=== PATIENT | male | born 1970 | race Caucasian/White ===

== ENCOUNTER 2016-11-30 12:59 | Emergency (ER) | payer MEDICAID, OTHER ==
[~2016-11-30] VITALS: Ht 190.5 cm; Wt 106.6 kg
[2016-11-30] MEDS ORDERED: NS 1,000 ML IV ONE (15:00)
[2016-11-30] MEDS ORDERED: KETOROLAC 30 MG/ML VIAL (J1885) IV ONE (15:00)
[2016-11-30] MEDS ORDERED: ONDANSETRON 4MG/2ML VIAL (J2405) IV ONE (15:00)
[2016-11-30 15:10] LABS: BASO % 0.7 % (0.0-1.0); EOS # 0.2 K/mm3 (0.0-0.50); EOS % 2.1 % (0.0-3.0); LARGE UNSTAINED CELL # 0.1 K/mm3 (0.0-0.4); LARGE UNSTAINED CELL % 0.8 % (0.0-4.0); LYMPH # 2.1 K/mm3 (1.5-4.5); LYMPH % 25.6 % (24.0-44.0); MEAN CORPUSCULAR HGB CONC 35.7 g/dl (32.0-36.5); MEAN CORPUSCULAR VOLUME 92.4 fl (80.0-96.0); MONO # 0.5 K/mm3 (0.0-0.8); MONO % 5.9 % (0.0-5.0); NEUTROPHILS # 5.1 K/mm3 (1.8-7.7); NEUTROPHILS % 64.9 % (36.0-66.0); PLATELET COUNT, AUTOMATED 282 k/mm3 (150-450); RED CELL DISTRIBUTION WIDTH 12.6 % (11.5-14.5); WHITE BLOOD COUNT 7.8 K/mm3 (4.0-10.0)
[2016-11-30 15:58] LABS: ALBUMIN 3.6 GM/DL (3.2-5.2); ALBUMIN/GLOBULIN RATIO 0.78 (1.00-1.93); ALKALINE PHOSPHATASE 75 U/L (45-117); AMYLASE 30 U/L (25-115); ANION GAP 17 MEQ/L (8-16); AST/SGOT 66 U/L (15-37); BILIRUBIN,DIRECT < 0.1 MG/DL (0.0-0.2); BLOOD UREA NITROGEN 8 MG/DL (7-18); CALCIUM LEVEL 8.2 MG/DL (8.5-10.1); CARBON DIOXIDE LEVEL 20 MEQ/L (21-32); CHLORIDE LEVEL 97 MEQ/L (98-107); GLOMERULAR FILTRATION RATE > 60.0 (>60); GLUCOSE, FASTING 118 MG/DL (70-105); POTASSIUM SERUM 3.8 MEQ/L (3.5-5.1); SODIUM LEVEL 134 MEQ/L (136-145); TOTAL PROTEIN 8.2 GM/DL (6.4-8.2)
[2016-11-30 16:33] LABS: ALT/SGPT 102 U/L (12-78)
[2016-11-30] MEDS ORDERED: ZOFR4TAB3 PO (17:12)
[2016-11-30 17:27] VITALS: BP 162/88
--- NOTE | 2016-12-01 12:31 | ECGEPIP ---
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
== END 2016-11-30 17:41 | disposition home or self-care (01) ==
LOC: M ED 15:10
DX: R10.84 Generalized abdominal pain (principal); R11.2 Nausea with vomiting, unspecified; R19.7 Diarrhea, unspecified; F10.20 Alcohol dependence, uncomplicated; F17.210 Nicotine dependence, cigarettes, uncomplicated
CPT/HCPCS: 80048; 80076; 81001; 82150; 82550; 82553; 83690; 85025; 93005; 96374; 96375; 99283; J1885; J2405

== ENCOUNTER → 2018-06-27 | Outpatient (REF) | payer SELFPAY, MEDICAID ==
[2018-06-27 12:22] LABS: ANION GAP 9 MEQ/L (8-16); BLOOD UREA NITROGEN 10 MG/DL (7-18); CALCIUM LEVEL 8.7 MG/DL (8.5-10.1); CARBON DIOXIDE LEVEL 29 MEQ/L (21-32); CHLORIDE LEVEL 99 MEQ/L (98-107); CHOLESTEROL LEVEL 250 MG/DL (<200); CHOLESTEROL RISK RATIO 5.681 (<5); GLOMERULAR FILTRATION RATE > 60.0 (>60); GLUCOSE, FASTING 92 MG/DL (70-100); HDL CHOLESTEROL 44 MG/DL (>40); LDL CHOLESTEROL 153 MG/DL (<100); NON-HDL-C 206 MG/DL; POTASSIUM SERUM 3.9 MEQ/L (3.5-5.1); SODIUM LEVEL 137 MEQ/L (136-145); TRIGLYCERIDES LEVEL 264 MG/DL (<150)
[2018-06-27 12:31] LABS: TOTAL 25(OH) VITAMIN D 11.5 NG/ML (30.0-100.0)
[2018-06-27 12:38] LABS: MALB URINE SIEMENS 27.9 MG/L
[2018-06-27 12:41] LABS: MAU/CREAT RATIO 19.1 MCG/MG (0.0-30.0)
== END ==
LOC: M SFHCPLAZ 08:58
DX: E55.9 Vitamin D deficiency, unspecified (principal); Z13.220 Encounter for screening for lipoid disorders; I10 Essential (primary) hypertension
CPT/HCPCS: 82306

== ENCOUNTER 2018-07-27 11:55 | Emergency (ER) | payer MEDICAID, OTHER, SELFPAY ==
[~2018-07-27] VITALS: Ht 190.5 cm; Wt 101.6 kg
[~2018-07-27 11:55] MED LIST: ZOFR4TAB14 PO
[2018-07-27] MEDS ORDERED: CHLO125TA PO (12:09)
[2018-07-27] MEDS ORDERED: MORPHINE 10 MG/ML 1ML VIAL (J2270) IM ONE (12:15)
[2018-07-27] MEDS ORDERED: PERC5TAB12 PO (12:46)
[2018-07-27 12:55] VITALS: BP 147/97
--- NOTE | 2018-07-27 14:59 | REP ---
LEFT RIB SERIES: Five views of left ribs performed. There is a nondisplaced fracture of the lateral left 7th rib. No other fracture or bone lesion is seen. An accompanying view of the chest demonstrates mild discoid atelectasis in the lung bases without infiltrate, pneumothorax, or pleural effusion. Heart is not enlarged. IMPRESSION: Nondisplaced fracture anterolateral left 7th rib. Electronically Signed by Charles Max MD 07/27/2018 08:04 P
[2018-07-29] MEDS ORDERED: LISI-542 PO (20:58)
[2018-07-29] MEDS ORDERED: NAPR-50 PO (20:59)
== END 2018-07-27 12:58 | disposition home or self-care (01) ==
LOC: M ED 11:55
DX: S22.39XA Fracture of one rib, unspecified side, initial encounter for closed fracture (principal); W19.XXXA Unspecified fall, initial encounter; I10 Essential (primary) hypertension; F17.210 Nicotine dependence, cigarettes, uncomplicated
CPT/HCPCS: 71101; 94010; 96372; 99284; J2270

== ENCOUNTER 2018-07-29 15:36 | Emergency (ER) | payer SELFPAY, OTHER, MEDICAID ==
[2018-07-29] MEDS: MORPHINE 10 MG/ML 1ML VIAL (J2270) IM (16:41)
[2018-07-29 17:31] LABS: BASO # 0.1 10^3/uL (0.0-0.2); BASO % 0.5 % (0.0-1.0); EOS % 0.3 % (0.0-3.0); HEMOGLOBIN 17.3 g/dl (13.5-17.5); IMMATURE GRANULOCYTE % 0.4 % (0-3.0); LYMPH # 2.4 10^3/uL (1.5-4.5); MEAN CORPUSCULAR HEMOGLOBIN 32.5 pg (27.0-33.0); MEAN CORPUSCULAR VOLUME 90.1 fl (80.0-96.0); MONO # 0.9 10^3/uL (0.0-0.8); MONO % 9.1 % (0.0-5.0); NEUTROPHILS # 6.5 10^3/uL (1.8-7.7); NEUTROPHILS % 65.7 % (36.0-66.0); PLATELET COUNT, AUTOMATED 101 10^3/uL (150-450); RED BLOOD COUNT 5.33 10^6/uL (4.30-6.10); RED CELL DISTRIBUTION WIDTH 11.7 % (11.5-14.5); WHITE BLOOD COUNT 9.9 10^3/uL (4.0-10.0)
[2018-07-29 17:42] LABS: INR 1.13; PROTHROMBIN TIME 14.7 SECONDS (12.1-14.4)
[2018-07-29 17:43] LABS: PARTIAL THROMBOPLASTIN TIME 34.4 SECONDS (25.4-37.6)
[2018-07-29 17:45] LABS: D-DIMER QUANT 3156.83 ng/ml (<500)
[2018-07-29 18:04] LABS: ANION GAP 15 MEQ/L (8-16); BLOOD UREA NITROGEN 10 MG/DL (7-18); CALCIUM LEVEL 8.9 MG/DL (8.5-10.1); CARBON DIOXIDE LEVEL 29 MEQ/L (21-32); CHLORIDE LEVEL 84 MEQ/L (98-107); CPK CREATINE PHOSPHOKINASE 262 U/L (39-308); CREATININE FOR GFR 1.13 MG/DL (0.70-1.30); GLOMERULAR FILTRATION RATE > 60.0 (>60); GLUCOSE, FASTING 117 MG/DL (70-100); MB/CK RELATIVE INDEX 1.22 (< OR =4); POTASSIUM SERUM 2.5 MEQ/L (3.5-5.1); SODIUM LEVEL 128 MEQ/L (136-145); TROPONIN I < 0.02 NG/ML (< 0.10)
[2018-07-29] MEDS ORDERED: ISOVUE-370 76% 100ML VIAL (Q9967) As Ordered (18:28)
[2018-07-29] MEDS: NS 1,000 ML IV (18:32)
[2018-07-29] MEDS: KCL 10MEQ/100ML SWI (KRUN) 10 MEQ in APPROPRIATE DILUENT 1 EA IV (18:32)
[2018-07-29 18:51] LABS: ALBUMIN 3.7 GM/DL (3.2-5.2); ALBUMIN/GLOBULIN RATIO 0.74 (1.00-1.93); ALKALINE PHOSPHATASE 96 U/L (45-117); ALT/SGPT 66 U/L (12-78); AST/SGOT 96 U/L (7-37); BILIRUBIN,DIRECT 0.6 MG/DL (0.0-0.2); BILIRUBIN,TOTAL 1.6 MG/DL (0.2-1.0); MAGNESIUM LEVEL 1.5 MG/DL (1.8-2.4); TOTAL PROTEIN 8.7 GM/DL (6.4-8.2)
[2018-07-29] MEDS: POTASSIUM CHLORIDE 10 MEQ SR TABLET PO (19:28)
[2018-07-29 19:52] LABS: APPEARANCE, URINE CLEAR (CLEAR); BACTERIA, URINE AUTO NEGATIVE (NEGATIVE); BILIRUBIN, URINE AUTO NEGATIVE (NEGATIVE); BLOOD, URINE BLOOD NEGATIVE (NEGATIVE); COLOR, URINE YELLOW (YELLOW); GLUCOSE, URINE (UA) AUTO NEGATIVE (NEGATIVE); KETONE, URINE AUTO TRACE mg/dL (NEGATIVE); LEUKOCYTE ESTERASE, URINE AUTO NEGATIVE (NEGATIVE); NITRITE, URINE AUTO NEGATIVE (NEGATIVE); PROTEIN, URINE AUTO NEGATIVE (NEGATIVE); RBC, URINE AUTO 0 /HPF (0-3); SPECIFIC GRAVITY URINE AUTO 1.025 (1.002-1.035); SQUAMOUS EPITHELIAL CELL UR AU 0 /HPF (0-6); WBC, URINE AUTO 0 /HPF (0-3)
[2018-07-29] MEDS: MORPHINE 4 MG/ML 1ML VIAL/SYRINGE (J2270) IV (19:55)
== END 2018-07-29 21:39 | disposition home or self-care (01) ==
LOC: M ED 15:36
DX: R07.9 Chest pain, unspecified (principal); R91.1 Solitary pulmonary nodule; E87.1 Hypo-osmolality and hyponatremia; E87.6 Hypokalemia; S22.32XA Fracture of one rib, left side, initial encounter for closed fracture; W19.XXXA Unspecified fall, initial encounter; Y92.89 Other specified places as the place of occurrence of the external cause; F17.210 Nicotine dependence, cigarettes, uncomplicated
CPT/HCPCS: J2270

== ENCOUNTER 2018-08-02 16:28 | Emergency (ER) | payer SELFPAY ==
[~2018-08-02] VITALS: Ht 190.5 cm; Wt 100.0 kg
[~2018-08-02 16:28] MED LIST changes: +CHLO125TA PO; +LISI-542 PO; +NAPR-49 PO; +PERC5TAB12 PO
[2018-08-02 17:05] LABS: BASO # 0.1 10^3/uL (0.0-0.2); BASO % 0.9 % (0.0-1.0); EOS # 0.1 10^3/uL (0.0-0.50); EOS % 1.7 % (0.0-3.0); HEMATOCRIT 42.8 % (42.0-52.0); HEMOGLOBIN 15.5 g/dl (13.5-17.5); LYMPH # 3.1 10^3/uL (1.5-4.5); LYMPH % 46.3 % (24.0-44.0); MEAN CORPUSCULAR HEMOGLOBIN 33.1 pg (27.0-33.0); MEAN CORPUSCULAR HGB CONC 36.2 g/dl (32.0-36.5); MEAN CORPUSCULAR VOLUME 91.5 fl (80.0-96.0); MONO # 0.8 10^3/uL (0.0-0.8); MONO % 11.6 % (0.0-5.0); NEUTROPHILS # 2.6 10^3/uL (1.8-7.7); NEUTROPHILS % 39.2 % (36.0-66.0); PLATELET COUNT, AUTOMATED 116 10^3/uL (150-450); RED BLOOD COUNT 4.68 10^6/uL (4.30-6.10); WHITE BLOOD COUNT 6.7 10^3/uL (4.0-10.0)
[2018-08-02 17:31] LABS: BLOOD UREA NITROGEN 9 MG/DL (7-18); CALCIUM LEVEL 8.1 MG/DL (8.5-10.1); CARBON DIOXIDE LEVEL 27 MEQ/L (21-32); CHLORIDE LEVEL 92 MEQ/L (98-107); CREATININE FOR GFR 0.87 MG/DL (0.70-1.30); GLOMERULAR FILTRATION RATE > 60.0 (>60); GLUCOSE, FASTING 108 MG/DL (70-100); POTASSIUM SERUM 2.8 MEQ/L (3.5-5.1); SODIUM LEVEL 131 MEQ/L (136-145)
[2018-08-02] MEDS ORDERED: POTASSIUM CHLORIDE 10 MEQ SR TABLET PO ONE ×2 (17:45→21:45)
[2018-08-02 17:47] LABS: MAGNESIUM LEVEL 1.7 MG/DL (1.8-2.4)
[2018-08-02] MEDS ORDERED: MAGNESIUM OXIDE 400 MG TAB (MAG-OX) PO ONE ×2 (18:30→21:45)
[2018-08-02 21:28] LABS: BLOOD UREA NITROGEN 8 MG/DL (7-18); CALCIUM LEVEL 8.6 MG/DL (8.5-10.1); CARBON DIOXIDE LEVEL 33 MEQ/L (21-32); CHLORIDE LEVEL 95 MEQ/L (98-107); CREATININE FOR GFR 0.83 MG/DL (0.70-1.30); GLOMERULAR FILTRATION RATE > 60.0 (>60); GLUCOSE, FASTING 86 MG/DL (70-100); MAGNESIUM LEVEL 1.6 MG/DL (1.8-2.4); POTASSIUM SERUM 3.2 MEQ/L (3.5-5.1); SODIUM LEVEL 137 MEQ/L (136-145)
[2018-08-02 21:34] VITALS: BP 131/91
[2018-08-02] MEDS ORDERED: K-TA10TA PO (21:40)
[2018-08-02] MEDS ORDERED: MAGN400T5 PO (21:40)
--- NOTE | 2018-08-03 13:12 | ECGEPIP ---
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
== END 2018-08-02 21:55 | disposition home or self-care (01) ==
LOC: M ED 16:28
DX: E87.6 Hypokalemia (principal); E83.42 Hypomagnesemia

== ENCOUNTER → 2018-08-02 | Outpatient (CLI) | payer SELFPAY ==
[2018-08-02 14:29] LABS: ANION GAP 11 MEQ/L (8-16); BLOOD UREA NITROGEN 11 MG/DL (7-18); CALCIUM LEVEL 8.6 MG/DL (8.5-10.1); CARBON DIOXIDE LEVEL 31 MEQ/L (21-32); CHLORIDE LEVEL 93 MEQ/L (98-107); CREATININE FOR GFR 1.02 MG/DL (0.70-1.30); GLOMERULAR FILTRATION RATE > 60.0 (>60); GLUCOSE, FASTING 100 MG/DL (70-100); POTASSIUM SERUM 2.8 MEQ/L (3.5-5.1); SODIUM LEVEL 135 MEQ/L (136-145)
== END ==
LOC: M LAB 13:17
DX: E87.6 Hypokalemia (principal); E83.42 Hypomagnesemia
CPT/HCPCS: 80048

== ENCOUNTER → 2018-08-29 | Outpatient (CLI) | payer SELFPAY ==
[~2018-08-29] MED LIST changes: +K-TA10TA PO; +MAGN400T5 PO; -NAPR-49 PO; +NAPR-50 PO
--- NOTE | 2018-08-30 04:45 | REP ---
Clinical: Elevated liver function tests. Technique: Max scale ultrasound using curved array transducer. Findings: The liver is increased echogenicity with poor through transmission suggesting fatty infiltration. No focal hepatic lesion identified. Pancreas is incompletely evaluated due to interposed bowel gas and subcentimeter pancreatic head cyst is suspected. The gallbladder is normal without gallstones, wall thickening or pericholecystic fluid. No biliary ductal dilatation is appreciated, and the common bile duct measures 6.2 mm diameter. The right kidney is normal in reniform shape without hydronephrosis and measures 12.6 x 7.0 x 6.4 cm. No ascites. Visualized portions of the abdominal aorta normal. Impression: 1. Diffuse fatty infiltration to the liver without focal hepatic lesion identified. 2. Limited evaluation of the pancreas with suspected subcentimeter pancreatic head cyst which is confirmed and unchanged when compared to MRI dated 12/14/2015. Electronically Signed by Mukund Ba MD 08/30/2018 04:37 A
== END ==
LOC: M RAD 07:44
PROVIDERS: ATTEND Student in an Organized Health Care Education/Training Program
DX: R93.2 Abnormal findings on diagnostic imaging of liver and biliary tract (principal); K76.0 Fatty (change of) liver, not elsewhere classified; R94.5 Abnormal results of liver function studies

== ENCOUNTER → 2018-09-06 | Outpatient (CLI) | payer SELFPAY ==
[2018-09-06 15:02] LABS: ALBUMIN 3.5 GM/DL (3.2-5.2); ALT/SGPT 30 U/L (12-78); BILIRUBIN,TOTAL 0.6 MG/DL (0.2-1.0); BLOOD UREA NITROGEN 7 MG/DL (7-18); CALCIUM LEVEL 8.5 MG/DL (8.5-10.1); CARBON DIOXIDE LEVEL 26 MEQ/L (21-32); CHLORIDE LEVEL 98 MEQ/L (98-107); CREATININE FOR GFR 0.82 MG/DL (0.70-1.30); FERRITIN 329 NG/ML (26-388); GLOMERULAR FILTRATION RATE > 60.0 (>60); GLUCOSE, FASTING 118 MG/DL (70-100); IRON (FE) 88 UG/DL (65-175); MAGNESIUM LEVEL 1.9 MG/DL (1.8-2.4); PERCENT SATURATION 26.3 % (19.7-50.0); POTASSIUM SERUM 3.7 MEQ/L (3.5-5.1); SODIUM LEVEL 134 MEQ/L (136-145); TOTAL IRON BINDING CAPACITY 334 UG/DL (250-450); TOTAL PROTEIN 7.8 GM/DL (6.4-8.2)
[2018-09-06 15:11] LABS: TOTAL 25(OH) VITAMIN D 67.5 NG/ML (30.0-100.0)
[2018-09-07 10:22] LABS: HEPATITIS B SURFACE ANTIGEN NEGATIVE (NEGATIVE)
[2018-09-07 10:49] LABS: HEPATITIS B CORE ANTIBODY IGM NEGATIVE (NEGATIVE); HEPATITIS C VIRUS ABY INDEX 0.1 INDEX (<0.8)
[2018-09-07 11:50] LABS: HEPATITIS A ANTIBODY IGM NEGATIVE (NEGATIVE)
== END ==
LOC: M LAB 13:56
PROVIDERS: ATTEND Student in an Organized Health Care Education/Training Program
DX: R94.5 Abnormal results of liver function studies (principal)

== ENCOUNTER → 2019-01-23 | Outpatient (CLI) | payer OTHER, MEDICAID ==
[~2019-01-23] MED LIST changes: -NAPR-50 PO; +NAPR-837 PO
[2019-01-23 16:27] LABS: HEMOGLOBIN A1c 5.7 %
[2019-01-23 16:32] LABS: CHOLESTEROL RISK RATIO 6.555 (<5)
[2019-01-23 16:40] LABS: MALB URINE SIEMENS 28.9 MG/L; MAU/CREAT RATIO 24.7 MCG/MG (0.0-30.0)
== END ==
LOC: M LAB 14:57
PROVIDERS: ATTEND Student in an Organized Health Care Education/Training Program
DX: E78.2 Mixed hyperlipidemia (principal); I10 Essential (primary) hypertension; Z13.1 Encounter for screening for diabetes mellitus

== ENCOUNTER → 2019-10-14 | Outpatient (REF) | payer MEDICAID, OTHER | LOC: M SFHCPLAZ 15:29 | PROVIDERS: ATTEND Family Medicine | DX: R35.8 Other polyuria (principal); Z53.9 Procedure and treatment not carried out, unspecified reason ==

== ENCOUNTER → 2019-11-04 | Outpatient (CLI) | payer OTHER ==
[2019-11-04 16:21] LABS: CREATININE, URINE 74.6 MG/DL; MALB URINE SIEMENS 53.3 MG/L; MAU/CREAT RATIO 71.4 MCG/MG (0.0-30.0)
[2019-11-04 17:45] LABS: HEMOGLOBIN A1c 6.4 %
== END ==
LOC: M LAB 15:15
PROVIDERS: ATTEND Student in an Organized Health Care Education/Training Program
DX: R35.8 Other polyuria (principal)

== ENCOUNTER → 2019-12-30 | Outpatient (REF) | payer OTHER ==
[~2019-12-30] MED LIST changes: +ATIV2TAB PO; +ATOR1TAB21; +DOXY50CA; +METF500T13; +OXAZ10CA3 PO
[2019-12-30 15:22] LABS: BLOOD UREA NITROGEN 6 MG/DL (7-18); CALCIUM LEVEL 8.6 MG/DL (8.5-10.1); CARBON DIOXIDE LEVEL 27 MEQ/L (21-32); CHLORIDE LEVEL 101 MEQ/L (98-107); CREATININE FOR GFR 0.94 MG/DL (0.70-1.30); GLOMERULAR FILTRATION RATE > 60.0 (>56); GLUCOSE, FASTING 112 MG/DL (70-100); POTASSIUM SERUM 3.9 MEQ/L (3.5-5.1); SODIUM LEVEL 136 MEQ/L (136-145)
[2019-12-30 17:21] LABS: HEMATOCRIT 43.5 % (42.0-52.0); HEMOGLOBIN 15.1 g/dl (13.5-17.5); MEAN CORPUSCULAR HEMOGLOBIN 31.5 pg (27.0-33.0); MEAN CORPUSCULAR HGB CONC 34.7 g/dl (32.0-36.5); MEAN CORPUSCULAR VOLUME 90.6 fl (80.0-96.0); WHITE BLOOD COUNT 7.4 10^3/uL (4.0-10.0)
[2019-12-30 17:25] LABS: ALBUMIN 3.6 GM/DL (3.2-5.2); ALT/SGPT 51 U/L (12-78); BILIRUBIN,TOTAL 0.8 MG/DL (0.2-1.0); BLOOD UREA NITROGEN 5 MG/DL (7-18); CALCIUM LEVEL 8.1 MG/DL (8.5-10.1); CARBON DIOXIDE LEVEL 25 MEQ/L (21-32); CHLORIDE LEVEL 101 MEQ/L (98-107); CHOLESTEROL LEVEL 212 MG/DL (<200); CHOLESTEROL RISK RATIO 4.416 (<5); CREATININE FOR GFR 0.89 MG/DL (0.70-1.30); GLOMERULAR FILTRATION RATE > 60.0 (>56); GLUCOSE, FASTING 101 MG/DL (70-100); HDL CHOLESTEROL 48 MG/DL (>40); LDL CHOLESTEROL 146 MG/DL (<100); NON-HDL-C 164 MG/DL; SODIUM LEVEL 134 MEQ/L (136-145); TOTAL PROTEIN 9.2 GM/DL (6.4-8.2); TRIGLYCERIDES LEVEL 91 MG/DL (<150)
[2019-12-30 18:27] LABS: MALB URINE SIEMENS 40.5 MG/L; MAU/CREAT RATIO 32.4 MCG/MG (0.0-30.0)
[2019-12-31 15:11] LABS: HEMOGLOBIN A1c 6.4 %
== END ==
LOC: M SFHCPLAZ 12:45
PROVIDERS: ATTEND Family Medicine
DX: R73.03 Prediabetes (principal)

== ENCOUNTER 2020-01-10 13:20 | Emergency (ER) | payer OTHER ==
[~2020-01-10] VITALS: Ht 190.5 cm; Wt 103.6 kg
[~2020-01-10 13:20] MED LIST changes: -ATIV2TAB PO; -ATOR1TAB21; -DOXY50CA; -METF500T13; -OXAZ10CA3 PO
[2020-01-10] MEDS ORDERED: ATOR1TAB21 (13:42)
[2020-01-10] MEDS ORDERED: DOXY50CA (13:42)
[2020-01-10] MEDS ORDERED: METF500T13 (13:42)
[2020-01-10] MEDS ORDERED: LORazepam 2 MG/ML VIAL IV STA (13:50)
[2020-01-10] MEDS ORDERED: LORazepam 2 MG/ML VIAL As Ordered ONE (13:59)
[2020-01-10 14:20] LABS: BASO # 0.1 10^3/uL (0.0-0.2); BASO % 0.8 % (0.0-1.0); EOS % 0.5 % (0.0-3.0); HEMATOCRIT 44.1 % (42.0-52.0); LYMPH # 1.1 10^3/uL (1.5-5.0); MEAN CORPUSCULAR HEMOGLOBIN 30.7 pg (27.0-33.0); MEAN CORPUSCULAR VOLUME 90.2 fl (80.0-96.0); MONO # 0.4 10^3/uL (0.0-0.8); MONO % 6.7 % (0.0-5.0); NEUTROPHILS # 4.3 10^3/uL (1.5-8.5); NEUTROPHILS % 72.8 % (36.0-66.0); PLATELET COUNT, AUTOMATED 116 10^3/uL (150-450); RED BLOOD COUNT 4.89 10^6/uL (4.30-6.10); WHITE BLOOD COUNT 5.9 10^3/uL (4.0-10.0)
[2020-01-10] MEDS ORDERED: NS 1,000 ML IV ONE ×2 (14:30→16:15)
[2020-01-10 14:46] LABS: BLOOD UREA NITROGEN 12 MG/DL (7-18); CALCIUM LEVEL 9.2 MG/DL (8.5-10.1); CARBON DIOXIDE LEVEL 22 MEQ/L (21-32); CHLORIDE LEVEL 97 MEQ/L (98-107); CREATININE FOR GFR 1.13 MG/DL (0.70-1.30); ETHYL ALCOHOL (ETHANOL) < 0.003 % (0.000-0.010); GLOMERULAR FILTRATION RATE > 60.0 (>56); GLUCOSE, FASTING 110 MG/DL (70-100); POTASSIUM SERUM 4.2 MEQ/L (3.5-5.1); SODIUM LEVEL 130 MEQ/L (136-145)
[2020-01-10 14:47] LABS: ALT/SGPT 58 U/L (12-78); BILIRUBIN,DIRECT 1.3 MG/DL (0.0-0.2); BILIRUBIN,TOTAL 3.2 MG/DL (0.2-1.0); CK-MB VALUE MASS 1.5 NG/ML (<3.6); CPK CREATINE PHOSPHOKINASE 156 U/L (39-308); LIPASE 288 U/L (73-393); MAGNESIUM LEVEL 1.4 MG/DL (1.8-2.4); MB/CK RELATIVE INDEX 0.96 (< OR =4); TOTAL PROTEIN 10.2 GM/DL (6.4-8.2); TROPONIN I < 0.02 NG/ML (< 0.10)
--- NOTE | 2020-01-10 15:26 | REP ---
REASON: Trauma to the left side. COMPARISON: 07/27/2018 which showed a 7th rib fracture. The frontal view of the chest is unchanged from the prior exam showing no acute disease. The previously described 7th rib fracture has healed. There is no evidence of an acute fracture or destructive osseous lesion. Electronically Signed by Leonard Vizcaino DO 01/10/2020 03:48 P
--- NOTE | 2020-01-10 15:47 | ECGEPIP ---
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
[2020-01-10] MEDS ORDERED: OXAZEPAM 15 MG CAP PO ONE (16:15)
[2020-01-10 16:29] LABS: AMPHETAMINES LEVEL URINE NEGATIVE (NEGATIVE); BARBITURATES URINE NEGATIVE (NEGATIVE); BENZODIAZEPINES URINE NEGATIVE (NEGATIVE); CANNABINOIDS URINE NEGATIVE (NEGATIVE); COCAINE METABOLITE URINE NEGATIVE (NEGATIVE); METHADONE URINE NEGATIVE (NEGATIVE); OPIATES URINE NEGATIVE (NEGATIVE); PHENCYCLIDINE URINE NEGATIVE (NEGATIVE)
[2020-01-10] MEDS ORDERED: MULTIVITAMIN -ADULT INJECTION 10 ML, THIAMINE INJection 100 MG, FOLIC ACID 1 MG in NS 1... IV ONE (17:15)
[2020-01-10] MEDS ORDERED: OXAZ10CA3 PO (19:00)
[2020-01-10 19:08] VITALS: BP 140/100
[2020-01-10] MEDS ORDERED: ATIV2TAB PO (19:19)
== END 2020-01-10 19:24 | disposition home or self-care (01) ==
LOC: M ED 13:20
DX: F10.239 Alcohol dependence with withdrawal, unspecified (principal); I10 Essential (primary) hypertension; E78.5 Hyperlipidemia, unspecified; Z79.899 Other long term (current) drug therapy; F17.210 Nicotine dependence, cigarettes, uncomplicated
CPT/HCPCS: 36415; 71101; 80048; 80076; 80307; 82550; 82553; 83690; 83735; 85025; 93005; 93041; 96361; 96365; 96375; 99285; G0480; J2060; J3411

== ENCOUNTER → 2020-03-27 | Emergency (ER) | payer OTHER ==
[~2020-03-27] MED LIST changes: +ATIV2TAB PO; +ATOR1TAB21; +BACT800T5 PO; +DOXY50CA; +ISOVUE-370 76% 100ML VIAL ONE; +METF500T13; +OMEP40CA97 PO; +OXAZ10CA3 PO
[2020-05-10 15:35] LABS: BASO % 0.4 % (0.0-1.0); EOS % 0.7 % (0.0-3.0); HEMATOCRIT 32.6 % (42.0-52.0); HEMOGLOBIN 11.4 g/dl (13.5-17.5); LYMPH % 23.2 % (24.0-44.0); MEAN CORPUSCULAR HEMOGLOBIN 34.4 pg (27.0-33.0); MEAN CORPUSCULAR VOLUME 98.5 fl (80.0-96.0); MONO # 0.3 10^3/uL (0.0-0.8); MONO % 6.7 % (0.0-5.0); NEUTROPHILS # 3.1 10^3/uL (1.5-8.5); NEUTROPHILS % 68.6 % (36.0-66.0); PLATELET COUNT, AUTOMATED 96 10^3/uL (150-450); RED BLOOD COUNT 3.31 10^6/uL (4.30-6.10); WHITE BLOOD COUNT 4.5 10^3/uL (4.0-10.0)
[2020-06-15 12:14] LABS: ALBUMIN 2.3 GM/DL (3.2-5.2); ALT/SGPT 81 U/L (12-78); BILIRUBIN,TOTAL 6.6 MG/DL (0.2-1.0); BLOOD UREA NITROGEN 2 MG/DL (7-18); CALCIUM LEVEL 7.6 MG/DL (8.5-10.1); CARBON DIOXIDE LEVEL 26 MEQ/L (21-32); CHLORIDE LEVEL 102 MEQ/L (98-107); CREATININE FOR GFR 0.84 MG/DL (0.70-1.30); ETHYL ALCOHOL (ETHANOL) 0.259 % (0.000-0.010); GLOMERULAR FILTRATION RATE > 60.0 (>56); GLUCOSE, FASTING 100 MG/DL (70-100); LIPASE 301 U/L (73-393); POTASSIUM SERUM 3.4 MEQ/L (3.5-5.1); SODIUM LEVEL 137 MEQ/L (136-145); TOTAL PROTEIN 7.6 GM/DL (6.4-8.2)
== END | disposition home or self-care (01) ==
LOC: M ED 22:14
DX: K42.9 Umbilical hernia without obstruction or gangrene (principal); K70.10 Alcoholic hepatitis without ascites; R16.2 Hepatomegaly with splenomegaly, not elsewhere classified; K76.0 Fatty (change of) liver, not elsewhere classified; E11.9 Type 2 diabetes mellitus without complications; I10 Essential (primary) hypertension; K21.9 Gastro-esophageal reflux disease without esophagitis; F10.20 Alcohol dependence, uncomplicated
CPT/HCPCS: 74177; 80048; 80076; 83690; 85025; 85049; 85055; 99284; G0480; Q9967

== ENCOUNTER 2020-03-29 13:40 | Inpatient (IN) | payer OTHER ==
[~2020-03-29 13:40] MED LIST changes: -BACT800T5 PO; -ISOVUE-370 76% 100ML VIAL ONE; -OMEP40CA97 PO
[2020-03-29] MEDS ORDERED: MORPHINE 4 MG/ML 1ML VIAL/SYRINGE (J2270) ONE (14:20)
[2020-03-29] MEDS ORDERED: GASTROGRAFIN SOLUTION 30ML (Q9963) ONE (14:20)
[2020-03-29] MEDS ORDERED: MORPHINE 4 MG/ML 1ML VIAL/SYRINGE (J2270) As Ordered ONE (14:29)
[2020-03-29] MEDS ORDERED: GASTROGRAFIN SOLUTION 30ML (Q9963) As Ordered ONE (14:53)
[2020-03-29] MEDS ORDERED: ISOVUE-370 76% 100ML VIAL As Ordered ONE (16:07)
[2020-03-30] MEDS ORDERED: THIAMINE 100 MG TAB ONE ×3 (00:29→21:00)
[2020-03-30] MEDS ORDERED: LORazepam 2 MG TAB As Ordered ONE (00:29)
[2020-03-30] MEDS ORDERED: THIAMINE 100 MG TAB As Ordered ONE ×2 (00:29→09:22)
[2020-03-30] MEDS ORDERED: METOPROLOL TART 25 MG TABLET ONE ×3 (00:29→21:00)
[2020-03-30] MEDS ORDERED: LORazepam 2 MG TAB ONE (00:29)
[2020-03-30] MEDS ORDERED: METOPROLOL TART 25 MG TABLET As Ordered ONE ×2 (00:30→09:23)
[2020-03-30] MEDS ORDERED: FOLIC ACID 1 MG TAB ONE (09:22)
[2020-03-30] MEDS ORDERED: MULTIVITAMINS/MINERALS THERAP 1 TAB As Ordered ONE (09:22)
[2020-03-30] MEDS ORDERED: MULTIVITAMINS/MINERALS THERAP 1 TAB ONE (09:22)
[2020-03-30] MEDS ORDERED: PANTOPRAZOLE 40MG TAB (PROTONIX) As Ordered ONE (09:22)
[2020-03-30] MEDS ORDERED: lisinopriL 20 MG TAB ONE (09:22)
[2020-03-30] MEDS ORDERED: PANTOPRAZOLE 40MG TAB (PROTONIX) ONE (09:22)
[2020-03-30] MEDS ORDERED: lisinopriL 20 MG TAB As Ordered ONE (09:22)
[2020-03-30] MEDS ORDERED: FOLIC ACID 1 MG TAB As Ordered ONE (09:23)
[2020-03-30] MEDS ORDERED: prednisoLONE (PRELONE) 15MG/5ML SYRUP UDC ONE (13:00)
[2020-03-30] MEDS ORDERED: amLODIPine 5 MG TAB ONE (14:26)
[2020-03-30] MEDS ORDERED: MORPHINE 2 MG/ML 1ML VIAL (J2270) ONE (15:40)
[2020-05-14 08:56] LABS: INR 1.85; PARTIAL THROMBOPLASTIN TIME 55.8 SECONDS (24.2-38.5); PROTHROMBIN TIME 21.7 SECONDS (12.5-14.3)
[2020-05-14 10:02] LABS: APPEARANCE, URINE CLEAR (CLEAR); BACTERIA, URINE AUTO NEGATIVE (NEGATIVE); BILIRUBIN, URINE AUTO 2+ (NEGATIVE); BLOOD, URINE BLOOD 2+ (NEGATIVE); COLOR, URINE AMBER (YELLOW); GLUCOSE, URINE (UA) AUTO NEGATIVE (NEGATIVE); KETONE, URINE AUTO NEGATIVE (NEGATIVE); LEUKOCYTE ESTERASE, URINE AUTO NEGATIVE (NEGATIVE); MUCUS, URINE SMALL (NEGATIVE); NITRITE, URINE AUTO NEGATIVE (NEGATIVE); PROTEIN, URINE AUTO NEGATIVE (NEGATIVE); RBC, URINE AUTO 10 /HPF (0-3); SPECIFIC GRAVITY URINE AUTO 1.012 (1.002-1.035); SQUAMOUS EPITHELIAL CELL UR AU 0 /HPF (0-6); WBC, URINE AUTO 4 /HPF (0-3)
[2020-05-14 18:37] LABS: BASO % 0.2 % (0.0-1.0); EOS % 0.4 % (0.0-3.0); HEMATOCRIT 33.7 % (42.0-52.0); HEMOGLOBIN 11.9 g/dl (13.5-17.5); LYMPH # 0.5 10^3/uL (1.5-5.0); LYMPH % 11.6 % (24.0-44.0); MEAN CORPUSCULAR HEMOGLOBIN 34.4 pg (27.0-33.0); MEAN CORPUSCULAR HGB CONC 35.3 g/dl (32.0-36.5); MEAN CORPUSCULAR VOLUME 97.4 fl (80.0-96.0); MONO # 0.3 10^3/uL (0.0-0.8); MONO % 7.2 % (0.0-5.0); NEUTROPHILS # 3.7 10^3/uL (1.5-8.5); NEUTROPHILS % 80.4 % (36.0-66.0); RED BLOOD COUNT 3.46 10^6/uL (4.30-6.10); WHITE BLOOD COUNT 4.6 10^3/uL (4.0-10.0)
[2020-05-14 18:44] LABS: PLATELET COUNT, AUTOMATED 84 10^3/uL (150-450)
[2020-05-20 09:32] LABS: HEMOGLOBIN 11.5 g/dl (13.5-17.5); MEAN CORPUSCULAR HEMOGLOBIN 34.2 pg (27.0-33.0); MEAN CORPUSCULAR HGB CONC 34.8 g/dl (32.0-36.5); MEAN CORPUSCULAR VOLUME 98.2 fl (80.0-96.0); PLATELET COUNT, AUTOMATED 74 10^3/uL (150-450); RED BLOOD COUNT 3.36 10^6/uL (4.30-6.10); WHITE BLOOD COUNT 3.9 10^3/uL (4.0-10.0)
[2020-05-21 09:12] LABS: HEMATOCRIT 34.2 % (42.0-52.0); HEMOGLOBIN 12.1 g/dl (13.5-17.5); MEAN CORPUSCULAR HEMOGLOBIN 34.7 pg (27.0-33.0); MEAN CORPUSCULAR HGB CONC 35.4 g/dl (32.0-36.5); RED BLOOD COUNT 3.49 10^6/uL (4.30-6.10); WHITE BLOOD COUNT 7.2 10^3/uL (4.0-10.0)
[2020-05-21 09:13] LABS: PLATELET COUNT, AUTOMATED 86 10^3/uL (150-450)
[2020-06-14 03:10] LABS: ALBUMIN 2.6 GM/DL (3.2-5.2); ALT/SGPT 78 U/L (12-78); BILIRUBIN,TOTAL 9.6 MG/DL (0.2-1.0); BLOOD UREA NITROGEN 3 MG/DL (7-18); CARBON DIOXIDE LEVEL 25 MEQ/L (21-32); CHLORIDE LEVEL 99 MEQ/L (98-107); CREATININE FOR GFR 0.99 MG/DL (0.70-1.30); GLOMERULAR FILTRATION RATE > 60.0 (>56); GLUCOSE, FASTING 106 MG/DL (70-100); LIPASE 208 U/L (73-393); POTASSIUM SERUM 3.7 MEQ/L (3.5-5.1); SODIUM LEVEL 135 MEQ/L (136-145); TOTAL PROTEIN 8.2 GM/DL (6.4-8.2)
[2020-06-23 04:12] LABS: ALBUMIN 2.5 GM/DL (3.2-5.2); ALT/SGPT 70 U/L (12-78); BILIRUBIN,TOTAL 10.4 MG/DL (0.2-1.0); BLOOD UREA NITROGEN 4 MG/DL (7-18); CALCIUM LEVEL 7.6 MG/DL (8.5-10.1); CARBON DIOXIDE LEVEL 23 MEQ/L (21-32); CHLORIDE LEVEL 101 MEQ/L (98-107); CREATININE FOR GFR 0.92 MG/DL (0.70-1.30); GLOMERULAR FILTRATION RATE > 60.0 (>56); GLUCOSE, FASTING 113 MG/DL (70-100); HEPATITIS A ANTIBODY IGM NEGATIVE (NEGATIVE); HEPATITIS B CORE ANTIBODY IGM NEGATIVE (NEGATIVE); HEPATITIS B SURFACE ANTIGEN NEGATIVE (NEGATIVE); HEPATITIS C VIRUS ABY INDEX 0.4 INDEX (<0.8); POTASSIUM SERUM 3.9 MEQ/L (3.5-5.1); SODIUM LEVEL 134 MEQ/L (136-145); TOTAL PROTEIN 7.8 GM/DL (6.4-8.2)
[2020-06-24 03:39] LABS: ALBUMIN 2.4 GM/DL (3.2-5.2); ALT/SGPT 61 U/L (12-78); BILIRUBIN,TOTAL 9.5 MG/DL (0.2-1.0); BLOOD UREA NITROGEN 7 MG/DL (7-18); CALCIUM LEVEL 7.8 MG/DL (8.5-10.1); CARBON DIOXIDE LEVEL 25 MEQ/L (21-32); CHLORIDE LEVEL 99 MEQ/L (98-107); CREATININE FOR GFR 0.95 MG/DL (0.70-1.30); GLOMERULAR FILTRATION RATE > 60.0 (>56); GLUCOSE, FASTING 70 MG/DL (70-100); POTASSIUM SERUM 3.1 MEQ/L (3.5-5.1); SODIUM LEVEL 134 MEQ/L (136-145); TOTAL PROTEIN 7.7 GM/DL (6.4-8.2)
== END 2020-03-31 06:08 | disposition left against medical advice (07) | DRG 280 ==
LOC: M ED 13:40 → M MS5PR 20:10
PROVIDERS: ADMIT Internal Medicine; ATTEND Internal Medicine
DX: K70.30 Alcoholic cirrhosis of liver without ascites (principal); I10 Essential (primary) hypertension; E11.9 Type 2 diabetes mellitus without complications; E78.00 Pure hypercholesterolemia, unspecified; Z79.899 Other long term (current) drug therapy

== ENCOUNTER 2020-04-24 17:06 | Emergency (ER) | payer OTHER ==
[~2020-04-24] VITALS: Ht 190.5 cm; Wt 98.6 kg
[2020-04-24] MEDS ORDERED: OMEP40CA97 PO (17:27)
[2020-04-24 18:55] LABS: BASO % 0.2 % (0.0-1.0); EOS % 0.2 % (0.0-3.0); HEMATOCRIT 31.3 % (42.0-52.0); HEMOGLOBIN 11.4 g/dl (13.5-17.5); LYMPH # 0.9 10^3/uL (1.5-5.0); LYMPH % 19.7 % (24.0-44.0); MEAN CORPUSCULAR HEMOGLOBIN 34.7 pg (27.0-33.0); MEAN CORPUSCULAR HGB CONC 36.4 g/dl (32.0-36.5); MEAN CORPUSCULAR VOLUME 95.1 fl (80.0-96.0); MONO # 0.4 10^3/uL (0.0-0.8); NEUTROPHILS % 70.7 % (36.0-66.0); RED BLOOD COUNT 3.29 10^6/uL (4.30-6.10); WHITE BLOOD COUNT 4.3 10^3/uL (4.0-10.0)
[2020-04-24 19:07] LABS: INR 1.92; PROTHROMBIN TIME 22.4 SECONDS (11.8-14.0)
[2020-04-24 19:09] LABS: PARTIAL THROMBOPLASTIN TIME 64.8 SECONDS (25.0-38.4)
--- NOTE | 2020-04-24 19:11 | REPVR ---
PROCEDURE INFORMATION: Exam: CT Head Without Contrast Exam date and time: 04/24/2020 6:57 PM Age: 49 years old Clinical indication: Injury or trauma; Fall; Initial encounter; Blunt trauma (contusions or hematomas) TECHNIQUE: Imaging protocol: Computed tomography of the head without contrast. Radiation optimization: All CT scans at this facility use at least one of these dose optimization techniques: automated exposure control; mA and/or kV adjustment per patient size (includes targeted exams where dose is matched to clinical indication); or iterative reconstruction. COMPARISON: CT Head without contrast 06/12/2013 3:47 PM FINDINGS: Brain: Mild volume loss. No acute intracranial hemorrhage, midline shift or mass effect. Ventricles: No hydrocephalus. Bones/joints: Unremarkable. No acute fracture. Sinuses: Opacification of the visualized left maxillary sinus. Mastoid air cells: Visualized mastoid air cells are well aerated. Soft tissues: Unremarkable. IMPRESSION: No acute intracranial abnormality. Electronically signed by: Dean Bell On 04/24/2020 19:11:13 PM
--- NOTE | 2020-04-24 19:14 | REPVR ---
PROCEDURE INFORMATION: Exam: CT Cervical Spine Without Contrast Exam date and time: 04/24/2020 6:57 PM Age: 49 years old Clinical indication: Injury or trauma; Fall; Initial encounter; Blunt trauma TECHNIQUE: Imaging protocol: Computed tomography images of the cervical spine without contrast. Radiation optimization: All CT scans at this facility use at least one of these dose optimization techniques: automated exposure control; mA and/or kV adjustment per patient size (includes targeted exams where dose is matched to clinical indication); or iterative reconstruction. COMPARISON: CT Spine,cervical w/o contrast 06/12/2013 3:47 PM FINDINGS: Vertebrae: Nonspecific straightening. Vertebral body height and AP alignment is preserved. Mild degenerative change about the dens. Mild to moderate prevertebral osteophytosis. No acute cervical spine fracture. Discs/Spinal canal/Neural foramina: No definite significant central canal stenosis within limitations of technique. Soft tissues: Unremarkable. Lungs: Lung apices are normal. Pleural space: No visible pneumothorax. Vasculature: Vascular calcification. IMPRESSION: No acute cervical spine fracture. Electronically signed by: Dean Bell On 04/24/2020 19:14:10 PM
[2020-04-24] MEDS ORDERED: NS 1,000 ML IV ONE (19:30)
[2020-04-24 19:35] LABS: ALT/SGPT 89 U/L (12-78); AMYLASE 63 U/L (25-115); BILIRUBIN,DIRECT 9.4 MG/DL (0.0-0.2); BLOOD UREA NITROGEN 4 MG/DL (7-18); CALCIUM LEVEL 7.7 MG/DL (8.5-10.1); CARBON DIOXIDE LEVEL 27 MEQ/L (21-32); CHLORIDE LEVEL 95 MEQ/L (98-107); CK-MB VALUE MASS < 1.0 NG/ML (<3.6); CPK CREATINE PHOSPHOKINASE 105 U/L (39-308); CREATININE FOR GFR 0.86 MG/DL (0.70-1.30); ETHYL ALCOHOL (ETHANOL) 0.184 % (0.000-0.010); GLOMERULAR FILTRATION RATE > 60.0 (>56); GLUCOSE, FASTING 87 MG/DL (70-100); LIPASE 251 U/L (73-393); MB/CK RELATIVE INDEX 0.95 (< OR =4); POTASSIUM SERUM 2.9 MEQ/L (3.5-5.1); SODIUM LEVEL 132 MEQ/L (136-145); TOTAL PROTEIN 7.8 GM/DL (6.4-8.2); TROPONIN I < 0.02 NG/ML (< 0.10)
[2020-04-24] MEDS ORDERED: POTASSIUM CHLORIDE 10 MEQ SR TABLET PO ONE (19:45)
--- NOTE | 2020-04-24 20:44 | REPVR ---
PROCEDURE INFORMATION: Exam: US Abdomen, Limited; Right Upper Quadrant Exam date and time: 04/24/2020 8:21 PM Age: 49 years old Clinical indication: Abdominal pain; Epigastric; Additional info: Biliary obstruct. Eval. TECHNIQUE: Imaging protocol: US abdomen. Real time ultrasound with image documentation. Limited exam focused on the right upper quadrant. COMPARISON: LIVER US 08/29/2018 7:57 AM FINDINGS: Limitations: Significant limited examination with poor penetration. Liver: There is hepatic steatosis with poor through transmission. Liver is suboptimally evaluated. No gross hepatic mass is visualized. Gallbladder: Distended gallbladder with biliary sludge and small stones. Provided gallbladder wall measurement of 2.6 mm. Gallbladder wall towards the fundus does appear subjectively thickened and edematous. Common bile duct: Common bile duct is not discretely visualized. Pancreas: Obscured. Right kidney: Right kidney measures 11.9 cm and is without hydronephrosis. IMPRESSION: 1. Distended gallbladder with biliary sludge and small stones. Provided gallbladder wall measurement of 2.6 mm which is near upper limits of normal. Gallbladder wall towards the fundus does appear thickened and edematous. Findings are concerning for acute cholecystitis. 2. Hepatic steatosis with poor through transmission, liver is poorly evaluated. 3. Common bile duct is not visualized. Electronically signed by: Dean Bell On 04/24/2020 20:43:28 PM
[2020-04-25 00:28] VITALS: BP 151/96
== END 2020-04-25 00:31 | disposition short-term general hospital (02) ==
LOC: M ED 17:06
DX: K75.9 Inflammatory liver disease, unspecified (principal); K83.1 Obstruction of bile duct; E87.6 Hypokalemia; E11.9 Type 2 diabetes mellitus without complications; I10 Essential (primary) hypertension; E78.5 Hyperlipidemia, unspecified; K70.10 Alcoholic hepatitis without ascites; F10.21 Alcohol dependence, in remission; Z79.84 Long term (current) use of oral hypoglycemic drugs; Z79.899 Other long term (current) drug therapy; Z87.891 Personal history of nicotine dependence
CPT/HCPCS: 70450; 72125; 76705; 80048; 80076; 82140; 82150; 82550; 82553; 83690; 85025; 85610; 85730; 93041; 99285; G0480

== ENCOUNTER 2020-05-19 20:07 | Emergency (ER) | payer OTHER ==
[~2020-05-19] VITALS: Ht 190.5 cm; Wt 94.5 kg
[~2020-05-19 20:07] MED LIST changes: +OMEP40CA97 PO
[2020-05-19] MEDS ORDERED: MORPHINE 4 MG/ML 1ML VIAL/SYRINGE (J2270) IV ONE ×2 (20:45→21:45)
[2020-05-19 21:33] LABS: BASO % 0.2 % (0.0-1.0); EOS % 0.2 % (0.0-3.0); HEMATOCRIT 33.5 % (42.0-52.0); HEMOGLOBIN 10.9 g/dl (13.5-17.5); LYMPH # 0.8 10^3/uL (1.5-5.0); LYMPH % 17.2 % (24.0-44.0); MEAN CORPUSCULAR HEMOGLOBIN 34.1 pg (27.0-33.0); MEAN CORPUSCULAR HGB CONC 32.5 g/dl (32.0-36.5); MEAN CORPUSCULAR VOLUME 104.7 fl (80.0-96.0); MONO # 0.3 10^3/uL (0.0-0.8); MONO % 6.8 % (0.0-5.0); NEUTROPHILS # 3.4 10^3/uL (1.5-8.5); NEUTROPHILS % 75.4 % (36.0-66.0); PLATELET COUNT, AUTOMATED 195 10^3/uL (150-450); WHITE BLOOD COUNT 4.5 10^3/uL (4.0-10.0)
[2020-05-19 21:43] LABS: INR 1.71; PROTHROMBIN TIME 20.4 SECONDS (12.5-14.3)
[2020-05-19 21:44] LABS: PARTIAL THROMBOPLASTIN TIME 57.6 SECONDS (24.2-38.5)
[2020-05-19] MEDS ORDERED: BACT800T5 PO (21:47)
[2020-05-19 21:57] LABS: ALBUMIN 1.9 GM/DL (3.2-5.2); ALT/SGPT 47 U/L (12-78); BILIRUBIN,DIRECT 4.8 MG/DL (0.0-0.2); BILIRUBIN,TOTAL 5.5 MG/DL (0.2-1.0); CK-MB VALUE MASS < 1.0 NG/ML (<3.6); CPK CREATINE PHOSPHOKINASE 54 U/L (39-308); LIPASE 129 U/L (73-393); MB/CK RELATIVE INDEX 1.85 (< OR =4); TOTAL PROTEIN 7.1 GM/DL (6.4-8.2); TROPONIN I < 0.02 NG/ML (< 0.10)
[2020-05-19] MEDS ORDERED: ISOVUE-370 76% 100ML VIAL As Ordered ONE (22:41)
[2020-05-19 23:03] VITALS: BP 119/76
--- NOTE | 2020-05-19 23:52 | REPVR ---
PROCEDURE INFORMATION: Exam: CT Abdomen And Pelvis With Contrast Exam date and time: 05/19/2020 11:05 PM Age: 49 years old Clinical indication: Abdominal pain; Localized; Lower; Additional info: Lower abdominal pain TECHNIQUE: Imaging protocol: Computed tomography of the abdomen and pelvis with intravenous contrast. Radiation optimization: All CT scans at this facility use at least one of these dose optimization techniques: automated exposure control; mA and/or kV adjustment per patient size (includes targeted exams where dose is matched to clinical indication); or iterative reconstruction. Contrast material: ISOVUE 370; Contrast volume: 100 ml; Contrast route: INTRAVENOUS (IV); COMPARISON: CT ABD/PEL W/IV ORAL CONTRAS 03/29/2020 4:12 PM FINDINGS: Lungs: There are atelectatic changes at the right lung base. Liver: Hepatic steatosis. Hepatomegaly measures 21 cm. There are several calcified granulomas involving the liver. Gallbladder and bile ducts: Distended gallbladder. Cholelithiasis. Pancreas: Normal. No ductal dilation. Spleen: Calcified granulomas are present involving the spleen. Splenomegaly measures 17 cm. Adrenals: Normal. No mass. Kidneys and ureters: Normal. No hydronephrosis. Stomach and bowel: There is nonspecific colonic fluid. There is thickening involving the ascending colon which is under distended. Appendix: Normal appendix. Intraperitoneal space: Small to moderate volume of ascites. Vasculature: There are several pelvic phleboliths. Vascular calcification. Lymph nodes: Unremarkable. No enlarged lymph nodes. Urinary bladder: Unremarkable as visualized. Reproductive: Unremarkable as visualized. Bones/joints: There are chronic left-sided rib fractures. Soft tissues: Small to moderate umbilical hernia containing fat and ascites. IMPRESSION: 1. Thickening involving the ascending colon, likely at least in part secondary to under distention. Component of nonspecific colitis not excluded. 2. Small to moderate volume of ascites predominantly about the liver. 3. Hepatosplenomegaly. 4. Cholelithiasis. 5. Additional findings as above. Electronically signed by: Dean Bell On 05/19/2020 23:51:43 PM
--- NOTE | 2020-05-20 18:14 | ED PDOC ---
Post-Departure Follow-Up ct abd/p faxed to dr ordonez for fu Javid Carlos MD May 20, 2020 18:14
== END 2020-05-20 00:26 | disposition home or self-care (01) ==
LOC: M ED 20:07
DX: K42.9 Umbilical hernia without obstruction or gangrene (principal); R18.8 Other ascites; K80.20 Calculus of gallbladder without cholecystitis without obstruction; K70.30 Alcoholic cirrhosis of liver without ascites; E11.9 Type 2 diabetes mellitus without complications; I10 Essential (primary) hypertension; E78.5 Hyperlipidemia, unspecified; R16.2 Hepatomegaly with splenomegaly, not elsewhere classified; Z79.899 Other long term (current) drug therapy
CPT/HCPCS: 74177; 80047; 80076; 82550; 82553; 83605; 83690; 85025; 85610; 85730; 86850; 86900; 86901; 93041; 96374; 96376; 99285; J2270; Q9967

== ENCOUNTER → 2020-05-27 | Outpatient (CLI) | payer OTHER ==
[~2020-05-27] MED LIST changes: +BACT800T5 PO
[2020-05-27 13:55] LABS: BASO % 0.8 % (0.0-1.0); EOS # 0.1 10^3/uL (0.0-0.5); EOS % 1.3 % (0.0-3.0); HEMATOCRIT 35.7 % (42.0-52.0); HEMOGLOBIN 12.1 g/dl (13.5-17.5); LYMPH # 1.5 10^3/uL (1.5-5.0); LYMPH % 40.3 % (24.0-44.0); MEAN CORPUSCULAR HEMOGLOBIN 34.5 pg (27.0-33.0); MEAN CORPUSCULAR HGB CONC 33.9 g/dl (32.0-36.5); MEAN CORPUSCULAR VOLUME 101.7 fl (80.0-96.0); MONO # 0.5 10^3/uL (0.0-0.8); MONO % 11.8 % (0.0-5.0); NEUTROPHILS # 1.7 10^3/uL (1.5-8.5); NEUTROPHILS % 45.5 % (36.0-66.0); PLATELET COUNT, AUTOMATED 181 10^3/uL (150-450); RED BLOOD COUNT 3.51 10^6/uL (4.30-6.10); WHITE BLOOD COUNT 3.8 10^3/uL (4.0-10.0)
[2020-05-27 14:06] LABS: INR 1.65; PROTHROMBIN TIME 19.8 SECONDS (12.5-14.3)
[2020-05-27 14:07] LABS: PARTIAL THROMBOPLASTIN TIME 54.2 SECONDS (24.2-38.5)
[2020-05-27 14:34] LABS: ALBUMIN 2.1 GM/DL (3.2-5.2); ALT/SGPT 43 U/L (12-78); BILIRUBIN,TOTAL 3.9 MG/DL (0.2-1.0); BLOOD UREA NITROGEN 4 MG/DL (7-18); CALCIUM LEVEL 8.5 MG/DL (8.5-10.1); CARBON DIOXIDE LEVEL 25 MEQ/L (21-32); CHLORIDE LEVEL 108 MEQ/L (98-107); CREATININE FOR GFR 0.75 MG/DL (0.70-1.30); GLOMERULAR FILTRATION RATE > 60.0 (>56); GLUCOSE, FASTING 78 MG/DL (70-100); POTASSIUM SERUM 3.6 MEQ/L (3.5-5.1); SODIUM LEVEL 140 MEQ/L (136-145); TOTAL PROTEIN 7.1 GM/DL (6.4-8.2)
[2020-05-27 14:38] LABS: VITAMIN B12 LEVEL 1680 PG/ML (247-911)
== END ==
LOC: M LAB 12:55
PROVIDERS: ATTEND Internal Medicine
DX: G90.09 Other idiopathic peripheral autonomic neuropathy (principal); R17 Unspecified jaundice

== ENCOUNTER 2020-06-02 15:07 | Emergency (ER) | payer OTHER ==
[~2020-06-02] VITALS: Ht 190.5 cm; Wt 87.3 kg
[2020-06-02 17:13] LABS: BASO % 0.8 % (0.0-1.0); EOS # 0.1 10^3/uL (0.0-0.5); EOS % 1.1 % (0.0-3.0); HEMOGLOBIN 11.9 g/dl (13.5-17.5); LYMPH # 1.3 10^3/uL (1.5-5.0); LYMPH % 24.3 % (24.0-44.0); MEAN CORPUSCULAR HEMOGLOBIN 33.8 pg (27.0-33.0); MEAN CORPUSCULAR VOLUME 99.4 fl (80.0-96.0); MONO # 0.8 10^3/uL (0.0-0.8); MONO % 15.3 % (0.0-5.0); NEUTROPHILS # 3.1 10^3/uL (1.5-8.5); NEUTROPHILS % 58.3 % (36.0-66.0); PLATELET COUNT, AUTOMATED 123 10^3/uL (150-450); RED BLOOD COUNT 3.52 10^6/uL (4.30-6.10); WHITE BLOOD COUNT 5.3 10^3/uL (4.0-10.0)
[2020-06-02 17:26] LABS: ALBUMIN 2.2 GM/DL (3.2-5.2); ALT/SGPT 44 U/L (12-78); BILIRUBIN,DIRECT 2.9 MG/DL (0.0-0.2); BILIRUBIN,TOTAL 3.5 MG/DL (0.2-1.0); BLOOD UREA NITROGEN 3 MG/DL (7-18); CALCIUM LEVEL 8.8 MG/DL (8.5-10.1); CARBON DIOXIDE LEVEL 24 MEQ/L (21-32); CHLORIDE LEVEL 104 MEQ/L (98-107); CREATININE FOR GFR 0.91 MG/DL (0.70-1.30); GLOMERULAR FILTRATION RATE > 60.0 (>56); GLUCOSE, FASTING 94 MG/DL (70-100); LIPASE 120 U/L (73-393); POTASSIUM SERUM 3.7 MEQ/L (3.5-5.1); SODIUM LEVEL 137 MEQ/L (136-145); TOTAL PROTEIN 7.2 GM/DL (6.4-8.2)
[2020-06-02] MEDS ORDERED: ISOVUE-370 76% 100ML VIAL As Ordered ONE (19:57)
--- NOTE | 2020-06-02 20:52 | REPVR ---
PROCEDURE INFORMATION: Exam: CT Abdomen And Pelvis With Contrast Exam date and time: 06/02/2020 8:07 PM Age: 49 years old Clinical indication: Abdominal pain; Generalized; Additional info: Abd pain TECHNIQUE: Imaging protocol: Computed tomography of the abdomen and pelvis with intravenous contrast. Radiation optimization: All CT scans at this facility use at least one of these dose optimization techniques: automated exposure control; mA and/or kV adjustment per patient size (includes targeted exams where dose is matched to clinical indication); or iterative reconstruction. Contrast material: ISOVJE 370; Contrast volume: 100 ml; Contrast route: INTRAVENOUS (IV); COMPARISON: CT ABD/PEL W/IV CONTRAST ONLY 05/19/2020 10:47 PM FINDINGS: Lungs: Linear atelectasis is seen at the right lung base. Liver: Liver is enlarged and decreased in density suggesting hepatic steatosis. Gallbladder and bile ducts: Gallbladder is distended and contains stones. No wall thickening. Pancreas: Pancreas appears normal. No focal mass or peripancreatic inflammation. Spleen: Spleen is diffusely enlarged, without focal lesion. Adrenals: Adrenal glands are normal in appearance. Kidneys and ureters: Kidneys appear normal, with no stone, solid mass or hydronephrosis. Stomach and bowel: Multiple fluid-filled loops of nondilated bowel with enhancing mucosa are present. No evidence of small bowel obstruction. Diverticular changes are present within the colon without inflammation. Appendix: Normal caliber appendix is identified, with no adjacent inflammation. Intraperitoneal space: Small volume of perihepatic free fluid is present. No localized collection. No pneumoperitoneum. Vasculature: No aortic aneurysm. Main portal and splenic veins enhance normally. Lymph nodes: . No enlarged lymph nodes. Urinary bladder: Urinary bladder appears normal. Bones/joints: Bony structures show no acute fracture or destructive process. IMPRESSION: 1. Appearance of small bowel and colon suggests inflammatory or infectious enteritis without obstruction. 2. Cholelithiasis and gallbladder dilatation without obvious wall thickening. 3. Hepatosplenomegaly and hepatic steatosis with small volume of perihepatic ascites Electronically signed by: Arnie Newman On 06/02/2020 20:52:02 PM
[2020-06-02 22:37] VITALS: BP 111/69
== END 2020-06-02 22:38 | disposition home or self-care (01) ==
LOC: M ED 15:07
DX: K52.9 Noninfective gastroenteritis and colitis, unspecified (principal); I10 Essential (primary) hypertension; E78.5 Hyperlipidemia, unspecified; K70.30 Alcoholic cirrhosis of liver without ascites; Z79.899 Other long term (current) drug therapy
CPT/HCPCS: 74177; 80048; 80076; 81001; 83690; 85025; 99284; Q9967

== ENCOUNTER → 2020-06-02 | Outpatient (CLI) | payer OTHER ==
[2020-06-02 15:45] LABS: INR 1.63; PROTHROMBIN TIME 19.6 SECONDS (12.5-14.3)
== END ==
LOC: M LAB 14:43
PROVIDERS: ATTEND Family Medicine
DX: R97.1 Elevated cancer antigen 125 [CA 125] (principal)

== ENCOUNTER → 2020-06-16 | Outpatient (CLI) | payer OTHER ==
[2020-06-16 13:18] LABS: ALBUMIN 2.5 GM/DL (3.2-5.2); BILIRUBIN,DIRECT 2.1 MG/DL (0.0-0.2); BILIRUBIN,TOTAL 2.7 MG/DL (0.2-1.0); TOTAL PROTEIN 7.3 GM/DL (6.4-8.2)
== END ==
LOC: M LAB 11:50
PROVIDERS: ATTEND Surgery
DX: K70.30 Alcoholic cirrhosis of liver without ascites (principal); K70.10 Alcoholic hepatitis without ascites; K42.9 Umbilical hernia without obstruction or gangrene

== ENCOUNTER 2020-07-13 18:15 | Emergency (ER) | payer OTHER ==
[2020-07-13] MEDS ORDERED: MORPHINE 4 MG/ML 1ML VIAL/SYRINGE (J2270) IV ONE (19:00)
[2020-07-13] MEDS ORDERED: NS 1,000 ML IV ONE (19:00)
[2020-07-13] MEDS ORDERED: ONDANSETRON 4MG/2ML VIAL IV ONE (19:00)
[2020-07-13 19:37] LABS: BASO % 0.5 % (0.0-1.0); EOS # 0.1 10^3/uL (0.0-0.5); EOS % 2.2 % (0.0-3.0); HEMATOCRIT 36.3 % (42.0-52.0); HEMOGLOBIN 12.1 g/dl (13.5-17.5); LYMPH % 24.2 % (24.0-44.0); MEAN CORPUSCULAR HEMOGLOBIN 30.6 pg (27.0-33.0); MEAN CORPUSCULAR HGB CONC 33.3 g/dl (32.0-36.5); MEAN CORPUSCULAR VOLUME 91.9 fl (80.0-96.0); MONO # 0.5 10^3/uL (0.0-0.8); MONO % 12.5 % (0.0-5.0); NEUTROPHILS # 2.4 10^3/uL (1.5-8.5); NEUTROPHILS % 60.4 % (36.0-66.0); PLATELET COUNT, AUTOMATED 100 10^3/uL (150-450); RED BLOOD COUNT 3.95 10^6/uL (4.30-6.10)
[2020-07-13 19:56] LABS: ALBUMIN 2.7 GM/DL (3.2-5.2); BILIRUBIN,DIRECT 1.3 MG/DL (0.0-0.2); BILIRUBIN,TOTAL 2.1 MG/DL (0.2-1.0); TOTAL PROTEIN 6.8 GM/DL (6.4-8.2)
[2020-07-13] MEDS ORDERED: ISOVUE-370 76% 100ML VIAL As Ordered ONE (20:14)
--- NOTE | 2020-07-13 20:48 | REPVR ---
PROCEDURE INFORMATION: Exam: CT Abdomen And Pelvis With Contrast Exam date and time: 07/13/2020 8:19 PM Age: 49 years old Clinical indication: Abdominal pain; Additional info: Umbilical hernia pain/ ? strangulated TECHNIQUE: Imaging protocol: Computed tomography of the abdomen and pelvis with intravenous contrast. Axial, coronal and sagittal reformatted images were created and reviewed. Radiation optimization: All CT scans at this facility use at least one of these dose optimization techniques: automated exposure control; mA and/or kV adjustment per patient size (includes targeted exams where dose is matched to clinical indication); or iterative reconstruction. Contrast material: ISOVUE 370; Contrast volume: 100 ml; Contrast route: INTRAVENOUS (IV); COMPARISON: CT ABD/PEL W/IV CONTRAST ONLY 06/02/2020 8:04 PM FINDINGS: Lungs: Mild linear stranding and groundglass at the lung bases, likely due to atelectasis and/or scarring. Liver: Diffuse hepatic steatosis. Subtle nodularity of the hepatic contour, suggesting cirrhosis. Gallbladder and bile ducts: Cholelithiasis and mild gallbladder distention. Pancreas: Unremarkable. Spleen: Mild splenomegaly. Coarse calcified splenic granulomata. Adrenal glands: Normal. No mass. Kidneys and ureters: No mass. No radiodense calculi. No hydronephrosis. Stomach and bowel: Mild, diffuse small bowel wall thickening, possibly secondary to 3rd spacing or nonspecific enteritis. No obstruction. No pneumatosis. Appendix: Normal. Intraperitoneal space: Small ascites. No organized collection. No free air. Vasculature: Unremarkable. No aneurysm. Lymph nodes: No pathologically enlarged lymph nodes. Urinary bladder: Unremarkable as visualized. Reproductive: Unremarkable. Bones/joints: No acute osseous abnormality. Soft tissues: Small umbilical hernia containing a nonobstructed loop of small bowel. IMPRESSION: 1. Small umbilical hernia containing a nonobstructed loop of small bowel. Incarceration cannot be excluded. 2. Findings suggestive of cirrhosis with splenomegaly and small ascites. 3. Mild, diffuse small bowel wall thickening, possibly secondary to 3rd spacing or nonspecific enteritis. 4. Additional findings, as above. Electronically signed by: Andrew Bello On 07/13/2020 20:48:11 PM
[2020-07-13] MEDS ORDERED: fentaNYL 100 MCG/2 ML INJECTION (J3010) IV ONE (21:15)
[2020-07-13] MEDS ORDERED: NORCO 5/325MG TABLET (BULK FOR ED) PO ONE (22:00)
[2020-07-13 22:10] VITALS: BP 143/93
--- NOTE | 2020-07-15 10:23 | ED PDOC ---
Post-Departure Follow-Up dr ordonez faxed formal report of ct abd/p for fu Javid Carlos MD Jul 15, 2020 10:23
== END 2020-07-13 22:15 | disposition home or self-care (01) ==
LOC: M ED 18:15
DX: K42.9 Umbilical hernia without obstruction or gangrene (principal); E11.9 Type 2 diabetes mellitus without complications; I10 Essential (primary) hypertension; E78.5 Hyperlipidemia, unspecified; K21.9 Gastro-esophageal reflux disease without esophagitis
CPT/HCPCS: 74177; 80047; 80076; 83605; 83690; 85025; 96361; 96374; 96375; 99284; J2270; J2405; J3010; Q9967

== ENCOUNTER → 2020-07-13 | Outpatient (CLI) | payer OTHER ==
[~2020-07-13] MED LIST changes: -DOXY50CA; +DOXY50CA PO
[2020-07-13 15:47] LABS: INR 1.78; PROTHROMBIN TIME 21.1 SECONDS (12.5-14.3)
== END ==
LOC: M LAB 14:57
PROVIDERS: ATTEND Internal Medicine Gastroenterology
DX: K75.9 Inflammatory liver disease, unspecified (principal)

== ENCOUNTER 2020-07-14 16:14 | Emergency (ER) | payer OTHER ==
[~2020-07-14] VITALS: Ht 190.5 cm; Wt 89.6 kg
[2020-07-14] MEDS ORDERED: PERCOCET 5MG/325MG TAB PO ONE (17:15)
[2020-07-14 17:39] LABS: BASO % 0.5 % (0.0-1.0); EOS # 0.1 10^3/uL (0.0-0.5); EOS % 2.4 % (0.0-3.0); HEMATOCRIT 35.6 % (42.0-52.0); HEMOGLOBIN 11.8 g/dl (13.5-17.5); LYMPH % 24.7 % (24.0-44.0); MEAN CORPUSCULAR HEMOGLOBIN 30.7 pg (27.0-33.0); MEAN CORPUSCULAR HGB CONC 33.1 g/dl (32.0-36.5); MEAN CORPUSCULAR VOLUME 92.7 fl (80.0-96.0); MONO # 0.5 10^3/uL (0.0-0.8); NEUTROPHILS # 2.6 10^3/uL (1.5-8.5); NEUTROPHILS % 61.2 % (36.0-66.0); PLATELET COUNT, AUTOMATED 107 10^3/uL (150-450); RED BLOOD COUNT 3.84 10^6/uL (4.30-6.10); WHITE BLOOD COUNT 4.2 10^3/uL (4.0-10.0)
--- NOTE | 2020-07-14 17:40 | REPVR ---
PROCEDURE INFORMATION: Exam: CT Abdomen And Pelvis Without Contrast Exam date and time: 07/14/2020 5:17 PM Age: 49 years old Clinical indication: Condition or disease; Other: Hernia; Patient HX: Prior yesterday with contrast; Additional info: Umbilical hernia TECHNIQUE: Imaging protocol: Computed tomography of the abdomen and pelvis without contrast. Radiation optimization: All CT scans at this facility use at least one of these dose optimization techniques: automated exposure control; mA and/or kV adjustment per patient size (includes targeted exams where dose is matched to clinical indication); or iterative reconstruction. COMPARISON: CT ABD/PEL W/IV CONTRAST ONLY 07/13/2020 8:15 PM FINDINGS: Lungs: Bibasilar atelectasis. Heart: Small pericardial effusion. Liver: There is enlargement of the left and caudate lobes of the liver as well as a lobular surface contour of the liver. Findings consistent with cirrhosis in this patient, stable in comparison to the prior study. Multiple small calcified hepatic granulomata. No significant focal abnormality demonstrated. Gallbladder and bile ducts: Hydropic gallbladder with mild thickening of the gallbladder wall which may be related to the presence of ascites. Clinical correlation to exclude cholecystitis suggested. Pancreas: Normal. No ductal dilation. Spleen: There is moderate splenomegaly with a maximum span of 16.7 centimeters. No focal abnormalities demonstrated. The spleen demonstrates punctate calcifications, consistent with remote granulomatous organism exposure. Adrenal glands: Normal. No mass. Kidneys and ureters: Nonobstructive calculus right kidney. Stomach and bowel: Moderate sized umbilical hernia containing a dilated loop of small bowel with fluid surrounding the bowel suggesting incarceration. There is dilatation of the afferent loops coursing into the hernia consistent with small-bowel obstruction. Efferent loops are decompressed. Appendix: No evidence of appendicitis. Intraperitoneal space: There is a small amount of free intraperitoneal fluid present. Vasculature: The aortoiliac vessels demonstrate mild atherosclerotic calcification. Lymph nodes: Unremarkable. No enlarged lymph nodes. Urinary bladder: Unremarkable as visualized. Reproductive: Unremarkable as visualized. Bones/joints: Mild central spinal stenosis L4-L5. Posterior disc protrusion L5-S1. Soft tissues: Recanalized paraumbilical veins with perigastric and perisplenic portosystemic collaterals. Impression IMPRESSION: 1. There is enlargement of the left and caudate lobes of the liver as well as a lobular surface contour of the liver. Findings consistent with cirrhosis in this patient, stable in comparison to the prior study. Multiple small calcified hepatic granulomata. No significant focal abnormality demonstrated. 2. Hydropic gallbladder with mild thickening of the gallbladder wall which may be related to the presence of ascites. Clinical correlation to exclude cholecystitis suggested. 3. There is a small amount of free intraperitoneal fluid present. 4. There is moderate splenomegaly with a maximum span of 16.7 centimeters. No focal abnormalities demonstrated. The spleen demonstrates punctate calcifications, consistent with remote granulomatous organism exposure. 5. Moderate sized umbilical hernia containing a dilated loop of small bowel with fluid surrounding the bowel suggesting incarceration. There is dilatation of the afferent loops coursing into the hernia consistent with small-bowel obstruction. Efferent loops are decompressed. Electronically signed by: Manjinder Cabrera On 07/14/2020 17:40:24 PM
[2020-07-14 17:50] LABS: INR 1.73; PROTHROMBIN TIME 20.6 SECONDS (12.5-14.3)
[2020-07-14 17:58] LABS: ALBUMIN 2.5 GM/DL (3.2-5.2); ALT/SGPT 20 U/L (12-78); BILIRUBIN,TOTAL 1.8 MG/DL (0.2-1.0); BLOOD UREA NITROGEN 5 MG/DL (7-18); CALCIUM LEVEL 8.7 MG/DL (8.5-10.1); CARBON DIOXIDE LEVEL 22 MEQ/L (21-32); CHLORIDE LEVEL 111 MEQ/L (98-107); CREATININE FOR GFR 0.84 MG/DL (0.70-1.30); ETHYL ALCOHOL (ETHANOL) < 0.003 % (0.000-0.010); GLOMERULAR FILTRATION RATE > 60.0 (>56); GLUCOSE, FASTING 99 MG/DL (70-100); LIPASE 102 U/L (73-393); POTASSIUM SERUM 3.5 MEQ/L (3.5-5.1); SODIUM LEVEL 142 MEQ/L (136-145); TOTAL PROTEIN 6.6 GM/DL (6.4-8.2)
[2020-07-14 19:08] VITALS: BP 153/92
[2020-07-14] MEDS ORDERED: NORCO 5/325MG TABLET (BULK FOR ED) PO ONE (19:15)
--- NOTE | 2020-07-15 10:21 | ED PDOC ---
Post-Departure Follow-Up dr ordonez faxed formal report of ct abd/p for fu Javid Carlos MD Jul 15, 2020 10:20
== END 2020-07-14 19:35 | disposition home or self-care (01) ==
LOC: M ED 16:14
DX: K42.9 Umbilical hernia without obstruction or gangrene (principal); R93.2 Abnormal findings on diagnostic imaging of liver and biliary tract; E11.9 Type 2 diabetes mellitus without complications; I10 Essential (primary) hypertension; K21.9 Gastro-esophageal reflux disease without esophagitis; F17.200 Nicotine dependence, unspecified, uncomplicated; Z79.899 Other long term (current) drug therapy
CPT/HCPCS: 74176; 80048; 80076; 83690; 85025; 85610; 99283; G0480

== ENCOUNTER → 2020-07-20 | Outpatient (CLI) | payer OTHER ==
[2020-07-20 15:42] LABS: ALBUMIN 2.9 GM/DL (3.2-5.2); BILIRUBIN,DIRECT 1.7 MG/DL (0.0-0.2); BILIRUBIN,TOTAL 3.3 MG/DL (0.2-1.0); TOTAL PROTEIN 6.8 GM/DL (6.4-8.2)
== END ==
LOC: M LAB 14:22
PROVIDERS: ATTEND Surgery
DX: K70.30 Alcoholic cirrhosis of liver without ascites (principal); K70.10 Alcoholic hepatitis without ascites; K42.9 Umbilical hernia without obstruction or gangrene

== ENCOUNTER → 2020-08-10 | Outpatient (CLI) | payer OTHER ==
[2020-08-10 12:07] LABS: ALBUMIN 2.9 GM/DL (3.2-5.2); ALT/SGPT 20 U/L (12-78); BILIRUBIN,TOTAL 1.7 MG/DL (0.2-1.0); BLOOD UREA NITROGEN 5 MG/DL (7-18); CALCIUM LEVEL 9.1 MG/DL (8.5-10.1); CARBON DIOXIDE LEVEL 27 MEQ/L (21-32); CHLORIDE LEVEL 107 MEQ/L (98-107); CREATININE FOR GFR 0.77 MG/DL (0.70-1.30); GLOMERULAR FILTRATION RATE > 60.0 (>56); GLUCOSE, FASTING 90 MG/DL (70-100); POTASSIUM SERUM 3.7 MEQ/L (3.5-5.1); SODIUM LEVEL 140 MEQ/L (136-145); TOTAL PROTEIN 7.4 GM/DL (6.4-8.2)
== END ==
LOC: M LAB 10:47
PROVIDERS: ATTEND Family Medicine
DX: K70.31 Alcoholic cirrhosis of liver with ascites (principal)

== ENCOUNTER → 2020-08-10 | Outpatient (REF) | payer OTHER | LOC: M SFHCPLAZ 10:34 | PROVIDERS: ATTEND Family Medicine | DX: K70.31 Alcoholic cirrhosis of liver with ascites (principal) ==

== ENCOUNTER 2020-09-01 15:13 | Emergency (ER) | payer OTHER ==
[2020-09-01] MEDS ORDERED: FURO40TA2 (15:25)
[2020-09-01] MEDS ORDERED: AMIT25TA17 (15:25)
[2020-09-01] MEDS ORDERED: ONDA-83 (15:25)
[2020-09-01] MEDS ORDERED: SPIR100T3 (15:25)
[2020-09-01] MEDS: HYDROMORPHONE HCL 0.5 MG/ 0.5 ML SYRINGE (J1170 PER 1) IV PRN ×2 (15:44→15:46)
[2020-09-01] MEDS ORDERED: NS 500 ML IV ONE (15:45)
[2020-09-01 16:09] LABS: BASO % 0.9 % (0.0-1.0); EOS % 0.9 % (0.0-3.0); HEMATOCRIT 34.9 % (42.0-52.0); HEMOGLOBIN 11.7 g/dl (13.5-17.5); LYMPH # 0.7 10^3/uL (1.5-5.0); LYMPH % 19.4 % (24.0-44.0); MEAN CORPUSCULAR HEMOGLOBIN 31.3 pg (27.0-33.0); MEAN CORPUSCULAR HGB CONC 33.5 g/dl (32.0-36.5); MEAN CORPUSCULAR VOLUME 93.3 fl (80.0-96.0); MONO # 0.3 10^3/uL (0.0-0.8); MONO % 8.9 % (0.0-5.0); NEUTROPHILS # 2.4 10^3/uL (1.5-8.5); NEUTROPHILS % 69.6 % (36.0-66.0); PLATELET COUNT, AUTOMATED 113 10^3/uL (150-450); RED BLOOD COUNT 3.74 10^6/uL (4.30-6.10); WHITE BLOOD COUNT 3.5 10^3/uL (4.0-10.0)
--- OUTSIDE RECORDS SUMMARY | 2020-09-01 16:23 | CCD ---
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 Role Phone Taras Baker Unavailable PROBLEMS Type Condition ICD9-CM Code [id number] Code Onset Dates Condition S tatus SNOMED Code Notes Problem Headache in back of head R51 Active 709966 Problem Alcohol abuse F10.10 Active 17636797 Problem Seasonal allergic rhinitis due to other allergic trigger J30.89 Active 590286092 Problem Depression, unspecified depression type F32.9 Active 07607767 Problem Vitamin D deficiency E55.9 Active 76503611 Problem Mixed hyperlipidemia E78.2 Active 750375434 Problem Essential hypertension I10 Active 64493474 Problem Hyperbilirubinemia E80.6 Active 41714663 Problem Sinus congestion R09.81 Active 59103102 Problem Alcohol dependence with unspecified alcohol-induced disord er F10.29 Active 40474770 Problem Hypomagnesemia E83.42 Active 684092198 Problem Thrombocytopenia D69.6 Active 876121347 Problem Fatty liver K76.0 Active 981301421 ALLERGIES No Known Allergies ENCOUNTERS from 1970 to 2020-06-30 Encounter Location Date Provider Diagnosis [address] [address] Jun, Taras Baker Essential hypertension I10 IMMUNIZATIONS Vaccine Route Administration Date Status Influenza (6mo & up) Fluzone IM Intramuscular Jun 27, 2018 Ad ministered Hepatitis B Adult 1.0mL (Engerix-B) IM Intramuscular Jun 13 3 Administered SOCIAL HISTORY Tobacco Use: Social History Observation Description Date Details (start date - stop date) Former Smoker Sex Assigned At : Social History Observation Description Sex Assigned At Unknown Education: Question Answer Notes Level of Education: High School Audit Question Answer Notes Total Score: 1 Interpretation: Alcohol Education Jehovah'S Witness: Question Answer Notes Jehovah'S Witness 13 Nondenominational Sexual Hx: Question Answer Notes Had sex in the last 12 months (vaginal, oral, or anal)? No Have you ever had an STD? No Drug and Alcohol Question Answer Notes Total Score: 0 Interpretation: No problems reported BMI Care Goal Follow-Up Question Answer Notes Above Normal BMI Follow-Up Giving encouragement to exercise Tobacco Use: Question Answer Notes Are you a: former smoker How long has it been since you last smoked? 3-6 months REASON FOR REFERRAL No Information VITAL SIGNS No information MEDICATIONS Medication SIG (Take, Route, Frequency, Duration) Start Date En d Date Status Omeprazole 20 MG 1 tablet Orally Once a day Active Phytonadione 5 MG 1 tablet Orally Once a day starting on for 3 days May, Not-Taking Naltrexone HCl 50 MG 1 tablet Orally Once a day for 30 day(s) Active Amitriptyline HCl 10 MG 1 tablet at bedtime Orally Once a da y for 30 day(s) May, Active Lisinopril 20 MG 1 tablet Orally Once a day for 30 day(s) Jan, 019 Active Metformin HCl 500 MG 1 tablet with a meal Orally bid for 30 day(s) Not-Taking Atorvastatin Calcium 20 MG 1 tablet Orally Once a day for 30 day(s) Jan, Active Doxycycline Hyclate 50 MG 1 capsule Orally every 12 hrs for 30 Days December, Active Meclizine HCl 25 MG 1 tablet as needed Orally Once a day for 30 day (s) Active PROCEDURES No Information RESULTS No Results REASON FOR VISIT Lisinopril 20 MG Tablet MEDICAL (GENERAL) HISTORY Type Description Date Medical History Hypertension Medical History Anxiety Medical History Depression Medical History History of alcohol abuse Medical History Tobacco dependency Medical History Ance Surgical History Denies surgery Hospitalization History Rehab 12/2015 Goals Section No Information Health Concerns No Information MEDICAL EQUIPMENT No Information MENTAL STATUS No Information FUNCTIONAL STATUS No Information ASSESSMENTS Encounter Date Diagnosis Notes Jun, Essential hypertension (ICD-10 - I10) PLAN OF TREATMENT Medication Medication Name Sig Start Date Stop Date Lisinopril 20 MG 1 tablet Orally Once a day for 30 day(s) Jan Amitriptyline HCl 10 MG 1 tablet at bedtime Orally Once a da y for 30 day(s) May, Next Appt Details Provider Name:Taras Baker, 2020-07-20 10:00:00 AM, [address] [facility], [facility], [address], Insurance Providers Payer Name Payer Address Payer Phone Insured Name Patient Relati onship to Insured Coverage Start Date Coverage End Date [facility] CORPORATE CLAIMS DEPT [address] [facility] [phone] SUZANNE GONZÁLES self
--- OUTSIDE RECORDS SUMMARY | 2020-09-01 16:23 | CCD | Continuity of Care Document ---
Author Author CHRISTOPHER SMILEY, Calvin Henning Organization Unknown Address [address] [facility] [address] [facility] [address] [place] [address] Phone [phone] Care Team Providers Care Chemical Laboratory Scientist Name Role Phone Taras Bender D.O. Unavailable Problems Active Problems Provider Date Essential hypertension Oumar Rubio MD Onset: 020 Social History Type Date Description Comments Sex Unknown ETOH Use Has consumed alcohol in the past Recreational Drug Use Denies Drug Use Tobacco Use Start: Unknown End: Unknown Patient is a former smoker 07/2019 Allergies, Adverse Reactions, Alerts Description No Known Drug Allergies Medications Active Medications SIG Qnty Indications Ordering Provide r Date Lisinopril 20mg Tablets Take 1 Tablet By Mouth Every Day Unknown Omeprazole 20mg Capsules DR 1 by mouth twice a day Unknown Doxycycline Hyclate 100mg Capsules 1 by mouth qd Unknown Hydrocortisone 5mg Tablets Take 1 Tablet By Mouth Every Day Unknown Immunizations Description No Information Available Vital Signs Date Vital Result Comment 06/16/2020 10:55am BP Systolic 96 mmHg BP Diastolic 65 mmHg Heart Rate 98 /min Height 74 inches 6'2" Weight 198.12 lb BMI (Body Mass Index) 25.4 kg/m2 [place] Body Weight 190 lb Weight 89.870 kg 05/19/2020 1:50pm BP Systolic 100 mmHg BP Diastolic 68 mmHg Height 74 inches 6'2" Weight 208.00 lb BMI (Body Mass Index) 26.7 kg/m2 [place] Body Weight 190 lb Weight 94.349 kg Results Test Acquired Date Facility Test Result H/L Range Note CBC With Differential 05/27/2020 [facility] Main Lab [address] [place] [address] [phone] White Blood Count 3.8 10 Low 4.0-10.0 Red Blood Count 3.51 10 Low 4.30-6.10 Hemoglobin 12.1 g/dL Low 13.5-17.5 Hematocrit 35.7 % Low 42.0-52.0 Mean Corpuscular Volume 101.7 fl High 80.0-96.0 Mean Corpuscular Hemoglobin 34.5 pg High 27.0-33.0 Mean Corpuscular HGB Conc 33.9 g/dL Normal 32.0-36.5 Red Cell Distribution Width 13.2 % Normal 11.5-14.5 Platelet Count, Automated 181 10 Normal 150-450 Neutrophils % 45.5 % Normal 36.0-66.0 Lymph % 40.3 % Normal 24.0-44.0 [place] % 11.8 % High 0.0-5.0 Eos % 1.3 % Normal 0.0-3.0 Baso % 0.8 % Normal 0.0-1.0 Immature Granulocyte % 0.3 % Normal 0-3.0 Nucleated Red Blood Cell % 0.0 % Normal 0-0 Neutrophils # 1.7 10 Normal 1.5-8.5 Lymph # 1.5 10 Normal 1.5-5.0 [place] # 0.5 10 Normal 0.0-0.8 Eos # 0.1 10 Normal 0.0-0.5 Baso # 0.0 10 Normal 0.0-0.2 Prothrombin Time/Inr 05/27/2020 [facility] Main Lab [address] [place] [address] [phone] Prothrombin Time 19.8 seconds High 12.5-14.3 Inr 1.65 Normal 1 Laboratory test finding 05/27/2020 [facility] Main Lab [address] [place] [address] [phone] Partial Thromboplastin Time 54.2 seconds High 24 .2-38.5 Comprehensive Metabolic Profil 05/27/2020 [facility] Main Lab [address] [place] [address] [phone] Glucose, Fasting 78 mg/dL Normal 70-100 Blood Urea Nitrogen 4 mg/dL Low 7-18 Creatinine For GFR 0.75 mg/dL Normal 0.70-1.30 Glomerular Filtration Rate > 60.0 Normal >56 2 Sodium Level 140 mEq/L Normal 136-145 Potassium Serum 3.6 mEq/L Normal 3.5-5.1 Chloride Level 108 mEq/L High 98-107 Carbon Dioxide Level 25 mEq/L Normal 21-32 Anion Gap 7 mEq/L Low 8-16 Calcium Level 8.5 mg/dL Normal 8.5-10.1 Ast/Sgot 93 U/L High 7-37 Alt/SGPT 43 U/L Normal 12-78 Alkaline Phosphatase 131 U/L High 45-117 Bilirubin,Total 3.9 mg/dL High 0.2-1.0 Total Protein 7.1 GM/DL Normal 6.4-8.2 Albumin 2.1 GM/DL Low 3.2-5.2 Albumin/Globulin Ratio 0.4 Normal Laboratory test finding 05/27/2020 [facility] Main Lab [address] [place], [place] [id number] [phone] Vitamin B12 Level 1680 pg/mL High 247-911 3 1 THERAPUTIC HUMAN INR VALUES INDICATIONS NORMAL RANGES PROPHYLAXIS/TREATMENT OF: VENOUS THROMBOSIS 2.0-3.0 PULMONARY EMBOLISM 2.0-3.0 PREVENTION OF SYSTEMIC EMBOLISM FROM: TISSUE HEART VALVES 2.0-3.0 ACUTE MYOCARDIAL INFARCTION 2.0-3.0 VALVULAR HEART DISEASE 2.0-3.0 ATRIAL FIBRILLATION 2.0-3.0 MECHANICAL VALVES(HIGH RISK) 2.5-3.5 RECURRENT MYOCARDIAL INFARCTION 2.5-3.5 2 Units are mL/min/1.73 m2 Chronic Kidney Disease Staging per NKF: Stage I & II GFR >=60 Normal to Mildly Decreased Stage III GFR 30-59 Moderately Decreased Stage IV GFR 15-29 Severely Decreased Stage V GFR <15 Very Little GFR Left ESRD GFR <15 on CMM OPERATOR 3 VITAMIN B12 NORMAL RANGE NORMAL 247 - 911 PG/ML INDETERMINATE 211 - 246 PG/ML DEFICIENT LESS THAN 211 PG/ML Procedures Description No Information Available Medical Devices Description No Information Available Encounters Description No Information Available Assessments Date Code Description Provider 05/19/2020 K70.30 Alcoholic cirrhosis of liver wit hout ascites Oumar Rubio MD 05/19/2020 K70.10 Alcoholic hepatitis without asci laly Oumar Rubio MD 05/19/2020 K42.9 Umbilical hernia without obstruc tion or gangrene Oumar Rubio MD Plan of Treatment 05/19/2020 - Oumar Rubio MD* K70.30 Alcoholic cirrhosis of liver without ascites * K70.10 Alcoholic hepatitis without ascites* Comments:* Patient is recovering from recent active alcoholic hepatitis and still remains jaundiced. He was briefly admitted for supportive care at [facility]. He is in no condition to have his umbilical hernia repaired at this time. He will need to have his liver recover fully. He has stopped drinking alcohol according to him and this should certainly help. * K42.9 Umbilical hernia without obstruction or gangrene* Comments:* Though he is symptomatic from his umbilical hernia and seems to be partially inc arcerated or nonreducible. There is no signs of acute incarceration or inflammation at the area and thus, does not need urgent repair at this time. He will need to recover from this bout of acute alcoholic hepatitis before we can consider him for repair. I'll try to get some of the records from [facility] with regards to the studies and workup that has been done. I'll have him be seen a month from now for follow-up. I'll repeat his LFTs. Functional Status Description No Information Available Mental Status Description No Information Available Referrals Description No Information Available
--- OUTSIDE RECORDS SUMMARY | 2020-09-01 16:23 | CCD ---
Author Author [facility] Organization [facility] Address Unknown Phone Unavailable Care Team Providers Care Eye Specialist Name Role Phone Taras Baker Unavailable PROBLEMS Type Condition ICD9-CM Code [id number] Code Onset Dates Condition S tatus SNOMED Code Notes Problem Alcohol abuse F10.10 Active 26844453 Problem Headache in back of head R51 Active 270693 Problem Essential hypertension I10 Active 57701958 Problem Sinus congestion R09.81 Active 27516786 Problem Seasonal allergic rhinitis due to other allergic trigger J30.89 Active 729558471 Problem Thrombocytopenia D69.6 Active 600397930 Problem Alcohol dependence with unspecified alcohol-induced disord er F10.29 Active 61643683 Problem Ascites due to alcoholic cirrhosis K70.31 Activ e 9200098736720580 Problem Vitamin D deficiency E55.9 Active 34674377 Problem Peripheral polyneuropathy G62.9 Active 327255 00 Problem Depression, unspecified depression type F32.9 Active 47518872 Problem Hypomagnesemia E83.42 Active 124119757 Problem Mixed hyperlipidemia E78.2 Active 653826467 Problem Fatty liver K76.0 Active 615241263 Problem Hyperbilirubinemia E80.6 Active 70676209 ALLERGIES No Known Allergies ENCOUNTERS from 1970 to 2020-08-28 Encounter Location Date Provider Diagnosis [address] [address] Aug, Taras Baker Peripheral polyneuropathy G62.9 IMMUNIZATIONS Vaccine Route Administration Date Status Influenza [...] Notes Total Score: 1 Interpretation: Alcohol Education Roman Catholic: Question Answer Notes Roman Catholic 13 Roman Catholic Sexual Hx: Question Answer Notes Had sex in the last 12 months (vaginal, oral, or anal)? No Have you ever had an STD? No Drug and Alcohol Question Answer Notes Total Score: 0 Interpretation: No problems reported Alcohol Screening: Question Answer Notes Did you have a drink containing alcohol in the past year? Ye s Points 0 Interpretation Negative BMI Care Goal Follow-Up Question Answer Notes Above Normal BMI Follow-Up Giving encouragement to exercise Tobacco Use: Question Answer Notes Are you a: former smoker How long has it been since you last smoked? 3-6 months REASON FOR REFERRAL No Information VITAL SIGNS No information MEDICATIONS Medication SIG (Take, Route, Frequency, Duration) Notes Start Da te End Date Status Ondansetron HCl 4 MG 1 tablet Orally TIDPRN for 14 days Jul, Active Meclizine HCl 25 MG 1 tablet as needed Orally Once a day for 30 day(s ) Active Atorvastatin Calcium 20 MG 1 tablet Orally Once a day for 30 Active Spironolactone 100 MG 1 tablet Orally Once a day for 30 day(s) Jul, Active Omeprazole 20 MG 1 tablet Orally Once a day Active Phytonadione 5 MG 1 tablet Orally Once a day starting on 05/29/20 20 for 3 days May, Not-Taking Naltrexone HCl 50 MG 1 tablet Orally Once a day for 30 day(s) Active Doxycycline Hyclate 50 MG 1 capsule Orally Once a day 13 2019 Active Furosemide 40 MG 1 tablet Orally Once a day for 30 day(s) Jul, Active Amitriptyline HCl 25 MG 1 tablet at bedtime Orally Once a day fo r 30 day(s) Jul, Active Metformin HCl 500 MG 1 tablet with a meal Orally bid for 30 day(s) Not-Taking Abdominal Binder/Elastic Large - as directed for 999 days Aug, Active PROCEDURES No Information RESULTS No Results REASON FOR VISIT Amitriptyline 10MG MEDICAL (GENERAL) HISTORY Type Description Date Medical History Hypertension Medical History Anxiety Medical History Depression Medical History History of alcohol abuse Medical History Tobacco dependency Medical History Ance Medical History ascites Surgical History Denies surgery Hospitalization History Rehab 12/2015 [place] No Information Health Concerns No Information MEDICAL EQUIPMENT No Information MENTAL STATUS No Information FUNCTIONAL STATUS No Information ASSESSMENTS Encounter Date Diagnosis Assessment Notes Treatment Notes Treatm ent Clinical Notes Aug, Peripheral polyneuropathy (ICD-10 - G62.9) PLAN OF TREATMENT Medication Medication Name Sig Start Date Stop Date Abdominal Binder/Elastic Large - as directed for 999 days Aug Amitriptyline HCl 25 MG 1 tablet at bedtime Orally Once a da y for 30 day(s) Jul, Atorvastatin Calcium 20 MG 1 tablet Orally Once a day for 30 Next Appt Details Provider Name:Taras Baker, 2020-09-23 09:30:00 AM, [address] [place] [address], [place], [address], Provider Name:Taras Baker, 2020-09-25 11:00:00 AM, [address] [place] [address], [place], [address], Insurance Providers Payer Name Payer Address Payer Phone Insured Name Patient Relati onship to Insured Coverage Start Date Coverage End Date [facility] CLAIMS DEPT [address] [facility] [phone] SUZANNE GONZÁLES self
--- OUTSIDE RECORDS SUMMARY | 2020-09-01 16:23 | CCD ---
Author Author [facility] Organization [facility] Address Unknown Phone Unavailable Care Team Providers Care Assistant Credit Manager Name Role Phone Taras Baker Unavailable PROBLEMS Type Condition ICD9-CM Code [id number] Code Onset Dates Condition S tatus SNOMED Code Notes Problem Alcohol abuse F10.10 Active 86664799 Problem Headache in back of head R51 Active 242836 Problem Essential hypertension I10 Active 28178627 Problem Sinus congestion R09.81 Active 56464114 Problem Seasonal allergic rhinitis due to other allergic trigger J30.89 Active 269579819 Problem Thrombocytopenia D69.6 Active 648371045 Problem Alcohol dependence with unspecified alcohol-induced disord er F10.29 Active 86338262 Problem Ascites due to alcoholic cirrhosis K70.31 Activ e 4200121276415211 Problem Vitamin D deficiency E55.9 Active 26228123 Problem Peripheral polyneuropathy G62.9 Active 265563 00 Problem Depression, unspecified depression type F32.9 Active 84377972 Problem Hypomagnesemia E83.42 Active 252093954 Problem Mixed hyperlipidemia E78.2 Active 552158783 Problem Fatty liver K76.0 Active 024118419 Problem Hyperbilirubinemia E80.6 Active 57982100 ALLERGIES No Known Allergies ENCOUNTERS from 1968 to 2020-07-30 Encounter Location Date Provider Diagnosis [address] [address] Jul, Taras Baker IMMUNIZATIONS Vaccine Route Administration Date Status Influenza [...] Catholic: Question Answer Notes Roman Catholic 13 Yazidi Sexual Hx: Question Answer Notes Had sex [...] Notes Start Da te End Date Status Omeprazole 20 MG 1 tablet Orally Once a day Active Metformin HCl 500 MG 1 tablet with a meal Orally bid for 30 day(s) Not-Taking Naltrexone HCl 50 MG 1 tablet Orally Once a day for 30 day(s) Active Meclizine HCl 25 MG 1 tablet as needed Orally Once a day for 30 day(s ) Active Ondansetron HCl 4 MG 1 tablet Orally TIDPRN for 14 days Jul, Active Spironolactone 100 MG 1 tablet Orally Once a day for 30 day(s) Jul, Active Phytonadione 5 MG 1 tablet Orally Once a day starting on 05/29/20 20 for 3 days May, Not-Taking Amitriptyline HCl 10 MG 1 tablet at bedtime Orally Once a day fo r 30 day(s) May, Active Atorvastatin Calcium 20 MG 1 tablet Orally Once a day for 30 day (s) Jan, Active Furosemide 40 MG 1 tablet Orally Once a day for 30 day(s) Jul, Active Doxycycline Hyclate 50 MG 1 capsule Orally every 12 hrs for 30 D ays December, Active PROCEDURES No Information RESULTS No Results REASON FOR VISIT refill problem? MEDICAL (GENERAL) HISTORY Type Description Date Medical History Hypertension Medical History Anxiety Medical History Depression Medical History History of alcohol abuse Medical History Tobacco dependency Medical History Ance Medical History ascites Surgical History Denies surgery Hospitalization History Rehab 12/2015 Goals Section No Information Health Concerns No Information MEDICAL EQUIPMENT No Information MENTAL STATUS No Information FUNCTIONAL STATUS No Information ASSESSMENTS No Information PLAN OF TREATMENT Medication Medication Name Sig Start Date Stop Date Spironolactone 100 MG 1 tablet Orally Once a day for 30 day(s) 0 Jul, Furosemide 40 MG 1 tablet Orally Once a day for 30 day(s) Jul Doxycycline Hyclate 50 MG 1 capsule Orally every 12 hrs for 30 Days December, Ondansetron HCl 4 MG 1 tablet Orally TIDPRN for 14 days Jul, Next Appt Details Provider Name:Taras Baker, 2020-08-10 10:00:00 AM, [address] [facility], [place], [address], Insurance Providers Payer Name Payer Address Payer Phone Insured Name Patient Relati onship to Insured Coverage Start Date Coverage End Date [facility] CLAIMS DEPT [address] [facility] [phone] SUZANNE GONZÁLES self
--- OUTSIDE RECORDS SUMMARY | 2020-09-01 16:23 | CCD | Continuity of Care Document ---
Author Author Calvin RUBIO MD Organization Unknown Address [address] [facility] [address] [place] [address] Phone [phone] Care Team Providers Care Senior Ux Designer Name Role Phone Taras Bender D.O. Unavailable Geno Rivero D.O. Problems Active Problems Provider Date Essential hypertension [...] Available Vital Signs Date Vital Result Comment 07/23/2020 8:54am BP Systolic 102 mmHg BP Diastolic 69 mmHg Height 74 inches 6'2" Weight 195.38 lb BMI (Body Mass Index) 25.1 kg/m2 [place] Body Weight 190 lb Weight 88.622 kg BSA (Body Surface Area) 2.15 m2 06/16/2020 10:55am BP Systolic 96 mmHg BP Diastolic 65 mmHg Heart Rate 98 /min Height 74 inches 6'2" Weight 198.12 lb BMI (Body Mass Index) 25.4 kg/m2 [place] Body Weight 190 lb Weight 89.870 kg BSA (Body Surface Area) 2.16 m2 Results Test Acquired Date Facility Test Result H/L Range Note Liver Profile 07/20/2020 [facility] [place] [address] [phone] Ast/Sgot 29 U/L Normal 7-37 Alt/SGPT 13 U/L Normal 12-78 Alkaline Phosphatase 101 U/L Normal 45-117 Bilirubin,Total 3.3 mg/dL High 0.2-1.0 Bilirubin,Direct 1.7 mg/dL High 0.0-0.2 Total Protein 6.8 GM/DL Normal 6.4-8.2 Albumin 2.9 GM/DL Low 3.2-5.2 Albumin/Globulin Ratio 0.7 Normal Liver Profile 06/16/2020 [facility] [place] [address] [phone] Ast/Sgot 53 U/L High 7-37 Alt/SGPT 34 U/L Normal 12-78 Alkaline Phosphatase 103 U/L Normal 45-117 Bilirubin,Total 2.7 mg/dL High 0.2-1.0 Bilirubin,Direct 2.1 mg/dL High 0.0-0.2 Total Protein 7.3 GM/DL Normal 6.4-8.2 Albumin 2.5 GM/DL Low 3.2-5.2 Albumin/Globulin Ratio 0.5 Normal CBC With Differential 05/27/2020 [facility] Main Lab [address] [place] [address] [phone] White Blood Count 3.8 10 Low 4.0-10.0 [...] 36.0-66.0 Lymph % 40.3 % Normal 24.0-44.0 [place] % 11.8 % High 0.0-5.0 Eos % 1.3 % Normal 0.0-3.0 Baso % 0.8 % Normal 0.0-1.0 Immature Granulocyte % 0.3 % Normal 0-3.0 Nucleated Red Blood Cell % 0.0 % Normal 0-0 Neutrophils # 1.7 10 Normal 1.5-8.5 Lymph # 1.5 10 Normal 1.5-5.0 [place] # 0.5 10 Normal 0.0-0.8 Eos # 0.1 10 Normal 0.0-0.5 Baso # 0.0 10 Normal 0.0-0.2 Prothrombin Time/Inr 05/27/2020 [facility] enter Main Lab [address] [place] [address] [phone] Prothrombin Time 19.8 seconds High 12.5-14.3 Inr 1.65 Normal 1 Laboratory test finding 05/27/2020 [facility] Main Lab [address] [place], [place] [id number] [phone] Partial Thromboplastin Time 54.2 seconds High 24 .2-38.5 Comprehensive Metabolic Profil 05/27/2020 [facility] Main Lab [address] [place], [place] [id number] [phone] Glucose, Fasting 78 mg/dL Normal 70-100 Blood [...] Ratio 0.4 Normal Laboratory test finding 05/27/2020 [facility] Main Lab [address] [place] [address] [phone] Vitamin B12 Level 1680 pg/mL High 247-911 [...] Little GFR Left ESRD GFR <15 on [employer] 3 VITAMIN B12 NORMAL RANGE NORMAL 247 - 911 PG/ML INDETERMINATE 211 - 246 PG/ML DEFICIENT LESS THAN 211 PG/ML Procedures Description No Information Available Medical Devices Description No Information Available Encounters Type Date Location Provider Dx Diagnosis Office Visit 05/19/2020 1:30p [facility] Edu grayson Rubio MD K70.30 Alcoholic cirrhosis of liver without ascites K70.10 Alcoholic hepatitis without ascites K42.9 Umbilical hernia without obs truction or gangrene Assessments Date Code Description Provider 05/19/2020 K70.30 [...] was briefly admitted for supportive care at [facility]. He is in no condition to have [...] to get some of the records from [facility] with regards to the studies and workup that has been done. I'll have him be seen a month from now for follow-up. I'll repeat his LFTs. Functional Status Description No Information Available Mental Status Description No Information Available Referrals Description No Information Available
--- OUTSIDE RECORDS SUMMARY | 2020-09-01 16:23 | CCD | Summary of Care ---
Author Author [facility] Address Unknown Phone Unavailable Care Team Providers Care Saw Boss Name Role Phone Taras Baker DO PCP Reason for Visit * Reason Comments Follow-up Encounter Details Care Team Description Date Type Department Tera Fair MBBS [address] [id number] Hepatitis (Primary Dx); Acute alcoholic hepatitis 07/08/2020 [facility] [address] [id number] Allergies No Known Allergiesdocumented as of this encounter (statuses as of 07/08/2020) Medications End Date Status Medication Sig Dispensed Refills Start Date Active Lisinopril 5 MG Oral Take 5 mg by 0 Tablet (PRINIVIL,ZESTRIL) mouth daily Active Omeprazole 40 MG Oral Take 40 mg by 0 Capsule Delayed Release mouth daily (PRILOSEC) Active Alum & Mag Take 30 mLs 355 mL 0 Hydroxide-Simeth by mouth 0 200-200-20 MG/5ML Oral every 6 (six) Suspension (MAALOX PLUS) hours as needed (heartburn) 05/10/2021 Active Calcium Carbonate-Vitamin Take 1 tablet 30 tablet 11 D 500-200 MG-UNIT Oral by mouth 0 Tablet (OSCAL-500) daily 05/10/2021 Active Folic Acid 1 MG Oral Take 1 tablet 30 tablet 11 Tablet (FOLVITE) by mouth 0 daily 07/10/2020 Active Hydrocortisone 10 MG Oral Take 1 tablet 60 tablet 0 Tablet (CORTEF) by mouth 0 every morning 07/10/2020 Active Hydrocortisone 5 MG Oral Take 1 tablet 60 tablet 0 Tablet (CORTEF) by mouth 0 every evening 05/10/2021 Active Thiamine HCl 100 MG Oral Take 1 tablet 30 tablet 11 Tablet (B-1) by mouth 0 daily documented as of this encounter (statuses as of 07/08/2020) Active Problems Patient Care Coordination Note C D [facility] FROM [facility] ([phone] ext [phone]) Pt also connected with [facility] for Community Case Management in [facility]. Specific agency info pending. 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 documented as of this encounter Last Filed Vital Signs Not on filedocumented in this encounter Progress Notes * Tera Fair MBBS - 07/08/2020 1:30 PM EST ID: Calvin Cobb is a 49 y.o. male PCP: Taras Baker DO CC: Follow up visit for post hospital discharged Brief History/Interval History This is a 49 y.o. male patient on whom we were consulted for abnormal liver enzy mes acute alcoholic hepatitis with Maddrey's score for 55 while hospitalized at in 04/2020. Patient's abnormal liver enzymes were consistent with alcoholic hepatitis. He w as started steroids but Adriana score at day 7 (05/03/2020) was 0.86 indicating non- responsiveness to steroids hence stopped. Iron sat was high hence HFE was teste d and was negative . .For his chronic liver disease, the patient will need outpatient GI follow-up. Pt has stopped etos use since discharge. No drugs/smoking. Feeling great. Eating healthy and trying to lose wt. Denies any signs of liver decompensation. No RISSA, abd distension, gib, confusion. Past Medical & Surgical History He has a past medical history of Alcohol abuse, GERD (gastroesophageal reflux d isease), Hyperlipidemia, Hypertension, Peripheral neuropathy, and T2DM (type 2 d iabetes mellitus). He has no past surgical history on file. No Known Allergies Home Medications Medication Sig Alum & Mag Hydroxide-Simeth 200-200-20 MG/5ML Oral Suspension (MAALOX PLUS) Take 30 mLs by mouth every 6 (six) hours as needed (heartburn) Calcium Carbonate-Vitamin D 500-200 MG-UNIT Oral Tablet (OSCAL-500) Take 1 table t by mouth daily Folic Acid 1 MG Oral Tablet (FOLVITE) Take 1 tablet by mouth daily Hydrocortisone 10 MG Oral Tablet (CORTEF) Take 1 tablet by mouth every morning Hydrocortisone 5 MG Oral Tablet (CORTEF) Take 1 tablet by mouth every evening Lisinopril 5 MG Oral Tablet (PRINIVIL,ZESTRIL) Take 5 mg by mouth daily Omeprazole 40 MG Oral Capsule Delayed Release (PRILOSEC) Take 40 mg by mouth conrad ly Thiamine HCl 100 MG Oral Tablet (B-1) Take 1 tablet by mouth daily Social History, Family History: Social History Tobacco Use Smoking status: Light Tobacco Smoker Packs/day: 0.12 Years: 15.00 Pack years: 1.80 Types: Cigarettes Smokeless tobacco: Never Used Substance Use Topics Alcohol use: Yes Alcohol/week: 12.0 - 15.0 standard drinks Types: 12 - 15 Standard drinks or equivalent per week Comment: Drinks 12-15 drinks/day Drug use: Never He He reported the following about his mother: Adopted, patient does not know me dical history. He reported the following about his father: Adopted, patient does not know medical history. family history includes Alcohol abuse in his father and mother. Review of Systems Complete ROS performed and found to be negative except those mentioned in the HP I. Physical Exam: There were no vitals taken for this visit. Physical Exam Not done as telemed visit Data review: All laboratory data, outside records and imaging that were available were indepe ndently reviewed by me. Pertinent data is listed here. Lab 04/27/20 1747 04/28/20 0813 04/29/20 0620 05/06/20 1247 05/07/20 0424 05/08/20 1029 05/09/20 1417 HGB 10.9* 10.4* 10.1* 10.4* 10.1* 10.1* -- HCT 31.8* 30.1* 29.4* 30.3* 29.6* 29.4* -- MCV 105.0* 105.4* 105.1* 106.1* 106.8* 106.0* -- PLT 56* 67* 73* 87* 89* 98* -- WBC 3.1* 5.6 4.7 6.7 6.7 7.2 7.1 Lab 05/04/20 0614 05/05/20 0851 05/06/20 0442 05/07/20 0757 05/08/20 1029 NA 132* 129* 133* 132* 129* K 3.3* 3.0* 4.2 4.2 3.7 CL 99 95* 100 100 99 BICARBONATE 24 24 23 23 22 BUN 5* 7 7 6 6 CREATININE 0.36* 0.40* 0.34* 0.38* 0.44* Lab 05/06/20 0442 05/07/20 0424 05/08/20 0520 05/09/20 0433 05/10/20 0341 05/11/20 0426 PROT 6.9 6.4 6.6 6.5 6.5 7.3 ALBUMIN 2.6* 2.1* 2.2* 2.4* 2.3* 2.5* ALT 62* 57* 57* 55* 53* 59* AST 113* 109* 111* 111* 109* 113* ALKPHOS 127 118 115 117 109 120 TBILI 13.4* 12.0* 12.9* 11.7* 10.2* 9.5* BILIDIR 9.0* 8.3* 9.0* 8.4* 7.3* 6.3* Lab 04/25/20 0359 05/09/20 0433 05/10/20 0341 05/11/20 0426 LIPASE 83* -- -- -- -- INR 1.90 < > 1.74 1.82 1.71 < > = values in this interval not displayed. CT A/P: IMPRESSION: 1. Possible cholelithiasis. Mild diffuse gallbladder wall thickening may be secondary to ascites or congestive changes, although acute cholecystitis is difficult to entirely exclude. Correlation with LFTs and dedicated gallbladder ultrasound would be helpful. Ultimately, if still clinically indicated, follow-up with a HIDA scan may also be considered. 2. Hepatomegaly and hepatic steatosis. 3. Mild splenomegaly. 4. Small ascites. 5. Segmental colitis, likely infectious/inflammatory. Assessment and Plan: # CLD (hepatosplenomegaly) # S/p severe acute etoh hepatitis episode, Chronic alcohol use, quit etoh 0 # Fatty liver from alcohol use # BMI 27 # Umblical hernia, follows with surgery - we will repeat CMP, CBC, INR to follow interval resolution. - congratulated on stopping alcohol use - target wt lose 7-10% via hypocaloric diet and exercise - further need for f/u based on liver response - not immune to HAV/HBV. Alerting pcp to vaccinate. Orders Placed This Encounter CBC and differential Comprehensive Metabolic Panel Protime-INR Return visit, return visit tasks: 6 months This is a tele-medical visit. The patient was informed of the risks including se curity breach, technological failure, inability to perform a comprehensive physi eryn exam which could delay or prevent an accurate diagnosis, and potential compl ications from treatment decisions rendered over a telemedical platform. The susy ent understands and consented to the use of tele-health services. The service was provided by means of an audio/video telecommunication. Time spen t [address] Calvert who agrees with the plan. Tera Fair MBBS 07/08/2020 2:24 PM I personally saw and evaluated the patient with Dr. Fair and the above documen tation with my edits represents our in tandem history / review of testing / asse ssment and recommendations. In summary the patient is doing Ok and does need re peat CMP, CBC, INR to follow interval resolution. See full recommendations abov e. documented in this encounter Plan of Treatment Order Schedule Name Type Priority Associated Diag noses 1 Occurrences starting 07/08/2020 until 01/05/2021 CBC and differential Lab Routine Hepatitis 1 Occurrences starting 07/08/2020 until 01/05/2021 Comprehensive Metabolic Lab Routine Hepati tis Panel 1 Occurrences starting 07/08/2020 until 01/05/2021 Protime-INR Lab Routine Hepatitis Health Maintenance Due Date Last Done Comments Lipid Disorder Screening 1968 MMR Vaccines (1 of 1 - 1969 Standard series) Varicella Vaccines (1 of 1969 2 - 2-dose childhood series) Pneumococcal Vaccine: 1974 Pediatrics (0 to 5 Years) and At-Risk Patients (6 to 64 Years) (1 of 1 - PPSV23) DTaP,Tdap,and Td Vaccines 12/22/1975 (1 - Tdap) HIV Screening 1981 Diabetic Foot Exam 1986 Dilated Retinal Exam 1986 Urine Microalbumin 1986 Hepatitis B Vaccines (1 12/22/1987 of 3 - Risk 3-dose series) Colon Cancer Screening 10 2018 yrs Influenza Vaccine 05/21/2020 06/11/2019, 06/27/2018 Hemoglobin A1c 11/05/2020 05/08/2020 Pneumococcal Vaccine: 65+ 2033 Years (1 of 1 - PPSV23) HIB Vaccines Aged Out No longer eligible based on patient's age to complete this topic Hepatitis A Vaccines Aged Out No longer eligibl e based on patient's age to complete this topic IPV Vaccines Aged Out No longer eligible based on patient's age to complete this topic documented as of this encounter Results Not on filedocumented in this encounter Visit Diagnoses Diagnosis Hepatitis - Primary Hepatitis, unspecified Acute alcoholic hepatitis documented in this encounter
--- OUTSIDE RECORDS SUMMARY | 2020-09-01 16:23 | CCD | Continuity of Care Document ---
Author Author CHRISTOPHER SMILEY, Calvin Henning Organization Unknown Address [address] [place] [address] [address] [place] [address] Phone [phone] Care Team Providers Care Music Therapy Teacher Name Role Phone Taras Barahona D.O. Unavailable Geno Rivero D.O. Problems Active [...] SIG Qnty Indications Ordering Provide r Date Omeprazole 20mg Capsules DR 1 by mouth twice a day Unknown Doxycycline Hyclate 100mg Capsules 1 by mouth qd Unknown Hydrocortisone 5mg Tablets Take 1 Tablet By Mouth Every Day Unknown History Medications Ondansetron HCL 4mg Tablets one table every 6 hours as needed for nausea 20tabs Oumar Poe MD 07/23/2020 - 08/25/2020 Immunizations Description No Information Available Vital Signs Date Vital Result Comment 08/25/2020 10:16am BP Systolic 109 mmHg BP Diastolic 74 mmHg Height 74 inches 6'2" Weight 181.38 lb BMI (Body Mass Index) 23.3 kg/m2 [place] Body Weight 190 lb Weight 82.272 kg BSA (Body Surface Area) 2.09 m2 07/23/2020 8:54am BP Systolic 102 mmHg BP Diastolic 69 mmHg Height 74 inches 6'2" Weight 195.38 lb BMI (Body Mass Index) 25.1 kg/m2 [place] Body Weight 190 lb Weight 88.622 kg BSA (Body Surface Area) 2.15 m2 Results Test Acquired Date Facility Test Result H/L Range Note Liver Profile 07/20/2020 [facility] [place] [address] [phone] Ast/Sgot 29 U/L Normal 7-37 Alt/SGPT 13 U/L Normal 12-78 Alkaline Phosphatase 101 U/L Normal 45-117 Bilirubin,Total 3.3 mg/dL High 0.2-1.0 Bilirubin,Direct 1.7 mg/dL High 0.0-0.2 Total Protein 6.8 GM/DL Normal 6.4-8.2 Albumin 2.9 GM/DL Low 3.2-5.2 Albumin/Globulin Ratio 0.7 Normal Liver Profile 06/16/2020 [facility] [place] [address] [phone] Ast/Sgot 53 U/L High 7-37 Alt/SGPT 34 U/L Normal 12-78 Alkaline Phosphatase 103 U/L Normal 45-117 Bilirubin,Total 2.7 mg/dL High 0.2-1.0 Bilirubin,Direct 2.1 mg/dL High 0.0-0.2 Total Protein 7.3 GM/DL Normal 6.4-8.2 Albumin 2.5 GM/DL Low 3.2-5.2 Albumin/Globulin Ratio 0.5 Normal CBC With Differential 05/27/2020 [facility] Main Lab [address] [place] [address] [phone] White Blood Count 3.8 10 Low 4.0-10.0 [...] 36.0-66.0 Lymph % 40.3 % Normal 24.0-44.0 [place] % 11.8 % High 0.0-5.0 Eos % 1.3 % Normal 0.0-3.0 Baso % 0.8 % Normal 0.0-1.0 Immature Granulocyte % 0.3 % Normal 0-3.0 Nucleated Red Blood Cell % 0.0 % Normal 0-0 Neutrophils # 1.7 10 Normal 1.5-8.5 Lymph # 1.5 10 Normal 1.5-5.0 [place] # 0.5 10 Normal 0.0-0.8 Eos # 0.1 10 Normal 0.0-0.5 Baso # 0.0 10 Normal 0.0-0.2 Prothrombin Time/Inr 05/27/2020 [facility] Main Lab [address] [place] [address] [phone] Prothrombin Time 19.8 seconds High 12.5-14.3 Inr 1.65 Normal 1 Laboratory test finding 05/27/2020 [facility] Main Lab [address] [place] [address] [phone] Partial Thromboplastin Time 54.2 seconds High 24 .2-38.5 Comprehensive Metabolic Profil 05/27/2020 [facility] Main Lab [address] [place] [address] [phone] Glucose, Fasting 78 mg/dL Normal 70-100 Blood [...] Ratio 0.4 Normal Laboratory test finding 05/27/2020 [facility] Main Lab [address] [place] [id number] [phone] Vitamin B12 Level 1680 pg/mL High 247-911 [...] Little GFR Left ESRD GFR <15 on ACTIVITIES DIRECTOR 3 VITAMIN B12 NORMAL RANGE NORMAL 247 - 911 PG/ML INDETERMINATE 211 - 246 PG/ML DEFICIENT LESS THAN 211 PG/ML Procedures Description No Information Available Medical Devices Description No Information Available Encounters Type Date Location Provider Dx Diagnosis Office Visit 07/23/2020 9:00a [facility] Jamie Rubio MD K42.9 Umbilical hernia without obs truction or gangrene K70.31 Alcoholic cirrhosis of liver with ascites Office Visit 06/16/2020 10:50a [facility] Jamie Rubio MD K42.9 Umbilical hernia without obs truction or gangrene K70.10 Alcoholic hepatitis without ascites K70.30 Alcoholic cirrhosis of liver without ascites Office Visit 05/19/2020 1:30p [facility] Jamie Rubio MD K70.30 Alcoholic cirrhosis of liver without ascites K70.10 Alcoholic hepatitis without ascites K42.9 Umbilical hernia without obs truction or gangrene Assessments Date Code Description Provider 08/25/2020 K70.31 Alcoholic cirrhosis of liver wit h ascites Oumar Rubio MD 08/25/2020 K42.9 Umbilical hernia without obstruc tion or gangrene Oumar Rubio MD 07/23/2020 K42.9 Umbilical hernia without obstruc tion or gangrene Oumar Rubio MD 07/23/2020 K70.31 Alcoholic cirrhosis of liver wit h ascites Oumar Rubio MD 06/16/2020 K42.9 Umbilical hernia without obstruc tion or gangrene Oumar Rubio MD 06/16/2020 K70.10 Alcoholic hepatitis without asci laly uOmar Rubio MD 06/16/2020 K70.30 Alcoholic cirrhosis of liver wit hout ascites Oumar Rubio MD 05/19/2020 K70.30 Alcoholic cirrhosis of liver wit hout ascites Oumar Rubio MD 05/19/2020 K70.10 Alcoholic hepatitis without asci laly Oumar Rubio MD 05/19/2020 K42.9 Umbilical hernia without obstruc tion or gangrene Oumar Rubio MD Plan of Treatment No Information Available Functional Status Description No Information Available Mental Status Description No Information Available Referrals Description No Information Available
--- OUTSIDE RECORDS SUMMARY | 2020-09-01 16:23 | CCD ---
Author Author [facility] Organization [facility] Address Unknown Phone Unavailable Care Team Providers Care Employee Operations Examiner Name Role Phone Taras Baker Unavailable PROBLEMS Type Condition ICD9-CM Code [id number] Code Onset Dates Condition S tatus SNOMED Code Notes Problem Essential hypertension I10 Active 36112378 Problem Seasonal allergic rhinitis due to other allergic trigger J30.89 Active 216140634 Problem Depression, unspecified depression type F32.9 Active 38524339 Problem Alcohol abuse F10.10 Active 18618771 Problem Fatty liver K76.0 Active 503220308 Problem Sinus congestion R09.81 Active 13263533 Problem Mixed hyperlipidemia E78.2 Active 526360427 Problem Headache in back of head R51 Active 437990 Problem Vitamin D deficiency E55.9 Active 41566748 Problem Thrombocytopenia D69.6 Active 546718089 Problem Alcohol dependence with unspecified alcohol-induced disord er F10.29 Active 15185313 Problem Hypomagnesemia E83.42 Active 793310845 ALLERGIES No Known Allergies ENCOUNTERS from 1970 to 2020-06-04 Encounter Location Date Provider Diagnosis [address] [address] May, Taras Baker IMMUNIZATIONS Vaccine Route Administration Date [...] Notes Total Score: 1 Interpretation: Alcohol Education Faith: Question Answer Notes Faith 13 Judaism Sexual Hx: Question Answer Notes Had sex [...] Duration) Start Date En d Date Status Atorvastatin Calcium 20 MG 1 tablet Orally Once a day for 30 day(s) Jan, Active Doxycycline Hyclate 50 MG 1 capsule Orally every 12 hrs for 30 Days December, Active Metformin HCl 500 MG 1 tablet with a meal Orally bid for 30 day(s) Active Meclizine HCl 25 MG 1 tablet as needed Orally Once a day for 30 day (s) Active Omeprazole 20 MG 1 tablet Orally Once a day Active Lisinopril 20 MG 1 tablet Orally Once a day for 30 day(s) Jan, 019 Active Phytonadione 5 MG 1 tablet Orally Once a day starting on for 3 days May, Active Naltrexone HCl 50 MG 1 tablet Orally Once a day for 30 day(s) Active PROCEDURES No Information RESULTS No Results REASON FOR VISIT Phytonadione 5 MG Tablet MEDICAL (GENERAL) HISTORY Type Description [...] Medication Name Sig Start Date Stop Date Naltrexone HCl 50 MG 1 tablet Orally Once a day for 30 day(s) Phytonadione 5 MG 1 tablet Orally Once a day starting on for 3 days May, Meclizine HCl 25 MG 1 tablet as needed Orally Once a day for 30 day(s) Next Appt Details Provider Name:Taras Baker 2020-06-08 02:15:00 PM, [address] [place] [address], [id number], Provider Name:Taras Baker 2020-06-15 01:00:00 PM, [address] [facility], [place], [address], Insurance Providers Payer Name Payer Address Payer Phone Insured Name Patient Relati onship to Insured Coverage Start Date Coverage End Date [facility] [employer] [facility] [facility] [address] [facility] [phone] SUZANNE GONZÁLES self
--- OUTSIDE RECORDS SUMMARY | 2020-09-01 16:23 | CCD ---
Author Author [facility] Organization [facility] Address Unknown Phone Unavailable Care Team Providers Care Research Tech Name Role Phone Wong Ortiz Unavailable PROBLEMS Type Condition ICD9-CM Code [id number] Code Onset Dates Condition S tatus SNOMED Code Notes Problem Headache in back of head R51 Active 111884 Problem Alcohol abuse F10.10 Active 15589801 Problem Seasonal allergic rhinitis due to other allergic trigger J30.89 Active 698851129 Problem Depression, unspecified depression type F32.9 Active 69437961 Problem Vitamin D deficiency E55.9 Active 06694123 Problem Mixed hyperlipidemia E78.2 Active 147217744 Problem Essential hypertension I10 Active 64467374 Problem Hyperbilirubinemia E80.6 Active 51738346 Problem Sinus congestion R09.81 Active 04983169 Problem Alcohol dependence with unspecified alcohol-induced disord er F10.29 Active 20957672 Problem Hypomagnesemia E83.42 Active 932401209 Problem Thrombocytopenia D69.6 Active 272469041 Problem Fatty liver K76.0 Active 027064501 ALLERGIES No Known Allergies ENCOUNTERS from 1968 to 2020-06-18 Encounter Location Date Provider Diagnosis [facility] [address] [place] [address] Jan, Wong Ortiz Dizziness R42 ; Fatty liver K76.0 and Alcohol abuse F10.10 IMMUNIZATIONS Vaccine Route Administration Date Status Influenza [...] Notes Total Score: 1 Interpretation: Alcohol Education Yazdanism: Question Answer Notes Yazdanism 13 Pentecostal Sexual Hx: Question Answer Notes Had sex [...] REASON FOR REFERRAL No Information VITAL SIGNS Weight 231 lbs Jan, Height 75 in Jan, BMI 28.87 kg/m2 Jan, Heart Rate 80 /min Jan, Respiratory Rate 18 /min Jan, Temperature 97.8 degrees Fahrenheit Jan, Oximetry 95 Jan, Blood pressure systolic 124 mm Hg Jan, Blood pressure diastolic 70 mm Hg Jan, MEDICATIONS Medication SIG (Take, Route, Frequency, Duration) Start Date En d Date Status Atorvastatin Calcium 20 MG 1 tablet Orally Once a day for 30 day(s) Jan, Active Phytonadione 5 MG 1 tablet Orally Once a day starting on for 3 days May, Not-Taking Amitriptyline HCl 10 MG 1 tablet at bedtime Orally Once a da y for 30 day(s) May, Active Doxycycline Hyclate 50 MG 1 capsule [...] 30 day(s) Active PROCEDURES No Information RESULTS Component Value Reference Range LRY LIVER US Reviewed date:06/18/2020 10:15:08 Interpretation: Performing Lab:[facility], [place] [address] REASON FOR VISIT dizziness MEDICAL (GENERAL) HISTORY Type Description Date Medical History Hypertension Medical History Anxiety Medical History Depression Medical History History of alcohol abuse Medical History Tobacco dependency Medical History Ance Surgical History Denies surgery Hospitalization History Rehab 12/2015 Goals Section No Information Health Concerns No Information MEDICAL EQUIPMENT No Information MENTAL STATUS No Information FUNCTIONAL STATUS No Information ASSESSMENTS Encounter Date Diagnosis Notes Jan, Dizziness (ICD-10 - R42) Jan, Alcohol abuse (ICD-10 - F10.10) Jan, Fatty liver (ICD-10 - K76.0) PLAN OF TREATMENT Medication Medication Name Sig Start Date Stop Date Amitriptyline HCl 10 MG 1 tablet at bedtime Orally Once a da y for 30 day(s) May, Treatment Notes Assessment Notes Clinical Notes Dizziness Complained of dizzin ess. Patient had a positive orthostatic vital signs. Encourage patient to drink plenty of fluids, decrease alcohol intake as the can cause dehydration. Transition from sitting to standing slowly. He was advised to seek medical help should he develop vomiting, severe abdominal pain, loss of consciousness. Fatty liver . History of fatty l iver . Recommend alcohol use. Prior hepatitis screen for a and B was negative. Will repeat liver ultrasound also check patient's alpha-fetoprotein tumor marker as well as fiber sure. The Alcohol abuse Recommended outpatie nt rehabilitation. Patient stated that he would not like to do rehabilitation time. Recommended counseling with Mr. Calvin Jeffery. He was agreeable to the plan. We'll place him on Mr. Jeffery's schedule. Will also start patient on naltrexone to decrease alcohol cravings. Treatment Notes Test Name Order Date BARAHONA Fibrosure [id number] 2020-06-18 ALPHA FETOPROTEIN TUMOR QUANT 2020-06-18 Next Appt Details Please place on Calvin Jeffery schedule. 1 mo nth Reason: Provider Name:Taras Baker, 2020-07-20 10:00:00 AM, [address] [facility], [place], [address], Insurance Providers Payer Name Payer Address Payer Phone Insured Name Patient Relati onship to Insured Coverage Start Date Coverage End Date [employer] CLAIM[employer] DEPT [address] [place] [phone] CALVIN GONZÁLES self
--- OUTSIDE RECORDS SUMMARY | 2020-09-01 16:23 | CCD ---
Author Author [facility] Organization [facility] Address Unknown Phone Unavailable Care Team Providers Care Brickmason Name Role Phone Taras Baker Unavailable PROBLEMS Type Condition ICD9-CM Code [id number] Code Onset Dates Condition S tatus SNOMED Code Notes Problem Headache in back of head R51 Active 910340 Problem Alcohol abuse F10.10 Active 11153536 Problem Seasonal allergic rhinitis due to other allergic trigger J30.89 Active 730313463 Problem Depression, unspecified depression type F32.9 Active 59714351 Problem Vitamin D deficiency E55.9 Active 60089177 Problem Mixed hyperlipidemia E78.2 Active 641374905 Problem Essential hypertension I10 Active 53395047 Problem Hyperbilirubinemia E80.6 Active 55037512 Problem Sinus congestion R09.81 Active 40375232 Problem Alcohol dependence with unspecified alcohol-induced disord er F10.29 Active 15174060 Problem Hypomagnesemia E83.42 Active 672172686 Problem Thrombocytopenia D69.6 Active 701135483 Problem Fatty liver K76.0 Active 048130407 ALLERGIES No Known Allergies ENCOUNTERS from 1970 to 2020-07-04 Encounter Location Date Provider Diagnosis [address] [address] Jun, Taras Baker IMMUNIZATIONS Vaccine Route Administration Date [...] Notes Total Score: 1 Interpretation: Alcohol Education Amish: Question Answer Notes Amish 13 Yarsanism Sexual Hx: Question Answer Notes Had sex [...] a day for 30 day(s) Jan, Active Metformin HCl 500 MG 1 tablet [...] Information RESULTS No Results REASON FOR VISIT Pain from hernia MEDICAL (GENERAL) HISTORY Type Description Date Medical [...] day(s) May, Next Appt Details Provider Name:Taras Baker 2020-07-20 10:00:00 AM, [address] [place], [address], Insurance Providers Payer Name Payer Address Payer Phone Insured Name Patient Relati onship to Insured Coverage Start Date Coverage End Date [facility] [employer]POR[facility] CLAIMS DEPT [address] [facility] [phone] SUZANNE GONZÁLES self
--- OUTSIDE RECORDS SUMMARY | 2020-09-01 16:23 | CCD ---
Author Author [facility] Organization [facility] Address Unknown Phone Unavailable Care Team Providers Care Composite Technician Name Role Phone Taras Baker Unavailable PROBLEMS Type Condition ICD9-CM Code RSK07-RP Code Onset Dates Condition S tatus SNOMED Code Notes Problem Alcohol abuse F10.10 Active 13333434 Problem Headache in back of head R51 Active 920577 Problem Essential hypertension I10 Active 09002096 Problem Sinus congestion R09.81 Active 57387304 Problem Seasonal allergic rhinitis due to other allergic trigger J30.89 Active 237943670 Problem Thrombocytopenia D69.6 Active 214590379 Problem Alcohol dependence with unspecified alcohol-induced disord er F10.29 Active 63045669 Problem Ascites due to alcoholic cirrhosis K70.31 Activ e 9711761293308790 Problem Vitamin D deficiency E55.9 Active 50487149 Problem Peripheral polyneuropathy G62.9 Active 067619 00 Problem Depression, unspecified depression type F32.9 Active 97903101 Problem Hypomagnesemia E83.42 Active 237703736 Problem Mixed hyperlipidemia E78.2 Active 502120128 Problem Fatty liver K76.0 Active 042341475 Problem Hyperbilirubinemia E80.6 Active 19723690 ALLERGIES No Known Allergies ENCOUNTERS from 1970 to 2020-08-28 Encounter Location Date Provider Diagnosis [address] [address] Aug, Taras Baker IMMUNIZATIONS Vaccine Route Administration Date [...] Notes Total Score: 1 Interpretation: Alcohol Education Congregational: Question Answer Notes Congregational 13 Tenriism Sexual Hx: Question Answer Notes Had sex [...] Information RESULTS No Results REASON FOR VISIT umbilical hernia MEDICAL (GENERAL) HISTORY Type Description Date [...] Details Provider Name:Taras Baker, 2020-09-23 09:30:00 AM, [address] [place] [address], [place], [address], Provider Name:Taras Baker, 2020-09-25 11:00:00 AM, [address] [place] [address], [address], Insurance Providers Payer Name Payer Address Payer Phone Insured Name Patient Relati onship to Insured Coverage Start Date Coverage End Date [facility] [employer]POR[facility] CLAIMS DEPT [address] [facility] [phone] SUZANNE GONZÁLES self
--- OUTSIDE RECORDS SUMMARY | 2020-09-01 16:25 | CCD ---
Author Author [facility] Organization [facility] Address Unknown Phone Unavailable Care Team Providers Care Aquatic Habitat Biologist Name Role Phone Stefania WHITE MD Unavailable Unavailable Stefania WHITE MD Unavailable Unavailable Stefania WHITE MD Unavailable Unavailable Stefania WHITE MD Unavailable Unavailable Stefania WHITE MD Unavailable Unavailable Stefania WHITE MD Unavailable Unavailable Stefania WHITE MD Unavailable Unavailable Stefania WHITE MD Unavailable Unavailable BARJIHANUGAStefania MD Unavailable Unavailable Stefania WHITE MD Unavailable Unavailable Stefania WHITE MD Unavailable Unavailable Stefania WHITE MD Unavailable Unavailable Stefania WHITE MD Unavailable Unavailable Stefania WHITE MD Unavailable Unavailable Stefania WHITE MD Unavailable Unavailable Stefania WHITE MD Unavailable Unavailable Stefania WHITE MD Unavailable Unavailable Stefania WHITE MD Unavailable Unavailable Stefania WHITE MD Unavailable Unavailable Stefania WHITE MD Unavailable Unavailable Stefania WHITE MD Unavailable Unavailable Stefania WHITE MD Unavailable Unavailable Stefania WHITE MD Unavailable Unavailable Stefania WHITE MD Unavailable Unavailable Stefania WHITE MD Unavailable Unavailable Stefania WHITE MD Unavailable Unavailable Stefania WHITE MD Unavailable Unavailable Stefania WHITE MD Unavailable Unavailable Stefania WHITE MD Unavailable Unavailable Stefania WHITE MD Unavailable Unavailable Stefania WHITE MD Unavailable Unavailable Stefania WHITE MD Unavailable Unavailable SURENDRAUGAStefania MD Unavailable Unavailable Slaughter, Onel Unavailable Unavailable Slaughter, Onel Unavailable Unavailable Slaughter, Onel Unavailable Unavailable Slaughter, Onel Unavailable Unavailable Slaughter, Onel Unavailable Unavailable BHUTTA, KATHY Unavailable Unavailable GAYAM, SINDHURI RESIDENT Unavailable Unavailable GAYAM, SINDHURI RESIDENT Unavailable Unavailable GAYAM, SINDHURI RESIDENT Unavailable Unavailable GAYAM, SINDHURI RESIDENT Unavailable Unavailable YAHIR VILLAR MD Unavailable YAHIR VILLAR MD Unavailable YAHIR VILLAR MD Unavailable YAHIR VILLAR MD Unavailable YAHIR VILLAR MD Unavailable YAHIR VILLAR MD Unavailable YAHIR VILLAR MD Unavailable LUDIN THORPE MD Unavailable Unavailable THORPE, LUDIN MD Unavailable Unavailable THORPE, LUDIN MD Unavailable Unavailable THORPE, LUDIN MD Unavailable Unavailable THORPE, LUDIN MD Unavailable Unavailable THORPE, LUDIN MD Unavailable Unavailable THORPE, LUDIN MD Unavailable Unavailable THORPE, LUDIN MD Unavailable Unavailable THORPE, LUDIN MD Unavailable Unavailable HADZIPASIC, REGINA MD Unavailable Unavailable Hemant, Gerard Unavailable Unavailable Hemant, Gerard Unavailable Unavailable Hemant, Gerard Unavailable Unavailable Hemant, Gerard Unavailable Unavailable Hemant, Gerard Unavailable Unavailable Hemant, Gerard Unavailable Unavailable Hemant, Gerard Unavailable Unavailable Hemant, Gerard Unavailable Unavailable Hemant, Gerard Unavailable Unavailable Hemant, Gerard Unavailable Unavailable Hemant, Gerard Unavailable Unavailable Hemant, Gerard Unavailable Unavailable Hemant, Gerard Unavailable Unavailable Hemant, Gerard Unavailable Unavailable Hemant, Gerard Unavailable Unavailable Hemant, Gerard Unavailable Unavailable Hemant, Gerard Unavailable Unavailable Hemant, Gerard Unavailable Unavailable Hemant, Gerard Unavailable Unavailable Hemant, Gerard Unavailable Unavailable Re-disclosure Warning The records that you are about to access may contain information from federally-assisted alcohol or drug abuse programs. If such information is present, then the following federally mandated warning applies: This information has been disclosed to you from records protected by federal confidentiality rules (42 CFR part 2). The federal rules prohibit you from making any further disclosure of this information unless further disclosure is expressly permitted by the written consent of the person to whom it pertains or as otherwise permitted by 42 CFR part 2. A general authorization for the release of medical or other information is NOT sufficient for this purpose. The Federal rules restrict any use of the information to criminally investigate or prosecute any alcohol or drug abuse patient.The records that you are about to access may contain highly sensitive health information, the redisclosure of which is protected by Article 27-F of the [facility] Public Health law. If you continue you may have access to information: Regarding HIV / AIDS; Provided by facilities licensed or operated by the [facility] Office of Mental Health; or Provided by the [facility] Office for People With Developmental Disabilities. If such information is present, then the following [facility] mandated warning applies: This information has been disclosed to you from confidential records which are protected by state law. State law prohibits you from making any further disclosure of this information without the specific written consent of the person to whom it pertains, or as otherwise permitted by law. Any unauthorized further disclosure in violation of state law may result in a fine or long-term sentence or both. A general authorization for the release of medical or other information is NOT sufficient authorization for further disc losure. Allergies and Adverse Reactions Type Description Substance Reaction Status Data Source(s ) Drug Class NO KNOWN ALLERGIES NO KNOWN ALLERGIES [facility] Encounters Encounter Providers Location Date Indications Data Source(s ) [place] [address] [facility] [address] 08/27/2020 12:00:00 AM EST eCW1 ([facility]) Unknown [address] [facility] [place] [address] 08/26/2020 12:00:00 AM EST eCW1 ([facility]) Unknown [address] [facility] [place] [address] 07/29/2020 12:00:00 AM EST eCW1 ([facility]) Outpatient Attender: LIN Gottlieb/Kajal/Ilir/ Reinliborio 07/23/2020 08:00:00 AM EST [facility] ([facility]) Outpatient Attender: KATHY ALFORD 07/15/2020 12:00:00 AM E [facility] Outpatient Attender: KATHY ALFORD [id number] 12:00:00 AM EST - 07/08/2020 02:35:16 PM [facility] Unknown [address] [facility] [place] [address] 07/02/2020 12:00:00 AM EST eCW1 ([facility]) Outpatient Attender: Gerard Marcos 07/01/2020 12:00:00 AM E [facility] Unknown [address] [facility] [place] [address] 06/29/2020 12:00:00 AM EST eCW1 ([facility]) Outpatient Attender: LIN Gottlieb/Kajal/Ilir/ Reindl 06/16/2020 10:50:00 AM EDT [facility] ([facility]) [place] [address] [facility] [address] 05/29/2020 12:00:00 AM EDT eCW1 ([facility]) Unknown [address] [facility] [address] 05/28/2020 12:00:00 AM EDT eCW1 ([facility]) Outpatient Attender: LIN Gottlieb/Kajal/Ilir/ Reinliborio 05/19/2020 01:30:00 PM EDT [facility] ([facility]) Outpatient Attender: YAHIR VILLAR MDReferrer: YAHIR VILLAR MD 05/07/2020 12:00:00 AM [facility] Outpatient Attender: YAHIR VILLAR MDReferrer: YAHIR VILLAR MD 05/07/2020 12:00:00 AM [facility] Outpatient Attender: LUDIN THORPE MD [id number] 05/04/2020 10:28:14 A M [facility] Unlisted evaluation and management service 04/21 06:10:00 PM EDT NETSMART ([facility]) Inpatient Attender: Onel Adam santiago: YAHIR VILLAR MDAttender: CHIQUI PADRON RESIDENTAttender: REGINA MONTANEZ MDAdmitter: REGINA MONTANEZ MDReferrer: REGINA MONTANEZ MD [id number] 04/25/2020 12:00:00 AM EDT - 05/11/2020 02:37:00 PM EDT Alcoholic hepatitis without ascites [facility] Alcoholic hepatitis without ascites Patient discharged. Unknown [address] [facility] [address] 03/10/2020 12:00:00 AM EDT eCW1 ([facility]) Outpatient [address] [facility] [address] 02/07/2020 12:00:00 AM EDT eCW1 ([facility]) Unknown [address] [facility] [address] 02/04/2020 12:00:00 AM EDT eCW1 ([facility]) Outpatient 01/23/2020 04:24:00 AM EDT [facility] Resident [address] [place] [address] 01/21/2020 12:00:00 AM EDT eCW1 ([facility]) [facility] [place] [address] [facility] [place] [address] 01/14/2020 12:00:00 AM EDT eCW1 ([facility]) [facility] [place] [address] [facility] Y [address] 01/09/2020 12:00:00 AM EDT eCW1 ([facility]) [facility] Resident [address] [place] [phone] 01/06/2020 12:00:00 AM EDT eCW1 ([facility]) [facility] Resident [address] [place] [phone] 12/31/2019 12:00:00 AM EDT eCW1 ([facility]) [facility] [place] [address] [place] [address] [place] [address] 12/31/2019 12:00:00 AM EDT eCW1 ([facility]) [facility] Resident [address] [place] [phone] 12/30/2019 12:00:00 AM EDT eCW1 ([facility]) [facility] [place] [address] [facility] [place] [address] 12/23/2019 12:00:00 AM EDT eCW1 ([facility]) [facility] Resident [address] [place] [phone] 12/23/2019 12:00:00 AM EDT eCW1 ([facility]) [facility] Resident [address] [place] [phone] 11/11/2019 12:00:00 AM EDT eCW1 ([facility]) [facility] Resident [address] [place] [phone] 11/08/2019 12:00:00 AM EDT eCW1 ([facility]) [facility] Resident [address] [place] [address] 11/08/2019 12:00:00 AM EDT eCW1 ([facility]) [facility] Resident [address] [place] [phone] 11/05/2019 12:00:00 AM EDT eCW1 ([facility]) [facility] Resident [address] [place] [address] 10/14/2019 12:00:00 AM EST eCW1 ([facility]) [facility] [place] [address] [facility] [address] 09/23/2019 12:00:00 AM EST eCW1 ([facility]) Outpatient 09/21/2019 09:01:00 AM EST [facility] [place] [address] [facility] [address] 09/12/2019 12:00:00 AM EST eCW1 ([facility]) Medications Medication Brand Name Start Date Product Form Dose Route Admi nistrative Instructions Pharmacy Instructions Status Indications Reaction Description Data Source(s) Abdominal Binder/Elastic Large - Abdominal Binder/Elastic [facility] - 08/27/2020 12:00:00 AM EST active Abdomina l Binder/Elastic Large - [facility] Abdominal Binder/Elastic Large - Abdominal Binder/Elastic [facility] - 08/27/2020 12:00:00 AM EST active Abdomina l Binder/Elastic Large - [facility]) Amitriptyline Hydrochloride 25 MG Oral Tablet Amitript yline HCl 25 MG Amitriptyline HCl 25 MG 08/10/2020 12:00:00 AM EST 1.0 {tablet_at_b edtime} active Amitriptyline HCl 25 MG e CW[facility]) Amitriptyline Hydrochloride 25 MG Oral Tablet Amitript yline HCl 25 MG Amitriptyline HCl 25 MG 08/10/2020 12:00:00 AM EST 1.0 {tablet_at_b edtime} active Amitriptyline HCl 25 MG e CW1 [facility]) Ondansetron 4 MG Oral Tablet Ondansetron HCl 4 MG Ondansetro n HCl 4 MG 07/27/2020 12:00:00 AM EST 1.0 {tablet} active Ondansetron HCl 4 MG [facility]CW1 [facility]) Ondansetron 4 MG Oral Tablet Ondansetron HCl 4 MG Ondansetro n HCl 4 MG 07/27/2020 12:00:00 AM EST 1.0 {tablet} active Ondansetron HCl 4 MG eCW1 [facility]) Spironolactone 100 MG Oral Tablet Spironolactone 100 MG 02/2020 12:00:00 AM EST 1.0 {tablet} active Spironolact one 100 MG eCW1 [facility]) Spironolactone 100 MG Oral Tablet Spironolactone 100 MG 02/2020 12:00:00 AM EST 1.0 {tablet} active Spironolact one 100 MG eCW1 [facility]) Ondansetron 4 MG Oral Tablet Ondansetron HCl 4 MG Ondansetro n HCl 4 MG 07/27/2020 12:00:00 AM EST 1.0 {tablet} active Ondansetron HCl 4 MG eCW1 [facility]) Furosemide 40 MG Oral Tablet Furosemide 40 MG 07/27/2020 12:00:00 A M EST 1.0 {tablet} active Furosemide 40 MG [facility]CW[facility] Furosemide 40 MG Oral Tablet Furosemide 40 MG 07/27/2020 12:00:00 A M EST 1.0 {tablet} active Furosemide 40 MG [facility]CW1 ( [facility]) Furosemide 40 MG Oral Tablet Furosemide 40 MG 07/27/2020 12:00:00 A M EST 1.0 {tablet} active Furosemide 40 MG eCW1 ( [facility]) Spironolactone 100 MG Oral Tablet Spironolactone 100 MG 02/2020 12:00:00 AM EST 1.0 {tablet} active Spironolact one 100 MG eCW1 [facility]) Ondansetron 4 MG Oral Tablet Ondansetron HCL 07/23/2020 12:00:00 AM EST completed MEDENT ([facility] ) Amitriptyline Hydrochloride 10 MG Oral Tablet Amitript yline HCl 10 MG Amitriptyline HCl 10 MG 06/08/2020 12:00:00 AM EDT 1.0 {tablet_at_b edtime} active Amitriptyline HCl 10 MG e CW1 [facility]) Amitriptyline Hydrochloride 10 MG Oral Tablet Amitript yline HCl 10 MG Amitriptyline HCl 10 MG 06/08/2020 12:00:00 AM EDT 1.0 {tablet_at_b edtime} active Amitriptyline HCl 10 MG e CW1 [facility]) Amitriptyline Hydrochloride 10 MG Oral Tablet Amitript yline HCl 10 MG Amitriptyline HCl 10 MG 06/08/2020 12:00:00 AM EDT 1.0 {tablet_at_b edtime} active Amitriptyline HCl 10 MG e CW1 [facility]) Amitriptyline Hydrochloride 10 MG Oral Tablet Amitript yline HCl 10 MG Amitriptyline HCl 10 MG 06/08/2020 12:00:00 AM EDT 1.0 {tablet_at_b edtime} active Amitriptyline HCl 10 MG e CW1 [facility]) Vitamin K 1 5 MG Oral Tablet Phytonadione 5 MG Phytonadione 5 MG 05/28/2020 12:00:00 AM EDT 1.0 {tablet} suspended Phytonadione 5 MG eCW1 [facility]) Vitamin K 1 5 MG Oral Tablet Phytonadione 5 MG Phytonadione 5 MG 05/28/2020 12:00:00 AM EDT 1.0 {tablet} suspended Phytonadione 5 MG eCW1 [facility]) Vitamin K 1 5 MG Oral Tablet Phytonadione 5 MG Phytonadione 5 MG 05/28/2020 12:00:00 AM EDT 1.0 {tablet} suspended Phytonadione 5 MG eCW1 [facility]) Vitamin K 1 5 MG Oral Tablet Phytonadione 5 MG Phytonadione 5 MG 05/28/2020 12:00:00 AM EDT 1.0 {tablet} suspended Phytonadione 5 MG eCW1 [facility]) Vitamin K 1 5 MG Oral Tablet Phytonadione 5 MG Phytonadione 5 MG 05/28/2020 12:00:00 AM EDT 1.0 {tablet} suspended Phytonadione 5 MG eCW1 [facility]) Vitamin K 1 5 MG Oral Tablet Phytonadione 5 MG Phytonadione 5 MG 05/28/2020 12:00:00 AM EDT 1.0 {tablet} active Ph ytonadione 5 MG eCW1 ([facility]) Vitamin K 1 5 MG Oral Tablet Phytonadione 5 MG Phytonadione 5 MG 05/28/2020 12:00:00 AM EDT 1.0 {tablet} suspended Phytonadione 5 MG eCW1 ([facility]) Vitamin K 1 5 MG Oral Tablet Phytonadione 5 MG Phytonadione 5 MG 05/28/2020 12:00:00 AM EDT 1.0 {tablet} active Ph ytonadione 5 MG eCW1 ([facility]) Hydrocortisone 10 MG Oral Tablet Hydrocortisone 10 MG Oral Tablet (CORTEF) Hydrocortisone 10 MG Oral Tablet (CORTEF) 05/12/2020 12:00:00 AM EDT 10 mg Oral aborted Take 1 tablet by [facility] Hydrocortisone 10 MG Oral Tablet Hydrocortisone 10 MG Oral Tablet (CORTEF) Hydrocortisone 10 MG Oral Tablet (CORTEF) 05/12/2020 12:00:00 AM EDT 10 mg Oral aborted Take 1 tablet by [facility] Melatonin 3 MG Oral Tablet melatonin tablet 3 mg melatonin t ablet 3 mg 05/11/2020 10:00:00 PM EDT 3 mg Oral active 3 mg, Oral, Nightly, First dose on Mon05/11/20 at 2200, For 30 days [facility] Medication administered onsite Promethazine Hydrochloride 25 MG/ML Inje ctable Solution promethazine (PHENERGAN) injection 25 mg promethazine (PHENERGAN) injection 25 mg 05/11/2020 12 :10:26 PM EDT 25 mg Intravenous active 25 m g, Intravenous, Every 6 hours PRN, Nausea, Vomiting, Starting Mon05/11/20 at 1210, For 3 days
If ordered intravenous then must be diluted in 50 mL of sodium chloride 0.9 % and administered over 15 minutes. Do NOT give IV push.
[facility] Medication administered onsite Meclizine Hydrochloride 12.5 MG Oral Tablet meclizine (ANTIVERT) tablet 12.5 mg meclizine (ANTIVERT) tablet 12.5 mg 05/11/2020 12:10:20 PM EDT 12.5 m g Oral active 12.5 mg, Oral, T hree Times Daily-PRN, Dizziness, Starting Mon05/11/20 at 1210, For 72 hours [facility] Medication administered onsite potassium & sodium phosphates (PHOS-NAK) 280-160-250 MG 2 pa cket [id number] 05/11/2020 09:30:00 AM EDT 2 {packet} Oral active 2 packet, Oral, Four Times Daily-With Meals & Nightly, First dose on Mon05/11/20 at 0930, For 1 day
Dissolve in 75mls of water or juice.
Each 250 mg packet contains: 250 mg (8 mmol) elemental phosphorous, 164 mg (7.1 mEq) sodium, 278 mg (7.1 mEq) potassium.
[facility] Medication administered onsite Hydrocortisone 10 MG Oral Tablet Hydrocortisone 10 MG Oral Tablet (CORTEF) Hydrocortisone 10 MG Oral Tablet (CORTEF) 05/11/2020 12:00:00 AM EDT 10 mg Oral active Take 1 tablet by lisa th every morning [facility] Folic Acid 1 MG Oral Tablet Folic Acid 1 MG Oral Table t (FOLVITE) Folic Acid 1 MG Oral Tablet (FOLVITE) 05/11/2020 12:00:00 AM EDT 1 mg Oral active Take 1 tablet by mouth daily [facility] Calcium Carbonate 1250 MG / Cholecalcife rol 200 UNT Oral Tablet Calcium Carbonate-Vitamin D 500-200 MG-UNIT Oral Tablet (OSCAL-500) Calcium Carbonate- Vitamin D 500-200 MG-UNIT Oral Tablet (OSCAL-500) 05/11/2020 12:00:00 AM EDT 1 {tbl} Oral active Take 1 tablet by mouth d [facility] Thiamine 100 MG Oral Tablet Thiamine HCl 100 MG Oral T ablet (B-1) Thiamine HCl 100 MG Oral Tablet (B-1) 05/11/2020 12:00:00 AM EDT 100 mg Oral active Take [facility] On[facility] 4 MG Oral Tablet Ondansetron HCl 4 MG Oral Tablet (ZOFRAN) Ondansetron HCl 4 MG Oral Tablet (ZOFRAN) 05/11/2020 12:00:00 AM EDT 4 mg Oral active Take 1 tablet by mouth every 8 (eight) hours as needed for up to 7 days [facility] Meclizine Hydrochloride 12.5 MG Oral Tab let Meclizine HCl 12.5 MG Oral Tablet (ANTIVERT) Meclizine HCl 12.5 MG Oral Tablet (ANTIVERT) 0 12:00:00 AM EDT 12.5 mg Oral active Take 1 t ablet by mouth Three times daily as needed for Dizziness for up to 10 days [facility] Hydrocortisone 5 MG Oral Tablet Hydrocortisone 5 MG Or al Tablet (CORTEF) Hydrocortisone 5 MG Oral Tablet (CORTEF) 05/11/2020 12:00:00 AM EDT 5 mg Oral active Take 1 tablet by mouth ev rayshawn evening [facility] Hydrocortisone 10 MG Oral Tablet Hydrocortisone 10 MG Oral Tablet (CORTEF) Hydrocortisone 10 MG Oral Tablet (CORTEF) 05/11/2020 12:00:00 AM EDT 10 mg Oral aborted Take 1 tablet by lisa th every morning [facility] Aluminum Hydroxide 40 MG/ML / Magnesium Hydroxide 40 MG/ML / Simethicone 4 MG/ML Oral Suspension Alum & Mag Hydroxide-Simeth 200-200-20 MG/5ML Oral Suspension (MAALOX PLUS) Alum & Mag Hydroxide-Simeth 200-200-20 M G/5ML Oral Suspension (MAALOX PLUS) 05/11/2020 12:00:00 AM EDT 30 mL Oral abor rosa Take 30 mLs by mouth every 6 (six) hours as needed (heartburn) [facility] Aluminum Hydroxide 40 MG/ML / Magnesium Hydroxide 40 MG/ML / Simethicone 4 MG/ML Oral Suspension Alum & Mag Hydroxide-Simeth 200-200-20 MG/5ML Oral Suspension (MAALOX PLUS) Alum & Mag Hydroxide-Simeth 200-200-20 M G/5ML Oral Suspension (MAALOX PLUS) 05/11/2020 12:00:00 AM EDT 30 mL Oral acti ve Take 30 mLs by mouth every 6 (six) hours as needed (heartburn) [facility] Meclizine Hydrochloride 12.5 MG Oral Tab let Meclizine HCl 12.5 MG Oral Tablet (ANTIVERT) Meclizine HCl 12.5 MG Oral Tablet (ANTIVERT) 0 12:00:00 AM EDT 12.5 mg Oral aborted Take 1 t ablet by mouth Three times daily as needed for Dizziness for up to 10 days [facility] Hydrocortisone 5 MG Oral Tablet Hydrocortisone 5 MG Or al Tablet (CORTEF) Hydrocortisone 5 MG Oral Tablet (CORTEF) 05/11/2020 12:00:00 AM EDT 5 mg Oral aborted Take 1 tablet by mouth ev rayshawn evening [facility] Hydrocortisone 5 MG Oral Tablet Hydrocortisone 5 MG Or al Tablet (CORTEF) Hydrocortisone 5 MG Oral Tablet (CORTEF) 05/11/2020 12:00:00 AM EDT 5 mg Oral aborted Take 1 tablet by mouth da [facility] Hydrocortisone 5 MG Oral Tablet Hydrocortisone 5 MG Or al Tablet (CORTEF) Hydrocortisone 5 MG Oral Tablet (CORTEF) 05/11/2020 12:00:00 AM EDT 5 mg Oral aborted Take 1 tablet by mouth da [facility] Hydrocortisone 10 MG Oral Tablet hydrocortisone (EDA F) tablet 10 mg hydrocortisone (CORTEF) tablet 10 mg 05/10/2020 09:00:00 AM EDT 10 mg Oral active 10 mg, Oral, Preeti ly Standard, First dose on 05/10/20 at 0900, For 30 days [facility] Medication administered onsite Hydrocortisone 5 MG Oral Tablet hydrocortisone (CORTEF ) tablet 5 mg hydrocortisone (CORTEF) tablet 5 mg 05/09/2020 05:00:00 PM EDT 5 mg Oral active 5 mg, Oral, Daily S tandard, First dose on 05/09/20 at 1700, For 30 days
Take with food.
[facility] Medication administered onsite Oxycodone Hydrochloride 5 MG Oral Tablet oxyCODONE (ROXICODONE) immediate release tablet 2.5 mg oxyCODONE (ROXICODONE) immediate release tablet 2.5 mg 05/09/2020 01:13:10 PM EDT 2.5 mg Oral active 2.5 mg, Oral, Every 4 hours PRN, Moderate Pain (Pain Scale Score 4-6), Starting 05/09/20 at 1313, For 3 days
Oxycodone immediate release is limited to 10 mg per dose. Higher doses ( only) require Pain Service consultation and approval.
[facility] Medication administered onsite Acetaminophen 325 MG Oral Tablet acetaminophen (TYLENO L) tablet 650 mg acetaminophen (TYLENOL) tablet 650 mg 05/09/2020 01:12:58 PM EDT 65 0 mg Oral active 650 mg, Oral, E very 6 hours PRN, Mild Pain (Pain Scale Score 1- 3), Fever, Starting 05/09/20 at 1312, For 30 days
Maximum daily dose of acetaminophen is 3,000 mg from all sources in 24 hours.
[facility] Medication administered onsite ondansetron (ZOFRAN) injection 4 mg 05/09/2020 12:23:17 PM EDT 4 mg Intravenous active [Order 1 Star t] Name: ondansetron (ZOFRAN) injection 4 mg Signed Summary: 4 mg, Intravenous, Every 8 hours PRN, Nausea, Vomiting, Starting 05/09/20 at 1223, For 7 days [Order 1 End] [Order 2 Start] Name: ondansetron (ZOFRAN) tablet 4 mg Signed Summary: 4 mg, Oral, Every 8 hours PRN, Nausea, Vomiting, Starting 05/09/20 at 1223, For 7 days [Order 2 End] [facility] Medication administered onsite iohexol (OMNIPAQUE) 300 MG/ML contrast injection 100 mL [id number] 05/07/2020 09:00:00 PM EDT 100 mL Given by IV completed 100 mL, Given by IV, 1 TIME IMAGING, [facility] 05/07/20 at 2100, For 1 dose [facility] Medication administered onsite iohexol (OMNIPAQUE) 240 MG/ML contrast 20 mL [id number] 06:34:42 PM EDT 20 mL Oral completed 20 mL, Oral, O nce PRN, Contrast, Per Protocol, Starting [facility] 05/07/20 at 1834, For [address] Scanner prior. call center associate to CT.Dilute in 500 mL liquid x1 information services consultant to CT scan - per protocol. Use "Contrast dose chart" link for dosing guidelines.
[facility] Medication administered onsite iohexol (OMNIPAQUE) 240 MG/ML contrast 20 mL [id number] 06:34:42 PM EDT 20 mL Oral completed 20 mL, Oral, O nce PRN, Contrast, Per Protocol, Starting Melissa 05/07/20 at 1834, For [address] to tell RN administration time of first dose. Dilute in 500 mL liquid x1 Now per protocol. Use "Contrast dose chart" link for dosing guidelines.
[facility] Medication administered onsite Magnesium Oxide 400 MG Oral Tablet Magnesium Oxide (MA G-OX) tablet 400 mg Magnesium Oxide (MAG-OX) tablet 400 mg 05/07/2020 02:30:00 PM EDT 4 00 mg Oral completed 400 mg, Oral, D aily Standard, First dose on Melissa 05/07/20 at 1430, For 5 doses [facility] Medication administered onsite TC-99M mebrofenin (CHOLETEC) [address]-1 05/07/2020 12:30:00 PM EDT Intravenous completed Intravenous, Once, [facility] 05/07/20 at 1230, For 1 dose, Imaging Protocol [facility] Medication administered onsite Glucose 50 MG/ML / Potassium Chloride 0. 02 MEQ/ML / Sodium Chloride 0.154 MEQ/ML Injectable Solution dextrose 5 % and 0.9 % NaCl with KCl 20 mEq infusion dextrose 5 % and 0.9 % NaCl with KCl 20 mEq infusion 05/07/2020 09:00:00 AM EDT Intravenous aborted at 75 mL/hr, Intravenous, Continuous, Starting [facility] 05/07/20 at 0900, For 2 days [facility] Medication administered onsite Potassium Chloride 0.02 MEQ/ML / Sodium Chloride 0.154 MEQ/ML Injectable Solution 0.9 % NaCl with KCl 20 mEq infusion 0.9 % NaCl with KCl 20 mEq infusion 05/07/2020 08:00:00 AM EDT Intravenous aborte d at 75 mL/hr, Intravenous, Continuous, Starting [facility] 05/07/20 at 0800, For 24 hours [facility] Medication administered onsite Lactulose 83.3 MG/ML Oral Solution lactulose (CEPHULAC ) packet 10 g lactulose (CEPHULAC) packet 10 g 05/06/2020 09:30:00 AM EDT 10 g Oral active 10 g, Oral, 2 Times Daily, First dose (after last reorder) on Mon05/06/20 at 0930, For 58 doses
Dissolve in 4 oz water. Can hold if pt has 2 bowel movements in a day.
[facility] Medication administered onsite Promethazine Hydrochloride 25 MG/ML Inje ctable Solution promethazine (PHENERGAN) injection 25 mg promethazine (PHENERGAN) injection 25 mg 05/06/2020 08 :59:44 AM EDT 25 mg Intravenous completed 25 mg, Intravenous, Every 6 hours PRN, Nausea, Vomiting, Starting Mon05/06/20 at 0859, For 5 days 1 hour
If ordered intravenous then must be diluted in 50 mL of sodium chloride 0.9 % and administered over 15 minutes. Do NOT give IV push.
[facility] Medication administered onsite Calcium Carbonate 1250 MG / Cholecalcife rol 200 UNT Oral Tablet Calcium Carbonate-Vitamin D 500-200 MG-UNIT Oral Tablet (OSCAL-500) Calcium Carbonate- Vitamin D 500-200 MG-UNIT Oral Tablet (OSCAL-500) 05/06/2020 12:00:00 AM EDT 1 {tbl} Oral aborted Take 1 tablet by [facility] Acetaminophen 325 MG / Hydrocodone George trate 5 MG Oral Tablet HYDROcodone- Acetaminophen 5-325 MG Oral Tablet (LORTAB) HYDROcodone-Acetaminophen 5-325 MG Oral Tablet (LORTAB) 05/06/2020 12:00:00 AM EDT 1 {tbl} Oral aborted Take 1 tablet by mouth every 6 (six) hours as needed for up to 3 days, Max Daily Dose: 4 tablets [facility] Meclizine Hydrochloride 12.5 MG Oral Tab let Meclizine HCl 12.5 MG Oral Tablet (ANTIVERT) Meclizine HCl 12.5 MG Oral Tablet (ANTIVERT) 0 12:00:00 AM EDT 12.5 mg Oral aborted Take 1 t ablet by mouth Three times daily as needed for Dizziness for up to 10 days [facility] Folic Acid 1 MG Oral Tablet Folic Acid 1 MG Oral Table t (FOLVITE) Folic Acid 1 MG Oral Tablet (FOLVITE) 05/06/2020 12:00:00 AM EDT 1 mg Oral aborted Take 1 tablet by mouth daily [facility] Ondansetron 4 MG Oral Tablet Ondansetron HCl 4 MG Oral Tablet (ZOFRAN) Ondansetron HCl 4 MG Oral Tablet (ZOFRAN) 05/06/2020 12:00:00 AM EDT 4 mg Oral aborted Take 1 tablet by mouth every 8 (eight) hours as needed for up to 7 days [facility] Tab-A-Franki/Beta Carotene Oral Tablet [id number] 05/06/2020 12:00: 00 AM EDT 1 {tbl} Oral aborted Take 1 tablet by mouth d [facility] Thiamine 100 MG Oral Tablet Thiamine HCl 100 MG Oral T ablet (B-1) Thiamine HCl 100 MG Oral Tablet (B-1) 05/06/2020 12:00:00 AM EDT 100 mg Oral aborted Take 1 tablet by mouth daily [facility] magnesium sulfate in dextrose 5 % infusion (premix) 1 g 0409 -[id number] 05/05/2020 07:00:00 PM EDT 1 g Intravenous completed 1 g, Intravenous, Administer over 60 Minutes, Once, Mon05/05/20 at 1900, For 1 dose [facility] Medication administered onsite potassium chloride (KLOR-CON) packet 40 mEq [id number] 05/05/2020 07:00:00 PM EDT 40 meq Oral completed 40 mEq , Oral, 2 Times Daily, First dose on Mon05/05/20 at 1900, For 2 doses
Mix in 4 ounces of water or juice
[facility] Medication administered onsite magnesium sulfate in dextrose 5 % infusion (premix) 8 mEq 2705/05/2020 11:30:00 AM EDT 8 meq Intravenous completed 8 mEq, Intravenous, Administer over 60 Minutes, Once, Mon05/05/20 at 1130, For 1 dose
each 8 mEq equivalent to 1 gm
[facility] Medication administered onsite Acetaminophen 325 MG / Hydrocodone George trate 5 MG Oral Tablet HYDROcodone- acetaminophen (LORTAB) 5-325 MG per tablet 1 tablet HYDROcodone-acetaminophen (LORTAB) 5-325 MG per tablet 1 tablet 05/05/2020 11:26:29 AM EDT 1 {tbl} Oral aborted 1 tablet, Oral, Every 6 hours PRN, Moderate Pain (Pain Scale Score 4-6), Severe Pain (Pain Scale Score 7-10), Starting Mon05/05/20 at 1126, For 4 days 2 hours
Maximum daily dose of acetaminophen is 3,000 mg from all sources in 24 hours.
[facility] Medication administered onsite Potassium Chloride 0.02 MEQ/ML / Sodium Chloride 0.154 MEQ/ML Injectable Solution 0.9 % NaCl with KCl 20 mEq infusion 0.9 % NaCl with KCl 20 mEq infusion 05/05/2020 10:00:00 AM EDT Intravenous aborte d at 75 mL/hr, Intravenous, Continuous, Starting Mon05/05/20 at 1000, For 30 days [facility] Medication administered onsite multivitamin tablet 1 tablet [id number] 05/05/2020 09:00:00 AM EDT 1 {tbl} Oral active 1 tablet, Oral , Daily Standard, First dose on Mon05/05/20 at 0900, For 30 days [facility] Medication administered onsite Meclizine Hydrochloride 12.5 MG Oral Tablet meclizine (ANTIVERT) tablet 12.5 mg meclizine (ANTIVERT) tablet 12.5 mg 05/04/2020 07:03:43 PM EDT 12.5 m g Oral completed 12.5 mg, Oral, T hree Times Daily-PRN, Dizziness, Starting Mon05/04/20 at 1903, For 6 days 15 hours [facility] Medication administered onsite Meclizine Hydrochloride 12.5 MG Oral Tablet meclizine (ANTIVERT) tablet 12.5 mg meclizine (ANTIVERT) tablet 12.5 mg 05/04/2020 01:45:00 AM EDT 12.5 m g Oral completed 12.5 mg, Oral, Once, 04/21 at 0145, For 1 dose [facility] Medication administered onsite Oxazepam 10 MG Oral Capsule oxazepam (SERAX) capsule 1 0 mg oxazepam (SERAX) capsule 10 mg 05/03/2020 02:00:00 PM EDT 10 mg Oral comp leted 10 mg, Oral, Three Times Daily Standard, First dose (after last modification) on Mon05/03/20 at 1400, For 1 dose [facility] Medication administered onsite potassium chloride (KLOR-CON) packet 40 mEq [id number] 05/02/2020 08:00:00 AM EDT 40 meq Oral completed 40 mEq , Oral, Once, 05/02/20 at 0800, For 1 dose
Mix in 4 ounces of water or juice
[facility] Medication administered onsite Hydroxyzine Pamoate 25 MG Oral Capsule hydrOXYzine ( STARIL) capsule 25 mg hydrOXYzine (VISTARIL) capsule 25 mg 05/01/2020 09:00:00 PM EDT 25 mg Oral completed 25 mg, Oral, Once, Mon at 2100, For 1 dose [facility] Medication administered onsite gabapentin 100 MG Oral Capsule gabapentin (NEURONTIN) capsule 100 mg gabapentin (NEURONTIN) capsule 100 mg 05/01/2020 05:00:00 PM EDT 100 mg Oral aborted 100 mg, Oral, Three Times D aily Standard, First dose on Mon05/01/20 at 1700, For 30 days [facility] Medication administered onsite Potassium Chloride 0.1 MEQ/ML Injectable Solution potassium chloride 10 mEq in 100 mL IVPB (premix) potassium chloride 10 mEq in 100 mL IVPB (premix) 05/01/2020 04:00:00 PM EDT 10 meq Intravenous completed 10 mEq, Intravenous, Every 1 hour, First dose (after last modification) on Mon05/01/20 at 1600, For 2 doses [facility] Medication administered onsite Potassium Chloride 0.1 MEQ/ML Injectable Solution potassium chloride 10 mEq in 100 mL IVPB (premix) potassium chloride 10 mEq in 100 mL IVPB (premix) 05/01/2020 12:00:00 PM EDT 10 meq Intravenous aborted 10 mEq, Intravenous, Every 1 hour, First dose on Mon05/01/20 at 1200, For 4 doses [facility] Medication administered onsite Magnesium Oxide 400 MG Oral Tablet Magnesium Oxide (MA G-OX) tablet 400 mg Magnesium Oxide (MAG-OX) tablet 400 mg 05/01/2020 09:00:00 AM EDT 4 00 mg Oral completed 400 mg, Oral, 2 Times Daily, First dose on Mon05/01/20 at 0900, For 1 dose [facility] Medication administered onsite potassium & sodium phosphates (PHOS-NAK) 280-160-250 MG 1 pa cket [id number] 04/30/2020 05:30:00 PM EDT 1 {packet} Oral completed 1 packet, Oral, Before Meals & Nightly - Four Times Daily, First dose on Mon04/30/20 at 1730, For 1 dose
Dissolve in 75mls of water or juice.
Each 250 mg packet contains: 250 mg (8 mmol) elemental phosphorous, 164 mg (7.1 mEq) sodium, 278 mg (7.1 mEq) potassium.
[facility] Medication administered onsite Calcium Carbonate 1250 MG / Cholecalcife rol 200 UNT Oral Tablet calcium-vitamin D (OSCAL-500) 500-200 MG-UNIT per tablet 1 tablet calcium-vitamin D (OSCAL-500) 500-200 MG-UNIT per tablet 1 tablet 04/30/2020 09:00:00 AM EDT 1 {tbl } Oral active 1 tablet, Oral, Daily Standard, First dose on Mon04/30/20 at 0900, For 30 days [facility] Medication administered onsite magnesium sulfate in dextrose 5 % infusion (premix) 8 mEq 04 [id number] 04/29/2020 02:00:00 PM EDT 8 meq Intravenous completed 8 mEq, Intravenous, Administer over 60 Minutes, Once, Mon04/29/20 at 1400, For 1 dose
each 8 mEq equivalent to 1 gm
[facility] Medication administered onsite sodium chloride (preservative free) 0.9 % flush 10 mL 04/29/2020 09:00:00 AM EDT 10 mL Intravenous active [Ord er 1 Start] Name: Midline Catheter Insertion Signed Summary: Routine, ONCE, Mon04/28/20 at 2354, For 1 occurrence
Reason for MIDLINE insertion: Access [Order 1 End] [Order 2 Start] Name: sodium chloride (preservative free) 0.9 % flush 10 mL Signed Summary: 10 mL, Intravenous, Every 12 hours Standard, First dose (after last modification) on Mon04/29/20 at 0900, For 29 days
When catheter is not in use flush with 10mL Sodium Chloride. Every 12h. Reference CM P-05 Extended Dwell/Midline Peripheral Catheter.
[Order 2 End] [Order 3 Start] Name: sodium chloride (preservative free) 0.9 % flush 10 mL Signed Summary: 10 mL, Intravenous, PRN, Line Care, Starting Mon04/28/20 at 2353, For 683 hours
Flush with 10 mL Sodium Chloride before and after infusions or blood sampling. Reference CM-05 Extended Dwell/Midline Peripheral Catheter.
[Order 3 End] [facility] Medication administered onsite Hydroxyzine Hydrochloride 10 MG Oral Tablet hydrOXYzin e (ATARAX) tablet 10 mg hydrOXYzine (ATARAX) tablet 10 mg 04/29/2020 12:30:00 AM EDT 10 mg Oral completed 10 mg, Oral, Once, Mon04/29/20 at 0030, For 1 dose [facility] Medication administered onsite Dextromethorphan Hydrobromide 2 MG/ML / Guaifenesin 20 MG/ML Oral Suspension guaifenesin-dextromethorphan (ROBITUSSIN DM) 100-10 MG/5ML syrup 5 mL guaifenesin-dextromethorphan (ROBITUSSIN DM) 100-10 MG/5ML syrup 5 mL 04/28/2020 07:00:00 PM EDT 5 mL Oral active 5 mL, Oral, Every 4 hours PRN, Cough, Starting Mon04/28/20 at 1900, For 30 days [facility] Medication administered onsite Potassium Chloride 0.1 MEQ/ML Injectable Solution potassium chloride 10 mEq in 100 mL IVPB (premix) potassium chloride 10 mEq in 100 mL IVPB (premix) 04/28/2020 04:00:00 PM EDT 10 meq Intravenous completed 10 mEq, Intravenous, Every 1 hour, First dose (after last reorder) on Mon04/28/20 at 1600, For 4 doses [facility] Medication administered onsite phytonadione (VITAMIN K1) 10 mg in dextrose 5 % 50 mL IVPB 04/28/2020 02:30:00 PM EDT 10 mg Intravenous completed 10 mg, Intravenous, Administer over 15 Minutes, Once, Mon04/28/20 at 1430, For 1 dose [facility] Medication administered onsite Oxycodone Hydrochloride 5 MG Oral Tablet oxyCODONE (ROXICODONE) immediate release tablet 5 mg oxyCODONE (ROXICODONE) immediate release tablet 5 mg 04/28/2020 01:21:31 PM EDT 5 mg Oral aborted 5 mg, Oral, Every 4 hours PRN, Severe Pain (Pain Scale Score 7-10), Starting Mon04/28/20 at 1321, For 2 days 17 hours
Oxycodone immediate release is limited to 10 mg per dose. Higher doses ( only) require Pain Service consultation and approval.
[facility] Medication administered onsite Oxazepam 10 MG Oral Capsule oxazepam (SERAX) capsule 1 0 mg oxazepam (SERAX) capsule 10 mg 04/27/2020 09:00:00 PM EDT 10 mg Oral abor rosa 10 mg, Oral, Three Times Daily Standard, First dose (after last modification) on Mon04/27/20 at 2100, For 24 doses [facility] Medication administered onsite Lactulose 83.3 MG/ML Oral Solution lactulose (CEPHULAC ) packet 10 g lactulose (CEPHULAC) packet 10 g 04/27/2020 09:00:00 PM EDT 10 g Oral aborted 10 g, Oral, 2 Times Daily, First dose (after last modification) on Mon04/27/20 at 2100, For 58 doses
Dissolve in 4 oz water
[facility] Medication administered onsite sodium chloride (preservative free) 0.9 % flush 10 mL 04/27/2020 02:17:31 PM EDT 10 mL Intravenous active [Ord er 1 Start] Name: sodium chloride (preservative free) 0.9 % flush 10 mL Signed Summary: 10 mL, Intravenous, PRN, Line Care, Starting Mon04/27/20 at 1417, For 30 days
Verify blood return before use. Flush with 10 mL of Sodium Chloride 0.9 % before and after infusions or blood sampling followed-by 2 mL Heparin 10 units/mL to lock. Reference Policy C-34 Central Line Policy.
[Order 1 End] [Order 2 Start] Name: heparin lock flush 10 UNIT/ML injection 20 Units Signed Summary: 20 Units, Intravenous, PRN, Line Care, Starting Mon04/27/20 at 1417, For 30 days
Verify blood return before use. Flush with 10 mL of Sodium Chloride 0.9 % before and after infusions or blood sampling followed-by 2 mL Heparin 10 units/mL to lock.Reference Policy C-34H Central Line Policy.
[Order 2 End] [Order 3 Start] Name: sodium chloride (preservative free) 0.9 % flush 10 mL Signed Summary: 10 mL, Intravenous, Every 12 hours, First dose on Mon04/27/20 at 1430, For 30 days
WHEN NOT IN USE - Verify blood return before use. Flush with 10 mL of Sodium Chloride 0.9 % and 2 mL Heparin 10 units/mL.Reference Policy C-34 Central Line Policy.
[Order 3 End] [Order 4 Start] Name: heparin lock flush 10 UNIT/ML injection 20 Units Signed Summary: 20 Units, Intravenous, Every 12 hours, First dose on Mon04/27/20 at 1430, For 30 days
WHEN NOT IN USE - Verify blood return before use. Flush with 10 mL of Sodium Chloride 0.9 % and 2 mL Heparin 10 units/mL.Reference Policy C-34 Central Line Policy.
[Order 4 End] [facility] Medication administered onsite Potassium Chloride 0.1 MEQ/ML Injectable Solution potassium chloride 10 mEq in 100 mL IVPB (premix) potassium chloride 10 mEq in 100 mL IVPB (premix) 04/27/2020 12:00:00 PM EDT 10 meq Intravenous completed 10 mEq, Intravenous, Administer over 60 Minutes, Every 1 hour, First dose on Mon04/27/20 at 1200, For 4 doses [facility] Medication administered onsite magnesium sulfate in dextrose 5 % infusion (premix) 8 mEq 04 09-6727-23 04/27/2020 12:00:00 PM EDT 8 meq Intravenous completed 8 mEq, Intravenous, Administer over 60 Minutes, Every 1 hour, First dose on Mon04/27/20 at 1200, For 2 doses
each 8 mEq equivalent to 1 gm
[facility] Medication administered onsite Vitamin K 1 5 MG Oral Tablet phytonadione (MEPHYTON) t ablet 10 mg phytonadione (MEPHYTON) tablet 10 mg 04/27/2020 11:45:00 AM EDT 10 mg Oral completed 10 mg, Oral, Once, Mon04/27/20 at 1145, For 1 dose [facility] Medication administered onsite prednisolone 3 MG/ML Oral Solution predn isoLONE (ORAPRED) 15 MG/5ML solution 40 mg prednisoLONE (ORAPRED) 15 MG/5ML solution 40 mg 04/27/2020 11:45 :00 AM EDT 40 mg Oral aborted 40 mg, Ora l, Daily Standard, First dose on 04/27/20 at 1145, For 10 doses [facility] Medication administered onsite Prednisone 20 MG Oral Tablet predniSONE (DELTASONE) ta blet 40 mg predniSONE (DELTASONE) tablet 40 mg 04/27/2020 09:00:00 AM EDT 40 mg Oral aborted 40 mg, Oral, Daily Standard, First dose on 04/27/20 at 0900, For 30 days
Take with food.
[facility] Medication administered onsite Lactulose 83.3 MG/ML Oral Solution lactulose (CEPHULAC ) packet 20 g lactulose (CEPHULAC) packet 20 g 04/26/2020 09:00:00 PM EDT 20 g Oral aborted 20 g, Oral, 2 Times Daily, First dose on 04/26/20 at 2100, For 30 days
Dissolve in 4 oz water
[facility] Medication administered onsite Potassium Chloride 0.1 MEQ/ML Injectable Solution potassium chloride 10 mEq in 100 mL IVPB (premix) potassium chloride 10 mEq in 100 mL IVPB (premix) 04/26/2020 09:00:00 PM EDT 10 meq Intravenous completed 10 mEq, Intravenous, Every 1 hour, First dose on 04/26/20 at 2100, For 4 doses [facility] Medication administered onsite Oxazepam 10 MG Oral Capsule oxazepam (SERAX) capsule 2 0 mg oxazepam (SERAX) capsule 20 mg 04/26/2020 04:00:00 PM EDT 20 mg Oral abor rosa 20 mg, Oral, Three Times Daily Standard, First dose (after last modification) on 04/26/20 at 1600, For 18 doses [facility] Medication administered onsite dextrose 5 %-0.9 % sodium chloride infusion [id number] 04/26/2020 02:45:00 PM EDT Intravenous completed at 100 mL/hr, Intravenous, Continuous, Starting 04/26/20 at 1445, For 2 days [facility] Medication administered onsite Vitamin K 1 5 MG Oral Tablet phytonadione (MEPHYTON) t ablet 10 mg phytonadione (MEPHYTON) tablet 10 mg 04/26/2020 01:30:00 PM EDT 10 mg Oral completed 10 mg, Oral, Once, [place] 04/26/20 at 1330, For 1 dose [facility] Medication administered onsite Oxazepam 10 MG Oral Capsule oxazepam (SERAX) capsule 1 0 mg oxazepam (SERAX) capsule 10 mg 04/26/2020 11:30:00 AM EDT 10 mg Oral comp leted 10 mg, Oral, Once, [place] 04/26/20 at 1130, For 1 dose [facility] Medication administered onsite sodium chloride 0.9 % bolus 1,000 mL [id number] 04/26/2020 10:00: 00 AM EDT 1000 mL Intravenous completed 1,000 mL , Intravenous, Once, [place] 04/26/20 at 1000, For 1 dose [facility] Medication administered onsite magnesium sulfate in dextrose 5 % infusion (premix) 8 mEq 04 -6727-23 04/26/2020 09:00:00 AM EDT 8 meq Intravenous completed 8 mEq, Intravenous, Administer over 60 Minutes, Every 1 hour, First dose on [place] 04/26/20 at 0900, For 3 doses
each 8 mEq equivalent to 1 gm
[facility] Medication administered onsite Pentoxifylline 400 MG Extended Release O ral Tablet pentoxifylline (TRENTAL) CR tablet 400 mg pentoxifylline (TRENTAL) CR tablet 400 mg 04/25/2020 0 6:00:00 PM EDT 400 mg Oral aborted 400 mg, Oral, Three Times Daily-With Meals, First dose on [facility] 04/25/20 at 1800, For 30 days
Take with food.
[facility] Medication administered onsite Oxazepam 10 MG Oral Capsule oxazepam (SERAX) capsule 1 0 mg oxazepam (SERAX) capsule 10 mg 04/25/2020 04:00:00 PM EDT 10 mg Oral abor rosa 10 mg, Oral, Three Times Daily Standard, First dose on [facility] 04/25/20 at 1600, For 7 days [facility] Medication administered onsite Potassium Chloride 0.1 MEQ/ML Injectable Solution potassium chloride 10 mEq in 100 mL IVPB (premix) potassium chloride 10 mEq in 100 mL IVPB (premix) 04/25/2020 02:00:00 PM EDT 10 meq Intravenous completed 10 mEq, Intravenous, Every 1 hour, First dose (after last reorder) on 04/25/20 at 1400, For 4 doses [facility] Medication administered onsite sodium chloride 0.9 % 1,000 mL with MVI adult 10 mL, folic acid 1 mg, magnesium sulfate 16 mEq, thiamine (B-1) 100 mg infusion 04/25/2020 09:00:00 AM EDT Intravenous aborted Intravenous, Continuous, Starting 04/25/20 at 0900, For 3 days [facility] Medication administered onsite pantoprazole 4 MG/ML Injectable Solution pantoprazole (PROTONIX) injection 40 mg pantoprazole (PROTONIX) injection 40 mg 04/25/2020 09:00:00 AM EDT 40 mg Intravenous active 40 mg, Intrav enous, Daily Standard, First dose on 04/25/20 at 0900, For 30 days
Dilute with 10 mL of 0.9% NaCl.Give IVP over 2 minutes. Flush before and after.
[facility] Medication administered onsite 0.4 ML Enoxaparin sodium 100 MG/ML Prefi lled Syringe enoxaparin sodium (LOVENOX) injection 40 mg enoxaparin sodium (LOVENOX) injection 40 mg 04/25/2020 09:00:00 AM EDT 40 mg Subcutaneous aborted 40 mg, Subcutaneous, Daily Standard, First dose on 04/25/20 at 0900, For 30 days
Non Patients: body weight < 150 kg, CrCl > 30 mL/min. Guidelines for Lovenox:MUST wait 24 hours before starting Enoxaparin if patient has epidural catheter.D/C Enoxaparin 10-12 hours prior to removing epidural catheter.May restart Enoxaparin 24 hours after epidural catheter has been removed.
[facility] Medication administered onsite Thiamine 100 MG Oral Tablet thiamine (B-1) tablet 100 mg thiamine (B-1) tablet 100 mg 04/25/2020 09:00:00 AM EDT 100 mg Oral active 100 mg, Oral, Daily Standard, First dose on 04/25/20 at 0900, For 30 days [facility] Medication administered onsite Folic Acid 1 MG Oral Tablet folic acid (FOLVITE) table t 1 mg folic acid (FOLVITE) tablet 1 mg 04/25/2020 09:00:00 AM EDT 1 mg Oral active 1 mg, Oral, Daily Standard, First dose on 04/25/20 at 0900, For 30 days [facility] Medication administered onsite Potassium Chloride 0.1 MEQ/ML Injectable Solution potassium chloride 10 mEq in 100 mL IVPB (premix) potassium chloride 10 mEq in 100 mL IVPB (premix) 04/25/2020 08:00:00 AM EDT 10 meq Intravenous completed 10 mEq, Intravenous, Every 1 hour, First dose on 04/25/20 at 0800, For 4 doses [facility] Medication administered onsite potassium chloride (K-DUR) dissolvable tablet 40 mEq [id number] 04/25/2020 08:00:00 AM EDT 40 meq Oral completed 40 mEq, Oral, Once, 04/25/20 at 0800, For 1 dose
Do not crush or chew
[facility] Medication administered onsite 50 ML Magnesium Sulfate 40 MG/ML Injecti on magnesium sulfate infusion 2 g/50 mL (premix) magnesium sulfate infusion 2 g/50 mL (premix) 04/25/20 08:00:00 AM EDT 16 meq Intravenous completed 16 mEq, Intravenous, Administer over 60 Minutes, Once, 04/25/20 at 0800, For 1 dose
each 8 mEq equivalent to 1 gm
[facility] Medication administered onsite insulin lispro (HumaLOG) injection LOW DOSE EATING INS ULIN patients 1-8 Units [id number] 04/25/2020 08:00:00 AM EDT U Subcutaneous aborted 1-8 Units, Subcutaneous, Three Times Daily-With Meals, First dose on 04/25/20 at 0800, For 30 days
Nursing MUST open the 'SQ Insulin Dosing Charts' Sidebar Report, or, the Patient Summary or Summary Report within the ED.
[facility] Medication administered onsite iohexol (OMNIPAQUE) 300 MG/ML contrast injection 100 mL 1776 02 04/25/2020 05:45:00 AM EDT 100 mL Given by IV completed 100 mL, Given by IV, 1 TIME IMAGING, 04/25/20 at 0545, For 1 dose [facility] Medication administered onsite lactated ringers bolus 2,000 mL [id number] 04/25/2020 05:00:00 AM EDT 2000 mL Intravenous completed 2,000 mL , Intravenous, Once, 04/25/20 at 0500, For 1 dose [facility] Medication administered onsite diazePAM (VALIUM) injection 10 mg [id number] 04/25/2020 04:00:00 AM EDT 10 mg Intravenous aborted 10 mg, I ntravenous, Every 1 hour, First dose on 04/25/20 at 0400, For 4 doses
Maximum of 40 mg in 4 hour period. If patient is sleeping, do not wake them to administer Diazepam or to assess the CIWA score. Assess once patient awakens.
[facility] Medication administered onsite morphine sulfate (PF) injection 4 mg [id number] 04/25/2020 03:28: 20 AM EDT 4 mg Intravenous aborted 4 mg, In travenous, Every 4 hours PRN, Moderate Pain (Pain Scale Score 4-6), Severe Pain (Pain Scale Score 7-10), Starting 04/25/20 at 0328, For 3 days [facility] Medication administered onsite Calcium Chloride 0.0014 MEQ/ML / Potassi um Chloride 0.004 MEQ/ML / Sodium Chloride 0.103 MEQ/ML / Sodium Lactate 0.028 MEQ/ML Injectable Solution lactated ringers infusion lactated ringers infusion 04/25/2020 03:15:00 AM EDT 100 mL/h Intravenous aborted at 100 m L/hr, Intravenous, Continuous, Starting 04/25/20 at 0315, For 30 days [facility] Medication administered onsite dextrose 50 % IV solution 25 mL [id number] 04/25/2020 03:04:32 AM E DT 25 mL Intravenous active 25 mL, Intrav enous, PRN, Other, blood glucose <55, Starting 04/25/20 at 0304, For 30 days
Not for midline administration.
[facility] Medication administered onsite Glucagon 1 MG Injection glucagon (human recombinant) ( GLUCAGEN) injection 1 mg glucagon (human recombinant) (GLUCAGEN) injection 1 mg 04/25/2020 03:04:32 AM EDT 1 mg Intramuscular active 1 mg, Intramuscular, PRN, for glucose <55 without IV access, Starting 04/25/20 at 0304, For 30 days [facility] Medication administered onsite Glucose 0.417 MG/MG Oral Gel glucose (GLUTOSE) 40 % or al gel 15 g glucose (GLUTOSE) 40 % oral gel 15 g 04/25/2020 03:04:32 AM EDT 15 g Oral active 15 g, Oral, PRN, Low blood s ugar, for gluose 55-69 mg/dl and able to take PO, Starting 04/25/20 at 0304, For 30 days [facility] Medication administered onsite Meclizine Hydrochloride 25 MG Chewable Tablet Meclizin e HCl 25 MG Meclizine HCl 25 MG 02/07/2020 12:00:00 AM EDT 1.0 {tablet_as_needed} active Meclizine HCl 25 MG [facility]CW[facility] Naltrexone hydrochloride 50 MG Oral Tablet Naltrexone HCl 50 MG Naltrexone HCl 50 MG 02/07/2020 12:00:00 AM EDT 1.0 {tablet} activ e Naltrexone HCl 50 MG eCW1 ([facility]) doxycycline hyclate 50 MG Oral Capsule Doxycycline Hyc late 50 MG Doxycycline Hyclate 50 MG 01/01/2020 12:00:00 AM EDT 1.0 {capsule} active Doxycycline Hyclate 50 MG eCW1 ([facility]) doxycycline hyclate 50 MG Oral Capsule Doxycycline Hyc late 50 MG Doxycycline Hyclate 50 MG 01/01/2020 12:00:00 AM EDT 1.0 {capsule} active Doxycycline Hyclate 50 MG eCW1 ([facility]) doxycycline hyclate 50 MG Oral Capsule Doxycycline Hyc late 50 MG Doxycycline Hyclate 50 MG 01/01/2020 12:00:00 AM EDT 1.0 {capsule} active Doxycycline Hyclate 50 MG eCW1 ([facility]) doxycycline hyclate 50 MG Oral Capsule Doxycycline Hyc late 50 MG Doxycycline Hyclate 50 MG 01/01/2020 12:00:00 AM EDT 1.0 {capsule} active Doxycycline Hyclate 50 MG eCW1 ([facility]) doxycycline hyclate 50 MG Oral Capsule Doxycycline Hyc late 50 MG Doxycycline Hyclate 50 MG 01/01/2020 12:00:00 AM EDT 1.0 {capsule} active Doxycycline Hyclate 50 MG eCW1 ([facility]) doxycycline hyclate 50 MG Oral Capsule Doxycycline Hyc late 50 MG Doxycycline Hyclate 50 MG 01/01/2020 12:00:00 AM EDT 1.0 {capsule} active Doxycycline Hyclate 50 MG eCW1 ([facility]) doxycycline hyclate 50 MG Oral Capsule Doxycycline Hyc late 50 MG Doxycycline Hyclate 50 MG 01/01/2020 12:00:00 AM EDT 1.0 {capsule} active Doxycycline Hyclate 50 MG eCW1 ([facility]) doxycycline hyclate 50 MG Oral Capsule Doxycycline Hyc late 50 MG Doxycycline Hyclate 50 MG 01/01/2020 12:00:00 AM EDT 1.0 {capsule} active Doxycycline Hyclate 50 MG eCW1 ([facility]) doxycycline hyclate 50 MG Oral Capsule Doxycycline Hyc late 50 MG Doxycycline Hyclate 50 MG 01/01/2020 12:00:00 AM EDT 1.0 {capsule} active Doxycycline Hyclate 50 MG eCW1 ([facility]) doxycycline hyclate 50 MG Oral Capsule Doxycycline Hyc late 50 MG Doxycycline Hyclate 50 MG 01/01/2020 12:00:00 AM EDT active 1 capsule eCW1 ([facility]) doxycycline hyclate 50 MG Oral Capsule Doxycycline Hyc late 50 MG Doxycycline Hyclate 50 MG 01/01/2020 12:00:00 AM EDT 1.0 {capsule} active Doxycycline Hyclate 50 MG eCW1 ([facility]) Metformin hydrochloride 500 MG Oral Tablet Metformin H Cl 500 MG Metformin HCl 500 MG 11/11/2019 12:00:00 AM EDT active 1 tablet with a meal eCW1 ([facility]) adapalene 1 MG/ML Topical Lotion [Differin] Differin 0.1 % D ifferin 0.1 % 10/14/2019 12:00:00 AM EST active 1 application in the evening eCW1 ([facility]) Clindamycin 10 MG/ML Topical Lotion [Cleocin-T] Cleocin-T 1 % Cleocin-T 1 % 10/14/2019 12:00:00 AM EST active 1 application eCW1 ([facility]) Clindamycin 10 MG/ML Topical Lotion [Cleocin-T] Cleocin-T 1 % Cleocin-T 1 % 10/14/2019 12:00:00 AM EST active 1 application eCW1 ([facility]) adapalene 1 MG/ML Topical Lotion [Differin] Differin 0.1 % D ifferin 0.1 % 10/14/2019 12:00:00 AM EST active 1 application in the evening eCW1 ([facility]) Metformin hydrochloride 500 MG Oral Tabl et metFORMIN HCl 500 MG Oral Tablet (GLUCOPHAGE) metFORMIN HCl 500 MG Oral Tablet (GLUCOPHAGE) 500 m g Oral aborted Take 500 mg by mouth Two times d aily with meals [facility] atorvastatin 20 MG Oral Tablet Atorvastatin Calcium 20 MG Oral Tablet (LIPITOR) Atorvastatin Calcium 20 MG Oral Tablet (LIPITOR) 20 mg Oral aborted Take 20 mg by mouth daily [facility] doxycycline hyclate 100 MG Oral Capsule Doxycycline Hyclate 100 MG Oral Capsule (VIBRAMYCIN) Doxycycline Hyclate 100 MG Oral Capsule (VIBRAMYCIN) 100 mg Oral aborted Take 100 mg by mouth daily For acne [facility] Insurance Providers Payer name Policy type / Coverage type Policy ID Covered green party ID Covered green party's relationship to awan Policy Awan Plan Information RAYMOND [id number] SP [id number] [facility] [id number] S [id number] RAYMOND I [id number] Self [id number] MEDICAID [id number] SP [id number] MEDICAID M [id number] S [id number] ANSI-Not a Secondary Insurance [id number] ANSI-Commercial [id number] ANSI-Medicaid [id number] ANSI-Medicaid [id number] ANSI-Not a Secondary Insurance [id number] ANSI-Commercial [id number] ANSI-Commercial [id number] ANSI-Not a Secondary Insurance [id number] ANSI-Medicaid [id number] ANSI-Commercial [id number] ANSI-Not a Secondary Insurance [id number] ANSI-Medicaid [id number] ANSI-Medicaid [id number] ANSI-Commercial [id number] ANSI-Not a Secondary Insurance [id number] ANSI-Not a Secondary Insurance [id number] ANSI-Medicaid [id number] ANSI-Commercial [id number] SELF PAY ONLY [id number] SP [id number] ANSI-Not a Secondary Insurance [id number] ANSI-Medicaid [id number] ANSI-Commercial [id number] ANSI-Not a Secondary Insurance [id number] ANSI-Medicaid [id number] ANSI-Commercial [id number] ANSI-Medicaid [id number] ANSI-Not a Secondary Insurance [id number] ANSI-Commercial [id number] RAYMOND [id number] SP [id number] ANSI-Medicaid [id number] ANSI-Commercial [id number] ANSI-Medicaid [id number] ANSI-Commercial [id number] ANSI-Commercial [id number] RAYMOND [id number] SP [id number] SELF PAY UNAVAILABLE SP UNAVAILA BLE Problems, Conditions, and Diagnoses Code Display Name Description Problem Type Effective Dates Data Source(s) G62.9 [id number] Peripheral polyneuropathy Problem 07/27/2020 12:00:00 AM EST [facility]) K70.31 [id number] Ascites due to alcoholic cirrhosis Pr oblem 07/27/2020 12:00:00 AM EST eCW1 ([facility]) E80.6 [id number] Hyperbilirubinemia Problem 06/09/2020 12:00: 00 AM EDT eCW1 ([facility]) 31178194 Essential hypertension Essential hypertension Problem 05/19/2020 12:00:00 AM EDT [facility]WAINE ([facility], ) F10.230 Alcohol dependence with withdrawal, unco mplicated Alcohol dependence with withdrawal, uncomplicated Diagnosis 04/25/2020 03:14:56 AM EDT [facility] K70.10 Alcoholic hepatitis without ascites Alcoholic he patitis without ascites Diagnosis 04/25[facility]2020 [facility] 04/25/2020 02:36:00 AM ED [facility] obstructive liver obstructive liver Diagnosis 04/25/2020 02:36:00 AM [facility] Surgeries/Procedures Procedure Description Date Indications Data Source(s) POCT GLUCOSE, DOCKED POCT GLUCOSE, DOCKED Routine 05/11/2020 12:32 PM EDT 05/11/2020 12:32:00 PM [facility] POCT GLUCOSE, DOCKED POCT GLUCOSE, DOCKED Routine 05/11/2020 8:31 AM EDT 05/11/2020 08:31:00 AM [facility] PROTHROMBIN TIME PROTIME INR Routine 05/11/2020 4:26 AM EDT 05/11/2020 04:26:00 AM [facility] PHOSPHORUS INORGANIC PHOSPHORUS LEVEL Routine 05/11/2020 4:26 AM E DT 05/11/2020 04:26:00 AM [facility] MAGNESIUM MAGNESIUM LEVEL Routine 05/11/2020 4:26 AM EDT 05/11/2020 04:26:00 AM [facility] HEPATIC FUNCTION PANEL HEPATIC FUNCTION PANEL A Routine 05/11/2020 4:26 AM EDT 05/11/2020 04:26:00 AM EDT [facility] COVID-19 PCR COVID-19 PCR Routine 05/10/2020 10:03 PM EDT 05/10/2020 10:03:00 PM [facility] GLUCOSE QUANTITATIVE BLOOD XCPT REAGENT STRIP POCT GLUCOSE, DOC KED Routine 05/10/2020 9:46 PM EDT 05/10/2020 09:46:00 PM [facility] GLUCOSE QUANTITATIVE BLOOD XCPT REAGENT STRIP POCT GLUCOSEIVANA Routine 05/10/2020 4:53 PM EDT 05/10/2020 04:53:00 PM [facility] GLUCOSE QUANTITATIVE BLOOD XCPT REAGENT STRIP POCT GLUCOSEIVANA Routine 05/10/2020 12:15 PM EDT 05/10/2020 12:15:00 PM [facility] GLUCOSE QUANTITATIVE BLOOD XCPT REAGENT STRIP POCT GLUCOSE, IVANA TRIMBLE Routine 05/10/2020 8:17 AM EDT 05/10/2020 08:17:00 AM [facility] PROTHROMBIN TIME PROTIME INR Routine 05/10/2020 3:41 AM EDT 05/10/2020 03:41:00 AM [facility] PHOSPHORUS INORGANIC PHOSPHORUS LEVEL Routine 05/10/2020 3:41 AM E DT 05/10/2020 03:41:00 AM [facility] MAGNESIUM MAGNESIUM LEVEL Routine 05/10/2020 3:41 AM EDT 05/10/2020 03:41:00 AM [facility] HEPATIC FUNCTION PANEL HEPATIC FUNCTION PANEL A Routine 05/10/2020 3:41 AM EDT 05/10/2020 03:41:00 AM EDT [facility] GLUCOSE QUANTITATIVE BLOOD XCPT REAGENT STRIP POCT GLUCOSEIVANA Routine 05/09/2020 9:17 PM EDT 05/09/2020 09:17:00 PM [facility] GLUCOSE QUANTITATIVE BLOOD XCPT REAGENT STRIP POCT GLUCOSEIVANA Routine 05/09/2020 5:14 PM EDT 05/09/2020 05:14:00 PM [facility] BLOOD COUNT LEUKOCYTE WBC AUTOMATED WBC Routine 05/09/2020 2 :17 PM EDT 05/09/2020 02:17:00 PM [facility] XR CHEST FRONTAL ONLY [id number] XR CHEST FRONTAL ONLY [id number] Urgent 05/09/2020 2:05 PM EDT 05/09/2020 02:05:46 PM EDT [facility] URNLS DIP STICK/TABLET REAGENT AUTO MICROSCOPY URINAL YSIS WITH REFLEX URINE CULTURE Routine 05/09/2020 1:48 PM EDT 05/09/2020 01:48 :00 PM [facility] CULTURE BACTERIAL BLOOD AEROBIC W/ID ISOLATES BLOOD CULTURE R outine 05/09/2020 1:48 PM EDT 05/09/2020 01:48:00 PM EDT [facility] CULTURE BACTERIAL BLOOD AEROBIC W/ID ISOLATES BLOOD CULTURE R outine 05/09/2020 1:48 PM EDT 05/09/2020 01:48:00 PM EDT [facility] GLUCOSE QUANTITATIVE BLOOD XCPT REAGENT STRIP POCT GLUCOSE, DOC KED Routine 05/09/2020 12:22 PM EDT 05/09/2020 12:22:00 PM [facility] CORTISOL TOTAL CORTISOL Routine 05/09/2020 9:49 AM EDT 05/09/2020 09:49:00 AM [facility] GLUCOSE QUANTITATIVE BLOOD XCPT REAGENT STRIP POCT GLUCOSE, IVANA TRIMBLE Routine 05/09/2020 8:18 AM EDT 05/09/2020 08:18:00 AM [facility] PROTHROMBIN TIME PROTIME INR Routine 05/09/2020 4:33 AM EDT 05/09/2020 04:33:00 AM [facility] PHOSPHORUS INORGANIC PHOSPHORUS LEVEL Routine 05/09/2020 4:33 AM E DT 05/09/2020 04:33:00 AM [facility] MAGNESIUM MAGNESIUM LEVEL Routine 05/09/2020 4:33 AM EDT 05/09/2020 04:33:00 AM [facility] CORTISOL TOTAL CORTISOL Routine 05/09/2020 4:33 AM EDT 05/09/2020 04:33:00 AM [facility] HEPATIC FUNCTION PANEL HEPATIC FUNCTION PANEL A Routine 05/09/2020 4:33 AM EDT 05/09/2020 04:33:00 AM EDT [facility] GLUCOSE QUANTITATIVE BLOOD XCPT REAGENT STRIP POCT GLUCOSE, IVANA TRIMBLE Routine 05/08/2020 10:08 PM EDT 05/08/2020 10:08:00 PM [facility] GLUCOSE QUANTITATIVE BLOOD XCPT REAGENT STRIP POCT GLUCOSE, DOC KEEdmundo Routine 05/08/2020 4:56 PM EDT 05/08/2020 04:56:00 PM [facility] GLUCOSE QUANTITATIVE BLOOD XCPT REAGENT STRIP POCT GLUCOSE, DOC KED Routine 05/08/2020 12:39 PM EDT 05/08/2020 12:39:00 PM [facility] ACETONE/OTHER KETONE BODIES SERUM QUANTITATIVE BETAHYDROXYBUTYR ATE Routine 05/08/2020 10:29 AM EDT 05/08/2020 10:29:00 AM [facility] BLOOD COUNT COMPLETE AUTOMATED CBC Routine 05/08/2020 10:29 A M EDT 05/08/2020 10:29:00 AM [facility] BASIC METABOLIC PANEL CALCIUM TOTAL BASIC METABOLIC PANEL Routi ne 05/08/2020 10:29 AM EDT 05/08/2020 10:29:00 AM EDT [facility] GLUCOSE QUANTITATIVE BLOOD XCPT REAGENT STRIP POCT GLUCOSE, DOC KED Routine 05/08/2020 8:37 AM EDT 05/08/2020 08:37:00 AM [facility] PROTHROMBIN TIME PROTIME INR Routine 05/08/2020 5:20 AM EDT 05/08/2020 05:20:00 AM [facility] PHOSPHORUS INORGANIC PHOSPHORUS LEVEL Routine 05/08/2020 5:20 AM E DT 05/08/2020 05:20:00 AM [facility] MAGNESIUM MAGNESIUM LEVEL Routine 05/08/2020 5:20 AM EDT 05/08/2020 05:20:00 AM [facility] HEMOGLOBIN GLYCOSYLATED A1C HEMOGLOBIN A1C Routine 05/08/2020 5:20 AM EDT 05/08/2020 05:20:00 AM [facility] HEPATIC FUNCTION PANEL HEPATIC FUNCTION PANEL A Routine 05/08/2020 5:20 AM EDT 05/08/2020 05:20:00 AM EDT [facility] COVID-19 PCR COVID-19 PCR Routine 05/07/2020 10:39 PM EDT 05/07/2020 10:39:00 PM [facility] GLUCOSE QUANTITATIVE BLOOD XCPT REAGENT STRIP POCT GLUCOSE, DOC KED Routine 05/07/2020 9:23 PM EDT 05/07/2020 09:23:00 PM [facility] CT ABDOEN & PELVIS W/CONTRAST MATERIAL CT ABDOMEN PELVIS WI TH CONTRAST [id number] Urgent 05/07/2020 9:11 PM EDT 05/07/2020 09:11:44 PM [facility] GLUCOSE QUANTITATIVE BLOOD XCPT REAGENT STRIP POCT GLUCOSE, DOC KED Routine 05/07/2020 5:04 PM EDT 05/07/2020 05:04:00 PM [facility] HEPATOBILIARY SYST IMAGING INCLUDING GALLBLADDER NM H EPATOBILIARY IMAGING HIDA [id number] Routine 05/07/2020 12:39 PM EDT 05/07/2020 12:39 :40 PM [facility] GLUCOSE QUANTITATIVE BLOOD XCPT REAGENT STRIP POCT GLUCOSE, IVANA TRIMBLE Routine 05/07/2020 12:08 PM EDT 05/07/2020 12:08:00 PM [facility] GLUCOSE QUANTITATIVE BLOOD XCPT REAGENT STRIP POCT GLUCOSE, IVANA TRIMBLE Routine 05/07/2020 8:17 AM EDT 05/07/2020 08:17:00 AM [facility] GLUCOSE QUANTITATIVE BLOOD XCPT REAGENT STRIP POCT GLUCOSE, IVANA TRIMBLE Routine 05/07/2020 8:16 AM EDT 05/07/2020 08:16:00 AM [facility] BASIC METABOLIC PANEL CALCIUM TOTAL BASIC METABOLIC PANEL Routi ne 05/07/2020 7:57 AM EDT 05/07/2020 07:57:00 AM EDT [facility] PROTHROMBIN TIME PROTIME INR Routine 05/07/2020 4:24 AM EDT 05/07/2020 04:24:00 AM [facility] BLOOD COUNT COMPLETE AUTOMATED CBC Routine 05/07/2020 4:24 A M EDT 05/07/2020 04:24:00 AM [facility] PHOSPHORUS INORGANIC PHOSPHORUS LEVEL Routine 05/07/2020 4:24 AM E DT 05/07/2020 04:24:00 AM [facility] MAGNESIUM MAGNESIUM LEVEL Routine 05/07/2020 4:24 AM EDT 05/07/2020 04:24:00 AM [facility] HEPATIC FUNCTION PANEL HEPATIC FUNCTION PANEL A Routine 05/07/2020 4:24 AM EDT 05/07/2020 04:24:00 AM EDT [facility] GLUCOSE QUANTITATIVE BLOOD XCPT REAGENT STRIP POCT GLUCOSEIVANA Routine 05/06/2020 9:30 PM EDT 05/06/2020 09:30:00 PM [facility] GLUCOSE QUANTITATIVE BLOOD XCPT REAGENT STRIP POCT GLUCOSEIVANA Routine 05/06/2020 5:09 PM EDT 05/06/2020 05:09:00 PM [facility] CT HEAD/BRAIN W/O CONTRAST MATERIAL CT HEAD WITHOUT CONTRAST 70 450 Routine 05/06/2020 4:52 PM EDT 05/06/2020 04:52:18 PM [facility] GLUCOSE QUANTITATIVE BLOOD XCPT REAGENT STRIP POCT GLUCOSEIVANA Routine 05/06/2020 3:50 PM EDT 05/06/2020 03:50:00 PM [facility] ULTRASOUND ABDOMINAL REAL TIME W/IMAGE LIMITED US ABDOMEN L IMITED [id number] Routine 05/06/2020 3:19 PM EDT 05/06/2020 03:19:05 PM [facility] BLOOD COUNT COMPLETE AUTOMATED CBC Routine 05/06/2020 12:47 P M EDT 05/06/2020 12:47:00 PM [facility] GLUCOSE QUANTITATIVE BLOOD XCPT REAGENT STRIP POCT GLUCOSE, IVANA TRIMBLE Routine 05/06/2020 12:29 PM EDT 05/06/2020 12:29:00 PM [facility] GLUCOSE QUANTITATIVE BLOOD XCPT REAGENT STRIP POCT GLUCOSE, IVANA TRIMBLE Routine 05/06/2020 8:29 AM EDT 05/06/2020 08:29:00 AM [facility] PROTHROMBIN TIME PROTIME INR Routine 05/06/2020 4:42 AM EDT 05/06/2020 04:42:00 AM [facility] PHOSPHORUS INORGANIC PHOSPHORUS LEVEL Routine 05/06/2020 4:42 AM E DT 05/06/2020 04:42:00 AM [facility] MAGNESIUM MAGNESIUM LEVEL Routine 05/06/2020 4:42 AM EDT 05/06/2020 04:42:00 AM [facility] HEPATIC FUNCTION PANEL HEPATIC FUNCTION PANEL A Routine 05/06/2020 4:42 AM EDT [facility]06[facility] CALCIUM TOTAL BASIC METABOLIC PANEL Routi ne 05/06/2020 4:42 AM EDT 05/06/2020 04:42:00 AM EDT [facility] GLUCOSE QUANTITATIVE BLOOD XCPT REAGENT STRIP POCT GLUCOSE, IVANA TRIMBLE Routine 05/06/2020 4:32 AM EDT 05/06/2020 04:32:00 AM [facility] GLUCOSE QUANTITATIVE BLOOD XCPT REAGENT STRIP POCT GLUCOSE, IVANA TRIMBLE Routine 05/05/2020 9:00 PM EDT 05/05/2020 09:00:00 PM [facility] GLUCOSE QUANTITATIVE BLOOD XCPT REAGENT STRIP POCT GLUCOSE, IVANA TRIMBLE Routine 05/05/2020 8:10 PM EDT 05/05/2020 08:10:00 PM [facility] GLUCOSE QUANTITATIVE BLOOD XCPT REAGENT STRIP POCT GLUCOSE, IVANA TRIMBLE Routine 05/05/2020 6:40 PM EDT 05/05/2020 06:40:00 PM [facility] COVID-19 PCR [facility] COVID-19 PCR STAT 05/05/2020 6:19 PM EDT 05/05/2020 06:19:00 PM [facility] GLUCOSE QUANTITATIVE BLOOD XCPT REAGENT STRIP POCT GLUCOSE, IVANA TRIMBLE Routine 05/05/2020 5:30 PM EDT 05/05/2020 05:30:00 PM [facility] GLUCOSE QUANTITATIVE BLOOD XCPT REAGENT STRIP POCT GLUCOSE, IVANA TRIMBLE Routine 05/05/2020 5:03 PM EDT 05/05/2020 05:03:00 PM [facility] GLUCOSE QUANTITATIVE BLOOD XCPT REAGENT STRIP POCT GLUCOSE, IVANA TRIMBLE Routine 05/05/2020 5:01 PM EDT 05/05/2020 05:01:00 PM [facility] GLUCOSE QUANTITATIVE BLOOD XCPT REAGENT STRIP POCT GLUCOSE, IVANA TRIMBLE Routine 05/05/2020 12:15 PM EDT 05/05/2020 12:15:00 PM [facility] PHOSPHORUS INORGANIC PHOSPHORUS LEVEL Routine 05/05/2020 8:51 AM E DT 05/05/2020 08:51:00 AM [facility] MAGNESIUM MAGNESIUM LEVEL Routine 05/05/2020 8:51 AM EDT 05/05/2020 08:51:00 AM [facility] COMPREHENSIVE METABOLIC PANEL COMPREHENSIVE METABOLIC PANEL Rou rodney 05/05/2020 8:51 AM EDT 05/05/2020 08:51:00 AM [facility] GLUCOSE QUANTITATIVE BLOOD XCPT REAGENT STRIP POCT GLUCOSE, IVANA TRIMBLE Routine 05/05/2020 8:35 AM EDT 05/05/2020 08:35:00 AM [facility] GLUCOSE QUANTITATIVE BLOOD XCPT REAGENT STRIP POCT GLUCOSE, IVANA TRIMBLE Routine 05/05/2020 6:16 AM EDT 05/05/2020 06:16:00 AM [facility] PROTHROMBIN TIME PROTIME INR Routine 05/05/2020 4:52 AM EDT 05/05/2020 04:52:00 AM [facility] GLUCOSE QUANTITATIVE BLOOD XCPT REAGENT STRIP POCT GLUCOSE, IVANA TRIMBLE Routine 05/04/2020 11:28 PM EDT 05/04/2020 11:28:00 PM [facility] GLUCOSE QUANTITATIVE BLOOD XCPT REAGENT STRIP POCT GLUCOSE, IVANA TRIMBLE Routine 05/04/2020 10:00 PM EDT 05/04/2020 10:00:00 PM [facility] GLUCOSE QUANTITATIVE BLOOD XCPT REAGENT STRIP POCT GLUCOSE, IVANA TRIMBLE Routine 05/04/2020 9:23 PM EDT 05/04/2020 09:23:00 PM [facility] GLUCOSE QUANTITATIVE BLOOD XCPT REAGENT STRIP POCT GLUCOSE, IVANA TRIMBLE Routine 05/04/2020 9:09 PM EDT 05/04/2020 09:09:00 PM [facility] GLUCOSE QUANTITATIVE BLOOD XCPT REAGENT STRIP POCT GLUCOSE, IVANA TRIMBLE Routine 05/04/2020 8:59 PM EDT 05/04/2020 08:59:00 PM [facility] GLUCOSE QUANTITATIVE BLOOD XCPT REAGENT STRIP POCT GLUCOSE, IVANA TRIMBLE Routine 05/04/2020 4:49 PM EDT 05/04/2020 04:49:00 PM [facility] GLUCOSE QUANTITATIVE BLOOD XCPT REAGENT STRIP POCT GLUCOSE, IVANA TRIMBLE Routine 05/04/2020 12:27 PM EDT 05/04/2020 12:27:00 PM [facility] GLUCOSE QUANTITATIVE BLOOD XCPT REAGENT STRIP POCT GLUCOSE, IVANA TRIMBLE Routine 05/04/2020 8:01 AM EDT 05/04/2020 08:01:00 AM [facility] GLUCOSE QUANTITATIVE BLOOD XCPT REAGENT STRIP POCT GLUCOSE, IVANA TRIMBLE Routine 05/04/2020 7:59 AM EDT 05/04/2020 07:59:00 AM [facility] PROTHROMBIN TIME PROTIME INR Routine 05/04/2020 6:14 AM EDT 05/04/2020 06:14:00 AM [facility] BILIRUBIN DIRECT BILIRUBIN, DIRECT Routine 05/04/2020 6:14 AM EDT 05/04/2020 06:14:00 AM [facility] COMPREHENSIVE METABOLIC PANEL COMPREHENSIVE METABOLIC PANEL Rou rodney 05/04/2020 6:14 AM EDT 05/04/2020 06:14:00 AM EDT [facility] GLUCOSE QUANTITATIVE BLOOD XCPT REAGENT STRIP POCT GLUCOSE, IVANA TRIMBLE Routine 05/03/2020 9:01 PM EDT 05/03/2020 09:01:00 PM [facility] GLUCOSE QUANTITATIVE BLOOD XCPT REAGENT STRIP POCT GLUCOSE, IVANA TRIMBLE Routine 05/03/2020 4:53 PM EDT 05/03/2020 04:53:00 PM [facility] US RETROPERITONEAL REAL TIME W/IMAGE COMPLETE US RENAL OR A JOSI COMPLETE [id number] Routine 05/03/2020 2:24 PM EDT 05/03/2020 02:24:32 PM [facility] GLUCOSE QUANTITATIVE BLOOD XCPT REAGENT STRIP POCT GLUCOSE, DOC NAI Routine 05/03/2020 12:22 PM EDT 05/03/2020 12:22:00 PM [facility] GLUCOSE QUANTITATIVE BLOOD XCPT REAGENT STRIP POCT GLUCOSE, DOC NAI Routine 05/03/2020 10:20 AM EDT 05/03/2020 10:20:00 AM [facility] GLUCOSE QUANTITATIVE BLOOD XCPT REAGENT STRIP POCT GLUCOSE, DOC NIA Routine 05/03/2020 8:51 AM EDT 05/03/2020 08:51:00 AM [facility] GLUCOSE QUANTITATIVE BLOOD XCPT REAGENT STRIP POCT GLUCOSE, DOC NAI Routine 05/03/2020 8:22 AM EDT 05/03/2020 08:22:00 AM [facility] PROTHROMBIN TIME PROTIME INR Routine 05/03/2020 3:53 AM EDT 05/03/2020 03:53:00 AM [facility] PHOSPHORUS INORGANIC PHOSPHORUS LEVEL Routine 05/03/2020 3:53 AM E DT 05/03/2020 03:53:00 AM [facility] BILIRUBIN DIRECT BILIRUBIN, DIRECT Routine 05/03/2020 3:53 AM EDT 05/03/2020 03:53:00 AM [facility] COMPREHENSIVE METABOLIC PANEL COMPREHENSIVE METABOLIC PANEL Rou rodney 05/03/2020 3:53 AM EDT 05/03/2020 03:53:00 AM EDT [facility] GLUCOSE QUANTITATIVE BLOOD XCPT REAGENT STRIP POCT GLUCOSE, DOC NAI Routine 05/02/2020 4:59 PM EDT 05/02/2020 04:59:00 PM [facility] URNLS DIP STICK/TABLET REAGENT AUTO MICROSCOPY URINAL YSIS WITH REFLEX URINE CULTURE Routine 05/02/2020 2:30 PM EDT 05/02/2020 02:30 :00 PM [facility] GLUCOSE QUANTITATIVE BLOOD XCPT REAGENT STRIP POCT GLUCOSE, DOC NAI Routine 05/02/2020 12:28 PM EDT 05/02/2020 12:28:00 PM [facility] GLUCOSE QUANTITATIVE BLOOD XCPT REAGENT STRIP POCT GLUCOSE, DOC KED Routine 05/02/2020 8:23 AM EDT 05/02/2020 08:23:00 AM [facility] PROTHROMBIN TIME PROTIME INR Routine 05/02/2020 3:30 AM EDT 05/02/2020 03:30:00 AM [facility] PHOSPHORUS INORGANIC PHOSPHORUS LEVEL Routine 05/02/2020 3:30 AM E DT 05/02/2020 03:30:00 AM [facility] MAGNESIUM MAGNESIUM LEVEL Routine 05/02/2020 3:30 AM EDT 05/02/2020 03:30:00 AM [facility] BILIRUBIN DIRECT BILIRUBIN, DIRECT Routine 05/02/2020 3:30 AM EDT 05/02/2020 03:30:00 AM [facility] COMPREHENSIVE METABOLIC PANEL COMPREHENSIVE METABOLIC PANEL Rou rodney 05/02/2020 3:30 AM EDT 05/02/2020 03:30:00 AM EDT [facility] GLUCOSE QUANTITATIVE BLOOD XCPT REAGENT STRIP POCT GLUCOSE, IVANA TRIMBLE Routine 05/01/2020 9:15 PM EDT 05/01/2020 09:15:00 PM [facility] GLUCOSE QUANTITATIVE BLOOD XCPT REAGENT STRIP POCT GLUCOSE, DOC KED Routine 05/01/2020 5:18 PM EDT 05/01/2020 05:18:00 PM [facility] GLUCOSE QUANTITATIVE BLOOD XCPT REAGENT STRIP POCT GLUCOSE, DOC KED Routine 05/01/2020 12:16 PM EDT 05/01/2020 12:16:00 PM [facility] COMPREHENSIVE METABOLIC PANEL COMPREHENSIVE METABOLIC PANEL Rou rodney 05/01/2020 9:54 AM EDT 05/01/2020 09:54:00 AM EDT [facility] GLUCOSE QUANTITATIVE BLOOD XCPT REAGENT STRIP POCT GLUCOSE, DOC KED Routine 05/01/2020 8:20 AM EDT 05/01/2020 08:20:00 AM [facility] PROTHROMBIN TIME PROTIME INR Routine 05/01/2020 5:09 AM EDT 05/01/2020 05:09:00 AM [facility] PHOSPHORUS INORGANIC PHOSPHORUS LEVEL Routine 05/01/2020 5:09 AM E DT 05/01/2020 05:09:00 AM [facility] MAGNESIUM MAGNESIUM LEVEL Routine 05/01/2020 5:09 AM EDT 05/01/2020 05:09:00 AM [facility] GLUCOSE QUANTITATIVE BLOOD XCPT REAGENT STRIP POCT GLUCOSE, DOC TOD Routine 04/30/2020 9:03 PM EDT 04/30/2020 09:03:00 PM [facility] GLUCOSE QUANTITATIVE BLOOD XCPT REAGENT STRIP POCT GLUCOSE, IVANA ARIZAD Routine 04/30/2020 4:58 PM EDT 04/30/2020 04:58:00 PM [facility] MAGNESIUM MAGNESIUM LEVEL Routine 04/30/2020 3:45 PM EDT 04/30/2020 03:45:00 PM [facility] CALCIUM IONIZED CALCIUM, IONIZED Routine 04/30/2020 3:45 PM EDT 04/30/2020 03:45:00 PM [facility] GLUCOSE QUANTITATIVE BLOOD XCPT REAGENT STRIP POCT GLUCOSE, DOC TOD Routine 04/30/2020 12:25 PM EDT 04/30/2020 12:25:00 PM [facility] GLUCOSE QUANTITATIVE BLOOD XCPT REAGENT STRIP POCT GLUCOSE, IVANA ARIZAD Routine 04/30/2020 12:14 PM EDT 04/30/2020 12:14:00 PM [facility] GLUCOSE QUANTITATIVE BLOOD XCPT REAGENT STRIP POCT GLUCOSE, IVANA TRIMBLE Routine 04/30/2020 8:24 AM EDT 04/30/2020 08:24:00 AM [facility] PROTHROMBIN TIME PROTIME INR Routine 04/30/2020 5:59 AM EDT 04/30/2020 05:59:00 AM [facility] PHOSPHORUS INORGANIC PHOSPHORUS LEVEL Routine 04/30/2020 5:59 AM E DT 04/30/2020 05:59:00 AM [facility] MAGNESIUM MAGNESIUM LEVEL Timed 04/30/2020 5:59 AM EDT 04/30/2020 05:59:00 AM [facility] HEPATIC FUNCTION PANEL HEPATIC FUNCTION PANEL A Routine 04/30/2020 5:59 AM EDT 04/30/2020 05:59:00 AM EDT [facility] BASIC METABOLIC PANEL CALCIUM TOTAL BASIC METABOLIC PANEL Timed 04/30/2020 5:59 AM EDT 04/30/2020 05:59:00 AM EDT [facility] MAGNESIUM MAGNESIUM LEVEL Timed 04/29/2020 5:46 PM EDT 04/29/2020 05:46:00 PM [facility] BASIC METABOLIC PANEL CALCIUM TOTAL BASIC METABOLIC PANEL Timed 04/29/2020 5:46 PM EDT 04/29/2020 05:46:00 PM EDT [facility] GLUCOSE QUANTITATIVE BLOOD XCPT REAGENT STRIP POCT GLUCOSE, IVANA TRIMBLE Routine 04/29/2020 4:53 PM EDT 04/29/2020 04:53:00 PM [facility] GLUCOSE QUANTITATIVE BLOOD XCPT REAGENT STRIP POCT GLUCOSE, IVANA TRIMBLE Routine 04/29/2020 12:09 PM EDT 04/29/2020 12:09:00 PM [facility] GLUCOSE QUANTITATIVE BLOOD XCPT REAGENT STRIP POCT GLUCOSE, IVANA TRIMBLE Routine 04/29/2020 8:22 AM EDT 04/29/2020 08:22:00 AM [facility] BLOOD COUNT COMPLETE AUTOMATED CBC AND DIFFERENTIAL Routine 04/29/2020 6:20 AM EDT 04/29[facility]2020 [facility] COMPREHENSIVE METABOLIC PANEL Rou rodney 04/29/2020 6:20 AM EDT 04/29/2020 06:20:00 AM [facility] PROTHROMBIN TIME PROTIME INR Routine 04/29/2020 4:27 AM EDT 04/29/2020 04:27:00 AM [facility] MAGNESIUM MAGNESIUM LEVEL Timed 04/28/2020 10:33 PM EDT 04/28/2020 10:33:00 PM [facility] BASIC METABOLIC PANEL CALCIUM TOTAL BASIC METABOLIC PANEL Timed 04/28/2020 10:33 PM EDT 04/28/2020 10:33:00 PM EDT [facility] GLUCOSE QUANTITATIVE BLOOD XCPT REAGENT STRIP POCT GLUCOSE, IVANA TRIMBLE Routine 04/28/2020 8:52 PM EDT 04/28/2020 08:52:00 PM [facility] GLUCOSE QUANTITATIVE BLOOD XCPT REAGENT STRIP POCT GLUCOSE, IVANA TRIMBLE Routine 04/28/2020 5:16 PM EDT 04/28/2020 05:16:00 PM [facility] ULTRASOUND ABDOMINAL REAL TIME W/IMAGE LIMITED US ABDOMEN LIMIT ED [id number] Urgent 04/28/2020 1:19 PM EDT 04/28/2020 01:19:02 PM [facility] GLUCOSE QUANTITATIVE BLOOD XCPT REAGENT STRIP POCT GLUCOSE, IVANA TRIMBLE Routine 04/28/2020 12:35 PM EDT 04/28/2020 12:35:00 PM [facility] GLUCOSE QUANTITATIVE BLOOD XCPT REAGENT STRIP POCT GLUCOSE, IVANA TRIMBLE Routine 04/28/2020 8:30 AM EDT 04/28/2020 08:30:00 AM [facility] BLOOD COUNT COMPLETE AUTOMATED CBC AND DIFFERENTIAL Timed 04/28/2020 8:13 AM EDT 04/28/2020 08:13:00 AM EDT [facility] MAGNESIUM MAGNESIUM LEVEL Timed 04/28/2020 8:13 AM EDT 04/28/2020 08:13:00 AM [facility] HEPATIC FUNCTION PANEL HEPATIC FUNCTION PANEL A Timed 04/28 8:13 AM EDT 04/28/2020 08:13:00 AM EDT [facility] BASIC METABOLIC PANEL CALCIUM TOTAL BASIC METABOLIC PANEL Timed 04/28/2020 8:13 AM EDT 04/28/2020 08:13:00 AM EDT [facility] GLUCOSE QUANTITATIVE BLOOD XCPT REAGENT STRIP POCT GLUCOSE, IVANA TRIMBLE Routine 04/28/2020 7:41 AM EDT 04/28/2020 07:41:00 AM [facility] PROTHROMBIN TIME PROTIME INR Routine 04/28/2020 5:07 AM EDT 04/28/2020 05:07:00 AM [facility] GLUCOSE QUANTITATIVE BLOOD XCPT REAGENT STRIP POCT GLUCOSE, DOC KED Routine 04/27/2020 9:09 PM EDT 04/27/2020 09:09:00 PM [facility] BLOOD COUNT COMPLETE AUTOMATED CBC AND DIFFERENTIAL Timed 04/27/2020 5:47 PM EDT 04/27/2020 05:47:00 PM EDT [facility] THYROID STIMULATING HORMONE TSH TSH Routine 04/27/2020 5:47 PM EDT 04/27/2020 05:47:00 PM [facility] MAGNESIUM MAGNESIUM LEVEL Timed 04/27/2020 5:47 PM EDT 04/27/2020 05:47:00 PM [facility] AMMONIA AMMONIA LEVEL Routine 04/27/2020 5:47 PM EDT 04/27/2020 05:47:00 PM [facility] HEPATIC FUNCTION PANEL HEPATIC FUNCTION PANEL A Timed 04/27 5:47 PM EDT 04/27/2020 05:47:00 PM EDT [facility] BASIC METABOLIC PANEL CALCIUM TOTAL BASIC METABOLIC PANEL Timed 04/27/2020 5:47 PM EDT 04/27/2020 05:47:00 PM EDT [facility] GLUCOSE QUANTITATIVE BLOOD XCPT REAGENT STRIP POCT GLUCOSE, IVANA TRIMBLE Routine 04/27/2020 4:51 PM EDT 04/27/2020 04:51:00 PM [facility] PICC ULTRASOUND - BEDSIDE PROCEDURE PICC ULTRASOUND - BEDSI DE PROCEDURE Routine 04/27/2020 2:07 PM EDT 04/27/2020 02:07:00 PM [facility] GLUCOSE QUANTITATIVE BLOOD XCPT REAGENT STRIP POCT GLUCOSEIVANA Routine 04/27/2020 12:14 PM EDT 04/27/2020 12:14:00 PM [facility] BLOOD COUNT COMPLETE AUTO&AUTO DIFRNTL WBC COUNT CBC AND DIFFER ENTIAL Timed 04/27/2020 8:26 AM EDT 04/27/2020 08:26:00 AM [facility] MAGNESIUM MAGNESIUM LEVEL Timed 04/27/2020 8:26 AM EDT 04/27/2020 08:26:00 AM [facility] HEPATIC FUNCTION PANEL HEPATIC FUNCTION PANEL A Timed 04/27 8:26 AM EDT 04/27/2020 [facility] CALCIUM TOTAL BASIC METABOLIC PANEL Timed 04/27/2020 8:26 AM EDT 04/27/2020 08:26:00 AM EDT [facility] GLUCOSE QUANTITATIVE BLOOD XCPT REAGENT STRIP POCT GLUCOSEIVANA Routine 04/27/2020 8:15 AM EDT 04/27/2020 08:15:00 AM [facility] PROTHROMBIN TIME PROTIME INR Routine 04/27/2020 3:46 AM EDT 04/27/2020 03:46:00 AM [facility] GLUCOSE QUANTITATIVE BLOOD XCPT REAGENT STRIP POCT GLUCOSEIVANA Routine 04/26/2020 9:49 PM EDT 04/26/2020 09:49:00 PM [facility] LACTATE LACTIC ACID LEVEL, PLASMA Routine 04/26/2020 8:18 PM EDT 04/26/2020 08:18:00 PM [facility] GLUCOSE QUANTITATIVE BLOOD XCPT REAGENT STRIP POCT GLUCOSEIVANA Routine 04/26/2020 4:54 PM EDT 04/26/2020 04:54:00 PM [facility] BLOOD COUNT COMPLETE AUTOMATED CBC AND DIFFERENTIAL Timed 04/26/2020 3:52 PM EDT 04/26/2020 03:52:00 PM EDT [facility] MAGNESIUM MAGNESIUM LEVEL Timed 04/26/2020 3:52 PM EDT 04/26/2020 03:52:00 PM [facility] LACTATE LACTIC ACID LEVEL, PLASMA Routine 04/26/2020 3:52 PM EDT 04/26/2020 03:52:00 PM [facility] HEPATIC FUNCTION PANEL HEPATIC FUNCTION PANEL A Timed 04/26 3:52 PM EDT 04/26/2020 03:52:00 PM EDT [facility] BASIC METABOLIC PANEL CALCIUM TOTAL BASIC METABOLIC PANEL Timed 04/26/2020 3:52 PM EDT 04/26/2020 03:52:00 PM EDT [facility] GLUCOSE QUANTITATIVE BLOOD XCPT REAGENT STRIP POCT GLUCOSE, DOC KED Routine 04/26/2020 12:24 PM EDT 04/26/2020 12:24:00 PM [facility] PROTHROMBIN TIME PROTIME INR Routine 04/26/2020 10:45 AM EDT 04/26/2020 10:45:00 AM [facility] LACTATE LACTIC ACID LEVEL, PLASMA Routine 04/26/2020 10:45 AM EDT 04/26/2020 10:45:00 AM [facility] AMMONIA AMMONIA LEVEL Routine 04/26/2020 10:45 AM EDT 04/26/2020 10:45:00 AM [facility] URNLS DIP STICK/TABLET REAGENT AUTO MICROSCOPY URINALYSIS W ITH MICROSCOPIC Routine 04/26/2020 9:16 AM EDT 04/26/2020 09:16:00 AM [facility] SODIUM URINE SODIUM, URINE, RANDOM Routine 04/26/2020 9:12 AM EDT 04/26/2020 09:12:00 AM [facility] POTASSIUM URINE POTASSIUM, URINE, RANDOM Routine 04/26/2020 9:12 A M EDT 04/26/2020 09:12:00 AM [facility] OSMOLALITY URINE OSMOLALITY, URINE Routine 04/26/2020 9:12 AM EDT 04/26/2020 09:12:00 AM [facility] GLUCOSE QUANTITATIVE BLOOD XCPT REAGENT STRIP POCT GLUCOSE, DOC KED Routine 04/26/2020 8:34 AM EDT 04/26/2020 08:34:00 AM [facility] BASIC METABOLIC PANEL CALCIUM TOTAL BASIC METABOLIC PANEL Timed 04/26/2020 7:46 AM EDT 04/26/2020 07:46:00 AM EDT [facility] BLOOD COUNT COMPLETE AUTO&AUTO DIFRNTL WBC COUNT CBC AND DIFFER ENTIAL Timed 04/26/2020 7:46 AM EDT 04/26/2020 07:46:00 AM [facility] MAGNESIUM MAGNESIUM LEVEL Timed 04/26/2020 7:46 AM EDT 04/26/2020 07:46:00 AM [facility] HEPATIC FUNCTION PANEL HEPATIC FUNCTION PANEL A Timed 04/26 7:46 AM EDT 04/26/2020 07:46:00 AM EDT [facility] GLUCOSE QUANTITATIVE BLOOD XCPT REAGENT STRIP POCT GLUCOSE, DOC KED Routine 04/25/2020 8:47 PM EDT 04/25/2020 08:47:00 PM [facility] BLOOD COUNT COMPLETE AUTO&AUTO DIFRNTL WBC COUNT CBC AND DIFFER ENTIAL Timed 04/25/2020 5:43 PM EDT 04/25/2020 05:43:00 PM [facility] MAGNESIUM MAGNESIUM LEVEL Timed 04/25/2020 5:29 PM EDT 04/25/2020 05:29:00 PM [facility] LACTATE LACTIC ACID LEVEL, PLASMA Routine 04/25/2020 5:29 PM EDT 04/25/2020 05:29:00 PM [facility] HEPATIC FUNCTION PANEL HEPATIC FUNCTION PANEL A Timed 04/25 5:29 PM EDT 04/25/2020 05:29:00 PM EDT [facility] BASIC METABOLIC PANEL CALCIUM TOTAL BASIC METABOLIC PANEL Timed 04/25/2020 5:29 PM EDT 04/25/2020 05:29:00 PM EDT [facility] GLUCOSE QUANTITATIVE BLOOD XCPT REAGENT STRIP POCT GLUCOSE, DOC KED Routine 04/25/2020 5:08 PM EDT 04/25/2020 05:08:00 PM [facility] GLUCOSE QUANTITATIVE BLOOD XCPT REAGENT STRIP POCT GLUCOSE, DOC KED Routine 04/25/2020 12:05 PM EDT 04/25/2020 12:05:00 PM [facility] EKG 12-LEAD - CMAXX REPORT EKG 12-LEAD - CMAXX REPORT 04/25/2020 10:33 AM EDT 04/25/2020 10:33:52 AM EDT [facility] EKG 12-LEAD - CMAXX REPORT EKG 12-LEAD - CMAXX REPORT 04/25/2020 10:33 AM EDT 04/25/2020 10:33:52 AM EDT [facility] EKG 12-LEAD - CMAXX REPORT EKG 12-LEAD - CMAXX REPORT 04/25/2020 10:30 AM EDT 04/25/2020 10:30:40 AM EDT [facility] EKG 12-LEAD EKG 12-LEAD STAT 04/25/2020 10:30 AM EDT [facility]/25[facility]2020 [facility]OD AEROBIC W/ID ISOLATES BLOOD CULTURE S TAT 04/25/2020 9:59 AM EDT 04/25/2020 09:59:00 AM EDT [facility] GLUTAMYLTRASE GAMMA GAMMA GT Routine 04/25/2020 9:59 AM EDT 04/25/2020 09:59:00 AM [facility] GLUCOSE QUANTITATIVE BLOOD XCPT REAGENT STRIP POCT GLUCOSE, DOC KED Routine 04/25/2020 8:11 AM EDT 04/25/2020 08:11:00 AM [facility] THROMBOPLASTIN TIME PARTIAL PLASMA/WHOLE BLOOD PARTIA L THROMBOPLASTIN TIME (PTT) Routine 04/25/2020 6:06 AM EDT 04/25/2020 06:06 :00 AM [facility] ACUTE HEPATITIS PANEL HEPATITIS PANEL, ACUTE Routine 04/25/2020 6:06 AM EDT 04/25/2020 06:06:00 AM [facility] FIBRINOGEN ACTIVITY FIBRINOGEN LEVEL Routine 04/25/2020 6:06 AM ED T 04/25/2020 06:06:00 AM [facility] FIBRIN DGRADJ PRODUCTS D-DIMER QUAL/SEMIQUAN D-DIMER, QUANTITAT LESLIE Routine 04/25/2020 6:06 AM EDT 04/25/2020 06:06:00 AM [facility] CT ABDOEN & PELVIS W/CONTRAST MATERIAL CT ABDOMEN PELVIS WI TH CONTRAST [id number] STAT 04/25/2020 5:54 AM EDT 04/25/2020 05:54:51 AM [facility] XR CHEST FRONTAL ONLY [id number] XR CHEST FRONTAL ONLY [id number] Routine 04/25/2020 5:48 AM EDT 04/25/2020 05:48:59 AM EDT [facility] COVID-19 PCR COVID-19 PCR Routine 04/25/2020 3:59 AM EDT 04/25/2020 03:59:00 AM [facility] URNLS DIP STICK/TABLET REAGENT AUTO MICROSCOPY URINAL YSIS WITH REFLEX URINE CULTURE Routine 04/25/2020 3:59 AM EDT 04/25/2020 03:59 :00 AM [facility] IRON TOTAL FE BINDING CAPACITY Routine 04/25/2020 3:59 AM EDT 04/25/2020 03:59:00 AM [facility] CULTURE BACTERIAL BLOOD AEROBIC W/ID ISOLATES BLOOD CULTURE S TAT 04/25/2020 3:59 AM EDT 04/25/2020 03:59:00 AM EDT [facility] CULTURE BACTERIAL BLOOD AEROBIC W/ID ISOLATES BLOOD CULTURE S TAT 04/25/2020 3:59 AM EDT 04/25/2020 03:59:00 AM EDT [facility] PROTHROMBIN TIME PROTIME INR Routine 04/25/2020 3:59 AM EDT 04/25/2020 03:59:00 AM [facility] BLOOD COUNT COMPLETE AUTOMATED CBC AND DIFFERENTIAL Routine 04/25/2020 3:59 AM EDT 04/25/2020 03:59:00 AM EDT [facility] TROPONIN QUANTITATIVE TROPONIN T Routine 04/25/2020 3:59 AM EDT 04/25/2020 03:59:00 AM [facility] PHOSPHORUS INORGANIC PHOSPHORUS LEVEL Routine 04/25/2020 3:59 AM E DT 04/25/2020 03:59:00 AM [facility] MAGNESIUM MAGNESIUM LEVEL Routine 04/25/2020 3:59 AM EDT 04/25/2020 03:59:00 AM [facility] LIPASE LIPASE LEVEL Routine 04/25/2020 3:59 AM EDT 04/25/2020 03:59:00 AM [facility] LACTATE LACTIC ACID LEVEL, PLASMA Routine 04/25/2020 3:59 AM EDT 04/25/2020 03:59:00 AM [facility] FOLIC ACID SERUM FOLATE Routine 04/25/2020 3:59 AM EDT 04/25/2020 03:59:00 AM [facility] FERRITIN FERRITIN LEVEL Routine 04/25/2020 3:59 AM EDT 04/25/2020 03:59:00 AM [facility] CYANOCOBALAMIN VITAMIN B-12 VITAMIN B12 Routine 04/25/2020 3:59 AM EDT 04/25/2020 03:59:00 AM EDT [facility] COMPREHENSIVE METABOLIC PANEL COMPREHENSIVE METABOLIC PANEL Rou rodney 04/25/2020 3:59 AM EDT 04/25/2020 03:59:00 AM EDT [facility] Virtual Brief Check In by an MD/QHP 11/11/2019 12:00:0 0 AM EDT [email or web address] URINE-NO MICRO 10/14/2019 12:00:00 AM EST [facility] Results ID Date Data Source [id number] 07/20/2020 02:30:00 PM EST [facility] ([facility], ) Name Value Range Interpretation Code Description Data Beronica rce(s) Supporting Document(s) Alt/SGPT 13 U/L 12-78 Normal (applies to non-numeric resul ts) [facility] ([facility], ) Ast/Sgot 29 U/L 7-37 Normal (applies to non-numeric resul ts) [facility] ([facility], ) Bilirubin,Direct 1.7 mg/dL 0.0-0.2 Above high normal M EDENT ([facility]) Bilirubin,Total 3.3 mg/dL 0.2-1.0 Above high normal [facility] ([facility]) Alkaline Phosphatase 101 U/L 45-117 Normal (applies to non-num lev results) [facility] Total Protein 6.8 GM/DL 6.4-8.2 Normal (applies to non-numeric re sults) [facility] Albumin/Globulin Ratio 0.7 Normal (applies to non-n umeric results) [facility] ([facility]) Albumin 2.9 GM/DL 3.2-5.2 Below low normal [facility] ID Date Data Source [id number] 07/08/2020 03:02:09 PM EST [facility] Name Value Range Interpretation Code Description Data Beronica rce(s) Supporting Document(s) Progress Note [facility] OQNKJf7xLtXWHiOc12/CKJnlKSCxv4JyPYklZXb7NCqtPXIgX4AvONU5cF2aCMW2HAaCDrGbXpNwLXG8 lbm [file] mB2XIaTq1bELHUfa3esf25lUAdhFQDDGlHqUlDz9yMQGQCxDtcaENy1Ecb0mzl9FnTp8/Juan Miguel/crBS6kp [file] 5qH42T6qJarYeGLM0E57EelkoX17Q4Dz14Aaj7rlPTND5wTqK/evp sales/6az04/f82y4FpwIm0MlcQjrjrYr HHBQrWFASzi0c5tPRfB304izR2Y1pt4wsRdFGgh8l2s2SwvpYAitK6AZD0c/XvgeZKkSGAsT7ceGyrzX bHsZlpsq7PXG+4TaWbEhIbrADcq22I6g+V+ZACJ5lv YrA7y1fwtwzm/314dP/i0XJc8jNCD2TF+CZquM/BFQTVTqBflLaLD6cHxncCIOiGezkg35c6S723RuzF msZY+vomJ7aB/NOVorRXG8xZAwV9XKtGjC6e4iw4rGk9iJO3iWw7rVyVyPTZ+tCbSWuW6LhCZU2l2iIc oNZ1tO4F1f8Y7MyijfsDYVG845bUByhicGh3oZNZgc efezWH0IeRRCUoDEnHP2HNhuBm1rFkcKrn1veBBhE34AtrTwm2GogN4MtDx695v3K+oZ1248zWlbZ3rJ +4sSLna9CZeLS9GspwGqJoXDhJwwjjVeKozNb+ltoIwg59tCGSdoEKCE9EJGXQvgzIIlBnMKV3tV32Co bZQ/s6yoH8sCDz4MyRU775xQD4Q+vv9y7Ehgep/2xe hq6TCb7U5vozpZIniteCxEzyx+hkq57EjA1L7tmzJisskAtletER7K4d8G0D6IP3n/Ray/udz9zIhdiu [facility]+lR3v+K6A3GmDig/vAFbDdPJYMMb7ZERMKiK4vy1Ir6/G9o3tnnTrqnLMXK5VGtgiRMGcvqTO [file] C/w4Hu1EYC/ZwoPK6CxSkdTnshct5Ez9+Luis Miguel/Nei3 [file] [id number]= ID Date Data Source [facility] 06/18/2020 11:15:08 AM EDT eCW1 ([facility]) Name Value Range Interpretation Code Description Data Beronica rce(s) Supporting Document(s) [facility] LIVER US eCW1 ([facility]) ID Date Data Source [id number] 06/16/2020 12:04:00 PM EDT MEDENT ([facility]) Name Value Range Interpretation Code Description Data Beronica rce(s) Supporting Document(s) Ast/Sgot 53 U/L 7-37 Above high normal [facility] ([facility]) Bilirubin,Total 2.7 mg/dL 0.2-1.0 Above high normal ME DENT ([facility]) Alkaline Phosphatase 103 U/L 45-117 Normal (applies to non-num lev results) [facility] ([facility]) Alt/SGPT 34 U/L 12-78 Normal (applies to non-numeric resul ts) [facility] Total Protein 7.3 GM/DL 6.4-8.2 Normal (applies to non-numeric re sults) [facility] Albumin 2.5 GM/DL 3.2-5.2 Below low normal [facility] ( [facility]) Bilirubin,Direct 2.1 mg/dL 0.0-0.2 Above high normal M EDENT ([facility]) Albumin/Globulin Ratio 0.5 Normal (applies to non-n umeric results) [facility] ([facility]) ID Date Data Source [id number] 05/27/2020 01:05:00 PM EDT [facility] ([facility]) Name Value Range Interpretation Code Description Data Beronica rce(s) Supporting Document(s) Cobalamin (Vitamin B12) [Mass/volume] in Serum or Plasma 1680 pg /mL 247-911 Above high normal [facility] ([facility], ) VITAMIN B12 NORMAL RANGE NORMAL 247 - 911 PG/ML INDETERMINATE 211 - 246 PG/ML DEFICIENT LESS THAN 211 PG/ML ID Date Data Source [id number] 05/27/2020 01:05:00 PM EDT [facility] ([facility]) Name Value Range Interpretation Code Description Data Beronica rce(s) Supporting Document(s) Blood Urea Nitrogen 4 mg/dL 7-18 Below low normal [facility] ([facility]) Creatinine For GFR 0.75 mg/dL 0.70-1.30 Normal (applies to non -numeric results) [facility] ([facility]) Glucose, Fasting 78 mg/dL 70-100 Normal (applies to non-numeric results) [facility] ([facility]) Glomerular Filtration Rate Laboratory test result Normal (applies to non- numeric results) [facility] ([facility]) <content>Units are mL/min/1.73 m2</content>
<content></content>
<content>Chronic Kidney Disease Staging per NKF:</content>
<content></content>
<content>Stage I & II GFR >=60 Normal to Mildly Decreased</content>
<content>Stage III GFR 30- 59 Moderately Decreased</content>
<content>Stage IV GFR 15-29 Severely Decreased</content>
<content>Stage V GFR <15 Very Little GFR Left</content>
<content>ESRD GFR <15 on [employer]</content>
<content></content> Sodium Level 140 meq/L 136-145 Normal (applies to non-numeric res ults) [facility] Potassium Serum 3.6 meq/L 3.5-5.1 Normal (applies to non-numeric results) [facility] ([facility]) Carbon Dioxide Level 25 meq/L 21-32 Normal (applies to non-num lev results) [facility] ([facility]) Anion Gap 7 meq/L 8-16 Below low normal [facility] ( [facility]) Chloride Level 108 meq/L 98-107 Above high normal [facility] ([facility]) Ast/Sgot 93 U/L 7-37 Above high normal [facility] Calcium Level 8.5 mg/dL 8.5-10.1 Normal (applies to non-numeric re sults) [facility] ([facility]) Alt/SGPT 43 U/L 12-78 Normal (applies to non-numeric resul ts) [facility] ([facility]) Bilirubin,Total 3.9 mg/dL 0.2-1.0 Above high normal [facility] ([facility]) Alkaline Phosphatase 131 U/L 45-117 Above high normal [facility]) Total Protein 7.1 GM/DL 6.4-8.2 Normal (applies to non-numeric re sults) [facility] Albumin/Globulin Ratio 0.4 Normal (applies to non-n umeric results) [facility] Albumin 2.1 GM/DL 3.2-5.2 Below low normal [facility] ( [facility]) ID Date Data Source [id number] 05/27/2020 01:05:00 PM EDT [facility] ([facility]) Name Value Range Interpretation Code Description Data Beronica rce(s) Supporting Document(s) aPTT in Platelet poor plasma by Coagulation assay 54.2 s 24.2-38.5 Above high normal [facility] ([facility]) ID Date Data Source [id number] 05/27/2020 01:05:00 PM EDT [facility] Name Value Range Interpretation Code Description Data Beronica rce(s) Supporting Document(s) Prothrombin Time 19.8 s 12.5-14.3 Above high normal [facility] Inr 1.65 Normal (applies to non-numeric resul ts) [facility] ([facility]) THERAPUTIC HUMAN INR VALUES INDICATIONS NORMAL RANGES PROPHYLAXIS/TREATMENT OF: VENOUS THROMBOSIS 2.0-3.0 PULMONARY EMBOLISM 2.0-3.0 PREVENTION OF SYSTEMIC EMBOLISM FROM: TISSUE HEART VALVES 2.0-3.0 ACUTE MYOCARDIAL INFARCTION 2.0-3.0 VALVULAR HEART DISEASE 2.0-3.0 ATRIAL FIBRILLATION 2.0-3.0 MECHANICAL VALVES(HIGH RISK) 2.5-3.5 RECURRENT MYOCARDIAL INFARCTION 2.5-3.5 ID Date Data Source [id number] 05/27/2020 01:05:00 PM EDT [facility] ([facility]) Name Value Range Interpretation Code Description Data Beronica rce(s) Supporting Document(s) White Blood Count 3.8 10 4.0-10.0 Below low normal [facility] ([facility], ) Red Blood Count 3.51 10 4.30-6.10 Below low normal [facility] ([facility]) Hemoglobin 12.1 g/dL 13.5-17.5 Below low normal [facility] ( [facility]) Hematocrit 35.7 % 42.0-52.0 Below low normal [facility] ( [facility]) Mean Corpuscular Volume 101.7 fl 80.0-96.0 Above high normal [facility] ([facility]) Mean Corpuscular Hemoglobin 34.5 pg 27.0-33.0 Above high normal [facility] ([facility]) Red Cell Distribution Width 13.2 % 11.5-14.5 Norm al (applies to non-numeric results) [facility] ([facility]) Platelet Count, Automated 181 10 150-450 Normal (applies to non-numeric results) [facility] ([facility]) Mean Corpuscular HGB Conc 33.9 g/dL 32.0-36.5 Normal (applies to non-numeric results) [facility]) Lymph % 40.3 % 24.0-44.0 Normal (applies to non-numeric resul ts) [facility] Neutrophils % 45.5 % 36.0-66.0 Normal (applies to non-numeric re sults) [facility]) Eos % 1.3 % 0.0-3.0 Normal (applies to non-numeric resul ts) [facility] Kern % 11.8 % 0.0-5.0 Above high normal [facility] ([facility], ) Nucleated Red Blood Cell % 0.0 % 0-0 Normal (applies to n on-numeric results) [facility] ([facility], ) Baso % 0.8 % 0.0-1.0 Normal (applies to non-numeric resul ts) [facility] ([facility]) Immature Granulocyte % 0.3 % 0-3.0 Normal (applies to non-n umeric results) [facility] ([facility]) Neutrophils # 1.7 10 1.5-8.5 Normal (applies to non-numeric re sults) [facility] ([facility]) Kern # 0.5 10 0.0-0.8 Normal (applies to non-numeric resul ts) [facility] ([facility]) Lymph # 1.5 10 1.5-5.0 Normal (applies to non-numeric resul ts) [facility] ([facility], ) Baso # 0.0 10 0.0-0.2 Normal (applies to non-numeric resul ts) [facility] ([facility]) Eos # 0.1 10 0.0-0.5 Normal (applies to non-numeric resul ts) [facility] ([facility]) ID Date Data Source [id number] 05/12/2020 03:46:39 PM EDT [facility] Name Value Range Interpretation Code Description Data Beronica e(s) Supporting Document(s) Consultation [facility] CQCGJw7vAqUGSyAu92/WEHbmFDFbn8EhBKwqHSy7AOtgWROeQ6TfBCI4hS9iYXJ2WKqPRvTpWdUdPXGc lbm [file] AgICAgICAgICAgICAgICAgICAgICAgICAgICAgICAg ANGuRQIuSVAnQYEpCOJlFS1MJSFsBCIcPQVdIUGoAICiXXOlVMQiEIIvGUOsCTDhFQNaPEUtJXIpVUFm IZUnXAVtSBRgADOoYWBiVOEgEKGjYAXiZOKsKJWgDQRbKIFqNQFcMHRxNUDhZJZvAHXgQJNgYJHxIP2N ICAgICAgICAgICAgICAgICAgICAgICAgICAgICAgIC AgICAgICAgICAgICAgICAgICAgICAgICAgICAgICAgICAgICAgICAgICAgICAgICAgICAgICAgICAgIC KvKDVsGPExFL1OKOBqCCIyCOLgHTZkMEEnXQPxCPJoVBAiRBAoRGAmFTXcOKPgTXUrDZMuXXVtDKEfNW AgICAgICAgICAgICAgICAgICAgICAgICAgICAgICAg CLQmGPUnBDYmBSWhEPPzCFIhQM9PSXQqEMIaJCBgKIRcJQZcGUOgIDOhLNLcHBEpTPUcGBJrTXIuZVEy ICAgICAgICAgICAgICAgICAgICAgICAgICAgICAgICAgICAgICAgICAgICAgICAgICAgICAgICAgICAg DJ8QZXJxRKCmSVUpIRCwVLYxBVUjIYRtSLDyAGZtJD AgICAgICAgICAgICAgICAgICAgICAgICAgICAgICAgICAgICAgICAgICAgICAgICAgICAgICAgICAgIC NiEXEmETUgGKByQD8IOLGfSIWlSUZhKUOuGBZzPENfGTIrLZKlQDKwKFAhMOBlOJThJWLvBIZtMQJrUR AgICAgICAgICAgICAgICAgICAgICAgICAgICAgICAg WSQjEAExXZUaDMBiMEGuFSBeFLDjEC7ERAJeQCJkDHDaIPNjWOMvJUGiIIUjWWAwMMEuBSMyIULoQGHn ICAgICAgICAgICAgICAgICAgICAgICAgICAgICAgICAgICAgICAgICAgICAgICAgICAgICAgICAgICAg WLVqZO3EWMEtTULkKIHvJWOwWELaFTPyNBXoWVUnJV AgICAgICAgICAgICAgICAgICAgICAgICAgICAgICAgICAgICAgICAgICAgICAgICAgICAgICAgICAgIC KqEODpZHIuSZRzKUMcRV7OCSZjJMTwQKQzMBWyQDViSVNaCDMhCMAhEKPgVTRyNIKlAGUeCHZbUNVnMT AgICAgICAgICAgICAgICAgICAgICAgICAgICAgICAg HMMmOHDfEUWdBRZuGUYqYXKaDTTxXOPzXJ1UIO72rGQwk9I4HHSvGS6wued/In9SXSgvuxVrsRFrMA6A JrMmJQ1jdq3SGuKjXV9cuz8JSGyQQrNsJ8O6jQXeDBYqHPYKGhUyH11uTTntDx81EGjmHXZbYpBdRBq5 Ut3WZsOgW0jgXJPpCmG8OYQaTrG7GUQqIkE7WOYtJc JyXOAxKTXiRJSuEHPMKES6HMXzFpTpYpBuEDWkILjjDVROXQ4PZyCbA1NjmA39AQnUBw4+DQplbmRvYm zKEoN1GLHuy3RfMOw0RR4JDPLyGwfiu0XzUORjRHOMKTsfGZ0MVPR8YVSoQLQfYz1RTLZyU383hmJeVS 3HZu6FPuNxBO1xsr2JQTNdMIVwLtqBZeu4ULvnQH6J nVBrYMqMb35ewIv3fnPxhXIPZKyiyFBIwY6cAXfiKDZlMNNxMZ6xHW8cWUDjWKMrOsH5TGUMAM5RLPLs UKFlvEKyMTFrIZTVMU5KDSbmAYX1GUSxuvMeqZPrEXkcPB1RLRPixoEbXpsfADTJHOh+Gt7SVK8kf0Uq PFf2NFObAI1wzh2QJLtVUuDaI1U9hFBaP5M2ERojYd 8HANNaEYOxAutlOZNVIYknRK3HBZ8hxhC7QG4JsBOhZCWyTSBbaZGsQCa9Y88phRZjJJatHM1FDAX+Pi A+Bk4SOQHqKSBpBNOnKoPtZHCNSwOwW1GyT0RBp6MqJ1FaHY98yYiyzgVwFCmkBE9SER9lESQaVTBFKF 1UmZInhO0lmjUrBUKeCKKSXtIaB87zvLCdZMQbQJZ5 MZFnAh3LRPCkN5WqwqFmePzirkOhJSJgJFVROI8IGAsinpNrtKJclJosKS76tJloDN6XNl4FQvLhUQ9a xg9XrYNzMp4NXTL7Sm9SPTRpUFLcVSNuYDN4BEHkLlUuOJehEPOfSRTlQXL3AQLkPQGbVH1PQoCtMBGn NRq4SytmYMQoAUXspl3POHKwTUI5OFP9VRNtJIBaSA PwIYlzZBPbCCChPGA6LTAmISYyXJ6PWgDoVTJyEYR1JDNbNUGsZIJlew1VEDMkYMLvAvk3GVVqKFCcLA CqTKnpJLTbKDY1YwX4EPDnWAUfZM0TTrXnBAVgTHU0VeTjUOQwICNcfn2ZQGGiTDLgMJl1VIAgCNHiUV AkUPsrWQDtCQEgFuNkSTMrQIBaNV2OLbGdTMRrBQAs ZyJoMPIbWTJesc7EBHAlWUUmMmFxKKHvDDZoNQHwVWyrKSRuFXS5VWOmPWBuDFMjIB2ZLrEfOJJfRHso RaUqKBHiSPKzzh5OGICvXDEfMcOtAOEdVBMtDWUbLPgwZASkVCIkAJA1IWQtUYQqPJ8RMwIqJNMiJbT5 VIrmUPEdNNYazr2FNWXfVIRfJer1EjOmGEWiPGTaSO liFCEnKBSkVUK8RIWqCYHfYY3NPtJuFCTmNpYeQiHdTPMmAYOktx7GAJAlGHHvFxZgEMLfYJKjREIzBN umQUKuCKRcWjE0ZWHcCYHuQH8CJzLmZEOePoM3STDfRBEoPNXyep5RYAVnINMjAII0OCUmVDOqZPQmRX obMNXvDVE9WzpnEUNjCTMrHW3PTlXvCLEdRvD4PDnk OKTkKUAmsw1FHBXdGMNqLMbbSRTmHMLqVUOfLJabUCYnGXI5SPL4QVVmTBCsSG5NXoEmRBEcJbBxIRtw EZKrULVthn8YBQAfEDB1AyM2UNWzNSYkDOCvZKdtNODwGFH6YMAbLKSvTSOcBK8YEhVbEWCdGGxqTVEh VFJsAVIfux4IOMMmFAF3EDH0KHZzCJCtXUTzUWquOV FhROL3SJk6LWMrKUKdZU9RCsGlDZPzILd0HFZdRDTtQHEnhf2RMKRaVCH3XRZiVZFhNKRtVOGtWQbnED FuXKY9QAB2UDMxUIDyLF5ZAvLnOTTuPCIiUynaUJZyQAVsux4GNBVpOOO2FBhkTZXaESYcCQRvHDpeSG SmYABuUxz2LOQkRVFiLW8QZpLmRGCaMTE2RgIjVHCv AXJzjp0SsHEmqYqjqu0ROMyYJr1ZwRuaNUUwJYtnNp8diZO3FGCdBMLTBz7OijHiVMTwWVNESLaoBXMo XAR2UOOsANwbFyFfXEG9NLH4GDTePgFqL4NzUgO6N7Q8ElR2CJKbUFWjI2PvUSOzGTXdYZT1VXA1PKSv CAWuOfR0Voa+XY3lTPi+Kd9Uf7TgonX2cfZyVYz4CgJ7AI3OBOAUD0KVYn== ID Date Data Source [id number] 05/12/2020 02:35:05 PM EDT [facility] Name Value Range Interpretation Code Description Data Beronica rce(s) Supporting Document(s) Discharge Summary [facility] IUTMLs7bUlOHFfMp49/THEysTIWgl0PeYXrxNNu7QChkTMVnO6WqXRL9hR7xPIQ3NHtELcMgZmOeMZXs lbm MeJrmNZnGfZLQuLwnWZdZwOPanOqpokWPuHG0ViZZ8COOrD20wVLLxAMMiD6HhCOO9NGC+Dz7HUFOgcO ZmNT6FEyhT9F3tq5u0Tn9+pC5V9f9cKxJaCraV/ryZconU6ii6d9rI+kZzext36m38kqkllw/+JFFaaS cxx1Tc6KXDKfWLaVxkjF+VWBkU154/sS4xym0r3r+7 s2ZmmssO+ZjcZU2RH6ng7W/ENSMV7bYuDl4l//Wzmp87vlz1u/VNuq7eYuaPDcQMAyMEs0M2nO660Tol +R3mWt4mEd9xbLXCWm5ZkYvIBkO6fg9womwaar30ZVXZbUFIvV9VUj5ePgtcMOza5S7H+5bioQ9/eUGm m1DLDqI9GLbMRhjNEju0xqeKFpvZACtiJLWFMfJQdw d40JT24XrQxGqBfuwNL3FQLdtnloOnr7dwR8Cuwr2HaZ4lNtgH79tMDLGtsU1YIsycUFde7zYSCmtTp4 oce4Ve8MA/nbmKNEHmmqZAbJMTzuwrPS227M2jtviGpq6055R5VHygPkZvQ+5c9xffc2eROg4bTc3Iii cLLmR/jJHjsRAduWCaQQAYH6fXdigJUVM/Z4i/g2nK RbIp4FX5aj6jYvAn9hUXH3MgF0x/nLMtItRevqX496ftsEOoqrUu+/dDZ40CY9IZJf2djlYZY250mghj qpaPxxWEO1xWJjkB2ySi7qY43ajhsFVl/R7yzkKjWBu8d8I/ES2s8gQnW/aDiMWJGManlAsy6yJcjXsF x9S3Xabh1LKQNjcY/JGpdXPHu7Mfl1doIVWDUgxtGY gZIKrcqBAEUpyoCEcW4s1KuIEeeBZuLEyoUP+bmAzmOciVykU2jQe3KRB8U1S49NAxGhLXlgAaVC/Michelle CC3Ne+EZdz9/wX54GJyE9M62JdUKNCFZhzn87CSFB8/wF5yFb2xFiW87elPj3Wi+/OL4/FydHh/sXP52 /M02eiORspd8Zjw72FzORdHyAY5qUcTXq2Mud7hJAw aCJKW0V+x59OQrKzoJX1V5L0tXxd+1GPihJKzdKfQZoxWH30Ca2+vTDdwZIiEygRM9bGMeD5NM4FwAzL fgMMAXbeujeuPqjgTset0KAIk+6Thwou++SJz0N1bWV0A2PDuSiKCzG7L9NtAAGDizymPi+JUNWaYn5D Reer++3Wzz6jxo2BYIYFd1mPtQeON3Lt+fI9KIh6XC eWH+rSTaJYBkU8MPTQdV6hMiNawQjxm315jLJyfjUOY15IlOQaN3gOComCkLWAeQXoubRB5Hc5E8jCuQ KgYQN5DF3N3eh0758gUcdjY08dx5BD0Br31afl6lOyxlafRcCaHaA06vmpxnoTDYDFVLoy/Marichuy/TadOA1 [file] qMUl3eZ9wVINkAQuOJ8HqbbUlULlMKToEMTXcglounExTmsfa/title i director+eN6ocmp2p9DeVLoCxIlVYH6feRT [file] eQOlDr8CFkYtFDDOQrDwLJ7ZIJf= ID Date Data Source [id number] 05/11/2020 12:35:16 PM [facility] Value Range Interpretation Code Description Data Beronica rce(s) Supporting Document(s) Glucose [Mass/volume] in Capillary blood by Glucometer 89 mg/dL 70- 140 [facility] ID Date Data Source [id number] 05/11/2020 08:33:06 AM [facility] Value Range Interpretation Code Description Data Beronica rce(s) Supporting Document(s) Glucose [Mass/volume] in Capillary blood by Glucometer 75 mg/dL 70- 140 [facility] ID Date Data Source [id number] 05/11/2020 04:48:45 AM [facility] Value Range Interpretation Code Description Data Beronica rce(s) Supporting Document(s) Prothrombin time (PT) 20.4 s 12.5-14.9 H [facility] INR in Platelet poor plasma by Coagulation assay 1.71 [facility] Routine intensity oral anticoagulation I NR is typically 2.0-3.0. Target INR must be clinically individualized. ID Date Data Source [id number] 05/11/2020 05:00:59 AM [facility] Value Range Interpretation Code Description Data Beronica rce(s) Supporting Document(s) Albumin [Mass/volume] in Serum or Plasma by Bromocresol green (BCG) dye binding method 2.5 g/dL 3.5-5.2 [facility] Bilirubin.total [Mass/volume] in Serum or Plasma 9.5 mg/dL <1.2 H [facility] Bilirubin.direct [Mass/volume] in Serum or Plasma 6.3 mg/dL <0.3 H [facility] Alkaline phosphatase [Enzymatic activity/volume] in Serum or Plasma 120 U/L 40-129 [facility] Aspartate aminotransferase [Enzymatic activity/volume] in Serum or Plasma 113 U/L <40 [facility] Alanine aminotransferase [Enzymatic activity/volume] in Seru m or Plasma 59 U/L <41 [facility] Protein [Mass/volume] in Serum or Plasma 7.3 g/dL 6.4-8.3 [facility] ID Date Data Source [id number] 05/11/2020 05:00:59 AM [facility] Name Value Range Interpretation Code Description Data Beronica rce(s) Supporting Document(s) Phosphate [Mass/volume] in Serum or Plasma 2.0 mg/dL 2.5-4.5 L [facility] ID Date Data Source [id number] 05/11/2020 05:00:59 AM [facility] Name Value Range Interpretation Code Description Data Beronica rce(s) Supporting Document(s) Magnesium [Mass/volume] in Serum or Plasma 1.9 mg/dL 1.6-2.6 [facility] ID Date Data Source [id number] 05/10/2020 11[facility]05[facility] NoneMicroorganism XXX Cult : 2019 nCoV Real-Time RT-PCR: NOT DETECTEDTest performed using [employer] Respiratory Panel. This test is only for use under Food and Drug Administration's Emergency Use Authorization.Additional information is available on the following FDA websites for health care providers and patients. https://www.fda.gov/media/903526/download , https://www.fda.gov/me tin/705626/downloadPolymerase chain reaction is NEGATIVE for Influenza A H1, H3 and 2009 H1 viruses, Influenza B virus, Respiratory syncytial virus, Human metapneumovirus, Parainfluenza virus 1,2,3 and 4, Adenovirus, Rhinovirus/ Enterovirus, Coronavirus HKU1, NL63, OC43 and 229E, Bordetella pertussis, B. parapertussis, Mycoplasma pneumoniae and Chlamydia pneumoniae. Name Value Range Interpretation Code Description Data Beronica rce(s) Supporting Document(s) ID Date Data Source [id number] 05/10/2020 10:03:00 PM [facility] C[facility]nt XXX-Imp : NoneMicroorganism XXX Cult : 2019 nCoV Real-Time RT-PCR: NOT DETECTEDTest performed using [employer] Respiratory Panel. This test is only for use under Food and Drug Administration's Emergency Use Authorization.Additional information is available on the following FDA websites for health care providers and patients. https://www.fda.gov/media/377814/download , https://www.fda.gov/me tin/456384/downloadPolymerase chain reaction is NEGATIVE for Influenza A H1, H3 and 2009 H1 viruses, Influenza B virus, Respiratory syncytial virus, Human metapneumovirus, Parainfluenza virus 1,2,3 and 4, Adenovirus, Rhinovirus/ Enterovirus, Coronavirus HKU1, NL63, OC43 and 229E, Bordetella pertussis, B. parapertussis, Mycoplasma pneumoniae and Chlamydia pneumoniae. Name Value Range Interpretation Code Description Data Beronica rce(s) Supporting Document(s) Microorganism identified in Unspecified specimen by [facility] This lab was ordered by [facility] and reported by [facility]. ID Date Data Source [id number] 05/10/2020 10:11:33 PM [facility] Value Range Interpretation Code Description Data Beronica rce(s) Supporting Document(s) Glucose [Mass/volume] in Capillary blood by Glucometer 138 mg/dL 70- 140 [facility] ID Date Data Source [id number] 05/10/2020 04:59:54 PM [facility] Value Range Interpretation Code Description Data Beronica rce(s) Supporting Document(s) Glucose [Mass/volume] in Capillary blood by Glucometer 150 mg/dL 70- 140 H [facility] ID Date Data Source [id number] 05/10/2020 12:19:55 PM [facility] Value Range Interpretation Code Description Data Beronica rce(s) Supporting Document(s) Glucose [Mass/volume] in Capillary blood by Glucometer 103 mg/dL 70- 140 [facility] ID Date Data Source [id number] 05/10/2020 08:24:00 AM [facility] Value Range Interpretation Code Description Data Beronica rce(s) Supporting Document(s) Glucose [Mass/volume] in Capillary blood by Glucometer 79 mg/dL 70- 140 [facility] ID Date Data Source [id number] 05/10/2020 04:28:28 AM [facility] Value Range Interpretation Code Description Data Beronica rce(s) Supporting Document(s) Prothrombin time (PT) 21.4 s 12.5-14.9 H [facility] INR in Platelet poor plasma by Coagulation assay 1.82 [facility] Routine intensity oral anticoagulation I NR is typically 2.0-3.0. Target INR must be clinically individualized. ID Date Data Source [id number] 05/10/2020 04:39:11 AM [facility] Value Range Interpretation Code Description Data Beronica rce(s) Supporting Document(s) Albumin [Mass/volume] in Serum or Plasma by Bromocresol green (BCG) dye binding method 2.3 g/dL 3.5-5.2 [facility] Bilirubin.total [Mass/volume] in Serum or Plasma 10.2 mg/dL <1.2 H [facility] Bilirubin.direct [Mass/volume] in Serum or Plasma 7.3 mg/dL <0.3 H [facility] Alkaline phosphatase [Enzymatic activity/volume] in Serum or Plasma 109 U/L 40-129 [facility] Aspartate aminotransferase [Enzymatic activity/volume] in Serum or Plasma 109 U/L <40 [facility] Alanine aminotransferase [Enzymatic activity/volume] in Seru m or Plasma 53 U/L <41 [facility] Protein [Mass/volume] in Serum or Plasma 6.5 g/dL 6.4-8.3 [facility] ID Date Data Source [id number] 05/10/2020 04:39:11 AM [facility] Value Range Interpretation Code Description Data Beronica rce(s) Supporting Document(s) Magnesium [Mass/volume] in Serum or Plasma 1.8 mg/dL 1.6-2.6 [facility] ID Date Data Source [id number] 05/10/2020 04:39:11 AM [facility] Value Range Interpretation Code Description Data Beronica rce(s) Supporting Document(s) Phosphate [Mass/volume] in Serum or Plasma 2.7 mg/dL 2.5-4.5 [facility] ID Date Data Source [id number] 05/09/2020 09:39:53 PM [facility] Value Range Interpretation Code Description Data Beronica rce(s) Supporting Document(s) Glucose [Mass/volume] in Capillary blood by Glucometer 89 mg/dL 70- 140 [facility] ID Date Data Source [id number] 05/12/2020 07:06:04 PM EDT [facility] Name Value Range Interpretation Code Description Data Beronica rce(s) Supporting Document(s) Corticotropin [Mass/volume] in Plasma 13.7 pg/mL 7.2-63.3 [facility] (NOTE)ACTH reference interval for sample s collected between 7 and 10 AM.Performed At: RN [facility] [address] [id number] Aguiar MD Ph:[id number] ID Date Data Source [id number] 05/09/2020 05:17:06 PM EDT [facility] Name Value Range Interpretation Code Description Data Beronica rce(s) Supporting Document(s) Glucose [Mass/volume] in Capillary blood by Glucometer 101 mg/dL 70- 140 [facility] ID Date Data Source [id number] [facility] [id number] RESULTI nterpreted by:Rick Langley [facility] IN[facility]: Exam: XR Chest, 1 View Exam date and time: 05/09/2020 1:44 PM Age: 49 years old Clinical indication: Alcohol dependence with withdrawal, uncomplicated; Alcoholic hepatitis without ascites; Chest pain; Type not specified; Additional info: Evaluation for fever TECHNIQUE: Imaging protocol: XR of the chest Views: 1 view. COMPARISON: CR XR CHEST FRONTAL ONLY [id number] PORTABLE 04/25/2020 5:22 AM FINDINGS: Tubes, catheters and devices: A PICC line is present on the right side extending into the SVC Lungs: Linear parenc hymal densities seen in the right lower lobe consistent with atelectasis. These findings were present on prior examination. Pleural space: Unremarkable. No pleural effusion. No pneumothorax. Heart/Mediastinum: Unremarkable. No cardiomegaly. Bones/joints: Unremarkable. IMPRESSION: 1. Right lower lobe parenchymal density possible atelectasis 2. Otherwise No acute findings. 3. A right PICC line is present extending to the SVC THIS DOCUMENT HAS BEEN ELECTRONICALLY SIGNED BY RICK LANGLEY MDThis document has been electronically signed by Rick Langley MD on 05/09/2020 2:41 PM Name Value Range Interpretation Code Description Data Beronica rce(s) Supporting Document(s) ID Date Data Source [id number] 05/09/2020 02:53:34 PM EDT [facility] Name Value Range Interpretation Code Description Data Beronica rce(s) Supporting Document(s) Leukocytes [#/volume] in Blood by Automated count 7.1 10*3/uL 4-10 [facility] ID Date Data Source [id number] 05/14/2020 11:01:00 AM EDT [facility] Service Cmnt XXX-Imp : LEFT HANDMicroorg anism XXX Cult : No growth 5 days Name Value Range Interpretation Code Description Data Beronica rce(s) Supporting Document(s) ID Date Data Source [id number] 05/14/2020 11:01:00 AM EDT [facility] Service Cmnt XXX-Imp : RT HANDMicroorga nism XXX Cult : No growth 5 days Name Value Range Interpretation Code Description Data Beronica rce(s) Supporting Document(s) ID Date Data Source [id number] [facility] Value Range Interpretation Code Description Data Beronica rce(s) Supporting Document(s) Color of Urine [facility] Clarity of Urine [facility] Specific gravity of Urine by Refractometry automated 1.008 1.003 -1.030 [facility] pH of Urine by Automated test strip 6.0 5.0-8.0 [facility] Protein [Mass/volume] in Urine by Automated test strip Neg [facility] Glucose [Mass/volume] in Urine by Automated test strip Neg [facility] Ketones [Mass/volume] in Urine by Automated test strip Neg [facility] Bilirubin.total [Presence] in Urine by Automated test strip Negative [facility] False-positive results may occur with ce rtain food additives or medications. Hemoglobin [Presence] in Urine by Automated test strip Neg ative [facility] Leukocyte esterase [Presence] in Urine by Automated test strip Negative [facility] Nitrite [Presence] in Urine by Automated test strip Negati [facility] Leukocytes [#/area] in Urine sediment by Automated count 1 /HPF 0 -5 [facility] Erythrocytes [#/area] in Urine sediment by Automated count 1 /HPF 0-3 [facility] Service comment [facility] Bacteria [#/area] in Urine sediment by Automated count Non e [facility] Mucus [#/area] in Urine sediment by Microscopy low power field None [facility] ID Date Data Source [id number] 05/09/2020 12:29:24 PM [facility] Value Range Interpretation Code Description Data Beronica rce(s) Supporting Document(s) Glucose [Mass/volume] in Capillary blood by Glucometer 76 mg/dL 70- 140 [facility] ID Date Data Source [id number] 05/09/2020 10:33:47 AM [facility] Value Range Interpretation Code Description Data Beronica rce(s) Supporting Document(s) Cortisol [Mass/volume] in Serum or Plasma 5.8 ug/dL [facility] Ref range for 6-10 am samples: 6.0-18.4 ug/dLRef range for 4-8 pm samples: 2.7- 10.5 ug/dLRef range not established for other times. ID Date Data Source [id number] 05/09/2020 08:35:41 AM [facility] Value Range Interpretation Code Description Data Beronica rce(s) Supporting Document(s) Glucose [Mass/volume] in Capillary blood by Glucometer 73 mg/dL 70- 140 [facility] ID Date Data Source [id number] 05/09/2020 05:00:14 AM [facility] Value Range Interpretation Code Description Data Beronica rce(s) Supporting Document(s) Prothrombin time (PT) 20.6 s 12.5-14.9 H [facility] INR in Platelet poor plasma by Coagulation assay 1.74 [facility] Routine intensity oral anticoagulation I NR is typically 2.0-3.0. Target INR must be clinically individualized. ID Date Data Source [id number] 05/09/2020 05:22:16 AM [facility] Value Range Interpretation Code Description Data Beronica rce(s) Supporting Document(s) Phosphate [Mass/volume] in Serum or Plasma 3.2 mg/dL 2.5-4.5 [facility] ID Date Data Source [id number] 05/09/2020 05:22:16 AM [facility] Value Range Interpretation Code Description Data Beronica rce(s) Supporting Document(s) Cortisol [Mass/volume] in Serum or Plasma 2.9 ug/dL [facility] Ref range for 6-10 am samples: 6.0-18.4 ug/dLRef range for 4-8 pm samples: 2.7- 10.5 ug/dLRef range not established for other times. ID Date Data Source [id number] 05/09/2020 05:22:16 AM [facility] Value Range Interpretation Code Description Data Beronica rce(s) Supporting Document(s) Albumin [Mass/volume] in Serum or Plasma by Bromocresol green (BCG) dye binding method 2.4 g/dL 3.5-5.2 [facility] Bilirubin.total [Mass/volume] in Serum or Plasma 11.7 mg/dL <1.2 H [facility] Bilirubin.direct [Mass/volume] in Serum or Plasma 8.4 mg/dL <0.3 H [facility] Alkaline phosphatase [Enzymatic activity/volume] in Serum or Plasma 117 U/L 40-129 [facility] Aspartate aminotransferase [Enzymatic activity/volume] in Serum or Plasma 111 U/L <40 H [facility] Alanine aminotransferase [Enzymatic activity/volume] in Seru m or Plasma 55 U/L <41 H [facility] Protein [Mass/volume] in Serum or Plasma 6.5 g/dL 6.4-8.3 [facility] ID Date Data Source [id number] 05/09/2020 05:22:16 AM [facility] Value Range Interpretation Code Description Data Beronica rce(s) Supporting Document(s) Magnesium [Mass/volume] in Serum or Plasma 1.6 mg/dL 1.6-2.6 [facility] ID Date Data Source [id number] 05/08/2020 10:13:14 PM [facility] Value Range Interpretation Code Description Data Beronica rce(s) Supporting Document(s) Glucose [Mass/volume] in Capillary blood by Glucometer 101 mg/dL 70- 140 [facility] ID Date Data Source [id number] 05/08/2020 05:11:07 PM [facility] Value Range Interpretation Code Description Data Beronica rce(s) Supporting Document(s) Glucose [Mass/volume] in Capillary blood by Glucometer 90 mg/dL 70- 140 [facility] ID Date Data Source [id number] 05/08/2020 12:44:26 PM [facility] Value Range Interpretation Code Description Data Beronica rce(s) Supporting Document(s) Glucose [Mass/volume] in Capillary blood by Glucometer 104 mg/dL 70- 140 [facility] ID Date Data Source [id number] 05/14/2020 05:06:17 PM [facility] Value Range Interpretation Code Description Data Beronica rce(s) Supporting Document(s) Glucagon [Mass/volume] in Serum or Plasma 125 pg/mL 50-150 [facility] (NOTE)Results of this test are labeled f or research purposes only by theassay's structural designer. The performance characteristics of this assayhave not been established by the structural designer. The result shouldnot be used for treatment or for diagnostic purposes withoutconfirmation of the diagnosis by another medically establisheddiagnostic product or procedure. The performance characteristics weredetermined by [employer].Performed At: [facility] [id number] Sanjai MD Ph:[phone] ID Date Data Source [id number] 05/12/2020 09:10:10 AM [facility] Value Range Interpretation Code Description Data Beronica rce(s) Supporting Document(s) C peptide [Mass/volume] in Serum or Plasma 4.7 ng/mL 0.8-5.2 [facility] ID Date Data Source [id number] 05/16/2020 01:06:15 PM [facility] Value Range Interpretation Code Description Data Beronica rce(s) Supporting Document(s) Insulin Ab [Units/volume] in Serum 13 uU/mL [facility] (NOTE)This test is also known as insulin autoantibody or IAA.This test was developed and its performance characteristicsdetermined by [employer]. It has not been cleared or approvedby the Food and Drug Administration.Reference Range:<5.0 Negative> or = 5.0 PositivePerformed At: [facility] [id number], [place] [id number] Samuel H MD Ph:[phone] ID Date Data Source [id number] 05/08/2020 10:59:11 AM [facility] Name Value Range Interpretation Code Description Data Beronica rce(s) Supporting Document(s) Leukocytes [#/volume] in Blood by Automated count 7.2 10*3/uL 4-10 [facility] Erythrocytes [#/volume] in Blood by Automated count 2.77 10*6/uL 4.6- 6.1 L [facility] Hemoglobin [Mass/volume] in Blood 10.1 g/dL 13.5-18 L [facility] Hematocrit [Volume Fraction] of Blood by Automated count 29.4 % 4 1-53 L [facility] Erythrocyte mean corpuscular volume [Entitic volume] b y Automated count 106.0 fL 80-96 H [facility] Erythrocyte mean corpuscular hemoglobin [Entitic mass] by Automated count 36.4 pg 27-33 H [facility] Erythrocyte mean corpuscular hemoglobin concentration [Mass/volume] by Automated count 34.3 g/dL 32.0-36.0 [facility] Erythrocyte distribution width [Ratio] by Automated count 15.5 % 11.5-14.5 H [facility] Platelets [#/volume] in Blood by Automated count 98 10*3/uL 150-400 L [facility] ID Date Data Source [id number] 05/08/2020 11:19:32 AM [facility] Name Value Range Interpretation Code Description Data Beronica rce(s) Supporting Document(s) Beta hydroxybutyrate [Moles/volume] in Serum or Plasma 0.09 mmol/L <0 .60 [facility] (NOTE) <0.60 Normal 0.60-1.50 May indicate the development of a problem >1.50 At risk for DKA ID Date Data Source [id number] 05/08/2020 11:19:32 AM [facility] Value Range Interpretation Code Description Data Beronica rce(s) Supporting Document(s) Bicarbonate [Moles/volume] in Serum 22 mmol/L 22-29 [facility] Chloride [Moles/volume] in Serum or Plasma 99 mmol/L 98-107 [facility] Creatinine [Mass/volume] in Serum or Plasma 0.44 mg/dL 0.70-1.20 [facility] Glucose [Mass/volume] in Serum or Plasma 105 mg/dL 70-140 [facility] Potassium [Moles/volume] in Serum or Plasma 3.7 mmol/L 3.4-5.1 [facility] Sodium [Moles/volume] in Serum or Plasma 129 mmol/L 136-145 L [facility] Urea nitrogen [Mass/volume] in Serum or Plasma 6 mg/dL 6-20 [facility] Anion gap 3 in Serum or Plasma 9 mmol/L 8-15 [facility] Osmolality of Serum or Plasma by calculation 266 mosm/kg 275-300 L [facility] Creatinine/Urea nitrogen [Mass Ratio] in Serum or Plasma 14 [facility] Calcium [Mass/volume] in Serum or Plasma 7.9 mg/dL 8.6-10.0 L [facility] Glomerular filtration rate/1.73 sq M pre dicted among non-blacks [Volume Rate/Area] in Serum or Plasma by Creatinine-based formula (MDRD) >6 0 [facility] Glomerular filtration rate/1.73 sq M pre dicted among blacks [Volume Rate/Area] in Serum or Plasma by Creatinine-based formula (MDRD) >60 [facility] ID Date Data Source [id number] 05/08/2020 08:49:11 AM [facility] Value Range Interpretation Code Description Data Beronica rce(s) Supporting Document(s) Glucose [Mass/volume] in Capillary blood by Glucometer 70 mg/dL 70- 140 [facility] ID Date Data Source [id number] 05/08/2020 05:57:47 AM [facility] Value Range Interpretation Code Description Data Beronica rce(s) Supporting Document(s) Prothrombin time (PT) 21.5 s 12.5-14.9 H [facility] INR in Platelet poor plasma by Coagulation assay 1.83 [facility] Routine intensity oral anticoagulation I NR is typically 2.0-3.0. Target INR must be clinically individualized. ID Date Data Source [id number] 05/08/2020 05:59:51 AM [facility] Value Range Interpretation Code Description Data Beronica rce(s) Supporting Document(s) Albumin [Mass/volume] in Serum or Plasma by Bromocresol green (BCG) dye binding method 2.2 g/dL 3.5-5.2 [facility] Bilirubin.total [Mass/volume] in Serum or Plasma 12.9 mg/dL <1.2 H [facility] Bilirubin.direct [Mass/volume] in Serum or Plasma 9.0 mg/dL <0.3 H [facility] Alkaline phosphatase [Enzymatic activity/volume] in Serum or Plasma 115 U/L 40-129 [facility] Aspartate aminotransferase [Enzymatic activity/volume] in Serum or Plasma 111 U/L <40 H [facility] Alanine aminotransferase [Enzymatic activity/volume] in Seru m or Plasma 57 U/L <41 H [facility] Protein [Mass/volume] in Serum or Plasma 6.6 g/dL 6.4-8.3 [facility] ID Date Data Source [id number] 05/08/2020 05:59:51 AM [facility] Name Value Range Interpretation Code Description Data Beronica rce(s) Supporting Document(s) Magnesium [Mass/volume] in Serum or Plasma 1.6 mg/dL 1.6-2.6 [facility] ID Date Data Source [id number] 05/08/2020 05:59:51 AM [facility] Name Value Range Interpretation Code Description Data Beronica rce(s) Supporting Document(s) Phosphate [Mass/volume] in Serum or Plasma 2.9 mg/dL 2.5-4.5 [facility] ID Date Data Source [id number] 05/08/2020 05:59:21 AM [facility] Name Value Range Interpretation Code Description Data Beronica rce(s) Supporting Document(s) Hemoglobin A1c/Hemoglobin.total in Blood by HPLC 4.2 % 4.0-6.0 [facility] Glucose mean value [Mass/volume] in Blood Estimated fr glycated hemoglobin 74 mg/dL <126 [facility] ID Date Data Source [id number] 05/07/2020 10:43:[address] [facility] CT ABDOMEN PELVIS WITH CONTRAST [id number] RESULTInterpreted by:DANDRE MerinoROCEDURE INFORMATION: Exam: CT Abdomen And Pelvis With Contrast Exam date and time: 05/07/2020 9:03 PM Age: 49 years old Clinical indication: Alcohol dependence with withdrawal, uncomplicated; Alcoholic hepatitis without ascites; Abdominal pain; Generalized; Additional info: Evaluation for abdominal pain, nausea and vomiting TECHNIQUE: Imaging protocol: Computed tomography of the abdomen and pelvis with intravenous contrast. Radiation optimization: All CT scans at this facility use at least one of these dose optimization techniques: automated exposure control; mA and/or kV adjustment per patient size (includes targeted exams where dose is matched to clinical indication); or iterative reconstruction. Contrast material: OMNI 300; Contrast volume: 100 ml; Contrast route: INTRAVENOUS (IV); COMPARISON: CT Private^ABDOMEN ROUTINE (Adult) 04/25/2020 5:47 AM FINDINGS: Lungs: Subsegmental atelectasis and/or scarring at the right lung base. Liver: Hepatic steatosis. Hepatomegaly with the liver measuring 24 cm in vertical axis. Gallbladder and bile ducts: Minimal gallbladder wall thickening is probably secondary to the ascites, congestive changes, or another less likely process such as hypoalbuminemia, hepatitis, HIV, possibly even chronic cholecystitis. Acute cholecystitis could also possibly be considered in the appropriate clinical setting. A tiny gallstone at the gallbladder fundus is questioned. Pancreas: Normal. No ductal dilation. Spleen: Mild splenomegaly with the spleen measuring approximately 16 cm in long axis. A drenals: Normal. No mass. Kidneys and ureters: Normal. No hydronephrosis. Stomach and bowel: Colonic wall thickening primarily involving the proximal to mid colon, in keeping with segmental colitis. No small bowel obstruction. Appendix: Normal appendix. Intraperitoneal space: Small ascites. Vasculature: Unremarkable. No abdominal aortic aneurysm. Lymph nodes: Unremarkable. No enlarged lymph nodes. Bladder: Unremarkable as visualized. Reproductive: Unremarkable as visualized. Bones/joints: Unremarkable. No acute fracture. Soft tissues: Unremarkable. IMPRESSION: 1. Possible cholelithiasis. Mild diffuse gallbladder [...] Small ascites. 5. Segmental colitis, likely infectious/inflammatory. THIS DOCUMENT HAS BEEN ELECTRONICALLY SIGNED BY ROMEO SALAS MDThis document has been electronically signed by Romeo Salas MD on 05/07/2020 10:43 PM Name Value Range Interpretation Code Description Data Beronica rce(s) Supporting Document(s) ID Date Data Source [id number] 05/08/2020 12:02:31 AM [facility] Service Cmnt XXX-Imp : NoneMicroorganism XXX Cult : 2019 nCoV Real-Time RT-PCR: NOT DETECTEDTest performed using [employer] Respiratory Panel. This test is only for use under Food and Drug Administration's Emergency Use Authorization.Additional information is available on the following FDA websites for health care providers and patients. https://www.fda.gov/media/370367/download , https://www.fda.gov/nh tin/586119/downloadPolymerase chain reaction is NEGATIVE for Influenza A H1, H3 and 2009 H1 viruses, Influenza B virus, Respiratory syncytial virus, Human metapneumovirus, Parainfluenza virus 1,2,3 and 4, Adenovirus, Rhinovirus/ Enterovirus, Coronavirus HKU1, NL63, OC43 and 229E, Bordetella pertussis, B. parapertussis, Mycoplasma pneumoniae and Chlamydia pneumoniae. Name Value Range Interpretation Code Description Data Beronica rce(s) Supporting Document(s) ID Date Data Source [id number] 05/07/2020 10:39:00 PM [facility] Service Cmnt XXX-Imp : NoneMicroorganism XXX Cult : 2019 nCoV Real-Time RT-PCR: NOT DETECTEDTest performed using [employer] Respiratory Panel. This test is only for use under Food and Drug Administration's Emergency Use Authorization.Additional information is available on the following FDA websites for health care providers and patients. https://www.fda.gov/media/219378/download , https://www.[facility].gov/nh tin/225803/downloadPolymerase chain reaction is NEGATIVE for Influenza A H1, H3 and 2009 H1 viruses, Influenza B virus, Respiratory syncytial virus, Human metapneumovirus, Parainfluenza virus 1,2,3 and 4, Adenovirus, Rhinovirus/ Enterovirus, Coronavirus HKU1, NL63, OC43 and 229E, Bordetella pertussis, B. parapertussis, Mycoplasma pneumoniae and Chlamydia pneumoniae. Name Value Range Interpretation Code Description Data Beronica rce(s) Supporting Document(s) Microorganism identified in Unspecified specimen by [facility] This lab was ordered by [facility] and reported by [facility]. ID Date Data Source [id number] 05/07/2020 09:34:33 PM [facility] Name Value Range Interpretation Code Description Data Beronica rce(s) Supporting Document(s) Glucose [Mass/volume] in Capillary blood by Glucometer 89 mg/dL 70- 140 [facility] ID Date Data Source [id number] 05/07/2020 05:08:17 PM [facility] Value Range Interpretation Code Description Data Beronica rce(s) Supporting Document(s) Glucose [Mass/volume] in Capillary blood by Glucometer 103 mg/dL 70- 140 [facility] ID Date Data Source [id number] 05/07/2020 04:21:43 PM [facility] HEPATOBILIARY IMAGING HIDA [id number] RESULTInterpreted by:Radu Castaneda, Christine Ignacio MDINDICATION: Evaluate for biliary abnormality. Suspected alcoholic hepatitis.COMPARISON: Abdominal ultrasound 05/06/2020.TECHNIQUE: -Scan region: Abdomen.-Pre-treatment: None.-Injected dose: 6.97 mCi of Tc-99m labeled Mebrofenin.-Initial dynamic images: 60 minutes.FINDINGS: There is persistent blood pool activity with delayed hepatic clearance which may represent a component of hepatocellular dysfunction. The gallbladder and small bowel are visualized. No defects of uptake are seen within the liver. IMPRESSION:1. No evidence of cystic or common bile duct obstruction.2. Slow hepatic radiotracer clearance which is consistent with known hepatocellular dysfunction.This document has been electronically signed by Radu Castaneda MD on 05/07/2020 4:19 PM Name Value Range Interpretation Code Description Data Beronica rce(s) Supporting Document(s) ID Date Data Source [id number] 05/07/2020 12:22:34 PM [facility] Value Range Interpretation Code Description Data Beronica rce(s) Supporting Document(s) Glucose [Mass/volume] in Capillary blood by Glucometer 79 mg/dL 70- 140 [facility] ID Date Data Source [id number] 05/07/2020 08:19:42 AM [facility] Value Range Interpretation Code Description Data Beronica rce(s) Supporting Document(s) Glucose [Mass/volume] in Capillary blood by Glucometer 74 mg/dL 70- 140 [facility] ID Date Data Source [id number] 05/07/2020 08:19:37 AM [facility] Value Range Interpretation Code Description Data Beronica rce(s) Supporting Document(s) Glucose [Mass/volume] in Capillary blood by Glucometer 35 mg/dL 70- 140 [facility] ID Date Data Source [id number] 05/07/2020 08:34:45 AM EDT [facility] Name Value Range Interpretation Code Description Data Beronica rce(s) Supporting Document(s) Bicarbonate [Moles/volume] in Serum 23 mmol/L 22-29 [facility] Chloride [Moles/volume] in Serum or Plasma 100 mmol/L 98-107 [facility] Creatinine [Mass/volume] in Serum or Plasma 0.38 mg/dL 0.70-1.20 L [facility] [employer] Glucose [Mass/volume] in Serum or Plasma 89 mg/dL 70-140 [facility] Potassium [Moles/volume] in Serum or Plasma 4.2 mmol/L 3.4-5.1 [facility] Sodium [Moles/volume] in Serum or Plasma 132 mmol/L 136-145 L [facility] Urea nitrogen [Mass/volume] in Serum or Plasma 6 mg/dL 6-20 [facility] Anion gap 3 in Serum or Plasma 9 mmol/L 8-15 [facility] Osmolality of Serum or Plasma by calculation 271 mosm/kg 275-300 L [facility] Creatinine/Urea nitrogen [Mass Ratio] in Serum or Plasma 16 [facility] Calcium [Mass/volume] in Serum or Plasma 8.0 mg/dL 8.6-10.0 L [facility] Glomerular filtration rate/1.73 sq M pre dicted among non-blacks [Volume Rate/Area] in Serum or Plasma by Creatinine-based formula (MDRD) >6 0 [facility] Glomerular filtration rate/1.73 sq M pre dicted among blacks [Volume Rate/Area] in Serum or Plasma by Creatinine-based formula (MDRD) >60 [facility] ID Date Data Source [id number] 05/07/2020 04:56:00 AM [facility] Value Range Interpretation Code Description Data Beronica rce(s) Supporting Document(s) Leukocytes [#/volume] in Blood by Automated count 6.7 10*3/uL 4-10 [facility] Erythrocytes [#/volume] in Blood by Automated count 2.77 10*6/uL 4.6- 6.1 L [facility] Hemoglobin [Mass/volume] in Blood 10.1 g/dL 13.5-18 L [facility] Hematocrit [Volume Fraction] of Blood by Automated count 29.6 % 4 1-53 L [facility] Erythrocyte mean corpuscular volume [Entitic volume] b y Automated count 106.8 fL 80-96 H [facility] Erythrocyte mean corpuscular hemoglobin [Entitic mass] by Automated count 36.5 pg 27-33 H [facility] Erythrocyte mean corpuscular hemoglobin concentration [Mass/volume] by Automated count 34.2 g/dL 32.0-36.0 [facility] Erythrocyte distribution width [Ratio] by Automated count 15.8 % 11.5-14.5 H [facility] Platelets [#/volume] in Blood by Automated count 89 10*3/uL 150-400 L [facility] ID Date Data Source [id number] 05/07/2020 05:08:11 AM [facility] Value Range Interpretation Code Description Data Beronica rce(s) Supporting Document(s) Prothrombin time (PT) 23.2 s 12.5-14.9 H [facility] INR in Platelet poor plasma by Coagulation assay 2.02 [facility] Routine intensity oral anticoagulation I NR is typically 2.0-3.0. Target INR must be clinically individualized. ID Date Data Source [id number] 05/07/2020 05:23:08 AM [facility] Value Range Interpretation Code Description Data Beronica rce(s) Supporting Document(s) Albumin [Mass/volume] in Serum or Plasma by Bromocresol green (BCG) dye binding method 2.1 g/dL 3.5-5.[address] [facility] Bilirubin.total [Mass/volume] in Serum or Plasma 12.0 mg/dL <1.2 H [facility] Bilirubin.direct [Mass/volume] in Serum or Plasma 8.3 mg/dL <0.3 H [facility] Alkaline phosphatase [Enzymatic activity/volume] in Serum or Plasma 118 U/L 40-129 [facility] Aspartate aminotransferase [Enzymatic activity/volume] in Serum or Plasma 109 U/L <40 H [facility] Alanine aminotransferase [Enzymatic activity/volume] in Seru m or Plasma 57 U/L <41 H [facility] Protein [Mass/volume] in Serum or Plasma 6.4 g/dL 6.4-8.3 [facility] ID Date Data Source [id number] 05/07/2020 05:23:08 AM [facility] Value Range Interpretation Code Description Data Beronica rce(s) Supporting Document(s) Magnesium [Mass/volume] in Serum or Plasma 1.5 mg/dL 1.6-2.6 L [facility] ID Date Data Source [id number] 05/07/2020 05:23:08 AM [facility] Name Value Range Interpretation Code Description Data Beronica rce(s) Supporting Document(s) Phosphate [Mass/volume] in Serum or Plasma 2.6 mg/dL 2.5-4.5 [facility] ID Date Data Source [id number] 05/06/2020 09:32:24 PM [facility] Name Value Range Interpretation Code Description Data Beronica rce(s) Supporting Document(s) Glucose [Mass/volume] in Capillary blood by Glucometer 94 mg/dL 70- 140 [facility] ID Date Data Source [id number] 05/06/2020 05:49:45 PM [facility] CT HEAD WITHOUT CONTRAST [id number] RESU LTInterpreted by:DANDRE MckeonROCEDURE INFORMATION: Exam: CT Head Without Contrast Exam date and time: 05/06/2020 4:52 PM Age: 49 years old Clinical indication: Alcohol dependence with withdrawal, uncomplicated; Alcoholic hepatitis without ascites; Dizziness TECHNIQUE: Imaging protocol: Computed tomography of the head without contrast. Radiation optimization: All CT scans at this facility use at least one of these dose optimization techniques: automated exposure control; mA and/or kV adjustment per patient size (includes targeted exams where dose is matched to clinical indication); or iterative reconstruction. COMPARISON: No relevant prior studies available. FINDINGS: Brain: No mass or hemorrhage. Ventricles: No ventriculomegaly. Bones/joints: Calvarium intact. Paranasal sinuses: Complete opacification of the visualized left maxillary sinus, peripheral bony thickening consistent with chronic sinusitis. Mastoid air cells: No mastoid effusion. Soft tissues: No significant soft tissue abnormality. IMPRESSION: No acute intracranial abnormality. THIS DOCUMENT HAS BEEN ELECTRONICALLY SIGNED BY LUCIAN MANDUJANO MDThis document has been electronically signed by Lucian Mandujano MD on 05/06/2020 5:49 PM Name Value Range Interpretation Code Description Data Beronica rce(s) Supporting Document(s) ID Date Data Source [id number] 05/06/2020 05:14:03 PM [facility] Name Value Range Interpretation Code Description Data Beronica rce(s) Supporting Document(s) Glucose [Mass/volume] in Capillary blood by Glucometer 98 mg/dL 70- 140 [facility] ID Date Data Source [id number] 05/06/2020 03:53:52 PM EDT [facility] Name Value Range Interpretation Code Description Data Beronica rce(s) Supporting Document(s) Glucose [Mass/volume] in Capillary blood by Glucometer 83 mg/dL 70- 140 [facility] ID Date Data Source [id number] 05/06/2020 03:42:36 PM [facility] US ABDOMEN LIMITED [id number] RESULTInte rpreted by:JAYSON ThorpeLINICAL HISTORY:49-year-old male with hyperbilirubinemia and transaminitis, who presents for sonographic follow-up.TECHNIQUE:Multiple real-time sonographic images of the right upper quadrant were obtained.COMPARISON:Compared to the prior right upper quadrant sonogram dated 05/10/2020. FINDINGS:Imaging is limited due to the patient's body habitus and bowel gas.LIVER: The liver measures 228 mm in the longitudinal dimension along the midclavicular line.The liver is moderately increased in echogenicity with decreased through-transmission. There are no focal lesions or intrahepatic ductal dilatation. GALLBLADDER: The gallbladder is distended, measuring 129 x 44 mm and the gallbladder wall is at the upper limits of normal measuring 2.6 mm. There is [id number] gallbladder sludge and mobile gallstones layering dependently within the gallbladder neck.There is a trace amount of pericholecystic fluid. There is no sonographic Pacheco sign. COMMON DUCT: The common duct is normal in caliber, measuring 4 mm at the level of the hepatic artery. PANCREAS: The visualized portions of the pancreatic head and body are normal in echogenicity. The distal body and tail are obscured by bowel gas.RIGHT KIDNEY: The right kidney measures 116 x 70 x 54 mm and the cortex measures 20 mm in thickness. The kidney is normal in echogenicity and there is no evidence of hydronephrosis, renal stones or solid mass. ADDITIONAL FINDINGS: There is a mild amount of free fluid in the perihepatic region. IMPRESSION:1. There is moderate hepatomegaly and moderate fatty change of the liver with no evidence of biliary obstruction.2. The gallbladder is distended and there is no gallbladder sludge and gallstones layering dependently with trace amount of pericholecystic fluid. However, there is no evidence of a sonographic Pacheco sign.3. The remaining visualized structures are normal.This document has been electronically signed by Kevin Walker MD on 05/06/2020 3:40 PM Name Value Range Interpretation Code Description Data Beronica rce(s) Supporting Document(s) ID Date Data Source [id number] 05/06/2020 01:42:46 PM [facility] Value Range Interpretation Code Description Data Beronica rce(s) Supporting Document(s) Leukocytes [#/volume] in Blood by Automated count 6.7 10*3/uL 4-10 [facility] Erythrocytes [#/volume] in Blood by Automated count 2.85 10*6/uL 4.6- 6.1 L [facility] Hemoglobin [Mass/volume] in Blood 10.4 g/dL 13.5-18 L [facility] Hematocrit [Volume Fraction] of Blood by Automated count 30.3 % 4 1-53 [facility] Erythrocyte mean corpuscular volume [Entitic volume] b y Automated count 106.1 fL 80-96 [facility] Erythrocyte mean corpuscular hemoglobin [Entitic mass] by Automated count 36.4 pg 27-33 [facility] Erythrocyte mean corpuscular hemoglobin concentration [Mass/volume] by Automated count 34.3 g/dL 32.0-36.0 [facility] Erythrocyte distribution width [Ratio] by Automated count 15.7 % 11.5-14.5 [facility] Platelets [#/volume] in Blood by Automated count 87 10*3/uL 150-400 [facility] ID Date Data Source [id number] 05/06/2020 12:33:22 PM [facility] Name Value Range Interpretation Code Description Data Beronica rce(s) Supporting Document(s) Glucose [Mass/volume] in Capillary blood by Glucometer 96 mg/dL 70- 140 [facility] ID Date Data Source [id number] 05/06/2020 08:34:21 AM [facility] Value Range Interpretation Code Description Data Beronica rce(s) Supporting Document(s) Glucose [Mass/volume] in Capillary blood by Glucometer 90 mg/dL 70- 140 [facility] ID Date Data Source [id number] 05/06/2020 05:30:17 AM [facility] Name Value Range Interpretation Code Description Data Beronica rce(s) Supporting Document(s) Bicarbonate [Moles/volume] in Serum 23 mmol/L 22-29 [facility] Chloride [Moles/volume] in Serum or Plasma 100 mmol/L 98-107 [facility] Creatinine [Mass/volume] in Serum or Plasma 0.34 mg/dL 0.70-1.20 L [facility] Icteric Glucose [Mass/volume] in Serum or Plasma 115 mg/dL 70-140 [facility] Potassium [Moles/volume] in Serum or Plasma 4.2 mmol/L 3.4-5.1 [facility] Sodium [Moles/volume] in Serum or Plasma 133 mmol/L 136-145 L [facility] Urea nitrogen [Mass/volume] in Serum or Plasma 7 mg/dL 6-20 [facility] Anion gap 3 in Serum or Plasma 9 mmol/L 8-15 [facility] Osmolality of Serum or Plasma by calculation 275 mosm/kg 275-300 [facility] Creatinine/Urea nitrogen [Mass Ratio] in Serum or Plasma 21 [facility] Calcium [Mass/volume] in Serum or Plasma 8.3 mg/dL 8.6-10.0 L [facility] Glomerular filtration rate/1.73 sq M pre dicted among non-blacks [Volume Rate/Area] in Serum or Plasma by Creatinine-based formula (MDRD) >6 0 [facility] Glomerular filtration rate/1.73 sq M pre dicted among blacks [Volume Rate/Area] in Serum or Plasma by Creatinine-based formula (MDRD) >60 [facility] ID Date Data Source [id number] 05/06/2020 05:30:17 AM [facility] Value Range Interpretation Code Description Data Breonica rce(s) Supporting Document(s) Magnesium [Mass/volume] in Serum or Plasma 1.6 mg/dL 1.6-2.6 [facility] ID Date Data Source [id number] 05/06/2020 05:30:17 AM [facility] Value Range Interpretation Code Description Data Beronica rce(s) Supporting Document(s) Phosphate [Mass/volume] in Serum or Plasma 3.0 mg/dL 2.5-4.5 [facility] ID Date Data Source [id number] 05/06/2020 05:46:24 AM [facility] Value Range Interpretation Code Description Data Beronica rce(s) Supporting Document(s) Prothrombin time (PT) 21.9 s 12.5-14.9 H [facility] INR in Platelet poor plasma by Coagulation assay 1.87 [facility] Routine intensity oral anticoagulation I NR is typically 2.0-3.0. Target INR must be clinically individualized. ID Date Data Source [id number] 05/06/2020 08:58:07 AM [facility] Value Range Interpretation Code Description Data Beronica rce(s) Supporting Document(s) Albumin [Mass/volume] in Serum or Plasma by Bromocresol green (BCG) dye binding method 2.6 g/dL 3.5-5.2 L [facility] Bilirubin.total [Mass/volume] in Serum or Plasma 13.4 mg/dL <1.2 H [facility] Bilirubin.direct [Mass/volume] in Serum or Plasma 9.0 mg/dL <0.3 H [facility] Alkaline phosphatase [Enzymatic activity/volume] in Serum or Plasma 127 U/L 40-129 [facility] Aspartate aminotransferase [Enzymatic activity/volume] in Serum or Plasma 113 U/L <40 [facility] Alanine aminotransferase [Enzymatic activity/volume] in Seru m or Plasma 62 U/L <41 [facility] Protein [Mass/volume] in Serum or Plasma 6.9 g/dL 6.4-8.3 [facility] ID Date Data Source [id number] 05/06/2020 04:35:51 AM [facility] Value Range Interpretation Code Description Data Beronica rce(s) Supporting Document(s) Glucose [Mass/volume] in Capillary blood by Glucometer 77 mg/dL 70- 140 [facility] ID Date Data Source [id number] 05/05/2020 09:08:04 PM [facility] Value Range Interpretation Code Description Data Beronica rce(s) Supporting Document(s) Glucose [Mass/volume] in Capillary blood by Glucometer 140 mg/dL 70- 140 [facility] ID Date Data Source [id number] 05/05/2020 08:14:52 PM [facility] Value Range Interpretation Code Description Data Beronica rce(s) Supporting Document(s) Glucose [Mass/volume] in Capillary blood by Glucometer 103 mg/dL 70- 140 [facility] ID Date Data Source [id number] 05/05/2020 06:49:59 PM [facility] Name Value Range Interpretation Code Description Data Beronica rce(s) Supporting Document(s) Glucose [Mass/volume] in Capillary blood by Glucometer 108 mg/dL 70- 140 [facility] ID Date Data Source [id number] 05/05/2020 08:10:19 PM [facility] Cmnt XXX-Imp : NoneMicroorganism XXX Cult : 2019 nCoV Real-Time RT-PCR: NOT DETECTEDTest performed using [employer] Respiratory Panel. This test is only for use under Food and Drug Administration's Emergency Use Authorization.Additional information is available on the following FDA websites for health care providers and patients. https://www.fda.gov/media/762996/download , https://www.fda.gov/me tin/020235/downloadPolymerase chain reaction is NEGATIVE for Influenza A H1, H3 and 2009 H1 viruses, Influenza B virus, Respiratory syncytial virus, Human metapneumovirus, Parainfluenza virus 1,2,3 and 4, Adenovirus, Rhinovirus/ Enterovirus, Coronavirus HKU1, NL63, OC43 and 229E, Bordetella pertussis, B. parapertussis, Mycoplasma pneumoniae and Chlamydia pneumoniae. Name Value Range Interpretation Code Description Data Beronica rce(s) Supporting Document(s) ID Date Data Source [id number] 05/05/2020 06:19:00 PM [facility] Cmnt XXX-Imp : NoneMicroorganism XXX Cult : 2019 nCoV Real-Time RT-PCR: NOT DETECTEDTest performed using [employer] Respiratory Panel. This test is only for use under Food and Drug Administration's Emergency Use Authorization.Additional information is available on the following FDA websites for health care providers and patients. https://www.fda.gov/media/155271/download , https://www.fda.gov/me tin/784734/downloadPolymerase chain reaction is NEGATIVE for Influenza A H1, H3 and 2009 H1 viruses, Influenza B virus, Respiratory syncytial virus, Human metapneumovirus, Parainfluenza virus 1,2,3 and 4, Adenovirus, Rhinovirus/ Enterovirus, Coronavirus HKU1, NL63, OC43 and 229E, Bordetella pertussis, B. parapertussis, Mycoplasma pneumoniae and Chlamydia pneumoniae. Name Value Range Interpretation Code Description Data Beronica rce(s) Supporting Document(s) Microorganism identified in Unspecified specimen by [facility] This lab was ordered by [facility] and reported by [facility]. ID Date Data Source [id number] 05/05/2020 05:34:13 PM [facility] Value Range Interpretation Code Description Data Beronica rce(s) Supporting Document(s) Glucose [Mass/volume] in Capillary blood by Glucometer 85 mg/dL 70- 140 [facility] ID Date Data Source [id number] 05/05/2020 05:06:49 PM [facility] Value Range Interpretation Code Description Data Beronica rce(s) Supporting Document(s) Glucose [Mass/volume] in Capillary blood by Glucometer 69 mg/dL 70- 140 [facility] ID Date Data Source [id number] 05/05/2020 05:06:49 PM [facility] Value Range Interpretation Code Description Data Beronica rce(s) Supporting Document(s) Glucose [Mass/volume] in Capillary blood by Glucometer 61 mg/dL 70- 140 [facility] ID Date Data Source [id number] 05/05/2020 12:19:26 PM [facility] Value Range Interpretation Code Description Data Beronica rce(s) Supporting Document(s) Glucose [Mass/volume] in Capillary blood by Glucometer 72 mg/dL 70- 140 [facility] ID Date Data Source [id number] 05/05/2020 09:42:42 AM [facility] Value Range Interpretation Code Description Data Beronica rce(s) Supporting Document(s) Albumin [Mass/volume] in Serum or Plasma by Bromocresol green (BCG) dye binding method 2.6 g/dL 3.5-5.2 L [facility] Bilirubin.total [Mass/volume] in Serum or Plasma 13.2 mg/dL <1.2 H [facility] Calcium [Mass/volume] in Serum or Plasma 8.3 mg/dL 8.6-10.0 L [facility] Chloride [Moles/volume] in Serum or Plasma 95 mmol/L 98-107 L [facility] Creatinine [Mass/volume] in Serum or Plasma 0.40 mg/dL 0.70-1.20 [facility] Glucose [Mass/volume] in Serum or Plasma 125 mg/dL 70-140 [facility] Alkaline phosphatase [Enzymatic activity/volume] in Serum or Plasma 134 U/L 40-129 [facility] Potassium [Moles/volume] in Serum or Plasma 3.0 mmol/L 3.4-5.1 L [facility] Protein [Mass/volume] in Serum or Plasma 7.0 g/dL 6.4-8.3 [facility] Sodium [Moles/volume] in Serum or Plasma 129 mmol/L 136-145 [facility] Aspartate aminotransferase [Enzymatic activity/volume] in Serum or Plasma 108 U/L <40 H [facility] Urea nitrogen [Mass/volume] in Serum or Plasma 7 mg/dL 6-20 [facility] Osmolality of Serum or Plasma by calculation 268 mosm/kg 275-300 [facility] Creatinine/Urea nitrogen [Mass Ratio] in Serum or Plasma 18 [facility] Bicarbonate [Moles/volume] in Serum 24 mmol/L 22-29 [facility] Alanine aminotransferase [Enzymatic activity/volume] in Seru m or Plasma 59 U/L <41 [facility] Anion gap 3 in Serum or Plasma 10 mmol/L 8-15 [facility] Glomerular filtration rate/1.73 sq M pre dicted among non-blacks [Volume Rate/Area] in Serum or Plasma by Creatinine-based formula (MDRD) >6 0 [facility] Glomerular filtration rate/1.73 sq M pre dicted among blacks [Volume Rate/Area] in Serum or Plasma by Creatinine-based formula (MDRD) >60 [facility] ID Date Data Source [id number] 05/05/2020 09:42:42 AM [facility] Value Range Interpretation Code Description Data Beronica rce(s) Supporting Document(s) Magnesium [Mass/volume] in Serum or Plasma 1.5 mg/dL 1.6-2.6 [facility] ID Date Data Source [id number] 05/05/2020 09:42:42 AM [facility] Value Range Interpretation Code Description Data Beronica rce(s) Supporting Document(s) Phosphate [Mass/volume] in Serum or Plasma 3.0 mg/dL 2.5-4.5 [facility] ID Date Data Source [id number] 05/05/2020 08:38:21 AM [facility] Value Range Interpretation Code Description Data Beronica rce(s) Supporting Document(s) Glucose [Mass/volume] in Capillary blood by Glucometer 113 mg/dL 70- 140 [facility] ID Date Data Source [id number] 05/05/2020 06:22:21 AM [facility] Value Range Interpretation Code Description Data Beronica rce(s) Supporting Document(s) Glucose [Mass/volume] in Capillary blood by Glucometer 83 mg/dL [address] [place] [address] ID Date Data Source [id number] 05/05/2020 05:30:59 AM [facility] Value Range Interpretation Code Description Data Beronica rce(s) Supporting Document(s) Prothrombin time (PT) 22.8 s 12.5-14.9 H [facility] INR in Platelet poor plasma by Coagulation assay 1.97 [facility] Routine intensity oral anticoagulation I NR is typically 2.0-3.0. Target INR must be clinically individualized. ID Date Data Source [id number] 05/04/2020 11:32:14 PM [facility] Value Range Interpretation Code Description Data Beronica rce(s) Supporting Document(s) Glucose [Mass/volume] in Capillary blood by Glucometer 124 mg/dL - 140 [facility] ID Date Data Source [id number] 05/04/2020 10:09:05 PM [facility] Value Range Interpretation Code Description Data Beronica rce(s) Supporting Document(s) Glucose [Mass/volume] in Capillary blood by Glucometer 111 mg/dL [address] [place] [address] ID Date Data Source [id number] 05/04/2020 09:28:13 PM [facility] Value Range Interpretation Code Description Data Beronica rce(s) Supporting Document(s) Glucose [Mass/volume] in Capillary blood by Glucometer 103 mg/dL [address] [place] [address] ID Date Data Source [id number] 05/04/2020 09:12:18 PM [facility] Value Range Interpretation Code Description Data Beronica rce(s) Supporting Document(s) Glucose [Mass/volume] in Capillary blood by Glucometer 66 mg/dL 70- 140 [facility] ID Date Data Source [id number] 05/04/2020 09:12:13 PM [facility] Name Value Range Interpretation Code Description Data Beronica rce(s) Supporting Document(s) Glucose [Mass/volume] in Capillary blood by Glucometer 64 mg/dL 70- 140 L [facility] ID Date Data Source [id number] 05/04/2020 04:55:44 PM [facility] Value Range Interpretation Code Description Data Beronica rce(s) Supporting Document(s) Glucose [Mass/volume] in Capillary blood by Glucometer 95 mg/dL 70- 140 [facility] ID Date Data Source [id number] 05/04/2020 12:29:03 PM [facility] Value Range Interpretation Code Description Data Beronica rce(s) Supporting Document(s) Glucose [Mass/volume] in Capillary blood by Glucometer 95 mg/dL 70- 140 [facility] ID Date Data Source [id number] 05/04/2020 10:28:14 AM [facility] Value Range Interpretation Code Description Data Beronica rce(s) Supporting Document(s) Progress Note [facility] [id number]/GUSwmRILbc6BdDBrhTVc6JCppFGDxH9GmHVY9eU9gFCD7VVyAFaPoMkOrEIT7 lbm [file] AgICAgICAgICAgICAgICAgICAgICAgICAgICAgICAgICAgICAgICAgICAgICAgICAgICAgICAgICAgIC AgICAgICAgICAgICAgICAgICAgICAgDQogICAgICAgICAgICAgICAgICAgICAgICAgICAgICAgICAgIC AgICAgICAgICAgICAgICAgICAgICAgICAgICAgICAg ICAgICAgICAgICAgICAgICAgICAgICAgICAgICAgICAgDQogICAgICAgICAgICAgICAgICAgICAgICAg ICAgICAgICAgICAgICAgICAgICAgICAgICAgICAgICAgICAgICAgICAgICAgICAgICAgICAgICAgICAg ICAgICAgICAgICAgICAgDQogICAgICAgICAgICAgIC AgICAgICAgICAgICAgICAgICAgICAgICAgICAgICAgICAgICAgICAgICAgICAgICAgICAgICAgICAgIC AgICAgICAgICAgICAgICAgICAgICAgICAgDQogICAgICAgICAgICAgICAgICAgICAgICAgICAgICAgIC AgICAgICAgICAgICAgICAgICAgICAgICAgICAgICAg ICAgICAgICAgICAgICAgICAgICAgICAgICAgICAgICAgICAgDQogICAgICAgICAgICAgICAgICAgICAg ICAgICAgICAgICAgICAgICAgICAgICAgICAgICAgICAgICAgICAgICAgICAgICAgICAgICAgICAgICAg ICAgICAgICAgICAgICAgICAgDQogICAgICAgICAgIC AgICAgICAgICAgICAgICAgICAgICAgICAgICAgICAgICAgICAgICAgICAgICAgICAgICAgICAgICAgIC AgICAgICAgICAgICAgICAgICAgICAgICAgICAgDQogICAgICAgICAgICAgICAgICAgICAgICAgICAgIC AgICAgICAgICAgICAgICAgICAgICAgICAgICAgICAg ICAgICAgICAgICAgICAgICAgICAgICAgICAgICAgICAgICAgICAgDQogICAgICAgICAgICAgICAgICAg ICAgICAgICAgICAgICAgICAgICAgICAgICAgICAgICAgICAgICAgICAgICAgICAgICAgICAgICAgICAg ICAgICAgICAgICAgICAgICAgICAgDQogICAgICAgIC AgICAgICAgICAgICAgICAgICAgICAgICAgICAgICAgICAgICAgICAgICAgICAgICAgICAgICAgICAgIC GfKPHvMTThKSWmDDVxLDBuYFYpYWUyJSWuHSPaXVPgLFk6N8pxBYTrHFVpNI5zXNv4Cr1+DQoNCmVuZH A6kbGcsN8CDI9oe6EeNHezMNDvv5FwWTc4SD7RMPPw EYhpSE6DBZpcdv1TRGDnOHJhqTHCc7klIbRwOJK3YWLyAzayMO1COEMkQ1eewcIbNRHhPHGBHZ8TRxLu U5TupY46TTEDQt3+TMbdlpWmGqoRGmS8RFPtx0UxRNr0LB4KGICnNezqq9LbCxMiAXVAWDpiMW9QOUF1 OMVpSYVbUa5JZHZoL514xwVpHZ0RXb4WZkMyUI7yel 8HBpGhPPUyLdsRInf1RDewVI5ReZSkXTiAsg6zodEowjDUw3UjtlRtkKPAkpUbRSOrWSTqECtqMVXtBN ZbKC6pCX9fVYPtZYBySfT3JCXVPL4OMMTgHKSmrBGlXDNvCDIRPS6XHJohOSU4LCSryaIqaJBiEGwaSG 9QYXJlbnQgMTkgMCBSDQo+Bz1SMB6yg3NjVZwuBGSr HX2nfl3EOXdGHbFuY1G3lKHaG8B1URkeYz3YDLMtQVKqHIpzGXCTQKedRK4IDB4acaZ8JL7EdYVmVGIg OOWbcWOyXQu0P47xxBLzJVkiPA7YSCD+Caludia+Yi0CNKRvCDFeOCHpOgZrXLRFZqVtH9TdY4SNa4BuE2Hv KD53qSejigCjFNegIU4OLM0dTBFbAPOKOE0TdVUouV 0gieKlRWOgEGAUTwKtC11djFDfTHRhTKK2LVNfDp4NJCUdN5PrcsKcyHwuvqHqKMDiBNKFVV4UDLlphd TouJEjzAtuCZ14bEvyCD7EGd3MGdJaJL3xzw6KaIWxLi3VQJEsHt7XXAVqTKVqJRXiNFQ4LXPwRqWnBK ddUDSaRFMfGBT6BZUpCOBtXZ6VVbQfUMFmVWC3GJnt KVChPOGvqf1THSPkLXEtXDN4CsMcOJNhCZWhWQmaZRZbEVNlAZE5PBPjINSyKJ6AVyGeDOGxMTK4KlJh IKKxZHSwov2SFXIzHUSeERy0IUQgZDIoRPBvGXsdTLBcXUWmItC5CCYmRZJzIA2PLrHtAQZwAFL3CcOr VOJxNAMgts3XAHFuVKDrQnPlMHHuJKDpCAGuJDlmAO ByAHE7UMrxQPAdYRZoHF9QXkShQZUhXUYqKdLeAVXfUMBkng3QVQKbSMVtJJX3WQXzAXFqYHFcZPecXF VlMMV8TUO9WPHlPMUdIL8NJxVxWLGeAHPpWnZtBJPeMMNowm0LEUAqQMTzHiH4AGRvCUHcWBUeBRfiRI LnEFF5UIccHKZuAXWfPQ4ELpJeOLJrTJO8ZieyLNKd TPEesh3GGUTtOPDfRzIfIkJdBOSgTCHqTQybORBpTWQ0SCM6MWPqEJSsON5BRkNpLEOaNVx5XwYlPXBd MFTyzw5TMKNzJTGsHIn5UsYbADZnIOWtRCx0vtHdkZFyGKw2HP2TM0AsgiGkEsCREz3Zn207URKrQWIv Pa0ZW9lvKe0jIWYwTISLHw2UIUp7Q9K9HDObYIM4XF byUObxLWDwXUNuJLTkMpX7ORsyWGB+EUd9XmqtHCRaUdIuJtQcJIMdFXQaFgCkUEAcVFS4D2PxIf3eFP ANCj4+AJvktBDsdXhbAUPIZcH9LGZ9YOomTWUVKg9U ID Date Data Source [id number] 05/04/2020 08:02:58 AM [facility] Value Range Interpretation Code Description Data Beronica rce(s) Supporting Document(s) Glucose [Mass/volume] in Capillary blood by Glucometer 71 mg/dL 70- 140 [facility] ID Date Data Source [id number] 05/04/2020 08:02:58 AM [facility] Value Range Interpretation Code Description Data Beronica rce(s) Supporting Document(s) Glucose [Mass/volume] in Capillary blood by Glucometer 66 mg/dL 70- 140 L [facility] ID Date Data Source [id number] 05/04/2020 06:31:11 AM [facility] Value Range Interpretation Code Description Data Beronica rce(s) Supporting Document(s) Prothrombin time (PT) 23.3 s 12.5-14.9 H [facility] INR in Platelet poor plasma by Coagulation assay 2.03 [facility] Routine intensity oral anticoagulation I NR is typically 2.0-3.0. Target INR must be clinically individualized. ID Date Data Source [id number] 05/04/2020 06:46:06 AM [facility] Value Range Interpretation Code Description Data Beronica rce(s) Supporting Document(s) Bilirubin.direct [Mass/volume] in Serum or Plasma 9.0 mg/dL <0.3 H [facility] ID Date Data Source [id number] 05/04/2020 06:46:06 AM [facility] Value Range Interpretation Code Description Data Beronica rce(s) Supporting Document(s) Albumin [Mass/volume] in Serum or Plasma by Bromocresol green (BCG) dye binding method 2.3 g/dL 3.5-5.2 [facility] Bilirubin.total [Mass/volume] in Serum or Plasma 13.1 mg/dL <1.2 H [facility] Calcium [Mass/volume] in Serum or Plasma 8.3 mg/dL 8.6-10.0 L [facility] Chloride [Moles/volume] in Serum or Plasma 99 mmol/L 98-107 [facility] Creatinine [Mass/volume] in Serum or Plasma 0.36 mg/dL 0.70-1.20 L [facility] Glucose [Mass/volume] in Serum or Plasma 78 mg/dL 70-140 [facility] Alkaline phosphatase [Enzymatic activity/volume] in Serum or Plasma 132 U/L 40-129 [facility] Potassium [Moles/volume] in Serum or Plasma 3.3 mmol/L 3.4-5.1 L [facility] Protein [Mass/volume] in Serum or Plasma 6.6 g/dL 6.4-8.3 [facility] Sodium [Moles/volume] in Serum or Plasma 132 mmol/L 136-145 L [facility] Aspartate aminotransferase [Enzymatic activity/volume] in Serum or Plasma 106 U/L <40 H [facility] Urea nitrogen [Mass/volume] in Serum or Plasma 5 mg/dL 6-20 L [facility] Osmolality of Serum or Plasma by calculation 270 mosm/kg 275-300 L [facility] Creatinine/Urea nitrogen [Mass Ratio] in Serum or Plasma 14 [facility] Bicarbonate [Moles/volume] in Serum 24 mmol/L 22-29 [facility] Alanine aminotransferase [Enzymatic activity/volume] in Seru m or Plasma 52 U/L <41 H [facility] Anion gap 3 in Serum or Plasma 9 mmol/L 8-15 [facility] Glomerular filtration rate/1.73 sq M pre dicted among non-blacks [Volume Rate/Area] in Serum or Plasma by Creatinine-based formula (MDRD) >6 0 [facility] Glomerular filtration rate/1.73 sq M pre dicted among blacks [Volume Rate/Area] in Serum or Plasma by Creatinine-based formula (MDRD) >60 [facility] ID Date Data Source [id number] 05/03/2020 09:09:56 PM [facility] Value Range Interpretation Code Description Data Beronica rce(s) Supporting Document(s) Glucose [Mass/volume] in Capillary blood by Glucometer 138 mg/dL 70- 140 [facility] ID Date Data Source [id number] 05/03/2020 05:02:09 PM [facility] Name Value Range Interpretation Code Description Data Beronica rce(s) Supporting Document(s) Glucose [Mass/volume] in Capillary blood by Glucometer 121 mg/dL 70- 140 [facility] ID Date Data Source [id number] 05/03/2020 02:35:41 PM [facility] RENAL OR AORTA COMPLETE [id number] RE SULTInterpreted by:Peter B Zelinka, MDPROCEDURE INFORMATION: Exam: US Retroperitoneal; Complete; Kidneys and Bladder Exam date and time: 05/03/2020 12:57 PM Age: 49 years old Clinical indication: Alcohol dependence with withdrawal, uncomplicated; Alcoholic hepatitis without ascites; Screening exam; Other: Dysuria; Additional info: Dysuria , please evaluate for any bladder or renal pathology TECHNIQUE: Imaging protocol: Real- time ultrasound of the retroperitoneum with image documentation. Complete exam focused on the kidneys and bladder. COMPARISON: US ABDOMEN LIMITED [id number] PORTABLE 04/28/2020 12:59 PM FINDINGS: Liver: There is a diffuse increase in hepatic parenchymal density, consistent with fatty infiltration. Right kidney: Normal. No stones. No hydronephrosis. Left kidney: Normal. No stones. No hydronephrosis. Bladder: The bladder is normal. Bladder volume is 410 mL. Prostate: Prostate volume is 19.5 mL, normal. IMPRESSION: 1. There is no evidence of hydronephrosis. 2. Moderately distended bladder. 3. Fatty liver or nonspecific hepatocellular disease. THIS DOCUMENT HAS BEEN ELECTRONICALLY SIGNED BY DUDLEY PASTRANA MDThis document has been electronically signed by Dudley Pastrana MD on 05/03/2020 2:35 PM Name Value Range Interpretation Code Description Data Beronica rce(s) Supporting Document(s) ID Date Data Source [id number] 05/03/2020 12:25:08 PM [facility] Value Range Interpretation Code Description Data Beronica rce(s) Supporting Document(s) Glucose [Mass/volume] in Capillary blood by Glucometer 89 mg/dL 70- 140 [facility] ID Date Data Source [id number] 05/03/2020 10:26:00 AM [facility] Value Range Interpretation Code Description Data Beronica rce(s) Supporting Document(s) Glucose [Mass/volume] in Capillary blood by Glucometer 119 mg/dL 70- 140 [facility] ID Date Data Source [id number] 05/03/2020 08:57:45 AM [facility] Value Range Interpretation Code Description Data Beronica rce(s) Supporting Document(s) Glucose [Mass/volume] in Capillary blood by Glucometer 88 mg/dL 70- 140 [facility] ID Date Data Source [id number] 05/03/2020 08:23:52 AM [facility] Value Range Interpretation Code Description Data Beronica rce(s) Supporting Document(s) Glucose [Mass/volume] in Capillary blood by Glucometer 65 mg/dL 70- 140 [facility] ID Date Data Source [id number] 05/03/2020 04:40:11 AM [facility] Value Range Interpretation Code Description Data Beronica rce(s) Supporting Document(s) Prothrombin time (PT) 22.1 s 12.5-14.9 H [facility] INR in Platelet poor plasma by Coagulation assay 1.90 [facility] Routine intensity oral anticoagulation I NR is typically 2.0-3.0. Target INR must be clinically individualized. ID Date Data Source [id number] 05/03/2020 05:45:43 AM [facility] Value Range Interpretation Code Description Data Beronica rce(s) Supporting Document(s) Bilirubin.direct [Mass/volume] in Serum or Plasma 9.0 mg/dL <0.3 H [facility] ID Date Data Source [id number] 05/03/2020 05:45:43 AM [facility] Value Range Interpretation Code Description Data Beronica rce(s) Supporting Document(s) Albumin [Mass/volume] in Serum or Plasma by Bromocresol green (BCG) dye binding method 2.4 g/dL 3.5-5.2 [facility] Bilirubin.total [Mass/volume] in Serum or Plasma 14.3 mg/dL <1.2 H [facility] Calcium [Mass/volume] in Serum or Plasma 8.2 mg/dL 8.6-10.0 L [facility] Chloride [Moles/volume] in Serum or Plasma 98 mmol/L 98-107 [facility] Creatinine [Mass/volume] in Serum or Plasma 0.21 mg/dL 0.70-1.20 L [facility] Glucose [Mass/volume] in Serum or Plasma 79 mg/dL 70-140 [facility] Alkaline phosphatase [Enzymatic activity/volume] in Serum or Plasma 135 U/L 40-129 [facility] Potassium [Moles/volume] in Serum or Plasma 3.5 mmol/L 3.4-5.1 [facility] Protein [Mass/volume] in Serum or Plasma 7.5 g/dL 6.4-8.3 [facility] Sodium [Moles/volume] in Serum or Plasma 130 mmol/L 136-145 L [facility] Aspartate aminotransferase [Enzymatic activity/volume] in Serum or Plasma 113 U/L <40 [facility] Urea nitrogen [Mass/volume] in Serum or Plasma 5 mg/dL 6-20 L [facility] Osmolality of Serum or Plasma by calculation 266 mosm/kg 275-300 L [facility] Creatinine/Urea nitrogen [Mass Ratio] in Serum or Plasma 22 [facility] Bicarbonate [Moles/volume] in Serum 23 mmol/L 22-29 [facility] Alanine aminotransferase [Enzymatic activity/volume] in Seru m or Plasma 53 U/L <41 [facility] Anion gap 3 in Serum or Plasma 9 mmol/L 8-15 [facility] Glomerular filtration rate/1.73 sq M pre dicted among non-blacks [Volume Rate/Area] in Serum or Plasma by Creatinine-based formula (MDRD) >6 0 [facility] Glomerular filtration rate/1.73 sq M pre dicted among blacks [Volume Rate/Area] in Serum or Plasma by Creatinine-based formula (MDRD) >60 [facility] ID Date Data Source [id number] 05/03/2020 05:45:43 AM [facility] Name Value Range Interpretation Code Description Data Beronica rce(s) Supporting Document(s) Phosphate [Mass/volume] in Serum or Plasma 3.1 mg/dL 2.5-4.5 [facility] ID Date Data Source [id number] 05/02/2020 05:04:51 PM [facility] Name Value Range Interpretation Code Description Data Beronica rce(s) Supporting Document(s) Glucose [Mass/volume] in Capillary blood by Glucometer 133 mg/dL 70- 140 [facility] ID Date Data Source [id number] 05/02/2020 03:22:46 PM [facility] Name Value Range Interpretation Code Description Data Beronica rce(s) Supporting Document(s) Color of Urine [facility] Clarity of Urine [facility] Specific gravity of Urine by Refractometry automated 1.003 1.003 -1.030 [facility] pH of Urine by Automated test strip 7.0 5.0-8.0 [facility] Protein [Mass/volume] in Urine by Automated test strip Neg [facility] Glucose [Mass/volume] in Urine by Automated test strip Neg [facility] Ketones [Mass/volume] in Urine by Automated test strip Neg [facility] Bilirubin.total [Presence] in Urine by Automated test strip Negative [facility] False-positive results may occur with ce rtain food additives or medications. Hemoglobin [Presence] in Urine by Automated test strip Neg ative [facility] Leukocyte esterase [Presence] in Urine by Automated test strip Negative [facility] Nitrite [Presence] in Urine by Automated test strip Negati [facility] Leukocytes [#/area] in Urine sediment by Automated count 0 -5 [facility] Erythrocytes [#/area] in Urine sediment by Automated count 7 /HPF 0-3 H [facility] Service comment [facility] ID Date Data Source [id number] 05/02/2020 12:32:18 PM [facility] Value Range Interpretation Code Description Data Beronica rce(s) Supporting Document(s) Glucose [Mass/volume] in Capillary blood by Glucometer 116 mg/dL 70- 140 [facility] ID Date Data Source [id number] 05/02/2020 08:28:17 AM [facility] Value Range Interpretation Code Description Data Beronica rce(s) Supporting Document(s) Glucose [Mass/volume] in Capillary blood by Glucometer 77 mg/dL 70- 140 [facility] ID Date Data Source [id number] 05/02/2020 04:09:22 AM [facility] Value Range Interpretation Code Description Data Beronica rce(s) Supporting Document(s) Prothrombin time (PT) 24.2 s 12.5-14.9 H [facility] INR in Platelet poor plasma by Coagulation assay 2.13 [facility] Routine intensity oral anticoagulation I NR is typically 2.0-3.0. Target INR must be clinically individualized. ID Date Data Source [id number] 05/02/2020 04:18:36 AM [facility] Value Range Interpretation Code Description Data Beronica rce(s) Supporting Document(s) Bilirubin.direct [Mass/volume] in Serum or Plasma 8.3 mg/dL <0.3 H [facility] ID Date Data Source [id number] 05/02/2020 04:18:36 AM [facility] Value Range Interpretation Code Description Data Beronica rce(s) Supporting Document(s) Albumin [Mass/volume] in Serum or Plasma by Bromocresol green (BCG) dye binding method 2.2 g/dL 3.5-5.2 [facility] Bilirubin.total [Mass/volume] in Serum or Plasma 12.3 mg/dL <1.2 H [facility] Calcium [Mass/volume] in Serum or Plasma 6.2 mg/dL 8.6-10.0 L [facility] Chloride [Moles/volume] in Serum or Plasma 102 mmol/L 98-107 [facility] Creatinine [Mass/volume] in Serum or Plasma 0.44 mg/dL 0.70-1.20 [facility] Glucose [Mass/volume] in Serum or Plasma 83 mg/dL 70-140 [facility] Alkaline phosphatase [Enzymatic activity/volume] in Serum or Plasma 126 U/L 40-129 [facility] Potassium [Moles/volume] in Serum or Plasma 3.3 mmol/L 3.4-5.1 L [facility] Protein [Mass/volume] in Serum or Plasma 6.5 g/dL 6.4-8.3 [facility] Sodium [Moles/volume] in Serum or Plasma 135 mmol/L 136-145 L [facility] Aspartate aminotransferase [Enzymatic activity/volume] in Serum or Plasma 93 U/L <40 [facility] Urea nitrogen [Mass/volume] in Serum or Plasma 4 mg/dL 6-20 L [facility] Osmolality of Serum or Plasma by calculation 276 mosm/kg 275-300 [facility] Creatinine/Urea nitrogen [Mass Ratio] in Serum or Plasma 10 [facility] Bicarbonate [Moles/volume] in Serum 25 mmol/L 22-29 [facility] Alanine aminotransferase [Enzymatic activity/volume] in Seru m or Plasma 42 U/L <41 [facility] Anion gap 3 in Serum or Plasma 8 mmol/L 8-15 [facility] Glomerular filtration rate/1.73 sq M pre dicted among non-blacks [Volume Rate/Area] in Serum or Plasma by Creatinine-based formula (MDRD) >6 0 [facility] Glomerular filtration rate/1.73 sq M pre dicted among blacks [Volume Rate/Area] in Serum or Plasma by Creatinine-based formula (MDRD) >60 [facility] ID Date Data Source [id number] 05/02/2020 04:18:36 AM [facility] Value Range Interpretation Code Description Data Beronica rce(s) Supporting Document(s) Magnesium [Mass/volume] in Serum or Plasma 1.6 mg/dL 1.6-2.6 [facility] ID Date Data Source [id number] 05/02/2020 04:18:36 AM [facility] Value Range Interpretation Code Description Data Beronica rce(s) Supporting Document(s) Phosphate [Mass/volume] in Serum or Plasma 2.8 mg/dL 2.5-4.5 [facility] ID Date Data Source [id number] 05/01/2020 09:29:52 PM [facility] Value Range Interpretation Code Description Data Beronica rce(s) Supporting Document(s) Glucose [Mass/volume] in Capillary blood by Glucometer 151 mg/dL 70- 140 [facility] ID Date Data Source [id number] 05/01/2020 05:38:50 PM [facility] Value Range Interpretation Code Description Data Beronica rce(s) Supporting Document(s) Glucose [Mass/volume] in Capillary blood by Glucometer 112 mg/dL 70- 140 [facility] ID Date Data Source [id number] 05/01/2020 12:22:05 PM [facility] Value Range Interpretation Code Description Data Beronica rce(s) Supporting Document(s) Glucose [Mass/volume] in Capillary blood by Glucometer 96 mg/dL 70- 140 [facility] ID Date Data Source [id number] 05/01/2020 10:25:19 AM [facility] Value Range Interpretation Code Description Data Beronica rce(s) Supporting Document(s) Albumin [Mass/volume] in Serum or Plasma by Bromocresol green (BCG) dye binding method 2.5 g/dL 3.5-5.2 [facility] Bilirubin.total [Mass/volume] in Serum or Plasma 14.5 mg/dL <1.2 H [facility] Calcium [Mass/volume] in Serum or Plasma 8.4 mg/dL 8.6-10.0 L [facility] Chloride [Moles/volume] in Serum or Plasma 97 mmol/L 98-107 L [facility] Creatinine [Mass/volume] in Serum or Plasma 0.36 mg/dL 0.70-1.20 L [facility] Glucose [Mass/volume] in Serum or Plasma 105 mg/dL 70-140 [facility] Alkaline phosphatase [Enzymatic activity/volume] in Serum or Plasma 155 U/L 40-129 [facility] Potassium [Moles/volume] in Serum or Plasma 3.2 mmol/L 3.4-5.1 L [facility] Protein [Mass/volume] in Serum or Plasma 7.3 g/dL 6.4-8.3 [facility] Sodium [Moles/volume] in Serum or Plasma 130 mmol/L 136-145 L [facility] Aspartate aminotransferase [Enzymatic activity/volume] in Serum or Plasma 106 U/L <40 [facility] Urea nitrogen [Mass/volume] in Serum or Plasma 4 mg/dL 6-20 L [facility] Osmolality of Serum or Plasma by calculation 267 mosm/kg 275-300 L [facility] Creatinine/Urea nitrogen [Mass Ratio] in Serum or Plasma 12 [facility] Bicarbonate [Moles/volume] in Serum 24 mmol/L 22-29 [facility] Alanine aminotransferase [Enzymatic activity/volume] in Seru m or Plasma 46 U/L <41 [facility] Anion gap 3 in Serum or Plasma 9 mmol/L 8-15 [facility] Glomerular filtration rate/1.73 sq M pre dicted among non-blacks [Volume Rate/Area] in Serum or Plasma by Creatinine-based formula (MDRD) >6 0 [facility] Glomerular filtration rate/1.73 sq M pre dicted among blacks [Volume Rate/Area] in Serum or Plasma by Creatinine-based formula (MDRD) >60 [facility] ID Date Data Source [id number] 05/01/2020 08:22:07 AM [facility] Name Value Range Interpretation Code Description Data Beronica rce(s) Supporting Document(s) Glucose [Mass/volume] in Capillary blood by Glucometer 71 mg/dL 70- 140 [facility] ID Date Data Source [id number] 05/01/2020 05:33:32 AM [facility] Name Value Range Interpretation Code Description Data Beronica rce(s) Supporting Document(s) Prothrombin time (PT) 21.4 s 12.5-14.9 H [facility] INR in Platelet poor plasma by Coagulation assay 1.82 [facility] Routine intensity oral anticoagulation I NR is typically 2.0-3.0. Target INR must be clinically individualized. ID Date Data Source [id number] 05/01/2020 05:37:58 AM [facility] Value Range Interpretation Code Description Data Beronica rce(s) Supporting Document(s) Magnesium [Mass/volume] in Serum or Plasma 1.5 mg/dL 1.6-2.6 L [facility] ID Date Data Source [id number] 05/01/2020 05:37:58 AM [facility] Value Range Interpretation Code Description Data Beronica rce(s) Supporting Document(s) Phosphate [Mass/volume] in Serum or Plasma 2.6 mg/dL 2.5-4.5 [facility] ID Date Data Source [id number] 04/30/2020 09:11:55 PM [facility] Value Range Interpretation Code Description Data Beronica rce(s) Supporting Document(s) Glucose [Mass/volume] in Capillary blood by Glucometer 87 mg/dL 70- 140 [facility] ID Date Data Source [id number] 04/30/2020 05:04:15 PM [facility] Value Range Interpretation Code Description Data Beronica rce(s) Supporting Document(s) Glucose [Mass/volume] in Capillary blood by Glucometer 98 mg/dL 70- 140 [facility] ID Date Data Source [id number] 04/30/2020 04:20:06 PM [facility] Value Range Interpretation Code Description Data Beronica rce(s) Supporting Document(s) Magnesium [Mass/volume] in Serum or Plasma 1.6 mg/dL 1.6-2.6 [facility] ID Date Data Source [id number] 04/30/2020 04:08:24 PM [facility] Value Range Interpretation Code Description Data Beronica rce(s) Supporting Document(s) Calcium.ionized [Moles/volume] in Arterial blood 1.10 mmol/L 1.13-1.3 2 L [facility] ID Date Data Source [id number] 04/30/2020 12:28:31 PM [facility] Value Range Interpretation Code Description Data Beronica rce(s) Supporting Document(s) Glucose [Mass/volume] in Capillary blood by Glucometer 96 mg/dL 70- 140 [facility] ID Date Data Source [id number] 04/30/2020 12:31:36 PM EDT [facility] Name Value Range Interpretation Code Description Data Beronica rce(s) Supporting Document(s) Glucose [Mass/volume] in Capillary blood by Glucometer 88 mg/dL 70- 140 [facility] ID Date Data Source [id number] 04/30/2020 08:28:33 AM [facility] Name Value Range Interpretation Code Description Data Beronica rce(s) Supporting Document(s) Glucose [Mass/volume] in Capillary blood by Glucometer 90 mg/dL 70- 140 [facility] ID Date Data Source [id number] 04/30/2020 06:44:33 AM [facility] Name Value Range Interpretation Code Description Data Beronica rce(s) Supporting Document(s) Bicarbonate [Moles/volume] in Serum 24 mmol/L 22-29 [facility] Chloride [Moles/volume] in Serum or Plasma 101 mmol/L 98-107 [facility] Creatinine [Mass/volume] in Serum or Plasma 0.27 mg/dL 0.70-1.20 [facility] Glucose [Mass/volume] in Serum or Plasma 79 mg/dL 70-140 [facility] Potassium [Moles/volume] in Serum or Plasma 3.6 mmol/L 3.4-5.1 [facility] Sodium [Moles/volume] in Serum or Plasma 133 mmol/L 136-145 [facility] Urea nitrogen [Mass/volume] in Serum or Plasma 4 mg/dL 6-20 [facility] Anion gap 3 in Serum or Plasma 9 mmol/L 8-15 [facility] Osmolality of Serum or Plasma by calculation 272 mosm/kg 275-300 L [facility] Creatinine/Urea nitrogen [Mass Ratio] in Serum or Plasma 13 [facility] Calcium [Mass/volume] in Serum or Plasma 7.7 mg/dL 8.6-10.0 [facility] Glomerular filtration rate/1.73 sq M pre dicted among non-blacks [Volume Rate/Area] in Serum or Plasma by Creatinine-based formula (MDRD) >6 0 [facility] Glomerular filtration rate/1.73 sq M pre dicted among blacks [Volume Rate/Area] in Serum or Plasma by Creatinine-based formula (MDRD) >60 [facility] ID Date Data Source [id number] 04/30/2020 06:44:33 AM [facility] Value Range Interpretation Code Description Data Beronica rce(s) Supporting Document(s) Magnesium [Mass/volume] in Serum or Plasma 1.7 mg/dL 1.6-2.6 [facility] ID Date Data Source [id number] 04/30/2020 06:57:05 AM [facility] Value Range Interpretation Code Description Data Beronica rce(s) Supporting Document(s) Prothrombin time (PT) 23.2 s 12.5-14.9 H [facility] INR in Platelet poor plasma by Coagulation assay 2.02 [facility] Routine intensity oral anticoagulation I NR is typically 2.0-3.0. Target INR must be clinically individualized. ID Date Data Source [id number] 04/30/2020 07:24:53 AM [facility] Value Range Interpretation Code Description Data Beronica rce(s) Supporting Document(s) Albumin [Mass/volume] in Serum or Plasma by Bromocresol green (BCG) dye binding method 2.2 g/dL 3.5-5.2 [facility] Bilirubin.total [Mass/volume] in Serum or Plasma 13.0 mg/dL <1.2 H [facility] Bilirubin.direct [Mass/volume] in Serum or Plasma 8.6 mg/dL <0.3 [facility] Alkaline phosphatase [Enzymatic activity/volume] in Serum or Plasma 143 U/L 40-129 [facility] Aspartate aminotransferase [Enzymatic activity/volume] in Serum or Plasma 108 U/L <40 [facility] Alanine aminotransferase [Enzymatic activity/volume] in Seru m or Plasma 39 U/L <41 [facility] Protein [Mass/volume] in Serum or Plasma 6.5 g/dL 6.4-8.3 [facility] ID Date Data Source [id number] 04/30/2020 07:24:53 AM [facility] Value Range Interpretation Code Description Data Beronica rce(s) Supporting Document(s) Phosphate [Mass/volume] in Serum or Plasma 2.4 mg/dL 2.5-4.5 L [facility] ID Date Data Source [id number] 04/29/2020 06:20:20 PM [facility] Value Range Interpretation Code Description Data Beronica rce(s) Supporting Document(s) Bicarbonate [Moles/volume] in Serum 22 mmol/L 22-29 [facility] Chloride [Moles/volume] in Serum or Plasma 100 mmol/L 98-107 [facility] Creatinine [Mass/volume] in Serum or Plasma 0.31 mg/dL 0.70-1.20 L [facility] Glucose [Mass/volume] in Serum or Plasma 175 mg/dL 70-140 [facility] Potassium [Moles/volume] in Serum or Plasma 3.9 mmol/L 3.4-5.1 [facility] Sodium [Moles/volume] in Serum or Plasma 130 mmol/L 136-145 L [facility] Urea nitrogen [Mass/volume] in Serum or Plasma 3 mg/dL 6-20 L [facility] Anion gap 3 in Serum or Plasma 9 mmol/L 8-15 [facility] Osmolality of Serum or Plasma by calculation 271 mosm/kg 275-300 [facility] Creatinine/Urea nitrogen [Mass Ratio] in Serum or Plasma 10 [facility] Calcium [Mass/volume] in Serum or Plasma 7.9 mg/dL 8.6-10.0 L [facility] Glomerular filtration rate/1.73 sq M pre dicted among non-blacks [Volume Rate/Area] in Serum or Plasma by Creatinine-based formula (MDRD) >6 0 [facility] Glomerular filtration rate/1.73 sq M pre dicted among blacks [Volume Rate/Area] in Serum or Plasma by Creatinine-based formula (MDRD) >60 [facility] ID Date Data Source [id number] 04/29/2020 06:20:[address] [facility] Value Range Interpretation Code Description Data Beronica rce(s) Supporting Document(s) Magnesium [Mass/volume] in Serum or Plasma 1.8 mg/dL 1.6-2.6 [facility] ID Date Data Source [id number] 04/29/2020 05:02:[address] [facility] Value Range Interpretation Code Description Data Beronica rce(s) Supporting Document(s) Glucose [Mass/volume] in Capillary blood by Glucometer 128 mg/dL 70- 140 [facility] ID Date Data Source [id number] 04/29/2020 04:25:[address] 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 [file] [id number] ID Date Data Source [id number] [facility] Interpretation Code Description Data Beronica rce(s) Supporting Document(s) Glucose [Mass/volume] in Capillary blood by Glucometer 85 mg/dL 70- 140 [facility] ID Date Data Source [id number] 04/29/2020 08:28:10 AM [facility] Name Value Range Interpretation Code Description Data Beronica rce(s) Supporting Document(s) Glucose [Mass/volume] in Capillary blood by Glucometer 71 mg/dL 70- 140 [facility] ID Date Data Source [id number] 04/29/2020 06:52:27 AM [facility] Value Range Interpretation Code Description Data Beronica rce(s) Supporting Document(s) Albumin [Mass/volume] in Serum or Plasma by Bromocresol green (BCG) dye binding method 2.1 g/dL 3.5-5.2 [facility] Bilirubin.total [Mass/volume] in Serum or Plasma 12.9 mg/dL <1.2 H [facility] Calcium [Mass/volume] in Serum or Plasma 7.6 mg/dL 8.6-10.0 L [facility] Chloride [Moles/volume] in Serum or Plasma 105 mmol/L 98-107 [facility] Creatinine [Mass/volume] in Serum or Plasma 0.34 mg/dL 0.70-1.20 L [facility] Glucose [Mass/volume] in Serum or Plasma 77 mg/dL 70-140 [facility] Alkaline phosphatase [Enzymatic activity/volume] in Serum or Plasma 147 U/L 40-129 [facility] Potassium [Moles/volume] in Serum or Plasma 3.4 mmol/L 3.4-5.1 [facility] Protein [Mass/volume] in Serum or Plasma 6.4 g/dL 6.4-8.3 [facility] Sodium [Moles/volume] in Serum or Plasma 135 mmol/L 136-145 L [facility] Aspartate aminotransferase [Enzymatic activity/volume] in Serum or Plasma 122 U/L <40 H [facility] Urea nitrogen [Mass/volume] in Serum or Plasma 3 mg/dL 6-20 L [facility] Osmolality of Serum or Plasma by calculation 275 mosm/kg 275-300 [facility] Creatinine/Urea nitrogen [Mass Ratio] in Serum or Plasma 8 [facility] Bicarbonate [Moles/volume] in Serum 23 mmol/L 22-29 [facility] Alanine aminotransferase [Enzymatic activity/volume] in Seru m or Plasma 42 U/L <41 [facility] Anion gap 3 in Serum or Plasma 7 mmol/L 8-15 L [facility] Glomerular filtration rate/1.73 sq M pre dicted among non-blacks [Volume Rate/Area] in Serum or Plasma by Creatinine-based formula (MDRD) >6 0 [facility] Glomerular filtration rate/1.73 sq M pre dicted among blacks [Volume Rate/Area] in Serum or Plasma by Creatinine-based formula (MDRD) >60 [facility] ID Date Data Source [id number] 04/29/2020 07:23:40 AM EDT [facility] Name Value Range Interpretation Code Description Data Beroncia rce(s) Supporting Document(s) Leukocytes [#/volume] in Blood by Automated count 4.7 10*3/uL 4-10 [facility] Erythrocytes [#/volume] in Blood by Automated count 2.79 10*6/uL 4.6- 6.1 [facility] Hemoglobin [Mass/volume] in Blood 10.1 g/dL 13.5-18 L [facility] Hematocrit [Volume Fraction] of Blood by Automated count 29.4 % 4 1-53 L [facility] Erythrocyte mean corpuscular volume [Entitic volume] b y Automated count 105.1 fL 80-96 H [facility] Erythrocyte mean corpuscular hemoglobin [Entitic mass] by Automated count 36.2 pg 27-33 H [facility] Erythrocyte mean corpuscular hemoglobin concentration [Mass/volume] by Automated count 34.5 g/dL 32.0-36.0 [facility] Erythrocyte distribution width [Ratio] by Automated count 16.0 % 11.5-14.5 H [facility] Platelets [#/volume] in Blood by Automated count 73 10*3/uL 150-400 [facility] Differential cell count method - Blood [facility] Neutrophils/100 leukocytes in Blood by Automated count 71 % [facility] Lymphocytes/100 leukocytes in Blood by Automated count 21 % [facility] Monocytes/100 leukocytes in Blood by Automated count 5 % [facility] Eosinophils/100 leukocytes in Blood by Automated count 1 % [facility] Neutrophils [#/volume] in Blood by Automated count 3.55 10*3/uL 1.8-7 .0 [facility] Lymphocytes [#/volume] in Blood by Automated count 1.05 10*3/uL 1.2-4 .0 L [facility] Monocytes [#/volume] in Blood by Automated count 0.25 10*3/uL 0-0.8 [facility] Eosinophils [#/volume] in Blood by Automated count 0.05 10*3/uL 0-0.5 [facility] Nucleated erythrocytes/100 leukocytes [Ratio] in Blood by Automated count 1 /100{WBCs} 0-0 H [facility] Variant lymphocytes/100 leukocytes in Blood by Manual count 1 % [facility] Myelocytes/100 leukocytes in Blood by Manual count 1 % [facility] Lymphocytes [#/volume] in Blood 0.05 10*3/uL 0 H [facility] Myelocytes [#/volume] in Blood by Manual count 0.05 10*3/uL 0-0 H [facility] Macrocytes [Presence] in Blood by Light microscopy [facility] Anisocytosis [Presence] in Blood by Light microscopy [facility] Target cells [Presence] in Blood by Light microscopy [facility] ID Date Data Source [id number] 04/29/2020 04:49:39 AM [facility] Value Range Interpretation Code Description Data Beronica rce(s) Supporting Document(s) Prothrombin time (PT) 23.1 s 12.5-14.9 H [facility] INR in Platelet poor plasma by Coagulation assay 2.00 [facility] Routine intensity oral anticoagulation I NR is typically 2.0-3.0. Target INR must be clinically individualized. ID Date Data Source [id number] 04/28/2020 11:00:55 PM [facility] Value Range Interpretation Code Description Data Beronica rce(s) Supporting Document(s) Bicarbonate [Moles/volume] in Serum 21 mmol/L 22-29 L [facility] Chloride [Moles/volume] in Serum or Plasma 106 mmol/L 98-107 [facility] Creatinine [Mass/volume] in Serum or Plasma 0.31 mg/dL 0.70-1.20 L [facility] Icteric Glucose [Mass/volume] in Serum or Plasma 102 mg/dL 70-140 [facility] Potassium [Moles/volume] in Serum or Plasma 3.9 mmol/L 3.4-5.1 [facility] Sodium [Moles/volume] in Serum or Plasma 136 mmol/L 136-145 [facility] Urea nitrogen [Mass/volume] in Serum or Plasma 2 mg/dL 6-20 [facility] Anion gap 3 in Serum or Plasma 9 mmol/L 8-15 [facility] Osmolality of Serum or Plasma by calculation 279 mosm/kg 275-300 [facility] Creatinine/Urea nitrogen [Mass Ratio] in Serum or Plasma 8 [facility] Calcium [Mass/volume] in Serum or Plasma 7.3 mg/dL 8.6-10.0 [facility] Glomerular filtration rate/1.73 sq M pre dicted among non-blacks [Volume Rate/Area] in Serum or Plasma by Creatinine-based formula (MDRD) >6 0 [facility] Glomerular filtration rate/1.73 sq M pre dicted among blacks [Volume Rate/Area] in Serum or Plasma by Creatinine-based formula (MDRD) >60 [facility] ID Date Data Source [id number] 04/28/2020 11:00:55 PM [facility] Value Range Interpretation Code Description Data Beronica rce(s) Supporting Document(s) Magnesium [Mass/volume] in Serum or Plasma 1.7 mg/dL 1.6-2.6 [facility] ID Date Data Source [id number] 04/28/2020 08:58:54 PM [facility] Value Range Interpretation Code Description Data Beronica rce(s) Supporting Document(s) Glucose [Mass/volume] in Capillary blood by Glucometer 123 mg/dL 70- 140 [facility] ID Date Data Source [id number] 04/28/2020 05:22:49 PM [facility] Value Range Interpretation Code Description Data Beronica rce(s) Supporting Document(s) Glucose [Mass/volume] in Capillary blood by Glucometer 135 mg/dL 70- 140 [facility] ID Date Data Source [id number] 04/28/2020 01:56:51 PM [facility] US ABDOMEN LIMITED [id number] RESULTInte rpreted by:JAYSON ThorpeLINICAL HISTORY:49-year-old male with jaundice, abdominal distention and possible ascites, who presents for initial sonographic evaluation.TECHNIQUE:Multiple real-time sonographic images of all 4 quadrants of the abdomen were obtained.COMPARISON:There are no prior studies available for comparison. FINDINGS:There is a trace amount of ascites within the right upper quadrant and the right lower quadrant.There is no evidence of free fluid within the remaining imaged aspects of the abdomen. IMPRESSION:There is a trace amount of ascites within the upper and lower aspects of the right abdomen. This document has been electronically signed by Kevin Walker MD on 04/28/2020 1:54 PM Name Value Range Interpretation Code Description Data Beronica rce(s) Supporting Document(s) ID Date Data Source [id number] 04/28/2020 12:39:33 PM [facility] Value Range Interpretation Code Description Data Beronica rce(s) Supporting Document(s) Glucose [Mass/volume] in Capillary blood by Glucometer 113 mg/dL 70- 140 [facility] ID Date Data Source [id number] 04/28/2020 08:37:14 AM [facility] Value Range Interpretation Code Description Data Beronica rce(s) Supporting Document(s) Glucose [Mass/volume] in Capillary blood by Glucometer 95 mg/dL 70- 140 [facility] ID Date Data Source [id number] 04/28/2020 08:59:42 AM [facility] Value Range Interpretation Code Description Data Beronica rce(s) Supporting Document(s) Albumin [Mass/volume] in Serum or Plasma by Bromocresol green (BCG) dye binding method 2.3 g/dL 3.5-5.2 L [facility] Bilirubin.total [Mass/volume] in Serum or Plasma 14.5 mg/dL <1.2 H [facility] Bilirubin.direct [Mass/volume] in Serum or Plasma 10.0 mg/dL <0.3 H [facility] Alkaline phosphatase [Enzymatic activity/volume] in Serum or Plasma 155 U/L 40-129 H [facility] Aspartate aminotransferase [Enzymatic activity/volume] in Serum or Plasma 177 U/L <40 H [facility] Alanine aminotransferase [Enzymatic activity/volume] in Seru m or Plasma 49 U/L <41 H [facility] Protein [Mass/volume] in Serum or Plasma 6.6 g/dL 6.4-8.3 [facility] ID Date Data Source [id number] 04/28/2020 08:59:43 AM [facility] Name Value Range Interpretation Code Description Data Beronica rce(s) Supporting Document(s) Magnesium [Mass/volume] in Serum or Plasma 1.8 mg/dL 1.6-2.6 [facility] ID Date Data Source [id number] 04/28/2020 08:59:43 AM [facility] Name Value Range Interpretation Code Description Data Beronica rce(s) Supporting Document(s) Bicarbonate [Moles/volume] in Serum 23 mmol/L 22-29 [facility] Chloride [Moles/volume] in Serum or Plasma 101 mmol/L 98-107 [facility] Creatinine [Mass/volume] in Serum or Plasma 0.24 mg/dL 0.70-1.20 L [facility] Icteric Glucose [Mass/volume] in Serum or Plasma 105 mg/dL 70-140 [facility] Potassium [Moles/volume] in Serum or Plasma 3.3 mmol/L 3.4-5.1 L [facility] Sodium [Moles/volume] in Serum or Plasma 134 mmol/L 136-145 L [facility] Urea nitrogen [Mass/volume] in Serum or Plasma 2 mg/dL 6-20 L [facility] Anion gap 3 in Serum or Plasma 9 mmol/L 8-15 [facility] Osmolality of Serum or Plasma by calculation 275 mosm/kg 275-300 [facility] Creatinine/Urea nitrogen [Mass Ratio] in Serum or Plasma 8 [facility] Calcium [Mass/volume] in Serum or Plasma 7.5 mg/dL 8.6-10.0 L [facility] Glomerular filtration rate/1.73 sq M pre dicted among non-blacks [Volume Rate/Area] in Serum or Plasma by Creatinine-based formula (MDRD) >6 0 [facility] Glomerular filtration rate/1.73 sq M pre dicted among blacks [Volume Rate/Area] in Serum or Plasma by Creatinine-based formula (MDRD) >60 [facility] ID Date Data Source [id number] 04/28/2020 09:29:46 AM EDT [facility] Name Value Range Interpretation Code Description Data Beronica rce(s) Supporting Document(s) Leukocytes [#/volume] in Blood by Automated count 5.6 10*3/uL 4-10 [facility] Erythrocytes [#/volume] in Blood by Automated count 2.85 10*6/uL 4.6- 6.1 L [facility] Hemoglobin [Mass/volume] in Blood 10.4 g/dL 13.5-18 L [facility] Hematocrit [Volume Fraction] of Blood by Automated count 30.1 % 4 1-53 L [facility] Erythrocyte mean corpuscular volume [Entitic volume] b y Automated count 105.4 fL 80-96 H [facility] Erythrocyte mean corpuscular hemoglobin [Entitic mass] by Automated count 36.4 pg 27-33 H [facility] Erythrocyte mean corpuscular hemoglobin concentration [Mass/volume] by Automated count 34.5 g/dL 32.0-36.0 [facility] Erythrocyte distribution width [Ratio] by Automated count 16.4 % 11.5-14.5 H [facility] Platelets [#/volume] in Blood by Automated count 67 10*3/uL 150-400 L [facility] Differential cell count method - Blood [facility] Neutrophils/100 leukocytes in Blood by Automated count 79 % [facility] Lymphocytes/100 leukocytes in Blood by Automated count 12 % [facility] Monocytes/100 leukocytes in Blood by Automated count 6 % [facility] Basophils/100 leukocytes in Blood by Automated count 1 % [facility] Neutrophils [#/volume] in Blood by Automated count 4.50 10*3/uL 1.8-7 .0 [facility] Lymphocytes [#/volume] in Blood by Automated count 0.68 10*3/uL 1.2-4 .0 L [facility] Monocytes [#/volume] in Blood by Automated count 0.34 10*3/uL 0-0.8 [facility] Basophils [#/volume] in Blood by Automated count 0.06 10*3/uL 0-0.2 [facility] Variant lymphocytes/100 leukocytes in Blood by Manual count 2 % [facility] Lymphocytes [#/volume] in Blood 0.11 10*3/uL 0 H [facility] Macrocytes [Presence] in Blood by Light microscopy [facility] Anisocytosis [Presence] in Blood by Light microscopy [facility] Polychromasia [Presence] in Blood by Light microscopy [facility] Rouleaux [Presence] in Blood by Light [facility] Target cells [Presence] in Blood by [facility] ID Date Data Source [id number] 04/28/2020 07:49:33 AM [facility] Name Value Range Interpretation Code Description Data Beronica rce(s) Supporting Document(s) Glucose [Mass/volume] in Capillary blood by Glucometer 121 mg/dL 70- 140 [facility] ID Date Data Source [id number] 04/28/2020 05:53:37 AM [facility] Value Range Interpretation Code Description Data Beronica rce(s) Supporting Document(s) Prothrombin time (PT) 26.9 s 12.5-14.9 H [facility] INR in Platelet poor plasma by Coagulation assay 2.43 [facility] Routine intensity oral anticoagulation I NR is typically 2.0-3.0. Target INR must be clinically individualized. ID Date Data Source [id number] 04/27/2020 09:17:05 PM [facility] Value Range Interpretation Code Description Data Beronica rce(s) Supporting Document(s) Glucose [Mass/volume] in Capillary blood by Glucometer 170 mg/dL 70- 140 H [facility] ID Date Data Source [id number] 04/27/2020 07:01:20 PM [facility] Value Range Interpretation Code Description Data Beronica rce(s) Supporting Document(s) Albumin [Mass/volume] in Serum or Plasma by Bromocresol green (BCG) dye binding method 2.4 g/dL 3.5-5.2 L [facility] Bilirubin.total [Mass/volume] in Serum or Plasma 15.8 mg/dL <1.2 H [facility] Bilirubin.direct [Mass/volume] in Serum or Plasma 11.8 mg/dL <0.3 H [facility] Confirmed Alkaline phosphatase [Enzymatic activity/volume] in Serum or Plasma 170 U/L 40-129 H [facility] Aspartate aminotransferase [Enzymatic activity/volume] in Serum or Plasma 231 U/L <40 H [facility] Alanine aminotransferase [Enzymatic activity/volume] in Seru m or Plasma 57 U/L <41 H [facility] Protein [Mass/volume] in Serum or Plasma 7.1 g/dL 6.4-8.3 [facility] ID Date Data Source [id number] 04/27/2020 07:01:20 PM [facility] Name Value Range Interpretation Code Description Data Beronica rce(s) Supporting Document(s) Bicarbonate [Moles/volume] in Serum 20 mmol/L 22-29 L [facility] Chloride [Moles/volume] in Serum or Plasma 95 mmol/L 98-107 L [facility] Creatinine [Mass/volume] in Serum or Plasma 0.70-1.20 L [facility] IctericConfirmed Glucose [Mass/volume] in Serum or Plasma 271 mg/dL 70-140 H [facility] Potassium [Moles/volume] in Serum or Plasma 3.8 mmol/L 3.4-5.1 [facility] Sodium [Moles/volume] in Serum or Plasma 126 mmol/L 136-145 L [facility] Urea nitrogen [Mass/volume] in Serum or Plasma 6-20 L [facility] Confirmed Anion gap 3 in Serum or Plasma 11 mmol/L 8-15 [facility] Osmolality of Serum or Plasma by calculation 275-300 [facility] Creatinine/Urea nitrogen [Mass Ratio] in Serum or Plasma [facility] Calcium [Mass/volume] in Serum or Plasma 7.6 mg/dL 8.6-10.0 L [facility] Glomerular filtration rate/1.73 sq M pre dicted among non-blacks [Volume Rate/Area] in Serum or Plasma by Creatinine-based formula (MDRD) >6 0 [facility] Glomerular filtration rate/1.73 sq M pre dicted among blacks [Volume Rate/Area] in Serum or Plasma by Creatinine-based formula (MDRD) >60 [facility] ID Date Data Source [id number] 04/27/2020 07:01:20 PM [facility] Name Value Range Interpretation Code Description Data Beronica rce(s) Supporting Document(s) Thyrotropin [Units/volume] in Serum or Plasma 1.840 u[IU]/mL 0.270-4. 200 [facility] ID Date Data Source [id number] 04/27/2020 07:01:20 PM [facility] Name Value Range Interpretation Code Description Data Beronica rce(s) Supporting Document(s) Magnesium [Mass/volume] in Serum or Plasma 2.1 mg/dL 1.6-2.6 [facility] ID Date Data Source [id number] 04/27/2020 07:27:14 PM EDT [facility] Name Value Range Interpretation Code Description Data Beronica rce(s) Supporting Document(s) Leukocytes [#/volume] in Blood by Automated count 3.1 10*3/uL 4-10 L [facility] Erythrocytes [#/volume] in Blood by Automated count 3.03 10*6/uL 4.6- 6.1 L [facility] Hemoglobin [Mass/volume] in Blood 10.9 g/dL 13.5-18 L [facility] Hematocrit [Volume Fraction] of Blood by Automated count 31.8 % 4 1-53 L [facility] Erythrocyte mean corpuscular volume [Entitic volume] b y Automated count 105.0 fL 80-96 H [facility] Erythrocyte mean corpuscular hemoglobin [Entitic mass] by Automated count 36.0 pg 27-33 H [facility] Erythrocyte mean corpuscular hemoglobin concentration [Mass/volume] by Automated count 34.3 g/dL 32.0-36.0 [facility] Erythrocyte distribution width [Ratio] by Automated count 16.2 % 11.5-14.5 H [facility] Platelets [#/volume] in Blood by Automated count 56 10*3/uL 150-400 L [facility] Differential cell count method - Blood [facility] Neutrophils/100 leukocytes in Blood by Automated count 90 % [facility] Lymphocytes/100 leukocytes in Blood by Automated count 8 % [facility] Monocytes/100 leukocytes in Blood by Automated count 1 % [facility] Neutrophils [#/volume] in Blood by Automated count 2.79 10*3/uL 1.8-7 .0 [facility] Lymphocytes [#/volume] in Blood by Automated count 0.25 10*3/uL 1.2-4 .0 L [facility] Monocytes [#/volume] in Blood by Automated count 0.03 10*3/uL 0-0.8 [facility] Band form neutrophils/100 leukocytes in Blood by Manual count 1 % [facility] Band form neutrophils [#/volume] in Blood by Manual count 0.03 10*3 /uL 0-0.6 [facility] Macrocytes [Presence] in Blood by Light microscopy [facility] Anisocytosis [Presence] in Blood by Light microscopy [facility] Target cells [Presence] in Blood by Light microscopy [facility] ID Date Data Source [id number] 04/27/2020 06:28:[address] [facility] Value Range Interpretation Code Description Data Beronica rce(s) Supporting Document(s) Ammonia [Moles/volume] in Plasma 16-60 L [facility] ID Date Data Source [id number] 04/27/2020 04:55:[address] [facility] Value Range Interpretation Code Description Data Beronica rce(s) Supporting Document(s) Glucose [Mass/volume] in Capillary blood by Glucometer 140 mg/dL 70- 140 [facility] ID Date Data Source [id number] [facility] Code Description Data Beronica rce(s) Supporting Document(s) Glucose [Mass/volume] in Capillary blood by Glucometer 110 mg/dL 70- 140 [facility] ID Date Data Source [id number] 04/27/2020 10:07:[address] 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/JR8ohHbfoSY0BY9jw9rCjrwZ3RNRUwJf25noP2XYMuLhgmWCEh4IvH9LHpPAYHHI3TdoUTcibagFL [file] ICAgICAgICAgICAgICAgICAgICAgICAgICAgICAgIC AgICAgICAgICAgICAgICAgICAgICANCiAgICAgICAgICAgICAgICAgICAgICAgICAgICAgICAgICAgIC AgICAgICAgICAgICAgICAgICAgICAgICAgICAgICAgICAgICAgICAgICAgICAgICAgICAgICAgICAgIC AgICANCiAgICAgICAgICAgICAgICAgICAgICAgICAg ICAgICAgICAgICAgICAgICAgICAgICAgICAgICAgICAgICAgICAgICAgICAgICAgICAgICAgICAgICAg ICAgICAgICAgICAgICANCiAgICAgICAgICAgICAgICAgICAgICAgICAgICAgICAgICAgICAgICAgICAg ICAgICAgICAgICAgICAgICAgICAgICAgICAgICAgIC AgICAgICAgICAgICAgICAgICAgICAgICANCiAgICAgICAgICAgICAgICAgICAgICAgICAgICAgICAgIC AgICAgICAgICAgICAgICAgICAgICAgICAgICAgICAgICAgICAgICAgICAgICAgICAgICAgICAgICAgIC AgICAgICANCiAgICAgICAgICAgICAgICAgICAgICAg ICAgICAgICAgICAgICAgICAgICAgICAgICAgICAgICAgICAgICAgICAgICAgICAgICAgICAgICAgICAg ICAgICAgICAgICAgICAgICANCiAgICAgICAgICAgICAgICAgICAgICAgICAgICAgICAgICAgICAgICAg ICAgICAgICAgICAgICAgICAgICAgICAgICAgICAgIC AgICAgICAgICAgICAgICAgICAgICAgICAgICANCiAgICAgICAgICAgICAgICAgICAgICAgICAgICAgIC AgICAgICAgICAgICAgICAgICAgICAgICAgICAgICAgICAgICAgICAgICAgICAgICAgICAgICAgICAgIC AgICAgICAgICANCiAgICAgICAgICAgICAgICAgICAg ICAgICAgICAgICAgICAgICAgICAgICAgICAgICAgICAgICAgICAgICAgICAgICAgICAgICAgICAgICAg ICAgICAgICAgICAgICAgICAgICANCiAgICAgICAgICAgICAgICAgICAgICAgICAgICAgICAgICAgICAg ICAgICAgICAgICAgICAgICAgICAgICAgICAgICAgIC AgICAgICAgICAgICAgICAgICAgICAgICAgICAgICANCjw/mCLtV1ravVGqjkC3Y5sqWw5WHr7OTP6ih4 RcIFUnCWtifiKgAuoKFiMtHCUbCejGLte9UZuhVQ9NnYHjJ8MgN2EhWVquTV6QMTYyPOEmlXSuJCGfTC OuEgO3MNRgCTadRX1WlPAdRNcgKUNnMBApEbNlTDIm VGNwMZSoYGNjATQBFWYoTAYmYzJeCNieWD3Bo3YxvTJ7NLh+Pd8IWU4co5AtXDdyGzLqFU5rpg0MLNyG ViIoW5FeakX4IIQ1XIFkDs9GQLXlRCLesLMxJDOxYCBSNeZhX3QehV39ELCVUz9+DQplbmRvYmoNCjI4 PJChs6VxTAr1LR9KURHbNOu7wTWjK25io1AxmSCaYs wuWEb0FAqqMMIej6DnMIwbWGCbXUXyUM99WwOgNfYaWPI3BrTuPK6bJQmqNK6VFSV7MLdaNHDfUMGpU2 hTXiFjDLHfNkHdqQulFJ1VQmWqZ2NadrHubQUnEvTlJXQTMe1+BXqjjfSuSxzWSyT6WVMug6LdQBu2IR 6CKMEwWTwoTY2AXDIjhU0cDXufVX4RQwBtMSMjCMZF WjBjB96eeGQqRVc1J7NdLyKhOJKpActaVZRnQSosUqQbDPPvExDoQUyaKH8+ID4+GCdbVF0EWJunslUd XKBdNx5SMJTsZPPjVJ2mKHXbDJGoG4A2nYsdHEPVTpOqZ1cynhfhMT9vNITgA156qQjqfnVaHSN6IMHz Bs5GVELqXWW9OVPotIFiAzWzPBDOSWinRK5GcKDaEB U9qJ2xHYqjZQWfYSCnV7hCAwTjnTbsSW50mNartuEvsMTsISc+Tx2AEW8sn5QjFBz8biSrVRzxKVLwJQ cpNLWnOBQtODNzZWU2AKR6CXAMFkKiMDPkIBUmCBuaUBTtCROvzb0NGHNxXMMdIjT0ZSJdSWOgNUVbAZ drBWDgNPEiBIF8UUMfRHKjLW7JKvKdMGPvCEQkDPzu CBBuTOPheq9TGGPvUKYnPBE8EMFqSTBzWPFpNPwwKNUeLAI8Nbv8OZYzIIReDA6KUzCjNWTdQAd6MsRl IRCrCSWumm3JYODmIUKnKgotWjGwUJXpYARmYQjhPDUpYBFqHpA1NWJsKWBdGA4IVzYrTEZtDYN5NaNh BEDoIQSmba3ETBXoUMDcAJP4FZSaZMCjDWXqQInvQA LcTYP7SyO9TFJcDYJsVC0QUyYiGXLlGLZ0HlJlENRmPBGivz6LGPIvLVLwOdLsDvYyKQPcVVGnYHjrRX QuRQG6AVjcXRDxRDJwLQ3OFoPtVEUxWWklFYngFBYuKYAbqa4LFTWeKIUvEKT8QcLgCPTsIUJwBXrjFI NxCRG5HHSvWLGwYSEjPF5GAcMkXUPwNPn6EgWjXAFj OKTjpj8LGKCvXVGoDZamHJXnKXMdYZScTRjrAEOgGAKiPdP4GPZgGCEnIQ4YNgMgAHNgMcK8KgMwMUFt LFVuma8FPWJtDUZiXSwsAtNtGBMfFSWfCKzdIMQhXCXcEEmuKFLcPYLfAN8YFvDnZTKzTbGjZKztGEDm LBCfvo8BGLMuLAUcMbJuADLbEBFuHVGoPJbyPTXgSX HqDWfvFEVyBKRdHP7YAdYjYBCdQiCbMAZvTAWmTRFzif6GGVVpORAqDMR6OEHmQHGtTHYuETf1vgAeaX EwRFs7JX7OC4OmswGwWwJAFo4Kp101CDX4UDJkCb6BO3nyJx1iURNtMIVXEq0YKEo6K8S0NPYjUOP7YW HiRXJpVXnaGvjdIKKvWAy9ZoSkGVJ+FQdeJBx7XwS9 EOl7XWN5JmU1PEGmU4EvUYJbSCJ6MSMoRQ6kANMDOp2+XQzgnLExxYkvGUCQGoP1GLO3MPnhQKADAd3U ID Date Data Source [id number] 04/27/2020 08:36:55 AM EDT [facility] Name Value Range Interpretation Code Description Data Beornica rce(s) Supporting Document(s) Leukocytes [#/volume] in Blood by Automated count 4.2 10*3/uL 4-10 [facility] Erythrocytes [#/volume] in Blood by Automated count 3.10 10*6/uL 4.6- 6.1 L [facility] Hemoglobin [Mass/volume] in Blood 11.1 g/dL 13.5-18 L [facility] Hematocrit [Volume Fraction] of Blood by Automated count 32.3 % 4 1-53 L [facility] Erythrocyte mean corpuscular volume [Entitic volume] b y Automated count 104.3 fL 80-96 H [facility] Erythrocyte mean corpuscular hemoglobin [Entitic mass] by Automated count 35.8 pg 27-33 H [facility] Erythrocyte mean corpuscular hemoglobin concentration [Mass/volume] by Automated count 34.4 g/dL 32.0-36.0 [facility] Erythrocyte distribution width [Ratio] by Automated count 16.3 % 11.5-14.5 H [facility] Platelets [#/volume] in Blood by Automated count 51 10*3/uL 150-400 L [facility] Differential cell count method - Blood [facility] Neutrophils/100 leukocytes in Blood by Automated count 61 % [facility] Lymphocytes/100 leukocytes in Blood by Automated count 28 % [facility] Monocytes/100 leukocytes in Blood by Automated count 9 % [facility] Eosinophils/100 leukocytes in Blood by Automated count 1 % [facility] Basophils/100 leukocytes in Blood by Automated count 1 % [facility] Neutrophils [#/volume] in Blood by Automated count 2.60 10*3/uL 1.8-7 .0 [facility] Lymphocytes [#/volume] in Blood by Automated count 1.16 10*3/uL 1.2-4 .0 L [facility] Monocytes [#/volume] in Blood by Automated count 0.36 10*3/uL 0-0.8 [facility] Eosinophils [#/volume] in Blood by Automated count 0.04 10*3/uL 0-0.5 [facility] Basophils [#/volume] in Blood by Automated count 0.03 10*3/uL 0-0.2 [facility] Nucleated erythrocytes/100 leukocytes [Ratio] in Blood by Automated count 0 /100{WBCs} 0-0 [facility] ID Date Data Source [id number] 04/27/2020 09:22:07 AM EDT [facility] Name Value Range Interpretation Code Description Data Beronica rce(s) Supporting Document(s) Bicarbonate [Moles/volume] in Serum 25 mmol/L 22-29 [facility] Chloride [Moles/volume] in Serum or Plasma 96 mmol/L 98-107 L [facility] Creatinine [Mass/volume] in Serum or Plasma 0.38 mg/dL 0.70-1.20 L [facility] Icteric Glucose [Mass/volume] in Serum or Plasma 80 mg/dL 70-140 [facility] Potassium [Moles/volume] in Serum or Plasma 3.3 mmol/L 3.4-5.1 L [facility] Sodium [Moles/volume] in Serum or Plasma 131 mmol/L 136-145 L [facility] Urea nitrogen [Mass/volume] in Serum or Plasma 2 mg/dL 6-20 L [facility] Anion gap 3 in Serum or Plasma 10 mmol/L 8-15 [facility] Osmolality of Serum or Plasma by calculation 267 mosm/kg 275-300 [facility] Creatinine/Urea nitrogen [Mass Ratio] in Serum or Plasma 4 [facility] Calcium [Mass/volume] in Serum or Plasma 7.6 mg/dL 8.6-10.0 L [facility] Glomerular filtration rate/1.73 sq M pre dicted among non-blacks [Volume Rate/Area] in Serum or Plasma by Creatinine-based formula (MDRD) >6 0 [facility] Glomerular filtration rate/1.73 sq M pre dicted among blacks [Volume Rate/Area] in Serum or Plasma by Creatinine-based formula (MDRD) >60 [facility] ID Date Data Source [id number] 04/27/2020 09:22:07 AM [facility] Name Value Range Interpretation Code Description Data Beronica rce(s) Supporting Document(s) Magnesium [Mass/volume] in Serum or Plasma 1.7 mg/dL 1.6-2.6 [facility] ID Date Data Source [id number] 04/27/2020 09:51:11 AM [facility] Name Value Range Interpretation Code Description Data Beronica rce(s) Supporting Document(s) Albumin [Mass/volume] in Serum or Plasma by Bromocresol green (BCG) dye binding method 2.3 g/dL 3.5-5.2 [facility] Bilirubin.total [Mass/volume] in Serum or Plasma 15.1 mg/dL <1.2 H [facility] Bilirubin.direct [Mass/volume] in Serum or Plasma 11.1 mg/dL <0.3 H [facility] Confirmed Alkaline phosphatase [Enzymatic activity/volume] in Serum or Plasma 170 U/L 40-129 H [facility] Aspartate aminotransferase [Enzymatic activity/volume] in Serum or Plasma 261 U/L <40 H [facility] Alanine aminotransferase [Enzymatic activity/volume] in Seru m or Plasma 58 U/L <41 H [facility] Protein [Mass/volume] in Serum or Plasma 6.9 g/dL 6.4-8.3 [facility] ID Date Data Source [id number] 04/27/2020 08:19:05 AM [facility] Value Range Interpretation Code Description Data Beronica rce(s) Supporting Document(s) Glucose [Mass/volume] in Capillary blood by Glucometer 72 mg/dL 70- 140 [facility] ID Date Data Source [id number] 04/27/2020 04:14:02 AM [facility] Value Range Interpretation Code Description Data Beronica rce(s) Supporting Document(s) Prothrombin time (PT) 26.1 s 12.5-14.9 H [facility] INR in Platelet poor plasma by Coagulation assay 2.34 [facility] Routine intensity oral anticoagulation I NR is typically 2.0-3.0. Target INR must be clinically individualized. ID Date Data Source [id number] 04/26/2020 09:54:49 PM [facility] Value Range Interpretation Code Description Data Beronica rce(s) Supporting Document(s) Glucose [Mass/volume] in Capillary blood by Glucometer 75 mg/dL 70- 140 [facility] ID Date Data Source [id number] 04/26/2020 08:48:12 PM [facility] Value Range Interpretation Code Description Data Beronica rce(s) Supporting Document(s) Lactate [Moles/volume] in Serum or Plasma 2.2 mmol/l 0.5-2.2 [facility] ID Date Data Source [id number] 04/26/2020 04:58:16 PM [facility] Value Range Interpretation Code Description Data Beronica rce(s) Supporting Document(s) Glucose [Mass/volume] in Capillary blood by Glucometer 77 mg/dL 70- 140 [facility] ID Date Data Source [id number] 04/26/2020 04:48:01 PM [facility] Name Value Range Interpretation Code Description Data Beronica rce(s) Supporting Document(s) Albumin [Mass/volume] in Serum or Plasma by Bromocresol green (BCG) dye binding method 2.6 g/dL 3.5-5.2 L [facility] Bilirubin.total [Mass/volume] in Serum or Plasma 14.8 mg/dL <1.2 H [facility] Bilirubin.direct [Mass/volume] in Serum or Plasma 9.8 mg/dL <0.3 H [facility] Alkaline phosphatase [Enzymatic activity/volume] in Serum or Plasma 180 U/L 40-129 H [facility] Aspartate aminotransferase [Enzymatic activity/volume] in Serum or Plasma 321 U/L <40 H [facility] Alanine aminotransferase [Enzymatic activity/volume] in Seru m or Plasma 63 U/L <41 H [facility] Protein [Mass/volume] in Serum or Plasma 7.2 g/dL 6.4-8.3 [facility] ID Date Data Source [id number] 04/26/2020 04:48:01 PM [facility] Value Range Interpretation Code Description Data Beronica rce(s) Supporting Document(s) Magnesium [Mass/volume] in Serum or Plasma 2.0 mg/dL 1.6-2.6 [facility] ID Date Data Source [id number] 04/26/2020 04:48:01 PM [facility] Value Range Interpretation Code Description Data Beronica rce(s) Supporting Document(s) Bicarbonate [Moles/volume] in Serum 27 mmol/L 22-29 [facility] Chloride [Moles/volume] in Serum or Plasma 96 mmol/L 98-107 L [facility] Creatinine [Mass/volume] in Serum or Plasma 0.58 mg/dL 0.70-1.20 L [facility] Glucose [Mass/volume] in Serum or Plasma 80 mg/dL 70-140 [facility] Potassium [Moles/volume] in Serum or Plasma 3.4 mmol/L 3.4-5.1 [facility] Sodium [Moles/volume] in Serum or Plasma 133 mmol/L 136-145 L [facility] Urea nitrogen [Mass/volume] in Serum or Plasma 2 mg/dL 6-20 L [facility] Anion gap 3 in Serum or Plasma 11 mmol/L 8-15 [facility] Osmolality of Serum or Plasma by calculation 271 mosm/kg 275-300 L [facility] Creatinine/Urea nitrogen [Mass Ratio] in Serum or Plasma 4 [facility] Calcium [Mass/volume] in Serum or Plasma 7.5 mg/dL 8.6-10.0 L [facility] Glomerular filtration rate/1.73 sq M pre dicted among non-blacks [Volume Rate/Area] in Serum or Plasma by Creatinine-based formula (MDRD) >6 0 [facility] Glomerular filtration rate/1.73 sq M pre dicted among blacks [Volume Rate/Area] in Serum or Plasma by Creatinine-based formula (MDRD) >60 [facility] ID Date Data Source [id number] 04/26/2020 05:40:59 PM EDT [facility] Name Value Range Interpretation Code Description Data Beronica rce(s) Supporting Document(s) Leukocytes [#/volume] in Blood by Automated count 4.7 10*3/uL 4-10 [facility] Erythrocytes [#/volume] in Blood by Automated count 3.03 10*6/uL 4.6- 6.1 L [facility] Hemoglobin [Mass/volume] in Blood 10.9 g/dL 13.5-18 L [facility] Hematocrit [Volume Fraction] of Blood by Automated count 31.4 % 4 1-53 L [facility] Erythrocyte mean corpuscular volume [Entitic volume] b y Automated count 103.4 fL 80-96 H [facility] Erythrocyte mean corpuscular hemoglobin [Entitic mass] by Automated count 36.0 pg 27-33 H [facility] Erythrocyte mean corpuscular hemoglobin concentration [Mass/volume] by Automated count 34.8 g/dL 32.0-36.0 [facility] Erythrocyte distribution width [Ratio] by Automated count 16.1 % 11.5-14.5 H [facility] Platelets [#/volume] in Blood by Automated count 43 10*3/uL 150-400 L [facility] ConfirmedGIANT PLATELETS PRESENT Differential cell count method - Blood [facility] Neutrophils/100 leukocytes in Blood by Automated count 70 % [facility] Lymphocytes/100 leukocytes in Blood by Automated count 19 % [facility] Monocytes/100 leukocytes in Blood by Automated count 8 % [facility] Neutrophils [#/volume] in Blood by Automated count 3.29 10*3/uL 1.8-7 .0 [facility] Lymphocytes [#/volume] in Blood by Automated count 0.89 10*3/uL 1.2-4 .0 L [facility] Monocytes [#/volume] in Blood by Automated count 0.38 10*3/uL 0-0.8 [facility] Band form neutrophils/100 leukocytes in Blood by Manual count 3 % [facility] Band form neutrophils [#/volume] in Blood by Manual count 0.14 10*3 /uL 0-0.6 [facility] Macrocytes [Presence] in Blood by Light microscopy [facility] Anisocytosis [Presence] in Blood by Light microscopy [facility] Target cells [Presence] in Blood by Light [facility] ID Date Data Source [id number] 04/26/2020 04:35:01 PM [facility] Value Range Interpretation Code Description Data Beronica rce(s) Supporting Document(s) Lactate [Moles/volume] in Serum or Plasma 2.7 mmol/l 0.5-2.2 H [facility] ID Date Data Source [id number] 04/26/2020 12:29:13 PM [facility] Value Range Interpretation Code Description Data Beronica rce(s) Supporting Document(s) Glucose [Mass/volume] in Capillary blood by Glucometer 104 mg/dL 70- 140 [facility] ID Date Data Source [id number] 04/26/2020 12:03:10 PM [facility] Value Range Interpretation Code Description Data Beronica rce(s) Supporting Document(s) Prothrombin time (PT) 25.9 s 12.5-14.9 H [facility] INR in Platelet poor plasma by Coagulation assay 2.32 [facility] Routine intensity oral anticoagulation I NR is typically 2.0-3.0. Target INR must be clinically individualized. ID Date Data Source [id number] 04/26/2020 11:33:51 AM [facility] Value Range Interpretation Code Description Data Beronica rce(s) Supporting Document(s) Ammonia [Moles/volume] in Plasma 15 umol/L 16-60 L [facility] ID Date Data Source [id number] 04/26/2020 11:30:31 AM [facility] Value Range Interpretation Code Description Data Beronica rce(s) Supporting Document(s) Lactate [Moles/volume] in Serum or Plasma 3.6 mmol/l 0.5-2.2 H [facility] ID Date Data Source [id number] 04/26/2020 11:26:50 AM [facility] Value Range Interpretation Code Description Data Beronica rce(s) Supporting Document(s) Color of Urine [facility] Clarity of Urine [facility] Specific gravity of Urine by Refractometry automated 1.012 1.003 -1.030 [facility] pH of Urine by Automated test strip 6.0 5.0-8.0 [facility] Protein [Mass/volume] in Urine by Automated test strip Neg [facility] Glucose [Mass/volume] in Urine by Automated test strip Neg [facility] Ketones [Mass/volume] in Urine by Automated test strip Neg [facility] Bilirubin.total [Presence] in Urine by Automated test strip Negative [facility] False-positive results may occur with ce rtain food additives or medications. Hemoglobin [Presence] in Urine by Automated test strip Neg ative A [facility] Leukocyte esterase [Presence] in Urine by Automated test strip Negative [facility] Nitrite [Presence] in Urine by Automated test strip Negati ve [facility] Leukocytes [#/area] in Urine sediment by Automated count 5 /HPF 0 -5 [facility] Erythrocytes [#/area] in Urine sediment by Automated count 0-3 [facility] Bacteria [#/area] in Urine sediment by Automated count Non e A [facility] ID Date Data Source [id number] 04/26/2020 09:46:[address] [facility] Value Range Interpretation Code Description Data Beronica rce(s) Supporting Document(s) Potassium [Moles/volume] in Urine 27.7 mmol/L [facility] ID Date Data Source [id number] 04/26/2020 09:46:29 AM [facility] Value Range Interpretation Code Description Data Beronica rce(s) Supporting Document(s) Sodium [Moles/volume] in Urine 30 mmol/L [facility] ID Date Data Source [id number] 04/26/2020 11:53:12 AM [facility] Value Range Interpretation Code Description Data Beronica rce(s) Supporting Document(s) Osmolality of Urine 227 mosm/kg 300-1000 L [facility] ID Date Data Source [id number] 04/26/2020 08:38:10 AM [facility] Name Value Range Interpretation Code Description Data Beronica rce(s) Supporting Document(s) Glucose [Mass/volume] in Capillary blood by Glucometer 90 mg/dL 70- 140 [facility] ID Date Data Source [id number] 04/26/2020 08:10:25 AM [facility] Name Value Range Interpretation Code Description Data Beroinca rce(s) Supporting Document(s) Leukocytes [#/volume] in Blood by Automated count 4.7 10*3/uL 4-10 [facility] Erythrocytes [#/volume] in Blood by Automated count 3.10 10*6/uL 4.6- 6.1 L [facility] Hemoglobin [Mass/volume] in Blood 11.3 g/dL 13.5-18 L [facility] Hematocrit [Volume Fraction] of Blood by Automated count 32.0 % 4 1-53 L [facility] Erythrocyte mean corpuscular volume [Entitic volume] b y Automated count 103.2 fL 80-96 H [facility] Erythrocyte mean corpuscular hemoglobin [Entitic mass] by Automated count 36.4 pg 27-33 H [facility] Erythrocyte mean corpuscular hemoglobin concentration [Mass/volume] by Automated count 35.2 g/dL 32.0-36.0 [facility] Erythrocyte distribution width [Ratio] by Automated count 16.0 % 11.5-14.5 H [facility] Platelets [#/volume] in Blood by Automated count 45 10*3/uL 150-400 L [facility] Differential cell count method - Blood [facility] Neutrophils/100 leukocytes in Blood by Automated count 63 % [facility] Lymphocytes/100 leukocytes in Blood by Automated count 26 % [facility] Monocytes/100 leukocytes in Blood by Automated count 9 % [facility] Eosinophils/100 leukocytes in Blood by Automated count 1 % [facility] Basophils/100 leukocytes in Blood by Automated count 1 % [facility] Neutrophils [#/volume] in Blood by Automated count 2.97 10*3/uL 1.8-7 .0 [facility] Lymphocytes [#/volume] in Blood by Automated count 1.23 10*3/uL 1.2-4 .0 [facility] Monocytes [#/volume] in Blood by Automated count 0.44 10*3/uL 0-0.8 [facility] Eosinophils [#/volume] in Blood by Automated count 0.02 10*3/uL 0-0.5 [facility] Basophils [#/volume] in Blood by Automated count 0.03 10*3/uL 0-0.2 [facility] Nucleated erythrocytes/100 leukocytes [Ratio] in Blood by Automated count 0 /100{WBCs} 0-0 [facility] ID Date Data Source [id number] 04/26/2020 08:38:01 AM [facility] Name Value Range Interpretation Code Description Data Beronica rce(s) Supporting Document(s) Albumin [Mass/volume] in Serum or Plasma by Bromocresol green (BCG) dye binding method 2.6 g/dL 3.5-5.2 L [facility] Bilirubin.total [Mass/volume] in Serum or Plasma 14.1 mg/dL <1.2 H [facility] Bilirubin.direct [Mass/volume] in Serum or Plasma 9.8 mg/dL <0.3 H [facility] Alkaline phosphatase [Enzymatic activity/volume] in Serum or Plasma 193 U/L 40-129 H [facility] Aspartate aminotransferase [Enzymatic activity/volume] in Serum or Plasma 349 U/L <40 H [facility] Alanine aminotransferase [Enzymatic activity/volume] in Seru m or Plasma 72 U/L <41 H [facility] Protein [Mass/volume] in Serum or Plasma 7.3 g/dL 6.4-8.3 [facility] ID Date Data Source [id number] 04/26/2020 08:38:01 AM [facility] Name Value Range Interpretation Code Description Data Beronica rce(s) Supporting Document(s) Bicarbonate [Moles/volume] in Serum 26 mmol/L 22-29 [facility] Chloride [Moles/volume] in Serum or Plasma 92 mmol/L 98-107 L [facility] Creatinine [Mass/volume] in Serum or Plasma 0.55 mg/dL 0.70-1.20 L [facility] Glucose [Mass/volume] in Serum or Plasma 88 mg/dL 70-140 [facility] Potassium [Moles/volume] in Serum or Plasma 4.2 mmol/L 3.4-5.1 [facility] Sodium [Moles/volume] in Serum or Plasma 129 mmol/L 136-145 L [facility] Urea nitrogen [Mass/volume] in Serum or Plasma 2 mg/dL 6-20 L [facility] Anion gap 3 in Serum or Plasma 11 mmol/L 8-15 [facility] Osmolality of Serum or Plasma by calculation 264 mosm/kg 275-300 L [facility] Creatinine/Urea nitrogen [Mass Ratio] in Serum or Plasma 4 [facility] Calcium [Mass/volume] in Serum or Plasma 7.9 mg/dL 8.6-10.0 L [facility] Glomerular filtration rate/1.73 sq M pre dicted among non-blacks [Volume Rate/Area] in Serum or Plasma by Creatinine-based formula (MDRD) >6 0 [facility] Glomerular filtration rate/1.73 sq M pre dicted among blacks [Volume Rate/Area] in Serum or Plasma by Creatinine-based formula (MDRD) >60 [facility] ID Date Data Source [id number] 04/26/2020 08:38:01 AM [facility] Name Value Range Interpretation Code Description Data Beronica rce(s) Supporting Document(s) Magnesium [Mass/volume] in Serum or Plasma 1.5 mg/dL 1.6-2.6 [facility] ID Date Data Source [id number] 04/26/2020 07:25:58 AM [facility] Name Value Range Interpretation Code Description Data Beronica rce(s) Supporting Document(s) [facility] BJQFLi0vVgLAQsFxu5HlAgJkWNXsMK6iqse7X5K9yYUiP9TbmXBqa1byX0GtY0UwIZGjJLMQMZ3PdKUq jb2 [file] FasQor/flask handler/flask handler/enDhscruP3VwqWuFj4RUn/QPSbJB7QVc7ZOkoUte8Od8RAuGIp+6muscP12/S5mH4 xyl6CBW83k/xpjOzPi7djEciWHR6ZNWxN+KCHh8pot 9C+birth attendant+0Rir5ePAqnvd9HrbvLmD+sdsIK66tk0McCZGjEllsDshfsRY6IuFF9HxelgsjR1NGd6BEz58+ [file] fawpbjjC8J8uchw3ukf8vms8HsafxXsxVpvbl3Y4+b tb2h3GWHlIQN+ihGSSIy9ymh4KWmKxtPesaccgl+ZDrl+iaEObn1YeIctIAe8jl9i3M991tPe3mGZg1s Wb4BwNpCDQANxtdm9FNaGwN1lwCLIomAGbtpSR2Y/4gS1uYauZGyMA70JVvxEwZn7Xfq/iZT8v+83C2O /6wq72e4TQUfg5zcv7z740Q0oS76WntPEhKJocdiPZ CaCyIAfVp7wPEbkaEX4hpLY82dgmK3RVWt+5q4Tkzpmb4glvGwFeJ6ZbeJhfFjncwChvfsMgD2aBPqia mMgjPyxE2qF7CkH8jTI37s4CehefZZtuxwyuv8qcSEzypDKgUP8Hcwp1nWtqQUyvwrVFZyS0uwD08qp9 6N3eeR+9huk4KW11xffxcmd7YmXK99VaVncrxQ/bi9 7tV+3cohPuXOfulhXX9VIk4EV6OD8wtwu+Fa7FumT4yGEcWB1H+od5IZitntQ/26/hcSxRyco1JiQC2L p3zOrGoXGc+9844fPyhv/tf/2w82havh8yty2zkJ/D/NTLM+y3YnYBBp+j02uDK01yJ0E+SuX+TfZTKe fphn/kouvnmJxTdcbi00+/caN1m4x+xx+hi3GPSf2w qQ2f5Tut0kfl24bS6q+dAvIj1ysO3ge9uIsJGaPg0Kiu57e6mdVExZNa4SjsadMkSFJWapk8R9K/Igcj audMH5cwiFaKWXHrO5qeBdMZLzi/9ArbH5r/2kDXMdCTNrBUvk5n4Xn80t+ELECTRONIC GLUER+VnR7PZdWB1tSOHunmh [file] Nf62FQz73ySVM2iwv3GT90E/+1s3W1/dv+k41d/AG45o48q539sh4cox3C54l4525/8xtDE49Pmyjvbk DzqedDzpeNHxovtuuu9+j59sA9/xmPxY5XHQEz4raE yM2BQZL/38yod8hcbplkoozRmzgKPyrTFSw6qCjun+1d+JTtM9a04PFy1o+HBea24vVf2jJI3znZxe2T 6D3nfQ+c4989TrX+e5D39txRqs1G5wy78f2P4cDm4vxl/w91d/d+aw0FIrwalQE/31sfZYrdttMmhok9 c4Shg6gberAnqzcZknzfNmYALCR6zH5GkqaWJzy4/K tIm35Amp3765ckUVADnboSVTBHhheFx1hyR619e8Wi24Ri548P7avQwekZdIiOn3XB79/sULu/XV6uPl 39+bju/fTMHE5X+/67S+un/T8fndt/UV/l50/Zztl9tZ+7a+al/Ekmq1jJlzP0WwqTIxFNvIA44IFko1 qo/vh/7+yoN//dFufYW/Ec7aaKhS7IuDNl9fjJcjiL Fxp+DBb4RDJl9WZl8ffsMD/TqCaquS61k5sc9E+gp/f/KXrz9nXZk+r5+Pvrp/r++7xPq+Cls27zs4Re eyce491/jqY+ur+jh6dqr8EcziC85PS/49O/og3Vt53j270Mn1bq6AkV721hA4j6vxlZ7CGIK51h/93c fP+930p8jb//r5KK66EvE34oupw6el7xCH6nl8B7r+ BlXzhk84WgfbGj8/pb1443tu96yYi44u8842dgq1e+dbXzn+/voLGr/jMQ22CG1Pj37+p6g/KuqPivqj dc74b27TdIv6Hr660zwld/ej47SFCha+2VqNsmWlWjzgvif8H/W/pK/7BahAekiVAgnHd8x/gzM34ZNj Kbn0U09KLtzXsr8WP5sz/gh5uF7ii8/Nuñez/PxQXtzPn [file] Edgardo+4OeJ4Jtvf2lEO0iq++8M5sz5WecXE5TH209wTG/3fsSi+m5P+6X/kNX51h3VkX0v1giSp7ylibL9 ydgy5vsza23rIOyvEQZqfn72N592iD2X+2XADs1Ulj1g9uYyq+Y15plzRMzSyp236Z3/k0aymqzkL/7K 7SF0K0Uzqee0j7VOAZ0DXojnrZe3q711kun40F1quE F2gqXum8/78qDZag999/jlwbOcXDp/ZyUdCz8SqYdCT+w289X1oNJcbT1oeIHxtRH1vqzvwz79NWt6Jg mDElpsc4z+EH5oQsKSmC6+SmNOC0tGvN2IuuwzRtbtH6MK1b1PVpwj5tbQIyxwbD4o92yjPlpPkFFx3X hqiHGVRLUMRWyCJBTQiVveoOSN5gpBMF3AbaNGLoxj kB2I4h6BiLiqlorR1VfP4ijaPDcNp2VPpLAs3+gLW2dIa8OiTAaTEyM+xFrntDNIgtSs7CavhcPAwOWx [employer]+yJz7I/AsoQUlnd1Va9vkpyZdc2yMKhsTT0LKoeUg077JvC8pJ3v6+1mk+LkqD13kbVMn86y02e+t [file] +S6wH4279JkrF3/27WCUZ1614bsmvIYpbZ6e+KN3e7 HksIjtjeZr77/19j6Af34//beVB4x03Muz/oakB0Au22bqspgbr0++/rhecaK1X59+/larsen/k/n6A159+O KO79k7jXoz5h/2xf17ocvkC3d/9fbF53//T480sjDbM/w5w2pfN89htg+/eX/T919+9/bhdx++/OrDL7 /64q/276h2nn0K47/+4V/++Marichuy/ff/Pb//t/7x9/q9/ +OG//9sf/ewl1b29qf/+4Ye33//d2z/+zYvV9x//4j5AA6snV7uwgT1Rn1a/8eZ21In/qD2TywXFikZ/ 9Kdf/Qynp5i4BPz4/KffAR+vVYMHt+vX/xfgcXgecP/u2BeT7IIi8O11p7/QGJqCxbmqfaz7ouGv9Gg5 /t5Q3/Xd1HU2r97/+Pj9v3z/l7+u3rxs0y3p00t6+P brD7/6r19+++G7L3/0rU+Gnv6/fqHxxf2ztj77kizt78t9N24irjtaTrljTkWt3y2LbyMnbn/Df/zd21 /+8B/f/+c292XnU8uOta7eS//+53iklWK09e6o9AtYx6/84T++/8v/+sO//XNb8kO201w/zJ3G4q+8+4 97t7gh1s33b83/+x///MNPb3/arB1i7emKG/uHT7/4 h0//xG+9LwU+mH9FfbLOjg4ZE3zOs5uk/aPar3jdxP2SY2/qxr79+uizr3m8u//+/t//u888uph7lg4h D7//+SvJzHv/c3n7P3/5x7/9ya/v7/CbP/hq2q2Bdrh3L/6az6PsUv4++c9/+mf05LqGZ+53/erP//SZ bNjciiCXTB62e+//6V9/+OM/fpweq27niwU6/uS3h3 Ejf/vv//ZeDV68k25/+fe/sjp71zo//NQzl5++7h8saaKY08+++4zzyWuO+v//1JHN7MhQfOhwK/7792 /y9ud/jspGxMJjjJd4g1649y7mFmJm7wr/+vTZ2/Oi5L6s5aQRKs6/8lHL56C4GvKrC8Vt1yBeq7/57d gxb547WA55oUv0li2R1yFWNetwljPcvQTlOQ9KCL0j r5EdEgZ6IDKzz4ZhMUykNHd4aAXfZWwitiVcg4PzqcixB2Yqm5JrYrEjTPXxYsShSku8PIRoSyI8bTRg QdWfXSDrI4GbZBIyKsG5KvLfHYIJIA7ERDKsjpJyAcWfAPI+WjKwUX2mofpaZBVtq7JaEZfqMHdePRAr N8Q0yGvnEFOdM3MwbA22ZHKyJ8IoqhZ0VRE9JAYwCv AvTGFzdCAxOSAwIFI+NsLeVN6krwimKGTda9XeJKdoHWY1hN8bSEtIIVHPFSpAZSctGiX7u98noiAEZA UwEKPgYC5NynBgmMvwbwDicTIjVIL2ZzNmBMK0HVItLbW7XHVETIPrQJWaUVZtOXKjT0LqaEquIEtDGK PDMUkVBJarElOai9D7EYFpgzFMENKQGQiXQEHWD47I MSBtAIg7LFXwQFNyF5OghgAqfAZbIWXEDPodYfbmTQKnhE4tvQsmU8DwMPQ8h9NxYP1OO4LzGEBvBWZI MML1m8TqWGFnqfdpjunxExFuMNOxYCFaLQKiNZ0Hzs2wfZHcoiKzQGRJLGjeSkgjON1ybLqrbdrvX4Tw aWVzKSA+PzJaHT8wry2+KeIrYFNyLzr5PFOmQLurUH VeSDPcTKXqI1diHHGiKwVjLEUmLfIsXT3Ii0ArvVHeRy5dzmReEjkQrHOtBtdkLILgLUJjANWxPuPEIH DgJCLxKSOuPNZ9DZAlGWTkTLbqUQUtGVR3ZlmtKEIlBWCkNL6xWfXoLGWlEkXgEgklTMMhRXNurlRHCL RaELA5UNYbMmDdLVHyLOWuGGklLCAdFTKxPBYqMVV9 OET1AEMtZtHnZJOyAJTaKZMrMLRuSJGhrsNZLTGfTSFsBNI2DHUwGDUgXDQjJEpoVUYqHZAeGNgnCRRp ONEhVS6oRhOxBNJiYDBiYCxbPEIySOAllgQYSBDmOHOoNIJpODLfOVMdEGWhXAfpKMMuTUUzDHDiZZGl WQDmOP3mEhAbTQGhDXJ9CIEsMXHvQJSscaBRWOGpLV SwSIv1NBDtBZHaYMGcILlkZKKiKITnGQM4PEIiHVQbVH5oJuEvXDRlDLP1KbWfXLGeKLEuqiGKAIVxZI XiCWP1KiJjEUDrSDRfRRvrRYXnKLThJGdhGWKtNSUfWU3jPaOqPJWsZINpJJhfFCJwJFHkvwDHXGRlJQ UbKZYbWwJgUWUdGFEeGSpmHEGvRSDqNUC7BEJhPLCe HF1hRnKnAEAaMIL2DFaaHTFnGIAixsRBSSBmZYVuXHgvSJIyNNDpPMSdGTksRVZyDTQkNAP2PQBbNQOt ET5sZbJcHDNrVTFlUNPuBsU0TaGyXbSUvESqaEfulgr3LBirF6p8NGVnMJnfYG7mbxZaLVZpMdtcFu8h qID9IKWbEdeQAk5Rt1BoyuG6hmXgJvD3AHD7XyJgDA8J ID Date Data Source [id number] 04/25/2020 08:50:41 PM EDT [facility] Name Value Range Interpretation Code Description Data Beronica rce(s) Supporting Document(s) Glucose [Mass/volume] in Capillary blood by Glucometer 131 mg/dL 70- 140 [facility] ID Date Data Source [id number] 04/25/2020 05:56:41 PM EDT [facility] Name Value Range Interpretation Code Description Data Beronica rce(s) Supporting Document(s) Leukocytes [#/volume] in Blood by Automated count 3.9 10*3/uL 4-10 L [facility] Erythrocytes [#/volume] in Blood by Automated count 3.16 10*6/uL 4.6- 6.1 L [facility] Hemoglobin [Mass/volume] in Blood 11.3 g/dL 13.5-18 L [facility] Hematocrit [Volume Fraction] of Blood by Automated count 32.4 % 4 1-53 [facility] Erythrocyte mean corpuscular volume [Entitic volume] b y Automated count 102.7 fL 80-96 [facility] Erythrocyte mean corpuscular hemoglobin [Entitic mass] by Automated count 35.9 pg 27-33 [facility] Erythrocyte mean corpuscular hemoglobin concentration [Mass/volume] by Automated count 34.9 g/dL 32.0-36.0 [facility] Erythrocyte distribution width [Ratio] by Automated count 16.1 % 11.5-14.5 [facility] Platelets [#/volume] in Blood by Automated count 52 10*3/uL 150-400 [facility] [facility] Differential cell count method - Blood [facility] Neutrophils/100 leukocytes in Blood by Automated count 71 % [facility] Lymphocytes/100 leukocytes in Blood by Automated count 22 % [facility] Monocytes/100 leukocytes in Blood by Automated count 7 % [facility] Eosinophils/100 leukocytes in Blood by Automated count 0 % [facility] Basophils/100 leukocytes in Blood by Automated count 0 % [facility] Neutrophils [#/volume] in Blood by Automated count 2.72 10*3/uL 1.8-7 .0 [facility] Lymphocytes [#/volume] in Blood by Automated count 0.86 10*3/uL 1.2-4 .0 [facility] Monocytes [#/volume] in Blood by Automated count 0.28 10*3/uL 0-0.8 [facility] Eosinophils [#/volume] in Blood by Automated count 0.01 10*3/uL 0-0.5 [facility] Basophils [#/volume] in Blood by Automated count 0.02 10*3/uL 0-0.2 [facility] Nucleated erythrocytes/100 leukocytes [Ratio] in Blood by Automated count 0 /100{WBCs} 0-0 [facility] ID Date Data Source [id number] 04/25/2020 06:07:27 PM EDT [facility] Name Value Range Interpretation Code Description Data Beronica rce(s) Supporting Document(s) Albumin [Mass/volume] in Serum or Plasma by Bromocresol green (BCG) dye binding method 2.6 g/dL 3.5-5.2 [facility] Bilirubin.total [Mass/volume] in Serum or Plasma 13.5 mg/dL <1.2 [facility] Bilirubin.direct [Mass/volume] in Serum or Plasma 9.4 mg/dL <0.3 [facility] Alkaline phosphatase [Enzymatic activity/volume] in Serum or Plasma 200 U/L 40-129 [facility] Aspartate aminotransferase [Enzymatic activity/volume] in Serum or Plasma 375 U/L <40 [facility] Alanine aminotransferase [Enzymatic activity/volume] in Seru m or Plasma 76 U/L <41 [facility] Protein [Mass/volume] in Serum or Plasma 7.5 g/dL 6.4-8.3 [facility] ID Date Data Source [id number] 04/25/2020 06:07:27 PM [facility] Value Range Interpretation Code Description Data Beronica rce(s) Supporting Document(s) Bicarbonate [Moles/volume] in Serum 23 mmol/L 22-29 [facility] Chloride [Moles/volume] in Serum or Plasma 89 mmol/L 98-107 [facility] Creatinine [Mass/volume] in Serum or Plasma 0.41 mg/dL 0.70-1.20 [facility] Icteric Glucose [Mass/volume] in Serum or Plasma 112 mg/dL 70-140 [facility] Potassium [Moles/volume] in Serum or Plasma 4.0 mmol/L 3.4-5.1 [facility] Sodium [Moles/volume] in Serum or Plasma 126 mmol/L 136-145 [facility] Urea nitrogen [Mass/volume] in Serum or Plasma 2 mg/dL 6-20 [facility] Anion gap 3 in Serum or Plasma 14 mmol/L 8-15 [facility] Osmolality of Serum or Plasma by calculation 259 mosm/kg 275-300 [facility] Creatinine/Urea nitrogen [Mass Ratio] in Serum or Plasma 5 [facility] Calcium [Mass/volume] in Serum or Plasma 7.7 mg/dL 8.6-10.0 [facility] Glomerular filtration rate/1.73 sq M pre dicted among non-blacks [Volume Rate/Area] in Serum or Plasma by Creatinine-based formula (MDRD) >6 0 [facility] Glomerular filtration rate/1.73 sq M pre dicted among blacks [Volume Rate/Area] in Serum or Plasma by Creatinine-based formula (MDRD) >60 [facility] ID Date Data Source [id number] 04/25/2020 06:07:27 PM [facility] Name Value Range Interpretation Code Description Data Beronica rce(s) Supporting Document(s) Magnesium [Mass/volume] in Serum or Plasma 1.5 mg/dL 1.6-2.6 [facility] ID Date Data Source [id number] 04/25/2020 06:00:25 PM [facility] Value Range Interpretation Code Description Data Beronica rce(s) Supporting Document(s) Lactate [Moles/volume] in Serum or Plasma 2.4 mmol/l 0.5-2.2 [facility] ID Date Data Source [id number] 04/25/2020 05:17:39 PM [facility] Value Range Interpretation Code Description Data Beronica rce(s) Supporting Document(s) Glucose [Mass/volume] in Capillary blood by Glucometer 92 mg/dL 70- 140 [facility] ID Date Data Source [id number] 04/25/2020 12:14:37 PM [facility] Value Range Interpretation Code Description Data Beronica rce(s) Supporting Document(s) Glucose [Mass/volume] in Capillary blood by Glucometer 89 mg/dL 70- 140 [facility] ID Date Data Source [id number] 04/30/2020 12:14:10 PM [facility] Service Cmnt XXX-Imp : Specimen source n ot given.Microorganism XXX Cult : No growth 5 days Name Value Range Interpretation Code Description Data Beronica rce(s) Supporting Document(s) ID Date Data Source [id number] 04/25/2020 10:49:36 AM [facility] Value Range Interpretation Code Description Data Beronica rce(s) Supporting Document(s) Gamma glutamyl transferase [Enzymatic activity/volume] in Serum or Plasma 457 U/L 8-61 [facility] ID Date Data Source [id number] 04/25/2020 08:24:33 AM EDT [facility] Name Value Range Interpretation Code Description Data Beronica rce(s) Supporting Document(s) Glucose [Mass/volume] in Capillary blood by Glucometer 76 mg/dL 70- 140 [facility] ID Date Data Source [id number] 04/25/2020 07:25:00 AM EDT [facility] CT ABDOMEN PELVIS WITH CONTRAST [id number] AL RESULTInterpreted by:DANDRE RadfordROCEDURE INFORMATION: Exam: CT Abdomen And Pelvis With Contrast Exam date and time: 04/25/2020 5:54 AM Age: 49 years old Clinical indication: Other: Hepatitis, pancreatitis TECHNIQUE: Imaging protocol: Computed tomography of the abdomen and pelvis with intravenous contrast. Radiation optimization: All CT scans at this facility use at least one of these dose optimization techniques: automated exposure control; mA and/or kV adjustment per patient size (includes targeted exams where dose is matched to clinical indication); or iterative reconstruction. Contrast material: [id number]; Contrast volume: 100 ml; Contrast route: INTRAVENOUS (IV); COMPARISON: No relevant prior studies available. FINDINGS: There appears to be diffuse mural thickening at the junction of the 2nd and 3rd portions of the duodenum with a prominent adjacent fat stranding. There is a very small amount of peritoneal fluid. There is a moderate umbilical hernia containing a short segment of small bowel and surrounded by fluid. There is no evidence for obstruction. There is hepatomegaly. There is severe fatty infiltration of the liver. There are splenic granulomas. The liver, spleen, pancreas, adrenals and kidneys otherwise appear unremarkable. There are no abdominal or pelvic masses. There is no free air identified. There appears to be a punctate calcification in in the wall of the gallbladder. No definite calculus is seen. The appendix is identified and appears unremarkable. The bowel gas pattern is normal. There is incidental fat in the wall of the right colon. The abdominal aorta is normal in caliber. There is right basilar atelectasis. IMPRESSION: 1. Findings are compatible with duodenitis. 2. Small umbilical hernia containing a short segment of small bowel without evidence for obstruction. THIS DOCUMENT HAS BEEN ELECTRONICALLY SIGNED BY TAHMINA GIRARD MDThis document has been electronically signed by Tahmina Girard MD on 04/25/2020 7:24 AM Name Value Range Interpretation Code Description Data Beronica rce(s) Supporting Document(s) ID Date Data Source [id number] 04/25/2020 07:22:27 AM EDT [facility] Name Value Range Interpretation Code Description Data Beronica rce(s) Supporting Document(s) History and Physical [facility] CVYLIe8qQsRFOzNl88/BHSllCPOnz5BcBQrxLPu6YLxfDXIgM0LyROY0wN4gPIT4KJqRDvHwUvVaBOG1 lbm DvOowEIiZwCVDkHgzWTwAhLQlrZowakWHvCJ6RyBR7OOMnS62hYXQcOVJtQ4UoQXO1DTu+Fc3DSZDuuY VmRO9TMmfO2P6Ja4tUGQ3AOl8YVIBmxosjPVP60GZQgelPXXxUCGq9WnnVnCFXboiKF//6gAAhqFvwZz SoaUeN7Zw0I7M1y4eb0Nydgt/vT7UV+o7jqOV/t/8M G2MQAidzl9Ngs104tt21B0gKmGDkoIwqI8E/uvr+B89OVO+Dz2VR8Qv3+gSRGAIxguNVsV4Ft603Ort/ OX6SS8Wjv5JyMVhCoHTSMhr6ms3ZibCoWeEzMs6YFN/HIYTg98aB544GBhLC1oWGXXh7/SNCwX4+TgEe 6ZOB0JOR6IqxNPXuQUjMj6F+BQMKagq+f5zBz0/Uu9 LgzC5B16tsiDp/BBAXijXV3YeXlh0PAVrApmypElSa96yzb1IIw9OhdKt6R2ruHcyhiM5RnT5T3D4s1j zu+WoKlbKdMphKepx5pmCPkgpXbpU+3VITISUIg2eSzHarSriYDjr972zl3ucwqdv44JhydnN1m6y3o/ 4CGoRaTLXYRETmw8xEj5UXXWPRe8D/BROz2Jt4VBGB [file] ICAgICAgICAgICAgICAgICAgICAgICAgICAgICAgIC AgICAgICAgICAgICAgICAgICAgICAgICAgICAgICAgICAgICAgICAgICAgICANCiAgICAgICAgICAgIC AgICAgICAgICAgICAgICAgICAgICAgICAgICAgICAgICAgICAgICAgICAgICAgICAgICAgICAgICAgIC AgICAgICAgICAgICAgICAgICAgICAgICAgICANCiAg ICAgICAgICAgICAgICAgICAgICAgICAgICAgICAgICAgICAgICAgICAgICAgICAgICAgICAgICAgICAg ICAgICAgICAgICAgICAgICAgICAgICAgICAgICAgICAgICAgICANCiAgICAgICAgICAgICAgICAgICAg ICAgICAgICAgICAgICAgICAgICAgICAgICAgICAgIC AgICAgICAgICAgICAgICAgICAgICAgICAgICAgICAgICAgICAgICAgICAgICAgICANCiAgICAgICAgIC AgICAgICAgICAgICAgICAgICAgICAgICAgICAgICAgICAgICAgICAgICAgICAgICAgICAgICAgICAgIC AgICAgICAgICAgICAgICAgICAgICAgICAgICAgICAN CiAgICAgICAgICAgICAgICAgICAgICAgICAgICAgICAgICAgICAgICAgICAgICAgICAgICAgICAgICAg ICAgICAgICAgICAgICAgICAgICAgICAgICAgICAgICAgICAgICAgICANCiAgICAgICAgICAgICAgICAg ICAgICAgICAgICAgICAgICAgICAgICAgICAgICAgIC AgICAgICAgICAgICAgICAgICAgICAgICAgICAgICAgICAgICAgICAgICAgICAgICAgICANCiAgICAgIC AgICAgICAgICAgICAgICAgICAgICAgICAgICAgICAgICAgICAgICAgICAgICAgICAgICAgICAgICAgIC AgICAgICAgICAgICAgICAgICAgICAgICAgICAgICAg ICANCiAgICAgICAgICAgICAgICAgICAgICAgICAgICAgICAgICAgICAgICAgICAgICAgICAgICAgICAg ICAgICAgICAgICAgICAgICAgICAgICAgICAgICAgICAgICAgICAgICAgICANCiAgICAgICAgICAgICAg ICAgICAgICAgICAgICAgICAgICAgICAgICAgICAgIC AgICAgICAgICAgICAgICAgICAgICAgICAgICAgICAgICAgICAgICAgICAgICAgICAgICAgICANCjw/eH KiA5zfgVMjcaN1I4njZe7KFv9TSH8cz9KyNLZyWGyciwNaLlzIKiAeIKRhNnhLQcj6OMqvPT1GsQTtA6 SuY6IqRFlzUT8KGOUlUZVhuVUhYXHzRDBzUeL6PWLo CTqkXE8VwMTtFBycMAAoOBIuNoEcNBFaFNUrHICcCYCzCLSCXSEoBWGqYuDxWAPmDUTzQY7JXIRuN452 ltRxMf3PFb2HVqShQW6cpv4USnLiGWFeZmqOEsl9LAxaEJ5ErTPzyEHfFsLwQXUUBvRdA0qvj6SaSsFk KVPYXYfuAM3Be7NcbUDaWWt+Sl1LBJ8wf5HlHTxtKy YlFJ1pxq7BSLuDKjTkG6TovTpkGPsbWBPaoLQNhKKyYMtjLBplhKAwqQXoQN8OLXZ1MLsaAE4hXBIoOG BaSqJ3DNKKOM8CSSZmAKAxgRKiEHQgTYKYRR5LYBmxFFO8MHRoskFnhHZtTHsoMW0VXLHybkSzHsZvFZ BSDQo+Cz9FQV0mg2MmUWtkRFAjNY9bov3UQNfPKeGw P6O3bVKoI4Z2JUptQd9YTXPgWRXnUkAwQNMHDWauNV6LCL8grfW8CO2IzTOuGQBhRDNvuQHnMOx0Z62p yPCdPZdfXJ8WWMZ+Claudia+Ok8QWCPtQLQoPFGnXqElAFGJVqFsQ4BtN5OWq0BeC8FdJM46aUmfrjCpZMha BM3KHS2qNPAhXUSYXF4LeXXthV4uciZvNaZsFFWCVt FdO65fiLMcZRLaVLJiTIZeRn6KJJLxI5OpesCfwJtvpqCtSIFsZRTVEA9PJTuqymNoqEMfhFvzRA65bG dkUO7HHg6HFdAcQB5lbf0KsPYxDi0UUPMzTW3HLDJkEDUvDJOdFWN5VINrYpUxMEnvNRXjZIDrVPQ0XM QcFWUpLA6FAhEbAPQrObM5MHReXHUrWZKqkc7HSMBi JFJeRqIpKeDlPQEwFQLePEflMFTkRAUuKLB1MLMwHBGiWX1WFkKfAXMmXOJhGbccCWDdCUKzkh0MONPe GACdQVRkXJQwWBZyEIAdXKryNLIxQYJ5Tul6CGFdPLYqFG2DYnYpKATtBCh1LFRzKSHeLCPctl9EDFVt MDAxMDYxNyAwMDAwMCBuDQowMDAwMDEwODIxIDAwMD VdUV2CHbTqEMHjMHOgIIgtOAZdHEIdyl6DCRCdJMNrWAB9INIqNIRsMFWvFVxuSZXeGXQ3DHTsYOPqFS RtCO9ONnSePGAeVFfpQiiiSPHoPIDrri9DUBAhLAAcXLf1CfWcUASpWWEhXIteLELfSNQ7RBBjWNEmCK BrNL6ZTvLtAGGeQaAsPhGwWLYlBCKueg8SSPKgOIVx LIMgTTMjXOSsBOJyCFkcMFHeICKqAVKnINDeBXMpWA3VPtRmEKAwTtP8JxKvVZRfBPMqcq4XUDCaTTRt BEQ1HSIwBHNhLUXzZIerUQIeMORfYTNvOXRxJFBmFA5UHxHfXPFuLfTxPivjMNCoNIEsqi3YBWKpDFWl BiE6BRPbMBYmYUSpRVfoSFIrAVHeXgF3ZWIbZHJqER 4WCmAfGKMcUcWhSVYoHRVqRCQnwq4WPHNfTHQmMFT1YLNiDLIwHDMpPDnlFETvMSR5QBnqCLPvMEKiQX 4EEzNlRPJfDkSdTRUqUUBdMUEtps1NPTMgAWYiBJE0CTCkHJJkOIDmNKqjODUiNQU5XVi4VBUnDFMoKJ 2HEjVfSDRzFwqeHWscTIUhTSHwnp7HOXOiZLKiGxUb YYBkJUEbJEStVMdqSRLdDAR5QSN8ODObQQSzUC7MUhEbNYlqELJNWjp4GVucK5u2SFZdUR9EH6Qde7Hh EzDoUWNPXVdrFY1emtYoYONoUx4OH4kBNowfHIMpEnsvPxuxX0W9LbVkHGDoTwJ1YdV4MsLiOAvhXy4v SUHcIDDmUYWbEJQ3LfanYXN1TFEeYskgPWpzIVHmSa RdXgUlBF5WEo5RBvT4OCB6nVUvUn1YFgy5GAKLXdJlWK6BDWu= ID Date Data Source [id number] 04/25/2020 06:39:34 AM EDT [facility] XR CHEST FRONTAL ONLY [id number] RESULTI nterpreted by:Tahmina Girard [facility]: Exam: XR Chest, 1 View Exam date and time: 04/25/2020 5:02 AM Age: 49 years old Clinical indication: Shortness of breath; Additional info: SOB TECHNIQUE: Imaging protocol: XR of the chest Views: 1 view. COMPARISON: No relevant prior studies available. FINDINGS: The lungs are clear except for right basilar discoid atelectasis or scarring. There is associated elevation of the right hemidiaphragm. The bones, soft tissues and mediastinum otherwise appear unremarkable.There is no pneumothorax. IMPRESSION: Negative chest x-ray except for discoid atelectasis or scarring at the right base. THIS DOCUMENT HAS BEEN ELECTRONICALLY SIGNED BY TAHMINA GIRARD MDThis document has been electronically signed by Tahmina Girard MD on 04/25/2020 6:39 AM Name Value Range Interpretation Code Description Data Beronica rce(s) Supporting Document(s) ID Date Data Source [id number] 04/25/2020 09:32:15 AM EDT [facility] Name Value Range Interpretation Code Description Data Beronica rce(s) Supporting Document(s) Hepatitis A virus IgM Ab [Presence] in Serum or Plasma by Im munoassay Non Reactive [facility] No acute infection, susceptible to infec tion. Hepatitis B virus core IgM Ab [Presence] in Serum or Plasma by Immunoassay Non Reactive [facility] IgM antibodies to HBc were not detected, does not exclude the possibility of exposure to HBV. Hepatitis C virus Ab [Presence] in Serum or Plasma by Immuno assay [facility] Reactive [facility] No serological evidence of active infect ion. If recent exposure is suspected, test for HCV RNA. Hepatitis B virus surface Ag [Presence] in Serum or Plasma b y Immunoassay Non Reactive [facility] No active or previous infection. Suscept ible to infection. ID Date Data Source [id number] 04/25/2020 07:04:32 AM [facility] Value Range Interpretation Code Description Data Beronica rce(s) Supporting Document(s) Fibrin D-dimer FEU [Mass/volume] in Platelet poor plas ma by Immunoassay 12.78 ug/mL{FEU} <0.50 [facility] Confirmed ID Date Data Source [id number] 04/25/2020 07:04:32 AM [facility] Value Range Interpretation Code Description Data Beronica rce(s) Supporting Document(s) Fibrinogen [Mass/volume] in Platelet poor plasma by Coagulat ion assay 245 mg/dl 190-450 [facility] ID Date Data Source [id number] 04/25/2020 07:04:32 AM [facility] Value Range Interpretation Code Description Data Beronica rce(s) Supporting Document(s) aPTT in Platelet poor plasma by Coagulation assay 62.5 s 24.0-33. 0 [facility] ID Date Data Source [id number] 04/30/2020 12:14:10 PM [facility] Cmnt XXX-Imp : RT ACMicroorganis m XXX Cult : No growth 5 days Name Value Range Interpretation Code Description Data Beronica rce(s) Supporting Document(s) ID Date Data Source [id number] 04/30/2020 12:14:10 PM [facility] Cmnt XXX-Imp : LT HANDMicroorgan ism XXX Cult : No growth 5 days Name Value Range Interpretation Code Description Data Beronica rce(s) Supporting Document(s) ID Date Data Source [id number] 04/25/2020 04:45:07 AM [facility] Value Range Interpretation Code Description Data Beronica rce(s) Supporting Document(s) Prothrombin time (PT) 22.1 s 12.5-14.9 [facility] INR in Platelet poor plasma by Coagulation assay 1.90 [facility] Routine intensity oral anticoagulation I NR is typically 2.0-3.0. Target INR must be clinically individualized. ID Date Data Source [id number] 04/25/2020 04:52:33 AM [facility] Value Range Interpretation Code Description Data Beronica rce(s) Supporting Document(s) Lipase [Enzymatic activity/volume] in Serum or Plasma 83 U/L 13-6 0 [facility] ID Date Data Source [id number] 04/25/2020 04:52:33 AM EDT [facility] Name Value Range Interpretation Code Description Data Beronica rce(s) Supporting Document(s) Albumin [Mass/volume] in Serum or Plasma by Bromocresol green (BCG) dye binding method 2.9 g/dL 3.5-5.2 [facility] Bilirubin.total [Mass/volume] in Serum or Plasma 13.5 mg/dL <1.2 [facility] Calcium [Mass/volume] in Serum or Plasma 7.9 mg/dL 8.6-10.0 [facility] Chloride [Moles/volume] in Serum or Plasma 93 mmol/L 98-107 [facility] Creatinine [Mass/volume] in Serum or Plasma 0.34 mg/dL 0.70-1.20 [facility] Icteric Glucose [Mass/volume] in Serum or Plasma 85 mg/dL 70-140 [facility] Alkaline phosphatase [Enzymatic activity/volume] in Serum or Plasma 215 U/L 40-129 [facility] Potassium [Moles/volume] in Serum or Plasma 3.3 mmol/L 3.4-5.1 [facility] Hemolyzed Protein [Mass/volume] in Serum or Plasma 8.2 g/dL 6.4-8.3 [facility] Sodium [Moles/volume] in Serum or Plasma 133 mmol/L 136-145 [facility] Aspartate aminotransferase [Enzymatic activity/volume] in Serum or Plasma 436 U/L <40 [facility] Hemolyzed Urea nitrogen [Mass/volume] in Serum or Plasma 2 mg/dL 6-20 [facility] Osmolality of Serum or Plasma by calculation 272 mosm/kg 275-300 [facility] Creatinine/Urea nitrogen [Mass Ratio] in Serum or Plasma 7 [facility] Bicarbonate [Moles/volume] in Serum 26 mmol/L 22-29 [facility] Alanine aminotransferase [Enzymatic activity/volume] in Seru m or Plasma 85 U/L <41 [facility] Anion gap 3 in Serum or Plasma 14 mmol/L 8-15 [facility] Glomerular filtration rate/1.73 sq M pre dicted among non-blacks [Volume Rate/Area] in Serum or Plasma by Creatinine-based formula (MDRD) >6 0 [facility] Glomerular filtration rate/1.73 sq M pre dicted among blacks [Volume Rate/Area] in Serum or Plasma by Creatinine-based formula (MDRD) >60 [facility] ID Date Data Source [id number] 04/25/2020 04:52:33 AM [facility] Name Value Range Interpretation Code Description Data Beronica rce(s) Supporting Document(s) Phosphate [Mass/volume] in Serum or Plasma 2.6 mg/dL 2.5-4.5 [facility] ID Date Data Source [id number] 04/25/2020 04:52:33 AM [facility] Name Value Range Interpretation Code Description Data Beronica rce(s) Supporting Document(s) Troponin T.cardiac [Mass/volume] in Serum or Plasma <0.01 [facility] ID Date Data Source [id number] 04/25/2020 06:28:05 AM [facility] Value Range Interpretation Code Description Data Beronica rce(s) Supporting Document(s) Leukocytes [#/volume] in Blood by Automated count 3.9 10*3/uL 4-10 [facility] Erythrocytes [#/volume] in Blood by Automated count 3.21 10*6/uL 4.6- 6.1 L [facility] Hemoglobin [Mass/volume] in Blood 11.9 g/dL 13.5-18 L [facility] Hematocrit [Volume Fraction] of Blood by Automated count 32.8 % 4 1-53 [facility] Erythrocyte mean corpuscular volume [Entitic volume] b y Automated count 102.1 fL 80-96 [facility] Erythrocyte mean corpuscular hemoglobin [Entitic mass] by Automated count 37.0 pg 27-33 [facility] Erythrocyte mean corpuscular hemoglobin concentration [Mass/volume] by Automated count 36.2 g/dL 32.0-36.0 [facility] Erythrocyte distribution width [Ratio] by Automated count 16.0 % 11.5-14.5 [facility] Platelets [#/volume] in Blood by Automated count 63 10*3/uL 150-400 [facility] Differential cell count method - Blood [facility] Neutrophils/100 leukocytes in Blood by Automated count 66 % [facility] Lymphocytes/100 leukocytes in Blood by Automated count 23 % [facility] Monocytes/100 leukocytes in Blood by Automated count 5 % [facility] Eosinophils/100 leukocytes in Blood by Automated count 1 % [facility] Basophils/100 leukocytes in Blood by Automated count 2 % [facility] Neutrophils [#/volume] in Blood by Automated count 2.57 10*3/uL 1.8-7 .0 [facility] Lymphocytes [#/volume] in Blood by Automated count 0.90 10*3/uL 1.2-4 .0 L [facility] Monocytes [#/volume] in Blood by Automated count 0.20 10*3/uL 0-0.8 [facility] Eosinophils [#/volume] in Blood by Automated count 0.04 10*3/uL 0-0.5 [facility] Basophils [#/volume] in Blood by Automated count 0.08 10*3/uL 0-0.2 [facility] Band form neutrophils/100 leukocytes in Blood by Manual count 3 % [facility] Band form neutrophils [#/volume] in Blood by Manual count 0.12 10*3 /uL 0-0.6 [facility] Macrocytes [Presence] in Blood by Light microscopy [facility] Target cells [Presence] in Blood by Light microscopy [facility] ID Date Data Source [id number] 04/25/2020 06:37:45 AM [facility] Value Range Interpretation Code Description Data Beronica rce(s) Supporting Document(s) Ferritin [Mass/volume] in Serum or Plasma 2328 ng/ml 30-400 H [facility] Confirmed ID Date Data Source [id number] 04/25/2020 06:37:45 AM [facility] Value Range Interpretation Code Description Data Beronica rce(s) Supporting Document(s) Magnesium [Mass/volume] in Serum or Plasma 1.1 mg/dL 1.6-2.6 L [facility] ID Date Data Source [id number] 04/25/2020 09:32:25 AM [facility] Value Range Interpretation Code Description Data Beronica rce(s) Supporting Document(s) Cobalamin (Vitamin B12) [Mass/volume] in Serum or Plasma 2 11-946 H [facility] ID Date Data Source [id number] 04/25/2020 09:32:25 AM [facility] Value Range Interpretation Code Description Data Beronica rce(s) Supporting Document(s) Iron [Mass/volume] in Serum or Plasma 114 ug/dl 59-158 [facility] Transferrin [Mass/volume] in Serum or Plasma 89 mg/dL 200-360 [facility] Iron binding capacity [Mass/volume] in Serum or Plasma 124 ug/dl 228 -428 [facility] Iron saturation [Mass Fraction] in Serum or Plasma 96.0 % 20-55 [facility] ID Date Data Source [id number] 04/25/2020 09:12:34 AM EDT [facility] Name Value Range Interpretation Code Description Data Beronica rce(s) Supporting Document(s) Folate [Mass/volume] in Serum or Plasma 5.94 ng/mL >4.77 [facility] ID Date Data Source [id number] 04/25/2020 05:43:02 AM EDT [facility] Name Value Range Interpretation Code Description Data Beronica rce(s) Supporting Document(s) Color of Urine [facility] Clarity of Urine [facility] Specific gravity of Urine by Refractometry automated 1.010 1.003 -1.030 [facility] pH of Urine by Automated test strip 6.0 5.0-8.0 [facility] Protein [Mass/volume] in Urine by Automated test strip Neg [facility] Glucose [Mass/volume] in Urine by Automated test strip Neg [facility] Ketones [Mass/volume] in Urine by Automated test strip 5 mg/dL Neg [facility] Bilirubin.total [Presence] in Urine by Automated test strip Negative [facility] False-positive results may occur with ce rtain food additives or medications. Hemoglobin [Presence] in Urine by Automated test strip Neg ative [facility] Leukocyte esterase [Presence] in Urine by Automated test strip Negative [facility] Nitrite [Presence] in Urine by Automated test strip Negati [facility] Leukocytes [#/area] in Urine sediment by Automated count 0 -5 [facility] Erythrocytes [#/area] in Urine sediment by Automated count 1 /HPF 0-3 [facility] Service comment [facility] Hyaline casts [#/area] in Urine sediment by Microscopy low p ower field 1 /LPF None [facility] ID Date Data Source [id number] 04/25/2020 04:45:32 AM [facility] Name Value Range Interpretation Code Description Data Beronica rce(s) Supporting Document(s) Lactate [Moles/volume] in Serum or Plasma 4.2 mmol/l 0.5-2.2 [facility] Results called to and read back by jewell cole [id number] RN @ 0444 9.5.20 [id number] ID Date Data Source [id number] 04/25/2020 05:50:35 AM [facility] Cmnt XXX-Imp : NoneMicroorganism XXX Cult : 2019 nCoV Real-Time RT-PCR: NOT DETECTEDTest performed using [employer] Respiratory Panel. This test is only for use under Food and Drug Administration's Emergency Use Authorization.Additional information is available on the following FDA websites for health care providers and patients. https://www.fda.gov/media/348952/download , https://www.fda.gov/[facility] tin/490222/downloadPolymerase chain reaction is NEGATIVE for Influenza A H1, H3 and 2009 H1 viruses, Influenza B virus, Respiratory syncytial virus, Human metapneumovirus, Parainfluenza virus 1,2,3 and 4, Adenovirus, Rhinovirus/ Enterovirus, Coronavirus HKU1, NL63, OC43 and 229E, Bordetella pertussis, B. parapertussis, Mycoplasma pneumoniae and Chlamydia pneumoniae. Name Value Range Interpretation Code Description Data Beronica rce(s) Supporting Document(s) ID Date Data Source [id number] 04/25/2020 03:59:00 AM [facility] Cmnt XXX-Imp : NoneMicroorganism XXX Cult : 2018 nCoV Real-Time RT-PCR: NOT DETECTEDTest performed using [employer] Respiratory Panel. This test is only for use under Food and Drug Administration's Emergency Use Authorization.Additional information is available on the following FDA websites for health care providers and patients. https://www.fda.gov/media/123349/download , https://www.fda.gov/[facility] tin/453053/downloadPolymerase chain reaction is NEGATIVE for Influenza A H1, H3 and 2009 H1 viruses, Influenza B virus, Respiratory syncytial virus, Human metapneumovirus, Parainfluenza virus 1,2,3 and 4, Adenovirus, Rhinovirus/ Enterovirus, Coronavirus HKU1, NL63, OC43 and 229E, Bordetella pertussis, B. parapertussis, Mycoplasma pneumoniae and Chlamydia pneumoniae. Name Value Range Interpretation Code Description Data Beronica rce(s) Supporting Document(s) Microorganism identified in Unspecified specimen by [facility] This lab was ordered by [facility] and reported by [facility]. ID Date Data Source [id number] 11/04/2019 12:00:00 AM EDT eCW1 ([facility]) Name Value Range Interpretation Code Description Data Beronica rce(s) Supporting Document(s) Microalbumin/Creatinine [Mass Ratio] in Urine 74.6 CREATININE, URINE [facility] Albumin/Creatinine [Mass Ratio] in Urine 53.3 MALB URINE SIEMENS eCW1 ([facility]) Microalbumin/Creatinine [Ratio] in Urine 71.4 0.0-30.0 MEJIA/CREAT RATIO eCW1 ([facility]) ID Date Data Source [id number] 11/04/2019 12:00:00 AM EDT eCW1 ([facility]) Name Value Range Interpretation Code Description Data Beronica rce(s) Supporting Document(s) Hemoglobin A1c/Hemoglobin.total in Blood 6.4 HEMOGLOBIN A1c eCW1 ([facility]) Procedure Social History Code Duration Value Status Description Data Source(s ) Smoking 08/10/2020 12:00:00 AM EST Former Smoker completed Former Smoker eCW1 [facility]) Smoking 08/10/2020 12:00:00 AM EST Former Smoker completed Former Smoker eCW1 [facility]) Smoking 07/27/2020 12:00:00 AM EST Former Smoker completed Former Smoker eCW1 ([facility]) Alcohol intake 07/08/2020 12:00:00 AM EST Current drinker of al cohol (finding) completed Current drinker of alcohol (finding) [facility] Tobacco use and exposure 07/08/2020 12:00:00 AM EST Never used co mpleted Never used [facility] Cigarette pack-years 07/08/2020 12:00:00 AM EST UNK completed [facility] Cigarettes smoked current (pack per day) - Reported 07/08/20 12:00:00 AM EST UNK completed [facility] Smoking 07/08/2020 12:00:00 AM EST Light tobacco smoker comple rosa Light tobacco smoker [facility] Smoking 06/08/2020 12:00:00 AM EDT Former Smoker completed Former Smoker eCW1 [facility]) Smoking 06/08/2020 12:00:00 AM EDT Former Smoker completed Former Smoker eCW1 ([facility]) Smoking 06/08/2020 12:00:00 AM EDT Former Smoker completed Former Smoker eCW1 ([facility]) Smoking 04/30/2020 12:00:00 PM EDT Ex-smoker (finding) completed Former Smoker [facility] ([facility]) Alcohol intake 04/26/2020 12:00:00 AM EDT Current drinker of al cohol (finding) completed Current drinker of alcohol (finding) [facility] Smoking 02/07/2020 12:00:00 AM EDT Former Smoker completed Former Smoker eCW1 [facility] Smoking 02/07/2020 12:00:00 AM EDT Former Smoker completed Former Smoker eCW1 ([facility]) Smoking 02/07/2020 12:00:00 AM EDT Former Smoker completed Former Smoker eCW1 ([facility]) Smoking 02/07/2020 12:00:00 AM EDT Former Smoker completed Former Smoker eCW1 ([facility]) Vital Signs ID Date Data Source UNK Name Value Range Interpretation Code Description Data Source(s) Body surface area Derived from formula 2.09 m2 2.09 m2 [facility] ([facility], ) Body weight 82.272 kg 82.272 kg [facility] ([facility]) [place] body weight 190 [lb_av] 190 [lb_av] MEDEN T ([facility]) Body mass index (BMI) [Ratio] 23.3 kg/m2 23.3 k g/m2 [facility] ([facility]) Body weight 181.38 [lb_av] 181.38 [lb_av] [facility] T ([facility], ) Body height 74 [in_i] 74 [in_i] [facility] ([facility]) 6'2" Diastolic blood pressure 74 mm[Hg] 74 mm[Hg] [facility] ([facility]) Systolic blood pressure 109 mm[Hg] 109 mm[Hg] M [facility] ([facility]) Body surface area Derived from formula 2.15 m2 2.15 m2 [facility] ([facility]) Body weight 88.622 kg 88.622 kg [facility] ([facility]) [place] body weight 190 [lb_av] 190 [lb_av] [facility] T ([facility]) Body mass index (BMI) [Ratio] 25.1 kg/m2 25.1 k g/m2 [facility] ([facility]) Body weight 195.38 [lb_av] 195.38 [lb_av] [facility] ([facility]) Body height 74 [in_i] 74 [in_i] [facility] ([facility]) 6'2" Diastolic blood pressure 69 mm[Hg] 69 mm[Hg] [facility] ([facility]) Systolic blood pressure 102 mm[Hg] 102 mm[Hg] [facility] ([facility]) Body surface area Derived from formula 2.16 m2 2.16 m2 [facility] ([facility]) Body weight 89.870 kg 89.870 kg [facility] ([facility]) [place] body weight 190 [lb_av] 190 [lb_av] [facility] T ([facility]) Body mass index (BMI) [Ratio] 25.4 kg/m2 25.4 k g/m2 [facility] ([facility]) Body weight 198.12 [lb_av] 198.12 [lb_av] [facility] ([facility]) Body height 74 [in_i] 74 [in_i] [facility] ([facility]) 6'2" Heart rate 98 /min 98 /min [facility] ([facility]) Diastolic blood pressure 65 mm[Hg] 65 mm[Hg] [facility] ([facility]) Systolic blood pressure 96 mm[Hg] 96 mm[Hg] M [facility] ([facility], ) [place] body weight 190 [lb_av] 190 [lb_av] [facility] Body mass index (BMI) [Ratio] 26.7 kg/m2 26.7 k g/m2 [facility] ([facility]) Body weight 208.00 [lb_av] 208.00 [lb_av] [facility] Body height 74 [in_i] 74 [in_i] [facility] ([facility]) 6'2" Diastolic blood pressure 68 mm[Hg] 68 mm[Hg] [facility] ([facility]) Systolic blood pressure 100 mm[Hg] 100 mm[Hg] [facility] ([facility]) Body weight 94.349 kg 94.349 kg [facility] ([facility]) Diastolic blood pressure 70 mm[Hg] 70 mm[Hg] eCW1 [facility] Systolic blood pressure 124 mm[Hg] 124 mm[Hg] e CW1 ([facility]) Body temperature 97.8 [degF] 97.8 [degF] eCW1 ( [facility]) Respiratory rate 18 /min 18 /min eCW1 ([facility]) Heart rate 80 /min 80 /min eCW1 ([facility]) Body mass index (BMI) [Ratio] 28.87 kg/m2 28.87 kg/m2 W1 ([facility]) Body height 75 [in_i] 75 [in_i] eCW1 ([facility]) Body weight 231 [lb_av] 231 [lb_av] eCW1 ([facility]) Diastolic blood pressure 86 mm[Hg] 86 mm[Hg] eCW1 ([facility]) Systolic blood pressure 122 mm[Hg] 122 mm[Hg] e CW1 ([facility]) Body temperature 99.0 [degF] 99.0 [degF] eCW1 ( [facility]) Respiratory rate 18 /min 18 /min eCW1 ([facility]) Heart rate 95 /min 95 /min eCW1 ([facility]) Body mass index (BMI) [Ratio] 29.00 kg/m2 29.00 kg/m2 eCW1 ([facility]) Body height 75 [in_us] 75 [in_us] eCW1 ([facility]) Body weight Measured 232.06 [lb_av] 232.06 [lb_ av] eCW1 ([facility]) Body mass index (BMI) [Ratio] 30.49 kg/m2 30.49 kg/m2 eCW1 ([facility]) Body height 75 [in_us] 75 [in_us] eCW1 ([facility]) Body weight Measured 244 [lb_av] 244 [lb_av] eC W1 ([facility]) Diastolic blood pressure 90 mm[Hg] 90 mm[Hg] eCW1 ([facility]) Systolic blood pressure 124 mm[Hg] 124 mm[Hg] e CW1 ([facility]) Body temperature 97.8 [degF] 97.8 [degF] eCW1 ( [facility]) Respiratory rate 20 /min 20 /min eCW1 ([facility]) Heart rate 96 /min 96 /min eCW1 ([facility]) Body mass index (BMI) [Ratio] 30.49 kg/m2 30.49 kg/m2 eCW1 ([facility]) Body height 75 [in_us] 75 [in_us] eCW1 ([facility]) Body weight Measured 244 [lb_av] 244 [lb_av] eC W1 ([facility]) ID Date Data Source [id number] 05/19/2020 09:54:53 AM EDT [facility] Name Value Range Interpretation Code Description Data Source(s) WEIGHT RECORDED 218 lb 218 lb [facility] WEIGHT RECORDED 177.6 lb 177.6 lb [facility] WEIGHT RECORDED 212.8 lb 212.8 lb [facility] Body height Measured 75 in 75 in [facility] TRANSFER FROM [facility] Patient Treatment Plan of Care Planned Activity Planned Date Details Description Data Source (s) Abdominal Binder/Elastic Large - 08/27/2020 12:00:00 AM EST eCW1 ([facility]) Abdominal Binder/Elastic Large - 08/27/2020 12:00:00 AM EST eCW1 ([facility]) Amitriptyline Hydrochloride 25 MG Oral Tablet 08/10/2020 12:00:00 A M EST eCW1 ([facility]) Amitriptyline Hydrochloride 25 MG Oral Tablet 08/10/2020 12:00:00 A M EST eCW1 ([facility]) Furosemide 40 MG Oral Tablet 07/27/2020 12:00:00 AM EST eCW1 ([facility]) Spironolactone 100 MG Oral Tablet 07/27/2020 12:00:00 AM EST eCW1 ([facility]) Ondansetron 4 MG Oral Tablet 07/27/2020 12:00:00 AM EST eCW1 ([facility]) Amitriptyline Hydrochloride 10 MG Oral Tablet 06/08/2020 12:00:00 A M EDT eCW1 ([facility]) Amitriptyline Hydrochloride 10 MG Oral Tablet 06/08/2020 12:00:00 A M EDT eCW1 ([facility]) Amitriptyline Hydrochloride 10 MG Oral Tablet 06/08/2020 12:00:00 A M EDT eCW1 ([facility]) Vitamin K 1 5 MG Oral Tablet 05/28/2020 12:00:00 AM EDT eCW1 ([facility]) Vitamin K 1 5 MG Oral Tablet 05/28/2020 12:00:00 AM EDT eCW1 ([facility]) Hydrocortisone 10 MG Oral Tablet 05/12/2020 12:00:00 AM [facility] Hydrocortisone 10 MG Oral Tablet 05/12/2020 12:00:00 AM [facility] Melatonin 3 MG Oral Tablet 05/11/2020 10:00:00 PM [facility] Promethazine Hydrochloride 25 MG/ML Injectable Solutio n 05/11/2020 12:10:26 PM [facility] Meclizine Hydrochloride 12.5 MG Oral Tablet 05/11/2020 12:10:20 PM [facility] Thiamine 100 MG Oral Tablet 05/11/2020 12:00:00 AM [facility] Hydrocortisone 5 MG Oral Tablet 05/11/2020 12:00:00 AM [facility] Hydrocortisone 10 MG Oral Tablet 05/11/2020 12:00:00 AM [facility] Folic Acid 1 MG Oral Tablet 05/11/2020 12:00:00 AM [facility] Calcium Carbonate 1250 MG / Cholecalciferol 200 UNT Or al Tablet 05/11/2020 12:00:00 AM [facility] Aluminum Hydroxide 40 MG/ML / Magnesium Hydroxide 40 MG/ML / Simethicone 4 MG/ML Oral Suspension 05/11/2020 12:00:00 AM [facility] Ondansetron 4 MG Oral Tablet 05/11/2020 12:00:00 AM [facility] Meclizine Hydrochloride 12.5 MG Oral Tablet 05/11/2020 12:00:00 AM [facility] Meclizine Hydrochloride 12.5 MG Oral Tablet 05/11/2020 12:00:00 AM [facility] Hydrocortisone 5 MG Oral Tablet 05/11/2020 12:00:00 AM [facility] Hydrocortisone 10 MG Oral Tablet 05/11/2020 12:00:00 AM [facility] Aluminum Hydroxide 40 MG/ML / Magnesium Hydroxide 40 MG/ML / Simethicone 4 MG/ML Oral Suspension 05/11/2020 12:00:00 AM [facility] Hydrocortisone 5 MG Oral Tablet 05/11/2020 12:00:00 AM [facility] Hydrocortisone 5 MG Oral Tablet 05/11/2020 12:00:00 AM [facility] Oxycodone Hydrochloride 5 MG Oral Tablet 05/09/2020 01:13:10 PM [facility] Acetaminophen 325 MG / Hydrocodone Bitartrate 5 MG Ora l Tablet 05/06/2020 12:00:00 AM [facility] Thiamine 100 MG Oral Tablet 05/06/2020 12:00:00 AM [facility] Ondansetron 4 MG Oral Tablet 05/06/2020 12:00:00 AM [facility] Tab-A-Franki/Beta Carotene Oral Tablet 05/06/2020 12:00:00 AM [facility] Meclizine Hydrochloride 12.5 MG Oral Tablet 05/06/2020 12:00:00 AM [facility] Folic Acid 1 MG Oral Tablet 05/06/2020 12:00:00 AM [facility] Calcium Carbonate 1250 MG / Cholecalciferol 200 UNT Or al Tablet 05/06/2020 12:00:00 AM [facility] Dextromethorphan Hydrobromide 2 MG/ML / Guaifenesin 20 MG/ML Oral Suspension 04/28/2020 07:00:00 PM [facility] sodium chloride (preservative free) 0.9 % flush 10 mL 04/27/2020 02:17:31 PM [facility] dextrose 50 % IV solution 25 mL 04/25/2020 03:04:32 AM [facility] Glucagon 1 MG Injection 04/25/2020 03:04:32 AM [facility] Glucose 0.417 MG/MG Oral Gel 04/25/2020 03:04:32 AM [facility] Meclizine Hydrochloride 25 MG Chewable Tablet 02/07/2020 12:00:00 A M EDT eCW[facility] Naltrexone hydrochloride 50 MG Oral Tablet 02/07/2020 12:00:00 AM E DT eCW1 ([facility]) doxycycline hyclate 50 MG Oral Capsule 01/01/2020 12:00:00 AM EDT eCW1 ([facility]) doxycycline hyclate 50 MG Oral Capsule 01/01/2020 12:00:00 AM EDT eCW1 ([facility]) Metformin hydrochloride 500 MG Oral Tablet 11/11/2019 12:00:00 AM E DT eCW1 ([facility]) Clindamycin 10 MG/ML Topical Lotion [Cleocin-T] 10/14/2019 12:00:00 AM EST eCW1 ([facility]) adapalene 1 MG/ML Topical Lotion [Differin] 10/14/2019 12:00:00 AM EST eCW1 ([facility]) doxycycline hyclate 100 MG Oral Capsule [facility] atorvastatin 20 MG Oral Tablet [facility] Metformin hydrochloride 500 MG Oral Tablet [facility]
[2020-09-01 16:40] LABS: ALBUMIN 3.1 GM/DL (3.2-5.2); ALT/SGPT 22 U/L (12-78); BILIRUBIN,DIRECT 0.7 MG/DL (0.0-0.2); BILIRUBIN,TOTAL 1.7 MG/DL (0.2-1.0); BLOOD UREA NITROGEN 6 MG/DL (7-18); CALCIUM LEVEL 8.9 MG/DL (8.5-10.1); CARBON DIOXIDE LEVEL 23 MEQ/L (21-32); CHLORIDE LEVEL 105 MEQ/L (98-107); CREATININE FOR GFR 0.85 MG/DL (0.70-1.30); GLOMERULAR FILTRATION RATE > 60.0 (>56); GLUCOSE, FASTING 97 MG/DL (70-100); LIPASE 129 U/L (73-393); POTASSIUM SERUM 3.4 MEQ/L (3.5-5.1); SODIUM LEVEL 137 MEQ/L (136-145); TOTAL PROTEIN 6.9 GM/DL (6.4-8.2)
[2020-09-01 18:15] VITALS: BP 122/74
== END 2020-09-01 18:55 | disposition home or self-care (01) ==
LOC: EDBD 15:13 → M ED 15:13
DX: K42.9 Umbilical hernia without obstruction or gangrene (principal); I10 Essential (primary) hypertension
CPT/HCPCS: 80048; 80076; 83605; 83690; 85025; 86850; 86900; 86901; 93041; 96361; 96374; 99285; J1170

== ENCOUNTER 2020-09-10 23:58 | Day surgery (SDC) | payer OTHER ==
[~2020-09-10] VITALS: Ht 190.5 cm; Wt 82.3 kg
[~2020-09-10 23:58] MED LIST changes: +AMIT25TA17 PO; +FURO40TA2 PO; -LISI-542 PO; +LISI-898 PO; +ONDA-83 PO; +SPIR100T3 PO
--- OUTSIDE RECORDS SUMMARY | 2020-09-11 00:06 | CCD ---
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 Name Role Phone Taras Baker Unavailable PROBLEMS Type Condition ICD9-CM Code [id number] Code Onset Dates Condition S tatus SNOMED Code Notes Problem Alcohol abuse F10.10 Active 39807417 Problem Headache in back of head R51 Active 744955 Problem Essential hypertension I10 Active 64425913 Problem Sinus congestion R09.81 Active 56030417 Problem Seasonal allergic rhinitis due to other allergic trigger J30.89 Active 935440603 Problem Thrombocytopenia D69.6 Active 291692032 Problem Alcohol dependence with unspecified alcohol-induced disord er F10.29 Active 05510347 Problem Ascites due to alcoholic cirrhosis K70.31 Activ e [id number] Problem Vitamin D deficiency E55.9 Active 80177573 Problem Peripheral polyneuropathy G62.9 Active 153669 00 Problem Depression, unspecified depression type F32.9 Active 19193143 Problem Hypomagnesemia E83.42 Active 739210725 Problem Mixed hyperlipidemia E78.2 Active 857241577 Problem Fatty liver K76.0 Active 631119674 Problem Hyperbilirubinemia E80.6 Active 39210731 ALLERGIES No Known Allergies ENCOUNTERS from 1970 to 2020-09-07 Encounter Location Date Provider Diagnosis [facility] Resident [address] [place] [address] May, Taras Baker Hyperbilirubinemia E80.6 ; A lcohol abuse F10.10 ; Fatty liver K76.0 ; Neuropathic pain M79.2 ; History of prediabetes Z87.898 and Mixed hyperlipidemia E78.2 IMMUNIZATIONS Vaccine Route Administration Date Status Influenza [...] Catholic: Question Answer Notes Roman Catholic 13 Restorationism Sexual Hx: Question Answer Notes Had sex [...] FOR REFERRAL No Information VITAL SIGNS Weight 204 lbs May, Height 75 in May, BMI 25.50 kg/m2 May, Heart Rate 101 /min May, Respiratory Rate 19 /min May, Temperature 97.7 degrees Fahrenheit May, Oximetry 97 May, Blood pressure systolic 118 mm Hg May, Blood pressure diastolic 84 mm Hg May, MEDICATIONS Medication SIG (Take, Route, Frequency, Duration) [...] Information RESULTS No Results REASON FOR VISIT ER F/U [facility] MEDICAL (GENERAL) HISTORY Type Description Date Medical [...] Notes Treatment Notes Treatm ent Clinical Notes May, Hyperbilirubinemia (ICD-10 - E80.6) Patient's hyperbilirubinemia has continued to improve however, patient has not been seen by pigment grinder. I will place an urgent referral for the patient to be seen. I did give the patient a few days of vitamin K and recheck his INR which did not change. Current INR is 1.64. Patient does not appear to have any signs of ascites at this time. May, Alcohol abuse (ICD-10 - F10.10) Patient has been sober from alcohol for greater than 1 month. I commended the patient on this. Patient will continue to abstain from alcohol as he says he feels great. May, Fatty liver (ICD-10 - K76.0) Patient had elevated transaminases which will also continue to improve. Patient had a CT scan performed in the emergency department which showed an enlarged liver with fatty infiltrate. May, Neuropathic pain (ICD-10 - M79.2) Patient's neuropathy is most like secondary to alcohol as the patient does not have a history of diabetes and patient's vitamin B12 is elevated above the normal range which is mostly secondary to his liver disease. I started the patient on amitriptyline 10 mg taken at night. May, History of prediabetes (ICD-10 - Z87.898) Patient was started on metformin for prediabetes in the past. Patient was told and Aung stopped taking that medication which she has not been taking. May, Mixed hyperlipidemia (ICD-10 - E78.2) Due to the patient's active liver disease, I have advised the patient to stop taking atorvastatin. PLAN OF TREATMENT Medication Medication Name Sig Start Date Stop Date Abdominal Binder/Elastic Large - as directed for 999 days Aug Amitriptyline HCl 25 MG 1 tablet at bedtime Orally Once a da y for 30 day(s) Jul, Atorvastatin Calcium 20 MG 1 tablet Orally Once a day for 30 Treatment Notes Assessment Notes Clinical Notes Hyperbilirubinemia Patient's hyperbilirubinemia has continued to improve however, patient has not been seen by pigment grinder. I will place an urgent referral for the patient to be seen. I did give the patient a few days of vitamin K and recheck his INR which did not change. Current INR is 1.64. Patient does not appear to have any signs of ascites at this time. Alcohol abuse Patient has been sober from alcohol for greater than 1 month. I commended the patient on this. Patient will continue to abstain from alcohol as he says he feels great. Fatty liver Patient had elevated transam inases which will also continue to improve. Patient had a CT scan performed in the emergency department which showed an enlarged liver with fatty infiltrate. Neuropathic pain Patient's neuropathy is most like secondary to alcohol as the patient does not have a history of diabetes and patient's vitamin B12 is elevated above the normal range which is mostly secondary to his liver disease. I started the patient on amitriptyline 10 mg taken at night. History of prediabetes Patient was started on metfo rmin for prediabetes in the past. Patient was told and Aung stopped taking that medication which she has not been taking. Mixed hyperlipidemia Due to the patient's active liver disease, I have advised the patient to stop taking atorvastatin. Next Appt Details 6 Weeks Reason:follow up neuropathic jhonny n, hyperbilirubinemia Provider Name:Taras Baker, 2020-09-23 09:30:00 AM, [address] [place] [address], [id number], Provider Name:Taras Baker, 2020-09-25 11:00:00 AM, [address] [place] [address], [id number], Follow Up:6 Weeksfollow up neuropathic pain, hyperbilirubinemia Insurance Providers Payer Name Payer Address Payer Phone Insured Name Patient Relati onship to Insured Coverage Start Date Coverage End Date [facility] CORPORATE CLAIMS DEPT [address] [facility] [phone] SUZANNE GONZÁLES self
--- OUTSIDE RECORDS SUMMARY | 2020-09-11 00:09 | CCD ---
Author Author [facility] Organization [facility] Address Unknown Phone Unavailable Care Team Providers Care Knife Grinder Name Role Phone Stefania WHITE MD Unavailable [...] is protected by Article 27-F of the [facility] Public Health law. If you continue you may have access to information: Regarding HIV / AIDS; Provided by facilities licensed or operated by the [facility] Office of Mental Health; or Provided by the [facility] Office for People With Developmental Disabilities. If such information is present, then the following [facility] mandated warning applies: This information has [...] law may result in a fine or penitentiary sentence or both. A general authorization for the release of medical or other information is NOT sufficient authorization for further disc losure. Allergies and Adverse Reactions Type Description Substance Reaction Status Data Source(s ) Drug Class NO KNOWN ALLERGIES NO KNOWN ALLERGIES [facility] Encounters Encounter Providers Location Date Indications Data Source(s ) Unknown [address] [facility] [place] [address] 08/27/2020 12:00:00 AM EST eCW1 (Critical access hospital) Unknown [address] [facility] [place] [address] 08/26/2020 12:00:00 AM EST eCW1 (Critical access hospital) Unknown [address] [facility] [place] [address] 07/29/2020 12:00:00 AM EST eCW1 (Critical access hospital) Outpatient Attender: LIN Gottlieb/Kajal/Ilir/ Reinliborio 07/23/2020 08:00:00 AM EST [facility] ([facility]) Outpatient Attender: KATHY ALFORD 07/15/2020 12:00:00 AM E [facility] Outpatient Attender: KATHY ALFORD [id number] 12:00:00 AM EST - 07/08/2020 02:35:16 PM [facility] Unknown [address] [facility] [place] [address] 07/02/2020 12:00:00 AM EST eCW1 (Critical access hospital) Outpatient Attender: Gerard Marcos 07/01/2020 12:00:00 AM E [facility] Unknown [address] [facility] [place] [address] 06/29/2020 12:00:00 AM EST eCW1 (Critical access hospital) Outpatient Attender: LIN Gottlieb/Kajal/Ilir/ Reindl 06/16/2020 10:50:00 AM EDT [facility] ([facility]) [place]patient [address] [facility] [address] 06/08/2020 12:00:00 AM EDT eCW1 (Critical access hospital) [place] [address] [facility] [address] 05/29/2020 12:00:00 AM EDT eCW1 (Critical access hospital) [place] [address] [facility] [address] 05/28/2020 12:00:00 AM EDT eCW1 (Critical access hospital) Outpatient Attender: LIN Gottlieb/Kajal/Ilir/ Reindl 05/19/2020 01:30:00 PM EDT MED[facility]ILIO ([facility] Outpatient Attender: YAHIR VILLAR MDReferrer: YAHIR VILLAR MD 05/07/2020 12:00:00 AM [facility] Outpatient Attender: YAHIR VILLAR MDReferrer: YAHIR VILLAR MD 05/07/2020 12:00:00 AM [facility] Outpatient Attender: LUDIN THORPE MD [id number] 05/04/2020 10:28:14 A M [facility] Unlisted evaluation and management service 04/21 06:10:00 PM EDT [facility]SMART ([facility]) Inpatient Attender: Onel Adam santiago: YAHIR VILLAR MDAttender: CHIQUI PADRON RESIDENTAttender: REGINA MONTANEZ MDAdmitter: REGINA MONTANEZ MDReferrer: REGINA MONTANEZ MD [id number] 04/25/2020 12:00:00 AM EDT - 05/11/2020 02:37:00 PM EDT Alcoholic hepatitis without ascites [facility] Alcoholic hepatitis without ascites Patient discharged. Unknown [address] [facility] [address] 03/10/2020 12:00:00 AM EDT eCW1 (Critical access hospital) [place]patient [address] [facility] [address] 02/07/2020 12:00:00 AM EDT eCW1 (Critical access hospital) [place] [address] [facility] [address] 02/04/2020 12:00:00 AM EDT eCW1 ([facility]) Outpatient 01/23/2020 04:24:00 AM EDT [facility] Resident [address] [place] [phone] 01/21/2020 12:00:00 AM EDT eCW1 ([facility]) [facility] [place] [address] [facility] [address] 01/14/2020 12:00:00 AM EDT eCW1 ([facility]) [facility] [place] [address] [facility] [place] [address] 01/09/2020 12:00:00 AM EDT eCW1 ([facility]) [facility] Resident [address] [place] [phone] 01/06/2020 12:00:00 AM EDT eCW1 ([facility]) [facility] Resident [address] [place] [phone] 12/31/2019 12:00:00 AM EDT eCW1 ([facility]) [facility] [place] [address] [facility] [place] [address] 12/31/2019 12:00:00 AM EDT eCW1 ([facility]) [facility] Resident [address] [place] [phone] 12/30/2019 12:00:00 AM EDT eCW1 ([facility]) [facility] [place] [address] [place] [address] [place] [address] 12/23/2019 12:00:00 AM EDT eCW1 ([facility]) [facility] Resident [address] [place] [phone] 12/23/2019 12:00:00 AM EDT eCW1 ([facility]) [facility] Resident [address] [place] [phone] 11/11/2019 12:00:00 AM EDT eCW1 (Critical access hospital) [facility] Resident [address] [place] [address] 11/08/2019 12:00:00 AM EDT eCW1 (Critical access hospital) [facility] Resident [address] [place] [phone] 11/08/2019 12:00:00 AM EDT eCW1 (Critical access hospital) [facility] Resident [address] [place] [phone] 11/05/2019 12:00:00 AM EDT eCW1 (Critical access hospital) [facility] Resident [address] [place] [phone] 10/14/2019 12:00:00 AM EST eCW1 (Critical access hospital) [facility] [address] [facility] [place] [address] 09/23/2019 12:00:00 AM EST eCW1 (Critical access hospital) Outpatient 09/21/2019 09:01:00 AM EST [facility] [address] [facility] [place] [address] 09/12/2019 12:00:00 AM EST eCW1 (Critical access hospital) Medications Medication Brand Name Start Date Product Form Dose Route Admi nistrative Instructions Pharmacy Instructions Status Indications Reaction Description Data Source(s) Abdominal Binder/Elastic Large - Abdominal Binder/Elastic [place] - 08/27/2020 12:00:00 AM EST active Abdomina l Binder/Elastic Large - eCW1 ([facility]) Abdominal Binder/Elastic Large - Abdominal Binder/Elastic La r[place] - 08/27/2020 12:00:00 AM EST active Abdomina l Binder/Elastic Large - eCW1 ([facility]) Abdominal Binder/Elastic Large - Abdominal Binder/Elastic [place] r[place] - 08/27/2020 12:00:00 AM EST active Abdomina l Binder/Elastic Large - eCW1 ([facility]) Amitriptyline Hydrochloride 25 MG Oral Tablet Amitript yline HCl 25 MG Amitriptyline HCl 25 MG 08/10/2020 12:00:00 AM EST 1.0 {tablet_at_b edtime} active Amitriptyline HCl 25 MG e CW1 ([facility]) Amitriptyline Hydrochloride 25 MG Oral Tablet Amitript yline HCl 25 MG Amitriptyline HCl 25 MG 08/10/2020 12:00:00 AM EST 1.0 {tablet_at_b edtime} active Amitriptyline HCl 25 MG e CW1 ([facility]) Amitriptyline Hydrochloride 25 MG Oral Tablet Amitript yline HCl 25 MG Amitriptyline HCl 25 MG 08/10/2020 12:00:00 AM EST 1.0 {tablet_at_b edtime} active Amitriptyline HCl 25 MG e CW1 ([facility]) Ondansetron 4 MG Oral Tablet Ondansetron HCl 4 MG Ondansetro n HCl 4 MG 07/27/2020 12:00:00 AM EST 1.0 {tablet} active Ondansetron HCl 4 MG eCW1 ([facility]) Ondansetron 4 MG Oral Tablet Ondansetron HCl 4 MG Ondansetro n HCl 4 MG 07/27/2020 12:00:00 AM EST 1.0 {tablet} active Ondansetron HCl 4 MG eCW1 ([facility]) Spironolactone 100 MG Oral Tablet Spironolactone 100 MG 02/2020 12:00:00 AM EST 1.0 {tablet} active Spironolact one 100 MG eCW1 ([facility]) Spironolactone 100 MG Oral Tablet Spironolactone 100 MG 02/2020 12:00:00 AM EST 1.0 {tablet} active Spironolact one 100 MG eCW1 ([facility]) Furosemide 40 MG Oral Tablet Furosemide 40 MG 07/27/2020 12:00:00 A M EST 1.0 {tablet} active Furosemide 40 MG eCW1 ( [facility]) Ondansetron 4 MG Oral Tablet Ondansetron HCl 4 MG Ondansetro n HCl 4 MG 07/27/2020 12:00:00 AM EST 1.0 {tablet} active Ondansetron HCl 4 MG eCW1 ([facility]) Spironolactone 100 MG Oral Tablet Spironolactone 100 MG 02/2020 12:00:00 AM EST 1.0 {tablet} active Spironolact one 100 MG eCW1 ([facility]) Ondansetron 4 MG Oral Tablet Ondansetron HCl 4 MG Ondansetro n HCl 4 MG 07/27/2020 12:00:00 AM EST 1.0 {tablet} active Ondansetron HCl 4 MG eCW1 ([facility]) Furosemide 40 MG Oral Tablet Furosemide 40 MG 07/27/2020 12:00:00 A M EST 1.0 {tablet} active Furosemide 40 MG eCW1 ( [facility]) Furosemide 40 MG Oral Tablet Furosemide 40 MG 07/27/2020 12:00:00 A M EST 1.0 {tablet} active Furosemide 40 MG eCW1 ( [facility]) Furosemide 40 MG Oral Tablet Furosemide 40 MG 07/27/2020 12:00:00 A M EST 1.0 {tablet} active Furosemide 40 MG eCW1 ( [facility]) Spironolactone 100 MG Oral Tablet Spironolactone 100 MG 02/2020 12:00:00 AM EST 1.0 {tablet} active Spironolact one 100 MG eCW1 ([facility]) Ondansetron 4 MG Oral Tablet Ondansetron HCL 07/23/2020 12:00:00 AM EST completed [facility] ([facility] ) Amitriptyline Hydrochloride 10 MG Oral Tablet Amitript yline HCl 10 MG Amitriptyline HCl 10 MG 06/08/2020 12:00:00 AM EDT 1.0 {tablet_at_b edtime} active Amitriptyline HCl 10 MG e CW1 ([facility]) Amitriptyline Hydrochloride 10 MG Oral Tablet Amitript yline HCl 10 MG Amitriptyline HCl 10 MG 06/08/2020 12:00:00 AM EDT 1.0 {tablet_at_b edtime} active Amitriptyline HCl 10 MG e CW1 ([facility]) Amitriptyline Hydrochloride 10 MG Oral Tablet Amitript yline HCl 10 MG Amitriptyline HCl 10 MG 06/08/2020 12:00:00 AM EDT 1.0 {tablet_at_b edtime} active Amitriptyline HCl 10 MG e CW1 ([facility]) Amitriptyline Hydrochloride 10 MG Oral Tablet Amitript yline HCl 10 MG Amitriptyline HCl 10 MG 06/08/2020 12:00:00 AM EDT 1.0 {tablet_at_b edtime} active Amitriptyline HCl 10 MG e CW1 ([facility]) Vitamin K 1 5 MG Oral Tablet Phytonadione 5 MG Phytonadione 5 MG 05/28/2020 12:00:00 AM EDT 1.0 {tablet} suspended Phytonadione 5 MG eCW1 ([facility]) Vitamin K 1 5 MG Oral Tablet Phytonadione 5 MG Phytonadione 5 MG 05/28/2020 12:00:00 AM EDT 1.0 {tablet} suspended Phytonadione 5 MG eCW1 ([facility]) Vitamin K 1 5 MG Oral Tablet Phytonadione 5 MG Phytonadione 5 MG 05/28/2020 12:00:00 AM EDT 1.0 {tablet} suspended Phytonadione 5 MG eCW1 ([facility]) Vitamin K 1 5 MG Oral Tablet Phytonadione 5 MG Phytonadione 5 MG 05/28/2020 12:00:00 AM EDT 1.0 {tablet} suspended Phytonadione 5 MG eCW1 ([facility]) Vitamin K 1 5 MG Oral Tablet Phytonadione 5 MG Phytonadione 5 MG 05/28/2020 12:00:00 AM EDT 1.0 {tablet} suspended Phytonadione 5 MG eCW1 ([facility]) Vitamin K 1 5 MG Oral Tablet Phytonadione 5 MG Phytonadione 5 MG 05/28/2020 12:00:00 AM EDT 1.0 {tablet} suspended Phytonadione 5 MG eCW1 ([facility]) Vitamin K 1 5 MG Oral Tablet Phytonadione 5 MG Phytonadione 5 MG 05/28/2020 12:00:00 AM EDT 1.0 {tablet} active Ph ytonadione 5 MG eCW1 ([facility]) Vitamin K 1 5 MG Oral Tablet Phytonadione 5 MG Phytonadione 5 MG 05/28/2020 12:00:00 AM EDT 1.0 {tablet} suspended Phytonadione 5 MG eCW1 ([facility]) Vitamin K 1 5 MG Oral Tablet Phytonadione 5 MG Phytonadione 5 MG 05/28/2020 12:00:00 AM EDT 1.0 {tablet} active Ph ytonadione 5 MG eCW1 ([facility]) Hydrocortisone 10 MG Oral Tablet Hydrocortisone 10 MG Oral Tablet (CORTEF) Hydrocortisone 10 MG Oral Tablet (CORTEF) 05/12/2020 12:00:00 AM EDT 10 mg Oral aborted Take 1 tablet by [facility] Hydrocortisone 10 MG Oral Tablet Hydrocortisone 10 MG Oral Tablet (CORTEF) Hydrocortisone 10 MG Oral Tablet (CORTEF) 05/12/2020 12:00:00 AM EDT 10 mg Oral aborted Take 1 tablet by [facility] Melatonin 3 MG Oral Tablet melatonin tablet 3 mg melatonin t ablet 3 mg 05/11/2020 10:00:00 PM EDT 3 mg Oral active 3 mg, Oral, Nightly, First dose on Mon05/11/20 at 2200, For 30 days [facility] Medication administered onsite Promethazine Hydrochloride 25 [...] 15 minutes. Do NOT give IV push.
[facility] Medication administered onsite Meclizine Hydrochloride 12.5 MG Oral Tablet meclizine (ANTIVERT) tablet 12.5 mg meclizine (ANTIVERT) tablet 12.5 mg 05/11/2020 12:10:20 PM EDT 12.5 m g Oral active 12.5 mg, Oral, T hree Times Daily-PRN, Dizziness, Starting Mon05/11/20 at 1210, For 72 hours [facility] Medication administered onsite potassium & sodium phosphates (PHOS-NAK) 280-160-250 MG 2 pa cket [id number] 05/11/2020 09:30:00 AM EDT 2 {packet} Oral active 2 packet, Oral, Four Times Daily-With Meals & Nightly, First dose on Mon05/11/20 at 0930, For 1 day
Dissolve in 75mls of water or juice.
Each 250 mg packet contains: 250 mg (8 mmol) elemental phosphorous, 164 mg (7.1 mEq) sodium, 278 mg (7.1 mEq) potassium.
[facility] Medication administered onsite Hydrocortisone 10 MG Oral Tablet Hydrocortisone 10 MG Oral Tablet (CORTEF) Hydrocortisone 10 MG Oral Tablet (CORTEF) 05/11/2020 12:00:00 AM EDT 10 mg Oral active Take 1 tablet by lisa th every morning [facility] Folic Acid 1 MG Oral Tablet Folic Acid 1 MG Oral Table t (FOLVITE) Folic Acid 1 MG Oral Tablet (FOLVITE) 05/11/2020 12:00:00 AM EDT 1 mg Oral active Take 1 tablet by mouth daily [facility] Calcium Carbonate 1250 MG / Cholecalcife rol 200 UNT Oral Tablet Calcium Carbonate-Vitamin D 500-200 MG-UNIT Oral Tablet (OSCAL-500) Calcium Carbonate- Vitamin D 500-200 MG-UNIT Oral Tablet (OSCAL-500) 05/11/2020 12:00:00 AM EDT 1 {tbl} Oral active Take 1 tablet by mouth d [facility] Thiamine 100 MG Oral Tablet Thiamine HCl 100 MG Oral T ablet (B-1) Thiamine HCl 100 MG Oral Tablet (B-1) 05/11/2020 12:00:00 AM EDT 100 mg Oral active [facility] MG Oral Tablet Ondansetron HCl 4 MG Oral Tablet (ZOFRAN) Ondansetron HCl 4 MG Oral Tablet (ZOFRAN) 05/11/2020 12:00:00 AM EDT 4 mg Oral active Take 1 tablet by mouth every 8 (eight) hours as needed for up to 7 days [facility] Meclizine Hydrochloride 12.5 MG Oral Tab let Meclizine HCl 12.5 MG Oral Tablet (ANTIVERT) Meclizine HCl 12.5 MG Oral Tablet (ANTIVERT) 0 12:00:00 AM EDT 12.5 mg Oral active Take 1 t ablet by mouth Three times daily as needed for Dizziness for up to 10 days [facility] Hydrocortisone 5 MG Oral Tablet Hydrocortisone 5 MG Or al Tablet (CORTEF) Hydrocortisone 5 MG Oral Tablet (CORTEF) 05/11/2020 12:00:00 AM EDT 5 mg Oral active Take 1 tablet by mouth ev rayshawn evening [facility] Hydrocortisone 10 MG Oral Tablet Hydrocortisone 10 MG Oral Tablet (CORTEF) Hydrocortisone 10 MG Oral Tablet (CORTEF) 05/11/2020 12:00:00 AM EDT 10 mg Oral aborted Take 1 tablet by lisa th every morning [facility] Aluminum Hydroxide 40 MG/ML / Magnesium Hydroxide 40 MG/ML / Simethicone 4 MG/ML Oral Suspension Alum & Mag Hydroxide-Simeth 200-200-20 MG/5ML Oral Suspension (MAALOX PLUS) Alum & Mag Hydroxide-Simeth 200-200-20 M G/5ML Oral Suspension (MAALOX PLUS) 05/11/2020 12:00:00 AM EDT 30 mL Oral abor rosa Take 30 mLs by mouth every 6 (six) hours as needed (heartburn) [facility] Aluminum Hydroxide 40 MG/ML / Magnesium Hydroxide 40 MG/ML / Simethicone 4 MG/ML Oral Suspension Alum & Mag Hydroxide-Simeth 200-200-20 MG/5ML Oral Suspension (MAALOX PLUS) Alum & Mag Hydroxide-Simeth 200-200-20 M G/5ML Oral Suspension (MAALOX PLUS) 05/11/2020 12:00:00 AM EDT 30 mL Oral acti ve Take 30 mLs by mouth every 6 (six) hours as needed (heartburn) [facility] Meclizine Hydrochloride 12.5 MG Oral Tab let Meclizine HCl 12.5 MG Oral Tablet (ANTIVERT) Meclizine HCl 12.5 MG Oral Tablet (ANTIVERT) 0 12:00:00 AM EDT 12.5 mg Oral aborted Take 1 t ablet by mouth Three times daily as needed for Dizziness for up to 10 days [facility] Hydrocortisone 5 MG Oral Tablet Hydrocortisone 5 MG Or al Tablet (CORTEF) Hydrocortisone 5 MG Oral Tablet (CORTEF) 05/11/2020 12:00:00 AM EDT 5 mg Oral aborted Take 1 tablet by mouth antwan rayshawn evening [facility] Hydrocortisone 5 MG Oral Tablet Hydrocortisone 5 MG Or al Tablet (CORTEF) Hydrocortisone 5 MG Oral Tablet (CORTEF) 05/11/2020 12:00:00 AM EDT 5 mg Oral aborted Take 1 tablet by mouth [facility] Hydrocortisone 5 MG Oral Tablet Hydrocortisone 5 MG Or al Tablet (CORTEF) Hydrocortisone 5 MG Oral Tablet (CORTEF) 05/11/2020 12:00:00 AM EDT 5 mg Oral aborted Take 1 tablet by mouth [facility] Hydrocortisone 10 MG Oral Tablet hydrocortisone (EDA F) tablet 10 mg hydrocortisone (CORTEF) tablet 10 mg 05/10/2020 09:00:00 AM EDT 10 mg Oral active 10 mg, Oral, Preeti ly Standard, First dose on 05/10/20 at 0900, For 30 days [facility] Medication administered onsite Hydrocortisone 5 MG Oral Tablet hydrocortisone (CORTEF ) tablet 5 mg hydrocortisone (CORTEF) tablet 5 mg 05/09/2020 05:00:00 PM EDT 5 mg Oral active 5 mg, Oral, Daily S tandard, First dose on 05/09/20 at 1700, For 30 days
Take with food.
[facility] Medication administered onsite Oxycodone Hydrochloride 5 [...] only) require Pain Service consultation and approval.
[facility] Medication administered onsite Acetaminophen 325 MG [...] mg from all sources in 24 hours.
[facility] Medication administered onsite ondansetron (ZOFRAN) injection [...] 1223, For 7 days [Order 2 End] [facility] Medication administered onsite iohexol (OMNIPAQUE) 300 MG/ML contrast injection 100 mL 1775 0905/07/2020 09:00:00 PM EDT 100 mL Given by IV completed 100 mL, Given by IV, 1 TIME IMAGING, [facility] 05/07/20 at 2100, For 1 dose [facility] Medication administered onsite iohexol (OMNIPAQUE) 240 MG/ML contrast 20 mL [id number] 06:34:42 PM EDT 20 mL Oral completed 20 mL, Oral, O nce PRN, Contrast, Per Protocol, Starting [facility] 05/07/20 at 1834, For [address] Scanner prior. on call pharmacy technician to CT.Dilute in 500 mL liquid x1 electronics teacher to CT scan - per protocol. Use "Contrast dose chart" link for dosing guidelines.
[facility] Medication administered onsite iohexol (OMNIPAQUE) 240 MG/ML contrast 20 mL [id number] 06:34:42 PM EDT 20 mL Oral completed 20 mL, Oral, O nce PRN, Contrast, Per Protocol, Starting [facility] 05/07/20 at 1834, For [address] to tell RN administration time of first dose. Dilute in 500 mL liquid x1 Now per protocol. Use "Contrast dose chart" link for dosing guidelines.
[facility] Medication administered onsite Magnesium Oxide 400 MG Oral Tablet Magnesium Oxide (MA G-OX) tablet 400 mg Magnesium Oxide (MAG-OX) tablet 400 mg 05/07/2020 02:30:00 PM EDT 4 00 mg Oral completed 400 mg, Oral, D maiday Standard, First dose on Melissa 05/07/20 at 1430, For 5 doses [facility] Medication administered onsite TC-99M mebrofenin (CHOLETEC) [address]-5 05/07/2020 12:30:00 PM EDT Intravenous completed Intravenous, Once, Melissa 05/07/20 at 1230, For 1 dose, Imaging Protocol [facility] Medication administered onsite Glucose 50 MG/ML / Potassium Chloride 0. 02 MEQ/ML / Sodium Chloride 0.154 MEQ/ML Injectable Solution dextrose 5 % and 0.9 % NaCl with KCl 20 mEq infusion dextrose 5 % and 0.9 % NaCl with KCl 20 mEq infusion 05/07/2020 09:00:00 AM EDT Intravenous aborted at 75 mL/hr, Intravenous, Continuous, Starting Melissa 05/07/20 at 0900, For 2 days [facility] Medication administered onsite Potassium Chloride 0.02 MEQ/ML / Sodium Chloride 0.154 MEQ/ML Injectable Solution 0.9 % NaCl with KCl 20 mEq infusion 0.9 % NaCl with KCl 20 mEq infusion 05/07/2020 08:00:00 AM EDT Intravenous aborte d at 75 mL/hr, Intravenous, Continuous, Starting [facility] 05/07/20 at 0800, For 24 hours [facility] Medication administered onsite Lactulose 83.3 MG/ML Oral Solution lactulose (CEPHULAC ) packet 10 g lactulose (CEPHULAC) packet 10 g 05/06/2020 09:30:00 AM EDT 10 g Oral active 10 g, Oral, 2 Times Daily, First dose (after last reorder) on Mon05/06/20 at 0930, For 58 doses
Dissolve in 4 oz water. Can hold if pt has 2 bowel movements in a day.
[facility] Medication administered onsite Promethazine Hydrochloride 25 [...] 15 minutes. Do NOT give IV push.
[facility] Medication administered onsite Calcium Carbonate 1250 MG / Cholecalcife rol 200 UNT Oral Tablet Calcium Carbonate-Vitamin D 500-200 MG-UNIT Oral Tablet (OSCAL-500) Calcium Carbonate- Vitamin D 500-200 MG-UNIT Oral Tablet (OSCAL-500) 05/06/2020 12:00:00 AM EDT 1 {tbl} Oral aborted Take 1 tablet by mouth d [facility] Acetaminophen 325 MG / Hydrocodone George trate 5 MG Oral Tablet HYDROcodone- Acetaminophen 5-325 MG Oral Tablet (LORTAB) HYDROcodone-Acetaminophen 5-325 MG Oral Tablet (LORTAB) 05/06/2020 12:00:00 AM EDT 1 {tbl} Oral aborted Take 1 tablet by mouth every 6 (six) hours as needed for up to 3 days, Max Daily Dose: 4 tablets [facility] Meclizine Hydrochloride 12.5 MG Oral Tab let Meclizine HCl 12.5 MG Oral Tablet (ANTIVERT) Meclizine HCl 12.5 MG Oral Tablet (ANTIVERT) 0 12:00:00 AM EDT 12.5 mg Oral aborted Take 1 t ablet by mouth Three times daily as needed for Dizziness for up to 10 days [facility] Folic Acid 1 MG Oral Tablet Folic Acid 1 MG Oral Table t (FOLVITE) Folic Acid 1 MG Oral Tablet (FOLVITE) 05/06/2020 12:00:00 AM EDT 1 mg Oral aborted Take 1 tablet by mouth daily [facility] Ondansetron 4 MG Oral Tablet Ondansetron HCl 4 MG Oral Tablet (ZOFRAN) Ondansetron HCl 4 MG Oral Tablet (ZOFRAN) 05/06/2020 12:00:00 AM EDT 4 mg Oral aborted Take 1 tablet by mouth every 8 (eight) hours as needed for up to 7 days [facility] Tab-A-Franki/Beta Carotene Oral Tablet 9179-5236-22 05/06/2020 12:00: 00 AM EDT 1 {tbl} Oral aborted Take 1 tablet by mouth d [facility] Thiamine 100 MG Oral Tablet Thiamine HCl 100 MG Oral T ablet (B-1) Thiamine HCl 100 MG Oral Tablet (B-1) 05/06/2020 12:00:00 AM EDT 100 mg Oral aborted Take 1 tablet by mouth daily [facility] magnesium sulfate in dextrose 5 % infusion (premix) 1 g 0409 -6727-05/05/2020 07:00:00 PM EDT 1 g Intravenous completed 1 g, Intravenous, Administer over 60 Minutes, Once, Mon05/05/20 at 1900, For 1 dose [facility] Medication administered onsite potassium chloride (KLOR-CON) packet 40 mEq 6981-4322-33 05/05/2020 07:00:00 PM EDT 40 meq Oral completed 40 mEq , Oral, 2 Times Daily, First dose on Mon05/05/20 at 1900, For 2 doses
Mix in 4 ounces of water or juice
[facility] Medication administered onsite magnesium sulfate in dextrose 5 % infusion (premix) 8 mEq 04 05/05/2020 11:30:00 AM EDT 8 meq Intravenous completed 8 mEq, Intravenous, Administer over 60 Minutes, Once, Mon05/05/20 at 1130, For 1 dose
each 8 mEq equivalent to 1 gm
[facility] Medication administered onsite Acetaminophen 325 MG [...] mg from all sources in 24 hours.
[facility] Medication administered onsite Potassium Chloride 0.02 MEQ/ML / Sodium Chloride 0.154 MEQ/ML Injectable Solution 0.9 % NaCl with KCl 20 mEq infusion 0.9 % NaCl with KCl 20 mEq infusion 05/05/2020 10:00:00 AM EDT Intravenous aborte d at 75 mL/hr, Intravenous, Continuous, Starting Mon05/05/20 at 1000, For 30 days [facility] Medication administered onsite multivitamin tablet 1 tablet [id number] 05/05/2020 09:00:00 AM EDT 1 {tbl} Oral active 1 tablet, Oral , Daily Standard, First dose on Mon05/05/20 at 0900, For 30 days [facility] Medication administered onsite Meclizine Hydrochloride 12.5 MG Oral Tablet meclizine (ANTIVERT) tablet 12.5 mg meclizine (ANTIVERT) tablet 12.5 mg 05/04/2020 07:03:43 PM EDT 12.5 m g Oral completed 12.5 mg, Oral, T hree Times Daily-PRN, Dizziness, Starting 05/04/20 at 1903, For 6 days 15 hours [facility] Medication administered onsite Meclizine Hydrochloride 12.5 MG Oral Tablet meclizine (ANTIVERT) tablet 12.5 mg meclizine (ANTIVERT) tablet 12.5 mg 05/04/2020 01:45:00 AM EDT 12.5 m g Oral completed 12.5 mg, Oral, Once, 04/21 at 0145, For 1 dose [facility] Medication administered onsite Oxazepam 10 MG Oral Capsule oxazepam (SERAX) capsule 1 0 mg oxazepam (SERAX) capsule 10 mg 05/03/2020 02:00:00 PM EDT 10 mg Oral comp leted 10 mg, Oral, Three Times Daily Standard, First dose (after last modification) on 05/03/20 at 1400, For 1 dose [facility] Medication administered onsite potassium chloride (KLOR-CON) packet 40 mEq [id number] 05/02/2020 08:00:00 AM EDT 40 meq Oral completed 40 mEq , Oral, Once, 05/02/20 at 0800, For 1 dose
Mix in 4 ounces of water or juice
[facility] Medication administered onsite Hydroxyzine Pamoate 25 MG Oral Capsule hydrOXYzine ( STARIL) capsule 25 mg hydrOXYzine (VISTARIL) capsule 25 mg 05/01/2020 09:00:00 PM EDT 25 mg Oral completed 25 mg, Oral, Once, Fri at 2100, For 1 dose [facility] Medication administered onsite gabapentin 100 MG Oral Capsule gabapentin (NEURONTIN) capsule 100 mg gabapentin (NEURONTIN) capsule 100 mg 05/01/2020 05:00:00 PM EDT 100 mg Oral aborted 100 mg, Oral, Three Times D aily Standard, First dose on Mon05/01/20 at 1700, For 30 days [facility] Medication administered onsite Potassium Chloride 0.1 MEQ/ML Injectable Solution potassium chloride 10 mEq in 100 mL IVPB (premix) potassium chloride 10 mEq in 100 mL IVPB (premix) 05/01/2020 04:00:00 PM EDT 10 meq Intravenous completed 10 mEq, Intravenous, Every 1 hour, First dose (after last modification) on Mon05/01/20 at 1600, For 2 doses [facility] Medication administered onsite Potassium Chloride 0.1 MEQ/ML Injectable Solution potassium chloride 10 mEq in 100 mL IVPB (premix) potassium chloride 10 mEq in 100 mL IVPB (premix) 05/01/2020 12:00:00 PM EDT 10 meq Intravenous aborted 10 mEq, Intravenous, Every 1 hour, First dose on Mon05/01/20 at 1200, For 4 doses [facility] Medication administered onsite Magnesium Oxide 400 MG Oral Tablet Magnesium Oxide (MA G-OX) tablet 400 mg Magnesium Oxide (MAG-OX) tablet 400 mg 05/01/2020 09:00:00 AM EDT 4 00 mg Oral completed 400 mg, Oral, 2 Times Daily, First dose on Mon05/01/20 at 0900, For 1 dose [facility] Medication administered onsite potassium & sodium phosphates (PHOS-NAK) 280-160-250 MG 1 pa cket [id number] 04/30/2020 05:30:00 PM EDT 1 {packet} Oral completed 1 packet, Oral, Before Meals & Nightly - Four Times Daily, First dose on Mon04/30/20 at 1730, For 1 dose
Dissolve in 75mls of water or juice.
Each 250 mg packet contains: 250 mg (8 mmol) elemental phosphorous, 164 mg (7.1 mEq) sodium, 278 mg (7.1 mEq) potassium.
[facility] Medication administered onsite Calcium Carbonate 1250 MG / Cholecalcife rol 200 UNT Oral Tablet calcium-vitamin D (OSCAL-500) 500-200 MG-UNIT per tablet 1 tablet calcium-vitamin D (OSCAL-500) 500-200 MG-UNIT per tablet 1 tablet 04/30/2020 09:00:00 AM EDT 1 {tbl } Oral active 1 tablet, Oral, Daily Standard, First dose on Melissa 04/30/20 at 0900, For 30 days [facility] Medication administered onsite magnesium sulfate in dextrose 5 % infusion (premix) 8 mEq [id number] 04/29/2020 02:00:00 PM EDT 8 meq Intravenous completed 8 mEq, Intravenous, Administer over 60 Minutes, Once, Mon04/29/20 at 1400, For 1 dose
each 8 mEq equivalent to 1 gm
[facility] Medication administered onsite sodium chloride (preservative free) 0.9 % flush 10 mL 04/29/2020 09:00:00 AM EDT 10 mL Intravenous active [Ord er 1 Start] Name: Midline Catheter Insertion Signed Summary: Routine, ONCE, 04/28/20 at 2354, For 1 occurrence
Reason for [...] Extended Dwell/Midline Peripheral Catheter.
[Order 3 End] [facility] Medication administered onsite Hydroxyzine Hydrochloride 10 MG Oral Tablet hydrOXYzin e (ATARAX) tablet 10 mg hydrOXYzine (ATARAX) tablet 10 mg 04/29/2020 12:30:00 AM EDT 10 mg Oral completed 10 mg, Oral, Once, Mon04/29/20 at 0030, For 1 dose [facility] Medication administered onsite Dextromethorphan Hydrobromide 2 MG/ML / Guaifenesin 20 MG/ML Oral Suspension guaifenesin-dextromethorphan (ROBITUSSIN DM) 100-10 MG/5ML syrup 5 mL guaifenesin-dextromethorphan (ROBITUSSIN DM) 100-10 MG/5ML syrup 5 mL 04/28/2020 07:00:00 PM EDT 5 mL Oral active 5 mL, Oral, Every 4 hours PRN, Cough, Starting Mon04/28/20 at 1900, For 30 days [facility] Medication administered onsite Potassium Chloride 0.1 MEQ/ML Injectable Solution potassium chloride 10 mEq in 100 mL IVPB (premix) potassium chloride 10 mEq in 100 mL IVPB (premix) 04/28/2020 04:00:00 PM EDT 10 meq Intravenous completed 10 mEq, Intravenous, Every 1 hour, First dose (after last reorder) on Mon04/28/20 at 1600, For 4 doses [facility] Medication administered onsite phytonadione (VITAMIN K1) 10 mg in dextrose 5 % 50 mL IVPB 04/28/2020 02:30:00 PM EDT 10 mg Intravenous completed 10 mg, Intravenous, Administer over 15 Minutes, Once, Mon04/28/20 at 1430, For 1 dose [facility] Medication administered onsite Oxycodone Hydrochloride 5 [...] only) require Pain Service consultation and approval.
[facility] Medication administered onsite Oxazepam 10 MG Oral Capsule oxazepam (SERAX) capsule 1 0 mg oxazepam (SERAX) capsule 10 mg 04/27/2020 09:00:00 PM EDT 10 mg Oral abor rosa 10 mg, Oral, Three Times Daily Standard, First dose (after last modification) on Mon04/27/20 at 2100, For 24 doses [facility] Medication administered onsite Lactulose 83.3 MG/ML Oral Solution lactulose (CEPHULAC ) packet 10 g lactulose (CEPHULAC) packet 10 g 04/27/2020 09:00:00 PM EDT 10 g Oral aborted 10 g, Oral, 2 Times Daily, First dose (after last modification) on Mon04/27/20 at 2100, For 58 doses
Dissolve in 4 oz water
[facility] Medication administered onsite sodium chloride (preservative [...] Heparin 10 units/mL to lock. Reference Policy [facility]-34 Central Line Policy.
[Order 1 End] [Order 2 Start] Name: heparin lock flush 10 UNIT/ML injection 20 Units Signed Summary: 20 Units, Intravenous, PRN, Line Care, Starting Mon04/27/20 at 1417, For 30 days
Verify blood return before use. Flush with 10 mL of Sodium Chloride 0.9 % before and after infusions or blood sampling followed-by 2 mL Heparin 10 units/mL to lock.Reference Policy [facility]-34 Central Line Policy.
[Order 2 End] [Order 3 Start] Name: sodium chloride (preservative free) 0.9 % flush 10 mL Signed Summary: 10 mL, Intravenous, Every 12 hours, First dose on Mon04/27/20 at 1430, For 30 days
WHEN NOT IN USE - Verify blood return before use. Flush with 10 mL of Sodium Chloride 0.9 % and 2 mL Heparin 10 units/mL.Reference Policy [facility]-34 Central Line Policy.
[Order 3 End] [Order 4 Start] Name: heparin lock flush 10 UNIT/ML injection 20 Units Signed Summary: 20 Units, Intravenous, Every 12 hours, First dose on Mon04/27/20 at 1430, For 30 days
WHEN NOT IN USE - Verify blood return before use. Flush with 10 mL of Sodium Chloride 0.9 % and 2 mL Heparin 10 units/mL.Reference Policy [id number] Central Line Policy.
[Order 4 End] [facility] Medication administered onsite Potassium Chloride 0.1 MEQ/ML Injectable Solution potassium chloride 10 mEq in 100 mL IVPB (premix) potassium chloride 10 mEq in 100 mL IVPB (premix) 04/27/2020 12:00:00 PM EDT 10 meq Intravenous completed 10 mEq, Intravenous, Administer over 60 Minutes, Every 1 hour, First dose on Mon04/27/20 at 1200, For 4 doses [facility] Medication administered onsite magnesium sulfate in dextrose 5 % infusion (premix) 8 mEq 672704/27/2020 12:00:00 PM EDT 8 meq Intravenous completed 8 mEq, Intravenous, Administer over 60 Minutes, Every 1 hour, First dose on Mon04/27/20 at 1200, For 2 doses
each 8 mEq equivalent to 1 gm
[facility] Medication administered onsite Vitamin K 1 5 MG Oral Tablet phytonadione (MEPHYTON) t ablet 10 mg phytonadione (MEPHYTON) tablet 10 mg 04/27/2020 11:45:00 AM EDT 10 mg Oral completed 10 mg, Oral, Once, Mon04/27/20 at 1145, For 1 dose [facility] Medication administered onsite prednisolone 3 MG/ML Oral Solution predn isoLONE (ORAPRED) 15 MG/5ML solution 40 mg prednisoLONE (ORAPRED) 15 MG/5ML solution 40 mg 04/27/2020 11:45 :00 AM EDT 40 mg Oral aborted 40 mg, Ora l, Daily Standard, First dose on Mon04/27/20 at 1145, For 10 doses [facility] Medication administered onsite Prednisone 20 MG Oral Tablet predniSONE (DELTASONE) ta blet 40 mg predniSONE (DELTASONE) tablet 40 mg 04/27/2020 09:00:00 AM EDT 40 mg Oral aborted 40 mg, Oral, Daily Standard, First dose on Mon04/27/20 at 0900, For 30 days
Take with food.
[facility] Medication administered onsite Lactulose 83.3 MG/ML Oral Solution lactulose (CEPHULAC ) packet 20 g lactulose (CEPHULAC) packet 20 g 04/26/2020 09:00:00 PM EDT 20 g Oral aborted 20 g, Oral, 2 Times Daily, First dose on 04/26/20 at 2100, For 30 days
Dissolve in 4 oz water
[facility] Medication administered onsite Potassium Chloride 0.1 MEQ/ML Injectable Solution potassium chloride 10 mEq in 100 mL IVPB (premix) potassium chloride 10 mEq in 100 mL IVPB (premix) 04/26/2020 09:00:00 PM EDT 10 meq Intravenous completed 10 mEq, Intravenous, Every 1 hour, First dose on 04/26/20 at 2100, For 4 doses [facility] Medication administered onsite Oxazepam 10 MG Oral Capsule oxazepam (SERAX) capsule 2 0 mg oxazepam (SERAX) capsule 20 mg 04/26/2020 04:00:00 PM EDT 20 mg Oral abor rosa 20 mg, Oral, Three Times Daily Standard, First dose (after last modification) on 04/26/20 at 1600, For 18 doses [facility] Medication administered onsite dextrose 5 %-0.9 % sodium chloride infusion [id number] 04/26/2020 02:45:00 PM EDT Intravenous completed at 100 mL/hr, Intravenous, Continuous, Starting 04/26/20 at 1445, For 2 days [facility] Medication administered onsite Vitamin K 1 5 MG Oral Tablet phytonadione (MEPHYTON) t ablet 10 mg phytonadione (MEPHYTON) tablet 10 mg 04/26/2020 01:30:00 PM EDT 10 mg Oral completed 10 mg, Oral, Once, 04/26/20 at 1330, For 1 dose [facility] Medication administered onsite Oxazepam 10 MG Oral Capsule oxazepam (SERAX) capsule 1 0 mg oxazepam (SERAX) capsule 10 mg 04/26/2020 11:30:00 AM EDT 10 mg Oral comp leted 10 mg, Oral, Once, 04/26/20 at 1130, For 1 dose [facility] Medication administered onsite sodium chloride 0.9 % bolus 1,000 mL [id number] 04/26/2020 10:00: 00 AM EDT 1000 mL Intravenous completed 1,000 mL , Intravenous, Once, 04/26/20 at 1000, For 1 dose [facility] Medication administered onsite magnesium sulfate in dextrose 5 % infusion (premix) 8 mEq 04 [id number] 04/26/2020 09:00:00 AM EDT 8 meq Intravenous completed 8 mEq, Intravenous, Administer over 60 Minutes, Every 1 hour, First dose on 04/26/20 at 0900, For 3 doses
each 8 mEq equivalent to 1 gm
[facility] Medication administered onsite Pentoxifylline 400 MG Extended Release O ral Tablet pentoxifylline (TRENTAL) CR tablet 400 mg pentoxifylline (TRENTAL) CR tablet 400 mg 04/25/2020 0 6:00:00 PM EDT 400 mg Oral aborted 400 mg, Oral, Three Times Daily-With Meals, First dose on 04/25/20 at 1800, For 30 days
Take with food.
[facility] Medication administered onsite Oxazepam 10 MG Oral Capsule oxazepam (SERAX) capsule 1 0 mg oxazepam (SERAX) capsule 10 mg 04/25/2020 04:00:00 PM EDT 10 mg Oral abor rosa 10 mg, Oral, Three Times Daily Standard, First dose on 04/25/20 at 1600, For 7 days [facility] Medication administered onsite Potassium Chloride 0.1 MEQ/ML Injectable Solution potassium chloride 10 mEq in 100 mL IVPB (premix) potassium chloride 10 mEq in 100 mL IVPB (premix) 04/25/2020 02:00:00 PM EDT 10 meq Intravenous completed 10 mEq, Intravenous, Every 1 hour, First dose (after last reorder) on 04/25/20 at 1400, For 4 doses [facility] Medication administered onsite sodium chloride 0.9 % 1,000 mL with MVI adult 10 mL, folic acid 1 mg, magnesium sulfate 16 mEq, thiamine (B-1) 100 mg infusion 04/25/2020 09:00:00 AM EDT Intravenous aborted Intravenous, Continuous, Starting 04/25/20 at 0900, For 3 days [facility] Medication administered onsite pantoprazole 4 MG/ML Injectable Solution pantoprazole (PROTONIX) injection 40 mg pantoprazole (PROTONIX) injection 40 mg 04/25/2020 09:00:00 AM EDT 40 mg Intravenous active 40 mg, Intrav enous, Daily Standard, First dose on 04/25/20 at 0900, For 30 days
Dilute with 10 mL of 0.9% NaCl.Give IVP over 2 minutes. Flush before and after.
[facility] Medication administered onsite 0.4 ML Enoxaparin [...] hours after epidural catheter has been removed.
[facility] Medication administered onsite Thiamine 100 MG Oral Tablet thiamine (B-1) tablet 100 mg thiamine (B-1) tablet 100 mg 04/25/2020 09:00:00 AM EDT 100 mg Oral active 100 mg, Oral, Daily Standard, First dose on 04/25/20 at 0900, For 30 days [facility] Medication administered onsite Folic Acid 1 MG Oral Tablet folic acid (FOLVITE) table t 1 mg folic acid (FOLVITE) tablet 1 mg 04/25/2020 09:00:00 AM EDT 1 mg Oral active 1 mg, Oral, Daily Standard, First dose on 04/25/20 at 0900, For 30 days [facility] Medication administered onsite Potassium Chloride 0.1 MEQ/ML Injectable Solution potassium chloride 10 mEq in 100 mL IVPB (premix) potassium chloride 10 mEq in 100 mL IVPB (premix) 04/25/2020 08:00:00 AM EDT 10 meq Intravenous completed 10 mEq, Intravenous, Every 1 hour, First dose on 04/25/20 at 0800, For 4 doses [facility] Medication administered onsite potassium chloride (K-DUR) dissolvable tablet 40 mEq [id number] 04/25/2020 08:00:00 AM EDT 40 meq Oral completed 40 mEq, Oral, Once, 04/25/20 at 0800, For 1 dose
Do not crush or chew
[facility] Medication administered onsite 50 ML Magnesium Sulfate 40 MG/ML Injecti on magnesium sulfate infusion 2 g/50 mL (premix) magnesium sulfate infusion 2 g/50 mL (premix) 04/25/20 08:00:00 AM EDT 16 meq Intravenous completed 16 mEq, Intravenous, Administer over 60 Minutes, Once, 04/25/20 at 0800, For 1 dose
each 8 mEq equivalent to 1 gm
[facility] Medication administered onsite insulin lispro (HumaLOG) injection LOW DOSE EATING INS ULIN patients 1-8 Units [id number] 04/25/2020 08:00:00 AM EDT U Subcutaneous aborted 1-8 Units, Subcutaneous, Three Times Daily-With Meals, First dose on 04/25/20 at 0800, For 30 days
Nursing MUST open the 'SQ Insulin Dosing Charts' Sidebar Report, or, the Patient Summary or Summary Report within the ED.
[facility] Medication administered onsite iohexol (OMNIPAQUE) 300 MG/ML contrast injection 100 mL [id number] 02 04/25/2020 05:45:00 AM EDT 100 mL Given by IV completed 100 mL, Given by IV, 1 TIME IMAGING, 04/25/20 at 0545, For 1 dose [facility] Medication administered onsite lactated ringers bolus 2,000 mL [id number] 04/25/2020 05:00:00 AM EDT 2000 mL Intravenous completed 2,000 mL , Intravenous, Once, 04/25/20 at 0500, For 1 dose [facility] Medication administered onsite diazePAM (VALIUM) injection 10 mg [id number] 04/25/2020 04:00:00 AM EDT 10 mg Intravenous aborted 10 mg, I ntravenous, Every 1 hour, First dose on 04/25/20 at 0400, For 4 doses
Maximum of 40 mg in 4 hour period. If patient is sleeping, do not wake them to administer Diazepam or to assess the CIWA score. Assess once patient awakens.
[facility] Medication administered onsite morphine sulfate (PF) injection 4 mg [id number] 04/25/2020 03:28: 20 AM EDT 4 mg Intravenous aborted 4 mg, In travenous, Every 4 hours PRN, Moderate Pain (Pain Scale Score 4-6), Severe Pain (Pain Scale Score 7-10), Starting 04/25/20 at 0328, For 3 days [facility] Medication administered onsite Calcium Chloride 0.0014 MEQ/ML / Potassi um Chloride 0.004 MEQ/ML / Sodium Chloride 0.103 MEQ/ML / Sodium Lactate 0.028 MEQ/ML Injectable Solution lactated ringers infusion lactated ringers infusion 04/25/2020 03:15:00 AM EDT 100 mL/h Intravenous aborted at 100 m L/hr, Intravenous, Continuous, Starting 04/25/20 at 0315, For 30 days [facility] Medication administered onsite dextrose 50 % IV solution 25 mL [id number] 04/25/2020 03:04:32 AM E DT 25 mL Intravenous active 25 mL, Intrav enous, PRN, Other, blood glucose <55, Starting 04/25/20 at 0304, For 30 days
Not for midline administration.
[facility] Medication administered onsite Glucagon 1 MG Injection glucagon (human recombinant) ( GLUCAGEN) injection 1 mg glucagon (human recombinant) (GLUCAGEN) injection 1 mg 04/25/2020 03:04:32 AM EDT 1 mg Intramuscular active 1 mg, Intramuscular, PRN, for glucose <55 without IV access, Starting 04/25/20 at 0304, For 30 days [facility] Medication administered onsite Glucose 0.417 MG/MG Oral Gel glucose (GLUTOSE) 40 % or al gel 15 g glucose (GLUTOSE) 40 % oral gel 15 g 04/25/2020 03:04:32 AM EDT 15 g Oral active 15 g, Oral, PRN, Low blood s ugar, for gluose 55-69 mg/dl and able to take PO, Starting 04/25/20 at 0304, For 30 days [facility] Medication administered onsite Meclizine Hydrochloride 25 MG Chewable Tablet Meclizin e HCl 25 MG Meclizine HCl 25 MG 02/07/2020 12:00:00 AM EDT 1.0 {tablet_as_needed} active Meclizine HCl 25 MG eCW1 ([facility]) Naltrexone hydrochloride 50 MG Oral Tablet Naltrexone HCl 50 MG Naltrexone HCl 50 MG 02/07/2020 12:00:00 AM EDT 1.0 {tablet} activ e Naltrexone HCl 50 MG eCW1 ([facility]) doxycycline hyclate 50 MG Oral Capsule Doxycycline Hyc late 50 MG Doxycycline Hyclate 50 MG 01/01/2020 12:00:00 AM EDT 1.0 {capsule} active Doxycycline Hyclate 50 MG eCW1 ([facility]) doxycycline hyclate 50 MG Oral Capsule Doxycycline Hyc late 50 MG Doxycycline Hyclate 50 MG 01/01/2020 12:00:00 AM EDT 1.0 {capsule} active Doxycycline Hyclate 50 MG eCW1 ([facility]) doxycycline hyclate 50 MG Oral Capsule Doxycycline Hyc late 50 MG Doxycycline Hyclate 50 MG 01/01/2020 12:00:00 AM EDT 1.0 {capsule} active Doxycycline Hyclate 50 MG eCW1 ([facility]) doxycycline hyclate 50 MG Oral Capsule Doxycycline Hyc late 50 MG Doxycycline Hyclate 50 MG 01/01/2020 12:00:00 AM EDT 1.0 {capsule} active Doxycycline Hyclate 50 MG eCW1 ([facility]) doxycycline hyclate 50 MG Oral Capsule Doxycycline Hyc late 50 MG Doxycycline Hyclate 50 MG 01/01/2020 12:00:00 AM EDT 1.0 {capsule} active Doxycycline Hyclate 50 MG eCW1 ([facility]) doxycycline hyclate 50 MG Oral Capsule Doxycycline Hyc late 50 MG Doxycycline Hyclate 50 MG 01/01/2020 12:00:00 AM EDT 1.0 {capsule} active Doxycycline Hyclate 50 MG eCW1 ([facility]) doxycycline hyclate 50 MG Oral Capsule Doxycycline Hyc late 50 MG Doxycycline Hyclate 50 MG 01/01/2020 12:00:00 AM EDT 1.0 {capsule} active Doxycycline Hyclate 50 MG eCW1 ([facility]) doxycycline hyclate 50 MG Oral Capsule Doxycycline Hyc late 50 MG Doxycycline Hyclate 50 MG 01/01/2020 12:00:00 AM EDT 1.0 {capsule} active Doxycycline Hyclate 50 MG eCW1 ([facility]) doxycycline hyclate 50 MG Oral Capsule Doxycycline Hyc late 50 MG Doxycycline Hyclate 50 MG 01/01/2020 12:00:00 AM EDT 1.0 {capsule} active Doxycycline Hyclate 50 MG eCW1 ([facility]) doxycycline hyclate 50 MG Oral Capsule Doxycycline Hyc late 50 MG Doxycycline Hyclate 50 MG 01/01/2020 12:00:00 AM EDT 1.0 {capsule} active Doxycycline Hyclate 50 MG eCW1 ([facility]) doxycycline hyclate 50 MG Oral Capsule Doxycycline Hyc late 50 MG Doxycycline Hyclate 50 MG 01/01/2020 12:00:00 AM EDT active 1 capsule eCW1 ([facility]) doxycycline hyclate 50 MG Oral Capsule Doxycycline Hyc late 50 MG Doxycycline Hyclate 50 MG 01/01/2020 12:00:00 AM EDT 1.0 {capsule} active Doxycycline Hyclate 50 MG eCW1 ([facility]) Metformin hydrochloride 500 MG Oral Tablet Metformin H Cl 500 MG Metformin HCl 500 MG 11/11/2019 12:00:00 AM EDT active 1 tablet with a meal eCW1 ([facility]) adapalene 1 MG/ML Topical Lotion [Differin] Differin 0.1 % D ifferin 0.1 % 10/14/2019 12:00:00 AM EST active 1 application in the evening eCW1 ([facility]) Clindamycin 10 MG/ML Topical Lotion [Cleocin-T] Cleocin-T 1 % Cleocin-T 1 % 10/14/2019 12:00:00 AM EST active 1 application eCW1 ([facility]) Clindamycin 10 MG/ML Topical Lotion [Cleocin-T] Cleocin-T 1 % Cleocin-T 1 % 10/14/2019 12:00:00 AM EST active 1 application eCW1 ([facility]) adapalene 1 MG/ML Topical Lotion [Differin] Differin 0.1 % D ifferin 0.1 % 10/14/2019 12:00:00 AM EST active 1 application in the evening eCW1 ([facility]) Metformin hydrochloride 500 MG Oral Tabl et metFORMIN HCl 500 MG Oral Tablet (GLUCOPHAGE) metFORMIN HCl 500 MG Oral Tablet (GLUCOPHAGE) 500 m g Oral aborted Take 500 mg by mouth Two times d aily with meals [facility] atorvastatin 20 MG Oral Tablet Atorvastatin Calcium 20 MG Oral Tablet (LIPITOR) Atorvastatin Calcium 20 MG Oral Tablet (LIPITOR) 20 mg Oral aborted Take 20 mg by mouth daily [facility] doxycycline hyclate 100 MG Oral Capsule Doxycycline Hyclate 100 MG Oral Capsule (VIBRAMYCIN) Doxycycline Hyclate 100 MG Oral Capsule (VIBRAMYCIN) 100 mg Oral aborted Take 100 mg by mouth daily For acne [facility] Insurance Providers Payer name Policy type / Coverage type Policy ID Covered republican ID Covered republican's relationship to awan Policy Awan Plan Information [facility] [id number] SP [id number] [address] [facility] O [id number] S [id number] [facility] I [id number] Self [id number] MEDICAID [id number] SP [id number] MEDICAID [id number] ANSI-Not a Secondary Insurance [id number] ANSI-Commercial [id number] ANSI-Medicaid [id number] ANSI-Medicaid [id number] ANSI-Not a Secondary Insurance [id number] ANSI-Commercial [id number] ANSI-Commercial [id number] ANSI-Not a Secondary Insurance [id number] ANSI-Medicaid [id number] ANSI-Commercial [id number] ANSI-Not a Secondary Insurance [id number] ANSI-Medicaid [id number] ANSI-Medicaid [id number] ANSI-Commercial [id number] ANSI-Not a Secondary Insurance [id number] ANSI-Not a Secondary Insurance [id number] ANSI-Medicaid [id number] ANSI-Commercial [id number] SELF PAY ONLY [id number] SP [id number] ANSI-Not a Secondary Insurance [id number] ANSI-Medicaid [id number] ANSI-Commercial [id number] ANSI-Not a Secondary Insurance [id number] ANSI-Medicaid [id number] ANSI-Commercial [id number] ANSI-Medicaid [id number] ANSI-Not a Secondary Insurance [id number] ANSI-Commercial [id number] RAYMOND [id number] SP [id number] ANSI-Medicaid [id number] ANSI-Commercial [id number] ANSI-Medicaid [id number] ANSI-Commercial [id number] ANSI-Commercial [id number] RAYMOND [id number] SP [id number] SELF PAY UNAVAILABLE SP UNAVAILA BLE Problems, Conditions, and Diagnoses Code Display Name Description Problem Type Effective Dates Data Source(s) G62.9 [id number] Peripheral polyneuropathy Problem 07/27/2020 12:00:00 AM EST eCW1 ([facility]) K70.31 [id number] Ascites due to alcoholic cirrhosis Pr oblem 07/27/2020 12:00:00 AM EST eCW1 ([facility]) E80.6 [id number] Hyperbilirubinemia Problem 06/09/2020 12:00: 00 AM EDT eCW1 ([facility]) [id number] Essential hypertension Essential hypertension Problem 05/19/2020 12:00:00 AM EDT DWAINE ([facility]) F10.230 Alcohol dependence with withdrawal, unco mplicated Alcohol dependence with withdrawal, uncomplicated Diagnosis 04/25/2020 03:14:56 AM EDT [facility] K70.10 Alcoholic hepatitis without ascites Alcoholic he patitis without ascites Diagnosis [facility] 04/25/2020 02:36:00 AM ED [facility] obstructive liver obstructive liver Diagnosis 04/25/2020 02:36:00 AM [facility] Surgeries/Procedures Procedure Description Date Indications Data Source(s) POCT GLUCOSE, DOCKED POCT GLUCOSE, DOCKED Routine 05/11/2020 12:32 PM EDT 05/11/2020 12:32:00 PM [facility] POCT GLUCOSE, DOCKED POCT GLUCOSE, DOCKED Routine 05/11/2020 8:31 AM EDT 05/11/2020 08:31:00 AM [facility] PROTHROMBIN TIME PROTIME INR Routine 05/11/2020 4:26 AM EDT 05/11/2020 04:26:00 AM [facility] PHOSPHORUS INORGANIC PHOSPHORUS LEVEL Routine 05/11/2020 4:26 AM E DT 05/11/2020 04:26:00 AM [facility] MAGNESIUM MAGNESIUM LEVEL Routine 05/11/2020 4:26 AM EDT 05/11/2020 04:26:00 AM [facility] HEPATIC FUNCTION PANEL HEPATIC FUNCTION PANEL A Routine 05/11/2020 4:26 AM EDT 05/11/2020 04:26:00 AM EDT [facility] COVID-19 PCR COVID-19 PCR Routine 05/10/2020 10:03 PM EDT 05/10/2020 10:03:00 PM [facility] GLUCOSE QUANTITATIVE BLOOD XCPT REAGENT STRIP POCT GLUCOSE, DOC KED Routine 05/10/2020 9:46 PM EDT 05/10/2020 09:46:00 PM [facility] GLUCOSE QUANTITATIVE BLOOD XCPT REAGENT STRIP POCT GLUCOSE, DOC KED Routine 05/10/2020 4:53 PM EDT 05/10/2020 04:53:00 PM [facility] GLUCOSE QUANTITATIVE BLOOD XCPT REAGENT STRIP POCT GLUCOSE, DOC KED Routine 05/10/2020 12:15 PM EDT 05/10/2020 12:15:00 PM [facility] GLUCOSE QUANTITATIVE BLOOD XCPT REAGENT STRIP POCT GLUCOSE, IVANA TRIMBLE Routine 05/10/2020 8:17 AM EDT 05/10/2020 08:17:00 AM [facility] PROTHROMBIN TIME PROTIME INR Routine 05/10/2020 3:41 AM EDT 05/10/2020 03:41:00 AM [facility] PHOSPHORUS INORGANIC PHOSPHORUS LEVEL Routine 05/10/2020 3:41 AM E DT 05/10/2020 03:41:00 AM [facility] MAGNESIUM MAGNESIUM LEVEL Routine 05/10/2020 3:41 AM EDT 05/10/2020 03:41:00 AM [facility] HEPATIC FUNCTION PANEL HEPATIC FUNCTION PANEL A Routine 05/10/2020 3:41 AM EDT 05/10/2020 03:41:00 AM EDT [facility] GLUCOSE QUANTITATIVE BLOOD XCPT REAGENT STRIP POCT GLUCOSEIVANA Routine 05/09/2020 9:17 PM EDT 05/09/2020 09:17:00 PM [facility] GLUCOSE QUANTITATIVE BLOOD XCPT REAGENT STRIP POCT GLUCOSE, IVANA TRIMBLE Routine 05/09/2020 5:14 PM EDT 05/09/2020 05:14:00 PM [facility] BLOOD COUNT LEUKOCYTE WBC AUTOMATED WBC Routine 05/09/2020 2 :17 PM EDT 05/09/2020 02:17:00 PM [facility] XR CHEST FRONTAL ONLY [id number] XR CHEST FRONTAL ONLY [id number] Urgent 05/09/2020 2:05 PM EDT 05/09/2020 02:05:46 PM EDT [facility] URNLS DIP STICK/TABLET REAGENT AUTO MICROSCOPY URINAL YSIS WITH REFLEX URINE CULTURE Routine 05/09/2020 1:48 PM EDT 05/09/2020 01:48 :00 PM [facility] CULTURE BACTERIAL BLOOD AEROBIC W/ID ISOLATES BLOOD CULTURE R outine 05/09/2020 1:48 PM EDT 05/09/2020 01:48:00 PM EDT [facility] CULTURE BACTERIAL BLOOD AEROBIC W/ID ISOLATES BLOOD CULTURE R outine 05/09/2020 1:48 PM EDT 05/09/2020 01:48:00 PM EDT [facility] GLUCOSE QUANTITATIVE BLOOD XCPT REAGENT STRIP POCT GLUCOSE, DOC KED Routine 05/09/2020 12:22 PM EDT 05/09/2020 12:22:00 PM [facility] CORTISOL TOTAL CORTISOL Routine 05/09/2020 9:49 AM EDT 05/09/2020 09:49:00 AM [facility] GLUCOSE QUANTITATIVE BLOOD XCPT REAGENT STRIP POCT GLUCOSE, DOC KED Routine 05/09/2020 8:18 AM EDT 05/09/2020 08:18:00 AM [facility] PROTHROMBIN TIME PROTIME INR Routine 05/09/2020 4:33 AM EDT 05/09/2020 04:33:00 AM [facility] PHOSPHORUS INORGANIC PHOSPHORUS LEVEL Routine 05/09/2020 4:33 AM E DT 05/09/2020 04:33:00 AM [facility] MAGNESIUM MAGNESIUM LEVEL Routine 05/09/2020 4:33 AM EDT 05/09/2020 04:33:00 AM [facility] CORTISOL TOTAL CORTISOL Routine 05/09/2020 4:33 AM EDT 05/09/2020 04:33:00 AM [facility] HEPATIC FUNCTION PANEL HEPATIC FUNCTION PANEL A Routine 05/09/2020 4:33 AM EDT 05/09/2020 04:33:00 AM EDT [facility] GLUCOSE QUANTITATIVE BLOOD XCPT REAGENT STRIP POCT GLUCOSE, IVANA TRIMBLE Routine 05/08/2020 10:08 PM EDT 05/08/2020 10:08:00 PM [facility] GLUCOSE QUANTITATIVE BLOOD XCPT REAGENT STRIP POCT GLUCOSE, IVANA KED Routine 05/08/2020 4:56 PM EDT 05/08/2020 04:56:00 PM [facility] GLUCOSE QUANTITATIVE BLOOD XCPT REAGENT STRIP POCT GLUCOSE, DOC KED Routine 05/08/2020 12:39 PM EDT 05/08/2020 12:39:00 PM [facility] ACETONE/OTHER KETONE BODIES SERUM QUANTITATIVE BETAHYDROXYBUTYR ATE Routine 05/08/2020 10:29 AM EDT 05/08/2020 10:29:00 AM [facility] BLOOD COUNT COMPLETE AUTOMATED CBC Routine 05/08/2020 10:29 A M EDT 05/08/2020 10:29:00 AM [facility] BASIC METABOLIC PANEL CALCIUM TOTAL BASIC METABOLIC PANEL Routi ne 05/08/2020 10:29 AM EDT 05/08/2020 10:29:00 AM EDT [facility] GLUCOSE QUANTITATIVE BLOOD XCPT REAGENT STRIP POCT GLUCOSE, DOC NAI Routine 05/08/2020 8:37 AM EDT 05/08/2020 08:37:00 AM [facility] PROTHROMBIN TIME PROTIME INR Routine 05/08/2020 5:20 AM EDT 05/08/2020 05:20:00 AM [facility] PHOSPHORUS INORGANIC PHOSPHORUS LEVEL Routine 05/08/2020 5:20 AM E DT 05/08/2020 05:20:00 AM [facility] MAGNESIUM MAGNESIUM LEVEL Routine 05/08/2020 5:20 AM EDT 05/08/2020 05:20:00 AM [facility] HEMOGLOBIN GLYCOSYLATED A1C HEMOGLOBIN A1C Routine 05/08/2020 5:20 AM EDT 05/08/2020 05:20:00 AM [facility] HEPATIC FUNCTION PANEL HEPATIC FUNCTION PANEL A Routine 05/08/2020 5:20 AM EDT 05/08/2020 05:20:00 AM EDT [facility] COVID-19 PCR COVID-19 PCR Routine 05/07/2020 10:39 PM EDT 05/07/2020 10:39:00 PM [facility] GLUCOSE QUANTITATIVE BLOOD XCPT REAGENT STRIP POCT GLUCOSE, DOC NAI Routine 05/07/2020 9:23 PM EDT 05/07/2020 09:23:[address] [facility] [address] ABDOEN & PELVIS W/CONTRAST MATERIAL CT ABDOMEN PELVIS WI TH CONTRAST [id number] Urgent 05/07/2020 9:11 PM EDT 05/07/2020 09:11:44 PM [facility] GLUCOSE QUANTITATIVE BLOOD XCPT REAGENT STRIP POCT GLUCOSE, DOC KEEdmundo Routine 05/07/2020 5:04 PM EDT 05/07/2020 05:04:00 PM [facility] HEPATOBILIARY SYST IMAGING INCLUDING GALLBLADDER NM H EPATOBILIARY IMAGING HIDA [id number] Routine 05/07/2020 12:39 PM EDT 05/07/2020 12:39 :40 PM [facility] GLUCOSE QUANTITATIVE BLOOD XCPT REAGENT STRIP POCT GLUCOSE, DOC NAI Routine 05/07/2020 12:08 PM EDT 05/07/2020 12:08:00 PM [facility] GLUCOSE QUANTITATIVE BLOOD XCPT REAGENT STRIP POCT GLUCOSE, DOC KEEdmundo Routine 05/07/2020 8:17 AM EDT 05/07/2020 08:17:00 AM [facility] GLUCOSE QUANTITATIVE BLOOD XCPT REAGENT STRIP POCT GLUCOSE, IVANA TRIMBLE Routine 05/07/2020 8:16 AM EDT 05/07/2020 08:16:00 AM [facility] BASIC METABOLIC PANEL CALCIUM TOTAL BASIC METABOLIC PANEL Routi ne 05/07/2020 7:57 AM EDT 05/07/2020 07:57:00 AM EDT [facility] PROTHROMBIN TIME PROTIME INR Routine 05/07/2020 4:24 AM EDT 05/07/2020 04:24:00 AM [facility] BLOOD COUNT COMPLETE AUTOMATED CBC Routine 05/07/2020 4:24 A M EDT 05/07/2020 04:24:00 AM [facility] PHOSPHORUS INORGANIC PHOSPHORUS LEVEL Routine 05/07/2020 4:24 AM E DT 05/07/2020 04:24:00 AM [facility] MAGNESIUM MAGNESIUM LEVEL Routine 05/07/2020 4:24 AM EDT 05/07/2020 04:24:00 AM [facility] HEPATIC FUNCTION PANEL HEPATIC FUNCTION PANEL A Routine 05/07/2020 4:24 AM EDT 05/07/2020 04:24:00 AM EDT [facility] GLUCOSE QUANTITATIVE BLOOD XCPT REAGENT STRIP POCT GLUCOSEIVANA Routine 05/06/2020 9:30 PM EDT 05/06/2020 09:30:00 PM [facility] GLUCOSE QUANTITATIVE BLOOD XCPT REAGENT STRIP POCT GLUCOSEIVANA Routine 05/06/2020 5:09 PM EDT 05/06/2020 05:09:[address] [facility] [address] HEAD/BRAIN W/O CONTRAST MATERIAL CT HEAD WITHOUT CONTRAST 70 450 Routine 05/06/2020 4:52 PM EDT 05/06/2020 04:52:18 PM [facility] GLUCOSE QUANTITATIVE BLOOD XCPT REAGENT STRIP POCT GLUCOSEIVANA Routine 05/06/2020 3:50 PM EDT 05/06/2020 03:50:00 PM [facility] ULTRASOUND ABDOMINAL REAL TIME W/IMAGE LIMITED US ABDOMEN L IMITED [id number] Routine 05/06/2020 3:19 PM EDT 05/06/2020 03:19:05 PM [facility] BLOOD COUNT COMPLETE AUTOMATED CBC Routine 05/06/2020 12:47 P M EDT 05/06/2020 12:47:00 PM [facility] GLUCOSE QUANTITATIVE BLOOD XCPT REAGENT STRIP POCT GLUCOSE, IVANA TRIMBLE Routine 05/06/2020 12:29 PM EDT 05/06/2020 12:29:00 PM [facility] GLUCOSE QUANTITATIVE BLOOD XCPT REAGENT STRIP POCT GLUCOSE, IVANA TRIMBLE Routine 05/06/2020 8:29 AM EDT 05/06/2020 08:29:00 AM [facility] PROTHROMBIN TIME PROTIME INR Routine 05/06/2020 4:42 AM EDT 05/06/2020 04:42:00 AM [facility] PHOSPHORUS INORGANIC PHOSPHORUS LEVEL Routine 05/06/2020 4:42 AM E DT 05/06/2020 04:42:00 AM [facility] MAGNESIUM MAGNESIUM LEVEL Routine 05/06/2020 4:42 AM EDT 05/06/2020 04:42:00 AM [facility] HEPATIC FUNCTION PANEL HEPATIC FUNCTION PANEL A Routine 05/06/2020 4:42 AM EDT 05/06/2020 04:42:00 AM EDT [facility] BASIC METABOLIC PANEL CALCIUM TOTAL BASIC METABOLIC PANEL Routi ne 05/06/2020 4:42 AM EDT 05/06/2020 04:42:00 AM EDT [facility] GLUCOSE QUANTITATIVE BLOOD XCPT REAGENT STRIP POCT GLUCOSE, IVANA TRIMBLE Routine 05/06/2020 4:32 AM EDT 05/06/2020 04:32:00 AM [facility] GLUCOSE QUANTITATIVE BLOOD XCPT REAGENT STRIP POCT GLUCOSE, IVANA TRIMBLE Routine 05/05/2020 9:00 PM EDT 05/05/2020 09:00:00 PM [facility] GLUCOSE QUANTITATIVE BLOOD XCPT REAGENT STRIP POCT GLUCOSE, IVANA TRIMBLE Routine 05/05/2020 8:10 PM EDT 05/05/2020 08:10:00 PM [facility] GLUCOSE QUANTITATIVE BLOOD XCPT REAGENT STRIP POCT GLUCOSE, IVANA TRIMBLE Routine 05/05/2020 6:40 PM EDT 05/05/2020 06:40:00 PM [facility] U[facility] COVID-19 PCR [facility] COVID-19 PCR STAT 05/05/2020 6:19 PM EDT 05/05/2020 06:19:00 PM [facility] GLUCOSE QUANTITATIVE BLOOD XCPT REAGENT STRIP POCT GLUCOSE, IVANA TRIMBLE Routine 05/05/2020 5:30 PM EDT 05/05/2020 05:30:00 PM [facility] GLUCOSE QUANTITATIVE BLOOD XCPT REAGENT STRIP POCT GLUCOSE, IVANA TRIMBLE Routine 05/05/2020 5:03 PM EDT 05/05/2020 05:03:00 PM [facility] GLUCOSE QUANTITATIVE BLOOD XCPT REAGENT STRIP POCT GLUCOSE, IVANA TRIMBLE Routine 05/05/2020 5:01 PM EDT 05/05/2020 05:01:00 PM [facility] GLUCOSE QUANTITATIVE BLOOD XCPT REAGENT STRIP POCT GLUCOSE, IVANA TRIMBLE Routine 05/05/2020 12:15 PM EDT 05/05/2020 12:15:00 PM [facility] PHOSPHORUS INORGANIC PHOSPHORUS LEVEL Routine 05/05/2020 8:51 AM E DT 05/05/2020 08:51:00 AM [facility] MAGNESIUM MAGNESIUM LEVEL Routine 05/05/2020 8:51 AM EDT 05/05/2020 08:51:00 AM [facility] COMPREHENSIVE METABOLIC PANEL COMPREHENSIVE METABOLIC PANEL Rou rodney 05/05/2020 8:51 AM EDT 05/05/2020 [facility] XCPT REAGENT STRIP POCT GLUCOSE, IVANA TRIMBLE Routine 05/05/2020 8:35 AM EDT 05/05/2020 08:35:00 AM [facility] GLUCOSE QUANTITATIVE BLOOD XCPT REAGENT STRIP POCT GLUCOSE, IVANA TRIMBLE Routine 05/05/2020 6:16 AM EDT 05/05/2020 06:16:00 AM [facility] PROTHROMBIN TIME PROTIME INR Routine 05/05/2020 4:52 AM EDT 05/05/2020 04:52:00 AM [facility] GLUCOSE QUANTITATIVE BLOOD XCPT REAGENT STRIP POCT GLUCOSE, IVANA TRIMBLE Routine 05/04/2020 11:28 PM EDT 05/04/2020 11:28:00 PM [facility] GLUCOSE QUANTITATIVE BLOOD XCPT REAGENT STRIP POCT GLUCOSE, IVANA TRIMBLE Routine 05/04/2020 10:00 PM EDT 05/04/2020 10:00:00 PM [facility] GLUCOSE QUANTITATIVE BLOOD XCPT REAGENT STRIP POCT GLUCOSE, IVANA TRIMBLE Routine 05/04/2020 9:23 PM EDT 05/04/2020 09:23:00 PM [facility] GLUCOSE QUANTITATIVE BLOOD XCPT REAGENT STRIP POCT GLUCOSE, DOC KED Routine 05/04/2020 9:09 PM EDT 05/04/2020 09:09:00 PM [facility] GLUCOSE QUANTITATIVE BLOOD XCPT REAGENT STRIP POCT GLUCOSE, DOC KED Routine 05/04/2020 8:59 PM EDT 05/04/2020 08:59:00 PM [facility] GLUCOSE QUANTITATIVE BLOOD XCPT REAGENT STRIP POCT GLUCOSE, DOC KED Routine 05/04/2020 4:49 PM EDT 05/04/2020 04:49:00 PM [facility] GLUCOSE QUANTITATIVE BLOOD XCPT REAGENT STRIP POCT GLUCOSE, DOC KED Routine 05/04/2020 12:27 PM EDT 05/04/2020 12:27:00 PM [facility] GLUCOSE QUANTITATIVE BLOOD XCPT REAGENT STRIP POCT GLUCOSE, DOC KED Routine 05/04/2020 8:01 AM EDT 05/04/2020 08:01:00 AM [facility] GLUCOSE QUANTITATIVE BLOOD XCPT REAGENT STRIP POCT GLUCOSE, DOC TOD Routine 05/04/2020 7:59 AM EDT 05/04/2020 07:59:00 AM [facility] PROTHROMBIN TIME PROTIME INR Routine 05/04/2020 6:14 AM EDT 05/04/2020 06:14:00 AM [facility] BILIRUBIN DIRECT BILIRUBIN, DIRECT Routine 05/04/2020 6:14 AM EDT 05/04/2020 06:14:00 AM [facility] COMPREHENSIVE METABOLIC PANEL COMPREHENSIVE METABOLIC PANEL Rou rodney 05/04/2020 6:14 AM EDT 05/04/2020 06:14:00 AM EDT [facility] GLUCOSE QUANTITATIVE BLOOD XCPT REAGENT STRIP POCT GLUCOSE, DOC KED Routine 05/03/2020 9:01 PM EDT 05/03/2020 09:01:00 PM [facility] GLUCOSE QUANTITATIVE BLOOD XCPT REAGENT STRIP POCT GLUCOSE, DOC KED Routine 05/03/2020 4:53 PM EDT 05/03/2020 04:53:00 PM [facility] US RETROPERITONEAL REAL TIME W/IMAGE COMPLETE US RENAL OR A JOSI COMPLETE [id number] Routine 05/03/2020 2:24 PM EDT 05/03/2020 02:24:32 PM [facility] GLUCOSE QUANTITATIVE BLOOD XCPT REAGENT STRIP POCT GLUCOSE, DOC KED Routine 05/03/2020 12:22 PM EDT 05/03/2020 12:22:00 PM [facility] GLUCOSE QUANTITATIVE BLOOD XCPT REAGENT STRIP POCT GLUCOSE, DOC KEEdmundo Routine 05/03/2020 10:20 AM EDT 05/03/2020 10:20:00 AM [facility] GLUCOSE QUANTITATIVE BLOOD XCPT REAGENT STRIP POCT GLUCOSE, IVANA KEEdmundo Routine 05/03/2020 8:51 AM EDT 05/03/2020 08:51:00 AM [facility] GLUCOSE QUANTITATIVE BLOOD XCPT REAGENT STRIP POCT GLUCOSE, IVANA KED Routine 05/03/2020 8:22 AM EDT 05/03/2020 08:22:00 AM [facility] PROTHROMBIN TIME PROTIME INR Routine 05/03/2020 3:53 AM EDT 05/03/2020 03:53:00 AM [facility] PHOSPHORUS INORGANIC PHOSPHORUS LEVEL Routine 05/03/2020 3:53 AM E DT 05/03/2020 03:53:00 AM [facility] BILIRUBIN DIRECT BILIRUBIN, DIRECT Routine 05/03/2020 3:53 AM EDT 05/03/2020 03:53:00 AM [facility] COMPREHENSIVE METABOLIC PANEL COMPREHENSIVE METABOLIC PANEL Rou rodney 05/03/2020 3:53 AM EDT 05/03/2020 03:53:00 AM [facility] GLUCOSE QUANTITATIVE BLOOD XCPT REAGENT STRIP POCT GLUCOSE, IVANA TRIMBLE Routine 05/02/2020 4:59 PM EDT 05/02/2020 04:59:00 PM [facility] URNLS DIP STICK/TABLET REAGENT AUTO MICROSCOPY URINAL YSIS WITH REFLEX URINE CULTURE Routine 05/02/2020 2:30 PM EDT 05/02/2020 02:30 :00 PM [facility] GLUCOSE QUANTITATIVE BLOOD XCPT REAGENT STRIP POCT GLUCOSE, DOC KED Routine 05/02/2020 12:28 PM EDT 05/02/2020 12:28:00 PM [facility] GLUCOSE QUANTITATIVE BLOOD XCPT REAGENT STRIP POCT GLUCOSE, IVANA TRIMBLE Routine 05/02/2020 8:23 AM EDT 05/02/2020 08:23:00 AM [facility] PROTHROMBIN TIME PROTIME INR Routine 05/02/2020 3:30 AM EDT 05/02/2020 03:30:00 AM [facility] PHOSPHORUS INORGANIC PHOSPHORUS LEVEL Routine 05/02/2020 3:30 AM E DT 05/02/2020 03:30:00 AM [facility] MAGNESIUM MAGNESIUM LEVEL Routine 05/02/2020 3:30 AM EDT 05/02/2020 03:30:00 AM [facility] BILIRUBIN DIRECT BILIRUBIN, DIRECT Routine 05/02/2020 3:30 AM EDT 05/02/2020 03:30:00 AM [facility] COMPREHENSIVE METABOLIC PANEL COMPREHENSIVE METABOLIC PANEL Rou rodney 05/02/2020 3:30 AM EDT 05/02/2020 03:30:00 AM EDT [facility] GLUCOSE QUANTITATIVE BLOOD XCPT REAGENT STRIP POCT GLUCOSE, IVANA TRIMBLE Routine 05/01/2020 9:15 PM EDT 05/01/2020 09:15:00 PM [facility] GLUCOSE QUANTITATIVE BLOOD XCPT REAGENT STRIP POCT GLUCOSE, IVANA TRIMBLE Routine 05/01/2020 5:18 PM EDT 05/01/2020 05:18:00 PM [facility] GLUCOSE QUANTITATIVE BLOOD XCPT REAGENT STRIP POCT GLUCOSE, IVANA TRIMBLE Routine 05/01/2020 12:16 PM EDT 05/01/2020 12:16:00 PM [facility] COMPREHENSIVE METABOLIC PANEL COMPREHENSIVE METABOLIC PANEL Rou rodney 05/01/2020 9:54 AM EDT 05/01/2020 [facility] XCPT REAGENT STRIP POCT GLUCOSE, IVANA TRIMBLE Routine 05/01/2020 8:20 AM EDT 05/01/2020 08:20:00 AM [facility] PROTHROMBIN TIME PROTIME INR Routine 05/01/2020 5:09 AM EDT 05/01/2020 05:09:00 AM [facility] PHOSPHORUS INORGANIC PHOSPHORUS LEVEL Routine 05/01/2020 5:09 AM E DT 05/01/2020 05:09:00 AM [facility] MAGNESIUM MAGNESIUM LEVEL Routine 05/01/2020 5:09 AM EDT 05/01/2020 05:09:00 AM [facility] GLUCOSE QUANTITATIVE BLOOD XCPT REAGENT STRIP POCT GLUCOSE, IVANA TRIMBLE Routine 04/30/2020 9:03 PM EDT 04/30/2020 09:03:00 PM [facility] GLUCOSE QUANTITATIVE BLOOD XCPT REAGENT STRIP POCT GLUCOSE, IVANA TRIMBLE Routine 04/30/2020 4:58 PM EDT 04/30/2020 04:58:00 PM [facility] MAGNESIUM MAGNESIUM LEVEL Routine 04/30/2020 3:45 PM EDT 04/30/2020 03:45:00 PM [facility] CALCIUM IONIZED CALCIUM, IONIZED Routine 04/30/2020 3:45 PM EDT 04/30/2020 03:45:00 PM [facility] GLUCOSE QUANTITATIVE BLOOD XCPT REAGENT STRIP POCT GLUCOSE, IVANA TRIMBLE Routine 04/30/2020 12:25 PM EDT 04/30/2020 12:25:00 PM [facility] GLUCOSE QUANTITATIVE BLOOD XCPT REAGENT STRIP POCT GLUCOSE, IVANA TRIMBLE Routine 04/30/2020 12:14 PM EDT 04/30/2020 12:14:00 PM [facility] GLUCOSE QUANTITATIVE BLOOD XCPT REAGENT STRIP POCT GLUCOSE, IVANA TRIMBLE Routine 04/30/2020 8:24 AM EDT 04/30/2020 08:24:00 AM [facility] PROTHROMBIN TIME PROTIME INR Routine 04/30/2020 5:59 AM EDT 04/30/2020 05:59:00 AM [facility] PHOSPHORUS INORGANIC PHOSPHORUS LEVEL Routine 04/30/2020 5:59 AM E DT 04/30/2020 05:59:00 AM [facility] MAGNESIUM MAGNESIUM LEVEL Timed 04/30/2020 5:59 AM EDT 04/30/2020 05:59:00 AM [facility] HEPATIC FUNCTION PANEL HEPATIC FUNCTION PANEL A Routine 04/30/2020 5:59 AM EDT 04/30/2020 05:59:00 AM EDT [facility] BASIC METABOLIC PANEL CALCIUM TOTAL BASIC METABOLIC PANEL Timed 04/30/2020 5:59 AM EDT 04/30/2020 05:59:00 AM EDT [facility] MAGNESIUM MAGNESIUM LEVEL Timed 04/29/2020 5:46 PM EDT 04/29/2020 05:46:00 PM [facility] BASIC METABOLIC PANEL CALCIUM TOTAL BASIC METABOLIC PANEL Timed 04/29/2020 5:46 PM EDT 04/29/2020 05:46:00 PM EDT [facility] GLUCOSE QUANTITATIVE BLOOD XCPT REAGENT STRIP POCT GLUCOSEIVANA Routine 04/29/2020 4:53 PM EDT 04/29/2020 04:53:00 PM [facility] GLUCOSE QUANTITATIVE BLOOD XCPT REAGENT STRIP POCT GLUCOSE, IVANA TRIMBLE Routine 04/29/2020 12:09 PM EDT 04/29/2020 12:09:00 PM [facility] GLUCOSE QUANTITATIVE BLOOD XCPT REAGENT STRIP POCT GLUCOSE, IVANA TRIMBLE Routine 04/29/2020 8:22 AM EDT 04/29/2020 08:22:00 AM [facility] BLOOD COUNT COMPLETE AUTOMATED CBC AND DIFFERENTIAL Routine 04/29/2020 6:20 AM EDT 04/29/2020 06:20:00 AM EDT [facility] COMPREHENSIVE METABOLIC PANEL COMPREHENSIVE METABOLIC PANEL Rou rodney 04/29/2020 6:20 AM EDT 04/29/2020 06:20:00 AM EDT [facility] PROTHROMBIN TIME PROTIME INR Routine 04/29/2020 4:27 AM EDT 04/29/2020 04:27:00 AM [facility] MAGNESIUM MAGNESIUM LEVEL Timed 04/28/2020 10:33 PM EDT 04/28/2020 10:33:00 PM [facility] BASIC METABOLIC PANEL CALCIUM TOTAL BASIC METABOLIC PANEL Timed 04/28/2020 10:33 PM EDT 04/28/2020 10:33:00 PM EDT [facility] GLUCOSE QUANTITATIVE BLOOD XCPT REAGENT STRIP POCT GLUCOSE, IVANA TRIMBLE Routine 04/28/2020 8:52 PM EDT 04/28/2020 08:52:00 PM [facility] GLUCOSE QUANTITATIVE BLOOD XCPT REAGENT STRIP POCT GLUCOSE, IVANA TRIMBLE Routine 04/28/2020 5:16 PM EDT 04/28/2020 05:16:00 PM [facility] ULTRASOUND ABDOMINAL REAL TIME W/IMAGE LIMITED US ABDOMEN LIMIT ED [id number] Urgent 04/28/2020 1:19 PM EDT 04/28/2020 01:19:02 PM [facility] GLUCOSE QUANTITATIVE BLOOD XCPT REAGENT STRIP POCT GLUCOSE, IVANA TRIMBLE Routine 04/28/2020 12:35 PM EDT 04/28/2020 12:35:00 PM [facility] GLUCOSE QUANTITATIVE BLOOD XCPT REAGENT STRIP POCT GLUCOSE, IVANA ARIZAD Routine 04/28/2020 8:30 AM EDT 04/28/2020 08:30:00 AM [facility] BLOOD COUNT COMPLETE AUTOMATED CBC AND DIFFERENTIAL Timed 04/28/2020 8:13 AM EDT 04/28/2020 08:13:00 AM EDT [facility] MAGNESIUM MAGNESIUM LEVEL Timed 04/28/2020 8:13 AM EDT 04/28/2020 08:13:00 AM [facility] HEPATIC FUNCTION PANEL HEPATIC FUNCTION PANEL A Timed 04/28 8:13 AM EDT 04/28/2020 08:13:00 AM EDT [facility] BASIC METABOLIC PANEL CALCIUM TOTAL BASIC METABOLIC PANEL Timed 04/28/2020 8:13 AM EDT 04/28/2020 08:13:00 AM EDT [facility] GLUCOSE QUANTITATIVE BLOOD XCPT REAGENT STRIP POCT GLUCOSE, DOC KED Routine 04/28/2020 7:41 AM EDT 04/28/2020 07:41:00 AM [facility] PROTHROMBIN TIME PROTIME INR Routine 04/28/2020 5:07 AM EDT 04/28/2020 05:07:00 AM [facility] GLUCOSE QUANTITATIVE BLOOD XCPT REAGENT STRIP POCT GLUCOSE, DOC KED Routine 04/27/2020 9:09 PM EDT 04/27/2020 09:09:00 PM [facility] BLOOD COUNT COMPLETE AUTOMATED CBC AND DIFFERENTIAL Timed 04/27/2020 5:47 PM EDT 04/27/2020 05:47:00 PM EDT [facility] THYROID STIMULATING HORMONE TSH TSH Routine 04/27/2020 5:47 PM EDT 04/27/2020 05:47:00 PM [facility] MAGNESIUM MAGNESIUM LEVEL Timed 04/27/2020 5:47 PM EDT 04/27/2020 05:47:00 PM [facility] AMMONIA AMMONIA LEVEL Routine 04/27/2020 5:47 PM EDT 04/27/2020 05:47:00 PM [facility] HEPATIC FUNCTION PANEL HEPATIC FUNCTION PANEL A Timed 04/27 5:47 PM EDT 04/27/2020 05:47:00 PM EDT [facility] [facility] BASIC METABOLIC PANEL CALCIUM TOTAL BASIC METABOLIC PANEL Timed 04/27/2020 5:47 PM EDT 04/27/2020 05:47:00 PM EDT [facility] GLUCOSE QUANTITATIVE BLOOD XCPT REAGENT STRIP POCT GLUCOSE, DOC KED Routine 04/27/2020 4:51 PM EDT 04/27/2020 04:51:00 PM [facility] PICC ULTRASOUND - BEDSIDE PROCEDURE PICC ULTRASOUND - BEDSI DE PROCEDURE Routine 04/27/2020 2:07 PM EDT 04/27/2020 02:07:00 PM [facility] GLUCOSE QUANTITATIVE BLOOD XCPT REAGENT STRIP POCT GLUCOSE, DOC KED Routine 04/27/2020 12:14 PM EDT 04/27/2020 12:14:00 PM [facility] BLOOD COUNT COMPLETE AUTO&AUTO DIFRNTL WBC COUNT CBC AND DIFFER ENTIAL Timed 04/27/2020 8:26 AM EDT 04/27/2020 08:26:00 AM [facility] MAGNESIUM MAGNESIUM LEVEL Timed 04/27/2020 8:26 AM EDT 04/27/2020 08:26:00 AM [facility] HEPATIC FUNCTION PANEL HEPATIC FUNCTION PANEL A Timed 04/27 8:26 AM EDT 04/27/2020 08:26:00 AM [facility] BASIC METABOLIC PANEL CALCIUM TOTAL BASIC METABOLIC PANEL Timed 04/27/2020 8:26 AM EDT 04/27[facility]2020 [facility]LO[facility] XCPT REAGENT STRIP POCT GLUCOSE, IVANA TRIMBLE Routine 04/27/2020 8:15 AM EDT 04/27/2020 08:15:00 AM [facility] PROTHROMBIN TIME PROTIME INR Routine 04/27/2020 3:46 AM EDT 04/27/2020 03:46:00 AM [facility] GLUCOSE QUANTITATIVE BLOOD XCPT REAGENT STRIP POCT GLUCOSE, IVANA TRIMBLE Routine 04/26/2020 9:49 PM EDT 04/26/2020 09:49:00 PM [facility] LACTATE LACTIC ACID LEVEL, PLASMA Routine 04/26/2020 8:18 PM EDT 04/26/2020 08:18:00 PM [facility] GLUCOSE QUANTITATIVE BLOOD XCPT REAGENT STRIP POCT GLUCOSE, DOC NAI Routine 04/26/2020 4:54 PM EDT 04/26/2020 04:54:00 PM [facility] BLOOD COUNT COMPLETE AUTOMATED CBC AND DIFFERENTIAL Timed 04/26/2020 3:52 PM EDT 04/26/2020 [facility]:52[facility] MAGNESIUM LEVEL Timed 04/26/2020 3:52 PM EDT 04/26/2020 03:52:00 PM [facility] LACTATE LACTIC ACID LEVEL, PLASMA Routine 04/26/2020 3:52 PM EDT 04/26/2020 03:52:00 PM [facility] HEPATIC FUNCTION PANEL HEPATIC FUNCTION PANEL A Timed 04/26 3:52 PM EDT 04/26/2020 03:52:00 PM EDT [facility] BASIC METABOLIC PANEL CALCIUM TOTAL BASIC METABOLIC PANEL Timed 04/26/2020 3:52 PM EDT 04/26/2020 03:52:00 PM EDT [facility] GLUCOSE QUANTITATIVE BLOOD XCPT REAGENT STRIP POCT GLUCOSE, DOC KED Routine 04/26/2020 12:24 PM EDT 04/26/2020 12:24:00 PM [facility] PROTHROMBIN TIME PROTIME INR Routine 04/26/2020 10:45 AM EDT 04/26/2020 10:45:00 AM [facility] LACTATE LACTIC ACID LEVEL, PLASMA Routine 04/26/2020 10:45 AM EDT 04/26/2020 10:45:00 AM [facility] AMMONIA AMMONIA LEVEL Routine 04/26/2020 10:45 AM EDT 04/26/2020 10:45:00 AM [facility] URNLS DIP STICK/TABLET REAGENT AUTO MICROSCOPY URINALYSIS W ITH MICROSCOPIC Routine 04/26/2020 9:16 AM EDT 04/26/2020 09:16:00 AM [facility] SODIUM URINE SODIUM, URINE, RANDOM Routine 04/26/2020 9:12 AM EDT 04/26/2020 09:12:00 AM [facility] POTASSIUM URINE POTASSIUM, URINE, RANDOM Routine 04/26/2020 9:12 A M EDT 04/26/2020 09:12:00 AM [facility] OSMOLALITY URINE OSMOLALITY, URINE Routine 04/26/2020 9:12 AM EDT 04/26/2020 09:12:00 AM [facility] GLUCOSE QUANTITATIVE BLOOD XCPT REAGENT STRIP POCT GLUCOSE, DOC KED Routine 04/26/2020 8:34 AM EDT 04/26/2020 08:34:00 AM [facility] BASIC METABOLIC PANEL CALCIUM TOTAL BASIC METABOLIC PANEL Timed 04/26/2020 7:46 AM EDT 04/26/2020 07:46:00 AM EDT [facility] BLOOD COUNT COMPLETE AUTO&AUTO DIFRNTL WBC COUNT CBC AND DIFFER ENTIAL Timed 04/26/2020 7:46 AM EDT 04/26/2020 07:46:00 AM [facility] MAGNESIUM MAGNESIUM LEVEL Timed 04/26/2020 7:46 AM EDT 04/26/2020 07:46:00 AM [facility] HEPATIC FUNCTION PANEL HEPATIC FUNCTION PANEL A Timed 04/26 7:46 AM EDT [facility] XCPT REAGENT STRIP POCT GLUCOSE, DOC TOD Routine 04/25/2020 8:47 PM EDT 04/25/2020 08:47:00 PM [facility] BLOOD COUNT COMPLETE AUTO&AUTO DIFRNTL WBC COUNT CBC AND DIFFER ENTIAL Timed 04/25/2020 5:43 PM EDT 04/25/2020 05:43:00 PM [facility] MAGNESIUM MAGNESIUM LEVEL Timed 04/25/2020 5:29 PM EDT 04/25/2020 05:29:00 PM [facility] LACTATE LACTIC ACID LEVEL, PLASMA Routine 04/25/2020 5:29 PM EDT 04/25/2020 05:29:00 PM [facility] HEPATIC FUNCTION PANEL HEPATIC FUNCTION PANEL A Timed 04/25 5:29 PM EDT 04/25[facility]2020 [facility] CALCIUM TOTAL BASIC METABOLIC PANEL Timed 04/25/2020 5:29 PM EDT 04/25/2020 05:29:00 PM EDT [facility] GLUCOSE QUANTITATIVE BLOOD XCPT REAGENT STRIP POCT GLUCOSE, DOC NAI Routine 04/25/2020 5:08 PM EDT 04/25/2020 05:08:00 PM [facility] GLUCOSE QUANTITATIVE BLOOD XCPT REAGENT STRIP POCT GLUCOSE, DOC KED Routine 04/25/2020 12:05 PM EDT 04/25/2020 12:05:00 PM [facility] EKG 12-LEAD - CMAXX REPORT EKG 12-LEAD - CMAXX REPORT 04/25/2020 10:33 AM EDT 04/25/2020 10:33:52 AM EDT [facility] EKG 12-LEAD - CMAXX REPORT EKG 12-LEAD - CMAXX REPORT 04/25/2020 10:33 AM EDT 04/25/2020 10:33:52 AM EDT [facility] EKG 12-LEAD - CMAXX REPORT EKG 12-LEAD - CMAXX REPORT 04/25/2020 10:30 AM EDT 04/25/2020 10:30:40 AM EDT [facility] EKG 12-LEAD EKG 12-LEAD STAT 04/25/2020 10:30 AM EDT 04/25/2020 10:30:40 AM [facility] CULTURE BACTERIAL BLOOD AEROBIC W/ID ISOLATES BLOOD CULTURE S TAT 04/25/2020 9:59 AM EDT 04/25/2020 09:59:00 AM EDT [facility] GLUTAMYLTRASE GAMMA GAMMA GT Routine 04/25/2020 9:59 AM EDT 04/25/2020 09:59:00 AM [facility] GLUCOSE QUANTITATIVE BLOOD XCPT REAGENT STRIP POCT GLUCOSE, DOC KED Routine 04/25/2020 8:11 AM EDT 04/25/2020 08:11:00 AM [facility] THROMBOPLASTIN TIME PARTIAL PLASMA/WHOLE BLOOD PARTIA L THROMBOPLASTIN TIME (PTT) Routine 04/25/2020 6:06 AM EDT 04/25/2020 06:06 :00 AM [facility] ACUTE HEPATITIS PANEL HEPATITIS PANEL, ACUTE Routine 04/25/2020 6:06 AM EDT 04/25/2020 06:06:[address] [facility] FIBRINOGEN ACTIVITY FIBRINOGEN LEVEL Routine 04/25/2020 6:06 AM ED T 04/25/2020 06:06:00 AM [facility] FIBRIN DGRADJ PRODUCTS D-DIMER QUAL/SEMIQUAN D-DIMER, QUANTITAT LESLIE Routine 04/25/2020 6:06 AM EDT 04/25/2020 06:06:[address] [facility] [address] ABDOEN & PELVIS W/CONTRAST MATERIAL CT ABDOMEN PELVIS WI TH CONTRAST [id number] STAT 04/25/2020 5:54 AM EDT 04/25/2020 05:54:51 AM [facility] XR CHEST FRONTAL ONLY [id number] XR CHEST FRONTAL ONLY [id number] Routine 04/25/2020 5:48 AM EDT 04/25/2020 05:48:59 AM EDT [facility] COVID-19 PCR COVID-19 PCR Routine 04/25/2020 3:59 AM EDT 04/25/2020 03:59:00 AM [facility] URNLS DIP STICK/TABLET REAGENT AUTO MICROSCOPY URINAL YSIS WITH REFLEX URINE CULTURE Routine 04/25/2020 3:59 AM EDT 04/25/2020 03:59 :00 AM [facility] IRON TOTAL FE BINDING CAPACITY Routine 04/25/2020 3:59 AM EDT 04/25/2020 03:59:00 AM [facility] CULTURE BACTERIAL BLOOD AEROBIC W/ID ISOLATES BLOOD CULTURE S TAT 04/25/2020 3:59 AM EDT 04/25/2020 03:59:00 AM EDT [facility] CULTURE BACTERIAL BLOOD AEROBIC W/ID ISOLATES BLOOD CULTURE S TAT 04/25/2020 3:59 AM EDT 04/25/2020 03:59:00 AM EDT [facility] PROTHROMBIN TIME PROTIME INR Routine 04/25/2020 3:59 AM EDT 04/25/2020 03:59:00 AM [facility] BLOOD COUNT COMPLETE AUTOMATED CBC AND DIFFERENTIAL Routine 04/25/2020 3:59 AM EDT 04/25/2020 03:59:00 AM EDT [facility] TROPONIN QUANTITATIVE TROPONIN T Routine 04/25/2020 3:59 AM EDT 04/25/2020 03:59:00 AM [facility] PHOSPHORUS INORGANIC PHOSPHORUS LEVEL Routine 04/25/2020 3:59 AM E DT 04/25/2020 03:59:00 AM [facility] MAGNESIUM MAGNESIUM LEVEL Routine 04/25/2020 3:59 AM EDT 04/25/2020 03:59:00 AM [facility] LIPASE LIPASE LEVEL Routine 04/25/2020 3:59 AM EDT 04/25/2020 03:59:00 AM [facility] LACTATE LACTIC ACID LEVEL, PLASMA Routine 04/25/2020 3:59 AM EDT 04/25/2020 03:59:00 AM [facility] FOLIC ACID SERUM FOLATE Routine 04/25/2020 3:59 AM EDT 04/25/2020 03:59:00 AM [facility] FERRITIN FERRITIN LEVEL Routine 04/25/2020 3:59 AM EDT 04/25/2020 03:59:00 AM [facility] CYANOCOBALAMIN VITAMIN B-12 VITAMIN B12 Routine 04/25/2020 3:59 AM EDT 04/25/2020 03:59:00 AM [facility] COMPREHENSIVE METABOLIC PANEL COMPREHENSIVE METABOLIC PANEL Rou rodney 04/25/2020 3:59 AM EDT 04/25/2020 03:59:00 AM EDT [facility] Virtual Brief Check In by an MD/QHP 11/11/2019 12:00:0 0 AM EDT eCW1 ([facility]) URINE-NO MICRO 10/14/2019 12:00:00 AM EST eCW1 ([facility]) Results ID Date Data Source [id number] 09/08/2020 12:00:00 AM EST [facility] Name Value Range Interpretation Code Description Data Beronica rce(s) Supporting Document(s) SARS-CoV2 Rapid Antigen Negative [facility] This lab was ordered by [facility] and reported by [facility]. ID Date Data Source [id number] 07/20/2020 02:30:00 PM EST [facility] ([facility], ) Name Value Range Interpretation Code Description Data Beronica rce(s) Supporting Document(s) Alt/SGPT 13 U/L 12-78 Normal (applies to non-numeric resul ts) [facility] ([facility], ) Ast/Sgot 29 U/L 7-37 Normal (applies to non-numeric resul ts) [facility] Bilirubin,Direct 1.7 mg/dL 0.0-0.2 Above high normal M [facility] ([facility], ) Bilirubin,Total 3.3 mg/dL 0.2-1.0 Above high normal [facility] ([facility]) Alkaline Phosphatase 101 U/L 45-117 Normal (applies to non-num lev results) [facility] ([facility], ) Total Protein 6.8 GM/DL 6.4-8.2 Normal (applies to non-numeric re sults) [facility] ([facility], ) Albumin/Globulin Ratio 0.7 Normal (applies to non-n umeric results) [facility] ([facility]) Albumin 2.9 GM/DL 3.2-5.2 Below low normal [facility] ( [facility]) ID Date Data Source [id number] 07/08/2020 03:02:09 PM EST [facility] Name Value Range Interpretation Code Description Data Beronica rce(s) Supporting Document(s) Progress Note [facility] UXWAOd7aVvGPHfYh71/DBPmmPREpr3WaUPyfVRu3WOcyYPBwK2DmQND4wD8jHEA0NGvPSeAnKuPrXJX9 lbm [file] fX3YMlGq2nYSSEtm2kvp25rEBzaIYMINaNwGkJd7iFUMPZkJoypFQd2Fav4pdc5NrQp4/Juan Miguel/nhRJ8pf [file] 4uP93Y6kNrqJpTOP5O25CieszW55C7Iq32Vgt9yvWKEG7sYzJ/vp medical/6az04/w04i3GuzFw5EseHgkerKc ZFNWeBYTQpc8g4hPFyB191emT5F1ds8rySyZXxg4r4q7BsyaSSntZ8OBJ7m/IupwZOnTFDxD2scJwgiK lUtDpmfd3RSN+1EcFvXaSuoEAih26C2c+V+QVOA1vh CeH8y5oztmvq/314dP/m9LAy7uDZU1DJ+CZquM/AWROETtUetGiOW1kXgloNNJrWnyai92j6Y055JyjT msZY+otxN7cJ/LPGndYUU9jPReX2PKdUaU4e2ic0qEf9pGR8wWz0sQbKsPNL+sUlMCvP1YsEQG3j2wPz vSA5eK6G2l0L2UqxeuiTQHS948wPFskkgXy7uLIKkk uvsfFI9CqGBVWeVLzPZ1CGlpAo8vXecDku9wsCPgR54SemMlg6AcwH2SqLm053w3Z+oS9853eKcaB1sT +8aPTmg6OFpHM7KwrhDgLpKEfNffuaHtBvrEo+twyNoi07dHECisTBPW7JNCHWhxhWDnMbRQK3kR04Fk bZQ/v0ijD6oBIy4IpGE223bBK2L+to9e1Uontu/2xe zy4IVo5V6calbDEepriSqEorz+ili44VkS3B8sbeGbeaeZjzpeXK0U8u8I4A3TT9h/Ray/ned4gLvffo sHIrGr[facility]+lR3v+W0J6CgBon/kJPeRjNOZAYx3FMGARmP4qx1Wu8/W5n9uqeNxboMGVD9FQiocCBEkhuMW [file] C/z4Wd7HNJ/FerOK0MiTfdHwdfau4Br4+Luis Miguel/Nei3 [file] YkUoVSYLXtXbES8NMXb= ID Date Data Source [facility] 06/18/2020 11:15:08 AM EDT eCW1 ([facility]) Name Value Range Interpretation Code Description Data Beronica rce(s) Supporting Document(s) LRY LIVER US eCW1 ([facility]) ID Date Data Source [id number] 06/16/2020 12:04:00 PM EDT [facility] ([facility]) Name Value Range Interpretation Code Description Data Beronica rce(s) Supporting Document(s) Ast/Sgot 53 U/L 7-37 Above high normal [facility] ([facility]) Bilirubin,Total 2.7 mg/dL 0.2-1.0 Above high normal [facility] ([facility]) Alkaline Phosphatase 103 U/L 45-117 Normal (applies to non-num lev results) [facility] ([facility]) Alt/SGPT 34 U/L 12-78 Normal (applies to non-numeric resul ts) [facility] ([facility]) Total Protein 7.3 GM/DL 6.4-8.2 Normal (applies to non-numeric re sults) [facility] Albumin 2.5 GM/DL 3.2-5.2 Below low normal [facility] ( [facility]) Bilirubin,Direct 2.1 mg/dL 0.0-0.2 Above high normal M [facility] ([facility]) Albumin/Globulin Ratio 0.5 Normal (applies to non-n umeric results) [facility] ([facility]) ID Date Data Source [id number] 05/27/2020 01:05:00 PM EDT [facility] ([facility]) Name Value Range Interpretation Code Description Data Beronica rce(s) Supporting Document(s) Cobalamin (Vitamin B12) [Mass/volume] in Serum or Plasma 1680 pg /mL 247-911 Above high normal [facility] ([facility]) VITAMIN B12 NORMAL RANGE NORMAL 247 - 911 PG/ML INDETERMINATE 211 - 246 PG/ML DEFICIENT LESS THAN 211 PG/ML ID Date Data Source [id number] 05/27/2020 01:05:00 PM EDT [facility] ([facility]) Name Value Range Interpretation Code Description Data Beronica rce(s) Supporting Document(s) Blood Urea Nitrogen 4 mg/dL 7-18 Below low normal [facility] ([facility]) Creatinine For GFR 0.75 mg/dL 0.70-1.30 Normal (applies to non -numeric results) [facility] ([facility]) Glucose, Fasting 78 mg/dL 70-100 Normal (applies to non-numeric results) [facility] ([facility]) Glomerular Filtration Rate Laboratory test result Normal (applies to non- numeric results) [facility] ([facility]) <content>Units are mL/min/1.73 m2</content>
<content></content>
<content>Chronic Kidney Disease Staging per NKF:</content>
<content></content>
<content>Stage I & II GFR >=60 Normal to Mildly Decreased</content>
<content>Stage III GFR 30- 59 Moderately Decreased</content>
<content>Stage IV GFR 15-29 Severely Decreased</content>
<content>Stage V GFR <15 Very Little GFR Left</content>
<content>ESRD GFR <15 on STRUCTURAL [employer] FITTER</content>
<content></content> Sodium Level 140 meq/L 136-145 Normal (applies to non-numeric res ults) [facility]) Potassium Serum 3.6 meq/L 3.5-5.1 Normal (applies to non-numeric results) [facility] ([facility]) Carbon Dioxide Level 25 meq/L 21-32 Normal (applies to non-num lev results) [facility] ([facility]) Anion Gap 7 meq/L 8-16 Below low normal [facility] ( [facility]) Chloride Level 108 meq/L 98-107 Above high normal [facility] ([facility]) Ast/Sgot 93 U/L 7-37 Above high normal [facility] Calcium Level 8.5 mg/dL 8.5-10.1 Normal (applies to non-numeric re sults) [facility] ([facility]) Alt/SGPT 43 U/L 12-78 Normal (applies to non-numeric resul ts) [facility] ([facility]) Bilirubin,Total 3.9 mg/dL 0.2-1.0 Above high normal [facility] ([facility]) Alkaline Phosphatase 131 U/L 45-117 Above high normal [facility] Total Protein 7.1 GM/DL 6.4-8.2 Normal (applies to non-numeric re sults) [facility] ([facility]) Albumin/Globulin Ratio 0.4 Normal (applies to non-n umeric results) [facility] Albumin 2.1 GM/DL 3.2-5.2 Below low normal [facility] ID Date Data Source [id number] 05/27/2020 01:05:[address] [facility] Name Value Range Interpretation Code Description Data Beronica rce(s) Supporting Document(s) aPTT in Platelet poor plasma by Coagulation assay 54.2 s 24.2-38.5 Above high normal [facility] ([facility]) ID Date Data Source [id number] 05/27/2020 01:05:[address] [facility]) Name Value Range Interpretation Code Description Data Beronica rce(s) Supporting Document(s) Prothrombin Time 19.8 s 12.5-14.3 Above high normal [facility] Inr 1.65 Normal (applies to non-numeric resul ts) [facility] ([facility]) THERAPUTIC HUMAN INR VALUES INDICATIONS NORMAL RANGES PROPHYLAXIS/TREATMENT OF: VENOUS THROMBOSIS 2.0-3.0 PULMONARY EMBOLISM 2.0-3.0 PREVENTION OF SYSTEMIC EMBOLISM FROM: TISSUE HEART VALVES 2.0-3.0 ACUTE MYOCARDIAL INFARCTION 2.0-3.0 VALVULAR HEART DISEASE 2.0-3.0 ATRIAL FIBRILLATION 2.0-3.0 MECHANICAL VALVES(HIGH RISK) 2.5-3.5 RECURRENT MYOCARDIAL INFARCTION 2.5-3.5 ID Date Data Source [id number] 05/27/2020 01:05:00 PM EDT [facility] ([facility]) Name Value Range Interpretation Code Description Data Beronica rce(s) Supporting Document(s) White Blood Count 3.8 10 4.0-10.0 Below low normal [facility] ([facility], ) Red Blood Count 3.51 10 4.30-6.10 Below low normal [facility] ([facility]) Hemoglobin 12.1 g/dL 13.5-17.5 Below low normal [facility] ( [facility]) Hematocrit 35.7 % 42.0-52.0 Below low normal [facility] ( [facility]) Mean Corpuscular Volume 101.7 fl 80.0-96.0 Above high normal [facility] ([facility]) Mean Corpuscular Hemoglobin 34.5 pg 27.0-33.0 Above high normal [facility] ([facility]) Red Cell Distribution Width 13.2 % 11.5-14.5 Norm al (applies to non-numeric results) [facility] ([facility]) Platelet Count, Automated 181 10 150-450 Normal (applies to non-numeric results) [facility] ([facility]) Mean Corpuscular HGB Conc 33.9 g/dL 32.0-36.5 Normal (applies to non-numeric results) [facility]) Lymph % 40.3 % 24.0-44.0 Normal (applies to non-numeric resul ts) [facility]) Neutrophils % 45.5 % 36.0-66.0 Normal (applies to non-numeric re sults) [facility]) Eos % 1.3 % 0.0-3.0 Normal (applies to non-numeric resul ts) [facility]) [place] % 11.8 % 0.0-5.0 Above high normal [facility] ([facility], ) Nucleated Red Blood Cell % 0.0 % 0-0 Normal (applies to n on-numeric results) [facility] ([facility], ) Baso % 0.8 % 0.0-1.0 Normal (applies to non-numeric resul ts) [facility] ([facility]) Immature Granulocyte % 0.3 % 0-3.0 Normal (applies to non-n umeric results) [facility] ([facility]) Neutrophils # 1.7 10 1.5-8.5 Normal (applies to non-numeric re sults) [facility] ([facility]) [place] # 0.5 10 0.0-0.8 Normal (applies to non-numeric resul ts) [facility] ([facility]) Lymph # 1.5 10 1.5-5.0 Normal (applies to non-numeric resul ts) [facility] ([facility]) Baso # 0.0 10 0.0-0.2 Normal (applies to non-numeric resul ts) [facility] ([facility]) Eos # 0.1 10 0.0-0.5 Normal (applies to non-numeric resul ts) [facility] ([facility]) ID Date Data Source [id number] 05/12/2020 03:46:39 PM EDT [facility] Name Value Range Interpretation Code Description Data Beronica rce(s) Supporting Document(s) Consultation [facility] TRWVRg1cWdYAMsEo29/ZEAdyCZLle5MeGFygVQu0QBtdPCGbW0SkIHQ4xV8hUNI0FZjDElMmSrRfVHGy lbm [file] AgICAgICAgICAgICAgICAgICAgICAgICAgICAgICAg EAQlEPEeOVPbFRZuAOClBQ0QWATwCQRhOEQyZUWpPCFqIJMeJLBzBETzRMReMCJrBSRnDWKcVYNmEDQp EJJpRWCsPLLiBSHxSRPmGKBlOZKrLYWuUTYpKVFmNVKdVUZsLAHkXYPlBTIvZBEqSOJwDTLiXAVvSH1J ICAgICAgICAgICAgICAgICAgICAgICAgICAgICAgIC AgICAgICAgICAgICAgICAgICAgICAgICAgICAgICAgICAgICAgICAgICAgICAgICAgICAgICAgICAgIC FnZWIwBINsNB4KTYUpPTCvHWFbSQViGQIoFITeDBWgKYPdJBOxAGDeJXHqPMEwSRAoXZDuVZLfBQKwOS AgICAgICAgICAgICAgICAgICAgICAgICAgICAgICAg VYXoKWBtGTHpSFLyZPRkALRoCN4NXTEbOUSyAMYgXFChTKGlXQNzENLlCQVuDNJbMVGnCTDnXPOtVAHo ICAgICAgICAgICAgICAgICAgICAgICAgICAgICAgICAgICAgICAgICAgICAgICAgICAgICAgICAgICAg GG7UBSHeIGZlIGMuYKJzTGVgYWVoEJAtIIByKRZoLR AgICAgICAgICAgICAgICAgICAgICAgICAgICAgICAgICAgICAgICAgICAgICAgICAgICAgICAgICAgIC IoAAObKTKtHMRhRE0GTMCoRPPoYRHgQRJyNHQiFVZqBLQxTVKgIJVrTLAvTTRxFSIxMYItZDAdRMWoYB AgICAgICAgICAgICAgICAgICAgICAgICAgICAgICAg TJOqZKHeIWHfMPOuRCBoAUIuWYCqYA3LVMJiBWQqEERfTNVyPGXvFUCgSUVoUYYyMWWhAJHtEAHwFCMv ICAgICAgICAgICAgICAgICAgICAgICAgICAgICAgICAgICAgICAgICAgICAgICAgICAgICAgICAgICAg TWQpGT3YSSDfTMPmCVVcHFZnQUYoVJKqSRQiJZLtXM AgICAgICAgICAgICAgICAgICAgICAgICAgICAgICAgICAgICAgICAgICAgICAgICAgICAgICAgICAgIC GcATEtEPBkZIPlTWXvPK7WHTQuCQLfHKFtDGHaIJOzKJTeQQWcHBKvLYMqXPYnBOOtOJRmMJBqQPExSX AgICAgICAgICAgICAgICAgICAgICAgICAgICAgICAg WREyQYZzHLVvVYZvSZRxTYKyHLGsTDYfXK2OBM93oVJgf0W2RKAvAZ2cmib/Ba6NXDqmjxOdxXZyQR8M YiPjZC6yij0PBjGvTH1dil3PFGtGSiAkC9Z7dICjTVVkPQATAhXtL38fPOcmHf33CRjwIUXuMdJsJSm8 Ez8MVmLtH7cwRFCwMnY9MNZsTkT8ULDzFdK7ABHrDh OrETNqOVSqPQEwYHBREEK8XNMnXtQqTbBtMCBvBIycPHJGGH0FWwUnI2LnxI59WNiXTj4+DQplbmRvYm oYHjE0QQCji0YdKEm0SB1PFUUwNioln4CiYRCxFLHAPFdxJY3SWDN8CWQtYSXfSp9PHRCaS464dtDeSJ 5OGi0XAqPeMT2otr1FFIUrNHGyBtwMQmo4AMzvGV2T eBMuXZmCv55frRb5btSojBJKYVmfuPWKvU4xPQgiEZTiSUIfMM6yUR0qMUDxWNXyFiJ7XPENJA4GTMYf GZNgrXZoJXXqQXSNKB5DCOjtGHT5YUHbcmDpaOKbKKzzHF7PQWAhhxEzHvnrIOPNJQt+Gb9SSH7zr1Cd KLj6FIBcVH2zcf2PVLuSOcFnH0F8mFQtG5T0OEzeQn 0CFCOzUEGbDavqJBVYMFgoBG6NDO7apqP6IF9OrVTlIYWsZUPvrMGyHPs5C80quNBuHNvtJP1XEXJ+Pi A+Lq3QFLWnWCOoEONfFfGvFJFSQgErG3DpM3TPo4CuX0PdMT24oKutnuQfPWusIU4OSA8sUCHhBNKGAM 9RwVDypF1afcMrYEVrAGGYXhRkS19mhYRmZBOdAGF2 BGBvMz9YRGVuN0ZifpAowDrjvaAmKWOoUHZYXK4ARNhjabUmyKGsqQukYW68gKfbKR2ZPq0YQpSaTP4i eq7RzPOlYt6JIXS2Ur8SARXuLYNpVNQiFZI3WHSlKlOxTEgzXAHqBAVqNRD2PRAoYIEhFO6SZrNuCHHh TUp0WepoOXReFBTerv0JTBTgMLB9BIF1TDQeCNMfIL UgKRfoWEUqXJWjWIF7PZExNGRyRV2PNdGqREYiPZU1CUEsSWXwBBYhww9HJYPaLLLkUbb9POVpURFwOU GlOScqODQkOUV1DmZ1VJMwIKIrPO1VUkQuEIXdUTC2ZiCiWESgODVgyo2EHEEcQMZoVNe0DGKgNUHvSO LhVCutJMTsTUDqTaIiGGJhWRZcJT5MRsAaCOCpJZYk ItXzQFMiWGNdgr6HENOqLCXaWwOlTPCkPUSeXCAxYFbxKIBwQKP9LWPkSHYjYADtCP5NCcCaQULzCVkl HiHkFYAeHXJnva3ZWCSzASMtZpKfITHzFEVnJZTgGYacUOLkUKUoJYW1NQSkKIPqQM8RLpIvFXKhPsH4 EKlvNKJjFVLlfo4FGPMdFOTmWaq9HqNpIKLiWMOzYM ksUNKnIAZtDZY2UBBjEFHvJY9DJmPyZVGhJlLeBaYoTIHsKJMlfs8MMYDvADSwHfXuWHQzPWEqFXPvIW ylGDSeNYSrPoK7NBJdVWIkLZ5FDoZpXOGeCoP9ZRYyNQTrLOHxke1FTMTlPHVqJCW3BEFdCSWdAJGySH rjWBDwCNB8YncnMQDlDLAhUZ2AUiWuAWVhRdI2NJlr TQSiPCNmeu9JJAFaVQTrQRocWAHzLNPkOEEoGVfvIIFkQLO8EOU9YZEjAGRjKI3VXyAnREWpIxViJApl XREsFKRizh7UICJdPYY9SgX5TPRrLAObHUEmUEsqXEOxMCW8WUNjXUNtITYgXP6WAeAcLQXbXPjtMTZs JCFtKCRbre8DFISdIPL8XJW8LCLoOWFsBCKlCAscXX SmRNH8ABd4DVEgFMZnTI9VOuCtTFIxCOt8SESmZSXnSPHtbe2CKYZlWKG0CQAySQRxBXHvZOZhLZyhQE EtYIW3USX5QDFaXHIkAE1KXkMiILVvIARkEyifKJQcYHEbow3BVEWxWOF2RJdcDKWbTPUjBFJiBAnyEJ PbIDJoDuj7HDArEWNnLI2TZrUrQWFgVNJ6GwLxJNTm QPHoxv1XgOXcnEkjro4LTRxUBu6JyAdrQMEoQTxaOw9inGE2CWSaBLXKMg8BczAeSQSxUGEAZMzaEJFu VAN1QWIqMJesTbHmWUT8OUS3CWYpHoZlQ1VlGzN3Q9N8EnO4SQJoDDEsG3NbOSNxULIrUYY0WQX1FOYi GTIdKgL0Hyx+SZ4uAIy+Im1Ak5ErfwM8rtHhHCg0FsV7KJ2MIHONA1GTOa== ID Date Data Source [id number] 05/12/2020 02:35:05 PM EDT [facility] Name Value Range Interpretation Code Description Data Beronica rce(s) Supporting Document(s) Discharge Summary [facility] FBRVPn5mKgWABrZa89/HIFjiDCTxy1ReEAivPKu0MAruQQNcE3TpPZQ6qL9qVAB6HKmDYrXdBzZhYAOx lbm IpSczYQlUkCFYoNasITnZoRVxnQdcjaZMuRJ2YpJA2IXEuL89rMYDqGPTfN2YrYOQ7FVR+Hi1CXSXukR WdWV2ATamM1H4cy1x4Ac1+sY1F5o3uYeWvFvoC/zyRntqR4wt8d2uE+lKapyo38e81inphoi/+JFFaaS neq7Wh0AWJYlUHpDoraG+TTKcU284/gZ5teg1k7l+7 z7XqnwpI+SuySC6CH4oo1P/TXRNB8yKhQp3h//Cfxb20bjk4k/EXcg3tTzqKCqKQQmPGk5Y7vM631Ohf +F0qFc8mRx6etJWDKc9ZuLbUOnV6en9hrbsdxi94DSPCdCMMgJ0AOm1xVnrqPSma0T2J+5bioQ9/eUGm f4MCYpV4IBjHQemZMdq9eytNVapJICliLXUQBpRHlr k33OI90FxMmAvFnhhLO4QIGjldsxNrt1noS9Zsoo3PcM3yRfqC06tYZOFafY7BXvruKEhf1gZWGxqNf8 ret0Fg9WJ/tstFGWTlhoYHuZEGzpzoLC169H6yvqhEgm7818L3XVhtSdXhS+0q4phtv7mKZg3hWy0Ako cLLmR/vZDqjRDkzHXrMKEZQ3wFgvnPINJ/Z4i/g2nK IqMo5RA2cv9qGgBg9hYSW4RnI0c/rVRaReNaazK946lbkCEejiVj+/nRD62JL7PQFa7vxyQIV477lzcp lkuNhiOCD5jOTcuB2cXr8dB72vxkhTEq/I6yykUhGIu3j0A/IC0m6sPzX/hOjCRBVXpbkWnu1hNwiCdA i9A1Dfnd2WVHQknS/SSxwTZRy7Auo1uyXRBOWtwcIQ dHMTwsfCMBMuibDIuI8m8GhUXkzVTqJMyyLQ+jySjnSxvFlvZ7eQw1PIA1K1L66UTaLuYVzbXxWK/Michelle CC3Ne+EZdz9/lD25ODvY2D03QhQAGKRFpaj19RVYV7/eI9cNv4wRoV44zzMi8We+/OL4/FydHh/sXP52 /B79ssRFdhw3Dhz00BuINkJnJY4uBwDCn8Bty2dRJh cJCQD5Q+l75NKaYuyUH6V9Y0rUxs+6CNspMRduLaTKdhKF20Sh3+vIMsqYKtEtjZS4yYXoX0FA5NcBfM xgCNNOkyxzedHiljCfwq1LDOy+6Thwou++XDk4B1sXN1C3WVyHvJWdU9W3MxPBIFcbzzHz+TZGYfXj4H Reer++6Mod1rjf3ZKBSBj9rYmHlQF8Vo+hI1QAe5ZX eWH+hNRwGUGkV0IAIPiM1dJkJhtCmkh322aOCblhZAH81EhEApN3hSRcsRaULShHDlasHN7By2D3aGqN FpZSZ7AW9M3og3963wOpnfS46ml2UX2Pl68byi4kYqrqewStDbLxA71xrmwraEIKGFTYan/Marichuy/TadOA1 [file] dAVa0bK3ePSIcTNzSU3OcjpBdSYoBCMcRVDKgmlwzrQqJxrwn/business unit leader+iN0llms5t0XfOSwTxKkMTE5piYV [file] oBKrQq0VRdEwKEKYNeCiOJ3CIAj= ID Date Data Source [id number] 05/11/2020 12:35:16 PM [facility] Value Range Interpretation Code Description Data Beronica rce(s) Supporting Document(s) Glucose [Mass/volume] in Capillary blood by Glucometer 89 mg/dL 70- 140 [facility] ID Date Data Source [id number] 05/11/2020 08:33:06 AM [facility] Value Range Interpretation Code Description Data Beronica rce(s) Supporting Document(s) Glucose [Mass/volume] in Capillary blood by Glucometer 75 mg/dL 70- 140 [facility] ID Date Data Source [id number] 05/11/2020 04:48:45 AM [facility] Value Range Interpretation Code Description Data Beronica rce(s) Supporting Document(s) Prothrombin time (PT) 20.4 s 12.5-14.9 H [facility] INR in Platelet poor plasma by Coagulation assay 1.71 [facility] Routine intensity oral anticoagulation I NR is typically 2.0-3.0. Target INR must be clinically individualized. ID Date Data Source [id number] 05/11/2020 05:00:59 AM [facility] Value Range Interpretation Code Description Data Beronica rce(s) Supporting Document(s) Albumin [Mass/volume] in Serum or Plasma by Bromocresol green (BCG) dye binding method 2.5 g/dL 3.5-5.2 [facility] Bil[facility].total [Mass/volume] in Serum or Plasma 9.5 mg/dL <1.2 H [facility] Bilirubin.direct [Mass/volume] in Serum or Plasma 6.3 mg/dL <0.3 H [facility] Alkaline phosphatase [Enzymatic activity/volume] in Serum or Plasma 120 U/L 40-129 [facility] Aspartate aminotransferase [Enzymatic activity/volume] in Serum or Plasma 113 U/L <40 H [facility] Alanine aminotransferase [Enzymatic activity/volume] in Seru m or Plasma 59 U/L <41 H [facility] Protein [Mass/volume] in Serum or Plasma 7.3 g/dL 6.4-8.3 [facility] ID Date Data Source [id number] 05/11/2020 05:00:[address] [facility] Name Value Range Interpretation Code Description Data Beronica rce(s) Supporting Document(s) Phosphate [Mass/volume] in Serum or Plasma 2.0 mg/dL 2.5-4.5 L [facility] ID Date Data Source [id number] 05/11/2020 05:00:[address] [facility] Name Value Range Interpretation Code Description Data Beronica rce(s) Supporting Document(s) Magnesium [Mass/volume] in Serum or Plasma 1.9 mg/dL 1.6-2.6 [facility] ID Date Data Source [id number] 05/10/2020 11:05:42 PM [facility] Cmnt XXX-Imp : NoneMicroorganism XXX Cult : 2019 nCoV Real-Time RT-PCR: NOT DETECTEDTest performed using [employer] Respiratory Panel. This test is only for use under Food and Drug Administration's Emergency Use Authorization.Additional information is available on the following FDA websites for health care providers and patients. https://www.fda.gov/media/475071/download , https://www.fda.gov/me tin/181791/downloadPolymerase chain reaction is NEGATIVE for Influenza A H1, H3 and 2009 H1 viruses, Influenza B virus, Respiratory syncytial virus, Human metapneumovirus, Parainfluenza virus 1,2,3 and 4, Adenovirus, Rhinovirus/ Enterovirus, Coronavirus HKU1, NL63, OC43 and 229E, Bordetella pertussis, B. parapertussis, Mycoplasma pneumoniae and Chlamydia pneumoniae. Name Value Range Interpretation Code Description Data Beronica rce(s) Supporting Document(s) ID Date Data Source [id number] 05/10/2020 10:03:00 PM [facility] Cmnt XXX-Imp : NoneMicroorganism XXX Cult : 2019 nCoV Real-Time RT-PCR: NOT DETECTEDTest performed using [employer] Respiratory Panel. This test is only for use under Food and Drug Administration's Emergency Use Authorization.Additional information is available on the following FDA websites for health care providers and patients. https://www.fda.gov/media/294942/download , https://www.fda.gov/nd tin/322145/downloadPolymerase chain reaction is NEGATIVE for Influenza A H1, H3 and 2009 H1 viruses, Influenza B virus, Respiratory syncytial virus, Human metapneumovirus, Parainfluenza virus 1,2,3 and 4, Adenovirus, Rhinovirus/ Enterovirus, Coronavirus HKU1, NL63, OC43 and 229E, Bordetella pertussis, B. parapertussis, Mycoplasma pneumoniae and Chlamydia pneumoniae. Name Value Range Interpretation Code Description Data Beronica rce(s) Supporting Document(s) Microorganism identified in Unspecified specimen by [facility] This lab was ordered by [facility] and reported by [facility]. ID Date Data Source [id number] 05/10/2020 10:11:33 PM [facility] Value Range Interpretation Code Description Data Beronica rce(s) Supporting Document(s) Glucose [Mass/volume] in Capillary blood by Glucometer 138 mg/dL 70- 140 [facility] ID Date Data Source [id number] 05/10/2020 04:59:54 PM [facility] Value Range Interpretation Code Description Data Beronica rce(s) Supporting Document(s) Glucose [Mass/volume] in Capillary blood by Glucometer 150 mg/dL 70- 140 H [facility] ID Date Data Source [id number] 05/10/2020 12:19:55 PM [facility] Value Range Interpretation Code Description Data Beronica rce(s) Supporting Document(s) Glucose [Mass/volume] in Capillary blood by Glucometer 103 mg/dL 70- 140 [facility] ID Date Data Source [id number] 05/10/2020 08:24:00 AM [facility] Value Range Interpretation Code Description Data Beronica rce(s) Supporting Document(s) Glucose [Mass/volume] in Capillary blood by Glucometer 79 mg/dL - 140 [facility] ID Date Data Source [id number] 05/10/2020 04:28:28 AM [facility] Value Range Interpretation Code Description Data Beronica rce(s) Supporting Document(s) Prothrombin time (PT) 21.4 s 12.5-14.9 H [facility] INR in Platelet poor plasma by Coagulation assay 1.82 [facility] Routine intensity oral anticoagulation I NR is typically 2.0-3.0. Target INR must be clinically individualized. ID Date Data Source [id number] 05/10/2020 04:39:11 AM [facility] Value Range Interpretation Code Description Data Beronica rce(s) Supporting Document(s) Albumin [Mass/volume] in Serum or Plasma by Bromocresol green (BCG) dye binding method 2.3 g/dL 3.5-5.2 [facility] Bil[facility].total [Mass/volume] in Serum or Plasma 10.2 mg/dL <1.2 H [facility] Bilirubin.direct [Mass/volume] in Serum or Plasma 7.3 mg/dL <0.3 H [facility] Alkaline phosphatase [Enzymatic activity/volume] in Serum or Plasma 109 U/L 40-129 [facility] Aspartate aminotransferase [Enzymatic activity/volume] in Serum or Plasma 109 U/L <40 H [facility] Alanine aminotransferase [Enzymatic activity/volume] in Seru m or Plasma 53 U/L <41 H [facility] Protein [Mass/volume] in Serum or Plasma 6.5 g/dL 6.4-8.3 [facility] ID Date Data Source [id number] 05/10/2020 04:39:11 AM [facility] Value Range Interpretation Code Description Data Beronica rce(s) Supporting Document(s) Magnesium [Mass/volume] in Serum or Plasma 1.8 mg/dL 1.6-2.6 [facility] ID Date Data Source [id number] 05/10/2020 04:39:11 AM [facility] Value Range Interpretation Code Description Data Beronica rce(s) Supporting Document(s) Phosphate [Mass/volume] in Serum or Plasma 2.7 mg/dL 2.5-4.5 [facility] ID Date Data Source [id number] 05/09/2020 09:39:53 PM [facility] Value Range Interpretation Code Description Data Beronica rce(s) Supporting Document(s) Glucose [Mass/volume] in Capillary blood by Glucometer 89 mg/dL 70- 140 [facility] ID Date Data Source [id number] 05/12/2020 07:06:04 PM EDT [facility] Name Value Range Interpretation Code Description Data Beronica rce(s) Supporting Document(s) Corticotropin [Mass/volume] in Plasma 13.7 pg/mL 7.2-63.3 [facility] (NOTE)ACTH reference interval for sample s collected between 7 and 10 AM.Performed At: RN [facility] [id number] [place], [place] [id number] Aguiar MD Ph:[phone] ID Date Data Source [id number] 05/09/2020 05:17:06 PM EDT [facility] Name Value Range Interpretation Code Description Data Beronica rce(s) Supporting Document(s) Glucose [Mass/volume] in Capillary blood by Glucometer 101 mg/dL 70- 140 [facility] ID Date Data Source [id number] 05/09/2020 02:41:59 PM EDT [facility] XR CHEST FRONTAL ONLY [id number] RESULTI nterpreted by:Rick Langley [facility]: Exam: XR Chest, 1 View Exam date and time: 05/09/2020 1:44 PM Age: 49 years old Clinical indication: Alcohol dependence with withdrawal, uncomplicated; Alcoholic hepatitis without ascites; Chest pain; Type not specified; Additional info: Evaluation for fever TECHNIQUE: Imaging protocol: XR of the chest Views: 1 view. COMPARISON: CR XR CHEST FRONTAL ONLY [id number] PORTABLE 04/25/2020 5:22 AM FINDINGS: Tubes, catheters [...] rce(s) Supporting Document(s) ID Date Data Source [id number] 05/09/2020 02:53:34 PM EDT [facility] Name Value Range Interpretation Code Description Data Beronica rce(s) Supporting Document(s) Leukocytes [#/volume] in Blood by Automated count 7.1 10*3/uL 4-10 [facility] ID Date Data Source [id number] 05/14/2020 11:01:00 AM EDT [facility] Service Cmnt XXX-Imp : LEFT HANDMicroorg anism XXX Cult : No growth 5 days Name Value Range Interpretation Code Description Data Beronica rce(s) Supporting Document(s) ID Date Data Source [id number] 05/14/2020 11:01:00 AM EDT [facility] Service Cmnt XXX-Imp : RT HANDMicroorga nism XXX Cult : No growth 5 days Name Value Range Interpretation Code Description Data Beronica rce(s) Supporting Document(s) ID Date Data Source [id number] 05/09/2020 03:30:35 PM EDT [facility] Name Value Range Interpretation Code Description Data Beronica rce(s) Supporting Document(s) Color of Urine [facility] Clarity of Urine [facility] Specific gravity of Urine by Refractometry automated 1.008 1.003 -1.030 [facility] pH of Urine by Automated test strip 6.0 5.0-8.0 [facility] Protein [Mass/volume] in Urine by Automated test strip Neg [facility] Glucose [Mass/volume] in Urine by Automated test strip Neg [facility] Ketones [Mass/volume] in Urine by Automated test strip Neg [facility] Bilirubin.total [Presence] in Urine by Automated test strip Negative [facility] False-positive results may occur with ce rtain food additives or medications. Hemoglobin [Presence] in Urine by Automated test strip Neg ative A [facility] Leukocyte esterase [Presence] in Urine by Automated test strip Negative [facility] Nitrite [Presence] in Urine by Automated test strip Negati [facility] Leukocytes [#/area] in Urine sediment by Automated count 1 /HPF 0 -5 [facility] Erythrocytes [#/area] in Urine sediment by Automated count 1 /HPF 0-3 [facility] Service comment [facility] Bacteria [#/area] in Urine sediment by Automated count Non e [facility] Mucus [#/area] in Urine sediment by Microscopy low power field None [facility] ID Date Data Source [id number] 05/09/2020 12:29:24 PM [facility] Value Range Interpretation Code Description Data Beronica rce(s) Supporting Document(s) Glucose [Mass/volume] in Capillary blood by Glucometer 76 mg/dL 70- 140 [facility] ID Date Data Source [id number] 05/09/2020 10:33:47 AM [facility] Value Range Interpretation Code Description Data Beronica rce(s) Supporting Document(s) Cortisol [Mass/volume] in Serum or Plasma 5.8 ug/dL [facility] Ref range for 6-10 am samples: 6.0-18.4 ug/dLRef range for 4-8 pm samples: 2.7- 10.5 ug/dLRef range not established for other times. ID Date Data Source [id number] 05/09/2020 08:35:41 AM [facility] Value Range Interpretation Code Description Data Beronica rce(s) Supporting Document(s) Glucose [Mass/volume] in Capillary blood by Glucometer 73 mg/dL 70- 140 [facility] ID Date Data Source [id number] 05/09/2020 05:00:14 AM [facility] Value Range Interpretation Code Description Data Beronica rce(s) Supporting Document(s) Prothrombin time (PT) 20.6 s 12.5-14.9 H [facility] INR in Platelet poor plasma by Coagulation assay 1.74 [facility] Routine intensity oral anticoagulation I NR is typically 2.0-3.0. Target INR must be clinically individualized. ID Date Data Source [id number] 05/09/2020 05:22:16 AM [facility] Value Range Interpretation Code Description Data Beronica rce(s) Supporting Document(s) Phosphate [Mass/volume] in Serum or Plasma 3.2 mg/dL 2.5-4.5 [facility] ID Date Data Source [id number] 05/09/2020 05:22:16 AM [facility] Value Range Interpretation Code Description Data Beronica rce(s) Supporting Document(s) Cortisol [Mass/volume] in Serum or Plasma 2.9 ug/dL [facility] Ref range for 6-10 am samples: 6.0-18.4 ug/dLRef range for 4-8 pm samples: 2.7- 10.5 ug/dLRef range not established for other times. ID Date Data Source [id number] 05/09/2020 05:22:16 AM [facility] Value Range Interpretation Code Description Data Beronica rce(s) Supporting Document(s) Albumin [Mass/volume] in Serum or Plasma by Bromocresol green (BCG) dye binding method 2.4 g/dL 3.5-5.2 [facility] Bilirubin.total [Mass/volume] in Serum or Plasma 11.7 mg/dL <1.2 H [facility] Bilirubin.direct [Mass/volume] in Serum or Plasma 8.4 mg/dL <0.3 H [facility] Alkaline phosphatase [Enzymatic activity/volume] in Serum or Plasma 117 U/L 40-129 [facility] Aspartate aminotransferase [Enzymatic activity/volume] in Serum or Plasma 111 U/L <40 H [facility] Alanine aminotransferase [Enzymatic activity/volume] in Seru m or Plasma 55 U/L <41 H [facility] Protein [Mass/volume] in Serum or Plasma 6.5 g/dL 6.4-8.3 [facility] ID Date Data Source [id number] 05/09/2020 05:22:16 AM [facility] Value Range Interpretation Code Description Data Beronica rce(s) Supporting Document(s) Magnesium [Mass/volume] in Serum or Plasma 1.6 mg/dL 1.6-2.6 [facility] ID Date Data Source [id number] 05/08/2020 10:13:14 PM [facility] Value Range Interpretation Code Description Data Beronica rce(s) Supporting Document(s) Glucose [Mass/volume] in Capillary blood by Glucometer 101 mg/dL 70- 140 [facility] ID Date Data Source [id number] 05/08/2020 05:11:07 PM [facility] Value Range Interpretation Code Description Data Beronica rce(s) Supporting Document(s) Glucose [Mass/volume] in Capillary blood by Glucometer 90 mg/dL 70- 140 [facility] ID Date Data Source [id number] 05/08/2020 12:44:26 PM [facility] Value Range Interpretation Code Description Data Beronica rce(s) Supporting Document(s) Glucose [Mass/volume] in Capillary blood by Glucometer 104 mg/dL 70- 140 [facility] ID Date Data Source [id number] 05/14/2020 05:06:17 PM [facility] Value Range Interpretation Code Description Data Beronica rce(s) Supporting Document(s) Glucagon [Mass/volume] in Serum or Plasma 125 pg/mL 50-150 [facility] (NOTE)Results of this test are labeled f or research purposes only by theassay's charge coordinator. The performance characteristics of this assayhave not been established by the charge coordinator. The result shouldnot be used for treatment or for diagnostic purposes withoutconfirmation of the diagnosis by another medically establisheddiagnostic product or procedure. The performance characteristics weredetermined by [facility].Performed At: [address] [id number] Brown MD Ph:[phone] ID Date Data Source [id number] 05/12/2020 09:10:10 AM [facility] Value Range Interpretation Code Description Data Beronica rce(s) Supporting Document(s) C peptide [Mass/volume] in Serum or Plasma 4.7 ng/mL 0.8-5.2 [facility] ID Date Data Source [id number] 05/16/2020 01:06:15 PM [facility] Value Range Interpretation Code Description Data Beronica rce(s) Supporting Document(s) Insulin Ab [Units/volume] in Serum 13 uU/mL [facility] (NOTE)This test is also known as insulin autoantibody or IAA.This test was developed and its performance characteristicsdetermined by [facility]. It has not been cleared or approvedby the Food and Drug Administration.Reference Range:<5.0 Negative> or = 5.0 PositivePerformed At: [facility] [id number] [place], [place] [id number] Dang MD Ph:[phone] ID Date Data Source [id number] 05/08/2020 10:59:11 AM [facility] Value Range Interpretation Code Description Data Beronica rce(s) Supporting Document(s) Leukocytes [#/volume] in Blood by Automated count 7.2 10*3/uL 4-10 [facility] Erythrocytes [#/volume] in Blood by Automated count 2.77 10*6/uL 4.6- 6.1 L [facility] Hemoglobin [Mass/volume] in Blood 10.1 g/dL 13.5-18 L [facility] Hematocrit [Volume Fraction] of Blood by Automated count 29.4 % 4 1-53 L [facility] Erythrocyte mean corpuscular volume [Entitic volume] b y Automated count 106.0 fL 80-96 H [facility] Erythrocyte mean corpuscular hemoglobin [Entitic mass] by Automated count 36.4 pg 27-33 H [facility] Erythrocyte mean corpuscular hemoglobin concentration [Mass/volume] by Automated count 34.3 g/dL 32.0-36.0 [facility] distribution width [Ratio] by Automated count 15.5 % 11.5-14.5 H [facility] Platelets [#/volume] in Blood by Automated count 98 10*3/uL 150-400 L [facility] ID Date Data Source [id number] 05/08/2020 11:19:[address] [facility] Name Value Range Interpretation Code Description Data Beronica rce(s) Supporting Document(s) Beta hydroxybutyrate [Moles/volume] in Serum or Plasma 0.09 mmol/L <0 .60 [facility] (NOTE) <0.60 Normal 0.60-1.50 May indicate the development of a problem >1.50 At risk for DKA ID Date Data Source [id number] 05/08/2020 11:19:32 AM [facility] Value Range Interpretation Code Description Data Beronica rce(s) Supporting Document(s) Bicarbonate [Moles/volume] in Serum 22 mmol/L 22-29 [facility] Chloride [Moles/volume] in Serum or Plasma 99 mmol/L 98-107 [facility] Creatinine [Mass/volume] in Serum or Plasma 0.44 mg/dL 0.70-1.20 [facility] IctericConfirmed Glucose [Mass/volume] in Serum or Plasma 105 mg/dL 70-140 [facility] Potassium [Moles/volume] in Serum or Plasma 3.7 mmol/L 3.4-5.1 [facility] Sodium [Moles/volume] in Serum or Plasma 129 mmol/L 136-145 [facility] Urea nitrogen [Mass/volume] in Serum or Plasma 6 mg/dL 6-20 [facility] Anion gap 3 in Serum or Plasma 9 mmol/L 8-15 [facility] Osmolality of Serum or Plasma by calculation 266 mosm/kg 275-300 L [facility] Creatinine/Urea nitrogen [Mass Ratio] in Serum or Plasma 14 [facility] Calcium [Mass/volume] in Serum or Plasma 7.9 mg/dL 8.6-10.0 L [facility] Glomerular filtration rate/1.73 sq M pre dicted among non-blacks [Volume Rate/Area] in Serum or Plasma by Creatinine-based formula (MDRD) >6 0 [facility] Glomerular filtration rate/1.73 sq M pre dicted among blacks [Volume Rate/Area] in Serum or Plasma by Creatinine-based formula (MDRD) >60 [facility] ID Date Data Source [id number] 05/08/2020 08:49:[address] [facility] Name Value Range Interpretation Code Description Data Beronica rce(s) Supporting Document(s) Glucose [Mass/volume] in Capillary blood by Glucometer 70 mg/dL 70- 140 [facility] ID Date Data Source [id number] 05/08/2020 05:57:47 AM [facility] Value Range Interpretation Code Description Data Beronica rce(s) Supporting Document(s) Prothrombin time (PT) 21.5 s 12.5-14.9 H [facility] INR in Platelet poor plasma by Coagulation assay 1.83 [facility] Routine intensity oral anticoagulation I NR is typically 2.0-3.0. Target INR must be clinically individualized. ID Date Data Source [id number] 05/08/2020 05:59:51 AM [facility] Value Range Interpretation Code Description Data Beronica rce(s) Supporting Document(s) Albumin [Mass/volume] in Serum or Plasma by Bromocresol green (BCG) dye binding method 2.2 g/dL 3.5-5.2 [facility] Bilirubin.total [Mass/volume] in Serum or Plasma 12.9 mg/dL <1.2 H [facility] Bilirubin.direct [Mass/volume] in Serum or Plasma 9.0 mg/dL <0.3 H [facility] Alkaline phosphatase [Enzymatic activity/volume] in Serum or Plasma 115 U/L 40-129 [facility] Aspartate aminotransferase [Enzymatic activity/volume] in Serum or Plasma 111 U/L <40 H [facility] Alanine aminotransferase [Enzymatic activity/volume] in Seru m or Plasma 57 U/L <41 H [facility] Protein [Mass/volume] in Serum or Plasma 6.6 g/dL 6.4-8.3 [facility] ID Date Data Source [id number] 05/08/2020 05:59:[address] [facility] Name Value Range Interpretation Code Description Data Beronica rce(s) Supporting Document(s) Magnesium [Mass/volume] in Serum or Plasma 1.6 mg/dL 1.6-2.6 [facility] ID Date Data Source [id number] 05/08/2020 05:59:[address] [facility] Name Value Range Interpretation Code Description Data Beronica rce(s) Supporting Document(s) Phosphate [Mass/volume] in Serum or Plasma 2.9 mg/dL 2.5-4.5 [facility] ID Date Data Source [id number] 05/08/2020 05:59:[address] [facility] Name Value Range Interpretation Code Description Data Beronica rce(s) Supporting Document(s) Hemoglobin A1c/Hemoglobin.total in Blood by HPLC 4.2 % 4.0-6.0 [facility] Glucose mean value [Mass/volume] in Blood Estimated fr glycated hemoglobin 74 mg/dL <126 [facility] ID Date Data Source [id number] 05/07/2020 10:43:[address] [facility] CT ABDOMEN PELVIS WITH CONTRAST [id number] AL RESULTInterpreted by:DANDRE MerinoROCEDURE INFORMATION: Exam: CT [...] rce(s) Supporting Document(s) ID Date Data Source [id number] 05/08/2020 12:02:31 AM [facility] Cmnt XXX-Imp : NoneMicroorganism XXX Cult : 2019 nCoV Real-Time RT-PCR: NOT DETECTEDTest performed using [employer] Respiratory Panel. This test is only for use under Food and Drug Administration's Emergency Use Authorization.Additional information is available on the following FDA websites for health care providers and patients. https://www.fda.gov/media/535933/download , https://www.fda.gov/nd tin/664510/downloadPolymerase chain reaction is NEGATIVE for Influenza A H1, H3 and 2009 H1 viruses, Influenza B virus, Respiratory syncytial virus, Human metapneumovirus, Parainfluenza virus 1,2,3 and 4, Adenovirus, Rhinovirus/ Enterovirus, Coronavirus HKU1, NL63, OC43 and 229E, Bordetella pertussis, B. parapertussis, Mycoplasma pneumoniae and Chlamydia pneumoniae. Name Value Range Interpretation Code Description Data Beronica rce(s) Supporting Document(s) ID Date Data Source [id number] 05/07/2020 10:39:[address] [facility] Service Cmnt XXX-Imp : NoneMicroorganism XXX Cult : 2019 nCoV Real-Time RT-PCR: NOT DETECTEDTest performed using [employer] Respiratory Panel. This test is only for use under Food and Drug Administration's Emergency Use Authorization.Additional information is available on the following FDA websites for health care providers and patients. https://www.fda.gov/media/173674/download , https://www.fda.gov/nd tin/110373/downloadPolymerase chain reaction is NEGATIVE for Influenza A H1, H3 and 2009 H1 viruses, Influenza B virus, Respiratory syncytial virus, Human metapneumovirus, Parainfluenza virus 1,2,3 and 4, Adenovirus, Rhinovirus/ Enterovirus, Coronavirus HKU1, NL63, OC43 and 229E, Bordetella pertussis, B. parapertussis, Mycoplasma pneumoniae and Chlamydia pneumoniae. Name Value Range Interpretation Code Description Data Beronica rce(s) Supporting Document(s) Microorganism identified in Unspecified specimen by [facility] This lab was ordered by [facility] and reported by [facility]. ID Date Data Source [id number] 05/07/2020 09:34:[address] [facility] Name Value Range Interpretation Code Description Data Beronica rce(s) Supporting Document(s) Glucose [Mass/volume] in Capillary blood by Glucometer 89 mg/dL 70- 140 [facility] ID Date Data Source [id number] 05/07/2020 05:08:17 PM [facility] Value Range Interpretation Code Description Data Beronica rce(s) Supporting Document(s) Glucose [Mass/volume] in Capillary blood by Glucometer 103 mg/dL 70- 140 [facility] ID Date Data Source [id number] 05/07/2020 04:21:43 PM [facility] HEPATOBILIARY IMAGING HIDA [id number] RESULTInterpreted by:Radu Castaneda, Christine Ignacio MDINDICATION: Evaluate [...] rce(s) Supporting Document(s) ID Date Data Source [id number] 05/07/2020 12:22:34 PM [facility] Value Range Interpretation Code Description Data Beronica rce(s) Supporting Document(s) Glucose [Mass/volume] in Capillary blood by Glucometer 79 mg/dL 70- 140 [facility] ID Date Data Source [id number] 05/07/2020 08:19:42 AM [facility] Value Range Interpretation Code Description Data Beronica rce(s) Supporting Document(s) Glucose [Mass/volume] in Capillary blood by Glucometer 74 mg/dL 70- 140 [facility] ID Date Data Source [id number] 05/07/2020 08:19:37 AM [facility] Value Range Interpretation Code Description Data Beronica rce(s) Supporting Document(s) Glucose [Mass/volume] in Capillary blood by Glucometer 35 mg/dL 70- 140 [facility] ID Date Data Source [id number] 05/07/2020 08:34:45 AM EDT [facility] Name Value Range Interpretation Code Description Data Beronica rce(s) Supporting Document(s) Bicarbonate [Moles/volume] in Serum 23 mmol/L 22-29 [facility] Chloride [Moles/volume] in Serum or Plasma 100 mmol/L 98-107 [facility] Creatinine [Mass/volume] in Serum or Plasma 0.38 mg/dL 0.70-1.20 L [facility] Icteric Glucose [Mass/volume] in Serum or Plasma 89 mg/dL 70-140 [facility] Potassium [Moles/volume] in Serum or Plasma 4.2 mmol/L 3.4-5.1 [facility] Sodium [Moles/volume] in Serum or Plasma 132 mmol/L 136-145 L [facility] Urea nitrogen [Mass/volume] in Serum or Plasma 6 mg/dL 6-20 [facility] Anion gap 3 in Serum or Plasma 9 mmol/L 8-15 [facility] Osmolality of Serum or Plasma by calculation 271 mosm/kg 275-300 L [facility] Creatinine/Urea nitrogen [Mass Ratio] in Serum or Plasma 16 [facility] Calcium [Mass/volume] in Serum or Plasma 8.0 mg/dL 8.6-10.0 [facility] Glomerular filtration rate/1.73 sq M pre dicted among non-blacks [Volume Rate/Area] in Serum or Plasma by Creatinine-based formula (MDRD) >6 0 [facility] Glomerular filtration rate/1.73 sq M pre dicted among blacks [Volume Rate/Area] in Serum or Plasma by Creatinine-based formula (MDRD) >60 [facility] ID Date Data Source [id number] 05/07/2020 04:56:00 AM [facility] Value Range Interpretation Code Description Data Beronica rce(s) Supporting Document(s) Leukocytes [#/volume] in Blood by Automated count 6.7 10*3/uL 4-10 [facility] Erythrocytes [#/volume] in Blood by Automated count 2.77 10*6/uL 4.6- 6.1 [facility] Hemoglobin [Mass/volume] in Blood 10.1 g/dL 13.5-18 L [facility] Hematocrit [Volume Fraction] of Blood by Automated count 29.6 % 4 1-53 L [facility] Erythrocyte mean corpuscular volume [Entitic volume] b y Automated count 106.8 fL 80-96 H [facility] Erythrocyte mean corpuscular hemoglobin [Entitic mass] by Automated count 36.5 pg 27-33 H [facility] Erythrocyte mean corpuscular hemoglobin concentration [Mass/volume] by Automated count 34.2 g/dL 32.0-36.0 [facility] Erythrocyte distribution width [Ratio] by Automated count 15.8 % 11.5-14.5 H [facility] Platelets [#/volume] in Blood by Automated count 89 10*3/uL 150-400 L [facility] ID Date Data Source [id number] 05/07/2020 05:08:11 AM [facility] Value Range Interpretation Code Description Data Beronica rce(s) Supporting Document(s) Prothrombin time (PT) 23.2 s 12.5-14.9 H [facility] INR in Platelet poor plasma by Coagulation assay 2.02 [facility] Routine intensity oral anticoagulation I NR is typically 2.0-3.0. Target INR must be clinically individualized. ID Date Data Source [id number] 05/07/2020 05:23:08 AM [facility] Value Range Interpretation Code Description Data Beronica rce(s) Supporting Document(s) Albumin [Mass/volume] in Serum or Plasma by Bromocresol green (BCG) dye binding method 2.1 g/dL 3.5-5.2 L [facility] Bilirubin.total [Mass/volume] in Serum or Plasma 12.0 mg/dL <1.2 H [facility] Bilirubin.direct [Mass/volume] in Serum or Plasma 8.3 mg/dL <0.3 H [facility] Alkaline phosphatase [Enzymatic activity/volume] in Serum or Plasma 118 U/L 40-129 [facility] Aspartate aminotransferase [Enzymatic activity/volume] in Serum or Plasma 109 U/L <40 H [facility] Alanine aminotransferase [Enzymatic activity/volume] in Seru m or Plasma 57 U/L <41 H [facility] Protein [Mass/volume] in Serum or Plasma 6.4 g/dL 6.4-8.3 [facility] ID Date Data Source [id number] 05/07/2020 05:23:08 AM [facility] Value Range Interpretation Code Description Data Beronica rce(s) Supporting Document(s) Magnesium [Mass/volume] in Serum or Plasma 1.5 mg/dL 1.6-2.6 L [facility] ID Date Data Source [id number] [facility]/07[facility]:23[facility] Name Value Range Interpretation Code Description Data Beronica rce(s) Supporting Document(s) Phosphate [Mass/volume] in Serum or Plasma 2.6 mg/dL 2.5-4.5 [facility] ID Date Data Source [id number] 05/06/2020 09:32:[address] [facility] Name Value Range Interpretation Code Description Data Beronica rce(s) Supporting Document(s) Glucose [Mass/volume] in Capillary blood by Glucometer 94 mg/dL 70- 140 [facility] ID Date Data Source [id number] 05/06/2020 05:49:[address] [facility] CT HEAD WITHOUT CONTRAST [id number] RESU LTInterpreted by:DANDRE MckeonROCEDURE INFORMATION: Exam: CT [...] rce(s) Supporting Document(s) ID Date Data Source [id number] 05/06/2020 05:14:[address] [facility] Name Value Range Interpretation Code Description Data Beronica rce(s) Supporting Document(s) Glucose [Mass/volume] in Capillary blood by Glucometer 98 mg/dL 70- 140 [facility] ID Date Data Source [id number] 05/06/2020 03:53:52 PM EDT [facility] Name Value Range Interpretation Code Description Data Beronica rce(s) Supporting Document(s) Glucose [Mass/volume] in Capillary blood by Glucometer 83 mg/dL 70- 140 [facility] ID Date Data Source [id number] 05/06/2020 03:42:36 PM EDT [facility] US ABDOMEN LIMITED [id number] RESULTInte rpreted by:Kevin Walker [facility]:49-year-old male with hyperbilirubinemia and transaminitis, who [...] of normal measuring 2.6 mm. There is [id number] gallbladder sludge and mobile gallstones layering dependently [...] rce(s) Supporting Document(s) ID Date Data Source [id number] 05/06/2020 01:42:46 PM [facility] Value Range Interpretation Code Description Data Beronica rce(s) Supporting Document(s) Leukocytes [#/volume] in Blood by Automated count 6.7 10*3/uL 4-10 [facility] Erythrocytes [#/volume] in Blood by Automated count 2.85 10*6/uL 4.6- 6.1 L [facility] Hemoglobin [Mass/volume] in Blood 10.4 g/dL 13.5-18 L [facility] Hematocrit [Volume Fraction] of Blood by Automated count 30.3 % 4 1-53 [facility] Erythrocyte mean corpuscular volume [Entitic volume] b y Automated count 106.1 fL 80-96 [facility] Erythrocyte mean corpuscular hemoglobin [Entitic mass] by Automated count 36.4 pg 27-33 [facility] Erythrocyte mean corpuscular hemoglobin concentration [Mass/volume] by Automated count 34.3 g/dL 32.0-36.0 [facility] width [Ratio] by Automated count 15.7 % 11.5-14.5 [facility] Platelets [#/volume] in Blood by Automated count 87 10*3/uL 150-400 [facility] ID Date Data Source [id number] 05/06/2020 12:33:22 PM [facility] Value Range Interpretation Code Description Data Beronica rce(s) Supporting Document(s) Glucose [Mass/volume] in Capillary blood by Glucometer 96 mg/dL 70- 140 [facility] ID Date Data Source [id number] 05/06/2020 08:34:21 AM [facility] Value Range Interpretation Code Description Data Beronica rce(s) Supporting Document(s) Glucose [Mass/volume] in Capillary blood by Glucometer 90 mg/dL 70- 140 [facility] ID Date Data Source [id number] 05/06/2020 05:30:[address] [facility] Name Value Range Interpretation Code Description Data Beronica rce(s) Supporting Document(s) Bicarbonate [Moles/volume] in Serum 23 mmol/L 22-29 [facility] Chloride [Moles/volume] in Serum or Plasma 100 mmol/L 98-107 [facility] Creatinine [Mass/volume] in Serum or Plasma 0.34 mg/dL 0.70-1.20 L [facility] Icteric Glucose [Mass/volume] in Serum or Plasma 115 mg/dL 70-140 [facility] Potassium [Moles/volume] in Serum or Plasma 4.2 mmol/L 3.4-5.1 [facility] Sodium [Moles/volume] in Serum or Plasma 133 mmol/L 136-145 L [facility] Urea nitrogen [Mass/volume] in Serum or Plasma 7 mg/dL 6-20 [facility] Anion gap 3 in Serum or Plasma 9 mmol/L 8-15 [facility] Osmolality of Serum or Plasma by calculation 275 mosm/kg 275-300 [facility] Creatinine/Urea nitrogen [Mass Ratio] in Serum or Plasma 21 [facility] Calcium [Mass/volume] in Serum or Plasma 8.3 mg/dL 8.6-10.0 L [facility] Glomerular filtration rate/1.73 sq M pre dicted among non-blacks [Volume Rate/Area] in Serum or Plasma by Creatinine-based formula (MDRD) >6 0 [facility] Glomerular filtration rate/1.73 sq M pre dicted among blacks [Volume Rate/Area] in Serum or Plasma by Creatinine-based formula (MDRD) >60 [facility] ID Date Data Source [id number] 05/06/2020 05:30:17 AM [facility] Value Range Interpretation Code Description Data Beronica rce(s) Supporting Document(s) Magnesium [Mass/volume] in Serum or Plasma 1.6 mg/dL 1.6-2.6 [facility] ID Date Data Source [id number] 05/06/2020 05:30:17 AM [facility] Value Range Interpretation Code Description Data Beronica rce(s) Supporting Document(s) Phosphate [Mass/volume] in Serum or Plasma 3.0 mg/dL 2.5-4.5 [facility] ID Date Data Source [id number] 05/06/2020 05:46:24 AM [facility] Value Range Interpretation Code Description Data Beronica rce(s) Supporting Document(s) Prothrombin time (PT) 21.9 s 12.5-14.9 H [facility] INR in Platelet poor plasma by Coagulation assay 1.87 [facility] Routine intensity oral anticoagulation I NR is typically 2.0-3.0. Target INR must be clinically individualized. ID Date Data Source [id number] 05/06/2020 08:58:07 AM [facility] Value Range Interpretation Code Description Data Beronica rce(s) Supporting Document(s) Albumin [Mass/volume] in Serum or Plasma by Bromocresol green (BCG) dye binding method 2.6 g/dL 3.5-5.2 L [facility] Bilirubin.total [Mass/volume] in Serum or Plasma 13.4 mg/dL <1.2 H [facility] Bilirubin.direct [Mass/volume] in Serum or Plasma 9.0 mg/dL <0.3 H [facility] Alkaline phosphatase [Enzymatic activity/volume] in Serum or Plasma 127 U/L 40-129 [facility] Aspartate aminotransferase [Enzymatic activity/volume] in Serum or Plasma 113 U/L <40 H [facility] Alanine aminotransferase [Enzymatic activity/volume] in Seru m or Plasma 62 U/L <41 H [facility] Protein [Mass/volume] in Serum or Plasma 6.9 g/dL 6.4-8.3 [facility] ID Date Data Source [id number] 05/06/2020 04:35:51 AM [facility] Value Range Interpretation Code Description Data Beronica rce(s) Supporting Document(s) Glucose [Mass/volume] in Capillary blood by Glucometer 77 mg/dL 70- 140 [facility] ID Date Data Source [id number] 05/05/2020 09:08:04 PM [facility] Value Range Interpretation Code Description Data Beronica rce(s) Supporting Document(s) Glucose [Mass/volume] in Capillary blood by Glucometer 140 mg/dL 70- 140 [facility] ID Date Data Source [id number] 05/05/2020 08:14:52 PM [facility] Value Range Interpretation Code Description Data Beronica rce(s) Supporting Document(s) Glucose [Mass/volume] in Capillary blood by Glucometer 103 mg/dL 70- 140 [facility] ID Date Data Source [id number] 05/05/2020 06:49:[address] [facility] Name Value Range Interpretation Code Description Data Beronica rce(s) Supporting Document(s) Glucose [Mass/volume] in Capillary blood by Glucometer 108 mg/dL 70- 140 [facility] ID Date Data Source [id number] 05/05/2020 08:10:19 PM [facility] Cmnt XXX-Imp : NoneMicroorganism XXX Cult : 2019 nCoV Real-Time RT-PCR: NOT DETECTEDTest performed using [employer] Respiratory Panel. This test is only for use under Food and Drug Administration's Emergency Use Authorization.Additional information is available on the following FDA websites for health care providers and patients. https://www.fda.gov/media/125381/download , https://www.[employer].gov/nd tin/956758/downloadPolymerase chain reaction is NEGATIVE for Influenza A H1, H3 and 2009 H1 viruses, Influenza B virus, Respiratory syncytial virus, Human metapneumovirus, Parainfluenza virus 1,2,3 and 4, Adenovirus, Rhinovirus/ Enterovirus, Coronavirus HKU1, NL63, OC43 and 229E, Bordetella pertussis, B. parapertussis, Mycoplasma pneumoniae and Chlamydia pneumoniae. Name Value Range Interpretation Code Description Data Beronica rce(s) Supporting Document(s) ID Date Data Source [id number] 05/05/2020 06:19:00 PM [facility] Cmnt XXX-Imp : NoneMicroorganism XXX Cult : 2019 nCoV Real-Time RT-PCR: NOT DETECTEDTest performed using [employer] Respiratory Panel. This test is only for use under Food and Drug Administration's Emergency Use Authorization.Additional information is available on the following FDA websites for health care providers and patients. https://www.fda.gov/media/921293/download , https://www.fda.gov/me tin/156197/downloadPolymerase chain reaction is NEGATIVE for Influenza A H1, H3 and 2009 H1 viruses, Influenza B virus, Respiratory syncytial virus, Human metapneumovirus, Parainfluenza virus 1,2,3 and 4, Adenovirus, Rhinovirus/ Enterovirus, Coronavirus HKU1, NL63, OC43 and 229E, Bordetella pertussis, B. parapertussis, Mycoplasma pneumoniae and Chlamydia pneumoniae. Name Value Range Interpretation Code Description Data Beronica rce(s) Supporting Document(s) Microorganism identified in Unspecified specimen by [facility] This lab was ordered by [facility] and reported by [facility]. ID Date Data Source [id number] 05/05/2020 05:34:13 PM [facility] Value Range Interpretation Code Description Data Beronica rce(s) Supporting Document(s) Glucose [Mass/volume] in Capillary blood by Glucometer 85 mg/dL 70- 140 [facility] ID Date Data Source [id number] 05/05/2020 05:06:49 PM [facility] Value Range Interpretation Code Description Data Beronica rce(s) Supporting Document(s) Glucose [Mass/volume] in Capillary blood by Glucometer 69 mg/dL 70- 140 [facility] ID Date Data Source [id number] 05/05/2020 05:06:49 PM [facility] Value Range Interpretation Code Description Data Beronica rce(s) Supporting Document(s) Glucose [Mass/volume] in Capillary blood by Glucometer 61 mg/dL 70- 140 [facility] ID Date Data Source [id number] 05/05/2020 12:19:26 PM [facility] Value Range Interpretation Code Description Data Beronica rce(s) Supporting Document(s) Glucose [Mass/volume] in Capillary blood by Glucometer 72 mg/dL 70- 140 [facility] ID Date Data Source [id number] 05/05/2020 09:42:42 AM [facility] Value Range Interpretation Code Description Data Bero[employer] rce(s) Supporting Document(s) Albumin [Mass/volume] in Serum or Plasma by Bromocresol green (BCG) dye binding method 2.6 g/dL 3.5-5.2 [facility] Bil[facility].total [Mass/volume] in Serum or Plasma 13.2 mg/dL <1.2 H [facility] Calcium [Mass/volume] in Serum or Plasma 8.3 mg/dL 8.6-10.0 L [facility] Chloride [Moles/volume] in Serum or Plasma 95 mmol/L 98-107 L [facility] Creatinine [Mass/volume] in Serum or Plasma 0.40 mg/dL 0.70-1.20 L [facility] Icteric Glucose [Mass/volume] in Serum or Plasma 125 mg/dL 70-140 [facility] Alkaline phosphatase [Enzymatic activity/volume] in Serum or Plasma 134 U/L 40-129 H [facility] Potassium [Moles/volume] in Serum or Plasma 3.0 mmol/L 3.4-5.1 L [facility] Protein [Mass/volume] in Serum or Plasma 7.0 g/dL 6.4-8.3 [facility] Sodium [Moles/volume] in Serum or Plasma 129 mmol/L 136-145 L [facility] Aspartate aminotransferase [Enzymatic activity/volume] in Serum or Plasma 108 U/L <40 H [facility] Urea nitrogen [Mass/volume] in Serum or Plasma 7 mg/dL 6-20 [facility] Osmolality of Serum or Plasma by calculation 268 mosm/kg 275-300 L [facility] Creatinine/Urea nitrogen [Mass Ratio] in Serum or Plasma 18 [facility] Bicarbonate [Moles/volume] in Serum 24 mmol/L 22-29 [facility] Alanine aminotransferase [Enzymatic activity/volume] in Seru m or Plasma 59 U/L <41 H [facility] Anion gap 3 in Serum or Plasma 10 mmol/L 8-15 [facility] Glomerular filtration rate/1.73 sq M pre dicted among non-blacks [Volume Rate/Area] in Serum or Plasma by Creatinine-based formula (MDRD) >6 0 [facility] Glomerular filtration rate/1.73 sq M pre dicted among blacks [Volume Rate/Area] in Serum or Plasma by Creatinine-based formula (MDRD) >60 [facility] ID Date Data Source [id number] 05/05/2020 09:42:[address] [facility] Name Value Range Interpretation Code Description Data Beronica rce(s) Supporting Document(s) Magnesium [Mass/volume] in Serum or Plasma 1.5 mg/dL 1.6-2.6 [facility] ID Date Data Source [id number] 05/05/2020 09:42:42 AM [facility] Value Range Interpretation Code Description Data Beronica rce(s) Supporting Document(s) Phosphate [Mass/volume] in Serum or Plasma 3.0 mg/dL 2.5-4.5 [facility] ID Date Data Source [id number] 05/05/2020 08:38:21 AM [facility] Value Range Interpretation Code Description Data Beronica rce(s) Supporting Document(s) Glucose [Mass/volume] in Capillary blood by Glucometer 113 mg/dL 70- 140 [facility] ID Date Data Source [id number] 05/05/2020 06:22:21 AM [facility] Value Range Interpretation Code Description Data Beronica rce(s) Supporting Document(s) Glucose [Mass/volume] in Capillary blood by Glucometer 83 mg/dL 70- 140 [facility] ID Date Data Source [id number] 05/05/2020 05:30:59 AM [facility] Value Range Interpretation Code Description Data Beronica rce(s) Supporting Document(s) Prothrombin time (PT) 22.8 s 12.5-14.9 H [facility] INR in Platelet poor plasma by Coagulation assay 1.97 [facility] Routine intensity oral anticoagulation I NR is typically 2.0-3.0. Target INR must be clinically individualized. ID Date Data Source [id number] 05/04/2020 11:32:14 PM [facility] Value Range Interpretation Code Description Data Beronica rce(s) Supporting Document(s) Glucose [Mass/volume] in Capillary blood by Glucometer 124 mg/dL - 140 [facility] ID Date Data Source [id number] 05/04/2020 10:09:05 PM [facility] Value Range Interpretation Code Description Data Beronica rce(s) Supporting Document(s) Glucose [Mass/volume] in Capillary blood by Glucometer 111 mg/dL 70- 140 [facility] ID Date Data Source [id number] 05/04/2020 09:28:13 PM [facility] Value Range Interpretation Code Description Data Beronica rce(s) Supporting Document(s) Glucose [Mass/volume] in Capillary blood by Glucometer 103 mg/dL - 140 [facility] ID Date Data Source [id number] 05/04/2020 09:12:18 PM [facility] Value Range Interpretation Code Description Data Beronica rce(s) Supporting Document(s) Glucose [Mass/volume] in Capillary blood by Glucometer 66 mg/dL 70- 140 [facility] ID Date Data Source [id number] 05/04/2020 09:12:[address] [facility] Name Value Range Interpretation Code Description Data Beronica rce(s) Supporting Document(s) Glucose [Mass/volume] in Capillary blood by Glucometer 64 mg/dL 70- 140 L [facility] ID Date Data Source [id number] 05/04/2020 04:55:44 PM [facility] Value Range Interpretation Code Description Data Beronica rce(s) Supporting Document(s) Glucose [Mass/volume] in Capillary blood by Glucometer 95 mg/dL 70- 140 [facility] ID Date Data Source [id number] 05/04/2020 12:29:03 PM [facility] Value Range Interpretation Code Description Data Beronica rce(s) Supporting Document(s) Glucose [Mass/volume] in Capillary blood by Glucometer 95 mg/dL 70- 140 [facility] ID Date Data Source [id number] 05/04/2020 10:28:14 AM [facility] Value Range Interpretation Code Description Data Beronica rce(s) Supporting Document(s) Progress Note [facility] [id number] lbm [file] AgICAgICAgICAgICAgICAgICAgICAgICAgICAgICAgICAgICAgICAgICAgICAgICAgICAgICAgICAgIC AgICAgICAgICAgICAgICAgICAgICAgDQogICAgICAgICAgICAgICAgICAgICAgICAgICAgICAgICAgIC AgICAgICAgICAgICAgICAgICAgICAgICAgICAgICAg ICAgICAgICAgICAgICAgICAgICAgICAgICAgICAgICAgDQogICAgICAgICAgICAgICAgICAgICAgICAg ICAgICAgICAgICAgICAgICAgICAgICAgICAgICAgICAgICAgICAgICAgICAgICAgICAgICAgICAgICAg ICAgICAgICAgICAgICAgDQogICAgICAgICAgICAgIC AgICAgICAgICAgICAgICAgICAgICAgICAgICAgICAgICAgICAgICAgICAgICAgICAgICAgICAgICAgIC AgICAgICAgICAgICAgICAgICAgICAgICAgDQogICAgICAgICAgICAgICAgICAgICAgICAgICAgICAgIC AgICAgICAgICAgICAgICAgICAgICAgICAgICAgICAg ICAgICAgICAgICAgICAgICAgICAgICAgICAgICAgICAgICAgDQogICAgICAgICAgICAgICAgICAgICAg ICAgICAgICAgICAgICAgICAgICAgICAgICAgICAgICAgICAgICAgICAgICAgICAgICAgICAgICAgICAg ICAgICAgICAgICAgICAgICAgDQogICAgICAgICAgIC AgICAgICAgICAgICAgICAgICAgICAgICAgICAgICAgICAgICAgICAgICAgICAgICAgICAgICAgICAgIC AgICAgICAgICAgICAgICAgICAgICAgICAgICAgDQogICAgICAgICAgICAgICAgICAgICAgICAgICAgIC AgICAgICAgICAgICAgICAgICAgICAgICAgICAgICAg ICAgICAgICAgICAgICAgICAgICAgICAgICAgICAgICAgICAgICAgDQogICAgICAgICAgICAgICAgICAg ICAgICAgICAgICAgICAgICAgICAgICAgICAgICAgICAgICAgICAgICAgICAgICAgICAgICAgICAgICAg ICAgICAgICAgICAgICAgICAgICAgDQogICAgICAgIC AgICAgICAgICAgICAgICAgICAgICAgICAgICAgICAgICAgICAgICAgICAgICAgICAgICAgICAgICAgIC IiHQRsXZBiUBTbLUJpUVYtKJIeTVRbJDNsZHBzXJRtQIr0Y2snOYInVTVoUV3gLNo8Yo9+DQoNCmVuZH A4daHkeI2JSE5vw9KcNCbeHZJwt8UuXWh6GB6INGCl WManAR3XNXdiff4BIPNqFOWcpPOVg5mmBnIoIAC4HAAuQqtnUT9ZDEVwQ6hojkCiLHCdMGAASV9FJwFb P7GxnY69JKXHVm5+KXjjqpZuNyyBGqJ9VYSrn4NgLHp6EH9OTWTnAjvhk3DeCfSkDVSGTMlmWV9GULK8 PDMoWGYvZf3CLWJsY375fwRaHG8GPx8XDkHhVP3fbx 3PYnPkQPQoItlXWip2RGpvMV0LsEQmKRpKga6inqHestGKx6MpaxOyjYBLhiApYCUdNUJmQVlaYNRvNT EhKM4vYK3pYKWeGUSuIaS4SXUQIT5GLJFjORRiaFDkEZDmZYXUGA1LHRscNPD1ERNvvwGdsNQdGWjzHU 9QYXJlbnQgMTkgMCBSDQo+Ms9JCW6py0KsEEzhRUUe BB2lrb5XOIdPMwVnD7I2gMPgV4O5LCvpWn5TKEOrVMQzFDrwJIDFFTzoUT5SXZ0akcQ2KF2PgTRtTWQa BAUxsKEjGNv7R70gvOHoOQotEB9NGXG+Claudia+Aw6EYMBmJFMfNYEuSfQeXJLBDoSrH0ClH4AUb2AoP6Vy CP08wNysqfNpBSczQF0SUL9gDDWnIXJAEL8FqDMvvZ 3rmkQvHCJwOEXNBgDnN26myCOmMOSuJQZ9FJXxPy7DFLRyQ3NdvsOkdHpabhOfTPHlDJSAQH9JDKwfnx OgvJBztXzxQM01tKvfTG1GQt2VHiLlFQ3ryd8OlWKhLr9CLORdLo2UVLMzSVWgRCHqYGO4DAKhXvWoXJ nsSEOiDUGlQFQ2TCUvWJKyXW0DLwCcLDOiNSQ4VZnj RRKdMBVwhp0EWWNcBUNuMTV2MgYhGPDjHEInWYyePAIxBDEdYDH9KVReXJVjOK9OWhCgSVTpHHE1NqSp DEBrEWNfzv2EADKqDPVrYGf6UIBuYHIbDWHqVWhfOHKcUYUjOaF5OOUbAIMxTJ7DTtObXJHsYVY2GeFc HSXnUNYdzk1RFLIsJJYrRtUjGJUwRJSaPHIpRBotKS UxHWU9KHaoHYDkQYZgDS1PZtUuLAUsTHQoBsLyWBBqNLRkgm1VAPFbCKPhLMR1SISxQMQbHEPsNNmbOR SiJNF5SXH6TKWhQOMgCS9ADaUbBILlBCRuWaGuCFVvUANoaw9VNIUpWGOfEvT3XOMdARVpAABpFHqdNC KkOSS8BDwzUXBqUMEzTR5EXhTnQWSmWJM8UbvwBRPp VIJmgy7BWUJdCDNlGvKtRrIvACNnKIOeJCbsKIBdCHY8DDN2YAIgKWOtGZ6XAdAdFQNcUWf0UsTpRMKa EXKnxn4ZQXGkVGSvOHk0KhLlONGcIDWtJYt7fiYojOPoECd2WT4QC0FldgVnSxQQCh4Dw677XBCkXWBj Db4UT9zfCm1mWPMfHWXSFc7BWGw9Q4G5AESpZKQ7OK hsOUxfJVXpNQAcVJEqBiY0TPpmBVN+RGd7PbwcNUErAbGnKyLtBCBjAQQqSbOpICDaMYK4D6BiNx9yEO ANCj4+FTbxrPIjjCuvMQGSGzD8PIA2DLrxMDNRNq1Q ID Date Data Source [id number] 05/04/2020 08:02:58 AM [facility] Value Range Interpretation Code Description Data Beronica rce(s) Supporting Document(s) Glucose [Mass/volume] in Capillary blood by Glucometer 71 mg/dL 70- 140 [facility] ID Date Data Source [id number] 05/04/2020 08:02:58 AM [facility] Value Range Interpretation Code Description Data Beronica rce(s) Supporting Document(s) Glucose [Mass/volume] in Capillary blood by Glucometer 66 mg/dL 70- 140 L [facility] ID Date Data Source [id number] 05/04/2020 06:31:11 AM [facility] Value Range Interpretation Code Description Data Beronica rce(s) Supporting Document(s) Prothrombin time (PT) 23.3 s 12.5-14.9 H [facility] INR in Platelet poor plasma by Coagulation assay 2.03 [facility] Routine intensity oral anticoagulation I NR is typically 2.0-3.0. Target INR must be clinically individualized. ID Date Data Source [id number] 05/04/2020 06:46:06 AM [facility] Value Range Interpretation Code Description Data Beronica rce(s) Supporting Document(s) Bilirubin.direct [Mass/volume] in Serum or Plasma 9.0 mg/dL <0.3 H [facility] ID Date Data Source [id number] 05/04/2020 06:46:06 AM [facility] Value Range Interpretation Code Description Data Beronica rce(s) Supporting Document(s) Albumin [Mass/volume] in Serum or Plasma by Bromocresol green (BCG) dye binding method 2.3 g/dL 3.5[facility] Bil[facility] [Mass/volume] in Serum or Plasma 13.1 mg/dL <1.2 H [facility] Calcium [Mass/volume] in Serum or Plasma 8.3 mg/dL 8.6-10.0 L [facility] Chloride [Moles/volume] in Serum or Plasma 99 mmol/L 98-107 [facility] Creatinine [Mass/volume] in Serum or Plasma 0.36 mg/dL 0.70-1.20 L [facility] Icteric Glucose [Mass/volume] in Serum or Plasma 78 mg/dL 70-140 [facility] Alkaline phosphatase [Enzymatic activity/volume] in Serum or Plasma 132 U/L 40-129 H [facility] Potassium [Moles/volume] in Serum or Plasma 3.3 mmol/L 3.4-5.1 L [facility] Protein [Mass/volume] in Serum or Plasma 6.6 g/dL 6.4-8.3 [facility] Sodium [Moles/volume] in Serum or Plasma 132 mmol/L 136-145 L [facility] Aspartate aminotransferase [Enzymatic activity/volume] in Serum or Plasma 106 U/L <40 H [facility] Urea nitrogen [Mass/volume] in Serum or Plasma 5 mg/dL 6-20 L [facility] Osmolality of Serum or Plasma by calculation 270 mosm/kg 275-300 L [facility] Creatinine/Urea nitrogen [Mass Ratio] in Serum or Plasma 14 [facility] Bicarbonate [Moles/volume] in Serum 24 mmol/L 22-29 [facility] Alanine aminotransferase [Enzymatic activity/volume] in Seru m or Plasma 52 U/L <41 H [facility] Anion gap 3 in Serum or Plasma 9 mmol/L 8-15 [facility] Glomerular filtration rate/1.73 sq M pre dicted among non-blacks [Volume Rate/Area] in Serum or Plasma by Creatinine-based formula (MDRD) >6 0 [facility] Glomerular filtration rate/1.73 sq M pre dicted among blacks [Volume Rate/Area] in Serum or Plasma by Creatinine-based formula (MDRD) >60 [facility] ID Date Data Source [id number] 05/03/2020 09:09:[address] [facility] Name Value Range Interpretation Code Description Data Beronica rce(s) Supporting Document(s) Glucose [Mass/volume] in Capillary blood by Glucometer 138 mg/dL 70- 140 [facility] ID Date Data Source [id number] 05/03/2020 05:02:[address] [facility] Name Value Range Interpretation Code Description Data Beronica rce(s) Supporting Document(s) Glucose [Mass/volume] in Capillary blood by Glucometer 121 mg/dL 70- 140 [facility] ID Date Data Source [id number] 05/03/2020 02:35:[address] [facility] US RENAL OR AORTA COMPLETE [id number] RE SULTInterpreted by:Dudley Pastrana, MDPROCEDURE INFORMATION: Exam: US Retroperitoneal; Complete; Kidneys [...] kidneys and bladder. COMPARISON: US ABDOMEN LIMITED [id number] PORTABLE 04/28/2020 12:59 PM FINDINGS: Liver: There [...] rce(s) Supporting Document(s) ID Date Data Source [id number] 05/03/2020 12:25:08 PM [facility] Value Range Interpretation Code Description Data Beronica rce(s) Supporting Document(s) Glucose [Mass/volume] in Capillary blood by Glucometer 89 mg/dL 70- 140 [facility] ID Date Data Source [id number] 05/03/2020 10:26:00 AM [facility] Value Range Interpretation Code Description Data Beronica rce(s) Supporting Document(s) Glucose [Mass/volume] in Capillary blood by Glucometer 119 mg/dL 70- 140 [facility] ID Date Data Source [id number] 05/03/2020 08:57:45 AM [facility] Value Range Interpretation Code Description Data Beronica rce(s) Supporting Document(s) Glucose [Mass/volume] in Capillary blood by Glucometer 88 mg/dL 70- 140 [facility] ID Date Data Source [id number] 05/03/2020 08:23:52 AM [facility] Value Range Interpretation Code Description Data Beronica rce(s) Supporting Document(s) Glucose [Mass/volume] in Capillary blood by Glucometer 65 mg/dL 70- 140 L [facility] ID Date Data Source [id number] 05/03/2020 04:40:[address] [facility] Name Value Range Interpretation Code Description Data Beronica rce(s) Supporting Document(s) Prothrombin time (PT) 22.1 s 12.5-14.9 H [facility] INR in Platelet poor plasma by Coagulation assay 1.90 [facility] Routine intensity oral anticoagulation I NR is typically 2.0-3.0. Target INR must be clinically individualized. ID Date Data Source [id number] 05/03/2020 05:45:43 AM [facility] Value Range Interpretation Code Description Data Beronica rce(s) Supporting Document(s) Bilirubin.direct [Mass/volume] in Serum or Plasma 9.0 mg/dL <0.3 H [facility] ID Date Data Source [id number] 05/03/2020 05:45:43 AM [facility] Value Range Interpretation Code Description Data Beronica rce(s) Supporting Document(s) Albumin [Mass/volume] in Serum or Plasma by Bromocresol green (BCG) dye binding method 2.4 g/dL 3.5-5.2 [facility] Bil[facility].total [Mass/volume] in Serum or Plasma 14.3 mg/dL <1.2 H [facility] Calcium [Mass/volume] in Serum or Plasma 8.2 mg/dL 8.6-10.0 L [facility] Chloride [Moles/volume] in Serum or Plasma 98 mmol/L 98-107 [facility] Creatinine [Mass/volume] in Serum or Plasma 0.21 mg/dL 0.70-1.20 L [facility] Icteric Glucose [Mass/volume] in Serum or Plasma 79 mg/dL 70-140 [facility] Alkaline phosphatase [Enzymatic activity/volume] in Serum or Plasma 135 U/L 40-129 H [facility] Potassium [Moles/volume] in Serum or Plasma 3.5 mmol/L 3.4-5.1 [facility] Protein [Mass/volume] in Serum or Plasma 7.5 g/dL 6.4-8.3 [facility] Sodium [Moles/volume] in Serum or Plasma 130 mmol/L 136-145 L [facility] Aspartate aminotransferase [Enzymatic activity/volume] in Serum or Plasma 113 U/L <40 H [facility] Urea nitrogen [Mass/volume] in Serum or Plasma 5 mg/dL 6-20 L [facility] Osmolality of Serum or Plasma by calculation 266 mosm/kg 275-300 L [facility] Creatinine/Urea nitrogen [Mass Ratio] in Serum or Plasma 22 [facility] Bicarbonate [Moles/volume] in Serum 23 mmol/L 22-29 [facility] Alanine aminotransferase [Enzymatic activity/volume] in Seru m or Plasma 53 U/L <41 H [facility] Anion gap 3 in Serum or Plasma 9 mmol/L 8-15 [facility] Glomerular filtration rate/1.73 sq M pre dicted among non-blacks [Volume Rate/Area] in Serum or Plasma by Creatinine-based formula (MDRD) >6 0 [facility] Glomerular filtration rate/1.73 sq M pre dicted among blacks [Volume Rate/Area] in Serum or Plasma by Creatinine-based formula (MDRD) >60 [facility] ID Date Data Source [id number] 05/03/2020 05:45:[address] [facility] Name Value Range Interpretation Code Description Data Beronica rce(s) Supporting Document(s) Phosphate [Mass/volume] in Serum or Plasma 3.1 mg/dL 2.5-4.5 [facility] ID Date Data Source [id number] 05/02/2020 05:04:51 PM [facility] Value Range Interpretation Code Description Data Beronica rce(s) Supporting Document(s) Glucose [Mass/volume] in Capillary blood by Glucometer 133 mg/dL 70- 140 [facility] ID Date Data Source [id number] 05/02/2020 03:22:46 PM [facility] Value Range Interpretation Code Description Data Beronica rce(s) Supporting Document(s) Color of Urine [facility] Clarity of Urine [facility] Specific gravity of Urine by Refractometry automated 1.003 1.003 -1.030 [facility] pH of Urine by Automated test strip 7.0 5.0-8.0 [facility] Protein [Mass/volume] in Urine by Automated test strip Neg [facility] Glucose [Mass/volume] in Urine by Automated test strip Neg [facility] Ketones [Mass/volume] in Urine by Automated test strip Neg [facility] Bilirubin.total [Presence] in Urine by Automated test strip Negative [facility] False-positive results may occur with ce rtain food additives or medications. Hemoglobin [Presence] in Urine by Automated test strip Neg ative A [facility] Leukocyte esterase [Presence] in Urine by Automated test strip Negative [facility] Nitrite [Presence] in Urine by Automated test strip Negati ve [facility] Leukocytes [#/area] in Urine sediment by Automated count 0 -5 [facility] Erythrocytes [#/area] in Urine sediment by Automated count 7 /HPF 0-3 H [facility] Service comment [facility] ID Date Data Source [id number] 05/02/2020 12:32:18 PM [facility] Value Range Interpretation Code Description Data Beronica rce(s) Supporting Document(s) Glucose [Mass/volume] in Capillary blood by Glucometer 116 mg/dL 70- 140 [facility] ID Date Data Source [id number] 05/02/2020 08:28:17 AM [facility] Value Range Interpretation Code Description Data Beronica rce(s) Supporting Document(s) Glucose [Mass/volume] in Capillary blood by Glucometer 77 mg/dL 70- 140 [facility] ID Date Data Source [id number] 05/02/2020 04:09:22 AM [facility] Value Range Interpretation Code Description Data Beronica rce(s) Supporting Document(s) Prothrombin time (PT) 24.2 s 12.5-14.9 H [facility] INR in Platelet poor plasma by Coagulation assay 2.13 [facility] Routine intensity oral anticoagulation I NR is typically 2.0-3.0. Target INR must be clinically individualized. ID Date Data Source [id number] 05/02/2020 04:18:36 AM [facility] Value Range Interpretation Code Description Data Beronica rce(s) Supporting Document(s) Bilirubin.direct [Mass/volume] in Serum or Plasma 8.3 mg/dL <0.3 H [facility] ID Date Data Source [id number] 05/02/2020 04:18:36 AM [facility] Value Range Interpretation Code Description Data Beronica rce(s) Supporting Document(s) Albumin [Mass/volume] in Serum or Plasma by Bromocresol green (BCG) dye binding method 2.2 g/dL 3.5-5.2 [facility] Bilirubin.total [Mass/volume] in Serum or Plasma 12.3 mg/dL <1.2 H [facility] Calcium [Mass/volume] in Serum or Plasma 6.2 mg/dL 8.6-10.0 L [facility] Chloride [Moles/volume] in Serum or Plasma 102 mmol/L 98-107 [facility] Creatinine [Mass/volume] in Serum or Plasma 0.44 mg/dL 0.70-1.20 [facility] I[facility]eric Glucose [Mass/volume] in Serum or Plasma 83 mg/dL 70-140 [facility] Alkaline phosphatase [Enzymatic activity/volume] in Serum or Plasma 126 U/L 40-129 [facility] Potassium [Moles/volume] in Serum or Plasma 3.3 mmol/L 3.4-5.1 L [facility] Protein [Mass/volume] in Serum or Plasma 6.5 g/dL 6.4-8.3 [facility] Sodium [Moles/volume] in Serum or Plasma 135 mmol/L 136-145 L [facility] Aspartate aminotransferase [Enzymatic activity/volume] in Serum or Plasma 93 U/L <40 H [facility] Urea nitrogen [Mass/volume] in Serum or Plasma 4 mg/dL 6-20 [facility] Osmolality of Serum or Plasma by calculation 276 mosm/kg 275-300 [facility] Creatinine/Urea nitrogen [Mass Ratio] in Serum or Plasma 10 [facility] Bicarbonate [Moles/volume] in Serum 25 mmol/L 22-29 [facility] Alanine aminotransferase [Enzymatic activity/volume] in Seru m or Plasma 42 U/L <41 H [facility] Anion gap 3 in Serum or Plasma 8 mmol/L 8-15 [facility] Glomerular filtration rate/1.73 sq M pre dicted among non-blacks [Volume Rate/Area] in Serum or Plasma by Creatinine-based formula (MDRD) >6 0 [facility] Glomerular filtration rate/1.73 sq M pre dicted among blacks [Volume Rate/Area] in Serum or Plasma by Creatinine-based formula (MDRD) >60 [facility] ID Date Data Source [id number] 05/02/2020 04:18:36 AM EDT [facility] Name Value Range Interpretation Code Description Data Beronica rce(s) Supporting Document(s) Magnesium [Mass/volume] in Serum or Plasma 1.6 mg/dL 1.6-2.6 [facility] ID Date Data Source [id number] 05/02/2020 04:18:36 AM [facility] Value Range Interpretation Code Description Data Beronica rce(s) Supporting Document(s) Phosphate [Mass/volume] in Serum or Plasma 2.8 mg/dL 2.5-4.5 [facility] ID Date Data Source [id number] 05/01/2020 09:29:52 PM [facility] Value Range Interpretation Code Description Data Beronica rce(s) Supporting Document(s) Glucose [Mass/volume] in Capillary blood by Glucometer 151 mg/dL 70- 140 H [facility] ID Date Data Source [id number] 05/01/2020 05:38:50 PM [facility] Value Range Interpretation Code Description Data Beronica rce(s) Supporting Document(s) Glucose [Mass/volume] in Capillary blood by Glucometer 112 mg/dL 70- 140 [facility] ID Date Data Source [id number] 05/01/2020 12:22:05 PM [facility] Value Range Interpretation Code Description Data Beronica rce(s) Supporting Document(s) Glucose [Mass/volume] in Capillary blood by Glucometer 96 mg/dL 70- 140 [facility] ID Date Data Source [id number] 05/01/2020 10:25:19 AM [facility] Value Range Interpretation Code Description Data Beronica rce(s) Supporting Document(s) Albumin [Mass/volume] in Serum or Plasma by Bromocresol green (BCG) dye binding method 2.5 g/dL 3.5-5.2 [facility] Bilirubin.total [Mass/volume] in Serum or Plasma 14.5 mg/dL <1.2 H [facility] Calcium [Mass/volume] in Serum or Plasma 8.4 mg/dL 8.6-10.0 L [facility] Chloride [Moles/volume] in Serum or Plasma 97 mmol/L 98-107 L [facility] Creatinine [Mass/volume] in Serum or Plasma 0.36 mg/dL 0.70-1.20 L [facility] Icteric Glucose [Mass/volume] in Serum or Plasma 105 mg/dL 70-140 [facility] Alkaline phosphatase [Enzymatic activity/volume] in Serum or Plasma 155 U/L 40-129 H [facility] Potassium [Moles/volume] in Serum or Plasma 3.2 mmol/L 3.4-5.1 L [facility] Protein [Mass/volume] in Serum or Plasma 7.3 g/dL 6.4-8.3 [facility] Sodium [Moles/volume] in Serum or Plasma 130 mmol/L 136-145 L [facility] Aspartate aminotransferase [Enzymatic activity/volume] in Serum or Plasma 106 U/L <40 H [facility] Urea nitrogen [Mass/volume] in Serum or Plasma 4 mg/dL 6-20 [facility] Osmolality of Serum or Plasma by calculation 267 mosm/kg 275-300 [facility] Creatinine/Urea nitrogen [Mass Ratio] in Serum or Plasma 12 [facility] Bicarbonate [Moles/volume] in Serum 24 mmol/L 22-29 [facility] Alanine aminotransferase [Enzymatic activity/volume] in Seru m or Plasma 46 U/L <41 H [facility] Anion gap 3 in Serum or Plasma 9 mmol/L 8-15 [facility] Glomerular filtration rate/1.73 sq M pre dicted among non-blacks [Volume Rate/Area] in Serum or Plasma by Creatinine-based formula (MDRD) >6 0 [facility] Glomerular filtration rate/1.73 sq M pre dicted among blacks [Volume Rate/Area] in Serum or Plasma by Creatinine-based formula (MDRD) >60 [facility] ID Date Data Source [id number] 05/01/2020 08:22:[address] [facility] Name Value Range Interpretation Code Description Data Beronica rce(s) Supporting Document(s) Glucose [Mass/volume] in Capillary blood by Glucometer 71 mg/dL 70- 140 [facility] ID Date Data Source [id number] 05/01/2020 05:33:32 AM [facility] Value Range Interpretation Code Description Data Beronica rce(s) Supporting Document(s) Prothrombin time (PT) 21.4 s 12.5-14.9 H [facility] INR in Platelet poor plasma by Coagulation assay 1.82 [facility] Routine intensity oral anticoagulation I NR is typically 2.0-3.0. Target INR must be clinically individualized. ID Date Data Source [id number] 05/01/2020 05:37:58 AM [facility] Value Range Interpretation Code Description Data Beronica rce(s) Supporting Document(s) Magnesium [Mass/volume] in Serum or Plasma 1.5 mg/dL 1.6-2.6 L [facility] ID Date Data Source [id number] 05/01/2020 05:37:58 AM [facility] Value Range Interpretation Code Description Data Beronica rce(s) Supporting Document(s) Phosphate [Mass/volume] in Serum or Plasma 2.6 mg/dL 2.5-4.5 [facility] ID Date Data Source [id number] 04/30/2020 09:11:55 PM [facility] Value Range Interpretation Code Description Data Beronica rce(s) Supporting Document(s) Glucose [Mass/volume] in Capillary blood by Glucometer 87 mg/dL 70- 140 [facility] ID Date Data Source [id number] 04/30/2020 05:04:15 PM [facility] Value Range Interpretation Code Description Data Beronica rce(s) Supporting Document(s) Glucose [Mass/volume] in Capillary blood by Glucometer 98 mg/dL 70- 140 [facility] ID Date Data Source [id number] 04/30/2020 04:20:06 PM [facility] Value Range Interpretation Code Description Data Beronica rce(s) Supporting Document(s) Magnesium [Mass/volume] in Serum or Plasma 1.6 mg/dL 1.6-2.6 [facility] ID Date Data Source [id number] 04/30/2020 04:08:24 PM [facility] Value Range Interpretation Code Description Data Beronica rce(s) Supporting Document(s) Calcium.ionized [Moles/volume] in Arterial blood 1.10 mmol/L 1.13-1.3 2 [facility] ID Date Data Source [id number] 04/30/2020 12:28:31 PM [facility] Value Range Interpretation Code Description Data Beronica rce(s) Supporting Document(s) Glucose [Mass/volume] in Capillary blood by Glucometer 96 mg/dL 70- 140 [facility] ID Date Data Source [id number] 04/30/2020 12:31:[facility] Value Range Interpretation Code Description Data Beronica rce(s) Supporting Document(s) Glucose [Mass/volume] in Capillary blood by Glucometer 88 mg/dL 70- 140 [facility] ID Date Data Source [id number] 04/30/2020 08:28:[address] [facility] Name Value Range Interpretation Code Description Data Beronica rce(s) Supporting Document(s) Glucose [Mass/volume] in Capillary blood by Glucometer 90 mg/dL 70- 140 [facility] ID Date Data Source [id number] 04/30/2020 06:44:[address] [facility] Name Value Range Interpretation Code Description Data Beronica rce(s) Supporting Document(s) Bicarbonate [Moles/volume] in Serum 24 mmol/L 22-29 [facility] Chloride [Moles/volume] in Serum or Plasma 101 mmol/L 98-107 [facility] Creatinine [Mass/volume] in Serum or Plasma 0.27 mg/dL 0.70-1.20 L [facility] Icteric Glucose [Mass/volume] in Serum or Plasma 79 mg/dL 70-140 [facility] Potassium [Moles/volume] in Serum or Plasma 3.6 mmol/L 3.4-5.1 [facility] Sodium [Moles/volume] in Serum or Plasma 133 mmol/L 136-145 L [facility] Urea nitrogen [Mass/volume] in Serum or Plasma 4 mg/dL 6-20 L [facility] Anion gap 3 in Serum or Plasma 9 mmol/L 8-15 [facility] Osmolality of Serum or Plasma by calculation 272 mosm/kg 275-300 L [facility] Creatinine/Urea nitrogen [Mass Ratio] in Serum or Plasma 13 [facility] Calcium [Mass/volume] in Serum or Plasma 7.7 mg/dL 8.6-10.0 L [facility] Glomerular filtration rate/1.73 sq M pre dicted among non-blacks [Volume Rate/Area] in Serum or Plasma by Creatinine-based formula (MDRD) >6 0 [facility] Glomerular filtration rate/1.73 sq M pre dicted among blacks [Volume Rate/Area] in Serum or Plasma by Creatinine-based formula (MDRD) >60 [facility] ID Date Data Source [id number] 04/30/2020 06:44:33 AM [facility] Value Range Interpretation Code Description Data Beronica rce(s) Supporting Document(s) Magnesium [Mass/volume] in Serum or Plasma 1.7 mg/dL 1.6-2.6 [facility] ID Date Data Source [id number] 04/30/2020 06:57:05 AM [facility] Value Range Interpretation Code Description Data Beronica rce(s) Supporting Document(s) Prothrombin time (PT) 23.2 s 12.5-14.9 H [facility] INR in Platelet poor plasma by Coagulation assay 2.02 [facility] Routine intensity oral anticoagulation I NR is typically 2.0-3.0. Target INR must be clinically individualized. ID Date Data Source [id number] 04/30/2020 07:24:53 AM [facility] Value Range Interpretation Code Description Data Beronica rce(s) Supporting Document(s) Albumin [Mass/volume] in Serum or Plasma by Bromocresol green (BCG) dye binding method 2.2 g/dL 3.5-5.2 [facility] Bil[facility].total [Mass/volume] in Serum or Plasma 13.0 mg/dL <1.2 [facility] Bilirubin.direct [Mass/volume] in Serum or Plasma 8.6 mg/dL <0.3 [facility] Alkaline phosphatase [Enzymatic activity/volume] in Serum or Plasma 143 U/L 40-129 [facility] Aspartate aminotransferase [Enzymatic activity/volume] in Serum or Plasma 108 U/L <40 [facility] Alanine aminotransferase [Enzymatic activity/volume] in Seru m or Plasma 39 U/L <41 [facility] Protein [Mass/volume] in Serum or Plasma 6.5 g/dL 6.4-8.3 [facility] ID Date Data Source [id number] 04/30/2020 07:24:53 AM [facility] Value Range Interpretation Code Description Data Beronica rce(s) Supporting Document(s) Phosphate [Mass/volume] in Serum or Plasma 2.4 mg/dL 2.5-4.5 [facility] ID Date Data Source [id number] 04/29/2020 06:20:20 PM [facility] Value Range Interpretation Code Description Data Beronica rce(s) Supporting Document(s) Bicarbonate [Moles/volume] in Serum 22 mmol/L 22-29 [facility] Chloride [Moles/volume] in Serum or Plasma 100 mmol/L 98-107 [facility] Creatinine [Mass/volume] in Serum or Plasma 0.31 mg/dL 0.70-1.20 [facility] Icteric Glucose [Mass/volume] in Serum or Plasma 175 mg/dL 70-140 [facility] Potassium [Moles/volume] in Serum or Plasma 3.9 mmol/L 3.4-5.1 [facility] Sodium [Moles/volume] in Serum or Plasma 130 mmol/L 136-145 [facility] Urea nitrogen [Mass/volume] in Serum or Plasma 3 mg/dL 6-20 [facility] Anion gap 3 in Serum or Plasma 9 mmol/L 8-15 [facility] Osmolality of Serum or Plasma by calculation 271 mosm/kg 275-300 [facility] Creatinine/Urea nitrogen [Mass Ratio] in Serum or Plasma 10 [facility] Calcium [Mass/volume] in Serum or Plasma 7.9 mg/dL 8.6-10.0 L [facility] Glomerular filtration rate/1.73 sq M pre dicted among non-blacks [Volume Rate/Area] in Serum or Plasma by Creatinine-based formula (MDRD) >6 0 [facility] Glomerular filtration rate/1.73 sq M pre dicted among blacks [Volume Rate/Area] in Serum or Plasma by Creatinine-based formula (MDRD) >60 [facility] ID Date Data Source [id number] 04/29/2020 06:20:20 PM EDT [facility] Value Range Interpretation Code Description Data Beronica rce(s) Supporting Document(s) Magnesium [Mass/volume] in Serum or Plasma 1.8 mg/dL 1.6-2.6 [facility] ID Date Data Source [id number] 04/29/2020 05:02:58 PM EDT [facility] Value Range Interpretation Code Description Data Beronica rce(s) Supporting Document(s) Glucose [Mass/volume] in Capillary blood by Glucometer 128 mg/dL 70- 140 [facility] ID Date Data Source [id number] 04/29/2020 04:25:37 PM EDT [facility] Value Range Interpretation Code Description Data Beronica rce(s) Supporting Document(s) [facility] [id number] lbm [file] mail [id number] [file] [id number] ID Date Data Source [id number] [facility]2020 [facility]15[facility] Value Range Interpretation Code Description Data Beronica rce(s) Supporting Document(s) Glucose [Mass/volume] in Capillary blood by Glucometer 85 mg/dL 70- 140 [facility] ID Date Data Source [id number] 04/29/2020 08:28:[address] [facility] Name Value Range Interpretation Code Description Data Beronica rce(s) Supporting Document(s) Glucose [Mass/volume] in Capillary blood by Glucometer 71 mg/dL 70- 140 [facility] ID Date Data Source [id number] 04/29/2020 06:52:27 AM [facility] Value Range Interpretation Code Description Data Beronica rce(s) Supporting Document(s) Albumin [Mass/volume] in Serum or Plasma by Bromocresol green (BCG) dye binding method 2.1 g/dL 3.5-[facility].2 [facility] [Mass/volume] in Serum or Plasma 12.9 mg/dL <1.2 [facility] Calcium [Mass/volume] in Serum or Plasma 7.6 mg/dL 8.6-10.0 [facility] Chloride [Moles/volume] in Serum or Plasma 105 mmol/L 98-107 [facility] Creatinine [Mass/volume] in Serum or Plasma 0.34 mg/dL 0.70-1.20 [facility] Icteric Glucose [Mass/volume] in Serum or Plasma 77 mg/dL 70-140 [facility] Alkaline phosphatase [Enzymatic activity/volume] in Serum or Plasma 147 U/L 40-129 [facility] Potassium [Moles/volume] in Serum or Plasma 3.4 mmol/L 3.4-5.1 [facility] Protein [Mass/volume] in Serum or Plasma 6.4 g/dL 6.4-8.3 [facility] Sodium [Moles/volume] in Serum or Plasma 135 mmol/L 136-145 [facility] Aspartate aminotransferase [Enzymatic activity/volume] in Serum or Plasma 122 U/L <40 [facility] Urea nitrogen [Mass/volume] in Serum or Plasma 3 mg/dL 6-20 [facility] Osmolality of Serum or Plasma by calculation 275 mosm/kg 275-300 [facility] Creatinine/Urea nitrogen [Mass Ratio] in Serum or Plasma 8 [facility] Bicarbonate [Moles/volume] in Serum 23 mmol/L 22-29 [facility] Alanine aminotransferase [Enzymatic activity/volume] in Seru m or Plasma 42 U/L <41 [facility] Anion gap 3 in Serum or Plasma 7 mmol/L 8-15 L [facility] Glomerular filtration rate/1.73 sq M pre dicted among non-blacks [Volume Rate/Area] in Serum or Plasma by Creatinine-based formula (MDRD) >6 0 [facility] Glomerular filtration rate/1.73 sq M pre dicted among blacks [Volume Rate/Area] in Serum or Plasma by Creatinine-based formula (MDRD) >60 [facility] ID Date Data Source [id number] 04/29/2020 07:23:40 AM EDT [facility] Name Value Range Interpretation Code Description Data Beronica rce(s) Supporting Document(s) Leukocytes [#/volume] in Blood by Automated count 4.7 10*3/uL 4-10 [facility] Erythrocytes [#/volume] in Blood by Automated count 2.79 10*6/uL 4.6- 6.1 [facility] Hemoglobin [Mass/volume] in Blood 10.1 g/dL 13.5-18 [facility] Hematocrit [Volume Fraction] of Blood by Automated count 29.4 % 4 1-53 [facility] Erythrocyte mean corpuscular volume [Entitic volume] b y Automated count 105.1 fL 80-96 [facility] Erythrocyte mean corpuscular hemoglobin [Entitic mass] by Automated count 36.2 pg 27-33 [facility] Erythrocyte mean corpuscular hemoglobin concentration [Mass/volume] by Automated count 34.5 g/dL 32.0-36.0 [facility] Erythrocyte distribution width [Ratio] by Automated count 16.0 % 11.5-14.5 [facility] Platelets [#/volume] in Blood by Automated count 73 10*3/uL 150-400 [facility] Differential cell count method - Blood [facility] Neutrophils/100 leukocytes in Blood by Automated count 71 % [facility] Lymphocytes/100 leukocytes in Blood by Automated count 21 % [facility] Monocytes/100 leukocytes in Blood by Automated count 5 % [facility] Eosinophils/100 leukocytes in Blood by Automated count 1 % [facility] Neutrophils [#/volume] in Blood by Automated count 3.55 10*3/uL 1.8-7 .0 [facility] Lymphocytes [#/volume] in Blood by Automated count 1.05 10*3/uL 1.2-4 .0 L [facility] Monocytes [#/volume] in Blood by Automated count 0.25 10*3/uL 0-0.8 [facility] Eosinophils [#/volume] in Blood by Automated count 0.05 10*3/uL 0-0.5 [facility] Nucleated erythrocytes/100 leukocytes [Ratio] in Blood by Automated count 1 /100{WBCs} 0-0 [facility] Variant lymphocytes/100 leukocytes in Blood by Manual count 1 % [facility] Myelocytes/100 leukocytes in Blood by Manual count 1 % [facility] Lymphocytes [#/volume] in Blood 0.05 10*3/uL 0 [facility] Myelocytes [#/volume] in Blood by Manual count 0.05 10*3/uL 0-0 [facility] Macrocytes [Presence] in Blood by Light microscopy [facility] Anisocytosis [Presence] in Blood by Light microscopy [facility] Target cells [Presence] in Blood by Light microscopy [facility] ID Date Data Source [id number] 04/29/2020 04:49:39 AM [facility] Value Range Interpretation Code Description Data Beronica rce(s) Supporting Document(s) Prothrombin time (PT) 23.1 s 12.5-14.9 [facility] INR in Platelet poor plasma by Coagulation assay 2.00 [facility] Routine intensity oral anticoagulation I NR is typically 2.0-3.0. Target INR must be clinically individualized. ID Date Data Source [id number] 04/28/2020 11:00:55 PM [facility] Value Range Interpretation Code Description Data Beronica rce(s) Supporting Document(s) Bicarbonate [Moles/volume] in Serum 21 mmol/L 22-29 [facility] Chloride [Moles/volume] in Serum or Plasma 106 mmol/L 98-107 [facility] Creatinine [Mass/volume] in Serum or Plasma 0.31 mg/dL 0.70-1.20 L [facility] Icteric Glucose [Mass/volume] in Serum or Plasma 102 mg/dL 70-140 [facility] Potassium [Moles/volume] in Serum or Plasma 3.9 mmol/L 3.4-5.1 [facility] Sodium [Moles/volume] in Serum or Plasma 136 mmol/L 136-145 [facility] Urea nitrogen [Mass/volume] in Serum or Plasma 2 mg/dL 6-20 [facility] Anion gap 3 in Serum or Plasma 9 mmol/L 8-15 [facility] Osmolality of Serum or Plasma by calculation 279 mosm/kg 275-300 [facility] Creatinine/Urea nitrogen [Mass Ratio] in Serum or Plasma 8 [facility] Calcium [Mass/volume] in Serum or Plasma 7.3 mg/dL 8.6-10.0 L [facility] Glomerular filtration rate/1.73 sq M pre dicted among non-blacks [Volume Rate/Area] in Serum or Plasma by Creatinine-based formula (MDRD) >6 0 [facility] Glomerular filtration rate/1.73 sq M pre dicted among blacks [Volume Rate/Area] in Serum or Plasma by Creatinine-based formula (MDRD) >60 [facility] ID Date Data Source [id number] 04/28/2020 11:00:[address] [facility] Name Value Range Interpretation Code Description Data Beronica rce(s) Supporting Document(s) Magnesium [Mass/volume] in Serum or Plasma 1.7 mg/dL 1.6-2.6 [facility] ID Date Data Source [id number] 04/28/2020 08:58:54 PM EDT [facility] Name Value Range Interpretation Code Description Data Beronica rce(s) Supporting Document(s) Glucose [Mass/volume] in Capillary blood by Glucometer 123 mg/dL 70- 140 [facility] ID Date Data Source [id number] 04/28/2020 05:22:49 PM [facility] Value Range Interpretation Code Description Data Beronica rce(s) Supporting Document(s) Glucose [Mass/volume] in Capillary blood by Glucometer 135 mg/dL 70- 140 [facility] ID Date Data Source [id number] 04/28/2020 01:56:[address] [facility] US ABDOMEN LIMITED [id number] RESULTInte rpreted by:JAYSON ThorpeLINICAL HISTORY:49-year-old male with [...] rce(s) Supporting Document(s) ID Date Data Source [id number] 04/28/2020 12:39:[address] [facility] Name Value Range Interpretation Code Description Data Beronica rce(s) Supporting Document(s) Glucose [Mass/volume] in Capillary blood by Glucometer 113 mg/dL 70- 140 [facility] ID Date Data Source [id number] 04/28/2020 08:37:14 AM [facility] Value Range Interpretation Code Description Data Beronica rce(s) Supporting Document(s) Glucose [Mass/volume] in Capillary blood by Glucometer 95 mg/dL 70- 140 [facility] ID Date Data Source [id number] 04/28/2020 08:59:42 AM [facility] Value Range Interpretation Code Description Data Beronica rce(s) Supporting Document(s) Albumin [Mass/volume] in Serum or Plasma by Bromocresol green (BCG) dye binding method 2.3 g/dL 3.5-5.2 [facility] Bil[facility] [Mass/volume] in Serum or Plasma 14.5 mg/dL <1.2 [facility] Bilirubin.direct [Mass/volume] in Serum or Plasma 10.0 mg/dL <0.3 [facility] Alkaline phosphatase [Enzymatic activity/volume] in Serum or Plasma 155 U/L 40-129 [facility] Aspartate aminotransferase [Enzymatic activity/volume] in Serum or Plasma 177 U/L <40 [facility] Alanine aminotransferase [Enzymatic activity/volume] in Seru m or Plasma 49 U/L <41 [facility] Protein [Mass/volume] in Serum or Plasma 6.6 g/dL 6.4-8.3 [facility] ID Date Data Source [id number] 04/28/2020 08:59:[address] [facility] Name Value Range Interpretation Code Description Data Beronica rce(s) Supporting Document(s) Magnesium [Mass/volume] in Serum or Plasma 1.8 mg/dL 1.6-2.6 [facility] ID Date Data Source [id number] 04/28/2020 08:59:[address] [facility] Name Value Range Interpretation Code Description Data Beronica rce(s) Supporting Document(s) Bicarbonate [Moles/volume] in Serum 23 mmol/L 22-29 [facility] Chloride [Moles/volume] in Serum or Plasma 101 mmol/L 98-107 [facility] Creatinine [Mass/volume] in Serum or Plasma 0.24 mg/dL 0.70-1.20 [facility] Icteric Glucose [Mass/volume] in Serum or Plasma 105 mg/dL 70-140 [facility] Potassium [Moles/volume] in Serum or Plasma 3.3 mmol/L 3.4-5.1 L [facility] Sodium [Moles/volume] in Serum or Plasma 134 mmol/L 136-145 [facility] Urea nitrogen [Mass/volume] in Serum or Plasma 2 mg/dL 6-20 L [facility] Anion gap 3 in Serum or Plasma 9 mmol/L 8-15 [facility] Osmolality of Serum or Plasma by calculation 275 mosm/kg 275-300 [facility] Creatinine/Urea nitrogen [Mass Ratio] in Serum or Plasma 8 [facility] Calcium [Mass/volume] in Serum or Plasma 7.5 mg/dL 8.6-10.0 L [facility] Glomerular filtration rate/1.73 sq M pre dicted among non-blacks [Volume Rate/Area] in Serum or Plasma by Creatinine-based formula (MDRD) >6 0 [facility] Glomerular filtration rate/1.73 sq M pre dicted among blacks [Volume Rate/Area] in Serum or Plasma by Creatinine-based formula (MDRD) >60 [facility] ID Date Data Source [id number] 04/28/2020 09:29:46 AM EDT [facility] Name Value Range Interpretation Code Description Data Beronica rce(s) Supporting Document(s) Leukocytes [#/volume] in Blood by Automated count 5.6 10*3/uL 4-10 [facility] Erythrocytes [#/volume] in Blood by Automated count 2.85 10*6/uL 4.6- 6.1 L [facility] Hemoglobin [Mass/volume] in Blood 10.4 g/dL 13.5-18 L [facility] Hematocrit [Volume Fraction] of Blood by Automated count 30.1 % 4 1-53 L [facility] Erythrocyte mean corpuscular volume [Entitic volume] b y Automated count 105.4 fL 80-96 [facility] Erythrocyte mean corpuscular hemoglobin [Entitic mass] by Automated count 36.4 pg 27-33 [facility] Erythrocyte mean corpuscular hemoglobin concentration [Mass/volume] by Automated count 34.5 g/dL 32.0-36.0 [facility] width [Ratio] by Automated count 16.4 % 11.5-14.5 [facility] Platelets [#/volume] in Blood by Automated count 67 10*3/uL 150-400 L [facility] Differential cell count method - Blood [facility] Neutrophils/100 leukocytes in Blood by Automated count 79 % [facility] Lymphocytes/100 leukocytes in Blood by Automated count 12 % [facility] Monocytes/100 leukocytes in Blood by Automated count 6 % [facility] Basophils/100 leukocytes in Blood by Automated count 1 % [facility] Neutrophils [#/volume] in Blood by Automated count 4.50 10*3/uL 1.8-7 .0 [facility] Lymphocytes [#/volume] in Blood by Automated count 0.68 10*3/uL 1.2-4 .0 L [facility] Monocytes [#/volume] in Blood by Automated count 0.34 10*3/uL 0-0.8 [facility] Basophils [#/volume] in Blood by Automated count 0.06 10*3/uL 0-0.2 [facility] Variant lymphocytes/100 leukocytes in Blood by Manual count 2 % [facility] Lymphocytes [#/volume] in Blood 0.11 10*3/uL 0 H [facility] Macrocytes [Presence] in Blood by Light microscopy [facility] Anisocytosis [Presence] in Blood by Light microscopy [facility] Polychromasia [Presence] in Blood by Light microscopy [facility] Rouleaux [Presence] in Blood by Light [facility] Target cells [Presence] in Blood by [facility] ID Date Data Source [id number] 04/28/2020 07:49:33 AM [facility] Value Range Interpretation Code Description Data Beronica rce(s) Supporting Document(s) Glucose [Mass/volume] in Capillary blood by Glucometer 121 mg/dL 70- 140 [facility] ID Date Data Source [id number] 04/28/2020 05:53:37 AM [facility] Value Range Interpretation Code Description Data Beronica rce(s) Supporting Document(s) Prothrombin time (PT) 26.9 s 12.5-14.9 H [facility] INR in Platelet poor plasma by Coagulation assay 2.43 [facility] Routine intensity oral anticoagulation I NR is typically 2.0-3.0. Target INR must be clinically individualized. ID Date Data Source [id number] 04/27/2020 09:17:05 PM [facility] Value Range Interpretation Code Description Data Beronica rce(s) Supporting Document(s) Glucose [Mass/volume] in Capillary blood by Glucometer 170 mg/dL 70- 140 [facility] ID Date Data Source [id number] 04/27/2020 07:01:20 PM [facility] Value Range Interpretation Code Description Data Beronica rce(s) Supporting Document(s) Albumin [Mass/volume] in Serum or Plasma by Bromocresol green (BCG) dye binding method 2.4 g/dL 3.5-5.2 [facility] Bil[facility].total [Mass/volume] in Serum or Plasma 15.8 mg/dL <1.2 [facility] Bilirubin.direct [Mass/volume] in Serum or Plasma 11.8 mg/dL <0.3 H [facility] Confirmed Alkaline phosphatase [Enzymatic activity/volume] in Serum or Plasma 170 U/L 40-129 [facility] Aspartate aminotransferase [Enzymatic activity/volume] in Serum or Plasma 231 U/L <40 [facility] Alanine aminotransferase [Enzymatic activity/volume] in Seru m or Plasma 57 U/L <41 [facility] Protein [Mass/volume] in Serum or Plasma 7.1 g/dL 6.4-8.3 [facility] ID Date Data Source [id number] 04/27/2020 07:01:[address] [facility] Name Value Range Interpretation Code Description Data Beronica rce(s) Supporting Document(s) Bicarbonate [Moles/volume] in Serum 20 mmol/L 22-29 L [facility] Chloride [Moles/volume] in Serum or Plasma 95 mmol/L 98-107 L [facility] Creatinine [Mass/volume] in Serum or Plasma 0.70-1.20 L [facility] IctericConfirmed Glucose [Mass/volume] in Serum or Plasma 271 mg/dL 70-140 [facility] Potassium [Moles/volume] in Serum or Plasma 3.8 mmol/L 3.4-5.1 [facility] Sodium [Moles/volume] in Serum or Plasma 126 mmol/L 136-145 L [facility] Urea nitrogen [Mass/volume] in Serum or Plasma 6-20 L [facility] Confirmed Anion gap 3 in Serum or Plasma 11 mmol/L 8-15 [facility] Osmolality of Serum or Plasma by calculation 275-300 [facility] Creatinine/Urea nitrogen [Mass Ratio] in Serum or Plasma [facility] Calcium [Mass/volume] in Serum or Plasma 7.6 mg/dL 8.6-10.0 L [facility] Glomerular filtration rate/1.73 sq M pre dicted among non-blacks [Volume Rate/Area] in Serum or Plasma by Creatinine-based formula (MDRD) >6 0 [facility] Glomerular filtration rate/1.73 sq M pre dicted among blacks [Volume Rate/Area] in Serum or Plasma by Creatinine-based formula (MDRD) >60 [facility] ID Date Data Source [id number] 04/27/2020 07:01:[address] [facility] Name Value Range Interpretation Code Description Data Beronica rce(s) Supporting Document(s) Thyrotropin [Units/volume] in Serum or Plasma 1.840 u[IU]/mL 0.270-4. 200 [facility] ID Date Data Source [id number] 04/27/2020 07:01:[address] [facility] Name Value Range Interpretation Code Description Data Beronica rce(s) Supporting Document(s) Magnesium [Mass/volume] in Serum or Plasma 2.1 mg/dL 1.6-2.6 [facility] ID Date Data Source [id number] 04/27/2020 07:27:14 PM EDT [facility] Name Value Range Interpretation Code Description Data Beronica rce(s) Supporting Document(s) Leukocytes [#/volume] in Blood by Automated count 3.1 10*3/uL 4-10 L [facility] Erythrocytes [#/volume] in Blood by Automated count 3.03 10*6/uL 4.6- 6.1 L [facility] Hemoglobin [Mass/volume] in Blood 10.9 g/dL 13.5-18 L [facility] Hematocrit [Volume Fraction] of Blood by Automated count 31.8 % 4 1-53 L [facility] Erythrocyte mean corpuscular volume [Entitic volume] b y Automated count 105.0 fL 80-96 H [facility] Erythrocyte mean corpuscular hemoglobin [Entitic mass] by Automated count 36.0 pg 27-33 H [facility] Erythrocyte mean corpuscular hemoglobin concentration [Mass/volume] by Automated count 34.3 g/dL 32.0-36.0 [facility] width [Ratio] by Automated count 16.2 % 11.5-14.5 [facility] Platelets [#/volume] in Blood by Automated count 56 10*3/uL 150-400 L [facility] Differential cell count method - Blood [facility] Neutrophils/100 leukocytes in Blood by Automated count 90 % [facility] Lymphocytes/100 leukocytes in Blood by Automated count 8 % [facility] Monocytes/100 leukocytes in Blood by Automated count 1 % [facility] Neutrophils [#/volume] in Blood by Automated count 2.79 10*3/uL 1.8-7 .0 [facility] Lymphocytes [#/volume] in Blood by Automated count 0.25 10*3/uL 1.2-4 .0 L [facility] Monocytes [#/volume] in Blood by Automated count 0.03 10*3/uL 0-0.8 [facility] Band form neutrophils/100 leukocytes in Blood by Manual count 1 % [facility] Band form neutrophils [#/volume] in Blood by Manual count 0.03 10*3 /uL 0-0.6 [facility] Macrocytes [Presence] in Blood by Light microscopy [facility] Anisocytosis [Presence] in Blood by Light microscopy [facility] Target cells [Presence] in Blood by Light microscopy [facility] ID Date Data Source [id number] 04/27/2020 06:28:09 PM EDT [facility] Value Range Interpretation Code Description Data Beronica rce(s) Supporting Document(s) Ammonia [Moles/volume] in Plasma 16-60 L [facility] ID Date Data Source [id number] 04/27/2020 04:55:19 PM EDT [facility] Name Value Range Interpretation Code Description Data Beronica rce(s) Supporting Document(s) Glucose [Mass/volume] in Capillary blood by Glucometer 140 mg/dL 70- 140 [facility] ID Date Data Source [id number] 04/27/2020 12:15:41 PM EDT [facility] Value Range Interpretation Code Description Data Beronica rce(s) Supporting Document(s) Glucose [Mass/volume] in Capillary blood by Glucometer 110 mg/dL 70- 140 [facility] ID Date Data Source [id number] 04/27/2020 10:07:03 AM EDT [facility] Value Range Interpretation Code Description Data Beronica rce(s) Supporting Document(s) Consultation [facility] [id number] lbm [file] [employer]/[id number] [file] ID Date Data Source [id number] 04/27/2020 08:36:55 AM EDT [facility] Name Value Range Interpretation Code Description Data Beronica rce(s) Supporting Document(s) Leukocytes [#/volume] in Blood by Automated count 4.2 10*3/uL 4-10 [facility] Erythrocytes [#/volume] in Blood by Automated count 3.10 10*6/uL 4.6- 6.1 L [facility] Hemoglobin [Mass/volume] in Blood 11.1 g/dL 13.5-18 L [facility] Hematocrit [Volume Fraction] of Blood by Automated count 32.3 % 4 1-53 L [facility] Erythrocyte mean corpuscular volume [Entitic volume] b y Automated count 104.3 fL 80-96 H [facility] Erythrocyte mean corpuscular hemoglobin [Entitic mass] by Automated count 35.8 pg 27-33 H [facility] Erythrocyte mean corpuscular hemoglobin concentration [Mass/volume] by Automated count 34.4 g/dL 32.0-36.[facility] width [Ratio] by Automated count 16.3 % 11.5-14.5 H [facility] Platelets [#/volume] in Blood by Automated count 51 10*3/uL 150-400 L [facility] Differential cell count method - Blood [facility] Neutrophils/100 leukocytes in Blood by Automated count 61 % [facility] Lymphocytes/100 leukocytes in Blood by Automated count 28 % [facility] Monocytes/100 leukocytes in Blood by Automated count 9 % [facility] Eosinophils/100 leukocytes in Blood by Automated count 1 % [facility] Basophils/100 leukocytes in Blood by Automated count 1 % [facility] Neutrophils [#/volume] in Blood by Automated count 2.60 10*3/uL 1.8-7 .0 [facility] Lymphocytes [#/volume] in Blood by Automated count 1.16 10*3/uL 1.2-4 .0 L [facility] Monocytes [#/volume] in Blood by Automated count 0.36 10*3/uL 0-0.8 [facility] Eosinophils [#/volume] in Blood by Automated count 0.04 10*3/uL 0-0.5 [facility] Basophils [#/volume] in Blood by Automated count 0.03 10*3/uL 0-0.2 [facility] Nucleated erythrocytes/100 leukocytes [Ratio] in Blood by Automated count 0 /100{WBCs} 0-0 [facility] ID Date Data Source [id number] 04/27/2020 09:22:07 AM EDT [facility] Name Value Range Interpretation Code Description Data Beronica rce(s) Supporting Document(s) Bicarbonate [Moles/volume] in Serum 25 mmol/L 22-29 [facility] Chloride [Moles/volume] in Serum or Plasma 96 mmol/L 98-107 L [facility] Creatinine [Mass/volume] in Serum or Plasma 0.38 mg/dL 0.70-1.20 [facility] Glucose [Mass/volume] in Serum or Plasma 80 mg/dL 70-140 [facility] Potassium [Moles/volume] in Serum or Plasma 3.3 mmol/L 3.4-5.1 L [facility] Sodium [Moles/volume] in Serum or Plasma 131 mmol/L 136-145 L [facility] Urea nitrogen [Mass/volume] in Serum or Plasma 2 mg/dL 6-20 [facility] Anion gap 3 in Serum or Plasma 10 mmol/L 8-15 [facility] Osmolality of Serum or Plasma by calculation 267 mosm/kg 275-300 L [facility] Creatinine/Urea nitrogen [Mass Ratio] in Serum or Plasma 4 [facility] Calcium [Mass/volume] in Serum or Plasma 7.6 mg/dL 8.6-10.0 [facility] Glomerular filtration rate/1.73 sq M pre dicted among non-blacks [Volume Rate/Area] in Serum or Plasma by Creatinine-based formula (MDRD) >6 0 [facility] Glomerular filtration rate/1.73 sq M pre dicted among blacks [Volume Rate/Area] in Serum or Plasma by Creatinine-based formula (MDRD) >60 [facility] ID Date Data Source [id number] 04/27/2020 09:22:[address] [facility] Name Value Range Interpretation Code Description Data Beronica rce(s) Supporting Document(s) Magnesium [Mass/volume] in Serum or Plasma 1.7 mg/dL 1.6-2.6 [facility] ID Date Data Source [id number] 04/27/2020 09:51:[address] [facility] Name Value Range Interpretation Code Description Data Beronica rce(s) Supporting Document(s) Albumin [Mass/volume] in Serum or Plasma by Bromocresol green (BCG) dye binding method 2.3 g/dL 3.5-5.2 [facility] Bilirubin.total [Mass/volume] in Serum or Plasma 15.1 mg/dL <1.2 H [facility] Bilirubin.direct [Mass/volume] in Serum or Plasma 11.1 mg/dL <0.3 H [facility] Confirmed Alkaline phosphatase [Enzymatic activity/volume] in Serum or Plasma 170 U/L 40-129 H [facility] Aspartate aminotransferase [Enzymatic activity/volume] in Serum or Plasma 261 U/L <40 H [facility] Alanine aminotransferase [Enzymatic activity/volume] in Seru m or Plasma 58 U/L <41 H [facility] Protein [Mass/volume] in Serum or Plasma 6.9 g/dL 6.4-8.3 [facility] ID Date Data Source [id number] 04/27/2020 08:19:05 AM [facility] Value Range Interpretation Code Description Data Beronica rce(s) Supporting Document(s) Glucose [Mass/volume] in Capillary blood by Glucometer 72 mg/dL 70- 140 [facility] ID Date Data Source [id number] 04/27/2020 04:14:02 AM [facility] Value Range Interpretation Code Description Data Beronica rce(s) Supporting Document(s) Prothrombin time (PT) 26.1 s 12.5-14.9 H [facility] INR in Platelet poor plasma by Coagulation assay 2.34 [facility] Routine intensity oral anticoagulation I NR is typically 2.0-3.0. Target INR must be clinically individualized. ID Date Data Source [id number] 04/26/2020 09:54:49 PM [facility] Value Range Interpretation Code Description Data Beronica rce(s) Supporting Document(s) Glucose [Mass/volume] in Capillary blood by Glucometer 75 mg/dL 70- 140 [facility] ID Date Data Source [id number] 04/26/2020 08:48:12 PM [facility] Value Range Interpretation Code Description Data Beronica rce(s) Supporting Document(s) Lactate [Moles/volume] in Serum or Plasma 2.2 mmol/l 0.5-2.2 [facility] ID Date Data Source [id number] 04/26/2020 04:58:16 PM [facility] Value Range Interpretation Code Description Data Beronica rce(s) Supporting Document(s) Glucose [Mass/volume] in Capillary blood by Glucometer 77 mg/dL 70- 140 [facility] ID Date Data Source [id number] 04/26/2020 04:48:[address] [facility] Name Value Range Interpretation Code Description Data Beronica rce(s) Supporting Document(s) Albumin [Mass/volume] in Serum or Plasma by Bromocresol green (BCG) dye binding method 2.6 g/dL 3.5-5.2 [facility] Bilirubin.total [Mass/volume] in Serum or Plasma 14.8 mg/dL <1.2 H [facility] Bilirubin.direct [Mass/volume] in Serum or Plasma 9.8 mg/dL <0.3 H [facility] Alkaline phosphatase [Enzymatic activity/volume] in Serum or Plasma 180 U/L 40-129 H [facility] Aspartate aminotransferase [Enzymatic activity/volume] in Serum or Plasma 321 U/L <40 H [facility] Alanine aminotransferase [Enzymatic activity/volume] in Seru m or Plasma 63 U/L <41 H [facility] Protein [Mass/volume] in Serum or Plasma 7.2 g/dL 6.4-8.3 [facility] ID Date Data Source [id number] 04/26/2020 04:48:01 PM [facility] Value Range Interpretation Code Description Data Beronica rce(s) Supporting Document(s) Magnesium [Mass/volume] in Serum or Plasma 2.0 mg/dL 1.6-2.6 [facility] ID Date Data Source [id number] 04/26/2020 04:48:01 PM [facility] Value Range Interpretation Code Description Data Beronica rce(s) Supporting Document(s) Bicarbonate [Moles/volume] in Serum 27 mmol/L 22-29 [facility] Chloride [Moles/volume] in Serum or Plasma 96 mmol/L 98-107 L [facility] Creatinine [Mass/volume] in Serum or Plasma 0.58 mg/dL 0.70-1.20 L [facility] Icteric Glucose [Mass/volume] in Serum or Plasma 80 mg/dL 70-140 [facility] Potassium [Moles/volume] in Serum or Plasma 3.4 mmol/L 3.4-5.1 [facility] Sodium [Moles/volume] in Serum or Plasma 133 mmol/L 136-145 L [facility] Urea nitrogen [Mass/volume] in Serum or Plasma 2 mg/dL 6-20 L [facility] Anion gap 3 in Serum or Plasma 11 mmol/L 8-15 [facility] Osmolality of Serum or Plasma by calculation 271 mosm/kg 275-300 L [facility] Creatinine/Urea nitrogen [Mass Ratio] in Serum or Plasma 4 [facility] Calcium [Mass/volume] in Serum or Plasma 7.5 mg/dL 8.6-10.0 L [facility] Glomerular filtration rate/1.73 sq M pre dicted among non-blacks [Volume Rate/Area] in Serum or Plasma by Creatinine-based formula (MDRD) >6 0 [facility] Glomerular filtration rate/1.73 sq M pre dicted among blacks [Volume Rate/Area] in Serum or Plasma by Creatinine-based formula (MDRD) >60 [facility] ID Date Data Source [id number] 04/26/2020 05:40:59 PM EDT [facility] Name Value Range Interpretation Code Description Data Beronica rce(s) Supporting Document(s) Leukocytes [#/volume] in Blood by Automated count 4.7 10*3/uL 4-10 [facility] Erythrocytes [#/volume] in Blood by Automated count 3.03 10*6/uL 4.6- 6.1 L [facility] Hemoglobin [Mass/volume] in Blood 10.9 g/dL 13.5-18 L [facility] Hematocrit [Volume Fraction] of Blood by Automated count 31.4 % 4 1-53 L [facility] Erythrocyte mean corpuscular volume [Entitic volume] b y Automated count 103.4 fL 80-96 H [facility] Erythrocyte mean corpuscular hemoglobin [Entitic mass] by Automated count 36.0 pg 27-33 H [facility] Erythrocyte mean corpuscular hemoglobin concentration [Mass/volume] by Automated count 34.8 g/dL 32.0-36.0 [facility] width [Ratio] by Automated count 16.1 % 11.5-14.5 H [facility] Platelets [#/volume] in Blood by Automated count 43 10*3/uL 150-400 L [facility] ConfirmedGIANT PLATELETS PRESENT Differential cell count method - Blood [facility] Neutrophils/100 leukocytes in Blood by Automated count 70 % [facility] Lymphocytes/100 leukocytes in Blood by Automated count 19 % [facility] Monocytes/100 leukocytes in Blood by Automated count 8 % [facility] Neutrophils [#/volume] in Blood by Automated count 3.29 10*3/uL 1.8-7 .0 [facility] Lymphocytes [#/volume] in Blood by Automated count 0.89 10*3/uL 1.2-4 .0 L [facility] Monocytes [#/volume] in Blood by Automated count 0.38 10*3/uL 0-0.8 [facility] Band form neutrophils/100 leukocytes in Blood by Manual count 3 % [facility] Band form neutrophils [#/volume] in Blood by Manual count 0.14 10*3 /uL 0-0.6 [facility] Macrocytes [Presence] in Blood by Light microscopy [facility] Anisocytosis [Presence] in Blood by Light microscopy [facility] Target cells [Presence] in Blood by Light microscopy [facility] ID Date Data Source [id number] 04/26/2020 04:35:01 PM [facility] Value Range Interpretation Code Description Data Beronica rce(s) Supporting Document(s) Lactate [Moles/volume] in Serum or Plasma 2.7 mmol/l 0.5-2.2 H [facility] ID Date Data Source [id number] 04/26/2020 12:29:13 PM [facility] Value Range Interpretation Code Description Data Beronica rce(s) Supporting Document(s) Glucose [Mass/volume] in Capillary blood by Glucometer 104 mg/dL 70- 140 [facility] ID Date Data Source [id number] 04/26/2020 12:03:10 PM [facility] Value Range Interpretation Code Description Data Beronica rce(s) Supporting Document(s) Prothrombin time (PT) 25.9 s 12.5-14.9 H [facility] INR in Platelet poor plasma by Coagulation assay 2.32 [facility] Routine intensity oral anticoagulation I NR is typically 2.0-3.0. Target INR must be clinically individualized. ID Date Data Source [id number] 04/26/2020 11:33:51 AM [facility] Value Range Interpretation Code Description Data Beronica rce(s) Supporting Document(s) Ammonia [Moles/volume] in Plasma 15 umol/L 16-60 L [facility] I[facility]eric ID Date Data Source [id number] 04/26/2020 11:30:31 AM [facility] Value Range Interpretation Code Description Data Beronica rce(s) Supporting Document(s) Lactate [Moles/volume] in Serum or Plasma 3.6 mmol/l 0.5-2.2 H [facility] ID Date Data Source [id number] 04/26/2020 11:26:50 AM [facility] Value Range Interpretation Code Description Data Beronica rce(s) Supporting Document(s) Color of Urine [facility] Clarity of Urine [facility] Specific gravity of Urine by Refractometry automated 1.012 1.003 -1.030 [facility] pH of Urine by Automated test strip 6.0 5.0-8.0 [facility] Protein [Mass/volume] in Urine by Automated test strip Neg [facility] Glucose [Mass/volume] in Urine by Automated test strip Neg [facility] Ketones [Mass/volume] in Urine by Automated test strip Neg [facility] Bilirubin.total [Presence] in Urine by Automated test strip Negative [facility] False-positive results may occur with ce rtain food additives or medications. Hemoglobin [Presence] in Urine by Automated test strip Neg ative [facility] Leukocyte esterase [Presence] in Urine by Automated test strip Negative [facility] Nitrite [Presence] in Urine by Automated test strip Negati ve [facility] Leukocytes [#/area] in Urine sediment by Automated count 5 /HPF 0 -5 [facility] Erythrocytes [#/area] in Urine sediment by Automated count 0-3 [facility] Bacteria [#/area] in Urine sediment by Automated count Non e A [facility] ID Date Data Source [id number] 04/26/2020 09:46:29 AM T [facility] Value Range Interpretation Code Description Data Beronica rce(s) Supporting Document(s) Potassium [Moles/volume] in Urine 27.7 mmol/L [facility] ID Date Data Source [id number] 04/26/2020 09:46:29 AM [facility] Value Range Interpretation Code Description Data Beronica rce(s) Supporting Document(s) Sodium [Moles/volume] in Urine 30 mmol/L [facility] ID Date Data Source [id number] 04/26/2020 11:53:12 AM [facility] Value Range Interpretation Code Description Data Beronica rce(s) Supporting Document(s) Osmolality of Urine 227 mosm/kg 300-1000 L [facility] ID Date Data Source [id number] 04/26/2020 08:38:[address] [facility] Name Value Range Interpretation Code Description Data Beronica rce(s) Supporting Document(s) Glucose [Mass/volume] in Capillary blood by Glucometer 90 mg/dL 70- 140 [facility] ID Date Data Source [id number] 04/26/2020 08:10:[address] [facility] Name Value Range Interpretation Code Description Data Beronica rce(s) Supporting Document(s) Leukocytes [#/volume] in Blood by Automated count 4.7 10*3/uL 4-10 [facility] Erythrocytes [#/volume] in Blood by Automated count 3.10 10*6/uL 4.6- 6.1 L [facility] Hemoglobin [Mass/volume] in Blood 11.3 g/dL 13.5-18 L [facility] Hematocrit [Volume Fraction] of Blood by Automated count 32.0 % 4 1-53 L [facility] Erythrocyte mean corpuscular volume [Entitic volume] b y Automated count 103.2 fL 80-96 H [facility] Erythrocyte mean corpuscular hemoglobin [Entitic mass] by Automated count 36.4 pg 27-33 H [facility] Erythrocyte mean corpuscular hemoglobin concentration [Mass/volume] by Automated count 35.2 g/dL 32.0-36.0 [facility] width [Ratio] by Automated count 16.0 % 11.5-14.5 H [facility] Platelets [#/volume] in Blood by Automated count 45 10*3/uL 150-400 L [facility] Differential cell count method - Blood [facility] Neutrophils/100 leukocytes in Blood by Automated count 63 % [facility] Lymphocytes/100 leukocytes in Blood by Automated count 26 % [facility] Monocytes/100 leukocytes in Blood by Automated count 9 % [facility] Eosinophils/100 leukocytes in Blood by Automated count 1 % [facility] Basophils/100 leukocytes in Blood by Automated count 1 % [facility] Neutrophils [#/volume] in Blood by Automated count 2.97 10*3/uL 1.8-7 .0 [facility] Lymphocytes [#/volume] in Blood by Automated count 1.23 10*3/uL 1.2-4 .0 [facility] Monocytes [#/volume] in Blood by Automated count 0.44 10*3/uL 0-0.8 [facility] Eosinophils [#/volume] in Blood by Automated count 0.02 10*3/uL 0-0.5 [facility] Basophils [#/volume] in Blood by Automated count 0.03 10*3/uL 0-0.2 [facility] Nucleated erythrocytes/100 leukocytes [Ratio] in Blood by Automated count 0 /100{WBCs} 0-0 [facility] ID Date Data Source [id number] 04/26/2020 08:38:[address] [facility] Name Value Range Interpretation Code Description Data Beronica rce(s) Supporting Document(s) Albumin [Mass/volume] in Serum or Plasma by Bromocresol green (BCG) dye binding method 2.6 g/dL 3.5-5.2 [facility] Bilirubin.total [Mass/volume] in Serum or Plasma 14.1 mg/dL <1.2 H [facility] Bilirubin.direct [Mass/volume] in Serum or Plasma 9.8 mg/dL <0.3 H [facility] Alkaline phosphatase [Enzymatic activity/volume] in Serum or Plasma 193 U/L 40-129 H [facility] Aspartate aminotransferase [Enzymatic activity/volume] in Serum or Plasma 349 U/L <40 H [facility] Alanine aminotransferase [Enzymatic activity/volume] in Seru m or Plasma 72 U/L <41 H [facility] Protein [Mass/volume] in Serum or Plasma 7.3 g/dL 6.4-8.3 [facility] ID Date Data Source [id number] 04/26/2020 08:38:[address] [facility] Name Value Range Interpretation Code Description Data Beronica rce(s) Supporting Document(s) Bicarbonate [Moles/volume] in Serum 26 mmol/L 22-29 [facility] Chloride [Moles/volume] in Serum or Plasma 92 mmol/L 98-107 L [facility] Creatinine [Mass/volume] in Serum or Plasma 0.55 mg/dL 0.70-1.20 L [facility] Icteric Glucose [Mass/volume] in Serum or Plasma 88 mg/dL 70-140 [facility] Potassium [Moles/volume] in Serum or Plasma 4.2 mmol/L 3.4-5.1 [facility] Sodium [Moles/volume] in Serum or Plasma 129 mmol/L 136-145 L [facility] Urea nitrogen [Mass/volume] in Serum or Plasma 2 mg/dL 6-20 L [facility] Anion gap 3 in Serum or Plasma 11 mmol/L 8-15 [facility] Osmolality of Serum or Plasma by calculation 264 mosm/kg 275-300 L [facility] Creatinine/Urea nitrogen [Mass Ratio] in Serum or Plasma 4 [facility] Calcium [Mass/volume] in Serum or Plasma 7.9 mg/dL 8.6-10.0 L [facility] Glomerular filtration rate/1.73 sq M pre dicted among non-blacks [Volume Rate/Area] in Serum or Plasma by Creatinine-based formula (MDRD) >6 0 [facility] Glomerular filtration rate/1.73 sq M pre dicted among blacks [Volume Rate/Area] in Serum or Plasma by Creatinine-based formula (MDRD) >60 [facility] ID Date Data Source [id number] 04/26/2020 08:38:[address] [facility] Name Value Range Interpretation Code Description Data Beronica rce(s) Supporting Document(s) Magnesium [Mass/volume] in Serum or Plasma 1.5 mg/dL 1.6-2.6 [facility] ID Date Data Source [id number] 04/26/2020 07:25:[address] [facility] Name Value Range Interpretation Code Description Data Beronica rce(s) Supporting Document(s) [facility] OKGTYt7eYbELLzByk2FvHwDvMRSnOE5rftw3J5M0iXCrF4LagCWgt8ihM5AeW8BzEJPpWWPUHO5CqEFz jb2 [file] FasQor/hematology technologist/hematology technologist/wpXswyayQ5XcrBoHo9UXf/HJVvEB4CZx2KXarFqo0Wj4IKvNFv+7rtmyC29/S5mH4 wtk3KVJ54o/iajLqJy4vvYocTIR7KHUfU+SBZc1nuj 9C+singe [file] abcmhntB1E3kyoo5vxh3nrw6GhpvoBgdMxpbg3B8+b hj4w2CJTgHSR+ptSUCBk0rue5BNtWndGmmacyft+ZDrl+cqCEqn6EsBciVOa9dk9u5I622eIk3oRAs2m Az6PzSvANWOZefkz6KBgXlG5djCNFqxEUldwVH6U/0cR7sQtmDVsIT82KHkkZhUs0Oqg/iZT8v+83C2O /0vl32u7CYStc4mec8d250M0vL66WpjHXuLCxeftNO YuGwYNrFa4eBAaxuPW5niUF76xdhE3PXZe+8j2Gstitn2bbfUeBeI3HdnJtmKzuspQmjucIvY0eUFsfh xWtuOxnY6oC6VuC1kPT61c8PgdtaBCeutcial3awALmenGAuQG8Tosr3xMhsFAwjozNJOvU8iwL18xl7 6N3eeR+6ndx2FQ43vilhpgz7YyKV79NmMkfvfU/bi9 7tV+1hvaCaNNopkkSP2APv3SC6IF7dsjz+Pb9AvfX1mVQkOJ3D+et2SSgjiwC/26/itHcYzch0ZuVN1D q7lNiMbWIs+9844fPyhv/tf/6w59xikr2sqd9ruL/D/NTLM+u4HbLTRr+m53zQW91yF8K+SuX+TfZTKe fphn/zfikerRjSbqjb88+/urR7m2k+xx+wd7PPUw6q oS8l4Byy5ghj70mC3d+yEeGf9gpT9ey3oMwPQeRn7Qpt38z3wfWHpOUy2CnpggQdZPCIewp1I7Q/Igcj jslJV2wjgYlTBZQlV1leBsTRJnb/5EtkU2a/0zGWMaUGGuXSsj5y0Qj21r+POLICE [employer] OFFICER+ZgA8LMxYX4eXGAmadb [file] Bz21YVg99tGMX1ffi5GB00D/+1s3W1/dv+k41d/FG55r27b950bo0kfo9G63q5984/8qgIA74Rnylait DzqedDzpeNHxovtuuu9+j59sA9/adIhX1BLWZa7hfE qF6ZCKM/82eir6ytdgnhmzpGrpaXNkaYJXn9dTflw+1d+CBqF4e74SOx9k+YBrk41rYp9sDC4hzVtw4W 6D3nfQ+w2806OoI+p0N34zfWie0D6ok71e9I5dVl4woo/w91d/d+vk1JIcubkJV/77itPSuvyhLtehe4 f0Ald1xilxEaxneEigkmNjRNVPH2nD1YgbtYFch6/K lCo25Rra1279ucJPKFlmbXZWQGwlvAc8dwO611e9Ba62Hw494F1lpSzhuQvSxGg3FW01/sULu/XV6uPl 39+bju/xHDEX0O+/67S+un/T8fndt/UV/l50/Rozw8aR+7a+al/Snxf2iWijQ4GroCHdKTcZE28BMar2 qo/vh/7+yoN//dFufYW/Vn3wbHqD1EfEKj7vmTpauR Fxp+UFr3XPZx5HWq8yvdAG/QkDahnF85v8nh4I+gp/f/XQvy1rCSy+r5+Pvrp/r++7xPq+Bng25le5Ob qeua678/jqY+ur+tx8gdz4UwagR14OG/49O/su0Af38p931Rf6ma3EhM865tF1e4lxrC2NTRG60c/93c fP+193o4zg//n7QR61SyN90bvks2vu8dYJ6wk7N1i+ FmHaru37CqwhWe1/px5141cv04gTq43b0178vfv4e+dbXzn+/voLGr/pEF92OF4Fl22+p6g/KuqPivqj au66w97JvJx9Rl447ynrn/am44YFEix+0XcLusPwHsohtvq6G/W/pK/6XlkLdxiSMpiRn3w/tlQ35TIz Lvd8H06MTwcUmo4YF9pb/sc6sF0ap6/Nuñez/PxQXtzPn [file] Edgardo+0PpY5Qors5mRS5tj++1O9do5AjkVD3UO183nDG/3fsSi+m5P+6X/eME64a5MrU6f9pfXw4scjoB7 rkad8azpq90fDTnfEMIttc81S199fO5O+8ZGTz7Qnd6c6lLlw+Y00tecWYvNzr694A7/c1qxirofJ/7K 8PI7J4Svsrq3v3EYKS5MTgqueRq7f763jgr68U2zgE F7jbNkq5/66sOSly450/jlwbOcXDp/NgNnXh7GmKvUB+i884S6fGVdzP5eqQMmzND8uofwxu49RZd1Bk fKFaamt3i+GV2uVwBEeL8+HxURK5wPxG0XncyoDhpnT3ZM1b5LDbvp9ffTOrvreX0p38uzFopIoMNx2U fqvCVYJFGNPVoIXPUTbQqlkWYA5cqMDS7GjaUZFxhb uP2S0p0WrCoekkjW3ScQ0biyVQdXv7DIwWSi2+bWH4nIx6YuVGoTOuK+jRuspYSBfsAo3WwnfpYCyPDi SECRETARIAL TEACHER+yJz7I/QrrRGrjn7Nl9tydhRnd8vIXywDI2FTxeOm118FmL3xK0b9+1mk+BseB21zpCWf98r54f+t [file] +S0aG3198FhwE6/35HRQY3342cmhgSRpoH7u+KN3e7 MwnBksrhPd98/14f4Pz35//myMQ3u29Fxh/lzpU1An22pzcomlf6++/oueaxC9N48+/larsen/k/e1Y182+O VF43b5nMqv9m/4zt87wdmdM7s/9fbF53//G345rbQhQ/b7c5skE61ztp+/eX/T919+9/bhdx++/OrDL7 /64q/610j0qy2S31/+4V/++Marichuy/ff/Pb//t/7x9/q9/ +OG//9sf/cvf2r44po/+4Ye33//d2z/+zYvV9x//5a9ML7wkC5nxgE0Ed4f/4eW44Le/tG5CepSIumQ/ 9Kdf/Nieb3v7VAz5/KffAR+vVYMHt+vX/xfgcXgecP/a7XnI4ATz0Z99q8/IOVcQltlwrme6qbAv8Nt1 /t5Q3/Sl8AY0d33/+Pj9v3z/l7+i1kst9q9n47d3+P brD7/6r19+++G7L3/0rU+Gnv6/bnAdiw9nbp01hzce32v1P68wqxcxKednOnQw8s0XbbOdka/Df/zd21 /+8B/f/+h308VnI4kGyj1vX//+87xkpHJ01r6c3RmQx7/84T++/8v/+sO//JVm5gH232u/zJ3G4q+8+4 85n8yb9n80s22/+x///MNPb3/jxT7t5nkLK/uHT7/4 h0//xG+9LwU+qX1HvdJMan3NJ6hNu5vf/pWpx4tbdU5YI9/qxr79+pfib9l3a//+/t//t981abr9hx5i D7//+SvJzHv/c3n7P3/5x7/9ya/v7/CbP/rx2b0Lult6J/3sj8WxYo9++c9/+xy99QdMA+53/erP//SZ nIluggIRWY75i+//6V9/+OM/cflfz84glcX3/uS3h3 Ejf/vv//TfHO92r72/+fe/bjr37ie//NQzl5++6o5wmiZM66+++4zzyWuO+v//7ILP0KnBxFkqH/7792 /y9ud/vyiHiWPmuVq6g2457m4qExNc1np/+vTZ2/Wb4X2b7fPTDm8/0iAR82D7MjEsO9Vq2nEdl1/57d kfb399YU81uEf2ip4D5xEZChjdmjDorPAsEM7XLG8b f3AsDaA9TTItr4XgNDjjIYm7wCHfYMcsezJky0NfboodT3Xrm0OjSkTaLYLaOvPuYdj1ZZYdPrX1oDHl FfBbQLAqG5AsBJXmEsP6WvQsWZSPMT2EVAQarwTyIfVvZRE+EsDuWN5geiltCGSnp2WnBThgIOdiQICu C1H4iBbeABBaR1TnwQ40JBJiM1XtzxN4VBP6DTVeQa AvTGFzdCAxOSAwIFI+UwAlIB0srisfMZCbk2UmXPwaQPH3gE2xCOmKZSWYDNtVZBaiLaX1g80baiKAGM JeLXVuNT4OtpGxgCseieHpfKSeCUL9EcOuQSD1NQCaLaE1MIZIWNCbEPWySKFkYNAxQ9YusOyxMQpRFV IZUSoWUXovFwPge3A6HEPtfsPJUMXWHAfKXCKZP94D LCMzQEq6ZKDiBCStQ5WaqvVmfWWcSAMCMWuaNyfyNWZliX8jcEvxG9EhXHS3d0EcJQ8IF3RbBPOlQJHD JCK3x9TbWFOwxgfypdnkHdRwMUGwKSQlQEOjJS9Xqw5lzJLrxfKuGROZZBztGhytRK0zjTuhtygpW1Be aWVzKSA+UmDgQQ6gfm4+YzGnKEZyAjf2PSYhKQkhWP RaCTRcKVSpW6alEPPtTkGfKZOpUtMpDQ2Ex7XrdGTdVg2djnHpBcvWhYIqLpkzIMPmNVYtNOKgXqXYAM DvSHKxKJVhCET6FDIeWKTdAVgsDBNxTOF3XsqeIXXwQMLpDE3lBhYpHRFvLxYmIcomFEYeJSYrcwHYKC UxLIM5UNOmGlDgCGEeHFGoNQztWDUwGIBsCJLuCXT9 RIX2WXWmIpTrWMLtRQKaUMFeRCCcUDUrntIIRKEhGODtXKO5FLLpFUFnXYRfIRejZHMrRGPpFIjiFOBk AYZaYQ1vZwTpMRMzIDYcQIroDGChODJpasIFUKWdIKGoUWFzRJHlNWHqDBDdBTznQJRjFYNtTUXrNRFa DKSsAO8uIyFzDIKrGDJ0YTQjCPNrVPQjofMPAPTtVM FnAFm3PGJcOSSuAANmKQwrGXDlRVDiWBC0EMOlEPTdEB4yBjCqHMEyIHT1AuQhDHHiRJQwesZEOHDsGW MaWVQ4FqScTJPkJXPzKFpbMEWqUEOmEGqcRPZbVKYbTI2uFgZrJTQqXBZeRVwbBQCdGOVxclHMTZMoFH ClDLQtBpGfVPScOFPxTAkpBMEtPENkBUE5ZEAvDZMs PX1nMeTcGGIwYQE9QZheZSMxMBWwktHUECGdKFKdEKxdIAZlMGTnLYOnLQfkBEIfKJAoFEH4LILgJBKj EL8bWwItYDZzIVVsUBOyXtN3PiNnZyVCqQLhvXwdodv3URdpO7e0MSEbTDbpBK0yyzNlKXPvKswnWg2p vVE8TWEgFfzTHy4Am8LqbjP2owJvPmX7YLW8JqUbWP7N ID Date Data Source [id number] 04/25/2020 08:50:41 PM EDT [facility] Name Value Range Interpretation Code Description Data Beronica rce(s) Supporting Document(s) Glucose [Mass/volume] in Capillary blood by Glucometer 131 mg/dL 70- 140 [facility] ID Date Data Source [id number] 04/25/2020 05:56:41 PM EDT [facility] Name Value Range Interpretation Code Description Data Beronica rce(s) Supporting Document(s) Leukocytes [#/volume] in Blood by Automated count 3.9 10*3/uL 4-10 L [facility] Erythrocytes [#/volume] in Blood by Automated count 3.16 10*6/uL 4.6- 6.1 L [facility] Hemoglobin [Mass/volume] in Blood 11.3 g/dL 13.5-18 L [facility] Hematocrit [Volume Fraction] of Blood by Automated count 32.4 % 4 1-53 L [facility] Erythrocyte mean corpuscular volume [Entitic volume] b y Automated count 102.7 fL 80-96 H [facility] Erythrocyte mean corpuscular hemoglobin [Entitic mass] by Automated count 35.9 pg 27-33 H [facility] Erythrocyte mean corpuscular hemoglobin concentration [Mass/volume] by Automated count 34.9 g/dL 32.0-36.0 [facility] width [Ratio] by Automated count 16.1 % 11.5-14.5 H [facility] Platelets [#/volume] in Blood by Automated count 52 10*3/uL 150-400 L [facility] Differential cell count method - Blood [facility] Neutrophils/100 leukocytes in Blood by Automated count 71 % [facility] Lymphocytes/100 leukocytes in Blood by Automated count 22 % [facility] Monocytes/100 leukocytes in Blood by Automated count 7 % [facility] Eosinophils/100 leukocytes in Blood by Automated count 0 % [facility] Basophils/100 leukocytes in Blood by Automated count 0 % [facility] Neutrophils [#/volume] in Blood by Automated count 2.72 10*3/uL 1.8-7 .0 [facility] Lymphocytes [#/volume] in Blood by Automated count 0.86 10*3/uL 1.2-4 .0 L [facility] Monocytes [#/volume] in Blood by Automated count 0.28 10*3/uL 0-0.8 [facility] Eosinophils [#/volume] in Blood by Automated count 0.01 10*3/uL 0-0.5 [facility] Basophils [#/volume] in Blood by Automated count 0.02 10*3/uL 0-0.2 [facility] Nucleated erythrocytes/100 leukocytes [Ratio] in Blood by Automated count 0 /100{WBCs} 0-0 [facility] ID Date Data Source [id number] 04/25/2020 06:07:27 PM EDT [facility] Name Value Range Interpretation Code Description Data Beronica rce(s) Supporting Document(s) Albumin [Mass/volume] in Serum or Plasma by Bromocresol green (BCG) dye binding method 2.6 g/dL 3.5-5.2 [facility] Bilirubin.total [Mass/volume] in Serum or Plasma 13.5 mg/dL <1.2 H [facility] Bilirubin.direct [Mass/volume] in Serum or Plasma 9.4 mg/dL <0.3 H [facility] Alkaline phosphatase [Enzymatic activity/volume] in Serum or Plasma 200 U/L 40-129 H [facility] Aspartate aminotransferase [Enzymatic activity/volume] in Serum or Plasma 375 U/L <40 H [facility] Alanine aminotransferase [Enzymatic activity/volume] in Seru m or Plasma 76 U/L <41 H [facility] Protein [Mass/volume] in Serum or Plasma 7.5 g/dL 6.4-8.3 [facility] ID Date Data Source [id number] 04/25/2020 06:07:27 PM T [facility] Name Value Range Interpretation Code Description Data Beronica rce(s) Supporting Document(s) Bicarbonate [Moles/volume] in Serum 23 mmol/L 22-29 [facility] Chloride [Moles/volume] in Serum or Plasma 89 mmol/L 98-107 L [facility] Creatinine [Mass/volume] in Serum or Plasma 0.41 mg/dL 0.70-1.20 L [facility] Icteric Glucose [Mass/volume] in Serum or Plasma 112 mg/dL 70-140 [facility] Potassium [Moles/volume] in Serum or Plasma 4.0 mmol/L 3.4-5.1 [facility] Sodium [Moles/volume] in Serum or Plasma 126 mmol/L 136-145 L [facility] Urea nitrogen [Mass/volume] in Serum or Plasma 2 mg/dL 6-20 L [facility] Anion gap 3 in Serum or Plasma 14 mmol/L 8-15 [facility] Osmolality of Serum or Plasma by calculation 259 mosm/kg 275-300 L [facility] Creatinine/Urea nitrogen [Mass Ratio] in Serum or Plasma 5 [facility] Calcium [Mass/volume] in Serum or Plasma 7.7 mg/dL 8.6-10.0 L [facility] Glomerular filtration rate/1.73 sq M pre dicted among non-blacks [Volume Rate/Area] in Serum or Plasma by Creatinine-based formula (MDRD) >6 0 [facility] Glomerular filtration rate/1.73 sq M pre dicted among blacks [Volume Rate/Area] in Serum or Plasma by Creatinine-based formula (MDRD) >60 [facility] ID Date Data Source [id number] 04/25/2020 06:07:[address] [facility] Name Value Range Interpretation Code Description Data Beronica rce(s) Supporting Document(s) Magnesium [Mass/volume] in Serum or Plasma 1.5 mg/dL 1.6-2.6 L [facility] ID Date Data Source [id number] 04/25/2020 06:00:25 PM [facility] Value Range Interpretation Code Description Data Beronica rce(s) Supporting Document(s) Lactate [Moles/volume] in Serum or Plasma 2.4 mmol/l 0.5-2.2 H [facility] ID Date Data Source [id number] 04/25/2020 05:17:39 PM [facility] Value Range Interpretation Code Description Data Beronica rce(s) Supporting Document(s) Glucose [Mass/volume] in Capillary blood by Glucometer 92 mg/dL 70- 140 [facility] ID Date Data Source [id number] 04/25/2020 12:14:37 PM [facility] Value Range Interpretation Code Description Data Beronica rce(s) Supporting Document(s) Glucose [Mass/volume] in Capillary blood by Glucometer 89 mg/dL 70- 140 [facility] ID Date Data Source [id number] 04/30/2020 12:14:[address] [facility] Service Cmnt XXX-Imp : Specimen source n ot given.Microorganism XXX Cult : No growth 5 days Name Value Range Interpretation Code Description Data Beronica rce(s) Supporting Document(s) ID Date Data Source [id number] 04/25/2020 10:49:36 AM [facility] Value Range Interpretation Code Description Data Beronica rce(s) Supporting Document(s) Gamma glutamyl transferase [Enzymatic activity/volume] in Serum or Plasma 457 U/L 8-61 H [facility] ID Date Data Source [id number] 04/25/2020 08:24:33 AM EDT [facility] Name Value Range Interpretation Code Description Data [facility](s) Supporting Document(s) Glucose [Mass/volume] in Capillary blood by Glucometer 76 mg/dL 70- 140 [facility] ID Date Data Source [id number] 04/25/2020 07:25:[address] [facility] CT ABDOMEN PELVIS WITH CONTRAST [id number] AL RESULTInterpreted by:DANDRE RadfordROCEDURE INFORMATION: Exam: CT [...] clinical indication); or iterative reconstruction. Contrast material: [id number]; Contrast volume: 100 ml; Contrast route: INTRAVENOUS [...] Name Value Range Interpretation Code Description Data [facility] rce(s) Supporting Document(s) ID Date Data Source [id number] 04/25/2020 07:22:27 AM EDT [facility] Name Value Range Interpretation Code Description Data Beronica rce(s) Supporting Document(s) History and Physical [facility] ABKAXa7zVlPNTqNs54/UBCwuQRPck1UnDGqoXBk8YXvhIGOmH0CyTDW0hC9mGUT2AXrSGnCwWmNbKKN4 lbm MyClnFRfYzSFGqWehKTzViSAiiYcsmnPMrOK0EgLB9YHQyA85vXLKaKYZhR8JbHXM7ZTg+Fz7QXNFknE NlJQ9FBwsO7S5Vr1kQOZ1ZYj4HDCMsosuaTEH22RNIyyeJAIfAABm9NrwRsROPeenWK//6gAAhqFvwZz GiiHaI5Vv2U9B4m0bp4Qduos/vT7UV+o7jqOV/t/8M C3HBEmuta2Awg792bd37O0tRsPRrvBbqC5T/uvr+B89OVO+Dh7OP4Jm4+qQMZZHgrvSCdL8Zy348Lew/ IV1QA0Eef8PaMGpYtPHKApt5wi7YxwThKfLaEl3ESL/SHFWn99lW756ZYsQG7qORZXi4/SNCwX4+TgEe 9JMY1FFL0NvrBTVwEElSx8E+BQMKagq+f5zBz0/Uu9 JzbS1F42zedGj/XSWVxeTW4XcNoz2CBPzLbrqwEbHt15wik9CZq5PypAr3T2xeNyhcfR2BoP4P4H0z2x zu+PlYjyZzZopMsox9jkHEmqqIjbP+1ZZSPWJQl6jOnIhiPefCRdf640fs2sqdvbf70LnzqfM2j6p3d/ 8OZgBxUMENKJUzi1uDd7WIUVUDy2J/RCIb5Uh8JMGN [file] ICAgICAgICAgICAgICAgICAgICAgICAgICAgICAgIC AgICAgICAgICAgICAgICAgICAgICAgICAgICAgICAgICAgICAgICAgICAgICANCiAgICAgICAgICAgIC AgICAgICAgICAgICAgICAgICAgICAgICAgICAgICAgICAgICAgICAgICAgICAgICAgICAgICAgICAgIC AgICAgICAgICAgICAgICAgICAgICAgICAgICANCiAg ICAgICAgICAgICAgICAgICAgICAgICAgICAgICAgICAgICAgICAgICAgICAgICAgICAgICAgICAgICAg ICAgICAgICAgICAgICAgICAgICAgICAgICAgICAgICAgICAgICANCiAgICAgICAgICAgICAgICAgICAg ICAgICAgICAgICAgICAgICAgICAgICAgICAgICAgIC AgICAgICAgICAgICAgICAgICAgICAgICAgICAgICAgICAgICAgICAgICAgICAgICANCiAgICAgICAgIC AgICAgICAgICAgICAgICAgICAgICAgICAgICAgICAgICAgICAgICAgICAgICAgICAgICAgICAgICAgIC AgICAgICAgICAgICAgICAgICAgICAgICAgICAgICAN CiAgICAgICAgICAgICAgICAgICAgICAgICAgICAgICAgICAgICAgICAgICAgICAgICAgICAgICAgICAg ICAgICAgICAgICAgICAgICAgICAgICAgICAgICAgICAgICAgICAgICANCiAgICAgICAgICAgICAgICAg ICAgICAgICAgICAgICAgICAgICAgICAgICAgICAgIC AgICAgICAgICAgICAgICAgICAgICAgICAgICAgICAgICAgICAgICAgICAgICAgICAgICANCiAgICAgIC AgICAgICAgICAgICAgICAgICAgICAgICAgICAgICAgICAgICAgICAgICAgICAgICAgICAgICAgICAgIC AgICAgICAgICAgICAgICAgICAgICAgICAgICAgICAg ICANCiAgICAgICAgICAgICAgICAgICAgICAgICAgICAgICAgICAgICAgICAgICAgICAgICAgICAgICAg ICAgICAgICAgICAgICAgICAgICAgICAgICAgICAgICAgICAgICAgICAgICANCiAgICAgICAgICAgICAg ICAgICAgICAgICAgICAgICAgICAgICAgICAgICAgIC AgICAgICAgICAgICAgICAgICAgICAgICAgICAgICAgICAgICAgICAgICAgICAgICAgICAgICANCjw/eH FbG7inmIVhxsI7L3mbPh5PFc9RDF8ao9CkVNEhUDpojfEeLqiUHrDlOUKwTanUCku7SCzaTL5DkAIgN6 FkH4QsNPstLE0HBTTlQRJtdWGuHIEmOFCsExR5XJWi TWamZG4LpZZkPZdcXNNxPAVwLyOrPKMoNIKbCCUmVTMjTDZMUWSzNKXzQqXcDOUwXGPmUA4ZLRViZ204 kmTfLy5FOr5RYyZwPN9yvc4OCpMcVGDfLvoYJwb6AJnfLH1RiCTesLHfVsZaFEBCHsVuN3mry5MfUqDs ARKTUSfbYF9Lr0NdtHWlLEt+Dw2GUT4wp7CcREsmEr UbQY2nad2RIImQHrUqA0WrfYpdFKeyCOAueGVKdOJkPNotWAvbvTCknDCdVT2AQTU2AJwoND1rTTHqMY MwMsC1VMUSDK2AFDLzPHSikGNjVBSfEWWLSE9TEEnyVPF6NONzvjHubWQmVEexNL0GLONhjxDaSbWbWG BSDQo+Sy5QHS9mk4FyJOlnXGHkYJ2hpi8GCQoMHoEw I9N7bVDkV5J5OVgdIq2FIANbXPKfKwLjYIERDPtjAQ1YXO7bqpU2YM8EyIBtXPKvAIQfiMQySSy6G70z dCErFFfcKG6PUIQ+Claudia+Cd6XOPZqLQWzRNTjDeRbKXXVMbYjA7UhY0JHa6QjV3XaRM83wHhzbfFkCKud RE0CSG5sITCeURDHAY8NiKKlvM2tchBqYuSsUNTEGa XxZ28ldXLdQPNuYSIxXDGxKk9RRHYmH0ViruTyrLzmmvMpJFEvSLEHDV2HUFmxrzLczUNouFcvLV60cV qcEQ3GLp8CDhOvST5nfk6SmBUnAv5MZRWyNV1USNTaGIEfLTMpDVG0DRQmZfHdTTcfDGHaPHFrRDO5YC UkYWCtJO3QZdBvGMCiBkV1LOYjHSIcDEPgdh2KKQMo CLSpKrHoYoKsPPZnZGHlGZpwRMRcMWMeZII1QEZnQXRkYH8WNzSdURYqNJQwWugvENKfHKBmin7DOZEz TXFfYJXwZZPbUYBxIMUdTHqfJPRsOTU8Cxv6XVStDKDfKR5NCzHcQEIwACu3LMIsUUWbWXYciw5CBJLs MDAxMDYxNyAwMDAwMCBuDQowMDAwMDEwODIxIDAwMD AfOA9CExVhCNQfTFCwLDqfOVOaNGDlij4GGCWiGEWhQIK7FSFeTHDiMQIxQPzmZCAkBNP7RRBhEYLlQP MoEC5ZBaAxJUTrPOviFiyjZCWzLZLyie2ZLNKvUGSwCKq6GiQcXJWyBHNnBKxdBBItSYM5JKJuYQUzDZ SuLC4TEtCfLWStGcNsKuGeBRJuJPGpyp7ZZTJpMZGg HDNuNNMrOLReSSPqYAyoATYpSPEfQIGyEGNwITMrFC5FMcKkRDPiNqP1JuVxVGUmNKWnxi8TJCHfAFOs IDR9OFApMXNoVFLdRNakTMAqMDDnMQTqPWTmABIzWN4KSwWfEXYdNvDvGhaoAQGjVYIhoq1HWVOvNYZl HuU5VWQgDLXqRRHeTNcqYLAiYHFlQrI0VYKxHVVvPM 7PRaXxVODwXgEjTQAvJMRrYNNyve1MKFQdSDEzYOL2ZHIkSMTmHTPcMAttDCSaLII3STxpEGDvRJBdYZ 1XMiXrFNEzGeOcEEXwABBuIKZczd5LOTRmPLCzMOY7PQOcLCRiSAIvODpxVUBpZDU6NNx1OQAuGKNwSD 1VBzRjUYWxQkovBJakPUUhGRJexb1ZPOLdYVWuEhVs LUKmLFPdXMLzPEnlVNBmLMS3YEO0QFOnVMRoLH8RSrQnMAtfWQCGXlz5OUjxY3c8ADMkUH3IQ7Tat7Oo FiEoVOFCPQruSP4skzDyLLFhYf5HZ8iTRqdtBMZuFudmJqgtS8E9YyPqYHKzLmX9EdU0LgJpNQgtKc1k MMHgGIJeATXxKCU0UqfnZPM3WJWxNdzxIJwqEZWmZg ZzPbRuZD5QWv5AJpZ5XJD2eAQpNc6NJrv8BIAVRiYaRV4EGBd= ID Date Data Source [id number] 04/25/2020 06:39:34 AM EDT [facility] XR CHEST FRONTAL ONLY [id number] RESULTI nterpreted by:Tahmina Girard [facility]: Exam: XR Chest, 1 View Exam [...] rce(s) Supporting Document(s) ID Date Data Source [id number] 04/25/2020 09:32:15 AM EDT [facility] Name Value Range Interpretation Code Description Data Beronica rce(s) Supporting Document(s) Hepatitis A virus IgM Ab [Presence] in Serum or Plasma by Im munoassay Non Reactive [facility] No acute infection, susceptible to infec tion. Hepatitis B virus core IgM Ab [Presence] in Serum or Plasma by Immunoassay Non Reactive [facility] IgM antibodies to HBc were not detected, does not exclude the possibility of exposure to HBV. Hepatitis C virus Ab [Presence] in Serum or Plasma by Immuno assay Non Reactive [facility] No serological evidence of active infect ion. If recent exposure is suspected, test for HCV RNA. Hepatitis B virus surface Ag [Presence] in Serum or Plasma b y Immunoassay Non Reactive [facility] No active or previous infection. Suscept ible to infection. ID Date Data Source [id number] 04/25/2020 07:04:[address] [facility] Name Value Range Interpretation Code Description Data Beronica rce(s) Supporting Document(s) Fibrin D-dimer FEU [Mass/volume] in Platelet poor plas ma by Immunoassay 12.78 ug/mL{FEU} <0.50 H [facility] Confirmed ID Date Data Source [id number] 04/25/2020 07:04:32 AM [facility] Value Range Interpretation Code Description Data Beronica rce(s) Supporting Document(s) Fibrinogen [Mass/volume] in Platelet poor plasma by Coagulat ion assay 245 mg/dl 190-450 [facility] ID Date Data Source [id number] 04/25/2020 07:04:32 AM [facility] Value Range Interpretation Code Description Data Beronica rce(s) Supporting Document(s) aPTT in Platelet poor plasma by Coagulation assay 62.5 s 24.0-33. 0 H [facility] ID Date Data Source [id number] 04/30/2020 12:14:[address] [facility] Service Cmnt XXX-Imp : RT ACMicroorganis m XXX Cult : No growth 5 days Name Value Range Interpretation Code Description Data Beronica rce(s) Supporting Document(s) ID Date Data Source [id number] 04/30/2020 12:14:10 PM [facility] Cmnt XXX-Imp : LT HANDMicroorgan ism XXX Cult : No growth 5 days Name Value Range Interpretation Code Description Data Beronica rce(s) Supporting Document(s) ID Date Data Source [id number] 04/25/2020 04:45:07 AM [facility] Value Range Interpretation Code Description Data Beronica rce(s) Supporting Document(s) Prothrombin time (PT) 22.1 s 12.5-14.9 H [facility] INR in Platelet poor plasma by Coagulation assay 1.90 [facility] Routine intensity oral anticoagulation I NR is typically 2.0-3.0. Target INR must be clinically individualized. ID Date Data Source [id number] 04/25/2020 04:52:33 AM [facility] Value Range Interpretation Code Description Data Beronica rce(s) Supporting Document(s) Lipase [Enzymatic activity/volume] in Serum or Plasma 83 U/L 13-6 0 H [facility] ID Date Data Source [id number] 04/25/2020 04:52:33 AM EDT [facility] Name Value Range Interpretation Code Description Data Beronica rce(s) Supporting Document(s) Albumin [Mass/volume] in Serum or Plasma by Bromocresol green (BCG) dye binding method 2.9 g/dL 3.5-5.2 [facility] Bilirubin.total [Mass/volume] in Serum or Plasma 13.5 mg/dL <1.2 H [facility] Calcium [Mass/volume] in Serum or Plasma 7.9 mg/dL 8.6-10.0 L [facility] Chloride [Moles/volume] in Serum or Plasma 93 mmol/L 98-107 L [facility] Creatinine [Mass/volume] in Serum or Plasma 0.34 mg/dL 0.70-1.20 L [facility] Icteric Glucose [Mass/volume] in Serum or Plasma 85 mg/dL 70-140 [facility] Alkaline phosphatase [Enzymatic activity/volume] in Serum or Plasma 215 U/L 40-129 H [facility] Potassium [Moles/volume] in Serum or Plasma 3.3 mmol/L 3.4-5.1 L [facility] Hemolyzed Protein [Mass/volume] in Serum or Plasma 8.2 g/dL 6.4-8.3 [facility] Sodium [Moles/volume] in Serum or Plasma 133 mmol/L 136-145 L [facility] Aspartate aminotransferase [Enzymatic activity/volume] in Serum or Plasma 436 U/L <40 H [facility] Hemolyzed Urea nitrogen [Mass/volume] in Serum or Plasma 2 mg/dL 6-20 L [facility] Osmolality of Serum or Plasma by calculation 272 mosm/kg 275-300 L [facility] Creatinine/Urea nitrogen [Mass Ratio] in Serum or Plasma 7 [facility] Bicarbonate [Moles/volume] in Serum 26 mmol/L 22-29 [facility] Alanine aminotransferase [Enzymatic activity/volume] in Seru m or Plasma 85 U/L <41 H [facility] Anion gap 3 in Serum or Plasma 14 mmol/L 8-15 [facility] Glomerular filtration rate/1.73 sq M pre dicted among non-blacks [Volume Rate/Area] in Serum or Plasma by Creatinine-based formula (MDRD) >6 0 [facility] Glomerular filtration rate/1.73 sq M pre dicted among blacks [Volume Rate/Area] in Serum or Plasma by Creatinine-based formula (MDRD) >60 [facility] ID Date Data Source [id number] 04/25/2020 04:52:[address] [facility] Name Value Range Interpretation Code Description Data Beronica rce(s) Supporting Document(s) Phosphate [Mass/volume] in Serum or Plasma 2.6 mg/dL 2.5-4.5 [facility] ID Date Data Source [id number] 04/25/2020 04:52:[address] [facility] Name Value Range Interpretation Code Description Data Beronica rce(s) Supporting Document(s) Troponin T.cardiac [Mass/volume] in Serum or Plasma <0.01 [facility] ID Date Data Source [id number] 04/25/2020 06:28:05 AM [facility] Value Range Interpretation Code Description Data Beronica rce(s) Supporting Document(s) Leukocytes [#/volume] in Blood by Automated count 3.9 10*3/uL 4-10 L [facility] Erythrocytes [#/volume] in Blood by Automated count 3.21 10*6/uL 4.6- 6.1 L [facility] Hemoglobin [Mass/volume] in Blood 11.9 g/dL 13.5-18 L [facility] Hematocrit [Volume Fraction] of Blood by Automated count 32.8 % 4 1-53 L [facility] Erythrocyte mean corpuscular volume [Entitic volume] b y Automated count 102.1 fL 80-96 H [facility] Erythrocyte mean corpuscular hemoglobin [Entitic mass] by Automated count 37.0 pg 27-33 H [facility] Erythrocyte mean corpuscular hemoglobin concentration [Mass/volume] by Automated count 36.2 g/dL 32.0-36.0 [facility] E[facility]th[facility] distribution width [Ratio] by Automated count 16.0 % 11.5-14.5 H [facility] Platelets [#/volume] in Blood by Automated count 63 10*3/uL 150-400 L [facility] Differential cell count method - Blood [facility] Neutrophils/100 leukocytes in Blood by Automated count 66 % [facility] Lymphocytes/100 leukocytes in Blood by Automated count 23 % [facility] Monocytes/100 leukocytes in Blood by Automated count 5 % [facility] Eosinophils/100 leukocytes in Blood by Automated count 1 % [facility] Basophils/100 leukocytes in Blood by Automated count 2 % [facility] Neutrophils [#/volume] in Blood by Automated count 2.57 10*3/uL 1.8-7 .0 [facility] Lymphocytes [#/volume] in Blood by Automated count 0.90 10*3/uL 1.2-4 .0 L [facility] Monocytes [#/volume] in Blood by Automated count 0.20 10*3/uL 0-0.8 [facility] Eosinophils [#/volume] in Blood by Automated count 0.04 10*3/uL 0-0.5 [facility] Basophils [#/volume] in Blood by Automated count 0.08 10*3/uL 0-0.2 [facility] Band form neutrophils/100 leukocytes in Blood by Manual count 3 % [facility] Band form neutrophils [#/volume] in Blood by Manual count 0.12 10*3 /uL 0-0.6 [facility] Macrocytes [Presence] in Blood by Light microscopy [facility] Target cells [Presence] in Blood by Light microscopy [facility] ID Date Data Source [id number] 04/25/2020 06:37:45 AM [facility] Value Range Interpretation Code Description Data Beronica rce(s) Supporting Document(s) Ferritin [Mass/volume] in Serum or Plasma 2328 ng/ml 30-400 H [facility] Confirmed ID Date Data Source [id number] 04/25/2020 06:37:45 AM [facility] Value Range Interpretation Code Description Data Beronica rce(s) Supporting Document(s) Magnesium [Mass/volume] in Serum or Plasma 1.1 mg/dL 1.6-2.6 L [facility] ID Date Data Source [id number] 04/25/2020 09:32:25 AM [facility] Value Range Interpretation Code Description Data Beronica rce(s) Supporting Document(s) Cobalamin (Vitamin B12) [Mass/volume] in Serum or Plasma 2 11-946 H [facility] ID Date Data Source [id number] [facility] Description Data Beronica rce(s) Supporting Document(s) Iron [Mass/volume] in Serum or Plasma 114 ug/dl 59-158 [facility] Transferrin [Mass/volume] in Serum or Plasma 89 mg/dL 200-360 L [facility] Iron binding capacity [Mass/volume] in Serum or Plasma 124 ug/dl 228 -428 L [facility] Iron saturation [Mass Fraction] in Serum or Plasma 96.0 % 20-55 H [facility] ID Date Data Source [id number] 04/25/2020 09:12:34 AM EDT [facility] Name Value Range Interpretation Code Description Data Beronica rce(s) Supporting Document(s) Folate [Mass/volume] in Serum or Plasma 5.94 ng/mL >4.77 [facility] ID Date Data Source [id number] 04/25/2020 05:43:02 AM [facility] Value Range Interpretation Code Description Data Beronica rce(s) Supporting Document(s) Color of Urine [facility] Clarity of Urine [facility] Specific gravity of Urine by Refractometry automated 1.010 1.003 -1.030 [facility] pH of Urine by Automated test strip 6.0 5.0-8.0 [facility] Protein [Mass/volume] in Urine by Automated test strip Neg [facility] Glucose [Mass/volume] in Urine by Automated test strip Neg [facility] Ketones [Mass/volume] in Urine by Automated test strip 5 mg/dL Neg [facility] Bilirubin.total [Presence] in Urine by Automated test strip Negative [facility] False-positive results may occur with ce rtain food additives or medications. Hemoglobin [Presence] in Urine by Automated test strip Neg ative [facility] Leukocyte esterase [Presence] in Urine by Automated test strip Negative [facility] Nitrite [Presence] in Urine by Automated test strip Negati [facility] Leukocytes [#/area] in Urine sediment by Automated count 0 -5 [facility] Erythrocytes [#/area] in Urine sediment by Automated count 1 /HPF 0-3 [facility] Service comment [facility] Hyaline casts [#/area] in Urine sediment by Microscopy low p ower field 1 /LPF None [facility] ID Date Data Source [id number] 04/25/2020 04:45:32 AM EDT [facility] Name Value Range Interpretation Code Description Data Beronica rce(s) Supporting Document(s) Lactate [Moles/volume] in Serum or Plasma 4.2 mmol/l 0.5-2.2 [facility] Results called to and read back by jewell cole [id number] RN @ [id number] 04.25.20 [id number] ID Date Data Source [id number] 04/25/2020 05:50:35 AM [facility] Cmnt XXX-Imp : NoneMicroorganism XXX Cult : 2019 nCoV Real-Time RT-PCR: NOT DETECTEDTest performed using [employer] Respiratory Panel. This test is only for use under Food and Drug Administration's Emergency Use Authorization.Additional information is available on the following FDA websites for health care providers and patients. https://www.fda.gov/media/777206/download , https://www.fda.gov/me tin/011225/downloadPolymerase chain reaction is NEGATIVE for Influenza A H1, H3 and 2009 H1 viruses, Influenza B virus, Respiratory syncytial virus, Human metapneumovirus, Parainfluenza virus 1,2,3 and 4, Adenovirus, Rhinovirus/ Enterovirus, Coronavirus HKU1, NL63, OC43 and 229E, Bordetella pertussis, B. parapertussis, Mycoplasma pneumoniae and Chlamydia pneumoniae. Name Value Range Interpretation Code Description Data Beronica rce(s) Supporting Document(s) ID Date Data Source [id number] 04/25/2020 03:59:00 AM [facility] XXX-Imp : NoneMicroorganism XXX Cult : 2019 nCoV Real-Time RT-PCR: NOT DETECTEDTest performed using [employer] Respiratory Panel. This test is only for use under Food and Drug Administration's Emergency Use Authorization.Additional information is available on the following FDA websites for health care providers and patients. https://www.fda.gov/media/089681/download , https://www.fda.gov/me tin/784760/downloadPolymerase chain reaction is NEGATIVE for Influenza A H1, H3 and 2009 H1 viruses, Influenza B virus, Respiratory syncytial virus, Human metapneumovirus, Parainfluenza virus 1,2,3 and 4, Adenovirus, Rhinovirus/ Enterovirus, Coronavirus HKU1, NL63, OC43 and 229E, Bordetella pertussis, B. parapertussis, Mycoplasma pneumoniae and Chlamydia pneumoniae. Name Value Range Interpretation Code Description Data Beronica rce(s) Supporting Document(s) Microorganism identified in Unspecified specimen by [facility] This lab was ordered by [facility] and reported by [facility]. ID Date Data Source [id number] 11/04/2019 12:00:00 AM EDT eCW1 ([facility]) Name Value Range Interpretation Code Description Data Beronica rce(s) Supporting Document(s) Microalbumin/Creatinine [Mass Ratio] in Urine 74.6 CREATININE, URINE eCW1 ([facility]) Albumin/Creatinine [Mass Ratio] in Urine 53.3 MALB URINE SIEMENS eCW1 ([facility]) Microalbumin/Creatinine [Ratio] in Urine 71.4 0.0-30.0 MEJIA/CREAT RATIO eCW1 ([facility]) ID Date Data Source [id number] 11/04/2019 12:00:00 AM EDT eCW1 ([facility]) Name Value Range Interpretation Code Description Data Beronica rce(s) Supporting Document(s) Hemoglobin A1c/Hemoglobin.total in Blood 6.4 HEMOGLOBIN A1c eCW1 ([facility]) Procedure Social History Code Duration Value Status Description Data Source(s ) Smoking 08/10/2020 12:00:00 AM EST Former Smoker completed Former Smoker eCW1 ([facility]) Smoking 08/10/2020 12:00:00 AM EST Former Smoker completed Former Smoker eCW1 ([facility]) Smoking 08/10/2020 12:00:00 AM EST Former Smoker completed Former Smoker eCW1 ([facility]) Smoking 07/27/2020 12:00:00 AM EST Former Smoker completed Former Smoker eCW1 ([facility]) Alcohol intake 07/08/2020 12:00:00 AM EST Current drinker of al cohol (finding) completed Current drinker of alcohol (finding) [facility] Tobacco use and exposure 07/08/2020 12:00:00 AM EST Never used co mpleted Never used [facility] Cigarette pack-years 07/08/2020 12:00:00 AM EST UNK completed [facility] Cigarettes smoked current (pack per day) - Reported 07/08/20 12:00:00 AM EST UNK completed [facility] Smoking 07/08/2020 12:00:00 AM EST Light tobacco smoker comple rosa Light tobacco smoker [facility] Smoking 06/08/2020 12:00:00 AM EDT Former Smoker completed Former Smoker eCW1 ([facility]) Smoking 06/08/2020 12:00:00 AM EDT Former Smoker completed Former Smoker eCW1 ([facility]) Smoking 06/08/2020 12:00:00 AM EDT Former Smoker completed Former Smoker eCW1 ([facility]) Smoking 04/30/2020 12:00:00 PM EDT Ex-smoker (finding) completed Former Smoker NETSMART ([facility]) Alcohol intake 04/26/2020 12:00:00 AM EDT Current drinker of al cohol (finding) completed Current drinker of alcohol (finding) [facility] Smoking 02/07/2020 12:00:00 AM EDT Former Smoker completed Former Smoker eCW1 ([facility]) Smoking 02/07/2020 12:00:00 AM EDT Former Smoker completed Former Smoker eCW1 ([facility]) Smoking 02/07/2020 12:00:00 AM EDT Former Smoker completed Former Smoker eCW1 ([facility]) Smoking 02/07/2020 12:00:00 AM EDT Former Smoker completed Former Smoker eCW1 ([facility]) Vital Signs ID Date Data Source UNK Name Value Range Interpretation Code Description Data Source(s) Body surface area Derived from formula 2.09 m2 2.09 m2 [facility] ([facility], ) Body weight 82.272 kg 82.272 kg [facility] ([facility], ) [place] body weight 190 [lb_av] 190 [lb_av] [facility] Body mass index (BMI) [Ratio] 23.3 kg/m2 23.3 k g/m2 [facility] ([facility], ) Body weight 181.38 [lb_av] 181.38 [lb_av] MEDEN T ([facility]) Body height 74 [in_i] 74 [in_i] MEDENT ([facility]) 6'2" Diastolic blood pressure 74 mm[Hg] 74 mm[Hg] [facility] ([facility]) Systolic blood pressure 109 mm[Hg] 109 mm[Hg] M [facility] ([facility]) Body surface area Derived from formula 2.15 m2 2.15 m2 [facility] ([facility]) Body weight 88.622 kg 88.622 kg [facility] ([facility]) [place] body weight 190 [lb_av] 190 [lb_av] MEDEN T ([facility]) Body mass index (BMI) [Ratio] 25.1 kg/m2 25.1 k g/m2 [facility] ([facility]) Body weight 195.38 [lb_av] 195.38 [lb_av] MED[facility] T ([facility]) Body height 74 [in_i] 74 [in_i] [facility] ([facility]) 6'2" Diastolic blood pressure 69 mm[Hg] 69 mm[Hg] [facility] ([facility]) Systolic blood pressure 102 mm[Hg] 102 mm[Hg] [facility] ([facility]) Body surface area Derived from formula 2.16 m2 2.16 m2 [facility] ([facility]) Body weight 89.870 kg 89.870 kg [facility] ([facility]) [place] body weight 190 [lb_av] 190 [lb_av] MED[facility] T ([facility]) Body mass index (BMI) [Ratio] 25.4 kg/m2 25.4 k g/m2 [facility] ([facility]) Body weight 198.12 [lb_av] 198.12 [lb_av] MEDEN T ([facility]) Body height 74 [in_i] 74 [in_i] [facility] 6'2" Heart rate 98 /min 98 /min [facility] ([facility]) Diastolic blood pressure 65 mm[Hg] 65 mm[Hg] [facility] Systolic blood pressure 96 mm[Hg] 96 mm[Hg] [facility] Diastolic blood pressure 84 mm[Hg] 84 mm[Hg] eCW1 ([facility]) Systolic blood pressure 118 mm[Hg] 118 mm[Hg] e CW1 ([facility]) Body temperature 97.7 [degF] 97.7 [degF] eCW1 ( [facility]) Respiratory rate 19 /min 19 /min eCW1 ([facility]) Heart rate 101 /min 101 /min eCW1 ([facility]) Body mass index (BMI) [Ratio] 25.50 kg/m2 25.50 kg/m2 [facility] ([facility]) Body height 75 [in_i] 75 [in_i] eCW1 ([facility]) Body weight 204 [lb_av] 204 [lb_av] eCW1 ([facility]) [place] body weight 190 [lb_av] 190 [lb_av] MEDEN T ([facility], ) Body mass index (BMI) [Ratio] 26.7 kg/m2 26.7 k g/m2 [facility] ([facility], ) Body weight 208.00 [lb_av] 208.00 [lb_av] MEDEN T ([facility], ) Body height 74 [in_i] 74 [in_i] [facility] ([facility], ) 6'2" Diastolic blood pressure 68 mm[Hg] 68 mm[Hg] [facility] ([facility]) Systolic blood pressure 100 mm[Hg] 100 mm[Hg] [facility] Body weight 94.349 kg 94.349 kg [facility] ([facility]) Diastolic blood pressure 70 mm[Hg] 70 mm[Hg] eCW1 ([facility]) Systolic blood pressure 124 mm[Hg] 124 mm[Hg] e CW1 ([facility]) Body temperature 97.8 [degF] 97.8 [degF] eCW1 ( [facility]) Respiratory rate 18 /min 18 /min eCW1 ([facility]) Heart rate 80 /min 80 /min eCW1 ([facility]) Body mass index (BMI) [Ratio] 28.87 kg/m2 28.87 kg/m2 eCW1 ([facility]) Body height 75 [in_i] 75 [in_i] eCW1 ([facility]) Body weight 231 [lb_av] 231 [lb_av] eCW1 ([facility]) Diastolic blood pressure 86 mm[Hg] 86 mm[Hg] eCW1 ([facility]) Systolic blood pressure 122 mm[Hg] 122 mm[Hg] e CW1 ([facility]) Body temperature 99.0 [degF] 99.0 [degF] eCW1 ( [facility]) Respiratory rate 18 /min 18 /min eCW1 ([facility]) Heart rate 95 /min 95 /min eCW1 ([facility]) Body mass index (BMI) [Ratio] 29.00 kg/m2 29.00 kg/m2 W1 ([facility]) Body height 75 [in_us] 75 [in_us] eCW1 ([facility]) Body weight Measured 232.06 [lb_av] 232.06 [lb_ av] eCW1 ([facility]) Body mass index (BMI) [Ratio] 30.49 kg/m2 30.49 kg/m2 eCW1 ([facility]) Body height 75 [in_us] 75 [in_us] eCW1 ([facility]) Body weight Measured 244 [lb_av] 244 [lb_av] eC W1 ([facility]) Diastolic blood pressure 90 mm[Hg] 90 mm[Hg] eCW1 ([facility]) Systolic blood pressure 124 mm[Hg] 124 mm[Hg] e CW1 ([facility]) Body temperature 97.8 [degF] 97.8 [degF] eCW1 ( [facility]) Respiratory rate 20 /min 20 /min eCW1 ([facility]) Heart rate 96 /min 96 /min eCW1 ([facility]) Body mass index (BMI) [Ratio] 30.49 kg/m2 30.49 kg/m2 eCW1 ([facility]) Body height 75 [in_us] 75 [in_us] eCW1 ([facility]) Body weight Measured 244 [lb_av] 244 [lb_av] eC W1 ([facility]) ID Date Data Source [id number] 05/19/2020 09:54:53 AM EDT [facility] Name Value Range Interpretation Code Description Data Source(s) WEIGHT RECORDED 218 lb 218 lb [facility] WEIGHT RECORDED 177.6 lb 177.6 lb [facility] WEIGHT RECORDED 212.8 lb 212.8 lb [facility] Body height Measured [address] [facility] TRANSFER FROM [facility] Patient Treatment Plan of Care Planned Activity Planned Date Details Description Data Source (s) Abdominal Binder/Elastic Large - 08/27/2020 12:00:00 AM EST eCW1 ([facility]) Abdominal Binder/Elastic Large - 08/27/2020 12:00:00 AM EST eCW1 ([facility]) Abdominal Binder/Elastic Large - 08/27/2020 12:00:00 AM EST eCW1 ([facility]) Amitriptyline Hydrochloride 25 MG Oral Tablet 08/10/2020 12:00:00 A M EST eCW1 ([facility]) Amitriptyline Hydrochloride 25 MG Oral Tablet 08/10/2020 12:00:00 A M EST eCW1 ([facility]) Amitriptyline Hydrochloride 25 MG Oral Tablet 08/10/2020 12:00:00 A M EST eCW1 ([facility]) Furosemide 40 MG Oral Tablet 07/27/2020 12:00:00 AM EST eCW1 ([facility]) Spironolactone 100 MG Oral Tablet 07/27/2020 12:00:00 AM EST eCW1 ([facility]) Ondansetron 4 MG Oral Tablet 07/27/2020 12:00:00 AM EST eCW1 ([facility]) Amitriptyline Hydrochloride 10 MG Oral Tablet 06/08/2020 12:00:00 A M EDT eCW1 ([facility]) Amitriptyline Hydrochloride 10 MG Oral Tablet 06/08/2020 12:00:00 A M EDT eCW1 ([facility]) Amitriptyline Hydrochloride 10 MG Oral Tablet 06/08/2020 12:00:00 A M EDT eCW1 ([facility]) Vitamin K 1 5 MG Oral Tablet 05/28/2020 12:00:00 AM EDT eCW1 ([facility]) Vitamin K 1 5 MG Oral Tablet 05/28/2020 12:00:00 AM EDT eCW1 ([facility]) Hydrocortisone 10 MG Oral Tablet 05/12/2020 12:00:00 AM [facility] Hydrocortisone 10 MG Oral Tablet 05/12/2020 12:00:00 AM [facility] Melatonin 3 MG Oral Tablet 05/11/2020 10:00:00 PM [facility] Promethazine Hydrochloride 25 MG/ML Injectable Solutio n 05/11/2020 12:10:26 PM [facility] Meclizine Hydrochloride 12.5 MG Oral Tablet 05/11/2020 12:10:20 PM [facility] Thiamine 100 MG Oral Tablet 05/11/2020 12:00:00 AM [facility] Hydrocortisone 5 MG Oral Tablet 05/11/2020 12:00:00 AM [facility] Hydrocortisone 10 MG Oral Tablet 05/11/2020 12:00:00 AM [facility] Folic Acid 1 MG Oral Tablet 05/11/2020 12:00:00 AM [facility] Calcium Carbonate 1250 MG / Cholecalciferol 200 UNT Or al Tablet 05/11/2020 12:00:00 AM [facility] Aluminum Hydroxide 40 MG/ML / Magnesium Hydroxide 40 MG/ML / Simethicone 4 MG/ML Oral Suspension 05/11/2020 12:00:00 AM [facility] Ondansetron 4 MG Oral Tablet 05/11/2020 12:00:00 AM [facility] Meclizine Hydrochloride 12.5 MG Oral Tablet 05/11/2020 12:00:00 AM [facility] Meclizine Hydrochloride 12.5 MG Oral Tablet 05/11/2020 12:00:00 AM [facility] Hydrocortisone 5 MG Oral Tablet 05/11/2020 12:00:00 AM [facility] Hydrocortisone 10 MG Oral Tablet 05/11/2020 12:00:00 AM [facility] Aluminum Hydroxide 40 MG/ML / Magnesium Hydroxide 40 MG/ML / Simethicone 4 MG/ML Oral Suspension 05/11/2020 12:00:00 AM [facility] Hydrocortisone 5 MG Oral Tablet 05/11/2020 12:00:00 AM [facility] Hydrocortisone 5 MG Oral Tablet 05/11/2020 12:00:00 AM [facility] Oxycodone Hydrochloride 5 MG Oral Tablet 05/09/2020 01:13:10 PM [facility] Acetaminophen 325 MG / Hydrocodone Bitartrate 5 MG Ora l Tablet 05/06/2020 12:00:00 AM [facility] Thiamine 100 MG Oral Tablet 05/06/2020 12:00:00 AM [facility] Ondansetron 4 MG Oral Tablet 05/06/2020 12:00:00 AM [facility] Tab-A-Franki/Beta Carotene Oral Tablet 05/06/2020 12:00:00 AM [facility] Meclizine Hydrochloride 12.5 MG Oral Tablet 05/06/2020 12:00:00 AM [facility] Folic Acid 1 MG Oral Tablet 05/06/2020 12:00:00 AM [facility] Calcium Carbonate 1250 MG / Cholecalciferol 200 UNT Or al Tablet 05/06/2020 12:00:00 AM [facility] Dextromethorphan Hydrobromide 2 MG/ML / Guaifenesin 20 MG/ML Oral Suspension 04/28/2020 07:00:[address] [facility] sodium chloride (preservative free) 0.9 % flush 10 mL 04/27/2020 02:17:31 PM [facility] dextrose 50 % IV solution 25 mL 04/25/2020 03:04:32 AM [facility] Glucagon 1 MG Injection 04/25/2020 03:04:32 AM [facility] Glucose 0.417 MG/MG Oral Gel 04/25/2020 03:04:32 AM EDT [facility] Meclizine Hydrochloride 25 MG Chewable Tablet 02/07/2020 12:00:00 A M EDT eCW1 ([facility]) Naltrexone hydrochloride 50 MG Oral Tablet 02/07/2020 12:00:00 AM E DT eCW1 ([facility]) doxycycline hyclate 50 MG Oral Capsule 01/01/2020 12:00:00 AM EDT eCW1 ([facility]) doxycycline hyclate 50 MG Oral Capsule 01/01/2020 12:00:00 AM EDT eCW1 ([facility]) Metformin hydrochloride 500 MG Oral Tablet 11/11/2019 12:00:00 AM E DT eCW1 ([facility]) Clindamycin 10 MG/ML Topical Lotion [Cleocin-T] 10/14/2019 12:00:00 AM EST eCW1 ([facility]) adapalene 1 MG/ML Topical Lotion [Differin] 10/14/2019 12:00:00 AM EST eCW1 ([facility]) doxycycline hyclate 100 MG Oral Capsule [facility] atorvastatin 20 MG Oral Tablet [facility] Metformin hydrochloride 500 MG Oral Tablet [facility]
[2020-09-11] MEDS ORDERED: LORazepam 2 MG/ML VIAL IV STA (00:54)
[2020-09-11] MEDS ORDERED: NS 1,000 ML IV ONE (01:00)
[2020-09-11] MEDS ORDERED: ONDANSETRON 4MG/2ML VIAL IV ONE (01:00)
[2020-09-11 01:33] LABS: BASO % 0.5 % (0.0-1.0); EOS # 0.1 10^3/uL (0.0-0.5); EOS % 2.2 % (0.0-3.0); HEMATOCRIT 33.5 % (42.0-52.0); HEMOGLOBIN 11.3 g/dl (13.5-17.5); LYMPH % 25.7 % (24.0-44.0); MEAN CORPUSCULAR HEMOGLOBIN 30.6 pg (27.0-33.0); MEAN CORPUSCULAR HGB CONC 33.7 g/dl (32.0-36.5); MEAN CORPUSCULAR VOLUME 90.8 fl (80.0-96.0); MONO # 0.4 10^3/uL (0.0-0.8); MONO % 9.4 % (0.0-5.0); NEUTROPHILS # 2.5 10^3/uL (1.5-8.5); NEUTROPHILS % 62.2 % (36.0-66.0); PLATELET COUNT, AUTOMATED 107 10^3/uL (150-450); RED BLOOD COUNT 3.69 10^6/uL (4.30-6.10); WHITE BLOOD COUNT 4.1 10^3/uL (4.0-10.0)
[2020-09-11 01:59] LABS: ALBUMIN 2.8 GM/DL (3.2-5.2); BILIRUBIN,DIRECT 0.7 MG/DL (0.0-0.2); BILIRUBIN,TOTAL 1.5 MG/DL (0.2-1.0); TOTAL PROTEIN 6.7 GM/DL (6.4-8.2)
[2020-09-11] MEDS: MORPHINE 4 MG/ML 1ML VIAL/SYRINGE (J2270) IV PRN ×2 (02:20→05:23)
[2020-09-11] MEDS ORDERED: ISOVUE-370 76% 100ML VIAL As Ordered ONE (03:12)
--- OUTSIDE RECORDS SUMMARY | 2020-09-11 03:51 | CCD ---
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 If you continue you may have access to information: Regarding HIV / AIDS; Provided by facilities licensed or operated by the [facility] Office of Mental Health; or Provided by the [facility] Office for People With Developmental Disabilities. If such information is present, then the following [facility] mandated warning applies: This information has [...] law may result in a fine or snf sentence or both. A general authorization for the release of medical or other information is NOT sufficient authorization for further disc losure. Allergies and Adverse Reactions Type Description Substance Reaction Status Data Source(s ) Drug Class NO KNOWN ALLERGIES NO KNOWN ALLERGIES [facility] Encounters Encounter Providers Location Date Indications Data Source(s ) Unknown [address] [facility] [address] 08/27/2020 12:00:00 AM EST eCW1 ([facility]) Unknown [address] [facility] [place] [address] 08/26/2020 12:00:00 AM EST eCW1 ([facility]) Unknown [address] [facility] [place] [address] 07/29/2020 12:00:00 AM EST eCW1 ([facility]) Outpatient Attender: LIN Gottlieb/Kajal/Ilir/ Reinliborio 07/23/2020 08:00:00 AM EST MEDENT ([facility]) Outpatient Attender: KATHY ALFORD 07/15/2020 12:00:00 AM E [facility] Outpatient Attender: KATHY ALFORD [id number] 12:00:00 AM EST - 07/08/2020 02:35:16 PM [facility] Unknown [address] [facility] [place] [address] 07/02/2020 12:00:00 AM EST eCW1 ([facility]) Outpatient Attender: Gerard Marcos 07/01/2020 12:00:00 AM E [facility] Unknown [address] [facility] [place] [address] 06/29/2020 12:00:00 AM EST eCW1 ([facility]) Outpatient Attender: LIN Gottlieb/Kajal/Ilir/ Reindl 06/16/2020 10:50:00 AM EDT MEDENT ([facility]) [place] [address] [facility] [address] 06/08/2020 12:00:00 AM EDT eCW1 ([facility]) [place] [address] [facility] [address] 05/29/2020 12:00:00 AM EDT eCW1 ([facility]) Unknown [address] [facility] [address] 05/28/2020 12:00:00 AM EDT eCW1 ([facility]) Outpatient Attender: LIN Gottlieb/Kajal/Ilir/ Reindl 05/19/2020 01:30:00 PM EDT MEDMAURILIO ([facility] Outpatient Attender: YAHIR VILLAR MDReferrer: YAHIR VILLAR MD 05/07/2020 12:00:00 AM [facility] Outpatient Attender: YAHIR VILLAR MDReferrer: YAHIR VILLAR MD 05/07/2020 12:00:00 AM [facility] Outpatient Attender: LUDIN THORPE MD [id number] 05/04/2020 10:28:14 A M [facility] Unlisted evaluation and management service 04/21 06:10:00 PM EDT NETSMART ([facility]) Inpatient Attender: Onel Adam santiago: YAHIR VILLAR MDAttender: CHIQUI PADRON RESIDENTAttender: REGINA MONTANEZ MDAdmitter: REGINA MONTANEZ MDReferrer: REGINA MONTANEZ MD [id number] 04/25/2020 12:00:00 AM EDT - 05/11/2020 02:37:00 PM EDT Alcoholic hepatitis without ascites [facility] Alcoholic hepatitis without ascites Patient discharged. Unknown [address] [facility] [address] 03/10/2020 12:00:00 AM EDT eCW1 ([facility]) Outpatient [address] [facility] [address] 02/07/2020 12:00:00 AM EDT eCW1 ([facility]) [place] [address] [facility] [address] 02/04/2020 12:00:00 AM EDT eCW1 ([facility]) Outpatient 01/23/2020 04:24:00 AM EDT [facility] Resident [address] [place] [phone] 01/21/2020 12:00:00 AM EDT eCW1 ([facility]) [facility] [place] [address] [facility] [address] 01/14/2020 12:00:00 AM EDT eCW1 ([facility]) [facility] [place] [address] [facility] [place] [address] 01/09/2020 12:00:00 AM EDT eCW1 ([facility]) [facility] Resident [address] [place] [phone] 01/06/2020 12:00:00 AM EDT eCW1 ([facility]) [facility] Resident [address] [place] [phone] 12/31/2019 12:00:00 AM EDT eCW1 ([facility]) [facility] [place] [address] [facility] [place] [address] 12/31/2019 12:00:00 AM EDT eCW1 ([facility]) [facility] Resident [address] [place] [phone] 12/30/2019 12:00:00 AM EDT eCW1 ([facility]) [facility] [place] [address] [place] [address] [place] [address] 12/23/2019 12:00:00 AM EDT eCW1 ([facility]) [facility] Resident [address] [place] [phone] 12/23/2019 12:00:00 AM EDT eCW1 ([facility]) [facility] Resident [address] [place] [phone] 11/11/2019 12:00:00 AM EDT eCW1 ([facility]) [facility] Resident [address] [place] [address] 11/08/2019 12:00:00 AM EDT eCW1 ([facility]) [facility] Resident [address] [place] [phone] 11/08/2019 12:00:00 AM EDT eCW1 ([facility]) [facility] Resident [address] [place] [phone] 11/05/2019 12:00:00 AM EDT eCW1 ([facility]) [facility] Resident [address] [place] [phone] 10/14/2019 12:00:00 AM EST eCW1 ([facility]) [facility] [address] [facility] [address] 09/23/2019 12:00:00 AM EST eCW1 ([facility]) Outpatient 09/21/2019 09:01:00 AM EST [facility] [address] [facility] [place] [address] 09/12/2019 12:00:00 AM EST eCW1 ([facility]) Medications Medication Brand Name Start Date Product Form Dose Route Admi nistrative Instructions Pharmacy Instructions Status Indications Reaction Description Data Source(s) Abdominal Binder/Elastic Large - Abdominal Binder/Elastic La rge - 08/27/2020 12:00:00 AM EST active Abdomina l Binder/Elastic Large - eCW1 ([facility]) Abdominal Binder/Elastic Large - Abdominal Binder/Elastic La rge - 08/27/2020 12:00:00 AM EST active Abdomina l Binder/Elastic Large - eCW1 ([facility]) Abdominal Binder/Elastic Large - Abdominal Binder/Elastic La rge - 08/27/2020 12:00:00 AM EST active Abdomina l Binder/Elastic Large - eCW1 ([facility]) Amitriptyline Hydrochloride 25 MG Oral Tablet Amitript yline HCl 25 MG Amitriptyline HCl 25 MG 08/10/2020 12:00:00 AM EST 1.0 {tablet_at_b edtime} active Amitriptyline HCl 25 MG e CW1 ([facility]) Amitriptyline Hydrochloride 25 MG Oral Tablet Amitript yline HCl 25 MG Amitriptyline HCl 25 MG 08/10/2020 12:00:00 AM EST 1.0 {tablet_at_b edtime} active Amitriptyline HCl 25 MG e CW1 ([facility]) Amitriptyline Hydrochloride 25 MG Oral Tablet Amitript yline HCl 25 MG Amitriptyline HCl 25 MG 08/10/2020 12:00:00 AM EST 1.0 {tablet_at_b edtime} active Amitriptyline HCl 25 MG e CW1 ([facility]) Ondansetron 4 MG Oral Tablet Ondansetron HCl 4 MG Ondansetro n HCl 4 MG 07/27/2020 12:00:00 AM EST 1.0 {tablet} active Ondansetron HCl 4 MG eCW1 ([facility]) Ondansetron 4 MG Oral Tablet Ondansetron HCl 4 MG Ondansetro n HCl 4 MG 07/27/2020 12:00:00 AM EST 1.0 {tablet} active Ondansetron HCl 4 MG eCW1 ([facility]) Spironolactone 100 MG Oral Tablet Spironolactone 100 MG 02/2020 12:00:00 AM EST 1.0 {tablet} active Spironolact one 100 MG eCW1 ([facility]) Spironolactone 100 MG Oral Tablet Spironolactone 100 MG 02/2020 12:00:00 AM EST 1.0 {tablet} active Spironolact one 100 MG eCW1 ([facility]) Furosemide 40 MG Oral Tablet Furosemide 40 MG 07/27/2020 12:00:00 A M EST 1.0 {tablet} active Furosemide 40 MG eCW1 ( [facility]) Ondansetron 4 MG Oral Tablet Ondansetron HCl 4 MG Ondansetro n HCl 4 MG 07/27/2020 12:00:00 AM EST 1.0 {tablet} active Ondansetron HCl 4 MG eCW1 ([facility]) Spironolactone 100 MG Oral Tablet Spironolactone 100 MG 02/2020 12:00:00 AM EST 1.0 {tablet} active Spironolact one 100 MG eCW1 ([facility]) Ondansetron 4 MG Oral Tablet Ondansetron HCl 4 MG Ondansetro n HCl 4 MG 07/27/2020 12:00:00 AM EST 1.0 {tablet} active Ondansetron HCl 4 MG eCW1 ([facility]) Furosemide 40 MG Oral Tablet Furosemide 40 MG 07/27/2020 12:00:00 A M EST 1.0 {tablet} active Furosemide 40 MG eCW1 ( [facility]) Furosemide 40 MG Oral Tablet Furosemide 40 MG 07/27/2020 12:00:00 A M EST 1.0 {tablet} active Furosemide 40 MG eCW1 ( [facility]) Furosemide 40 MG Oral Tablet Furosemide 40 MG 07/27/2020 12:00:00 A M EST 1.0 {tablet} active Furosemide 40 MG eCW1 ( [facility]) Spironolactone 100 MG Oral Tablet Spironolactone 100 MG 02/2020 12:00:00 AM EST 1.0 {tablet} active Spironolact one 100 MG eCW1 ([facility]) Ondansetron 4 MG Oral Tablet Ondansetron HCL 07/23/2020 12:00:00 AM EST completed MEDENT ([facility] ) Amitriptyline Hydrochloride 10 MG Oral Tablet Amitript yline HCl 10 MG Amitriptyline HCl 10 MG 06/08/2020 12:00:00 AM EDT 1.0 {tablet_at_b edtime} active Amitriptyline HCl 10 MG e CW1 ([facility]) Amitriptyline Hydrochloride 10 MG Oral Tablet Amitript yline HCl 10 MG Amitriptyline HCl 10 MG 06/08/2020 12:00:00 AM EDT 1.0 {tablet_at_b edtime} active Amitriptyline HCl 10 MG e CW1 ([facility]) Amitriptyline Hydrochloride 10 MG Oral Tablet Amitript yline HCl 10 MG Amitriptyline HCl 10 MG 06/08/2020 12:00:00 AM EDT 1.0 {tablet_at_b edtime} active Amitriptyline HCl 10 MG e CW1 ([facility]) Amitriptyline Hydrochloride 10 MG Oral Tablet Amitript yline HCl 10 MG Amitriptyline HCl 10 MG 06/08/2020 12:00:00 AM EDT 1.0 {tablet_at_b edtime} active Amitriptyline HCl 10 MG e CW1 ([facility]) Vitamin K 1 5 MG Oral Tablet Phytonadione 5 MG Phytonadione 5 MG 05/28/2020 12:00:00 AM EDT 1.0 {tablet} suspended Phytonadione 5 MG eCW1 ([facility]) Vitamin K 1 5 MG Oral Tablet Phytonadione 5 MG Phytonadione 5 MG 05/28/2020 12:00:00 AM EDT 1.0 {tablet} suspended Phytonadione 5 MG eCW1 ([facility]) Vitamin K 1 5 MG Oral Tablet Phytonadione 5 MG Phytonadione 5 MG 05/28/2020 12:00:00 AM EDT 1.0 {tablet} suspended Phytonadione 5 MG eCW1 ([facility]) Vitamin K 1 5 MG Oral Tablet Phytonadione 5 MG Phytonadione 5 MG 05/28/2020 12:00:00 AM EDT 1.0 {tablet} suspended Phytonadione 5 MG eCW1 ([facility]) Vitamin K 1 5 MG Oral Tablet Phytonadione 5 MG Phytonadione 5 MG 05/28/2020 12:00:00 AM EDT 1.0 {tablet} suspended Phytonadione 5 MG eCW1 ([facility]) Vitamin K 1 5 MG Oral Tablet Phytonadione 5 MG Phytonadione 5 MG 05/28/2020 12:00:00 AM EDT 1.0 {tablet} suspended Phytonadione 5 MG eCW1 ([facility]) Vitamin K 1 5 MG Oral Tablet Phytonadione 5 MG Phytonadione 5 MG 05/28/2020 12:00:00 AM EDT 1.0 {tablet} active Ph ytonadione 5 MG eCW1 ([facility]) Vitamin K 1 5 MG Oral Tablet Phytonadione 5 MG Phytonadione 5 MG 05/28/2020 12:00:00 AM EDT 1.0 {tablet} suspended Phytonadione 5 MG eCW1 ([facility]) Vitamin K 1 5 MG Oral Tablet Phytonadione 5 MG Phytonadione 5 MG 05/28/2020 12:00:00 AM EDT 1.0 {tablet} active Ph ytonadione 5 MG eCW1 ([facility]) Hydrocortisone 10 MG Oral Tablet Hydrocortisone 10 MG Oral Tablet (CORTEF) Hydrocortisone 10 MG Oral Tablet (CORTEF) 05/12/2020 12:00:00 AM EDT 10 mg Oral aborted Take 1 tablet by [facility] Hydrocortisone 10 MG Oral Tablet Hydrocortisone 10 MG Oral Tablet (CORTEF) Hydrocortisone 10 MG Oral Tablet (CORTEF) 05/12/2020 12:00:00 AM EDT 10 mg Oral aborted Take 1 tablet by [facility] Melatonin 3 MG Oral Tablet melatonin tablet 3 mg melatonin t ablet 3 mg 05/11/2020 10:00:00 PM EDT 3 mg Oral active 3 mg, Oral, Nightly, First dose on Mon05/11/20 at 2200, For 30 days [facility] Medication administered onsite Promethazine Hydrochloride 25 [...] 15 minutes. Do NOT give IV push.
[facility] Medication administered onsite Meclizine Hydrochloride 12.5 MG Oral Tablet meclizine (ANTIVERT) tablet 12.5 mg meclizine (ANTIVERT) tablet 12.5 mg 05/11/2020 12:10:20 PM EDT 12.5 m g Oral active 12.5 mg, Oral, T hree Times Daily-PRN, Dizziness, Starting Mon05/11/20 at 1210, For 72 hours [facility] Medication administered onsite potassium & sodium phosphates (PHOS-NAK) 280-160-250 MG 2 pa cket [id number] 05/11/2020 09:30:00 AM EDT 2 {packet} Oral active 2 packet, Oral, Four Times Daily-With Meals & Nightly, First dose on Mon05/11/20 at 0930, For 1 day
Dissolve in 75mls of water or juice.
Each 250 mg packet contains: 250 mg (8 mmol) elemental phosphorous, 164 mg (7.1 mEq) sodium, 278 mg (7.1 mEq) potassium.
[facility] Medication administered onsite Hydrocortisone 10 MG Oral Tablet Hydrocortisone 10 MG Oral Tablet (CORTEF) Hydrocortisone 10 MG Oral Tablet (CORTEF) 05/11/2020 12:00:00 AM EDT 10 mg Oral active Take 1 tablet by lisa th every morning [facility] Folic Acid 1 MG Oral Tablet Folic Acid 1 MG Oral Table t (FOLVITE) Folic Acid 1 MG Oral Tablet (FOLVITE) 05/11/2020 12:00:00 AM EDT 1 mg Oral active Take 1 tablet by mouth daily [facility] Calcium Carbonate 1250 MG / Cholecalcife rol 200 UNT Oral Tablet Calcium Carbonate-Vitamin D 500-200 MG-UNIT Oral Tablet (OSCAL-500) Calcium Carbonate- Vitamin D 500-200 MG-UNIT Oral Tablet (OSCAL-500) 05/11/2020 12:00:00 AM EDT 1 {tbl} Oral active Take 1 tablet by mouth d [facility] Thiamine 100 MG Oral Tablet Thiamine HCl 100 MG Oral T ablet (B-1) Thiamine HCl 100 MG Oral Tablet (B-1) 05/11/2020 12:00:00 AM EDT 100 mg Oral active Take [facility] On[facility] 4 MG Oral Tablet Ondansetron HCl 4 MG Oral Tablet (ZOFRAN) Ondansetron HCl 4 MG Oral Tablet (ZOFRAN) 05/11/2020 12:00:00 AM EDT 4 mg Oral active Take 1 tablet by mouth every 8 (eight) hours as needed for up to 7 days [facility] Meclizine Hydrochloride 12.5 MG Oral Tab let Meclizine HCl 12.5 MG Oral Tablet (ANTIVERT) Meclizine HCl 12.5 MG Oral Tablet (ANTIVERT) 0 12:00:00 AM EDT 12.5 mg Oral active Take 1 t ablet by mouth Three times daily as needed for Dizziness for up to 10 days [facility] Hydrocortisone 5 MG Oral Tablet Hydrocortisone 5 MG Or al Tablet (CORTEF) Hydrocortisone 5 MG Oral Tablet (CORTEF) 05/11/2020 12:00:00 AM EDT 5 mg Oral active Take 1 tablet by mouth ev rayshawn evening [facility] Hydrocortisone 10 MG Oral Tablet Hydrocortisone 10 MG Oral Tablet (CORTEF) Hydrocortisone 10 MG Oral Tablet (CORTEF) 05/11/2020 12:00:00 AM EDT 10 mg Oral aborted Take 1 tablet by lisa th every morning [facility] Aluminum Hydroxide 40 MG/ML / Magnesium Hydroxide 40 MG/ML / Simethicone 4 MG/ML Oral Suspension Alum & Mag Hydroxide-Simeth 200-200-20 MG/5ML Oral Suspension (MAALOX PLUS) Alum & Mag Hydroxide-Simeth 200-200-20 M G/5ML Oral Suspension (MAALOX PLUS) 05/11/2020 12:00:00 AM EDT 30 mL Oral abor rosa Take 30 mLs by mouth every 6 (six) hours as needed (heartburn) [facility] Aluminum Hydroxide 40 MG/ML / Magnesium Hydroxide 40 MG/ML / Simethicone 4 MG/ML Oral Suspension Alum & Mag Hydroxide-Simeth 200-200-20 MG/5ML Oral Suspension (MAALOX PLUS) Alum & Mag Hydroxide-Simeth 200-200-20 M G/5ML Oral Suspension (MAALOX PLUS) 05/11/2020 12:00:00 AM EDT 30 mL Oral acti ve Take 30 mLs by mouth every 6 (six) hours as needed (heartburn) [facility] Meclizine Hydrochloride 12.5 MG Oral Tab let Meclizine HCl 12.5 MG Oral Tablet (ANTIVERT) Meclizine HCl 12.5 MG Oral Tablet (ANTIVERT) 0 12:00:00 AM EDT 12.5 mg Oral aborted Take 1 t ablet by mouth Three times daily as needed for Dizziness for up to 10 days [facility] Hydrocortisone 5 MG Oral Tablet Hydrocortisone 5 MG Or al Tablet (CORTEF) Hydrocortisone 5 MG Oral Tablet (CORTEF) 05/11/2020 12:00:00 AM EDT 5 mg Oral aborted Take 1 tablet by mouth antwan rayshawn evening [facility] Hydrocortisone 5 MG Oral Tablet Hydrocortisone 5 MG Or al Tablet (CORTEF) Hydrocortisone 5 MG Oral Tablet (CORTEF) 05/11/2020 12:00:00 AM EDT 5 mg Oral aborted Take 1 tablet by mouth [facility] Hydrocortisone 5 MG Oral Tablet Hydrocortisone 5 MG Or al Tablet (CORTEF) Hydrocortisone 5 MG Oral Tablet (CORTEF) 05/11/2020 12:00:00 AM EDT 5 mg Oral aborted Take 1 tablet by mouth [facility] Hydrocortisone 10 MG Oral Tablet hydrocortisone (EDA F) tablet 10 mg hydrocortisone (CORTEF) tablet 10 mg 05/10/2020 09:00:00 AM EDT 10 mg Oral active 10 mg, Oral, Preeti ly Standard, First dose on 05/10/20 at 0900, For 30 days [facility] Medication administered onsite Hydrocortisone 5 MG Oral Tablet hydrocortisone (CORTEF ) tablet 5 mg hydrocortisone (CORTEF) tablet 5 mg 05/09/2020 05:00:00 PM EDT 5 mg Oral active 5 mg, Oral, Daily S tandard, First dose on 05/09/20 at 1700, For 30 days
Take with food.
[facility] Medication administered onsite Oxycodone Hydrochloride 5 [...] only) require Pain Service consultation and approval.
[facility] Medication administered onsite Acetaminophen 325 MG [...] mg from all sources in 24 hours.
[facility] Medication administered onsite ondansetron (ZOFRAN) injection [...] 1223, For 7 days [Order 2 End] [facility] Medication administered onsite iohexol (OMNIPAQUE) 300 MG/ML contrast injection 100 mL 1775 0905/07/2020 09:00:00 PM EDT 100 mL Given by IV completed 100 mL, Given by IV, 1 TIME IMAGING, [facility] 05/07/20 at 2100, For 1 dose [facility] Medication administered onsite iohexol (OMNIPAQUE) 240 MG/ML contrast 20 mL [id number] 06:34:42 PM EDT 20 mL Oral completed 20 mL, Oral, O nce PRN, Contrast, Per Protocol, Starting [facility] 05/07/20 at 1834, For [address] Scanner prior. call center manager to CT.Dilute in 500 mL liquid x1 transverse abdominal muscle surgeon to CT scan - per protocol. Use "Contrast dose chart" link for dosing guidelines.
[facility] Medication administered onsite iohexol (OMNIPAQUE) 240 MG/ML contrast 20 mL [id number] 06:34:42 PM EDT 20 mL Oral completed 20 mL, Oral, O nce PRN, Contrast, Per Protocol, Starting [facility] 05/07/20 at 1834, For [address] to tell RN administration time of first dose. Dilute in 500 mL liquid x1 Now per protocol. Use "Contrast dose chart" link for dosing guidelines.
[facility] Medication administered onsite Magnesium Oxide 400 MG Oral Tablet Magnesium Oxide (MA G-OX) tablet 400 mg Magnesium Oxide (MAG-OX) tablet 400 mg 05/07/2020 02:30:00 PM EDT 4 00 mg Oral completed 400 mg, Oral, D maiday Standard, First dose on Melissa 05/07/20 at 1430, For 5 doses [facility] Medication administered onsite TC-99M mebrofenin (CHOLETEC) [address]-6 05/07/2020 12:30:00 PM EDT Intravenous completed Intravenous, Once, Melissa 05/07/20 at 1230, For 1 dose, Imaging Protocol [facility] Medication administered onsite Glucose 50 MG/ML / Potassium Chloride 0. 02 MEQ/ML / Sodium Chloride 0.154 MEQ/ML Injectable Solution dextrose 5 % and 0.9 % NaCl with KCl 20 mEq infusion dextrose 5 % and 0.9 % NaCl with KCl 20 mEq infusion 05/07/2020 09:00:00 AM EDT Intravenous aborted at 75 mL/hr, Intravenous, Continuous, Starting Melissa 05/07/20 at 0900, For 2 days [facility] Medication administered onsite Potassium Chloride 0.02 MEQ/ML / Sodium Chloride 0.154 MEQ/ML Injectable Solution 0.9 % NaCl with KCl 20 mEq infusion 0.9 % NaCl with KCl 20 mEq infusion 05/07/2020 08:00:00 AM EDT Intravenous aborte d at 75 mL/hr, Intravenous, Continuous, Starting [facility] 05/07/20 at 0800, For 24 hours [facility] Medication administered onsite Lactulose 83.3 MG/ML Oral Solution lactulose (CEPHULAC ) packet 10 g lactulose (CEPHULAC) packet 10 g 05/06/2020 09:30:00 AM EDT 10 g Oral active 10 g, Oral, 2 Times Daily, First dose (after last reorder) on Mon05/06/20 at 0930, For 58 doses
Dissolve in 4 oz water. Can hold if pt has 2 bowel movements in a day.
[facility] Medication administered onsite Promethazine Hydrochloride 25 [...] 15 minutes. Do NOT give IV push.
[facility] Medication administered onsite Calcium Carbonate 1250 MG / Cholecalcife rol 200 UNT Oral Tablet Calcium Carbonate-Vitamin D 500-200 MG-UNIT Oral Tablet (OSCAL-500) Calcium Carbonate- Vitamin D 500-200 MG-UNIT Oral Tablet (OSCAL-500) 05/06/2020 12:00:00 AM EDT 1 {tbl} Oral aborted Take 1 tablet by mouth d [facility] Acetaminophen 325 MG / Hydrocodone George trate 5 MG Oral Tablet HYDROcodone- Acetaminophen 5-325 MG Oral Tablet (LORTAB) HYDROcodone-Acetaminophen 5-325 MG Oral Tablet (LORTAB) 05/06/2020 12:00:00 AM EDT 1 {tbl} Oral aborted Take 1 tablet by mouth every 6 (six) hours as needed for up to 3 days, Max Daily Dose: 4 tablets [facility] Meclizine Hydrochloride 12.5 MG Oral Tab let Meclizine HCl 12.5 MG Oral Tablet (ANTIVERT) Meclizine HCl 12.5 MG Oral Tablet (ANTIVERT) 0 12:00:00 AM EDT 12.5 mg Oral aborted Take 1 t ablet by mouth Three times daily as needed for Dizziness for up to 10 days [facility] Folic Acid 1 MG Oral Tablet Folic Acid 1 MG Oral Table t (FOLVITE) Folic Acid 1 MG Oral Tablet (FOLVITE) 05/06/2020 12:00:00 AM EDT 1 mg Oral aborted Take 1 tablet by mouth daily [facility] Ondansetron 4 MG Oral Tablet Ondansetron HCl 4 MG Oral Tablet (ZOFRAN) Ondansetron HCl 4 MG Oral Tablet (ZOFRAN) 05/06/2020 12:00:00 AM EDT 4 mg Oral aborted Take 1 tablet by mouth every 8 (eight) hours as needed for up to 7 days [facility] Tab-A-Franki/Beta Carotene Oral Tablet [id number] 05/06/2020 12:00: 00 AM EDT 1 {tbl} Oral aborted Take 1 tablet by mouth d [facility] Thiamine 100 MG Oral Tablet Thiamine HCl 100 MG Oral T ablet (B-1) Thiamine HCl 100 MG Oral Tablet (B-1) 05/06/2020 12:00:00 AM EDT 100 mg Oral aborted Take 1 tablet by mouth daily [facility] magnesium sulfate in dextrose 5 % infusion (premix) 1 g 0409 -6727-05/05/2020 07:00:00 PM EDT 1 g Intravenous completed 1 g, Intravenous, Administer over 60 Minutes, Once, Mon05/05/20 at 1900, For 1 dose [facility] Medication administered onsite potassium chloride (KLOR-CON) packet 40 mEq [id number] 05/05/2020 07:00:00 PM EDT 40 meq Oral completed 40 mEq , Oral, 2 Times Daily, First dose on Mon05/05/20 at 1900, For 2 doses
Mix in 4 ounces of water or juice
[facility] Medication administered onsite magnesium sulfate in dextrose 5 % infusion (premix) 8 mEq 04 05/05/2020 11:30:00 AM EDT 8 meq Intravenous completed 8 mEq, Intravenous, Administer over 60 Minutes, Once, Mon05/05/20 at 1130, For 1 dose
each 8 mEq equivalent to 1 gm
[facility] Medication administered onsite Acetaminophen 325 MG [...] mg from all sources in 24 hours.
[facility] Medication administered onsite Potassium Chloride 0.02 MEQ/ML / Sodium Chloride 0.154 MEQ/ML Injectable Solution 0.9 % NaCl with KCl 20 mEq infusion 0.9 % NaCl with KCl 20 mEq infusion 05/05/2020 10:00:00 AM EDT Intravenous aborte d at 75 mL/hr, Intravenous, Continuous, Starting Mon05/05/20 at 1000, For 30 days [facility] Medication administered onsite multivitamin tablet 1 tablet [id number] 05/05/2020 09:00:00 AM EDT 1 {tbl} Oral active 1 tablet, Oral , Daily Standard, First dose on Mon05/05/20 at 0900, For 30 days [facility] Medication administered onsite Meclizine Hydrochloride 12.5 MG Oral Tablet meclizine (ANTIVERT) tablet 12.5 mg meclizine (ANTIVERT) tablet 12.5 mg 05/04/2020 07:03:43 PM EDT 12.5 m g Oral completed 12.5 mg, Oral, T hree Times Daily-PRN, Dizziness, Starting 05/04/20 at 1903, For 6 days 15 hours [facility] Medication administered onsite Meclizine Hydrochloride 12.5 MG Oral Tablet meclizine (ANTIVERT) tablet 12.5 mg meclizine (ANTIVERT) tablet 12.5 mg 05/04/2020 01:45:00 AM EDT 12.5 m g Oral completed 12.5 mg, Oral, Once, 04/21 at 0145, For 1 dose [facility] Medication administered onsite Oxazepam 10 MG Oral Capsule oxazepam (SERAX) capsule 1 0 mg oxazepam (SERAX) capsule 10 mg 05/03/2020 02:00:00 PM EDT 10 mg Oral comp leted 10 mg, Oral, Three Times Daily Standard, First dose (after last modification) on 05/03/20 at 1400, For 1 dose [facility] Medication administered onsite potassium chloride (KLOR-CON) packet 40 mEq [id number] 05/02/2020 08:00:00 AM EDT 40 meq Oral completed 40 mEq , Oral, Once, 05/02/20 at 0800, For 1 dose
Mix in 4 ounces of water or juice
[facility] Medication administered onsite Hydroxyzine Pamoate 25 MG Oral Capsule hydrOXYzine ( STARIL) capsule 25 mg hydrOXYzine (VISTARIL) capsule 25 mg 05/01/2020 09:00:00 PM EDT 25 mg Oral completed 25 mg, Oral, Once, Fri at 2100, For 1 dose [facility] Medication administered onsite gabapentin 100 MG Oral Capsule gabapentin (NEURONTIN) capsule 100 mg gabapentin (NEURONTIN) capsule 100 mg 05/01/2020 05:00:00 PM EDT 100 mg Oral aborted 100 mg, Oral, Three Times D aily Standard, First dose on Mon05/01/20 at 1700, For 30 days [facility] Medication administered onsite Potassium Chloride 0.1 MEQ/ML Injectable Solution potassium chloride 10 mEq in 100 mL IVPB (premix) potassium chloride 10 mEq in 100 mL IVPB (premix) 05/01/2020 04:00:00 PM EDT 10 meq Intravenous completed 10 mEq, Intravenous, Every 1 hour, First dose (after last modification) on Mon05/01/20 at 1600, For 2 doses [facility] Medication administered onsite Potassium Chloride 0.1 MEQ/ML Injectable Solution potassium chloride 10 mEq in 100 mL IVPB (premix) potassium chloride 10 mEq in 100 mL IVPB (premix) 05/01/2020 12:00:00 PM EDT 10 meq Intravenous aborted 10 mEq, Intravenous, Every 1 hour, First dose on Mon05/01/20 at 1200, For 4 doses [facility] Medication administered onsite Magnesium Oxide 400 MG Oral Tablet Magnesium Oxide (MA G-OX) tablet 400 mg Magnesium Oxide (MAG-OX) tablet 400 mg 05/01/2020 09:00:00 AM EDT 4 00 mg Oral completed 400 mg, Oral, 2 Times Daily, First dose on Mon05/01/20 at 0900, For 1 dose [facility] Medication administered onsite potassium & sodium phosphates (PHOS-NAK) 280-160-250 MG 1 pa cket [id number] 04/30/2020 05:30:00 PM EDT 1 {packet} Oral completed 1 packet, Oral, Before Meals & Nightly - Four Times Daily, First dose on Mon04/30/20 at 1730, For 1 dose
Dissolve in 75mls of water or juice.
Each 250 mg packet contains: 250 mg (8 mmol) elemental phosphorous, 164 mg (7.1 mEq) sodium, 278 mg (7.1 mEq) potassium.
[facility] Medication administered onsite Calcium Carbonate 1250 MG / Cholecalcife rol 200 UNT Oral Tablet calcium-vitamin D (OSCAL-500) 500-200 MG-UNIT per tablet 1 tablet calcium-vitamin D (OSCAL-500) 500-200 MG-UNIT per tablet 1 tablet 04/30/2020 09:00:00 AM EDT 1 {tbl } Oral active 1 tablet, Oral, Daily Standard, First dose on Melissa 04/30/20 at 0900, For 30 days [facility] Medication administered onsite magnesium sulfate in dextrose 5 % infusion (premix) 8 mEq 04 [id number] 04/29/2020 02:00:00 PM EDT 8 meq Intravenous completed 8 mEq, Intravenous, Administer over 60 Minutes, Once, Mon04/29/20 at 1400, For 1 dose
each 8 mEq equivalent to 1 gm
[facility] Medication administered onsite sodium chloride (preservative [...] Extended Dwell/Midline Peripheral Catheter.
[Order 3 End] [facility] Medication administered onsite Hydroxyzine Hydrochloride 10 MG Oral Tablet hydrOXYzin e (ATARAX) tablet 10 mg hydrOXYzine (ATARAX) tablet 10 mg 04/29/2020 12:30:00 AM EDT 10 mg Oral completed 10 mg, Oral, Once, Mon04/29/20 at 0030, For 1 dose [facility] Medication administered onsite Dextromethorphan Hydrobromide 2 MG/ML / Guaifenesin 20 MG/ML Oral Suspension guaifenesin-dextromethorphan (ROBITUSSIN DM) 100-10 MG/5ML syrup 5 mL guaifenesin-dextromethorphan (ROBITUSSIN DM) 100-10 MG/5ML syrup 5 mL 04/28/2020 07:00:00 PM EDT 5 mL Oral active 5 mL, Oral, Every 4 hours PRN, Cough, Starting Mon04/28/20 at 1900, For 30 days [facility] Medication administered onsite Potassium Chloride 0.1 MEQ/ML Injectable Solution potassium chloride 10 mEq in 100 mL IVPB (premix) potassium chloride 10 mEq in 100 mL IVPB (premix) 04/28/2020 04:00:00 PM EDT 10 meq Intravenous completed 10 mEq, Intravenous, Every 1 hour, First dose (after last reorder) on Mon04/28/20 at 1600, For 4 doses [facility] Medication administered onsite phytonadione (VITAMIN K1) 10 mg in dextrose 5 % 50 mL IVPB 04/28/2020 02:30:00 PM EDT 10 mg Intravenous completed 10 mg, Intravenous, Administer over 15 Minutes, Once, Mon04/28/20 at 1430, For 1 dose [facility] Medication administered onsite Oxycodone Hydrochloride 5 [...] only) require Pain Service consultation and approval.
[facility] Medication administered onsite Oxazepam 10 MG Oral Capsule oxazepam (SERAX) capsule 1 0 mg oxazepam (SERAX) capsule 10 mg 04/27/2020 09:00:00 PM EDT 10 mg Oral abor rosa 10 mg, Oral, Three Times Daily Standard, First dose (after last modification) on Mon04/27/20 at 2100, For 24 doses [facility] Medication administered onsite Lactulose 83.3 MG/ML Oral Solution lactulose (CEPHULAC ) packet 10 g lactulose (CEPHULAC) packet 10 g 04/27/2020 09:00:00 PM EDT 10 g Oral aborted 10 g, Oral, 2 Times Daily, First dose (after last modification) on Mon04/27/20 at 2100, For 58 doses
Dissolve in 4 oz water
[facility] Medication administered onsite sodium chloride (preservative [...] Heparin 10 units/mL to lock. Reference Policy [facility]-34 Central Line Policy.
[Order 1 End] [...] mL Heparin 10 units/mL to lock.Reference Policy [facility]-34 Central Line Policy.
[Order 2 End] [Order 3 Start] Name: sodium chloride (preservative free) 0.9 % flush 10 mL Signed Summary: 10 mL, Intravenous, Every 12 hours, First dose on Mon04/27/20 at 1430, For 30 days
WHEN NOT IN USE - Verify blood return before use. Flush with 10 mL of Sodium Chloride 0.9 % and 2 mL Heparin 10 units/mL.Reference Policy [facility]-34 Central Line Policy.
[Order 3 End] [...] C-34H Central Line Policy.
[Order 4 End] [facility] Medication administered onsite Potassium Chloride 0.1 MEQ/ML Injectable Solution potassium chloride 10 mEq in 100 mL IVPB (premix) potassium chloride 10 mEq in 100 mL IVPB (premix) 04/27/2020 12:00:00 PM EDT 10 meq Intravenous completed 10 mEq, Intravenous, Administer over 60 Minutes, Every 1 hour, First dose on Mon04/27/20 at 1200, For 4 doses [facility] Medication administered onsite magnesium sulfate in dextrose 5 % infusion (premix) 8 mEq 672704/27/2020 12:00:00 PM EDT 8 meq Intravenous completed 8 mEq, Intravenous, Administer over 60 Minutes, Every 1 hour, First dose on Mon04/27/20 at 1200, For 2 doses
each 8 mEq equivalent to 1 gm
[facility] Medication administered onsite Vitamin K 1 5 MG Oral Tablet phytonadione (MEPHYTON) t ablet 10 mg phytonadione (MEPHYTON) tablet 10 mg 04/27/2020 11:45:00 AM EDT 10 mg Oral completed 10 mg, Oral, Once, Mon04/27/20 at 1145, For 1 dose [facility] Medication administered onsite prednisolone 3 MG/ML Oral Solution predn isoLONE (ORAPRED) 15 MG/5ML solution 40 mg prednisoLONE (ORAPRED) 15 MG/5ML solution 40 mg 04/27/2020 11:45 :00 AM EDT 40 mg Oral aborted 40 mg, Ora l, Daily Standard, First dose on Mon04/27/20 at 1145, For 10 doses [facility] Medication administered onsite Prednisone 20 MG Oral Tablet predniSONE (DELTASONE) ta blet 40 mg predniSONE (DELTASONE) tablet 40 mg 04/27/2020 09:00:00 AM EDT 40 mg Oral aborted 40 mg, Oral, Daily Standard, First dose on Mon04/27/20 at 0900, For 30 days
Take with food.
[facility] Medication administered onsite Lactulose 83.3 MG/ML Oral Solution lactulose (CEPHULAC ) packet 20 g lactulose (CEPHULAC) packet 20 g 04/26/2020 09:00:00 PM EDT 20 g Oral aborted 20 g, Oral, 2 Times Daily, First dose on 04/26/20 at 2100, For 30 days
Dissolve in 4 oz water
[facility] Medication administered onsite Potassium Chloride 0.1 MEQ/ML Injectable Solution potassium chloride 10 mEq in 100 mL IVPB (premix) potassium chloride 10 mEq in 100 mL IVPB (premix) 04/26/2020 09:00:00 PM EDT 10 meq Intravenous completed 10 mEq, Intravenous, Every 1 hour, First dose on 04/26/20 at 2100, For 4 doses [facility] Medication administered onsite Oxazepam 10 MG Oral Capsule oxazepam (SERAX) capsule 2 0 mg oxazepam (SERAX) capsule 20 mg 04/26/2020 04:00:00 PM EDT 20 mg Oral abor rosa 20 mg, Oral, Three Times Daily Standard, First dose (after last modification) on 04/26/20 at 1600, For 18 doses [facility] Medication administered onsite dextrose 5 %-0.9 % sodium chloride infusion [id number] 04/26/2020 02:45:00 PM EDT Intravenous completed at 100 mL/hr, Intravenous, Continuous, Starting 04/26/20 at 1445, For 2 days [facility] Medication administered onsite Vitamin K 1 5 MG Oral Tablet phytonadione (MEPHYTON) t ablet 10 mg phytonadione (MEPHYTON) tablet 10 mg 04/26/2020 01:30:00 PM EDT 10 mg Oral completed 10 mg, Oral, Once, 04/26/20 at 1330, For 1 dose [facility] Medication administered onsite Oxazepam 10 MG Oral Capsule oxazepam (SERAX) capsule 1 0 mg oxazepam (SERAX) capsule 10 mg 04/26/2020 11:30:00 AM EDT 10 mg Oral comp leted 10 mg, Oral, Once, 04/26/20 at 1130, For 1 dose [facility] Medication administered onsite sodium chloride 0.9 % bolus 1,000 mL [id number] 04/26/2020 10:00: 00 AM EDT 1000 mL Intravenous completed 1,000 mL , Intravenous, Once, 04/26/20 at 1000, For 1 dose [facility] Medication administered onsite magnesium sulfate in dextrose 5 % infusion (premix) 8 mEq 04 [id number] 04/26/2020 09:00:00 AM EDT 8 meq Intravenous completed 8 mEq, Intravenous, Administer over 60 Minutes, Every 1 hour, First dose on 04/26/20 at 0900, For 3 doses
each 8 mEq equivalent to 1 gm
[facility] Medication administered onsite Pentoxifylline 400 MG Extended Release O ral Tablet pentoxifylline (TRENTAL) CR tablet 400 mg pentoxifylline (TRENTAL) CR tablet 400 mg 04/25/2020 0 6:00:00 PM EDT 400 mg Oral aborted 400 mg, Oral, Three Times Daily-With Meals, First dose on 04/25/20 at 1800, For 30 days
Take with food.
[facility] Medication administered onsite Oxazepam 10 MG Oral Capsule oxazepam (SERAX) capsule 1 0 mg oxazepam (SERAX) capsule 10 mg 04/25/2020 04:00:00 PM EDT 10 mg Oral abor rosa 10 mg, Oral, Three Times Daily Standard, First dose on 04/25/20 at 1600, For 7 days [facility] Medication administered onsite Potassium Chloride 0.1 MEQ/ML Injectable Solution potassium chloride 10 mEq in 100 mL IVPB (premix) potassium chloride 10 mEq in 100 mL IVPB (premix) 04/25/2020 02:00:00 PM EDT 10 meq Intravenous completed 10 mEq, Intravenous, Every 1 hour, First dose (after last reorder) on 04/25/20 at 1400, For 4 doses [facility] Medication administered onsite sodium chloride 0.9 % 1,000 mL with MVI adult 10 mL, folic acid 1 mg, magnesium sulfate 16 mEq, thiamine (B-1) 100 mg infusion 04/25/2020 09:00:00 AM EDT Intravenous aborted Intravenous, Continuous, Starting 04/25/20 at 0900, For 3 days [facility] Medication administered onsite pantoprazole 4 MG/ML Injectable Solution pantoprazole (PROTONIX) injection 40 mg pantoprazole (PROTONIX) injection 40 mg 04/25/2020 09:00:00 AM EDT 40 mg Intravenous active 40 mg, Intrav enous, Daily Standard, First dose on 04/25/20 at 0900, For 30 days
Dilute with 10 mL of 0.9% NaCl.Give IVP over 2 minutes. Flush before and after.
[facility] Medication administered onsite 0.4 ML Enoxaparin [...] hours after epidural catheter has been removed.
[facility] Medication administered onsite Thiamine 100 MG Oral Tablet thiamine (B-1) tablet 100 mg thiamine (B-1) tablet 100 mg 04/25/2020 09:00:00 AM EDT 100 mg Oral active 100 mg, Oral, Daily Standard, First dose on 04/25/20 at 0900, For 30 days [facility] Medication administered onsite Folic Acid 1 MG Oral Tablet folic acid (FOLVITE) table t 1 mg folic acid (FOLVITE) tablet 1 mg 04/25/2020 09:00:00 AM EDT 1 mg Oral active 1 mg, Oral, Daily Standard, First dose on 04/25/20 at 0900, For 30 days [facility] Medication administered onsite Potassium Chloride 0.1 MEQ/ML Injectable Solution potassium chloride 10 mEq in 100 mL IVPB (premix) potassium chloride 10 mEq in 100 mL IVPB (premix) 04/25/2020 08:00:00 AM EDT 10 meq Intravenous completed 10 mEq, Intravenous, Every 1 hour, First dose on 04/25/20 at 0800, For 4 doses [facility] Medication administered onsite potassium chloride (K-DUR) dissolvable tablet 40 mEq [id number] 04/25/2020 08:00:00 AM EDT 40 meq Oral completed 40 mEq, Oral, Once, 04/25/20 at 0800, For 1 dose
Do not crush or chew
[facility] Medication administered onsite 50 ML Magnesium Sulfate 40 MG/ML Injecti on magnesium sulfate infusion 2 g/50 mL (premix) magnesium sulfate infusion 2 g/50 mL (premix) 04/25/20 08:00:00 AM EDT 16 meq Intravenous completed 16 mEq, Intravenous, Administer over 60 Minutes, Once, 04/25/20 at 0800, For 1 dose
each 8 mEq equivalent to 1 gm
[facility] Medication administered onsite insulin lispro (HumaLOG) injection LOW DOSE EATING INS ULIN patients 1-8 Units [id number] 04/25/2020 08:00:00 AM EDT U Subcutaneous aborted 1-8 Units, Subcutaneous, Three Times Daily-With Meals, First dose on 04/25/20 at 0800, For 30 days
Nursing MUST open the 'SQ Insulin Dosing Charts' Sidebar Report, or, the Patient Summary or Summary Report within the ED.
[facility] Medication administered onsite iohexol (OMNIPAQUE) 300 MG/ML contrast injection 100 mL 1776 02 04/25/2020 05:45:00 AM EDT 100 mL Given by IV completed 100 mL, Given by IV, 1 TIME IMAGING, 04/25/20 at 0545, For 1 dose [facility] Medication administered onsite lactated ringers bolus 2,000 mL [id number] 04/25/2020 05:00:00 AM EDT 2000 mL Intravenous completed 2,000 mL , Intravenous, Once, 04/25/20 at 0500, For 1 dose [facility] Medication administered onsite diazePAM (VALIUM) injection 10 mg [id number] 04/25/2020 04:00:00 AM EDT 10 mg Intravenous aborted 10 mg, I ntravenous, Every 1 hour, First dose on 04/25/20 at 0400, For 4 doses
Maximum of 40 mg in 4 hour period. If patient is sleeping, do not wake them to administer Diazepam or to assess the CIWA score. Assess once patient awakens.
[facility] Medication administered onsite morphine sulfate (PF) injection 4 mg [id number] 04/25/2020 03:28: 20 AM EDT 4 mg Intravenous aborted 4 mg, In travenous, Every 4 hours PRN, Moderate Pain (Pain Scale Score 4-6), Severe Pain (Pain Scale Score 7-10), Starting 04/25/20 at 0328, For 3 days [facility] Medication administered onsite Calcium Chloride 0.0014 MEQ/ML / Potassi um Chloride 0.004 MEQ/ML / Sodium Chloride 0.103 MEQ/ML / Sodium Lactate 0.028 MEQ/ML Injectable Solution lactated ringers infusion lactated ringers infusion 04/25/2020 03:15:00 AM EDT 100 mL/h Intravenous aborted at 100 m L/hr, Intravenous, Continuous, Starting 04/25/20 at 0315, For 30 days [facility] Medication administered onsite dextrose 50 % IV solution 25 mL [id number] 04/25/2020 03:04:32 AM E DT 25 mL Intravenous active 25 mL, Intrav enous, PRN, Other, blood glucose <55, Starting 04/25/20 at 0304, For 30 days
Not for midline administration.
[facility] Medication administered onsite Glucagon 1 MG Injection glucagon (human recombinant) ( GLUCAGEN) injection 1 mg glucagon (human recombinant) (GLUCAGEN) injection 1 mg 04/25/2020 03:04:32 AM EDT 1 mg Intramuscular active 1 mg, Intramuscular, PRN, for glucose <55 without IV access, Starting 04/25/20 at 0304, For 30 days [facility] Medication administered onsite Glucose 0.417 MG/MG Oral Gel glucose (GLUTOSE) 40 % or al gel 15 g glucose (GLUTOSE) 40 % oral gel 15 g 04/25/2020 03:04:32 AM EDT 15 g Oral active 15 g, Oral, PRN, Low blood s ugar, for gluose 55-69 mg/dl and able to take PO, Starting 04/25/20 at 0304, For 30 days [facility] Medication administered onsite Meclizine Hydrochloride 25 MG Chewable Tablet Meclizin e HCl 25 MG Meclizine HCl 25 MG 02/07/2020 12:00:00 AM EDT 1.0 {tablet_as_needed} active Meclizine HCl 25 MG eCW1 ([facility]) Naltrexone hydrochloride 50 MG Oral Tablet Naltrexone HCl 50 MG Naltrexone HCl 50 MG 02/07/2020 12:00:00 AM EDT 1.0 {tablet} activ e Naltrexone HCl 50 MG eCW1 ([facility]) doxycycline hyclate 50 MG Oral Capsule Doxycycline Hyc late 50 MG Doxycycline Hyclate 50 MG 01/01/2020 12:00:00 AM EDT 1.0 {capsule} active Doxycycline Hyclate 50 MG eCW1 ([facility]) doxycycline hyclate 50 MG Oral Capsule Doxycycline Hyc late 50 MG Doxycycline Hyclate 50 MG 01/01/2020 12:00:00 AM EDT 1.0 {capsule} active Doxycycline Hyclate 50 MG eCW1 ([facility]) doxycycline hyclate 50 MG Oral Capsule Doxycycline Hyc late 50 MG Doxycycline Hyclate 50 MG 01/01/2020 12:00:00 AM EDT 1.0 {capsule} active Doxycycline Hyclate 50 MG eCW1 ([facility]) doxycycline hyclate 50 MG Oral Capsule Doxycycline Hyc late 50 MG Doxycycline Hyclate 50 MG 01/01/2020 12:00:00 AM EDT 1.0 {capsule} active Doxycycline Hyclate 50 MG eCW1 ([facility]) doxycycline hyclate 50 MG Oral Capsule Doxycycline Hyc late 50 MG Doxycycline Hyclate 50 MG 01/01/2020 12:00:00 AM EDT 1.0 {capsule} active Doxycycline Hyclate 50 MG eCW1 ([facility]) doxycycline hyclate 50 MG Oral Capsule Doxycycline Hyc late 50 MG Doxycycline Hyclate 50 MG 01/01/2020 12:00:00 AM EDT 1.0 {capsule} active Doxycycline Hyclate 50 MG eCW1 ([facility]) doxycycline hyclate 50 MG Oral Capsule Doxycycline Hyc late 50 MG Doxycycline Hyclate 50 MG 01/01/2020 12:00:00 AM EDT 1.0 {capsule} active Doxycycline Hyclate 50 MG eCW1 ([facility]) doxycycline hyclate 50 MG Oral Capsule Doxycycline Hyc late 50 MG Doxycycline Hyclate 50 MG 01/01/2020 12:00:00 AM EDT 1.0 {capsule} active Doxycycline Hyclate 50 MG eCW1 ([facility]) doxycycline hyclate 50 MG Oral Capsule Doxycycline Hyc late 50 MG Doxycycline Hyclate 50 MG 01/01/2020 12:00:00 AM EDT 1.0 {capsule} active Doxycycline Hyclate 50 MG eCW1 ([facility]) doxycycline hyclate 50 MG Oral Capsule Doxycycline Hyc late 50 MG Doxycycline Hyclate 50 MG 01/01/2020 12:00:00 AM EDT 1.0 {capsule} active Doxycycline Hyclate 50 MG eCW1 ([facility]) doxycycline hyclate 50 MG Oral Capsule Doxycycline Hyc late 50 MG Doxycycline Hyclate 50 MG 01/01/2020 12:00:00 AM EDT active 1 capsule eCW1 ([facility]) doxycycline hyclate 50 MG Oral Capsule Doxycycline Hyc late 50 MG Doxycycline Hyclate 50 MG 01/01/2020 12:00:00 AM EDT 1.0 {capsule} active Doxycycline Hyclate 50 MG eCW1 ([facility]) Metformin hydrochloride 500 MG Oral Tablet Metformin H Cl 500 MG Metformin HCl 500 MG 11/11/2019 12:00:00 AM EDT active 1 tablet with a meal eCW1 ([facility]) adapalene 1 MG/ML Topical Lotion [Differin] Differin 0.1 % D ifferin 0.1 % 10/14/2019 12:00:00 AM EST active 1 application in the evening eCW1 ([facility]) Clindamycin 10 MG/ML Topical Lotion [Cleocin-T] Cleocin-T 1 % Cleocin-T 1 % 10/14/2019 12:00:00 AM EST active 1 application eCW1 ([facility]) Clindamycin 10 MG/ML Topical Lotion [Cleocin-T] Cleocin-T 1 % Cleocin-T 1 % 10/14/2019 12:00:00 AM EST active 1 application eCW1 ([facility]) adapalene 1 MG/ML Topical Lotion [Differin] Differin 0.1 % D ifferin 0.1 % 10/14/2019 12:00:00 AM EST active 1 application in the evening eCW1 ([facility]) Metformin hydrochloride 500 MG Oral Tabl et metFORMIN HCl 500 MG Oral Tablet (GLUCOPHAGE) metFORMIN HCl 500 MG Oral Tablet (GLUCOPHAGE) 500 m g Oral aborted Take 500 mg by mouth Two times d aily with meals [facility] atorvastatin 20 MG Oral Tablet Atorvastatin Calcium 20 MG Oral Tablet (LIPITOR) Atorvastatin Calcium 20 MG Oral Tablet (LIPITOR) 20 mg Oral aborted Take 20 mg by mouth daily [facility] doxycycline hyclate 100 MG Oral Capsule Doxycycline Hyclate 100 MG Oral Capsule (VIBRAMYCIN) Doxycycline Hyclate 100 MG Oral Capsule (VIBRAMYCIN) 100 mg Oral aborted Take 100 mg by mouth daily For acne [facility] Insurance Providers Payer name Policy type / Coverage type Policy ID Covered green party ID Covered green party's relationship to awan Policy Awan Plan Information [facility] [id number] SP [id number] [facility] O [id number] S [id number] [facility] I [id number] Self [id number] MEDICAID [id number] MEDICAID [id number] S [id number] ANSI-Not a Secondary Insurance [id number] ANSI-Commercial [id number] ANSI-Medicaid [id number] ANSI-Medicaid [id number] ANSI-Not a Secondary Insurance [id number] ANSI-Commercial [id number] ANSI-Commercial [id number] ANSI-Not a Secondary Insurance [id number] ANSI-Medicaid [id number] ANSI-Commercial [id number] ANSI-Not a Secondary Insurance [id number] ANSI-Medicaid [id number] ANSI-Medicaid [id number] ANSI-Commercial [id number] ANSI-Not a Secondary Insurance [id number] ANSI-Not a Secondary Insurance [id number] ANSI-Medicaid [id number] ANSI-Commercial [id number] SELF PAY ONLY [id number] SP [id number] ANSI-Not a Secondary Insurance [id number] ANSI-Medicaid [id number] ANSI-Commercial [id number] ANSI-Not a Secondary Insurance [id number] ANSI-Medicaid [id number] ANSI-Commercial [id number] ANSI-Medicaid [id number] ANSI-Not a Secondary Insurance [id number] ANSI-Commercial [id number] RAYMOND [id number] SP [id number] ANSI-Medicaid [id number] ANSI-Commercial [id number] ANSI-Medicaid [id number] ANSI-Commercial [id number] ANSI-Commercial [id number] RAYMOND [id number] SP [id number] SELF PAY UNAVAILABLE SP UNAVAILA BLE Problems, Conditions, and Diagnoses Code Display Name Description Problem Type Effective Dates Data Source(s) G62.9 [id number] Peripheral polyneuropathy Problem 07/27/2020 12:00:00 AM EST eCW1 ([facility]) K70.31 [id number] Ascites due to alcoholic cirrhosis Pr oblem 07/27/2020 12:00:00 AM EST eCW1 ([facility]) E80.6 [id number] Hyperbilirubinemia Problem 06/09/2020 12:00: 00 AM EDT eCW1 ([facility]) [id number] Essential hypertension Essential hypertension Problem 05/19/2020 12:00:00 AM EDT DWAINE ([facility]) F10.230 Alcohol dependence with withdrawal, unco mplicated Alcohol dependence with withdrawal, uncomplicated Diagnosis 04/25/2020 03:14:56 AM EDT [facility] K70.10 Alcoholic hepatitis without ascites Alcoholic he patitis without ascites Diagnosis 04/25[facility]2020 [facility]' Diagnosis 04/25/2020 02:36:[address] [facility] obstructive liver obstructive liver Diagnosis 04/25/2020 02:36:00 AM [facility] Surgeries/Procedures Procedure Description Date Indications Data Source(s) POCT GLUCOSE, DOCKED POCT GLUCOSE, DOCKED Routine 05/11/2020 12:32 PM EDT 05/11/2020 12:32:00 PM [facility] POCT GLUCOSE, DOCKED POCT GLUCOSE, DOCKED Routine 05/11/2020 8:31 AM EDT 05/11/2020 08:31:00 AM [facility] PROTHROMBIN TIME PROTIME INR Routine 05/11/2020 4:26 AM EDT 05/11/2020 04:26:00 AM [facility] PHOSPHORUS INORGANIC PHOSPHORUS LEVEL Routine 05/11/2020 4:26 AM E DT 05/11/2020 04:26:00 AM [facility] MAGNESIUM MAGNESIUM LEVEL Routine 05/11/2020 4:26 AM EDT 05/11/2020 04:26:00 AM [facility] HEPATIC FUNCTION PANEL HEPATIC FUNCTION PANEL A Routine 05/11/2020 4:26 AM EDT 05/11/2020 04:26:00 AM EDT [facility] COVID-19 PCR COVID-19 PCR Routine 05/10/2020 10:03 PM EDT 05/10/2020 10:03:00 PM [facility] GLUCOSE QUANTITATIVE BLOOD XCPT REAGENT STRIP POCT GLUCOSE, DOC KED Routine 05/10/2020 9:46 PM EDT 05/10/2020 09:46:00 PM [facility] GLUCOSE QUANTITATIVE BLOOD XCPT REAGENT STRIP POCT GLUCOSE, DOC KED Routine 05/10/2020 4:53 PM EDT 05/10/2020 04:53:00 PM [facility] GLUCOSE QUANTITATIVE BLOOD XCPT REAGENT STRIP POCT GLUCOSE, DOC KED Routine 05/10/2020 12:15 PM EDT 05/10/2020 12:15:00 PM [facility] GLUCOSE QUANTITATIVE BLOOD XCPT REAGENT STRIP POCT GLUCOSE, IVANA TRIMBLE Routine 05/10/2020 8:17 AM EDT 05/10/2020 08:17:00 AM [facility] PROTHROMBIN TIME PROTIME INR Routine 05/10/2020 3:41 AM EDT 05/10/2020 03:41:00 AM [facility] PHOSPHORUS INORGANIC PHOSPHORUS LEVEL Routine 05/10/2020 3:41 AM E DT 05/10/2020 03:41:00 AM [facility] MAGNESIUM MAGNESIUM LEVEL Routine 05/10/2020 3:41 AM EDT 05/10/2020 03:41:00 AM [facility] HEPATIC FUNCTION PANEL HEPATIC FUNCTION PANEL A Routine 05/10/2020 3:41 AM EDT 05/10/2020 03:41:00 AM EDT [facility] GLUCOSE QUANTITATIVE BLOOD XCPT REAGENT STRIP POCT GLUCOSEIVANA Routine 05/09/2020 9:17 PM EDT 05/09/2020 09:17:00 PM [facility] GLUCOSE QUANTITATIVE BLOOD XCPT REAGENT STRIP POCT GLUCOSE, IVANA TRIMBLE Routine 05/09/2020 5:14 PM EDT 05/09/2020 05:14:00 PM [facility] BLOOD COUNT LEUKOCYTE WBC AUTOMATED WBC Routine 05/09/2020 2 :17 PM EDT 05/09/2020 02:17:00 PM [facility] XR CHEST FRONTAL ONLY [id number] XR CHEST FRONTAL ONLY [id number] Urgent 05/09/2020 2:05 PM EDT 05/09/2020 02:05:46 PM EDT [facility] URNLS DIP STICK/TABLET REAGENT AUTO MICROSCOPY URINAL YSIS WITH REFLEX URINE CULTURE Routine 05/09/2020 1:48 PM EDT 05/09/2020 01:48 :00 PM [facility] CULTURE BACTERIAL BLOOD AEROBIC W/ID ISOLATES BLOOD CULTURE R outine 05/09/2020 1:48 PM EDT 05/09/2020 01:48:00 PM EDT [facility] CULTURE BACTERIAL BLOOD AEROBIC W/ID ISOLATES BLOOD CULTURE R outine 05/09/2020 1:48 PM EDT 05/09/2020 01:48:00 PM EDT [facility] GLUCOSE QUANTITATIVE BLOOD XCPT REAGENT STRIP POCT GLUCOSE, DOC KED Routine 05/09/2020 12:22 PM EDT 05/09/2020 12:22:00 PM [facility] CORTISOL TOTAL CORTISOL Routine 05/09/2020 9:49 AM EDT 05/09/2020 09:49:00 AM [facility] GLUCOSE QUANTITATIVE BLOOD XCPT REAGENT STRIP POCT GLUCOSE, DOC KED Routine 05/09/2020 8:18 AM EDT 05/09/2020 08:18:00 AM [facility] PROTHROMBIN TIME PROTIME INR Routine 05/09/2020 4:33 AM EDT 05/09/2020 04:33:00 AM [facility] PHOSPHORUS INORGANIC PHOSPHORUS LEVEL Routine 05/09/2020 4:33 AM E DT 05/09/2020 04:33:00 AM [facility] MAGNESIUM MAGNESIUM LEVEL Routine 05/09/2020 4:33 AM EDT 05/09/2020 04:33:00 AM [facility] CORTISOL TOTAL CORTISOL Routine 05/09/2020 4:33 AM EDT 05/09/2020 04:33:00 AM [facility] HEPATIC FUNCTION PANEL HEPATIC FUNCTION PANEL A Routine 05/09/2020 4:33 AM EDT 05/09/2020 04:33:00 AM EDT [facility] GLUCOSE QUANTITATIVE BLOOD XCPT REAGENT STRIP POCT GLUCOSE, IVANA TRIMBLE Routine 05/08/2020 10:08 PM EDT 05/08/2020 10:08:00 PM [facility] GLUCOSE QUANTITATIVE BLOOD XCPT REAGENT STRIP POCT GLUCOSE, IVANA KED Routine 05/08/2020 4:56 PM EDT 05/08/2020 04:56:00 PM [facility] GLUCOSE QUANTITATIVE BLOOD XCPT REAGENT STRIP POCT GLUCOSE, DOC KED Routine 05/08/2020 12:39 PM EDT 05/08/2020 12:39:00 PM [facility] ACETONE/OTHER KETONE BODIES SERUM QUANTITATIVE BETAHYDROXYBUTYR ATE Routine 05/08/2020 10:29 AM EDT 05/08/2020 10:29:00 AM [facility] BLOOD COUNT COMPLETE AUTOMATED CBC Routine 05/08/2020 10:29 A M EDT 05/08/2020 10:29:00 AM [facility] BASIC METABOLIC PANEL CALCIUM TOTAL BASIC METABOLIC PANEL Routi ne 05/08/2020 10:29 AM EDT 05/08/2020 10:29:00 AM EDT U [facility] GLUCOSE QUANTITATIVE BLOOD XCPT REAGENT STRIP POCT GLUCOSE, DOC NAI Routine 05/08/2020 8:37 AM EDT 05/08/2020 08:37:00 AM [facility] PROTHROMBIN TIME PROTIME INR Routine 05/08/2020 5:20 AM EDT 05/08/2020 05:20:00 AM [facility] PHOSPHORUS INORGANIC PHOSPHORUS LEVEL Routine 05/08/2020 5:20 AM E DT 05/08/2020 05:20:00 AM [facility] MAGNESIUM MAGNESIUM LEVEL Routine 05/08/2020 5:20 AM EDT 05/08/2020 05:20:00 AM [facility] HEMOGLOBIN GLYCOSYLATED A1C HEMOGLOBIN A1C Routine 05/08/2020 5:20 AM EDT 05/08/2020 05:20:00 AM [facility] HEPATIC FUNCTION PANEL HEPATIC FUNCTION PANEL A Routine 05/08/2020 5:20 AM EDT 05/08/2020 05:20:00 AM EDT [facility] COVID-19 PCR COVID-19 PCR Routine 05/07/2020 10:39 PM EDT 05/07/2020 10:39:00 PM [facility] GLUCOSE QUANTITATIVE BLOOD XCPT REAGENT STRIP POCT GLUCOSE, DOC NAI Routine 05/07/2020 9:23 PM EDT 05/07/2020 09:23:[address] [facility] [address] ABDOEN & PELVIS W/CONTRAST MATERIAL CT ABDOMEN PELVIS WI TH CONTRAST [id number] Urgent 05/07/2020 9:11 PM EDT 05/07/2020 09:11:44 PM [facility] GLUCOSE QUANTITATIVE BLOOD XCPT REAGENT STRIP POCT GLUCOSE, DOC KEEdmundo Routine 05/07/2020 5:04 PM EDT 05/07/2020 05:04:00 PM [facility] HEPATOBILIARY SYST IMAGING INCLUDING GALLBLADDER NM H EPATOBILIARY IMAGING HIDA [id number] Routine 05/07/2020 12:39 PM EDT 05/07/2020 12:39 :40 PM [facility] GLUCOSE QUANTITATIVE BLOOD XCPT REAGENT STRIP POCT GLUCOSE, DOC NAI Routine 05/07/2020 12:08 PM EDT 05/07/2020 12:08:00 PM [facility] GLUCOSE QUANTITATIVE BLOOD XCPT REAGENT STRIP POCT GLUCOSE, DOC KEEdmundo Routine 05/07/2020 8:17 AM EDT 05/07/2020 08:17:00 AM [facility] GLUCOSE QUANTITATIVE BLOOD XCPT REAGENT STRIP POCT GLUCOSE, IVANA TRIMBLE Routine 05/07/2020 8:16 AM EDT 05/07/2020 08:16:00 AM [facility] BASIC METABOLIC PANEL CALCIUM TOTAL BASIC METABOLIC PANEL Routi ne 05/07/2020 7:57 AM EDT 05/07/2020 07:57:00 AM EDT [facility] PROTHROMBIN TIME PROTIME INR Routine 05/07/2020 4:24 AM EDT 05/07/2020 04:24:00 AM [facility] BLOOD COUNT COMPLETE AUTOMATED CBC Routine 05/07/2020 4:24 A M EDT 05/07/2020 04:24:00 AM [facility] PHOSPHORUS INORGANIC PHOSPHORUS LEVEL Routine 05/07/2020 4:24 AM E DT 05/07/2020 04:24:00 AM [facility] MAGNESIUM MAGNESIUM LEVEL Routine 05/07/2020 4:24 AM EDT 05/07/2020 04:24:00 AM [facility] HEPATIC FUNCTION PANEL HEPATIC FUNCTION PANEL A Routine 05/07/2020 4:24 AM EDT 05/07/2020 04:24:00 AM EDT [facility] GLUCOSE QUANTITATIVE BLOOD XCPT REAGENT STRIP POCT GLUCOSEIVANA Routine 05/06/2020 9:30 PM EDT 05/06/2020 09:30:00 PM [facility] GLUCOSE QUANTITATIVE BLOOD XCPT REAGENT STRIP POCT GLUCOSEIVANA Routine 05/06/2020 5:09 PM EDT 05/06/2020 05:09:[address] [facility] [address] HEAD/BRAIN W/O CONTRAST MATERIAL CT HEAD WITHOUT CONTRAST 70 450 Routine 05/06/2020 4:52 PM EDT 05/06/2020 04:52:18 PM [facility] GLUCOSE QUANTITATIVE BLOOD XCPT REAGENT STRIP POCT GLUCOSEIVANA Routine 05/06/2020 3:50 PM EDT 05/06/2020 03:50:00 PM [facility] ULTRASOUND ABDOMINAL REAL TIME W/IMAGE LIMITED US ABDOMEN L IMITED [id number] Routine 05/06/2020 3:19 PM EDT 05/06/2020 03:19:05 PM [facility] BLOOD COUNT COMPLETE AUTOMATED CBC Routine 05/06/2020 12:47 P M EDT 05/06/2020 12:47:00 PM [facility] GLUCOSE QUANTITATIVE BLOOD XCPT REAGENT STRIP POCT GLUCOSE, IVANA TRIMBLE Routine 05/06/2020 12:29 PM EDT 05/06/2020 12:29:00 PM [facility] GLUCOSE QUANTITATIVE BLOOD XCPT REAGENT STRIP POCT GLUCOSE, IVANA TRIMBLE Routine 05/06/2020 8:29 AM EDT 05/06/2020 08:29:00 AM [facility] PROTHROMBIN TIME PROTIME INR Routine 05/06/2020 4:42 AM EDT 05/06/2020 04:42:00 AM [facility] PHOSPHORUS INORGANIC PHOSPHORUS LEVEL Routine 05/06/2020 4:42 AM E DT 05/06/2020 04:42:00 AM [facility] MAGNESIUM MAGNESIUM LEVEL Routine 05/06/2020 4:42 AM EDT 05/06/2020 04:42:00 AM [facility] HEPATIC FUNCTION PANEL HEPATIC FUNCTION PANEL A Routine 05/06/2020 4:42 AM EDT 05/06/2020 04:42:00 AM EDT [facility] BASIC METABOLIC PANEL CALCIUM TOTAL BASIC METABOLIC PANEL Routi ne 05/06/2020 4:42 AM EDT 05/06/2020 04:42:00 AM EDT [facility] GLUCOSE QUANTITATIVE BLOOD XCPT REAGENT STRIP POCT GLUCOSE, IVANA TRIMBLE Routine 05/06/2020 4:32 AM EDT 05/06/2020 04:32:00 AM [facility] GLUCOSE QUANTITATIVE BLOOD XCPT REAGENT STRIP POCT GLUCOSE, IVANA TRIMBLE Routine 05/05/2020 9:00 PM EDT 05/05/2020 09:00:00 PM [facility] GLUCOSE QUANTITATIVE BLOOD XCPT REAGENT STRIP POCT GLUCOSE, IVANA TRIMBLE Routine 05/05/2020 8:10 PM EDT 05/05/2020 08:10:00 PM [facility] GLUCOSE QUANTITATIVE BLOOD XCPT REAGENT STRIP POCT GLUCOSE, IVANA TRIMBLE Routine 05/05/2020 6:40 PM EDT 05/05/2020 06:40:00 PM [facility] COVID-19 PCR [facility] COVID-19 PCR STAT 05/05/2020 6:19 PM EDT 05/05/2020 06:19:00 PM [facility] GLUCOSE QUANTITATIVE BLOOD XCPT REAGENT STRIP POCT GLUCOSE, IVANA TRIMBLE Routine 05/05/2020 5:30 PM EDT 05/05/2020 05:30:00 PM [facility] GLUCOSE QUANTITATIVE BLOOD XCPT REAGENT STRIP POCT GLUCOSE, IVANA TRIMBLE Routine 05/05/2020 5:03 PM EDT 05/05/2020 05:03:00 PM [facility] GLUCOSE QUANTITATIVE BLOOD XCPT REAGENT STRIP POCT GLUCOSE, IVANA TRIMBLE Routine 05/05/2020 5:01 PM EDT 05/05/2020 05:01:00 PM [facility] GLUCOSE QUANTITATIVE BLOOD XCPT REAGENT STRIP POCT GLUCOSE, IVAAN TRIMBLE Routine 05/05/2020 12:15 PM EDT 05/05/2020 12:15:00 PM [facility] PHOSPHORUS INORGANIC PHOSPHORUS LEVEL Routine 05/05/2020 8:51 AM E DT 05/05/2020 08:51:00 AM [facility] MAGNESIUM MAGNESIUM LEVEL Routine 05/05/2020 8:51 AM EDT 05/05/2020 08:51:00 AM [facility] COMPREHENSIVE METABOLIC PANEL COMPREHENSIVE METABOLIC PANEL Rou rodney 05/05/2020 8:51 AM EDT 05/05/2020 [facility] XCPT REAGENT STRIP POCT GLUCOSE, IVANA TRIMBLE Routine 05/05/2020 8:35 AM EDT 05/05/2020 08:35:00 AM [facility] GLUCOSE QUANTITATIVE BLOOD XCPT REAGENT STRIP POCT GLUCOSE, IVANA TRIMBLE Routine 05/05/2020 6:16 AM EDT 05/05/2020 06:16:00 AM [facility] PROTHROMBIN TIME PROTIME INR Routine 05/05/2020 4:52 AM EDT 05/05/2020 04:52:00 AM [facility] GLUCOSE QUANTITATIVE BLOOD XCPT REAGENT STRIP POCT GLUCOSE, IVANA TRIMBLE Routine 05/04/2020 11:28 PM EDT 05/04/2020 11:28:00 PM [facility] GLUCOSE QUANTITATIVE BLOOD XCPT REAGENT STRIP POCT GLUCOSE, IVANA TRIMBLE Routine 05/04/2020 10:00 PM EDT 05/04/2020 10:00:00 PM [facility] GLUCOSE QUANTITATIVE BLOOD XCPT REAGENT STRIP POCT GLUCOSE, IVANA TRIMBLE Routine 05/04/2020 9:23 PM EDT 05/04/2020 09:23:00 PM [facility] GLUCOSE QUANTITATIVE BLOOD XCPT REAGENT STRIP POCT GLUCOSE, DOC KED Routine 05/04/2020 9:09 PM EDT 05/04/2020 09:09:00 PM [facility] GLUCOSE QUANTITATIVE BLOOD XCPT REAGENT STRIP POCT GLUCOSE, DOC KED Routine 05/04/2020 8:59 PM EDT 05/04/2020 08:59:00 PM [facility] GLUCOSE QUANTITATIVE BLOOD XCPT REAGENT STRIP POCT GLUCOSE, DOC KED Routine 05/04/2020 4:49 PM EDT 05/04/2020 04:49:00 PM [facility] GLUCOSE QUANTITATIVE BLOOD XCPT REAGENT STRIP POCT GLUCOSE, DOC KED Routine 05/04/2020 12:27 PM EDT 05/04/2020 12:27:00 PM [facility] GLUCOSE QUANTITATIVE BLOOD XCPT REAGENT STRIP POCT GLUCOSE, DOC KED Routine 05/04/2020 8:01 AM EDT 05/04/2020 08:01:00 AM [facility] GLUCOSE QUANTITATIVE BLOOD XCPT REAGENT STRIP POCT GLUCOSE, DOC TOD Routine 05/04/2020 7:59 AM EDT 05/04/2020 07:59:00 AM [facility] PROTHROMBIN TIME PROTIME INR Routine 05/04/2020 6:14 AM EDT 05/04/2020 06:14:00 AM [facility] BILIRUBIN DIRECT BILIRUBIN, DIRECT Routine 05/04/2020 6:14 AM EDT 05/04/2020 06:14:00 AM [facility] COMPREHENSIVE METABOLIC PANEL COMPREHENSIVE METABOLIC PANEL Rou rodney 05/04/2020 6:14 AM EDT 05/04/2020 06:14:00 AM EDT [facility] GLUCOSE QUANTITATIVE BLOOD XCPT REAGENT STRIP POCT GLUCOSE, DOC KED Routine 05/03/2020 9:01 PM EDT 05/03/2020 09:01:00 PM [facility] GLUCOSE QUANTITATIVE BLOOD XCPT REAGENT STRIP POCT GLUCOSE, DOC KED Routine 05/03/2020 4:53 PM EDT 05/03/2020 04:53:00 PM [facility] US RETROPERITONEAL REAL TIME W/IMAGE COMPLETE US RENAL OR A JOSI COMPLETE [id number] Routine 05/03/2020 2:24 PM EDT 05/03/2020 02:24:32 PM [facility] GLUCOSE QUANTITATIVE BLOOD XCPT REAGENT STRIP POCT GLUCOSE, DOC KED Routine 05/03/2020 12:22 PM EDT 05/03/2020 12:22:00 PM [facility] GLUCOSE QUANTITATIVE BLOOD XCPT REAGENT STRIP POCT GLUCOSE, DOC KEEdmundo Routine 05/03/2020 10:20 AM EDT 05/03/2020 10:20:00 AM [facility] GLUCOSE QUANTITATIVE BLOOD XCPT REAGENT STRIP POCT GLUCOSE, IVANA KEEdmundo Routine 05/03/2020 8:51 AM EDT 05/03/2020 08:51:00 AM [facility] GLUCOSE QUANTITATIVE BLOOD XCPT REAGENT STRIP POCT GLUCOSE, IVANA KED Routine 05/03/2020 8:22 AM EDT 05/03/2020 08:22:00 AM [facility] PROTHROMBIN TIME PROTIME INR Routine 05/03/2020 3:53 AM EDT 05/03/2020 03:53:00 AM [facility] PHOSPHORUS INORGANIC PHOSPHORUS LEVEL Routine 05/03/2020 3:53 AM E DT 05/03/2020 03:53:00 AM [facility] BILIRUBIN DIRECT BILIRUBIN, DIRECT Routine 05/03/2020 3:53 AM EDT 05/03/2020 03:53:00 AM [facility] COMPREHENSIVE METABOLIC PANEL COMPREHENSIVE METABOLIC PANEL Rou rodney 05/03/2020 3:53 AM EDT 05/03/2020 03:53:00 AM [facility] GLUCOSE QUANTITATIVE BLOOD XCPT REAGENT STRIP POCT GLUCOSE, IVANA TRIMBLE Routine 05/02/2020 4:59 PM EDT 05/02/2020 04:59:00 PM [facility] URNLS DIP STICK/TABLET REAGENT AUTO MICROSCOPY URINAL YSIS WITH REFLEX URINE CULTURE Routine 05/02/2020 2:30 PM EDT 05/02/2020 02:30 :00 PM [facility] GLUCOSE QUANTITATIVE BLOOD XCPT REAGENT STRIP POCT GLUCOSE, DOC KED Routine 05/02/2020 12:28 PM EDT 05/02/2020 12:28:00 PM [facility] GLUCOSE QUANTITATIVE BLOOD XCPT REAGENT STRIP POCT GLUCOSE, IVANA TRIMBLE Routine 05/02/2020 8:23 AM EDT 05/02/2020 08:23:00 AM [facility] PROTHROMBIN TIME PROTIME INR Routine 05/02/2020 3:30 AM EDT 05/02/2020 03:30:00 AM [facility] PHOSPHORUS INORGANIC PHOSPHORUS LEVEL Routine 05/02/2020 3:30 AM E DT 05/02/2020 03:30:00 AM [facility] MAGNESIUM MAGNESIUM LEVEL Routine 05/02/2020 3:30 AM EDT 05/02/2020 03:30:00 AM [facility] BILIRUBIN DIRECT BILIRUBIN, DIRECT Routine 05/02/2020 3:30 AM EDT 05/02/2020 03:30:00 AM [facility] COMPREHENSIVE METABOLIC PANEL COMPREHENSIVE METABOLIC PANEL Rou rodney 05/02/2020 3:30 AM EDT 05/02/2020 03:30:00 AM EDT [facility] GLUCOSE QUANTITATIVE BLOOD XCPT REAGENT STRIP POCT GLUCOSE, IVANA TRIMBLE Routine 05/01/2020 9:15 PM EDT 05/01/2020 09:15:00 PM [facility] GLUCOSE QUANTITATIVE BLOOD XCPT REAGENT STRIP POCT GLUCOSE, IVANA TRIMBLE Routine 05/01/2020 5:18 PM EDT 05/01/2020 05:18:00 PM [facility] GLUCOSE QUANTITATIVE BLOOD XCPT REAGENT STRIP POCT GLUCOSE, IVANA TRIMBLE Routine 05/01/2020 12:16 PM EDT 05/01/2020 12:16:00 PM [facility] COMPREHENSIVE METABOLIC PANEL COMPREHENSIVE METABOLIC PANEL Rou rodney 05/01/2020 9:54 AM EDT 05/01/2020 [facility] XCPT REAGENT STRIP POCT GLUCOSE, IVANA TRIMBLE Routine 05/01/2020 8:20 AM EDT 05/01/2020 08:20:00 AM [facility] PROTHROMBIN TIME PROTIME INR Routine 05/01/2020 5:09 AM EDT 05/01/2020 05:09:00 AM [facility] PHOSPHORUS INORGANIC PHOSPHORUS LEVEL Routine 05/01/2020 5:09 AM E DT 05/01/2020 05:09:00 AM [facility] MAGNESIUM MAGNESIUM LEVEL Routine 05/01/2020 5:09 AM EDT 05/01/2020 05:09:00 AM [facility] GLUCOSE QUANTITATIVE BLOOD XCPT REAGENT STRIP POCT GLUCOSE, IVANA TRIMBLE Routine 04/30/2020 9:03 PM EDT 04/30/2020 09:03:00 PM [facility] GLUCOSE QUANTITATIVE BLOOD XCPT REAGENT STRIP POCT GLUCOSE, IVANA TRIMBLE Routine 04/30/2020 4:58 PM EDT 04/30/2020 04:58:00 PM [facility] MAGNESIUM MAGNESIUM LEVEL Routine 04/30/2020 3:45 PM EDT 04/30/2020 03:45:00 PM [facility] CALCIUM IONIZED CALCIUM, IONIZED Routine 04/30/2020 3:45 PM EDT 04/30/2020 03:45:00 PM [facility] GLUCOSE QUANTITATIVE BLOOD XCPT REAGENT STRIP POCT GLUCOSE, IVANA TRIMBLE Routine 04/30/2020 12:25 PM EDT 04/30/2020 12:25:00 PM [facility] GLUCOSE QUANTITATIVE BLOOD XCPT REAGENT STRIP POCT GLUCOSE, IVANA TRIMBLE Routine 04/30/2020 12:14 PM EDT 04/30/2020 12:14:00 PM [facility] GLUCOSE QUANTITATIVE BLOOD XCPT REAGENT STRIP POCT GLUCOSE, IVANA TRIMBLE Routine 04/30/2020 8:24 AM EDT 04/30/2020 08:24:00 AM [facility] PROTHROMBIN TIME PROTIME INR Routine 04/30/2020 5:59 AM EDT 04/30/2020 05:59:00 AM [facility] PHOSPHORUS INORGANIC PHOSPHORUS LEVEL Routine 04/30/2020 5:59 AM E DT 04/30/2020 05:59:00 AM [facility] MAGNESIUM MAGNESIUM LEVEL Timed 04/30/2020 5:59 AM EDT 04/30/2020 05:59:00 AM [facility] HEPATIC FUNCTION PANEL HEPATIC FUNCTION PANEL A Routine 04/30/2020 5:59 AM EDT 04/30/2020 05:59:00 AM [facility] BASIC METABOLIC PANEL CALCIUM TOTAL BASIC METABOLIC PANEL Timed 04/30/2020 5:59 AM EDT 04/30/2020 05:59:00 AM EDT [facility] MAGNESIUM MAGNESIUM LEVEL Timed 04/29/2020 5:46 PM EDT 04/29/2020 05:46:00 PM [facility] BASIC METABOLIC PANEL CALCIUM TOTAL BASIC METABOLIC PANEL Timed 04/29/2020 5:46 PM EDT 04/29/2020 05:46:00 PM [facility]T [facility] GLUCOSE QUANTITATIVE BLOOD XCPT REAGENT STRIP POCT GLUCOSEIVANA Routine 04/29/2020 4:53 PM EDT 04/29/2020 04:53:00 PM [facility] GLUCOSE QUANTITATIVE BLOOD XCPT REAGENT STRIP POCT GLUCOSE, IVANA TRIMBLE Routine 04/29/2020 12:09 PM EDT 04/29/2020 12:09:00 PM [facility] GLUCOSE QUANTITATIVE BLOOD XCPT REAGENT STRIP POCT GLUCOSE, IVANA TRIMBLE Routine 04/29/2020 8:22 AM EDT 04/29/2020 08:22:00 AM [facility] BLOOD COUNT COMPLETE AUTOMATED CBC AND DIFFERENTIAL Routine 04/29/2020 6:20 AM EDT 04/29/2020 06:20:00 AM EDT [facility] COMPREHENSIVE METABOLIC PANEL COMPREHENSIVE METABOLIC PANEL Rou rodney 04/29/2020 6:20 AM EDT 04/29/2020 06:20:00 AM [facility]T [facility] PROTHROMBIN TIME PROTIME INR Routine 04/29/2020 4:27 AM EDT 04/29/2020 04:27:00 AM [facility] MAGNESIUM MAGNESIUM LEVEL Timed 04/28/2020 10:33 PM EDT 04/28/2020 10:33:00 PM [facility] BASIC METABOLIC PANEL CALCIUM TOTAL BASIC METABOLIC PANEL Timed 04/28/2020 10:33 PM EDT 04/28/2020 10:33:00 PM [facility]T [facility] GLUCOSE QUANTITATIVE BLOOD XCPT REAGENT STRIP POCT GLUCOSE, IVANA TRIMBLE Routine 04/28/2020 8:52 PM EDT 04/28/2020 08:52:00 PM [facility] GLUCOSE QUANTITATIVE BLOOD XCPT REAGENT STRIP POCT GLUCOSE, IVANA TRIMBLE Routine 04/28/2020 5:16 PM EDT 04/28/2020 05:16:00 PM [facility] ULTRASOUND ABDOMINAL REAL TIME W/IMAGE LIMITED US ABDOMEN LIMIT ED [id number] Urgent 04/28/2020 1:19 PM EDT 04/28/2020 01:19:02 PM [facility] GLUCOSE QUANTITATIVE BLOOD XCPT REAGENT STRIP POCT GLUCOSE, IVANA TRIMBLE Routine 04/28/2020 12:35 PM EDT 04/28/2020 12:35:00 PM [facility] GLUCOSE QUANTITATIVE BLOOD XCPT REAGENT STRIP POCT GLUCOSE, IVANA ARIZAD Routine 04/28/2020 8:30 AM EDT 04/28/2020 08:30:00 AM [facility] BLOOD COUNT COMPLETE AUTOMATED CBC AND DIFFERENTIAL Timed 04/28/2020 8:13 AM EDT 04/28/2020 08:13:00 AM EDT [facility] MAGNESIUM MAGNESIUM LEVEL Timed 04/28/2020 8:13 AM EDT 04/28/2020 08:13:00 AM [facility] HEPATIC FUNCTION PANEL HEPATIC FUNCTION PANEL A Timed 04/28 8:13 AM EDT 04/28/2020 08:13:[address] [facility] BASIC METABOLIC PANEL CALCIUM TOTAL BASIC METABOLIC PANEL Timed 04/28/2020 8:13 AM EDT 04/28/2020 08:13:00 AM EDT [facility] GLUCOSE QUANTITATIVE BLOOD XCPT REAGENT STRIP POCT GLUCOSE, DOC KED Routine 04/28/2020 7:41 AM EDT 04/28/2020 07:41:00 AM [facility] PROTHROMBIN TIME PROTIME INR Routine 04/28/2020 5:07 AM EDT 04/28/2020 05:07:00 AM [facility] GLUCOSE QUANTITATIVE BLOOD XCPT REAGENT STRIP POCT GLUCOSE, DOC KED Routine 04/27/2020 9:09 PM EDT 04/27/2020 09:09:00 PM [facility] BLOOD COUNT COMPLETE AUTOMATED CBC AND DIFFERENTIAL Timed 04/27/2020 5:47 PM EDT 04/27/2020 05:47:00 PM EDT [facility] THYROID STIMULATING HORMONE TSH TSH Routine 04/27/2020 5:47 PM EDT 04/27/2020 05:47:00 PM [facility] MAGNESIUM MAGNESIUM LEVEL Timed 04/27/2020 5:47 PM EDT 04/27/2020 05:47:00 PM [facility] AMMONIA AMMONIA LEVEL Routine 04/27/2020 5:47 PM EDT 04/27/2020 05:47:00 PM [facility] HEPATIC FUNCTION PANEL HEPATIC FUNCTION PANEL A Timed 04/27 5:47 PM EDT 04/27/2020 05:47:[address] [facility] BASIC METABOLIC PANEL CALCIUM TOTAL BASIC METABOLIC PANEL Timed 04/27/2020 5:47 PM EDT 04/27/2020 05:47:00 PM EDT [facility] GLUCOSE QUANTITATIVE BLOOD XCPT REAGENT STRIP POCT GLUCOSE, DOC KED Routine 04/27/2020 4:51 PM EDT 04/27/2020 04:51:00 PM [facility] PICC ULTRASOUND - BEDSIDE PROCEDURE PICC ULTRASOUND - BEDSI DE PROCEDURE Routine 04/27/2020 2:07 PM EDT 04/27/2020 02:07:00 PM [facility] GLUCOSE QUANTITATIVE BLOOD XCPT REAGENT STRIP POCT GLUCOSE, DOC KED Routine 04/27/2020 12:14 PM EDT 04/27/2020 12:14:00 PM [facility] BLOOD COUNT COMPLETE AUTO&AUTO DIFRNTL WBC COUNT CBC AND DIFFER ENTIAL Timed 04/27/2020 8:26 AM EDT 04/27/2020 08:26:00 AM [facility] MAGNESIUM MAGNESIUM LEVEL Timed 04/27/2020 8:26 AM EDT 04/27/2020 08:26:00 AM [facility] HEPATIC FUNCTION PANEL HEPATIC FUNCTION PANEL A Timed 04/27 8:26 AM EDT 04/27/2020 08:26:00 AM [facility] BASIC METABOLIC PANEL CALCIUM TOTAL BASIC METABOLIC PANEL Timed 04/27/2020 8:26 AM EDT 04/27[facility]2020 [facility] XCPT REAGENT STRIP POCT GLUCOSE, IVANA TRIMBLE Routine 04/27/2020 8:15 AM EDT 04/27/2020 08:15:00 AM [facility] PROTHROMBIN TIME PROTIME INR Routine 04/27/2020 3:46 AM EDT 04/27/2020 03:46:00 AM [facility] GLUCOSE QUANTITATIVE BLOOD XCPT REAGENT STRIP POCT GLUCOSE, IVNAA TRIMBLE Routine 04/26/2020 9:49 PM EDT 04/26/2020 09:49:00 PM [facility] LACTATE LACTIC ACID LEVEL, PLASMA Routine 04/26/2020 8:18 PM EDT 04/26/2020 08:18:00 PM [facility] GLUCOSE QUANTITATIVE BLOOD XCPT REAGENT STRIP POCT GLUCOSE, DOC NAI Routine 04/26/2020 4:54 PM EDT 04/26/2020 04:54:00 PM [facility] BLOOD COUNT COMPLETE AUTOMATED CBC AND DIFFERENTIAL Timed 04/26/2020 3:52 PM EDT 04/26[facility]2020 [facility] MAGNESIUM LEVEL Timed 04/26/2020 3:52 PM EDT 04/26/2020 03:52:00 PM [facility] LACTATE LACTIC ACID LEVEL, PLASMA Routine 04/26/2020 3:52 PM EDT 04/26/2020 03:52:00 PM [facility] HEPATIC FUNCTION PANEL HEPATIC FUNCTION PANEL A Timed 04/26 3:52 PM EDT 04/26/2020 03:52:[address] [facility] BASIC METABOLIC PANEL CALCIUM TOTAL BASIC METABOLIC PANEL Timed 04/26/2020 3:52 PM EDT 04/26/2020 03:52:00 PM EDT [facility] GLUCOSE QUANTITATIVE BLOOD XCPT REAGENT STRIP POCT GLUCOSE, DOC KED Routine 04/26/2020 12:24 PM EDT 04/26/2020 12:24:00 PM [facility] PROTHROMBIN TIME PROTIME INR Routine 04/26/2020 10:45 AM EDT 04/26/2020 10:45:00 AM [facility] LACTATE LACTIC ACID LEVEL, PLASMA Routine 04/26/2020 10:45 AM EDT 04/26/2020 10:45:00 AM [facility] AMMONIA AMMONIA LEVEL Routine 04/26/2020 10:45 AM EDT 04/26/2020 10:45:00 AM [facility] URNLS DIP STICK/TABLET REAGENT AUTO MICROSCOPY URINALYSIS W ITH MICROSCOPIC Routine 04/26/2020 9:16 AM EDT 04/26/2020 09:16:00 AM [facility] SODIUM URINE SODIUM, URINE, RANDOM Routine 04/26/2020 9:12 AM EDT 04/26/2020 09:12:00 AM [facility] POTASSIUM URINE POTASSIUM, URINE, RANDOM Routine 04/26/2020 9:12 A M EDT 04/26/2020 09:12:00 AM [facility] OSMOLALITY URINE OSMOLALITY, URINE Routine 04/26/2020 9:12 AM EDT 04/26/2020 09:12:00 AM [facility] GLUCOSE QUANTITATIVE BLOOD XCPT REAGENT STRIP POCT GLUCOSE, DOC KED Routine 04/26/2020 8:34 AM EDT 04/26/2020 08:34:00 AM [facility] BASIC METABOLIC PANEL CALCIUM TOTAL BASIC METABOLIC PANEL Timed 04/26/2020 7:46 AM EDT 04/26/2020 07:46:00 AM EDT [facility] BLOOD COUNT COMPLETE AUTO&AUTO DIFRNTL WBC COUNT CBC AND DIFFER ENTIAL Timed 04/26/2020 7:46 AM EDT 04/26/2020 07:46:00 AM [facility] MAGNESIUM MAGNESIUM LEVEL Timed 04/26/2020 7:46 AM EDT 04/26/2020 07:46:00 AM [facility] HEPATIC FUNCTION PANEL HEPATIC FUNCTION PANEL A Timed 04/26 7:46 AM EDT [facility]/26[facility]2020 [facility]LO[facility] XCPT REAGENT STRIP POCT GLUCOSE, DOC TOD Routine 04/25/2020 8:47 PM EDT 04/25/2020 08:47:00 PM [facility] BLOOD COUNT COMPLETE AUTO&AUTO DIFRNTL WBC COUNT CBC AND DIFFER ENTIAL Timed 04/25/2020 5:43 PM EDT 04/25/2020 05:43:00 PM [facility] MAGNESIUM MAGNESIUM LEVEL Timed 04/25/2020 5:29 PM EDT 04/25/2020 05:29:00 PM [facility] LACTATE LACTIC ACID LEVEL, PLASMA Routine 04/25/2020 5:29 PM EDT 04/25/2020 05:29:00 PM [facility] HEPATIC FUNCTION PANEL HEPATIC FUNCTION PANEL A Timed 04/25 5:29 PM EDT 04/25/2020 [facility]IC METABOLIC PANEL CALCIUM TOTAL BASIC METABOLIC PANEL Timed 04/25/2020 5:29 PM EDT 04/25/2020 05:29:00 PM EDT [facility] GLUCOSE QUANTITATIVE BLOOD XCPT REAGENT STRIP POCT GLUCOSE, DOC NAI Routine 04/25/2020 5:08 PM EDT 04/25/2020 05:08:00 PM [facility] GLUCOSE QUANTITATIVE BLOOD XCPT REAGENT STRIP POCT GLUCOSE, DOC KED Routine 04/25/2020 12:05 PM EDT 04/25/2020 12:05:00 PM [facility] EKG 12-LEAD - CMAXX REPORT EKG 12-LEAD - CMAXX REPORT 04/25/2020 10:33 AM EDT 04/25/2020 10:33:52 AM EDT [facility] EKG 12-LEAD - CMAXX REPORT EKG 12-LEAD - CMAXX REPORT 04/25/2020 10:33 AM EDT 04/25/2020 10:33:52 AM EDT [facility] EKG 12-LEAD - CMAXX REPORT EKG 12-LEAD - CMAXX REPORT 04/25/2020 10:30 AM EDT 04/25/2020 10:30:40 AM EDT [facility] EKG 12-LEAD EKG 12-LEAD STAT 04/25/2020 10:30 AM EDT 04/25/2020 10:30:40 AM [facility] CULTURE BACTERIAL BLOOD AEROBIC W/ID ISOLATES BLOOD CULTURE S TAT 04/25/2020 9:59 AM EDT 04/25/2020 09:59:00 AM EDT [facility] GLUTAMYLTRASE GAMMA GAMMA GT Routine 04/25/2020 9:59 AM EDT 04/25/2020 09:59:00 AM [facility] GLUCOSE QUANTITATIVE BLOOD XCPT REAGENT STRIP POCT GLUCOSE, DOC KED Routine 04/25/2020 8:11 AM EDT 04/25/2020 08:11:00 AM [facility] THROMBOPLASTIN TIME PARTIAL PLASMA/WHOLE BLOOD PARTIA L THROMBOPLASTIN TIME (PTT) Routine 04/25/2020 6:06 AM EDT 04/25/2020 06:06 :00 AM [facility] ACUTE HEPATITIS PANEL HEPATITIS PANEL, ACUTE Routine 04/25/2020 6:06 AM EDT 04/25/2020 06:06:00 AM [facility] FIBRINOGEN ACTIVITY FIBRINOGEN LEVEL Routine 04/25/2020 6:06 AM ED T 04/25/2020 06:06:00 AM [facility] FIBRIN DGRADJ PRODUCTS D-DIMER QUAL/SEMIQUAN D-DIMER, QUANTITAT LESLIE Routine 04/25/2020 6:06 AM EDT 04/25/2020 06:06:[address] [facility] [address] ABDOEN & PELVIS W/CONTRAST MATERIAL CT ABDOMEN PELVIS WI TH CONTRAST [id number] STAT 04/25/2020 5:54 AM EDT 04/25/2020 05:54:51 AM [facility] XR CHEST FRONTAL ONLY [id number] XR CHEST FRONTAL ONLY [id number] Routine 04/25/2020 5:48 AM EDT 04/25/2020 05:48:59 AM EDT [facility] COVID-19 PCR COVID-19 PCR Routine 04/25/2020 3:59 AM EDT 04/25/2020 03:59:00 AM [facility] URNLS DIP STICK/TABLET REAGENT AUTO MICROSCOPY URINAL YSIS WITH REFLEX URINE CULTURE Routine 04/25/2020 3:59 AM EDT 04/25/2020 03:59 :00 AM [facility] IRON TOTAL FE BINDING CAPACITY Routine 04/25/2020 3:59 AM EDT 04/25/2020 03:59:00 AM [facility] CULTURE BACTERIAL BLOOD AEROBIC W/ID ISOLATES BLOOD CULTURE S TAT 04/25/2020 3:59 AM EDT 04/25/2020 03:59:00 AM EDT [facility] CULTURE BACTERIAL BLOOD AEROBIC W/ID ISOLATES BLOOD CULTURE S TAT 04/25/2020 3:59 AM EDT 04/25/2020 03:59:00 AM EDT [facility] PROTHROMBIN TIME PROTIME INR Routine 04/25/2020 3:59 AM EDT 04/25/2020 03:59:00 AM [facility] BLOOD COUNT COMPLETE AUTOMATED CBC AND DIFFERENTIAL Routine 04/25/2020 3:59 AM EDT 04/25/2020 03:59:00 AM EDT [facility] TROPONIN QUANTITATIVE TROPONIN T Routine 04/25/2020 3:59 AM EDT 04/25/2020 03:59:00 AM [facility] PHOSPHORUS INORGANIC PHOSPHORUS LEVEL Routine 04/25/2020 3:59 AM E DT 04/25/2020 03:59:00 AM [facility] MAGNESIUM MAGNESIUM LEVEL Routine 04/25/2020 3:59 AM EDT 04/25/2020 03:59:00 AM [facility] LIPASE LIPASE LEVEL Routine 04/25/2020 3:59 AM EDT 04/25/2020 03:59:00 AM [facility] LACTATE LACTIC ACID LEVEL, PLASMA Routine 04/25/2020 3:59 AM EDT 04/25/2020 03:59:00 AM [facility] FOLIC ACID SERUM FOLATE Routine 04/25/2020 3:59 AM EDT 04/25/2020 03:59:00 AM [facility] FERRITIN FERRITIN LEVEL Routine 04/25/2020 3:59 AM EDT 04/25/2020 03:59:00 AM [facility] CYANOCOBALAMIN VITAMIN B-12 VITAMIN B12 Routine 04/25/2020 3:59 AM EDT 04/25/2020 03:59:00 AM [facility] COMPREHENSIVE METABOLIC PANEL COMPREHENSIVE METABOLIC PANEL Rou rodney 04/25/2020 3:59 AM EDT 04/25/2020 03:59:00 AM EDT [facility] Virtual Brief Check In by an MD/QHP 11/11/2019 12:00:0 0 AM EDT [email or web address] ([facility]) URINE-NO MICRO 10/14/2019 12:00:00 AM EST eCW1 ([facility]) Results ID Date Data Source [id number] 09/08/2020 12:00:00 AM EST [facility] Name Value Range Interpretation Code Description Data Beronica rce(s) Supporting Document(s) SARS-CoV2 Rapid Antigen [facility] This lab was ordered by [facility] and reported by [facility]. ID Date Data Source [id number] 07/20/2020 02:30:00 PM EST [facility] ([facility], ) Name Value Range Interpretation Code Description Data Beronica rce(s) Supporting Document(s) Alt/SGPT 13 U/L 12-78 Normal (applies to non-numeric resul ts) [facility] ([facility], ) Ast/Sgot 29 U/L 7-37 Normal (applies to non-numeric resul ts) [facility], ) Bilirubin,Direct 1.7 mg/dL 0.0-0.2 Above high normal M [facility] ([facility], ) Bilirubin,Total 3.3 mg/dL 0.2-1.0 Above high normal [facility] ([facility]) Alkaline Phosphatase 101 U/L 45-117 Normal (applies to non-num lev results) [facility] ([facility], ) Total Protein 6.8 GM/DL 6.4-8.2 Normal (applies to non-numeric re sults) [facility] ([facility], ) Albumin/Globulin Ratio 0.7 Normal (applies to non-n umeric results) [facility] ([facility]) Albumin 2.9 GM/DL 3.2-5.2 Below low normal [facility] ( [facility]) ID Date Data Source [id number] 07/08/2020 03:02:09 PM EST [facility] Name Value Range Interpretation Code Description Data Beronica rce(s) Supporting Document(s) Progress Note [facility] DMYIKl9qSpDOZvXo02/QPZuuPJWxi4LeTCzbITm6VAlxVFSeZ1ImTHX4fI6kHXS5FOgYRvMsZyZbZMA0 lbm [file] bX8BXbAd9tFPSMab5vfj80yYKlhBUJSCsSbNfEv9iHVFYBiKgsmTAj6Bqm5khb1TsHh4/Juan Miguel/hpAZ6bq [file] 0lT60E2iZetBmOKU3O30KsgmrK86N7Sf48Lgh5sxGCSO5zNrP/vp clinical research/6az04/s84k5KpjVk3LzhAjwufSv ZOMUoKVHQkf5g9iRGoP172fxG4J5cq2quInZKen4z5j2LpoiHDevU3TBG5p/NohlGMnIWNtK4chNmgfU iBpOxcaj9YJT+9VcYnTiJjdJIrf53W0n+V+ZLGN9ry AtQ2f7iiidqh/314dP/m0QEx1mAZA5YI+CZquM/LJVLXShYnjZnEK7mIvjdEKRcHmeon38q3U703LeeO msZY+qhlT9pR/UKDryOBE3aNYeB8YVfGoR6w4nh9wNe9iRN2rKz7aCxDtMWR+dXbCIuE8NjJMC8o5qYf zUA5vP3O4a5X5KndemkXMZI077hGZrhfcHe2bGUOjg adbwGZ7AnLCRAoYYsVL6GXfmVe8dOwcLip0nqVGkU09CfaXrj3NgbV1JjOj691w1A+oL9512zFhyU3eQ +1mDGnl3UQxUT6JzdeNcQeRPrZxcmoScXhhFh+osmXxk32zBQBfwRZDK5EOVHNdvcFRdFtEIM0qD44Bm bZQ/p2eeH4lBXx7LaRW389qAI1A+rp8l0Xymfm/2xe ps6QEg0S2tgfdWKgqhhVjOdtk+erc11GcH3A4fgwXrnpyPqaciWF4F4e7N8M8SP3w/Ray/kpb9vFlisy s[facility]+lR3v+I8X2PhFiv/lWNnSrDRLXAg2GZFNIqX9ng4Jq4/L9f5zwzEkuzJXCK0EFkhvBNIcysCF [file] C/r0Si8JAS/UdhUN9JeUgmOmasyy2Km3+Luis Miguel/Nei3 [file] DgAaGVHAYoEtHB1FYGt= ID Date Data Source [facility] L[facility] US 06/18/2020 11:15:08 AM EDT eCW1 ([facility]) Name Value Range Interpretation Code Description Data Beronica rce(s) Supporting Document(s) LRY LIVER US eCW1 (Count includes the [facility]) ID Date Data Source [id number] 06/16/2020 12:04:00 PM EDT [facility] ([facility]) Name Value Range Interpretation Code Description Data Beronica rce(s) Supporting Document(s) Ast/Sgot 53 U/L 7-37 Above high normal [facility] ([facility]) Bilirubin,Total 2.7 mg/dL 0.2-1.0 Above high normal [facility] ([facility]) Alkaline Phosphatase 103 U/L 45-117 Normal (applies to non-num lev results) [facility] ([facility]) Alt/SGPT 34 U/L 12-78 Normal (applies to non-numeric resul ts) [facility] ([facility]) Total Protein 7.3 GM/DL 6.4-8.2 Normal (applies to non-numeric re sults) [facility] ([facility]) Albumin 2.5 GM/DL 3.2-5.2 Below low normal [facility] ( [facility]) Bilirubin,Direct 2.1 mg/dL 0.0-0.2 Above high normal M [facility] ([facility]) Albumin/Globulin Ratio 0.5 Normal (applies to non-n umeric results) [facility] ([facility]) ID Date Data Source [id number] 05/27/2020 01:05:00 PM EDT [facility] ([facility]) Name Value Range Interpretation Code Description Data Beronica rce(s) Supporting Document(s) Cobalamin (Vitamin B12) [Mass/volume] in Serum or Plasma 1680 pg /mL 247-911 Above high normal [facility] ([facility]) VITAMIN B12 NORMAL RANGE NORMAL 247 - 911 PG/ML INDETERMINATE 211 - 246 PG/ML DEFICIENT LESS THAN 211 PG/ML ID Date Data Source [id number] 05/27/2020 01:05:00 PM EDT [facility] ([facility]) Name Value Range Interpretation Code Description Data Beronica rce(s) Supporting Document(s) Blood Urea Nitrogen 4 mg/dL 7-18 Below low normal [facility] ([facility]) Creatinine For GFR 0.75 mg/dL 0.70-1.30 Normal (applies to non -numeric results) [facility] ([facility]) Glucose, Fasting 78 mg/dL 70-100 Normal (applies to non-numeric results) [facility] ([facility]) Glomerular Filtration Rate Laboratory test result Normal (applies to non- numeric results) [facility] ([facility]) <content>Units are mL/min/1.73 m2</content>
<content></content>
<content>Chronic Kidney Disease Staging per NKF:</content>
<content></content>
<content>Stage I & II GFR >=60 Normal to Mildly Decreased</content>
<content>Stage III GFR 30- 59 Moderately Decreased</content>
<content>Stage IV GFR 15-29 Severely Decreased</content>
<content>Stage V GFR <15 Very Little GFR Left</content>
<content>ESRD GFR <15 on INSTRUCTIONAL TECHNOLOGIST</content>
<content></content> Sodium Level 140 meq/L 136-145 Normal (applies to non-numeric res ults) [facility] ([facility]) Potassium Serum 3.6 meq/L 3.5-5.1 Normal (applies to non-numeric results) [facility] ([facility]) Carbon Dioxide Level 25 meq/L 21-32 Normal (applies to non-num lev results) [facility] ([facility]) Anion Gap 7 meq/L 8-16 Below low normal [facility] ( [facility]) Chloride Level 108 meq/L 98-107 Above high normal [facility] ([facility]) Ast/Sgot 93 U/L 7-37 Above high [facility] Calcium Level 8.5 mg/dL 8.5-10.1 Normal (applies to non-numeric re sults) [facility] ([facility]) Alt/SGPT 43 U/L 12-78 Normal (applies to non-numeric resul ts) [facility] ([facility]) Bilirubin,Total 3.9 mg/dL 0.2-1.0 Above high normal [facility] ([facility]) Alkaline Phosphatase 131 U/L 45-117 Above high normal [facility] Total Protein 7.1 GM/DL 6.4-8.2 Normal (applies to non-numeric re sults) [facility] ([facility]) Albumin/Globulin Ratio 0.4 Normal (applies to non-n umeric results) [facility] ([facility]) Albumin 2.1 GM/DL 3.2-5.2 Below low normal [facility] ID Date Data Source [id number] 05/27/2020 01:05:00 PM EDT [facility] ([facility]) Name Value Range Interpretation Code Description Data Beronica rce(s) Supporting Document(s) aPTT in Platelet poor plasma by Coagulation assay 54.2 s 24.2-38.5 Above high normal [facility] ([facility]) ID Date Data Source [id number] 05/27/2020 01:05:00 PM EDT [facility] ([facility]) Name Value Range Interpretation Code Description Data Beronica rce(s) Supporting Document(s) Prothrombin Time 19.8 s 12.5-14.3 Above high normal [facility] Inr 1.65 Normal (applies to non-numeric resul ts) [facility] ([facility]) THERAPUTIC HUMAN INR VALUES INDICATIONS NORMAL RANGES PROPHYLAXIS/TREATMENT OF: VENOUS THROMBOSIS 2.0-3.0 PULMONARY EMBOLISM 2.0-3.0 PREVENTION OF SYSTEMIC EMBOLISM FROM: TISSUE HEART VALVES 2.0-3.0 ACUTE MYOCARDIAL INFARCTION 2.0-3.0 VALVULAR HEART DISEASE 2.0-3.0 ATRIAL FIBRILLATION 2.0-3.0 MECHANICAL VALVES(HIGH RISK) 2.5-3.5 RECURRENT MYOCARDIAL INFARCTION 2.5-3.5 ID Date Data Source [id number] 05/27/2020 01:05:00 PM EDT [facility] ([facility]) Name Value Range Interpretation Code Description Data Beronica rce(s) Supporting Document(s) White Blood Count 3.8 10 4.0-10.0 Below low normal [facility] ([facility], ) Red Blood Count 3.51 10 4.30-6.10 Below low normal [facility] ([facility]) Hemoglobin 12.1 g/dL 13.5-17.5 Below low normal [facility] ( [facility]) Hematocrit 35.7 % 42.0-52.0 Below low normal [facility] ( [facility]) Mean Corpuscular Volume 101.7 fl 80.0-96.0 Above high normal [facility] ([facility]) Mean Corpuscular Hemoglobin 34.5 pg 27.0-33.0 Above high normal [facility] ([facility]) Red Cell Distribution Width 13.2 % 11.5-14.5 Norm al (applies to non-numeric results) [facility] ([facility]) Platelet Count, Automated 181 10 150-450 Normal (applies to non-numeric results) [facility] ([facility]) Mean Corpuscular HGB Conc 33.9 g/dL 32.0-36.5 Normal (applies to non-numeric results) [facility]) Lymph % 40.3 % 24.0-44.0 Normal (applies to non-numeric resul ts) [facility]) Neutrophils % 45.5 % 36.0-66.0 Normal (applies to non-numeric re sults) [facility]) Eos % 1.3 % 0.0-3.0 Normal (applies to non-numeric resul ts) [facility]) [place] % 11.8 % 0.0-5.0 Above high normal [facility] ([facility], ) Nucleated Red Blood Cell % 0.0 % 0-0 Normal (applies to n on-numeric results) [facility] ([facility], ) Baso % 0.8 % 0.0-1.0 Normal (applies to non-numeric resul ts) [facility] ([facility]) Immature Granulocyte % 0.3 % 0-3.0 Normal (applies to non-n umeric results) [facility] ([facility]) Neutrophils # 1.7 10 1.5-8.5 Normal (applies to non-numeric re sults) [facility] ([facility]) [place] # 0.5 10 0.0-0.8 Normal (applies to non-numeric resul ts) [facility] ([facility]) Lymph # 1.5 10 1.5-5.0 Normal (applies to non-numeric resul ts) [facility] ([facility]) Baso # 0.0 10 0.0-0.2 Normal (applies to non-numeric resul ts) [facility] ([facility]) Eos # 0.1 10 0.0-0.5 Normal (applies to non-numeric resul ts) [facility] ([facility]) ID Date Data Source [id number] 05/12/2020 03:46:39 PM EDT [facility] Name Value Range Interpretation Code Description Data Beronica rce(s) Supporting Document(s) Consultation [facility] ESFRPu2qSxWVKjUo09/SQXnhFOKqp6NiVTwsYCi7YBviRCXdG1OsWMK5lS3lBXZ7UBgCOwKiQqCgACUs lbm [file] AgICAgICAgICAgICAgICAgICAgICAgICAgICAgICAg UGUuRYCoDNXpBZMkHOKeCK7HLXOyQFUjPMHhYSVuDHSyWVQfVJNyXEQgBZGuTSJuIZEnZPKeCTJyYSGj FPMzEQZyYJKzGHGwCXElGURoPCHaPIPsUIEqCSPsYUFxNIWmVKXvNMArKSOxBWVfUANiYZYxIYRlJU5H ICAgICAgICAgICAgICAgICAgICAgICAgICAgICAgIC AgICAgICAgICAgICAgICAgICAgICAgICAgICAgICAgICAgICAgICAgICAgICAgICAgICAgICAgICAgIC JbXHVwXWLnXR0PATWoPZLoAGYfFAFgKCLqSILvQNJzEIMpLMLxIUOyNCQvZLRtFZVqYYKzLHXcQXFcZV AgICAgICAgICAgICAgICAgICAgICAgICAgICAgICAg PUTrFSPrAFSnBFWtHLAtWEIeCU8DEFCfPGZtETMmESDzJRWyYCAtGNUiQWScUWHeEZQuYWGvEBDjQUMb ICAgICAgICAgICAgICAgICAgICAgICAgICAgICAgICAgICAgICAgICAgICAgICAgICAgICAgICAgICAg RD5DLILpLSHkWZBcHNJnBUOzUJLySXLiJNTzGODgRZ AgICAgICAgICAgICAgICAgICAgICAgICAgICAgICAgICAgICAgICAgICAgICAgICAgICAgICAgICAgIC MeAIFwQMZsXUVrUY9LTKQpJPOlAZAzFXXlEVZkISRxFMPpNRTsOHOjKBUyRFPlRGKtKYOuALBkUWWnZK AgICAgICAgICAgICAgICAgICAgICAgICAgICAgICAg ILZzLVTxDGYpXRDxUKWkHFJaMXWfTE3ACPErHHPhMNVoQBJnKKRnYJRqZJRwXSLdKZDpINQyVEXcAYRl ICAgICAgICAgICAgICAgICAgICAgICAgICAgICAgICAgICAgICAgICAgICAgICAgICAgICAgICAgICAg NRVtRB4ZBZOaWLSqPCZyXSJxZKUhMNKuEKEeGMNfWN AgICAgICAgICAgICAgICAgICAgICAgICAgICAgICAgICAgICAgICAgICAgICAgICAgICAgICAgICAgIC MzMUHgYAGiVSFoAZYkRR9EAVXpBBWaEXZaEKJyRFYkMMLaYEApLVKtMOJoTVMqYVNcIEZrLZFoJGMdCT AgICAgICAgICAgICAgICAgICAgICAgICAgICAgICAg EVQcOAAcYXIbENKwGIBfBAKgRTZtADSsGV5JAM72eBIgd0T8HRQpXX9zcnj/Jq7UUAigkaEzrARgNU0V EgPdWI4buf1EBmJnWG6ifm1IKAbYVnWxH4O8qDHmVJPvFLBAOcIpY17rINftNd49WTctDHOcHvXdSRy7 Rf4GVkLbG6aoVXUxMlQ5FOZaWqN5WSJnEoU6HMIbLo DxSPRhKWDvMPQhPIBIPUD1FPQmZsOaHgAkRKPhHJkpCZWWYP6ERtVxR3RlnD08EMlNBz2+DQplbmRvYm hPYfB4BHQel2ZyENy6KY7QXZKpTpkrt9OeYLUkMIAYKFzlTM6YXVS1AWUeTGYfYy2LFSVsL579wmMgTY 2INn3XYbIfWE3xda0LFGVfBMDvAuaVKhy4KLxpMZ2R nBZsYYhXz21odAd5jcIbzJKHHXfjoIGYaJ8bKSgqDBEdJMUtGN4nBS3nKSFzFTIlFiN6ZMBRYG2RVJNf OUMzyXFvELKgXLULFS3USLjnFYV0KNXrmkEqtUEmFWewHS5BPEIgzpUoKgxkURLBKEt+Ci2BKQ3ye9Uu RVs0OPUuUI1tog6WUSgUWsOrL7B0rYBiZ4K5JVusYp 2WZNHbDKKhNzmvOBAHWScsIR8ARR6qekQ5OQ7KmOBwEPHiQAEobDUzSEi7L32zvWYuLIilCL7JCYM+Pi A+Yt7KGOCnECPhWGNvDqCrVKRIObBrH6NhL0IQk5PqS3CzNK86uFjciiSxJYdrTA4AGL7aOYLfHRNDGE 9CmMAnbO4ctiIqOGEyDMDFKxKoE83cuFIzHJLeEMI6 UZUiFm6FZKLfG4KogoLbaPmnbhPhJKIeWHXVBM3JTYyjrfMvcFBevPheFW21wDgoGV3TLd0DFxYvSH3v ul0LtOGaJc6XMLS8Qu1ZWRVyAWYbOMCcQPO5FHYvTcBsFVjpFCUpIAFtEUW9KDTnLTTuJP9KRhWvFTZc GNk8LioqGOLtOWYjbl2UPTEoCID7STD0VMYsZSIyCP KpPVnfIUVrJBClKOY6UXHiLWPfUK0WEaEhYDIjBXY8PRBrTOGvJKLtmb4LHREmFAIbVlz6FWIzZWPkOE BwNPmzXLSzBKD8DyS7IBTwCDNeBG2ZVuIyWWPaIVE7MmWyOVViURRxnn9ALGVqOFLjWXz4NZUzAKIgIU PqQWbjLPCgCURnAnIlFJUvZZRxSD3QXjYeWGBwBRKg TbGsFVMtVATzxq3YTXQsKFRdYoEpFYMaTZBaTISpFUhkQENpECV4AXDiIUKeLPItZH4FPjGbMDOnFMzi FzEaSTMuVJVhkq3VOLSfXNRyLpDuNDKuYDEtRHLeYWvnDUYxCFHoUAN9OFRsGSQoKL0PDcDjPRHyMxM6 HVgkXMWfDZBofr3WFUPmPEDjJhu1IrIvCWEeWBByJD syFSGbDNNzRJW1JVBaQSXtDY7LXlAoUGRdLzXzRaOlNFWbHWLccs0HVFZfNOAoNpQdIWPoXJVxYESsZA iiYCYbVLYoRfA0PVDkICNoSP4CDrDjZATdQdO3IQAiALCmCWQpei5LXRDeHLLoGDL4OQWbQUTfSGQbGQ ssRIAqMVY1ZyqtJDCkEEWmXZ8NRhAlYRRoBfD2DIhw BQOwRVThnr8XPELrLZHbNDlyVVXfLYTsENAqLCznMVQpHXV8KGE1RRTtDVPyKK1LWfCeGZIqZfQcUJry OMZjCRKbyr3ZRJUnZBE2FtF1XWEjAPYbIFYlHYdfSTClEYE7WRYkSZOyZQIsNJ7SRtZmBMGtFHmpUIKt PURsEWMgfy0MDDJpAAO9DCO4FYIhFNEnAWDzJRmvVL PoKWN2ZNr9VMReJRAhGM3OGzJiYBRbPMc0OGHdUAPgIIZbnl4RXUJlTLR4FVSrCKAoANQrOPRtMAejAE AmFQB1BIB9KUArYRNlKB8SRbIcWPYmSCTlPvljXVMfTWFrkd6WCBBcPUQ7LAvtEXBwMTKkWUWiHKeqEI JqCKLwNen1AOMwTCUwMZ9HWwVdIZIsUYZ1LlLyDTZl FOBxwl1AdZOhuGyhkc2RITiATh8CdIqcDZRcSBvhBn3hoNU6UVBcOULBJa8TyaXsDNUjCKIMXYesPIMy PQJ5EFZmCYlnZuCiGOV6ATH4DPSlHbKlY3OnStT2X6Z3IrY1YDBqZMAkV4ExBPFnFXQiPYC8MSI3RAOf YLVhQdB9Rhf+VW1nTMx+Yy9Zn7DaifN6xrBiCLp6EvZ4VY0ZDJNUX2MXNj== ID Date Data Source [id number] 05/12/2020 02:35:05 PM EDT [facility] Name Value Range Interpretation Code Description Data Beronica rce(s) Supporting Document(s) Discharge Summary [facility] NYILPi0pHrABPcDv92/QOAnzHHAms0BkVPqaFFh2PGpmOJSzA7YdILF5zA1cQKL3BItORrVcAoNkHBWe lbm ZqIvxJVgAjYOShFebQIrUnXCmxBixalHJiLX3HiDS3AXHuO46nFQPvTKXcT2ZcUWW0NMM+Kd0ROXDxqX PkGU2BIveD4L2uq3v9Ij9+gW6Z4i5bSiGfHnnM/wrXenoP1tp9k7cO+zEglgc74k86soitnj/+JFFaaS gns1Hn4LMOZcAAuOepzY+BRMtT308/uX1val6w0h+7 o6FklkcF+PpkHY6KF2wx7A/LEQKV3wRqXv9h//Skvc00omf6v/BOwn6oWqyVSuEOTmYKl7L8yP128Rct +J7vMy7cXf3pbBKBTo7GmBzKWvY7rn6dticvop93JZBHhQIPaM7OVh9pEopmBJyq0Y8Y+5bioQ9/eUGm e2UPEvF0GPrUOtyHNko9hqlFJxlOISahHTXBIhKVds k09IN69NdKtYzMyidAD0SYIirqndNvr6mvQ5Isev8QzW2gGfcK06mHOUTphM9SGiipXRwe7zSLMhdTf9 syg8Gi2MW/tecCMCJhxoHIlCAGvajeSR514J1ucjkXpi8247A4QLsaHwCmG+5x1izvb3yPBj4uEa2Qrh cLLmR/hDKayJRsuNLhPLHUP5kChyyNKZW/Z4i/g2nK GjUy2GJ4ky3rIaAu2xDLY6ReS8e/iKByDqCzdoF359zdhUPgopMh+/aMI79DT9TVIk8ciaXXL434gfux kkmAbeOQJ0qAQhlO4jQb0lY67yglwPGr/R4mjnXgYLb9j3C/LB3s2wCfM/rRcMWHVOoyqQcd7gOlwUuG d2O3Wvjl3OWTOcsA/UPwtJLCj2Zjb8epUJMHHsklUU zXWNvldQHTHvufTEoY3z4OyDCatIUdTBdcTX+vkBxrTfcWvcH6hGh1XMH5O7O59XKaAwQNyaCmIJ/Michelle CC3Ne+EZdz9/xY53JIhH0P52ImKRXAZJoqh05CIGE8/vR4mWv1uNsF60zrNh4Ij+/OL4/FydHh/sXP52 /A18oqYCath1Hmy28CiVRdPlTN9qLrRXg2Pvx7bXNe dHNMK5U+i88ZXbTqlWP6D6A6iRhj+6TQiuIXqnHxWLhjWX82Pk0+mREgmJZaQxuOS5xOOaM7FP1SbUvK vrNDVGnmfbeoOveyBaan4RKPn+6Thwou++JJt3C6fVC1G7WBoNtMNvW4G8RhCMOBzuwqEr+LWAOpBf7C Reer++3Tsp0pau5WVOPTf4yRbOnDX6Tt+oQ7YCf9FP eWH+cJTwEKTaV1LDLWgQ9pIiCpfPren350nARygyJQK89ZxXFyX5iHJfuGlYEGiSZoeoCH2Bo3C3xZtD JeSGM8RS9I5ue5802gOvrkB45bi6MH1Ud22nye3oBrivxmCmHyCtG69ruvfruIDPDRZDma/Marichuy/TadOA1 [file] qEGc8kU9mTVIoSFeHK6OacrYoIQsATErFEUUjhytioWuNpekn/mash filter cloth changer+qN3tbjr3a9FrHFoBeStZFL2nlJM [file] nEBdHi3TJzXmROPQZwNoCW2SSDc= ID Date Data Source [id number] 05/11/2020 12:35:16 PM [facility] Value Range Interpretation Code Description Data Beronica rce(s) Supporting Document(s) Glucose [Mass/volume] in Capillary blood by Glucometer 89 mg/dL 70- 140 [facility] ID Date Data Source [id number] 05/11/2020 08:33:06 AM [facility] Value Range Interpretation Code Description Data Beronica rce(s) Supporting Document(s) Glucose [Mass/volume] in Capillary blood by Glucometer 75 mg/dL 70- 140 [facility] ID Date Data Source [id number] 05/11/2020 04:48:45 AM [facility] Value Range Interpretation Code Description Data Beronica rce(s) Supporting Document(s) Prothrombin time (PT) 20.4 s 12.5-14.9 H [facility] INR in Platelet poor plasma by Coagulation assay 1.71 [facility] Routine intensity oral anticoagulation I NR is typically 2.0-3.0. Target INR must be clinically individualized. ID Date Data Source [id number] 05/11/2020 05:00:59 AM [facility] Value Range Interpretation Code Description Data Beronica rce(s) Supporting Document(s) Albumin [Mass/volume] in Serum or Plasma by Bromocresol green (BCG) dye binding method 2.5 g/dL 3.5-5.2 [facility] Bilirubin.total [Mass/volume] in Serum or Plasma 9.5 mg/dL <1.2 [facility] Bilirubin.direct [Mass/volume] in Serum or Plasma 6.3 mg/dL <0.3 [facility] Alkaline phosphatase [Enzymatic activity/volume] in Serum or Plasma 120 U/L 40-129 [facility] Aspartate aminotransferase [Enzymatic activity/volume] in Serum or Plasma 113 U/L <40 [facility] Alanine aminotransferase [Enzymatic activity/volume] in Seru m or Plasma 59 U/L <41 [facility] Protein [Mass/volume] in Serum or Plasma 7.3 g/dL 6.4-8.3 [facility] ID Date Data Source [id number] 05/11/2020 05:00:59 AM [facility] Name Value Range Interpretation Code Description Data Beronica rce(s) Supporting Document(s) Phosphate [Mass/volume] in Serum or Plasma 2.0 mg/dL 2.5-4.5 L [facility] ID Date Data Source [id number] 05/11/2020 05:00:59 AM [facility] Name Value Range Interpretation Code Description Data Beronica rce(s) Supporting Document(s) Magnesium [Mass/volume] in Serum or Plasma 1.9 mg/dL 1.6-2.6 [facility] ID Date Data Source [id number] 05/10/2020 11:05:42 PM [facility] Cmnt XXX-Imp : NoneMicroorganism XXX Cult : 2019 nCoV Real-Time RT-PCR: NOT DETECTEDTest performed using [employer] Respiratory Panel. This test is only for use under Food and Drug Administration's Emergency Use Authorization.Additional information is available on the following FDA websites for health care providers and patients. https://www.fda.gov/media/033720/download , https://www.fda.gov/me tin/067051/downloadPolymerase chain reaction is NEGATIVE for Influenza A H1, H3 and 2009 H1 viruses, Influenza B virus, Respiratory syncytial virus, Human metapneumovirus, Parainfluenza virus 1,2,3 and 4, Adenovirus, Rhinovirus/ Enterovirus, Coronavirus HKU1, NL63, OC43 and 229E, Bordetella pertussis, B. parapertussis, Mycoplasma pneumoniae and Chlamydia pneumoniae. Name Value Range Interpretation Code Description Data Beronica rce(s) Supporting Document(s) ID Date Data Source [id number] 05/10/2020 10:03:00 PM [facility] Cmnt XXX-Imp : NoneMicroorganism XXX Cult : 2019 nCoV Real-Time RT-PCR: NOT DETECTEDTest performed using [employer] Respiratory Panel. This test is only for use under Food and Drug Administration's Emergency Use Authorization.Additional information is available on the following FDA websites for health care providers and patients. https://www.fda.gov/media/835993/download , https://www.fda.gov/ga tin/391558/downloadPolymerase chain reaction is NEGATIVE for Influenza A H1, H3 and 2009 H1 viruses, Influenza B virus, Respiratory syncytial virus, Human metapneumovirus, Parainfluenza virus 1,2,3 and 4, Adenovirus, Rhinovirus/ Enterovirus, Coronavirus HKU1, NL63, OC43 and 229E, Bordetella pertussis, B. parapertussis, Mycoplasma pneumoniae and Chlamydia pneumoniae. Name Value Range Interpretation Code Description Data Beronica rce(s) Supporting Document(s) Microorganism identified in Unspecified specimen by [facility] This lab was ordered by [facility] and reported by [facility]. ID Date Data Source [id number] 05/10/2020 10:11:33 PM [facility] Value Range Interpretation Code Description Data Beronica rce(s) Supporting Document(s) Glucose [Mass/volume] in Capillary blood by Glucometer 138 mg/dL 70- 140 [facility] ID Date Data Source [id number] 05/10/2020 04:59:54 PM [facility] Value Range Interpretation Code Description Data Beronica rce(s) Supporting Document(s) Glucose [Mass/volume] in Capillary blood by Glucometer 150 mg/dL 70- 140 [facility] ID Date Data Source [id number] 05/10/2020 12:19:55 PM [facility] Value Range Interpretation Code Description Data Beronica rce(s) Supporting Document(s) Glucose [Mass/volume] in Capillary blood by Glucometer 103 mg/dL 70- 140 [facility] ID Date Data Source [id number] 05/10/2020 08:24:00 AM [facility] Value Range Interpretation Code Description Data Beronica rce(s) Supporting Document(s) Glucose [Mass/volume] in Capillary blood by Glucometer 79 mg/dL - 140 [facility] ID Date Data Source [id number] 05/10/2020 04:28:28 AM [facility] Value Range Interpretation Code Description Data Beronica rce(s) Supporting Document(s) Prothrombin time (PT) 21.4 s 12.5-14.9 H [facility] INR in Platelet poor plasma by Coagulation assay 1.82 [facility] Routine intensity oral anticoagulation I NR is typically 2.0-3.0. Target INR must be clinically individualized. ID Date Data Source [id number] 05/10/2020 04:39:11 AM [facility] Value Range Interpretation Code Description Data Beronica rce(s) Supporting Document(s) Albumin [Mass/volume] in Serum or Plasma by Bromocresol green (BCG) dye binding method 2.3 g/dL 3.5-5.2 [facility] Bilirubin.total [Mass/volume] in Serum or Plasma 10.2 mg/dL <1.2 [facility] Bilirubin.direct [Mass/volume] in Serum or Plasma 7.3 mg/dL <0.3 [facility] Alkaline phosphatase [Enzymatic activity/volume] in Serum or Plasma 109 U/L 40-129 [facility] Aspartate aminotransferase [Enzymatic activity/volume] in Serum or Plasma 109 U/L <40 [facility] Alanine aminotransferase [Enzymatic activity/volume] in Seru m or Plasma 53 U/L <41 [facility] Protein [Mass/volume] in Serum or Plasma 6.5 g/dL 6.4-8.3 [facility] ID Date Data Source [id number] 05/10/2020 04:39:11 AM [facility] Value Range Interpretation Code Description Data Beronica rce(s) Supporting Document(s) Magnesium [Mass/volume] in Serum or Plasma 1.8 mg/dL 1.6-2.6 [facility] ID Date Data Source [id number] 05/10/2020 04:39:11 AM [facility] Value Range Interpretation Code Description Data Beronica rce(s) Supporting Document(s) Phosphate [Mass/volume] in Serum or Plasma 2.7 mg/dL 2.5-4.5 [facility] ID Date Data Source [id number] 05/09/2020 09:39:53 PM [facility] Value Range Interpretation Code Description Data Beronica rce(s) Supporting Document(s) Glucose [Mass/volume] in Capillary blood by Glucometer 89 mg/dL 70- 140 [facility] ID Date Data Source [id number] 05/12/2020 07:06:04 PM EDT [facility] Name Value Range Interpretation Code Description Data Beronica rce(s) Supporting Document(s) Corticotropin [Mass/volume] in Plasma 13.7 pg/mL 7.2-63.3 [facility] (NOTE)ACTH reference interval for sample s collected between 7 and 10 AM.Performed At: RN [facility] [address] [place], [place] [id number] Aguiar MD Ph:[id number] ID Date Data Source [id number] 05/09/2020 05:17:06 PM EDT [facility] Name Value Range Interpretation Code Description Data Beronica rce(s) Supporting Document(s) Glucose [Mass/volume] in Capillary blood by Glucometer 101 mg/dL 70- 140 [facility] ID Date Data Source [id number] 05/09/2020 02:41:59 PM EDT [facility] XR CHEST FRONTAL ONLY [id number] RESULTI nterpreted by:Rick Langley [facility] IN[facility]: Exam: XR Chest, 1 View Exam date and time: 05/09/2020 1:44 PM Age: 49 years old Clinical indication: Alcohol dependence with withdrawal, uncomplicated; Alcoholic hepatitis without ascites; Chest pain; Type not specified; Additional info: Evaluation for fever TECHNIQUE: Imaging protocol: XR of the chest Views: 1 view. COMPARISON: CR XR CHEST FRONTAL ONLY [id number] PORTABLE 04/25/2020 5:22 AM FINDINGS: Tubes, catheters [...] rce(s) Supporting Document(s) ID Date Data Source [id number] 05/09/2020 02:53:34 PM EDT [facility] Name Value Range Interpretation Code Description Data Beronica rce(s) Supporting Document(s) Leukocytes [#/volume] in Blood by Automated count 7.1 10*3/uL 4-10 [facility] ID Date Data Source [id number] 05/14/2020 11:01:00 AM EDT [facility] Service Cmnt XXX-Imp : LEFT HANDMicroorg anism XXX Cult : No growth 5 days Name Value Range Interpretation Code Description Data Beronica rce(s) Supporting Document(s) ID Date Data Source [id number] 05/14/2020 11:01:00 AM EDT [facility] Cmnt XXX-Imp : RT HANDMicroorga nism XXX Cult : No growth 5 days Name Value Range Interpretation Code Description Data Beronica rce(s) Supporting Document(s) ID Date Data Source [id number] 05/09/2020 03:30:35 PM EDT [facility] Name Value Range Interpretation Code Description Data Beronica rce(s) Supporting Document(s) Color of Urine [facility] Clarity of Urine [facility] Specific gravity of Urine by Refractometry automated 1.008 1.003 -1.030 [facility] pH of Urine by Automated test strip 6.0 5.0-8.0 [facility] Protein [Mass/volume] in Urine by Automated test strip Neg [facility] Glucose [Mass/volume] in Urine by Automated test strip Neg [facility] Ketones [Mass/volume] in Urine by Automated test strip Neg [facility] Bilirubin.total [Presence] in Urine by Automated test strip Negative [facility] False-positive results may occur with ce rtain food additives or medications. Hemoglobin [Presence] in Urine by Automated test strip Neg ative A [facility] Leukocyte esterase [Presence] in Urine by Automated test strip Negative [facility] Nitrite [Presence] in Urine by Automated test strip Negati [facility] Leukocytes [#/area] in Urine sediment by Automated count 1 /HPF 0 -5 [facility] Erythrocytes [#/area] in Urine sediment by Automated count 1 /HPF 0-3 [facility] Service comment [facility] Bacteria [#/area] in Urine sediment by Automated count Non e [facility] Mucus [#/area] in Urine sediment by Microscopy low power field None [facility] ID Date Data Source [id number] 05/09/2020 12:29:24 PM [facility] Value Range Interpretation Code Description Data Beronica rce(s) Supporting Document(s) Glucose [Mass/volume] in Capillary blood by Glucometer 76 mg/dL 70- 140 [facility] ID Date Data Source [id number] 05/09/2020 10:33:47 AM [facility] Value Range Interpretation Code Description Data Beronica rce(s) Supporting Document(s) Cortisol [Mass/volume] in Serum or Plasma 5.8 ug/dL [facility] Ref range for 6-10 am samples: 6.0-18.4 ug/dLRef range for 4-8 pm samples: 2.7- 10.5 ug/dLRef range not established for other times. ID Date Data Source [id number] 05/09/2020 08:35:41 AM [facility] Value Range Interpretation Code Description Data Beronica rce(s) Supporting Document(s) Glucose [Mass/volume] in Capillary blood by Glucometer 73 mg/dL 70- 140 [facility] ID Date Data Source [id number] 05/09/2020 05:00:14 AM [facility] Value Range Interpretation Code Description Data Beronica rce(s) Supporting Document(s) Prothrombin time (PT) 20.6 s 12.5-14.9 H [facility] INR in Platelet poor plasma by Coagulation assay 1.74 [facility] Routine intensity oral anticoagulation I NR is typically 2.0-3.0. Target INR must be clinically individualized. ID Date Data Source [id number] 05/09/2020 05:22:16 AM [facility] Value Range Interpretation Code Description Data Beronica rce(s) Supporting Document(s) Phosphate [Mass/volume] in Serum or Plasma 3.2 mg/dL 2.5-4.5 [facility] ID Date Data Source [id number] 05/09/2020 05:22:16 AM [facility] Value Range Interpretation Code Description Data Beronica rce(s) Supporting Document(s) Cortisol [Mass/volume] in Serum or Plasma 2.9 ug/dL [facility] Ref range for 6-10 am samples: 6.0-18.4 ug/dLRef range for 4-8 pm samples: 2.7- 10.5 ug/dLRef range not established for other times. ID Date Data Source [id number] 05/09/2020 05:22:16 AM [facility] Value Range Interpretation Code Description Data Beronica rce(s) Supporting Document(s) Albumin [Mass/volume] in Serum or Plasma by Bromocresol green (BCG) dye binding method 2.4 g/dL 3.5-5.2 [facility] Bilirubin.total [Mass/volume] in Serum or Plasma 11.7 mg/dL <1.2 H [facility] Bilirubin.direct [Mass/volume] in Serum or Plasma 8.4 mg/dL <0.3 H [facility] Alkaline phosphatase [Enzymatic activity/volume] in Serum or Plasma 117 U/L 40-129 [facility] Aspartate aminotransferase [Enzymatic activity/volume] in Serum or Plasma 111 U/L <40 [facility] Alanine aminotransferase [Enzymatic activity/volume] in Seru m or Plasma 55 U/L <41 H [facility] Protein [Mass/volume] in Serum or Plasma 6.5 g/dL 6.4-8.3 [facility] ID Date Data Source [id number] 05/09/2020 05:22:16 AM [facility] Value Range Interpretation Code Description Data Beronica rce(s) Supporting Document(s) Magnesium [Mass/volume] in Serum or Plasma 1.6 mg/dL 1.6-2.6 [facility] ID Date Data Source [id number] 05/08/2020 10:13:14 PM [facility] Value Range Interpretation Code Description Data Beronica rce(s) Supporting Document(s) Glucose [Mass/volume] in Capillary blood by Glucometer 101 mg/dL 70- 140 [facility] ID Date Data Source [id number] 05/08/2020 05:11:07 PM [facility] Value Range Interpretation Code Description Data Beronica rce(s) Supporting Document(s) Glucose [Mass/volume] in Capillary blood by Glucometer 90 mg/dL 70- 140 [facility] ID Date Data Source [id number] 05/08/2020 12:44:26 PM [facility] Value Range Interpretation Code Description Data Beronica rce(s) Supporting Document(s) Glucose [Mass/volume] in Capillary blood by Glucometer 104 mg/dL 70- 140 [facility] ID Date Data Source [id number] 05/14/2020 05:06:17 PM [facility] Value Range Interpretation Code Description Data Beronica rce(s) Supporting Document(s) Glucagon [Mass/volume] in Serum or Plasma 125 pg/mL 50-150 [facility] (NOTE)Results of this test are labeled f or research purposes only by theassay's raw stock machine loader. The performance characteristics of this assayhave not been established by the raw stock machine loader. The result shouldnot be used for treatment or for diagnostic purposes withoutconfirmation of the diagnosis by another medically establisheddiagnostic product or procedure. The performance characteristics weredetermined by [employer].Performed At: [address] [id number] Brown MD Ph:[id number] ID Date Data Source [id number] 05/12/2020 09:10:10 AM [facility] Value Range Interpretation Code Description Data Beronica rce(s) Supporting Document(s) C peptide [Mass/volume] in Serum or Plasma 4.7 ng/mL 0.8-5.2 [facility] ID Date Data Source [id number] 05/16/2020 01:06:15 PM [facility] Value Range Interpretation Code Description Data Beronica rce(s) Supporting Document(s) Insulin Ab [Units/volume] in Serum 13 uU/mL [facility] (NOTE)This test is also known as insulin autoantibody or IAA.This test was developed and its performance characteristicsdetermined by [employer]. It has not been cleared or approvedby the Food and Drug Administration.Reference Range:<5.0 Negative> or = 5.0 PositivePerformed At: [facility] [id number] [place], [place] [id number] Dang MD Ph:[phone] ID Date Data Source [id number] 05/08/2020 10:59:11 AM [facility] Value Range Interpretation Code Description Data Beronica rce(s) Supporting Document(s) Leukocytes [#/volume] in Blood by Automated count 7.2 10*3/uL 4-10 [facility] Erythrocytes [#/volume] in Blood by Automated count 2.77 10*6/uL 4.6- 6.1 L [facility] Hemoglobin [Mass/volume] in Blood 10.1 g/dL 13.5-18 L [facility] Hematocrit [Volume Fraction] of Blood by Automated count 29.4 % 4 1-53 L [facility] Erythrocyte mean corpuscular volume [Entitic volume] b y Automated count 106.0 fL 80-96 H [facility] Erythrocyte mean corpuscular hemoglobin [Entitic mass] by Automated count 36.4 pg 27-33 H [facility] Erythrocyte mean corpuscular hemoglobin concentration [Mass/volume] by Automated count 34.3 g/dL 32.0-36.0 [facility] distribution width [Ratio] by Automated count 15.5 % 11.5-14.5 H [facility] Platelets [#/volume] in Blood by Automated count 98 10*3/uL 150-400 L [facility] ID Date Data Source [id number] 05/08/2020 11:19:32 AM [facility] Name Value Range Interpretation Code Description Data Beronica rce(s) Supporting Document(s) Beta hydroxybutyrate [Moles/volume] in Serum or Plasma 0.09 mmol/L <0 .60 [facility] (NOTE) <0.60 Normal 0.60-1.50 May indicate the development of a problem >1.50 At risk for DKA ID Date Data Source [id number] 05/08/2020 11:19:32 AM [facility] Value Range Interpretation Code Description Data Beronica rce(s) Supporting Document(s) Bicarbonate [Moles/volume] in Serum 22 mmol/L 22-29 [facility] Chloride [Moles/volume] in Serum or Plasma 99 mmol/L 98-107 [facility] Creatinine [Mass/volume] in Serum or Plasma 0.44 mg/dL 0.70-1.20 [facility] IctericConfirmed Glucose [Mass/volume] in Serum or Plasma 105 mg/dL 70-140 [facility] Potassium [Moles/volume] in Serum or Plasma 3.7 mmol/L 3.4-5.1 [facility] Sodium [Moles/volume] in Serum or Plasma 129 mmol/L 136-145 [facility] Urea nitrogen [Mass/volume] in Serum or Plasma 6 mg/dL 6-20 [facility] Anion gap 3 in Serum or Plasma 9 mmol/L 8-15 [facility] Osmolality of Serum or Plasma by calculation 266 mosm/kg 275-300 [facility] Creatinine/Urea nitrogen [Mass Ratio] in Serum or Plasma 14 [facility] Calcium [Mass/volume] in Serum or Plasma 7.9 mg/dL 8.6-10.0 L [facility] Glomerular filtration rate/1.73 sq M pre dicted among non-blacks [Volume Rate/Area] in Serum or Plasma by Creatinine-based formula (MDRD) >6 0 [facility] Glomerular filtration rate/1.73 sq M pre dicted among blacks [Volume Rate/Area] in Serum or Plasma by Creatinine-based formula (MDRD) >60 [facility] ID Date Data Source [id number] 05/08/2020 08:49:11 AM [facility] Name Value Range Interpretation Code Description Data Beronica rce(s) Supporting Document(s) Glucose [Mass/volume] in Capillary blood by Glucometer 70 mg/dL 70- 140 [facility] ID Date Data Source [id number] 05/08/2020 05:57:47 AM [facility] Value Range Interpretation Code Description Data Beronica rce(s) Supporting Document(s) Prothrombin time (PT) 21.5 s 12.5-14.9 H [facility] INR in Platelet poor plasma by Coagulation assay 1.83 [facility] Routine intensity oral anticoagulation I NR is typically 2.0-3.0. Target INR must be clinically individualized. ID Date Data Source [id number] 05/08/2020 05:59:51 AM [facility] Value Range Interpretation Code Description Data Beronica rce(s) Supporting Document(s) Albumin [Mass/volume] in Serum or Plasma by Bromocresol green (BCG) dye binding method 2.2 g/dL 3.5-5.2 [facility] Bilirubin.total [Mass/volume] in Serum or Plasma 12.9 mg/dL <1.2 H [facility] Bilirubin.direct [Mass/volume] in Serum or Plasma 9.0 mg/dL <0.3 H [facility] Alkaline phosphatase [Enzymatic activity/volume] in Serum or Plasma 115 U/L 40-129 [facility] Aspartate aminotransferase [Enzymatic activity/volume] in Serum or Plasma 111 U/L <40 [facility] Alanine aminotransferase [Enzymatic activity/volume] in Seru m or Plasma 57 U/L <41 [facility] Protein [Mass/volume] in Serum or Plasma 6.6 g/dL 6.4-8.3 [facility] ID Date Data Source [id number] 05/08/2020 05:59:51 AM [facility] Name Value Range Interpretation Code Description Data Beronica rce(s) Supporting Document(s) Magnesium [Mass/volume] in Serum or Plasma 1.6 mg/dL 1.6-2.6 [facility] ID Date Data Source [id number] 05/08/2020 05:59:51 AM [facility] Name Value Range Interpretation Code Description Data Beronica rce(s) Supporting Document(s) Phosphate [Mass/volume] in Serum or Plasma 2.9 mg/dL 2.5-4.5 [facility] ID Date Data Source [id number] 05/08/2020 05:59:21 AM [facility] Name Value Range Interpretation Code Description Data Beronica rce(s) Supporting Document(s) Hemoglobin A1c/Hemoglobin.total in Blood by HPLC 4.2 % 4.0-6.0 [facility] Glucose mean value [Mass/volume] in Blood Estimated fr glycated hemoglobin 74 mg/dL <126 [facility] ID Date Data Source [id number] 05/07/2020 10:43:[address] [facility] [address] ABDOMEN PELVIS WITH CONTRAST [id number] AL RESULTInterpreted by:DANDRE MerinoROCEDURE INFORMATION: Exam: CT [...] rce(s) Supporting Document(s) ID Date Data Source [id number] 05/08/2020 12:02:31 AM [facility] Cmnt XXX-Imp : NoneMicroorganism XXX Cult : 2019 nCoV Real-Time RT-PCR: NOT DETECTEDTest performed using [employer] Respiratory Panel. This test is only for use under Food and Drug Administration's Emergency Use Authorization.Additional information is available on the following FDA websites for health care providers and patients. https://www.fda.gov/media/645474/download , https://www.fda.gov/ga tin/452843/downloadPolymerase chain reaction is NEGATIVE for Influenza A H1, H3 and 2009 H1 viruses, Influenza B virus, Respiratory syncytial virus, Human metapneumovirus, Parainfluenza virus 1,2,3 and 4, Adenovirus, Rhinovirus/ Enterovirus, Coronavirus HKU1, NL63, OC43 and 229E, Bordetella pertussis, B. parapertussis, Mycoplasma pneumoniae and Chlamydia pneumoniae. Name Value Range Interpretation Code Description Data Beronica rce(s) Supporting Document(s) ID Date Data Source [id number] 05/07/2020 10:39:00 PM [facility] Service Cmnt XXX-Imp : NoneMicroorganism XXX Cult : 2019 nCoV Real-Time RT-PCR: NOT DETECTEDTest performed using [employer] Respiratory Panel. This test is only for use under Food and Drug Administration's Emergency Use Authorization.Additional information is available on the following FDA websites for health care providers and patients. https://www.fda.gov/media/948380/download , https://www.fda.gov/ga tin/626726/downloadPolymerase chain reaction is NEGATIVE for Influenza A H1, H3 and 2009 H1 viruses, Influenza B virus, Respiratory syncytial virus, Human metapneumovirus, Parainfluenza virus 1,2,3 and 4, Adenovirus, Rhinovirus/ Enterovirus, Coronavirus HKU1, NL63, OC43 and 229E, Bordetella pertussis, B. parapertussis, Mycoplasma pneumoniae and Chlamydia pneumoniae. Name Value Range Interpretation Code Description Data Beronica rce(s) Supporting Document(s) Microorganism identified in Unspecified specimen by [facility] This lab was ordered by [facility] and reported by [facility]. ID Date Data Source [id number] 05/07/2020 09:34:33 PM [facility] Name Value Range Interpretation Code Description Data Beronica rce(s) Supporting Document(s) Glucose [Mass/volume] in Capillary blood by Glucometer 89 mg/dL 70- 140 [facility] ID Date Data Source [id number] 05/07/2020 05:08:17 PM [facility] Value Range Interpretation Code Description Data Beronica rce(s) Supporting Document(s) Glucose [Mass/volume] in Capillary blood by Glucometer 103 mg/dL 70- 140 [facility] ID Date Data Source [id number] 05/07/2020 04:21:43 PM [facility] HEPATOBILIARY IMAGING HIDA [id number] RESULTInterpreted by:Radu Castaneda, Christine Ignacio MDINDICATION: Evaluate [...] rce(s) Supporting Document(s) ID Date Data Source [id number] 05/07/2020 12:22:34 PM [facility] Value Range Interpretation Code Description Data Beronica rce(s) Supporting Document(s) Glucose [Mass/volume] in Capillary blood by Glucometer 79 mg/dL 70- 140 [facility] ID Date Data Source [id number] 05/07/2020 08:19:42 AM [facility] Value Range Interpretation Code Description Data Beronica rce(s) Supporting Document(s) Glucose [Mass/volume] in Capillary blood by Glucometer 74 mg/dL 70- 140 [facility] ID Date Data Source [id number] 05/07/2020 08:19:37 AM [facility] Value Range Interpretation Code Description Data Beronica rce(s) Supporting Document(s) Glucose [Mass/volume] in Capillary blood by Glucometer 35 mg/dL 70- 140 [facility] ID Date Data Source [id number] 05/07/2020 08:34:45 AM EDT [facility] Name Value Range Interpretation Code Description Data Beronica rce(s) Supporting Document(s) Bicarbonate [Moles/volume] in Serum 23 mmol/L 22-29 [facility] Chloride [Moles/volume] in Serum or Plasma 100 mmol/L 98-107 [facility] Creatinine [Mass/volume] in Serum or Plasma 0.38 mg/dL 0.70-1.20 L [facility] [employer] Glucose [Mass/volume] in Serum or Plasma 89 mg/dL 70-140 [facility] Potassium [Moles/volume] in Serum or Plasma 4.2 mmol/L 3.4-5.1 [facility] Sodium [Moles/volume] in Serum or Plasma 132 mmol/L 136-145 L [facility] Urea nitrogen [Mass/volume] in Serum or Plasma 6 mg/dL 6-20 [facility] Anion gap 3 in Serum or Plasma 9 mmol/L 8-15 [facility] Osmolality of Serum or Plasma by calculation 271 mosm/kg 275-300 L [facility] Creatinine/Urea nitrogen [Mass Ratio] in Serum or Plasma 16 [facility] Calcium [Mass/volume] in Serum or Plasma 8.0 mg/dL 8.6-10.0 [facility] Glomerular filtration rate/1.73 sq M pre dicted among non-blacks [Volume Rate/Area] in Serum or Plasma by Creatinine-based formula (MDRD) >6 0 [facility] Glomerular filtration rate/1.73 sq M pre dicted among blacks [Volume Rate/Area] in Serum or Plasma by Creatinine-based formula (MDRD) >60 [facility] ID Date Data Source [id number] 05/07/2020 04:56:00 AM [facility] Value Range Interpretation Code Description Data Beronica rce(s) Supporting Document(s) Leukocytes [#/volume] in Blood by Automated count 6.7 10*3/uL 4-10 [facility] Erythrocytes [#/volume] in Blood by Automated count 2.77 10*6/uL 4.6- 6.1 [facility] Hemoglobin [Mass/volume] in Blood 10.1 g/dL 13.5-18 L [facility] Hematocrit [Volume Fraction] of Blood by Automated count 29.6 % 4 1-53 L [facility] Erythrocyte mean corpuscular volume [Entitic volume] b y Automated count 106.8 fL 80-96 H [facility] Erythrocyte mean corpuscular hemoglobin [Entitic mass] by Automated count 36.5 pg 27-33 H [facility] Erythrocyte mean corpuscular hemoglobin concentration [Mass/volume] by Automated count 34.2 g/dL 32.0-36.0 [facility] Erythrocyte distribution width [Ratio] by Automated count 15.8 % 11.5-14.5 H [facility] Platelets [#/volume] in Blood by Automated count 89 10*3/uL 150-400 L [facility] ID Date Data Source [id number] 05/07/2020 05:08:11 AM [facility] Value Range Interpretation Code Description Data Beronica rce(s) Supporting Document(s) Prothrombin time (PT) 23.2 s 12.5-14.9 H [facility] INR in Platelet poor plasma by Coagulation assay 2.02 [facility] Routine intensity oral anticoagulation I NR is typically 2.0-3.0. Target INR must be clinically individualized. ID Date Data Source [id number] 05/07/2020 05:23:08 AM [facility] Value Range Interpretation Code Description Data Beronica rce(s) Supporting Document(s) Albumin [Mass/volume] in Serum or Plasma by Bromocresol green (BCG) dye binding method 2.1 g/dL 3.5-5.2 L [facility] Bilirubin.total [Mass/volume] in Serum or Plasma 12.0 mg/dL <1.2 H [facility] Bilirubin.direct [Mass/volume] in Serum or Plasma 8.3 mg/dL <0.3 H [facility] Alkaline phosphatase [Enzymatic activity/volume] in Serum or Plasma 118 U/L 40-129 [facility] Aspartate aminotransferase [Enzymatic activity/volume] in Serum or Plasma 109 U/L <40 [facility] Alanine aminotransferase [Enzymatic activity/volume] in Seru m or Plasma 57 U/L <41 H [facility] Protein [Mass/volume] in Serum or Plasma 6.4 g/dL 6.4-8.3 [facility] ID Date Data Source [id number] 05/07/2020 05:23:08 AM [facility] Value Range Interpretation Code Description Data Beronica rce(s) Supporting Document(s) Magnesium [Mass/volume] in Serum or Plasma 1.5 mg/dL 1.6-2.6 L [facility] ID Date Data Source [id number] 05/07[facility] Interpretation Code Description Data Beronica rce(s) Supporting Document(s) Phosphate [Mass/volume] in Serum or Plasma 2.6 mg/dL 2.5-4.5 [facility] ID Date Data Source [id number] 05/06/2020 09:32:24 PM [facility] Name Value Range Interpretation Code Description Data Beronica rce(s) Supporting Document(s) Glucose [Mass/volume] in Capillary blood by Glucometer 94 mg/dL 70- 140 [facility] ID Date Data Source [id number] 05/06/2020 05:49:[address] [facility] [address] HEAD WITHOUT CONTRAST [id number] RESU LTInterpreted by:DANDRE MckeonROCEDURE INFORMATION: Exam: CT [...] rce(s) Supporting Document(s) ID Date Data Source [id number] 05/06/2020 05:14:03 PM [facility] Name Value Range Interpretation Code Description Data Beronica rce(s) Supporting Document(s) Glucose [Mass/volume] in Capillary blood by Glucometer 98 mg/dL 70- 140 [facility] ID Date Data Source [id number] 05/06/2020 03:53:52 PM EDT [facility] Name Value Range Interpretation Code Description Data Beronica rce(s) Supporting Document(s) Glucose [Mass/volume] in Capillary blood by Glucometer 83 mg/dL 70- 140 [facility] ID Date Data Source [id number] 05/06/2020 03:42:36 PM EDT [facility] US ABDOMEN LIMITED [id number] RESULTInte rpreted by:Kevin Walker [facility]:49-year-old male with hyperbilirubinemia and transaminitis, who [...] of normal measuring 2.6 mm. There is vmhi-iw-rumtyheg gallbladder sludge and mobile gallstones layering dependently [...] rce(s) Supporting Document(s) ID Date Data Source [id number] 05/06/2020 01:42:46 PM [facility] Value Range Interpretation Code Description Data Beronica rce(s) Supporting Document(s) Leukocytes [#/volume] in Blood by Automated count 6.7 10*3/uL 4-10 [facility] Erythrocytes [#/volume] in Blood by Automated count 2.85 10*6/uL 4.6- 6.1 L [facility] Hemoglobin [Mass/volume] in Blood 10.4 g/dL 13.5-18 L [facility] Hematocrit [Volume Fraction] of Blood by Automated count 30.3 % 4 1-53 [facility] Erythrocyte mean corpuscular volume [Entitic volume] b y Automated count 106.1 fL 80-96 [facility] Erythrocyte mean corpuscular hemoglobin [Entitic mass] by Automated count 36.4 pg 27-33 [facility] Erythrocyte mean corpuscular hemoglobin concentration [Mass/volume] by Automated count 34.3 g/dL 32.0-36.0 [facility] width [Ratio] by Automated count 15.7 % 11.5-14.5 [facility] Platelets [#/volume] in Blood by Automated count 87 10*3/uL 150-400 [facility] ID Date Data Source [id number] 05/06/2020 12:33:22 PM [facility] Value Range Interpretation Code Description Data Beronica rce(s) Supporting Document(s) Glucose [Mass/volume] in Capillary blood by Glucometer 96 mg/dL 70- 140 [facility] ID Date Data Source [id number] 05/06/2020 08:34:21 AM [facility] Value Range Interpretation Code Description Data Beronica rce(s) Supporting Document(s) Glucose [Mass/volume] in Capillary blood by Glucometer 90 mg/dL 70- 140 [facility] ID Date Data Source [id number] 05/06/2020 05:30:17 AM [facility] Name Value Range Interpretation Code Description Data Beronica rce(s) Supporting Document(s) Bicarbonate [Moles/volume] in Serum 23 mmol/L 22-29 [facility] Chloride [Moles/volume] in Serum or Plasma 100 mmol/L 98-107 [facility] Creatinine [Mass/volume] in Serum or Plasma 0.34 mg/dL 0.70-1.20 L [facility] Icteric Glucose [Mass/volume] in Serum or Plasma 115 mg/dL 70-140 [facility] Potassium [Moles/volume] in Serum or Plasma 4.2 mmol/L 3.4-5.1 [facility] Sodium [Moles/volume] in Serum or Plasma 133 mmol/L 136-145 L [facility] Urea nitrogen [Mass/volume] in Serum or Plasma 7 mg/dL 6-20 [facility] Anion gap 3 in Serum or Plasma 9 mmol/L 8-15 [facility] Osmolality of Serum or Plasma by calculation 275 mosm/kg 275-300 [facility] Creatinine/Urea nitrogen [Mass Ratio] in Serum or Plasma 21 [facility] Calcium [Mass/volume] in Serum or Plasma 8.3 mg/dL 8.6-10.0 L [facility] Glomerular filtration rate/1.73 sq M pre dicted among non-blacks [Volume Rate/Area] in Serum or Plasma by Creatinine-based formula (MDRD) >6 0 [facility] Glomerular filtration rate/1.73 sq M pre dicted among blacks [Volume Rate/Area] in Serum or Plasma by Creatinine-based formula (MDRD) >60 [facility] ID Date Data Source [id number] 05/06/2020 05:30:17 AM [facility] Value Range Interpretation Code Description Data Beronica rce(s) Supporting Document(s) Magnesium [Mass/volume] in Serum or Plasma 1.6 mg/dL 1.6-2.6 [facility] ID Date Data Source [id number] 05/06/2020 05:30:17 AM [facility] Value Range Interpretation Code Description Data Beronica rce(s) Supporting Document(s) Phosphate [Mass/volume] in Serum or Plasma 3.0 mg/dL 2.5-4.5 [facility] ID Date Data Source [id number] 05/06/2020 05:46:24 AM [facility] Value Range Interpretation Code Description Data Beronica rce(s) Supporting Document(s) Prothrombin time (PT) 21.9 s 12.5-14.9 H [facility] INR in Platelet poor plasma by Coagulation assay 1.87 [facility] Routine intensity oral anticoagulation I NR is typically 2.0-3.0. Target INR must be clinically individualized. ID Date Data Source [id number] 05/06/2020 08:58:07 AM [facility] Value Range Interpretation Code Description Data Beronica rce(s) Supporting Document(s) Albumin [Mass/volume] in Serum or Plasma by Bromocresol green (BCG) dye binding method 2.6 g/dL 3.5-5.2 L [facility] Bilirubin.total [Mass/volume] in Serum or Plasma 13.4 mg/dL <1.2 H [facility] Bilirubin.direct [Mass/volume] in Serum or Plasma 9.0 mg/dL <0.3 H [facility] Alkaline phosphatase [Enzymatic activity/volume] in Serum or Plasma 127 U/L 40-129 [facility] Aspartate aminotransferase [Enzymatic activity/volume] in Serum or Plasma 113 U/L <40 H [facility] Alanine aminotransferase [Enzymatic activity/volume] in Seru m or Plasma 62 U/L <41 H [facility] Protein [Mass/volume] in Serum or Plasma 6.9 g/dL 6.4-8.3 [facility] ID Date Data Source [id number] 05/06/2020 04:35:51 AM [facility] Value Range Interpretation Code Description Data Beronica rce(s) Supporting Document(s) Glucose [Mass/volume] in Capillary blood by Glucometer 77 mg/dL 70- 140 [facility] ID Date Data Source [id number] 05/05/2020 09:08:04 PM [facility] Value Range Interpretation Code Description Data Beronica rce(s) Supporting Document(s) Glucose [Mass/volume] in Capillary blood by Glucometer 140 mg/dL 70- 140 [facility] ID Date Data Source [id number] 05/05/2020 08:14:52 PM [facility] Value Range Interpretation Code Description Data Beronica rce(s) Supporting Document(s) Glucose [Mass/volume] in Capillary blood by Glucometer 103 mg/dL 70- 140 [facility] ID Date Data Source [id number] 05/05/2020 06:49:59 PM [facility] Name Value Range Interpretation Code Description Data Beronica rce(s) Supporting Document(s) Glucose [Mass/volume] in Capillary blood by Glucometer 108 mg/dL 70- 140 [facility] ID Date Data Source [id number] 05/05/2020 08:10:19 PM [facility] Cmnt XXX-Imp : NoneMicroorganism XXX Cult : 2019 nCoV Real-Time RT-PCR: NOT DETECTEDTest performed using [employer] Respiratory Panel. This test is only for use under Food and Drug Administration's Emergency Use Authorization.Additional information is available on the following FDA websites for health care providers and patients. https://www.fda.gov/media/403909/download , https://www.[employer].gov/ga tin/085766/downloadPolymerase chain reaction is NEGATIVE for Influenza A H1, H3 and 2009 H1 viruses, Influenza B virus, Respiratory syncytial virus, Human metapneumovirus, Parainfluenza virus 1,2,3 and 4, Adenovirus, Rhinovirus/ Enterovirus, Coronavirus HKU1, NL63, OC43 and 229E, Bordetella pertussis, B. parapertussis, Mycoplasma pneumoniae and Chlamydia pneumoniae. Name Value Range Interpretation Code Description Data Beronica rce(s) Supporting Document(s) ID Date Data Source [id number] 05/05/2020 06:19:00 PM [facility] Cmnt XXX-Imp : NoneMicroorganism XXX Cult : 2019 nCoV Real-Time RT-PCR: NOT DETECTEDTest performed using [employer] Respiratory Panel. This test is only for use under Food and Drug Administration's Emergency Use Authorization.Additional information is available on the following FDA websites for health care providers and patients. https://www.fda.gov/media/221240/download , https://www.fda.gov/me tin/582342/downloadPolymerase chain reaction is NEGATIVE for Influenza A H1, H3 and 2009 H1 viruses, Influenza B virus, Respiratory syncytial virus, Human metapneumovirus, Parainfluenza virus 1,2,3 and 4, Adenovirus, Rhinovirus/ Enterovirus, Coronavirus HKU1, NL63, OC43 and 229E, Bordetella pertussis, B. parapertussis, Mycoplasma pneumoniae and Chlamydia pneumoniae. Name Value Range Interpretation Code Description Data Beronica rce(s) Supporting Document(s) Microorganism identified in Unspecified specimen by [facility] This lab was ordered by [facility] and reported by [facility]. ID Date Data Source [id number] 05/05/2020 05:34:13 PM [facility] Value Range Interpretation Code Description Data Beronica rce(s) Supporting Document(s) Glucose [Mass/volume] in Capillary blood by Glucometer 85 mg/dL 70- 140 [facility] ID Date Data Source [id number] 05/05/2020 05:06:49 PM [facility] Value Range Interpretation Code Description Data Beronica rce(s) Supporting Document(s) Glucose [Mass/volume] in Capillary blood by Glucometer 69 mg/dL 70- 140 [facility] ID Date Data Source [id number] 05/05/2020 05:06:49 PM [facility] Value Range Interpretation Code Description Data Beronica rce(s) Supporting Document(s) Glucose [Mass/volume] in Capillary blood by Glucometer 61 mg/dL 70- 140 [facility] ID Date Data Source [id number] 05/05/2020 12:19:26 PM [facility] Value Range Interpretation Code Description Data Beronica rce(s) Supporting Document(s) Glucose [Mass/volume] in Capillary blood by Glucometer 72 mg/dL 70- 140 [facility] ID Date Data Source [id number] 05/05/2020 09:42:42 AM [facility] Value Range Interpretation Code Description Data Beronica rce(s) Supporting Document(s) Albumin [Mass/volume] in Serum or Plasma by Bromocresol green (BCG) dye binding method 2.6 g/dL 3.5-5.2 [facility] Bilirubin.total [Mass/volume] in Serum or Plasma 13.2 mg/dL <1.2 H [facility] Calcium [Mass/volume] in Serum or Plasma 8.3 mg/dL 8.6-10.0 L [facility] Chloride [Moles/volume] in Serum or Plasma 95 mmol/L 98-107 L [facility] Creatinine [Mass/volume] in Serum or Plasma 0.40 mg/dL 0.70-1.20 L [facility] [employer] Glucose [Mass/volume] in Serum or Plasma 125 mg/dL 70-140 [facility] Alkaline phosphatase [Enzymatic activity/volume] in Serum or Plasma 134 U/L 40-129 H [facility] Potassium [Moles/volume] in Serum or Plasma 3.0 mmol/L 3.4-5.1 L [facility] Protein [Mass/volume] in Serum or Plasma 7.0 g/dL 6.4-8.3 [facility] Sodium [Moles/volume] in Serum or Plasma 129 mmol/L 136-145 L [facility] Aspartate aminotransferase [Enzymatic activity/volume] in Serum or Plasma 108 U/L <40 H [facility] Urea nitrogen [Mass/volume] in Serum or Plasma 7 mg/dL 6-20 [facility] Osmolality of Serum or Plasma by calculation 268 mosm/kg 275-300 L [facility] Creatinine/Urea nitrogen [Mass Ratio] in Serum or Plasma 18 [facility] Bicarbonate [Moles/volume] in Serum 24 mmol/L 22-29 [facility] Alanine aminotransferase [Enzymatic activity/volume] in Seru m or Plasma 59 U/L <41 H [facility] Anion gap 3 in Serum or Plasma 10 mmol/L 8-15 [facility] Glomerular filtration rate/1.73 sq M pre dicted among non-blacks [Volume Rate/Area] in Serum or Plasma by Creatinine-based formula (MDRD) >6 0 [facility] Glomerular filtration rate/1.73 sq M pre dicted among blacks [Volume Rate/Area] in Serum or Plasma by Creatinine-based formula (MDRD) >60 [facility] ID Date Data Source [id number] 05/05/2020 09:42:42 AM [facility] Name Value Range Interpretation Code Description Data Beronica rce(s) Supporting Document(s) Magnesium [Mass/volume] in Serum or Plasma 1.5 mg/dL 1.6-2.6 [facility] ID Date Data Source [id number] 05/05/2020 09:42:42 AM [facility] Value Range Interpretation Code Description Data Beronica rce(s) Supporting Document(s) Phosphate [Mass/volume] in Serum or Plasma 3.0 mg/dL 2.5-4.5 [facility] ID Date Data Source [id number] 05/05/2020 08:38:21 AM [facility] Value Range Interpretation Code Description Data Beronica rce(s) Supporting Document(s) Glucose [Mass/volume] in Capillary blood by Glucometer 113 mg/dL 70- 140 [facility] ID Date Data Source [id number] 05/05/2020 06:22:21 AM [facility] Value Range Interpretation Code Description Data Beronica rce(s) Supporting Document(s) Glucose [Mass/volume] in Capillary blood by Glucometer 83 mg/dL 70- 140 [facility] ID Date Data Source [id number] 05/05/2020 05:30:59 AM [facility] Value Range Interpretation Code Description Data Beronica rce(s) Supporting Document(s) Prothrombin time (PT) 22.8 s 12.5-14.9 H [facility] INR in Platelet poor plasma by Coagulation assay 1.97 [facility] Routine intensity oral anticoagulation I NR is typically 2.0-3.0. Target INR must be clinically individualized. ID Date Data Source [id number] 05/04/2020 11:32:14 PM [facility] Value Range Interpretation Code Description Data Beronica rce(s) Supporting Document(s) Glucose [Mass/volume] in Capillary blood by Glucometer 124 mg/dL - 140 [facility] ID Date Data Source [id number] 05/04/2020 10:09:05 PM [facility] Value Range Interpretation Code Description Data Beronica rce(s) Supporting Document(s) Glucose [Mass/volume] in Capillary blood by Glucometer 111 mg/dL 70- 140 [facility] ID Date Data Source [id number] 05/04/2020 09:28:13 PM [facility] Value Range Interpretation Code Description Data Beronica rce(s) Supporting Document(s) Glucose [Mass/volume] in Capillary blood by Glucometer 103 mg/dL - 140 [facility] ID Date Data Source [id number] 05/04/2020 09:12:18 PM [facility] Value Range Interpretation Code Description Data Beronica rce(s) Supporting Document(s) Glucose [Mass/volume] in Capillary blood by Glucometer 66 mg/dL 70- 140 [facility] ID Date Data Source [id number] 05/04/2020 09:12:13 PM [facility] Name Value Range Interpretation Code Description Data Beronica rce(s) Supporting Document(s) Glucose [Mass/volume] in Capillary blood by Glucometer 64 mg/dL 70- 140 [facility] ID Date Data Source [id number] 05/04/2020 04:55:44 PM [facility] Value Range Interpretation Code Description Data Beronica rce(s) Supporting Document(s) Glucose [Mass/volume] in Capillary blood by Glucometer 95 mg/dL 70- 140 [facility] ID Date Data Source [id number] 05/04/2020 12:29:03 PM [facility] Value Range Interpretation Code Description Data Beronica rce(s) Supporting Document(s) Glucose [Mass/volume] in Capillary blood by Glucometer 95 mg/dL 70- 140 [facility] ID Date Data Source [id number] 05/04/2020 10:28:14 AM [facility] Value Range Interpretation Code Description Data Beronica rce(s) Supporting Document(s) Progress Note [facility] GQOSSn5wUmZMUgTp11/DQGbrSPUcu7VvZZfnKAy8NNflIEFxH8QbALH4jX5yWRN3IHiRRoMqWfHwTQY9 lbm [file] AgICAgICAgICAgICAgICAgICAgICAgICAgICAgICAgICAgICAgICAgICAgICAgICAgICAgICAgICAgIC AgICAgICAgICAgICAgICAgICAgICAgDQogICAgICAgICAgICAgICAgICAgICAgICAgICAgICAgICAgIC AgICAgICAgICAgICAgICAgICAgICAgICAgICAgICAg ICAgICAgICAgICAgICAgICAgICAgICAgICAgICAgICAgDQogICAgICAgICAgICAgICAgICAgICAgICAg ICAgICAgICAgICAgICAgICAgICAgICAgICAgICAgICAgICAgICAgICAgICAgICAgICAgICAgICAgICAg ICAgICAgICAgICAgICAgDQogICAgICAgICAgICAgIC AgICAgICAgICAgICAgICAgICAgICAgICAgICAgICAgICAgICAgICAgICAgICAgICAgICAgICAgICAgIC AgICAgICAgICAgICAgICAgICAgICAgICAgDQogICAgICAgICAgICAgICAgICAgICAgICAgICAgICAgIC AgICAgICAgICAgICAgICAgICAgICAgICAgICAgICAg ICAgICAgICAgICAgICAgICAgICAgICAgICAgICAgICAgICAgDQogICAgICAgICAgICAgICAgICAgICAg ICAgICAgICAgICAgICAgICAgICAgICAgICAgICAgICAgICAgICAgICAgICAgICAgICAgICAgICAgICAg ICAgICAgICAgICAgICAgICAgDQogICAgICAgICAgIC AgICAgICAgICAgICAgICAgICAgICAgICAgICAgICAgICAgICAgICAgICAgICAgICAgICAgICAgICAgIC AgICAgICAgICAgICAgICAgICAgICAgICAgICAgDQogICAgICAgICAgICAgICAgICAgICAgICAgICAgIC AgICAgICAgICAgICAgICAgICAgICAgICAgICAgICAg ICAgICAgICAgICAgICAgICAgICAgICAgICAgICAgICAgICAgICAgDQogICAgICAgICAgICAgICAgICAg ICAgICAgICAgICAgICAgICAgICAgICAgICAgICAgICAgICAgICAgICAgICAgICAgICAgICAgICAgICAg ICAgICAgICAgICAgICAgICAgICAgDQogICAgICAgIC AgICAgICAgICAgICAgICAgICAgICAgICAgICAgICAgICAgICAgICAgICAgICAgICAgICAgICAgICAgIC ZrTDDvBWYhQNRuJZCpODWpXEJqUVYdYTDzPOVgFVVgUHb4D0sjZJAvIWDvAW9wWEj2Rd1+DQoNCmVuZH Z0gtUsrL4WQM6fa6FcMLawHCOig8YkFWw2ID9YHCGv NVvpDB0UDFmexr1IFASzCWWzmYDFx5smAoAtEHO9KORlAndiTC4VNMVdL8fpuvFyEDScQGTWMM8CRgKj Z5UnsB10QEPAEp5+QQehsdGbLoaHQsJ0ZWKvb8LhXGi8ME0HSTFuMiqly5VeSeXpCELUVEmxBF5YJGT8 SRUuKBTnGu9OMPIhL420xsUdGD2MAx3BMrTfEM0gkh 2UTkZwHBGoDaaXBbn9QUexQS4ZcCRhLOjUtz3gikPrbsUPk5KohmMrdDFYoxXiYPQtLNAvUKsxIDExJW GaVX1pAG1vZPGsZQPgPhG0GWXRQJ9XSYGmIBEbrQUqKSPpFZQHIE5UEGrbKRW6GVFpmsTjnGIgVRdlWG 9QYXJlbnQgMTkgMCBSDQo+Ob3AVF4ul4FnIKslXNNb SW2gaq9EJUsZRyPhF1B4kRWuK2E0LWxpMd7TYXFwUQNfGFjrTIRNLLzzGW4ZBC3higW7FZ5VfSQfPBQp MUOpbAApFQd2S74oiORvCQdsIM5UILK+Claudia+Qm2EWVEyFDOsVNTrZiLaUVMZArGoD6IfA4CYz9JgF0Vs UZ42pWxaohBmNTujKE8LHP3dNTAjDRZTWO5TiVIlcR 0rnwPkGZNbFKHUVkJbQ46sxOFqAEAbVGK0YWHcWw9PZEQeQ1LdbgMkgTlfqmCzZGTnXRSUZG8UPTzhtq RqhZDcdSbgLA18bVmuVS8UXr7EYwJcJS6xiz1YvIKiWd7VUKFiRv6ODYOtZTIyIGWgDSE8GKTdRpMvLS qoNUXkZZLlLYZ9BBJdAHNeST8JIlWlERLjRJA5XOic DQBiUNEcej2FRPAbFAWeVIS4JnLhBKVpXYBoLYesQCFlNCCaXWQ0KTFzFXDgGR2FZqHuIVYfTGN0AbPy GYOgSPLndc3QKQSfQDUjTCt2SQDaFYThRTIrEMaoNEWsLKHoNqX9YBQxSCSkYN5RPlArWWBaPGW6FkLt CWSeYBSuma6ZGCWzLQWiYcScJFLuJSMqBQTgMSumPI WtUCG2JXguYZTzHISfVU3XKoGmSULbHPAyCoHuFRZaWIHybl0DQAMuGLThJNP8KVKqHPElLHYqCDgpEG FwSSN2VEK4JTSrHERnGC6MUrRqOSBwMNMjJbCbPZYyEHFreo7AVWHlWVQzClW7ECLfLZReQPQiELzeVY GpMLR0QWpyPUJcTJHcSU6TSuMfOKTbDIN4SngmIRXj XHOunx6YGXAuSDMoInTqXxPtXZShAHIzHIboTSOhDQQ4FVE3VWQpPZRpFB6QEkSoJLOgXSl9RdBiRWVa GOPcfl2UOKAgHMJmEXt4UvHbURPoKZKrGBe0fxVdnHNqONw7VS9WZ9HiyuXrImDFGe2Ec398CQAwXKYd Rd5QL8xqUz7xPATiDICFZz0OZOh1N6X3POBnQJX3SP xtLJuyGERiBOLrPDKgJdQ7YCmrAYZ+BQo1MtgaKPWeVgQyJiQvNNYhBMObKrWkCAUlYXC6R8ZyVr3yHP ANCj4+FAhqhMSomJcgPGJREoJ6XZM8TJuvSTCESn5W ID Date Data Source [id number] 05/04/2020 08:02:58 AM [facility] Value Range Interpretation Code Description Data Beronica rce(s) Supporting Document(s) Glucose [Mass/volume] in Capillary blood by Glucometer 71 mg/dL 70- 140 [facility] ID Date Data Source [id number] 05/04/2020 08:02:58 AM [facility] Value Range Interpretation Code Description Data Beronica rce(s) Supporting Document(s) Glucose [Mass/volume] in Capillary blood by Glucometer 66 mg/dL 70- 140 [facility] ID Date Data Source [id number] 05/04/2020 06:31:11 AM [facility] Value Range Interpretation Code Description Data Beronica rce(s) Supporting Document(s) Prothrombin time (PT) 23.3 s 12.5-14.9 [facility] INR in Platelet poor plasma by Coagulation assay 2.03 [facility] Routine intensity oral anticoagulation I NR is typically 2.0-3.0. Target INR must be clinically individualized. ID Date Data Source [id number] 05/04/2020 06:46:06 AM [facility] Value Range Interpretation Code Description Data Beronica rce(s) Supporting Document(s) Bilirubin.direct [Mass/volume] in Serum or Plasma 9.0 mg/dL <0.3 [facility] ID Date Data Source [id number] 05/04/2020 06:46:06 AM [facility] Value Range Interpretation Code Description Data Beronica rce(s) Supporting Document(s) Albumin [Mass/volume] in Serum or Plasma by Bromocresol green (BCG) dye binding method 2.3 g/dL 3.5-[facility].2 [facility] Bil[facility].total [Mass/volume] in Serum or Plasma 13.1 mg/dL <1.2 [facility] Calcium [Mass/volume] in Serum or Plasma 8.3 mg/dL 8.6-10.0 [facility] Chloride [Moles/volume] in Serum or Plasma 99 mmol/L 98-107 [facility] Creatinine [Mass/volume] in Serum or Plasma 0.36 mg/dL 0.70-1.20 L [facility] Icteric Glucose [Mass/volume] in Serum or Plasma 78 mg/dL 70-140 [facility] Alkaline phosphatase [Enzymatic activity/volume] in Serum or Plasma 132 U/L 40-129 [facility] Potassium [Moles/volume] in Serum or Plasma 3.3 mmol/L 3.4-5.1 [facility] Protein [Mass/volume] in Serum or Plasma 6.6 g/dL 6.4-8.3 [facility] Sodium [Moles/volume] in Serum or Plasma 132 mmol/L 136-145 [facility] Aspartate aminotransferase [Enzymatic activity/volume] in Serum or Plasma 106 U/L <40 [facility] Urea nitrogen [Mass/volume] in Serum or Plasma 5 mg/dL 6-20 [facility] Osmolality of Serum or Plasma by calculation 270 mosm/kg 275-300 [facility] Creatinine/Urea nitrogen [Mass Ratio] in Serum or Plasma 14 [facility] Bicarbonate [Moles/volume] in Serum 24 mmol/L 22-29 [facility] Alanine aminotransferase [Enzymatic activity/volume] in Seru m or Plasma 52 U/L <41 [facility] Anion gap 3 in Serum or Plasma 9 mmol/L 8-15 [facility] Glomerular filtration rate/1.73 sq M pre dicted among non-blacks [Volume Rate/Area] in Serum or Plasma by Creatinine-based formula (MDRD) >6 0 [facility] Glomerular filtration rate/1.73 sq M pre dicted among blacks [Volume Rate/Area] in Serum or Plasma by Creatinine-based formula (MDRD) >60 [facility] ID Date Data Source [id number] 05/03/2020 09:09:56 PM [facility] Name Value Range Interpretation Code Description Data Beronica rce(s) Supporting Document(s) Glucose [Mass/volume] in Capillary blood by Glucometer 138 mg/dL 70- 140 [facility] ID Date Data Source [id number] 05/03/2020 05:02:09 PM [facility] Name Value Range Interpretation Code Description Data Beronica rce(s) Supporting Document(s) Glucose [Mass/volume] in Capillary blood by Glucometer 121 mg/dL 70- 140 [facility] ID Date Data Source [id number] 05/03/2020 02:35:41 PM [facility] US RENAL OR AORTA COMPLETE [id number] RE SULTInterpreted by:Dudley Pastrana, MDPROCEDURE INFORMATION: Exam: [...] kidneys and bladder. COMPARISON: US ABDOMEN LIMITED [id number] PORTABLE 04/28/2020 12:59 PM FINDINGS: Liver: There [...] rce(s) Supporting Document(s) ID Date Data Source [id number] 05/03/2020 12:25:08 PM [facility] Value Range Interpretation Code Description Data Beronica rce(s) Supporting Document(s) Glucose [Mass/volume] in Capillary blood by Glucometer 89 mg/dL 70- 140 [facility] ID Date Data Source [id number] 05/03/2020 10:26:00 AM [facility] Value Range Interpretation Code Description Data Beronica rce(s) Supporting Document(s) Glucose [Mass/volume] in Capillary blood by Glucometer 119 mg/dL 70- 140 [facility] ID Date Data Source [id number] 05/03/2020 08:57:45 AM [facility] Value Range Interpretation Code Description Data Beronica rce(s) Supporting Document(s) Glucose [Mass/volume] in Capillary blood by Glucometer 88 mg/dL 70- 140 [facility] ID Date Data Source [id number] 05/03/2020 08:23:52 AM [facility] Value Range Interpretation Code Description Data Beronica rce(s) Supporting Document(s) Glucose [Mass/volume] in Capillary blood by Glucometer 65 mg/dL 70- 140 [facility] ID Date Data Source [id number] 05/03/2020 04:40:11 AM [facility] Name Value Range Interpretation Code Description Data Beronica rce(s) Supporting Document(s) Prothrombin time (PT) 22.1 s 12.5-14.9 H [facility] INR in Platelet poor plasma by Coagulation assay 1.90 [facility] Routine intensity oral anticoagulation I NR is typically 2.0-3.0. Target INR must be clinically individualized. ID Date Data Source [id number] 05/03/2020 05:45:43 AM [facility] Value Range Interpretation Code Description Data Beronica rce(s) Supporting Document(s) Bilirubin.direct [Mass/volume] in Serum or Plasma 9.0 mg/dL <0.3 [facility] ID Date Data Source [id number] 05/03/2020 05:45:43 AM [facility] Value Range Interpretation Code Description Data Beronica rce(s) Supporting Document(s) Albumin [Mass/volume] in Serum or Plasma by Bromocresol green (BCG) dye binding method 2.4 g/dL 3.5-5.2 [facility] Bilirubin.total [Mass/volume] in Serum or Plasma 14.3 mg/dL <1.2 [facility] Calcium [Mass/volume] in Serum or Plasma 8.2 mg/dL 8.6-10.0 [facility] Chloride [Moles/volume] in Serum or Plasma 98 mmol/L 98-107 [facility] Creatinine [Mass/volume] in Serum or Plasma 0.21 mg/dL 0.70-1.20 L [facility] Icteric Glucose [Mass/volume] in Serum or Plasma 79 mg/dL 70-140 [facility] Alkaline phosphatase [Enzymatic activity/volume] in Serum or Plasma 135 U/L 40-129 [facility] Potassium [Moles/volume] in Serum or Plasma 3.5 mmol/L 3.4-5.1 [facility] Protein [Mass/volume] in Serum or Plasma 7.5 g/dL 6.4-8.3 [facility] Sodium [Moles/volume] in Serum or Plasma 130 mmol/L 136-145 [facility] Aspartate aminotransferase [Enzymatic activity/volume] in Serum or Plasma 113 U/L <40 [facility] Urea nitrogen [Mass/volume] in Serum or Plasma 5 mg/dL 6-20 [facility] Osmolality of Serum or Plasma by calculation 266 mosm/kg 275-300 [facility] Creatinine/Urea nitrogen [Mass Ratio] in Serum or Plasma 22 [facility] Bicarbonate [Moles/volume] in Serum 23 mmol/L 22-29 [facility] Alanine aminotransferase [Enzymatic activity/volume] in Seru m or Plasma 53 U/L <41 [facility] Anion gap 3 in Serum or Plasma 9 mmol/L 8-15 [facility] Glomerular filtration rate/1.73 sq M pre dicted among non-blacks [Volume Rate/Area] in Serum or Plasma by Creatinine-based formula (MDRD) >6 0 [facility] Glomerular filtration rate/1.73 sq M pre dicted among blacks [Volume Rate/Area] in Serum or Plasma by Creatinine-based formula (MDRD) >60 [facility] ID Date Data Source [id number] 05/03/2020 05:45:43 AM [facility] Name Value Range Interpretation Code Description Data Beronica rce(s) Supporting Document(s) Phosphate [Mass/volume] in Serum or Plasma 3.1 mg/dL 2.5-4.5 [facility] ID Date Data Source [id number] 05/02/2020 05:04:51 PM [facility] Value Range Interpretation Code Description Data Beronica rce(s) Supporting Document(s) Glucose [Mass/volume] in Capillary blood by Glucometer 133 mg/dL 70- 140 [facility] ID Date Data Source [id number] 05/02/2020 03:22:46 PM [facility] Value Range Interpretation Code Description Data Beronica rce(s) Supporting Document(s) Color of Urine [facility] Clarity of Urine [facility] Specific gravity of Urine by Refractometry automated 1.003 1.003 -1.030 [facility] pH of Urine by Automated test strip 7.0 5.0-8.0 [facility] Protein [Mass/volume] in Urine by Automated test strip Neg [facility] Glucose [Mass/volume] in Urine by Automated test strip Neg [facility] Ketones [Mass/volume] in Urine by Automated test strip Neg [facility] Bilirubin.total [Presence] in Urine by Automated test strip Negative [facility] False-positive results may occur with ce rtain food additives or medications. Hemoglobin [Presence] in Urine by Automated test strip Neg ative A [facility] Leukocyte esterase [Presence] in Urine by Automated test strip Negative [facility] Nitrite [Presence] in Urine by Automated test strip Negati ve [facility] Leukocytes [#/area] in Urine sediment by Automated count 0 -5 [facility] Erythrocytes [#/area] in Urine sediment by Automated count 7 /HPF 0-3 H [facility] Service comment [facility] ID Date Data Source [id number] 05/02/2020 12:32:18 PM [facility] Value Range Interpretation Code Description Data Beronica rce(s) Supporting Document(s) Glucose [Mass/volume] in Capillary blood by Glucometer 116 mg/dL 70- 140 [facility] ID Date Data Source [id number] 05/02/2020 08:28:17 AM [facility] Value Range Interpretation Code Description Data Beronica rce(s) Supporting Document(s) Glucose [Mass/volume] in Capillary blood by Glucometer 77 mg/dL 70- 140 [facility] ID Date Data Source [id number] 05/02/2020 04:09:22 AM [facility] Value Range Interpretation Code Description Data Beronica rce(s) Supporting Document(s) Prothrombin time (PT) 24.2 s 12.5-14.9 H [facility] INR in Platelet poor plasma by Coagulation assay 2.13 [facility] Routine intensity oral anticoagulation I NR is typically 2.0-3.0. Target INR must be clinically individualized. ID Date Data Source [id number] 05/02/2020 04:18:36 AM [facility] Value Range Interpretation Code Description Data Beronica rce(s) Supporting Document(s) Bilirubin.direct [Mass/volume] in Serum or Plasma 8.3 mg/dL <0.3 [facility] ID Date Data Source [id number] 05/02/2020 04:18:36 AM [facility] Value Range Interpretation Code Description Data Beronica rce(s) Supporting Document(s) Albumin [Mass/volume] in Serum or Plasma by Bromocresol green (BCG) dye binding method 2.2 g/dL 3.5-5.2 [facility] Bilirubin.total [Mass/volume] in Serum or Plasma 12.3 mg/dL <1.2 [facility] Calcium [Mass/volume] in Serum or Plasma 6.2 mg/dL 8.6-10.0 L [facility] Chloride [Moles/volume] in Serum or Plasma 102 mmol/L 98-107 [facility] Creatinine [Mass/volume] in Serum or Plasma 0.44 mg/dL 0.70-1.20 [facility] Icteric Glucose [Mass/volume] in Serum or Plasma 83 mg/dL 70-140 [facility] Alkaline phosphatase [Enzymatic activity/volume] in Serum or Plasma 126 U/L 40-129 [facility] Potassium [Moles/volume] in Serum or Plasma 3.3 mmol/L 3.4-5.1 L [facility] Protein [Mass/volume] in Serum or Plasma 6.5 g/dL 6.4-8.3 [facility] Sodium [Moles/volume] in Serum or Plasma 135 mmol/L 136-145 [facility] Aspartate aminotransferase [Enzymatic activity/volume] in Serum or Plasma 93 U/L <40 [facility] Urea nitrogen [Mass/volume] in Serum or Plasma 4 mg/dL 6-20 [facility] Osmolality of Serum or Plasma by calculation 276 mosm/kg 275-300 [facility] Creatinine/Urea nitrogen [Mass Ratio] in Serum or Plasma 10 [facility] Bicarbonate [Moles/volume] in Serum 25 mmol/L 22-29 [facility] Alanine aminotransferase [Enzymatic activity/volume] in Seru m or Plasma 42 U/L <41 [facility] Anion gap 3 in Serum or Plasma 8 mmol/L 8-15 [facility] Glomerular filtration rate/1.73 sq M pre dicted among non-blacks [Volume Rate/Area] in Serum or Plasma by Creatinine-based formula (MDRD) >6 0 [facility] Glomerular filtration rate/1.73 sq M pre dicted among blacks [Volume Rate/Area] in Serum or Plasma by Creatinine-based formula (MDRD) >60 [facility] ID Date Data Source [id number] 05/02/2020 04:18:36 AM EDT [facility] Name Value Range Interpretation Code Description Data Beronica rce(s) Supporting Document(s) Magnesium [Mass/volume] in Serum or Plasma 1.6 mg/dL 1.6-2.6 [facility] ID Date Data Source [id number] 05/02/2020 04:18:36 AM [facility] Value Range Interpretation Code Description Data Beronica rce(s) Supporting Document(s) Phosphate [Mass/volume] in Serum or Plasma 2.8 mg/dL 2.5-4.5 [facility] ID Date Data Source [id number] 05/01/2020 09:29:52 PM [facility] Value Range Interpretation Code Description Data Beronica rce(s) Supporting Document(s) Glucose [Mass/volume] in Capillary blood by Glucometer 151 mg/dL 70- 140 [facility] ID Date Data Source [id number] 05/01/2020 05:38:50 PM [facility] Value Range Interpretation Code Description Data Beronica rce(s) Supporting Document(s) Glucose [Mass/volume] in Capillary blood by Glucometer 112 mg/dL 70- 140 [facility] ID Date Data Source [id number] 05/01/2020 12:22:05 PM [facility] Value Range Interpretation Code Description Data Beronica rce(s) Supporting Document(s) Glucose [Mass/volume] in Capillary blood by Glucometer 96 mg/dL 70- 140 [facility] ID Date Data Source [id number] 05/01/2020 10:25:19 AM [facility] Value Range Interpretation Code Description Data Beronica rce(s) Supporting Document(s) Albumin [Mass/volume] in Serum or Plasma by Bromocresol green (BCG) dye binding method 2.5 g/dL 3.5-5.2 [facility] Bilirubin.total [Mass/volume] in Serum or Plasma 14.5 mg/dL <1.2 [facility] Calcium [Mass/volume] in Serum or Plasma 8.4 mg/dL 8.6-10.0 L [facility] Chloride [Moles/volume] in Serum or Plasma 97 mmol/L 98-107 [facility] Creatinine [Mass/volume] in Serum or Plasma 0.36 mg/dL 0.70-1.20 L [facility] Icteric Glucose [Mass/volume] in Serum or Plasma 105 mg/dL 70-140 [facility] Alkaline phosphatase [Enzymatic activity/volume] in Serum or Plasma 155 U/L 40-129 [facility] Potassium [Moles/volume] in Serum or Plasma 3.2 mmol/L 3.4-5.1 L [facility] Protein [Mass/volume] in Serum or Plasma 7.3 g/dL 6.4-8.3 [facility] Sodium [Moles/volume] in Serum or Plasma 130 mmol/L 136-145 [facility] Aspartate aminotransferase [Enzymatic activity/volume] in Serum or Plasma 106 U/L <40 H [facility] Urea nitrogen [Mass/volume] in Serum or Plasma 4 mg/dL 6-20 [facility] Osmolality of Serum or Plasma by calculation 267 mosm/kg 275-300 [facility] Creatinine/Urea nitrogen [Mass Ratio] in Serum or Plasma 12 [facility] Bicarbonate [Moles/volume] in Serum 24 mmol/L 22-29 [facility] Alanine aminotransferase [Enzymatic activity/volume] in Seru m or Plasma 46 U/L <41 [facility] Anion gap 3 in Serum or Plasma 9 mmol/L 8-15 [facility] Glomerular filtration rate/1.73 sq M pre dicted among non-blacks [Volume Rate/Area] in Serum or Plasma by Creatinine-based formula (MDRD) >6 0 [facility] Glomerular filtration rate/1.73 sq M pre dicted among blacks [Volume Rate/Area] in Serum or Plasma by Creatinine-based formula (MDRD) >60 [facility] ID Date Data Source [id number] 05/01/2020 08:22:07 AM [facility] Name Value Range Interpretation Code Description Data Beronica rce(s) Supporting Document(s) Glucose [Mass/volume] in Capillary blood by Glucometer 71 mg/dL 70- 140 [facility] ID Date Data Source [id number] 05/01/2020 05:33:32 AM [facility] Value Range Interpretation Code Description Data Beronica rce(s) Supporting Document(s) Prothrombin time (PT) 21.4 s 12.5-14.9 H [facility] INR in Platelet poor plasma by Coagulation assay 1.82 [facility] Routine intensity oral anticoagulation I NR is typically 2.0-3.0. Target INR must be clinically individualized. ID Date Data Source [id number] 05/01/2020 05:37:58 AM [facility] Value Range Interpretation Code Description Data Beronica rce(s) Supporting Document(s) Magnesium [Mass/volume] in Serum or Plasma 1.5 mg/dL 1.6-2.6 L [facility] ID Date Data Source [id number] 05/01/2020 05:37:58 AM [facility] Value Range Interpretation Code Description Data Beronica rce(s) Supporting Document(s) Phosphate [Mass/volume] in Serum or Plasma 2.6 mg/dL 2.5-4.5 [facility] ID Date Data Source [id number] 04/30/2020 09:11:55 PM [facility] Value Range Interpretation Code Description Data Beronica rce(s) Supporting Document(s) Glucose [Mass/volume] in Capillary blood by Glucometer 87 mg/dL 70- 140 [facility] ID Date Data Source [id number] 04/30/2020 05:04:15 PM [facility] Value Range Interpretation Code Description Data Beronica rce(s) Supporting Document(s) Glucose [Mass/volume] in Capillary blood by Glucometer 98 mg/dL 70- 140 [facility] ID Date Data Source [id number] 04/30/2020 04:20:06 PM [facility] Value Range Interpretation Code Description Data Beronica rce(s) Supporting Document(s) Magnesium [Mass/volume] in Serum or Plasma 1.6 mg/dL 1.6-2.6 [facility] ID Date Data Source [id number] 04/30/2020 04:08:24 PM [facility] Value Range Interpretation Code Description Data Beronica rce(s) Supporting Document(s) Calcium.ionized [Moles/volume] in Arterial blood 1.10 mmol/L 1.13-1.3 2 [facility] ID Date Data Source [id number] 04/30/2020 12:28:31 PM [facility] Value Range Interpretation Code Description Data Beronica rce(s) Supporting Document(s) Glucose [Mass/volume] in Capillary blood by Glucometer 96 mg/dL 70- 140 [facility] ID Date Data Source [id number] 04/[facility] Code Description Data Beronica rce(s) Supporting Document(s) Glucose [Mass/volume] in Capillary blood by Glucometer 88 mg/dL 70- 140 [facility] ID Date Data Source [id number] 04/30/2020 08:28:33 AM [facility] Name Value Range Interpretation Code Description Data Beronica rce(s) Supporting Document(s) Glucose [Mass/volume] in Capillary blood by Glucometer 90 mg/dL 70- 140 [facility] ID Date Data Source [id number] 04/30/2020 06:44:33 AM [facility] Name Value Range Interpretation Code Description Data Beronica rce(s) Supporting Document(s) Bicarbonate [Moles/volume] in Serum 24 mmol/L 22-29 [facility] Chloride [Moles/volume] in Serum or Plasma 101 mmol/L 98-107 [facility] Creatinine [Mass/volume] in Serum or Plasma 0.27 mg/dL 0.70-1.20 L [facility] Icteric Glucose [Mass/volume] in Serum or Plasma 79 mg/dL 70-140 [facility] Potassium [Moles/volume] in Serum or Plasma 3.6 mmol/L 3.4-5.1 [facility] Sodium [Moles/volume] in Serum or Plasma 133 mmol/L 136-145 L [facility] Urea nitrogen [Mass/volume] in Serum or Plasma 4 mg/dL 6-20 L [facility] Anion gap 3 in Serum or Plasma 9 mmol/L 8-15 [facility] Osmolality of Serum or Plasma by calculation 272 mosm/kg 275-300 L [facility] Creatinine/Urea nitrogen [Mass Ratio] in Serum or Plasma 13 [facility] Calcium [Mass/volume] in Serum or Plasma 7.7 mg/dL 8.6-10.0 L [facility] Glomerular filtration rate/1.73 sq M pre dicted among non-blacks [Volume Rate/Area] in Serum or Plasma by Creatinine-based formula (MDRD) >6 0 [facility] Glomerular filtration rate/1.73 sq M pre dicted among blacks [Volume Rate/Area] in Serum or Plasma by Creatinine-based formula (MDRD) >60 [facility] ID Date Data Source [id number] 04/30/2020 06:44:33 AM [facility] Value Range Interpretation Code Description Data Beronica rce(s) Supporting Document(s) Magnesium [Mass/volume] in Serum or Plasma 1.7 mg/dL 1.6-2.6 [facility] ID Date Data Source [id number] 04/30/2020 06:57:05 AM [facility] Value Range Interpretation Code Description Data Beronica rce(s) Supporting Document(s) Prothrombin time (PT) 23.2 s 12.5-14.9 H [facility] INR in Platelet poor plasma by Coagulation assay 2.02 [facility] Routine intensity oral anticoagulation I NR is typically 2.0-3.0. Target INR must be clinically individualized. ID Date Data Source [id number] 04/30/2020 07:24:53 AM [facility] Value Range Interpretation Code Description Data Beronica rce(s) Supporting Document(s) Albumin [Mass/volume] in Serum or Plasma by Bromocresol green (BCG) dye binding method 2.2 g/dL 3.5-5.2 [facility] Bilirubin.total [Mass/volume] in Serum or Plasma 13.0 mg/dL <1.2 H [facility] Bilirubin.direct [Mass/volume] in Serum or Plasma 8.6 mg/dL <0.3 H [facility] Alkaline phosphatase [Enzymatic activity/volume] in Serum or Plasma 143 U/L 40-129 [facility] Aspartate aminotransferase [Enzymatic activity/volume] in Serum or Plasma 108 U/L <40 H [facility] Alanine aminotransferase [Enzymatic activity/volume] in Seru m or Plasma 39 U/L <41 [facility] Protein [Mass/volume] in Serum or Plasma 6.5 g/dL 6.4-8.3 [facility] ID Date Data Source [id number] 04/30/2020 07:24:53 AM [facility] Value Range Interpretation Code Description Data Beronica rce(s) Supporting Document(s) Phosphate [Mass/volume] in Serum or Plasma 2.4 mg/dL 2.5-4.5 L [facility] ID Date Data Source [id number] 04/29/2020 06:20:20 PM [facility] Value Range Interpretation Code Description Data Beronica rce(s) Supporting Document(s) Bicarbonate [Moles/volume] in Serum 22 mmol/L 22-29 [facility] Chloride [Moles/volume] in Serum or Plasma 100 mmol/L 98-107 [facility] Creatinine [Mass/volume] in Serum or Plasma 0.31 mg/dL 0.70-1.20 L [facility] Icteric Glucose [Mass/volume] in Serum or Plasma 175 mg/dL 70-140 H [facility] Potassium [Moles/volume] in Serum or Plasma 3.9 mmol/L 3.4-5.1 [facility] Sodium [Moles/volume] in Serum or Plasma 130 mmol/L 136-145 L [facility] Urea nitrogen [Mass/volume] in Serum or Plasma 3 mg/dL 6-20 L [facility] Anion gap 3 in Serum or Plasma 9 mmol/L 8-15 [facility] Osmolality of Serum or Plasma by calculation 271 mosm/kg 275-300 L [facility] Creatinine/Urea nitrogen [Mass Ratio] in Serum or Plasma 10 [facility] Calcium [Mass/volume] in Serum or Plasma 7.9 mg/dL 8.6-10.0 L [facility] Glomerular filtration rate/1.73 sq M pre dicted among non-blacks [Volume Rate/Area] in Serum or Plasma by Creatinine-based formula (MDRD) >6 0 [facility] Glomerular filtration rate/1.73 sq M pre dicted among blacks [Volume Rate/Area] in Serum or Plasma by Creatinine-based formula (MDRD) >60 [facility] ID Date Data Source [id number] 04/29/2020 06:20:20 PM EDT [facility] Value Range Interpretation Code Description Data Beronica rce(s) Supporting Document(s) Magnesium [Mass/volume] in Serum or Plasma 1.8 mg/dL 1.6-2.6 [facility] ID Date Data Source [id number] 04/29/2020 05:02:58 PM EDT [facility] Value Range Interpretation Code Description Data Beronica rce(s) Supporting Document(s) Glucose [Mass/volume] in Capillary blood by Glucometer 128 mg/dL 70- 140 [facility] ID Date Data Source [id number] 04/29/2020 04:25:37 PM EDT [facility] Value Range Interpretation Code Description Data Beronica rce(s) Supporting Document(s) [facility] [id number] [file] supervisor [id number] [file] [id number] ID Date Data Source [id number] [facility] Interpretation Code Description Data Beronica rce(s) Supporting Document(s) Glucose [Mass/volume] in Capillary blood by Glucometer 85 mg/dL 70- 140 [facility] ID Date Data Source [id number] 04/29/2020 08:28:10 AM [facility] Name Value Range Interpretation Code Description Data Beronica rce(s) Supporting Document(s) Glucose [Mass/volume] in Capillary blood by Glucometer 71 mg/dL 70- 140 [facility] ID Date Data Source [id number] 04/29/2020 06:52:27 AM [facility] Value Range Interpretation Code Description Data Beronica rce(s) Supporting Document(s) Albumin [Mass/volume] in Serum or Plasma by Bromocresol green (BCG) dye binding method 2.1 g/dL 3.5-5.2 [facility] Bilirubin.total [Mass/volume] in Serum or Plasma 12.9 mg/dL <1.2 H [facility] Calcium [Mass/volume] in Serum or Plasma 7.6 mg/dL 8.6-10.0 L [facility] Chloride [Moles/volume] in Serum or Plasma 105 mmol/L 98-107 [facility] Creatinine [Mass/volume] in Serum or Plasma 0.34 mg/dL 0.70-1.20 L [facility] Icteric Glucose [Mass/volume] in Serum or Plasma 77 mg/dL 70-140 [facility] Alkaline phosphatase [Enzymatic activity/volume] in Serum or Plasma 147 U/L 40-129 H [facility] Potassium [Moles/volume] in Serum or Plasma 3.4 mmol/L 3.4-5.1 [facility] Protein [Mass/volume] in Serum or Plasma 6.4 g/dL 6.4-8.3 [facility] Sodium [Moles/volume] in Serum or Plasma 135 mmol/L 136-145 L [facility] Aspartate aminotransferase [Enzymatic activity/volume] in Serum or Plasma 122 U/L <40 H [facility] Urea nitrogen [Mass/volume] in Serum or Plasma 3 mg/dL 6-20 L [facility] Osmolality of Serum or Plasma by calculation 275 mosm/kg 275-300 [facility] Creatinine/Urea nitrogen [Mass Ratio] in Serum or Plasma 8 [facility] Bicarbonate [Moles/volume] in Serum 23 mmol/L 22-29 [facility] Alanine aminotransferase [Enzymatic activity/volume] in Seru m or Plasma 42 U/L <41 H [facility] Anion gap 3 in Serum or Plasma 7 mmol/L 8-15 L [facility] Glomerular filtration rate/1.73 sq M pre dicted among non-blacks [Volume Rate/Area] in Serum or Plasma by Creatinine-based formula (MDRD) >6 0 [facility] Glomerular filtration rate/1.73 sq M pre dicted among blacks [Volume Rate/Area] in Serum or Plasma by Creatinine-based formula (MDRD) >60 [facility] ID Date Data Source [id number] 04/29/2020 07:23:40 AM EDT [facility] Name Value Range Interpretation Code Description Data Beronica rce(s) Supporting Document(s) Leukocytes [#/volume] in Blood by Automated count 4.7 10*3/uL 4-10 [facility] Erythrocytes [#/volume] in Blood by Automated count 2.79 10*6/uL 4.6- 6.1 [facility] Hemoglobin [Mass/volume] in Blood 10.1 g/dL 13.5-18 [facility] Hematocrit [Volume Fraction] of Blood by Automated count 29.4 % 4 1-53 [facility] Erythrocyte mean corpuscular volume [Entitic volume] b y Automated count 105.1 fL 80-96 H [facility] Erythrocyte mean corpuscular hemoglobin [Entitic mass] by Automated count 36.2 pg 27-33 H [facility] Erythrocyte mean corpuscular hemoglobin concentration [Mass/volume] by Automated count 34.5 g/dL 32.0-36.0 [facility] Erythrocyte distribution width [Ratio] by Automated count 16.0 % 11.5-14.5 [facility] Platelets [#/volume] in Blood by Automated count 73 10*3/uL 150-400 [facility] Differential cell count method - Blood [facility] Neutrophils/100 leukocytes in Blood by Automated count 71 % [facility] Lymphocytes/100 leukocytes in Blood by Automated count 21 % [facility] Monocytes/100 leukocytes in Blood by Automated count 5 % [facility] Eosinophils/100 leukocytes in Blood by Automated count 1 % [facility] Neutrophils [#/volume] in Blood by Automated count 3.55 10*3/uL 1.8-7 .0 [facility] Lymphocytes [#/volume] in Blood by Automated count 1.05 10*3/uL 1.2-4 .0 L [facility] Monocytes [#/volume] in Blood by Automated count 0.25 10*3/uL 0-0.8 [facility] Eosinophils [#/volume] in Blood by Automated count 0.05 10*3/uL 0-0.5 [facility] Nucleated erythrocytes/100 leukocytes [Ratio] in Blood by Automated count 1 /100{WBCs} 0-0 H [facility] Variant lymphocytes/100 leukocytes in Blood by Manual count 1 % [facility] Myelocytes/100 leukocytes in Blood by Manual count 1 % [facility] Lymphocytes [#/volume] in Blood 0.05 10*3/uL 0 H [facility] Myelocytes [#/volume] in Blood by Manual count 0.05 10*3/uL 0-0 H [facility] Macrocytes [Presence] in Blood by Light microscopy [facility] Anisocytosis [Presence] in Blood by Light microscopy [facility] Target cells [Presence] in Blood by Light microscopy [facility] ID Date Data Source [id number] 04/29/2020 04:49:39 AM [facility] Value Range Interpretation Code Description Data Beronica rce(s) Supporting Document(s) Prothrombin time (PT) 23.1 s 12.5-14.9 H [facility] INR in Platelet poor plasma by Coagulation assay 2.00 [facility] Routine intensity oral anticoagulation I NR is typically 2.0-3.0. Target INR must be clinically individualized. ID Date Data Source [id number] 04/28/2020 11:00:55 PM [facility] Value Range Interpretation Code Description Data Beronica rce(s) Supporting Document(s) Bicarbonate [Moles/volume] in Serum 21 mmol/L 22-29 L [facility] Chloride [Moles/volume] in Serum or Plasma 106 mmol/L 98-107 [facility] Creatinine [Mass/volume] in Serum or Plasma 0.31 mg/dL 0.70-1.20 L [facility] Icteric Glucose [Mass/volume] in Serum or Plasma 102 mg/dL 70-140 [facility] Potassium [Moles/volume] in Serum or Plasma 3.9 mmol/L 3.4-5.1 [facility] Sodium [Moles/volume] in Serum or Plasma 136 mmol/L 136-145 [facility] Urea nitrogen [Mass/volume] in Serum or Plasma 2 mg/dL 6-20 [facility] Anion gap 3 in Serum or Plasma 9 mmol/L 8-15 [facility] Osmolality of Serum or Plasma by calculation 279 mosm/kg 275-300 [facility] Creatinine/Urea nitrogen [Mass Ratio] in Serum or Plasma 8 [facility] Calcium [Mass/volume] in Serum or Plasma 7.3 mg/dL 8.6-10.0 L [facility] Glomerular filtration rate/1.73 sq M pre dicted among non-blacks [Volume Rate/Area] in Serum or Plasma by Creatinine-based formula (MDRD) >6 0 [facility] Glomerular filtration rate/1.73 sq M pre dicted among blacks [Volume Rate/Area] in Serum or Plasma by Creatinine-based formula (MDRD) >60 [facility] ID Date Data Source [id number] 04/28/2020 11:00:55 PM [facility] Name Value Range Interpretation Code Description Data Beronica rce(s) Supporting Document(s) Magnesium [Mass/volume] in Serum or Plasma 1.7 mg/dL 1.6-2.6 [facility] ID Date Data Source [id number] 04/28/2020 08:58:54 PM EDT [facility] Name Value Range Interpretation Code Description Data Beronica rce(s) Supporting Document(s) Glucose [Mass/volume] in Capillary blood by Glucometer 123 mg/dL 70- 140 [facility] ID Date Data Source [id number] 04/28/2020 05:22:49 PM [facility] Value Range Interpretation Code Description Data Beronica rce(s) Supporting Document(s) Glucose [Mass/volume] in Capillary blood by Glucometer 135 mg/dL 70- 140 [facility] ID Date Data Source [id number] 04/28/2020 01:56:51 PM [facility] US ABDOMEN LIMITED [id number] RESULTInte rpreted by:JAYSON ThorpeLINICAL HISTORY:49-year-old male with [...] rce(s) Supporting Document(s) ID Date Data Source [id number] 04/28/2020 12:39:33 PM [facility] Name Value Range Interpretation Code Description Data Beronica rce(s) Supporting Document(s) Glucose [Mass/volume] in Capillary blood by Glucometer 113 mg/dL 70- 140 [facility] ID Date Data Source [id number] 04/28/2020 08:37:14 AM [facility] Value Range Interpretation Code Description Data Beronica rce(s) Supporting Document(s) Glucose [Mass/volume] in Capillary blood by Glucometer 95 mg/dL 70- 140 [facility] ID Date Data Source [id number] 04/28/2020 08:59:42 AM [facility] Value Range Interpretation Code Description Data Beronica rce(s) Supporting Document(s) Albumin [Mass/volume] in Serum or Plasma by Bromocresol green (BCG) dye binding method 2.3 g/dL 3.5-5.2 [facility] Bilirubin.total [Mass/volume] in Serum or Plasma 14.5 mg/dL <1.2 H [facility] Bilirubin.direct [Mass/volume] in Serum or Plasma 10.0 mg/dL <0.3 H [facility] Alkaline phosphatase [Enzymatic activity/volume] in Serum or Plasma 155 U/L 40-129 H [facility] Aspartate aminotransferase [Enzymatic activity/volume] in Serum or Plasma 177 U/L <40 H [facility] Alanine aminotransferase [Enzymatic activity/volume] in Seru m or Plasma 49 U/L <41 H [facility] Protein [Mass/volume] in Serum or Plasma 6.6 g/dL 6.4-8.3 [facility] ID Date Data Source [id number] 04/28/2020 08:59:43 AM [facility] Name Value Range Interpretation Code Description Data Beronica rce(s) Supporting Document(s) Magnesium [Mass/volume] in Serum or Plasma 1.8 mg/dL 1.6-2.6 [facility] ID Date Data Source [id number] 04/28/2020 08:59:43 AM [facility] Name Value Range Interpretation Code Description Data Beronica rce(s) Supporting Document(s) Bicarbonate [Moles/volume] in Serum 23 mmol/L 22-29 [facility] Chloride [Moles/volume] in Serum or Plasma 101 mmol/L 98-107 [facility] Creatinine [Mass/volume] in Serum or Plasma 0.24 mg/dL 0.70-1.20 [facility] Icteric Glucose [Mass/volume] in Serum or Plasma 105 mg/dL 70-140 [facility] Potassium [Moles/volume] in Serum or Plasma 3.3 mmol/L 3.4-5.1 L [facility] Sodium [Moles/volume] in Serum or Plasma 134 mmol/L 136-145 L [facility] Urea nitrogen [Mass/volume] in Serum or Plasma 2 mg/dL 6-20 L [facility] Anion gap 3 in Serum or Plasma 9 mmol/L 8-15 [facility] Osmolality of Serum or Plasma by calculation 275 mosm/kg 275-300 [facility] Creatinine/Urea nitrogen [Mass Ratio] in Serum or Plasma 8 [facility] Calcium [Mass/volume] in Serum or Plasma 7.5 mg/dL 8.6-10.0 L [facility] Glomerular filtration rate/1.73 sq M pre dicted among non-blacks [Volume Rate/Area] in Serum or Plasma by Creatinine-based formula (MDRD) >6 0 [facility] Glomerular filtration rate/1.73 sq M pre dicted among blacks [Volume Rate/Area] in Serum or Plasma by Creatinine-based formula (MDRD) >60 [facility] ID Date Data Source [id number] 04/28/2020 09:29:46 AM EDT [facility] Name Value Range Interpretation Code Description Data Beronica rce(s) Supporting Document(s) Leukocytes [#/volume] in Blood by Automated count 5.6 10*3/uL 4-10 [facility] Erythrocytes [#/volume] in Blood by Automated count 2.85 10*6/uL 4.6- 6.1 L [facility] Hemoglobin [Mass/volume] in Blood 10.4 g/dL 13.5-18 L [facility] Hematocrit [Volume Fraction] of Blood by Automated count 30.1 % 4 1-53 L [facility] Erythrocyte mean corpuscular volume [Entitic volume] b y Automated count 105.4 fL 80-96 H [facility] Erythrocyte mean corpuscular hemoglobin [Entitic mass] by Automated count 36.4 pg 27-33 H [facility] Erythrocyte mean corpuscular hemoglobin concentration [Mass/volume] by Automated count 34.5 g/dL 32.0-36.0 [facility] E[facility]th[facility] distribution width [Ratio] by Automated count 16.4 % 11.5-14.5 [facility] Platelets [#/volume] in Blood by Automated count 67 10*3/uL 150-400 L [facility] Differential cell count method - Blood [facility] Neutrophils/100 leukocytes in Blood by Automated count 79 % [facility] Lymphocytes/100 leukocytes in Blood by Automated count 12 % [facility] Monocytes/100 leukocytes in Blood by Automated count 6 % [facility] Basophils/100 leukocytes in Blood by Automated count 1 % [facility] Neutrophils [#/volume] in Blood by Automated count 4.50 10*3/uL 1.8-7 .0 [facility] Lymphocytes [#/volume] in Blood by Automated count 0.68 10*3/uL 1.2-4 .0 L [facility] Monocytes [#/volume] in Blood by Automated count 0.34 10*3/uL 0-0.8 [facility] Basophils [#/volume] in Blood by Automated count 0.06 10*3/uL 0-0.2 [facility] Variant lymphocytes/100 leukocytes in Blood by Manual count 2 % [facility] Lymphocytes [#/volume] in Blood 0.11 10*3/uL 0 H [facility] Macrocytes [Presence] in Blood by Light microscopy [facility] Anisocytosis [Presence] in Blood by Light microscopy [facility] Polychromasia [Presence] in Blood by Light microscopy [facility] Rouleaux [Presence] in Blood by Light [facility] Target cells [Presence] in Blood by [facility] ID Date Data Source [id number] 04/28/2020 07:49:33 AM [facility] Value Range Interpretation Code Description Data Beronica rce(s) Supporting Document(s) Glucose [Mass/volume] in Capillary blood by Glucometer 121 mg/dL 70- 140 [facility] ID Date Data Source [id number] 04/28/2020 05:53:37 AM [facility] Value Range Interpretation Code Description Data Beronica rce(s) Supporting Document(s) Prothrombin time (PT) 26.9 s 12.5-14.9 H [facility] INR in Platelet poor plasma by Coagulation assay 2.43 [facility] Routine intensity oral anticoagulation I NR is typically 2.0-3.0. Target INR must be clinically individualized. ID Date Data Source [id number] 04/27/2020 09:17:05 PM [facility] Value Range Interpretation Code Description Data Beronica rce(s) Supporting Document(s) Glucose [Mass/volume] in Capillary blood by Glucometer 170 mg/dL 70- 140 [facility] ID Date Data Source [id number] 04/27/2020 07:01:20 PM [facility] Value Range Interpretation Code Description Data Beronica rce(s) Supporting Document(s) Albumin [Mass/volume] in Serum or Plasma by Bromocresol green (BCG) dye binding method 2.4 g/dL 3.5-5.2 [facility] Bilirubin.total [Mass/volume] in Serum or Plasma 15.8 mg/dL <1.2 H [facility] Bilirubin.direct [Mass/volume] in Serum or Plasma 11.8 mg/dL <0.3 H [facility] Confirmed Alkaline phosphatase [Enzymatic activity/volume] in Serum or Plasma 170 U/L 40-129 H [facility] Aspartate aminotransferase [Enzymatic activity/volume] in Serum or Plasma 231 U/L <40 H [facility] Alanine aminotransferase [Enzymatic activity/volume] in Seru m or Plasma 57 U/L <41 H [facility] Protein [Mass/volume] in Serum or Plasma 7.1 g/dL 6.4-8.3 [facility] ID Date Data Source [id number] 04/27/2020 07:01:20 PM [facility] Name Value Range Interpretation Code Description Data Beronica rce(s) Supporting Document(s) Bicarbonate [Moles/volume] in Serum 20 mmol/L 22-29 L [facility] Chloride [Moles/volume] in Serum or Plasma 95 mmol/L 98-107 L [facility] Creatinine [Mass/volume] in Serum or Plasma 0.70-1.20 L [facility] IctericConfirmed Glucose [Mass/volume] in Serum or Plasma 271 mg/dL 70-140 H [facility] Potassium [Moles/volume] in Serum or Plasma 3.8 mmol/L 3.4-5.1 [facility] Sodium [Moles/volume] in Serum or Plasma 126 mmol/L 136-145 L [facility] Urea nitrogen [Mass/volume] in Serum or Plasma 6-20 L [facility] Confirmed Anion gap 3 in Serum or Plasma 11 mmol/L 8-15 [facility] Osmolality of Serum or Plasma by calculation 275-300 [facility] Creatinine/Urea nitrogen [Mass Ratio] in Serum or Plasma [facility] Calcium [Mass/volume] in Serum or Plasma 7.6 mg/dL 8.6-10.0 L [facility] Glomerular filtration rate/1.73 sq M pre dicted among non-blacks [Volume Rate/Area] in Serum or Plasma by Creatinine-based formula (MDRD) >6 0 [facility] Glomerular filtration rate/1.73 sq M pre dicted among blacks [Volume Rate/Area] in Serum or Plasma by Creatinine-based formula (MDRD) >60 [facility] ID Date Data Source [id number] 04/27/2020 07:01:20 PM [facility] Name Value Range Interpretation Code Description Data Beronica rce(s) Supporting Document(s) Thyrotropin [Units/volume] in Serum or Plasma 1.840 u[IU]/mL 0.270-4. 200 [facility] ID Date Data Source [id number] 04/27/2020 07:01:20 PM [facility] Name Value Range Interpretation Code Description Data Beronica rce(s) Supporting Document(s) Magnesium [Mass/volume] in Serum or Plasma 2.1 mg/dL 1.6-2.6 [facility] ID Date Data Source [id number] 04/27/2020 07:27:14 PM EDT [facility] Name Value Range Interpretation Code Description Data Beronica rce(s) Supporting Document(s) Leukocytes [#/volume] in Blood by Automated count 3.1 10*3/uL 4-10 L [facility] Erythrocytes [#/volume] in Blood by Automated count 3.03 10*6/uL 4.6- 6.1 L [facility] Hemoglobin [Mass/volume] in Blood 10.9 g/dL 13.5-18 L [facility] Hematocrit [Volume Fraction] of Blood by Automated count 31.8 % 4 1-53 L [facility] Erythrocyte mean corpuscular volume [Entitic volume] b y Automated count 105.0 fL 80-96 H [facility] Erythrocyte mean corpuscular hemoglobin [Entitic mass] by Automated count 36.0 pg 27-33 H [facility] Erythrocyte mean corpuscular hemoglobin concentration [Mass/volume] by Automated count 34.3 g/dL 32.0-36.0 [facility] E[facility] distribution width [Ratio] by Automated count 16.2 % 11.5-14.5 H [facility] Platelets [#/volume] in Blood by Automated count 56 10*3/uL 150-400 L [facility] Differential cell count method - Blood [facility] Neutrophils/100 leukocytes in Blood by Automated count 90 % [facility] Lymphocytes/100 leukocytes in Blood by Automated count 8 % [facility] Monocytes/100 leukocytes in Blood by Automated count 1 % [facility] Neutrophils [#/volume] in Blood by Automated count 2.79 10*3/uL 1.8-7 .0 [facility] Lymphocytes [#/volume] in Blood by Automated count 0.25 10*3/uL 1.2-4 .0 L [facility] Monocytes [#/volume] in Blood by Automated count 0.03 10*3/uL 0-0.8 [facility] Band form neutrophils/100 leukocytes in Blood by Manual count 1 % [facility] Band form neutrophils [#/volume] in Blood by Manual count 0.03 10*3 /uL 0-0.6 [facility] Macrocytes [Presence] in Blood by Light microscopy [facility] Anisocytosis [Presence] in Blood by Light microscopy [facility] Target cells [Presence] in Blood by Light microscopy [facility] ID Date Data Source [id number] 04/27/2020 06:28:09 PM EDT [facility] Value Range Interpretation Code Description Data Beronica rce(s) Supporting Document(s) Ammonia [Moles/volume] in Plasma 16-60 L [facility] ID Date Data Source [id number] 04/27/2020 04:55:19 PM EDT [facility] Name Value Range Interpretation Code Description Data Beronica rce(s) Supporting Document(s) Glucose [Mass/volume] in Capillary blood by Glucometer 140 mg/dL 70- 140 [facility] ID Date Data Source [id number] 04/27/2020 12:15:41 PM EDT [facility] Value Range Interpretation Code Description Data Beronica rce(s) Supporting Document(s) Glucose [Mass/volume] in Capillary blood by Glucometer 110 mg/dL 70- 140 [facility] ID Date Data Source [id number] 04/27/2020 10:07:03 AM EDT [facility] Value Range Interpretation Code Description Data Beronica rce(s) Supporting Document(s) Consultation [facility] [id number]/ARBtvZQQep2CzGNduERq5BEsuCITyB6HkBKM9vC3kIKD2LQwTUnMzDhRbWXT5 lbm [file] Pattern Generator Operator/BT1uzCrnzXF4CT5sp2mMtdhO4JIXHyHz80jpP8QKUkWlueLHYu4XxH8RWgVDMUQB5QgiJKoolqdYP [file] ID Date Data Source [id number] 04/27/2020 08:36:55 AM EDT [facility] Name Value Range Interpretation Code Description Data Beronica rce(s) Supporting Document(s) Leukocytes [#/volume] in Blood by Automated count 4.2 10*3/uL 4-10 [facility] Erythrocytes [#/volume] in Blood by Automated count 3.10 10*6/uL 4.6- 6.1 L [facility] Hemoglobin [Mass/volume] in Blood 11.1 g/dL 13.5-18 L [facility] Hematocrit [Volume Fraction] of Blood by Automated count 32.3 % 4 1-53 L [facility] Erythrocyte mean corpuscular volume [Entitic volume] b y Automated count 104.3 fL 80-96 H [facility] Erythrocyte mean corpuscular hemoglobin [Entitic mass] by Automated count 35.8 pg 27-33 H [facility] Erythrocyte mean corpuscular hemoglobin concentration [Mass/volume] by Automated count 34.4 g/dL 32.0-36.0 [facility] width [Ratio] by Automated count 16.3 % 11.5-14.5 H [facility] Platelets [#/volume] in Blood by Automated count 51 10*3/uL 150-400 L [facility] Differential cell count method - Blood [facility] Neutrophils/100 leukocytes in Blood by Automated count 61 % [facility] Lymphocytes/100 leukocytes in Blood by Automated count 28 % [facility] Monocytes/100 leukocytes in Blood by Automated count 9 % [facility] Eosinophils/100 leukocytes in Blood by Automated count 1 % [facility] Basophils/100 leukocytes in Blood by Automated count 1 % [facility] Neutrophils [#/volume] in Blood by Automated count 2.60 10*3/uL 1.8-7 .0 [facility] Lymphocytes [#/volume] in Blood by Automated count 1.16 10*3/uL 1.2-4 .0 L [facility] Monocytes [#/volume] in Blood by Automated count 0.36 10*3/uL 0-0.8 [facility] Eosinophils [#/volume] in Blood by Automated count 0.04 10*3/uL 0-0.5 [facility] Basophils [#/volume] in Blood by Automated count 0.03 10*3/uL 0-0.2 [facility] Nucleated erythrocytes/100 leukocytes [Ratio] in Blood by Automated count 0 /100{WBCs} 0-0 [facility] ID Date Data Source [id number] 04/27/2020 09:22:07 AM EDT [facility] Name Value Range Interpretation Code Description Data Beronica rce(s) Supporting Document(s) Bicarbonate [Moles/volume] in Serum 25 mmol/L 22-29 [facility] Chloride [Moles/volume] in Serum or Plasma 96 mmol/L 98-107 L [facility] Creatinine [Mass/volume] in Serum or Plasma 0.38 mg/dL 0.70-1.20 [facility] Glucose [Mass/volume] in Serum or Plasma 80 mg/dL 70-140 [facility] Potassium [Moles/volume] in Serum or Plasma 3.3 mmol/L 3.4-5.1 L [facility] Sodium [Moles/volume] in Serum or Plasma 131 mmol/L 136-145 L [facility] Urea nitrogen [Mass/volume] in Serum or Plasma 2 mg/dL 6-20 [facility] Anion gap 3 in Serum or Plasma 10 mmol/L 8-15 [facility] Osmolality of Serum or Plasma by calculation 267 mosm/kg 275-300 L [facility] Creatinine/Urea nitrogen [Mass Ratio] in Serum or Plasma 4 [facility] Calcium [Mass/volume] in Serum or Plasma 7.6 mg/dL 8.6-10.0 [facility] Glomerular filtration rate/1.73 sq M pre dicted among non-blacks [Volume Rate/Area] in Serum or Plasma by Creatinine-based formula (MDRD) >6 0 [facility] Glomerular filtration rate/1.73 sq M pre dicted among blacks [Volume Rate/Area] in Serum or Plasma by Creatinine-based formula (MDRD) >60 [facility] ID Date Data Source [id number] 04/27/2020 09:22:07 AM [facility] Name Value Range Interpretation Code Description Data Beronica rce(s) Supporting Document(s) Magnesium [Mass/volume] in Serum or Plasma 1.7 mg/dL 1.6-2.6 [facility] ID Date Data Source [id number] 04/27/2020 09:51:11 AM [facility] Name Value Range Interpretation Code Description Data Beronica rce(s) Supporting Document(s) Albumin [Mass/volume] in Serum or Plasma by Bromocresol green (BCG) dye binding method 2.3 g/dL 3.5-5.2 [facility] Bilirubin.total [Mass/volume] in Serum or Plasma 15.1 mg/dL <1.2 H [facility] Bilirubin.direct [Mass/volume] in Serum or Plasma 11.1 mg/dL <0.3 H [facility] Confirmed Alkaline phosphatase [Enzymatic activity/volume] in Serum or Plasma 170 U/L 40-129 H [facility] Aspartate aminotransferase [Enzymatic activity/volume] in Serum or Plasma 261 U/L <40 H [facility] Alanine aminotransferase [Enzymatic activity/volume] in Seru m or Plasma 58 U/L <41 H [facility] Protein [Mass/volume] in Serum or Plasma 6.9 g/dL 6.4-8.3 [facility] ID Date Data Source [id number] 04/27/2020 08:19:05 AM [facility] Value Range Interpretation Code Description Data Beronica rce(s) Supporting Document(s) Glucose [Mass/volume] in Capillary blood by Glucometer 72 mg/dL 70- 140 [facility] ID Date Data Source [id number] 04/27/2020 04:14:02 AM [facility] Value Range Interpretation Code Description Data Beronica rce(s) Supporting Document(s) Prothrombin time (PT) 26.1 s 12.5-14.9 H [facility] INR in Platelet poor plasma by Coagulation assay 2.34 [facility] Routine intensity oral anticoagulation I NR is typically 2.0-3.0. Target INR must be clinically individualized. ID Date Data Source [id number] 04/26/2020 09:54:49 PM [facility] Value Range Interpretation Code Description Data Beronica rce(s) Supporting Document(s) Glucose [Mass/volume] in Capillary blood by Glucometer 75 mg/dL 70- 140 [facility] ID Date Data Source [id number] 04/26/2020 08:48:12 PM [facility] Value Range Interpretation Code Description Data Beornica rce(s) Supporting Document(s) Lactate [Moles/volume] in Serum or Plasma 2.2 mmol/l 0.5-2.2 [facility] ID Date Data Source [id number] 04/26/2020 04:58:16 PM [facility] Value Range Interpretation Code Description Data Beronica rce(s) Supporting Document(s) Glucose [Mass/volume] in Capillary blood by Glucometer 77 mg/dL 70- 140 [facility] ID Date Data Source [id number] 04/26/2020 04:48:01 PM [facility] Name Value Range Interpretation Code Description Data Beronica rce(s) Supporting Document(s) Albumin [Mass/volume] in Serum or Plasma by Bromocresol green (BCG) dye binding method 2.6 g/dL 3.5-5.2 [facility] Bilirubin.total [Mass/volume] in Serum or Plasma 14.8 mg/dL <1.2 H [facility] Bilirubin.direct [Mass/volume] in Serum or Plasma 9.8 mg/dL <0.3 H [facility] Alkaline phosphatase [Enzymatic activity/volume] in Serum or Plasma 180 U/L 40-129 H [facility] Aspartate aminotransferase [Enzymatic activity/volume] in Serum or Plasma 321 U/L <40 H [facility] Alanine aminotransferase [Enzymatic activity/volume] in Seru m or Plasma 63 U/L <41 H [facility] Protein [Mass/volume] in Serum or Plasma 7.2 g/dL 6.4-8.3 [facility] ID Date Data Source [id number] 04/26/2020 04:48:01 PM [facility] Value Range Interpretation Code Description Data Beronica rce(s) Supporting Document(s) Magnesium [Mass/volume] in Serum or Plasma 2.0 mg/dL 1.6-2.6 [facility] ID Date Data Source [id number] 04/26/2020 04:48:01 PM [facility] Value Range Interpretation Code Description Data Beronica rce(s) Supporting Document(s) Bicarbonate [Moles/volume] in Serum 27 mmol/L 22-29 [facility] Chloride [Moles/volume] in Serum or Plasma 96 mmol/L 98-107 L [facility] Creatinine [Mass/volume] in Serum or Plasma 0.58 mg/dL 0.70-1.20 L [facility] Icteric Glucose [Mass/volume] in Serum or Plasma 80 mg/dL 70-140 [facility] Potassium [Moles/volume] in Serum or Plasma 3.4 mmol/L 3.4-5.1 [facility] Sodium [Moles/volume] in Serum or Plasma 133 mmol/L 136-145 L [facility] Urea nitrogen [Mass/volume] in Serum or Plasma 2 mg/dL 6-20 L [facility] Anion gap 3 in Serum or Plasma 11 mmol/L 8-15 [facility] Osmolality of Serum or Plasma by calculation 271 mosm/kg 275-300 L [facility] Creatinine/Urea nitrogen [Mass Ratio] in Serum or Plasma 4 [facility] Calcium [Mass/volume] in Serum or Plasma 7.5 mg/dL 8.6-10.0 L [facility] Glomerular filtration rate/1.73 sq M pre dicted among non-blacks [Volume Rate/Area] in Serum or Plasma by Creatinine-based formula (MDRD) >6 0 [facility] Glomerular filtration rate/1.73 sq M pre dicted among blacks [Volume Rate/Area] in Serum or Plasma by Creatinine-based formula (MDRD) >60 [facility] ID Date Data Source [id number] 04/26/2020 05:40:59 PM EDT [facility] Name Value Range Interpretation Code Description Data Beronica rce(s) Supporting Document(s) Leukocytes [#/volume] in Blood by Automated count 4.7 10*3/uL 4-10 [facility] Erythrocytes [#/volume] in Blood by Automated count 3.03 10*6/uL 4.6- 6.1 L [facility] Hemoglobin [Mass/volume] in Blood 10.9 g/dL 13.5-18 L [facility] Hematocrit [Volume Fraction] of Blood by Automated count 31.4 % 4 1-53 L [facility] Erythrocyte mean corpuscular volume [Entitic volume] b y Automated count 103.4 fL 80-96 H [facility] Erythrocyte mean corpuscular hemoglobin [Entitic mass] by Automated count 36.0 pg 27-33 H [facility] Erythrocyte mean corpuscular hemoglobin concentration [Mass/volume] by Automated count 34.8 g/dL 32.0-36.0 [facility] E[facility]th[facility] distribution width [Ratio] by Automated count 16.1 % 11.5-14.5 H [facility] Platelets [#/volume] in Blood by Automated count 43 10*3/uL 150-400 L [facility] ConfirmedGIANT PLATELETS PRESENT Differential cell count method - Blood [facility] Neutrophils/100 leukocytes in Blood by Automated count 70 % [facility] Lymphocytes/100 leukocytes in Blood by Automated count 19 % [facility] Monocytes/100 leukocytes in Blood by Automated count 8 % [facility] Neutrophils [#/volume] in Blood by Automated count 3.29 10*3/uL 1.8-7 .0 [facility] Lymphocytes [#/volume] in Blood by Automated count 0.89 10*3/uL 1.2-4 .0 L [facility] Monocytes [#/volume] in Blood by Automated count 0.38 10*3/uL 0-0.8 [facility] Band form neutrophils/100 leukocytes in Blood by Manual count 3 % [facility] Band form neutrophils [#/volume] in Blood by Manual count 0.14 10*3 /uL 0-0.6 [facility] Macrocytes [Presence] in Blood by Light microscopy [facility] Anisocytosis [Presence] in Blood by Light microscopy [facility] Target cells [Presence] in Blood by Light microscopy [facility] ID Date Data Source [id number] 04/26/2020 04:35:01 PM [facility] Value Range Interpretation Code Description Data Beronica rce(s) Supporting Document(s) Lactate [Moles/volume] in Serum or Plasma 2.7 mmol/l 0.5-2.2 H [facility] ID Date Data Source [id number] 04/26/2020 12:29:13 PM [facility] Value Range Interpretation Code Description Data Beronica rce(s) Supporting Document(s) Glucose [Mass/volume] in Capillary blood by Glucometer 104 mg/dL 70- 140 [facility] ID Date Data Source [id number] 04/26/2020 12:03:10 PM [facility] Value Range Interpretation Code Description Data Beronica rce(s) Supporting Document(s) Prothrombin time (PT) 25.9 s 12.5-14.9 H [facility] INR in Platelet poor plasma by Coagulation assay 2.32 [facility] Routine intensity oral anticoagulation I NR is typically 2.0-3.0. Target INR must be clinically individualized. ID Date Data Source [id number] 04/26/2020 11:33:51 AM [facility] Value Range Interpretation Code Description Data Beronica rce(s) Supporting Document(s) Ammonia [Moles/volume] in Plasma 15 umol/L 16-60 L [facility] ID Date Data Source [id number] 04/26/2020 11:30:31 AM [facility] Value Range Interpretation Code Description Data Beronica rce(s) Supporting Document(s) Lactate [Moles/volume] in Serum or Plasma 3.6 mmol/l 0.5-2.2 H [facility] ID Date Data Source [id number] 04/26/2020 11:26:50 AM [facility] Value Range Interpretation Code Description Data Beronica rce(s) Supporting Document(s) Color of Urine [facility] Clarity of Urine [facility] Specific gravity of Urine by Refractometry automated 1.012 1.003 -1.030 [facility] pH of Urine by Automated test strip 6.0 5.0-8.0 [facility] Protein [Mass/volume] in Urine by Automated test strip Neg [facility] Glucose [Mass/volume] in Urine by Automated test strip Neg [facility] Ketones [Mass/volume] in Urine by Automated test strip Neg [facility] Bilirubin.total [Presence] in Urine by Automated test strip Negative [facility] False-positive results may occur with ce rtain food additives or medications. Hemoglobin [Presence] in Urine by Automated test strip Neg ative [facility] Leukocyte esterase [Presence] in Urine by Automated test strip Negative [facility] Nitrite [Presence] in Urine by Automated test strip Negati ve [facility] Leukocytes [#/area] in Urine sediment by Automated count 5 /HPF 0 -5 [facility] Erythrocytes [#/area] in Urine sediment by Automated count 0-3 [facility] Bacteria [#/area] in Urine sediment by Automated count Non e A [facility] ID Date Data Source [id number] 04/26/2020 09:46:29 AM T [facility] Value Range Interpretation Code Description Data Beronica rce(s) Supporting Document(s) Potassium [Moles/volume] in Urine 27.7 mmol/L [facility] ID Date Data Source [id number] 04/26/2020 09:46:29 AM [facility] Value Range Interpretation Code Description Data Beronica rce(s) Supporting Document(s) Sodium [Moles/volume] in Urine 30 mmol/L [facility] ID Date Data Source [id number] 04/26/2020 11:53:12 AM [facility] Value Range Interpretation Code Description Data Beronica rce(s) Supporting Document(s) Osmolality of Urine 227 mosm/kg 300-1000 L [facility] ID Date Data Source [id number] 04/26/2020 08:38:10 AM [facility] Name Value Range Interpretation Code Description Data Beronica rce(s) Supporting Document(s) Glucose [Mass/volume] in Capillary blood by Glucometer 90 mg/dL 70- 140 [facility] ID Date Data Source [id number] 04/26/2020 08:10:25 AM [facility] Name Value Range Interpretation Code Description Data Beronica rce(s) Supporting Document(s) Leukocytes [#/volume] in Blood by Automated count 4.7 10*3/uL 4-10 [facility] Erythrocytes [#/volume] in Blood by Automated count 3.10 10*6/uL 4.6- 6.1 L [facility] Hemoglobin [Mass/volume] in Blood 11.3 g/dL 13.5-18 L [facility] Hematocrit [Volume Fraction] of Blood by Automated count 32.0 % 4 1-53 L [facility] Erythrocyte mean corpuscular volume [Entitic volume] b y Automated count 103.2 fL 80-96 H [facility] Erythrocyte mean corpuscular hemoglobin [Entitic mass] by Automated count 36.4 pg 27-33 H [facility] Erythrocyte mean corpuscular hemoglobin concentration [Mass/volume] by Automated count 35.2 g/dL 32.0-36.0 [facility] Erythrocyte distribution width [Ratio] by Automated count 16.0 % 11.5-14.5 H [facility] Platelets [#/volume] in Blood by Automated count 45 10*3/uL 150-400 L [facility] Differential cell count method - Blood [facility] Neutrophils/100 leukocytes in Blood by Automated count 63 % [facility] Lymphocytes/100 leukocytes in Blood by Automated count 26 % [facility] Monocytes/100 leukocytes in Blood by Automated count 9 % [facility] Eosinophils/100 leukocytes in Blood by Automated count 1 % [facility] Basophils/100 leukocytes in Blood by Automated count 1 % [facility] Neutrophils [#/volume] in Blood by Automated count 2.97 10*3/uL 1.8-7 .0 [facility] Lymphocytes [#/volume] in Blood by Automated count 1.23 10*3/uL 1.2-4 .0 [facility] Monocytes [#/volume] in Blood by Automated count 0.44 10*3/uL 0-0.8 [facility] Eosinophils [#/volume] in Blood by Automated count 0.02 10*3/uL 0-0.5 [facility] Basophils [#/volume] in Blood by Automated count 0.03 10*3/uL 0-0.2 [facility] Nucleated erythrocytes/100 leukocytes [Ratio] in Blood by Automated count 0 /100{WBCs} 0-0 [facility] ID Date Data Source [id number] 04/26/2020 08:38:01 AM [facility] Name Value Range Interpretation Code Description Data Beronica rce(s) Supporting Document(s) Albumin [Mass/volume] in Serum or Plasma by Bromocresol green (BCG) dye binding method 2.6 g/dL 3.5-5.2 [facility] Bilirubin.total [Mass/volume] in Serum or Plasma 14.1 mg/dL <1.2 H [facility] Bilirubin.direct [Mass/volume] in Serum or Plasma 9.8 mg/dL <0.3 H [facility] Alkaline phosphatase [Enzymatic activity/volume] in Serum or Plasma 193 U/L 40-129 H [facility] Aspartate aminotransferase [Enzymatic activity/volume] in Serum or Plasma 349 U/L <40 H [facility] Alanine aminotransferase [Enzymatic activity/volume] in Seru m or Plasma 72 U/L <41 H [facility] Protein [Mass/volume] in Serum or Plasma 7.3 g/dL 6.4-8.3 [facility] ID Date Data Source [id number] 04/26/2020 08:38:01 AM [facility] Name Value Range Interpretation Code Description Data Beronica rce(s) Supporting Document(s) Bicarbonate [Moles/volume] in Serum 26 mmol/L 22-29 [facility] Chloride [Moles/volume] in Serum or Plasma 92 mmol/L 98-107 L [facility] Creatinine [Mass/volume] in Serum or Plasma 0.55 mg/dL 0.70-1.20 L [facility]ct[facility] Glucose [Mass/volume] in Serum or Plasma 88 mg/dL 70-140 [facility] Potassium [Moles/volume] in Serum or Plasma 4.2 mmol/L 3.4-5.1 [facility] Sodium [Moles/volume] in Serum or Plasma 129 mmol/L 136-145 L [facility] Urea nitrogen [Mass/volume] in Serum or Plasma 2 mg/dL 6-20 L [facility] Anion gap 3 in Serum or Plasma 11 mmol/L 8-15 [facility] Osmolality of Serum or Plasma by calculation 264 mosm/kg 275-300 L [facility] Creatinine/Urea nitrogen [Mass Ratio] in Serum or Plasma 4 [facility] Calcium [Mass/volume] in Serum or Plasma 7.9 mg/dL 8.6-10.0 L [facility] Glomerular filtration rate/1.73 sq M pre dicted among non-blacks [Volume Rate/Area] in Serum or Plasma by Creatinine-based formula (MDRD) >6 0 [facility] Glomerular filtration rate/1.73 sq M pre dicted among blacks [Volume Rate/Area] in Serum or Plasma by Creatinine-based formula (MDRD) >60 [facility] ID Date Data Source [id number] 04/26/2020 08:38:01 AM [facility] Name Value Range Interpretation Code Description Data Beronica rce(s) Supporting Document(s) Magnesium [Mass/volume] in Serum or Plasma 1.5 mg/dL 1.6-2.6 [facility] ID Date Data Source [id number] 04/26/2020 07:25:58 AM [facility] Name Value Range Interpretation Code Description Data Beronica rce(s) Supporting Document(s) [facility] SULNKq4fZbOSOyCpo7YdEuXjNYJaLW4xvtt7O7B0pNLiT8IruCCes2lbP4RqZ6GvBBZlOWLNFC4AyMBa jb2 [file] FasQor/magazine grinder loader/magazine grinder loader/wxPfbedcT3MjeQfLo2FXi/ZVTkJC1OHx1CJguGcz8Pt8FHoMMt+8mgkjC16/S5mH4 uuk0RHI46k/usmRuVx4tcExeRTK2EQLqK+TPMv8jgj 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 [file] asccpfsV7R0lrdx0gif6krt9VtjafQbtJxxmn1M7+b kd1o5OHSkOVC+kjHGPGp2ato2DFfTwmMzmxvjcg+ZDrl+pjVHvk9YmOrtMXh4yj3e4N137wNh0zEQc0l Xp2DyWdQVASOomby7YSnDmO6ltFJNtmKQrkyAD1X/6oS4sEptGAwVT94GUnxKbKv8Qbk/iZT8v+83C2O /9eg61z5UXHcm7ico7s790F1uS00NraKZhBYbjcwSK XnAuERlLm7yOKszxIP9ujGV40sikI4HUXf+5g8Rwcibx9hlsIrByH0ZnqJyiHsgwkGudlxTwW6rXAeag mUvcUujL5kW7HjA2zNO25b4QhutwVPknkzbkc1tsRKzhkTQzPQ1Kwdj8nLiqPRokfgAACiN4ugS83cg8 6N3eeR+8yxc2DN82woyzqem7HnNV16WnVtjwwN/bi9 7tV+5pkhKsCQatjbAY7DHv9GX8PB2tuld+Pi4LgkX4tMMqOH9A+pq7MFghmcU/26/dpCnMsdw7BbTV6F c8kLyOpMAo+9844fPyhv/tf/8l74yvzk9dir0yjD/D/NTLM+t2ZcOWKq+t46dWC89zN8H+SuX+TfZTKe fphn/nnoewqYrHuddg75+/hrP3x5g+xx+ux0WNVv1a xN3l3Wxe3puu07tK3l+aAtKx2jzI6hy5rNlZHiEb3Wqp73j5xpFCnSCo6SbpqgVqQYCNjbk1C7Y/Igcj iltXY6duuBdQUWGdZ5jmWtHIBpt/1NvnX7s/0wIKCwJHOyLOke1j5Ra95h+ASSEMBLER INSULATOR+YkZ3UDeAI8wDSKtptb [file] Ym05DMk39nWIV9qkd0MA29M/+1s3W1/dv+k41d/XW62y45p977ko9lpm4D78x1502/6veXI70Cufmojr DzqedDzpeNHxovtuuu9+j59sA9/muZuD2GJIMq5saM jT2OQZN/01cff2tqmlzhpyaVjieKTmfKTOp4lTivw+1d+XCoJ8g42ILe0m+FFlb76gKb6kPZ0huDyv3J 6D3nfQ+c3677DhW+n2N57kpZue2Z6wa22h7V4gDw2usm/w91d/d+fo7THawscAY/13qoKUjmhyHsvjy3 s8Fom0nramYsulcNyycuVwGEEBE1vA0UqfxYSlr4/K xEh75Jwt8873mzSXGZekfXFYZYygoQh8hxS531n0Ow60Wn600Z8azKtuaEjWrYs2GH39/sULu/XV6uPl 39+bju/oFFTB5K+/67S+un/T8fndt/UV/l50/Mqym0fA+7a+al/Pslo3iAybB4YxeZBeDRgLP84QZfa8 qo/vh/7+yoN//dFufYW/Jt0hgBoY2DxZFg6ltHsheG Fxp+IDk9ZLBe2PHv7njwLZ/LsAmvdD89l8vy5X+gp/f/HKnb3mDQo+r5+Pvrp/r++7xPq+Uts45zx9Ib slcw167/jqY+ur+hu6mdc4UqqhV86XB/49O/be0Ad78m292Oq1je8EqX250rT4p8lujP1UHFT21g/93c fP+276o4jp//c7ZM78ImE59qipc4du0yNP8kf5Y1g+ WnMsxz80WjllAo4/ih0615xm64iUi07y5289enc6t+dbXzn+/voLGr/fRJ30UY5Yw61+p6g/KuqPivqj an11u74ShAw1Uy716qwvi/ud59NXYhd+0UjCnxXsRmevdxd8V/W/pK/1KwuIvujJUwbIb1u/bzB11QXt Wdz9B17HRahYuf3KD9dx/yn1iK4xr7/Nuñez/PxQXtzPn [file] Edgardo+1IpF2Wspn1oJG4em++8V0ps4TtuVE6OO911iDL/3fsSi+m5P+6X/kRI50x7GrR1i4goDb2sbxvA2 hdea8qnwm51iPTsdIQGqxw16K560qO7X+0HXAu4Nzd2g3uLqs+V07lqbWHcFvv500P5/w3tktfghN/7K 3QN7O3Goxxf6e6VMTJ6ITltaoXu1q917pqp61Z7tpX Q9wmBer2/44vPIls054/jlwbOcXDp/SkXsDq9VrRiTF+h910O9pBUkuX3qgZRymBJ2xbbvxf26TDl8Ol cLYjwns2w+VF0yUwBJcS3+OcJBJ1uWaM9MfaxvFxvhE8WI4u6UVlzf4vvVIingpW1f06gdJvrYtQXt9P upnBEKVNCJGIdGVFNVhMdccJYB6pnLUN9OnaHGPefv pW0L8r0PeAwkbxbG5OwG5jxuTUpSk4FXvJHf7+wYA9aYn2CvIFjEGeQ+wVmogVOHmrSo3LcwjnXPiEZi VERIFICATION ENGINEER+yJz7I/KhxVPvpi4Za1umkqOhw2iXXhwYM3ZFxrRq361MxF0fW7x8+1mk+VrzB69tlKDl32u20n+t [file] +A4oU6888OriK8/42QXBE8376kzkrKDxnV4r+KN3e7 RwzDiykpXh19/14q4Tv36//paNR7h38Eav/ujbV7Iw98swvwllx9++/bvsobI6D23+/larsen/k/p5M511+O EE73c3dEpc3f/6ja14djdtO3o/9fbF53//Z411xkMtP/y8w0dkZ23hfb+/eX/T919+9/bhdx++/OrDL7 /64q/210i5gr4D24/+4V/++Marichuy/ff/Pb//t/7x9/q9/ +OG//9sf/cwv3m79ea/+4Ye33//d2z/+zYvV9x//2a3LL7srK9uxnI4Rt8t/2nR59Jp/aY5LjkVPaaK/ 9Kdf/Nxrk2p5FNt0/KffAR+vVYMHt+vX/xfgcXgecP/v0OpX1AXn9F34n6/OHJiUqzgtdla6zvAw8Fw6 /t5Q3/Jq9DG5z24/+Pj9v3z/l7+v4zii5m1k74b6+P brD7/6r19+++G7L3/0rU+Gnv6/ywTrrd4phc66jcxx67m9Y12flpsyTsbzFbJc0r5FdxUmkp/Df/zd21 /+8B/f/+w457DeI0qOvh6jY//+20mumTP59v2z3XfPr3/84T++/8v/+sO//GLp9lH483q/zJ3G4q+8+4 55v1fe3y07m38/+x///MNPb3/azG8u7dnRI/uHT7/4 h0//xG+9LwU+yP2PsaYGas0CN5xTt0pj/xEir7tovT4PZ9/qxr79+piml7q1f//+/t//e072gab0hs7r D7//+SvJzHv/c3n7P3/5x7/9ya/v7/CbP/oc9m9Yxdz8A/4qq4SzSq7++c9/+sv94JpLM+53/erP//SZ eXicnqTVII17a+//6V9/+OM/luzba69einR6/uS3h3 Ejf/vv//KwUY19r70/+fe/trq42nl//NQzl5++7b0hdrMZ52+++4zzyWuO+v//6XLB0AwTbPzxJ/7792 /y9ud/qjeUrKBsdTn8c3587t3vRcFs3rs/+vTZ2/Jn9N3o0uZSRn5/1vQT99B1TxKsD7Xu5nAlg0/57d arx033ZQ05rId0cy4M7sLBQsjbheLywVTqED5QZK6w x0GqJlU2JDMen2UgCDuzGJw3dGNiIPuhdiOmv1HgnhpxA9Kpc6PyPiUmOHQoCxUtIys6WGYvPuX1uEEm FiAdZEAnY5NrRQMcRrY8KfKdNLEOGC2YKZXwllHyLjTcCXL+HnHnVS2yprwaZLXsx3ItMLjdCRajSPSw B6H0yYdfGXTeK4WazB36ENKrB0XnwjA6UAY2SCUoVz AvTGFzdCAxOSAwIFI+SqGvUF0cvnzsBATgz7IzYZmpGMQ6pF2jZDtESYDPWWbHVTvvWvW9h34xsfITSU BoOBXdIG9LgbVgmUcvjaBneBBxKNW6WhRyVZO1VIXjXgC9WEQVZVFqFZLnQUFjTHCtY0PebRofLByOAY JSJNiBMByqLuZhv2B7XNSiynPTCZFVOHlJPVUBU08W WARqCKf1UCPhUSPeN7UxfeWrsEZrYXOJQVzkBlwnGUNcnY9mmQnjW5VkYIM5w7XhOQ2CX9GiTACsLZWR QRH6p9EnTJKtlazawjakKlZqJVGgUWQlDHMhIU4Vqn8tiYVnvcKaIGEXLMfqUwhcOT3kvMjtnpskN7Ac aWVzKSA+UaPlII2yyc9+GbYlCBYuNdt7BOBqHGhlWA ChAPVrMWTmP4oiMLMgVtWjKKKwBoRgNU5Hr7RqzAAaBb7odlIlTdeAtKXmQkjkCAPzKXQmJTOjWvOTWA MgDPGvFCWpXNE6ERUeWCXcPTkmAYFdLPW4EgvsFOLhMHDpNG6eGkTfNLAhIaLeNkdzASYwIEPiczCJMX XhROT5SFKvOlRsMGTeYCHtOYetFQFxOWTuZTEaCUO2 ZDT4DDFxCdSaLNBnXCPxHKZmPCNzXOUjjsMBIHDwLMSvCPP9KYOeODChOYMxUOvhXZSvQGWkGSxcZHCc WYTmPR7yCwPxZHNmULDhFOdwQTUaVTZokxAVNZCnZJOnROHjFRRvZVTxHFJlGXqzRDXwIAYfHTQfRRSs CHBiIN6hXqIqWKUcVJX3TUDdDRQzFDWeqtMSUATtHQ GoZFv0JJWtQHXfUBRaABirLTJxZDZaCOX5MDYlZZSrDK0dMfTgAAWhSLF2CbRgADBeCZTwrzYABGRmSG PrYRN0TpUpNXHcBTZpLMrhHRItZNDvBVyqGQMfHXPhZS2kFxSiAEAeUSOkMEvdXUHwIWNtkvCWGYNiSR TvXSRjFqNqUJGeGXDwKBnwTKXaIWBgFVO8BSXnGRTy FD5eUtWpLVRiEDZ0KCtoHYJqOJJlaiQNCPBjPYGgOUnkZOJePHPfZJRwBIzcQCOkETDgVWJ3WQCqQXPi FJ1vVxKmUSZnDLVxWDYiMqG9HmUdMiIOfZHasMhajrm9OUmdZ5i2OSFnALhhQI8ghhVdDQFyMnyeTb4k sZP4TCSqDriNNr9Ri6VwtzM8hqYnZtN0MTZ1QjLtTH2H ID Date Data Source [id number] 04/25/2020 08:50:41 PM EDT [facility] Name Value Range Interpretation Code Description Data Beronica rce(s) Supporting Document(s) Glucose [Mass/volume] in Capillary blood by Glucometer 131 mg/dL 70- 140 [facility] ID Date Data Source [id number] 04/25/2020 05:56:41 PM EDT [facility] Name Value Range Interpretation Code Description Data Beronica rce(s) Supporting Document(s) Leukocytes [#/volume] in Blood by Automated count 3.9 10*3/uL 4-10 L [facility] Erythrocytes [#/volume] in Blood by Automated count 3.16 10*6/uL 4.6- 6.1 L [facility] Hemoglobin [Mass/volume] in Blood 11.3 g/dL 13.5-18 L [facility] Hematocrit [Volume Fraction] of Blood by Automated count 32.4 % 4 1-53 L [facility] Erythrocyte mean corpuscular volume [Entitic volume] b y Automated count 102.7 fL 80-96 H [facility] Erythrocyte mean corpuscular hemoglobin [Entitic mass] by Automated count 35.9 pg 27-33 H [facility] Erythrocyte mean corpuscular hemoglobin concentration [Mass/volume] by Automated count 34.9 g/dL 32.0-36.0 [facility] width [Ratio] by Automated count 16.1 % 11.5-14.5 [facility] Platelets [#/volume] in Blood by Automated count 52 10*3/uL 150-400 L [facility] Differential cell count method - Blood [facility] Neutrophils/100 leukocytes in Blood by Automated count 71 % [facility] Lymphocytes/100 leukocytes in Blood by Automated count 22 % [facility] Monocytes/100 leukocytes in Blood by Automated count 7 % [facility] Eosinophils/100 leukocytes in Blood by Automated count 0 % [facility] Basophils/100 leukocytes in Blood by Automated count 0 % [facility] Neutrophils [#/volume] in Blood by Automated count 2.72 10*3/uL 1.8-7 .0 [facility] Lymphocytes [#/volume] in Blood by Automated count 0.86 10*3/uL 1.2-4 .0 L [facility] Monocytes [#/volume] in Blood by Automated count 0.28 10*3/uL 0-0.8 [facility] Eosinophils [#/volume] in Blood by Automated count 0.01 10*3/uL 0-0.5 [facility] Basophils [#/volume] in Blood by Automated count 0.02 10*3/uL 0-0.2 [facility] Nucleated erythrocytes/100 leukocytes [Ratio] in Blood by Automated count 0 /100{WBCs} 0-0 [facility] ID Date Data Source [id number] 04/25/2020 06:07:27 PM EDT [facility] Name Value Range Interpretation Code Description Data Beronica rce(s) Supporting Document(s) Albumin [Mass/volume] in Serum or Plasma by Bromocresol green (BCG) dye binding method 2.6 g/dL 3.5-5.2 [facility] Bilirubin.total [Mass/volume] in Serum or Plasma 13.5 mg/dL <1.2 [facility] Bilirubin.direct [Mass/volume] in Serum or Plasma 9.4 mg/dL <0.3 [facility] Alkaline phosphatase [Enzymatic activity/volume] in Serum or Plasma 200 U/L 40-129 [facility] Aspartate aminotransferase [Enzymatic activity/volume] in Serum or Plasma 375 U/L <40 [facility] Alanine aminotransferase [Enzymatic activity/volume] in Seru m or Plasma 76 U/L <41 [facility] Protein [Mass/volume] in Serum or Plasma 7.5 g/dL 6.4-8.3 [facility] ID Date Data Source [id number] 04/25/2020 06:07:27 PM T [facility] Name Value Range Interpretation Code Description Data Beronica rce(s) Supporting Document(s) Bicarbonate [Moles/volume] in Serum 23 mmol/L 22-29 [facility] Chloride [Moles/volume] in Serum or Plasma 89 mmol/L 98-107 [facility] Creatinine [Mass/volume] in Serum or Plasma 0.41 mg/dL 0.70-1.20 L [facility] Icteric Glucose [Mass/volume] in Serum or Plasma 112 mg/dL 70-140 [facility] Potassium [Moles/volume] in Serum or Plasma 4.0 mmol/L 3.4-5.1 [facility] Sodium [Moles/volume] in Serum or Plasma 126 mmol/L 136-145 [facility] Urea nitrogen [Mass/volume] in Serum or Plasma 2 mg/dL 6-20 [facility] Anion gap 3 in Serum or Plasma 14 mmol/L 8-15 [facility] Osmolality of Serum or Plasma by calculation 259 mosm/kg 275-300 [facility] Creatinine/Urea nitrogen [Mass Ratio] in Serum or Plasma 5 [facility] Calcium [Mass/volume] in Serum or Plasma 7.7 mg/dL 8.6-10.0 L [facility] Glomerular filtration rate/1.73 sq M pre dicted among non-blacks [Volume Rate/Area] in Serum or Plasma by Creatinine-based formula (MDRD) >6 0 [facility] Glomerular filtration rate/1.73 sq M pre dicted among blacks [Volume Rate/Area] in Serum or Plasma by Creatinine-based formula (MDRD) >60 [facility] ID Date Data Source [id number] 04/25/2020 06:07:27 PM [facility] Name Value Range Interpretation Code Description Data Beronica rce(s) Supporting Document(s) Magnesium [Mass/volume] in Serum or Plasma 1.5 mg/dL 1.6-2.6 L [facility] ID Date Data Source [id number] 04/25/2020 06:00:25 PM [facility] Value Range Interpretation Code Description Data Beronica rce(s) Supporting Document(s) Lactate [Moles/volume] in Serum or Plasma 2.4 mmol/l 0.5-2.2 [facility] ID Date Data Source [id number] 04/25/2020 05:17:39 PM [facility] Value Range Interpretation Code Description Data Beronica rce(s) Supporting Document(s) Glucose [Mass/volume] in Capillary blood by Glucometer 92 mg/dL 70- 140 [facility] ID Date Data Source [id number] 04/25/2020 12:14:37 PM [facility] Value Range Interpretation Code Description Data Beronica rce(s) Supporting Document(s) Glucose [Mass/volume] in Capillary blood by Glucometer 89 mg/dL 70- 140 [facility] ID Date Data Source [id number] 04/30/2020 12:14:10 PM [facility] Service Cmnt XXX-Imp : Specimen source n ot given.Microorganism XXX Cult : No growth 5 days Name Value Range Interpretation Code Description Data Beronica rce(s) Supporting Document(s) ID Date Data Source [id number] 04/25/2020 10:49:36 AM [facility] Value Range Interpretation Code Description Data Beronica rce(s) Supporting Document(s) Gamma glutamyl transferase [Enzymatic activity/volume] in Serum or Plasma 457 U/L 8-61 [facility] ID Date Data Source [id number] 04/25/2020 08:24:33 AM EDT [facility] Name Value Range Interpretation Code Description Data [facility](s) Supporting Document(s) Glucose [Mass/volume] in Capillary blood by Glucometer 76 mg/dL 70- 140 [facility] ID Date Data Source [id number] 04/25/2020 07:25:[address] [facility] CT ABDOMEN PELVIS WITH CONTRAST [id number] AL RESULTInterpreted by:DANDRE RadfordROCEDURE INFORMATION: Exam: CT [...] clinical indication); or iterative reconstruction. Contrast material: [id number]; Contrast volume: 100 ml; Contrast route: INTRAVENOUS [...] Name Value Range Interpretation Code Description Data [facility] rce(s) Supporting Document(s) ID Date Data Source [id number] 04/25/2020 07:22:27 AM EDT [facility] Name Value Range Interpretation Code Description Data Beronica rce(s) Supporting Document(s) History and Physical [facility] QUWJTq7dWcAIDnZs05/YIOraBCVml3JtPRtiDVq8LRkjPNPdN7GhDEP8yB2nWXJ4KRpODzWiXwAgCZA1 lbm RkXrmVWdKqTLDbZihKFvLcNFxtKtzowRTxJL6GtOK3KYIrE07qXRFtTQFsO8YyBJO7DBg+Oq4KHYWxuB FlDF1BNuyV4W5Cr7uDJD8NRl4ZBXRvkgltVSG93CTMuknIRHjDOGe0FwiGuJFArhvEY//6gAAhqFvwZz JgiWqD8Za8M7Q4t5bi7Kmfij/vT7UV+o7jqOV/t/8M I6PQLjggf3Neo500xs71T8sBsEPftPvuP3O/uvr+B89OVO+Bo9UM7Uw1+ePRQHYztwECrE4Tt323Kmm/ CX3JE8Jie5HlPYoYaYARTqk9uq2HgiNhUgHpBk0CPY/UBUIx14kC104EDtWR1yYTFQs7/SNCwX4+TgEe 3GTN1CAS3KnbTCEdRXiAz2D+BQMKagq+f5zBz0/Uu9 PdtX2K06vngRi/XVYStnOM8UbPoe9CPWrGlccqQtOy58imp5GJa0McyAc7B0wiPyjpeV2TpE1X0P7z8x zu+IrRvjGlZhsXrln6bxZVraoSjoY+9CPMRASKu6uZcXwzWqkMPzl115td7kfjsfq68WwdicP2n6q7l/ 1LCoXeWVBSXNHzy3gGo7HSIACDj5G/BRKg1Te3DYVY [file] ICAgICAgICAgICAgICAgICAgICAgICAgICAgICAgIC AgICAgICAgICAgICAgICAgICAgICAgICAgICAgICAgICAgICAgICAgICAgICANCiAgICAgICAgICAgIC AgICAgICAgICAgICAgICAgICAgICAgICAgICAgICAgICAgICAgICAgICAgICAgICAgICAgICAgICAgIC AgICAgICAgICAgICAgICAgICAgICAgICAgICANCiAg ICAgICAgICAgICAgICAgICAgICAgICAgICAgICAgICAgICAgICAgICAgICAgICAgICAgICAgICAgICAg ICAgICAgICAgICAgICAgICAgICAgICAgICAgICAgICAgICAgICANCiAgICAgICAgICAgICAgICAgICAg ICAgICAgICAgICAgICAgICAgICAgICAgICAgICAgIC AgICAgICAgICAgICAgICAgICAgICAgICAgICAgICAgICAgICAgICAgICAgICAgICANCiAgICAgICAgIC AgICAgICAgICAgICAgICAgICAgICAgICAgICAgICAgICAgICAgICAgICAgICAgICAgICAgICAgICAgIC AgICAgICAgICAgICAgICAgICAgICAgICAgICAgICAN CiAgICAgICAgICAgICAgICAgICAgICAgICAgICAgICAgICAgICAgICAgICAgICAgICAgICAgICAgICAg ICAgICAgICAgICAgICAgICAgICAgICAgICAgICAgICAgICAgICAgICANCiAgICAgICAgICAgICAgICAg ICAgICAgICAgICAgICAgICAgICAgICAgICAgICAgIC AgICAgICAgICAgICAgICAgICAgICAgICAgICAgICAgICAgICAgICAgICAgICAgICAgICANCiAgICAgIC AgICAgICAgICAgICAgICAgICAgICAgICAgICAgICAgICAgICAgICAgICAgICAgICAgICAgICAgICAgIC AgICAgICAgICAgICAgICAgICAgICAgICAgICAgICAg ICANCiAgICAgICAgICAgICAgICAgICAgICAgICAgICAgICAgICAgICAgICAgICAgICAgICAgICAgICAg ICAgICAgICAgICAgICAgICAgICAgICAgICAgICAgICAgICAgICAgICAgICANCiAgICAgICAgICAgICAg ICAgICAgICAgICAgICAgICAgICAgICAgICAgICAgIC AgICAgICAgICAgICAgICAgICAgICAgICAgICAgICAgICAgICAgICAgICAgICAgICAgICAgICANCjw/eH BsC6qfnIEdscN6H6hpEs1IDb7NTB8gm1WbPWOeAGtnedSdUteTGbDkPGYpRktQKsd7LZotQZ2UgVDgC4 RaV9WtIHdwVP9THRPaBFEwsNTtNOFcYYCmCkM2ZIHb JYiwXM9JfMZoSGanCBWzDRCiWhVoTUMxLNBzQMJuXKDeNPXYMQCbUOIpAlKeQBFyXFUfVA8JPZHxV658 yeUiAu0CHc9KPwDoTQ0khl6BGzIxYNKgDsiNOkk1HBslZK1GwFBfoYZvJaPmIKXTZwPjL0vgh3AqMjIj CEVUFRsiLD7Yy4QycZAtFLp+Zg0ENG0sb7CpMUfnNn NpSK6rlf9CDEuLZxYpC5KpaZdfYHiqTTUodDXUkSEgYTxoMBcrmIOpmQJkHX9FUTY4JYlcVS9zRDUuWP DiJhD8RDDLHM0ATSAfNIXjyNKyBIAkXJMKIS6GFXuqZNG7EFVdhjGerQYlMNneKM4BAFTfmsGfLbDyTJ BSDQo+Wg7NES8wo0RgOCsoJHAfMI6std0KDQjRIkVf A7Z3jAXwH5O3BIscZq6UEJVjNZApKzGbJGAEGOhuUH1PEN4zjqN2EF7LzJDuAQUhNSXxjOOfKVs1A43z aZElVMnoYR2SWGX+Claudia+Vv9APORlMXZuQPWxObJsKLLYCfKzS2HaO5SBg0AmC8KiSW43kWncqhXzSKys DY6QPW5cIDLiHCZWKC4YbCWneE4swiOkQoTlIRUXAb UjB26ypMWdLOIhWPKdZVPlFe5RAZCgV1GnosCvuXopkwGxESBzSKNJLL7RHUanmvTuhDCppHfbKC96uG ifCX1OIk2CNwUlAC8sja4TaPNbGt6UYHIvFW5TXPJjNXToBHQjMRJ7FOIxDeZiKOypPAWhMVMaZMM9EU DbASDuVQ4NBuLdUBWaPhU7JNIzZVDeCQTqpg2AFXIf GEBjLrIvDrWrCKLiAOSlXEzvVFWdYQHlXXD8EBZgHXAzLU6BPfOzJEKeAFYuQraqCLJbNNEuoq4RUFKt HZCaWAOrRRJdQGGfVELfZIqkYDFrWOV3Dct8MVCeGFMuDM4NVsHoWPJnBKo4LIXuCOWsBXRrta8UPKOc MDAxMDYxNyAwMDAwMCBuDQowMDAwMDEwODIxIDAwMD XbZP6XQgLxVUAsBLDrXOfaETJjMMZbdc4QDVVxJKReUFV3MGKjEZKaJQAjYUgsTKIyJKP0UEPvRDKyYF RrDD3LUyGvSACrCKlnZdlqECPaVVRhsz8SNYDmTHCsKMf1BxShAYJvLOVaJCmtHBWqSHT2OTJcLIQwAE BsVP7CAnApIQJeSxOwAsUrOYQsGPSgwp6YSOJlBTYw ZLFiPYEuPMNgSTUaJRswNDVfIUBaKRZmGPKjARAyJB2RXwPtDQUwSfU0MhWeHSJpOLPmnl7TWZGnAUQv RTV2KCNlMKZxBGHoOJrvFFLaELRfTWRnGTJyGCVtQV8APpQjUHIbXjAwGwygMWIaDVNvgn0JTGWdHIVp CqA8KMTpSETxUPPlWOmbQEFgDITkLzW2EMSgQLLgUE 2HGkPlBTWaQiGsKGLqUKHpWJFene9HTOFgXITfOVU2UMYwSEBpMZIbWXwnLLBsHUN4PYrpYVEpPIMdHU 4MMmKtILVmOuIjPMSbZCJrAWIaeq2VYZXxERGnXLP9MADaMHKlNETiEXsyVBOwAYI1AKr7BPBzKFFfHB 7BJvLcVBFnUipiKNgsSAEqLRNqlc5FMHEbFWVsRdIx KHKhDMLwCEDyKJdmIBMdBNS8CVD9FRHnAXOnFJ5DPoAnTAzwGCDHWqc2ANmjD6p3KIXmEB2BA0Uxs6Kq SmYaMBULIGrnLR9gxmEbNIXaWi1UX7zIJvnxQBZhRiqnUufvS1R6NuZkRKWfDvO3NiM3QoCyWUliHi8j WFItDJPgBDHrDHA5LkezDYN6KFBcZhvnYLlyKSVmLj HbInPuAG6IIq4DAjL1UDB2tNXxVz5FPzc9AZFLUbQjJU3OEJy= ID Date Data Source [id number] 04/25/2020 06:39:34 AM EDT [facility] XR CHEST FRONTAL ONLY [id number] RESULTI nterpreted by:Tahmina Girard [facility]: Exam: XR Chest, 1 View [...] rce(s) Supporting Document(s) ID Date Data Source [id number] 04/25/2020 09:32:15 AM EDT [facility] Name Value Range Interpretation Code Description Data Beronica rce(s) Supporting Document(s) Hepatitis A virus IgM Ab [Presence] in Serum or Plasma by Im munoassay Non Reactive [facility] No acute infection, susceptible to infec tion. Hepatitis B virus core IgM Ab [Presence] in Serum or Plasma by Immunoassay Non Reactive [facility] IgM antibodies to HBc were not detected, does not exclude the possibility of exposure to HBV. Hepatitis C virus Ab [Presence] in Serum or Plasma by Immuno assay Non Reactive [facility] No serological evidence of active infect ion. If recent exposure is suspected, test for HCV RNA. Hepatitis B virus surface Ag [Presence] in Serum or Plasma b y Immunoassay Non Reactive [facility] No active or previous infection. Suscept ible to infection. ID Date Data Source [id number] 04/25/2020 07:04:32 AM [facility] Name Value Range Interpretation Code Description Data Beronica rce(s) Supporting Document(s) Fibrin D-dimer FEU [Mass/volume] in Platelet poor plas ma by Immunoassay 12.78 ug/mL{FEU} <0.50 H [facility] Confirmed ID Date Data Source [id number] 04/25/2020 07:04:32 AM [facility] Value Range Interpretation Code Description Data Beronica rce(s) Supporting Document(s) Fibrinogen [Mass/volume] in Platelet poor plasma by Coagulat ion assay 245 mg/dl 190-450 [facility] ID Date Data Source [id number] 04/25/2020 07:04:32 AM [facility] Value Range Interpretation Code Description Data Beronica rce(s) Supporting Document(s) aPTT in Platelet poor plasma by Coagulation assay 62.5 s 24.0-33. 0 H [facility] ID Date Data Source [id number] 04/30/2020 12:14:10 PM [facility] Service Cmnt XXX-Imp : RT ACMicroorganis m XXX Cult : No growth 5 days Name Value Range Interpretation Code Description Data Beronica rce(s) Supporting Document(s) ID Date Data Source [id number] 04/30/2020 12:14:10 PM [facility] Cmnt XXX-Imp : LT HANDMicroorgan ism XXX Cult : No growth 5 days Name Value Range Interpretation Code Description Data Beronica rce(s) Supporting Document(s) ID Date Data Source [id number] 04/25/2020 04:45:07 AM [facility] Value Range Interpretation Code Description Data Beronica rce(s) Supporting Document(s) Prothrombin time (PT) 22.1 s 12.5-14.9 H [facility] INR in Platelet poor plasma by Coagulation assay 1.90 [facility] Routine intensity oral anticoagulation I NR is typically 2.0-3.0. Target INR must be clinically individualized. ID Date Data Source [id number] 04/25/2020 04:52:33 AM [facility] Value Range Interpretation Code Description Data Beronica rce(s) Supporting Document(s) Lipase [Enzymatic activity/volume] in Serum or Plasma 83 U/L 13-6 0 [facility] ID Date Data Source [id number] 04/25/2020 04:52:33 AM EDT [facility] Name Value Range Interpretation Code Description Data Beronica rce(s) Supporting Document(s) Albumin [Mass/volume] in Serum or Plasma by Bromocresol green (BCG) dye binding method 2.9 g/dL 3.5-5.2 [facility] Bilirubin.total [Mass/volume] in Serum or Plasma 13.5 mg/dL <1.2 [facility] Calcium [Mass/volume] in Serum or Plasma 7.9 mg/dL 8.6-10.0 L [facility] Chloride [Moles/volume] in Serum or Plasma 93 mmol/L 98-107 L [facility] Creatinine [Mass/volume] in Serum or Plasma 0.34 mg/dL 0.70-1.20 L [facility] Icteric Glucose [Mass/volume] in Serum or Plasma 85 mg/dL 70-140 [facility] Alkaline phosphatase [Enzymatic activity/volume] in Serum or Plasma 215 U/L 40-129 [facility] Potassium [Moles/volume] in Serum or Plasma 3.3 mmol/L 3.4-5.1 L [facility] Hemolyzed Protein [Mass/volume] in Serum or Plasma 8.2 g/dL 6.4-8.3 [facility] Sodium [Moles/volume] in Serum or Plasma 133 mmol/L 136-145 L [facility] Aspartate aminotransferase [Enzymatic activity/volume] in Serum or Plasma 436 U/L <40 H [facility] Hemolyzed Urea nitrogen [Mass/volume] in Serum or Plasma 2 mg/dL 6-20 L [facility] Osmolality of Serum or Plasma by calculation 272 mosm/kg 275-300 L [facility] Creatinine/Urea nitrogen [Mass Ratio] in Serum or Plasma 7 [facility] Bicarbonate [Moles/volume] in Serum 26 mmol/L 22-29 [facility] Alanine aminotransferase [Enzymatic activity/volume] in Seru m or Plasma 85 U/L <41 [facility] Anion gap 3 in Serum or Plasma 14 mmol/L 8-15 [facility] Glomerular filtration rate/1.73 sq M pre dicted among non-blacks [Volume Rate/Area] in Serum or Plasma by Creatinine-based formula (MDRD) >6 0 [facility] Glomerular filtration rate/1.73 sq M pre dicted among blacks [Volume Rate/Area] in Serum or Plasma by Creatinine-based formula (MDRD) >60 [facility] ID Date Data Source [id number] 04/25/2020 04:52:33 AM [facility] Name Value Range Interpretation Code Description Data Beronica rce(s) Supporting Document(s) Phosphate [Mass/volume] in Serum or Plasma 2.6 mg/dL 2.5-4.5 [facility] ID Date Data Source [id number] 04/25/2020 04:52:33 AM [facility] Name Value Range Interpretation Code Description Data Beronica rce(s) Supporting Document(s) Troponin T.cardiac [Mass/volume] in Serum or Plasma <0.01 [facility] ID Date Data Source [id number] 04/25/2020 06:28:05 AM [facility] Value Range Interpretation Code Description Data Beronica rce(s) Supporting Document(s) Leukocytes [#/volume] in Blood by Automated count 3.9 10*3/uL 4-10 L [facility] Erythrocytes [#/volume] in Blood by Automated count 3.21 10*6/uL 4.6- 6.1 L [facility] Hemoglobin [Mass/volume] in Blood 11.9 g/dL 13.5-18 L [facility] Hematocrit [Volume Fraction] of Blood by Automated count 32.8 % 4 1-53 L [facility] Erythrocyte mean corpuscular volume [Entitic volume] b y Automated count 102.1 fL 80-96 H [facility] Erythrocyte mean corpuscular hemoglobin [Entitic mass] by Automated count 37.0 pg 27-33 H [facility] Erythrocyte mean corpuscular hemoglobin concentration [Mass/volume] by Automated count 36.2 g/dL 32.0-36.0 [facility] Erythrocyte distribution width [Ratio] by Automated count 16.0 % 11.5-14.5 [facility] Platelets [#/volume] in Blood by Automated count 63 10*3/uL 150-400 L [facility] Differential cell count method - Blood [facility] Neutrophils/100 leukocytes in Blood by Automated count 66 % [facility] Lymphocytes/100 leukocytes in Blood by Automated count 23 % [facility] Monocytes/100 leukocytes in Blood by Automated count 5 % [facility] Eosinophils/100 leukocytes in Blood by Automated count 1 % [facility] Basophils/100 leukocytes in Blood by Automated count 2 % [facility] Neutrophils [#/volume] in Blood by Automated count 2.57 10*3/uL 1.8-7 .0 [facility] Lymphocytes [#/volume] in Blood by Automated count 0.90 10*3/uL 1.2-4 .0 L [facility] Monocytes [#/volume] in Blood by Automated count 0.20 10*3/uL 0-0.8 [facility] Eosinophils [#/volume] in Blood by Automated count 0.04 10*3/uL 0-0.5 [facility] Basophils [#/volume] in Blood by Automated count 0.08 10*3/uL 0-0.2 [facility] Band form neutrophils/100 leukocytes in Blood by Manual count 3 % [facility] Band form neutrophils [#/volume] in Blood by Manual count 0.12 10*3 /uL 0-0.6 [facility] Macrocytes [Presence] in Blood by Light microscopy [facility] Target cells [Presence] in Blood by Light microscopy [facility] ID Date Data Source [id number] 04/25/2020 06:37:45 AM [facility] Value Range Interpretation Code Description Data Beronica rce(s) Supporting Document(s) Ferritin [Mass/volume] in Serum or Plasma 2328 ng/ml 30-400 H [facility] Confirmed ID Date Data Source [id number] 04/25/2020 06:37:45 AM [facility] Value Range Interpretation Code Description Data Beronica rce(s) Supporting Document(s) Magnesium [Mass/volume] in Serum or Plasma 1.1 mg/dL 1.6-2.6 L [facility] ID Date Data Source [id number] 04/25/2020 09:32:25 AM [facility] Value Range Interpretation Code Description Data Beronica rce(s) Supporting Document(s) Cobalamin (Vitamin B12) [Mass/volume] in Serum or Plasma 2 11-946 [facility] ID Date Data Source [id number] 04/25/2020 09:32:25 AM [facility] Value Range Interpretation Code Description Data Beronica rce(s) Supporting Document(s) Iron [Mass/volume] in Serum or Plasma 114 ug/dl 59-158 [facility] Transferrin [Mass/volume] in Serum or Plasma 89 mg/dL 200-360 L [facility] Iron binding capacity [Mass/volume] in Serum or Plasma 124 ug/dl 228 -428 L [facility] Iron saturation [Mass Fraction] in Serum or Plasma 96.0 % 20-55 H [facility] ID Date Data Source [id number] 04/25/2020 09:12:34 AM EDT [facility] Name Value Range Interpretation Code Description Data Beronica rce(s) Supporting Document(s) Folate [Mass/volume] in Serum or Plasma 5.94 ng/mL >4.77 [facility] ID Date Data Source [id number] 04/25/2020 05:43:02 AM [facility] Value Range Interpretation Code Description Data Beronica rce(s) Supporting Document(s) Color of Urine [facility] Clarity of Urine [facility] Specific gravity of Urine by Refractometry automated 1.010 1.003 -1.030 [facility] pH of Urine by Automated test strip 6.0 5.0-8.0 [facility] Protein [Mass/volume] in Urine by Automated test strip Neg [facility] Glucose [Mass/volume] in Urine by Automated test strip Neg [facility] Ketones [Mass/volume] in Urine by Automated test strip 5 mg/dL Neg [facility] Bilirubin.total [Presence] in Urine by Automated test strip Negative [facility] False-positive results may occur with ce rtain food additives or medications. Hemoglobin [Presence] in Urine by Automated test strip Neg ative [facility] Leukocyte esterase [Presence] in Urine by Automated test strip Negative [facility] [facility] Nitrite [Presence] in Urine by Automated test strip [facility] Leukocytes [#/area] in Urine sediment by Automated count 0 -5 [facility] Erythrocytes [#/area] in Urine sediment by Automated count 1 /HPF 0-3 [facility] Service comment [facility] Hyaline casts [#/area] in Urine sediment by Microscopy low p ower field 1 /LPF None [facility] ID Date Data Source [id number] 04/25/2020 04:45:32 AM EDT [facility] Name Value Range Interpretation Code Description Data Beronica rce(s) Supporting Document(s) Lactate [Moles/volume] in Serum or Plasma 4.2 mmol/l 0.5-2.2 [facility] Results called to and read back by jewell cole [id number] RN @ [id number] 04.25.20 [id number] ID Date Data Source [id number] 04/25/2020 05:50:35 AM [facility] Cmnt XXX-Imp : NoneMicroorganism XXX Cult : 2019 nCoV Real-Time RT-PCR: NOT DETECTEDTest performed using [employer] Respiratory Panel. This test is only for use under Food and Drug Administration's Emergency Use Authorization.Additional information is available on the following FDA websites for health care providers and patients. https://www.fda.gov/media/775858/download , https://www.fda.gov/me tin/404921/downloadPolymerase chain reaction is NEGATIVE for Influenza A H1, H3 and 2009 H1 viruses, Influenza B virus, Respiratory syncytial virus, Human metapneumovirus, Parainfluenza virus 1,2,3 and 4, Adenovirus, Rhinovirus/ Enterovirus, Coronavirus HKU1, NL63, OC43 and 229E, Bordetella pertussis, B. parapertussis, Mycoplasma pneumoniae and Chlamydia pneumoniae. Name Value Range Interpretation Code Description Data Beronica rce(s) Supporting Document(s) ID Date Data Source [id number] 04/25/2020 03:59:00 AM [facility] Cmnt XXX-Imp : NoneMicroorganism XXX Cult : 2019 nCoV Real-Time RT-PCR: NOT DETECTEDTest performed using [employer] Respiratory Panel. This test is only for use under Food and Drug Administration's Emergency Use Authorization.Additional information is available on the following FDA websites for health care providers and patients. https://www.fda.gov/media/747072/download , https://www.fda.gov/me tin/863198/downloadPolymerase chain reaction is NEGATIVE for Influenza A H1, H3 and 2009 H1 viruses, Influenza B virus, Respiratory syncytial virus, Human metapneumovirus, Parainfluenza virus 1,2,3 and 4, Adenovirus, Rhinovirus/ Enterovirus, Coronavirus HKU1, NL63, OC43 and 229E, Bordetella pertussis, B. parapertussis, Mycoplasma pneumoniae and Chlamydia pneumoniae. Name Value Range Interpretation Code Description Data Beronica rce(s) Supporting Document(s) Microorganism identified in Unspecified specimen by [facility] This lab was ordered by [facility] and reported by [facility]. ID Date Data Source [id number] 11/04/2019 12:00:00 AM EDT eCW1 ([facility]) Name Value Range Interpretation Code Description Data Beronica rce(s) Supporting Document(s) Microalbumin/Creatinine [Mass Ratio] in Urine 74.6 CREATININE, URINE eCW1 ([facility]) Albumin/Creatinine [Mass Ratio] in Urine 53.3 MALB URINE SIEMENS eCW1 ([facility]) Microalbumin/Creatinine [Ratio] in Urine 71.4 0.0-30.0 MEJIA/CREAT RATIO eCW1 ([facility]) ID Date Data Source [id number] 11/04/2019 12:00:00 AM EDT eCW1 ([facility]) Name Value Range Interpretation Code Description Data Beronica rce(s) Supporting Document(s) Hemoglobin A1c/Hemoglobin.total in Blood 6.4 HEMOGLOBIN A1c eCW1 ([facility]) Procedure Social History Code Duration Value Status Description Data Source(s ) Smoking 08/10/2020 12:00:00 AM EST Former Smoker completed Former Smoker eCW1 ([facility]) Smoking 08/10/2020 12:00:00 AM EST Former Smoker completed Former Smoker eCW1 ([facility]) Smoking 08/10/2020 12:00:00 AM EST Former Smoker completed Former Smoker eCW1 ([facility]) Smoking 07/27/2020 12:00:00 AM EST Former Smoker completed Former Smoker eCW1 ([facility]) Alcohol intake 07/08/2020 12:00:00 AM EST Current drinker of al cohol (finding) completed Current drinker of alcohol (finding) [facility] Tobacco use and exposure 07/08/2020 12:00:00 AM EST Never used co mpleted Never used [facility] Cigarette pack-years 07/08/2020 12:00:00 AM EST UNK completed [facility] Cigarettes smoked current (pack per day) - Reported 07/08/20 12:00:00 AM EST UNK completed [facility] Smoking 07/08/2020 12:00:00 AM EST Light tobacco smoker comple rosa Light tobacco smoker [facility] Smoking 06/08/2020 12:00:00 AM EDT Former Smoker completed Former Smoker eCW1 ([facility]) Smoking 06/08/2020 12:00:00 AM EDT Former Smoker completed Former Smoker eCW1 ([facility]) Smoking 06/08/2020 12:00:00 AM EDT Former Smoker completed Former Smoker eCW1 ([facility]) Smoking 04/30/2020 12:00:00 PM EDT Ex-smoker (finding) completed Former Smoker NETSMART ([facility]) Alcohol intake 04/26/2020 12:00:00 AM EDT Current drinker of al cohol (finding) completed Current drinker of alcohol (finding) [facility] Smoking 02/07/2020 12:00:00 AM EDT Former Smoker completed Former Smoker eCW1 ([facility]) Smoking 02/07/2020 12:00:00 AM EDT Former Smoker completed Former Smoker eCW1 ([facility]) Smoking 02/07/2020 12:00:00 AM EDT Former Smoker completed Former Smoker eCW1 ([facility]) Smoking 02/07/2020 12:00:00 AM EDT Former Smoker completed Former Smoker eCW1 ([facility]) Vital Signs ID Date Data Source UNK Name Value Range Interpretation Code Description Data Source(s) Body surface area Derived from formula 2.09 m2 2.09 m2 [facility] ([facility], ) Body weight 82.272 kg 82.272 kg [facility] ([facility], ) [place] body weight 190 [lb_av] 190 [lb_av] [facility] Body mass index (BMI) [Ratio] 23.3 kg/m2 23.3 k g/m2 [facility] ([facility], ) Body weight 181.38 [lb_av] 181.38 [lb_av] [facility] T ([facility]) Body height 74 [in_i] 74 [in_i] [facility] ([facility]) 6'2" Diastolic blood pressure 74 mm[Hg] 74 mm[Hg] [facility] ([facility]) Systolic blood pressure 109 mm[Hg] 109 mm[Hg] M [facility] ([facility]) Body surface area Derived from formula 2.15 m2 2.15 m2 [facility] ([facility]) Body weight 88.622 kg 88.622 kg [facility] ([facility]) [place] body weight 190 [lb_av] 190 [lb_av] [facility] T ([facility]) Body mass index (BMI) [Ratio] 25.1 kg/m2 25.1 k g/m2 [facility] ([facility]) Body weight 195.38 [lb_av] 195.38 [lb_av] [facility] T ([facility]) Body height 74 [in_i] 74 [in_i] [facility] ([facility]) 6'2" Diastolic blood pressure 69 mm[Hg] 69 mm[Hg] [facility] ([facility]) Systolic blood pressure 102 mm[Hg] 102 mm[Hg] [facility] ([facility]) Body surface area Derived from formula 2.16 m2 2.16 m2 [facility] ([facility]) Body weight 89.870 kg 89.870 kg [facility] ([facility]) [place] body weight 190 [lb_av] 190 [lb_av] [facility] T ([facility]) Body mass index (BMI) [Ratio] 25.4 kg/m2 25.4 k g/m2 [facility] ([facility]) Body weight 198.12 [lb_av] 198.12 [lb_av] [facility] ([facility]) Body height 74 [in_i] 74 [in_i] [facility] 6'2" Heart rate 98 /min 98 /min [facility] ([facility]) Diastolic blood pressure 65 mm[Hg] 65 mm[Hg] [facility], ) Systolic blood pressure 96 mm[Hg] 96 mm[Hg] [facility] Diastolic blood pressure 84 mm[Hg] 84 mm[Hg] eCW1 ([facility]) Systolic blood pressure 118 mm[Hg] 118 mm[Hg] e CW1 ([facility]) Body temperature 97.7 [degF] 97.7 [degF] eCW1 ( [facility]) Respiratory rate 19 /min 19 /min eCW1 ([facility]) Heart rate 101 /min 101 /min eCW1 ([facility]) Body mass index (BMI) [Ratio] 25.50 kg/m2 25.50 kg/m2 [facility] ([facility]) Body height 75 [in_i] 75 [in_i] eCW1 ([facility]) Body weight 204 [lb_av] 204 [lb_av] eCW1 ([facility]) [place] body weight 190 [lb_av] 190 [lb_av] [facility] T ([facility], ) Body mass index (BMI) [Ratio] 26.7 kg/m2 26.7 k g/m2 [facility] ([facility], ) Body weight 208.00 [lb_av] 208.00 [lb_av] [facility] T ([facility], ) Body height 74 [in_i] 74 [in_i] [facility] ([facility], ) 6'2" Diastolic blood pressure 68 mm[Hg] 68 mm[Hg] [facility] ([facility]) Systolic blood pressure 100 mm[Hg] 100 mm[Hg] [facility], ) Body weight 94.349 kg 94.349 kg [facility] ([facility]) Diastolic blood pressure 70 mm[Hg] 70 mm[Hg] eCW1 ([facility]) Systolic blood pressure 124 mm[Hg] 124 mm[Hg] e CW1 ([facility]) Body temperature 97.8 [degF] 97.8 [degF] eCW1 ( [facility]) Respiratory rate 18 /min 18 /min eCW1 ([facility]) Heart rate 80 /min 80 /min eCW1 ([facility]) Body mass index (BMI) [Ratio] 28.87 kg/m2 28.87 kg/m2 eCW1 ([facility]) Body height 75 [in_i] 75 [in_i] eCW1 ([facility]) Body weight 231 [lb_av] 231 [lb_av] eCW1 ([facility]) Diastolic blood pressure 86 mm[Hg] 86 mm[Hg] eCW1 ([facility]) Systolic blood pressure 122 mm[Hg] 122 mm[Hg] e CW1 ([facility]) Body temperature 99.0 [degF] 99.0 [degF] eCW1 ( [facility]) Respiratory rate 18 /min 18 /min eCW1 ([facility]) Heart rate 95 /min 95 /min eCW1 ([facility]) Body mass index (BMI) [Ratio] 29.00 kg/m2 29.00 kg/m2 W1 ([facility]) Body height 75 [in_us] 75 [in_us] eCW1 ([facility]) Body weight Measured 232.06 [lb_av] 232.06 [lb_ av] eCW1 ([facility]) Body mass index (BMI) [Ratio] 30.49 kg/m2 30.49 kg/m2 eCW1 ([facility]) Body height 75 [in_us] 75 [in_us] eCW1 ([facility]) Body weight Measured 244 [lb_av] 244 [lb_av] eC W1 ([facility]) Diastolic blood pressure 90 mm[Hg] 90 mm[Hg] eCW1 ([facility]) Systolic blood pressure 124 mm[Hg] 124 mm[Hg] e CW1 ([facility]) Body temperature 97.8 [degF] 97.8 [degF] eCW1 ( [facility]) Respiratory rate 20 /min 20 /min eCW1 ([facility]) Heart rate 96 /min 96 /min eCW1 ([facility]) Body mass index (BMI) [Ratio] 30.49 kg/m2 30.49 kg/m2 eCW1 ([facility]) Body height 75 [in_us] 75 [in_us] eCW1 ([facility]) Body weight Measured 244 [lb_av] 244 [lb_av] eC W1 ([facility]) ID Date Data Source [id number] 05/19/2020 09:54:53 AM EDT [facility] Name Value Range Interpretation Code Description Data Source(s) WEIGHT RECORDED 218 lb 218 lb [facility] WEIGHT RECORDED 177.6 lb 177.6 lb [facility] WEIGHT RECORDED 212.8 lb 212.8 lb [facility] Body height Measured 75 in 75 in [facility] TRANSFER FROM [facility] Patient Treatment Plan of Care Planned Activity Planned Date Details Description Data Source (s) Abdominal Binder/Elastic Large - 08/27/2020 12:00:00 AM EST eCW1 ([facility]) Abdominal Binder/Elastic Large - 08/27/2020 12:00:00 AM EST eCW1 ([facility]) Abdominal Binder/Elastic Large - 08/27/2020 12:00:00 AM EST eCW1 ([facility]) Amitriptyline Hydrochloride 25 MG Oral Tablet 08/10/2020 12:00:00 A M EST eCW1 ([facility]) Amitriptyline Hydrochloride 25 MG Oral Tablet 08/10/2020 12:00:00 A M EST eCW1 ([facility]) Amitriptyline Hydrochloride 25 MG Oral Tablet 08/10/2020 12:00:00 A M EST eCW1 ([facility]) Furosemide 40 MG Oral Tablet 07/27/2020 12:00:00 AM EST eCW1 ([facility]) Spironolactone 100 MG Oral Tablet 07/27/2020 12:00:00 AM EST eCW1 ([facility]) Ondansetron 4 MG Oral Tablet 07/27/2020 12:00:00 AM EST eCW1 ([facility]) Amitriptyline Hydrochloride 10 MG Oral Tablet 06/08/2020 12:00:00 A M EDT eCW1 ([facility]) Amitriptyline Hydrochloride 10 MG Oral Tablet 06/08/2020 12:00:00 A M EDT eCW1 ([facility]) Amitriptyline Hydrochloride 10 MG Oral Tablet 06/08/2020 12:00:00 A M EDT eCW1 ([facility]) Vitamin K 1 5 MG Oral Tablet 05/28/2020 12:00:00 AM EDT eCW1 ([facility]) Vitamin K 1 5 MG Oral Tablet 05/28/2020 12:00:00 AM EDT eCW1 ([facility]) Hydrocortisone 10 MG Oral Tablet 05/12/2020 12:00:00 AM [facility] Hydrocortisone 10 MG Oral Tablet 05/12/2020 12:00:00 AM [facility] Melatonin 3 MG Oral Tablet 05/11/2020 10:00:00 PM [facility] Promethazine Hydrochloride 25 MG/ML Injectable Solutio n 05/11/2020 12:10:[address] [facility] Meclizine Hydrochloride 12.5 MG Oral Tablet 05/11/2020 12:10:20 PM [facility] Thiamine 100 MG Oral Tablet 05/11/2020 12:00:00 AM [facility] Hydrocortisone 5 MG Oral Tablet 05/11/2020 12:00:00 AM [facility] Hydrocortisone 10 MG Oral Tablet 05/11/2020 12:00:00 AM [facility] Folic Acid 1 MG Oral Tablet 05/11/2020 12:00:00 AM [facility] Calcium Carbonate 1250 MG / Cholecalciferol 200 UNT Or al Tablet 05/11/2020 12:00:[address] [facility] Aluminum Hydroxide 40 MG/ML / Magnesium Hydroxide 40 MG/ML / Simethicone 4 MG/ML Oral Suspension 05/11/2020 12:00:00 AM [facility] Ondansetron 4 MG Oral Tablet 05/11/2020 12:00:00 AM [facility] Meclizine Hydrochloride 12.5 MG Oral Tablet 05/11/2020 12:00:00 AM [facility] Meclizine Hydrochloride 12.5 MG Oral Tablet 05/11/2020 12:00:00 AM [facility] Hydrocortisone 5 MG Oral Tablet 05/11/2020 12:00:00 AM [facility] Hydrocortisone 10 MG Oral Tablet 05/11/2020 12:00:00 AM [facility] Aluminum Hydroxide 40 MG/ML / Magnesium Hydroxide 40 MG/ML / Simethicone 4 MG/ML Oral Suspension 05/11/2020 12:00:00 AM [facility] Hydrocortisone 5 MG Oral Tablet 05/11/2020 12:00:00 AM [facility] Hydrocortisone 5 MG Oral Tablet 05/11/2020 12:00:00 AM [facility] Oxycodone Hydrochloride 5 MG Oral Tablet 05/09/2020 01:13:10 PM [facility] Acetaminophen 325 MG / Hydrocodone Bitartrate 5 MG Ora l Tablet 05/06/2020 12:00:[address] [facility] Thiamine 100 MG Oral Tablet 05/06/2020 12:00:00 AM [facility] Ondansetron 4 MG Oral Tablet 05/06/2020 12:00:00 AM [facility] Tab-A-Franki/Beta Carotene Oral Tablet 05/06/2020 12:00:00 AM [facility] Meclizine Hydrochloride 12.5 MG Oral Tablet 05/06/2020 12:00:00 AM [facility] Folic Acid 1 MG Oral Tablet 05/06/2020 12:00:00 AM [facility] Calcium Carbonate 1250 MG / Cholecalciferol 200 UNT Or al Tablet 05/06/2020 12:00:[address] [facility] Dextromethorphan Hydrobromide 2 MG/ML / Guaifenesin 20 MG/ML Oral Suspension 04/28/2020 07:00:00 PM [facility] sodium chloride (preservative free) 0.9 % flush 10 mL 04/27/2020 02:17:[address] [facility] dextrose 50 % IV solution 25 mL 04/25/2020 03:04:32 AM [facility] Glucagon 1 MG Injection 04/25/2020 03:04:32 AM [facility] Glucose 0.417 MG/MG Oral Gel 04/25/2020 03:04:32 AM EDT [facility] Meclizine Hydrochloride 25 MG Chewable Tablet 02/07/2020 12:00:00 A M EDT eCW1 ([facility]) Naltrexone hydrochloride 50 MG Oral Tablet 02/07/2020 12:00:00 AM E DT eCW1 ([facility]) doxycycline hyclate 50 MG Oral Capsule 01/01/2020 12:00:00 AM EDT eCW1 ([facility]) doxycycline hyclate 50 MG Oral Capsule 01/01/2020 12:00:00 AM EDT eCW1 ([facility]) Metformin hydrochloride 500 MG Oral Tablet 11/11/2019 12:00:00 AM E DT eCW1 ([facility]) Clindamycin 10 MG/ML Topical Lotion [Cleocin-T] 10/14/2019 12:00:00 AM EST eCW1 ([facility]) adapalene 1 MG/ML Topical Lotion [Differin] 10/14/2019 12:00:00 AM EST eCW1 ([facility]) doxycycline hyclate 100 MG Oral Capsule [facility] atorvastatin 20 MG Oral Tablet [facility] Metformin hydrochloride 500 MG Oral Tablet [facility]
--- NOTE | 2020-09-11 04:22 | REPVR ---
PROCEDURE INFORMATION: Exam: CT Abdomen And Pelvis With Contrast Exam date and time: 09/11/2020 3:00 AM Age: 49 years old Clinical indication: Abdominal pain; Periumbilical; Additional info: Incarcerated umbilical hernia TECHNIQUE: Imaging protocol: Computed tomography of the abdomen and pelvis with intravenous contrast. Radiation optimization: All CT scans at this facility use at least one of these dose optimization techniques: automated exposure control; mA and/or kV adjustment per patient size (includes targeted exams where dose is matched to clinical indication); or iterative reconstruction. Contrast material: ISO; Contrast volume: 100 ml; Contrast route: INTRAVENOUS (IV); COMPARISON: CT ABD PELVIS W/O CONTRAST 07/14/2020 5:10 PM FINDINGS: Lungs: Mild bibasilar fibro-atelectatic change. There are minimal subpleural nodular densities in the anterior right middle lobe measuring 5 mm and the lateral right lower lobe measuring 5 mm. Liver: The liver at mid clavicular line measures 11.9 cm. Gallbladder and bile ducts: Minimal gallstones and sludge are noted in the gallbladder. Pancreas: Normal. No ductal dilation. Spleen: The spleen measures 15.1 cm with multiple calcifications. Adrenal glands: Normal. No mass. Kidneys and ureters: Normal. No hydronephrosis. Stomach and bowel: There is borderline to mild distention of proximal small bowel with air-fluid levels extending to a left periumbilical hernia. There is collapse of the efferent small bowel consistent with incarcerated umbilical hernia which persists since the prior study with slightly less proximal distention of small bowel. The distal ileum is collapsed. Much of the colon is collapsed or contracted. There is minimal colonic wall thickening with pericolonic induration which extends from the transverse colon to the rectum and is slightly increased since the prior study. Appendix: A normal appendix is seen. Intraperitoneal space: Unremarkable. No free air. No significant fluid collection. Retroperitoneal space: There is right retroperitoneal induration in the anterior pararenal space with thickening and slight fluid in the right pericolic gutter which is similar in the retroperitoneum to the prior study, however, there is decreased fluid in the right pericolic gutter. Vasculature: Unremarkable. No abdominal aortic aneurysm. Lymph nodes: Unremarkable. No enlarged lymph nodes. Urinary bladder: Unremarkable as visualized. Reproductive: Unremarkable as visualized. Bones/joints: Unremarkable. No acute fracture. Soft tissues: Left periumbilical hernia. IMPRESSION: 1. Incarcerated left periumbilical hernia containing a short segment of small bowel with secondary small bowel obstruction which persists since 07/14/2020. The degree of obstruction and prominence of the incarcerated hernia is slightly decreased since the prior study. 2. Mild bibasilar fibro-atelectatic change with minimal subpleural nodules in the right middle lobe and lateral right lower lobe which are unchanged from the prior study. 3. Minimal cholelithiasis and sludge. 4. Mild splenomegaly with old granulomatous disease. 5. Decreased peritoneal ascites since the prior study. There is persistent thickening and induration of the right anterior pararenal fascia of uncertain etiology but has changed little. 6. Mild nonspecific colitis, greatest distal to the mid transverse colon which is slightly increased overall since the prior study. Electronically signed by: Dru Garcia On 09/11/2020 04:22:00 AM
[2020-09-11] MEDS ORDERED: NS 1,000 ML IV SCH (06:25)
--- OUTSIDE RECORDS SUMMARY | 2020-09-11 06:37 | CCD ---
Author Author [facility] Organization [facility] Address Unknown Phone Unavailable Care Team Providers Care Wall Man Name Role Phone Stefania WHITE MD Unavailable [...] is protected by Article 27-F of the [facility] Public Health law. If you continue you may have access to information: Regarding HIV / AIDS; Provided by facilities licensed or operated by the [facility] Office of Mental Health; or Provided by the [facility] Office for People With Developmental Disabilities. If such information is present, then the following [facility] mandated warning applies: This information has [...] law may result in a fine or long term sentence or both. A general authorization for the release of medical or other information is NOT sufficient authorization for further disc losure. Allergies and Adverse Reactions Type Description Substance Reaction Status Data Source(s ) Drug Class NO KNOWN ALLERGIES NO KNOWN ALLERGIES [facility] Encounters Encounter Providers Location Date Indications Data Source(s ) Unknown [address] [facility] [address] 08/27/2020 12:00:00 AM EST eCW1 ([facility]) Unknown [address] [facility] [place] [address] 08/26/2020 12:00:00 AM EST eCW1 ([facility]) Unknown [address] [facility] [place] [address] 07/29/2020 12:00:00 AM EST eCW1 ([facility]) Outpatient Attender: LIN Gottlieb/Kajal/Ilir/ Reinliborio 07/23/2020 08:00:00 AM EST MEDENT ([facility]) Outpatient Attender: KATHY ALFORD 07/15/2020 12:00:00 AM E [facility] Outpatient Attender: KATHY ALFORD [id number] 12:00:00 AM EST - 07/08/2020 02:35:16 PM [facility] Unknown [address] [facility] [place] [address] 07/02/2020 12:00:00 AM EST eCW1 ([facility]) Outpatient Attender: Gerard Marcos 07/01/2020 12:00:00 AM E [facility] Unknown [address] [facility] [place] [address] 06/29/2020 12:00:00 AM EST eCW1 ([facility]) Outpatient Attender: LIN Gottlieb/Kajal/Ilir/ Reindl 06/16/2020 10:50:00 AM EDT MEDENT ([facility]) Outpatient [address] [facility] [address] 06/08/2020 12:00:00 AM EDT eCW1 ([facility]) Unknown [address] [facility] [address] 05/29/2020 12:00:00 AM EDT eCW1 ([facility]) Unknown [address] [facility] [address] 05/28/2020 12:00:00 AM EDT eCW1 ([facility]) Outpatient Attender: LIN Gottlieb/Kajal/Ilir/ Reindl 05/19/2020 01:30:00 PM EDT MEDMAURILIO ([facility]) Outpatient Attender: YAHIR VILLAR MDReferrer: YAHIR VILLAR MD 05/07/2020 12:00:[address] [facility] Outpatient Attender: YAHIR VILLAR MDReferrer: YAHIR VILLAR MD 05/07/2020 12:00:[address] [facility] Outpatient Attender: LUDIN THORPE MD [id number] 05/04/2020 10:28:[address] [facility] Unlisted evaluation and management service 04/21 06:10:00 PM EDT NETSMART ([facility]) Inpatient Attender: Onel Adam santiago: YAHIR VILLAR MDAttender: CHIQUI PADRON RESIDENTAttender: REGINA MONTANEZ MDAdmitter: REGINA MONTANEZ MDReferrer: REGINA MONTANEZ MD [id number] 04/25/2020 12:00:00 AM EDT - 05/11/2020 02:37:00 PM EDT Alcoholic hepatitis without ascites [facility] Alcoholic hepatitis without ascites Patient discharged. Unknown [address] [facility] [address] 03/10/2020 12:00:00 AM EDT eCW1 ([facility]) Outpatient [address] [facility] [address] 02/07/2020 12:00:00 AM EDT eCW1 ([facility]) Unknown [address] [facility] [address] 02/04/2020 12:00:00 AM EDT eCW1 ([facility]) Outpatient 01/23/2020 04:24:00 AM EDT [facility] Resident [address] [place] [phone] 01/21/2020 12:00:00 AM EDT eCW1 ([facility]) [facility] [place] [address] [facility] [address] 01/14/2020 12:00:00 AM EDT eCW1 ([facility]) [facility] [place] [address] [facility] [place] [address] 01/09/2020 12:00:00 AM EDT eCW1 ([facility]) [facility] Res[facility] [address] [place] [phone] 01/06/2020 12:00:00 AM EDT eCW1 ([facility]) [facility] Res[facility] [address] [place] [phone] 12/31/2019 12:00:00 AM EDT eCW1 ([facility]) [facility] [place] [address] [facility] [place] [address] 12/31/2019 12:00:00 AM EDT eCW1 ([facility]) [facility] Res[facility] [address] [place] [phone] 12/30/2019 12:00:00 AM EDT eCW1 ([facility]) [facility] [place] [address] [place] [address] [place] [address] 12/23/2019 12:00:00 AM EDT eCW1 ([facility]) [facility] Res[facility] [address] [place] [phone] 12/23/2019 12:00:00 AM EDT eCW1 ([facility]) [facility] Resident [address] [place] [phone] 11/11/2019 12:00:00 AM EDT eCW1 ([facility]) [facility] [address] [place] [address] 11/08/2019 12:00:00 AM EDT eCW1 ([facility]) [facility] Res[facility] [address] [place] [phone] 11/08/2019 12:00:00 AM EDT eCW1 ([facility]) [facility] Res[facility] [address] [place] [phone] 11/05/2019 12:00:00 AM EDT eCW1 ([facility]) [facility] Res[facility] [address] [place] [phone] 10/14/2019 12:00:00 AM EST eCW1 ([facility]) [facility] [address] [facility] [address] 09/23/2019 12:00:00 AM EST eCW1 ([facility]) Outpatient 09/21/2019 09:01:00 AM EST [facility] [address] [facility] [place] [address] 09/12/2019 12:00:00 AM EST eCW1 ([facility]) Medications Medication Brand Name Start Date Product Form Dose Route Admi nistrative Instructions Pharmacy Instructions Status Indications Reaction Description Data Source(s) Abdominal Binder/Elastic Large - Abdominal Binder/Elastic La rge - 08/27/2020 12:00:00 AM EST active Abdomina l Binder/Elastic Large - eCW1 ([facility]) Abdominal Binder/Elastic Large - Abdominal Binder/Elastic La rge - 08/27/2020 12:00:00 AM EST active Abdomina l Binder/Elastic Large - eCW1 ([facility]) Abdominal Binder/Elastic Large - Abdominal Binder/Elastic La rge - 08/27/2020 12:00:00 AM EST active Abdomina l Binder/Elastic Large - eCW1 ([facility]) Amitriptyline Hydrochloride 25 MG Oral Tablet Amitript yline HCl 25 MG Amitriptyline HCl 25 MG 08/10/2020 12:00:00 AM EST 1.0 {tablet_at_b edtime} active Amitriptyline HCl 25 MG e CW1 ([facility]) Amitriptyline Hydrochloride 25 MG Oral Tablet Amitript yline HCl 25 MG Amitriptyline HCl 25 MG 08/10/2020 12:00:00 AM EST 1.0 {tablet_at_b edtime} active Amitriptyline HCl 25 MG e CW1 ([facility]) Amitriptyline Hydrochloride 25 MG Oral Tablet Amitript yline HCl 25 MG Amitriptyline HCl 25 MG 08/10/2020 12:00:00 AM EST 1.0 {tablet_at_b edtime} active Amitriptyline HCl 25 MG e CW1 ([facility]) Ondansetron 4 MG Oral Tablet Ondansetron HCl 4 MG Ondansetro n HCl 4 MG 07/27/2020 12:00:00 AM EST 1.0 {tablet} active Ondansetron HCl 4 MG eCW1 ([facility]) Ondansetron 4 MG Oral Tablet Ondansetron HCl 4 MG Ondansetro n HCl 4 MG 07/27/2020 12:00:00 AM EST 1.0 {tablet} active Ondansetron HCl 4 MG eCW1 ([facility]) Spironolactone 100 MG Oral Tablet Spironolactone 100 MG 02/2020 12:00:00 AM EST 1.0 {tablet} active Spironolact one 100 MG eCW1 ([facility]) Spironolactone 100 MG Oral Tablet Spironolactone 100 MG 02/2020 12:00:00 AM EST 1.0 {tablet} active Spironolact one 100 MG eCW1 ([facility]) Furosemide 40 MG Oral Tablet Furosemide 40 MG 07/27/2020 12:00:00 A M EST 1.0 {tablet} active Furosemide 40 MG eCW1 ( [facility]) Ondansetron 4 MG Oral Tablet Ondansetron HCl 4 MG Ondansetro n HCl 4 MG 07/27/2020 12:00:00 AM EST 1.0 {tablet} active Ondansetron HCl 4 MG eCW1 ([facility]) Spironolactone 100 MG Oral Tablet Spironolactone 100 MG 02/2020 12:00:00 AM EST 1.0 {tablet} active Spironolact one 100 MG eCW1 ([facility]) Ondansetron 4 MG Oral Tablet Ondansetron HCl 4 MG Ondansetro n HCl 4 MG 07/27/2020 12:00:00 AM EST 1.0 {tablet} active Ondansetron HCl 4 MG eCW1 ([facility]) Furosemide 40 MG Oral Tablet Furosemide 40 MG 07/27/2020 12:00:00 A M EST 1.0 {tablet} active Furosemide 40 MG eCW1 ( [facility]) Furosemide 40 MG Oral Tablet Furosemide 40 MG 07/27/2020 12:00:00 A M EST 1.0 {tablet} active Furosemide 40 MG eCW1 ( [facility]) Furosemide 40 MG Oral Tablet Furosemide 40 MG 07/27/2020 12:00:00 A M EST 1.0 {tablet} active Furosemide 40 MG eCW1 ( [facility]) Spironolactone 100 MG Oral Tablet Spironolactone 100 MG 02/2020 12:00:00 AM EST 1.0 {tablet} active Spironolact one 100 MG eCW1 ([facility]) Ondansetron 4 MG Oral Tablet Ondansetron HCL 07/23/2020 12:00:00 AM EST completed MEDENT ([facility] ) Amitriptyline Hydrochloride 10 MG Oral Tablet Amitript yline HCl 10 MG Amitriptyline HCl 10 MG 06/08/2020 12:00:00 AM EDT 1.0 {tablet_at_b edtime} active Amitriptyline HCl 10 MG e CW1 ([facility]) Amitriptyline Hydrochloride 10 MG Oral Tablet Amitript yline HCl 10 MG Amitriptyline HCl 10 MG 06/08/2020 12:00:00 AM EDT 1.0 {tablet_at_b edtime} active Amitriptyline HCl 10 MG e CW1 ([facility]) Amitriptyline Hydrochloride 10 MG Oral Tablet Amitript yline HCl 10 MG Amitriptyline HCl 10 MG 06/08/2020 12:00:00 AM EDT 1.0 {tablet_at_b edtime} active Amitriptyline HCl 10 MG e CW1 ([facility]) Amitriptyline Hydrochloride 10 MG Oral Tablet Amitript yline HCl 10 MG Amitriptyline HCl 10 MG 06/08/2020 12:00:00 AM EDT 1.0 {tablet_at_b edtime} active Amitriptyline HCl 10 MG e CW1 ([facility]) Vitamin K 1 5 MG Oral Tablet Phytonadione 5 MG Phytonadione 5 MG 05/28/2020 12:00:00 AM EDT 1.0 {tablet} suspended Phytonadione 5 MG eCW1 ([facility]) Vitamin K 1 5 MG Oral Tablet Phytonadione 5 MG Phytonadione 5 MG 05/28/2020 12:00:00 AM EDT 1.0 {tablet} suspended Phytonadione 5 MG eCW1 ([facility]) Vitamin K 1 5 MG Oral Tablet Phytonadione 5 MG Phytonadione 5 MG 05/28/2020 12:00:00 AM EDT 1.0 {tablet} suspended Phytonadione 5 MG eCW1 ([facility]) Vitamin K 1 5 MG Oral Tablet Phytonadione 5 MG Phytonadione 5 MG 05/28/2020 12:00:00 AM EDT 1.0 {tablet} suspended Phytonadione 5 MG eCW1 ([facility]) Vitamin K 1 5 MG Oral Tablet Phytonadione 5 MG Phytonadione 5 MG 05/28/2020 12:00:00 AM EDT 1.0 {tablet} suspended Phytonadione 5 MG eCW1 ([facility]) Vitamin K 1 5 MG Oral Tablet Phytonadione 5 MG Phytonadione 5 MG 05/28/2020 12:00:00 AM EDT 1.0 {tablet} suspended Phytonadione 5 MG eCW1 ([facility]) Vitamin K 1 5 MG Oral Tablet Phytonadione 5 MG Phytonadione 5 MG 05/28/2020 12:00:00 AM EDT 1.0 {tablet} active Ph ytonadione 5 MG eCW1 ([facility]) Vitamin K 1 5 MG Oral Tablet Phytonadione 5 MG Phytonadione 5 MG 05/28/2020 12:00:00 AM EDT 1.0 {tablet} suspended Phytonadione 5 MG eCW1 ([facility]) Vitamin K 1 5 MG Oral Tablet Phytonadione 5 MG Phytonadione 5 MG 05/28/2020 12:00:00 AM EDT 1.0 {tablet} active Ph ytonadione 5 MG eCW1 ([facility]) Hydrocortisone 10 MG Oral Tablet Hydrocortisone 10 MG Oral Tablet (CORTEF) Hydrocortisone 10 MG Oral Tablet (CORTEF) 05/12/2020 12:00:00 AM EDT 10 mg Oral aborted Take 1 tablet by [facility] Hydrocortisone 10 MG Oral Tablet Hydrocortisone 10 MG Oral Tablet (CORTEF) Hydrocortisone 10 MG Oral Tablet (CORTEF) 05/12/2020 12:00:00 AM EDT 10 mg Oral aborted Take 1 tablet by [facility] Melatonin 3 MG Oral Tablet melatonin tablet 3 mg melatonin t ablet 3 mg 05/11/2020 10:00:00 PM EDT 3 mg Oral active 3 mg, Oral, Nightly, First dose on Mon05/11/20 at 2200, For 30 days [facility] Medication administered onsite Promethazine Hydrochloride 25 MG/ML [...] 15 minutes. Do NOT give IV push.
[facility] Medication administered onsite Meclizine Hydrochloride 12.5 MG Oral Tablet meclizine (ANTIVERT) tablet 12.5 mg meclizine (ANTIVERT) tablet 12.5 mg 05/11/2020 12:10:20 PM EDT 12.5 m g Oral active 12.5 mg, Oral, T hree Times Daily-PRN, Dizziness, Starting Mon05/11/20 at 1210, For 72 hours [facility] Medication administered onsite potassium & sodium phosphates (PHOS-NAK) 280-160-250 MG 2 pa cket [id number] 05/11/2020 09:30:00 AM EDT 2 {packet} Oral active 2 packet, Oral, Four Times Daily-With Meals & Nightly, First dose on Mon05/11/20 at 0930, For 1 day
Dissolve in 75mls of water or juice.
Each 250 mg packet contains: 250 mg (8 mmol) elemental phosphorous, 164 mg (7.1 mEq) sodium, 278 mg (7.1 mEq) potassium.
[facility] Medication administered onsite Hydrocortisone 10 MG Oral Tablet Hydrocortisone 10 MG Oral Tablet (CORTEF) Hydrocortisone 10 MG Oral Tablet (CORTEF) 05/11/2020 12:00:00 AM EDT 10 mg Oral active Take 1 tablet by lisa th every morning [facility] Folic Acid 1 MG Oral Tablet Folic Acid 1 MG Oral Table t (FOLVITE) Folic Acid 1 MG Oral Tablet (FOLVITE) 05/11/2020 12:00:00 AM EDT 1 mg Oral active Take 1 tablet by mouth daily [facility] Calcium Carbonate 1250 MG / Cholecalcife rol 200 UNT Oral Tablet Calcium Carbonate-Vitamin D 500-200 MG-UNIT Oral Tablet (OSCAL-500) Calcium Carbonate- Vitamin D 500-200 MG-UNIT Oral Tablet (OSCAL-500) 05/11/2020 12:00:00 AM EDT 1 {tbl} Oral active Take 1 tablet by mouth d [facility] Thiamine 100 MG Oral Tablet Thiamine HCl 100 MG Oral T ablet (B-1) Thiamine HCl 100 MG Oral Tablet (B-1) 05/11/2020 12:00:00 AM EDT 100 mg Oral active [facility] 4 MG Oral Tablet Ondansetron HCl 4 MG Oral Tablet (ZOFRAN) Ondansetron HCl 4 MG Oral Tablet (ZOFRAN) 05/11/2020 12:00:00 AM EDT 4 mg Oral active Take 1 tablet by mouth every 8 (eight) hours as needed for up to 7 days [facility] Meclizine Hydrochloride 12.5 MG Oral Tab let Meclizine HCl 12.5 MG Oral Tablet (ANTIVERT) Meclizine HCl 12.5 MG Oral Tablet (ANTIVERT) 0 12:00:00 AM EDT 12.5 mg Oral active Take 1 t ablet by mouth Three times daily as needed for Dizziness for up to 10 days [facility] Hydrocortisone 5 MG Oral Tablet Hydrocortisone 5 MG Or al Tablet (CORTEF) Hydrocortisone 5 MG Oral Tablet (CORTEF) 05/11/2020 12:00:00 AM EDT 5 mg Oral active Take 1 tablet by mouth ev rayshawn evening [facility] Hydrocortisone 10 MG Oral Tablet Hydrocortisone 10 MG Oral Tablet (CORTEF) Hydrocortisone 10 MG Oral Tablet (CORTEF) 05/11/2020 12:00:00 AM EDT 10 mg Oral aborted Take 1 tablet by lisa th every morning [facility] Aluminum Hydroxide 40 MG/ML / Magnesium Hydroxide 40 MG/ML / Simethicone 4 MG/ML Oral Suspension Alum & Mag Hydroxide-Simeth 200-200-20 MG/5ML Oral Suspension (MAALOX PLUS) Alum & Mag Hydroxide-Simeth 200-200-20 M G/5ML Oral Suspension (MAALOX PLUS) 05/11/2020 12:00:00 AM EDT 30 mL Oral abor rosa Take 30 mLs by mouth every 6 (six) hours as needed (heartburn) [facility] Aluminum Hydroxide 40 MG/ML / Magnesium Hydroxide 40 MG/ML / Simethicone 4 MG/ML Oral Suspension Alum & Mag Hydroxide-Simeth 200-200-20 MG/5ML Oral Suspension (MAALOX PLUS) Alum & Mag Hydroxide-Simeth 200-200-20 M G/5ML Oral Suspension (MAALOX PLUS) 05/11/2020 12:00:00 AM EDT 30 mL Oral acti ve Take 30 mLs by mouth every 6 (six) hours as needed (heartburn) [facility] Meclizine Hydrochloride 12.5 MG Oral Tab let Meclizine HCl 12.5 MG Oral Tablet (ANTIVERT) Meclizine HCl 12.5 MG Oral Tablet (ANTIVERT) 0 12:00:00 AM EDT 12.5 mg Oral aborted Take 1 t ablet by mouth Three times daily as needed for Dizziness for up to 10 days [facility] Hydrocortisone 5 MG Oral Tablet Hydrocortisone 5 MG Or al Tablet (CORTEF) Hydrocortisone 5 MG Oral Tablet (CORTEF) 05/11/2020 12:00:00 AM EDT 5 mg Oral aborted Take 1 tablet by mouth antwan rayshawn evening [facility] Hydrocortisone 5 MG Oral Tablet Hydrocortisone 5 [...] on 05/10/20 at 0900, For 30 days [facility] Medication administered onsite Hydrocortisone 5 MG Oral Tablet hydrocortisone (CORTEF ) tablet 5 mg hydrocortisone (CORTEF) tablet 5 mg 05/09/2020 05:00:00 PM EDT 5 mg Oral active 5 mg, Oral, Daily S tandard, First dose on 05/09/20 at 1700, For 30 days
Take with food.
[facility] Medication administered onsite Oxycodone Hydrochloride 5 MG [...] only) require Pain Service consultation and approval.
[facility] Medication administered onsite Acetaminophen 325 MG Oral [...] mg from all sources in 24 hours.
[facility] Medication administered onsite ondansetron (ZOFRAN) injection 4 [...] 1223, For 7 days [Order 2 End] [facility] Medication administered onsite iohexol (OMNIPAQUE) 300 MG/ML contrast injection 100 mL 1775 0905/07/2020 09:00:00 PM EDT 100 mL Given by IV completed 100 mL, Given by IV, 1 TIME IMAGING, [facility] 05/07/20 at 2100, For 1 dose [facility] Medication administered onsite iohexol (OMNIPAQUE) 240 MG/ML contrast 20 mL [id number] 06:34:42 PM EDT 20 mL Oral completed 20 mL, Oral, O nce PRN, Contrast, Per Protocol, Starting [facility] 05/07/20 at 1834, For [address] Scanner prior. scallop shucker to CT.Dilute in 500 mL liquid x1 middleware consultant to CT scan - per protocol. Use "Contrast dose chart" link for dosing guidelines.
[facility] Medication administered onsite iohexol (OMNIPAQUE) 240 MG/ML contrast 20 mL [id number] 06:34:42 PM EDT 20 mL Oral completed 20 mL, Oral, O nce PRN, Contrast, Per Protocol, Starting [facility] 05/07/20 at 1834, For [address] to tell RN administration time of first dose. Dilute in 500 mL liquid x1 Now per protocol. Use "Contrast dose chart" link for dosing guidelines.
[facility] Medication administered onsite Magnesium Oxide 400 MG Oral Tablet Magnesium Oxide (MA G-OX) tablet 400 mg Magnesium Oxide (MAG-OX) tablet 400 mg 05/07/2020 02:30:00 PM EDT 4 00 mg Oral completed 400 mg, Oral, D maiday Standard, First dose on Melissa 05/07/20 at 1430, For 5 doses [facility] Medication administered onsite TC-99M mebrofenin (CHOLETEC) [address]-9 05/07/2020 12:30:00 PM EDT Intravenous completed Intravenous, Once, Melissa 05/07/20 at 1230, For 1 dose, Imaging Protocol [facility] Medication administered onsite Glucose 50 MG/ML / Potassium Chloride 0. 02 MEQ/ML / Sodium Chloride 0.154 MEQ/ML Injectable Solution dextrose 5 % and 0.9 % NaCl with KCl 20 mEq infusion dextrose 5 % and 0.9 % NaCl with KCl 20 mEq infusion 05/07/2020 09:00:00 AM EDT Intravenous aborted at 75 mL/hr, Intravenous, Continuous, Starting Melissa 05/07/20 at 0900, For 2 days [facility] Medication administered onsite Potassium Chloride 0.02 MEQ/ML / Sodium Chloride 0.154 MEQ/ML Injectable Solution 0.9 % NaCl with KCl 20 mEq infusion 0.9 % NaCl with KCl 20 mEq infusion 05/07/2020 08:00:00 AM EDT Intravenous aborte d at 75 mL/hr, Intravenous, Continuous, Starting [facility] 05/07/20 at 0800, For 24 hours [facility] Medication administered onsite Lactulose 83.3 MG/ML Oral Solution lactulose (CEPHULAC ) packet 10 g lactulose (CEPHULAC) packet 10 g 05/06/2020 09:30:00 AM EDT 10 g Oral active 10 g, Oral, 2 Times Daily, First dose (after last reorder) on Mon05/06/20 at 0930, For 58 doses
Dissolve in 4 oz water. Can hold if pt has 2 bowel movements in a day.
[facility] Medication administered onsite Promethazine Hydrochloride 25 MG/ML [...] 15 minutes. Do NOT give IV push.
[facility] Medication administered onsite Calcium Carbonate 1250 MG / Cholecalcife rol 200 UNT Oral Tablet Calcium Carbonate-Vitamin D 500-200 MG-UNIT Oral Tablet (OSCAL-500) Calcium Carbonate- Vitamin D 500-200 MG-UNIT Oral Tablet (OSCAL-500) 05/06/2020 12:00:00 AM EDT 1 {tbl} Oral aborted Take 1 tablet by mouth d [facility] Acetaminophen 325 MG / Hydrocodone George trate 5 MG Oral Tablet HYDROcodone- Acetaminophen 5-325 MG Oral Tablet (LORTAB) HYDROcodone-Acetaminophen 5-325 MG Oral Tablet (LORTAB) 05/06/2020 12:00:00 AM EDT 1 {tbl} Oral aborted Take 1 tablet by mouth every 6 (six) hours as needed for up to 3 days, Max Daily Dose: 4 tablets [facility] Meclizine Hydrochloride 12.5 MG Oral Tab let Meclizine HCl 12.5 MG Oral Tablet (ANTIVERT) Meclizine HCl 12.5 MG Oral Tablet (ANTIVERT) 0 12:00:00 AM EDT 12.5 mg Oral aborted Take 1 t ablet by mouth Three times daily as needed for Dizziness for up to 10 days [facility] Folic Acid 1 MG Oral Tablet Folic Acid 1 MG Oral Table t (FOLVITE) Folic Acid 1 MG Oral Tablet (FOLVITE) 05/06/2020 12:00:00 AM EDT 1 mg Oral aborted Take 1 tablet by mouth daily [facility] Ondansetron 4 MG Oral Tablet Ondansetron HCl 4 MG Oral Tablet (ZOFRAN) Ondansetron HCl 4 MG Oral Tablet (ZOFRAN) 05/06/2020 12:00:00 AM EDT 4 mg Oral aborted Take 1 tablet by mouth every 8 (eight) hours as needed for up to 7 days [facility] Tab-A-Franki/Beta Carotene Oral Tablet [id number] 05/06/2020 12:00: 00 AM EDT 1 {tbl} Oral aborted Take 1 tablet by mouth d [facility] Thiamine 100 MG Oral Tablet Thiamine HCl 100 MG Oral T ablet (B-1) Thiamine HCl 100 MG Oral Tablet (B-1) 05/06/2020 12:00:00 AM EDT 100 mg Oral aborted Take 1 tablet by mouth daily [facility] magnesium sulfate in dextrose 5 % infusion (premix) 1 g 0409 -6727-05/05/2020 07:00:00 PM EDT 1 g Intravenous completed 1 g, Intravenous, Administer over 60 Minutes, Once, Mon05/05/20 at 1900, For 1 dose [facility] Medication administered onsite potassium chloride (KLOR-CON) packet 40 mEq 8604-9463-19 05/05/2020 07:00:00 PM EDT 40 meq Oral completed 40 mEq , Oral, 2 Times Daily, First dose on Mon05/05/20 at 1900, For 2 doses
Mix in 4 ounces of water or juice
[facility] Medication administered onsite magnesium sulfate in dextrose 5 % infusion (premix) 8 mEq 04 05/05/2020 11:30:00 AM EDT 8 meq Intravenous completed 8 mEq, Intravenous, Administer over 60 Minutes, Once, Mon05/05/20 at 1130, For 1 dose
each 8 mEq equivalent to 1 gm
[facility] Medication administered onsite Acetaminophen 325 MG / [...] mg from all sources in 24 hours.
[facility] Medication administered onsite Potassium Chloride 0.02 MEQ/ML / Sodium Chloride 0.154 MEQ/ML Injectable Solution 0.9 % NaCl with KCl 20 mEq infusion 0.9 % NaCl with KCl 20 mEq infusion 05/05/2020 10:00:00 AM EDT Intravenous aborte d at 75 mL/hr, Intravenous, Continuous, Starting Mon05/05/20 at 1000, For 30 days [facility] Medication administered onsite multivitamin tablet 1 tablet [id number] 05/05/2020 09:00:00 AM EDT 1 {tbl} Oral active 1 tablet, Oral , Daily Standard, First dose on Mon05/05/20 at 0900, For 30 days [facility] Medication administered onsite Meclizine Hydrochloride 12.5 MG Oral Tablet meclizine (ANTIVERT) tablet 12.5 mg meclizine (ANTIVERT) tablet 12.5 mg 05/04/2020 07:03:43 PM EDT 12.5 m g Oral completed 12.5 mg, Oral, T hree Times Daily-PRN, Dizziness, Starting 05/04/20 at 1903, For 6 days 15 hours [facility] Medication administered onsite Meclizine Hydrochloride 12.5 MG Oral Tablet meclizine (ANTIVERT) tablet 12.5 mg meclizine (ANTIVERT) tablet 12.5 mg 05/04/2020 01:45:00 AM EDT 12.5 m g Oral completed 12.5 mg, Oral, Once, 04/21 at 0145, For 1 dose [facility] Medication administered onsite Oxazepam 10 MG Oral Capsule oxazepam (SERAX) capsule 1 0 mg oxazepam (SERAX) capsule 10 mg 05/03/2020 02:00:00 PM EDT 10 mg Oral comp leted 10 mg, Oral, Three Times Daily Standard, First dose (after last modification) on 05/03/20 at 1400, For 1 dose [facility] Medication administered onsite potassium chloride (KLOR-CON) packet 40 mEq [id number] 05/02/2020 08:00:00 AM EDT 40 meq Oral completed 40 mEq , Oral, Once, 05/02/20 at 0800, For 1 dose
Mix in 4 ounces of water or juice
[facility] Medication administered onsite Hydroxyzine Pamoate 25 MG Oral Capsule hydrOXYzine ( STARIL) capsule 25 mg hydrOXYzine (VISTARIL) capsule 25 mg 05/01/2020 09:00:00 PM EDT 25 mg Oral completed 25 mg, Oral, Once, Fri at 2100, For 1 dose [facility] Medication administered onsite gabapentin 100 MG Oral Capsule gabapentin (NEURONTIN) capsule 100 mg gabapentin (NEURONTIN) capsule 100 mg 05/01/2020 05:00:00 PM EDT 100 mg Oral aborted 100 mg, Oral, Three Times D aily Standard, First dose on Mon05/01/20 at 1700, For 30 days [facility] Medication administered onsite Potassium Chloride 0.1 MEQ/ML Injectable Solution potassium chloride 10 mEq in 100 mL IVPB (premix) potassium chloride 10 mEq in 100 mL IVPB (premix) 05/01/2020 04:00:00 PM EDT 10 meq Intravenous completed 10 mEq, Intravenous, Every 1 hour, First dose (after last modification) on Mon05/01/20 at 1600, For 2 doses [facility] Medication administered onsite Potassium Chloride 0.1 MEQ/ML Injectable Solution potassium chloride 10 mEq in 100 mL IVPB (premix) potassium chloride 10 mEq in 100 mL IVPB (premix) 05/01/2020 12:00:00 PM EDT 10 meq Intravenous aborted 10 mEq, Intravenous, Every 1 hour, First dose on Mon05/01/20 at 1200, For 4 doses [facility] Medication administered onsite Magnesium Oxide 400 MG Oral Tablet Magnesium Oxide (MA G-OX) tablet 400 mg Magnesium Oxide (MAG-OX) tablet 400 mg 05/01/2020 09:00:00 AM EDT 4 00 mg Oral completed 400 mg, Oral, 2 Times Daily, First dose on Mon05/01/20 at 0900, For 1 dose [facility] Medication administered onsite potassium & sodium phosphates (PHOS-NAK) 280-160-250 MG 1 pa cket [id number] 04/30/2020 05:30:00 PM EDT 1 {packet} Oral completed 1 packet, Oral, Before Meals & Nightly - Four Times Daily, First dose on Mon04/30/20 at 1730, For 1 dose
Dissolve in 75mls of water or juice.
Each 250 mg packet contains: 250 mg (8 mmol) elemental phosphorous, 164 mg (7.1 mEq) sodium, 278 mg (7.1 mEq) potassium.
[facility] Medication administered onsite Calcium Carbonate 1250 MG / Cholecalcife rol 200 UNT Oral Tablet calcium-vitamin D (OSCAL-500) 500-200 MG-UNIT per tablet 1 tablet calcium-vitamin D (OSCAL-500) 500-200 MG-UNIT per tablet 1 tablet 04/30/2020 09:00:00 AM EDT 1 {tbl } Oral active 1 tablet, Oral, Daily Standard, First dose on Melissa 04/30/20 at 0900, For 30 days [facility] Medication administered onsite magnesium sulfate in dextrose 5 % infusion (premix) 8 mEq [id number] 04/29/2020 02:00:00 PM EDT 8 meq Intravenous completed 8 mEq, Intravenous, Administer over 60 Minutes, Once, Mon04/29/20 at 1400, For 1 dose
each 8 mEq equivalent to 1 gm
[facility] Medication administered onsite sodium chloride (preservative free) [...] Extended Dwell/Midline Peripheral Catheter.
[Order 3 End] [facility] Medication administered onsite Hydroxyzine Hydrochloride 10 MG Oral Tablet hydrOXYzin e (ATARAX) tablet 10 mg hydrOXYzine (ATARAX) tablet 10 mg 04/29/2020 12:30:00 AM EDT 10 mg Oral completed 10 mg, Oral, Once, Mon04/29/20 at 0030, For 1 dose [facility] Medication administered onsite Dextromethorphan Hydrobromide 2 MG/ML / Guaifenesin 20 MG/ML Oral Suspension guaifenesin-dextromethorphan (ROBITUSSIN DM) 100-10 MG/5ML syrup 5 mL guaifenesin-dextromethorphan (ROBITUSSIN DM) 100-10 MG/5ML syrup 5 mL 04/28/2020 07:00:00 PM EDT 5 mL Oral active 5 mL, Oral, Every 4 hours PRN, Cough, Starting Mon04/28/20 at 1900, For 30 days [facility] Medication administered onsite Potassium Chloride 0.1 MEQ/ML Injectable Solution potassium chloride 10 mEq in 100 mL IVPB (premix) potassium chloride 10 mEq in 100 mL IVPB (premix) 04/28/2020 04:00:00 PM EDT 10 meq Intravenous completed 10 mEq, Intravenous, Every 1 hour, First dose (after last reorder) on Mon04/28/20 at 1600, For 4 doses [facility] Medication administered onsite phytonadione (VITAMIN K1) 10 mg in dextrose 5 % 50 mL IVPB 04/28/2020 02:30:00 PM EDT 10 mg Intravenous completed 10 mg, Intravenous, Administer over 15 Minutes, Once, Mon04/28/20 at 1430, For 1 dose [facility] Medication administered onsite Oxycodone Hydrochloride 5 MG [...] only) require Pain Service consultation and approval.
[facility] Medication administered onsite Oxazepam 10 MG Oral Capsule oxazepam (SERAX) capsule 1 0 mg oxazepam (SERAX) capsule 10 mg 04/27/2020 09:00:00 PM EDT 10 mg Oral abor rosa 10 mg, Oral, Three Times Daily Standard, First dose (after last modification) on Mon04/27/20 at 2100, For 24 doses [facility] Medication administered onsite Lactulose 83.3 MG/ML Oral Solution lactulose (CEPHULAC ) packet 10 g lactulose (CEPHULAC) packet 10 g 04/27/2020 09:00:00 PM EDT 10 g Oral aborted 10 g, Oral, 2 Times Daily, First dose (after last modification) on Mon04/27/20 at 2100, For 58 doses
Dissolve in 4 oz water
[facility] Medication administered onsite sodium chloride (preservative free) [...] Heparin 10 units/mL to lock. Reference Policy [facility] Central Line Policy.
[Order 1 End] [...] mL Heparin 10 units/mL to lock.Reference Policy [facility]-34 Central Line Policy.
[Order 2 End] [Order 3 Start] Name: sodium chloride (preservative free) 0.9 % flush 10 mL Signed Summary: 10 mL, Intravenous, Every 12 hours, First dose on Mon04/27/20 at 1430, For 30 days
WHEN NOT IN USE - Verify blood return before use. Flush with 10 mL of Sodium Chloride 0.9 % and 2 mL Heparin 10 units/mL.Reference Policy [facility]-34 Central Line Policy.
[Order 3 End] [...] C-34H Central Line Policy.
[Order 4 End] [facility] Medication administered onsite Potassium Chloride 0.1 MEQ/ML Injectable Solution potassium chloride 10 mEq in 100 mL IVPB (premix) potassium chloride 10 mEq in 100 mL IVPB (premix) 04/27/2020 12:00:00 PM EDT 10 meq Intravenous completed 10 mEq, Intravenous, Administer over 60 Minutes, Every 1 hour, First dose on Mon04/27/20 at 1200, For 4 doses [facility] Medication administered onsite magnesium sulfate in dextrose 5 % infusion (premix) 8 mEq 672704/27/2020 12:00:00 PM EDT 8 meq Intravenous completed 8 mEq, Intravenous, Administer over 60 Minutes, Every 1 hour, First dose on Mon04/27/20 at 1200, For 2 doses
each 8 mEq equivalent to 1 gm
[facility] Medication administered onsite Vitamin K 1 5 MG Oral Tablet phytonadione (MEPHYTON) t ablet 10 mg phytonadione (MEPHYTON) tablet 10 mg 04/27/2020 11:45:00 AM EDT 10 mg Oral completed 10 mg, Oral, Once, Mon04/27/20 at 1145, For 1 dose [facility] Medication administered onsite prednisolone 3 MG/ML Oral Solution predn isoLONE (ORAPRED) 15 MG/5ML solution 40 mg prednisoLONE (ORAPRED) 15 MG/5ML solution 40 mg 04/27/2020 11:45 :00 AM EDT 40 mg Oral aborted 40 mg, Ora l, Daily Standard, First dose on Mon04/27/20 at 1145, For 10 doses [facility] Medication administered onsite Prednisone 20 MG Oral Tablet predniSONE (DELTASONE) ta blet 40 mg predniSONE (DELTASONE) tablet 40 mg 04/27/2020 09:00:00 AM EDT 40 mg Oral aborted 40 mg, Oral, Daily Standard, First dose on Mon04/27/20 at 0900, For 30 days
Take with food.
[facility] Medication administered onsite Lactulose 83.3 MG/ML Oral Solution lactulose (CEPHULAC ) packet 20 g lactulose (CEPHULAC) packet 20 g 04/26/2020 09:00:00 PM EDT 20 g Oral aborted 20 g, Oral, 2 Times Daily, First dose on 04/26/20 at 2100, For 30 days
Dissolve in 4 oz water
[facility] Medication administered onsite Potassium Chloride 0.1 MEQ/ML Injectable Solution potassium chloride 10 mEq in 100 mL IVPB (premix) potassium chloride 10 mEq in 100 mL IVPB (premix) 04/26/2020 09:00:00 PM EDT 10 meq Intravenous completed 10 mEq, Intravenous, Every 1 hour, First dose on 04/26/20 at 2100, For 4 doses [facility] Medication administered onsite Oxazepam 10 MG Oral Capsule oxazepam (SERAX) capsule 2 0 mg oxazepam (SERAX) capsule 20 mg 04/26/2020 04:00:00 PM EDT 20 mg Oral abor rosa 20 mg, Oral, Three Times Daily Standard, First dose (after last modification) on 04/26/20 at 1600, For 18 doses [facility] Medication administered onsite dextrose 5 %-0.9 % sodium chloride infusion [id number] 04/26/2020 02:45:00 PM EDT Intravenous completed at 100 mL/hr, Intravenous, Continuous, Starting 04/26/20 at 1445, For 2 days [facility] Medication administered onsite Vitamin K 1 5 MG Oral Tablet phytonadione (MEPHYTON) t ablet 10 mg phytonadione (MEPHYTON) tablet 10 mg 04/26/2020 01:30:00 PM EDT 10 mg Oral completed 10 mg, Oral, Once, 04/26/20 at 1330, For 1 dose [facility] Medication administered onsite Oxazepam 10 MG Oral Capsule oxazepam (SERAX) capsule 1 0 mg oxazepam (SERAX) capsule 10 mg 04/26/2020 11:30:00 AM EDT 10 mg Oral comp leted 10 mg, Oral, Once, 04/26/20 at 1130, For 1 dose [facility] Medication administered onsite sodium chloride 0.9 % bolus 1,000 mL [id number] 04/26/2020 10:00: 00 AM EDT 1000 mL Intravenous completed 1,000 mL , Intravenous, Once, 04/26/20 at 1000, For 1 dose [facility] Medication administered onsite magnesium sulfate in dextrose 5 % infusion (premix) 8 mEq 04 [id number] 04/26/2020 09:00:00 AM EDT 8 meq Intravenous completed 8 mEq, Intravenous, Administer over 60 Minutes, Every 1 hour, First dose on 04/26/20 at 0900, For 3 doses
each 8 mEq equivalent to 1 gm
[facility] Medication administered onsite Pentoxifylline 400 MG Extended Release O ral Tablet pentoxifylline (TRENTAL) CR tablet 400 mg pentoxifylline (TRENTAL) CR tablet 400 mg 04/25/2020 0 6:00:00 PM EDT 400 mg Oral aborted 400 mg, Oral, Three Times Daily-With Meals, First dose on 04/25/20 at 1800, For 30 days
Take with food.
[facility] Medication administered onsite Oxazepam 10 MG Oral Capsule oxazepam (SERAX) capsule 1 0 mg oxazepam (SERAX) capsule 10 mg 04/25/2020 04:00:00 PM EDT 10 mg Oral abor rosa 10 mg, Oral, Three Times Daily Standard, First dose on 04/25/20 at 1600, For 7 days [facility] Medication administered onsite Potassium Chloride 0.1 MEQ/ML Injectable Solution potassium chloride 10 mEq in 100 mL IVPB (premix) potassium chloride 10 mEq in 100 mL IVPB (premix) 04/25/2020 02:00:00 PM EDT 10 meq Intravenous completed 10 mEq, Intravenous, Every 1 hour, First dose (after last reorder) on 04/25/20 at 1400, For 4 doses [facility] Medication administered onsite sodium chloride 0.9 % 1,000 mL with MVI adult 10 mL, folic acid 1 mg, magnesium sulfate 16 mEq, thiamine (B-1) 100 mg infusion 04/25/2020 09:00:00 AM EDT Intravenous aborted Intravenous, Continuous, Starting 04/25/20 at 0900, For 3 days [facility] Medication administered onsite pantoprazole 4 MG/ML Injectable Solution pantoprazole (PROTONIX) injection 40 mg pantoprazole (PROTONIX) injection 40 mg 04/25/2020 09:00:00 AM EDT 40 mg Intravenous active 40 mg, Intrav enous, Daily Standard, First dose on 04/25/20 at 0900, For 30 days
Dilute with 10 mL of 0.9% NaCl.Give IVP over 2 minutes. Flush before and after.
[facility] Medication administered onsite 0.4 ML Enoxaparin sodium [...] hours after epidural catheter has been removed.
[facility] Medication administered onsite Thiamine 100 MG Oral Tablet thiamine (B-1) tablet 100 mg thiamine (B-1) tablet 100 mg 04/25/2020 09:00:00 AM EDT 100 mg Oral active 100 mg, Oral, Daily Standard, First dose on 04/25/20 at 0900, For 30 days [facility] Medication administered onsite Folic Acid 1 MG Oral Tablet folic acid (FOLVITE) table t 1 mg folic acid (FOLVITE) tablet 1 mg 04/25/2020 09:00:00 AM EDT 1 mg Oral active 1 mg, Oral, Daily Standard, First dose on 04/25/20 at 0900, For 30 days [facility] Medication administered onsite Potassium Chloride 0.1 MEQ/ML Injectable Solution potassium chloride 10 mEq in 100 mL IVPB (premix) potassium chloride 10 mEq in 100 mL IVPB (premix) 04/25/2020 08:00:00 AM EDT 10 meq Intravenous completed 10 mEq, Intravenous, Every 1 hour, First dose on 04/25/20 at 0800, For 4 doses [facility] Medication administered onsite potassium chloride (K-DUR) dissolvable tablet 40 mEq [id number] 04/25/2020 08:00:00 AM EDT 40 meq Oral completed 40 mEq, Oral, Once, 04/25/20 at 0800, For 1 dose
Do not crush or chew
[facility] Medication administered onsite 50 ML Magnesium Sulfate 40 MG/ML Injecti on magnesium sulfate infusion 2 g/50 mL (premix) magnesium sulfate infusion 2 g/50 mL (premix) 04/25/20 08:00:00 AM EDT 16 meq Intravenous completed 16 mEq, Intravenous, Administer over 60 Minutes, Once, 04/25/20 at 0800, For 1 dose
each 8 mEq equivalent to 1 gm
[facility] Medication administered onsite insulin lispro (HumaLOG) injection LOW DOSE EATING INS ULIN patients 1-8 Units [id number] 04/25/2020 08:00:00 AM EDT U Subcutaneous aborted 1-8 Units, Subcutaneous, Three Times Daily-With Meals, First dose on 04/25/20 at 0800, For 30 days
Nursing MUST open the 'SQ Insulin Dosing Charts' Sidebar Report, or, the Patient Summary or Summary Report within the ED.
[facility] Medication administered onsite iohexol (OMNIPAQUE) 300 MG/ML contrast injection 100 mL 1776 02 04/25/2020 05:45:00 AM EDT 100 mL Given by IV completed 100 mL, Given by IV, 1 TIME IMAGING, 04/25/20 at 0545, For 1 dose [facility] Medication administered onsite lactated ringers bolus 2,000 mL [id number] 04/25/2020 05:00:00 AM EDT 2000 mL Intravenous completed 2,000 mL , Intravenous, Once, 04/25/20 at 0500, For 1 dose [facility] Medication administered onsite diazePAM (VALIUM) injection 10 mg [id number] 04/25/2020 04:00:00 AM EDT 10 mg Intravenous aborted 10 mg, I ntravenous, Every 1 hour, First dose on 04/25/20 at 0400, For 4 doses
Maximum of 40 mg in 4 hour period. If patient is sleeping, do not wake them to administer Diazepam or to assess the CIWA score. Assess once patient awakens.
[facility] Medication administered onsite morphine sulfate (PF) injection 4 mg [id number] 04/25/2020 03:28: 20 AM EDT 4 mg Intravenous aborted 4 mg, In travenous, Every 4 hours PRN, Moderate Pain (Pain Scale Score 4-6), Severe Pain (Pain Scale Score 7-10), Starting 04/25/20 at 0328, For 3 days [facility] Medication administered onsite Calcium Chloride 0.0014 MEQ/ML / Potassi um Chloride 0.004 MEQ/ML / Sodium Chloride 0.103 MEQ/ML / Sodium Lactate 0.028 MEQ/ML Injectable Solution lactated ringers infusion lactated ringers infusion 04/25/2020 03:15:00 AM EDT 100 mL/h Intravenous aborted at 100 m L/hr, Intravenous, Continuous, Starting 04/25/20 at 0315, For 30 days [facility] Medication administered onsite dextrose 50 % IV solution 25 mL [id number] 04/25/2020 03:04:32 AM E DT 25 mL Intravenous active 25 mL, Intrav enous, PRN, Other, blood glucose <55, Starting 04/25/20 at 0304, For 30 days
Not for midline administration.
[facility] Medication administered onsite Glucagon 1 MG Injection glucagon (human recombinant) ( GLUCAGEN) injection 1 mg glucagon (human recombinant) (GLUCAGEN) injection 1 mg 04/25/2020 03:04:32 AM EDT 1 mg Intramuscular active 1 mg, Intramuscular, PRN, for glucose <55 without IV access, Starting 04/25/20 at 0304, For 30 days [facility] Medication administered onsite Glucose 0.417 MG/MG Oral Gel glucose (GLUTOSE) 40 % or al gel 15 g glucose (GLUTOSE) 40 % oral gel 15 g 04/25/2020 03:04:32 AM EDT 15 g Oral active 15 g, Oral, PRN, Low blood s ugar, for gluose 55-69 mg/dl and able to take PO, Starting 04/25/20 at 0304, For 30 days [facility] Medication administered onsite Meclizine Hydrochloride 25 MG Chewable Tablet Meclizin e HCl 25 MG Meclizine HCl 25 MG 02/07/2020 12:00:00 AM EDT 1.0 {tablet_as_needed} active Meclizine HCl 25 MG eCW1 ([facility]) Naltrexone hydrochloride 50 MG Oral Tablet Naltrexone HCl 50 MG Naltrexone HCl 50 MG 02/07/2020 12:00:00 AM EDT 1.0 {tablet} activ e Naltrexone HCl 50 MG eCW1 ([facility]) doxycycline hyclate 50 MG Oral Capsule Doxycycline Hyc late 50 MG Doxycycline Hyclate 50 MG 01/01/2020 12:00:00 AM EDT 1.0 {capsule} active Doxycycline Hyclate 50 MG eCW1 ([facility]) doxycycline hyclate 50 MG Oral Capsule Doxycycline Hyc late 50 MG Doxycycline Hyclate 50 MG 01/01/2020 12:00:00 AM EDT 1.0 {capsule} active Doxycycline Hyclate 50 MG eCW1 ([facility]) doxycycline hyclate 50 MG Oral Capsule Doxycycline Hyc late 50 MG Doxycycline Hyclate 50 MG 01/01/2020 12:00:00 AM EDT 1.0 {capsule} active Doxycycline Hyclate 50 MG eCW1 ([facility]) doxycycline hyclate 50 MG Oral Capsule Doxycycline Hyc late 50 MG Doxycycline Hyclate 50 MG 01/01/2020 12:00:00 AM EDT 1.0 {capsule} active Doxycycline Hyclate 50 MG eCW1 ([facility]) doxycycline hyclate 50 MG Oral Capsule Doxycycline Hyc late 50 MG Doxycycline Hyclate 50 MG 01/01/2020 12:00:00 AM EDT 1.0 {capsule} active Doxycycline Hyclate 50 MG eCW1 ([facility]) doxycycline hyclate 50 MG Oral Capsule Doxycycline Hyc late 50 MG Doxycycline Hyclate 50 MG 01/01/2020 12:00:00 AM EDT 1.0 {capsule} active Doxycycline Hyclate 50 MG eCW1 ([facility]) doxycycline hyclate 50 MG Oral Capsule Doxycycline Hyc late 50 MG Doxycycline Hyclate 50 MG 01/01/2020 12:00:00 AM EDT 1.0 {capsule} active Doxycycline Hyclate 50 MG eCW1 ([facility]) doxycycline hyclate 50 MG Oral Capsule Doxycycline Hyc late 50 MG Doxycycline Hyclate 50 MG 01/01/2020 12:00:00 AM EDT 1.0 {capsule} active Doxycycline Hyclate 50 MG eCW1 ([facility]) doxycycline hyclate 50 MG Oral Capsule Doxycycline Hyc late 50 MG Doxycycline Hyclate 50 MG 01/01/2020 12:00:00 AM EDT 1.0 {capsule} active Doxycycline Hyclate 50 MG eCW1 ([facility]) doxycycline hyclate 50 MG Oral Capsule Doxycycline Hyc late 50 MG Doxycycline Hyclate 50 MG 01/01/2020 12:00:00 AM EDT 1.0 {capsule} active Doxycycline Hyclate 50 MG eCW1 ([facility]) doxycycline hyclate 50 MG Oral Capsule Doxycycline Hyc late 50 MG Doxycycline Hyclate 50 MG 01/01/2020 12:00:00 AM EDT active 1 capsule eCW1 ([facility]) doxycycline hyclate 50 MG Oral Capsule Doxycycline Hyc late 50 MG Doxycycline Hyclate 50 MG 01/01/2020 12:00:00 AM EDT 1.0 {capsule} active Doxycycline Hyclate 50 MG eCW1 ([facility]) Metformin hydrochloride 500 MG Oral Tablet Metformin H Cl 500 MG Metformin HCl 500 MG 11/11/2019 12:00:00 AM EDT active 1 tablet with a meal eCW1 ([facility]) adapalene 1 MG/ML Topical Lotion [Differin] Differin 0.1 % D ifferin 0.1 % 10/14/2019 12:00:00 AM EST active 1 application in the evening eCW1 ([facility]) Clindamycin 10 MG/ML Topical Lotion [Cleocin-T] Cleocin-T 1 % Cleocin-T 1 % 10/14/2019 12:00:00 AM EST active 1 application eCW1 ([facility]) Clindamycin 10 MG/ML Topical Lotion [Cleocin-T] Cleocin-T 1 % Cleocin-T 1 % 10/14/2019 12:00:00 AM EST active 1 application eCW1 ([facility]) adapalene 1 MG/ML Topical Lotion [Differin] Differin 0.1 % D ifferin 0.1 % 10/14/2019 12:00:00 AM EST active 1 application in the evening eCW1 ([facility]) Metformin hydrochloride 500 MG Oral Tabl et metFORMIN HCl 500 MG Oral Tablet (GLUCOPHAGE) metFORMIN HCl 500 MG Oral Tablet (GLUCOPHAGE) 500 m g Oral aborted Take 500 mg by mouth Two times d aily with meals [facility] atorvastatin 20 MG Oral Tablet Atorvastatin Calcium 20 MG Oral Tablet (LIPITOR) Atorvastatin Calcium 20 MG Oral Tablet (LIPITOR) 20 mg Oral aborted Take 20 mg by mouth daily [facility] doxycycline hyclate 100 MG Oral Capsule Doxycycline Hyclate 100 MG Oral Capsule (VIBRAMYCIN) Doxycycline Hyclate 100 MG Oral Capsule (VIBRAMYCIN) 100 mg Oral aborted Take 100 mg by mouth daily For acne [facility] Insurance Providers Payer name Policy type / Coverage type Policy ID Covered constitution party ID Covered constitution party's relationship to awan Policy Awan Plan Information [facility] [id number] SP [id number] [facility] O [id number] S [id number] [facility] I [id number] Self [id number] MEDICAID [id number] SP [id number] MEDICAID [id number] ANSI-Not a Secondary Insurance [id number] ANSI-Commercial [id number] ANSI-Medicaid [id number] ANSI-Medicaid [id number] ANSI-Not a Secondary Insurance [id number] ANSI-Commercial [id number] ANSI-Commercial [id number] ANSI-Not a Secondary Insurance [id number] ANSI-Medicaid [id number] ANSI-Commercial [id number] ANSI-Not a Secondary Insurance [id number] ANSI-Medicaid [id number] ANSI-Medicaid [id number] ANSI-Commercial [id number] ANSI-Not a Secondary Insurance [id number] ANSI-Not a Secondary Insurance [id number] ANSI-Medicaid [id number] ANSI-Commercial [id number] SELF PAY ONLY [id number] SP [id number] ANSI-Not a Secondary Insurance [id number] ANSI-Medicaid [id number] ANSI-Commercial [id number] ANSI-Not a Secondary Insurance [id number] ANSI-Medicaid [id number] ANSI-Commercial [id number] ANSI-Medicaid [id number] ANSI-Not a Secondary Insurance [id number] ANSI-Commercial [id number] RAYMOND [id number] SP [id number] ANSI-Medicaid [id number] ANSI-Commercial [id number] ANSI-Medicaid [id number] ANSI-Commercial [id number] ANSI-Commercial [id number] RAYMOND [id number] SP [id number] SELF PAY UNAVAILABLE SP UNAVAILA BLE Problems, Conditions, and Diagnoses Code Display Name Description Problem Type Effective Dates Data Source(s) G62.9 [id number] Peripheral polyneuropathy Problem 07/27/2020 12:00:00 AM EST eCW1 ([facility]) K70.31 [id number] Ascites due to alcoholic cirrhosis Pr oblem 07/27/2020 12:00:00 AM EST eCW1 ([facility]) E80.6 [id number] Hyperbilirubinemia Problem 06/09/2020 12:00: 00 AM EDT eCW1 ([facility]) [id number] Essential hypertension Essential hypertension Problem 05/19/2020 12:00:00 AM EDT DWAINE ([facility]) F10.230 Alcohol dependence with withdrawal, unco mplicated Alcohol dependence with withdrawal, uncomplicated Diagnosis 04/25/2020 03:14:56 AM EDT [facility] K70.10 Alcoholic hepatitis without ascites Alcoholic he patitis without ascites Diagnosis [facility] 04/25/2020 02:36:00 AM ED [facility] obstructive liver obstructive liver Diagnosis 04/25/2020 02:36:[address] [facility] Surgeries/Procedures Procedure Description Date Indications Data Source(s) POCT GLUCOSE, DOCKED POCT GLUCOSE, DOCKED Routine 05/11/2020 12:32 PM EDT 05/11/2020 12:32:[address] [facility] POCT GLUCOSE, DOCKED POCT GLUCOSE, DOCKED Routine 05/11/2020 8:31 AM EDT 05/11/2020 08:31:[address] [facility] PROTHROMBIN TIME PROTIME INR Routine 05/11/2020 4:26 AM EDT 05/11/2020 04:26:[address] [facility] PHOSPHORUS INORGANIC PHOSPHORUS LEVEL Routine 05/11/2020 4:26 AM E DT 05/11/2020 04:26:[address] [facility] MAGNESIUM MAGNESIUM LEVEL Routine 05/11/2020 4:26 AM EDT 05/11/2020 04:26:[address] [facility] HEPATIC FUNCTION PANEL HEPATIC FUNCTION PANEL A Routine 05/11/2020 4:26 AM EDT 05/11/2020 04:26:00 AM EDT [facility] COVID-19 PCR COVID-19 PCR Routine 05/10/2020 10:03 PM EDT 05/10/2020 10:03:[address] [facility] GLUCOSE QUANTITATIVE BLOOD XCPT REAGENT STRIP POCT GLUCOSE, DOC KED Routine 05/10/2020 9:46 PM EDT 05/10/2020 09:46:[address] [facility] GLUCOSE QUANTITATIVE BLOOD XCPT REAGENT STRIP POCT GLUCOSE, DOC KED Routine 05/10/2020 4:53 PM EDT 05/10/2020 04:53:[address] [facility] GLUCOSE QUANTITATIVE BLOOD XCPT REAGENT STRIP POCT GLUCOSE, DOC KED Routine 05/10/2020 12:15 PM EDT 05/10/2020 12:15:[address] [facility] GLUCOSE QUANTITATIVE BLOOD XCPT REAGENT STRIP POCT GLUCOSE, IVANA TRIMBLE Routine 05/10/2020 8:17 AM EDT 05/10/2020 08:17:[address] [facility] PROTHROMBIN TIME PROTIME INR Routine 05/10/2020 3:41 AM EDT 05/10/2020 03:41:[address] [facility] PHOSPHORUS INORGANIC PHOSPHORUS LEVEL Routine 05/10/2020 3:41 AM E DT 05/10/2020 03:41:[address] [facility] MAGNESIUM MAGNESIUM LEVEL Routine 05/10/2020 3:41 AM EDT 05/10/2020 03:41:[address] [facility] HEPATIC FUNCTION PANEL HEPATIC FUNCTION PANEL A Routine 05/10/2020 3:41 AM EDT 05/10/2020 03:41:[address] [facility] GLUCOSE QUANTITATIVE BLOOD XCPT REAGENT STRIP POCT GLUCOSEIVANA Routine 05/09/2020 9:17 PM EDT 05/09/2020 09:17:[address] [facility] GLUCOSE QUANTITATIVE BLOOD XCPT REAGENT STRIP POCT GLUCOSE, IVANA TRIMBLE Routine 05/09/2020 5:14 PM EDT 05/09/2020 05:14:[address] [facility] BLOOD COUNT LEUKOCYTE WBC AUTOMATED WBC Routine 05/09/2020 2 :17 PM EDT 05/09/2020 02:17:[address] [facility] XR CHEST FRONTAL ONLY [id number] XR CHEST FRONTAL ONLY [id number] Urgent 05/09/2020 2:05 PM EDT 05/09/2020 02:05:[address] [facility] URNLS DIP STICK/TABLET REAGENT AUTO MICROSCOPY URINAL YSIS WITH REFLEX URINE CULTURE Routine 05/09/2020 1:48 PM EDT 05/09/2020 01:48 :[address] [facility] CULTURE BACTERIAL BLOOD AEROBIC W/ID ISOLATES BLOOD CULTURE R outine 05/09/2020 1:48 PM EDT 05/09/2020 01:48:[address] [facility] CULTURE BACTERIAL BLOOD AEROBIC W/ID ISOLATES BLOOD CULTURE R outine 05/09/2020 1:48 PM EDT 05/09/2020 01:48:[address] [facility] GLUCOSE QUANTITATIVE BLOOD XCPT REAGENT STRIP POCT GLUCOSE, DOC KED Routine 05/09/2020 12:22 PM EDT 05/09/2020 12:22:[address] [facility] CORTISOL TOTAL CORTISOL Routine 05/09/2020 9:49 AM EDT 05/09/2020 09:49:[address] [facility] GLUCOSE QUANTITATIVE BLOOD XCPT REAGENT STRIP POCT GLUCOSE, DOC KED Routine 05/09/2020 8:18 AM EDT 05/09/2020 08:18:[address] [facility] PROTHROMBIN TIME PROTIME INR Routine 05/09/2020 4:33 AM EDT 05/09/2020 04:33:[address] [facility] PHOSPHORUS INORGANIC PHOSPHORUS LEVEL Routine 05/09/2020 4:33 AM E DT 05/09/2020 04:33:[address] [facility] MAGNESIUM MAGNESIUM LEVEL Routine 05/09/2020 4:33 AM EDT 05/09/2020 04:33:[address] [facility] CORTISOL TOTAL CORTISOL Routine 05/09/2020 4:33 AM EDT 05/09/2020 04:33:[address] [facility] HEPATIC FUNCTION PANEL HEPATIC FUNCTION PANEL A Routine 05/09/2020 4:33 AM EDT 05/09/2020 04:33:[address] [facility] GLUCOSE QUANTITATIVE BLOOD XCPT REAGENT STRIP POCT GLUCOSE, IVANA TRIMBLE Routine 05/08/2020 10:08 PM EDT 05/08/2020 10:08:[address] [facility] GLUCOSE QUANTITATIVE BLOOD XCPT REAGENT STRIP POCT GLUCOSE, IVANA KED Routine 05/08/2020 4:56 PM EDT 05/08/2020 04:56:[address] [facility] GLUCOSE QUANTITATIVE BLOOD XCPT REAGENT STRIP POCT GLUCOSE, DOC KED Routine 05/08/2020 12:39 PM EDT 05/08/2020 12:39:[address] [facility] ACETONE/OTHER KETONE BODIES SERUM QUANTITATIVE BETAHYDROXYBUTYR ATE Routine 05/08/2020 10:29 AM EDT 05/08/2020 10:29:[address] [facility] BLOOD COUNT COMPLETE AUTOMATED CBC Routine 05/08/2020 10:29 A M EDT 05/08/2020 10:29:[address] [facility] BASIC METABOLIC PANEL CALCIUM TOTAL BASIC METABOLIC PANEL Routi ne 05/08/2020 10:29 AM EDT 05/08/2020 10:29:00 AM EDT [facility] GLUCOSE QUANTITATIVE BLOOD XCPT REAGENT STRIP POCT GLUCOSE, DOC NAI Routine 05/08/2020 8:37 AM EDT 05/08/2020 08:37:[address] [facility] PROTHROMBIN TIME PROTIME INR Routine 05/08/2020 5:20 AM EDT 05/08/2020 05:20:[address] [facility] PHOSPHORUS INORGANIC PHOSPHORUS LEVEL Routine 05/08/2020 5:20 AM E DT 05/08/2020 05:20:[address] [facility] MAGNESIUM MAGNESIUM LEVEL Routine 05/08/2020 5:20 AM EDT 05/08/2020 05:20:[address] [facility] HEMOGLOBIN GLYCOSYLATED A1C HEMOGLOBIN A1C Routine 05/08/2020 5:20 AM EDT 05/08/2020 05:20:[address] [facility] HEPATIC FUNCTION PANEL HEPATIC FUNCTION PANEL A Routine 05/08/2020 5:20 AM EDT 05/08/2020 05:20:[address] [facility] COVID-19 PCR COVID-19 PCR Routine 05/07/2020 10:39 PM EDT 05/07/2020 10:39:[address] [facility] GLUCOSE QUANTITATIVE BLOOD XCPT REAGENT STRIP POCT GLUCOSE, DOC NAI Routine 05/07/2020 9:23 PM EDT 05/07/2020 09:23:[address] [facility] CT ABDOEN & PELVIS W/CONTRAST MATERIAL CT ABDOMEN PELVIS WI TH CONTRAST [id number] Urgent 05/07/2020 9:11 PM EDT 05/07/2020 09:11:[address] [facility] GLUCOSE QUANTITATIVE BLOOD XCPT REAGENT STRIP POCT GLUCOSE, DOC KEEdmundo Routine 05/07/2020 5:04 PM EDT 05/07/2020 05:04:[address] [facility] HEPATOBILIARY SYST IMAGING INCLUDING GALLBLADDER NM H EPATOBILIARY IMAGING HIDA [id number] Routine 05/07/2020 12:39 PM EDT 05/07/2020 12:39 :[address] [facility] GLUCOSE QUANTITATIVE BLOOD XCPT REAGENT STRIP POCT GLUCOSE, DOC NAI Routine 05/07/2020 12:08 PM EDT 05/07/2020 12:08:[address] [facility] GLUCOSE QUANTITATIVE BLOOD XCPT REAGENT STRIP POCT GLUCOSE, DOC KEEdmundo Routine 05/07/2020 8:17 AM EDT 05/07/2020 08:17:[address] [facility] GLUCOSE QUANTITATIVE BLOOD XCPT REAGENT STRIP POCT GLUCOSE, IVANA TRIMBLE Routine 05/07/2020 8:16 AM EDT 05/07/2020 08:16:[address] [facility] BASIC METABOLIC PANEL CALCIUM TOTAL BASIC METABOLIC PANEL Routi ne 05/07/2020 7:57 AM EDT 05/07/2020 07:57:[address] [facility] PROTHROMBIN TIME PROTIME INR Routine 05/07/2020 4:24 AM EDT 05/07/2020 04:24:[address] [facility] BLOOD COUNT COMPLETE AUTOMATED CBC Routine 05/07/2020 4:24 A M EDT 05/07/2020 04:24:[address] [facility] PHOSPHORUS INORGANIC PHOSPHORUS LEVEL Routine 05/07/2020 4:24 AM E DT 05/07/2020 04:24:[address] [facility] MAGNESIUM MAGNESIUM LEVEL Routine 05/07/2020 4:24 AM EDT 05/07/2020 04:24:[address] [facility] HEPATIC FUNCTION PANEL HEPATIC FUNCTION PANEL A Routine 05/07/2020 4:24 AM EDT 05/07/2020 04:24:[address] [facility] GLUCOSE QUANTITATIVE BLOOD XCPT REAGENT STRIP POCT GLUCOSEIVANA Routine 05/06/2020 9:30 PM EDT 05/06/2020 09:30:[address] [facility] GLUCOSE QUANTITATIVE BLOOD XCPT REAGENT STRIP POCT GLUCOSEIVANA Routine 05/06/2020 5:09 PM EDT 05/06/2020 05:09:[address] [facility] CT HEAD/BRAIN W/O CONTRAST MATERIAL CT HEAD WITHOUT CONTRAST 70 450 Routine 05/06/2020 4:52 PM EDT 05/06/2020 04:52:[address] [facility] GLUCOSE QUANTITATIVE BLOOD XCPT REAGENT STRIP POCT GLUCOSEIVANA Routine 05/06/2020 3:50 PM EDT 05/06/2020 03:50:[address] [facility] ULTRASOUND ABDOMINAL REAL TIME W/IMAGE LIMITED US ABDOMEN L IMITED [id number] Routine 05/06/2020 3:19 PM EDT 05/06/2020 03:19:[address] [facility] BLOOD COUNT COMPLETE AUTOMATED CBC Routine 05/06/2020 12:47 P M EDT 05/06/2020 12:47:[address] [facility] GLUCOSE QUANTITATIVE BLOOD XCPT REAGENT STRIP POCT GLUCOSE, IVANA TRIMBLE Routine 05/06/2020 12:29 PM EDT 05/06/2020 12:29:[address] [facility] GLUCOSE QUANTITATIVE BLOOD XCPT REAGENT STRIP POCT GLUCOSE, IVANA TRIMBLE Routine 05/06/2020 8:29 AM EDT 05/06/2020 08:29:[address] [facility] PROTHROMBIN TIME PROTIME INR Routine 05/06/2020 4:42 AM EDT 05/06/2020 04:42:[address] [facility] PHOSPHORUS INORGANIC PHOSPHORUS LEVEL Routine 05/06/2020 4:42 AM E DT 05/06/2020 04:42:[address] [facility] MAGNESIUM MAGNESIUM LEVEL Routine 05/06/2020 4:42 AM EDT 05/06/2020 04:42:[address] [facility] HEPATIC FUNCTION PANEL HEPATIC FUNCTION PANEL A Routine 05/06/2020 4:42 AM EDT 05/06/2020 04:42:[address] [facility] BASIC METABOLIC PANEL CALCIUM TOTAL BASIC METABOLIC PANEL Routi ne 05/06/2020 4:42 AM EDT 05/06/2020 04:42:[address] [facility] GLUCOSE QUANTITATIVE BLOOD XCPT REAGENT STRIP POCT GLUCOSE, IVANA TRIMBLE Routine 05/06/2020 4:32 AM EDT 05/06/2020 04:32:[address] [facility] GLUCOSE QUANTITATIVE BLOOD XCPT REAGENT STRIP POCT GLUCOSE, IVANA TRIMBLE Routine 05/05/2020 9:00 PM EDT 05/05/2020 09:00:[address] [facility] GLUCOSE QUANTITATIVE BLOOD XCPT REAGENT STRIP POCT GLUCOSE, IVANA TRIMBLE Routine 05/05/2020 8:10 PM EDT 05/05/2020 08:10:[address] [facility] GLUCOSE QUANTITATIVE BLOOD XCPT REAGENT STRIP POCT GLUCOSE, IVANA TRIMBLE Routine 05/05/2020 6:40 PM EDT 05/05/2020 06:40:[address] [facility] COVID-19 PCR [facility] COVID-19 PCR STAT 05/05/2020 6:19 PM EDT 05/05/2020 06:19:[address] [facility] GLUCOSE QUANTITATIVE BLOOD XCPT REAGENT STRIP POCT GLUCOSE, IVANA TRIMBLE Routine 05/05/2020 5:30 PM EDT 05/05/2020 05:30:[address] [facility] GLUCOSE QUANTITATIVE BLOOD XCPT REAGENT STRIP POCT GLUCOSE, IVANA TRIMBLE Routine 05/05/2020 5:03 PM EDT 05/05/2020 05:03:[address] [facility] GLUCOSE QUANTITATIVE BLOOD XCPT REAGENT STRIP POCT GLUCOSE, IVANA TRIMBLE Routine 05/05/2020 5:01 PM EDT 05/05/2020 05:01:[address] [facility] GLUCOSE QUANTITATIVE BLOOD XCPT REAGENT STRIP POCT GLUCOSE, IVANA TRIMBLE Routine 05/05/2020 12:15 PM EDT 05/05/2020 12:15:[address] [facility] PHOSPHORUS INORGANIC PHOSPHORUS LEVEL Routine 05/05/2020 8:51 AM E DT 05/05/2020 08:51:[address] [facility] MAGNESIUM MAGNESIUM LEVEL Routine 05/05/2020 8:51 AM EDT 05/05/2020 08:51:[address] [facility] COMPREHENSIVE METABOLIC PANEL COMPREHENSIVE METABOLIC PANEL Rou rodney 05/05/2020 8:51 AM EDT 05/05/2020 [facility] XCPT REAGENT STRIP POCT GLUCOSE, IVANA TRIMBLE Routine 05/05/2020 8:35 AM EDT 05/05/2020 08:35:[address] [facility] GLUCOSE QUANTITATIVE BLOOD XCPT REAGENT STRIP POCT GLUCOSE, IVANA TRIMBLE Routine 05/05/2020 6:16 AM EDT 05/05/2020 06:16:[address] [facility] PROTHROMBIN TIME PROTIME INR Routine 05/05/2020 4:52 AM EDT 05/05/2020 04:52:[address] [facility] GLUCOSE QUANTITATIVE BLOOD XCPT REAGENT STRIP POCT GLUCOSE, IVANA TRIMBLE Routine 05/04/2020 11:28 PM EDT 05/04/2020 11:28:[address] [facility] GLUCOSE QUANTITATIVE BLOOD XCPT REAGENT STRIP POCT GLUCOSE, IVANA TRIMBLE Routine 05/04/2020 10:00 PM EDT 05/04/2020 10:00:[address] [facility] GLUCOSE QUANTITATIVE BLOOD XCPT REAGENT STRIP POCT GLUCOSE, IVANA TRIMBLE Routine 05/04/2020 9:23 PM EDT 05/04/2020 09:23:[address] [facility] GLUCOSE QUANTITATIVE BLOOD XCPT REAGENT STRIP POCT GLUCOSE, DOC KED Routine 05/04/2020 9:09 PM EDT 05/04/2020 09:09:[address] [facility] GLUCOSE QUANTITATIVE BLOOD XCPT REAGENT STRIP POCT GLUCOSE, DOC KED Routine 05/04/2020 8:59 PM EDT 05/04/2020 08:59:[address] [facility] GLUCOSE QUANTITATIVE BLOOD XCPT REAGENT STRIP POCT GLUCOSE, DOC KED Routine 05/04/2020 4:49 PM EDT 05/04/2020 04:49:[address] [facility] GLUCOSE QUANTITATIVE BLOOD XCPT REAGENT STRIP POCT GLUCOSE, DOC KED Routine 05/04/2020 12:27 PM EDT 05/04/2020 12:27:[address] [facility] GLUCOSE QUANTITATIVE BLOOD XCPT REAGENT STRIP POCT GLUCOSE, DOC KED Routine 05/04/2020 8:01 AM EDT 05/04/2020 08:01:[address] [facility] GLUCOSE QUANTITATIVE BLOOD XCPT REAGENT STRIP POCT GLUCOSE, DOC TOD Routine 05/04/2020 7:59 AM EDT 05/04/2020 07:59:[address] [facility] PROTHROMBIN TIME PROTIME INR Routine 05/04/2020 6:14 AM EDT 05/04/2020 06:14:[address] [facility] BILIRUBIN DIRECT BILIRUBIN, DIRECT Routine 05/04/2020 6:14 AM EDT 05/04/2020 06:14:[address] [facility] COMPREHENSIVE METABOLIC PANEL COMPREHENSIVE METABOLIC PANEL Rou rodney 05/04/2020 6:14 AM EDT 05/04/2020 06:14:[address] [facility] GLUCOSE QUANTITATIVE BLOOD XCPT REAGENT STRIP POCT GLUCOSE, DOC KED Routine 05/03/2020 9:01 PM EDT 05/03/2020 09:01:[address] [facility] GLUCOSE QUANTITATIVE BLOOD XCPT REAGENT STRIP POCT GLUCOSE, DOC KED Routine 05/03/2020 4:53 PM EDT 05/03/2020 04:53:[address] [facility] US RETROPERITONEAL REAL TIME W/IMAGE COMPLETE US RENAL OR A JOSI COMPLETE [id number] Routine 05/03/2020 2:24 PM EDT 05/03/2020 02:24:[address] [facility] GLUCOSE QUANTITATIVE BLOOD XCPT REAGENT STRIP POCT GLUCOSE, DOC KED Routine 05/03/2020 12:22 PM EDT 05/03/2020 12:22:[address] [facility] GLUCOSE QUANTITATIVE BLOOD XCPT REAGENT STRIP POCT GLUCOSE, DOC KEEdmundo Routine 05/03/2020 10:20 AM EDT 05/03/2020 10:20:[address] [facility] GLUCOSE QUANTITATIVE BLOOD XCPT REAGENT STRIP POCT GLUCOSE, IVANA KEEdmundo Routine 05/03/2020 8:51 AM EDT 05/03/2020 08:51:[address] [facility] GLUCOSE QUANTITATIVE BLOOD XCPT REAGENT STRIP POCT GLUCOSE, IVANA KED Routine 05/03/2020 8:22 AM EDT 05/03/2020 08:22:[address] [facility] PROTHROMBIN TIME PROTIME INR Routine 05/03/2020 3:53 AM EDT 05/03/2020 03:53:[address] [facility] PHOSPHORUS INORGANIC PHOSPHORUS LEVEL Routine 05/03/2020 3:53 AM E DT 05/03/2020 03:53:[address] [facility] BILIRUBIN DIRECT BILIRUBIN, DIRECT Routine 05/03/2020 3:53 AM EDT 05/03/2020 03:53:[address] [facility] COMPREHENSIVE METABOLIC PANEL COMPREHENSIVE METABOLIC PANEL Rou rodney 05/03/2020 3:53 AM EDT 05/03/2020 03:53:00 AM [facility] GLUCOSE QUANTITATIVE BLOOD XCPT REAGENT STRIP POCT GLUCOSE, IVANA TRIMBLE Routine 05/02/2020 4:59 PM EDT 05/02/2020 04:59:[address] [facility] URNLS DIP STICK/TABLET REAGENT AUTO MICROSCOPY URINAL YSIS WITH REFLEX URINE CULTURE Routine 05/02/2020 2:30 PM EDT 05/02/2020 02:30 :[address] [facility] GLUCOSE QUANTITATIVE BLOOD XCPT REAGENT STRIP POCT GLUCOSE, DOC KED Routine 05/02/2020 12:28 PM EDT 05/02/2020 12:28:[address] [facility] GLUCOSE QUANTITATIVE BLOOD XCPT REAGENT STRIP POCT GLUCOSE, IVANA TRIMBLE Routine 05/02/2020 8:23 AM EDT 05/02/2020 08:23:[address] [facility] PROTHROMBIN TIME PROTIME INR Routine 05/02/2020 3:30 AM EDT 05/02/2020 03:30:[address] [facility] PHOSPHORUS INORGANIC PHOSPHORUS LEVEL Routine 05/02/2020 3:30 AM E DT 05/02/2020 03:30:[address] [facility] MAGNESIUM MAGNESIUM LEVEL Routine 05/02/2020 3:30 AM EDT 05/02/2020 03:30:[address] [facility] BILIRUBIN DIRECT BILIRUBIN, DIRECT Routine 05/02/2020 3:30 AM EDT 05/02/2020 03:30:[address] [facility] COMPREHENSIVE METABOLIC PANEL COMPREHENSIVE METABOLIC PANEL Rou rodney 05/02/2020 3:30 AM EDT 05/02/2020 03:30:[address] [facility] GLUCOSE QUANTITATIVE BLOOD XCPT REAGENT STRIP POCT GLUCOSE, IVANA TRIMBLE Routine 05/01/2020 9:15 PM EDT 05/01/2020 09:15:[address] [facility] GLUCOSE QUANTITATIVE BLOOD XCPT REAGENT STRIP POCT GLUCOSE, IVANA TRIMBLE Routine 05/01/2020 5:18 PM EDT 05/01/2020 05:18:[address] [facility] GLUCOSE QUANTITATIVE BLOOD XCPT REAGENT STRIP POCT GLUCOSE, IVANA TRIMBLE Routine 05/01/2020 12:16 PM EDT 05/01/2020 12:16:[address] [facility] COMPREHENSIVE METABOLIC PANEL COMPREHENSIVE METABOLIC PANEL Rou rodney 05/01/2020 9:54 AM EDT 05/01/2020 09:[facility]ANTITATIVE BLOOD XCPT REAGENT STRIP POCT GLUCOSE, IVANA TRIMBLE Routine 05/01/2020 8:20 AM EDT 05/01/2020 08:20:[address] [facility] PROTHROMBIN TIME PROTIME INR Routine 05/01/2020 5:09 AM EDT 05/01/2020 05:09:[address] [facility] PHOSPHORUS INORGANIC PHOSPHORUS LEVEL Routine 05/01/2020 5:09 AM E DT 05/01/2020 05:09:[address] [facility] MAGNESIUM MAGNESIUM LEVEL Routine 05/01/2020 5:09 AM EDT 05/01/2020 05:09:[address] [facility] GLUCOSE QUANTITATIVE BLOOD XCPT REAGENT STRIP POCT GLUCOSE, IVANA TRIMBLE Routine 04/30/2020 9:03 PM EDT 04/30/2020 09:03:[address] [facility] GLUCOSE QUANTITATIVE BLOOD XCPT REAGENT STRIP POCT GLUCOSE, IVANA TRIMBLE Routine 04/30/2020 4:58 PM EDT 04/30/2020 04:58:[address] [facility] MAGNESIUM MAGNESIUM LEVEL Routine 04/30/2020 3:45 PM EDT 04/30/2020 03:45:[address] [facility] CALCIUM IONIZED CALCIUM, IONIZED Routine 04/30/2020 3:45 PM EDT 04/30/2020 03:45:[address] [facility] GLUCOSE QUANTITATIVE BLOOD XCPT REAGENT STRIP POCT GLUCOSE, IVANA TRIMBLE Routine 04/30/2020 12:25 PM EDT 04/30/2020 12:25:[address] [facility] GLUCOSE QUANTITATIVE BLOOD XCPT REAGENT STRIP POCT GLUCOSE, IVANA TRIMBLE Routine 04/30/2020 12:14 PM EDT 04/30/2020 12:14:[address] [facility] GLUCOSE QUANTITATIVE BLOOD XCPT REAGENT STRIP POCT GLUCOSE, IVANA TRIMBLE Routine 04/30/2020 8:24 AM EDT 04/30/2020 08:24:[address] [facility] PROTHROMBIN TIME PROTIME INR Routine 04/30/2020 5:59 AM EDT 04/30/2020 05:59:[address] [facility] PHOSPHORUS INORGANIC PHOSPHORUS LEVEL Routine 04/30/2020 5:59 AM E DT 04/30/2020 05:59:[address] [facility] MAGNESIUM MAGNESIUM LEVEL Timed 04/30/2020 5:59 AM EDT 04/30/2020 05:59:[address] [facility] HEPATIC FUNCTION PANEL HEPATIC FUNCTION PANEL A Routine 04/30/2020 5:59 AM EDT 04/30/2020 05:59:[address] [facility] BASIC METABOLIC PANEL CALCIUM TOTAL BASIC METABOLIC PANEL Timed 04/30/2020 5:59 AM EDT 04/30/2020 05:59:[address] [facility] MAGNESIUM MAGNESIUM LEVEL Timed 04/29/2020 5:46 PM EDT 04/29/2020 05:46:[address] [facility] BASIC METABOLIC PANEL CALCIUM TOTAL BASIC METABOLIC PANEL Timed 04/29/2020 5:46 PM EDT 04/29/2020 05:46:[address] [facility] GLUCOSE QUANTITATIVE BLOOD XCPT REAGENT STRIP POCT GLUCOSEIVANA Routine 04/29/2020 4:53 PM EDT 04/29/2020 04:53:[address] [facility] GLUCOSE QUANTITATIVE BLOOD XCPT REAGENT STRIP POCT GLUCOSE, IVANA TRIMBLE Routine 04/29/2020 12:09 PM EDT 04/29/2020 12:09:[address] [facility] GLUCOSE QUANTITATIVE BLOOD XCPT REAGENT STRIP POCT GLUCOSE, IVANA TRIMBLE Routine 04/29/2020 8:22 AM EDT 04/29/2020 08:22:[address] [facility] BLOOD COUNT COMPLETE AUTOMATED CBC AND DIFFERENTIAL Routine 04/29/2020 6:20 AM EDT 04/29/2020 06:20:[address] [facility] COMPREHENSIVE METABOLIC PANEL COMPREHENSIVE METABOLIC PANEL Rou rodney 04/29/2020 6:20 AM EDT 04/29/2020 06:20:[address] [facility] PROTHROMBIN TIME PROTIME INR Routine 04/29/2020 4:27 AM EDT 04/29/2020 04:27:[address] [facility] MAGNESIUM MAGNESIUM LEVEL Timed 04/28/2020 10:33 PM EDT 04/28/2020 10:33:[address] [facility] BASIC METABOLIC PANEL CALCIUM TOTAL BASIC METABOLIC PANEL Timed 04/28/2020 10:33 PM EDT 04/28/2020 10:33:[address] [facility] GLUCOSE QUANTITATIVE BLOOD XCPT REAGENT STRIP POCT GLUCOSE, IVANA TRIMBLE Routine 04/28/2020 8:52 PM EDT 04/28/2020 08:52:[address] [facility] GLUCOSE QUANTITATIVE BLOOD XCPT REAGENT STRIP POCT GLUCOSE, IVANA TRIMBLE Routine 04/28/2020 5:16 PM EDT 04/28/2020 05:16:[address] [facility] ULTRASOUND ABDOMINAL REAL TIME W/IMAGE LIMITED US ABDOMEN LIMIT ED [id number] Urgent 04/28/2020 1:19 PM EDT 04/28/2020 01:19:[address] [facility] GLUCOSE QUANTITATIVE BLOOD XCPT REAGENT STRIP POCT GLUCOSE, IVANA TRIMBLE Routine 04/28/2020 12:35 PM EDT 04/28/2020 12:35:[address] [facility] GLUCOSE QUANTITATIVE BLOOD XCPT REAGENT STRIP POCT GLUCOSE, IVANA ARIZAD Routine 04/28/2020 8:30 AM EDT 04/28/2020 08:30:[address] [facility] BLOOD COUNT COMPLETE AUTOMATED CBC AND DIFFERENTIAL Timed 04/28/2020 8:13 AM EDT 04/28/2020 08:13:[address] [facility] MAGNESIUM MAGNESIUM LEVEL Timed 04/28/2020 8:13 AM EDT 04/28/2020 08:13:[address] [facility] HEPATIC FUNCTION PANEL HEPATIC FUNCTION PANEL A Timed 04/28 8:13 AM EDT 04/28/2020 08:13:00 AM EDT [facility] BASIC METABOLIC PANEL CALCIUM TOTAL BASIC METABOLIC PANEL Timed 04/28/2020 8:13 AM EDT 04/28/2020 08:13:[address] [facility] GLUCOSE QUANTITATIVE BLOOD XCPT REAGENT STRIP POCT GLUCOSE, DOC KED Routine 04/28/2020 7:41 AM EDT 04/28/2020 07:41:[address] [facility] PROTHROMBIN TIME PROTIME INR Routine 04/28/2020 5:07 AM EDT 04/28/2020 05:07:[address] [facility] GLUCOSE QUANTITATIVE BLOOD XCPT REAGENT STRIP POCT GLUCOSE, DOC KED Routine 04/27/2020 9:09 PM EDT 04/27/2020 09:09:[address] [facility] BLOOD COUNT COMPLETE AUTOMATED CBC AND DIFFERENTIAL Timed 04/27/2020 5:47 PM EDT 04/27/2020 05:47:[address] [facility] THYROID STIMULATING HORMONE TSH TSH Routine 04/27/2020 5:47 PM EDT 04/27/2020 05:47:[address] [facility] MAGNESIUM MAGNESIUM LEVEL Timed 04/27/2020 5:47 PM EDT 04/27/2020 05:47:[address] [facility] AMMONIA AMMONIA LEVEL Routine 04/27/2020 5:47 PM EDT 04/27/2020 05:47:[address] [facility] HEPATIC FUNCTION PANEL HEPATIC FUNCTION PANEL A Timed 04/27 5:47 PM EDT 04/27/2020 05:47:00 PM EDT [facility] BASIC METABOLIC PANEL CALCIUM TOTAL BASIC METABOLIC PANEL Timed 04/27/2020 5:47 PM EDT 04/27/2020 05:47:[address] [facility] GLUCOSE QUANTITATIVE BLOOD XCPT REAGENT STRIP POCT GLUCOSE, DOC KED Routine 04/27/2020 4:51 PM EDT 04/27/2020 04:51:[address] [facility] PICC ULTRASOUND - BEDSIDE PROCEDURE PICC ULTRASOUND - BEDSI DE PROCEDURE Routine 04/27/2020 2:07 PM EDT 04/27/2020 02:07:[address] [facility] GLUCOSE QUANTITATIVE BLOOD XCPT REAGENT STRIP POCT GLUCOSE, DOC KED Routine 04/27/2020 12:14 PM EDT 04/27/2020 12:14:[address] [facility] BLOOD COUNT COMPLETE AUTO&AUTO DIFRNTL WBC COUNT CBC AND DIFFER ENTIAL Timed 04/27/2020 8:26 AM EDT 04/27/2020 08:26:[address] [facility] MAGNESIUM MAGNESIUM LEVEL Timed 04/27/2020 8:26 AM EDT 04/27/2020 08:26:[address] [facility] HEPATIC FUNCTION PANEL HEPATIC FUNCTION PANEL A Timed 04/27 8:26 AM EDT 04/27/2020 08:26:00 AM [facility] BASIC METABOLIC PANEL CALCIUM TOTAL BASIC METABOLIC PANEL Timed 04/27/2020 8:26 AM EDT 04/27/2020 [facility] QUANTITATIVE BLOOD XCPT REAGENT STRIP POCT GLUCOSE, IVANA TRIMBLE Routine 04/27/2020 8:15 AM EDT 04/27/2020 08:15:[address] [facility] PROTHROMBIN TIME PROTIME INR Routine 04/27/2020 3:46 AM EDT 04/27/2020 03:46:[address] [facility] GLUCOSE QUANTITATIVE BLOOD XCPT REAGENT STRIP POCT GLUCOSE, IVANA TRIMBLE Routine 04/26/2020 9:49 PM EDT 04/26/2020 09:49:[address] [facility] LACTATE LACTIC ACID LEVEL, PLASMA Routine 04/26/2020 8:18 PM EDT 04/26/2020 08:18:[address] [facility] GLUCOSE QUANTITATIVE BLOOD XCPT REAGENT STRIP POCT GLUCOSE, DOC NAI Routine 04/26/2020 4:54 PM EDT 04/26/2020 04:54:[address] [facility] BLOOD COUNT COMPLETE AUTOMATED CBC AND DIFFERENTIAL Timed 04/26/2020 3:52 PM EDT 04/26/2020 03:52:[facility]ESIUM MAGNESIUM LEVEL Timed 04/26/2020 3:52 PM EDT 04/26/2020 03:52:[address] [facility] LACTATE LACTIC ACID LEVEL, PLASMA Routine 04/26/2020 3:52 PM EDT 04/26/2020 03:52:[address] [facility] HEPATIC FUNCTION PANEL HEPATIC FUNCTION PANEL A Timed 04/26 3:52 PM EDT 04/26/2020 03:52:00 PM EDT [facility] BASIC METABOLIC PANEL CALCIUM TOTAL BASIC METABOLIC PANEL Timed 04/26/2020 3:52 PM EDT 04/26/2020 03:52:[address] [facility] GLUCOSE QUANTITATIVE BLOOD XCPT REAGENT STRIP POCT GLUCOSE, DOC KED Routine 04/26/2020 12:24 PM EDT 04/26/2020 12:24:[address] [facility] PROTHROMBIN TIME PROTIME INR Routine 04/26/2020 10:45 AM EDT 04/26/2020 10:45:[address] [facility] LACTATE LACTIC ACID LEVEL, PLASMA Routine 04/26/2020 10:45 AM EDT 04/26/2020 10:45:[address] [facility] AMMONIA AMMONIA LEVEL Routine 04/26/2020 10:45 AM EDT 04/26/2020 10:45:[address] [facility] URNLS DIP STICK/TABLET REAGENT AUTO MICROSCOPY URINALYSIS W ITH MICROSCOPIC Routine 04/26/2020 9:16 AM EDT 04/26/2020 09:16:[address] [facility] SODIUM URINE SODIUM, URINE, RANDOM Routine 04/26/2020 9:12 AM EDT 04/26/2020 09:12:[address] [facility] POTASSIUM URINE POTASSIUM, URINE, RANDOM Routine 04/26/2020 9:12 A M EDT 04/26/2020 09:12:[address] [facility] OSMOLALITY URINE OSMOLALITY, URINE Routine 04/26/2020 9:12 AM EDT 04/26/2020 09:12:[address] [facility] GLUCOSE QUANTITATIVE BLOOD XCPT REAGENT STRIP POCT GLUCOSE, DOC KED Routine 04/26/2020 8:34 AM EDT 04/26/2020 08:34:[address] [facility] BASIC METABOLIC PANEL CALCIUM TOTAL BASIC METABOLIC PANEL Timed 04/26/2020 7:46 AM EDT 04/26/2020 07:46:[address] [facility] BLOOD COUNT COMPLETE AUTO&AUTO DIFRNTL WBC COUNT CBC AND DIFFER ENTIAL Timed 04/26/2020 7:46 AM EDT 04/26/2020 07:46:[address] [facility] MAGNESIUM MAGNESIUM LEVEL Timed 04/26/2020 7:46 AM EDT 04/26/2020 07:46:[address] [facility] HEPATIC FUNCTION PANEL HEPATIC FUNCTION PANEL A Timed 04/26 7:46 AM EDT [facility] BLOOD XCPT REAGENT STRIP POCT GLUCOSE, DOC TOD Routine 04/25/2020 8:47 PM EDT 04/25/2020 08:47:[address] [facility] BLOOD COUNT COMPLETE AUTO&AUTO DIFRNTL WBC COUNT CBC AND DIFFER ENTIAL Timed 04/25/2020 5:43 PM EDT 04/25/2020 05:43:[address] [facility] MAGNESIUM MAGNESIUM LEVEL Timed 04/25/2020 5:29 PM EDT 04/25/2020 05:29:[address] [facility] LACTATE LACTIC ACID LEVEL, PLASMA Routine 04/25/2020 5:29 PM EDT 04/25/2020 05:29:[address] [facility] HEPATIC FUNCTION PANEL HEPATIC FUNCTION PANEL A Timed 04/25 5:29 PM EDT 04/25/2020 [facility]EL CALCIUM TOTAL BASIC METABOLIC PANEL Timed 04/25/2020 5:29 PM EDT 04/25/2020 05:29:[address] [facility] GLUCOSE QUANTITATIVE BLOOD XCPT REAGENT STRIP POCT GLUCOSE, DOC NAI Routine 04/25/2020 5:08 PM EDT 04/25/2020 05:08:[address] [facility] GLUCOSE QUANTITATIVE BLOOD XCPT REAGENT STRIP POCT GLUCOSE, DOC KED Routine 04/25/2020 12:05 PM EDT 04/25/2020 12:05:[address] [facility] EKG 12-LEAD - CMAXX REPORT EKG 12-LEAD - CMAXX REPORT 04/25/2020 10:33 AM EDT 04/25/2020 10:33:[address] [facility] EKG 12-LEAD - CMAXX REPORT EKG 12-LEAD - CMAXX REPORT 04/25/2020 10:33 AM EDT 04/25/2020 10:33:[address] [facility] EKG 12-LEAD - CMAXX REPORT EKG 12-LEAD - CMAXX REPORT 04/25/2020 10:30 AM EDT 04/25/2020 10:30:[address] [facility] EKG 12-LEAD EKG 12-LEAD STAT 04/25/2020 10:30 AM EDT 04/25/2020 10:30:[address] [facility] CULTURE BACTERIAL BLOOD AEROBIC W/ID ISOLATES BLOOD CULTURE S TAT 04/25/2020 9:59 AM EDT 04/25/2020 09:59:00 AM EDT [facility] GLUTAMYLTRASE GAMMA GAMMA GT Routine 04/25/2020 9:59 AM EDT 04/25/2020 09:59:[address] [facility] GLUCOSE QUANTITATIVE BLOOD XCPT REAGENT STRIP POCT GLUCOSE, DOC KED Routine 04/25/2020 8:11 AM EDT 04/25/2020 08:11:[address] [facility] THROMBOPLASTIN TIME PARTIAL PLASMA/WHOLE BLOOD PARTIA L THROMBOPLASTIN TIME (PTT) Routine 04/25/2020 6:06 AM EDT 04/25/2020 06:06 :[address] [facility] ACUTE HEPATITIS PANEL HEPATITIS PANEL, ACUTE Routine 04/25/2020 6:06 AM EDT 04/25/2020 06:06:00 AM [facility] FIBRINOGEN ACTIVITY FIBRINOGEN LEVEL Routine 04/25/2020 6:06 AM ED T 04/25/2020 06:06:[address] [facility] FIBRIN DGRADJ PRODUCTS D-DIMER QUAL/SEMIQUAN D-DIMER, QUANTITAT LESLIE Routine 04/25/2020 6:06 AM EDT 04/25/2020 06:06:[address] [facility] CT ABDOEN & PELVIS W/CONTRAST MATERIAL CT ABDOMEN PELVIS WI TH CONTRAST [id number] STAT 04/25/2020 5:54 AM EDT 04/25/2020 05:54:[address] [facility] XR CHEST FRONTAL ONLY [id number] XR CHEST FRONTAL ONLY [id number] Routine 04/25/2020 5:48 AM EDT 04/25/2020 05:48:[address] [facility] COVID-19 PCR COVID-19 PCR Routine 04/25/2020 3:59 AM EDT 04/25/2020 03:59:[address] [facility] URNLS DIP STICK/TABLET REAGENT AUTO MICROSCOPY URINAL YSIS WITH REFLEX URINE CULTURE Routine 04/25/2020 3:59 AM EDT 04/25/2020 03:59 :[address] [facility] IRON TOTAL FE BINDING CAPACITY Routine 04/25/2020 3:59 AM EDT 04/25/2020 03:59:[address] [facility] CULTURE BACTERIAL BLOOD AEROBIC W/ID ISOLATES BLOOD CULTURE S TAT 04/25/2020 3:59 AM EDT 04/25/2020 03:59:[address] [facility] CULTURE BACTERIAL BLOOD AEROBIC W/ID ISOLATES BLOOD CULTURE S TAT 04/25/2020 3:59 AM EDT 04/25/2020 03:59:[address] [facility] PROTHROMBIN TIME PROTIME INR Routine 04/25/2020 3:59 AM EDT 04/25/2020 03:59:[address] [facility] BLOOD COUNT COMPLETE AUTOMATED CBC AND DIFFERENTIAL Routine 04/25/2020 3:59 AM EDT 04/25/2020 03:59:[address] [facility] TROPONIN QUANTITATIVE TROPONIN T Routine 04/25/2020 3:59 AM EDT 04/25/2020 03:59:[address] [facility] PHOSPHORUS INORGANIC PHOSPHORUS LEVEL Routine 04/25/2020 3:59 AM E DT 04/25/2020 03:59:[address] [facility] MAGNESIUM MAGNESIUM LEVEL Routine 04/25/2020 3:59 AM EDT 04/25/2020 03:59:[address] [facility] LIPASE LIPASE LEVEL Routine 04/25/2020 3:59 AM EDT 04/25/2020 03:59:[address] [facility] LACTATE LACTIC ACID LEVEL, PLASMA Routine 04/25/2020 3:59 AM EDT 04/25/2020 03:59:[address] [facility] FOLIC ACID SERUM FOLATE Routine 04/25/2020 3:59 AM EDT 04/25/2020 03:59:[address] [facility] FERRITIN FERRITIN LEVEL Routine 04/25/2020 3:59 AM EDT 04/25/2020 03:59:[address] [facility] CYANOCOBALAMIN VITAMIN B-12 VITAMIN B12 Routine 04/25/2020 3:59 AM EDT 04/25/2020 03:59:[address] [facility] COMPREHENSIVE METABOLIC PANEL COMPREHENSIVE METABOLIC PANEL Rou rodney 04/25/2020 3:59 AM EDT 04/25/2020 03:59:[address] [facility] Virtual Brief Check In by an MD/QHP 11/11/2019 12:00:0 0 AM EDT [email or web address] ([facility]) URINE-NO MICRO 10/14/2019 12:00:00 AM EST eCW1 ([facility]) Results ID Date Data Source [id number] 09/08/2020 12:00:00 AM EST [facility] Name Value Range Interpretation Code Description Data Beronica rce(s) Supporting Document(s) [facility]2 [facility] This [facility] was ordered by [facility] and reported by [facility]. ID Date Data Source [id number] 07/20/2020 02:30:00 PM EST [facility] ([facility], ) Name Value Range Interpretation Code Description Data Beronica rce(s) Supporting Document(s) Alt/SGPT 13 U/L 12-78 Normal (applies to non-numeric resul ts) [facility] ([facility], ) Ast/Sgot 29 U/L 7-37 Normal (applies to non-numeric resul ts) [facility] Bilirubin,Direct 1.7 mg/dL 0.0-0.2 Above high normal [facility] ([facility], ) Bilirubin,Total 3.3 mg/dL 0.2-1.0 Above high normal [facility] ([facility]) Alkaline Phosphatase 101 U/L 45-117 Normal (applies to non-num lev results) [facility] ([facility], ) Total Protein 6.8 GM/DL 6.4-8.2 Normal (applies to non-numeric re sults) [facility] ([facility], ) Albumin/Globulin Ratio 0.7 Normal (applies to non-n umeric results) [facility] ([facility]) Albumin 2.9 GM/DL 3.2-5.2 Below low normal [facility] ( [facility]) ID Date Data Source [id number] 07/08/2020 03:02:09 PM EST [facility] Name Value Range Interpretation Code Description Data Beronica rce(s) Supporting Document(s) Progress Note [facility] TYGQCp2fCmIYPuTx38/YEEvaQVHum6VtTZgkWZa4CZvpTJSjW0WvOMR7kY7vZSV4WXiSLgBiUoYxHQK1 lbm [file] wO4NRxIa1gPCYQdu0cyk37pJOdpZCCPWmHmXjCs1kFCWIKxKuqjSQk6Esx9aya9OwNb9/Juan Miguel/vqHR0gz [file] 2pU87Q7mFeoUjJDZ2D02JrlgpP38D1Ux96Zop5noMSFD2xCcI/vp 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/6az04/o24u6EuwJj8OtoIwpnvZb WTUIgIISIzf9p6qEZkN044cwV2K4rq7nhTdOSrv2r0v1QmyeHYuqL8ZKL8e/NprqVViQHKxA7rkOpkrR tOzZjrlu3AXO+7LdUaZqGlhJUry42Q9j+V+FKRP1hr FoH2p2wjlyex/314dP/f1JGw7hYYR0DL+CZquM/KQHQMFeLnxLlZZ2rPlsjRXOwJkrmw02u0Q372ErwX msZY+rlcC1dR/KDTsvFAW6iYToE1NUuVeB2q8or6mJc9vFN7jZx0lUkAdULH+nGkQDfS4FnQLH4c3gGk cME5dB2K4c8Q5GeafomTFVX199bUQsvzzAq1cUANaa puxuUS0OwHWGBeHEbNF5MAvuMg7qHzoKqg1euDRyH56RuxHqv3QbcZ3AwYg424m6P+oS2850dDwxV0gC +0uGWhi7MQaKA1FoiwFuFkFEsRjogrOwKymPq+lasWlv99hJCEnjGWVQ9ZCBHSewoYDmJqIQY0vT06Xo bZQ/w6ifQ3eBTx2LsAZ127oTC6H+ok6f6Hdivo/2xe rx0YEa1U1eqjjIOivsyGdTfvh+lcz69WaC4U4fkwOnlzkWoupzLQ1E2e1H4K2EZ1k/Ray/txd2tDrgju [facility]+lR3v+J4E3YsSql/iPBvKvNNMFYm5FCTTWhE0ld5Tj1/R1f0cbeEtssRZNQ4SWtkhQRZtkwQA [file] C/g2Yb5VWJ/DlrUU8WoFiaWxjzhv4Ik6+Luis Miguel/Nei3 [file] WrVtYTXIXbHbDG7EADd= ID Date Data Source [facility] 06/18/2020 11:15:08 AM EDT eCW1 ([facility]) Name Value Range Interpretation Code Description Data Beronica rce(s) Supporting Document(s) LRY LIVER US eCW1 ([facility]) ID Date Data Source [id number] 06/16/2020 12:04:00 PM EDT [facility] ([facility]) Name Value Range Interpretation Code Description Data Beronica rce(s) Supporting Document(s) Ast/Sgot 53 U/L 7-37 Above high normal [facility] ([facility]) Bilirubin,Total 2.7 mg/dL 0.2-1.0 Above high normal [facility] ([facility]) Alkaline Phosphatase 103 U/L 45-117 Normal (applies to non-num lev results) [facility] ([facility]) Alt/SGPT 34 U/L 12-78 Normal (applies to non-numeric resul ts) [facility] ([facility]) Total Protein 7.3 GM/DL 6.4-8.2 Normal (applies to non-numeric re sults) [facility] Albumin 2.5 GM/DL 3.2-5.2 Below low normal [facility] ( [facility]) Bilirubin,Direct 2.1 mg/dL 0.0-0.2 Above high normal [facility] ([facility]) Albumin/Globulin Ratio 0.5 Normal (applies to non-n umeric results) [facility] ([facility]) ID Date Data Source [id number] 05/27/2020 01:05:00 PM EDT [facility] ([facility]) Name Value Range Interpretation Code Description Data Beronica rce(s) Supporting Document(s) Cobalamin (Vitamin B12) [Mass/volume] in Serum or Plasma 1680 pg /mL 247-911 Above high normal [facility] ([facility]) VITAMIN B12 NORMAL RANGE NORMAL 247 - 911 PG/ML INDETERMINATE 211 - 246 PG/ML DEFICIENT LESS THAN 211 PG/ML ID Date Data Source [id number] 05/27/2020 01:05:00 PM EDT [facility] ([facility]) Name Value Range Interpretation Code Description Data Beronica rce(s) Supporting Document(s) Blood Urea Nitrogen 4 mg/dL 7-18 Below low normal [facility] ([facility]) Creatinine For GFR 0.75 mg/dL 0.70-1.30 Normal (applies to non -numeric results) [facility] ([facility]) Glucose, Fasting 78 mg/dL 70-100 Normal (applies to non-numeric results) [facility] ([facility]) Glomerular Filtration Rate Laboratory test result Normal (applies to non- numeric results) [facility] ([facility]) <content>Units are mL/min/1.73 m2</content>
<content></content>
<content>Chronic Kidney Disease Staging per NKF:</content>
<content></content>
<content>Stage I & II GFR >=60 Normal to Mildly Decreased</content>
<content>Stage III GFR 30- 59 Moderately Decreased</content>
<content>Stage IV GFR 15-29 Severely Decreased</content>
<content>Stage V GFR <15 Very Little GFR Left</content>
<content>ESRD GFR <15 on NURSING ATTENDANT</content>
<content></content> Sodium Level 140 meq/L 136-145 Normal (applies to non-numeric res ults) [facility] Potassium Serum 3.6 meq/L 3.5-5.1 Normal (applies to non-numeric results) [facility] ([facility]) Carbon Dioxide Level 25 meq/L 21-32 Normal (applies to non-num lev results) [facility] ([facility]) Anion Gap 7 meq/L 8-16 Below low normal [facility] ( [facility]) Chloride Level 108 meq/L 98-107 Above high normal [facility] ([facility]) Ast/Sgot 93 U/L 7-37 Above high normal [facility] Calcium Level 8.5 mg/dL 8.5-10.1 Normal (applies to non-numeric re sults) [facility] ([facility]) Alt/SGPT 43 U/L 12-78 Normal (applies to non-numeric resul ts) [facility] ([facility]) Bilirubin,Total 3.9 mg/dL 0.2-1.0 Above high normal [facility] ([facility]) Alkaline Phosphatase 131 U/L 45-117 Above high normal [facility]) Total Protein 7.1 GM/DL 6.4-8.2 Normal (applies to non-numeric re sults) [facility] ([facility]) Albumin/Globulin Ratio 0.4 Normal (applies to non-n umeric results) [facility] Albumin 2.1 GM/DL 3.2-5.2 Below low normal [facility] ID Date Data Source [id number] 05/27/2020 01:05:00 PM EDT [facility] Name Value Range Interpretation Code Description Data Beronica rce(s) Supporting Document(s) aPTT in Platelet poor plasma by Coagulation assay 54.2 s 24.2-38.5 Above high normal [facility] ([facility]) ID Date Data Source [id number] 05/27/2020 01:05:00 PM EDT [facility] Name Value Range Interpretation Code Description Data Beronica rce(s) Supporting Document(s) Prothrombin Time 19.8 s 12.5-14.3 Above high normal [facility] Inr 1.65 Normal (applies to non-numeric resul ts) [facility] ([facility]) THERAPUTIC HUMAN INR VALUES INDICATIONS NORMAL RANGES PROPHYLAXIS/TREATMENT OF: VENOUS THROMBOSIS 2.0-3.0 PULMONARY EMBOLISM 2.0-3.0 PREVENTION OF SYSTEMIC EMBOLISM FROM: TISSUE HEART VALVES 2.0-3.0 ACUTE MYOCARDIAL INFARCTION 2.0-3.0 VALVULAR HEART DISEASE 2.0-3.0 ATRIAL FIBRILLATION 2.0-3.0 MECHANICAL VALVES(HIGH RISK) 2.5-3.5 RECURRENT MYOCARDIAL INFARCTION 2.5-3.5 ID Date Data Source [id number] 05/27/2020 01:05:00 PM EDT [facility] ([facility]) Name Value Range Interpretation Code Description Data Beronica rce(s) Supporting Document(s) White Blood Count 3.8 10 4.0-10.0 Below low normal [facility] ([facility], ) Red Blood Count 3.51 10 4.30-6.10 Below low normal [facility] ([facility]) Hemoglobin 12.1 g/dL 13.5-17.5 Below low normal [facility] ( [facility]) Hematocrit 35.7 % 42.0-52.0 Below low normal [facility] ( [facility]) Mean Corpuscular Volume 101.7 fl 80.0-96.0 Above high normal [facility] ([facility]) Mean Corpuscular Hemoglobin 34.5 pg 27.0-33.0 Above high normal [facility] ([facility]) Red Cell Distribution Width 13.2 % 11.5-14.5 Norm al (applies to non-numeric results) [facility] ([facility]) Platelet Count, Automated 181 10 150-450 Normal (applies to non-numeric results) [facility] ([facility]) Mean Corpuscular HGB Conc 33.9 g/dL 32.0-36.5 Normal (applies to non-numeric results) [facility]) Lymph % 40.3 % 24.0-44.0 Normal (applies to non-numeric resul ts) [facility]) Neutrophils % 45.5 % 36.0-66.0 Normal (applies to non-numeric re sults) [facility]) Eos % 1.3 % 0.0-3.0 Normal (applies to non-numeric resul ts) [facility]) [place]air % 11.8 % 0.0-5.0 Above high normal [facility] ([facility], ) Nucleated Red Blood Cell % 0.0 % 0-0 Normal (applies to n on-numeric results) [facility] ([facility], ) Baso % 0.8 % 0.0-1.0 Normal (applies to non-numeric resul ts) [facility] ([facility]) Immature Granulocyte % 0.3 % 0-3.0 Normal (applies to non-n umeric results) [facility] ([facility]) Neutrophils # 1.7 10 1.5-8.5 Normal (applies to non-numeric re sults) [facility] ([facility]) Adair # 0.5 10 0.0-0.8 Normal (applies to non-numeric resul ts) [facility] ([facility]) Lymph # 1.5 10 1.5-5.0 Normal (applies to non-numeric resul ts) [facility] ([facility]) Baso # 0.0 10 0.0-0.2 Normal (applies to non-numeric resul ts) [facility] ([facility]) Eos # 0.1 10 0.0-0.5 Normal (applies to non-numeric resul ts) [facility] ([facility]) ID Date Data Source [id number] 05/12/2020 03:46:39 PM EDT [facility] Name Value Range Interpretation Code Description Data Beronica rce(s) Supporting Document(s) Consultation [facility] LUGTEj6wLdXUBqNa09/HYOuaTAOzb5FsYMybNZz8BLnpTWGvN0PoZRR4uF6oYYZ1LRyUPfZwFmCdQJSj lbm [file] AgICAgICAgICAgICAgICAgICAgICAgICAgICAgICAg EIEoOGPyMFQpSKBnZTMlDZ0OIBKeYDFoEHTcXDWbBEMtQNPkJFYkEYSlRHGiESKlHABqWYQhJVKsWBVk SLGfCBFhYCBcHDHuIPBdEKTwZNAtXQBxEYZlIPKpAPIfZJPqOORyHSMgBOFnKLEkLWGcSXTgPDWwYU6T ICAgICAgICAgICAgICAgICAgICAgICAgICAgICAgIC AgICAgICAgICAgICAgICAgICAgICAgICAgICAgICAgICAgICAgICAgICAgICAgICAgICAgICAgICAgIC VzNCNzPBJwPC3HRQJnQGPuWPXtBJQkZZVqCERtTLEsHEAeDLIsWAEgPWNqMYKwKTZaGKDyJASwRJKxQU AgICAgICAgICAgICAgICAgICAgICAgICAgICAgICAg GEUmAXZiGGWfWULxRKCtZWKgMJ5QVJKdCNIhXOBnAGGmASRwZLNiVHXfMAMzWNQuMLGoCWXpVRSuIISz ICAgICAgICAgICAgICAgICAgICAgICAgICAgICAgICAgICAgICAgICAgICAgICAgICAgICAgICAgICAg VV7BIPQsEKYvDKRcMYGkZJRtOKIkJXDnHXLjKHPgYL AgICAgICAgICAgICAgICAgICAgICAgICAgICAgICAgICAgICAgICAgICAgICAgICAgICAgICAgICAgIC QbCWGkDNUhRZEzSG7CEHMpAQEsZERmUNZwEGUjPWTyLKWzMINoNXLuQURrJDErAFUsBQXtAXWgOFVnWK AgICAgICAgICAgICAgICAgICAgICAgICAgICAgICAg LURcURJwAIGvGTPoKMNvQXTvILEqKH3YVAJhAAEfLJBiYMZtNMOkVIWqEPBnYNCcBSOrAOOpFBPiKUCc ICAgICAgICAgICAgICAgICAgICAgICAgICAgICAgICAgICAgICAgICAgICAgICAgICAgICAgICAgICAg FVIpNN9KCXWkPPTySWDuQBJuBBIcKATbUTNlVQEkOO AgICAgICAgICAgICAgICAgICAgICAgICAgICAgICAgICAgICAgICAgICAgICAgICAgICAgICAgICAgIC GdFPQxFBFmLUZwROEqAZ3ONDAkHFWlQHZwPCZtCJEzQBTmXKAlDUYkRCTjKBRlFVGiLCPmZBUaCLDwRV AgICAgICAgICAgICAgICAgICAgICAgICAgICAgICAg OAReBMEhFRLeINQhZSOpJYSdXXPbSAIgHD6FHJ08bACyw7S3FRWfXL7seum/Tw9QWKurtjKjdLKmIR4Y EaPsJX1nxn8SDqIdTN2zhd6BYAgJXlXcG9W1eOPwDTQcMYZFZmJxF65uWUlsJq31YUphCDGdVeScQIe4 Rd0REoVaB1ypELOoOpP4IDOpHkV1YIBzNoF8HDPcOs ZzXXEoNWTrGTJgVDXBOHG8NMJzGpAfSsRpUJOvQTxeJLIPCS5HRfUaA6CioG39MUxKEp9+DQplbmRvYm tCVyI4TFVum5BfUOw7LQ6AECBrAscrk9IxTBIeTFRLNWdySG0YOUO6OURfUTYoYw6YLEStE906xzFeVH 4WYc1ICnUbYR6lrx9HLNFzJSHpWafQBfi4HOvhMW5Y eGWjMDuBv41mfCe0etHqxCGUWEqfySATsB2vBCyhFDFgIGYrJT1jEG0xGAVpYSIqJvE5KGXCCD1BVIXl OKYafTMsAALrKIQPDU2QQPueKRM9JCNtwbSfeDCaZXldEH8TRVMgjbRdUviqZYHBNMg+Cm0JRQ8bd2It GQd2KKVdBS1cmu3ITRlNByXjK5O0hBOxP0W8AWlgNa 0YGSNnALTwGvtwOZESIMpwIR8JGS3juvJ1FB8UpCDdLVInAIYmnAZmLEp6O97wzLLdFGikCB2OXYF+Pi A+Ie2NZHNnJTJmIMBpHsXoBSSVGbQoX4AtB3LGk9HlA1RqWA81mHfsqaDkPPiyNZ3IUW5wVNXkSDKWTP 6HaVCddD7khzIwMEUpKKJIQuAcR65xiPAxJMUuKSZ0 MSKeQu8DXEJqC5OpaaFzrLkttaCtTKOtYQAOQD3EUTslgdKsqDLvbVraBP06wXcqFG0CDm1GYbEmGN9f dz7OkSMlWq6YYFY7Yl7LEBKrKQToDQPqZPZ3MCJlPsZaUIbeEIOoKGBvUAL2XCKbBRKuXN2HUaYzHMMg BPt5WfuvRIZjXOLefh4XRUIsZMX5BSD8AIChBEPrCO ExBClnDGZrSKPzJPY8LFQsGMIpCP8EBlNaXEXrZXM5RNIzQQRkHBDflf1SOGVbPPNxFbd2RPIwPDHhSD MfQApeJTUwHEO6UmO4SZCxOTOwNU1RJpOfMOWmVLO4BmBxEEFhXOQedo4TANCkJBZxYFm6MNSiBVUxKD TgRLfxTRYmYOIoGmQzLPSmUAOrRW6TNeUhJJAwEEEb YdDyWCVfAPHlig7QHLNbLEDzVlFxKRGuCDIdLGXmEXywTNReSXC6TNLmRMGmWILwXK8IQnGoJRDuZWxe ZrEpDFJrCODwgh9KZSZlSJKyAoUwNTScJTAeWXDkEIpwSLTfNZPfAJS5GUBxALKdHF2NEgYgTCHdDpC3 URufOAKuBIBafu2VUCUsKAIaIjn6NgUoOTOvAEFuNB iyUAIfTFKzICR7RHOeCYEvAM8CPqDeDIYtWxNkCtMaCDSiCOGazd2BVMCzEUIqLwDrHSIcQTUaILRxAU obMVHlNMJeJwZ0KBUnWWWuHZ0JGiVgZEJtIiQ8GMVbLMVlTOCusx8RWLPhTATnLHV0ZMZdGFJoSYIqXJ waMVCiTUN4QlkuOAKmWCHdWY0RJqEeNPBgOiC6YZcw QYDlYOUtop7WSAQoFNKxUJjyPAGrRLQlLGXnPFrcPIFkIGJ6EEV6AVRfYEOmPS0ORwKsYDOzRwRcHZdh KNIoSNNuon4LAGDhTWT6YdD5ZRIfXDWmRDCcSDjoIZAkLCF7GDNqVKWjNJRgKE6OKfVaCABpKWkcABWa GBBjSFEhle2KDQVyAXU4CSG1GSYcAVQdIZAkLXvhBA KmCIY4FGz9YEGfHTPmVT3EOzSiNCXvSIi9KVCzVSPpEOHkml4ISAGxWTD4WNYfQRTeAPMiOVWfWIdfJW SwPUA9EQT3NIYiHZChXR3ETlBpXFHqSNPiEjxjGPXfUXUedl1VBGJfROR6PGnyOTIjFVReRDEaDSujGY SbCQRuExi9FZMhMNNlPG4AJwKnLDWvLOT3HhAuKSHk PNOwxz1QkBPfvVifzr2ZQXmCRb1MfNrkXDYfTNikBg3ivQL9CAVpXELYGh1WapWsXNLzBHOFMHtwFAAc ORP2UFCdMWsuNjIrWVW3ALO5EZNwLbMtF7GzSiB9Z7R3AwQ9IPOgUHOjJ8NyHFSuUDKnORE6KDV5LCIk OLJdXvS7Owh+JF4sANg+Yk0Jl3YvhcU4srYzNPp8DbC1RC9PGDMHV2LWPh== ID Date Data Source [id number] 05/12/2020 02:35:05 PM EDT [facility] Name Value Range Interpretation Code Description Data Beronica rce(s) Supporting Document(s) Discharge Summary [facility] UGIAJh7iVqDGIdIy35/LOWjcWUKcr8AyQMjuHXs6UMbuOSObB1PxIGU1qN4yJMF7QXdAIwYqQmThPLIh lbm AeNgsDUjFvVTYxRyaKIwLgULktRfaqgUFzEZ5ZyEI8SRWvN96nXBEnVZFmA8ArKVM2UIP+Vs2VKEXxwN SsEO0TFxnN5V3tn3w1Od9+hX3X9z1fWoOoIuyN/mpXtbbV0wb1u7pB+jSnyzj85q16ckkwvl/+JFFaaS ylk7Ro6LLHHgXJuZjzdK+WLFmI127/bH0qza4a7l+7 i3VsedgY+HvpTE2BG5am2R/NOTVV7zWqFg0p//Bzju80vos4j/VMro6aEuyCXvJBDdKSf6S8bY358Oor +J3wZi6qFf2fiRYNOp3QbIiOYgP4zd1wcxnync08QUSLuSYPqW6ZXs1bGcyxHWky4H3T+5bioQ9/eUGm t8ZSLfO4GWaGYyqCLky7mbeEPlnQYTgmCTZLDxFZlu r58MM28JbAnFcQmogDC2QDMyuidqZey8ivT2Auju9YoG4wDncF69fLWMDyiX1YWhnlWEek3wLOSrwNn6 yjt9Lk0HF/lueLQRCzauIFvBQZqwlhGM662B1jmktRxz9623R4PKamPrYgA+1e8jtez6wNPk3jGq3Ytk cLLmR/cYMgzNKqyKGySWCUP6eYcfoQKSU/Z4i/g2nK IaVz0ZT8uo5cKzNl8gLSD0VnP7d/yVAtAiAvofL394gicXQawzKl+/jWY65SM8DHSx5oiaWRS638kgcg ffsMspBDZ1sKNwhG8hEv9gR75kcxcNTi/G2vfzDuRGw8u1W/UA3h3vEmQ/kDoEQAOPskrLqr3qBdgIsS l5D4Zyni6YOXDknS/UQpeFBKh6Oeh9hwEFBLLnslDB yCGOgauSOWZamyQTqA0l8WgQUsdKRgZVfvGU+yxArvMnpYifG8tGk6QJB4G1M00VPkCbIFvrQlQK/Michelle CC3Ne+EZdz9/sJ85AQnI6Y18OiVBSAOZyhg28SJAU2/oQ6pNq3gVsW37nrJd4Zn+/OL4/FydHh/sXP52 /N28ftHWiuc7Kdi31KwIXeNaZE5iLtRSy7Hea6dGJx hNGRF4T+q26AQzWafFT0O0N2tOgm+6PUqhEClzDnFGjzBA37Cv2+iYOooYCuBltDN1wTCtC3QS4YpKzY rhIYTDeihcyiUflfVzew3JQSm+6Thwou++GPu5A4rFW8N2PHuTaAJpY0B6HmMIQRqzpnIj+WCNIwDo8S Reer++7Oal0frj8VZGYDi0cBjAhFJ8Ci+sR5DBv2FY eWH+iTFyQUYhP2QIXLdU2pZrQrpHolv103xQRaasMRD33RgEPwO0rUUxxTzWKZdNUawaZK7Hv8W0lAuW ToOPL8SF0O6cd4754fHijbR33hm9WS4Mi53ccx1pBcgkxfLcJmXtQ05fgsgkxDANJHQEgj/Marichuy/TadOA1 [file] vWYe3gB2gWVCkTVgUT5WytyAyWMgXALwICQCcscxhuGeEtcai/[facility]+tR6afbu7p4ElYWsAaSaUEI4omUC [file] wXZnHw7EUmWwDGXYLoQbXL1ODAd= ID Date Data Source [id number] 05/11/2020 12:35:16 PM [facility] Value Range Interpretation Code Description Data Beronica rce(s) Supporting Document(s) Glucose [Mass/volume] in Capillary blood by Glucometer 89 mg/dL 70- 140 [facility] ID Date Data Source [id number] 05/11/2020 08:33:06 AM [facility] Value Range Interpretation Code Description Data Beronica rce(s) Supporting Document(s) Glucose [Mass/volume] in Capillary blood by Glucometer 75 mg/dL 70- 140 [facility] ID Date Data Source [id number] 05/11/2020 04:48:45 AM [facility] Value Range Interpretation Code Description Data Beronica rce(s) Supporting Document(s) Prothrombin time (PT) 20.4 s 12.5-14.9 H [facility] INR in Platelet poor plasma by Coagulation assay 1.71 [facility] Routine intensity oral anticoagulation I NR is typically 2.0-3.0. Target INR must be clinically individualized. ID Date Data Source [id number] 05/11/2020 05:00:59 AM [facility] Value Range Interpretation Code Description Data Beronica rce(s) Supporting Document(s) Albumin [Mass/volume] in Serum or Plasma by Bromocresol green (BCG) dye binding method 2.5 g/dL 3.5-5.2 [facility] Bil[facility].total [Mass/volume] in Serum or Plasma 9.5 mg/dL <1.2 H [facility] Bilirubin.direct [Mass/volume] in Serum or Plasma 6.3 mg/dL <0.3 H [facility] Alkaline phosphatase [Enzymatic activity/volume] in Serum or Plasma 120 U/L 40-129 [facility] Aspartate aminotransferase [Enzymatic activity/volume] in Serum or Plasma 113 U/L <40 H [facility] Alanine aminotransferase [Enzymatic activity/volume] in Seru m or Plasma 59 U/L <41 H [facility] Protein [Mass/volume] in Serum or Plasma 7.3 g/dL 6.4-8.3 [facility] ID Date Data Source [id number] 05/11/2020 05:00:59 AM [facility] Name Value Range Interpretation Code Description Data Beronica rce(s) Supporting Document(s) Phosphate [Mass/volume] in Serum or Plasma 2.0 mg/dL 2.5-4.5 L [facility] ID Date Data Source [id number] 05/11/2020 05:00:59 AM [facility] Name Value Range Interpretation Code Description Data Beronica rce(s) Supporting Document(s) Magnesium [Mass/volume] in Serum or Plasma 1.9 mg/dL 1.6-2.6 [facility] ID Date Data Source [id number] 05/10/2020 11:05:42 PM [facility] Cmnt XXX-Imp : NoneMicroorganism XXX Cult : 2019 nCoV Real-Time RT-PCR: NOT DETECTEDTest performed using [employer] Respiratory Panel. This test is only for use under Food and Drug Administration's Emergency Use Authorization.Additional information is available on the following FDA websites for health care providers and patients. https://www.fda.gov/media/009140/download , https://www.fda.gov/me tin/626640/downloadPolymerase chain reaction is NEGATIVE for Influenza A H1, H3 and 2009 H1 viruses, Influenza B virus, Respiratory syncytial virus, Human metapneumovirus, Parainfluenza virus 1,2,3 and 4, Adenovirus, Rhinovirus/ Enterovirus, Coronavirus HKU1, NL63, OC43 and 229E, Bordetella pertussis, B. parapertussis, Mycoplasma pneumoniae and Chlamydia pneumoniae. Name Value Range Interpretation Code Description Data Beronica rce(s) Supporting Document(s) ID Date Data Source [id number] 05/10/2020 10:03:00 PM [facility] Cmnt XXX-Imp : NoneMicroorganism XXX Cult : 2019 nCoV Real-Time RT-PCR: NOT DETECTEDTest performed using [employer] Respiratory Panel. This test is only for use under Food and Drug Administration's Emergency Use Authorization.Additional information is available on the following FDA websites for health care providers and patients. https://www.fda.gov/media/864188/download , https://www.fda.gov/ny tin/148866/downloadPolymerase chain reaction is NEGATIVE for Influenza A H1, H3 and 2009 H1 viruses, Influenza B virus, Respiratory syncytial virus, Human metapneumovirus, Parainfluenza virus 1,2,3 and 4, Adenovirus, Rhinovirus/ Enterovirus, Coronavirus HKU1, NL63, OC43 and 229E, Bordetella pertussis, B. parapertussis, Mycoplasma pneumoniae and Chlamydia pneumoniae. Name Value Range Interpretation Code Description Data Beronica rce(s) Supporting Document(s) Microorganism identified in Unspecified specimen by [facility] This lab was ordered by [facility] and reported by [facility]. ID Date Data Source [id number] 05/10/2020 10:11:33 PM [facility] Value Range Interpretation Code Description Data Beronica rce(s) Supporting Document(s) Glucose [Mass/volume] in Capillary blood by Glucometer 138 mg/dL 70- 140 [facility] ID Date Data Source [id number] 05/10/2020 04:59:54 PM [facility] Value Range Interpretation Code Description Data Beronica rce(s) Supporting Document(s) Glucose [Mass/volume] in Capillary blood by Glucometer 150 mg/dL 70- 140 H [facility] ID Date Data Source [id number] 05/10/2020 12:19:55 PM [facility] Value Range Interpretation Code Description Data Beronica rce(s) Supporting Document(s) Glucose [Mass/volume] in Capillary blood by Glucometer 103 mg/dL 70- 140 [facility] ID Date Data Source [id number] 05/10/2020 08:24:00 AM [facility] Value Range Interpretation Code Description Data Beronica rce(s) Supporting Document(s) Glucose [Mass/volume] in Capillary blood by Glucometer 79 mg/dL - 140 [facility] ID Date Data Source [id number] 05/10/2020 04:28:28 AM [facility] Value Range Interpretation Code Description Data Beronica rce(s) Supporting Document(s) Prothrombin time (PT) 21.4 s 12.5-14.9 H [facility] INR in Platelet poor plasma by Coagulation assay 1.82 [facility] Routine intensity oral anticoagulation I NR is typically 2.0-3.0. Target INR must be clinically individualized. ID Date Data Source [id number] 05/10/2020 04:39:11 AM [facility] Value Range Interpretation Code Description Data Beronica rce(s) Supporting Document(s) Albumin [Mass/volume] in Serum or Plasma by Bromocresol green (BCG) dye binding method 2.3 g/dL 3.5-5.2 L [facility] Bilirubin.total [Mass/volume] in Serum or Plasma 10.2 mg/dL <1.2 H [facility] Bilirubin.direct [Mass/volume] in Serum or Plasma 7.3 mg/dL <0.3 H [facility] Alkaline phosphatase [Enzymatic activity/volume] in Serum or Plasma 109 U/L 40-129 [facility] Aspartate aminotransferase [Enzymatic activity/volume] in Serum or Plasma 109 U/L <40 H [facility] Alanine aminotransferase [Enzymatic activity/volume] in Seru m or Plasma 53 U/L <41 H [facility] Protein [Mass/volume] in Serum or Plasma 6.5 g/dL 6.4-8.3 [facility] ID Date Data Source [id number] 05/10/2020 04:39:11 AM [facility] Value Range Interpretation Code Description Data Beronica rce(s) Supporting Document(s) Magnesium [Mass/volume] in Serum or Plasma 1.8 mg/dL 1.6-2.6 [facility] ID Date Data Source [id number] 05/10/2020 04:39:11 AM [facility] Value Range Interpretation Code Description Data Beronica rce(s) Supporting Document(s) Phosphate [Mass/volume] in Serum or Plasma 2.7 mg/dL 2.5-4.5 [facility] ID Date Data Source [id number] 05/09/2020 09:39:53 PM [facility] Value Range Interpretation Code Description Data Beronica rce(s) Supporting Document(s) Glucose [Mass/volume] in Capillary blood by Glucometer 89 mg/dL 70- 140 [facility] ID Date Data Source [id number] 05/12/2020 07:06:04 PM EDT [facility] Name Value Range Interpretation Code Description Data Beronica rce(s) Supporting Document(s) Corticotropin [Mass/volume] in Plasma 13.7 pg/mL 7.2-63.3 [facility] (NOTE)ACTH reference interval for sample s collected between 7 and 10 AM.Performed At: RN [facility] [address] [place], [place] [id number] Aguiar MD Ph:[phone] ID Date Data Source [id number] 05/09/2020 05:17:06 PM EDT [facility] Name Value Range Interpretation Code Description Data Beronica rce(s) Supporting Document(s) Glucose [Mass/volume] in Capillary blood by Glucometer 101 mg/dL 70- 140 [facility] ID Date Data Source [id number] 05/09/2020 02:41:59 PM EDT [facility] XR CHEST FRONTAL ONLY [id number] RESULTI nterpreted by:[facility] INFORMATION: Exam: XR Chest, 1 View Exam date and time: 05/09/2020 1:44 PM Age: 49 years old Clinical indication: Alcohol dependence with withdrawal, uncomplicated; Alcoholic hepatitis without ascites; Chest pain; Type not specified; Additional info: Evaluation for fever TECHNIQUE: Imaging protocol: XR of the chest Views: 1 view. COMPARISON: CR XR CHEST FRONTAL ONLY [id number] PORTABLE 04/25/2020 5:22 AM FINDINGS: Tubes, catheters [...] rce(s) Supporting Document(s) ID Date Data Source [id number] 05/09/2020 02:53:34 PM EDT [facility] Name Value Range Interpretation Code Description Data Beronica rce(s) Supporting Document(s) Leukocytes [#/volume] in Blood by Automated count 7.1 10*3/uL 4-10 [facility] ID Date Data Source [id number] 05/14/2020 11:01:00 AM EDT [facility] Service Cmnt XXX-Imp : LEFT HANDMicroorg anism XXX Cult : No growth 5 days Name Value Range Interpretation Code Description Data Beronica rce(s) Supporting Document(s) ID Date Data Source [id number] 05/14/2020 11:01:00 AM EDT [facility] Cmnt XXX-Imp : RT HANDMicroorga nism XXX Cult : No growth 5 days Name Value Range Interpretation Code Description Data Beronica rce(s) Supporting Document(s) ID Date Data Source [id number] 05/09/2020 03:30:35 PM EDT [facility] Name Value Range Interpretation Code Description Data Beronica rce(s) Supporting Document(s) Color of Urine [facility] Clarity of Urine [facility] Specific gravity of Urine by Refractometry automated 1.008 1.003 -1.030 [facility] pH of Urine by Automated test strip 6.0 5.0-8.0 [facility] Protein [Mass/volume] in Urine by Automated test strip Neg [facility] Glucose [Mass/volume] in Urine by Automated test strip Neg [facility] Ketones [Mass/volume] in Urine by Automated test strip Neg [facility] Bilirubin.total [Presence] in Urine by Automated test strip Negative [facility] False-positive results may occur with ce rtain food additives or medications. Hemoglobin [Presence] in Urine by Automated test strip Neg ative A [facility] Leukocyte esterase [Presence] in Urine by Automated test strip Negative [facility] Nitrite [Presence] in Urine by Automated test strip Negati [facility] Leukocytes [#/area] in Urine sediment by Automated count 1 /HPF 0 -5 [facility] Erythrocytes [#/area] in Urine sediment by Automated count 1 /HPF 0-3 [facility] Service comment [facility] Bacteria [#/area] in Urine sediment by Automated count Non e [facility] Mucus [#/area] in Urine sediment by Microscopy low power field None [facility] ID Date Data Source [id number] 05/09/2020 12:29:24 PM [facility] Value Range Interpretation Code Description Data Beronica rce(s) Supporting Document(s) Glucose [Mass/volume] in Capillary blood by Glucometer 76 mg/dL 70- 140 [facility] ID Date Data Source [id number] 05/09/2020 10:33:47 AM [facility] Value Range Interpretation Code Description Data Beronica rce(s) Supporting Document(s) Cortisol [Mass/volume] in Serum or Plasma 5.8 ug/dL [facility] Ref range for 6-10 am samples: 6.0-18.4 ug/dLRef range for 4-8 pm samples: 2.7- 10.5 ug/dLRef range not established for other times. ID Date Data Source [id number] 05/09/2020 08:35:41 AM [facility] Value Range Interpretation Code Description Data Beronica rce(s) Supporting Document(s) Glucose [Mass/volume] in Capillary blood by Glucometer 73 mg/dL 70- 140 [facility] ID Date Data Source [id number] 05/09/2020 05:00:14 AM [facility] Value Range Interpretation Code Description Data Beronica rce(s) Supporting Document(s) Prothrombin time (PT) 20.6 s 12.5-14.9 H [facility] INR in Platelet poor plasma by Coagulation assay 1.74 [facility] Routine intensity oral anticoagulation I NR is typically 2.0-3.0. Target INR must be clinically individualized. ID Date Data Source [id number] 05/09/2020 05:22:16 AM [facility] Value Range Interpretation Code Description Data Beronica rce(s) Supporting Document(s) Phosphate [Mass/volume] in Serum or Plasma 3.2 mg/dL 2.5-4.5 [facility] ID Date Data Source [id number] 05/09/2020 05:22:16 AM [facility] Value Range Interpretation Code Description Data Beronica rce(s) Supporting Document(s) Cortisol [Mass/volume] in Serum or Plasma 2.9 ug/dL [facility] Ref range for 6-10 am samples: 6.0-18.4 ug/dLRef range for 4-8 pm samples: 2.7- 10.5 ug/dLRef range not established for other times. ID Date Data Source [id number] 05/09/2020 05:22:16 AM [facility] Value Range Interpretation Code Description Data Beroncia rce(s) Supporting Document(s) Albumin [Mass/volume] in Serum or Plasma by Bromocresol green (BCG) dye binding method 2.4 g/dL 3.5-5.2 L [facility] Bilirubin.total [Mass/volume] in Serum or Plasma 11.7 mg/dL <1.2 H [facility] Bilirubin.direct [Mass/volume] in Serum or Plasma 8.4 mg/dL <0.3 H [facility] Alkaline phosphatase [Enzymatic activity/volume] in Serum or Plasma 117 U/L 40-129 [facility] Aspartate aminotransferase [Enzymatic activity/volume] in Serum or Plasma 111 U/L <40 H [facility] Alanine aminotransferase [Enzymatic activity/volume] in Seru m or Plasma 55 U/L <41 H [facility] Protein [Mass/volume] in Serum or Plasma 6.5 g/dL 6.4-8.3 [facility] ID Date Data Source [id number] 05/09/2020 05:22:16 AM [facility] Value Range Interpretation Code Description Data Beronica rce(s) Supporting Document(s) Magnesium [Mass/volume] in Serum or Plasma 1.6 mg/dL 1.6-2.6 [facility] ID Date Data Source [id number] 05/08/2020 10:13:14 PM [facility] Value Range Interpretation Code Description Data Beronica rce(s) Supporting Document(s) Glucose [Mass/volume] in Capillary blood by Glucometer 101 mg/dL 70- 140 [facility] ID Date Data Source [id number] 05/08/2020 05:11:07 PM [facility] Value Range Interpretation Code Description Data Beronica rce(s) Supporting Document(s) Glucose [Mass/volume] in Capillary blood by Glucometer 90 mg/dL 70- 140 [facility] ID Date Data Source [id number] 05/08/2020 12:44:26 PM [facility] Value Range Interpretation Code Description Data Beronica rce(s) Supporting Document(s) Glucose [Mass/volume] in Capillary blood by Glucometer 104 mg/dL 70- 140 [facility] ID Date Data Source [id number] 05/14/2020 05:06:17 PM [facility] Value Range Interpretation Code Description Data Beronica rce(s) Supporting Document(s) Glucagon [Mass/volume] in Serum or Plasma 125 pg/mL 50-150 [facility] (NOTE)Results of this test are labeled f or research purposes only by theassay's mud car worker. The performance characteristics of this assayhave not been established by the mud car worker. The result shouldnot be used for treatment or for diagnostic purposes withoutconfirmation of the diagnosis by another medically establisheddiagnostic product or procedure. The performance characteristics weredetermined by DIY.Performed At: [address] [id number] Brown MD Ph:[phone] ID Date Data Source [id number] 05/12/2020 09:10:10 AM [facility] Value Range Interpretation Code Description Data Beronica rce(s) Supporting Document(s) C peptide [Mass/volume] in Serum or Plasma 4.7 ng/mL 0.8-5.2 [facility] ID Date Data Source [id number] 05/16/2020 01:06:15 PM [facility] Value Range Interpretation Code Description Data Beronica rce(s) Supporting Document(s) Insulin Ab [Units/volume] in Serum 13 uU/mL [facility] (NOTE)This test is also known as insulin autoantibody or IAA.This test was developed and its performance characteristicsdetermined by DIY. It has not been cleared or approvedby the Food and Drug Administration.Reference Range:<5.0 Negative> or = 5.0 PositivePerformed At: [facility] [id number] [place], [place] [id number] Dang MD Ph:[phone] ID Date Data Source [id number] 05/08/2020 10:59:11 AM [facility] Value Range Interpretation Code Description Data Beronica rce(s) Supporting Document(s) Leukocytes [#/volume] in Blood by Automated count 7.2 10*3/uL 4-10 [facility] Erythrocytes [#/volume] in Blood by Automated count 2.77 10*6/uL 4.6- 6.1 L [facility] Hemoglobin [Mass/volume] in Blood 10.1 g/dL 13.5-18 L [facility] Hematocrit [Volume Fraction] of Blood by Automated count 29.4 % 4 1-53 L [facility] Erythrocyte mean corpuscular volume [Entitic volume] b y Automated count 106.0 fL 80-96 H [facility] Erythrocyte mean corpuscular hemoglobin [Entitic mass] by Automated count 36.4 pg 27-33 H [facility] Erythrocyte mean corpuscular hemoglobin concentration [Mass/volume] by Automated count 34.3 g/dL 32.0-36.0 [facility] E[facility]th[facility] distribution width [Ratio] by Automated count 15.5 % 11.5-14.5 H [facility] Platelets [#/volume] in Blood by Automated count 98 10*3/uL 150-400 L [facility] ID Date Data Source [id number] 05/08/2020 11:19:32 AM [facility] Name Value Range Interpretation Code Description Data Beronica rce(s) Supporting Document(s) Beta hydroxybutyrate [Moles/volume] in Serum or Plasma 0.09 mmol/L <0 .60 [facility] (NOTE) <0.60 Normal 0.60-1.50 May indicate the development of a problem >1.50 At risk for DKA ID Date Data Source [id number] 05/08/2020 11:19:32 AM [facility] Value Range Interpretation Code Description Data Beronica rce(s) Supporting Document(s) Bicarbonate [Moles/volume] in Serum 22 mmol/L 22-29 [facility] Chloride [Moles/volume] in Serum or Plasma 99 mmol/L 98-107 [facility] Creatinine [Mass/volume] in Serum or Plasma 0.44 mg/dL 0.70-1.20 [facility] IctericConfirmed Glucose [Mass/volume] in Serum or Plasma 105 mg/dL 70-140 [facility] Potassium [Moles/volume] in Serum or Plasma 3.7 mmol/L 3.4-5.1 [facility] Sodium [Moles/volume] in Serum or Plasma 129 mmol/L 136-145 [facility] Urea nitrogen [Mass/volume] in Serum or Plasma 6 mg/dL 6-20 [facility] Anion gap 3 in Serum or Plasma 9 mmol/L 8-15 [facility] Osmolality of Serum or Plasma by calculation 266 mosm/kg 275-300 L [facility] Creatinine/Urea nitrogen [Mass Ratio] in Serum or Plasma 14 [facility] Calcium [Mass/volume] in Serum or Plasma 7.9 mg/dL 8.6-10.0 L [facility] Glomerular filtration rate/1.73 sq M pre dicted among non-blacks [Volume Rate/Area] in Serum or Plasma by Creatinine-based formula (MDRD) >6 0 [facility] Glomerular filtration rate/1.73 sq M pre dicted among blacks [Volume Rate/Area] in Serum or Plasma by Creatinine-based formula (MDRD) >60 [facility] ID Date Data Source [id number] 05/08/2020 08:49:11 AM [facility] Name Value Range Interpretation Code Description Data Beronica rce(s) Supporting Document(s) Glucose [Mass/volume] in Capillary blood by Glucometer 70 mg/dL 70- 140 [facility] ID Date Data Source [id number] 05/08/2020 05:57:47 AM [facility] Value Range Interpretation Code Description Data Beronica rce(s) Supporting Document(s) Prothrombin time (PT) 21.5 s 12.5-14.9 H [facility] INR in Platelet poor plasma by Coagulation assay 1.83 [facility] Routine intensity oral anticoagulation I NR is typically 2.0-3.0. Target INR must be clinically individualized. ID Date Data Source [id number] 05/08/2020 05:59:51 AM [facility] Value Range Interpretation Code Description Data Beronica rce(s) Supporting Document(s) Albumin [Mass/volume] in Serum or Plasma by Bromocresol green (BCG) dye binding method 2.2 g/dL 3.5-5.2 L [facility] Bilirubin.total [Mass/volume] in Serum or Plasma 12.9 mg/dL <1.2 H [facility] Bilirubin.direct [Mass/volume] in Serum or Plasma 9.0 mg/dL <0.3 H [facility] Alkaline phosphatase [Enzymatic activity/volume] in Serum or Plasma 115 U/L 40-129 [facility] Aspartate aminotransferase [Enzymatic activity/volume] in Serum or Plasma 111 U/L <40 H [facility] Alanine aminotransferase [Enzymatic activity/volume] in Seru m or Plasma 57 U/L <41 H [facility] Protein [Mass/volume] in Serum or Plasma 6.6 g/dL 6.4-8.3 [facility] ID Date Data Source [id number] 05/08/2020 05:59:51 AM [facility] Name Value Range Interpretation Code Description Data Beronica rce(s) Supporting Document(s) Magnesium [Mass/volume] in Serum or Plasma 1.6 mg/dL 1.6-2.6 [facility] ID Date Data Source [id number] 05/08/2020 05:59:51 AM [facility] Name Value Range Interpretation Code Description Data Beronica rce(s) Supporting Document(s) Phosphate [Mass/volume] in Serum or Plasma 2.9 mg/dL 2.5-4.5 [facility] ID Date Data Source [id number] 05/08/2020 05:59:21 AM [facility] Name Value Range Interpretation Code Description Data Beronica rce(s) Supporting Document(s) Hemoglobin A1c/Hemoglobin.total in Blood by HPLC 4.2 % 4.0-6.0 [facility] Glucose mean value [Mass/volume] in Blood Estimated fr glycated hemoglobin 74 mg/dL <126 [facility] ID Date Data Source [id number] 05/07/2020 10:43:12 PM [facility] [address] ABDOMEN PELVIS WITH CONTRAST [id number] AL RESULTInterpreted by:DANDRE MerinoROCEDURE INFORMATION: Exam: CT [...] rce(s) Supporting Document(s) ID Date Data Source [id number] 05/08/2020 12:02:31 AM [facility] Cmnt XXX-Imp : NoneMicroorganism XXX Cult : 2019 nCoV Real-Time RT-PCR: NOT DETECTEDTest performed using [employer] [facility] Panel. This test is only for use under Food and Drug Administration's Emergency Use Authorization.Additional information is available on the following FDA websites for health care providers and patients. https://www.fda.gov/media/260342/download , https://www.fda.gov/ny tin/979401/downloadPolymerase chain reaction is NEGATIVE for Influenza A H1, H3 and 2009 H1 viruses, Influenza B virus, Respiratory syncytial virus, Human metapneumovirus, Parainfluenza virus 1,2,3 and 4, Adenovirus, Rhinovirus/ Enterovirus, Coronavirus HKU1, NL63, OC43 and 229E, Bordetella pertussis, B. parapertussis, Mycoplasma pneumoniae and Chlamydia pneumoniae. Name Value Range Interpretation Code Description Data Beronica rce(s) Supporting Document(s) ID Date Data Source [id number] 05/07/2020 10:39:00 PM [facility] Service Cmnt XXX-Imp : NoneMicroorganism XXX Cult : 2019 nCoV Real-Time RT-PCR: NOT DETECTEDTest performed using [facility]. This test is only for use under Food and Drug Administration's Emergency Use Authorization.Additional information is available on the following FDA websites for health care providers and patients. https://www.fda.gov/media/971393/download , https://www.fda.gov/ny tin/800641/downloadPolymerase chain reaction is NEGATIVE for Influenza A H1, H3 and 2009 H1 viruses, Influenza B virus, Respiratory syncytial virus, Human metapneumovirus, Parainfluenza virus 1,2,3 and 4, Adenovirus, Rhinovirus/ Enterovirus, Coronavirus HKU1, NL63, OC43 and 229E, Bordetella pertussis, B. parapertussis, Mycoplasma pneumoniae and Chlamydia pneumoniae. Name Value Range Interpretation Code Description Data Beronica rce(s) Supporting Document(s) Microorganism identified in Unspecified specimen by [facility] This lab was ordered by [facility] and reported by [facility]. ID Date Data Source [id number] 05/07/2020 09:34:33 PM [facility] Name Value Range Interpretation Code Description Data Beronica rce(s) Supporting Document(s) Glucose [Mass/volume] in Capillary blood by Glucometer 89 mg/dL 70- 140 [facility] ID Date Data Source [id number] 05/07/2020 05:08:17 PM [facility] Value Range Interpretation Code Description Data Beronica rce(s) Supporting Document(s) Glucose [Mass/volume] in Capillary blood by Glucometer 103 mg/dL 70- 140 [facility] ID Date Data Source [id number] 05/07/2020 04:21:43 PM [facility] HEPATOBILIARY IMAGING HIDA [id number] RESULTInterpreted by:Radu Castaneda, Christine Ignacio MDINDICATION: Evaluate [...] rce(s) Supporting Document(s) ID Date Data Source [id number] 05/07/2020 12:22:34 PM [facility] Value Range Interpretation Code Description Data Beronica rce(s) Supporting Document(s) Glucose [Mass/volume] in Capillary blood by Glucometer 79 mg/dL 70- 140 [facility] ID Date Data Source [id number] 05/07/2020 08:19:42 AM [facility] Value Range Interpretation Code Description Data Beronica rce(s) Supporting Document(s) Glucose [Mass/volume] in Capillary blood by Glucometer 74 mg/dL 70- 140 [facility] ID Date Data Source [id number] 05/07/2020 08:19:37 AM [facility] Value Range Interpretation Code Description Data Beronica rce(s) Supporting Document(s) Glucose [Mass/volume] in Capillary blood by Glucometer 35 mg/dL 70- 140 [facility] ID Date Data Source [id number] 05/07/2020 08:34:45 AM EDT [facility] Name Value Range Interpretation Code Description Data Beronica rce(s) Supporting Document(s) Bicarbonate [Moles/volume] in Serum 23 mmol/L 22-29 [facility] Chloride [Moles/volume] in Serum or Plasma 100 mmol/L 98-107 [facility] Creatinine [Mass/volume] in Serum or Plasma 0.38 mg/dL 0.70-1.20 L [facility] Icteric Glucose [Mass/volume] in Serum or Plasma 89 mg/dL 70-140 [facility] Potassium [Moles/volume] in Serum or Plasma 4.2 mmol/L 3.4-5.1 [facility] Sodium [Moles/volume] in Serum or Plasma 132 mmol/L 136-145 L [facility] Urea nitrogen [Mass/volume] in Serum or Plasma 6 mg/dL 6-20 [facility] Anion gap 3 in Serum or Plasma 9 mmol/L 8-15 [facility] Osmolality of Serum or Plasma by calculation 271 mosm/kg 275-300 L [facility] Creatinine/Urea nitrogen [Mass Ratio] in Serum or Plasma 16 [facility] Calcium [Mass/volume] in Serum or Plasma 8.0 mg/dL 8.6-10.0 [facility] Glomerular filtration rate/1.73 sq M pre dicted among non-blacks [Volume Rate/Area] in Serum or Plasma by Creatinine-based formula (MDRD) >6 0 [facility] Glomerular filtration rate/1.73 sq M pre dicted among blacks [Volume Rate/Area] in Serum or Plasma by Creatinine-based formula (MDRD) >60 [facility] ID Date Data Source [id number] 05/07/2020 04:56:00 AM [facility] Value Range Interpretation Code Description Data Beronica rce(s) Supporting Document(s) Leukocytes [#/volume] in Blood by Automated count 6.7 10*3/uL 4-10 [facility] Erythrocytes [#/volume] in Blood by Automated count 2.77 10*6/uL 4.6- 6.1 [facility] Hemoglobin [Mass/volume] in Blood 10.1 g/dL 13.5-18 L [facility] Hematocrit [Volume Fraction] of Blood by Automated count 29.6 % 4 1-53 L [facility] Erythrocyte mean corpuscular volume [Entitic volume] b y Automated count 106.8 fL 80-96 H [facility] Erythrocyte mean corpuscular hemoglobin [Entitic mass] by Automated count 36.5 pg 27-33 H [facility] Erythrocyte mean corpuscular hemoglobin concentration [Mass/volume] by Automated count 34.2 g/dL 32.0-36.0 [facility] Erythrocyte distribution width [Ratio] by Automated count 15.8 % 11.5-14.5 H [facility] Platelets [#/volume] in Blood by Automated count 89 10*3/uL 150-400 L [facility] ID Date Data Source [id number] 05/07/2020 05:08:11 AM [facility] Value Range Interpretation Code Description Data Beronica rce(s) Supporting Document(s) Prothrombin time (PT) 23.2 s 12.5-14.9 H [facility] INR in Platelet poor plasma by Coagulation assay 2.02 [facility] Routine intensity oral anticoagulation I NR is typically 2.0-3.0. Target INR must be clinically individualized. ID Date Data Source [id number] 05/07/2020 05:23:08 AM [facility] Value Range Interpretation Code Description Data Beronica rce(s) Supporting Document(s) Albumin [Mass/volume] in Serum or Plasma by Bromocresol green (BCG) dye binding method 2.1 g/dL 3.5-5.2 L [facility] Bilirubin.total [Mass/volume] in Serum or Plasma 12.0 mg/dL <1.2 H [facility] Bilirubin.direct [Mass/volume] in Serum or Plasma 8.3 mg/dL <0.3 H [facility] Alkaline phosphatase [Enzymatic activity/volume] in Serum or Plasma 118 U/L 40-129 [facility] Aspartate aminotransferase [Enzymatic activity/volume] in Serum or Plasma 109 U/L <40 [facility] Alanine aminotransferase [Enzymatic activity/volume] in Seru m or Plasma 57 U/L <41 [facility] Protein [Mass/volume] in Serum or Plasma 6.4 g/dL 6.4-8.3 [facility] ID Date Data Source [id number] 05/07/2020 05:23:08 AM [facility] Value Range Interpretation Code Description Data Beronica rce(s) Supporting Document(s) Magnesium [Mass/volume] in Serum or Plasma 1.5 mg/dL 1.6-2.6 L [facility] ID Date Data Source [id number] 05/07/2020 [facility]:23[facility] Value Range Interpretation Code Description Data Beronica rce(s) Supporting Document(s) Phosphate [Mass/volume] in Serum or Plasma 2.6 mg/dL 2.5-4.5 [facility] ID Date Data Source [id number] 05/06/2020 09:32:24 PM [facility] Name Value Range Interpretation Code Description Data Beronica rce(s) Supporting Document(s) Glucose [Mass/volume] in Capillary blood by Glucometer 94 mg/dL 70- 140 [facility] ID Date Data Source [id number] 05/06/2020 05:49:[address] [facility] [address] HEAD WITHOUT CONTRAST [id number] RESU LTInterpreted by:DANDRE MckeonROCEDURE INFORMATION: Exam: CT [...] rce(s) Supporting Document(s) ID Date Data Source [id number] 05/06/2020 05:14:03 PM [facility] Name Value Range Interpretation Code Description Data Beronica rce(s) Supporting Document(s) Glucose [Mass/volume] in Capillary blood by Glucometer 98 mg/dL 70- 140 [facility] ID Date Data Source [id number] 05/06/2020 03:53:52 PM EDT [facility] Name Value Range Interpretation Code Description Data Beronica rce(s) Supporting Document(s) Glucose [Mass/volume] in Capillary blood by Glucometer 83 mg/dL 70- 140 [facility] ID Date Data Source [id number] 05/06/2020 03:42:36 PM EDT [facility] US ABDOMEN LIMITED [id number] RESULTInte rpreted by:Kevin Walker [facility]:49-year-old male with hyperbilirubinemia and transaminitis, who [...] of normal measuring 2.6 mm. There is [id number] gallbladder sludge and mobile gallstones layering dependently [...] rce(s) Supporting Document(s) ID Date Data Source [id number] 05/06/2020 01:42:46 PM [facility] Value Range Interpretation Code Description Data Beronica rce(s) Supporting Document(s) Leukocytes [#/volume] in Blood by Automated count 6.7 10*3/uL 4-10 [facility] Erythrocytes [#/volume] in Blood by Automated count 2.85 10*6/uL 4.6- 6.1 L [facility] Hemoglobin [Mass/volume] in Blood 10.4 g/dL 13.5-18 L [facility] Hematocrit [Volume Fraction] of Blood by Automated count 30.3 % 4 1-53 [facility] Erythrocyte mean corpuscular volume [Entitic volume] b y Automated count 106.1 fL 80-96 [facility] Erythrocyte mean corpuscular hemoglobin [Entitic mass] by Automated count 36.4 pg 27-33 [facility] Erythrocyte mean corpuscular hemoglobin concentration [Mass/volume] by Automated count 34.3 g/dL 32.0-36.0 [facility] width [Ratio] by Automated count 15.7 % 11.5-14.5 [facility] Platelets [#/volume] in Blood by Automated count 87 10*3/uL 150-400 [facility] ID Date Data Source [id number] 05/06/2020 12:33:22 PM [facility] Value Range Interpretation Code Description Data Beronica rce(s) Supporting Document(s) Glucose [Mass/volume] in Capillary blood by Glucometer 96 mg/dL 70- 140 [facility] ID Date Data Source [id number] 05/06/2020 08:34:21 AM [facility] Value Range Interpretation Code Description Data Beronica rce(s) Supporting Document(s) Glucose [Mass/volume] in Capillary blood by Glucometer 90 mg/dL 70- 140 [facility] ID Date Data Source [id number] 05/06/2020 05:30:17 AM [facility] Name Value Range Interpretation Code Description Data Beronica rce(s) Supporting Document(s) Bicarbonate [Moles/volume] in Serum 23 mmol/L 22-29 [facility] Chloride [Moles/volume] in Serum or Plasma 100 mmol/L 98-107 [facility] Creatinine [Mass/volume] in Serum or Plasma 0.34 mg/dL 0.70-1.20 L [facility] Icteric Glucose [Mass/volume] in Serum or Plasma 115 mg/dL 70-140 [facility] Potassium [Moles/volume] in Serum or Plasma 4.2 mmol/L 3.4-5.1 [facility] Sodium [Moles/volume] in Serum or Plasma 133 mmol/L 136-145 L [facility] Urea nitrogen [Mass/volume] in Serum or Plasma 7 mg/dL 6-20 [facility] Anion gap 3 in Serum or Plasma 9 mmol/L 8-15 [facility] Osmolality of Serum or Plasma by calculation 275 mosm/kg 275-300 [facility] Creatinine/Urea nitrogen [Mass Ratio] in Serum or Plasma 21 [facility] Calcium [Mass/volume] in Serum or Plasma 8.3 mg/dL 8.6-10.0 L [facility] Glomerular filtration rate/1.73 sq M pre dicted among non-blacks [Volume Rate/Area] in Serum or Plasma by Creatinine-based formula (MDRD) >6 0 [facility] Glomerular filtration rate/1.73 sq M pre dicted among blacks [Volume Rate/Area] in Serum or Plasma by Creatinine-based formula (MDRD) >60 [facility] ID Date Data Source [id number] 05/06/2020 05:30:17 AM [facility] Value Range Interpretation Code Description Data Beronica rce(s) Supporting Document(s) Magnesium [Mass/volume] in Serum or Plasma 1.6 mg/dL 1.6-2.6 [facility] ID Date Data Source [id number] 05/06/2020 05:30:17 AM [facility] Value Range Interpretation Code Description Data Beronica rce(s) Supporting Document(s) Phosphate [Mass/volume] in Serum or Plasma 3.0 mg/dL 2.5-4.5 [facility] ID Date Data Source [id number] 05/06/2020 05:46:24 AM [facility] Value Range Interpretation Code Description Data Beronica rce(s) Supporting Document(s) Prothrombin time (PT) 21.9 s 12.5-14.9 H [facility] INR in Platelet poor plasma by Coagulation assay 1.87 [facility] Routine intensity oral anticoagulation I NR is typically 2.0-3.0. Target INR must be clinically individualized. ID Date Data Source [id number] 05/06/2020 08:58:07 AM [facility] Value Range Interpretation Code Description Data Beronica rce(s) Supporting Document(s) Albumin [Mass/volume] in Serum or Plasma by Bromocresol green (BCG) dye binding method 2.6 g/dL 3.5-5.2 L [facility] Bilirubin.total [Mass/volume] in Serum or Plasma 13.4 mg/dL <1.2 H [facility] Bilirubin.direct [Mass/volume] in Serum or Plasma 9.0 mg/dL <0.3 H [facility] Alkaline phosphatase [Enzymatic activity/volume] in Serum or Plasma 127 U/L 40-129 [facility] Aspartate aminotransferase [Enzymatic activity/volume] in Serum or Plasma 113 U/L <40 H [facility] Alanine aminotransferase [Enzymatic activity/volume] in Seru m or Plasma 62 U/L <41 H [facility] Protein [Mass/volume] in Serum or Plasma 6.9 g/dL 6.4-8.3 [facility] ID Date Data Source [id number] 05/06/2020 04:35:51 AM [facility] Value Range Interpretation Code Description Data Beronica rce(s) Supporting Document(s) Glucose [Mass/volume] in Capillary blood by Glucometer 77 mg/dL 70- 140 [facility] ID Date Data Source [id number] 05/05/2020 09:08:04 PM [facility] Value Range Interpretation Code Description Data Beronica rce(s) Supporting Document(s) Glucose [Mass/volume] in Capillary blood by Glucometer 140 mg/dL 70- 140 [facility] ID Date Data Source [id number] 05/05/2020 08:14:52 PM [facility] Value Range Interpretation Code Description Data Beronica rce(s) Supporting Document(s) Glucose [Mass/volume] in Capillary blood by Glucometer 103 mg/dL 70- 140 [facility] ID Date Data Source [id number] 05/05/2020 06:49:59 PM [facility] Name Value Range Interpretation Code Description Data Beronica rce(s) Supporting Document(s) Glucose [Mass/volume] in Capillary blood by Glucometer 108 mg/dL 70- 140 [facility] ID Date Data Source [id number] 05/05/2020 08:10:19 PM [facility] Cmnt XXX-Imp : NoneMicroorganism XXX Cult : 2019 nCoV Real-Time RT-PCR: NOT DETECTEDTest performed using [employer] [facility] Panel. This test is only for use under Food and Drug Administration's Emergency Use Authorization.Additional information is available on the following FDA websites for health care providers and patients. https://www.fda.gov/media/099505/download , https://www.[employer] Oy.gov/ny tin/557109/downloadPolymerase chain reaction is NEGATIVE for Influenza A H1, H3 and 2009 H1 viruses, Influenza B virus, Respiratory syncytial virus, Human metapneumovirus, Parainfluenza virus 1,2,3 and 4, Adenovirus, Rhinovirus/ Enterovirus, Coronavirus HKU1, NL63, OC43 and 229E, Bordetella pertussis, B. parapertussis, Mycoplasma pneumoniae and Chlamydia pneumoniae. Name Value Range Interpretation Code Description Data Beronica rce(s) Supporting Document(s) ID Date Data Source [id number] 05/05/2020 06:19:00 PM [facility] Cmnt XXX-Imp : NoneMicroorganism XXX Cult : 2019 nCoV Real-Time RT-PCR: NOT DETECTEDTest performed using [employer] [facility] Panel. This test is only for use under Food and Drug Administration's Emergency Use Authorization.Additional information is available on the following FDA websites for health care providers and patients. https://www.fda.gov/media/496832/download , https://www.fda.gov/me tin/514194/downloadPolymerase chain reaction is NEGATIVE for Influenza A H1, H3 and 2009 H1 viruses, Influenza B virus, Respiratory syncytial virus, Human metapneumovirus, Parainfluenza virus 1,2,3 and 4, Adenovirus, Rhinovirus/ Enterovirus, Coronavirus HKU1, NL63, OC43 and 229E, Bordetella pertussis, B. parapertussis, Mycoplasma pneumoniae and Chlamydia pneumoniae. Name Value Range Interpretation Code Description Data Beronica rce(s) Supporting Document(s) Microorganism identified in Unspecified specimen by [facility] This lab was ordered by [facility] and reported by [facility]. ID Date Data Source [id number] 05/05/2020 05:34:13 PM [facility] Value Range Interpretation Code Description Data Beronica rce(s) Supporting Document(s) Glucose [Mass/volume] in Capillary blood by Glucometer 85 mg/dL 70- 140 [facility] ID Date Data Source [id number] 05/05/2020 05:06:49 PM [facility] Value Range Interpretation Code Description Data Beronica rce(s) Supporting Document(s) Glucose [Mass/volume] in Capillary blood by Glucometer 69 mg/dL 70- [address] [facility] ID Date Data Source [id number] 05/05/2020 05:06:49 PM [facility] Value Range Interpretation Code Description Data Beronica rce(s) Supporting Document(s) Glucose [Mass/volume] in Capillary blood by Glucometer 61 mg/dL 70- [address] [facility] ID Date Data Source [id number] 05/05/2020 12:19:26 PM [facility] Value Range Interpretation Code Description Data Beronica rce(s) Supporting Document(s) Glucose [Mass/volume] in Capillary blood by Glucometer 72 mg/dL 70- 140 [facility] ID Date Data Source [id number] 05/05/2020 09:42:42 AM [facility] Value Range Interpretation Code Description Data Beronica rce(s) Supporting Document(s) Albumin [Mass/volume] in Serum or Plasma by Bromocresol green (BCG) dye binding method 2.6 g/dL 3.5-5.2 [facility] Bil[facility].total [Mass/volume] in Serum or Plasma 13.2 mg/dL <1.2 H [facility] Calcium [Mass/volume] in Serum or Plasma 8.3 mg/dL 8.6-10.0 L [facility] Chloride [Moles/volume] in Serum or Plasma 95 mmol/L 98-107 L [facility] Creatinine [Mass/volume] in Serum or Plasma 0.40 mg/dL 0.70-1.20 L [facility] Icteric Glucose [Mass/volume] in Serum or Plasma 125 mg/dL 70-140 [facility] Alkaline phosphatase [Enzymatic activity/volume] in Serum or Plasma 134 U/L 40-129 H [facility] Potassium [Moles/volume] in Serum or Plasma 3.0 mmol/L 3.4-5.1 L [facility] Protein [Mass/volume] in Serum or Plasma 7.0 g/dL 6.4-8.3 [facility] Sodium [Moles/volume] in Serum or Plasma 129 mmol/L 136-145 L [facility] Aspartate aminotransferase [Enzymatic activity/volume] in Serum or Plasma 108 U/L <40 H [facility] Urea nitrogen [Mass/volume] in Serum or Plasma 7 mg/dL 6-20 [facility] Osmolality of Serum or Plasma by calculation 268 mosm/kg 275-300 L [facility] Creatinine/Urea nitrogen [Mass Ratio] in Serum or Plasma 18 [facility] Bicarbonate [Moles/volume] in Serum 24 mmol/L 22-29 [facility] Alanine aminotransferase [Enzymatic activity/volume] in Seru m or Plasma 59 U/L <41 H [facility] Anion gap 3 in Serum or Plasma 10 mmol/L 8-15 [facility] Glomerular filtration rate/1.73 sq M pre dicted among non-blacks [Volume Rate/Area] in Serum or Plasma by Creatinine-based formula (MDRD) >6 0 [facility] Glomerular filtration rate/1.73 sq M pre dicted among blacks [Volume Rate/Area] in Serum or Plasma by Creatinine-based formula (MDRD) >60 [facility] ID Date Data Source [id number] 05/05/2020 09:42:42 AM [facility] Name Value Range Interpretation Code Description Data Beronica rce(s) Supporting Document(s) Magnesium [Mass/volume] in Serum or Plasma 1.5 mg/dL 1.6-2.6 [facility] ID Date Data Source [id number] 05/05/2020 09:42:42 AM [facility] Value Range Interpretation Code Description Data Beronica rce(s) Supporting Document(s) Phosphate [Mass/volume] in Serum or Plasma 3.0 mg/dL 2.5-4.5 [facility] ID Date Data Source [id number] 05/05/2020 08:38:21 AM [facility] Value Range Interpretation Code Description Data Beronica rce(s) Supporting Document(s) Glucose [Mass/volume] in Capillary blood by Glucometer 113 mg/dL 70- 140 [facility] ID Date Data Source [id number] 05/05/2020 06:22:21 AM [facility] Value Range Interpretation Code Description Data Beronica rce(s) Supporting Document(s) Glucose [Mass/volume] in Capillary blood by Glucometer 83 mg/dL 70- 140 [facility] ID Date Data Source [id number] 05/05/2020 05:30:59 AM [facility] Value Range Interpretation Code Description Data Beronica rce(s) Supporting Document(s) Prothrombin time (PT) 22.8 s 12.5-14.9 H [facility] INR in Platelet poor plasma by Coagulation assay 1.97 [facility] Routine intensity oral anticoagulation I NR is typically 2.0-3.0. Target INR must be clinically individualized. ID Date Data Source [id number] 05/04/2020 11:32:14 PM [facility] Value Range Interpretation Code Description Data Beronica rce(s) Supporting Document(s) Glucose [Mass/volume] in Capillary blood by Glucometer 124 mg/dL - 140 [facility] ID Date Data Source [id number] 05/04/2020 10:09:05 PM [facility] Value Range Interpretation Code Description Data Beronica rce(s) Supporting Document(s) Glucose [Mass/volume] in Capillary blood by Glucometer 111 mg/dL 70- 140 [facility] ID Date Data Source [id number] 05/04/2020 09:28:13 PM [facility] Value Range Interpretation Code Description Data Beronica rce(s) Supporting Document(s) Glucose [Mass/volume] in Capillary blood by Glucometer 103 mg/dL - 140 [facility] ID Date Data Source [id number] 05/04/2020 09:12:18 PM [facility] Value Range Interpretation Code Description Data Beronica rce(s) Supporting Document(s) Glucose [Mass/volume] in Capillary blood by Glucometer 66 mg/dL 70- [address] [facility] ID Date Data Source [id number] 05/04/2020 09:12:13 PM [facility] Name Value Range Interpretation Code Description Data Beronica rce(s) Supporting Document(s) Glucose [Mass/volume] in Capillary blood by Glucometer 64 mg/dL 70- 140 L [facility] ID Date Data Source [id number] 05/04/2020 04:55:44 PM [facility] Value Range Interpretation Code Description Data Beronica rce(s) Supporting Document(s) Glucose [Mass/volume] in Capillary blood by Glucometer 95 mg/dL 70- 140 [facility] ID Date Data Source [id number] 05/04/2020 12:29:03 PM [facility] Value Range Interpretation Code Description Data Beronica rce(s) Supporting Document(s) Glucose [Mass/volume] in Capillary blood by Glucometer 95 mg/dL 70- 140 [facility] ID Date Data Source [id number] 05/04/2020 10:28:14 AM [facility] Value Range Interpretation Code Description Data Beronica rce(s) Supporting Document(s) Progress Note [facility] [id number]/[id number] lbm [file] AgICAgICAgICAgICAgICAgICAgICAgICAgICAgICAgICAgICAgICAgICAgICAgICAgICAgICAgICAgIC AgICAgICAgICAgICAgICAgICAgICAgDQogICAgICAgICAgICAgICAgICAgICAgICAgICAgICAgICAgIC AgICAgICAgICAgICAgICAgICAgICAgICAgICAgICAg ICAgICAgICAgICAgICAgICAgICAgICAgICAgICAgICAgDQogICAgICAgICAgICAgICAgICAgICAgICAg ICAgICAgICAgICAgICAgICAgICAgICAgICAgICAgICAgICAgICAgICAgICAgICAgICAgICAgICAgICAg ICAgICAgICAgICAgICAgDQogICAgICAgICAgICAgIC AgICAgICAgICAgICAgICAgICAgICAgICAgICAgICAgICAgICAgICAgICAgICAgICAgICAgICAgICAgIC AgICAgICAgICAgICAgICAgICAgICAgICAgDQogICAgICAgICAgICAgICAgICAgICAgICAgICAgICAgIC AgICAgICAgICAgICAgICAgICAgICAgICAgICAgICAg ICAgICAgICAgICAgICAgICAgICAgICAgICAgICAgICAgICAgDQogICAgICAgICAgICAgICAgICAgICAg ICAgICAgICAgICAgICAgICAgICAgICAgICAgICAgICAgICAgICAgICAgICAgICAgICAgICAgICAgICAg ICAgICAgICAgICAgICAgICAgDQogICAgICAgICAgIC AgICAgICAgICAgICAgICAgICAgICAgICAgICAgICAgICAgICAgICAgICAgICAgICAgICAgICAgICAgIC AgICAgICAgICAgICAgICAgICAgICAgICAgICAgDQogICAgICAgICAgICAgICAgICAgICAgICAgICAgIC AgICAgICAgICAgICAgICAgICAgICAgICAgICAgICAg ICAgICAgICAgICAgICAgICAgICAgICAgICAgICAgICAgICAgICAgDQogICAgICAgICAgICAgICAgICAg ICAgICAgICAgICAgICAgICAgICAgICAgICAgICAgICAgICAgICAgICAgICAgICAgICAgICAgICAgICAg ICAgICAgICAgICAgICAgICAgICAgDQogICAgICAgIC AgICAgICAgICAgICAgICAgICAgICAgICAgICAgICAgICAgICAgICAgICAgICAgICAgICAgICAgICAgIC BuARFtHAWkKWLkZEZbNQChDXAhUOFoUHUyHYFrREWtUNg5S5trZVMpPULiIH4hXPq3Lj8+DQoNCmVuZH P4etAptE1LDK1ci3OiDTzkXADsy2PnUFa8YZ1YEAIw JHmfZK2RTBkbir6JMWKeDBVagELWx3zqMaXtKXU4NWVxGyjpGE1CUSOpH7xbloVpWZGdHMCWBQ6YXqMi X1AudY30JMZZZt6+ZRfeqsLvKczFSaT4HLMup0CwNGn4QX6QZFQvNgzhf5AkKvJmWIQCCYeeUV1DSMJ2 RJQrANPqBn0LDWQmE717mcZlFU8ZSf1ENiSgVV4gjc 4WMzOyYLHiSarDJdc4SYrnXI2YcMWhSHqEks1ebuSgmnSCi7LugrOqtPAXjfScKHHeBIOqNHwvFFRfOY NaUB8bPU4eXVUwDZMrJtC6QCEHVV8SYTHrSDKebLBcKJNnDMIEVQ2OLCtaJZN3ZVNwvwLfdXEiUMesZZ 9QYXJlbnQgMTkgMCBSDQo+Mo1LKT7ki4OuEVlmDVCi OS2utk6XQJgKVuWsP7E6xIYfF5I1PJesHg8ICBYsBBSrAFjzVVNMGRxcVK0EWS7wzgT4FM7FqIUpNXVd JXSwwSUwXTz9Z49piJRvFPslVU9BRBP+Claudia+Xu9VKZGuJVKeAHHaGfBbGENKRsHvL4XmZ7HSo3PtZ5Uc ZF54hIgqgwArVLkmJC8TFE9qQWKiHQWVBH0CkYPinJ 9ofvOsVQMrEQFJOsXrR30amIBiNVJjCWU2DONeBv9POSMfD8MrasNlmGkvwtNeBLCvUTGLRG1CXOrxlj WkaUUvrGnnUD99kKtzOF4ZTr3OXpVjMN4cfb3NyNUzKb2BDCKdHw8DCEGbKRMzNXOeRSH5DIIzPyQnYE cvTLRtLYAlBYH1VUIhQGUqVZ7AJfKoVOUiLZX5OMyh FUBmFTVwct4RKPHqGSKfKAR0BpHfROAnFFCiKEobYGVsODTlAQY3IHLdCXVoVH8OGwNrNUSeECS6UsKz NEIhHYMuyn4RGYNbQOMaNWm8HUKiZBApGUWpJMxvZVAzFZNdXcY5YPWaMRAoBJ9CDfLtZUJxABI9ViSt YAFeHQXnpd7LIQEqZJFiMzAuPBWrZUNaTQCzPJuzAI GhBFS9WRvdDNLiSLViPK0IJtJlRDVjICYpTcYrVMQlJNMnru4YIEPaOIBeKFR8DEVxUEKrXWCfYIcwJO WpZBW7ETP8ELHyDIFwCL7KZyCzAOHiKBOoZkFaCQKeEFOsys9BTEIkGBAcNuB0VOFnTUIyCNTdRUszZO ZeIWC5MQzuPFPyZVXfQO5ZRzIwETAmXEZ9GxmvIJWe OVXcvo4ZHSYyZNMiPkBaOjYbNMUxIRMdSLjsBRGmSEW9YIZ3VYXwZOUzTP4YDkUmMFExCFs4TjYzQIFs TBUsrr8FSKYkZLRpVIb0LnRcTBBcJBPcICn0mkOitPYvSWx6QZ7XW3EcrbQhTxCKIn6Gv805TGUwAXCk Ou1WM0viNk1wVRBaOHBZBz3GCDw8V5N1SCTwJLG8KM ybBCsfTEKlMKQiBHXlAnL0QKjbGGP+UKx7NdetGFShBeLjEdCdMOUyVAOvKsJpCQBcPLR1A7XbHo0uLT ANCj4+EMlqbJBjcLzdBYIBAoZ8ZCH4XHipURYNMz3I ID Date Data Source [id number] 05/04/2020 08:02:58 AM [facility] Value Range Interpretation Code Description Data Beronica rce(s) Supporting Document(s) Glucose [Mass/volume] in Capillary blood by Glucometer 71 mg/dL 70- 140 [facility] ID Date Data Source [id number] 05/04/2020 08:02:58 AM [facility] Value Range Interpretation Code Description Data Beronica rce(s) Supporting Document(s) Glucose [Mass/volume] in Capillary blood by Glucometer 66 mg/dL 70- 140 L [facility] ID Date Data Source [id number] 05/04/2020 06:31:11 AM [facility] Value Range Interpretation Code Description Data Beronica rce(s) Supporting Document(s) Prothrombin time (PT) 23.3 s 12.5-14.9 H [facility] INR in Platelet poor plasma by Coagulation assay 2.03 [facility] Routine intensity oral anticoagulation I NR is typically 2.0-3.0. Target INR must be clinically individualized. ID Date Data Source [id number] 05/04/2020 06:46:06 AM [facility] Value Range Interpretation Code Description Data Beronica rce(s) Supporting Document(s) Bilirubin.direct [Mass/volume] in Serum or Plasma 9.0 mg/dL <0.3 H [facility] ID Date Data Source [id number] 05/04/2020 06:46:06 AM [facility] Value Range Interpretation Code Description Data Beronica rce(s) Supporting Document(s) Albumin [Mass/volume] in Serum or Plasma by Bromocresol green (BCG) dye binding method 2.3 g/dL 3.5-5.2 [facility] Bil[facility].total [Mass/volume] in Serum or Plasma 13.1 mg/dL <1.2 H [facility] Calcium [Mass/volume] in Serum or Plasma 8.3 mg/dL 8.6-10.0 L [facility] Chloride [Moles/volume] in Serum or Plasma 99 mmol/L 98-107 [facility] Creatinine [Mass/volume] in Serum or Plasma 0.36 mg/dL 0.70-1.20 L [facility] Icteric Glucose [Mass/volume] in Serum or Plasma 78 mg/dL 70-140 [facility] Alkaline phosphatase [Enzymatic activity/volume] in Serum or Plasma 132 U/L 40-129 H [facility] Potassium [Moles/volume] in Serum or Plasma 3.3 mmol/L 3.4-5.1 L [facility] Protein [Mass/volume] in Serum or Plasma 6.6 g/dL 6.4-8.3 [facility] Sodium [Moles/volume] in Serum or Plasma 132 mmol/L 136-145 L [facility] Aspartate aminotransferase [Enzymatic activity/volume] in Serum or Plasma 106 U/L <40 H [facility] Urea nitrogen [Mass/volume] in Serum or Plasma 5 mg/dL 6-20 L [facility] Osmolality of Serum or Plasma by calculation 270 mosm/kg 275-300 L [facility] Creatinine/Urea nitrogen [Mass Ratio] in Serum or Plasma 14 [facility] Bicarbonate [Moles/volume] in Serum 24 mmol/L 22-29 [facility] Alanine aminotransferase [Enzymatic activity/volume] in Seru m or Plasma 52 U/L <41 H [facility] Anion gap 3 in Serum or Plasma 9 mmol/L 8-15 [facility] Glomerular filtration rate/1.73 sq M pre dicted among non-blacks [Volume Rate/Area] in Serum or Plasma by Creatinine-based formula (MDRD) >6 0 [facility] Glomerular filtration rate/1.73 sq M pre dicted among blacks [Volume Rate/Area] in Serum or Plasma by Creatinine-based formula (MDRD) >60 [facility] ID Date Data Source [id number] 05/03/2020 09:09:56 PM [facility] Name Value Range Interpretation Code Description Data Beronica rce(s) Supporting Document(s) Glucose [Mass/volume] in Capillary blood by Glucometer 138 mg/dL 70- 140 [facility] ID Date Data Source [id number] 05/03/2020 05:02:09 PM [facility] Name Value Range Interpretation Code Description Data Beronica rce(s) Supporting Document(s) Glucose [Mass/volume] in Capillary blood by Glucometer 121 mg/dL 70- 140 [facility] ID Date Data Source [id number] 05/03/2020 02:35:41 PM [facility] US RENAL OR AORTA COMPLETE [id number] RE SULTInterpreted by:Dudley Pastrana, MDPROCEDURE INFORMATION: Exam: [...] kidneys and bladder. COMPARISON: US ABDOMEN LIMITED [id number] PORTABLE 04/28/2020 12:59 PM FINDINGS: Liver: There [...] rce(s) Supporting Document(s) ID Date Data Source [id number] 05/03/2020 12:25:08 PM [facility] Value Range Interpretation Code Description Data Beronica rce(s) Supporting Document(s) Glucose [Mass/volume] in Capillary blood by Glucometer 89 mg/dL 70- 140 [facility] ID Date Data Source [id number] 05/03/2020 10:26:00 AM [facility] Value Range Interpretation Code Description Data Beronica rce(s) Supporting Document(s) Glucose [Mass/volume] in Capillary blood by Glucometer 119 mg/dL 70- 140 [facility] ID Date Data Source [id number] 05/03/2020 08:57:45 AM [facility] Value Range Interpretation Code Description Data Beronica rce(s) Supporting Document(s) Glucose [Mass/volume] in Capillary blood by Glucometer 88 mg/dL 70- 140 [facility] ID Date Data Source [id number] 05/03/2020 08:23:52 AM [facility] Value Range Interpretation Code Description Data Beronica rce(s) Supporting Document(s) Glucose [Mass/volume] in Capillary blood by Glucometer 65 mg/dL 70- 140 L [facility] ID Date Data Source [id number] 05/03/2020 04:40:11 AM [facility] Name Value Range Interpretation Code Description Data Beronica rce(s) Supporting Document(s) Prothrombin time (PT) 22.1 s 12.5-14.9 H [facility] INR in Platelet poor plasma by Coagulation assay 1.90 [facility] Routine intensity oral anticoagulation I NR is typically 2.0-3.0. Target INR must be clinically individualized. ID Date Data Source [id number] 05/03/2020 05:45:43 AM [facility] Value Range Interpretation Code Description Data Beronica rce(s) Supporting Document(s) Bilirubin.direct [Mass/volume] in Serum or Plasma 9.0 mg/dL <0.3 H [facility] ID Date Data Source [id number] 05/03/2020 05:45:43 AM [facility] Value Range Interpretation Code Description Data Beronica rce(s) Supporting Document(s) Albumin [Mass/volume] in Serum or Plasma by Bromocresol green (BCG) dye binding method 2.4 g/dL 3.5-5.2 L [facility] Bilirubin.total [Mass/volume] in Serum or Plasma 14.3 mg/dL <1.2 H [facility] Calcium [Mass/volume] in Serum or Plasma 8.2 mg/dL 8.6-10.0 L [facility] Chloride [Moles/volume] in Serum or Plasma 98 mmol/L 98-107 [facility] Creatinine [Mass/volume] in Serum or Plasma 0.21 mg/dL 0.70-1.20 L [facility] Icteric Glucose [Mass/volume] in Serum or Plasma 79 mg/dL 70-140 [facility] Alkaline phosphatase [Enzymatic activity/volume] in Serum or Plasma 135 U/L 40-129 H [facility] Potassium [Moles/volume] in Serum or Plasma 3.5 mmol/L 3.4-5.1 [facility] Protein [Mass/volume] in Serum or Plasma 7.5 g/dL 6.4-8.3 [facility] Sodium [Moles/volume] in Serum or Plasma 130 mmol/L 136-145 L [facility] Aspartate aminotransferase [Enzymatic activity/volume] in Serum or Plasma 113 U/L <40 H [facility] Urea nitrogen [Mass/volume] in Serum or Plasma 5 mg/dL 6-20 L [facility] Osmolality of Serum or Plasma by calculation 266 mosm/kg 275-300 L [facility] Creatinine/Urea nitrogen [Mass Ratio] in Serum or Plasma 22 [facility] Bicarbonate [Moles/volume] in Serum 23 mmol/L 22-29 [facility] Alanine aminotransferase [Enzymatic activity/volume] in Seru m or Plasma 53 U/L <41 H [facility] Anion gap 3 in Serum or Plasma 9 mmol/L 8-15 [facility] Glomerular filtration rate/1.73 sq M pre dicted among non-blacks [Volume Rate/Area] in Serum or Plasma by Creatinine-based formula (MDRD) >6 0 [facility] Glomerular filtration rate/1.73 sq M pre dicted among blacks [Volume Rate/Area] in Serum or Plasma by Creatinine-based formula (MDRD) >60 [facility] ID Date Data Source [id number] 05/03/2020 05:45:43 AM [facility] Name Value Range Interpretation Code Description Data Beronica rce(s) Supporting Document(s) Phosphate [Mass/volume] in Serum or Plasma 3.1 mg/dL 2.5-4.5 [facility] ID Date Data Source [id number] 05/02/2020 05:04:51 PM [facility] Value Range Interpretation Code Description Data Beronica rce(s) Supporting Document(s) Glucose [Mass/volume] in Capillary blood by Glucometer 133 mg/dL 70- 140 [facility] ID Date Data Source [id number] 05/02/2020 03:22:46 PM [facility] Value Range Interpretation Code Description Data Beronica rce(s) Supporting Document(s) Color of Urine [facility] Clarity of Urine [facility] Specific gravity of Urine by Refractometry automated 1.003 1.003 -1.030 [facility] pH of Urine by Automated test strip 7.0 5.0-8.0 [facility] Protein [Mass/volume] in Urine by Automated test strip Neg [facility] Glucose [Mass/volume] in Urine by Automated test strip Neg [facility] Ketones [Mass/volume] in Urine by Automated test strip Neg [facility] Bilirubin.total [Presence] in Urine by Automated test strip Negative [facility] False-positive results may occur with ce rtain food additives or medications. Hemoglobin [Presence] in Urine by Automated test strip Neg ative A [facility] Leukocyte esterase [Presence] in Urine by Automated test strip Negative [facility] Nitrite [Presence] in Urine by Automated test strip Negati ve [facility] Leukocytes [#/area] in Urine sediment by Automated count 0 -5 [facility] Erythrocytes [#/area] in Urine sediment by Automated count 7 /HPF 0-3 H [facility] Service comment [facility] ID Date Data Source [id number] 05/02/2020 12:32:18 PM [facility] Value Range Interpretation Code Description Data Beronica rce(s) Supporting Document(s) Glucose [Mass/volume] in Capillary blood by Glucometer 116 mg/dL 70- 140 [facility] ID Date Data Source [id number] 05/02/2020 08:28:17 AM [facility] Value Range Interpretation Code Description Data Beronica rce(s) Supporting Document(s) Glucose [Mass/volume] in Capillary blood by Glucometer 77 mg/dL 70- 140 [facility] ID Date Data Source [id number] 05/02/2020 04:09:22 AM [facility] Value Range Interpretation Code Description Data Beronica rce(s) Supporting Document(s) Prothrombin time (PT) 24.2 s 12.5-14.9 H [facility] INR in Platelet poor plasma by Coagulation assay 2.13 [facility] Routine intensity oral anticoagulation I NR is typically 2.0-3.0. Target INR must be clinically individualized. ID Date Data Source [id number] 05/02/2020 04:18:36 AM [facility] Value Range Interpretation Code Description Data Beronica rce(s) Supporting Document(s) Bilirubin.direct [Mass/volume] in Serum or Plasma 8.3 mg/dL <0.3 H [facility] ID Date Data Source [id number] 05/02/2020 04:18:36 AM [facility] Value Range Interpretation Code Description Data Beronica rce(s) Supporting Document(s) Albumin [Mass/volume] in Serum or Plasma by Bromocresol green (BCG) dye binding method 2.2 g/dL 3.5-5.2 [facility] Bilirubin.total [Mass/volume] in Serum or Plasma 12.3 mg/dL <1.2 H [facility] Calcium [Mass/volume] in Serum or Plasma 6.2 mg/dL 8.6-10.0 L [facility] Chloride [Moles/volume] in Serum or Plasma 102 mmol/L 98-107 [facility] Creatinine [Mass/volume] in Serum or Plasma 0.44 mg/dL 0.70-1.20 [facility] Icteric Glucose [Mass/volume] in Serum or Plasma 83 mg/dL 70-140 [facility] Alkaline phosphatase [Enzymatic activity/volume] in Serum or Plasma 126 U/L 40-129 [facility] Potassium [Moles/volume] in Serum or Plasma 3.3 mmol/L 3.4-5.1 L [facility] Protein [Mass/volume] in Serum or Plasma 6.5 g/dL 6.4-8.3 [facility] Sodium [Moles/volume] in Serum or Plasma 135 mmol/L 136-145 L [facility] Aspartate aminotransferase [Enzymatic activity/volume] in Serum or Plasma 93 U/L <40 H [facility] Urea nitrogen [Mass/volume] in Serum or Plasma 4 mg/dL 6-20 [facility] Osmolality of Serum or Plasma by calculation 276 mosm/kg 275-300 [facility] Creatinine/Urea nitrogen [Mass Ratio] in Serum or Plasma 10 [facility] Bicarbonate [Moles/volume] in Serum 25 mmol/L 22-29 [facility] Alanine aminotransferase [Enzymatic activity/volume] in Seru m or Plasma 42 U/L <41 H [facility] Anion gap 3 in Serum or Plasma 8 mmol/L 8-15 [facility] Glomerular filtration rate/1.73 sq M pre dicted among non-blacks [Volume Rate/Area] in Serum or Plasma by Creatinine-based formula (MDRD) >6 0 [facility] Glomerular filtration rate/1.73 sq M pre dicted among blacks [Volume Rate/Area] in Serum or Plasma by Creatinine-based formula (MDRD) >60 [facility] ID Date Data Source [id number] 05/02/2020 04:18:36 AM EDT [facility] Name Value Range Interpretation Code Description Data Beronica rce(s) Supporting Document(s) Magnesium [Mass/volume] in Serum or Plasma 1.6 mg/dL 1.6-2.6 [facility] ID Date Data Source [id number] 05/02/2020 04:18:36 AM [facility] Value Range Interpretation Code Description Data Beronica rce(s) Supporting Document(s) Phosphate [Mass/volume] in Serum or Plasma 2.8 mg/dL 2.5-4.5 [facility] ID Date Data Source [id number] 05/01/2020 09:29:52 PM [facility] Value Range Interpretation Code Description Data Beronica rce(s) Supporting Document(s) Glucose [Mass/volume] in Capillary blood by Glucometer 151 mg/dL 70- 140 H [facility] ID Date Data Source [id number] 05/01/2020 05:38:50 PM [facility] Value Range Interpretation Code Description Data Beronica rce(s) Supporting Document(s) Glucose [Mass/volume] in Capillary blood by Glucometer 112 mg/dL 70- 140 [facility] ID Date Data Source [id number] 05/01/2020 12:22:05 PM [facility] Value Range Interpretation Code Description Data Beronica rce(s) Supporting Document(s) Glucose [Mass/volume] in Capillary blood by Glucometer 96 mg/dL 70- 140 [facility] ID Date Data Source [id number] 05/01/2020 10:25:19 AM [facility] Value Range Interpretation Code Description Data Beronica rce(s) Supporting Document(s) Albumin [Mass/volume] in Serum or Plasma by Bromocresol green (BCG) dye binding method 2.5 g/dL 3.5-5.2 [facility] Bilirubin.total [Mass/volume] in Serum or Plasma 14.5 mg/dL <1.2 H [facility] Calcium [Mass/volume] in Serum or Plasma 8.4 mg/dL 8.6-10.0 L [facility] Chloride [Moles/volume] in Serum or Plasma 97 mmol/L 98-107 L [facility] Creatinine [Mass/volume] in Serum or Plasma 0.36 mg/dL 0.70-1.20 L [facility] Icteric Glucose [Mass/volume] in Serum or Plasma 105 mg/dL 70-140 [facility] Alkaline phosphatase [Enzymatic activity/volume] in Serum or Plasma 155 U/L 40-129 H [facility] Potassium [Moles/volume] in Serum or Plasma 3.2 mmol/L 3.4-5.1 L [facility] Protein [Mass/volume] in Serum or Plasma 7.3 g/dL 6.4-8.3 [facility] Sodium [Moles/volume] in Serum or Plasma 130 mmol/L 136-145 L [facility] Aspartate aminotransferase [Enzymatic activity/volume] in Serum or Plasma 106 U/L <40 H [facility] Urea nitrogen [Mass/volume] in Serum or Plasma 4 mg/dL 6-20 [facility] Osmolality of Serum or Plasma by calculation 267 mosm/kg 275-300 [facility] Creatinine/Urea nitrogen [Mass Ratio] in Serum or Plasma 12 [facility] Bicarbonate [Moles/volume] in Serum 24 mmol/L 22-29 [facility] Alanine aminotransferase [Enzymatic activity/volume] in Seru m or Plasma 46 U/L <41 H [facility] Anion gap 3 in Serum or Plasma 9 mmol/L 8-15 [facility] Glomerular filtration rate/1.73 sq M pre dicted among non-blacks [Volume Rate/Area] in Serum or Plasma by Creatinine-based formula (MDRD) >6 0 [facility] Glomerular filtration rate/1.73 sq M pre dicted among blacks [Volume Rate/Area] in Serum or Plasma by Creatinine-based formula (MDRD) >60 [facility] ID Date Data Source [id number] 05/01/2020 08:22:07 AM [facility] Name Value Range Interpretation Code Description Data Beronica rce(s) Supporting Document(s) Glucose [Mass/volume] in Capillary blood by Glucometer 71 mg/dL 70- 140 [facility] ID Date Data Source [id number] 05/01/2020 05:33:32 AM [facility] Value Range Interpretation Code Description Data Beronica rce(s) Supporting Document(s) Prothrombin time (PT) 21.4 s 12.5-14.9 H [facility] INR in Platelet poor plasma by Coagulation assay 1.82 [facility] Routine intensity oral anticoagulation I NR is typically 2.0-3.0. Target INR must be clinically individualized. ID Date Data Source [id number] 05/01/2020 05:37:58 AM [facility] Value Range Interpretation Code Description Data Beronica rce(s) Supporting Document(s) Magnesium [Mass/volume] in Serum or Plasma 1.5 mg/dL 1.6-2.6 L [facility] ID Date Data Source [id number] 05/01/2020 05:37:58 AM [facility] Value Range Interpretation Code Description Data Beronica rce(s) Supporting Document(s) Phosphate [Mass/volume] in Serum or Plasma 2.6 mg/dL 2.5-4.5 [facility] ID Date Data Source [id number] 04/30/2020 09:11:55 PM [facility] Value Range Interpretation Code Description Data Beronica rce(s) Supporting Document(s) Glucose [Mass/volume] in Capillary blood by Glucometer 87 mg/dL 70- 140 [facility] ID Date Data Source [id number] 04/30/2020 05:04:15 PM [facility] Value Range Interpretation Code Description Data Beronica rce(s) Supporting Document(s) Glucose [Mass/volume] in Capillary blood by Glucometer 98 mg/dL 70- 140 [facility] ID Date Data Source [id number] 04/30/2020 04:20:06 PM [facility] Value Range Interpretation Code Description Data Beronica rce(s) Supporting Document(s) Magnesium [Mass/volume] in Serum or Plasma 1.6 mg/dL 1.6-2.6 [facility] ID Date Data Source [id number] 04/30/2020 04:08:24 PM [facility] Value Range Interpretation Code Description Data Beronica rce(s) Supporting Document(s) Calcium.ionized [Moles/volume] in Arterial blood 1.10 mmol/L 1.13-1.[address] [facility] ID Date Data Source [id number] 04/30/2020 12:28:31 PM [facility] Value Range Interpretation Code Description Data Beronica rce(s) Supporting Document(s) Glucose [Mass/volume] in Capillary blood by Glucometer 96 mg/dL 70- 140 [facility] ID Date Data Source [id number] 04/30/2020 12:31:[facility] Value Range Interpretation Code Description Data Beronica rce(s) Supporting Document(s) Glucose [Mass/volume] in Capillary blood by Glucometer 88 mg/dL 70- 140 [facility] ID Date Data Source [id number] 04/30/2020 08:28:33 AM [facility] Name Value Range Interpretation Code Description Data Beronica rce(s) Supporting Document(s) Glucose [Mass/volume] in Capillary blood by Glucometer 90 mg/dL 70- 140 [facility] ID Date Data Source [id number] 04/30/2020 06:44:33 AM [facility] Name Value Range Interpretation Code Description Data Beronica rce(s) Supporting Document(s) Bicarbonate [Moles/volume] in Serum 24 mmol/L 22-29 [facility] Chloride [Moles/volume] in Serum or Plasma 101 mmol/L 98-107 [facility] Creatinine [Mass/volume] in Serum or Plasma 0.27 mg/dL 0.70-1.20 L [facility] Icteric Glucose [Mass/volume] in Serum or Plasma 79 mg/dL 70-140 [facility] Potassium [Moles/volume] in Serum or Plasma 3.6 mmol/L 3.4-5.1 [facility] Sodium [Moles/volume] in Serum or Plasma 133 mmol/L 136-145 L [facility] Urea nitrogen [Mass/volume] in Serum or Plasma 4 mg/dL 6-20 L [facility] Anion gap 3 in Serum or Plasma 9 mmol/L 8-15 [facility] Osmolality of Serum or Plasma by calculation 272 mosm/kg 275-300 L [facility] Creatinine/Urea nitrogen [Mass Ratio] in Serum or Plasma 13 [facility] Calcium [Mass/volume] in Serum or Plasma 7.7 mg/dL 8.6-10.0 L [facility] Glomerular filtration rate/1.73 sq M pre dicted among non-blacks [Volume Rate/Area] in Serum or Plasma by Creatinine-based formula (MDRD) >6 0 [facility] Glomerular filtration rate/1.73 sq M pre dicted among blacks [Volume Rate/Area] in Serum or Plasma by Creatinine-based formula (MDRD) >60 [facility] ID Date Data Source [id number] 04/30/2020 06:44:33 AM [facility] Value Range Interpretation Code Description Data Beronica rce(s) Supporting Document(s) Magnesium [Mass/volume] in Serum or Plasma 1.7 mg/dL 1.6-2.6 [facility] ID Date Data Source [id number] 04/30/2020 06:57:05 AM [facility] Value Range Interpretation Code Description Data Beronica rce(s) Supporting Document(s) Prothrombin time (PT) 23.2 s 12.5-14.9 H [facility] INR in Platelet poor plasma by Coagulation assay 2.02 [facility] Routine intensity oral anticoagulation I NR is typically 2.0-3.0. Target INR must be clinically individualized. ID Date Data Source [id number] 04/30/2020 07:24:53 AM [facility] Value Range Interpretation Code Description Data Beronica rce(s) Supporting Document(s) Albumin [Mass/volume] in Serum or Plasma by Bromocresol green (BCG) dye binding method 2.2 g/dL 3.5-5.2 [facility] Bil[facility].total [Mass/volume] in Serum or Plasma 13.0 mg/dL <1.2 H [facility] Bilirubin.direct [Mass/volume] in Serum or Plasma 8.6 mg/dL <0.3 H [facility] Alkaline phosphatase [Enzymatic activity/volume] in Serum or Plasma 143 U/L 40-129 H [facility] Aspartate aminotransferase [Enzymatic activity/volume] in Serum or Plasma 108 U/L <40 H [facility] Alanine aminotransferase [Enzymatic activity/volume] in Seru m or Plasma 39 U/L <41 [facility] Protein [Mass/volume] in Serum or Plasma 6.5 g/dL 6.4-8.3 [facility] ID Date Data Source [id number] 04/30/2020 07:24:53 AM [facility] Value Range Interpretation Code Description Data Beronica rce(s) Supporting Document(s) Phosphate [Mass/volume] in Serum or Plasma 2.4 mg/dL 2.5-4.5 L [facility] ID Date Data Source [id number] 04/29/2020 06:20:20 PM [facility] Value Range Interpretation Code Description Data Beronica rce(s) Supporting Document(s) Bicarbonate [Moles/volume] in Serum 22 mmol/L 22-29 [facility] Chloride [Moles/volume] in Serum or Plasma 100 mmol/L 98-107 [facility] Creatinine [Mass/volume] in Serum or Plasma 0.31 mg/dL 0.70-1.20 L [facility] Icteric Glucose [Mass/volume] in Serum or Plasma 175 mg/dL 70-140 H [facility] Potassium [Moles/volume] in Serum or Plasma 3.9 mmol/L 3.4-5.1 [facility] Sodium [Moles/volume] in Serum or Plasma 130 mmol/L 136-145 L [facility] Urea nitrogen [Mass/volume] in Serum or Plasma 3 mg/dL 6-20 L [facility] Anion gap 3 in Serum or Plasma 9 mmol/L 8-15 [facility] Osmolality of Serum or Plasma by calculation 271 mosm/kg 275-300 L [facility] Creatinine/Urea nitrogen [Mass Ratio] in Serum or Plasma 10 [facility] Calcium [Mass/volume] in Serum or Plasma 7.9 mg/dL 8.6-10.0 L [facility] Glomerular filtration rate/1.73 sq M pre dicted among non-blacks [Volume Rate/Area] in Serum or Plasma by Creatinine-based formula (MDRD) >6 0 [facility] Glomerular filtration rate/1.73 sq M pre dicted among blacks [Volume Rate/Area] in Serum or Plasma by Creatinine-based formula (MDRD) >60 [facility] ID Date Data Source [id number] 04/29/2020 06:20:20 PM EDT [facility] Value Range Interpretation Code Description Data Beronica rce(s) Supporting Document(s) Magnesium [Mass/volume] in Serum or Plasma 1.8 mg/dL 1.6-2.6 [facility] ID Date Data Source [id number] 04/29/2020 05:02:58 PM EDT [facility] Value Range Interpretation Code Description Data Beronica rce(s) Supporting Document(s) Glucose [Mass/volume] in Capillary blood by Glucometer 128 mg/dL 70- 140 [facility] ID Date Data Source [id number] 04/29/2020 04:25:37 PM EDT [facility] Value Range Interpretation Code Description Data Beronica rce(s) Supporting Document(s) 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 [file] [id number] ID Date Data Source [id number] [facility]2020 [facility] Value Range Interpretation Code Description Data Beronica rce(s) Supporting Document(s) Glucose [Mass/volume] in Capillary blood by Glucometer 85 mg/dL 70- 140 [facility] ID Date Data Source [id number] 04/29/2020 08:28:10 AM [facility] Name Value Range Interpretation Code Description Data Beronica rce(s) Supporting Document(s) Glucose [Mass/volume] in Capillary blood by Glucometer 71 mg/dL 70- 140 [facility] ID Date Data Source [id number] 04/29/2020 06:52:27 AM [facility] Value Range Interpretation Code Description Data Beronica rce(s) Supporting Document(s) Albumin [Mass/volume] in Serum or Plasma by Bromocresol green (BCG) dye binding method 2.1 g/dL 3.5-5.2 [facility] Bil[facility].total [Mass/volume] in Serum or Plasma 12.9 mg/dL <1.2 H [facility] Calcium [Mass/volume] in Serum or Plasma 7.6 mg/dL 8.6-10.0 L [facility] Chloride [Moles/volume] in Serum or Plasma 105 mmol/L 98-107 [facility] Creatinine [Mass/volume] in Serum or Plasma 0.34 mg/dL 0.70-1.20 L [facility] Icteric Glucose [Mass/volume] in Serum or Plasma 77 mg/dL 70-140 [facility] Alkaline phosphatase [Enzymatic activity/volume] in Serum or Plasma 147 U/L 40-129 H [facility] Potassium [Moles/volume] in Serum or Plasma 3.4 mmol/L 3.4-5.1 [facility] Protein [Mass/volume] in Serum or Plasma 6.4 g/dL 6.4-8.3 [facility] Sodium [Moles/volume] in Serum or Plasma 135 mmol/L 136-145 L [facility] Aspartate aminotransferase [Enzymatic activity/volume] in Serum or Plasma 122 U/L <40 H [facility] Urea nitrogen [Mass/volume] in Serum or Plasma 3 mg/dL 6-20 L [facility] Osmolality of Serum or Plasma by calculation 275 mosm/kg 275-300 [facility] Creatinine/Urea nitrogen [Mass Ratio] in Serum or Plasma 8 [facility] Bicarbonate [Moles/volume] in Serum 23 mmol/L 22-29 [facility] Alanine aminotransferase [Enzymatic activity/volume] in Seru m or Plasma 42 U/L <41 H [facility] Anion gap 3 in Serum or Plasma 7 mmol/L 8-15 L [facility] Glomerular filtration rate/1.73 sq M pre dicted among non-blacks [Volume Rate/Area] in Serum or Plasma by Creatinine-based formula (MDRD) >6 0 [facility] Glomerular filtration rate/1.73 sq M pre dicted among blacks [Volume Rate/Area] in Serum or Plasma by Creatinine-based formula (MDRD) >60 [facility] ID Date Data Source [id number] 04/29/2020 07:23:40 AM EDT [facility] Name Value Range Interpretation Code Description Data Beronica rce(s) Supporting Document(s) Leukocytes [#/volume] in Blood by Automated count 4.7 10*3/uL 4-10 [facility] Erythrocytes [#/volume] in Blood by Automated count 2.79 10*6/uL 4.6- 6.1 [facility] Hemoglobin [Mass/volume] in Blood 10.1 g/dL 13.5-18 [facility] Hematocrit [Volume Fraction] of Blood by Automated count 29.4 % 4 1-53 [facility] Erythrocyte mean corpuscular volume [Entitic volume] b y Automated count 105.1 fL 80-96 H [facility] Erythrocyte mean corpuscular hemoglobin [Entitic mass] by Automated count 36.2 pg 27-33 H [facility] Erythrocyte mean corpuscular hemoglobin concentration [Mass/volume] by Automated count 34.5 g/dL 32.0-36.0 [facility] Erythrocyte distribution width [Ratio] by Automated count 16.0 % 11.5-14.5 [facility] Platelets [#/volume] in Blood by Automated count 73 10*3/uL 150-400 [facility] Differential cell count method - Blood [facility] Neutrophils/100 leukocytes in Blood by Automated count 71 % [facility] Lymphocytes/100 leukocytes in Blood by Automated count 21 % [facility] Monocytes/100 leukocytes in Blood by Automated count 5 % [facility] Eosinophils/100 leukocytes in Blood by Automated count 1 % [facility] Neutrophils [#/volume] in Blood by Automated count 3.55 10*3/uL 1.8-7 .0 [facility] Lymphocytes [#/volume] in Blood by Automated count 1.05 10*3/uL 1.2-4 .0 L [facility] Monocytes [#/volume] in Blood by Automated count 0.25 10*3/uL 0-0.8 [facility] Eosinophils [#/volume] in Blood by Automated count 0.05 10*3/uL 0-0.5 [facility] Nucleated erythrocytes/100 leukocytes [Ratio] in Blood by Automated count 1 /100{WBCs} 0-0 H [facility] Variant lymphocytes/100 leukocytes in Blood by Manual count 1 % [facility] Myelocytes/100 leukocytes in Blood by Manual count 1 % [facility] Lymphocytes [#/volume] in Blood 0.05 10*3/uL 0 H [facility] Myelocytes [#/volume] in Blood by Manual count 0.05 10*3/uL 0-0 H [facility] Macrocytes [Presence] in Blood by Light microscopy [facility] Anisocytosis [Presence] in Blood by Light microscopy [facility] Target cells [Presence] in Blood by Light microscopy [facility] ID Date Data Source [id number] 04/29/2020 04:49:39 AM [facility] Value Range Interpretation Code Description Data Beronica rce(s) Supporting Document(s) Prothrombin time (PT) 23.1 s 12.5-14.9 H [facility] INR in Platelet poor plasma by Coagulation assay 2.00 [facility] Routine intensity oral anticoagulation I NR is typically 2.0-3.0. Target INR must be clinically individualized. ID Date Data Source [id number] 04/28/2020 11:00:55 PM [facility] Value Range Interpretation Code Description Data Beronica rce(s) Supporting Document(s) Bicarbonate [Moles/volume] in Serum 21 mmol/L 22-29 L [facility] Chloride [Moles/volume] in Serum or Plasma 106 mmol/L 98-107 [facility] Creatinine [Mass/volume] in Serum or Plasma 0.31 mg/dL 0.70-1.20 L [facility] Icteric Glucose [Mass/volume] in Serum or Plasma 102 mg/dL 70-140 [facility] Potassium [Moles/volume] in Serum or Plasma 3.9 mmol/L 3.4-5.1 [facility] Sodium [Moles/volume] in Serum or Plasma 136 mmol/L 136-145 [facility] Urea nitrogen [Mass/volume] in Serum or Plasma 2 mg/dL 6-20 [facility] Anion gap 3 in Serum or Plasma 9 mmol/L 8-15 [facility] Osmolality of Serum or Plasma by calculation 279 mosm/kg 275-300 [facility] Creatinine/Urea nitrogen [Mass Ratio] in Serum or Plasma 8 [facility] Calcium [Mass/volume] in Serum or Plasma 7.3 mg/dL 8.6-10.0 L [facility] Glomerular filtration rate/1.73 sq M pre dicted among non-blacks [Volume Rate/Area] in Serum or Plasma by Creatinine-based formula (MDRD) >6 0 [facility] Glomerular filtration rate/1.73 sq M pre dicted among blacks [Volume Rate/Area] in Serum or Plasma by Creatinine-based formula (MDRD) >60 [facility] ID Date Data Source [id number] 04/28/2020 11:00:55 PM [facility] Name Value Range Interpretation Code Description Data Beronica rce(s) Supporting Document(s) Magnesium [Mass/volume] in Serum or Plasma 1.7 mg/dL 1.6-2.6 [facility] ID Date Data Source [id number] 04/28/2020 08:58:54 PM EDT [facility] Name Value Range Interpretation Code Description Data Beronica rce(s) Supporting Document(s) Glucose [Mass/volume] in Capillary blood by Glucometer 123 mg/dL 70- 140 [facility] ID Date Data Source [id number] 04/28/2020 05:22:49 PM [facility] Value Range Interpretation Code Description Data Beronica rce(s) Supporting Document(s) Glucose [Mass/volume] in Capillary blood by Glucometer 135 mg/dL 70- 140 [facility] ID Date Data Source [id number] 04/28/2020 01:56:51 PM [facility] US ABDOMEN LIMITED [id number] RESULTInte rpreted by:JAYSON ThorpeLINICAL HISTORY:49-year-old male with [...] rce(s) Supporting Document(s) ID Date Data Source [id number] 04/28/2020 12:39:33 PM [facility] Name Value Range Interpretation Code Description Data Beronica rce(s) Supporting Document(s) Glucose [Mass/volume] in Capillary blood by Glucometer 113 mg/dL 70- 140 [facility] ID Date Data Source [id number] 04/28/2020 08:37:14 AM [facility] Value Range Interpretation Code Description Data Beronica rce(s) Supporting Document(s) Glucose [Mass/volume] in Capillary blood by Glucometer 95 mg/dL 70- 140 [facility] ID Date Data Source [id number] 04/28/2020 08:59:42 AM [facility] Value Range Interpretation Code Description Data Beronica rce(s) Supporting Document(s) Albumin [Mass/volume] in Serum or Plasma by Bromocresol green (BCG) dye binding method 2.3 g/dL 3.5-5.2 [facility] Bilirubin.total [Mass/volume] in Serum or Plasma 14.5 mg/dL <1.2 H [facility] Bilirubin.direct [Mass/volume] in Serum or Plasma 10.0 mg/dL <0.3 H [facility] Alkaline phosphatase [Enzymatic activity/volume] in Serum or Plasma 155 U/L 40-129 H [facility] Aspartate aminotransferase [Enzymatic activity/volume] in Serum or Plasma 177 U/L <40 H [facility] Alanine aminotransferase [Enzymatic activity/volume] in Seru m or Plasma 49 U/L <41 H [facility] Protein [Mass/volume] in Serum or Plasma 6.6 g/dL 6.4-8.3 [facility] ID Date Data Source [id number] 04/28/2020 08:59:43 AM [facility] Name Value Range Interpretation Code Description Data Beronica rce(s) Supporting Document(s) Magnesium [Mass/volume] in Serum or Plasma 1.8 mg/dL 1.6-2.6 [facility] ID Date Data Source [id number] 04/28/2020 08:59:43 AM [facility] Name Value Range Interpretation Code Description Data Beronica rce(s) Supporting Document(s) Bicarbonate [Moles/volume] in Serum 23 mmol/L 22-29 [facility] Chloride [Moles/volume] in Serum or Plasma 101 mmol/L 98-107 [facility] Creatinine [Mass/volume] in Serum or Plasma 0.24 mg/dL 0.70-1.20 [facility] Icteric Glucose [Mass/volume] in Serum or Plasma 105 mg/dL 70-140 [facility] Potassium [Moles/volume] in Serum or Plasma 3.3 mmol/L 3.4-5.1 L [facility] Sodium [Moles/volume] in Serum or Plasma 134 mmol/L 136-145 L [facility] Urea nitrogen [Mass/volume] in Serum or Plasma 2 mg/dL 6-20 L [facility] Anion gap 3 in Serum or Plasma 9 mmol/L 8-15 [facility] Osmolality of Serum or Plasma by calculation 275 mosm/kg 275-300 [facility] Creatinine/Urea nitrogen [Mass Ratio] in Serum or Plasma 8 [facility] Calcium [Mass/volume] in Serum or Plasma 7.5 mg/dL 8.6-10.0 L [facility] Glomerular filtration rate/1.73 sq M pre dicted among non-blacks [Volume Rate/Area] in Serum or Plasma by Creatinine-based formula (MDRD) >6 0 [facility] Glomerular filtration rate/1.73 sq M pre dicted among blacks [Volume Rate/Area] in Serum or Plasma by Creatinine-based formula (MDRD) >60 [facility] ID Date Data Source [id number] 04/28/2020 09:29:46 AM EDT [facility] Name Value Range Interpretation Code Description Data Beronica rce(s) Supporting Document(s) Leukocytes [#/volume] in Blood by Automated count 5.6 10*3/uL 4-10 [facility] Erythrocytes [#/volume] in Blood by Automated count 2.85 10*6/uL 4.6- 6.1 L [facility] Hemoglobin [Mass/volume] in Blood 10.4 g/dL 13.5-18 L [facility] Hematocrit [Volume Fraction] of Blood by Automated count 30.1 % 4 1-53 L [facility] Erythrocyte mean corpuscular volume [Entitic volume] b y Automated count 105.4 fL 80-96 H [facility] Erythrocyte mean corpuscular hemoglobin [Entitic mass] by Automated count 36.4 pg 27-33 H [facility] Erythrocyte mean corpuscular hemoglobin concentration [Mass/volume] by Automated count 34.5 g/dL 32.0-36.0 [facility] E[facility] distribution width [Ratio] by Automated count 16.4 % 11.5-14.5 [facility] Platelets [#/volume] in Blood by Automated count 67 10*3/uL 150-400 L [facility] Differential cell count method - Blood [facility] Neutrophils/100 leukocytes in Blood by Automated count 79 % [facility] Lymphocytes/100 leukocytes in Blood by Automated count 12 % [facility] Monocytes/100 leukocytes in Blood by Automated count 6 % [facility] Basophils/100 leukocytes in Blood by Automated count 1 % [facility] Neutrophils [#/volume] in Blood by Automated count 4.50 10*3/uL 1.8-7 .0 [facility] Lymphocytes [#/volume] in Blood by Automated count 0.68 10*3/uL 1.2-4 .0 L [facility] Monocytes [#/volume] in Blood by Automated count 0.34 10*3/uL 0-0.8 [facility] Basophils [#/volume] in Blood by Automated count 0.06 10*3/uL 0-0.2 [facility] Variant lymphocytes/100 leukocytes in Blood by Manual count 2 % [facility] Lymphocytes [#/volume] in Blood 0.11 10*3/uL 0 H [facility] Macrocytes [Presence] in Blood by Light microscopy [facility] Anisocytosis [Presence] in Blood by Light microscopy [facility] Polychromasia [Presence] in Blood by Light microscopy [facility] Rouleaux [Presence] in Blood by Light [facility] Target cells [Presence] in Blood by [facility] ID Date Data Source [id number] 04/28/2020 07:49:33 AM [facility] Value Range Interpretation Code Description Data Beronica rce(s) Supporting Document(s) Glucose [Mass/volume] in Capillary blood by Glucometer 121 mg/dL 70- 140 [facility] ID Date Data Source [id number] 04/28/2020 05:53:37 AM [facility] Value Range Interpretation Code Description Data Beronica rce(s) Supporting Document(s) Prothrombin time (PT) 26.9 s 12.5-14.9 H [facility] INR in Platelet poor plasma by Coagulation assay 2.43 [facility] Routine intensity oral anticoagulation I NR is typically 2.0-3.0. Target INR must be clinically individualized. ID Date Data Source [id number] 04/27/2020 09:17:05 PM [facility] Value Range Interpretation Code Description Data Beronica rce(s) Supporting Document(s) Glucose [Mass/volume] in Capillary blood by Glucometer 170 mg/dL 70- 140 H [facility] ID Date Data Source [id number] 04/27/2020 07:01:20 PM [facility] Value Range Interpretation Code Description Data Beronica rce(s) Supporting Document(s) Albumin [Mass/volume] in Serum or Plasma by Bromocresol green (BCG) dye binding method 2.4 g/dL 3.5-5.2 [facility] Bilirubin.total [Mass/volume] in Serum or Plasma 15.8 mg/dL <1.2 H [facility] Bilirubin.direct [Mass/volume] in Serum or Plasma 11.8 mg/dL <0.3 H [facility] Confirmed Alkaline phosphatase [Enzymatic activity/volume] in Serum or Plasma 170 U/L 40-129 H [facility] Aspartate aminotransferase [Enzymatic activity/volume] in Serum or Plasma 231 U/L <40 H [facility] Alanine aminotransferase [Enzymatic activity/volume] in Seru m or Plasma 57 U/L <41 H [facility] Protein [Mass/volume] in Serum or Plasma 7.1 g/dL 6.4-8.3 [facility] ID Date Data Source [id number] 04/27/2020 07:01:20 PM [facility] Name Value Range Interpretation Code Description Data Beronica rce(s) Supporting Document(s) Bicarbonate [Moles/volume] in Serum 20 mmol/L 22-29 L [facility] Chloride [Moles/volume] in Serum or Plasma 95 mmol/L 98-107 L [facility] Creatinine [Mass/volume] in Serum or Plasma 0.70-1.20 L [facility] IctericConfirmed Glucose [Mass/volume] in Serum or Plasma 271 mg/dL 70-140 H [facility] Potassium [Moles/volume] in Serum or Plasma 3.8 mmol/L 3.4-5.1 [facility] Sodium [Moles/volume] in Serum or Plasma 126 mmol/L 136-145 L [facility] Urea nitrogen [Mass/volume] in Serum or Plasma 6-20 L [facility] Confirmed Anion gap 3 in Serum or Plasma 11 mmol/L 8-15 [facility] Osmolality of Serum or Plasma by calculation 275-300 [facility] Creatinine/Urea nitrogen [Mass Ratio] in Serum or Plasma [facility] Calcium [Mass/volume] in Serum or Plasma 7.6 mg/dL 8.6-10.0 L [facility] Glomerular filtration rate/1.73 sq M pre dicted among non-blacks [Volume Rate/Area] in Serum or Plasma by Creatinine-based formula (MDRD) >6 0 [facility] Glomerular filtration rate/1.73 sq M pre dicted among blacks [Volume Rate/Area] in Serum or Plasma by Creatinine-based formula (MDRD) >60 [facility] ID Date Data Source [id number] 04/27/2020 07:01:20 PM [facility] Name Value Range Interpretation Code Description Data Beronica rce(s) Supporting Document(s) Thyrotropin [Units/volume] in Serum or Plasma 1.840 u[IU]/mL 0.270-4. 200 [facility] ID Date Data Source [id number] 04/27/2020 07:01:20 PM [facility] Name Value Range Interpretation Code Description Data Beronica rce(s) Supporting Document(s) Magnesium [Mass/volume] in Serum or Plasma 2.1 mg/dL 1.6-2.6 [facility] ID Date Data Source [id number] 04/27/2020 07:27:14 PM EDT [facility] Name Value Range Interpretation Code Description Data Beronica rce(s) Supporting Document(s) Leukocytes [#/volume] in Blood by Automated count 3.1 10*3/uL 4-10 L [facility] Erythrocytes [#/volume] in Blood by Automated count 3.03 10*6/uL 4.6- 6.1 L [facility] Hemoglobin [Mass/volume] in Blood 10.9 g/dL 13.5-18 L [facility] Hematocrit [Volume Fraction] of Blood by Automated count 31.8 % 4 1-53 L [facility] Erythrocyte mean corpuscular volume [Entitic volume] b y Automated count 105.0 fL 80-96 H [facility] Erythrocyte mean corpuscular hemoglobin [Entitic mass] by Automated count 36.0 pg 27-33 H [facility] Erythrocyte mean corpuscular hemoglobin concentration [Mass/volume] by Automated count 34.3 g/dL 32.0-36.0 [facility] E[facility] distribution width [Ratio] by Automated count 16.2 % 11.5-14.5 H [facility] Platelets [#/volume] in Blood by Automated count 56 10*3/uL 150-400 L [facility] Differential cell count method - Blood [facility] Neutrophils/100 leukocytes in Blood by Automated count 90 % [facility] Lymphocytes/100 leukocytes in Blood by Automated count 8 % [facility] Monocytes/100 leukocytes in Blood by Automated count 1 % [facility] Neutrophils [#/volume] in Blood by Automated count 2.79 10*3/uL 1.8-7 .0 [facility] Lymphocytes [#/volume] in Blood by Automated count 0.25 10*3/uL 1.2-4 .0 L [facility] Monocytes [#/volume] in Blood by Automated count 0.03 10*3/uL 0-0.8 [facility] Band form neutrophils/100 leukocytes in Blood by Manual count 1 % [facility] Band form neutrophils [#/volume] in Blood by Manual count 0.03 10*3 /uL 0-0.6 [facility] Macrocytes [Presence] in Blood by Light microscopy [facility] Anisocytosis [Presence] in Blood by Light microscopy [facility] Target cells [Presence] in Blood by Light microscopy [facility] ID Date Data Source [id number] 04/27/2020 06:28:09 PM EDT [facility] Value Range Interpretation Code Description Data Beronica rce(s) Supporting Document(s) Ammonia [Moles/volume] in Plasma 16-60 L [facility] ID Date Data Source [id number] 04/27/2020 04:55:19 PM EDT [facility] Name Value Range Interpretation Code Description Data Beronica rce(s) Supporting Document(s) Glucose [Mass/volume] in Capillary blood by Glucometer 140 mg/dL 70- 140 [facility] ID Date Data Source [id number] 04/27/2020 12:15:41 PM EDT [facility] Value Range Interpretation Code Description Data Beronica rce(s) Supporting Document(s) Glucose [Mass/volume] in Capillary blood by Glucometer 110 mg/dL 70- 140 [facility] ID Date Data Source [id number] 04/27/2020 10:07:03 AM EDT [facility] Value Range Interpretation Code Description Data Beronica rce(s) Supporting Document(s) Consultation [facility] [id number] lbm [file] Squeezer Operator/[id number] [file] ID Date Data Source [id number] 04/27/2020 08:36:55 AM EDT [facility] Name Value Range Interpretation Code Description Data Beronica rce(s) Supporting Document(s) Leukocytes [#/volume] in Blood by Automated count 4.2 10*3/uL 4-10 [facility] Erythrocytes [#/volume] in Blood by Automated count 3.10 10*6/uL 4.6- 6.1 L [facility] Hemoglobin [Mass/volume] in Blood 11.1 g/dL 13.5-18 L [facility] Hematocrit [Volume Fraction] of Blood by Automated count 32.3 % 4 1-53 L [facility] Erythrocyte mean corpuscular volume [Entitic volume] b y Automated count 104.3 fL 80-96 H [facility] Erythrocyte mean corpuscular hemoglobin [Entitic mass] by Automated count 35.8 pg 27-33 H [facility] Erythrocyte mean corpuscular hemoglobin concentration [Mass/volume] by Automated count 34.4 g/dL 32.0-36.0 [facility] width [Ratio] by Automated count 16.3 % 11.5-14.5 [facility] Platelets [#/volume] in Blood by Automated count 51 10*3/uL 150-400 L [facility] Differential cell count method - Blood [facility] Neutrophils/100 leukocytes in Blood by Automated count 61 % [facility] Lymphocytes/100 leukocytes in Blood by Automated count 28 % [facility] Monocytes/100 leukocytes in Blood by Automated count 9 % [facility] Eosinophils/100 leukocytes in Blood by Automated count 1 % [facility] Basophils/100 leukocytes in Blood by Automated count 1 % [facility] Neutrophils [#/volume] in Blood by Automated count 2.60 10*3/uL 1.8-7 .0 [facility] Lymphocytes [#/volume] in Blood by Automated count 1.16 10*3/uL 1.2-4 .0 L [facility] Monocytes [#/volume] in Blood by Automated count 0.36 10*3/uL 0-0.8 [facility] Eosinophils [#/volume] in Blood by Automated count 0.04 10*3/uL 0-0.5 [facility] Basophils [#/volume] in Blood by Automated count 0.03 10*3/uL 0-0.2 [facility] Nucleated erythrocytes/100 leukocytes [Ratio] in Blood by Automated count 0 /100{WBCs} 0-0 [facility] ID Date Data Source [id number] 04/27/2020 09:22:07 AM EDT [facility] Name Value Range Interpretation Code Description Data Beronica rce(s) Supporting Document(s) Bicarbonate [Moles/volume] in Serum 25 mmol/L 22-29 [facility] Chloride [Moles/volume] in Serum or Plasma 96 mmol/L 98-107 L [facility] Creatinine [Mass/volume] in Serum or Plasma 0.38 mg/dL 0.70-1.20 [facility] Icteric Glucose [Mass/volume] in Serum or Plasma 80 mg/dL 70-140 [facility] Potassium [Moles/volume] in Serum or Plasma 3.3 mmol/L 3.4-5.1 L [facility] Sodium [Moles/volume] in Serum or Plasma 131 mmol/L 136-145 L [facility] Urea nitrogen [Mass/volume] in Serum or Plasma 2 mg/dL 6-20 [facility] Anion gap 3 in Serum or Plasma 10 mmol/L 8-15 [facility] Osmolality of Serum or Plasma by calculation 267 mosm/kg 275-300 L [facility] Creatinine/Urea nitrogen [Mass Ratio] in Serum or Plasma 4 [facility] Calcium [Mass/volume] in Serum or Plasma 7.6 mg/dL 8.6-10.0 [facility] Glomerular filtration rate/1.73 sq M pre dicted among non-blacks [Volume Rate/Area] in Serum or Plasma by Creatinine-based formula (MDRD) >6 0 [facility] Glomerular filtration rate/1.73 sq M pre dicted among blacks [Volume Rate/Area] in Serum or Plasma by Creatinine-based formula (MDRD) >60 [facility] ID Date Data Source [id number] 04/27/2020 09:22:07 AM [facility] Name Value Range Interpretation Code Description Data Beronica rce(s) Supporting Document(s) Magnesium [Mass/volume] in Serum or Plasma 1.7 mg/dL 1.6-2.6 [facility] ID Date Data Source [id number] 04/27/2020 09:51:11 AM [facility] Name Value Range Interpretation Code Description Data Beronica rce(s) Supporting Document(s) Albumin [Mass/volume] in Serum or Plasma by Bromocresol green (BCG) dye binding method 2.3 g/dL 3.5-5.2 L [facility] Bilirubin.total [Mass/volume] in Serum or Plasma 15.1 mg/dL <1.2 H [facility] Bilirubin.direct [Mass/volume] in Serum or Plasma 11.1 mg/dL <0.3 H [facility] Confirmed Alkaline phosphatase [Enzymatic activity/volume] in Serum or Plasma 170 U/L 40-129 [facility] Aspartate aminotransferase [Enzymatic activity/volume] in Serum or Plasma 261 U/L <40 [facility] Alanine aminotransferase [Enzymatic activity/volume] in Seru m or Plasma 58 U/L <41 H [facility] Protein [Mass/volume] in Serum or Plasma 6.9 g/dL 6.4-8.3 [facility] ID Date Data Source [id number] 04/27/2020 08:19:05 AM [facility] Value Range Interpretation Code Description Data Beronica rce(s) Supporting Document(s) Glucose [Mass/volume] in Capillary blood by Glucometer 72 mg/dL 70- 140 [facility] ID Date Data Source [id number] 04/27/2020 04:14:02 AM [facility] Value Range Interpretation Code Description Data Beronica rce(s) Supporting Document(s) Prothrombin time (PT) 26.1 s 12.5-14.9 H [facility] INR in Platelet poor plasma by Coagulation assay 2.34 [facility] Routine intensity oral anticoagulation I NR is typically 2.0-3.0. Target INR must be clinically individualized. ID Date Data Source [id number] 04/26/2020 09:54:49 PM [facility] Value Range Interpretation Code Description Data Beronica rce(s) Supporting Document(s) Glucose [Mass/volume] in Capillary blood by Glucometer 75 mg/dL 70- 140 [facility] ID Date Data Source [id number] 04/26/2020 08:48:12 PM [facility] Value Range Interpretation Code Description Data Beronica rce(s) Supporting Document(s) Lactate [Moles/volume] in Serum or Plasma 2.2 mmol/l 0.5-2.2 [facility] ID Date Data Source [id number] 04/26/2020 04:58:16 PM [facility] Value Range Interpretation Code Description Data Beronica rce(s) Supporting Document(s) Glucose [Mass/volume] in Capillary blood by Glucometer 77 mg/dL 70- 140 [facility] ID Date Data Source [id number] 04/26/2020 04:48:01 PM [facility] Name Value Range Interpretation Code Description Data Beronica rce(s) Supporting Document(s) Albumin [Mass/volume] in Serum or Plasma by Bromocresol green (BCG) dye binding method 2.6 g/dL 3.5-5.2 [facility] Bilirubin.total [Mass/volume] in Serum or Plasma 14.8 mg/dL <1.2 H [facility] Bilirubin.direct [Mass/volume] in Serum or Plasma 9.8 mg/dL <0.3 H [facility] Alkaline phosphatase [Enzymatic activity/volume] in Serum or Plasma 180 U/L 40-129 H [facility] Aspartate aminotransferase [Enzymatic activity/volume] in Serum or Plasma 321 U/L <40 [facility] Alanine aminotransferase [Enzymatic activity/volume] in Seru m or Plasma 63 U/L <41 H [facility] Protein [Mass/volume] in Serum or Plasma 7.2 g/dL 6.4-8.3 [facility] ID Date Data Source [id number] 04/26/2020 04:48:01 PM [facility] Value Range Interpretation Code Description Data Beronica rce(s) Supporting Document(s) Magnesium [Mass/volume] in Serum or Plasma 2.0 mg/dL 1.6-2.6 [facility] ID Date Data Source [id number] 04/26/2020 04:48:01 PM [facility] Value Range Interpretation Code Description Data Beronica rce(s) Supporting Document(s) Bicarbonate [Moles/volume] in Serum 27 mmol/L 22-29 [facility] Chloride [Moles/volume] in Serum or Plasma 96 mmol/L 98-107 L [facility] Creatinine [Mass/volume] in Serum or Plasma 0.58 mg/dL 0.70-1.20 L [facility] Icteric Glucose [Mass/volume] in Serum or Plasma 80 mg/dL 70-140 [facility] Potassium [Moles/volume] in Serum or Plasma 3.4 mmol/L 3.4-5.1 [facility] Sodium [Moles/volume] in Serum or Plasma 133 mmol/L 136-145 L [facility] Urea nitrogen [Mass/volume] in Serum or Plasma 2 mg/dL 6-20 L [facility] Anion gap 3 in Serum or Plasma 11 mmol/L 8-15 [facility] Osmolality of Serum or Plasma by calculation 271 mosm/kg 275-300 L [facility] Creatinine/Urea nitrogen [Mass Ratio] in Serum or Plasma 4 [facility] Calcium [Mass/volume] in Serum or Plasma 7.5 mg/dL 8.6-10.0 L [facility] Glomerular filtration rate/1.73 sq M pre dicted among non-blacks [Volume Rate/Area] in Serum or Plasma by Creatinine-based formula (MDRD) >6 0 [facility] Glomerular filtration rate/1.73 sq M pre dicted among blacks [Volume Rate/Area] in Serum or Plasma by Creatinine-based formula (MDRD) >60 [facility] ID Date Data Source [id number] 04/26/2020 05:40:59 PM EDT [facility] Name Value Range Interpretation Code Description Data Beronica rce(s) Supporting Document(s) Leukocytes [#/volume] in Blood by Automated count 4.7 10*3/uL 4-10 [facility] Erythrocytes [#/volume] in Blood by Automated count 3.03 10*6/uL 4.6- 6.1 L [facility] Hemoglobin [Mass/volume] in Blood 10.9 g/dL 13.5-18 L [facility] Hematocrit [Volume Fraction] of Blood by Automated count 31.4 % 4 1-53 L [facility] Erythrocyte mean corpuscular volume [Entitic volume] b y Automated count 103.4 fL 80-96 H [facility] Erythrocyte mean corpuscular hemoglobin [Entitic mass] by Automated count 36.0 pg 27-33 H [facility] Erythrocyte mean corpuscular hemoglobin concentration [Mass/volume] by Automated count 34.8 g/dL 32.0-36.0 [facility] E[facility] distribution width [Ratio] by Automated count 16.1 % 11.5-14.5 H [facility] Platelets [#/volume] in Blood by Automated count 43 10*3/uL 150-400 L [facility] ConfirmedGIANT PLATELETS PRESENT Differential cell count method - Blood [facility] Neutrophils/100 leukocytes in Blood by Automated count 70 % [facility] Lymphocytes/100 leukocytes in Blood by Automated count 19 % [facility] Monocytes/100 leukocytes in Blood by Automated count 8 % [facility] Neutrophils [#/volume] in Blood by Automated count 3.29 10*3/uL 1.8-7 .0 [facility] Lymphocytes [#/volume] in Blood by Automated count 0.89 10*3/uL 1.2-4 .0 L [facility] Monocytes [#/volume] in Blood by Automated count 0.38 10*3/uL 0-0.8 [facility] Band form neutrophils/100 leukocytes in Blood by Manual count 3 % [facility] Band form neutrophils [#/volume] in Blood by Manual count 0.14 10*3 /uL 0-0.6 [facility] Macrocytes [Presence] in Blood by Light microscopy [facility] Anisocytosis [Presence] in Blood by Light microscopy [facility] Target cells [Presence] in Blood by Light microscopy [facility] ID Date Data Source [id number] 04/26/2020 04:35:01 PM [facility] Value Range Interpretation Code Description Data Beronica rce(s) Supporting Document(s) Lactate [Moles/volume] in Serum or Plasma 2.7 mmol/l 0.5-2.2 H [facility] ID Date Data Source [id number] 04/26/2020 12:29:13 PM [facility] Value Range Interpretation Code Description Data Beronica rce(s) Supporting Document(s) Glucose [Mass/volume] in Capillary blood by Glucometer 104 mg/dL 70- 140 [facility] ID Date Data Source [id number] 04/26/2020 12:03:10 PM [facility] Value Range Interpretation Code Description Data Beronica rce(s) Supporting Document(s) Prothrombin time (PT) 25.9 s 12.5-14.9 H [facility] INR in Platelet poor plasma by Coagulation assay 2.32 [facility] Routine intensity oral anticoagulation I NR is typically 2.0-3.0. Target INR must be clinically individualized. ID Date Data Source [id number] 04/26/2020 11:33:51 AM [facility] Value Range Interpretation Code Description Data Beronica rce(s) Supporting Document(s) Ammonia [Moles/volume] in Plasma 15 umol/L 16-60 L [facility] Icteric ID Date Data Source [id number] 04/26/2020 11:30:31 AM [facility] Value Range Interpretation Code Description Data Beronica rce(s) Supporting Document(s) Lactate [Moles/volume] in Serum or Plasma 3.6 mmol/l 0.5-2.2 H [facility] ID Date Data Source [id number] 04/26/2020 11:26:50 AM [facility] Value Range Interpretation Code Description Data Beronica rce(s) Supporting Document(s) Color of Urine [facility] Clarity of Urine [facility] Specific gravity of Urine by Refractometry automated 1.012 1.003 -1.030 [facility] pH of Urine by Automated test strip 6.0 5.0-8.0 [facility] Protein [Mass/volume] in Urine by Automated test strip Neg [facility] Glucose [Mass/volume] in Urine by Automated test strip Neg [facility] Ketones [Mass/volume] in Urine by Automated test strip Neg [facility] Bilirubin.total [Presence] in Urine by Automated test strip Negative [facility] False-positive results may occur with ce rtain food additives or medications. Hemoglobin [Presence] in Urine by Automated test strip Neg ative [facility] Leukocyte esterase [Presence] in Urine by Automated test strip Negative [facility] Nitrite [Presence] in Urine by Automated test strip Negati ve [facility] Leukocytes [#/area] in Urine sediment by Automated count 5 /HPF 0 -5 [facility] Erythrocytes [#/area] in Urine sediment by Automated count 0-3 [facility] Bacteria [#/area] in Urine sediment by Automated count Non e A [facility] ID Date Data Source [id number] 04/26/2020 09:46:29 AM [facility] Value Range Interpretation Code Description Data Beronica rce(s) Supporting Document(s) Potassium [Moles/volume] in Urine 27.7 mmol/L [facility] ID Date Data Source [id number] 04/26/2020 09:46:29 AM [facility] Value Range Interpretation Code Description Data Beronica rce(s) Supporting Document(s) Sodium [Moles/volume] in Urine 30 mmol/L [facility] ID Date Data Source [id number] 04/26/2020 11:53:12 AM [facility] Value Range Interpretation Code Description Data Beronica rce(s) Supporting Document(s) Osmolality of Urine 227 mosm/kg 300-1000 L [facility] ID Date Data Source [id number] 04/26/2020 08:38:10 AM [facility] Name Value Range Interpretation Code Description Data Beronica rce(s) Supporting Document(s) Glucose [Mass/volume] in Capillary blood by Glucometer 90 mg/dL 70- 140 [facility] ID Date Data Source [id number] 04/26/2020 08:10:25 AM [facility] Name Value Range Interpretation Code Description Data Beronica rce(s) Supporting Document(s) Leukocytes [#/volume] in Blood by Automated count 4.7 10*3/uL 4-10 [facility] Erythrocytes [#/volume] in Blood by Automated count 3.10 10*6/uL 4.6- 6.1 L [facility] Hemoglobin [Mass/volume] in Blood 11.3 g/dL 13.5-18 L [facility] Hematocrit [Volume Fraction] of Blood by Automated count 32.0 % 4 1-53 L [facility] Erythrocyte mean corpuscular volume [Entitic volume] b y Automated count 103.2 fL 80-96 H [facility] Erythrocyte mean corpuscular hemoglobin [Entitic mass] by Automated count 36.4 pg 27-33 H [facility] Erythrocyte mean corpuscular hemoglobin concentration [Mass/volume] by Automated count 35.2 g/dL 32.0-36.0 [facility] distribution width [Ratio] by Automated count 16.0 % 11.5-14.5 H [facility] Platelets [#/volume] in Blood by Automated count 45 10*3/uL 150-400 L [facility] Differential cell count method - Blood [facility] Neutrophils/100 leukocytes in Blood by Automated count 63 % [facility] Lymphocytes/100 leukocytes in Blood by Automated count 26 % [facility] Monocytes/100 leukocytes in Blood by Automated count 9 % [facility] Eosinophils/100 leukocytes in Blood by Automated count 1 % [facility] Basophils/100 leukocytes in Blood by Automated count 1 % [facility] Neutrophils [#/volume] in Blood by Automated count 2.97 10*3/uL 1.8-7 .0 [facility] Lymphocytes [#/volume] in Blood by Automated count 1.23 10*3/uL 1.2-4 .0 [facility] Monocytes [#/volume] in Blood by Automated count 0.44 10*3/uL 0-0.8 [facility] Eosinophils [#/volume] in Blood by Automated count 0.02 10*3/uL 0-0.5 [facility] Basophils [#/volume] in Blood by Automated count 0.03 10*3/uL 0-0.2 [facility] Nucleated erythrocytes/100 leukocytes [Ratio] in Blood by Automated count 0 /100{WBCs} 0-0 [facility] ID Date Data Source [id number] 04/26/2020 08:38:01 AM [facility] Name Value Range Interpretation Code Description Data Beronica rce(s) Supporting Document(s) Albumin [Mass/volume] in Serum or Plasma by Bromocresol green (BCG) dye binding method 2.6 g/dL 3.5-5.2 L [facility] Bilirubin.total [Mass/volume] in Serum or Plasma 14.1 mg/dL <1.2 H [facility] Bilirubin.direct [Mass/volume] in Serum or Plasma 9.8 mg/dL <0.3 H [facility] Alkaline phosphatase [Enzymatic activity/volume] in Serum or Plasma 193 U/L 40-129 H [facility] Aspartate aminotransferase [Enzymatic activity/volume] in Serum or Plasma 349 U/L <40 H [facility] Alanine aminotransferase [Enzymatic activity/volume] in Seru m or Plasma 72 U/L <41 H [facility] Protein [Mass/volume] in Serum or Plasma 7.3 g/dL 6.4-8.3 [facility] ID Date Data Source [id number] 04/26/2020 08:38:01 AM [facility] Name Value Range Interpretation Code Description Data Beronica rce(s) Supporting Document(s) Bicarbonate [Moles/volume] in Serum 26 mmol/L 22-29 [facility] Chloride [Moles/volume] in Serum or Plasma 92 mmol/L 98-107 L [facility] Creatinine [Mass/volume] in Serum or Plasma 0.55 mg/dL 0.70-1.20 L [facility] Icteric Glucose [Mass/volume] in Serum or Plasma 88 mg/dL 70-140 [facility] Potassium [Moles/volume] in Serum or Plasma 4.2 mmol/L 3.4-5.1 [facility] Sodium [Moles/volume] in Serum or Plasma 129 mmol/L 136-145 L [facility] Urea nitrogen [Mass/volume] in Serum or Plasma 2 mg/dL 6-20 L [facility] Anion gap 3 in Serum or Plasma 11 mmol/L 8-15 [facility] Osmolality of Serum or Plasma by calculation 264 mosm/kg 275-300 L [facility] Creatinine/Urea nitrogen [Mass Ratio] in Serum or Plasma 4 [facility] Calcium [Mass/volume] in Serum or Plasma 7.9 mg/dL 8.6-10.0 L [facility] Glomerular filtration rate/1.73 sq M pre dicted among non-blacks [Volume Rate/Area] in Serum or Plasma by Creatinine-based formula (MDRD) >6 0 [facility] Glomerular filtration rate/1.73 sq M pre dicted among blacks [Volume Rate/Area] in Serum or Plasma by Creatinine-based formula (MDRD) >60 [facility] ID Date Data Source [id number] 04/26/2020 08:38:01 AM [facility] Name Value Range Interpretation Code Description Data Beronica rce(s) Supporting Document(s) Magnesium [Mass/volume] in Serum or Plasma 1.5 mg/dL 1.6-2.6 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/salary and wage administrator/meFxfvxsQ7EamAdNb5RHt/YJUdBB2MKn0KYayLfk7Gs7TAfHYr+7ojmuD96/S5mH4 mjh1JZH11q/rjvMbOx7blJurPIJ2BCXsN+CMTs6kgu 9C+veneer department manager+0Bvd3aNAhaln5LkgfTcY+lmgQX54rj5HmJYTdLahfDgzphHW5DbAJ2SpdnyxoE3FNm0QHa74+ [file] uxacadaC2Q6aofq2zra2rwp7EovktBldJowwe9J8+b sq2s3CCMbGRP+xqTIYFd4mfk5MLmVakZuixcrpt+ZDrl+rrKZfm7WrMzjFPq2nc4n1K358wAy5hNUy9c Ua2LkYxLOGGXxanm7SKfRjV6jtNWUoiHLpyqTB7U/5hI9dSytDVmTR18MZqtAeQk5Psr/iZT8v+83C2O /0ez53u7GFWdt7nau9b049G5sL07ZsoCJfLFxnapQD UcIcJIdEx0vOOmafWE2zyTI29mdzJ4RREe+0c0Xzmipn4unrHcUoE5OcmOugNdxjvRcighBmB0vICwvz cBqiTymP3bT5MbA5jJX56d1UjrgpJUoutjpox2acWUdvbDTnRA1Oksc2nYoiNXytvbSMInW9tqN55qc9 6N3eeR+7ekn9WR16sutmvse0ZbGS22TbKahaiD/bi9 7tV+2fkwHwLPnuxyHC3KAj9VR0OG5uwjm+Hb3WymX7wRAnSI7X+ut0AEomyuC/26/xeItNkoe0OtVU8H h6aNzVrHTf+9844fPyhv/tf/4t66ygti3ikd3mgB/D/NTLM+k9KdPHTy+b40iMC26aU7Q+SuX+TfZTKe fphn/zzizisNvJaqxo91+/jzX5r5n+xx+cv1VDSf0q hC2d7Wws5zdf74dT3r+aZhEo5shZ2op0fKbSImGl5Awb64b6glHJwBZr7NalskWbTFGXdbi5J3P/Igcj cfjPY5heyDdTENGsF6bvRsWVPjl/1SlyR2l/2bYDDqAVOvJHuz9x9Er73r+VALET PARKER+KlA9JFgMZ7mFEYplcy [file] Yv57NBc30yPPP8sxp1FM10L/+1s3W1/dv+k41d/FK22x99w413lu0zog7I45h8427/8hzTF69Ahfhidf DzqedDzpeNHxovtuuu9+j59sA9/gdFfD1WNPFn0rrF dC5NCQM/82kza2zckelmvumEygfTVatBZTz5aOcfn+1d+CWlF6j51SVg4x+ZSdu19uNl7bJR8xoOrq3F 6D3nfQ+y3358CwW+p8C80uuRsr0N4ia43u1E9sLz4hco/w91d/d+wy3KMjvxoUY/56zsVHccleIdeff2 d8Zfk1wnjxVutgwAplxvQfZNOKL4bM6ByquGUdw5/K yQl27Ixt8512daSFAKhcwQECUCusrMp2ogU433t7Oq65Yx963V8kjQrtoFlQsFx9XH26/sULu/XV6uPl 39+bju/vAEBW1O+/67S+un/T8fndt/UV/l50/Fvbn2sD+7a+al/Cswv7pPszS9KvzZWvBIbFN05XQwv0 qo/vh/7+yoN//dFufYW/Dk7fkSiG8QeTGv9xbRithB Fxp+KQl1ULCn5OGp8kgeEB/DiBdaqQ73g2lr8D+gp/f/IWrd2kRBy+r5+Pvrp/r++7xPq+Ouq08rg9Fc ilns249/jqY+ur+ki2vqg4ChzxZ06NI/49O/sn8Oa25a065Dm0aw8IkZ511fS8u7gkvU6UAPB83v/93c fP+287b8py//o8QX40JsT80rtge4cv1bZW8gy6D4a+ NpDjtf77KxucCv4/yo5669pm47eBs68e1756nzp2t+dbXzn+/voLGr/pZC32BQ0Kb57+p6g/KuqPivqj wj08w83PyAk5Vq993jriy/hc45QRNsl+8AeUpjShHmypddo6Y/W/pK/5RfwXuixHZdpQf2e/nbQ49QEa Uvc9I70KJnpGld6NF2db/kv5bM2fm2/Nuñez/PxQXtzPn [file] Edgardo+7YxS9Hgrr9eIJ4dg++5X9ng6TaiXB1BH395iIO/3fsSi+m5P+6X/sLW05o8JbC2m7udWt7nzbpG5 ynaj4hjzl72gZRzjMJWfvg67X519kP4U+1GIWo3Oyi1o2yPgk+U45bveLOiQdt821Z2/s2ircjzeD/7K 4BH5S3Tkpkj5x9QQDI0XHmndrIf7k258kdb60B4ylC C7srPfx9/87wCEzz419/jlwbOcXDp/TdZmWm8NsCrFU+w332E7xMZinF7pmNXvbCU9nmfuxa72GBc0Nl aNFkhda0p+XV0rToNUlV0+WpOQQ5yKfB6ExuepOyvpC1RN4r6OPldl2wgTCbnpuD9t36bkDjmRgYPf8F cciSSYJCISOQjOSUQFyZgrqPOU1pvOBC3WxsLONmsb bZ3C3f1StSlmbarN7VbH8llyDCgMj8MQfWTe8+nNQ2tIo3CrRNvHPmM+kOgtzXZPmgQx7HuwtsMFwVHr SIDING APPLICATOR+yJz7I/KaoGXkfi5Tu0yiqgXlx5vDGqaZT2DTlnSg842BxF0nO8z3+1mk+LwwW62xbNEc73n15w+t [file] +P3jK8250WhwS5/49EMNH2073owefYKwmB9s+KN3e7 TmyTtzjaFb20/67k4Xc90//wgNQ0r34Fue/llnF9Ng77nrdcsmc7++/hovfpF9G47+/larsen/k/h0S223+O JP54w0hRcy0d/5sq94ossmO5a/9fbF53//E351niQaC/o8m4xhW95awv+/eX/T919+9/bhdx++/OrDL7 /64q/081n2ke8L65/+4V/++Marichuy/ff/Pb//t/7x9/q9/ +OG//9sf/pjb1d87ku/+4Ye33//d2z/+zYvV9x//6w7FH1ruG1uqwV9Ty5t/2aM63Gv/mN2McfPRljS/ 9Kdf/Pdut9r5VRi3/KffAR+vVYMHt+vX/xfgcXgecP/a4IkK9NMh9J14n7/GHAiAdhovryw8qvDw2Zs6 /t5Q3/Np7JW3d29/+Pj9v3z/l7+m6qjy0q8a84f0+P brD7/6r19+++G7L3/0rU+Gnv6/xeDvsq4zlk08xqch78o1T52bdvnwYbzzKlMj2a3BsmEdud/Df/zd21 /+8B/f/+b556MsS0zDle4aF//+25jorIN89w0w6GmQy1/84T++/8v/+sO//SUf7rP382t/zJ3G4q+8+4 24b0uu0a72c04/+x///MNPb3/dpQ4s8naHE/uHT7/4 h0//xG+9LwU+sE2HrfZKtb3ZK4lUe3ub/iXfy5ridI5CA9/qxr79+niuk6a0j//+/t//b716khb7dd2d D7//+SvJzHv/c3n7P3/5x7/9ya/v7/CbP/hv4u2Lmta1G/4oe4DtTz5++c9/+nz72DeKE+53/erP//SZ gYnhcwFUPA36z+//6V9/+OM/hdnzq94imrL7/uS3h3 Ejf/vv//QfNE33k40/+fe/dbj24io//NQzl5++5q6umkAT48+++4zzyWuO+v//5QES5RnYjFmlD/7792 /y9ud/qgoFhVJiyUa7b3320q7vIbIh2xr/+vTZ2/Zd2D0n9jDKSj9/6zTW63F9RmMdL0Ng8sByq4/57d lgs604RX38kEb8de7J1sQBJukmzoTofLZcOP5PXZ7u s6KbSsJ0SIImm5QaIUgqYRr9hEVrZLtgroTpd2AxjyuhF1Ufh6AnImWoFVDrGuEcFvn4KSUfOgS7kCAb OfYpJCRvM5ZdEYFvJlF0SfRvUJEQEW0RRELfigXkPyIjIVM+FwPtSZ3akrpwEVSkl5VgNBpiARjlRIVu G5D1vObsSDRpN8OcrJ84XIHqO3PycbY6UQF1JTRsTm AvTGFzdCAxOSAwIFI+HlOgMD8lcxxoRVZgo3BnFXrdDTX8fL9uLGdPPPVUPLfRGLfoIfP7z97jtnUUCF RlYKJgMT4IkwGdeVtzjuYthYLuFOO4SwSrJXC7XIUvCiT3VFMICRWyNBUvODQgBMLxM3OhjEojNDyFMH SMOOeTDTtjRnQxk6Z7NJPbhqBAYIAPTYjOFQAFD97Q ASFeXTq2WZUsXHQmE8HzhcNnhKPmOIDSQGxdPtuvAKVmaW4iyBwrV0SyXVA9x3CyOD0QE7BsKAEpLIQK HHO1t5PsEFKizlsioobqCsBgSJVuBSYzNTNdLF4Dov2tuLPkzsRrCGWRYKxfRwwxUR6enTkpffyhR4Lj aWVzKSA+NsCpNU8lgc3+TtWvSHTcKnp8XCYyGMmmQX LvAGGdVEEiV9rrSDJeAwCfZONyIjXlCE6Gv0OloQWdUl6fzxYbKyrRqROaIdqrTAUvHMPbTOCsGpINRX XfSSXsDZIrBQR6FGGxRFJcTXwoYMXcFRM9SspbOXHpECOrDH5tStTxXWBxBqLrIueiVPFySOVksjFXZQ QeNXA2HQMwJxLhGEQjQUNbUSkdTDFfISDyCVHpQXB9 HUU6MRZkGwHrLSIcVYHhJEAfMMQsXREzugYRBKGaOODxRSX3IVNiPIOhCIXuTUlyYNEoZHVrSBrvPZXa TRUcTI8rAkSnRMNcYKNcPUfbYNGmANQumcQMQKBqCOHiQLOxZWZkFGNqCISfYTgtJBOzUXVjTIAtWVWx ICHxQB2vQlPpQFYfNHQ5ADNgDIYzYQTnihQAQVHyAM OdLCf1XVFqFRQeFBXfONjpCSCxQIBpPCM7UXObFRIlFW4kYlCgOTQvODB9InXrWSMmCYGrfxOTEBFtOQ VhLEH6CiWoIMUeEUYwULljLHJzKHTeEJpvPTXzIMIdWQ0fLkZlVROxVHHsSIjlAGTiJNDhakOVQXCuGO CaXXDvNlMfTMYuMSRdUIcwPYLrUVAnDTA2WKTbJQYd AG1tWjSgEJDeIBP5TIekSKPgGSKoxfQYXHAmXTHaPVfoFKVoZSKbBORhZWahGDXuIWWfORQ4VZJgUTJb IH1tWmTlYCVdWQUhQWDwGfE2EcInRjMZgLHaoDncgsl4VVxpH4g4SOUnBKgdWF0kwdSeTEMwCpywRb3y zCG0EAChAqaWLc8Ag0SrecD8jdWiEmT3JCT5AxRhFL0E ID Date Data Source [id number] 04/25/2020 08:50:41 PM EDT [facility] Name Value Range Interpretation Code Description Data Beronica rce(s) Supporting Document(s) Glucose [Mass/volume] in Capillary blood by Glucometer 131 mg/dL 70- 140 [facility] ID Date Data Source [id number] 04/25/2020 05:56:41 PM EDT [facility] Name Value Range Interpretation Code Description Data Beronica rce(s) Supporting Document(s) Leukocytes [#/volume] in Blood by Automated count 3.9 10*3/uL 4-10 L [facility] Erythrocytes [#/volume] in Blood by Automated count 3.16 10*6/uL 4.6- 6.1 L [facility] Hemoglobin [Mass/volume] in Blood 11.3 g/dL 13.5-18 L [facility] Hematocrit [Volume Fraction] of Blood by Automated count 32.4 % 4 1-53 L [facility] Erythrocyte mean corpuscular volume [Entitic volume] b y Automated count 102.7 fL 80-96 H [facility] Erythrocyte mean corpuscular hemoglobin [Entitic mass] by Automated count 35.9 pg 27-33 H [facility] Erythrocyte mean corpuscular hemoglobin concentration [Mass/volume] by Automated count 34.9 g/dL 32.0-36.0 [facility] distribution width [Ratio] by Automated count 16.1 % 11.5-14.5 H [facility] Platelets [#/volume] in Blood by Automated count 52 10*3/uL 150-400 L [facility] Differential cell count method - Blood [facility] Neutrophils/100 leukocytes in Blood by Automated count 71 % [facility] Lymphocytes/100 leukocytes in Blood by Automated count 22 % [facility] Monocytes/100 leukocytes in Blood by Automated count 7 % [facility] Eosinophils/100 leukocytes in Blood by Automated count 0 % [facility] Basophils/100 leukocytes in Blood by Automated count 0 % [facility] Neutrophils [#/volume] in Blood by Automated count 2.72 10*3/uL 1.8-7 .0 [facility] Lymphocytes [#/volume] in Blood by Automated count 0.86 10*3/uL 1.2-4 .0 L [facility] Monocytes [#/volume] in Blood by Automated count 0.28 10*3/uL 0-0.8 [facility] Eosinophils [#/volume] in Blood by Automated count 0.01 10*3/uL 0-0.5 [facility] Basophils [#/volume] in Blood by Automated count 0.02 10*3/uL 0-0.2 [facility] Nucleated erythrocytes/100 leukocytes [Ratio] in Blood by Automated count 0 /100{WBCs} 0-0 [facility] ID Date Data Source [id number] 04/25/2020 06:07:27 PM EDT [facility] Name Value Range Interpretation Code Description Data Beronica rce(s) Supporting Document(s) Albumin [Mass/volume] in Serum or Plasma by Bromocresol green (BCG) dye binding method 2.6 g/dL 3.5-5.2 [facility] Bilirubin.total [Mass/volume] in Serum or Plasma 13.5 mg/dL <1.2 H [facility] Bilirubin.direct [Mass/volume] in Serum or Plasma 9.4 mg/dL <0.3 H [facility] Alkaline phosphatase [Enzymatic activity/volume] in Serum or Plasma 200 U/L 40-129 H [facility] Aspartate aminotransferase [Enzymatic activity/volume] in Serum or Plasma 375 U/L <40 H [facility] Alanine aminotransferase [Enzymatic activity/volume] in Seru m or Plasma 76 U/L <41 H [facility] Protein [Mass/volume] in Serum or Plasma 7.5 g/dL 6.4-8.3 [facility] ID Date Data Source [id number] 04/25/2020 06:07:27 PM T [facility] Name Value Range Interpretation Code Description Data Beronica rce(s) Supporting Document(s) Bicarbonate [Moles/volume] in Serum 23 mmol/L 22-29 [facility] Chloride [Moles/volume] in Serum or Plasma 89 mmol/L 98-107 L [facility] Creatinine [Mass/volume] in Serum or Plasma 0.41 mg/dL 0.70-1.20 L [facility] Icteric Glucose [Mass/volume] in Serum or Plasma 112 mg/dL 70-140 [facility] Potassium [Moles/volume] in Serum or Plasma 4.0 mmol/L 3.4-5.1 [facility] Sodium [Moles/volume] in Serum or Plasma 126 mmol/L 136-145 L [facility] Urea nitrogen [Mass/volume] in Serum or Plasma 2 mg/dL 6-20 L [facility] Anion gap 3 in Serum or Plasma 14 mmol/L 8-15 [facility] Osmolality of Serum or Plasma by calculation 259 mosm/kg 275-300 L [facility] Creatinine/Urea nitrogen [Mass Ratio] in Serum or Plasma 5 [facility] Calcium [Mass/volume] in Serum or Plasma 7.7 mg/dL 8.6-10.0 L [facility] Glomerular filtration rate/1.73 sq M pre dicted among non-blacks [Volume Rate/Area] in Serum or Plasma by Creatinine-based formula (MDRD) >6 0 [facility] Glomerular filtration rate/1.73 sq M pre dicted among blacks [Volume Rate/Area] in Serum or Plasma by Creatinine-based formula (MDRD) >60 [facility] ID Date Data Source [id number] 04/25/2020 06:07:27 PM [facility] Name Value Range Interpretation Code Description Data Beronica rce(s) Supporting Document(s) Magnesium [Mass/volume] in Serum or Plasma 1.5 mg/dL 1.6-2.6 L [facility] ID Date Data Source [id number] 04/25/2020 06:00:25 PM [facility] Value Range Interpretation Code Description Data Beronica rce(s) Supporting Document(s) Lactate [Moles/volume] in Serum or Plasma 2.4 mmol/l 0.5-2.2 H [facility] ID Date Data Source [id number] 04/25/2020 05:17:39 PM [facility] Value Range Interpretation Code Description Data Beronica rce(s) Supporting Document(s) Glucose [Mass/volume] in Capillary blood by Glucometer 92 mg/dL 70- 140 [facility] ID Date Data Source [id number] 04/25/2020 12:14:37 PM [facility] Value Range Interpretation Code Description Data Beronica rce(s) Supporting Document(s) Glucose [Mass/volume] in Capillary blood by Glucometer 89 mg/dL 70- 140 [facility] ID Date Data Source [id number] 04/30/2020 12:14:10 PM [facility] Service Cmnt XXX-Imp : Specimen source n ot given.Microorganism XXX Cult : No growth 5 days Name Value Range Interpretation Code Description Data Beronica rce(s) Supporting Document(s) ID Date Data Source [id number] 04/25/2020 10:49:36 AM [facility] Value Range Interpretation Code Description Data Beronica rce(s) Supporting Document(s) Gamma glutamyl transferase [Enzymatic activity/volume] in Serum or Plasma 457 U/L 8-61 H [facility] ID Date Data Source [id number] 04/25/2020 08:24:33 AM EDT [facility] Name Value Range Interpretation Code Description Data [facility](s) Supporting Document(s) Glucose [Mass/volume] in Capillary blood by Glucometer 76 mg/dL 70- 140 [facility] ID Date Data Source [id number] 04/25/2020 07:25:00 AM [facility] CT ABDOMEN PELVIS WITH CONTRAST [id number] AL RESULTInterpreted by:DANDRE RadfordROCEDURE INFORMATION: Exam: CT [...] clinical indication); or iterative reconstruction. Contrast material: [id number]; Contrast volume: 100 ml; Contrast route: INTRAVENOUS [...] Name Value Range Interpretation Code Description Data [facility] rce(s) Supporting Document(s) ID Date Data Source [id number] 04/25/2020 07:22:27 AM EDT [facility] Name Value Range Interpretation Code Description Data Beronica rce(s) Supporting Document(s) History and Physical [facility] CCSLJv2gMqLJFlCz93/AJJstISXmq3GkZIngSHj9PSdpRYUcW5NgKXW6xB8zFLN1UMpAAcYnVxZqWES7 lbm QkWccVNwElIKOsKumCRiOxCDzfKkapxMAiMC1JtUZ1JNRxU58sUJEjYJBzN0KbTOH7AQi+Gp6OBVMuqC IfCO4EImaY3U2Yl5mHZP0YPf4NIQXbewfgVDQ03LHQkisXNDuXRZl0DgiKhDFZwurFI//6gAAhqFvwZz HpgWsE9Dq0S1V0t7hr7Qtgei/vT7UV+o7jqOV/t/8M Z7VTTmvyh8Cdm869pf96B8eSmMAycQspY3C/uvr+B89OVO+Bh4VH0Wj8+yLSVFOkxbVPuE4Zz741Awi/ CS8NG7Ryh3EiHRxHfOYNVmj1qd4JyaCrTnMxBj9QIB/SOTXs97gL796LJfUK6aFDHHv8/SNCwX4+TgEe 6VBN5UED3QioIAJaOHcZz8P+BQMKagq+f5zBz0/Uu9 QzyY7T73ckaBp/TLQPwkLN7TiKci9WYYcKpneaWcOv81gpl3FXu3WthEo5F5sbQeutcK7RuR4M4Y9s5k zu+YiJlsSwCyrAckc0uvAMsxyAauY+1CUNOLSTz7rVvJzcZuxZFcr708nm9tomisv52AdleaM7p7k5i/ 6IBrRwVTOGTCMyt5xHq7ENJHEKr9T/NFFv1Zx2WMCJ [file] ICAgICAgICAgICAgICAgICAgICAgICAgICAgICAgIC AgICAgICAgICAgICAgICAgICAgICAgICAgICAgICAgICAgICAgICAgICAgICANCiAgICAgICAgICAgIC AgICAgICAgICAgICAgICAgICAgICAgICAgICAgICAgICAgICAgICAgICAgICAgICAgICAgICAgICAgIC AgICAgICAgICAgICAgICAgICAgICAgICAgICANCiAg ICAgICAgICAgICAgICAgICAgICAgICAgICAgICAgICAgICAgICAgICAgICAgICAgICAgICAgICAgICAg ICAgICAgICAgICAgICAgICAgICAgICAgICAgICAgICAgICAgICANCiAgICAgICAgICAgICAgICAgICAg ICAgICAgICAgICAgICAgICAgICAgICAgICAgICAgIC AgICAgICAgICAgICAgICAgICAgICAgICAgICAgICAgICAgICAgICAgICAgICAgICANCiAgICAgICAgIC AgICAgICAgICAgICAgICAgICAgICAgICAgICAgICAgICAgICAgICAgICAgICAgICAgICAgICAgICAgIC AgICAgICAgICAgICAgICAgICAgICAgICAgICAgICAN CiAgICAgICAgICAgICAgICAgICAgICAgICAgICAgICAgICAgICAgICAgICAgICAgICAgICAgICAgICAg ICAgICAgICAgICAgICAgICAgICAgICAgICAgICAgICAgICAgICAgICANCiAgICAgICAgICAgICAgICAg ICAgICAgICAgICAgICAgICAgICAgICAgICAgICAgIC AgICAgICAgICAgICAgICAgICAgICAgICAgICAgICAgICAgICAgICAgICAgICAgICAgICANCiAgICAgIC AgICAgICAgICAgICAgICAgICAgICAgICAgICAgICAgICAgICAgICAgICAgICAgICAgICAgICAgICAgIC AgICAgICAgICAgICAgICAgICAgICAgICAgICAgICAg ICANCiAgICAgICAgICAgICAgICAgICAgICAgICAgICAgICAgICAgICAgICAgICAgICAgICAgICAgICAg ICAgICAgICAgICAgICAgICAgICAgICAgICAgICAgICAgICAgICAgICAgICANCiAgICAgICAgICAgICAg ICAgICAgICAgICAgICAgICAgICAgICAgICAgICAgIC AgICAgICAgICAgICAgICAgICAgICAgICAgICAgICAgICAgICAgICAgICAgICAgICAgICAgICANCjw/eH RzE0urwMDcnvA6X0kaCl2GWk1DZH8se8TeZKWbMGapjxHjRxhHHlYgUKBvYkvZDfa5AEakGP9LrWInJ5 NtN2OzPPbrZG8HNUJwYWQklKHwJMTiPXXdUfN2QFOx ZEgvFT0KkZYwVBvaKGObHYHoSxTyMGDeODXpYHHvPXVqMIAIUNUhOOYoFlRdIFYoZMSyTD8FUCXhU537 uoBcRt8AFv2POuMmBG2bbr8IWyZwEMXsHdlSHsb6QVfoHS8PtQQkvUVlZuJfCERGIpAyV3fqo6IxEzLh SALZGXtmAY7Gm2LldXIjULo+Nh3MET3zn0AfTGvgTs AvYO8mlx5EHKdGDxAaG5EllFfrCKtrXITsrGAQiTCrFNfiYWilsXApzUTuDA4VNZP4RVvcOL5sGVJjED JpPlZ1JOHGWE9IIDZoEPThhBQnBQJuEWMKNZ4TTSxhVMI8MZRrzdZmnLCyCGrkMN4PZFKvbcMcMvGlJP BSDQo+Tu0FKT5xj9CqLPnhUMCbHG2uih6EMJxJXbBv K9W6fCFgY4O6DIlwJl4DXRJuGZTxAtFqIMBWWCvnZN1VIT4jbyP7TD8TyRMxYFIeWKPifENqRGx1A85p yCNzJNnbYG1VPCQ+Claudia+Az3ZOYSvFCEaCNRxDcXaWWWZKqPpN8VnA2SAm2IrI5YqCP11nUzkzwBwUJpf DC9HPS6xHEHmYIMBOU0TpQKfvH9sgwBkBpDdUJQRGa QvA17qnOMsRGXwRASkKMCxHf1WFYZyN4WfkePbvXjgyuOjHSOmVSMYCY2JIGjvtcRtkNYmnKdqGI98jP bcKH1WLg5HWyQyBB8xnv4HqZNxFi4LUFEhMA4UAYAxKYAhPLMySPN5ANKcYoWrWIqoEKOlBMNwZJY3YM LhUXKmNL0XJiNsXPYkVfP0KNMyLONwGNGqys9CCLXw GDZoVfNdHvTzURIuWSNjBVdpWKWyPGJoARI8PIZqKZLvXZ0LRjRrZHXpOPEhBlimDJKvFWAcci8DBCRr XGMnFDYtZHXvUKBoZFQfQLqpTJWmASO5Ael7CZLfYJUcGP7HTrAjMOKjJOd2PPYvWDPzBCXfen2SXDIk MDAxMDYxNyAwMDAwMCBuDQowMDAwMDEwODIxIDAwMD KaUB2EWbIrAPUdDRRgFUumLQJtRZQxkl2LBHJiOOGnOOH9BBQuBUJmOEFnLTppRBRcOUK9VZUiFGUmRK QyKD4LYnOnATZiRZveYeygZWDhTLWjmq2HVGTuYUBlPGg3WeYmISUdXPZkDQrcKMInJII8HKTsJCHpSV AiUF8LXzRjECGeOgUyAlQxHETqQPVnmg0AIRHjFJTi NQJgEVPvWEBiTAZlKUowLKWjQJEsMILpEBQbKTMlTV7ZAqUfFEXfNnQ6VzUxMGOfVHXdyb2ABVPkNQWh EBU7WIQzJDRrCLGdOIjmWPSjROUeRZXoBFRvKNApYF4MBrNhASXwZyHiXczvVFFrNBJala9GPRJsBTVt VyR2HOQuKUPiKTVuSGyxCJXuGMPyAzQ5PVEcAKIzQT 8FZyRiRFSqQvQrMNQnZXSgKSBdhq3FYGRmGZDuLJA3PXWqIAMkMSIvXMzvNLXjASN9YXqkKRAyNUSgEG 6DUaZgKALcWyHjMDDoPSQhTIRglf0PRNJoVHGoCXP9IXKiYWZfQZUcXGssAATaBGK8WXr8PUReTHLjMN 4HHuJrZZWdKbvxIPxeOOSuYQKwal0VZINmGMFjWmZz TIIfJYVsCIXzSLgrFIGkRPM0PBY1NYCpVCNaDW1OFtArOHpqZBSXWkh2VAhsP7g6JUMjMA1PI1Dny9Vu LaGlYHOHFRduBR9iqrDmZMHmTl8ZV6rUAbapIUGiErodEfbsX8D3IuZePOCuHgE1KcQ6UeMbXIawCi2m MJLrTOSfFLQzXDK3UhjgSBJ1EKMiMfypLXuqNUZfVx TqPqZbKL8YUp6WIfZ0EXJ6lCLvSd2MTdx5WJNYRrAbRF6PZUr= ID Date Data Source [id number] 04/25/2020 06:39:34 AM EDT [facility] XR CHEST FRONTAL ONLY [id number] RESULTI nterpreted by:[facility]OUR[facility] INFORMATION: Exam: XR Chest, 1 View Exam [...] rce(s) Supporting Document(s) ID Date Data Source [id number] 04/25/2020 09:32:15 AM EDT [facility] Name Value Range Interpretation Code Description Data Beronica rce(s) Supporting Document(s) Hepatitis A virus IgM Ab [Presence] in Serum or Plasma by Im munoassay Non Reactive [facility] No acute infection, susceptible to infec tion. Hepatitis B virus core IgM Ab [Presence] in Serum or Plasma by Immunoassay Non Reactive [facility] IgM antibodies to HBc were not detected, does not exclude the possibility of exposure to HBV. Hepatitis C virus Ab [Presence] in Serum or Plasma by Immuno assay Non Reactive [facility] No serological evidence of active infect ion. If recent exposure is suspected, test for HCV RNA. Hepatitis B virus surface Ag [Presence] in Serum or Plasma b y Immunoassay Non Reactive [facility] No active or previous infection. Suscept ible to infection. ID Date Data Source [id number] 04/25/2020 07:04:32 AM [facility] Name Value Range Interpretation Code Description Data Beronica rce(s) Supporting Document(s) Fibrin D-dimer FEU [Mass/volume] in Platelet poor plas ma by Immunoassay 12.78 ug/mL{FEU} <0.50 H [facility] Confirmed ID Date Data Source [id number] 04/25/2020 07:04:32 AM [facility] Value Range Interpretation Code Description Data Beronica rce(s) Supporting Document(s) Fibrinogen [Mass/volume] in Platelet poor plasma by Coagulat ion assay 245 mg/dl 190-450 [facility] ID Date Data Source [id number] 04/25/2020 07:04:32 AM [facility] Value Range Interpretation Code Description Data Beronica rce(s) Supporting Document(s) aPTT in Platelet poor plasma by Coagulation assay 62.5 s 24.0-33. 0 H [facility] ID Date Data Source [id number] 04/30/2020 12:14:10 PM [facility] Service Cmnt XXX-Imp : RT ACMicroorganis m XXX Cult : No growth 5 days Name Value Range Interpretation Code Description Data Beronica rce(s) Supporting Document(s) ID Date Data Source [id number] 04/30/2020 12:14:10 PM [facility] Cmnt XXX-Imp : LT HANDMicroorgan ism XXX Cult : No growth 5 days Name Value Range Interpretation Code Description Data Beronica rce(s) Supporting Document(s) ID Date Data Source [id number] 04/25/2020 04:45:07 AM [facility] Value Range Interpretation Code Description Data Beronica rce(s) Supporting Document(s) Prothrombin time (PT) 22.1 s 12.5-14.9 H [facility] INR in Platelet poor plasma by Coagulation assay 1.90 [facility] Routine intensity oral anticoagulation I NR is typically 2.0-3.0. Target INR must be clinically individualized. ID Date Data Source [id number] 04/25/2020 04:52:33 AM [facility] Value Range Interpretation Code Description Data Beronica rce(s) Supporting Document(s) Lipase [Enzymatic activity/volume] in Serum or Plasma 83 U/L 13-6 0 H [facility] ID Date Data Source [id number] 04/25/2020 04:52:33 AM EDT [facility] Name Value Range Interpretation Code Description Data Beronica rce(s) Supporting Document(s) Albumin [Mass/volume] in Serum or Plasma by Bromocresol green (BCG) dye binding method 2.9 g/dL 3.5-5.2 L [facility] Bilirubin.total [Mass/volume] in Serum or Plasma 13.5 mg/dL <1.2 H [facility] Calcium [Mass/volume] in Serum or Plasma 7.9 mg/dL 8.6-10.0 L [facility] Chloride [Moles/volume] in Serum or Plasma 93 mmol/L 98-107 L [facility] Creatinine [Mass/volume] in Serum or Plasma 0.34 mg/dL 0.70-1.20 L [facility] Icteric Glucose [Mass/volume] in Serum or Plasma 85 mg/dL 70-140 [facility] Alkaline phosphatase [Enzymatic activity/volume] in Serum or Plasma 215 U/L 40-129 H [facility] Potassium [Moles/volume] in Serum or Plasma 3.3 mmol/L 3.4-5.1 L [facility] Hemolyzed Protein [Mass/volume] in Serum or Plasma 8.2 g/dL 6.4-8.3 [facility] Sodium [Moles/volume] in Serum or Plasma 133 mmol/L 136-145 L [facility] Aspartate aminotransferase [Enzymatic activity/volume] in Serum or Plasma 436 U/L <40 H [facility] Hemolyzed Urea nitrogen [Mass/volume] in Serum or Plasma 2 mg/dL 6-20 L [facility] Osmolality of Serum or Plasma by calculation 272 mosm/kg 275-300 L [facility] Creatinine/Urea nitrogen [Mass Ratio] in Serum or Plasma 7 [facility] Bicarbonate [Moles/volume] in Serum 26 mmol/L 22-29 [facility] Alanine aminotransferase [Enzymatic activity/volume] in Seru m or Plasma 85 U/L <41 H [facility] Anion gap 3 in Serum or Plasma 14 mmol/L 8-15 [facility] Glomerular filtration rate/1.73 sq M pre dicted among non-blacks [Volume Rate/Area] in Serum or Plasma by Creatinine-based formula (MDRD) >6 0 [facility] Glomerular filtration rate/1.73 sq M pre dicted among blacks [Volume Rate/Area] in Serum or Plasma by Creatinine-based formula (MDRD) >60 [facility] ID Date Data Source [id number] 04/25/2020 04:52:33 AM [facility] Name Value Range Interpretation Code Description Data Beronica rce(s) Supporting Document(s) Phosphate [Mass/volume] in Serum or Plasma 2.6 mg/dL 2.5-4.5 [facility] ID Date Data Source [id number] 04/25/2020 04:52:33 AM [facility] Name Value Range Interpretation Code Description Data Beronica rce(s) Supporting Document(s) Troponin T.cardiac [Mass/volume] in Serum or Plasma <0.01 [facility] ID Date Data Source [id number] 04/25/2020 06:28:05 AM [facility] Value Range Interpretation Code Description Data Beronica rce(s) Supporting Document(s) Leukocytes [#/volume] in Blood by Automated count 3.9 10*3/uL 4-10 L [facility] Erythrocytes [#/volume] in Blood by Automated count 3.21 10*6/uL 4.6- 6.1 L [facility] Hemoglobin [Mass/volume] in Blood 11.9 g/dL 13.5-18 L [facility] Hematocrit [Volume Fraction] of Blood by Automated count 32.8 % 4 1-53 L [facility] Erythrocyte mean corpuscular volume [Entitic volume] b y Automated count 102.1 fL 80-96 H [facility] Erythrocyte mean corpuscular hemoglobin [Entitic mass] by Automated count 37.0 pg 27-33 H [facility] Erythrocyte mean corpuscular hemoglobin concentration [Mass/volume] by Automated count 36.2 g/dL 32.0-36.0 [facility] E[facility]th[facility] distribution width [Ratio] by Automated count 16.0 % 11.5-14.5 H [facility] Platelets [#/volume] in Blood by Automated count 63 10*3/uL 150-400 L [facility] Differential cell count method - Blood [facility] Neutrophils/100 leukocytes in Blood by Automated count 66 % [facility] Lymphocytes/100 leukocytes in Blood by Automated count 23 % [facility] Monocytes/100 leukocytes in Blood by Automated count 5 % [facility] Eosinophils/100 leukocytes in Blood by Automated count 1 % [facility] Basophils/100 leukocytes in Blood by Automated count 2 % [facility] Neutrophils [#/volume] in Blood by Automated count 2.57 10*3/uL 1.8-7 .0 [facility] Lymphocytes [#/volume] in Blood by Automated count 0.90 10*3/uL 1.2-4 .0 L [facility] Monocytes [#/volume] in Blood by Automated count 0.20 10*3/uL 0-0.8 [facility] Eosinophils [#/volume] in Blood by Automated count 0.04 10*3/uL 0-0.5 [facility] Basophils [#/volume] in Blood by Automated count 0.08 10*3/uL 0-0.2 [facility] Band form neutrophils/100 leukocytes in Blood by Manual count 3 % [facility] Band form neutrophils [#/volume] in Blood by Manual count 0.12 10*3 /uL 0-0.6 [facility] Macrocytes [Presence] in Blood by Light microscopy [facility] Target cells [Presence] in Blood by Light microscopy [facility] ID Date Data Source [id number] 04/25/2020 06:37:45 AM [facility] Value Range Interpretation Code Description Data Beronica rce(s) Supporting Document(s) Ferritin [Mass/volume] in Serum or Plasma 2328 ng/ml 30-400 H [facility] Confirmed ID Date Data Source [id number] 04/25/2020 06:37:45 AM [facility] Value Range Interpretation Code Description Data Beronica rce(s) Supporting Document(s) Magnesium [Mass/volume] in Serum or Plasma 1.1 mg/dL 1.6-2.6 L [facility] ID Date Data Source [id number] 04/25/2020 09:32:25 AM [facility] Value Range Interpretation Code Description Data Beronica rce(s) Supporting Document(s) Cobalamin (Vitamin B12) [Mass/volume] in Serum or Plasma 2 11-946 H [facility] ID Date Data Source [id number] [facility] Code Description Data Beronica rce(s) Supporting Document(s) Iron [Mass/volume] in Serum or Plasma 114 ug/dl 59-158 [facility] Transferrin [Mass/volume] in Serum or Plasma 89 mg/dL 200-360 L [facility] Iron binding capacity [Mass/volume] in Serum or Plasma 124 ug/dl 228 -428 L [facility] Iron saturation [Mass Fraction] in Serum or Plasma 96.0 % 20-55 H [facility] ID Date Data Source [id number] 04/25/2020 09:12:34 AM EDT [facility] Name Value Range Interpretation Code Description Data Beronica rce(s) Supporting Document(s) Folate [Mass/volume] in Serum or Plasma 5.94 ng/mL >4.77 [facility] ID Date Data Source [id number] 04/25/2020 05:43:02 AM [facility] Value Range Interpretation Code Description Data Beronica rce(s) Supporting Document(s) Color of Urine [facility] Clarity of Urine [facility] Specific gravity of Urine by Refractometry automated 1.010 1.003 -1.030 [facility] pH of Urine by Automated test strip 6.0 5.0-8.0 [facility] Protein [Mass/volume] in Urine by Automated test strip Neg [facility] Glucose [Mass/volume] in Urine by Automated test strip Neg [facility] Ketones [Mass/volume] in Urine by Automated test strip 5 mg/dL Neg [facility] Bilirubin.total [Presence] in Urine by Automated test strip Negative [facility] False-positive results may occur with ce rtain food additives or medications. Hemoglobin [Presence] in Urine by Automated test strip Neg ative [facility] Leukocyte esterase [Presence] in Urine by Automated test strip Negative [facility] Nitrite [Presence] in Urine by Automated test strip Negati [facility] Leukocytes [#/area] in Urine sediment by Automated count 0 -5 [facility] Erythrocytes [#/area] in Urine sediment by Automated count 1 /HPF 0-3 [facility] Service comment [facility] Hyaline casts [#/area] in Urine sediment by Microscopy low p ower field 1 /LPF None [facility] ID Date Data Source [id number] 04/25/2020 04:45:32 AM EDT [facility] Name Value Range Interpretation Code Description Data Beronica rce(s) Supporting Document(s) Lactate [Moles/volume] in Serum or Plasma 4.2 mmol/l 0.5-2.2 [facility] Results called to and read back by jewell cole [id number] RN @ [id number] 04.25.20 6510 ID Date Data Source [id number] 04/25/2020 05:50:35 AM [facility] Cmnt XXX-Imp : NoneMicroorganism XXX Cult : 2019 nCoV Real-Time RT-PCR: NOT DETECTEDTest performed using [employer] Respiratory Panel. This test is only for use under Food and Drug Administration's Emergency Use Authorization.Additional information is available on the following FDA websites for health care providers and patients. https://www.fda.gov/media/570075/download , https://www.fda.gov/me tin/197167/downloadPolymerase chain reaction is NEGATIVE for Influenza A H1, H3 and 2009 H1 viruses, Influenza B virus, Respiratory syncytial virus, Human metapneumovirus, Parainfluenza virus 1,2,3 and 4, Adenovirus, Rhinovirus/ Enterovirus, Coronavirus HKU1, NL63, OC43 and 229E, Bordetella pertussis, B. parapertussis, Mycoplasma pneumoniae and Chlamydia pneumoniae. Name Value Range Interpretation Code Description Data Beronica rce(s) Supporting Document(s) ID Date Data Source [id number] 04/25/2020 03:59:00 AM [facility] Cmnt XXX-Imp : NoneMicroorganism XXX Cult : 2019 nCoV Real-Time RT-PCR: NOT DETECTEDTest performed using [employer] Respiratory Panel. This test is only for use under Food and Drug Administration's Emergency Use Authorization.Additional information is available on the following FDA websites for health care providers and patients. https://www.fda.gov/media/135868/download , https://www.fda.gov/me tin/087962/downloadPolymerase chain reaction is NEGATIVE for Influenza A H1, H3 and 2009 H1 viruses, Influenza B virus, Respiratory syncytial virus, Human metapneumovirus, Parainfluenza virus 1,2,3 and 4, Adenovirus, Rhinovirus/ Enterovirus, Coronavirus HKU1, NL63, OC43 and 229E, Bordetella pertussis, B. parapertussis, Mycoplasma pneumoniae and Chlamydia pneumoniae. Name Value Range Interpretation Code Description Data Beronica rce(s) Supporting Document(s) Microorganism identified in Unspecified specimen by [facility] This lab was ordered by [facility] and reported by [facility]. ID Date Data Source [id number] 11/04/2019 12:00:00 AM EDT eCW1 ([facility]) Name Value Range Interpretation Code Description Data Beronica rce(s) Supporting Document(s) Microalbumin/Creatinine [Mass Ratio] in Urine 74.6 CREATININE, URINE eCW1 ([facility]) Albumin/Creatinine [Mass Ratio] in Urine 53.3 MALB URINE SIEMENS eCW1 ([facility]) Microalbumin/Creatinine [Ratio] in Urine 71.4 0.0-30.0 MEJIA/CREAT RATIO eCW1 ([facility]) ID Date Data Source [id number] 11/04/2019 12:00:00 AM EDT eCW1 ([facility]) Name Value Range Interpretation Code Description Data Beronica rce(s) Supporting Document(s) Hemoglobin A1c/Hemoglobin.total in Blood 6.4 HEMOGLOBIN A1c eCW1 ([facility]) Procedure Social History Code Duration Value Status Description Data Source(s ) Smoking 08/10/2020 12:00:00 AM EST Former Smoker completed Former Smoker eCW1 ([facility]) Smoking 08/10/2020 12:00:00 AM EST Former Smoker completed Former Smoker eCW1 ([facility]) Smoking 08/10/2020 12:00:00 AM EST Former Smoker completed Former Smoker eCW1 ([facility]) Smoking 07/27/2020 12:00:00 AM EST Former Smoker completed Former Smoker eCW1 ([facility]) Alcohol intake 07/08/2020 12:00:00 AM EST Current drinker of al cohol (finding) completed Current drinker of alcohol (finding) [facility] Tobacco use and exposure 07/08/2020 12:00:00 AM EST Never used co mpleted Never used [facility] Cigarette pack-years 07/08/2020 12:00:00 AM EST UNK completed [facility] Cigarettes smoked current (pack per day) - Reported 07/08/20 12:00:00 AM EST UNK completed [facility] Smoking 07/08/2020 12:00:00 AM EST Light tobacco smoker comple rosa Light tobacco smoker [facility] Smoking 06/08/2020 12:00:00 AM EDT Former Smoker completed Former Smoker eCW1 ([facility]) Smoking 06/08/2020 12:00:00 AM EDT Former Smoker completed Former Smoker eCW1 ([facility]) Smoking 06/08/2020 12:00:00 AM EDT Former Smoker completed Former Smoker eCW1 ([facility]) Smoking 04/30/2020 12:00:00 PM EDT Ex-smoker (finding) completed Former Smoker NETSMART ([facility]) Alcohol intake 04/26/2020 12:00:00 AM EDT Current drinker of al cohol (finding) completed Current drinker of alcohol (finding) [facility] Smoking 02/07/2020 12:00:00 AM EDT Former Smoker completed Former Smoker eCW1 ([facility]) Smoking 02/07/2020 12:00:00 AM EDT Former Smoker completed Former Smoker eCW1 ([facility]) Smoking 02/07/2020 12:00:00 AM EDT Former Smoker completed Former Smoker eCW1 ([facility]) Smoking 02/07/2020 12:00:00 AM EDT Former Smoker completed Former Smoker eCW1 ([facility]) Vital Signs ID Date Data Source UNK Name Value Range Interpretation Code Description Data Source(s) Body surface area Derived from formula 2.09 m2 2.09 m2 [facility] ([facility], ) Body weight 82.272 kg 82.272 kg [facility] ([facility], ) [place] body weight 190 [lb_av] 190 [lb_av] [facility], ) Body mass index (BMI) [Ratio] 23.3 kg/m2 23.3 k g/m2 [facility] ([facility], ) Body weight 181.38 [lb_av] 181.38 [lb_av] MED[facility] T ([facility]) Body height 74 [in_i] 74 [in_i] MEDENT ([facility]) 6'2" Diastolic blood pressure 74 mm[Hg] 74 mm[Hg] [facility] ([facility]) Systolic blood pressure 109 mm[Hg] 109 mm[Hg] [facility] ([facility]) Body surface area Derived from formula 2.15 m2 2.15 m2 [facility] ([facility]) Body weight 88.622 kg 88.622 kg [facility] ([facility]) [place] body weight 190 [lb_av] 190 [lb_av] MED[facility] T ([facility]) Body mass index (BMI) [Ratio] 25.1 kg/m2 25.1 k g/m2 [facility] ([facility]) Body weight 195.38 [lb_av] 195.38 [lb_av] [facility] T ([facility]) Body height 74 [in_i] 74 [in_i] [facility] ([facility]) 6'2" Diastolic blood pressure 69 mm[Hg] 69 mm[Hg] [facility] ([facility]) Systolic blood pressure 102 mm[Hg] 102 mm[Hg] [facility] ([facility]) Body surface area Derived from formula 2.16 m2 2.16 m2 [facility] ([facility]) Body weight 89.870 kg 89.870 kg [facility] ([facility]) [place] body weight 190 [lb_av] 190 [lb_av] [facility] T ([facility]) Body mass index (BMI) [Ratio] 25.4 kg/m2 25.4 k g/m2 [facility] ([facility]) Body weight 198.12 [lb_av] 198.12 [lb_av] [facility] T ([facility]) Body height 74 [in_i] 74 [in_i] [facility] 6'2" Heart rate 98 /min 98 /min [facility] ([facility]) Diastolic blood pressure 65 mm[Hg] 65 mm[Hg] [facility], [facility] Systolic blood pressure 96 mm[Hg] 96 mm[Hg] [facility] Diastolic blood pressure 84 mm[Hg] 84 mm[Hg] eCW1 ([facility]) Systolic blood pressure 118 mm[Hg] 118 mm[Hg] e CW1 ([facility]) Body temperature 97.7 [degF] 97.7 [degF] eCW1 ( [facility]) Respiratory rate 19 /min 19 /min eCW1 ([facility]) Heart rate 101 /min 101 /min eCW1 ([facility]) Body mass index (BMI) [Ratio] 25.50 kg/m2 25.50 kg/m2 [facility] ([facility]) Body height 75 [in_i] 75 [in_i] eCW1 ([facility]) Body weight 204 [lb_av] 204 [lb_av] eCW1 ([facility]) [place] body weight 190 [lb_av] 190 [lb_av] MEDEN T ([facility], ) Body mass index (BMI) [Ratio] 26.7 kg/m2 26.7 k g/m2 [facility] ([facility], ) Body weight 208.00 [lb_av] 208.00 [lb_av] MEDEN T ([facility], ) Body height 74 [in_i] 74 [in_i] [facility] ([facility], ) 6'2" Diastolic blood pressure 68 mm[Hg] 68 mm[Hg] [facility] ([facility]) Systolic blood pressure 100 mm[Hg] 100 mm[Hg] [facility] Body weight 94.349 kg 94.349 kg [facility] ([facility]) Diastolic blood pressure 70 mm[Hg] 70 mm[Hg] eCW1 ([facility]) Systolic blood pressure 124 mm[Hg] 124 mm[Hg] e CW1 ([facility]) Body temperature 97.8 [degF] 97.8 [degF] eCW1 ( [facility]) Respiratory rate 18 /min 18 /min eCW1 ([facility]) Heart rate 80 /min 80 /min eCW1 ([facility]) Body mass index (BMI) [Ratio] 28.87 kg/m2 28.87 kg/m2 eCW1 ([facility]) Body height 75 [in_i] 75 [in_i] eCW1 ([facility]) Body weight 231 [lb_av] 231 [lb_av] eCW1 ([facility]) Diastolic blood pressure 86 mm[Hg] 86 mm[Hg] eCW1 ([facility]) Systolic blood pressure 122 mm[Hg] 122 mm[Hg] e CW1 ([facility]) Body temperature 99.0 [degF] 99.0 [degF] eCW1 ( [facility]) Respiratory rate 18 /min 18 /min eCW1 ([facility]) Heart rate 95 /min 95 /min eCW1 ([facility]) Body mass index (BMI) [Ratio] 29.00 kg/m2 29.00 kg/m2 W1 ([facility]) Body height 75 [in_us] 75 [in_us] eCW1 ([facility]) Body weight Measured 232.06 [lb_av] 232.06 [lb_ av] eCW1 ([facility]) Body mass index (BMI) [Ratio] 30.49 kg/m2 30.49 kg/m2 eCW1 ([facility]) Body height 75 [in_us] 75 [in_us] eCW1 ([facility]) Body weight Measured 244 [lb_av] 244 [lb_av] eC W1 ([facility]) Diastolic blood pressure 90 mm[Hg] 90 mm[Hg] eCW1 ([facility]) Systolic blood pressure 124 mm[Hg] 124 mm[Hg] e CW1 ([facility]) Body temperature 97.8 [degF] 97.8 [degF] eCW1 ( [facility]) Respiratory rate 20 /min 20 /min eCW1 ([facility]) Heart rate 96 /min 96 /min eCW1 ([facility]) Body mass index (BMI) [Ratio] 30.49 kg/m2 30.49 kg/m2 eCW1 ([facility]) Body height 75 [in_us] 75 [in_us] eCW1 ([facility]) Body weight Measured 244 [lb_av] 244 [lb_av] eC W1 ([facility]) ID Date Data Source [id number] 05/19/2020 09:54:53 AM EDT [facility] Name Value Range Interpretation Code Description Data Source(s) WEIGHT RECORDED 218 lb 218 lb [facility] WEIGHT RECORDED 177.6 lb 177.6 lb [facility] WEIGHT RECORDED 212.8 lb 212.8 lb [facility] Body height Measured 75 in 75 in [facility] TRANSFER FROM [facility] Patient Treatment Plan of Care Planned Activity Planned Date Details Description Data Source (s) Abdominal Binder/Elastic Large - 08/27/2020 12:00:00 AM EST eCW1 ([facility]) Abdominal Binder/Elastic Large - 08/27/2020 12:00:00 AM EST eCW1 ([facility]) Abdominal Binder/Elastic Large - 08/27/2020 12:00:00 AM EST eCW1 ([facility]) Amitriptyline Hydrochloride 25 MG Oral Tablet 08/10/2020 12:00:00 A M EST eCW1 ([facility]) Amitriptyline Hydrochloride 25 MG Oral Tablet 08/10/2020 12:00:00 A M EST eCW1 ([facility]) Amitriptyline Hydrochloride 25 MG Oral Tablet 08/10/2020 12:00:00 A M EST eCW1 ([facility]) Furosemide 40 MG Oral Tablet 07/27/2020 12:00:00 AM EST eCW1 ([facility]) Spironolactone 100 MG Oral Tablet 07/27/2020 12:00:00 AM EST eCW1 ([facility]) Ondansetron 4 MG Oral Tablet 07/27/2020 12:00:00 AM EST eCW1 ([facility]) Amitriptyline Hydrochloride 10 MG Oral Tablet 06/08/2020 12:00:00 A M EDT eCW1 ([facility]) Amitriptyline Hydrochloride 10 MG Oral Tablet 06/08/2020 12:00:00 A M EDT eCW1 ([facility]) Amitriptyline Hydrochloride 10 MG Oral Tablet 06/08/2020 12:00:00 A M EDT eCW1 ([facility]) Vitamin K 1 5 MG Oral Tablet 05/28/2020 12:00:00 AM EDT eCW1 ([facility]) Vitamin K 1 5 MG Oral Tablet 05/28/2020 12:00:00 AM EDT eCW1 ([facility]) Hydrocortisone 10 MG Oral Tablet 05/12/2020 12:00:[address] [facility] Hydrocortisone 10 MG Oral Tablet 05/12/2020 12:00:[address] [facility] Melatonin 3 MG Oral Tablet 05/11/2020 10:00:[address] [facility] Promethazine Hydrochloride 25 MG/ML Injectable Solutio n 05/11/2020 12:10:26 PM [facility] Meclizine Hydrochloride 12.5 MG Oral Tablet 05/11/2020 12:10:[address] [facility] Thiamine 100 MG Oral Tablet 05/11/2020 12:00:[address] [facility] Hydrocortisone 5 MG Oral Tablet 05/11/2020 12:00:[address] [facility] Hydrocortisone 10 MG Oral Tablet 05/11/2020 12:00:[address] [facility] Folic Acid 1 MG Oral Tablet 05/11/2020 12:00:[address] [facility] Calcium Carbonate 1250 MG / Cholecalciferol 200 UNT Or al Tablet 05/11/2020 12:00:00 AM [facility] Aluminum Hydroxide 40 MG/ML / Magnesium Hydroxide 40 MG/ML / Simethicone 4 MG/ML Oral Suspension 05/11/2020 12:00:00 AM [facility] Ondansetron 4 MG Oral Tablet 05/11/2020 12:00:[address] [facility] Meclizine Hydrochloride 12.5 MG Oral Tablet 05/11/2020 12:00:[address] [facility] Meclizine Hydrochloride 12.5 MG Oral Tablet 05/11/2020 12:00:[address] [facility] Hydrocortisone 5 MG Oral Tablet 05/11/2020 12:00:[address] [facility] Hydrocortisone 10 MG Oral Tablet 05/11/2020 12:00:[address] [facility] Aluminum Hydroxide 40 MG/ML / Magnesium Hydroxide 40 MG/ML / Simethicone 4 MG/ML Oral Suspension 05/11/2020 12:00:00 AM [facility] Hydrocortisone 5 MG Oral Tablet 05/11/2020 12:00:[address] [facility] Hydrocortisone 5 MG Oral Tablet 05/11/2020 12:00:[address] [facility] Oxycodone Hydrochloride 5 MG Oral Tablet 05/09/2020 01:13:[address] [facility] Acetaminophen 325 MG / Hydrocodone Bitartrate 5 MG Ora l Tablet 05/06/2020 12:00:00 AM [facility] Thiamine 100 MG Oral Tablet 05/06/2020 12:00:[address] [facility] Ondansetron 4 MG Oral Tablet 05/06/2020 12:00:[address] [facility] Tab-A-Franki/Beta Carotene Oral Tablet 05/06/2020 12:00:[address] [facility] Meclizine Hydrochloride 12.5 MG Oral Tablet 05/06/2020 12:00:[address] [facility] Folic Acid 1 MG Oral Tablet 05/06/2020 12:00:[address] [facility] Calcium Carbonate 1250 MG / Cholecalciferol 200 UNT Or al Tablet 05/06/2020 12:00:00 AM [facility] Dextromethorphan Hydrobromide 2 MG/ML / Guaifenesin 20 MG/ML Oral Suspension 04/28/2020 07:00:00 PM [facility] sodium chloride (preservative free) 0.9 % flush 10 mL 04/27/2020 02:17:31 PM [facility] dextrose 50 % IV solution 25 mL 04/25/2020 03:04:[address] [facility] Glucagon 1 MG Injection 04/25/2020 03:04:[address] [facility] Glucose 0.417 MG/MG Oral Gel 04/25/2020 03:04:32 AM EDT [facility] Meclizine Hydrochloride 25 MG Chewable Tablet 02/07/2020 12:00:00 A M EDT eCW1 ([facility]) Naltrexone hydrochloride 50 MG Oral Tablet 02/07/2020 12:00:00 AM E DT eCW1 ([facility]) doxycycline hyclate 50 MG Oral Capsule 01/01/2020 12:00:00 AM EDT eCW1 ([facility]) doxycycline hyclate 50 MG Oral Capsule 01/01/2020 12:00:00 AM EDT eCW1 ([facility]) Metformin hydrochloride 500 MG Oral Tablet 11/11/2019 12:00:00 AM E DT eCW1 ([facility]) Clindamycin 10 MG/ML Topical Lotion [Cleocin-T] 10/14/2019 12:00:00 AM EST eCW1 ([facility]) adapalene 1 MG/ML Topical Lotion [Differin] 10/14/2019 12:00:00 AM EST eCW1 ([facility]) doxycycline hyclate 100 MG Oral Capsule [facility] atorvastatin 20 MG Oral Tablet [facility] Metformin hydrochloride 500 MG Oral Tablet [facility]
[2020-09-11 06:41] LABS: INR 1.58; PROTHROMBIN TIME 19.2 SECONDS (12.5-14.3)
[2020-09-11 06:43] LABS: PARTIAL THROMBOPLASTIN TIME 58.4 SECONDS (24.2-38.5)
[2020-09-11] MEDS ORDERED: MORPHINE 2 MG/ML 1ML VIAL (J2270) IV PRN (07:00)
[2020-09-11] MEDS ORDERED: fentaNYL 100 MCG/2 ML INJECTION (J3010) As Ordered ONE ×2 (07:02→09:50)
[2020-09-11] MEDS ORDERED: LIDOCAINE 2% 100MG/5ML SDV (FOR ANES.) As Ordered ONE (07:02)
[2020-09-11] MEDS ORDERED: MIDAZOLAM INJ 2MG/2ML VIAL (J2250 PER 1MG) As Ordered ONE (07:02)
[2020-09-11] MEDS ORDERED: propofoL 200 MG/20 ML VIAL As Ordered ONE (07:02)
[2020-09-11] MEDS ORDERED: dexameTHASONE 4 MG/ML 1ML VIAL (J1100 PER 1MG) As Ordered ONE (07:03)
[2020-09-11] MEDS ORDERED: ONDANSETRON 4MG/2ML VIAL As Ordered ONE (07:03)
[2020-09-11] MEDS ORDERED: ROCURONIUM BROMIDE 50 MG/5 ML VIAL As Ordered ONE (07:03)
[2020-09-11] MEDS ORDERED: BUPIVACAINE HCL 0.25% 30ML VIAL As Ordered ONE (07:14)
[2020-09-11] MEDS ORDERED: BUPIVACAINE LIPOSOME/PF 1.3% 20ML VIAL (13.3MG/ML)(EXPAREL)(C9290 PER1MG) As Ordered ONE (07:14)
[2020-09-11] MEDS ORDERED: ceFAZolin 2 GM/D5W 50 ML IV BAG (J0690 PER 500MG) As Ordered ONE (07:31)
[2020-09-11] MEDS ORDERED: KETOROLAC 60MG 2ML VIAL As Ordered ONE (09:18)
[2020-09-11] MEDS ORDERED: SUGAMMADEX SODIUM 500 MG/5 ML VIAL (BRIDION) As Ordered ONE ×2 (09:22→12:18)
[2020-09-11] MEDS ORDERED: LR 1,000 ML IV SCH (10:00)
[2020-09-11] MEDS ORDERED: fentaNYL 100 MCG/2 ML INJECTION (J3010) IV PRN (10:00)
[2020-09-11] MEDS ORDERED: HYDROMORPHONE HCL 0.5 MG/ 0.5 ML SYRINGE (J1170 PER 1) IV PRN (10:00)
[2020-09-11] MEDS ORDERED: oxyCODONE 5MG TAB PO PRN (10:00)
[2020-09-11] MEDS ORDERED: oxyCODONE 5MG TAB As Ordered ONE (10:02)
[2020-09-11] MEDS ORDERED: HYDROMORPHONE HCL 0.5 MG/ 0.5 ML SYRINGE (J1170 PER 1) As Ordered ONE (10:02)
[2020-09-11] MEDS ORDERED: ONDANSETRON 4MG/2ML VIAL IV PRN (10:15)
[2020-09-11] MEDS ORDERED: NORCO, ANEXSIA 5/325MG TABLET (HYDROcodone/ACETAMINOPHEN) PO PRN (11:00)
[2020-09-11] MEDS ORDERED: ACETAMINOPHEN TAB 650MG DOSE (2X325MG) PO PRN (11:00)
[2020-09-11] MEDS ORDERED: IBUPROFEN 600MG TAB PO PRN (11:00)
[2020-09-11] MEDS ORDERED: NAPR220C24 PO (12:02)
[2020-09-11 12:10] VITALS: BP 121/82
--- NOTE | 2020-09-11 12:38 | RO ---
OPERATIVE NOTE DATE OF OPERATION: 09/11/2020 PREOPERATIVE DIAGNOSIS: Incarcerated umbilical hernia. POSTOPERATIVE DIAGNOSIS: Incarcerated umbilical hernia containing viable small bowel. PROCEDURE: Open repair of an incarcerated umbilical hernia. SURGEON: Tam Tran MD ANESTHESIA: General INDICATIONS FOR THE PROCEDURE: The patient is a 49-year-old man who has had recurring issues with incarceration of an umbilical hernia. This had occurred previously back in June. He had a history of cirrhosis with some ascites noted at that time. His surgery was delayed to allow management of his underlying liver disease. He presented again to the emergency department with an incarcerated umbilical hernia with significant pain and tenderness and a CT scan suggesting a degree of small bowel obstruction. He is now for emergent repair of his umbilical hernia. DESCRIPTION OF PROCEDURE: The patient was brought to the operating room and placed on the table in a supine position. He was placed under general endotracheal anesthesia. The patient's abdomen was prepped and draped in a sterile fashion. Palpation revealed an approximately 3-1/2 to 4 cm lump at the umbilicus. An approximately 4-5 cm transverse supraumbilical skin incision was made. This was deepened through the subcutaneous tissues. The superior edge of the umbilical hernia bulge was exposed. The subcutaneous tissues were elevated off of the fascia above the edge of the hernia and a midline incision was begun in the fascia. This was carried inferiorly using scissors until the final band of the fascia forming the edge of the hernia defect was cut. The peritoneum was then incised extending to the opening of the hernia and as this was incised, the small bowel was reduced back into the abdomen. A small amount of slightly turbid serous fluid was released as well. The fascial defect was approximately 1-1/2 to 2 cm maximally. The hernia sac was dissected off the overlying umbilical skin and removed and sent as a specimen. The peritoneum was closed with a running suture of 3-0 Vicryl. The fascia was then closed with interrupted simple sutures of 1-0 and 2-0 Ethibond. This appeared to give a nice secure closure of the fascia along the midline. The umbilical skin was tacked down to the underlying fascia. Approximately 20 mL of 1/4% Marcaine were infiltrated about the wound for postoperative pain control. The skin edges were brought into apposition with some buried sutures of 3-0 Vicryl and a running subcuticular 4-0 Vicryl was used to close the skin. Steri-Strips were applied. The umbilicus was filled with a some fluffed 2x2s and a sterile dressing of 4x4s was placed over this. The patient was awakened in the operating room, extubated and moved to the recovery room in stable condition. CHAI
[2020-09-12] MEDS ORDERED: ceFAZolin SOD 2 GM in D5W MINI-BAG PLUS 50 ML IV SCH (06:00)
== END 2020-09-11 13:07 | disposition home or self-care (01) ==
LOC: M ED 23:58 → M SDC 23:59
PROVIDERS: ATTEND Surgery
DX: K42.0 Umbilical hernia with obstruction, without gangrene (principal); E78.49 Other hyperlipidemia; I10 Essential (primary) hypertension; K74.60 Unspecified cirrhosis of liver; Z79.899 Other long term (current) drug therapy
CPT/HCPCS: 49587; 80047; 80076; 83605; 83690; 85025; 85610; 85730; 88302; 93041; 96374; 96375; 96376; 99285; J0690; J1100; J1885; J2060; J2250; J2270; J2405; J3010; Q9967; U0002

== ENCOUNTER → 2020-09-23 | Outpatient (CLI) | payer OTHER ==
[~2020-09-23] MED LIST changes: +LISI-542 PO; -LISI-898 PO; +NAPR220C24 PO
[2020-09-23 13:22] LABS: ALBUMIN 3.2 GM/DL (3.2-5.2); ALT/SGPT 27 U/L (12-78); BILIRUBIN,TOTAL 1.2 MG/DL (0.2-1.0); BLOOD UREA NITROGEN 10 MG/DL (7-18); CALCIUM LEVEL 9.2 MG/DL (8.5-10.1); CARBON DIOXIDE LEVEL 29 MEQ/L (21-32); CHLORIDE LEVEL 101 MEQ/L (98-107); CREATININE FOR GFR 0.85 MG/DL (0.70-1.30); GLOMERULAR FILTRATION RATE > 60.0 (>56); GLUCOSE, FASTING 89 MG/DL (70-100); POTASSIUM SERUM 3.4 MEQ/L (3.5-5.1); SODIUM LEVEL 139 MEQ/L (136-145)
== END ==
LOC: M LAB 12:25
DX: K75.9 Inflammatory liver disease, unspecified (principal)

== ENCOUNTER 2020-10-14 13:23 | Emergency (ER) | payer OTHER ==
[~2020-10-14] VITALS: Ht 160 cm; Wt 92.5 kg
[~2020-10-14 13:23] MED LIST changes: -LISI-542 PO; +LISI-898 PO
--- OUTSIDE RECORDS SUMMARY | 2020-10-14 13:30 | CCD | Continuity of Care Document ---
Author Author CHRISTOPHER SMILEY, Calvin Henning Organization Unknown Address [address] [place] [address] [address] [place] [address] Phone [phone] Care Team Providers Care Veterans Service Officer Name Role Phone Taras Barahona D.O. Unavailable Geno Rivero D.O. [phone] Problems Active Problems Provider Date Essential hypertension [...] lb BMI (Body Mass Index) 23.3 kg/m2 [facility] Body Weight 190 lb Weight 82.272 kg BSA (Body Surface Area) 2.09 m2 07/23/2020 8:54am BP Systolic 102 mmHg BP Diastolic 69 mmHg Height 74 inches 6'2" Weight 195.38 lb BMI (Body Mass Index) 25.1 kg/m2 [facility] Body Weight 190 lb Weight 88.622 kg BSA (Body Surface Area) 2.15 m2 Results Test Acquired Date Facility Test Result H/L Range Note Liver Profile 07/20/2020 [facility] [place] [address] [phone] Ast/Sgot 29 U/L Normal 7-37 Alt/SGPT 13 U/L Normal 12-78 Alkaline Phosphatase 101 U/L Normal 45-117 Bilirubin,Total 3.3 mg/dL High 0.2-1.0 Bilirubin,Direct 1.7 mg/dL High 0.0-0.2 Total Protein 6.8 GM/DL Normal 6.4-8.2 Albumin 2.9 GM/DL Low 3.2-5.2 Albumin/Globulin Ratio 0.7 Normal Liver Profile 06/16/2020 [facility] [place] [address] [phone] Ast/Sgot 53 U/L High 7-37 Alt/SGPT 34 U/L Normal 12-78 Alkaline Phosphatase 103 U/L Normal 45-117 Bilirubin,Total 2.7 mg/dL High 0.2-1.0 Bilirubin,Direct 2.1 mg/dL High 0.0-0.2 Total Protein 7.3 GM/DL Normal 6.4-8.2 Albumin 2.5 GM/DL Low 3.2-5.2 Albumin/Globulin Ratio 0.5 Normal CBC With Differential 05/27/2020 [facility] [address] [place] [address] [phone] White Blood Count 3.8 10 Low 4.0-10.0 [...] 36.0-66.0 Lymph % 40.3 % Normal 24.0-44.0 Kleberg % 11.8 % High 0.0-5.0 Eos % 1.3 % Normal 0.0-3.0 Baso % 0.8 % Normal 0.0-1.0 Immature Granulocyte % 0.3 % Normal 0-3.0 Nucleated Red Blood Cell % 0.0 % Normal 0-0 Neutrophils # 1.7 10 Normal 1.5-8.5 Lymph # 1.5 10 Normal 1.5-5.0 Kleberg # 0.5 10 Normal 0.0-0.8 Eos # 0.1 10 Normal 0.0-0.5 Baso # 0.0 10 Normal 0.0-0.2 Prothrombin Time/Inr 05/27/2020 [facility] [address] [place] [address] [phone] Prothrombin Time 19.8 seconds High 12.5-14.3 Inr 1.65 Normal 1 Laboratory test finding 05/27/2020 [facility] [address] [place] [address] [phone] Partial Thromboplastin Time 54.2 seconds High 24 .2-38.5 Comprehensive Metabolic Profil 05/27/2020 [facility] [address] [place] [address] [phone] Glucose, Fasting 78 mg/dL Normal 70-100 Blood [...] Ratio 0.4 Normal Laboratory test finding 05/27/2020 [facility] [address] [place] [id number] [phone] Vitamin B12 Level 1680 pg/mL High 247-911 [...] Little GFR Left ESRD GFR <15 on MOLD CAPPER HELPER 3 VITAMIN B12 NORMAL RANGE NORMAL 247 - 911 PG/ML INDETERMINATE 211 - 246 PG/ML DEFICIENT LESS THAN 211 PG/ML Procedures Description No Information Available Medical Devices Description No Information Available Encounters Type Date Location Provider Dx Diagnosis Office Visit 07/23/2020 9:00a [facility] Jamie Rubio MD K42.9 Umbilical hernia without obs truction or gangrene K70.31 Alcoholic cirrhosis of liver with ascites Office Visit 06/16/2020 10:50a [facility] Jamie Rubio MD K42.9 Umbilical hernia without obs truction or gangrene K70.10 Alcoholic hepatitis without ascites K70.30 Alcoholic cirrhosis of liver without ascites Office Visit 05/19/2020 1:30p [facility] Jamie Rubio MD K70.30 Alcoholic [...] 06/16/2020 K70.10 Alcoholic hepatitis without asci laly Oumar Rubio MD 06/16/2020 K70.30 Alcoholic cirrhosis of [...]
--- OUTSIDE RECORDS SUMMARY | 2020-10-14 13:30 | CCD | Continuity of Care Document ---
Author Author Calvin RUBIO MD Organization Unknown Address [address] [facility] [address] [place] [address] Phone [phone] Care Team Providers Care Courier Driver Name Role Phone Taras Bender D.O. Unavailable [...] lb BMI (Body Mass Index) 25.1 kg/m2 [place] Body Weight 190 lb Weight 88.622 kg BSA (Body Surface Area) 2.15 m2 06/16/2020 10:55am BP Systolic 96 mmHg BP Diastolic 65 mmHg Heart Rate 98 /min Height 74 inches 6'2" Weight 198.12 lb BMI (Body Mass Index) 25.4 kg/m2 [place] Body Weight 190 lb Weight 89.870 kg BSA (Body Surface Area) 2.16 m2 Results Test Acquired Date Facility Test Result H/L Range Note Liver Profile 07/20/2020 [facility] [place] [address] [phone] Ast/Sgot 29 U/L Normal 7-37 Alt/SGPT 13 U/L Normal 12-78 Alkaline Phosphatase 101 U/L Normal 45-117 Bilirubin,Total 3.3 mg/dL High 0.2-1.0 Bilirubin,Direct 1.7 mg/dL High 0.0-0.2 Total Protein 6.8 GM/DL Normal 6.4-8.2 Albumin 2.9 GM/DL Low 3.2-5.2 Albumin/Globulin Ratio 0.7 Normal Liver Profile 06/16/2020 [facility] [place] [address] [phone] Ast/Sgot 53 U/L High 7-37 Alt/SGPT 34 U/L Normal 12-78 Alkaline Phosphatase 103 U/L Normal 45-117 Bilirubin,Total 2.7 mg/dL High 0.2-1.0 Bilirubin,Direct 2.1 mg/dL High 0.0-0.2 Total Protein 7.3 GM/DL Normal 6.4-8.2 Albumin 2.5 GM/DL Low 3.2-5.2 Albumin/Globulin Ratio 0.5 Normal CBC With Differential 05/27/2020 [facility] Main Lab [address] [place] [address] [phone] White Blood Count 3.8 10 Low 4.0-10.0 [...] 36.0-66.0 Lymph % 40.3 % Normal 24.0-44.0 [place] % 11.8 % High 0.0-5.0 Eos % 1.3 % Normal 0.0-3.0 Baso % 0.8 % Normal 0.0-1.0 Immature Granulocyte % 0.3 % Normal 0-3.0 Nucleated Red Blood Cell % 0.0 % Normal 0-0 Neutrophils # 1.7 10 Normal 1.5-8.5 Lymph # 1.5 10 Normal 1.5-5.0 Gaston # 0.5 10 Normal 0.0-0.8 Eos # 0.1 10 Normal 0.0-0.5 Baso # 0.0 10 Normal 0.0-0.2 Prothrombin Time/Inr 05/27/2020 [facility] enter Main Lab [address] [place] [address] [phone] Prothrombin Time 19.8 seconds High 12.5-14.3 Inr 1.65 Normal 1 Laboratory test finding 05/27/2020 [facility] Main Lab [address] [place], [place] [id number] [phone] Partial Thromboplastin Time 54.2 seconds High 24 .2-38.5 Comprehensive Metabolic Profil 05/27/2020 [facility] Main Lab [address] [place], [place] [id number] [phone] Glucose, Fasting 78 mg/dL Normal 70-100 Blood [...] Ratio 0.4 Normal Laboratory test finding 05/27/2020 [facility] Main Lab [address] [place] [address] [phone] Vitamin B12 Level 1680 pg/mL High 247-911 [...] Little GFR Left ESRD GFR <15 on METER MECHANIC 3 VITAMIN B12 NORMAL RANGE NORMAL 247 - 911 PG/ML INDETERMINATE 211 - 246 PG/ML DEFICIENT LESS THAN 211 PG/ML Procedures Description No Information Available Medical Devices Description No Information Available Encounters Type Date Location Provider Dx Diagnosis Office Visit 05/19/2020 1:30p [facility] Edu grayson Rubio MD K70.30 [...] was briefly admitted for supportive care at [facility]. He is in no condition to [...] to get some of the records from [facility] with regards to the studies and workup that has been done. I'll have him be seen a month from now for follow-up. I'll repeat his LFTs. Functional Status Description No Information Available Mental Status Description No Information Available Referrals Description No Information Available
--- OUTSIDE RECORDS SUMMARY | 2020-10-14 13:30 | CCD ---
Author Author [facility] Organization [facility] Address Unknown Phone Unavailable Care Team Providers Care Network/Telecom Engineer Name Role Phone Taras Baker Unavailable PROBLEMS Type Condition ICD9-CM Code [id number] Code Onset Dates Condition S tatus W/U Status Risk SNOMED Code Notes Problem Alcohol abuse F10.10 Active confirmed 914981 05 Problem Headache in back of head R51 Active confirmed 363580 Problem Essential hypertension I10 Active confirmed 53157136 Problem Sinus congestion R09.81 Active confirmed 822 69638 Problem Seasonal allergic rhinitis due to other allergic trigger J30.89 Active confirmed 736731710 Problem Thrombocytopenia D69.6 Active confirmed 415 720238 Problem Alcohol dependence with unspecified alcohol-induced disord er F10.29 Active confirmed 48022766 Problem Ascites due to alcoholic cirrhosis K70.31 Activ e confirmed 6108282129793841 Problem Vitamin D deficiency E55.9 Active confirmed 13717733 Problem Peripheral polyneuropathy G62.9 Active confirmed 13879757 Problem Depression, unspecified depression type F32.9 Active confirmed 88190295 Problem Hypomagnesemia E83.42 Active confirmed 54211 5004 Problem Mixed hyperlipidemia E78.2 Active confirmed 142379467 Problem Fatty liver K76.0 Active confirmed 16891949 7 Problem Hyperbilirubinemia E80.6 Active confirmed 1 7571802 ALLERGIES No Known Allergies ENCOUNTERS from 1968 to 2020-09-26 Encounter Location Date Provider Diagnosis [facility] Resident [address] [place] [address] Sep, Taras Baker Umbilical hernia without obs truction and without gangrene K42.9 ; Ascites due to alcoholic cirrhosis K70.31 and Alcohol abuse F10.10 IMMUNIZATIONS Vaccine Route [...] Notes Total Score: 1 Interpretation: Alcohol Education Mosque: Question Answer Notes Mosque 13 Confucianist Sexual Hx: Question Answer Notes Had sex [...] has it been since you last smoked? 5-10 years REASON FOR REFERRAL No Information VITAL SIGNS Weight 186 lbs Sep, Height 75 in Sep, BMI 23.25 kg/m2 Sep, Heart Rate 118 /min Sep, Respiratory Rate 18 /min Sep, Temperature 97.6 degrees Fahrenheit Sep, Oximetry 100 Sep, Blood pressure systolic 126 mm Hg Sep, Blood pressure diastolic 80 mm Hg Sep, MEDICATIONS Medication SIG (Take, Route, Frequency, Duration) Notes Start Da te End Date Status Naltrexone HCl 50 MG 1 tablet Orally Once a day for 30 day(s) Active Amitriptyline HCl 25 MG 1 tablet at bedtime Orally Once a day fo r 30 day(s) Jul, Active Abdominal Binder/Elastic Large - as directed for 999 days Aug, Active Furosemide 40 MG 1 tablet Orally Once a day for 30 Active Spironolactone 100 MG 1 tablet Orally Once a day for 30 Active Atorvastatin Calcium 20 MG 1 tablet Orally Once a day for 30 Active Meclizine HCl 25 MG 1 tablet as needed Orally Once a day for 30 day(s ) Active Omeprazole 20 MG 1 tablet Orally Once a day Active Ondansetron HCl 4 MG 1 tablet Orally TIDPRN for 14 days Jul, Active Doxycycline Hyclate 50 MG 1 capsule Orally Once a day 13 M 2019 Active PROCEDURES No Information RESULTS No Results REASON FOR VISIT follow up acites MEDICAL (GENERAL) HISTORY Type Description Date Medical History Hypertension Medical History Anxiety Medical History Depression Medical History History of alcohol abuse Medical History Tobacco dependency Medical History Ance Medical History ascites Surgical History hernia repair 08/2020 Hospitalization History Rehab 12/2015 Goals Section No Information Health Concerns No Information MEDICAL EQUIPMENT No Information MENTAL STATUS No Information FUNCTIONAL STATUS No Information ASSESSMENTS Encounter Date Diagnosis Assessment Notes Treatment Notes Treatm ent Clinical Notes Sep, Umbilical hernia without obs truction and without gangrene (ICD-10 - K42.9) Patient's hernia was repaired by general surgery about 10 days ago. Patient is doing well since her apparent has an appointment with his general surgeon later on today. Sep, Ascites due to alcoholic cirrhosis (ICD-10 - K70 .31) I will rerefer the patient to gastroenterology. Patient's liver function and transaminases have improved greatly since I first met the patient 6 months ago however, because the patient has had ascites in the past that is currently being treated with furosemide and spironolactone, patient does need an EGD to assess for varices as he has not had one in the past. I initially referred the patient to gastroenterology in May however, patient has not heard back from them so recent the referral. Sep, Alcohol abuse (ICD-10 - F10.10) Patient has been abstinent from alcohol for about 5 months now. I congratulated the patient on his success so far and encouraged continued abstinence. PLAN OF TREATMENT Treatment Notes Assessment Notes Clinical Notes Umbilical hernia without obstruction and without gangr gabino Patient's hernia was repaired by general surgery about 10 days ago. Patient is doing well since her apparent has an appointment with his general surgeon later on today. Ascites due to alcoholic cirrhosis I will rerefer the patient to gastroenterology. Patient's liver function and transaminases have improved greatly since I first met the patient 6 months ago however, because the patient has had ascites in the past that is currently being treated with furosemide and spironolactone, patient does need an EGD to assess for varices as he has not had one in the past. I initially referred the patient to gastroenterology in May however, patient has not heard back from them so recent the referral. Alcohol abuse Patient has been abstinent f rom alcohol for about 5 months now. I congratulated the patient on his success so far and encouraged continued abstinence. Next Appt Details 3 Months Reason:f/u Follow Up:3 Monthsf/u Insurance Providers Payer Name Payer Address Payer Phone Insured Name Patient Relati onship to Insured Coverage Start Date Coverage End Date [facility] CORPORATE CLAIMS DEPT [address] [facility] [facility] [phone] SUZANNE GONZÁLES self
--- OUTSIDE RECORDS SUMMARY | 2020-10-14 13:30 | CCD ---
Author Author [facility] Organization [facility] Address Unknown Phone Unavailable Care Team Providers Care Director Clinical Operations Name Role Phone Taras Baker Unavailable PROBLEMS Type Condition ICD9-CM Code [id number] Code Onset Dates Condition S tatus SNOMED Code Notes Problem Alcohol abuse F10.10 Active 20556052 Problem Headache in back of head R51 Active 115200 Problem Essential hypertension I10 Active 06172066 Problem Sinus congestion R09.81 Active 68676055 Problem Seasonal allergic rhinitis due to other allergic trigger J30.89 Active 225246599 Problem Thrombocytopenia D69.6 Active 910934391 Problem Alcohol dependence with unspecified alcohol-induced disord er F10.29 Active 00786362 Problem Ascites due to alcoholic cirrhosis K70.31 Activ e 9714963866127989 Problem Vitamin D deficiency E55.9 Active 75891803 Problem Peripheral polyneuropathy G62.9 Active 833663 00 Problem Depression, unspecified depression type F32.9 Active 39898701 Problem Hypomagnesemia E83.42 Active 455867493 Problem Mixed hyperlipidemia E78.2 Active 409769127 Problem Fatty liver K76.0 Active 057809306 Problem Hyperbilirubinemia E80.6 Active 41089933 ALLERGIES No Known Allergies ENCOUNTERS from 1970 to 2020-07-30 Encounter Location Date Provider Diagnosis [address] [address] Jul, Taras Baker IMMUNIZATIONS Vaccine Route Administration [...] Notes Total Score: 1 Interpretation: Alcohol Education Yazidism: Question Answer Notes Yazidism 13 Oriental Orthodox Sexual Hx: Question Answer Notes Had sex [...] Provider Name:Taras Baker, 2020-08-10 10:00:00 AM, [address] [facility], [place], [address], Insurance Providers Payer Name Payer Address Payer Phone Insured Name Patient Relati onship to Insured Coverage Start Date Coverage End Date [facility] CORPORATE CLAIMS DEPT [address] [facility] [phone] SUZANNE GONZÁLES self
--- OUTSIDE RECORDS SUMMARY | 2020-10-14 13:30 | CCD ---
Author Author [facility] Organization [facility] Address Unknown Phone Unavailable Care Team Providers Care Aoc Aadc Operations Staff Officer Name Role Phone Taras Baker Unavailable PROBLEMS Type Condition ICD9-CM Code QUM52-OX Code Onset Dates Condition S tatus SNOMED Code Notes Problem Alcohol abuse F10.10 Active 19314520 Problem Headache in back of head R51 Active 589056 Problem Essential hypertension I10 Active 86450288 Problem Sinus congestion R09.81 Active 94305729 Problem Seasonal allergic rhinitis due to other allergic trigger J30.89 Active 168839854 Problem Thrombocytopenia D69.6 Active 683888198 Problem Alcohol dependence with unspecified alcohol-induced disord er F10.29 Active 79840030 Problem Ascites due to alcoholic cirrhosis K70.31 Activ e 5591350757704484 Problem Vitamin D deficiency E55.9 Active 26433949 Problem Peripheral polyneuropathy G62.9 Active 816174 00 Problem Depression, unspecified depression type F32.9 Active 43314105 Problem Hypomagnesemia E83.42 Active 462058650 Problem Mixed hyperlipidemia E78.2 Active 064895769 Problem Fatty liver K76.0 Active 972580585 Problem Hyperbilirubinemia E80.6 Active 77065034 ALLERGIES No Known Allergies ENCOUNTERS from 1970 to 2020-08-28 Encounter Location Date Provider Diagnosis [address] [address] Aug, Taras Baker IMMUNIZATIONS Vaccine Route Administration [...] Notes Total Score: 1 Interpretation: Alcohol Education Oriental Orthodox: Question Answer Notes Oriental Orthodox 13 Restoration Sexual Hx: Question Answer Notes Had sex [...] Details Provider Name:Taras Baker, 2020-09-23 09:30:00 AM, [address] [place] [address], [place], [address], Provider Name:Taras Baker, 2020-09-25 11:00:00 AM, [address] [place] [address], [address], Insurance Providers Payer Name Payer Address Payer Phone Insured Name Patient Relati onship to Insured Coverage Start Date Coverage End Date [facility] CORPORATE CLAIMS DEPT [address] [facility] [phone] SUZANNE GONZÁLES self
--- OUTSIDE RECORDS SUMMARY | 2020-10-14 13:30 | CCD ---
Author Author [facility] Organization [facility] Address Unknown Phone Unavailable Care Team Providers Care Forms Designer Name Role Phone Taras Baker Unavailable PROBLEMS Type Condition ICD9-CM Code IPH35-QF Code Onset Dates Condition S tatus SNOMED Code Notes Problem Alcohol abuse F10.10 Active 20191787 Problem Headache in back of head R51 Active 647592 Problem Essential hypertension I10 Active 80127624 Problem Sinus congestion R09.81 Active 79712686 Problem Seasonal allergic rhinitis due to other allergic trigger J30.89 Active 849284645 Problem Thrombocytopenia D69.6 Active 078379522 Problem Alcohol dependence with unspecified alcohol-induced disord er F10.29 Active 32789241 Problem Ascites due to alcoholic cirrhosis K70.31 Activ e 1291536244384022 Problem Vitamin D deficiency E55.9 Active 67119067 Problem Peripheral polyneuropathy G62.9 Active 215734 00 Problem Depression, unspecified depression type F32.9 Active 87135358 Problem Hypomagnesemia E83.42 Active 060952925 Problem Mixed hyperlipidemia E78.2 Active 237834071 Problem Fatty liver K76.0 Active 231443318 Problem Hyperbilirubinemia E80.6 Active 60897089 ALLERGIES No Known Allergies ENCOUNTERS from 1970 to 2020-08-28 Encounter Location Date Provider Diagnosis [address] [address] Aug, Taras Baker Peripheral polyneuropathy G62.9 IMMUNIZATIONS [...] Notes Total Score: 1 Interpretation: Alcohol Education Scientology: Question Answer Notes Scientology 13 Voodoo Sexual Hx: Question Answer Notes Had sex [...] Details Provider Name:Taras Baker, 2020-09-23 09:30:00 AM, [address] [place] [address], [place], [address], Provider Name:Taras Baker, 2020-09-25 11:00:00 AM, [address] [place] [address], [place], [address], Insurance Providers Payer Name Payer Address Payer Phone Insured Name Patient Relati onship to Insured Coverage Start Date Coverage End Date [facility] CORPORATE CLAIMS DEPT [address] [facility] [phone] SUZANNE GONZÁLES self
--- OUTSIDE RECORDS SUMMARY | 2020-10-14 13:30 | CCD ---
Author Author [facility] Organization [facility] Address Unknown Phone Unavailable Care Team Providers Care Ship Cleaner Name Role Phone Taras Baker Unavailable PROBLEMS Type Condition ICD9-CM Code PUA38-QW Code Onset Dates Condition S tatus SNOMED Code Notes Problem Alcohol abuse F10.10 Active 77547068 Problem Headache in back of head R51 Active 173579 Problem Essential hypertension I10 Active 84000900 Problem Sinus congestion R09.81 Active 51606672 Problem Seasonal allergic rhinitis due to other allergic trigger J30.89 Active 165359353 Problem Thrombocytopenia D69.6 Active 425844170 Problem Alcohol dependence with unspecified alcohol-induced disord er F10.29 Active 67986063 Problem Ascites due to alcoholic cirrhosis K70.31 Activ e 4008408988029887 Problem Vitamin D deficiency E55.9 Active 62864374 Problem Peripheral polyneuropathy G62.9 Active 258285 00 Problem Depression, unspecified depression type F32.9 Active 76425025 Problem Hypomagnesemia E83.42 Active 566677001 Problem Mixed hyperlipidemia E78.2 Active 756169825 Problem Fatty liver K76.0 Active 535698621 Problem Hyperbilirubinemia E80.6 Active 25984397 ALLERGIES No Known Allergies ENCOUNTERS from 1970 to 2020-09-07 Encounter Location Date Provider Diagnosis [facility] Resident [address] [place] [address] May, Taras Baker Hyperbilirubinemia E80.6 ; A [...] Notes Total Score: 1 Interpretation: Alcohol Education Synagogue: Question Answer Notes Synagogue 13 Spiritism Sexual Hx: Question Answer Notes Had sex [...] No Results REASON FOR VISIT ER F/U [facility] MEDICAL (GENERAL) HISTORY Type Description Date [...] however, patient has not been seen by telephone sales representative. I will place an urgent referral for [...] however, patient has not been seen by telephone sales representative. I will place an urgent referral for [...] hyperbilirubinemia Provider Name:Taras Baker, 2020-09-23 09:30:00 AM, [address] [place] [address], [address], Provider Name:Taras Baker, 2020-09-25 11:00:00 AM, [address] [place] [address], [address], Follow Up:6 Weeksfollow up neuropathic pain, hyperbilirubinemia Insurance Providers Payer Name Payer Address Payer Phone Insured Name Patient Relati onship to Insured Coverage Start Date Coverage End Date [facility] CORPORATE CLAIMS DEPT [address] [facility] [phone] SUZANNE GONZÁLES self
--- OUTSIDE RECORDS SUMMARY | 2020-10-14 13:33 | CCD ---
Author Author [facility] Address Unknown Phone Unavailable Care Team Providers Care Powerhouse Electrician Name Role Phone Stefania WHITE MD Unavailable Unavailable Stefania WHITE MD Unavailable Unavailable Stefania WHITE MD Unavailable Unavailable Stefania WHITE MD Unavailable Unavailable Stefania WHITE MD Unavailable Unavailable Stefania WHITE MD Unavailable Unavailable Stefania WHITE MD Unavailable Unavailable BARJIHANUGAStefania MD Unavailable Unavailable BARAYUGAStefania MD Unavailable Unavailable BARJIHANUGAStefania MD Unavailable Unavailable BARJIHANUGAStefania MD Unavailable Unavailable BARStefania GRIFFITH MD Unavailable Unavailable BARStefania GRIFFITH MD Unavailable Unavailable Stefania WHITE MD Unavailable Unavailable BARJIHANUGAStefania MD Unavailable Unavailable BARStefania GRIFFITH MD Unavailable Unavailable Stefania WHITE MD Unavailable Unavailable BARStefania GRIFFITH MD Unavailable Unavailable Stefania WHITE MD Unavailable [...] MD Unavailable Unavailable SURENDRAUGAStefania MD Unavailable Unavailable Stefania WHITE MD Unavailable Unavailable BARJIHANUGAStefania MD Unavailable Unavailable Slaughter, Onel Unavailable Unavailable Slaughter, Onel Unavailable Unavailable Slaughter, Onel Unavailable Unavailable Slaughter, Onel Unavailable Unavailable Slaughter, Onel Unavailable Unavailable BHUTTA, KATHY Unavailable Unavailable GAYAM, SINDHURI RESIDENT Unavailable Unavailable GAYAM, SINDHURI RESIDENT Unavailable Unavailable GAYAM, SINDHURI RESIDENT Unavailable Unavailable GAYAM, SINDHURI RESIDENT Unavailable Unavailable YAHIR VILLAR MD Unavailable JIANYAHIR MD Unavailable YAHIR VILLAR MD Unavailable YAHIR VILLAR MD Unavailable YAHIR VILLAR MD Unavailable YAHIR VILLAR MD Unavailable YAHIR VILLAR MD Unavailable THORPE, LUDIN MD Unavailable Unavailable THORPE, [...] is protected by Article 27-F of the [place] State Public Health law. If you continue you may have access to information: Regarding HIV / AIDS; Provided by facilities licensed or operated by the [facility] Office of Mental Health; or Provided by the [facility] Office for People With Developmental Disabilities. If such information is present, then the following [facility] mandated warning applies: This information has been [...] law may result in a fine or correction sentence or both. A general authorization for the release of medical or other information is NOT sufficient authorization for further disc losure. Allergies and Adverse Reactions Type Description Substance Reaction Status Data Source(s ) Drug Class NO KNOWN ALLERGIES NO KNOWN ALLERGIES [facility] Encounters Encounter Providers Location Date Indications Data Source(s ) Outpatient [address] [facility] [place] [address] 09/23/2020 12:00:00 AM EST eCW1 ([facility]) Unknown [address] [facility] [id number] 08/27/2020 12:00:00 AM EST eCW1 ([facility]) Unknown [address] [facility] [address] 08/26/2020 12:00:00 AM EST eCW1 ([facility]) Unknown [address] [facility] [place] [address] 07/29/2020 12:00:00 AM EST eCW1 ([facility]) Outpatient Attender: LIN Gottlieb/Kajal/Ilir/ Ladarius 07/23/2020 08:00:00 AM EST [facility] ([facility] Outpatient Attender: KATHY ALFORD 07/15/2020 12:00:00 AM E [facility] Outpatient Attender: KATHY ALFORD [id number] 12:00:00 AM EST - 07/08/2020 02:35:16 PM [facility] Unknown [address] [facility] [place] [address] 07/02/2020 12:00:00 AM EST eCW1 ([facility]) Outpatient Attender: Gerard Marcos 07/01/2020 12:00:00 AM E [facility] Unknown [address] [facility] [address] 06/29/2020 12:00:00 AM EST eCW1 ([facility]) Outpatient Attender: LIN Gottlieb/Kajal/Ilir/ Reindl 06/16/2020 10:50:00 AM EDT [facility] ([facility] [place] [address] [facility] [place] [address] 06/08/2020 12:00:00 AM EDT eCW1 ([facility]) [place] [address] [facility] [place] [address] 05/29/2020 12:00:00 AM EDT eCW1 ([facility]) [place] [address] [facility] [place] [address] 05/28/2020 12:00:00 AM EDT eCW1 ([facility]) Outpatient Attender: LIN Gottlieb/Kajal/Ilir/ Reindl 05/19/2020 01:30:00 PM EDT MEDENT ([facility], ) Outpatient Attender: YAHIR VILLAR MDReferrer: YAHIR VILLAR MD 05/07/2020 12:00:00 AM [facility] Outpatient Attender: YAHIR VILLAR MDReferrer: YAHIR VILLAR MD 05/07/2020 12:00:00 AM [facility] Outpatient Attender: LUDIN THORPE MD [id number] 05/04/2020 10:28:14 A M [facility] Unlisted evaluation and management service 04/21 06:10:00 PM EDT [facility] ([facility]) Inpatient Attender: Onel Adam santiago: YAHIR VILLAR MDAttender: CHIQUI PADRON RESIDENTAttender: REGINA MONTANEZ MDAdmitter: REGINA MONTANEZ MDReferrer: REGINA MONTANEZ MD [id number] 04/25/2020 12:00:00 AM EDT - 05/11/2020 02:37:00 PM EDT Alcoholic hepatitis without ascites [facility] Alcoholic hepatitis without ascites Patient discharged. [place] [address] [facility] [place] [address] 03/10/2020 12:00:00 AM EDT eCW1 ([facility]) Outpatient [address] [facility] [place] [address] 02/07/2020 12:00:00 AM EDT eCW1 ([facility]) Unknown [address] [facility] [place] [address] 02/04/2020 12:00:00 AM EDT eCW1 ([facility]) Outpatient 01/23/2020 04:24:00 AM EDT [facility] G[facility] Resident [address] [place] [address] 01/21/2020 12:00:00 AM EDT eCW1 ([facility]) [facility] [address] [facility] [place] [address] 01/14/2020 12:00:00 AM EDT eCW1 ([facility]) [facility] [place] [address] [facility] [place] [address] 01/09/2020 12:00:00 AM EDT eCW1 ([facility]) [facility] G[facility] Resident [address] [place] [address] 01/06/2020 12:00:00 AM EDT eCW1 ([facility]) [facility] Resident [address] [place] [address] 12/31/2019 12:00:00 AM EDT eCW1 ([facility]) [facility] [place] [address] [facility] [place] [address] 12/31/2019 12:00:00 AM EDT eCW1 ([facility]) [facility] G[facility] Resident [address] [place] [address] 12/30/2019 12:00:00 AM EDT eCW1 ([facility]) [facility] [place] [address] [facility] [place] [address] 12/23/2019 12:00:00 AM EDT eCW1 ([facility]) [facility] Resident [address] [place] [address] 12/23/2019 12:00:00 AM EDT eCW1 ([facility]) [facility] Resident [address] [place] [address] 11/11/2019 12:00:00 AM EDT eCW1 ([facility]) [facility] G[facility] Resident [address] [place] [address] 11/08/2019 12:00:00 AM EDT eCW1 ([facility]) [facility] G[facility] Resident [address] [place] [address] 11/08/2019 12:00:00 AM EDT eCW1 ([facility]) [facility] G[facility] Resident [address] [place] [address] 11/05/2019 12:00:00 AM EDT eCW1 ([facility]) [facility] Resident [address] [place] [address] 10/14/2019 12:00:00 AM EST eCW1 ([facility]) [facility] [address] [facility] [place] [address] 09/23/2019 12:00:00 AM EST eCW1 ([facility]) Outpatient 09/21/2019 09:01:00 AM EST [facility] [address] [facility] [place] [address] 09/12/2019 12:00:00 AM EST eCW1 ([facility]) Medications Medication Brand Name Start Date Product Form Dose Route Admi nistrative Instructions Pharmacy Instructions Status Indications Reaction Description Data Source(s) Abdominal Binder/Elastic Large - Abdominal Binder/Elastic La rge - 08/27/2020 12:00:00 AM EST active Abdomina l Binder/Elastic Large - eCW1 ([facility]) Abdominal Binder/Elastic Large - Abdominal Binder/Elastic La rge - 08/27/2020 12:00:00 AM EST active Abdomina l Binder/Elastic Large - eCW1 ([facility]) Abdominal Binder/Elastic Large - Abdominal Binder/Elastic La rge - 08/27/2020 12:00:00 AM EST active Abdomina l Binder/Elastic Large - eCW1 ([facility]) Abdominal Binder/Elastic Large - Abdominal Binder/Elastic La rge - 08/27/2020 12:00:00 AM EST active Abdomina l Binder/Elastic Large - eCW1 ([facility]) Amitriptyline Hydrochloride 25 MG Oral Tablet Amitript yline HCl 25 MG Amitriptyline HCl 25 MG 08/10/2020 12:00:00 AM EST 1.0 {tablet_at_b edtime} active Amitriptyline HCl 25 MG e CW1 ([facility]) Amitriptyline Hydrochloride 25 MG Oral Tablet Amitript yline HCl 25 MG Amitriptyline HCl 25 MG 08/10/2020 12:00:00 AM EST 1.0 {tablet_at_b edtime} active Amitriptyline HCl 25 MG e CW1 ([facility]) Amitriptyline Hydrochloride 25 MG Oral Tablet Amitript yline HCl 25 MG Amitriptyline HCl 25 MG 08/10/2020 12:00:00 AM EST 1.0 {tablet_at_b edtime} active Amitriptyline HCl 25 MG e CW1 ([facility]) Amitriptyline Hydrochloride 25 MG Oral Tablet Amitript yline HCl 25 MG Amitriptyline HCl 25 MG 08/10/2020 12:00:00 AM EST 1.0 {tablet_at_b edtime} active Amitriptyline HCl 25 MG e CW1 ([facility]) Ondansetron 4 MG Oral Tablet Ondansetron HCl 4 MG Ondansetro n HCl 4 MG 07/27/2020 12:00:00 AM EST 1.0 {tablet} active Ondansetron HCl 4 MG eCW1 ([facility]) Ondansetron 4 MG Oral Tablet Ondansetron HCl 4 MG Ondansetro n HCl 4 MG 07/27/2020 12:00:00 AM EST 1.0 {tablet} active Ondansetron HCl 4 MG eCW1 ([facility]) Ondansetron 4 MG Oral Tablet Ondansetron HCl 4 MG Ondansetro n HCl 4 MG 07/27/2020 12:00:00 AM EST 1.0 {tablet} active Ondansetron HCl 4 MG eCW1 ([facility]) Spironolactone 100 MG Oral Tablet Spironolactone 100 MG 02/2020 12:00:00 AM EST 1.0 {tablet} active Spironolact one 100 MG eCW1 ([facility]) Spironolactone 100 MG Oral Tablet Spironolactone 100 MG 02/2020 12:00:00 AM EST 1.0 {tablet} active Spironolact one 100 MG eCW1 ([facility]) Furosemide 40 MG Oral Tablet Furosemide 40 MG 07/27/2020 12:00:00 A M EST 1.0 {tablet} active Furosemide 40 MG eCW1 ( [facility]) Ondansetron 4 MG Oral Tablet Ondansetron HCl 4 MG Ondansetro n HCl 4 MG 07/27/2020 12:00:00 AM EST 1.0 {tablet} active Ondansetron HCl 4 MG eCW1 ([facility]) Spironolactone 100 MG Oral Tablet Spironolactone 100 MG 02/2020 12:00:00 AM EST 1.0 {tablet} active Spironolact one 100 MG eCW1 ([facility]) Ondansetron 4 MG Oral Tablet Ondansetron HCl 4 MG Ondansetro n HCl 4 MG 07/27/2020 12:00:00 AM EST 1.0 {tablet} active Ondansetron HCl 4 MG eCW1 ([facility]) Furosemide 40 MG Oral Tablet Furosemide 40 MG 07/27/2020 12:00:00 A M EST 1.0 {tablet} active Furosemide 40 MG eCW1 ( [facility]) Furosemide 40 MG Oral Tablet Furosemide 40 MG 07/27/2020 12:00:00 A M EST 1.0 {tablet} active Furosemide 40 MG eCW1 ( [facility]) Furosemide 40 MG Oral Tablet Furosemide 40 MG 07/27/2020 12:00:00 A M EST 1.0 {tablet} active Furosemide 40 MG eCW1 ( [facility]) Spironolactone 100 MG Oral Tablet Spironolactone 100 MG 02/2020 12:00:00 AM EST 1.0 {tablet} active Spironolact one 100 MG eCW1 ([facility]) Ondansetron 4 MG Oral Tablet Ondansetron HCL 07/23/2020 12:00:00 AM EST completed MEDENT ([facility] ) Amitriptyline Hydrochloride 10 MG Oral Tablet Amitript yline HCl 10 MG Amitriptyline HCl 10 MG 06/08/2020 12:00:00 AM EDT 1.0 {tablet_at_b edtime} active Amitriptyline HCl 10 MG e CW1 ([facility]) Amitriptyline Hydrochloride 10 MG Oral Tablet Amitript yline HCl 10 MG Amitriptyline HCl 10 MG 06/08/2020 12:00:00 AM EDT 1.0 {tablet_at_b edtime} active Amitriptyline HCl 10 MG e CW1 ([facility]) Amitriptyline Hydrochloride 10 MG Oral Tablet Amitript yline HCl 10 MG Amitriptyline HCl 10 MG 06/08/2020 12:00:00 AM EDT 1.0 {tablet_at_b edtime} active Amitriptyline HCl 10 MG e CW1 ([facility]) Amitriptyline Hydrochloride 10 MG Oral Tablet Amitript yline HCl 10 MG Amitriptyline HCl 10 MG 06/08/2020 12:00:00 AM EDT 1.0 {tablet_at_b edtime} active Amitriptyline HCl 10 MG e CW1 ([facility]) Vitamin K 1 5 MG Oral Tablet Phytonadione 5 MG Phytonadione 5 MG 05/28/2020 12:00:00 AM EDT 1.0 {tablet} suspended Phytonadione 5 MG eCW1 ([facility]) Vitamin K 1 5 MG Oral Tablet Phytonadione 5 MG Phytonadione 5 MG 05/28/2020 12:00:00 AM EDT 1.0 {tablet} suspended Phytonadione 5 MG eCW1 ([facility]) Vitamin K 1 5 MG Oral Tablet Phytonadione 5 MG Phytonadione 5 MG 05/28/2020 12:00:00 AM EDT 1.0 {tablet} suspended Phytonadione 5 MG eCW1 ([facility]) Vitamin K 1 5 MG Oral Tablet Phytonadione 5 MG Phytonadione 5 MG 05/28/2020 12:00:00 AM EDT 1.0 {tablet} suspended Phytonadione 5 MG eCW1 ([facility]) Vitamin K 1 5 MG Oral Tablet Phytonadione 5 MG Phytonadione 5 MG 05/28/2020 12:00:00 AM EDT 1.0 {tablet} suspended Phytonadione 5 MG eCW1 ([facility]) Vitamin K 1 5 MG Oral Tablet Phytonadione 5 MG Phytonadione 5 MG 05/28/2020 12:00:00 AM EDT 1.0 {tablet} suspended Phytonadione 5 MG eCW1 ([facility]) Vitamin K 1 5 MG Oral Tablet Phytonadione 5 MG Phytonadione 5 MG 05/28/2020 12:00:00 AM EDT 1.0 {tablet} active Ph ytonadione 5 MG eCW1 ([facility]) Vitamin K 1 5 MG Oral Tablet Phytonadione 5 MG Phytonadione 5 MG 05/28/2020 12:00:00 AM EDT 1.0 {tablet} suspended Phytonadione 5 MG eCW1 ([facility]) Vitamin K 1 5 MG Oral Tablet Phytonadione 5 MG Phytonadione 5 MG 05/28/2020 12:00:00 AM EDT 1.0 {tablet} active Ph ytonadione 5 MG eCW1 ([facility]) Hydrocortisone 10 MG Oral Tablet Hydrocortisone 10 MG Oral Tablet (CORTEF) Hydrocortisone 10 MG Oral Tablet (CORTEF) 05/12/2020 12:00:00 AM EDT 10 mg Oral aborted Take 1 tablet by lisa daily [facility] Hydrocortisone 10 MG Oral Tablet Hydrocortisone 10 MG Oral Tablet (CORTEF) Hydrocortisone 10 MG Oral Tablet (CORTEF) 05/12/2020 12:00:00 AM EDT 10 mg Oral aborted Take 1 tablet by lisa th daily [facility] Melatonin 3 MG Oral Tablet melatonin tablet 3 mg melatonin t ablet 3 mg 05/11/2020 10:00:00 PM EDT 3 mg Oral active 3 mg, Oral, Nightly, First dose on Mon05/11/20 at 2200, For 30 days [facility] Medication administered onsite Promethazine Hydrochloride 25 [...] 15 minutes. Do NOT give IV push.
[facility] Medication administered onsite Meclizine Hydrochloride 12.5 MG Oral Tablet meclizine (ANTIVERT) tablet 12.5 mg meclizine (ANTIVERT) tablet 12.5 mg 05/11/2020 12:10:20 PM EDT 12.5 m g Oral active 12.5 mg, Oral, T hree Times Daily-PRN, Dizziness, Starting Mon05/11/20 at 1210, For 72 hours [facility] Medication administered onsite potassium & sodium phosphates (PHOS-NAK) 280-160-250 MG 2 pa cket [id number] 05/11/2020 09:30:00 AM EDT 2 {packet} Oral active 2 packet, Oral, Four Times Daily-With Meals & Nightly, First dose on Mon05/11/20 at 0930, For 1 day
Dissolve in 75mls of water or juice.
Each 250 mg packet contains: 250 mg (8 mmol) elemental phosphorous, 164 mg (7.1 mEq) sodium, 278 mg (7.1 mEq) potassium.
[facility] Medication administered onsite Hydrocortisone 10 MG Oral Tablet Hydrocortisone 10 MG Oral Tablet (CORTEF) Hydrocortisone 10 MG Oral Tablet (CORTEF) 05/11/2020 12:00:00 AM EDT 10 mg Oral active Take 1 tablet by lisa th every morning [facility] Folic Acid 1 MG Oral Tablet Folic Acid 1 MG Oral Table t (FOLVITE) Folic Acid 1 MG Oral Tablet (FOLVITE) 05/11/2020 12:00:00 AM EDT 1 mg Oral active Take 1 tablet by mouth daily [facility] Calcium Carbonate 1250 MG / Cholecalcife rol 200 UNT Oral Tablet Calcium Carbonate-Vitamin D 500-200 MG-UNIT Oral Tablet (OSCAL-500) Calcium Carbonate- Vitamin D 500-200 MG-UNIT Oral Tablet (OSCAL-500) 05/11/2020 12:00:00 AM EDT 1 {tbl} Oral active Take 1 tablet by mouth d [facility] Thiamine 100 MG Oral Tablet Thiamine HCl 100 MG Oral T ablet (B-1) Thiamine HCl 100 MG Oral Tablet (B-1) 05/11/2020 12:00:00 AM EDT 100 mg Oral active [facility] On[facility] 4 MG Oral Tablet Ondansetron HCl 4 MG Oral Tablet (ZOFRAN) Ondansetron HCl 4 MG Oral Tablet (ZOFRAN) 05/11/2020 12:00:00 AM EDT 4 mg Oral active Take 1 tablet by mouth every 8 (eight) hours as needed for up to 7 days [facility] Meclizine Hydrochloride 12.5 MG Oral Tab let Meclizine HCl 12.5 MG Oral Tablet (ANTIVERT) Meclizine HCl 12.5 MG Oral Tablet (ANTIVERT) 0 12:00:00 AM EDT 12.5 mg Oral active Take 1 t ablet by mouth Three times daily as needed for Dizziness for up to 10 days [facility] Hydrocortisone 5 MG Oral Tablet Hydrocortisone 5 MG Or al Tablet (CORTEF) Hydrocortisone 5 MG Oral Tablet (CORTEF) 05/11/2020 12:00:00 AM EDT 5 mg Oral active Take 1 tablet by mouth ev rayshawn evening [facility] Hydrocortisone 10 MG Oral Tablet Hydrocortisone 10 MG Oral Tablet (CORTEF) Hydrocortisone 10 MG Oral Tablet (CORTEF) 05/11/2020 12:00:00 AM EDT 10 mg Oral aborted Take 1 tablet by lisa th every morning [facility] Aluminum Hydroxide 40 MG/ML / Magnesium Hydroxide 40 MG/ML / Simethicone 4 MG/ML Oral Suspension Alum & Mag Hydroxide-Simeth 200-200-20 MG/5ML Oral Suspension (MAALOX PLUS) Alum & Mag Hydroxide-Simeth 200-200-20 M G/5ML Oral Suspension (MAALOX PLUS) 05/11/2020 12:00:00 AM EDT 30 mL Oral abor rosa Take 30 mLs by mouth every 6 (six) hours as needed (heartburn) [facility] Aluminum Hydroxide 40 MG/ML / Magnesium Hydroxide 40 MG/ML / Simethicone 4 MG/ML Oral Suspension Alum & Mag Hydroxide-Simeth 200-200-20 MG/5ML Oral Suspension (MAALOX PLUS) Alum & Mag Hydroxide-Simeth 200-200-20 M G/5ML Oral Suspension (MAALOX PLUS) 05/11/2020 12:00:00 AM EDT 30 mL Oral acti ve Take 30 mLs by mouth every 6 (six) hours as needed (heartburn) [facility] Meclizine Hydrochloride 12.5 MG Oral Tab let Meclizine HCl 12.5 MG Oral Tablet (ANTIVERT) Meclizine HCl 12.5 MG Oral Tablet (ANTIVERT) 0 12:00:00 AM EDT 12.5 mg Oral aborted Take 1 t ablet by mouth Three times daily as needed for Dizziness for up to 10 days [facility] Hydrocortisone 5 MG Oral Tablet Hydrocortisone 5 MG Or al Tablet (CORTEF) Hydrocortisone 5 MG Oral Tablet (CORTEF) 05/11/2020 12:00:00 AM EDT 5 mg Oral aborted Take 1 tablet by mouth [place] [facility] Hydrocortisone 5 MG Oral Tablet Hydrocortisone 5 MG Or al Tablet (CORTEF) Hydrocortisone 5 MG Oral Tablet (CORTEF) 05/11/2020 12:00:00 AM EDT 5 mg Oral aborted Take 1 tablet by mouth [facility] Hydrocortisone 5 MG Oral Tablet Hydrocortisone 5 MG Or al Tablet (CORTEF) Hydrocortisone 5 MG Oral Tablet (CORTEF) 05/11/2020 12:00:00 AM EDT 5 mg Oral aborted Take 1 tablet by mouth [facility] Hydrocortisone 10 MG Oral Tablet hydrocortisone (EDA F) tablet 10 mg hydrocortisone (CORTEF) tablet 10 mg 05/10/2020 09:00:00 AM EDT 10 mg Oral active 10 mg, Oral, Preeti ly Standard, First dose on 05/10/20 at 0900, For 30 days [facility] Medication administered onsite Hydrocortisone 5 MG Oral Tablet hydrocortisone (CORTEF ) tablet 5 mg hydrocortisone (CORTEF) tablet 5 mg 05/09/2020 05:00:00 PM EDT 5 mg Oral active 5 mg, Oral, Daily S juan c, First dose on 05/09/20 at 1700, For 30 days
Take with food.
[facility] Medication administered onsite Oxycodone Hydrochloride 5 [...] only) require Pain Service consultation and approval.
[facility] Medication administered onsite Acetaminophen 325 MG [...] mg from all sources in 24 hours.
[facility] Medication administered onsite ondansetron (ZOFRAN) injection [...] 1223, For 7 days [Order 2 End] [facility] Medication administered onsite iohexol (OMNIPAQUE) 300 MG/ML contrast injection 100 mL [id number] 05/07/2020 09:00:00 PM EDT 100 mL Given by IV completed 100 mL, Given by IV, 1 TIME IMAGING, [facility] 05/07/20 at 2100, For 1 dose [facility] Medication administered onsite iohexol (OMNIPAQUE) 240 MG/ML contrast 20 mL [id number] 06:34:42 PM EDT 20 mL Oral completed 20 mL, Oral, O nce PRN, Contrast, Per Protocol, Starting Melissa 05/07/20 at 1834, For [address] Scanner prior. call or contact centre manager to CT.Dilute in 500 mL liquid x1 fire production operator to CT scan - per protocol. Use "Contrast dose chart" link for dosing guidelines.
[facility] Medication administered onsite iohexol (OMNIPAQUE) 240 MG/ML contrast 20 mL [id number] 06:34:42 PM EDT 20 mL Oral completed 20 mL, Oral, O nce PRN, Contrast, Per Protocol, Starting Melissa 05/07/20 at 1834, For [address] to tell RN administration time of first dose. Dilute in 500 mL liquid x1 Now per protocol. Use "Contrast dose chart" link for dosing guidelines.
[facility] Medication administered onsite Magnesium Oxide 400 MG Oral Tablet Magnesium Oxide (MA G-OX) tablet 400 mg Magnesium Oxide (MAG-OX) tablet 400 mg 05/07/2020 02:30:00 PM EDT 4 00 mg Oral completed 400 mg, Oral, D aily Standard, First dose on Melissa 05/07/20 at 1430, For 5 doses [facility] Medication administered onsite TC-99M mebrofenin (CHOLETEC) [id number] 05/07/2020 12:30:00 PM EDT Intravenous completed Intravenous, Once, Melissa 05/07/20 at 1230, For 1 dose, Imaging Protocol [facility] Medication administered onsite Glucose 50 MG/ML / Potassium Chloride 0. 02 MEQ/ML / Sodium Chloride 0.154 MEQ/ML Injectable Solution dextrose 5 % and 0.9 % NaCl with KCl 20 mEq infusion dextrose 5 % and 0.9 % NaCl with KCl 20 mEq infusion 05/07/2020 09:00:00 AM EDT Intravenous aborted at 75 mL/hr, Intravenous, Continuous, Starting Melissa 05/07/20 at 0900, For 2 days [facility] Medication administered onsite Potassium Chloride 0.02 MEQ/ML / Sodium Chloride 0.154 MEQ/ML Injectable Solution 0.9 % NaCl with KCl 20 mEq infusion 0.9 % NaCl with KCl 20 mEq infusion 05/07/2020 08:00:00 AM EDT Intravenous aborte d at 75 mL/hr, Intravenous, Continuous, Starting Melissa 05/07/20 at 0800, For 24 hours [facility] Medication administered onsite Lactulose 83.3 MG/ML Oral Solution lactulose (CEPHULAC ) packet 10 g lactulose (CEPHULAC) packet 10 g 05/06/2020 09:30:00 AM EDT 10 g Oral active 10 g, Oral, 2 Times Daily, First dose (after last reorder) on Mon05/06/20 at 0930, For 58 doses
Dissolve in 4 oz water. Can hold if pt has 2 bowel movements in a day.
[facility] Medication administered onsite Promethazine Hydrochloride 25 MG/ML Inje ctable Solution promethazine (PHENERGAN) injection 25 mg promethazine (PHENERGAN) injection 25 mg 05/06/2020 08 :59:44 AM EDT 25 mg Intravenous completed 25 mg, Intravenous, Every 6 hours PRN, Nausea, Vomiting, Starting [facility] 05/06/20 at 0859, For 5 days 1 hour
If ordered intravenous then must be diluted in 50 mL of sodium chloride 0.9 % and administered over 15 minutes. Do NOT give IV push.
[facility] [facility] Medication administered onsite Calcium Carbonate 1250 MG / Cholecalcife rol 200 UNT Oral Tablet Calcium Carbonate-Vitamin D 500-200 MG-UNIT Oral Tablet (OSCAL-500) Calcium Carbonate- Vitamin D 500-200 MG-UNIT Oral Tablet (OSCAL-500) 05/06/2020 12:00:00 AM EDT 1 {tbl} Oral aborted Take 1 tablet by mouth d [facility] Acetaminophen 325 MG / Hydrocodone George trate 5 MG Oral Tablet HYDROcodone- Acetaminophen 5-325 MG Oral Tablet (LORTAB) HYDROcodone-Acetaminophen 5-325 MG Oral Tablet (LORTAB) 05/06/2020 12:00:00 AM EDT 1 {tbl} Oral aborted Take 1 tablet by mouth every 6 (six) hours as needed for up to 3 days, Max Daily Dose: 4 tablets [facility] Meclizine Hydrochloride 12.5 MG Oral Tab let Meclizine HCl 12.5 MG Oral Tablet (ANTIVERT) Meclizine HCl 12.5 MG Oral Tablet (ANTIVERT) 0 12:00:00 AM EDT 12.5 mg Oral aborted Take 1 t ablet by mouth Three times daily as needed for Dizziness for up to 10 days [facility] Folic Acid 1 MG Oral Tablet Folic Acid 1 MG Oral Table t (FOLVITE) Folic Acid 1 MG Oral Tablet (FOLVITE) 05/06/2020 12:00:00 AM EDT 1 mg Oral aborted Take 1 tablet by mouth daily [facility] Ondansetron 4 MG Oral Tablet Ondansetron HCl 4 MG Oral Tablet (ZOFRAN) Ondansetron HCl 4 MG Oral Tablet (ZOFRAN) 05/06/2020 12:00:00 AM EDT 4 mg Oral aborted Take 1 tablet by mouth every 8 (eight) hours as needed for up to 7 days [facility] Tab-A-Franki/Beta Carotene Oral Tablet [id number] 05/06/2020 12:00: 00 AM EDT 1 {tbl} Oral aborted Take 1 tablet by mouth d [facility] Thiamine 100 MG Oral Tablet Thiamine HCl 100 MG Oral T ablet (B-1) Thiamine HCl 100 MG Oral Tablet (B-1) 05/06/2020 12:00:00 AM EDT 100 mg Oral aborted Take 1 tablet [facility] in dextrose 5 % infusion (premix) 1 g 40827-05/05/2020 07:00:00 PM EDT 1 g Intravenous completed 1 g, Intravenous, Administer over 60 Minutes, Once, Mon05/05/20 at 1900, For 1 dose [facility] Medication administered onsite potassium chloride (KLOR-CON) packet 40 mEq [id number] 05/05/2020 07:00:00 PM EDT 40 meq Oral completed 40 mEq , Oral, 2 Times Daily, First dose on Mon05/05/20 at 1900, For 2 doses
Mix in 4 ounces of water or juice
[facility] Medication administered onsite magnesium sulfate in dextrose 5 % infusion (premix) 8 mEq 05/05/2020 11:30:00 AM EDT 8 meq Intravenous completed 8 mEq, Intravenous, Administer over 60 Minutes, Once, Mon05/05/20 at 1130, For 1 dose
each 8 mEq equivalent to 1 gm
[facility] Medication administered onsite Acetaminophen 325 MG [...] mg from all sources in 24 hours.
[facility] Medication administered onsite Potassium Chloride 0.02 MEQ/ML / Sodium Chloride 0.154 MEQ/ML Injectable Solution 0.9 % NaCl with KCl 20 mEq infusion 0.9 % NaCl with KCl 20 mEq infusion 05/05/2020 10:00:00 AM EDT Intravenous aborte d at 75 mL/hr, Intravenous, Continuous, Starting Mon05/05/20 at 1000, For 30 days [facility] Medication administered onsite multivitamin tablet 1 tablet [id number] 05/05/2020 09:00:00 AM EDT 1 {tbl} Oral active 1 tablet, Oral , Daily Standard, First dose on Mon05/05/20 at 0900, For 30 days [facility] Medication administered onsite Meclizine Hydrochloride 12.5 MG Oral Tablet meclizine (ANTIVERT) tablet 12.5 mg meclizine (ANTIVERT) tablet 12.5 mg 05/04/2020 07:03:43 PM EDT 12.5 m g Oral completed 12.5 mg, Oral, T hree Times Daily-PRN, Dizziness, Starting Mon05/04/20 at 1903, For 6 days 15 hours [facility] Medication administered onsite Meclizine Hydrochloride 12.5 MG Oral Tablet meclizine (ANTIVERT) tablet 12.5 mg meclizine (ANTIVERT) tablet 12.5 mg 05/04/2020 01:45:00 AM EDT 12.5 m g Oral completed 12.5 mg, Oral, Once, 04/21 at 0145, For 1 dose [facility] Medication administered onsite Oxazepam 10 MG Oral Capsule oxazepam (SERAX) capsule 1 0 mg oxazepam (SERAX) capsule 10 mg 05/03/2020 02:00:00 PM EDT 10 mg Oral comp leted 10 mg, Oral, Three Times Daily Standard, First dose (after last modification) on Mon05/03/20 at 1400, For 1 dose [facility] Medication administered onsite potassium chloride (KLOR-CON) packet 40 mEq [id number] 05/02/2020 08:00:00 AM EDT 40 meq Oral completed 40 mEq , Oral, Once, 05/02/20 at 0800, For 1 dose
Mix in 4 ounces of water or juice
[facility] Medication administered onsite Hydroxyzine Pamoate 25 MG Oral Capsule hydrOXYzine ( STARIL) capsule 25 mg hydrOXYzine (VISTARIL) capsule 25 mg 05/01/2020 09:00:00 PM EDT 25 mg Oral completed 25 mg, Oral, Once, Mon at 2100, For 1 dose [facility] Medication administered onsite gabapentin 100 MG Oral Capsule gabapentin (NEURONTIN) capsule 100 mg gabapentin (NEURONTIN) capsule 100 mg 05/01/2020 05:00:00 PM EDT 100 mg Oral aborted 100 mg, Oral, Three Times D aily Standard, First dose on Mon05/01/20 at 1700, For 30 days [facility] Medication administered onsite Potassium Chloride 0.1 MEQ/ML Injectable Solution potassium chloride 10 mEq in 100 mL IVPB (premix) potassium chloride 10 mEq in 100 mL IVPB (premix) 05/01/2020 04:00:00 PM EDT 10 meq Intravenous completed 10 mEq, Intravenous, Every 1 hour, First dose (after last modification) on Mon05/01/20 at 1600, For 2 doses [facility] Medication administered onsite Potassium Chloride 0.1 MEQ/ML Injectable Solution potassium chloride 10 mEq in 100 mL IVPB (premix) potassium chloride 10 mEq in 100 mL IVPB (premix) 05/01/2020 12:00:00 PM EDT 10 meq Intravenous aborted 10 mEq, Intravenous, Every 1 hour, First dose on Mon05/01/20 at 1200, For 4 doses [facility] Medication administered onsite Magnesium Oxide 400 MG Oral Tablet Magnesium Oxide (MA G-OX) tablet 400 mg Magnesium Oxide (MAG-OX) tablet 400 mg 05/01/2020 09:00:00 AM EDT 4 00 mg Oral completed 400 mg, Oral, 2 Times Daily, First dose on Mon05/01/20 at 0900, For 1 dose [facility] Medication administered onsite potassium & sodium phosphates (PHOS-NAK) 280-160-250 MG 1 pa cket [id number] 04/30/2020 05:30:00 PM EDT 1 {packet} Oral completed 1 packet, Oral, Before Meals & Nightly - Four Times Daily, First dose on Mon04/30/20 at 1730, For 1 dose
Dissolve in 75mls of water or juice.
Each 250 mg packet contains: 250 mg (8 mmol) elemental phosphorous, 164 mg (7.1 mEq) sodium, 278 mg (7.1 mEq) potassium.
[facility] Medication administered onsite Calcium Carbonate 1250 MG / Cholecalcife rol 200 UNT Oral Tablet calcium-vitamin D (OSCAL-500) 500-200 MG-UNIT per tablet 1 tablet calcium-vitamin D (OSCAL-500) 500-200 MG-UNIT per tablet 1 tablet 04/30/2020 09:00:00 AM EDT 1 {tbl } Oral active 1 tablet, Oral, Daily Standard, First dose on Mon04/30/20 at 0900, For 30 days [facility] Medication administered onsite magnesium sulfate in dextrose 5 % infusion (premix) 8 mEq 04 [id number] 04/29/2020 02:00:00 PM EDT 8 meq Intravenous completed 8 mEq, Intravenous, Administer over 60 Minutes, Once, Mon04/29/20 at 1400, For 1 dose
each 8 mEq equivalent to 1 gm
[facility] Medication administered onsite sodium chloride (preservative [...] Extended Dwell/Midline Peripheral Catheter.
[Order 3 End] [facility] Medication administered onsite Hydroxyzine Hydrochloride 10 MG Oral Tablet hydrOXYzin e (ATARAX) tablet 10 mg hydrOXYzine (ATARAX) tablet 10 mg 04/29/2020 12:30:00 AM EDT 10 mg Oral completed 10 mg, Oral, Once, Mon04/29/20 at 0030, For 1 dose [facility] Medication administered onsite Dextromethorphan Hydrobromide 2 MG/ML / Guaifenesin 20 MG/ML Oral Suspension guaifenesin-dextromethorphan (ROBITUSSIN DM) 100-10 MG/5ML syrup 5 mL guaifenesin-dextromethorphan (ROBITUSSIN DM) 100-10 MG/5ML syrup 5 mL 04/28/2020 07:00:00 PM EDT 5 mL Oral active 5 mL, Oral, Every 4 hours PRN, Cough, Starting Mon04/28/20 at 1900, For 30 days [facility] Medication administered onsite Potassium Chloride 0.1 MEQ/ML Injectable Solution potassium chloride 10 mEq in 100 mL IVPB (premix) potassium chloride 10 mEq in 100 mL IVPB (premix) 04/28/2020 04:00:00 PM EDT 10 meq Intravenous completed 10 mEq, Intravenous, Every 1 hour, First dose (after last reorder) on Mon04/28/20 at 1600, For 4 doses [facility] Medication administered onsite phytonadione (VITAMIN K1) 10 mg in dextrose 5 % 50 mL IVPB 04/28/2020 02:30:00 PM EDT 10 mg Intravenous completed 10 mg, Intravenous, Administer over 15 Minutes, Once, Mon04/28/20 at 1430, For 1 dose [facility] Medication administered onsite Oxycodone Hydrochloride 5 [...] only) require Pain Service consultation and approval.
[facility] Medication administered onsite Oxazepam 10 MG Oral Capsule oxazepam (SERAX) capsule 1 0 mg oxazepam (SERAX) capsule 10 mg 04/27/2020 09:00:00 PM EDT 10 mg Oral abor rosa 10 mg, Oral, Three Times Daily Standard, First dose (after last modification) on Mon04/27/20 at 2100, For 24 doses [facility] Medication administered onsite Lactulose 83.3 MG/ML Oral Solution lactulose (CEPHULAC ) packet 10 g lactulose (CEPHULAC) packet 10 g 04/27/2020 09:00:00 PM EDT 10 g Oral aborted 10 g, Oral, 2 Times Daily, First dose (after last modification) on Mon04/27/20 at 2100, For 58 doses
Dissolve in 4 oz water
[facility] Medication administered onsite sodium chloride (preservative [...] Heparin 10 units/mL to lock. Reference Policy C-34H Central Line Policy.
[Order 1 End] [Order 2 Start] Name: heparin lock flush 10 UNIT/ML injection 20 Units Signed Summary: 20 Units, Intravenous, PRN, Line Care, Starting Mon04/27/20 at 1417, For 30 days
Verify blood return before use. Flush with 10 mL of Sodium Chloride 0.9 % before and after infusions or blood sampling followed-by 2 mL Heparin 10 units/mL to lock.Reference Policy [facility]-34 Central Line Policy.
[Order 2 End] [Order 3 Start] Name: sodium chloride (preservative free) 0.9 % flush 10 mL Signed Summary: 10 mL, Intravenous, Every 12 hours, First dose on Mon04/27/20 at 1430, For 30 days
WHEN NOT IN USE - Verify blood return before use. Flush with 10 mL of Sodium Chloride 0.9 % and 2 mL Heparin 10 units/mL.Reference Policy [facility]-34 Central Line Policy.
[Order 3 End] [Order 4 Start] Name: heparin lock flush 10 UNIT/ML injection 20 Units Signed Summary: 20 Units, Intravenous, Every 12 hours, First dose on Mon04/27/20 at 1430, For 30 days
WHEN NOT IN USE - Verify blood return before use. Flush with 10 mL of Sodium Chloride 0.9 % and 2 mL Heparin 10 units/mL.Reference Policy [address] Central Line Policy.
[Order 4 End] [facility] Medication administered onsite Potassium Chloride 0.1 MEQ/ML Injectable Solution potassium chloride 10 mEq in 100 mL IVPB (premix) potassium chloride 10 mEq in 100 mL IVPB (premix) 04/27/2020 12:00:00 PM EDT 10 meq Intravenous completed 10 mEq, Intravenous, Administer over 60 Minutes, Every 1 hour, First dose on Mon04/27/20 at 1200, For 4 doses [facility] Medication administered onsite magnesium sulfate in dextrose 5 % infusion (premix) 8 mEq 04 [id number] 04/27/2020 12:00:00 PM EDT 8 meq Intravenous completed 8 mEq, Intravenous, Administer over 60 Minutes, Every 1 hour, First dose on Mon04/27/20 at 1200, For 2 doses
each 8 mEq equivalent to 1 gm
[facility] Medication administered onsite Vitamin K 1 5 MG Oral Tablet phytonadione (MEPHYTON) t ablet 10 mg phytonadione (MEPHYTON) tablet 10 mg 04/27/2020 11:45:00 AM EDT 10 mg Oral completed 10 mg, Oral, Once, Mon04/27/20 at 1145, For 1 dose [facility] Medication administered onsite prednisolone 3 MG/ML Oral Solution predn isoLONE (ORAPRED) 15 MG/5ML solution 40 mg prednisoLONE (ORAPRED) 15 MG/5ML solution 40 mg 04/27/2020 11:45 :00 AM EDT 40 mg Oral aborted 40 mg, Ora l, Daily Standard, First dose on Mon04/27/20 at 1145, For 10 doses [facility] Medication administered onsite Prednisone 20 MG Oral Tablet predniSONE (DELTASONE) ta blet 40 mg predniSONE (DELTASONE) tablet 40 mg 04/27/2020 09:00:00 AM EDT 40 mg Oral aborted 40 mg, Oral, Daily Standard, First dose on Mon04/27/20 at 0900, For 30 days
Take with food.
[facility] Medication administered onsite Lactulose 83.3 MG/ML Oral Solution lactulose (CEPHULAC ) packet 20 g lactulose (CEPHULAC) packet 20 g 04/26/2020 09:00:00 PM EDT 20 g Oral aborted 20 g, Oral, 2 Times Daily, First dose on Mon04/26/20 at 2100, For 30 days
Dissolve in 4 oz water
[facility] Medication administered onsite Potassium Chloride 0.1 MEQ/ML Injectable Solution potassium chloride 10 mEq in 100 mL IVPB (premix) potassium chloride 10 mEq in 100 mL IVPB (premix) 04/26/2020 09:00:00 PM EDT 10 meq Intravenous completed 10 mEq, Intravenous, Every 1 hour, First dose on Mon04/26/20 at 2100, For 4 doses [facility] Medication administered onsite Oxazepam 10 MG Oral Capsule oxazepam (SERAX) capsule 2 0 mg oxazepam (SERAX) capsule 20 mg 04/26/2020 04:00:00 PM EDT 20 mg Oral abor rosa 20 mg, Oral, Three Times Daily Standard, First dose (after last modification) on Mon04/26/20 at 1600, For 18 doses [facility] Medication administered onsite dextrose 5 %-0.9 % sodium chloride infusion [id number] 04/26/2020 02:45:00 PM EDT Intravenous completed at 100 mL/hr, Intravenous, Continuous, Starting 04/26/20 at 1445, For 2 days [facility] Medication administered onsite Vitamin K 1 5 MG Oral Tablet phytonadione (MEPHYTON) t ablet 10 mg phytonadione (MEPHYTON) tablet 10 mg 04/26/2020 01:30:00 PM EDT 10 mg Oral completed 10 mg, Oral, Once, 04/26/20 at 1330, For 1 dose [facility] Medication administered onsite Oxazepam 10 MG Oral Capsule oxazepam (SERAX) capsule 1 0 mg oxazepam (SERAX) capsule 10 mg 04/26/2020 11:30:00 AM EDT 10 mg Oral comp leted 10 mg, Oral, Once, 04/26/20 at 1130, For 1 dose [facility] Medication administered onsite sodium chloride 0.9 % bolus 1,000 mL [id number] 04/26/2020 10:00: 00 AM EDT 1000 mL Intravenous completed 1,000 mL , Intravenous, Once, 04/26/20 at 1000, For 1 dose [facility] Medication administered onsite magnesium sulfate in dextrose 5 % infusion (premix) 8 mEq 11 27-6727-04/26/2020 09:00:00 AM EDT 8 meq Intravenous completed 8 mEq, Intravenous, Administer over 60 Minutes, Every 1 hour, First dose on 04/26/20 at 0900, For 3 doses
each 8 mEq equivalent to 1 gm
[facility] Medication administered onsite Pentoxifylline 400 MG Extended Release O ral Tablet pentoxifylline (TRENTAL) CR tablet 400 mg pentoxifylline (TRENTAL) CR tablet 400 mg 04/25/2020 0 6:00:00 PM EDT 400 mg Oral aborted 400 mg, Oral, Three Times Daily-With Meals, First dose on 04/25/20 at 1800, For 30 days
Take with food.
[facility] Medication administered onsite Oxazepam 10 MG Oral Capsule oxazepam (SERAX) capsule 1 0 mg oxazepam (SERAX) capsule 10 mg 04/25/2020 04:00:00 PM EDT 10 mg Oral abor rosa 10 mg, Oral, Three Times Daily Standard, First dose on 04/25/20 at 1600, For 7 days [facility] Medication administered onsite Potassium Chloride 0.1 MEQ/ML Injectable Solution potassium chloride 10 mEq in 100 mL IVPB (premix) potassium chloride 10 mEq in 100 mL IVPB (premix) 04/25/2020 02:00:00 PM EDT 10 meq Intravenous completed 10 mEq, Intravenous, Every 1 hour, First dose (after last reorder) on 04/25/20 at 1400, For 4 doses [facility] Medication administered onsite sodium chloride 0.9 % 1,000 mL with MVI adult 10 mL, folic acid 1 mg, magnesium sulfate 16 mEq, thiamine (B-1) 100 mg infusion 04/25/2020 09:00:00 AM EDT Intravenous aborted Intravenous, Continuous, Starting 04/25/20 at 0900, For 3 days [facility] Medication administered onsite pantoprazole 4 MG/ML Injectable Solution pantoprazole (PROTONIX) injection 40 mg pantoprazole (PROTONIX) injection 40 mg 04/25/2020 09:00:00 AM EDT 40 mg Intravenous active 40 mg, Intrav enous, Daily Standard, First dose on 04/25/20 at 0900, For 30 days
Dilute with 10 mL of 0.9% NaCl.Give IVP over 2 minutes. Flush before and after.
[facility] Medication administered onsite 0.4 ML Enoxaparin [...] hours after epidural catheter has been removed.
[facility] Medication administered onsite Thiamine 100 MG Oral Tablet thiamine (B-1) tablet 100 mg thiamine (B-1) tablet 100 mg 04/25/2020 09:00:00 AM EDT 100 mg Oral active 100 mg, Oral, Daily Standard, First dose on 04/25/20 at 0900, For 30 days [facility] Medication administered onsite Folic Acid 1 MG Oral Tablet folic acid (FOLVITE) table t 1 mg folic acid (FOLVITE) tablet 1 mg 04/25/2020 09:00:00 AM EDT 1 mg Oral active 1 mg, Oral, Daily Standard, First dose on 04/25/20 at 0900, For 30 days [facility] Medication administered onsite Potassium Chloride 0.1 MEQ/ML Injectable Solution potassium chloride 10 mEq in 100 mL IVPB (premix) potassium chloride 10 mEq in 100 mL IVPB (premix) 04/25/2020 08:00:00 AM EDT 10 meq Intravenous completed 10 mEq, Intravenous, Every 1 hour, First dose on 04/25/20 at 0800, For 4 doses [facility] Medication administered onsite potassium chloride (K-DUR) dissolvable tablet 40 mEq [id number] 04/25/2020 08:00:00 AM EDT 40 meq Oral completed 40 mEq, Oral, Once, 04/25/20 at 0800, For 1 dose
Do not crush or chew
[facility] Medication administered onsite 50 ML Magnesium Sulfate 40 MG/ML Injecti on magnesium sulfate infusion 2 g/50 mL (premix) magnesium sulfate infusion 2 g/50 mL (premix) 04/25/20 08:00:00 AM EDT 16 meq Intravenous completed 16 mEq, Intravenous, Administer over 60 Minutes, Once, 04/25/20 at 0800, For 1 dose
each 8 mEq equivalent to 1 gm
[facility] Medication administered onsite insulin lispro (HumaLOG) injection LOW DOSE EATING INS ULIN patients 1-8 Units [id number] 04/25/2020 08:00:00 AM EDT U Subcutaneous aborted 1-8 Units, Subcutaneous, Three Times Daily-With Meals, First dose on 04/25/20 at 0800, For 30 days
Nursing MUST open the 'SQ Insulin Dosing Charts' Sidebar Report, or, the Patient Summary or Summary Report within the ED.
[facility] Medication administered onsite iohexol (OMNIPAQUE) 300 MG/ML contrast injection 100 mL [id number] 04/25/2020 05:45:00 AM EDT 100 mL Given by IV completed 100 mL, Given by IV, 1 TIME IMAGING, 04/25/20 at 0545, For 1 dose [facility] Medication administered onsite lactated ringers bolus 2,000 mL [id number] 04/25/2020 05:00:00 AM EDT 2000 mL Intravenous completed 2,000 mL , Intravenous, Once, 04/25/20 at 0500, For 1 dose [facility] Medication administered onsite diazePAM (VALIUM) injection 10 mg [id number] 04/25/2020 04:00:00 AM EDT 10 mg Intravenous aborted 10 mg, I ntravenous, Every 1 hour, First dose on 04/25/20 at 0400, For 4 doses
Maximum of 40 mg in 4 hour period. If patient is sleeping, do not wake them to administer Diazepam or to assess the CIWA score. Assess once patient awakens.
[facility] Medication administered onsite morphine sulfate (PF) injection 4 mg [id number] 04/25/2020 03:28: 20 AM EDT 4 mg Intravenous aborted 4 mg, In travenous, Every 4 hours PRN, Moderate Pain (Pain Scale Score 4-6), Severe Pain (Pain Scale Score 7-10), Starting 04/25/20 at 0328, For 3 days [facility] Medication administered onsite Calcium Chloride 0.0014 MEQ/ML / Potassi um Chloride 0.004 MEQ/ML / Sodium Chloride 0.103 MEQ/ML / Sodium Lactate 0.028 MEQ/ML Injectable Solution lactated ringers infusion lactated ringers infusion 04/25/2020 03:15:00 AM EDT 100 mL/h Intravenous aborted at 100 m L/hr, Intravenous, Continuous, Starting 04/25/20 at 0315, For 30 days [facility] Medication administered onsite dextrose 50 % IV solution 25 mL [id number] 04/25/2020 03:04:32 AM E DT 25 mL Intravenous active 25 mL, Intrav enous, PRN, Other, blood glucose <55, Starting 04/25/20 at 0304, For 30 days
Not for midline administration.
[facility] Medication administered onsite Glucagon 1 MG Injection glucagon (human recombinant) ( GLUCAGEN) injection 1 mg glucagon (human recombinant) (GLUCAGEN) injection 1 mg 04/25/2020 03:04:32 AM EDT 1 mg Intramuscular active 1 mg, Intramuscular, PRN, for glucose <55 without IV access, Starting 04/25/20 at 0304, For 30 days [facility] Medication administered onsite Glucose 0.417 MG/MG Oral Gel glucose (GLUTOSE) 40 % or al gel 15 g glucose (GLUTOSE) 40 % oral gel 15 g 04/25/2020 03:04:32 AM EDT 15 g Oral active 15 g, Oral, PRN, Low blood s ugar, for gluose 55-69 mg/dl and able to take PO, Starting 04/25/20 at 0304, For 30 days [facility] Medication administered onsite Meclizine Hydrochloride 25 MG Chewable Tablet Meclizin e HCl 25 MG Meclizine HCl 25 MG 02/07/2020 12:00:00 AM EDT 1.0 {tablet_as_needed} active Meclizine HCl 25 MG eCW1 ([facility]) Naltrexone hydrochloride 50 MG Oral Tablet Naltrexone HCl 50 MG Naltrexone HCl 50 MG 02/07/2020 12:00:00 AM EDT 1.0 {tablet} activ e Naltrexone HCl 50 MG eCW1 ([facility]) doxycycline hyclate 50 MG Oral Capsule Doxycycline Hyc late 50 MG Doxycycline Hyclate 50 MG 01/01/2020 12:00:00 AM EDT 1.0 {capsule} active Doxycycline Hyclate 50 MG eCW1 ([facility]) doxycycline hyclate 50 MG Oral Capsule Doxycycline Hyc late 50 MG Doxycycline Hyclate 50 MG 01/01/2020 12:00:00 AM EDT 1.0 {capsule} active Doxycycline Hyclate 50 MG eCW1 ([facility]) doxycycline hyclate 50 MG Oral Capsule Doxycycline Hyc late 50 MG Doxycycline Hyclate 50 MG 01/01/2020 12:00:00 AM EDT 1.0 {capsule} active Doxycycline Hyclate 50 MG eCW1 ([facility]) doxycycline hyclate 50 MG Oral Capsule Doxycycline Hyc late 50 MG Doxycycline Hyclate 50 MG 01/01/2020 12:00:00 AM EDT 1.0 {capsule} active Doxycycline Hyclate 50 MG eCW1 ([facility]) doxycycline hyclate 50 MG Oral Capsule Doxycycline Hyc late 50 MG Doxycycline Hyclate 50 MG 01/01/2020 12:00:00 AM EDT 1.0 {capsule} active Doxycycline Hyclate 50 MG eCW1 ([facility]) doxycycline hyclate 50 MG Oral Capsule Doxycycline Hyc late 50 MG Doxycycline Hyclate 50 MG 01/01/2020 12:00:00 AM EDT 1.0 {capsule} active Doxycycline Hyclate 50 MG eCW1 ([facility]) doxycycline hyclate 50 MG Oral Capsule Doxycycline Hyc late 50 MG Doxycycline Hyclate 50 MG 01/01/2020 12:00:00 AM EDT 1.0 {capsule} active Doxycycline Hyclate 50 MG eCW1 ([facility]) doxycycline hyclate 50 MG Oral Capsule Doxycycline Hyc late 50 MG Doxycycline Hyclate 50 MG 01/01/2020 12:00:00 AM EDT 1.0 {capsule} active Doxycycline Hyclate 50 MG eCW1 ([facility]) doxycycline hyclate 50 MG Oral Capsule Doxycycline Hyc late 50 MG Doxycycline Hyclate 50 MG 01/01/2020 12:00:00 AM EDT 1.0 {capsule} active Doxycycline Hyclate 50 MG eCW1 ([facility]) doxycycline hyclate 50 MG Oral Capsule Doxycycline Hyc late 50 MG Doxycycline Hyclate 50 MG 01/01/2020 12:00:00 AM EDT 1.0 {capsule} active Doxycycline Hyclate 50 MG eCW1 ([facility]) doxycycline hyclate 50 MG Oral Capsule Doxycycline Hyc late 50 MG Doxycycline Hyclate 50 MG 01/01/2020 12:00:00 AM EDT 1.0 {capsule} active Doxycycline Hyclate 50 MG eCW1 ([facility]) doxycycline hyclate 50 MG Oral Capsule Doxycycline Hyc late 50 MG Doxycycline Hyclate 50 MG 01/01/2020 12:00:00 AM EDT active 1 capsule eCW1 ([facility]) doxycycline hyclate 50 MG Oral Capsule Doxycycline Hyc late 50 MG Doxycycline Hyclate 50 MG 01/01/2020 12:00:00 AM EDT 1.0 {capsule} active Doxycycline Hyclate 50 MG eCW1 ([facility]) Metformin hydrochloride 500 MG Oral Tablet Metformin H Cl 500 MG Metformin HCl 500 MG 11/11/2019 12:00:00 AM EDT active 1 tablet with a meal eCW1 ([facility]) adapalene 1 MG/ML Topical Lotion [Differin] Differin 0.1 % D ifferin 0.1 % 10/14/2019 12:00:00 AM EST active 1 application in the evening eCW1 ([facility]) Clindamycin 10 MG/ML Topical Lotion [Cleocin-T] Cleocin-T 1 % Cleocin-T 1 % 10/14/2019 12:00:00 AM EST active 1 application eCW1 ([facility]) Clindamycin 10 MG/ML Topical Lotion [Cleocin-T] Cleocin-T 1 % Cleocin-T 1 % 10/14/2019 12:00:00 AM EST active 1 application eCW1 ([facility]) adapalene 1 MG/ML Topical Lotion [Differin] Differin 0.1 % D ifferin 0.1 % 10/14/2019 12:00:00 AM EST active 1 application in the evening eCW1 ([facility]) Metformin hydrochloride 500 MG Oral Tabl et metFORMIN HCl 500 MG Oral Tablet (GLUCOPHAGE) metFORMIN HCl 500 MG Oral Tablet (GLUCOPHAGE) 500 m g Oral aborted Take 500 mg by mouth Two times d aily with meals [facility] atorvastatin 20 MG Oral Tablet Atorvastatin Calcium 20 MG Oral Tablet (LIPITOR) Atorvastatin Calcium 20 MG Oral Tablet (LIPITOR) 20 mg Oral aborted Take 20 mg by mouth daily [facility] doxycycline hyclate 100 MG Oral Capsule Doxycycline Hyclate 100 MG Oral Capsule (VIBRAMYCIN) Doxycycline Hyclate 100 MG Oral Capsule (VIBRAMYCIN) 100 mg Oral aborted Take 100 mg by mouth daily For acne [facility] Insurance Providers Payer name Policy type / Coverage type Policy ID Covered constitution party ID Covered constitution party's relationship to awan Policy Awan Plan Information [facility] [id number] [place] [id number] S [id number] RAYMOND I [id number] Self [id number] MEDICAID [id number] SP [id number] MEDICAID M [id number] S [id number] ANSI-Not a Secondary Insurance [id number] ANSI-Commercial [id number] ANSI-Medicaid [id number] ANSI-Medicaid [id number] ANSI-Not a Secondary Insurance [id number] ANSI-Commercial [id number] ANSI-Commercial [id number] ANSI-Not a Secondary Insurance [id number] ANSI-Medicaid [id number] ANSI-Commercial [id number] ANSI-Not a Secondary Insurance [id number] ANSI-Medicaid [id number] ANSI-Medicaid [id number] ANSI-Commercial [id number] ANSI-Not a Secondary Insurance [id number] ANSI-Not a Secondary Insurance [id number] ANSI-Medicaid [id number] ANSI-Commercial [id number] SELF PAY ONLY [id number] SP [id number] ANSI-Not a Secondary Insurance [id number] ANSI-Medicaid [id number] ANSI-Commercial [id number] ANSI-Not a Secondary Insurance [id number] ANSI-Medicaid [id number] ANSI-Commercial [id number] ANSI-Medicaid [id number] ANSI-Not a Secondary Insurance [id number] ANSI-Commercial [id number] [facility] [id number] ANSI-Medicaid [id number] ANSI-Commercial [id number] [facility]-Medicaid [id number] ANSI-Commercial [id number] ANSI-Commercial [id number] RAYMOND [id number] SP [id number] SELF PAY UNAVAILABLE SP UNAVAILA BLE Problems, Conditions, and Diagnoses Code Display Name Description Problem Type Effective Dates Data Source(s) G62.9 [id number] Peripheral polyneuropathy Problem 07/27/2020 12:00:00 AM EST eCW1 ([facility]) K70.31 [id number] Ascites due to alcoholic cirrhosis Pr oblem 07/27/2020 12:00:00 AM EST eCW1 ([facility]) E80.6 [id number] Hyperbilirubinemia Problem 06/09/2020 12:00: 00 AM EDT eCW1 ([facility]) [id number] Essential hypertension Essential hypertension Problem 05/19/2020 12:00:00 AM EDT [facility] ([facility], ) F10.230 Alcohol dependence with withdrawal, unco mplicated Alcohol dependence with withdrawal, uncomplicated Diagnosis 04/25/2020 03:14:56 AM EDT [facility] K70.10 Alcoholic hepatitis without ascites Alcoholic he patitis without ascites Diagnosis 04/25/2020 03:14:45 AM EDT [facility] nausea' nausea' Diagnosis 04/25/2020 02:36:00 AM ED [facility] obstructive liver obstructive liver Diagnosis 04/25/2020 02:36:00 AM [facility] Surgeries/Procedures Procedure Description Date Indications Data Source(s) POCT GLUCOSE, DOCKED POCT GLUCOSE, DOCKED Routine 05/11/2020 12:32 PM EDT 05/11/2020 12:32:00 PM T [facility] POCT GLUCOSE, DOCKED POCT GLUCOSE, DOCKED Routine 05/11/2020 8:31 AM EDT 05/11/2020 08:31:00 AM [facility] PROTHROMBIN TIME PROTIME INR Routine 05/11/2020 4:26 AM EDT 05/11/2020 04:26:00 AM [facility] PHOSPHORUS INORGANIC PHOSPHORUS LEVEL Routine 05/11/2020 4:26 AM E DT 05/11/2020 04:26:00 AM [facility] MAGNESIUM MAGNESIUM LEVEL Routine 05/11/2020 4:26 AM EDT 05/11/2020 04:26:00 AM [facility] HEPATIC FUNCTION PANEL HEPATIC FUNCTION PANEL A Routine 05/11/2020 4:26 AM EDT 05/11/2020 04:26:[address] [facility] COVID-19 PCR COVID-19 PCR Routine 05/10/2020 10:03 PM EDT 05/10/2020 10:03:00 PM [facility] GLUCOSE QUANTITATIVE BLOOD XCPT REAGENT STRIP POCT GLUCOSE, IVANA ARIZAD Routine 05/10/2020 9:46 PM EDT 05/10/2020 09:46:00 PM [facility] GLUCOSE QUANTITATIVE BLOOD XCPT REAGENT STRIP POCT GLUCOSE, DOC KED Routine 05/10/2020 4:53 PM EDT 05/10/2020 04:53:00 PM [facility] GLUCOSE QUANTITATIVE BLOOD XCPT REAGENT STRIP POCT GLUCOSE, IVANA KED Routine 05/10/2020 12:15 PM EDT 05/10/2020 12:15:00 PM [facility] GLUCOSE QUANTITATIVE BLOOD XCPT REAGENT STRIP POCT GLUCOSE, IVANA KED Routine 05/10/2020 8:17 AM EDT 05/10/2020 08:17:00 AM [facility] PROTHROMBIN TIME PROTIME INR Routine 05/10/2020 3:41 AM EDT 05/10/2020 03:41:00 AM [facility] PHOSPHORUS INORGANIC PHOSPHORUS LEVEL Routine 05/10/2020 3:41 AM E DT 05/10/2020 03:41:00 AM [facility] MAGNESIUM MAGNESIUM LEVEL Routine 05/10/2020 3:41 AM EDT 05/10/2020 03:41:00 AM [facility] HEPATIC FUNCTION PANEL HEPATIC FUNCTION PANEL A Routine 05/10/2020 3:41 AM EDT 05/10/2020 03:41:00 AM EDT [facility] GLUCOSE QUANTITATIVE BLOOD XCPT REAGENT STRIP POCT GLUCOSE, IVANA TRIMBLE Routine 05/09/2020 9:17 PM EDT 05/09/2020 09:17:00 PM [facility] GLUCOSE QUANTITATIVE BLOOD XCPT REAGENT STRIP POCT GLUCOSE, IVANA TRIMBLE Routine 05/09/2020 5:14 PM EDT 05/09/2020 05:14:00 PM [facility] BLOOD COUNT LEUKOCYTE WBC AUTOMATED WBC Routine 05/09/2020 2 :17 PM EDT 05/09/2020 02:17:00 PM [facility] XR CHEST FRONTAL ONLY [id number] XR CHEST FRONTAL ONLY [id number] Urgent 05/09/2020 2:05 PM EDT 05/09/2020 02:05:46 PM EDT [facility] URNLS DIP STICK/TABLET REAGENT AUTO MICROSCOPY URINAL YSIS WITH REFLEX URINE CULTURE Routine 05/09/2020 1:48 PM EDT 05/09/2020 01:48 :00 PM [facility] CULTURE BACTERIAL BLOOD AEROBIC W/ID ISOLATES BLOOD CULTURE R outine 05/09/2020 1:48 PM EDT 05/09/2020 01:48:00 PM EDT [facility] CULTURE BACTERIAL BLOOD AEROBIC W/ID ISOLATES BLOOD CULTURE R outine 05/09/2020 1:48 PM EDT 05/09/2020 01:48:00 PM EDT [facility] GLUCOSE QUANTITATIVE BLOOD XCPT REAGENT STRIP POCT GLUCOSE, IVANA TRIMBLE Routine 05/09/2020 12:22 PM EDT 05/09/2020 12:22:00 PM [facility] CORTISOL TOTAL CORTISOL Routine 05/09/2020 9:49 AM EDT 05/09/2020 09:49:00 AM [facility] GLUCOSE QUANTITATIVE BLOOD XCPT REAGENT STRIP POCT GLUCOSE, IVANA TRIMBLE Routine 05/09/2020 8:18 AM EDT 05/09/2020 08:18:00 AM [facility] PROTHROMBIN TIME PROTIME INR Routine 05/09/2020 4:33 AM EDT 05/09/2020 04:33:00 AM [facility] PHOSPHORUS INORGANIC PHOSPHORUS LEVEL Routine 05/09/2020 4:33 AM E DT 05/09/2020 04:33:00 AM [facility] MAGNESIUM MAGNESIUM LEVEL Routine 05/09/2020 4:33 AM EDT 05/09/2020 04:33:00 AM [facility] CORTISOL TOTAL CORTISOL Routine 05/09/2020 4:33 AM EDT 05/09/2020 04:33:00 AM [facility] HEPATIC FUNCTION PANEL HEPATIC FUNCTION PANEL A Routine 05/09/2020 4:33 AM ED[facility]2020 [facility] BLO[facility] XCPT REAGENT STRIP POCT GLUCOSE, DOC KED Routine 05/08/2020 10:08 PM EDT 05/08/2020 10:08:00 PM [facility] GLUCOSE QUANTITATIVE BLOOD XCPT REAGENT STRIP POCT GLUCOSE, DOC KED Routine 05/08/2020 4:56 PM EDT 05/08/2020 04:56:00 PM [facility] GLUCOSE QUANTITATIVE BLOOD XCPT REAGENT STRIP POCT GLUCOSE, DOC KED Routine 05/08/2020 12:39 PM EDT 05/08/2020 12:39:00 PM [facility] ACETONE/OTHER KETONE BODIES SERUM QUANTITATIVE BETAHYDROXYBUTYR ATE Routine 05/08/2020 10:29 AM EDT 05/08/2020 10:29:00 AM [facility] BLOOD COUNT COMPLETE AUTOMATED CBC Routine 05/08/2020 10:29 A M EDT 05/08/2020 10:29:00 AM [facility] BASIC METABOLIC PANEL CALCIUM TOTAL BASIC METABOLIC PANEL Routi ne 05/08/2020 10:29 AM EDT 05/08/2020 10:29:00 AM [facility] GLUCOSE QUANTITATIVE BLOOD XCPT REAGENT STRIP POCT GLUCOSE, DOC KED Routine 05/08/2020 8:37 AM EDT 05/08/2020 08:37:00 AM [facility] PROTHROMBIN TIME PROTIME INR Routine 05/08/2020 5:20 AM EDT 05/08/2020 05:20:00 AM [facility] PHOSPHORUS INORGANIC PHOSPHORUS LEVEL Routine 05/08/2020 5:20 AM E DT 05/08/2020 05:20:00 AM [facility] MAGNESIUM MAGNESIUM LEVEL Routine 05/08/2020 5:20 AM EDT 05/08/2020 05:20:00 AM [facility] HEMOGLOBIN GLYCOSYLATED A1C HEMOGLOBIN A1C Routine 05/08/2020 5:20 AM EDT 05/08/2020 05:20:00 AM [facility] HEPATIC FUNCTION PANEL HEPATIC FUNCTION PANEL A Routine 05/08/2020 5:20 AM EDT 05/08/2020 05:20:[address] [facility] COVID-19 PCR COVID-19 PCR Routine 05/07/2020 10:39 PM EDT 05/07/2020 10:39:00 PM [facility] GLUCOSE QUANTITATIVE BLOOD XCPT REAGENT STRIP POCT GLUCOSE, DOC KED Routine 05/07/2020 9:23 PM EDT 05/07/2020 09:23:00 [address] [facility] CT ABDOEN & PELVIS W/CONTRAST MATERIAL CT ABDOMEN PELVIS WI TH CONTRAST [id number] Urgent 05/07/2020 9:11 PM EDT 05/07/2020 09:11:44 PM [facility] GLUCOSE QUANTITATIVE BLOOD XCPT REAGENT STRIP POCT GLUCOSE, DOC KED Routine 05/07/2020 5:04 PM EDT 05/07/2020 05:04:00 PM [facility] HEPATOBILIARY SYST IMAGING INCLUDING GALLBLADDER NM H EPATOBILIARY IMAGING HIDA [id number] Routine 05/07/2020 12:39 PM EDT 05/07/2020 12:39 :40 PM [facility] GLUCOSE QUANTITATIVE BLOOD XCPT REAGENT STRIP POCT GLUCOSE, DOC KED Routine 05/07/2020 12:08 PM EDT 05/07/2020 12:08:00 PM [facility] GLUCOSE QUANTITATIVE BLOOD XCPT REAGENT STRIP POCT GLUCOSE, DOC KED Routine 05/07/2020 8:17 AM EDT 05/07/2020 08:17:00 AM [facility] GLUCOSE QUANTITATIVE BLOOD XCPT REAGENT STRIP POCT GLUCOSE, DOC KED Routine 05/07/2020 8:16 AM EDT 05/07/2020 08:16:00 AM [facility] BASIC METABOLIC PANEL CALCIUM TOTAL BASIC METABOLIC PANEL Routi ne 05/07/2020 7:57 AM EDT 05/07/2020 07:57:00 AM EDT [facility] PROTHROMBIN TIME PROTIME INR Routine 05/07/2020 4:24 AM EDT 05/07/2020 04:24:00 AM [facility] BLOOD COUNT COMPLETE AUTOMATED CBC Routine 05/07/2020 4:24 A M EDT 05/07/2020 04:24:00 AM [facility] PHOSPHORUS INORGANIC PHOSPHORUS LEVEL Routine 05/07/2020 4:24 AM E DT 05/07/2020 04:24:00 AM [facility] MAGNESIUM MAGNESIUM LEVEL Routine 05/07/2020 4:24 AM EDT 05/07/2020 04:24:00 AM [facility] HEPATIC FUNCTION PANEL HEPATIC FUNCTION PANEL A Routine 05/07/2020 4:24 AM EDT 05/07/2020 04:24:00 AM EDT [facility] GLUCOSE QUANTITATIVE BLOOD XCPT REAGENT STRIP POCT GLUCOSE, IVANA TRIMBLE Routine 05/06/2020 9:30 PM EDT 05/06/2020 09:30:00 PM [facility] GLUCOSE QUANTITATIVE BLOOD XCPT REAGENT STRIP POCT GLUCOSE, DOC NAI Routine 05/06/2020 5:09 PM EDT 05/06/2020 05:09:[address] [facility] CT HEAD/BRAIN W/O CONTRAST MATERIAL CT HEAD WITHOUT CONTRAST 70 450 Routine 05/06/2020 4:52 PM EDT 05/06/2020 04:52:18 PM [facility] GLUCOSE QUANTITATIVE BLOOD XCPT REAGENT STRIP POCT GLUCOSEIVANA Routine 05/06/2020 3:50 PM EDT 05/06/2020 03:50:00 PM [facility] ULTRASOUND ABDOMINAL REAL TIME W/IMAGE LIMITED US ABDOMEN L IMITED [id number] Routine 05/06/2020 3:19 PM EDT 05/06/2020 03:19:05 PM [facility] BLOOD COUNT COMPLETE AUTOMATED CBC Routine 05/06/2020 12:47 P M EDT 05/06/2020 12:47:00 PM [facility] GLUCOSE QUANTITATIVE BLOOD XCPT REAGENT STRIP POCT GLUCOSEIVANA Routine 05/06/2020 12:29 PM EDT 05/06/2020 12:29:00 PM [facility] GLUCOSE QUANTITATIVE BLOOD XCPT REAGENT STRIP POCT GLUCOSE, DOC NAI Routine 05/06/2020 8:29 AM EDT 05/06/2020 08:29:00 AM [facility] PROTHROMBIN TIME PROTIME INR Routine 05/06/2020 4:42 AM EDT 05/06/2020 04:42:00 AM [facility] PHOSPHORUS INORGANIC PHOSPHORUS LEVEL Routine 05/06/2020 4:42 AM E DT 05/06/2020 04:42:00 AM [facility] MAGNESIUM MAGNESIUM LEVEL Routine 05/06/2020 4:42 AM EDT 05/06/2020 04:42:00 AM [facility] HEPATIC FUNCTION PANEL HEPATIC FUNCTION PANEL A Routine 05/06/2020 4:42 AM EDT 05/06/2020 04:42:00 AM EDT [facility] BASIC METABOLIC PANEL CALCIUM TOTAL BASIC METABOLIC PANEL Routi ne 05/06/2020 4:42 AM EDT 05/06/2020 04:42:00 AM EDT [facility] GLUCOSE QUANTITATIVE BLOOD XCPT REAGENT STRIP POCT GLUCOSE, IVANA TRIMBLE Routine 05/06/2020 4:32 AM EDT 05/06/2020 04:32:00 AM [facility] GLUCOSE QUANTITATIVE BLOOD XCPT REAGENT STRIP POCT GLUCOSE, IVANA TRIMBLE Routine 05/05/2020 9:00 PM EDT 05/05/2020 09:00:00 PM [facility] GLUCOSE QUANTITATIVE BLOOD XCPT REAGENT STRIP POCT GLUCOSE, IVANA TRIMBLE Routine 05/05/2020 8:10 PM EDT 05/05/2020 08:10:00 PM [facility] GLUCOSE QUANTITATIVE BLOOD XCPT REAGENT STRIP POCT GLUCOSE, IVANA TRIMBLE Routine 05/05/2020 6:40 PM EDT 05/05/2020 06:40:00 PM [facility] COVID-19 PCR COVID-19 PCR STAT 05/05/2020 6:19 PM EDT 05/05/2020 06:19:00 PM [facility] GLUCOSE QUANTITATIVE BLOOD XCPT REAGENT STRIP POCT GLUCOSE, IVANA TRIMBLE Routine 05/05/2020 5:30 PM EDT 05/05/2020 05:30:00 PM [facility] GLUCOSE QUANTITATIVE BLOOD XCPT REAGENT STRIP POCT GLUCOSE, IVANA TRIMBLE Routine 05/05/2020 5:03 PM EDT 05/05/2020 05:03:00 PM [facility] GLUCOSE QUANTITATIVE BLOOD XCPT REAGENT STRIP POCT GLUCOSE, IVANA TRIMBLE Routine 05/05/2020 5:01 PM EDT 05/05/2020 05:01:00 PM [facility] GLUCOSE QUANTITATIVE BLOOD XCPT REAGENT STRIP POCT GLUCOSE, IVANA TRIMBLE Routine 05/05/2020 12:15 PM EDT 05/05/2020 12:15:00 PM [facility] PHOSPHORUS INORGANIC PHOSPHORUS LEVEL Routine 05/05/2020 8:51 AM E DT 05/05/2020 08:51:00 AM [facility] MAGNESIUM MAGNESIUM LEVEL Routine 05/05/2020 8:51 AM EDT 05/05/2020 08:51:00 AM [facility] COMPREHENSIVE METABOLIC PANEL COMPREHENSIVE METABOLIC PANEL Rou rodney 05/05/2020 8:51 AM EDT 05/05/2020 [facility]ATIVE BLOOD XCPT REAGENT STRIP POCT GLUCOSE, IVANA TRIMBLE Routine 05/05/2020 8:35 AM EDT 05/05/2020 08:35:00 AM [facility] GLUCOSE QUANTITATIVE BLOOD XCPT REAGENT STRIP POCT GLUCOSE, IVANA TRIMBLE Routine 05/05/2020 6:16 AM EDT 05/05/2020 06:16:00 AM [facility] PROTHROMBIN TIME PROTIME INR Routine 05/05/2020 4:52 AM EDT 05/05/2020 04:52:00 AM [facility] GLUCOSE QUANTITATIVE BLOOD XCPT REAGENT STRIP POCT GLUCOSE, IVANA TRIMBLE Routine 05/04/2020 11:28 PM EDT 05/04/2020 11:28:00 PM [facility] GLUCOSE QUANTITATIVE BLOOD XCPT REAGENT STRIP POCT GLUCOSE, IVANA TRIMBLE Routine 05/04/2020 10:00 PM EDT 05/04/2020 10:00:00 PM [facility] GLUCOSE QUANTITATIVE BLOOD XCPT REAGENT STRIP POCT GLUCOSE, IVANA TRIMBLE Routine 05/04/2020 9:23 PM EDT 05/04/2020 09:23:00 PM [facility] GLUCOSE QUANTITATIVE BLOOD XCPT REAGENT STRIP POCT GLUCOSE, IVANA TRIMBLE Routine 05/04/2020 9:09 PM EDT 05/04/2020 09:09:00 PM [facility] GLUCOSE QUANTITATIVE BLOOD XCPT REAGENT STRIP POCT GLUCOSE, IVANA TRIMBLE Routine 05/04/2020 8:59 PM EDT 05/04/2020 08:59:00 PM [facility] GLUCOSE QUANTITATIVE BLOOD XCPT REAGENT STRIP POCT GLUCOSE, IVANA TRIMBLE Routine 05/04/2020 4:49 PM EDT 05/04/2020 04:49:00 PM [facility] GLUCOSE QUANTITATIVE BLOOD XCPT REAGENT STRIP POCT GLUCOSE, IVANA TRIMBLE Routine 05/04/2020 12:27 PM EDT 05/04/2020 12:27:00 PM [facility] GLUCOSE QUANTITATIVE BLOOD XCPT REAGENT STRIP POCT GLUCOSE, IVANA TRIMBLE Routine 05/04/2020 8:01 AM EDT 05/04/2020 08:01:00 AM [facility] GLUCOSE QUANTITATIVE BLOOD XCPT REAGENT STRIP POCT GLUCOSE, DOC KED Routine 05/04/2020 7:59 AM EDT 05/04/2020 07:59:00 AM [facility] PROTHROMBIN TIME PROTIME INR Routine 05/04/2020 6:14 AM EDT 05/04/2020 06:14:00 AM [facility] BILIRUBIN DIRECT BILIRUBIN, DIRECT Routine 05/04/2020 6:14 AM EDT 05/04/2020 06:14:00 AM [facility] COMPREHENSIVE METABOLIC PANEL COMPREHENSIVE METABOLIC PANEL Rou rodney 05/04/2020 6:14 AM EDT 05/04/2020 06:14:00 AM EDT [facility] GLUCOSE QUANTITATIVE BLOOD XCPT REAGENT STRIP POCT GLUCOSE, DOC KED Routine 05/03/2020 9:01 PM EDT 05/03/2020 09:01:00 PM [facility] GLUCOSE QUANTITATIVE BLOOD XCPT REAGENT STRIP POCT GLUCOSE, DOC KED Routine 05/03/2020 4:53 PM EDT 05/03/2020 04:53:00 PM [facility] US RETROPERITONEAL REAL TIME W/IMAGE COMPLETE US RENAL OR A JOSI COMPLETE [id number] Routine 05/03/2020 2:24 PM EDT 05/03/2020 02:24:32 PM [facility] GLUCOSE QUANTITATIVE BLOOD XCPT REAGENT STRIP POCT GLUCOSE, DOC KED Routine 05/03/2020 12:22 PM EDT 05/03/2020 12:22:00 PM [facility] GLUCOSE QUANTITATIVE BLOOD XCPT REAGENT STRIP POCT GLUCOSE, DOC KED Routine 05/03/2020 10:20 AM EDT 05/03/2020 10:20:00 AM [facility] GLUCOSE QUANTITATIVE BLOOD XCPT REAGENT STRIP POCT GLUCOSE, DOC KED Routine 05/03/2020 8:51 AM EDT 05/03/2020 08:51:00 AM [facility] GLUCOSE QUANTITATIVE BLOOD XCPT REAGENT STRIP POCT GLUCOSE, DOC KED Routine 05/03/2020 8:22 AM EDT 05/03/2020 08:22:00 AM [facility] PROTHROMBIN TIME PROTIME INR Routine 05/03/2020 3:53 AM EDT 05/03/2020 03:53:00 AM [facility] PHOSPHORUS INORGANIC PHOSPHORUS LEVEL Routine 05/03/2020 3:53 AM E DT 05/03/2020 03:53:00 AM [facility] BILIRUBIN DIRECT BILIRUBIN, DIRECT Routine 05/03/2020 3:53 AM EDT 05/03/2020 03:53:00 AM [facility] COMPREHENSIVE METABOLIC PANEL COMPREHENSIVE METABOLIC PANEL Rou rodney 05/03/2020 3:53 AM EDT 05/03/2020 03:53:00 AM EDT [facility] GLUCOSE QUANTITATIVE BLOOD XCPT REAGENT STRIP POCT GLUCOSEIVANA Routine 05/02/2020 4:59 PM EDT 05/02/2020 04:59:00 PM [facility] URNLS DIP STICK/TABLET REAGENT AUTO MICROSCOPY URINAL YSIS WITH REFLEX URINE CULTURE Routine 05/02/2020 2:30 PM EDT 05/02/2020 02:30 :00 PM [facility] GLUCOSE QUANTITATIVE BLOOD XCPT REAGENT STRIP POCT GLUCOSEIVANA Routine 05/02/2020 12:28 PM EDT 05/02/2020 12:28:00 PM [facility] GLUCOSE QUANTITATIVE BLOOD XCPT REAGENT STRIP POCT GLUCOSEIVANA Routine 05/02/2020 8:23 AM EDT 05/02/2020 08:23:00 AM [facility] PROTHROMBIN TIME PROTIME INR Routine 05/02/2020 3:30 AM EDT 05/02/2020 03:30:00 AM [facility] PHOSPHORUS INORGANIC PHOSPHORUS LEVEL Routine 05/02/2020 3:30 AM E DT 05/02/2020 03:30:00 AM [facility] MAGNESIUM MAGNESIUM LEVEL Routine 05/02/2020 3:30 AM EDT 05/02/2020 03:30:00 AM [facility] BILIRUBIN DIRECT BILIRUBIN, DIRECT Routine 05/02/2020 3:30 AM EDT 05/02/2020 03:30:00 AM [facility] COMPREHENSIVE METABOLIC PANEL COMPREHENSIVE METABOLIC PANEL Felipa rodney 05/02/2020 3:30 AM EDT 05/02/2020 03:30:00 AM EDT [facility] GLUCOSE QUANTITATIVE BLOOD XCPT REAGENT STRIP POCT GLUCOSEIVANA Routine 05/01/2020 9:15 PM EDT 05/01/2020 09:15:00 PM [facility] GLUCOSE QUANTITATIVE BLOOD XCPT REAGENT STRIP POCT GLUCOSEIVANA Routine 05/01/2020 5:18 PM EDT 05/01/2020 05:18:00 PM [facility] GLUCOSE QUANTITATIVE BLOOD XCPT REAGENT STRIP POCT GLUCOSE, IVANA TRIMBLE Routine 05/01/2020 12:16 PM EDT 05/01/2020 12:16:00 PM [facility] COMPREHENSIVE METABOLIC PANEL COMPREHENSIVE METABOLIC PANEL Rou rodney 05/01/2020 9:54 AM EDT 05/01/2020 09:54:00 AM EDT [facility] GLUCOSE QUANTITATIVE BLOOD XCPT REAGENT STRIP POCT GLUCOSE, IVANA ARIZAD Routine 05/01/2020 8:20 AM EDT 05/01/2020 08:20:00 AM [facility] PROTHROMBIN TIME PROTIME INR Routine 05/01/2020 5:09 AM EDT 05/01/2020 05:09:00 AM [facility] PHOSPHORUS INORGANIC PHOSPHORUS LEVEL Routine 05/01/2020 5:09 AM E DT 05/01/2020 05:09:00 AM [facility] MAGNESIUM MAGNESIUM LEVEL Routine 05/01/2020 5:09 AM EDT 05/01/2020 05:09:00 AM [facility] GLUCOSE QUANTITATIVE BLOOD XCPT REAGENT STRIP POCT GLUCOSE, IVANA TRIMBLE Routine 04/30/2020 9:03 PM EDT 04/30/2020 09:03:00 PM [facility] GLUCOSE QUANTITATIVE BLOOD XCPT REAGENT STRIP POCT GLUCOSE, IVANA TRIMBLE Routine 04/30/2020 4:58 PM EDT 04/30/2020 04:58:00 PM [facility] MAGNESIUM MAGNESIUM LEVEL Routine 04/30/2020 3:45 PM EDT 04/30/2020 03:45:00 PM [facility] CALCIUM IONIZED CALCIUM, IONIZED Routine 04/30/2020 3:45 PM EDT 04/30/2020 03:45:00 PM [facility] GLUCOSE QUANTITATIVE BLOOD XCPT REAGENT STRIP POCT GLUCOSE, IVANA ARIZAD Routine 04/30/2020 12:25 PM EDT 04/30/2020 12:25:00 PM [facility] GLUCOSE QUANTITATIVE BLOOD XCPT REAGENT STRIP POCT GLUCOSE, IVANA TRIMBLE Routine 04/30/2020 12:14 PM EDT 04/30/2020 12:14:00 PM [facility] GLUCOSE QUANTITATIVE BLOOD XCPT REAGENT STRIP POCT GLUCOSE, IVANA TRIMBLE Routine 04/30/2020 8:24 AM EDT 04/30/2020 08:24:00 AM [facility] PROTHROMBIN TIME PROTIME INR Routine 04/30/2020 5:59 AM EDT 04/30/2020 05:59:00 AM [facility] PHOSPHORUS INORGANIC PHOSPHORUS LEVEL Routine 04/30/2020 5:59 AM E DT 04/30/2020 05:59:00 AM [facility] MAGNESIUM MAGNESIUM LEVEL Timed 04/30/2020 5:59 AM EDT 04/30/2020 05:59:00 AM [facility] HEPATIC FUNCTION PANEL HEPATIC FUNCTION PANEL A Routine 04/30/2020 5:59 AM EDT 04/30/2020 05:59:00 AM EDT [facility] BASIC METABOLIC PANEL CALCIUM TOTAL BASIC METABOLIC PANEL Timed 04/30/2020 5:59 AM EDT 04/30/2020 05:59:00 AM EDT [facility] MAGNESIUM MAGNESIUM LEVEL Timed 04/29/2020 5:46 PM EDT 04/29/2020 05:46:00 PM [facility] BASIC METABOLIC PANEL CALCIUM TOTAL BASIC METABOLIC PANEL Timed 04/29/2020 5:46 PM EDT 04/29/2020 05:46:00 PM EDT [facility] GLUCOSE QUANTITATIVE BLOOD XCPT REAGENT STRIP POCT GLUCOSE, DOC KED Routine 04/29/2020 4:53 PM EDT 04/29/2020 04:53:00 PM [facility] GLUCOSE QUANTITATIVE BLOOD XCPT REAGENT STRIP POCT GLUCOSE, DOC KED Routine 04/29/2020 12:09 PM EDT 04/29/2020 12:09:00 PM [facility] GLUCOSE QUANTITATIVE BLOOD XCPT REAGENT STRIP POCT GLUCOSE, DOC KED Routine 04/29/2020 8:22 AM EDT 04/29/2020 08:22:00 AM [facility] BLOOD COUNT COMPLETE AUTOMATED CBC AND DIFFERENTIAL Routine 04/29/2020 6:20 AM EDT 04/29/2020 06:20:00 AM EDT [facility] COMPREHENSIVE METABOLIC PANEL COMPREHENSIVE METABOLIC PANEL Rou rodney 04/29/2020 6:20 AM EDT 04/29/2020 06:20:00 AM [facility] PROTHROMBIN TIME PROTIME INR Routine 04/29/2020 4:27 AM EDT 04/29/2020 04:27:00 AM [facility] MAGNESIUM MAGNESIUM LEVEL Timed 04/28/2020 10:33 PM EDT 04/28/2020 10:33:00 PM [facility] BASIC METABOLIC PANEL CALCIUM TOTAL BASIC METABOLIC PANEL Timed 04/28/2020 10:33 PM EDT 04/28/2020 10:33:00 PM EDT [facility] GLUCOSE QUANTITATIVE BLOOD XCPT REAGENT STRIP POCT GLUCOSEIVANA Routine 04/28/2020 8:52 PM EDT 04/28/2020 08:52:00 PM [facility] GLUCOSE QUANTITATIVE BLOOD XCPT REAGENT STRIP POCT GLUCOSEIVANA Routine 04/28/2020 5:16 PM EDT 04/28/2020 05:16:00 PM [facility] ULTRASOUND ABDOMINAL REAL TIME W/IMAGE LIMITED US ABDOMEN LIMIT ED [id number] Urgent 04/28/2020 1:19 PM EDT 04/28/2020 01:19:02 PM [facility] GLUCOSE QUANTITATIVE BLOOD XCPT REAGENT STRIP POCT GLUCOSEIVANA Routine 04/28/2020 12:35 PM EDT 04/28/2020 12:35:00 PM [facility] GLUCOSE QUANTITATIVE BLOOD XCPT REAGENT STRIP POCT GLUCOSEIVANA Routine 04/28/2020 8:30 AM EDT 04/28/2020 08:30:00 AM [facility] BLOOD COUNT COMPLETE AUTOMATED CBC AND DIFFERENTIAL Timed 04/28/2020 8:13 AM EDT 04/28/2020 08:13:00 AM EDT [facility] MAGNESIUM MAGNESIUM LEVEL Timed 04/28/2020 8:13 AM EDT 04/28/2020 08:13:00 AM [facility] HEPATIC FUNCTION PANEL HEPATIC FUNCTION PANEL A Timed 04/28 8:13 AM EDT [facility]/28[facility] CALCIUM TOTAL BASIC METABOLIC PANEL Timed 04/28/2020 8:13 AM EDT 04/28/2020 08:13:00 AM EDT [facility] GLUCOSE QUANTITATIVE BLOOD XCPT REAGENT STRIP POCT GLUCOSEIVANA Routine 04/28/2020 7:41 AM EDT 04/28/2020 07:41:00 AM [facility] PROTHROMBIN TIME PROTIME INR Routine 04/28/2020 5:07 AM EDT 04/28/2020 05:07:00 AM [facility] GLUCOSE QUANTITATIVE BLOOD XCPT REAGENT STRIP POCT GLUCOSEIVANA Routine 04/27/2020 9:09 PM EDT 04/27/2020 09:09:00 PM [facility] BLOOD COUNT COMPLETE AUTOMATED CBC AND DIFFERENTIAL Timed 04/27/2020 5:47 PM EDT 04/27/2020 05:47:00 PM EDT [facility] THYROID STIMULATING HORMONE TSH TSH Routine 04/27/2020 5:47 PM EDT 04/27/2020 05:47:00 PM [facility] MAGNESIUM MAGNESIUM LEVEL Timed 04/27/2020 5:47 PM EDT 04/27/2020 05:47:00 PM [facility] AMMONIA AMMONIA LEVEL Routine 04/27/2020 5:47 PM EDT 04/27/2020 05:47:00 PM [facility] HEPATIC FUNCTION PANEL HEPATIC FUNCTION PANEL A Timed 04/27 5:47 PM EDT 04/27/2020 05:47:[address] [facility] BASIC METABOLIC PANEL CALCIUM TOTAL BASIC METABOLIC PANEL Timed 04/27/2020 5:47 PM EDT 04/27/2020 05:47:00 PM EDT [facility] GLUCOSE QUANTITATIVE BLOOD XCPT REAGENT STRIP POCT GLUCOSE, DOC KED Routine 04/27/2020 4:51 PM EDT 04/27/2020 04:51:00 PM [facility] PICC ULTRASOUND - BEDSIDE PROCEDURE PICC ULTRASOUND - BEDSI DE PROCEDURE Routine 04/27/2020 2:07 PM EDT 04/27/2020 02:07:00 PM [facility] GLUCOSE QUANTITATIVE BLOOD XCPT REAGENT STRIP POCT GLUCOSE, DOC KED Routine 04/27/2020 12:14 PM EDT 04/27/2020 12:14:00 PM [facility] BLOOD COUNT COMPLETE AUTO&AUTO DIFRNTL WBC COUNT CBC AND DIFFER ENTIAL Timed 04/27/2020 8:26 AM EDT 04/27/2020 08:26:00 AM [facility] MAGNESIUM MAGNESIUM LEVEL Timed 04/27/2020 8:26 AM EDT 04/27/2020 08:26:00 AM [facility] HEPATIC FUNCTION PANEL HEPATIC FUNCTION PANEL A Timed 04/27 8:26 AM EDT 04/27/2020 08:26:[address] [facility] BASIC METABOLIC PANEL CALCIUM TOTAL BASIC METABOLIC PANEL Timed 04/27/2020 8:26 AM EDT 04/27/2020 08:26:00 AM EDT [facility] GLUCOSE QUANTITATIVE BLOOD XCPT REAGENT STRIP POCT GLUCOSE, DOC KED Routine 04/27/2020 8:15 AM EDT 04/27/2020 08:15:00 AM [facility] PROTHROMBIN TIME PROTIME INR Routine 04/27/2020 3:46 AM EDT 04/27/2020 03:46:00 AM [facility] GLUCOSE QUANTITATIVE BLOOD XCPT REAGENT STRIP POCT GLUCOSE, DOC KED Routine 04/26/2020 9:49 PM EDT 04/26/2020 09:49:00 PM [facility] LACTATE LACTIC ACID LEVEL, PLASMA Routine 04/26/2020 8:18 PM EDT 04/26/2020 08:18:00 PM [facility] GLUCOSE QUANTITATIVE BLOOD XCPT REAGENT STRIP POCT GLUCOSE, DOC KED Routine 04/26/2020 4:54 PM EDT 04/26/2020 04:54:00 PM [facility] BLOOD COUNT COMPLETE AUTOMATED CBC AND DIFFERENTIAL Timed 04/26/2020 3:52 PM EDT 04/26/2020 03:52:00 PM EDT [facility] MAGNESIUM MAGNESIUM LEVEL Timed 04/26/2020 3:52 PM EDT 04/26/2020 03:52:00 PM [facility] LACTATE LACTIC ACID LEVEL, PLASMA Routine 04/26/2020 3:52 PM EDT 04/26/2020 03:52:00 PM [facility] HEPATIC FUNCTION PANEL HEPATIC FUNCTION PANEL A Timed 04/26 3:52 PM EDT 04/26/2020 [facility]OLIC PANEL CALCIUM TOTAL BASIC METABOLIC PANEL Timed 04/26/2020 3:52 PM EDT 04/26/2020 03:52:00 PM EDT [facility] GLUCOSE QUANTITATIVE BLOOD XCPT REAGENT STRIP POCT GLUCOSE, DOC KED Routine 04/26/2020 12:24 PM EDT 04/26/2020 12:24:00 PM [facility] PROTHROMBIN TIME PROTIME INR Routine 04/26/2020 10:45 AM EDT 04/26/2020 10:45:00 AM [facility] LACTATE LACTIC ACID LEVEL, PLASMA Routine 04/26/2020 10:45 AM EDT 04/26/2020 10:45:00 AM [facility] AMMONIA AMMONIA LEVEL Routine 04/26/2020 10:45 AM EDT 04/26/2020 10:45:00 AM [facility] URNLS DIP STICK/TABLET REAGENT AUTO MICROSCOPY URINALYSIS W ITH MICROSCOPIC Routine 04/26/2020 9:16 AM EDT 04/26/2020 09:16:00 AM [facility] SODIUM URINE SODIUM, URINE, RANDOM Routine 04/26/2020 9:12 AM EDT 04/26/2020 09:12:00 AM [facility] POTASSIUM URINE POTASSIUM, URINE, RANDOM Routine 04/26/2020 9:12 A M EDT 04/26/2020 09:12:00 AM [facility] OSMOLALITY URINE OSMOLALITY, URINE Routine 04/26/2020 9:12 AM EDT 04/26/2020 09:12:00 AM [facility] GLUCOSE QUANTITATIVE BLOOD XCPT REAGENT STRIP POCT GLUCOSE, DOC KED Routine 04/26/2020 8:34 AM EDT 04/26/2020 08:34:00 AM [facility] BASIC METABOLIC PANEL CALCIUM TOTAL BASIC METABOLIC PANEL Timed 04/26/2020 7:46 AM EDT 04/26/2020 07:46:00 AM EDT [facility] BLOOD COUNT COMPLETE AUTO&AUTO DIFRNTL WBC COUNT CBC AND DIFFER ENTIAL Timed 04/26/2020 7:46 AM EDT 04/26/2020 07:46:00 AM [facility] MAGNESIUM MAGNESIUM LEVEL Timed 04/26/2020 7:46 AM EDT 04/26/2020 07:46:00 AM [facility] HEPATIC FUNCTION PANEL HEPATIC FUNCTION PANEL A Timed 04/26 7:46 AM EDT 04/26/2020 07:46:00 AM [facility] GLUCOSE QUANTITATIVE BLOOD XCPT REAGENT STRIP POCT GLUCOSE, DOC KED Routine 04/25/2020 8:47 PM EDT 04/25/2020 08:47:00 PM [facility] BLOOD COUNT COMPLETE AUTO&AUTO DIFRNTL WBC COUNT CBC AND DIFFER ENTIAL Timed 04/25/2020 5:43 PM EDT 04/25/2020 05:43:00 PM [facility] MAGNESIUM MAGNESIUM LEVEL Timed 04/25/2020 5:29 PM EDT 04/25/2020 05:29:00 PM [facility] LACTATE LACTIC ACID LEVEL, PLASMA Routine 04/25/2020 5:29 PM EDT 04/25/2020 05:29:00 PM [facility] HEPATIC FUNCTION PANEL HEPATIC FUNCTION PANEL A Timed 04/25 5:29 PM EDT 04/25/2020 05:29:[address] [facility] BASIC METABOLIC PANEL CALCIUM TOTAL BASIC METABOLIC PANEL Timed 04/25/2020 5:29 PM EDT 04/25/2020 05:29:00 PM EDT [facility] GLUCOSE QUANTITATIVE BLOOD XCPT REAGENT STRIP POCT GLUCOSE, DOC KED Routine 04/25/2020 5:08 PM EDT 04/25/2020 05:08:00 PM [facility] GLUCOSE QUANTITATIVE BLOOD XCPT REAGENT STRIP POCT GLUCOSE, DOC KED Routine 04/25/2020 12:05 PM EDT 04/25/2020 12:05:00 PM [facility] EKG 12-LEAD - CMAXX REPORT EKG 12-LEAD - CMAXX REPORT 04/25/2020 10:33 AM EDT 04/25/2020 10:33:52 AM EDT [facility] EKG 12-LEAD - CMAXX REPORT EKG 12-LEAD - CMAXX REPORT 04/25/2020 10:33 AM EDT 04/25/2020 10:33:52 AM EDT [facility] EKG 12-LEAD - CMAXX REPORT EKG 12-LEAD - CMAXX REPORT 04/25/2020 10:30 AM EDT 04/25/2020 10:30:40 AM EDT [facility] EKG 12-LEAD EKG 12-LEAD STAT 04/25/2020 10:30 AM EDT 04/25/2020 10:30:40 AM [facility] CULTURE BACTERIAL BLOOD AEROBIC W/ID ISOLATES BLOOD CULTURE S TAT 04/25/2020 9:59 AM EDT 04/25/2020 09:59:00 AM EDT [facility] GLUTAMYLTRASE GAMMA GAMMA GT Routine 04/25/2020 9:59 AM EDT 04/25/2020 09:59:00 AM [facility] GLUCOSE QUANTITATIVE BLOOD XCPT REAGENT STRIP POCT GLUCOSE, DOC KED Routine 04/25/2020 8:11 AM EDT 04/25/2020 08:11:00 AM [facility] THROMBOPLASTIN TIME PARTIAL PLASMA/WHOLE BLOOD PARTIA L THROMBOPLASTIN TIME (PTT) Routine 04/25/2020 6:06 AM EDT 04/25/2020 06:06 :00 AM [facility] ACUTE HEPATITIS PANEL HEPATITIS PANEL, ACUTE Routine 04/25/2020 6:06 AM EDT 04/25/2020 06:06:00 AM [facility] FIBRINOGEN ACTIVITY FIBRINOGEN LEVEL Routine 04/25/2020 6:06 AM ED T 04/25/2020 06:06:00 AM [facility] FIBRIN DGRADJ PRODUCTS D-DIMER QUAL/SEMIQUAN D-DIMER, QUANTITAT LESLIE Routine 04/25/2020 6:06 AM EDT 04/25/2020 06:06:00 AM [facility] CT ABDOEN & PELVIS W/CONTRAST MATERIAL CT ABDOMEN PELVIS WI TH CONTRAST [id number] STAT 04/25/2020 5:54 AM EDT 04/25/2020 05:54:51 AM [facility] XR CHEST FRONTAL ONLY [id number] XR CHEST FRONTAL ONLY [id number] Routine 04/25/2020 5:48 AM EDT 04/25/2020 05:48:59 AM EDT [facility] UH COVID-19 PCR COVID-19 PCR Routine 04/25/2020 3:59 AM EDT 04/25/2020 03:59:00 AM [facility] URNLS DIP STICK/TABLET REAGENT AUTO MICROSCOPY URINAL YSIS WITH REFLEX URINE CULTURE Routine 04/25/2020 3:59 AM EDT 04/25/2020 03:59 :00 AM [facility] IRON TOTAL FE BINDING CAPACITY Routine 04/25/2020 3:59 AM EDT 04/25/2020 03:59:00 AM [facility] CULTURE BACTERIAL BLOOD AEROBIC W/ID ISOLATES BLOOD CULTURE S TAT 04/25/2020 3:59 AM EDT 04/25/2020 03:59:00 AM EDT [facility] CULTURE BACTERIAL BLOOD AEROBIC W/ID ISOLATES BLOOD CULTURE S TAT 04/25/2020 3:59 AM EDT 04/25/2020 03:59:00 AM EDT [facility] PROTHROMBIN TIME PROTIME INR Routine 04/25/2020 3:59 AM EDT 04/25/2020 03:59:00 AM [facility] BLOOD COUNT COMPLETE AUTOMATED CBC AND DIFFERENTIAL Routine 04/25/2020 3:59 AM EDT 04/25/2020 03:59:00 AM EDT [facility] TROPONIN QUANTITATIVE TROPONIN T Routine 04/25/2020 3:59 AM EDT 04/25/2020 03:59:00 AM [facility] PHOSPHORUS INORGANIC PHOSPHORUS LEVEL Routine 04/25/2020 3:59 AM E DT 04/25/2020 03:59:00 AM [facility] MAGNESIUM MAGNESIUM LEVEL Routine 04/25/2020 3:59 AM EDT 04/25/2020 03:59:00 AM [facility] LIPASE LIPASE LEVEL Routine 04/25/2020 3:59 AM EDT 04/25/2020 03:59:00 AM [facility] LACTATE LACTIC ACID LEVEL, PLASMA Routine 04/25/2020 3:59 AM EDT 04/25/2020 03:59:00 AM [facility] FOLIC ACID SERUM FOLATE Routine 04/25/2020 3:59 AM EDT 04/25/2020 03:59:00 AM [facility] FERRITIN FERRITIN LEVEL Routine 04/25/2020 3:59 AM EDT 04/25/2020 03:59:00 AM [facility] CYANOCOBALAMIN VITAMIN B-12 VITAMIN B12 Routine 04/25/2020 3:59 AM EDT 04/25/2020 03:59:00 AM [facility] COMPREHENSIVE METABOLIC PANEL COMPREHENSIVE METABOLIC PANEL Rou rodney 04/25/2020 3:59 AM EDT 04/25/2020 03:59:00 AM EDT [facility] Virtual Brief Check In by an MD/QHP 11/11/2019 12:00:0 0 AM EDT [email or web address] ([facility]) URINE-NO MICRO 10/14/2019 12:00:00 AM EST eCW1 ([facility]) Results ID Date Data Source [id number] 09/11/2020 06:37:00 AM EST [facility] Name Value Range Interpretation Code Description Data Beronica rce(s) Supporting Document(s) SARS coronavirus 2 RNA [Presence] in Res piratory specimen by MARISA with probe detection NEGATIVE [facility] This lab was ordered by [facility] a nd reported by [facility]. ID Date Data Source [id number] 09/08/2020 12:00:00 AM EST [facility] Name Value Range Interpretation Code Description Data Beronica rce(s) Supporting Document(s) SARS-CoV2 Rapid Antigen Negative [facility] This lab was ordered by [facility] and reported by [facility]. ID Date Data Source [id number] 07/20/2020 02:30:00 PM EST [facility] ([facility], ) Name Value Range Interpretation Code Description Data Beronica rce(s) Supporting Document(s) Alt/SGPT 13 U/L 12-78 Normal (applies to non-numeric resul ts) [facility] ([facility], ) Ast/Sgot 29 U/L 7-37 Normal (applies to non-numeric resul ts) [facility] ([facility], ) Bilirubin,Direct 1.7 mg/dL 0.0-0.2 Above high normal M [facility] ([facility]) Bilirubin,Total 3.3 mg/dL 0.2-1.0 Above high normal [facility] ([facility]) Alkaline Phosphatase 101 U/L 45-117 Normal (applies to non-num lev results) [facility] ([facility]) Total Protein 6.8 GM/DL 6.4-8.2 Normal (applies to non-numeric re sults) [facility] ([facility], ) Albumin/Globulin Ratio 0.7 Normal (applies to non-n umeric results) [facility] ([facility]) Albumin 2.9 GM/DL 3.2-5.2 Below low normal [facility] ( [facility]) ID Date Data Source [id number] 07/08/2020 03:02:09 PM [facility] Name Value Range Interpretation Code Description Data Beronica rce(s) Supporting Document(s) Progress Note [facility] [id number]/LBYrbBEJrq4QnUUnvVUi7LNhdATUgF9XsDAM5xK5iNOI1OYpYArVbLxCqXUP6 lbm [file] [id number]cHoldVOj4Xzg9slo7VqEt6/Juan Miguel/xmYB1db [file] [id number]/evp operations/6az04/[id number] [file] C/s2Vj4PLU/LgkLY0OsHelOmyajs8Xo1+Luis Miguel/Nei3 [file] [id number]= ID Date Data Source [facility] LIVER US 06/18/2020 11:15:08 AM EDT eCW1 ([facility]) Name Value Range Interpretation Code Description Data Beronica rce(s) Supporting Document(s) [facility] LIVER US eCW1 ([facility]) ID Date Data Source [id number] 06/16/2020 12:04:00 PM EDT [facility] ([facility]) Name Value Range Interpretation Code Description Data Beronica rce(s) Supporting Document(s) Ast/Sgot 53 U/L 7-37 Above high normal [facility] ([facility]) Bilirubin,Total 2.7 mg/dL 0.2-1.0 Above high normal [facility] ([facility]) Alkaline Phosphatase 103 U/L 45-117 Normal (applies to non-num lev results) [facility] ([facility]) Alt/SGPT 34 U/L 12-78 Normal (applies to non-numeric resul ts) [facility] ([facility]) Total Protein 7.3 GM/DL 6.4-8.2 Normal (applies to non-numeric re sults) [facility] ([facility]) Albumin 2.5 GM/DL 3.2-5.2 Below low normal [facility] ( [facility]) Bilirubin,Direct 2.1 mg/dL 0.0-0.2 Above high normal M [facility]ENT ([facility]) Albumin/Globulin Ratio 0.5 Normal (applies to non-n umeric results) [facility]) ID Date Data Source [id number] 05/27/2020 01:05:00 PM EDT [facility] ([facility]) Name Value Range Interpretation Code Description Data Beronica rce(s) Supporting Document(s) Cobalamin (Vitamin B12) [Mass/volume] in Serum or Plasma 1680 pg /mL 247-911 Above high normal [facility] ([facility]) VITAMIN B12 NORMAL RANGE NORMAL 247 - 911 PG/ML INDETERMINATE 211 - 246 PG/ML DEFICIENT LESS THAN 211 PG/ML ID Date Data Source [id number] 05/27/2020 01:05:00 PM EDT [facility] ([facility]) Name Value Range Interpretation Code Description Data Beronica rce(s) Supporting Document(s) Blood Urea Nitrogen 4 mg/dL 7-18 Below low normal [facility] ([facility]) Creatinine For GFR 0.75 mg/dL 0.70-1.30 Normal (applies to non -numeric results) [facility] ([facility], ) Glucose, Fasting 78 mg/dL 70-100 Normal (applies to non-numeric results) [facility] ([facility], ) Glomerular Filtration Rate Laboratory test result Normal (applies to non- numeric results) [facility] ([facility], ) <content>Units are mL/min/1.73 m2</content>
<content></content>
<content>Chronic Kidney Disease Staging per NKF:</content>
<content></content>
<content>Stage I & II GFR >=60 Normal to Mildly Decreased</content>
<content>Stage III GFR 30- 59 Moderately Decreased</content>
<content>Stage IV GFR 15-29 Severely Decreased</content>
<content>Stage V GFR <15 Very Little GFR Left</content>
<content>ESRD GFR <15 on [employer]</content>
<content></content> Sodium Level 140 meq/L 136-145 Normal (applies to non-numeric res ults) [facility] ([facility], ) Potassium Serum 3.6 meq/L 3.5-5.1 Normal (applies to non-numeric results) [facility] ([facility], ) Carbon Dioxide Level 25 meq/L 21-32 Normal (applies to non-num lev results) [facility] ([facility], ) Anion Gap 7 meq/L 8-16 Below low normal [facility] ( [facility]) Chloride Level 108 meq/L 98-107 Above high normal [facility] ([facility], ) Ast/Sgot 93 U/L 7-37 Above high normal [facility] Calcium Level 8.5 mg/dL 8.5-10.1 Normal (applies to non-numeric re sults) [facility], ) Alt/SGPT 43 U/L 12-78 Normal (applies to non-numeric resul ts) [facility] Bilirubin,Total 3.9 mg/dL 0.2-1.0 Above high normal [facility] ([facility]) Alkaline Phosphatase 131 U/L 45-117 Above high normal [facility] ([facility]) Total Protein 7.1 GM/DL 6.4-8.2 Normal (applies to non-numeric re sults) [facility] ([facility]) Albumin/Globulin Ratio 0.4 Normal (applies to non-n umeric results) [facility] ([facility]) Albumin 2.1 GM/DL 3.2-5.2 Below low normal [facility] ( [facility]) ID Date Data Source [id number] 05/27/2020 01:05:00 PM EDT [facility] ([facility]) Name Value Range Interpretation Code Description Data Beronica rce(s) Supporting Document(s) aPTT in Platelet poor plasma by Coagulation assay 54.2 s 24.2-38.5 Above high normal [facility] ([facility]) ID Date Data Source [id number] 05/27/2020 01:05:00 PM EDT [facility]) Name Value Range Interpretation Code Description Data Beronica rce(s) Supporting Document(s) Prothrombin Time 19.8 s 12.5-14.3 Above high normal [facility] Inr 1.65 Normal (applies to non-numeric resul ts) [facility] ([facility]) THERAPUTIC HUMAN INR VALUES INDICATIONS NORMAL RANGES PROPHYLAXIS/TREATMENT OF: VENOUS THROMBOSIS 2.0-3.0 PULMONARY EMBOLISM 2.0-3.0 PREVENTION OF SYSTEMIC EMBOLISM FROM: TISSUE HEART VALVES 2.0-3.0 ACUTE MYOCARDIAL INFARCTION 2.0-3.0 VALVULAR HEART DISEASE 2.0-3.0 ATRIAL FIBRILLATION 2.0-3.0 MECHANICAL VALVES(HIGH RISK) 2.5-3.5 RECURRENT MYOCARDIAL INFARCTION 2.5-3.5 ID Date Data Source [id number] 05/27/2020 01:05:00 PM EDT [facility]) Name Value Range Interpretation Code Description Data Beronica rce(s) Supporting Document(s) White Blood Count 3.8 10 4.0-10.0 Below low normal [facility] ([facility]) Red Blood Count 3.51 10 4.30-6.10 Below low normal [facility] ([facility]) Hemoglobin 12.1 g/dL 13.5-17.5 Below low normal [facility] ( [facility]) Hematocrit 35.7 % 42.0-52.0 Below low normal [facility] ( [facility]) Mean Corpuscular Volume 101.7 fl 80.0-96.0 Above high normal [facility] ([facility]) Mean Corpuscular Hemoglobin 34.5 pg 27.0-33.0 Above high normal [facility] ([facility]) Red Cell Distribution Width 13.2 % 11.5-14.5 Norm al (applies to non-numeric results) [facility] ([facility]) Platelet Count, Automated 181 10 150-450 Normal (applies to non-numeric results) [facility] ([facility]) Mean Corpuscular HGB Conc 33.9 g/dL 32.0-36.5 Normal (applies to non-numeric results) [facility] ([facility]) Lymph % 40.3 % 24.0-44.0 Normal (applies to non-numeric resul ts) [facility] Neutrophils % 45.5 % 36.0-66.0 Normal (applies to non-numeric re sults) [facility]) Eos % 1.3 % 0.0-3.0 Normal (applies to non-numeric resul ts) [facility] [place] % 11.8 % 0.0-5.0 Above high normal [facility]) Nucleated Red Blood Cell % 0.0 % 0-0 Normal (applies to n on-numeric results) [facility]) Baso % 0.8 % 0.0-1.0 Normal (applies to non-numeric resul ts) [facility]) Immature Granulocyte % 0.3 % 0-3.0 Normal (applies to non-n umeric results) [facility]) Neutrophils # 1.7 10 1.5-8.5 Normal (applies to non-numeric re sults) [facility], ) [place] # 0.5 10 0.0-0.8 Normal (applies to non-numeric resul ts) [facility] ([facility], ) Lymph # 1.5 10 1.5-5.0 Normal (applies to non-numeric resul ts) [facility] ([facility], ) Baso # 0.0 10 0.0-0.2 Normal (applies to non-numeric resul ts) [facility] ([facility], ) Eos # 0.1 10 0.0-0.5 Normal (applies to non-numeric resul ts) [facility] ([facility], ) ID Date Data Source [id number] 05/12/2020 03:46:39 PM EDT [facility] Name Value Range Interpretation Code Description Data Beronica rce(s) Supporting Document(s) Consultation [facility] YJJBWh9yOaTJMlYk60/RMJznXQBlx7KoSVmiPHf6ZFpxYTGbY1WuOPO9zS0bGZP3YUaANiKpEsIjRMZv lbm [file] AgICAgICAgICAgICAgICAgICAgICAgICAgICAgICAg YATsQLNgUVMpISHsWXWdNO8YGSZuWZIbOIFyNSMzTWBwJVZbFUSdXFDuBFXqDHZxFFUvUDKgZHWiKADa HREwZIKyVEYkXGOkHPInMCUnDLZsACYtSDNmKROrGXQoRVXmUYWmMMHyKUUaEXNjAMKvRTNeJDWnXH6T ICAgICAgICAgICAgICAgICAgICAgICAgICAgICAgIC AgICAgICAgICAgICAgICAgICAgICAgICAgICAgICAgICAgICAgICAgICAgICAgICAgICAgICAgICAgIC NxVRAyYAUdTK5SZUNeMCHfRMFdYIFwOVHcCKZlNQPgVZDtKIZqNTUmRNJrSTDnEGDaYARtAWVwKRYuCJ AgICAgICAgICAgICAgICAgICAgICAgICAgICAgICAg RPEoLKIiLLWiAWAbFFFgBRSgSF5JLEMiPNQvPAZsJAXaDQTrNVRpUCWoVLVvSXCsTLXwFPTcHJIvFQSr ICAgICAgICAgICAgICAgICAgICAgICAgICAgICAgICAgICAgICAgICAgICAgICAgICAgICAgICAgICAg HX5LMQSeTKQqSNAvJXHzBGWhYLDqRZGfXWSzFFUdRR AgICAgICAgICAgICAgICAgICAgICAgICAgICAgICAgICAgICAgICAgICAgICAgICAgICAgICAgICAgIC NlHAItXBGsEBGkZB0VDTTiOAQwSLBwYCGdMNRpYWZqAYNzWBCkJUOzBRKfQMYyXAQvBHVhTDCsHTLjYL AgICAgICAgICAgICAgICAgICAgICAgICAgICAgICAg UCTrSGXnKYRuSRFkDJZqYMMxBODjXG8MJWJtUNIeCDMhCMBhBMCqGUNzWBJiJPUfVRDwWMRuKQYiDJYc ICAgICAgICAgICAgICAgICAgICAgICAgICAgICAgICAgICAgICAgICAgICAgICAgICAgICAgICAgICAg VHXrIM5XXOGkPGRfYAYhIKRkFBDeYDYeMIEzHYIhKX AgICAgICAgICAgICAgICAgICAgICAgICAgICAgICAgICAgICAgICAgICAgICAgICAgICAgICAgICAgIC WzGUKxDGGoRKCmGUAbNK1MXINkZWToJAVrXSLbLWQrKSMxNLTyJVZlUOYoAUAlPVFvJKWcUDMbFCAhGT AgICAgICAgICAgICAgICAgICAgICAgICAgICAgICAg HXWsJMNwNQWkKYOvVDPwNFBiWIBqHCFrBJ4FQZ08fIFof4H0EZDxWL8tbzc/Td6ESFirkiGqnHJoYM1K ClSmTY6zun6PPzCpKN9fkl9UJEkKKfYrN9N0iNUqKKHjWOIYJbMvZ74xXRatVw41QAjsYFKcQlYfCGl8 Lf4GKdYeN2fnTEPrEdH5IDSuJuB6JRHyRqE9QWAuCf CpUAUcGEZbKHAcAWCGTWT8PIQkKtCuUwDaVOKfERmcKARREN6MWoYpH2EzoL35EIkCAv9+DQplbmRvYm yNJtV8NXDis0HxIXl1TW0WLWHhNorho6SnMEBgJZTOTLibVK9NVDT7HVSmZQDjXb8GEVXkX855zdAaSE 1GNg2ROvTgRZ6ymf5ZBWWiZQJtEonTRvi8OBeyZZ0Z jDEiERfWo75dwQo6irFzuIHOLOnvlOJOxS0pVWxfZOMoJFDzJG3dQX9iQDVaVZEaLgD1OHEPDR3ETZXl CLYqnCVoXBVnMKELUA3JGIlaBTP7NLDaraNvgAAaUYvfMQ6AMXXsglQyEezpRZRQIZw+Vu3JWI9aw6Fe QNw6GXErJI3opq4ZDNcYQyWdI7Q5cKXuT7G4VBxeQk 3YMCOrHKPtObljOFCONYnjRJ9XIP5uczR9XA9LgVRxBPNvDLQwmPVaNJc7I64yaKOxLRkdWW8YFYG+Pi A+Mi4DLEYpLXSrEPFdLxOrWTVTNxSrE7ChD6OJn3PwQ3UpTO64aWhhmnEvHInoZA4PEU7xAWQfMNJYAJ 6AzSBwcT0ghoStGUDnZUNVBwIaU22frKWyMGNlKUG7 XHQtTp9YQBHpU0OwucOydFjfdiFvSLAbGTMNEX6EBMwttyJlpLYguNbkGX09xMzkVY1YNx7RSzAjKS4m vs1DtTAxEv2SQOL6Sf1IWGOeIWPfOKGwFWZ0QNXtCwHgQPwuPEZhARUcTLY3POPqOZKiJD3JMuBfQBBe FKf4AaagADTbVONbzz2UKXYeLJF7VOA7TOKtTEPvJB BkDCazYGMxFTWfZXK1HBObCMFnQC5FRpWlFFTqAME3VDRvDBRsECUame0DGRRkHIGpAsk9RRWnUBSkIN WlUYsuEWGmFDG8AxT2IUMzAKFsTC8AGrPzDWMfFBG9XlHgRKSqKPJvox4AVUCuVOIaAHh8TEXvVCStYZ XrUSjuFKFvBMToDzExIMPaLGCbUK3MMzEtRYNjBJFx GiTcJGDzBJBurm5ZYMNnUENxAyDwKZNlBKGmQKJfRPvpYHHaFEB0VSFdEBRtXRQwEN9ZYmLoNNUpLAmg QcPyWGAcTTAdxm3MJOHyAMXxMgDjUGFuFZTkLMJiLUuaVCTgJCFrKWZ8YBJpYNRbEJ4JBqZmKIGhZtQ3 JGvgAHWpUSApqf3ELIPqKHYfFkc5NyFiGZGhJQBaUT szWORbFVGtTYM4SHUsYZCpXE1OAzPyGMCzDkNtNrUhDMSbURXuuh2QEYYmXBAcTuPrWJEcQKMeFMBgWV mlWCKnTJRmDwN9PBXmXVLhTJ1GVkWhRWLiPoL4WXLgAXLdCCVedl4MKEXaOETpIHL7HOZaHXHmLPOvDD euJURqLUU0LrpsFIUyNKXvRR8RDqCuVXGdQjS4COaq ASPyDPDvqf9IYILxHGSwBFtqYMSdXQZaYHZfEZtdJEPhKFZ7LEW2PMAnBYWxAN9GZuYkYLAkArHcHUrm YBJbNIGppt0FCTGrIMQ0CyE1CRGvRKRzZWCfXWklUFIrBGQ8AFNuNRFzZPJeEO4HEbTbMIUwVRvbGFAn HVHoYHWktl8NYBKlCBY7PZI9RXHzMTWgXPVcVDfnMS BpKAD9WHl4WJHeSTBoXJ4VSiOsNXJlJFp4JLNgGRDsSDGrip6ILHRyTYC0KQJsNPNdYVJuXDMtIUdyIO RbJFV6RMV1FDOjUJRoNW2QCkFhRJBaPDBaHkusRYZqTQVyvc2ZYQGtDJU8RKxuUPSfNZFgEKMlAOmrFT TkMCRwTju1MECbIXBlDB0WHpAjVQYiYEW5CbBqCUYj PJGzui2HhEDisXbzch2ELXeHNl8FkOafAHIoXIivYb8btRJ1ENRyVHYBUk9XfbRfZAYdWFUAKAnaVNFe NCR9DZMfHWtvGrFyRAG9QRF6VGJhMhDbG7TuVoN2X5O0VaR0UEJtCKJuN0OqJSGlBCNvQQU2KVL9BMHw NNZzSxZ5Xzm+MU0cEMx+Jd1Ge7WwccK4bzLvHFq7DuZ7WH0AZYHTI4MKEy== ID Date Data Source [id number] 05/12/2020 02:35:05 PM EDT [facility] Name Value Range Interpretation Code Description Data Beronica rce(s) Supporting Document(s) Discharge Summary [facility] MQXULq5hYdZJWsJl68/WZUkaCCAkj2QlTBroUJi1UDqjKCPlC7ZzSML5uY6sVDV0KJyNXwZaHyNoBQOa lbm WnBevSRfFwGOAiYilDIrWeCQbsJfaxhPYrCR8CdXH2FEHiB99gFNVcVIUpO0VrENE9JGI+Of9YSCUxjG VsKW7DArsD6L3ff9i9Cp4+hU9T9y6oFpAjMwoK/sfOlgzK2jf5m2vY+wAiylb76q22hsdbfp/+JFFaaS nly4Py6WNLKuLRnTfnkL+YTVdN156/kF1xhf8a6t+7 p4YswayY+OwgGN7AR9en8Q/ODNJU9oMkWt6r//Ogps06qbi4s/TNjk1zJnnUYnFNWuTRe6L1jH906Yqq +R2bWv0qVf7cnDXLAy8HoJlOUhM1sd3simxyya86XUQDwZUYxU8PKy1cLkhyHHab3D2F+5bioQ9/eUGm g2VLQtG8CGzWAxkYNkj4bqfWEwsULNkpATEGRuMWoz f49DV58ZrTiIcWwxfKW0IUVdojqvBxa0cpK1Xxve7RtK6iTfpJ47nTZANefR4CBvstKXru4yPOGmzAa8 mrf8Lr5YM/mgbVWWTbvnPZiDHVodhuBX962K4iezaUql2976X9AKhjNrCwJ+1f6lnmu6dNLg8kOu3Mel cLLmR/uCXysKYzuJYdOCLPB6wArcnJQGI/Z4i/g2nK MyTp6DS6zg8pVbJz1rTOC6NfU3d/gYExDzNnhrS084tgjLGjhyXd+/yDW45ZW4OGDc7gnhYLD750pkqq supNvwCHY9vAWbzS8dHc1gH16azarSQy/Z4ytnCyHSy4t9O/EV9e9lHzV/uSlIZGXCjyxTqw3rNfvRqD x4P0Gyah4WCJPjnB/CRveXDEs7Kep7joZPGMPrtsKU jSRBcprPVAHlchRLyI9b9RfCShfKDcGWqkZS+heNpaDnjLzlT8uXd9PDY0J5Y81JZjMhEUxaMxUA/Michelle CC3Ne+EZdz9/cV76XSwP6H84LkGILWJSglp54KHMP2/iX4wAm3sBeW68itKp4Xx+/OL4/FydHh/sXP52 /F33axXCphx5Iyi25QlLCaTwRM7tHxAIs1Fme7kBOj xLUEG1S+r77ZTnAisJJ1Y8O7yDhh+7KRvaDVjaZbKDhbSE87Wm8+eWWxvXUcGsuFT4vFDnP4MC8GyZxQ ydABJDhvssmwBpkvYwah3FNKs+6Thwou++SVo3C4aJJ6O0LWxYyWClU3I5UcBJHGomulFe+ZZVXtVu2C Reer++2Dwg5ymo4TFMXRs4dUoTeFQ4Rp+dE6ROa3EY eWH+mCDxSCTxB0OFLDeC4yCaTpvGutm721sLUvsyPIV99EsSCaC7hQSiyGnJYIiHOvckWX6Zv6Z2bScO TvVVF6SQ7X6nw0260mUlmfK41yd8NV1Ed80bmh5vCznazfMnBvMuX22tqjoepVYMEZHAav/Marichuy/TadOA1 [file] nFEi6eH6vMGZjTRtMY9XsspVyKVjTGHqCFTXevluzwObXprkp/overhead line worker+bX4qoip6e7GeQArIdCiZVU0skDV [file] uBYaKh2LDqYmJDJMWyKjJQ8BFLk= ID Date Data Source [id number] 05/11/2020 12:35:16 PM EDT [facility] Name Value Range Interpretation Code Description Data Beronica rce(s) Supporting Document(s) Glucose [Mass/volume] in Capillary blood by Glucometer 89 mg/dL 70- 140 [facility] ID Date Data Source [id number] 05/11/2020 08:33:06 AM [facility] Value Range Interpretation Code Description Data Beronica rce(s) Supporting Document(s) Glucose [Mass/volume] in Capillary blood by Glucometer 75 mg/dL 70- 140 [facility] ID Date Data Source [id number] 05/11/2020 04:48:45 AM [facility] Value Range Interpretation Code Description Data Beronica rce(s) Supporting Document(s) Prothrombin time (PT) 20.4 s 12.5-14.9 H [facility] INR in Platelet poor plasma by Coagulation assay 1.71 [facility] Routine intensity oral anticoagulation I NR is typically 2.0-3.0. Target INR must be clinically individualized. ID Date Data Source [id number] 05/11/2020 05:00:59 AM [facility] Value Range Interpretation Code Description Data Beronica rce(s) Supporting Document(s) Albumin [Mass/volume] in Serum or Plasma by Bromocresol green (BCG) dye binding method 2.5 g/dL 3.5-[facility].2 [facility] Bil[facility] [Mass/volume] in Serum or Plasma 9.5 mg/dL <1.2 H [facility] Bilirubin.direct [Mass/volume] in Serum or Plasma 6.3 mg/dL <0.3 H [facility] Alkaline phosphatase [Enzymatic activity/volume] in Serum or Plasma 120 U/L 40-129 [facility] Aspartate aminotransferase [Enzymatic activity/volume] in Serum or Plasma 113 U/L <40 H [facility] Alanine aminotransferase [Enzymatic activity/volume] in Seru m or Plasma 59 U/L <41 H [facility] Protein [Mass/volume] in Serum or Plasma 7.3 g/dL 6.4-8.3 [facility] ID Date Data Source [id number] 05/11/2020 05:00:59 AM [facility] Value Range Interpretation Code Description Data Beronica rce(s) Supporting Document(s) Phosphate [Mass/volume] in Serum or Plasma 2.0 mg/dL 2.5-4.5 L [facility] ID Date Data Source [id number] 05/11/2020 05:00:59 AM [facility] Value Range Interpretation Code Description Data Beronica rce(s) Supporting Document(s) Magnesium [Mass/volume] in Serum or Plasma 1.9 mg/dL 1.6-2.6 [facility] ID Date Data Source [id number] 05/10/2020 11:05:42 PM EDT [facility] Cmnt XXX-Imp : NoneMicroorganism XXX Cult : 2019 nCoV Real-Time RT-PCR: NOT DETECTEDTest performed using [employer] Respiratory Panel. This test is only for use under Food and Drug Administration's Emergency Use Authorization.Additional information is available on the following FDA websites for health care providers and patients. https://www.fda.gov/media/524755/download , https://www.fda.gov/[place] tin/811483/downloadPolymerase chain reaction is NEGATIVE for Influenza A H1, H3 and 2009 H1 viruses, Influenza B virus, Respiratory syncytial virus, Human metapneumovirus, Parainfluenza virus 1,2,3 and 4, Adenovirus, Rhinovirus/ Enterovirus, Coronavirus HKU1, NL63, OC43 and 229E, Bordetella pertussis, B. parapertussis, Mycoplasma pneumoniae and Chlamydia pneumoniae. Name Value Range Interpretation Code Description Data Beronica rce(s) Supporting Document(s) ID Date Data Source [id number] 05/10[facility]2020 10:03:[facility] : NoneMicroorganism XXX Cult : 2019 nCoV Real-Time RT-PCR: NOT DETECTEDTest performed using [employer] Respiratory Panel. This test is only for use under Food and Drug Administration's Emergency Use Authorization.Additional information is available on the following FDA websites for health care providers and patients. https://www.fda.gov/media/802635/download , https://www.fda.gov/[place] tin/100889/downloadPolymerase chain reaction is NEGATIVE for Influenza A H1, H3 and 2009 H1 viruses, Influenza B virus, Respiratory syncytial virus, Human metapneumovirus, Parainfluenza virus 1,2,3 and 4, Adenovirus, Rhinovirus/ Enterovirus, Coronavirus HKU1, NL63, OC43 and 229E, Bordetella pertussis, B. parapertussis, Mycoplasma pneumoniae and Chlamydia pneumoniae. Name Value Range Interpretation Code Description Data Beronica rce(s) Supporting Document(s) Microorganism identified in Unspecified specimen by [facility] This lab was ordered by [facility] and reported by [facility]. ID Date Data Source [id number] 05/10/2020 10:11:33 PM [facility] Value Range Interpretation Code Description Data Beronica rce(s) Supporting Document(s) Glucose [Mass/volume] in Capillary blood by Glucometer 138 mg/dL 70- 140 [facility] ID Date Data Source [id number] 05/10/2020 04:59:54 PM [facility] Value Range Interpretation Code Description Data Beronica rce(s) Supporting Document(s) Glucose [Mass/volume] in Capillary blood by Glucometer 150 mg/dL 70- 140 [facility] ID Date Data Source [id number] 05/10/2020 12:19:55 PM [facility] Value Range Interpretation Code Description Data Beronica rce(s) Supporting Document(s) Glucose [Mass/volume] in Capillary blood by Glucometer 103 mg/dL [address] [place] [address] ID Date Data Source [id number] 05/10/2020 08:24:00 AM [facility] Value Range Interpretation Code Description Data Beronica rce(s) Supporting Document(s) Glucose [Mass/volume] in Capillary blood by Glucometer 79 mg/dL [address] [place] [address] ID Date Data Source [id number] 05/10/2020 04:28:28 AM [facility] Value Range Interpretation Code Description Data Beronica rce(s) Supporting Document(s) Prothrombin time (PT) 21.4 s 12.5-14.9 H [facility] INR in Platelet poor plasma by Coagulation assay 1.82 [facility] Routine intensity oral anticoagulation I NR is typically 2.0-3.0. Target INR must be clinically individualized. ID Date Data Source [id number] 05/10/2020 04:39:11 AM [facility] Value Range Interpretation Code Description Data Beronica rce(s) Supporting Document(s) Albumin [Mass/volume] in Serum or Plasma by Bromocresol green (BCG) dye binding method 2.3 g/dL 3.5-5.2 [facility] Bilirubin.total [Mass/volume] in Serum or Plasma 10.2 mg/dL <1.2 H [facility] Bilirubin.direct [Mass/volume] in Serum or Plasma 7.3 mg/dL <0.3 H [facility] Alkaline phosphatase [Enzymatic activity/volume] in Serum or Plasma 109 U/L 40-129 [facility] Aspartate aminotransferase [Enzymatic activity/volume] in Serum or Plasma 109 U/L <40 H [facility] Alanine aminotransferase [Enzymatic activity/volume] in Seru m or Plasma 53 U/L <41 H [facility] Protein [Mass/volume] in Serum or Plasma 6.5 g/dL 6.4-8.3 [facility] ID Date Data Source [id number] 05/10/2020 04:39:11 AM [facility] Value Range Interpretation Code Description Data Beronica rce(s) Supporting Document(s) Magnesium [Mass/volume] in Serum or Plasma 1.8 mg/dL 1.6-2.6 [facility] ID Date Data Source [id number] 05/10/2020 04:39:11 AM [facility] Value Range Interpretation Code Description Data Beronica rce(s) Supporting Document(s) Phosphate [Mass/volume] in Serum or Plasma 2.7 mg/dL 2.5-4.5 [facility] ID Date Data Source [id number] 05/09/2020 09:39:53 PM [facility] Value Range Interpretation Code Description Data Beronica rce(s) Supporting Document(s) Glucose [Mass/volume] in Capillary blood by Glucometer 89 mg/dL 70- 140 [facility] ID Date Data Source [id number] 05/12/2020 07:06:04 PM [facility] Value Range Interpretation Code Description Data Beronica rce(s) Supporting Document(s) Corticotropin [Mass/volume] in Plasma 13.7 pg/mL 7.2-63.3 [facility] (NOTE)ACTH reference interval for sample s collected between 7 and 10 AM.Performed At: [facility] [address] [id number] Aguiar MD Ph:[phone] ID Date Data Source [id number] 05/09/2020 05:17:06 PM [facility] Value Range Interpretation Code Description Data Beronica rce(s) Supporting Document(s) Glucose [Mass/volume] in Capillary blood by Glucometer 101 mg/dL 70- 140 [facility] ID Date Data Source [id number] 05/09/2020 02:41:59 PM EDT [facility] XR CHEST FRONTAL ONLY [id number] RESULTI nterpreted by:DANDRE CamejoROCEDURE INFORMATION: Exam: XR Chest, 1 View Exam date and time: 05/09/2020 1:44 PM Age: 49 years old Clinical indication: Alcohol dependence with withdrawal, uncomplicated; Alcoholic hepatitis without ascites; Chest pain; Type not specified; Additional info: Evaluation for fever TECHNIQUE: Imaging protocol: XR of the chest Views: 1 view. COMPARISON: CR XR CHEST FRONTAL ONLY [id number] PORTABLE 04/25/2020 5:22 AM FINDINGS: Tubes, catheters [...] rce(s) Supporting Document(s) ID Date Data Source [id number] 05/09/2020 02:53:34 PM EDT [facility] Name Value Range Interpretation Code Description Data Beronica rce(s) Supporting Document(s) Leukocytes [#/volume] in Blood by Automated count 7.1 10*3/uL 4-10 [facility] ID Date Data Source [id number] 05/14/2020 11:01:00 [facility]-Imp : LEFT HANDMicroorg anism XXX Cult : No growth 5 days Name Value Range Interpretation Code Description Data Beronica rce(s) Supporting Document(s) ID Date Data Source [id number] 05/14/2020 11:01:00 AM EDT [facility] Service Cmnt XXX-Imp : RT HANDMicroorga nism XXX Cult : No growth 5 days Name Value Range Interpretation Code Description Data Beronica rce(s) Supporting Document(s) ID Date Data Source [id number] 05/09/2020 03:30:35 PM [facility] Value Range Interpretation Code Description Data Beronica rce(s) Supporting Document(s) Color of Urine [facility] Clarity of Urine [facility] Specific gravity of Urine by Refractometry automated 1.008 1.003 -1.030 [facility] pH of Urine by Automated test strip 6.0 5.0-8.0 [facility] Protein [Mass/volume] in Urine by Automated test strip Neg [facility] Glucose [Mass/volume] in Urine by Automated test strip Neg [facility] Ketones [Mass/volume] in Urine by Automated test strip Neg [facility] Bilirubin.total [Presence] in Urine by Automated test strip Negative [facility] False-positive results may occur with ce rtain food additives or medications. Hemoglobin [Presence] in Urine by Automated test strip Neg ative [facility] Leukocyte esterase [Presence] in Urine by Automated test strip Negative [facility] Nitrite [Presence] in Urine by Automated test strip Negati [facility] Leukocytes [#/area] in Urine sediment by Automated count 1 /HPF 0 -5 [facility] Erythrocytes [#/area] in Urine sediment by Automated count 1 /HPF 0-3 [facility] Service comment [facility] Bacteria [#/area] in Urine sediment by Automated count Non e [facility] Mucus [#/area] in Urine sediment by Microscopy low power field None [facility] ID Date Data Source [id number] 05/09/2020 12:29:24 PM [facility] Name Value Range Interpretation Code Description Data Beronica rce(s) Supporting Document(s) Glucose [Mass/volume] in Capillary blood by Glucometer 76 mg/dL 70- 140 [facility] ID Date Data Source [id number] 05/09/2020 10:33:47 AM [facility] Name Value Range Interpretation Code Description Data Beronica rce(s) Supporting Document(s) Cortisol [Mass/volume] in Serum or Plasma 5.8 ug/dL [facility] Ref range for 6-10 am samples: 6.0-18.4 ug/dLRef range for 4-8 pm samples: 2.7- 10.5 ug/dLRef range not established for other times. ID Date Data Source [id number] 05/09/2020 08:35:41 AM [facility] Value Range Interpretation Code Description Data Beronica rce(s) Supporting Document(s) Glucose [Mass/volume] in Capillary blood by Glucometer 73 mg/dL 70- 140 [facility] ID Date Data Source [id number] 05/09/2020 05:00:14 AM [facility] Value Range Interpretation Code Description Data Beronica rce(s) Supporting Document(s) Prothrombin time (PT) 20.6 s 12.5-14.9 H [facility] INR in Platelet poor plasma by Coagulation assay 1.74 [facility] Routine intensity oral anticoagulation I NR is typically 2.0-3.0. Target INR must be clinically individualized. ID Date Data Source [id number] 05/09/2020 05:22:16 AM [facility] Value Range Interpretation Code Description Data Beronica rce(s) Supporting Document(s) Phosphate [Mass/volume] in Serum or Plasma 3.2 mg/dL 2.5-4.5 [facility] ID Date Data Source [id number] 05/09/2020 05:22:16 AM [facility] Value Range Interpretation Code Description Data Beronica rce(s) Supporting Document(s) Cortisol [Mass/volume] in Serum or Plasma 2.9 ug/dL [facility] Ref range for 6-10 am samples: 6.0-18.4 ug/dLRef range for 4-8 pm samples: 2.7- 10.5 ug/dLRef range not established for other times. ID Date Data Source [id number] 05/09/2020 05:22:16 AM [facility] Value Range Interpretation Code Description Data Beronica rce(s) Supporting Document(s) Albumin [Mass/volume] in Serum or Plasma by Bromocresol green (BCG) dye binding method 2.4 g/dL 3.5-5.2 [facility] Bil[facility].total [Mass/volume] in Serum or Plasma 11.7 mg/dL <1.2 H [facility] Bilirubin.direct [Mass/volume] in Serum or Plasma 8.4 mg/dL <0.3 H [facility] Alkaline phosphatase [Enzymatic activity/volume] in Serum or Plasma 117 U/L 40-129 [facility] Aspartate aminotransferase [Enzymatic activity/volume] in Serum or Plasma 111 U/L <40 H [facility] Alanine aminotransferase [Enzymatic activity/volume] in Seru m or Plasma 55 U/L <41 H [facility] Protein [Mass/volume] in Serum or Plasma 6.5 g/dL 6.4-8.3 [facility] ID Date Data Source [id number] 05/09/2020 05:22:16 AM [facility] Value Range Interpretation Code Description Data Beronica rce(s) Supporting Document(s) Magnesium [Mass/volume] in Serum or Plasma 1.6 mg/dL 1.6-2.6 [facility] ID Date Data Source [id number] 05/08/2020 10:13:14 PM [facility] Value Range Interpretation Code Description Data Beronica rce(s) Supporting Document(s) Glucose [Mass/volume] in Capillary blood by Glucometer 101 mg/dL 70- 140 [facility] ID Date Data Source [id number] 05/08/2020 05:11:07 PM [facility] Value Range Interpretation Code Description Data Beronica rce(s) Supporting Document(s) Glucose [Mass/volume] in Capillary blood by Glucometer 90 mg/dL 70- 140 [facility] ID Date Data Source [id number] 05/08/2020 12:44:26 PM [facility] Value Range Interpretation Code Description Data Beronica rce(s) Supporting Document(s) Glucose [Mass/volume] in Capillary blood by Glucometer 104 mg/dL 70- 140 [facility] ID Date Data Source [id number] 05/14/2020 05:06:17 PM [facility] Value Range Interpretation Code Description Data Beronica rce(s) Supporting Document(s) Glucagon [Mass/volume] in Serum or Plasma 125 pg/mL 50-150 [facility] (NOTE)Results of this test are labeled f or research purposes only by theassay's mash tub cooker operator. The performance characteristics of this assayhave not been established by the mash tub cooker operator. The result shouldnot be used for treatment or for diagnostic purposes withoutconfirmation of the diagnosis by another medically establisheddiagnostic product or procedure. The performance characteristics weredetermined by [facility].Performed At: [facility] [id number] Sanjai MD Ph:[phone] ID Date Data Source [id number] 05/12/2020 09:10:10 AM [facility] Name Value Range Interpretation Code Description Data Beronica rce(s) Supporting Document(s) C peptide [Mass/volume] in Serum or Plasma 4.7 ng/mL 0.8-5.2 [facility] ID Date Data Source [id number] 05/16/2020 01:06:15 PM [facility] Value Range Interpretation Code Description Data Beronica rce(s) Supporting Document(s) Insulin Ab [Units/volume] in Serum 13 uU/mL [facility] (NOTE)This test is also known as insulin autoantibody or IAA.This test was developed and its performance characteristicsdetermined by [facility]. It has not been cleared or approvedby the Food and Drug Administration.Reference Range:<5.0 Negative> or = 5.0 PositivePerformed At: [facility] [id number] [place], [place] [id number] Samuel H MD Ph:[id number] ID Date Data Source [id number] 05/08/2020 10:59:11 AM [facility] Value Range Interpretation Code Description Data Beronica rce(s) Supporting Document(s) Leukocytes [#/volume] in Blood by Automated count 7.2 10*3/uL 4-10 [facility] Erythrocytes [#/volume] in Blood by Automated count 2.77 10*6/uL 4.6- 6.1 L [facility] Hemoglobin [Mass/volume] in Blood 10.1 g/dL 13.5-18 L [facility] Hematocrit [Volume Fraction] of Blood by Automated count 29.4 % 4 1-53 L [facility] Erythrocyte mean corpuscular volume [Entitic volume] b y Automated count 106.0 fL 80-96 H [facility] Erythrocyte mean corpuscular hemoglobin [Entitic mass] by Automated count 36.4 pg 27-33 H [facility] Erythrocyte mean corpuscular hemoglobin concentration [Mass/volume] by Automated count 34.3 g/dL [facility].0[facility] width [Ratio] by Automated count 15.5 % 11.5-14.5 H [facility] Platelets [#/volume] in Blood by Automated count 98 10*3/uL 150-400 L [facility] ID Date Data Source [id number] 05/08/2020 11:19:32 AM [facility] Name Value Range Interpretation Code Description Data Beronica rce(s) Supporting Document(s) Beta hydroxybutyrate [Moles/volume] in Serum or Plasma 0.09 mmol/L <0 .60 [facility] (NOTE) <0.60 Normal 0.60-1.50 May indicate the development of a problem >1.50 At risk for DKA ID Date Data Source [id number] 05/08/2020 11:19:32 AM [facility] Value Range Interpretation Code Description Data Beronica rce(s) Supporting Document(s) Bicarbonate [Moles/volume] in Serum 22 mmol/L 22-29 [facility] Chloride [Moles/volume] in Serum or Plasma 99 mmol/L 98-107 [facility] Creatinine [Mass/volume] in Serum or Plasma 0.44 mg/dL 0.70-1.20 [facility] IctericConfirmed Glucose [Mass/volume] in Serum or Plasma 105 mg/dL 70-140 [facility] Potassium [Moles/volume] in Serum or Plasma 3.7 mmol/L 3.4-5.1 [facility] Sodium [Moles/volume] in Serum or Plasma 129 mmol/L 136-145 [facility] Urea nitrogen [Mass/volume] in Serum or Plasma 6 mg/dL 6-20 [facility] Anion gap 3 in Serum or Plasma 9 mmol/L 8-15 [facility] Osmolality of Serum or Plasma by calculation 266 mosm/kg 275-300 L [facility] Creatinine/Urea nitrogen [Mass Ratio] in Serum or Plasma 14 [facility] Calcium [Mass/volume] in Serum or Plasma 7.9 mg/dL 8.6-10.0 [facility] Glomerular filtration rate/1.73 sq M pre dicted among non-blacks [Volume Rate/Area] in Serum or Plasma by Creatinine-based formula (MDRD) >6 0 [facility] Glomerular filtration rate/1.73 sq M pre dicted among blacks [Volume Rate/Area] in Serum or Plasma by Creatinine-based formula (MDRD) >60 [facility] ID Date Data Source [id number] 05/08/2020 08:49:11 AM [facility] Value Range Interpretation Code Description Data Beronica rce(s) Supporting Document(s) Glucose [Mass/volume] in Capillary blood by Glucometer 70 mg/dL 70- 140 [facility] ID Date Data Source [id number] 05/08/2020 05:57:47 AM [facility] Value Range Interpretation Code Description Data Beronica rce(s) Supporting Document(s) Prothrombin time (PT) 21.5 s 12.5-14.9 H [facility] INR in Platelet poor plasma by Coagulation assay 1.83 [facility] Routine intensity oral anticoagulation I NR is typically 2.0-3.0. Target INR must be clinically individualized. ID Date Data Source [id number] 05/08/2020 05:59:51 AM [facility] Value Range Interpretation Code Description Data Beroncia rce(s) Supporting Document(s) Albumin [Mass/volume] in Serum or Plasma by Bromocresol green (BCG) dye binding method 2.2 g/dL 3.5-5.2 [facility] Bil[facility].total [Mass/volume] in Serum or Plasma 12.9 mg/dL <1.2 H [facility] Bilirubin.direct [Mass/volume] in Serum or Plasma 9.0 mg/dL <0.3 H [facility] Alkaline phosphatase [Enzymatic activity/volume] in Serum or Plasma 115 U/L 40-129 [facility] Aspartate aminotransferase [Enzymatic activity/volume] in Serum or Plasma 111 U/L <40 H [facility] Alanine aminotransferase [Enzymatic activity/volume] in Seru m or Plasma 57 U/L <41 H [facility] Protein [Mass/volume] in Serum or Plasma 6.6 g/dL 6.4-8.3 [facility] ID Date Data Source [id number] 05/08/2020 05:59:51 AM [facility] Value Range Interpretation Code Description Data Beronica rce(s) Supporting Document(s) Magnesium [Mass/volume] in Serum or Plasma 1.6 mg/dL 1.6-2.6 [facility] ID Date Data Source [id number] [facility]59[facility] Value Range Interpretation Code Description Data Beronica rce(s) Supporting Document(s) Phosphate [Mass/volume] in Serum or Plasma 2.9 mg/dL 2.5-4.5 [facility] ID Date Data Source [id number] 05/08/2020 05:59:21 AM [facility] Name Value Range Interpretation Code Description Data Beronica rce(s) Supporting Document(s) Hemoglobin A1c/Hemoglobin.total in Blood by HPLC 4.2 % 4.0-6.0 [facility] Glucose mean value [Mass/volume] in Blood Estimated fr om glycated hemoglobin 74 mg/dL <126 [facility] ID Date Data Source [id number] 05/07/2020 10:43:[address] [facility] CT ABDOMEN PELVIS WITH CONTRAST [id number] AL RESULTInterpreted by:DANDRE MerinoROCEDURE INFORMATION: Exam: CT [...] rce(s) Supporting Document(s) ID Date Data Source [id number] 05/08/2020 12:02:31 AM [facility] Service Cmnt XXX-Imp : NoneMicroorganism XXX Cult : 2019 nCoV Real-Time RT-PCR: NOT DETECTEDTest performed using [employer] Respiratory Panel. This test is only for use under Food and Drug Administration's Emergency Use Authorization.Additional information is available on the following FDA websites for health care providers and patients. https://www.fda.gov/media/555485/download , https://www.fda.gov/me tin/806526/downloadPolymerase chain reaction is NEGATIVE for Influenza A H1, H3 and 2009 H1 viruses, Influenza B virus, Respiratory syncytial virus, Human metapneumovirus, Parainfluenza virus 1,2,3 and 4, Adenovirus, Rhinovirus/ Enterovirus, Coronavirus HKU1, NL63, OC43 and 229E, Bordetella pertussis, B. parapertussis, Mycoplasma pneumoniae and Chlamydia pneumoniae. Name Value Range Interpretation Code Description Data Beronica rce(s) Supporting Document(s) ID Date Data Source [id number] 05/07/2020 10:39:00 PM [facility] Service Cmnt XXX-Imp : NoneMicroorganism XXX Cult : 2019 nCoV Real-Time RT-PCR: NOT DETECTEDTest performed using [employer] Respiratory Panel. This test is only for use under Food and Drug Administration's Emergency Use Authorization.Additional information is available on the following FDA websites for health care providers and patients. https://www.fda.gov/media/646251/download , https://www.fda.gov/me tin/747505/downloadPolymerase chain reaction is NEGATIVE for Influenza A H1, H3 and 2009 H1 viruses, Influenza B virus, Respiratory syncytial virus, Human metapneumovirus, Parainfluenza virus 1,2,3 and 4, Adenovirus, Rhinovirus/ Enterovirus, Coronavirus HKU1, NL63, OC43 and 229E, Bordetella pertussis, B. parapertussis, Mycoplasma pneumoniae and Chlamydia pneumoniae. Name Value Range Interpretation Code Description Data Beronica rce(s) Supporting Document(s) Microorganism identified in Unspecified specimen by [facility] This lab was ordered by [facility] and reported by [facility]. ID Date Data Source [id number] 05/07/2020 09:34:33 PM [facility] Name Value Range Interpretation Code Description Data Beronica rce(s) Supporting Document(s) Glucose [Mass/volume] in Capillary blood by Glucometer 89 mg/dL 70- 140 [facility] ID Date Data Source [id number] 05/07/2020 05:08:17 PM [facility] Name Value Range Interpretation Code Description Data Beronica rce(s) Supporting Document(s) Glucose [Mass/volume] in Capillary blood by Glucometer 103 mg/dL 70- 140 [facility] ID Date Data Source [id number] 05/07/2020 04:21:43 PM [facility] NM HEPATOBILIARY IMAGING HIDA [id number] RESULTInterpreted by:Christine Bee MDINDICATION: Evaluate for biliary abnormality. Suspected alcoholic [...] rce(s) Supporting Document(s) ID Date Data Source [id number] 05/07/2020 12:22:34 PM [facility] Value Range Interpretation Code Description Data Beronica rce(s) Supporting Document(s) Glucose [Mass/volume] in Capillary blood by Glucometer 79 mg/dL 70- 140 [facility] ID Date Data Source [id number] 05/07/2020 08:19:42 AM [facility] Value Range Interpretation Code Description Data Beronica rce(s) Supporting Document(s) Glucose [Mass/volume] in Capillary blood by Glucometer 74 mg/dL 70- 140 [facility] ID Date Data Source [id number] 05/07/2020 08:19:37 AM [facility] Value Range Interpretation Code Description Data Beronica rce(s) Supporting Document(s) Glucose [Mass/volume] in Capillary blood by Glucometer 35 mg/dL 70- 140 [facility] ID Date Data Source [id number] 05/07/2020 08:34:45 AM [facility] Value Range Interpretation Code Description Data Beronica rce(s) Supporting Document(s) Bicarbonate [Moles/volume] in Serum 23 mmol/L 22-29 [facility] Chloride [Moles/volume] in Serum or Plasma 100 mmol/L 98-107 [facility] Creatinine [Mass/volume] in Serum or Plasma 0.38 mg/dL 0.70-1.20 L [facility] Icteric Glucose [Mass/volume] in Serum or Plasma 89 mg/dL 70-140 [facility] Potassium [Moles/volume] in Serum or Plasma 4.2 mmol/L 3.4-5.1 [facility] Sodium [Moles/volume] in Serum or Plasma 132 mmol/L 136-145 L [facility] Urea nitrogen [Mass/volume] in Serum or Plasma 6 mg/dL 6-20 [facility] Anion gap 3 in Serum or Plasma 9 mmol/L 8-15 [facility] Osmolality of Serum or Plasma by calculation 271 mosm/kg 275-300 L [facility] Creatinine/Urea nitrogen [Mass Ratio] in Serum or Plasma 16 [facility] Calcium [Mass/volume] in Serum or Plasma 8.0 mg/dL 8.6-10.0 L [facility] Glomerular filtration rate/1.73 sq M pre dicted among non-blacks [Volume Rate/Area] in Serum or Plasma by Creatinine-based formula (MDRD) >6 0 [facility] Glomerular filtration rate/1.73 sq M pre dicted among blacks [Volume Rate/Area] in Serum or Plasma by Creatinine-based formula (MDRD) >60 [facility] ID Date Data Source [id number] 05/07/2020 04:56:00 AM EDT [facility] Name Value Range Interpretation Code Description Data Beronica rce(s) Supporting Document(s) Leukocytes [#/volume] in Blood by Automated count 6.7 10*3/uL 4-10 [facility] Erythrocytes [#/volume] in Blood by Automated count 2.77 10*6/uL 4.6- 6.1 [facility] Hemoglobin [Mass/volume] in Blood 10.1 g/dL 13.5-18 L [facility] Hematocrit [Volume Fraction] of Blood by Automated count 29.6 % 4 1-53 L [facility] Erythrocyte mean corpuscular volume [Entitic volume] b y Automated count 106.8 fL 80-96 H [facility] Erythrocyte mean corpuscular hemoglobin [Entitic mass] by Automated count 36.5 pg 27-33 H [facility] Erythrocyte mean corpuscular hemoglobin concentration [Mass/volume] by Automated count 34.2 g/dL 32.0-36.0 [facility] E[facility] distribution width [Ratio] by Automated count 15.8 % 11.5-14.5 H [facility] Platelets [#/volume] in Blood by Automated count 89 10*3/uL 150-400 L [facility] ID Date Data Source [id number] 05/07/2020 05:08:11 AM [facility] Value Range Interpretation Code Description Data Beronica rce(s) Supporting Document(s) Prothrombin time (PT) 23.2 s 12.5-14.9 H [facility] INR in Platelet poor plasma by Coagulation assay 2.02 [facility] Routine intensity oral anticoagulation I NR is typically 2.0-3.0. Target INR must be clinically individualized. ID Date Data Source [id number] 05/07/2020 05:23:08 AM [facility] Value Range Interpretation Code Description Data Beronica rce(s) Supporting Document(s) Albumin [Mass/volume] in Serum or Plasma by Bromocresol green (BCG) dye binding method 2.1 g/dL 3.5-5.2 [facility] Bilirubin.total [Mass/volume] in Serum or Plasma 12.0 mg/dL <1.2 H [facility] Bilirubin.direct [Mass/volume] in Serum or Plasma 8.3 mg/dL <0.3 H [facility] Alkaline phosphatase [Enzymatic activity/volume] in Serum or Plasma 118 U/L 40-129 [facility] Aspartate aminotransferase [Enzymatic activity/volume] in Serum or Plasma 109 U/L <40 H [facility] Alanine aminotransferase [Enzymatic activity/volume] in Seru m or Plasma 57 U/L <41 H [facility] Protein [Mass/volume] in Serum or Plasma 6.4 g/dL 6.4-8.3 [facility] ID Date Data Source [id number] 05/07/2020 05:23:08 AM [facility] Value Range Interpretation Code Description Data Beronica rce(s) Supporting Document(s) Magnesium [Mass/volume] in Serum or Plasma 1.5 mg/dL 1.6-2.6 L [facility] ID Date Data Source [id number] 05/07/2020 05:23:08 AM [facility] Value Range Interpretation Code Description Data Beronica rce(s) Supporting Document(s) Phosphate [Mass/volume] in Serum or Plasma 2.6 mg/dL 2.5-4.5 [facility] ID Date Data Source [id number] 05/06/2020 09:32:24 PM [facility] Value Range Interpretation Code Description Data Beronica rce(s) Supporting Document(s) Glucose [Mass/volume] in Capillary blood by Glucometer 94 mg/dL 70- 140 [facility] ID Date Data Source [id number] 05/06/2020 05:49:[facility] HEAD WITHOUT CONTRAST [id number] RESU LTInterpreted by:DANDRE MckeonROCEDURE INFORMATION: Exam: CT [...] rce(s) Supporting Document(s) ID Date Data Source [id number] 05/06/2020 05:14:03 PM [facility] Name Value Range Interpretation Code Description Data Beronica rce(s) Supporting Document(s) Glucose [Mass/volume] in Capillary blood by Glucometer 98 mg/dL 70- 140 [facility] ID Date Data Source [id number] 05/06/2020 03:53:52 PM [facility] Name Value Range Interpretation Code Description Data Beronica rce(s) Supporting Document(s) Glucose [Mass/volume] in Capillary blood by Glucometer 83 mg/dL 70- 140 [facility] ID Date Data Source [id number] 05/06/2020 03:42:36 PM [facility] US ABDOMEN LIMITED [id number] RESULTInte rpreted by:Kevin Walker [facility] H[facility]ORY:49-year-old male with hyperbilirubinemia and transaminitis, who [...] of normal measuring 2.6 mm. There is [id number] gallbladder sludge and mobile gallstones layering dependently [...] rce(s) Supporting Document(s) ID Date Data Source [id number] 05/06/2020 01:42:46 PM [facility] Name Value Range Interpretation Code Description Data Beronica rce(s) Supporting Document(s) Leukocytes [#/volume] in Blood by Automated count 6.7 10*3/uL 4-10 [facility] Erythrocytes [#/volume] in Blood by Automated count 2.85 10*6/uL 4.6- 6.1 L [facility] Hemoglobin [Mass/volume] in Blood 10.4 g/dL 13.5-18 L [facility] Hematocrit [Volume Fraction] of Blood by Automated count 30.3 % 4 1-53 L [facility] Erythrocyte mean corpuscular volume [Entitic volume] b y Automated count 106.1 fL 80-96 H [facility] Erythrocyte mean corpuscular hemoglobin [Entitic mass] by Automated count 36.4 pg 27-33 H [facility] Erythrocyte mean corpuscular hemoglobin concentration [Mass/volume] by Automated count 34.3 g/dL 32.0-36.0 [facility] E[facility]th[facility] distribution width [Ratio] by Automated count 15.7 % 11.5-14.5 [facility] Platelets [#/volume] in Blood by Automated count 87 10*3/uL 150-400 L [facility] ID Date Data Source [id number] 05/06/2020 12:33:22 PM [facility] Name Value Range Interpretation Code Description Data Beronica rce(s) Supporting Document(s) Glucose [Mass/volume] in Capillary blood by Glucometer 96 mg/dL 70- 140 [facility] ID Date Data Source [id number] 05/06/2020 08:34:21 AM [facility] Value Range Interpretation Code Description Data Beronica rce(s) Supporting Document(s) Glucose [Mass/volume] in Capillary blood by Glucometer 90 mg/dL 70- 140 [facility] ID Date Data Source [id number] 05/06/2020 05:30:17 AM [facility] Name Value Range Interpretation Code Description Data Beronica rce(s) Supporting Document(s) Bicarbonate [Moles/volume] in Serum 23 mmol/L 22-29 [facility] Chloride [Moles/volume] in Serum or Plasma 100 mmol/L 98-107 [facility] Creatinine [Mass/volume] in Serum or Plasma 0.34 mg/dL 0.70-1.20 [facility] Icteric Glucose [Mass/volume] in Serum or Plasma 115 mg/dL 70-140 [facility] Potassium [Moles/volume] in Serum or Plasma 4.2 mmol/L 3.4-5.1 [facility] Sodium [Moles/volume] in Serum or Plasma 133 mmol/L 136-145 L [facility] Urea nitrogen [Mass/volume] in Serum or Plasma 7 mg/dL 6-20 [facility] Anion gap 3 in Serum or Plasma 9 mmol/L 8-15 [facility] Osmolality of Serum or Plasma by calculation 275 mosm/kg 275-300 [facility] Creatinine/Urea nitrogen [Mass Ratio] in Serum or Plasma 21 [facility] Calcium [Mass/volume] in Serum or Plasma 8.3 mg/dL 8.6-10.0 L [facility] Glomerular filtration rate/1.73 sq M pre dicted among non-blacks [Volume Rate/Area] in Serum or Plasma by Creatinine-based formula (MDRD) >6 0 [facility] Glomerular filtration rate/1.73 sq M pre dicted among blacks [Volume Rate/Area] in Serum or Plasma by Creatinine-based formula (MDRD) >60 [facility] ID Date Data Source [id number] 05/06/2020 05:30:17 AM [facility] Value Range Interpretation Code Description Data Beronica rce(s) Supporting Document(s) Magnesium [Mass/volume] in Serum or Plasma 1.6 mg/dL 1.6-2.6 [facility] ID Date Data Source [id number] 05/06/2020 05:30:17 AM [facility] Value Range Interpretation Code Description Data Beronica rce(s) Supporting Document(s) Phosphate [Mass/volume] in Serum or Plasma 3.0 mg/dL 2.5-4.5 [facility] ID Date Data Source [id number] 05/06/2020 05:46:24 AM [facility] Value Range Interpretation Code Description Data Beronica rce(s) Supporting Document(s) Prothrombin time (PT) 21.9 s 12.5-14.9 H [facility] INR in Platelet poor plasma by Coagulation assay 1.87 [facility] Routine intensity oral anticoagulation I NR is typically 2.0-3.0. Target INR must be clinically individualized. ID Date Data Source [id number] 05/06/2020 08:58:07 AM [facility] Value Range Interpretation Code Description Data Beronica rce(s) Supporting Document(s) Albumin [Mass/volume] in Serum or Plasma by Bromocresol green (BCG) dye binding method 2.6 g/dL 3.5-5.2 [facility] Bilirubin.total [Mass/volume] in Serum or Plasma 13.4 mg/dL <1.2 H [facility] Bilirubin.direct [Mass/volume] in Serum or Plasma 9.0 mg/dL <0.3 H [facility] Alkaline phosphatase [Enzymatic activity/volume] in Serum or Plasma 127 U/L 40-129 [facility] Aspartate aminotransferase [Enzymatic activity/volume] in Serum or Plasma 113 U/L <40 H [facility] Alanine aminotransferase [Enzymatic activity/volume] in Seru m or Plasma 62 U/L <41 H [facility] Protein [Mass/volume] in Serum or Plasma 6.9 g/dL 6.4-8.3 [facility] ID Date Data Source [id number] [facility] Code Description Data Beronica rce(s) Supporting Document(s) Glucose [Mass/volume] in Capillary blood by Glucometer 77 mg/dL 70- 140 [facility] ID Date Data Source [id number] 05/05/2020 09:08:04 PM [facility] Value Range Interpretation Code Description Data Beronica rce(s) Supporting Document(s) Glucose [Mass/volume] in Capillary blood by Glucometer 140 mg/dL 70- 140 [facility] ID Date Data Source [id number] 05/05/2020 08:14:52 PM [facility] Value Range Interpretation Code Description Data Beronica rce(s) Supporting Document(s) Glucose [Mass/volume] in Capillary blood by Glucometer 103 mg/dL 70- 140 [facility] ID Date Data Source [id number] 05/05/2020 06:49:59 PM [facility] Value Range Interpretation Code Description Data Beronica rce(s) Supporting Document(s) Glucose [Mass/volume] in Capillary blood by Glucometer 108 mg/dL 70- 140 [facility] ID Date Data Source [id number] 05/05/2020 08:10:19 PM [facility] Service Cmnt XXX-Imp : NoneMicroorganism XXX Cult : 2019 nCoV Real-Time RT-PCR: NOT DETECTEDTest performed using [employer] Respiratory Panel. This test is only for use under Food and Drug Administration's Emergency Use Authorization.Additional information is available on the following FDA websites for health care providers and patients. https://www.fda.gov/media/733323/download , https://www.fda.gov/nj tin/695815/downloadPolymerase chain reaction is NEGATIVE for Influenza A H1, H3 and 2009 H1 viruses, Influenza B virus, Respiratory syncytial virus, Human metapneumovirus, Parainfluenza virus 1,2,3 and 4, Adenovirus, Rhinovirus/ Enterovirus, Coronavirus HKU1, NL63, OC43 and 229E, Bordetella pertussis, B. parapertussis, Mycoplasma pneumoniae and Chlamydia pneumoniae. Name Value Range Interpretation Code Description Data Beronica rce(s) Supporting Document(s) ID Date Data Source [id number] 05/05/2020 06:19:00 PM [facility] Service Cmnt XXX-Imp : NoneMicroorganism XXX Cult : 2019 nCoV Real-Time RT-PCR: NOT DETECTEDTest performed using [employer] Respiratory Panel. This test is only for use under Food and Drug Administration's Emergency Use Authorization.Additional information is available on the following FDA websites for health care providers and patients. https://www.fda.gov/media/671889/download , https://www.fda.gov/nj tin/321791/downloadPolymerase chain reaction is NEGATIVE for Influenza A H1, H3 and 2009 H1 viruses, Influenza B virus, Respiratory syncytial virus, Human metapneumovirus, Parainfluenza virus 1,2,3 and 4, Adenovirus, Rhinovirus/ Enterovirus, Coronavirus HKU1, NL63, OC43 and 229E, Bordetella pertussis, B. parapertussis, Mycoplasma pneumoniae and Chlamydia pneumoniae. Name Value Range Interpretation Code Description Data Beronica rce(s) Supporting Document(s) Microorganism identified in Unspecified specimen by [facility] This lab was ordered by [facility] and reported by [facility]. ID Date Data Source [id number] 05/05/2020 05:34:13 PM [facility] Name Value Range Interpretation Code Description Data Beronica rce(s) Supporting Document(s) Glucose [Mass/volume] in Capillary blood by Glucometer 85 mg/dL 70- 140 [facility] ID Date Data Source [id number] 05/05/2020 05:06:49 PM [facility] Value Range Interpretation Code Description Data Beronica rce(s) Supporting Document(s) Glucose [Mass/volume] in Capillary blood by Glucometer 69 mg/dL 70- 140 [facility] ID Date Data Source [id number] 05/05/2020 05:06:49 PM [facility] Value Range Interpretation Code Description Data Beronica rce(s) Supporting Document(s) Glucose [Mass/volume] in Capillary blood by Glucometer 61 mg/dL 70- 140 [facility] ID Date Data Source [id number] 05/05/2020 12:19:26 PM [facility] Value Range Interpretation Code Description Data Beronica rce(s) Supporting Document(s) Glucose [Mass/volume] in Capillary blood by Glucometer 72 mg/dL 70- 140 [facility] ID Date Data Source [id number] 05/05/2020 09:42:42 AM [facility] Value Range Interpretation Code Description Data Beronica rce(s) Supporting Document(s) Albumin [Mass/volume] in Serum or Plasma by Bromocresol green (BCG) dye binding method 2.6 g/dL 3.5-5.2 [facility] Bil[facility].total [Mass/volume] in Serum or Plasma 13.2 mg/dL <1.2 H [facility] Calcium [Mass/volume] in Serum or Plasma 8.3 mg/dL 8.6-10.0 L [facility] Chloride [Moles/volume] in Serum or Plasma 95 mmol/L 98-107 L [facility] Creatinine [Mass/volume] in Serum or Plasma 0.40 mg/dL 0.70-1.20 L [facility] Icteric Glucose [Mass/volume] in Serum or Plasma 125 mg/dL 70-140 [facility] Alkaline phosphatase [Enzymatic activity/volume] in Serum or Plasma 134 U/L 40-129 H [facility] Potassium [Moles/volume] in Serum or Plasma 3.0 mmol/L 3.4-5.1 L [facility] Protein [Mass/volume] in Serum or Plasma 7.0 g/dL 6.4-8.3 [facility] Sodium [Moles/volume] in Serum or Plasma 129 mmol/L 136-145 L [facility] Aspartate aminotransferase [Enzymatic activity/volume] in Serum or Plasma 108 U/L <40 H [facility] Urea nitrogen [Mass/volume] in Serum or Plasma 7 mg/dL 6-20 [facility] Osmolality of Serum or Plasma by calculation 268 mosm/kg 275-300 L [facility] Creatinine/Urea nitrogen [Mass Ratio] in Serum or Plasma 18 [facility] Bicarbonate [Moles/volume] in Serum 24 mmol/L 22-29 [facility] Alanine aminotransferase [Enzymatic activity/volume] in Seru m or Plasma 59 U/L <41 H [facility] Anion gap 3 in Serum or Plasma 10 mmol/L 8-15 [facility] Glomerular filtration rate/1.73 sq M pre dicted among non-blacks [Volume Rate/Area] in Serum or Plasma by Creatinine-based formula (MDRD) >6 0 [facility] Glomerular filtration rate/1.73 sq M pre dicted among blacks [Volume Rate/Area] in Serum or Plasma by Creatinine-based formula (MDRD) >60 [facility] ID Date Data Source [id number] 05/05/2020 09:42:42 AM [facility] Value Range Interpretation Code Description Data Beronica rce(s) Supporting Document(s) Magnesium [Mass/volume] in Serum or Plasma 1.5 mg/dL 1.6-2.6 L [facility] ID Date Data Source [id number] 05/05/2020 09:42:42 AM [facility] Value Range Interpretation Code Description Data Beronica rce(s) Supporting Document(s) Phosphate [Mass/volume] in Serum or Plasma 3.0 mg/dL 2.5-4.5 [facility] ID Date Data Source [id number] 05/05/2020 08:38:21 AM [facility] Value Range Interpretation Code Description Data Beronica rce(s) Supporting Document(s) Glucose [Mass/volume] in Capillary blood by Glucometer 113 mg/dL 70- 140 [facility] ID Date Data Source [id number] 05/05/2020 06:22:21 AM [facility] Value Range Interpretation Code Description Data Beronica rce(s) Supporting Document(s) Glucose [Mass/volume] in Capillary blood by Glucometer 83 mg/dL 70- 140 [facility] ID Date Data Source [id number] 05/05/2020 05:30:59 AM [facility] Value Range Interpretation Code Description Data Beronica rce(s) Supporting Document(s) Prothrombin time (PT) 22.8 s 12.5-14.9 H [facility] INR in Platelet poor plasma by Coagulation assay 1.97 [facility] Routine intensity oral anticoagulation I NR is typically 2.0-3.0. Target INR must be clinically individualized. ID Date Data Source [id number] 05/04/2020 11:32:14 PM [facility] Value Range Interpretation Code Description Data Beronica rce(s) Supporting Document(s) Glucose [Mass/volume] in Capillary blood by Glucometer 124 mg/dL 70- 140 [facility] ID Date Data Source [id number] 05/04/2020 10:09:05 PM [facility] Value Range Interpretation Code Description Data Beronica rce(s) Supporting Document(s) Glucose [Mass/volume] in Capillary blood by Glucometer 111 mg/dL 70- 140 [facility] ID Date Data Source [id number] 05/04/2020 09:28:13 PM [facility] Value Range Interpretation Code Description Data Beronica rce(s) Supporting Document(s) Glucose [Mass/volume] in Capillary blood by Glucometer 103 mg/dL 70- 140 [facility] ID Date Data Source [id number] 05/04/2020 09:12:18 PM [facility] Value Range Interpretation Code Description Data Beronica rce(s) Supporting Document(s) Glucose [Mass/volume] in Capillary blood by Glucometer 66 mg/dL 70- 140 [facility] ID Date Data Source [id number] 05/04/2020 09:12:13 PM [facility] Value Range Interpretation Code Description Data Beronica rce(s) Supporting Document(s) Glucose [Mass/volume] in Capillary blood by Glucometer 64 mg/dL 70- 140 [facility] ID Date Data Source [id number] 05/04/2020 04:55:44 PM EDT [facility] Name Value Range Interpretation Code Description Data Beronica rce(s) Supporting Document(s) Glucose [Mass/volume] in Capillary blood by Glucometer 95 mg/dL 70- 140 [facility] ID Date Data Source [id number] 05/04/2020 12:29:03 PM EDT [facility] Name Value Range Interpretation Code Description Data Beronica rce(s) Supporting Document(s) Glucose [Mass/volume] in Capillary blood by Glucometer 95 mg/dL 70- 140 [facility] ID Date Data Source [id number] 05/04/2020 10:28:14 AM EDT [facility] Name Value Range Interpretation Code Description Data Beronica rce(s) Supporting Document(s) Progress Note [facility] YLTMPh4rMlPAAkGe94/ZQYhbBGZfs0EvRZkxLWq8EQnjXCEeU7FnKMN3wT0tAJH7IPsIQjRfZdHuOOP5 lbm [file] AgICAgICAgICAgICAgICAgICAgICAgICAgICAgICAgICAgICAgICAgICAgICAgICAgICAgICAgICAgIC AgICAgICAgICAgICAgICAgICAgICAgDQogICAgICAgICAgICAgICAgICAgICAgICAgICAgICAgICAgIC AgICAgICAgICAgICAgICAgICAgICAgICAgICAgICAg ICAgICAgICAgICAgICAgICAgICAgICAgICAgICAgICAgDQogICAgICAgICAgICAgICAgICAgICAgICAg ICAgICAgICAgICAgICAgICAgICAgICAgICAgICAgICAgICAgICAgICAgICAgICAgICAgICAgICAgICAg ICAgICAgICAgICAgICAgDQogICAgICAgICAgICAgIC AgICAgICAgICAgICAgICAgICAgICAgICAgICAgICAgICAgICAgICAgICAgICAgICAgICAgICAgICAgIC AgICAgICAgICAgICAgICAgICAgICAgICAgDQogICAgICAgICAgICAgICAgICAgICAgICAgICAgICAgIC AgICAgICAgICAgICAgICAgICAgICAgICAgICAgICAg ICAgICAgICAgICAgICAgICAgICAgICAgICAgICAgICAgICAgDQogICAgICAgICAgICAgICAgICAgICAg ICAgICAgICAgICAgICAgICAgICAgICAgICAgICAgICAgICAgICAgICAgICAgICAgICAgICAgICAgICAg ICAgICAgICAgICAgICAgICAgDQogICAgICAgICAgIC AgICAgICAgICAgICAgICAgICAgICAgICAgICAgICAgICAgICAgICAgICAgICAgICAgICAgICAgICAgIC AgICAgICAgICAgICAgICAgICAgICAgICAgICAgDQogICAgICAgICAgICAgICAgICAgICAgICAgICAgIC AgICAgICAgICAgICAgICAgICAgICAgICAgICAgICAg ICAgICAgICAgICAgICAgICAgICAgICAgICAgICAgICAgICAgICAgDQogICAgICAgICAgICAgICAgICAg ICAgICAgICAgICAgICAgICAgICAgICAgICAgICAgICAgICAgICAgICAgICAgICAgICAgICAgICAgICAg ICAgICAgICAgICAgICAgICAgICAgDQogICAgICAgIC AgICAgICAgICAgICAgICAgICAgICAgICAgICAgICAgICAgICAgICAgICAgICAgICAgICAgICAgICAgIC YkVJLnXEUvXKBdKTIcENPdCMUpOBReMJAhQLDvTHKiQSa8X4fzRPXhUXWqFL9iIOx4Uo2+DQoNCmVuZH C5njJnyL9DPC7az0IwZFnnHLLys2SfFHp3IE9ETFIg JCprRZ9EPTjtmm6DFZJwCYCfqFROe4sjUhOgURC2JHYrUohuRJ5TONRqV8uxioWyWKCeGQDDED6DSeEi O7NcbJ53FRZMOr5+EZfvsmAzGhbBLdE6GAJed3QnVOe0KM6ZZGIuBqgjr8RhBwQbNSSAGHwfIT8SSQO2 KFPqNLTkTw5BTFRqI758ssHoES4FEp1LYnThSO0ikd 4UAjJbACBrHrrGYef5IEpvHX2AkEYxGCqWxk1ymsBcdeCKt4PiwnHsvDIIsqTqFVKrSPSdFSicPCQoFS WuHU0eXY3kNXUgSNNvWfM0VJFTVA4WALVlPYIukLYoGEUwLWPDLS3QUOyjBCP4VTMajcTooNEsRBzzLX 9QYXJlbnQgMTkgMCBSDQo+Hl1QXM0zj2AaPSbhUYJy UI3tdc9SNMkPFiVxY3T6zZVmM3U2SAglAc3TEWDhVJVeZGylHDKQLFsyMA1FIL9azrT8KS9NsATvMIWg ODQavWKbXTd1Q14aaFXpPHunXF3ZZOQ+Claudia+Zw3CJDOwATMnSSAyZuWpOIXFSqDeY6EzL6UWw4VtR7Pb KG82nHldrqKxIWsgYZ5DFC9oPOOfCMGFQI5BhEOrxA 7vdfZvFJIuXITYRnRgP89orBXdZNJtVNX4BRJqIp0XYHPvN0XwpjJuyUtzphItFQDtRDOWJD1MYBaxql RciKJxwAyqXF66uMvqXK9CTq4CBnSaBC5vnm5GqOKgCd2ZBMUnIr8YIUCxEKOfXLRlGPO2JKSuPpQwMP msHYZhCZErHPN5PDElLVDqCL5OTwAmUXFqYOI2EHux PDDdMUYari3KGUEnAIAeAYV1HhDmTJTcNHXwDVhwCFSrCUQjIWX9BUWnOOGgNZ2LSgLaFCBiZUV8SaYr FVErTZVijy7MSXLcHYVzXLo1HZWmSAUaLIPxRAvtNNYkRNVhThU2JLKlPAOhCZ7AXyFxUORlWNE6IhPd ENErXAZooe6TLCGkBJHyQnEkTLKxPQZwRZUqERjwOF SnPSU2GHonCABsRNFmNU3KWoQeKPHcQJPcLzFsGISwLETfvq1QBSFkEWZbLEW8BYGyBIUzFAKgDMyzQT JlWZI7HWN8MXOyEBNjOC8KNfIhZWPrWAScByJhZXFvOPPrpa4ENXHhHVRzAiF9PWSjXSXrHIKkTGhhPA ZcFEJ2CAzzPXYiFGTfXG1HIxAmRDYnXJT3InylMWQw ZIOpci2VPVPzKVZnSoNfVrVfAOPxXGNdCUvsSHLjWAD9PRT2UIAkCEWmBZ0IUaJsFJGmWDd7FeOaGGLb KTFtaz6UFBYyMWCoWLp3ZrFqFPQcVEInQCx5ozDgpXAqDAx5QC8CA1IvhhVyStXTDo5Ms498EFGrQXJi Kn3KI8wwFt4aWFEqLGGRWn0CIJw2H9P9LQIiDBI3RI nkTOupUIBeDSMjOXWmAdL9DShcTEU+VXx8PthgLRMsUcAjIeMqCMJcIQOrRoGeSXJhWQV9T3OaIt5pVU ANCj4+DLnixEWgxDkdLLXDTxC1EYE5KUunOCJKNa3T ID Date Data Source [id number] 05/04/2020 08:02:58 AM [facility] Name Value Range Interpretation Code Description Data Beronica rce(s) Supporting Document(s) Glucose [Mass/volume] in Capillary blood by Glucometer 71 mg/dL 70- 140 [facility] ID Date Data Source [id number] 05/04/2020 08:02:58 AM [facility] Name Value Range Interpretation Code Description Data Beronica rce(s) Supporting Document(s) Glucose [Mass/volume] in Capillary blood by Glucometer 66 mg/dL 70- 140 L [facility] ID Date Data Source [id number] 05/04/2020 06:31:11 AM [facility] Value Range Interpretation Code Description Data Beronica rce(s) Supporting Document(s) Prothrombin time (PT) 23.3 s 12.5-14.9 H [facility] INR in Platelet poor plasma by Coagulation assay 2.03 [facility] Routine intensity oral anticoagulation I NR is typically 2.0-3.0. Target INR must be clinically individualized. ID Date Data Source [id number] 05/04/2020 06:46:06 AM [facility] Value Range Interpretation Code Description Data Beronica rce(s) Supporting Document(s) Bilirubin.direct [Mass/volume] in Serum or Plasma 9.0 mg/dL <0.3 H [facility] ID Date Data Source [id number] 05/04/2020 06:46:06 AM [facility] Value Range Interpretation Code Description Data Beronica rce(s) Supporting Document(s) Albumin [Mass/volume] in Serum or Plasma by Bromocresol green (BCG) dye binding method 2.3 g/dL 3.5-5.2 [facility] Bil[facility] [Mass/volume] in Serum or Plasma 13.1 mg/dL <1.2 H [facility] Calcium [Mass/volume] in Serum or Plasma 8.3 mg/dL 8.6-10.0 L [facility] Chloride [Moles/volume] in Serum or Plasma 99 mmol/L 98-107 [facility] Creatinine [Mass/volume] in Serum or Plasma 0.36 mg/dL 0.70-1.20 L [facility] Icteric Glucose [Mass/volume] in Serum or Plasma 78 mg/dL 70-140 [facility] Alkaline phosphatase [Enzymatic activity/volume] in Serum or Plasma 132 U/L 40-129 H [facility] Potassium [Moles/volume] in Serum or Plasma 3.3 mmol/L 3.4-5.1 L [facility] Protein [Mass/volume] in Serum or Plasma 6.6 g/dL 6.4-8.3 [facility] Sodium [Moles/volume] in Serum or Plasma 132 mmol/L 136-145 L [facility] Aspartate aminotransferase [Enzymatic activity/volume] in Serum or Plasma 106 U/L <40 H [facility] Urea nitrogen [Mass/volume] in Serum or Plasma 5 mg/dL 6-20 L [facility] Osmolality of Serum or Plasma by calculation 270 mosm/kg 275-300 L [facility] Creatinine/Urea nitrogen [Mass Ratio] in Serum or Plasma 14 [facility] Bicarbonate [Moles/volume] in Serum 24 mmol/L 22-29 [facility] Alanine aminotransferase [Enzymatic activity/volume] in Seru m or Plasma 52 U/L <41 H [facility] Anion gap 3 in Serum or Plasma 9 mmol/L 8-15 [facility] Glomerular filtration rate/1.73 sq M pre dicted among non-blacks [Volume Rate/Area] in Serum or Plasma by Creatinine-based formula (MDRD) >6 0 [facility] Glomerular filtration rate/1.73 sq M pre dicted among blacks [Volume Rate/Area] in Serum or Plasma by Creatinine-based formula (MDRD) >60 [facility] ID Date Data Source [id number] 05/03/2020 09:09:56 PM [facility] Name Value Range Interpretation Code Description Data Beronica rce(s) Supporting Document(s) Glucose [Mass/volume] in Capillary blood by Glucometer 138 mg/dL 70- 140 [facility] ID Date Data Source [id number] 05/03/2020 05:02:09 PM [facility] Name Value Range Interpretation Code Description Data Beronica rce(s) Supporting Document(s) Glucose [Mass/volume] in Capillary blood by Glucometer 121 mg/dL 70- 140 [facility] ID Date Data Source [id number] 05/03/2020 02:35:41 PM [facility] US RENAL OR AORTA COMPLETE [id number] RE SULTInterpreted by:Dudley Pastrana, [facility] INFORMATION: Exam: US Retroperitoneal; Complete; Kidneys and [...] kidneys and bladder. COMPARISON: US ABDOMEN LIMITED [id number] PORTABLE 04/28/2020 12:59 PM FINDINGS: Liver: There [...] rce(s) Supporting Document(s) ID Date Data Source [id number] 05/03/2020 12:25:08 PM [facility] Value Range Interpretation Code Description Data Beronica rce(s) Supporting Document(s) Glucose [Mass/volume] in Capillary blood by Glucometer 89 mg/dL 70- 140 [facility] ID Date Data Source [id number] 05/03/2020 10:26:00 AM [facility] Value Range Interpretation Code Description Data Beronica rce(s) Supporting Document(s) Glucose [Mass/volume] in Capillary blood by Glucometer 119 mg/dL 70- 140 [facility] ID Date Data Source [id number] 05/03/2020 08:57:45 AM [facility] Value Range Interpretation Code Description Data Beronica rce(s) Supporting Document(s) Glucose [Mass/volume] in Capillary blood by Glucometer 88 mg/dL 70- 140 [facility] ID Date Data Source [id number] 05/03/2020 08:23:52 AM [facility] Value Range Interpretation Code Description Data Beronica rce(s) Supporting Document(s) Glucose [Mass/volume] in Capillary blood by Glucometer 65 mg/dL 70- 140 L [facility] ID Date Data Source [id number] 05/03/2020 04:40:11 AM [facility] Value Range Interpretation Code Description Data Beronica rce(s) Supporting Document(s) Prothrombin time (PT) 22.1 s 12.5-14.9 H [facility] INR in Platelet poor plasma by Coagulation assay 1.90 [facility] Routine intensity oral anticoagulation I NR is typically 2.0-3.0. Target INR must be clinically individualized. ID Date Data Source [id number] 05/03/2020 05:45:43 AM [facility] Name Value Range Interpretation Code Description Data Beronica rce(s) Supporting Document(s) Bilirubin.direct [Mass/volume] in Serum or Plasma 9.0 mg/dL <0.3 H [facility] ID Date Data Source [id number] 05/03/2020 05:45:43 AM [facility] Name Value Range Interpretation Code Description Data Beronica rce(s) Supporting Document(s) Albumin [Mass/volume] in Serum or Plasma by Bromocresol green (BCG) dye binding method 2.4 g/dL 3.5-5.2 [facility] Bil[facility].total [Mass/volume] in Serum or Plasma 14.3 mg/dL <1.2 H [facility] Calcium [Mass/volume] in Serum or Plasma 8.2 mg/dL 8.6-10.0 L [facility] Chloride [Moles/volume] in Serum or Plasma 98 mmol/L 98-107 [facility] Creatinine [Mass/volume] in Serum or Plasma 0.21 mg/dL 0.70-1.20 L [facility] Icteric Glucose [Mass/volume] in Serum or Plasma 79 mg/dL 70-140 [facility] Alkaline phosphatase [Enzymatic activity/volume] in Serum or Plasma 135 U/L 40-129 H [facility] Potassium [Moles/volume] in Serum or Plasma 3.5 mmol/L 3.4-5.1 [facility] Protein [Mass/volume] in Serum or Plasma 7.5 g/dL 6.4-8.3 [facility] Sodium [Moles/volume] in Serum or Plasma 130 mmol/L 136-145 L [facility] Aspartate aminotransferase [Enzymatic activity/volume] in Serum or Plasma 113 U/L <40 H [facility] Urea nitrogen [Mass/volume] in Serum or Plasma 5 mg/dL 6-20 L [facility] Osmolality of Serum or Plasma by calculation 266 mosm/kg 275-300 L [facility] Creatinine/Urea nitrogen [Mass Ratio] in Serum or Plasma 22 [facility] Bicarbonate [Moles/volume] in Serum 23 mmol/L 22-29 [facility] Alanine aminotransferase [Enzymatic activity/volume] in Seru m or Plasma 53 U/L <41 H [facility] Anion gap 3 in Serum or Plasma 9 mmol/L 8-15 [facility] Glomerular filtration rate/1.73 sq M pre dicted among non-blacks [Volume Rate/Area] in Serum or Plasma by Creatinine-based formula (MDRD) >6 0 [facility] Glomerular filtration rate/1.73 sq M pre dicted among blacks [Volume Rate/Area] in Serum or Plasma by Creatinine-based formula (MDRD) >60 [facility] ID Date Data Source [id number] 05/03/2020 05:45:43 AM EDT [facility] Name Value Range Interpretation Code Description Data Beronica rce(s) Supporting Document(s) Phosphate [Mass/volume] in Serum or Plasma 3.1 mg/dL 2.5-4.5 [facility] ID Date Data Source [id number] 05/02/2020 05:04:51 PM [facility] Name Value Range Interpretation Code Description Data Beronica rce(s) Supporting Document(s) Glucose [Mass/volume] in Capillary blood by Glucometer 133 mg/dL 70- 140 [facility] ID Date Data Source [id number] 05/02/2020 03:22:46 PM [facility] Name Value Range Interpretation Code Description Data Beronica rce(s) Supporting Document(s) Color of Urine [facility] Clarity of Urine [facility] Specific gravity of Urine by Refractometry automated 1.003 1.003 -1.030 [facility] pH of Urine by Automated test strip 7.0 5.0-8.0 [facility] Protein [Mass/volume] in Urine by Automated test strip Neg [facility] Glucose [Mass/volume] in Urine by Automated test strip Neg [facility] Ketones [Mass/volume] in Urine by Automated test strip Neg [facility] Bilirubin.total [Presence] in Urine by Automated test strip Negative [facility] False-positive results may occur with ce rtain food additives or medications. Hemoglobin [Presence] in Urine by Automated test strip Neg ative [facility] Leukocyte esterase [Presence] in Urine by Automated test strip Negative [facility] Nitrite [Presence] in Urine by Automated test strip Negati ve [facility] Leukocytes [#/area] in Urine sediment by Automated count 0 -5 [facility] Erythrocytes [#/area] in Urine sediment by Automated count 7 /HPF 0-3 H [facility] Service comment [facility] ID Date Data Source [id number] 05/02/2020 12:32:18 PM [facility] Value Range Interpretation Code Description Data Beronica rce(s) Supporting Document(s) Glucose [Mass/volume] in Capillary blood by Glucometer 116 mg/dL 70- 140 [facility] ID Date Data Source [id number] 05/02/2020 08:28:17 AM [facility] Value Range Interpretation Code Description Data Beronica rce(s) Supporting Document(s) Glucose [Mass/volume] in Capillary blood by Glucometer 77 mg/dL 70- 140 [facility] ID Date Data Source [id number] 05/02/2020 04:09:22 AM [facility] Value Range Interpretation Code Description Data Beronica rce(s) Supporting Document(s) Prothrombin time (PT) 24.2 s 12.5-14.9 H [facility] INR in Platelet poor plasma by Coagulation assay 2.13 [facility] Routine intensity oral anticoagulation I NR is typically 2.0-3.0. Target INR must be clinically individualized. ID Date Data Source [id number] 05/02/2020 04:18:36 AM [facility] Value Range Interpretation Code Description Data Beronica rce(s) Supporting Document(s) Bilirubin.direct [Mass/volume] in Serum or Plasma 8.3 mg/dL <0.3 H [facility] ID Date Data Source [id number] 05/02/2020 04:18:36 AM [facility] Value Range Interpretation Code Description Data Beronica rce(s) Supporting Document(s) Albumin [Mass/volume] in Serum or Plasma by Bromocresol green (BCG) dye binding method 2.2 g/dL 3.5-5.2 [facility] Bilirubin.total [Mass/volume] in Serum or Plasma 12.3 mg/dL <1.2 H [facility] Calcium [Mass/volume] in Serum or Plasma 6.2 mg/dL 8.6-10.0 L [facility] Chloride [Moles/volume] in Serum or Plasma 102 mmol/L 98-107 [facility] Creatinine [Mass/volume] in Serum or Plasma 0.44 mg/dL 0.70-1.20 L [facility] Icteric Glucose [Mass/volume] in Serum or Plasma 83 mg/dL 70-140 [facility] Alkaline phosphatase [Enzymatic activity/volume] in Serum or Plasma 126 U/L 40-129 [facility] Potassium [Moles/volume] in Serum or Plasma 3.3 mmol/L 3.4-5.1 L [facility] Protein [Mass/volume] in Serum or Plasma 6.5 g/dL 6.4-8.3 [facility] Sodium [Moles/volume] in Serum or Plasma 135 mmol/L 136-145 L [facility] Aspartate aminotransferase [Enzymatic activity/volume] in Serum or Plasma 93 U/L <40 H [facility] Urea nitrogen [Mass/volume] in Serum or Plasma 4 mg/dL 6-20 L [facility] Osmolality of Serum or Plasma by calculation 276 mosm/kg 275-300 [facility] Creatinine/Urea nitrogen [Mass Ratio] in Serum or Plasma 10 [facility] Bicarbonate [Moles/volume] in Serum 25 mmol/L 22-29 [facility] Alanine aminotransferase [Enzymatic activity/volume] in Seru m or Plasma 42 U/L <41 H [facility] Anion gap 3 in Serum or Plasma 8 mmol/L 8-15 [facility] Glomerular filtration rate/1.73 sq M pre dicted among non-blacks [Volume Rate/Area] in Serum or Plasma by Creatinine-based formula (MDRD) >6 0 [facility] Glomerular filtration rate/1.73 sq M pre dicted among blacks [Volume Rate/Area] in Serum or Plasma by Creatinine-based formula (MDRD) >60 [facility] ID Date Data Source [id number] 05/02/2020 04:18:36 AM [facility] Name Value Range Interpretation Code Description Data Beronica rce(s) Supporting Document(s) Magnesium [Mass/volume] in Serum or Plasma 1.6 mg/dL 1.6-2.6 [facility] ID Date Data Source [id number] 05/02/2020 04:18:36 AM [facility] Name Value Range Interpretation Code Description Data Beronica rce(s) Supporting Document(s) Phosphate [Mass/volume] in Serum or Plasma 2.8 mg/dL 2.5-4.5 [facility] ID Date Data Source [id number] 05/01/2020 09:29:52 PM [facility] Name Value Range Interpretation Code Description Data Beronica rce(s) Supporting Document(s) Glucose [Mass/volume] in Capillary blood by Glucometer 151 mg/dL 70- 140 H [facility] ID Date Data Source [id number] 05/01/2020 05:38:50 PM [facility] Value Range Interpretation Code Description Data Beronica rce(s) Supporting Document(s) Glucose [Mass/volume] in Capillary blood by Glucometer 112 mg/dL 70- 140 [facility] ID Date Data Source [id number] 05/01/2020 12:22:05 PM [facility] Value Range Interpretation Code Description Data Beronica rce(s) Supporting Document(s) Glucose [Mass/volume] in Capillary blood by Glucometer 96 mg/dL 70- 140 [facility] ID Date Data Source [id number] 05/01/2020 10:25:19 AM [facility] Value Range Interpretation Code Description Data Beronica rce(s) Supporting Document(s) Albumin [Mass/volume] in Serum or Plasma by Bromocresol green (BCG) dye binding method 2.5 g/dL 3.5-5.2 [facility] Bilirubin.total [Mass/volume] in Serum or Plasma 14.5 mg/dL <1.2 H [facility] Calcium [Mass/volume] in Serum or Plasma 8.4 mg/dL 8.6-10.0 L [facility] Chloride [Moles/volume] in Serum or Plasma 97 mmol/L 98-107 L [facility] Creatinine [Mass/volume] in Serum or Plasma 0.36 mg/dL 0.70-1.20 L [facility] Icteric Glucose [Mass/volume] in Serum or Plasma 105 mg/dL 70-140 [facility] Alkaline phosphatase [Enzymatic activity/volume] in Serum or Plasma 155 U/L 40-129 H [facility] Potassium [Moles/volume] in Serum or Plasma 3.2 mmol/L 3.4-5.1 L [facility] Protein [Mass/volume] in Serum or Plasma 7.3 g/dL 6.4-8.3 [facility] Sodium [Moles/volume] in Serum or Plasma 130 mmol/L 136-145 L [facility] Aspartate aminotransferase [Enzymatic activity/volume] in Serum or Plasma 106 U/L <40 H [facility] Urea nitrogen [Mass/volume] in Serum or Plasma 4 mg/dL 6-20 L [facility] Osmolality of Serum or Plasma by calculation 267 mosm/kg 275-300 [facility] Creatinine/Urea nitrogen [Mass Ratio] in Serum or Plasma 12 [facility] Bicarbonate [Moles/volume] in Serum 24 mmol/L 22-29 [facility] Alanine aminotransferase [Enzymatic activity/volume] in Seru m or Plasma 46 U/L <41 H [facility] Anion gap 3 in Serum or Plasma 9 mmol/L 8-15 [facility] Glomerular filtration rate/1.73 sq M pre dicted among non-blacks [Volume Rate/Area] in Serum or Plasma by Creatinine-based formula (MDRD) >6 0 [facility] Glomerular filtration rate/1.73 sq M pre dicted among blacks [Volume Rate/Area] in Serum or Plasma by Creatinine-based formula (MDRD) >60 [facility] ID Date Data Source [id number] 05/01/2020 08:22:07 AM [facility] Value Range Interpretation Code Description Data Beronica rce(s) Supporting Document(s) Glucose [Mass/volume] in Capillary blood by Glucometer 71 mg/dL 70- 140 [facility] ID Date Data Source 6505/01/2020 05:33:32 AM [facility] Value Range Interpretation Code Description Data Beronica rce(s) Supporting Document(s) Prothrombin time (PT) 21.4 s 12.5-14.9 H [facility] INR in Platelet poor plasma by Coagulation assay 1.82 [facility] Routine intensity oral anticoagulation I NR is typically 2.0-3.0. Target INR must be clinically individualized. ID Date Data Source [id number] 05/01/2020 05:37:58 AM [facility] Value Range Interpretation Code Description Data Beronica rce(s) Supporting Document(s) Magnesium [Mass/volume] in Serum or Plasma 1.5 mg/dL 1.6-2.6 L [facility] ID Date Data Source [id number] 05/01/2020 05:37:58 AM [facility] Value Range Interpretation Code Description Data Beronica rce(s) Supporting Document(s) Phosphate [Mass/volume] in Serum or Plasma 2.6 mg/dL 2.5-4.5 [facility] ID Date Data Source [id number] 04/30/2020 09:11:55 PM [facility] Value Range Interpretation Code Description Data Beronica rce(s) Supporting Document(s) Glucose [Mass/volume] in Capillary blood by Glucometer 87 mg/dL 70- 140 [facility] ID Date Data Source [id number] 04/30/2020 05:04:15 PM [facility] Value Range Interpretation Code Description Data Beronica rce(s) Supporting Document(s) Glucose [Mass/volume] in Capillary blood by Glucometer 98 mg/dL 70- 140 [facility] ID Date Data Source [id number] 04/30/2020 04:20:06 PM [facility] Value Range Interpretation Code Description Data Beronica rce(s) Supporting Document(s) Magnesium [Mass/volume] in Serum or Plasma 1.6 mg/dL 1.6-2.6 [facility] ID Date Data Source [id number] 04/30/2020 04:08:24 PM [facility] Value Range Interpretation Code Description Data Beronica rce(s) Supporting Document(s) Calcium.ionized [Moles/volume] in Arterial blood 1.10 mmol/L 1.13-1.3 2 L [facility] ID Date Data Source [id number] 04/30/2020 12:28:31 PM [facility] Value Range Interpretation Code Description Data Beronica rce(s) Supporting Document(s) Glucose [Mass/volume] in Capillary blood by Glucometer 96 mg/dL 70- 140 [facility] ID Date Data Source [id number] 04/30/2020 12:31:36 PM [facility] Value Range Interpretation Code Description Data Beronica rce(s) Supporting Document(s) Glucose [Mass/volume] in Capillary blood by Glucometer 88 mg/dL 70- 140 [facility] ID Date Data Source [id number] 04/30/2020 08:28:33 AM [facility] Value Range Interpretation Code Description Data Beronica rce(s) Supporting Document(s) Glucose [Mass/volume] in Capillary blood by Glucometer 90 mg/dL [facility] 140 [facility] ID Date Data Source [id number] 04/30/2020 06:44:33 AM [facility] Name Value Range Interpretation Code Description Data Beronica rce(s) Supporting Document(s) Bicarbonate [Moles/volume] in Serum 24 mmol/L 22-29 [facility] Chloride [Moles/volume] in Serum or Plasma 101 mmol/L 98-107 [facility] Creatinine [Mass/volume] in Serum or Plasma 0.27 mg/dL 0.70-1.20 L [facility] Icteric Glucose [Mass/volume] in Serum or Plasma 79 mg/dL 70-140 [facility] Potassium [Moles/volume] in Serum or Plasma 3.6 mmol/L 3.4-5.1 [facility] Sodium [Moles/volume] in Serum or Plasma 133 mmol/L 136-145 L [facility] Urea nitrogen [Mass/volume] in Serum or Plasma 4 mg/dL 6-20 L [facility] Anion gap 3 in Serum or Plasma 9 mmol/L 8-15 [facility] Osmolality of Serum or Plasma by calculation 272 mosm/kg 275-300 L [facility] Creatinine/Urea nitrogen [Mass Ratio] in Serum or Plasma 13 [facility] Calcium [Mass/volume] in Serum or Plasma 7.7 mg/dL 8.6-10.0 L [facility] Glomerular filtration rate/1.73 sq M pre dicted among non-blacks [Volume Rate/Area] in Serum or Plasma by Creatinine-based formula (MDRD) >6 0 [facility] Glomerular filtration rate/1.73 sq M pre dicted among blacks [Volume Rate/Area] in Serum or Plasma by Creatinine-based formula (MDRD) >60 [facility] ID Date Data Source [id number] 04/30/2020 06:44:33 AM [facility] Value Range Interpretation Code Description Data Beronica rce(s) Supporting Document(s) Magnesium [Mass/volume] in Serum or Plasma 1.7 mg/dL 1.6-2.6 [facility] ID Date Data Source [id number] 04/30/2020 06:57:05 AM [facility] Value Range Interpretation Code Description Data Beronica rce(s) Supporting Document(s) Prothrombin time (PT) 23.2 s 12.5-14.9 H [facility] INR in Platelet poor plasma by Coagulation assay 2.02 [facility] Routine intensity oral anticoagulation I NR is typically 2.0-3.0. Target INR must be clinically individualized. ID Date Data Source [id number] 04/30/2020 07:24:53 AM [facility] Value Range Interpretation Code Description Data Beronica rce(s) Supporting Document(s) Albumin [Mass/volume] in Serum or Plasma by Bromocresol green (BCG) dye binding method 2.2 g/dL 3.5-5.[address] [facility] al Bilirubin.total [Mass/volume] in Serum or Plasma 13.0 mg/dL <1.2 H [facility] Bilirubin.direct [Mass/volume] in Serum or Plasma 8.6 mg/dL <0.3 H [facility] Alkaline phosphatase [Enzymatic activity/volume] in Serum or Plasma 143 U/L 40-129 [facility] Aspartate aminotransferase [Enzymatic activity/volume] in Serum or Plasma 108 U/L <40 H [facility] Alanine aminotransferase [Enzymatic activity/volume] in Seru m or Plasma 39 U/L <41 [facility] Protein [Mass/volume] in Serum or Plasma 6.5 g/dL 6.4-8.3 [facility] ID Date Data Source [id number] 04/30/2020 07:24:53 AM [facility] Value Range Interpretation Code Description Data Beronica rce(s) Supporting Document(s) Phosphate [Mass/volume] in Serum or Plasma 2.4 mg/dL 2.5-4.5 [facility] ID Date Data Source [id number] 04/29/2020 06:20:20 PM [facility] Value Range Interpretation Code Description Data Beronica rce(s) Supporting Document(s) Bicarbonate [Moles/volume] in Serum 22 mmol/L 22-29 [facility] Chloride [Moles/volume] in Serum or Plasma 100 mmol/L 98-107 [facility] Creatinine [Mass/volume] in Serum or Plasma 0.31 mg/dL 0.70-1.20 L [facility] Icteric Glucose [Mass/volume] in Serum or Plasma 175 mg/dL 70-140 H [facility] Potassium [Moles/volume] in Serum or Plasma 3.9 mmol/L 3.4-5.1 [facility] Sodium [Moles/volume] in Serum or Plasma 130 mmol/L 136-145 L [facility] Urea nitrogen [Mass/volume] in Serum or Plasma 3 mg/dL 6-20 L [facility] Anion gap 3 in Serum or Plasma 9 mmol/L 8-15 [facility] Osmolality of Serum or Plasma by calculation 271 mosm/kg 275-300 L [facility] Creatinine/Urea nitrogen [Mass Ratio] in Serum or Plasma 10 [facility] Calcium [Mass/volume] in Serum or Plasma 7.9 mg/dL 8.6-10.0 L [facility] Glomerular filtration rate/1.73 sq M pre dicted among non-blacks [Volume Rate/Area] in Serum or Plasma by Creatinine-based formula (MDRD) >6 0 [facility] Glomerular filtration rate/1.73 sq M pre dicted among blacks [Volume Rate/Area] in Serum or Plasma by Creatinine-based formula (MDRD) >60 [facility] ID Date Data Source [id number] 04/29/2020 06:20:20 PM EDT [facility] Value Range Interpretation Code Description Data Beronica rce(s) Supporting Document(s) Magnesium [Mass/volume] in Serum or Plasma 1.8 mg/dL 1.6-2.6 [facility] ID Date Data Source [id number] 04/29/2020 05:02:58 PM [facility] Value Range Interpretation Code Description Data Beronica rce(s) Supporting Document(s) Glucose [Mass/volume] in Capillary blood by Glucometer 128 mg/dL 70- 140 [facility] ID Date Data Source [id number] 04/29/2020 04:25:37 PM EDT [facility] Value Range Interpretation Code Description Data Beronica rce(s) Supporting Document(s) [facility] [id number] [file] [id number] [file] [id number] ID Date Data Source [id number] 04/29/2020 12:15:29 PM [facility] Name Value Range Interpretation Code Description Data Beronica e(s) Supporting Document(s) Glucose [Mass/volume] in Capillary blood by Glucometer 85 mg/dL 70- 140 [facility] ID Date Data Source [id number] 04/29/2020 08:28:10 AM [facility] Name Value Range Interpretation Code Description Data Beronica rce(s) Supporting Document(s) Glucose [Mass/volume] in Capillary blood by Glucometer 71 mg/dL 70- 140 [facility] ID Date Data Source [id number] 04/29/2020 06:52:27 AM [facility] Name Value Range Interpretation Code Description Data Beronica rce(s) Supporting Document(s) Albumin [Mass/volume] in Serum or Plasma by Bromocresol green (BCG) dye binding method 2.1 g/dL 3.5-5.2 [facility] Bilirubin.total [Mass/volume] in Serum or Plasma 12.9 mg/dL <1.2 H [facility] Calcium [Mass/volume] in Serum or Plasma 7.6 mg/dL 8.6-10.0 L [facility] Chloride [Moles/volume] in Serum or Plasma 105 mmol/L 98-107 [facility] Creatinine [Mass/volume] in Serum or Plasma 0.34 mg/dL 0.70-1.20 L [facility] Icteric Glucose [Mass/volume] in Serum or Plasma 77 mg/dL 70-140 [facility] Alkaline phosphatase [Enzymatic activity/volume] in Serum or Plasma 147 U/L 40-129 H [facility] Potassium [Moles/volume] in Serum or Plasma 3.4 mmol/L 3.4-5.1 [facility] Protein [Mass/volume] in Serum or Plasma 6.4 g/dL 6.4-8.3 [facility] Sodium [Moles/volume] in Serum or Plasma 135 mmol/L 136-145 L [facility] Aspartate aminotransferase [Enzymatic activity/volume] in Serum or Plasma 122 U/L <40 H [facility] Urea nitrogen [Mass/volume] in Serum or Plasma 3 mg/dL 6-20 L [facility] Osmolality of Serum or Plasma by calculation 275 mosm/kg 275-300 [facility] Creatinine/Urea nitrogen [Mass Ratio] in Serum or Plasma 8 [facility] Bicarbonate [Moles/volume] in Serum 23 mmol/L 22-29 [facility] Alanine aminotransferase [Enzymatic activity/volume] in Seru m or Plasma 42 U/L <41 [facility] Anion gap 3 in Serum or Plasma 7 mmol/L 8-15 L [facility] Glomerular filtration rate/1.73 sq M pre dicted among non-blacks [Volume Rate/Area] in Serum or Plasma by Creatinine-based formula (MDRD) >6 0 [facility] Glomerular filtration rate/1.73 sq M pre dicted among blacks [Volume Rate/Area] in Serum or Plasma by Creatinine-based formula (MDRD) >60 [facility] ID Date Data Source [id number] 04/29/2020 07:23:40 AM EDT [facility] Name Value Range Interpretation Code Description Data Beronica rce(s) Supporting Document(s) Leukocytes [#/volume] in Blood by Automated count 4.7 10*3/uL 4-10 [facility] Erythrocytes [#/volume] in Blood by Automated count 2.79 10*6/uL 4.6- 6.1 L [facility] Hemoglobin [Mass/volume] in Blood 10.1 g/dL 13.5-18 L [facility] Hematocrit [Volume Fraction] of Blood by Automated count 29.4 % 4 1-53 L [facility] Erythrocyte mean corpuscular volume [Entitic volume] b y Automated count 105.1 fL 80-96 H [facility] Erythrocyte mean corpuscular hemoglobin [Entitic mass] by Automated count 36.2 pg 27-33 H [facility] Erythrocyte mean corpuscular hemoglobin concentration [Mass/volume] by Automated count 34.5 g/dL 32.0-36.0 [facility] E[facility] distribution width [Ratio] by Automated count 16.0 % 11.5-14.5 H [facility] Platelets [#/volume] in Blood by Automated count 73 10*3/uL 150-400 L [facility] Differential cell count method - Blood [facility] Neutrophils/100 leukocytes in Blood by Automated count 71 % [facility] Lymphocytes/100 leukocytes in Blood by Automated count 21 % [facility] Monocytes/100 leukocytes in Blood by Automated count 5 % [facility] Eosinophils/100 leukocytes in Blood by Automated count 1 % [facility] Neutrophils [#/volume] in Blood by Automated count 3.55 10*3/uL 1.8-7 .0 [facility] Lymphocytes [#/volume] in Blood by Automated count 1.05 10*3/uL 1.2-4 .0 L [facility] Monocytes [#/volume] in Blood by Automated count 0.25 10*3/uL 0-0.8 [facility] Eosinophils [#/volume] in Blood by Automated count 0.05 10*3/uL 0-0.5 [facility] Nucleated erythrocytes/100 leukocytes [Ratio] in Blood by Automated count 1 /100{WBCs} 0-0 H [facility] Variant lymphocytes/100 leukocytes in Blood by Manual count 1 % [facility] Myelocytes/100 leukocytes in Blood by Manual count 1 % [facility] Lymphocytes [#/volume] in Blood 0.05 10*3/uL 0 H [facility] Myelocytes [#/volume] in Blood by Manual count 0.05 10*3/uL 0-0 H [facility] Macrocytes [Presence] in Blood by Light microscopy [facility] Anisocytosis [Presence] in Blood by Light microscopy [facility] Target cells [Presence] in Blood by Light [facility] ID Date Data Source [id number] 04/29/2020 04:49:39 AM [facility] Name Value Range Interpretation Code Description Data Beronica rce(s) Supporting Document(s) Prothrombin time (PT) 23.1 s 12.5-14.9 H [facility] INR in Platelet poor plasma by Coagulation assay 2.00 [facility] Routine intensity oral anticoagulation I NR is typically 2.0-3.0. Target INR must be clinically individualized. ID Date Data Source [id number] 04/28/2020 11:00:55 PM [facility] Value Range Interpretation Code Description Data Beronica rce(s) Supporting Document(s) Bicarbonate [Moles/volume] in Serum 21 mmol/L 22-29 L [facility] Chloride [Moles/volume] in Serum or Plasma 106 mmol/L 98-107 [facility] Creatinine [Mass/volume] in Serum or Plasma 0.31 mg/dL 0.70-1.20 L [facility] Icteric Glucose [Mass/volume] in Serum or Plasma 102 mg/dL 70-140 [facility] Potassium [Moles/volume] in Serum or Plasma 3.9 mmol/L 3.4-5.1 [facility] Sodium [Moles/volume] in Serum or Plasma 136 mmol/L 136-145 [facility] Urea nitrogen [Mass/volume] in Serum or Plasma 2 mg/dL 6-20 L [facility] Anion gap 3 in Serum or Plasma 9 mmol/L 8-15 [facility] Osmolality of Serum or Plasma by calculation 279 mosm/kg 275-300 [facility] Creatinine/Urea nitrogen [Mass Ratio] in Serum or Plasma 8 [facility] Calcium [Mass/volume] in Serum or Plasma 7.3 mg/dL 8.6-10.0 L [facility] Glomerular filtration rate/1.73 sq M pre dicted among non-blacks [Volume Rate/Area] in Serum or Plasma by Creatinine-based formula (MDRD) >6 0 [facility] Glomerular filtration rate/1.73 sq M pre dicted among blacks [Volume Rate/Area] in Serum or Plasma by Creatinine-based formula (MDRD) >60 [facility] ID Date Data Source [id number] 04/28/2020 11:00:55 PM [facility] Name Value Range Interpretation Code Description Data Beronica rce(s) Supporting Document(s) Magnesium [Mass/volume] in Serum or Plasma 1.7 mg/dL 1.6-2.6 [facility] ID Date Data Source [id number] 04/28/2020 08:58:54 PM [facility] Value Range Interpretation Code Description Data Beronica rce(s) Supporting Document(s) Glucose [Mass/volume] in Capillary blood by Glucometer 123 mg/dL 70- 140 [facility] ID Date Data Source [id number] 04/28/2020 05:22:49 PM [facility] Value Range Interpretation Code Description Data Beronica rce(s) Supporting Document(s) Glucose [Mass/volume] in Capillary blood by Glucometer 135 mg/dL 70- 140 [facility] ID Date Data Source [id number] 04/28/2020 01:56:51 PM [facility] US ABDOMEN LIMITED [id number] RESULTInte rpreted by:JAYSON ThorpeLINICAL HISTORY:49-year-old male with [...] rce(s) Supporting Document(s) ID Date Data Source [id number] 04/28/2020 12:39:33 PM [facility] Value Range Interpretation Code Description Data Beronica rce(s) Supporting Document(s) Glucose [Mass/volume] in Capillary blood by Glucometer 113 mg/dL 70- 140 [facility] ID Date Data Source [id number] 04/28/2020 08:37:14 AM [facility] Value Range Interpretation Code Description Data Beronica rce(s) Supporting Document(s) Glucose [Mass/volume] in Capillary blood by Glucometer 95 mg/dL 70- 140 [facility] ID Date Data Source [id number] 04/28/2020 08:59:42 AM [facility] Value Range Interpretation Code Description Data Beronica rce(s) Supporting Document(s) Albumin [Mass/volume] in Serum or Plasma by Bromocresol green (BCG) dye binding method 2.3 g/dL 3.5-5.2 [facility] Bilirubin.total [Mass/volume] in Serum or Plasma 14.5 mg/dL <1.2 H [facility] Bilirubin.direct [Mass/volume] in Serum or Plasma 10.0 mg/dL <0.3 H [facility] Alkaline phosphatase [Enzymatic activity/volume] in Serum or Plasma 155 U/L 40-129 H [facility] Aspartate aminotransferase [Enzymatic activity/volume] in Serum or Plasma 177 U/L <40 H [facility] Alanine aminotransferase [Enzymatic activity/volume] in Seru m or Plasma 49 U/L <41 H [facility] Protein [Mass/volume] in Serum or Plasma 6.6 g/dL 6.4-8.3 [facility] ID Date Data Source [id number] 04/28/2020 08:59:43 AM [facility] Name Value Range Interpretation Code Description Data Beronica rce(s) Supporting Document(s) Magnesium [Mass/volume] in Serum or Plasma 1.8 mg/dL 1.6-2.6 [facility] ID Date Data Source [id number] 04/28/2020 08:59:43 AM [facility] Name Value Range Interpretation Code Description Data Beronica rce(s) Supporting Document(s) Bicarbonate [Moles/volume] in Serum 23 mmol/L 22-29 [facility] Chloride [Moles/volume] in Serum or Plasma 101 mmol/L 98-107 [facility] Creatinine [Mass/volume] in Serum or Plasma 0.24 mg/dL 0.70-1.20 [facility] Icteric Glucose [Mass/volume] in Serum or Plasma 105 mg/dL 70-140 [facility] Potassium [Moles/volume] in Serum or Plasma 3.3 mmol/L 3.4-5.1 [facility] Sodium [Moles/volume] in Serum or Plasma 134 mmol/L 136-145 [facility] Urea nitrogen [Mass/volume] in Serum or Plasma 2 mg/dL 6-20 [facility] Anion gap 3 in Serum or Plasma 9 mmol/L 8-15 [facility] Osmolality of Serum or Plasma by calculation 275 mosm/kg 275-300 [facility] Creatinine/Urea nitrogen [Mass Ratio] in Serum or Plasma 8 [facility] Calcium [Mass/volume] in Serum or Plasma 7.5 mg/dL 8.6-10.0 [facility] Glomerular filtration rate/1.73 sq M pre dicted among non-blacks [Volume Rate/Area] in Serum or Plasma by Creatinine-based formula (MDRD) >6 0 [facility] Glomerular filtration rate/1.73 sq M pre dicted among blacks [Volume Rate/Area] in Serum or Plasma by Creatinine-based formula (MDRD) >60 [facility] ID Date Data Source [id number] 04/28/2020 09:29:46 AM [facility] Name Value Range Interpretation Code Description Data Beronica rce(s) Supporting Document(s) Leukocytes [#/volume] in Blood by Automated count 5.6 10*3/uL 4-10 [facility] Erythrocytes [#/volume] in Blood by Automated count 2.85 10*6/uL 4.6- 6.1 [facility] Hemoglobin [Mass/volume] in Blood 10.4 g/dL 13.5-18 [facility] Hematocrit [Volume Fraction] of Blood by Automated count 30.1 % 4 1-53 L [facility] Erythrocyte mean corpuscular volume [Entitic volume] b y Automated count 105.4 fL 80-96 H [facility] Erythrocyte mean corpuscular hemoglobin [Entitic mass] by Automated count 36.4 pg 27-33 H [facility] Erythrocyte mean corpuscular hemoglobin concentration [Mass/volume] by Automated count 34.5 g/dL 32.0-36.0 [facility] al Erythrocyte distribution width [Ratio] by Automated count 16.4 % 11.5-14.5 H [facility] Platelets [#/volume] in Blood by Automated count 67 10*3/uL 150-400 L [facility] Differential cell count method - Blood [facility] Neutrophils/100 leukocytes in Blood by Automated count 79 % [facility] Lymphocytes/100 leukocytes in Blood by Automated count 12 % [facility] Monocytes/100 leukocytes in Blood by Automated count 6 % [facility] Basophils/100 leukocytes in Blood by Automated count 1 % [facility] Neutrophils [#/volume] in Blood by Automated count 4.50 10*3/uL 1.8-7 .0 [facility] Lymphocytes [#/volume] in Blood by Automated count 0.68 10*3/uL 1.2-4 .0 L [facility] Monocytes [#/volume] in Blood by Automated count 0.34 10*3/uL 0-0.8 [facility] Basophils [#/volume] in Blood by Automated count 0.06 10*3/uL 0-0.2 [facility] Variant lymphocytes/100 leukocytes in Blood by Manual count 2 % [facility] Lymphocytes [#/volume] in Blood 0.11 10*3/uL 0 H [facility] Macrocytes [Presence] in Blood by Light microscopy [facility] Anisocytosis [Presence] in Blood by Light microscopy [facility] Polychromasia [Presence] in Blood by Light microscopy [facility] Rouleaux [Presence] in Blood by Light microscopy [facility] Target cells [Presence] in Blood by Light [facility] ID Date Data Source [id number] 04/28/2020 07:49:33 AM EDT [facility] Name Value Range Interpretation Code Description Data Beroniac rce(s) Supporting Document(s) Glucose [Mass/volume] in Capillary blood by Glucometer 121 mg/dL 70- 140 [facility] ID Date Data Source [id number] 04/28/2020 05:53:37 AM [facility] Value Range Interpretation Code Description Data Beronica rce(s) Supporting Document(s) Prothrombin time (PT) 26.9 s 12.5-14.9 H [facility] INR in Platelet poor plasma by Coagulation assay 2.43 [facility] Routine intensity oral anticoagulation I NR is typically 2.0-3.0. Target INR must be clinically individualized. ID Date Data Source [id number] 04/27/2020 09:17:05 PM [facility] Value Range Interpretation Code Description Data Beronica rce(s) Supporting Document(s) Glucose [Mass/volume] in Capillary blood by Glucometer 170 mg/dL 70- 140 H [facility] ID Date Data Source [id number] 04/27/2020 07:01:20 PM [facility] Value Range Interpretation Code Description Data Beronica rce(s) Supporting Document(s) Albumin [Mass/volume] in Serum or Plasma by Bromocresol green (BCG) dye binding method 2.4 g/dL 3.5-5.2 L [facility] Bilirubin.total [Mass/volume] in Serum or Plasma 15.8 mg/dL <1.2 H [facility] Bilirubin.direct [Mass/volume] in Serum or Plasma 11.8 mg/dL <0.3 H [facility] Confirmed Alkaline phosphatase [Enzymatic activity/volume] in Serum or Plasma 170 U/L 40-129 H [facility] Aspartate aminotransferase [Enzymatic activity/volume] in Serum or Plasma 231 U/L <40 H [facility] Alanine aminotransferase [Enzymatic activity/volume] in Seru m or Plasma 57 U/L <41 H [facility] Protein [Mass/volume] in Serum or Plasma 7.1 g/dL 6.4-8.3 [facility] ID Date Data Source [id number] 04/27/2020 07:01:20 PM [facility] Value Range Interpretation Code Description Data Beronica rce(s) Supporting Document(s) Bicarbonate [Moles/volume] in Serum 20 mmol/L 22-29 L [facility] Chloride [Moles/volume] in Serum or Plasma 95 mmol/L 98-107 L [facility] Creatinine [Mass/volume] in Serum or Plasma 0.70-1.20 L [facility] IctericConfirmed Glucose [Mass/volume] in Serum or Plasma 271 mg/dL 70-140 H [facility] Potassium [Moles/volume] in Serum or Plasma 3.8 mmol/L 3.4-5.1 [facility] Sodium [Moles/volume] in Serum or Plasma 126 mmol/L 136-145 L [facility] Urea nitrogen [Mass/volume] in Serum or Plasma 6-20 L [facility] Confirmed Anion gap 3 in Serum or Plasma 11 mmol/L 8-15 [facility] Osmolality of Serum or Plasma by calculation 275-300 [facility] Creatinine/Urea nitrogen [Mass Ratio] in Serum or Plasma [facility] Calcium [Mass/volume] in Serum or Plasma 7.6 mg/dL 8.6-10.0 L [facility] Glomerular filtration rate/1.73 sq M pre dicted among non-blacks [Volume Rate/Area] in Serum or Plasma by Creatinine-based formula (MDRD) >6 0 [facility] Glomerular filtration rate/1.73 sq M pre dicted among blacks [Volume Rate/Area] in Serum or Plasma by Creatinine-based formula (MDRD) >60 [facility] ID Date Data Source [id number] 04/27/2020 07:01:20 PM [facility] Name Value Range Interpretation Code Description Data Beronica rce(s) Supporting Document(s) Thyrotropin [Units/volume] in Serum or Plasma 1.840 u[IU]/mL 0.270-4. 200 [facility] ID Date Data Source [id number] 04/27/2020 07:01:20 PM [facility] Value Range Interpretation Code Description Data Beronica rce(s) Supporting Document(s) Magnesium [Mass/volume] in Serum or Plasma 2.1 mg/dL 1.6-2.6 [facility] ID Date Data Source [id number] 04/27/2020 07:27:14 PM [facility] Value Range Interpretation Code Description Data Beronica rce(s) Supporting Document(s) Leukocytes [#/volume] in Blood by Automated count 3.1 10*3/uL 4-10 L [facility] Erythrocytes [#/volume] in Blood by Automated count 3.03 10*6/uL 4.6- 6.1 L [facility] Hemoglobin [Mass/volume] in Blood 10.9 g/dL 13.5-18 L [facility] Hematocrit [Volume Fraction] of Blood by Automated count 31.8 % 4 1-53 L [facility] Erythrocyte mean corpuscular volume [Entitic volume] b y Automated count 105.0 fL 80-96 H [facility] Erythrocyte mean corpuscular hemoglobin [Entitic mass] by Automated count 36.0 pg 27-33 H [facility] Erythrocyte mean corpuscular hemoglobin concentration [Mass/volume] by Automated count 34.3 g/dL 32.0-36.0 [facility] E[facility] distribution width [Ratio] by Automated count 16.2 % 11.5-14.5 H [facility] Platelets [#/volume] in Blood by Automated count 56 10*3/uL 150-400 L [facility] Differential cell count method - Blood [facility] Neutrophils/100 leukocytes in Blood by Automated count 90 % [facility] Lymphocytes/100 leukocytes in Blood by Automated count 8 % [facility] Monocytes/100 leukocytes in Blood by Automated count 1 % [facility] Neutrophils [#/volume] in Blood by Automated count 2.79 10*3/uL 1.8-7 .0 [facility] Lymphocytes [#/volume] in Blood by Automated count 0.25 10*3/uL 1.2-4 .0 L [facility] Monocytes [#/volume] in Blood by Automated count 0.03 10*3/uL 0-0.8 [facility] Band form neutrophils/100 leukocytes in Blood by Manual count 1 % [facility] Band form neutrophils [#/volume] in Blood by Manual count 0.03 10*3 /uL 0-0.6 [facility] Macrocytes [Presence] in Blood by Light microscopy [facility] Anisocytosis [Presence] in Blood by Light microscopy [facility] Target cells [Presence] in Blood by Light microscopy [facility] ID Date Data Source [id number] 04/27/2020 06:28:09 PM EDT [facility] Name Value Range Interpretation Code Description Data Beronica rce(s) Supporting Document(s) Ammonia [Moles/volume] in Plasma 16-60 L [facility] ID Date Data Source [id number] 04/27/2020 04:55:19 PM [facility] Name Value Range Interpretation Code Description Data Beronica rce(s) Supporting Document(s) Glucose [Mass/volume] in Capillary blood by Glucometer 140 mg/dL 70- 140 [facility] ID Date Data Source [id number] 04/27/2020 12:15:41 PM EDT [facility] Name Value Range Interpretation Code Description Data Beronica rce(s) Supporting Document(s) Glucose [Mass/volume] in Capillary blood by Glucometer 110 mg/dL 70- 140 [facility] ID Date Data Source [id number] 04/27/2020 10:07:03 AM EDT [facility] Name Value Range Interpretation Code Description Data Beronica rce(s) Supporting Document(s) [facility] [id number] lbm [file] [employer]/[id number] [file] ID Date Data Source [id number] 04/27/2020 08:36:55 AM EDT [facility] Name Value Range Interpretation Code Description Data Beronica e(s) Supporting Document(s) Leukocytes [#/volume] in Blood by Automated count 4.2 10*3/uL 4-10 [facility] Erythrocytes [#/volume] in Blood by Automated count 3.10 10*6/uL 4.6- 6.1 L [facility] Hemoglobin [Mass/volume] in Blood 11.1 g/dL 13.5-18 L [facility] Hematocrit [Volume Fraction] of Blood by Automated count 32.3 % 4 1-53 L [facility] Erythrocyte mean corpuscular volume [Entitic volume] b y Automated count 104.3 fL 80-96 H [facility] Erythrocyte mean corpuscular hemoglobin [Entitic mass] by Automated count 35.8 pg 27-33 H [facility] Erythrocyte mean corpuscular hemoglobin concentration [Mass/volume] by Automated count 34.4 g/dL 32.0-36.0 [facility] Erythrocyte distribution width [Ratio] by Automated count 16.3 % 11.5-14.5 H [facility] Platelets [#/volume] in Blood by Automated count 51 10*3/uL 150-400 L [facility] Differential cell count method - Blood [facility] Neutrophils/100 leukocytes in Blood by Automated count 61 % [facility] Lymphocytes/100 leukocytes in Blood by Automated count 28 % [facility] Monocytes/100 leukocytes in Blood by Automated count 9 % [facility] Eosinophils/100 leukocytes in Blood by Automated count 1 % [facility] Basophils/100 leukocytes in Blood by Automated count 1 % [facility] Neutrophils [#/volume] in Blood by Automated count 2.60 10*3/uL 1.8-7 .0 [facility] Lymphocytes [#/volume] in Blood by Automated count 1.16 10*3/uL 1.2-4 .0 L [facility] Monocytes [#/volume] in Blood by Automated count 0.36 10*3/uL 0-0.8 [facility] Eosinophils [#/volume] in Blood by Automated count 0.04 10*3/uL 0-0.5 [facility] Basophils [#/volume] in Blood by Automated count 0.03 10*3/uL 0-0.2 [facility] Nucleated erythrocytes/100 leukocytes [Ratio] in Blood by Automated count 0 /100{WBCs} 0-0 [facility] ID Date Data Source [id number] 04/27/2020 09:22:07 AM EDT [facility] Name Value Range Interpretation Code Description Data Beronica rce(s) Supporting Document(s) Bicarbonate [Moles/volume] in Serum 25 mmol/L 22-29 [facility] Chloride [Moles/volume] in Serum or Plasma 96 mmol/L 98-107 L [facility] Creatinine [Mass/volume] in Serum or Plasma 0.38 mg/dL 0.70-1.20 L [facility] Icteric Glucose [Mass/volume] in Serum or Plasma 80 mg/dL 70-140 [facility] Potassium [Moles/volume] in Serum or Plasma 3.3 mmol/L 3.4-5.1 L [facility] Sodium [Moles/volume] in Serum or Plasma 131 mmol/L 136-145 L [facility] Urea nitrogen [Mass/volume] in Serum or Plasma 2 mg/dL 6-20 L [facility] Anion gap 3 in Serum or Plasma 10 mmol/L 8-15 [facility] Osmolality of Serum or Plasma by calculation 267 mosm/kg 275-300 L [facility] Creatinine/Urea nitrogen [Mass Ratio] in Serum or Plasma 4 [facility] Calcium [Mass/volume] in Serum or Plasma 7.6 mg/dL 8.6-10.0 L [facility] Glomerular filtration rate/1.73 sq M pre dicted among non-blacks [Volume Rate/Area] in Serum or Plasma by Creatinine-based formula (MDRD) >6 0 [facility] Glomerular filtration rate/1.73 sq M pre dicted among blacks [Volume Rate/Area] in Serum or Plasma by Creatinine-based formula (MDRD) >60 [facility] ID Date Data Source [id number] 04/27/2020 09:22:07 AM [facility] Name Value Range Interpretation Code Description Data Beronica rce(s) Supporting Document(s) Magnesium [Mass/volume] in Serum or Plasma 1.7 mg/dL 1.6-2.6 [facility] ID Date Data Source [id number] 04/27/2020 09:51:11 AM [facility] Name Value Range Interpretation Code Description Data Beronica rce(s) Supporting Document(s) Albumin [Mass/volume] in Serum or Plasma by Bromocresol green (BCG) dye binding method 2.3 g/dL 3.5-5.2 L [facility] Bilirubin.total [Mass/volume] in Serum or Plasma 15.1 mg/dL <1.2 H [facility] Bilirubin.direct [Mass/volume] in Serum or Plasma 11.1 mg/dL <0.3 H [facility] Confirmed Alkaline phosphatase [Enzymatic activity/volume] in Serum or Plasma 170 U/L 40-129 H [facility] Aspartate aminotransferase [Enzymatic activity/volume] in Serum or Plasma 261 U/L <40 H [facility] Alanine aminotransferase [Enzymatic activity/volume] in Seru m or Plasma 58 U/L <41 H [facility] Protein [Mass/volume] in Serum or Plasma 6.9 g/dL 6.4-8.3 [facility] ID Date Data Source [id number] 04/27/2020 08:19:05 AM [facility] Value Range Interpretation Code Description Data Beronica rce(s) Supporting Document(s) Glucose [Mass/volume] in Capillary blood by Glucometer 72 mg/dL 70- 140 [facility] ID Date Data Source [id number] 04/27/2020 04:14:02 AM [facility] Value Range Interpretation Code Description Data Beronica rce(s) Supporting Document(s) Prothrombin time (PT) 26.1 s 12.5-14.9 H [facility] INR in Platelet poor plasma by Coagulation assay 2.34 [facility] Routine intensity oral anticoagulation I NR is typically 2.0-3.0. Target INR must be clinically individualized. ID Date Data Source [id number] 04/26/2020 09:54:49 PM [facility] Value Range Interpretation Code Description Data Beronica rce(s) Supporting Document(s) Glucose [Mass/volume] in Capillary blood by Glucometer 75 mg/dL 70- 140 [facility] ID Date Data Source [id number] 04/26/2020 08:48:12 PM [facility] Value Range Interpretation Code Description Data Beronica rce(s) Supporting Document(s) Lactate [Moles/volume] in Serum or Plasma 2.2 mmol/l 0.5-2.2 [facility] ID Date Data Source [id number] 04/26/2020 04:58:16 PM [facility] Value Range Interpretation Code Description Data Beronica rce(s) Supporting Document(s) Glucose [Mass/volume] in Capillary blood by Glucometer 77 mg/dL 70- 140 [facility] ID Date Data Source [id number] 04/26/2020 04:48:01 PM [facility] Value Range Interpretation Code Description Data Beronica rce(s) Supporting Document(s) Albumin [Mass/volume] in Serum or Plasma by Bromocresol green (BCG) dye binding method 2.6 g/dL 3.5-5.2 L [facility] Bilirubin.total [Mass/volume] in Serum or Plasma 14.8 mg/dL <1.2 H [facility] Bilirubin.direct [Mass/volume] in Serum or Plasma 9.8 mg/dL <0.3 H [facility] Alkaline phosphatase [Enzymatic activity/volume] in Serum or Plasma 180 U/L 40-129 H [facility] Aspartate aminotransferase [Enzymatic activity/volume] in Serum or Plasma 321 U/L <40 H [facility] Alanine aminotransferase [Enzymatic activity/volume] in Seru m or Plasma 63 U/L <41 H [facility] Protein [Mass/volume] in Serum or Plasma 7.2 g/dL 6.4-8.3 [facility] ID Date Data Source [id number] 04/26/2020 04:48:01 PM [facility] Name Value Range Interpretation Code Description Data Beronica rce(s) Supporting Document(s) Magnesium [Mass/volume] in Serum or Plasma 2.0 mg/dL 1.6-2.6 [facility] ID Date Data Source [id number] 04/26/2020 04:48:01 PM [facility] Name Value Range Interpretation Code Description Data Beronica rce(s) Supporting Document(s) Bicarbonate [Moles/volume] in Serum 27 mmol/L 22-29 [facility] Chloride [Moles/volume] in Serum or Plasma 96 mmol/L 98-107 L [facility] Creatinine [Mass/volume] in Serum or Plasma 0.58 mg/dL 0.70-1.20 L [facility] Icteric Glucose [Mass/volume] in Serum or Plasma 80 mg/dL 70-140 [facility] Potassium [Moles/volume] in Serum or Plasma 3.4 mmol/L 3.4-5.1 [facility] Sodium [Moles/volume] in Serum or Plasma 133 mmol/L 136-145 L [facility] Urea nitrogen [Mass/volume] in Serum or Plasma 2 mg/dL 6-20 L [facility] Anion gap 3 in Serum or Plasma 11 mmol/L 8-15 [facility] Osmolality of Serum or Plasma by calculation 271 mosm/kg 275-300 L [facility] Creatinine/Urea nitrogen [Mass Ratio] in Serum or Plasma 4 [facility] Calcium [Mass/volume] in Serum or Plasma 7.5 mg/dL 8.6-10.0 L [facility] Glomerular filtration rate/1.73 sq M pre dicted among non-blacks [Volume Rate/Area] in Serum or Plasma by Creatinine-based formula (MDRD) >6 0 [facility] Glomerular filtration rate/1.73 sq M pre dicted among blacks [Volume Rate/Area] in Serum or Plasma by Creatinine-based formula (MDRD) >60 [facility] ID Date Data Source [id number] 04/26/2020 05:40:59 PM EDT [facility] Name Value Range Interpretation Code Description Data Beronica rce(s) Supporting Document(s) Leukocytes [#/volume] in Blood by Automated count 4.7 10*3/uL 4-10 [facility] Erythrocytes [#/volume] in Blood by Automated count 3.03 10*6/uL 4.6- 6.1 L [facility] Hemoglobin [Mass/volume] in Blood 10.9 g/dL 13.5-18 L [facility] Hematocrit [Volume Fraction] of Blood by Automated count 31.4 % 4 1-53 L [facility] Erythrocyte mean corpuscular volume [Entitic volume] b y Automated count 103.4 fL 80-96 H [facility] Erythrocyte mean corpuscular hemoglobin [Entitic mass] by Automated count 36.0 pg 27-33 H [facility] Erythrocyte mean corpuscular hemoglobin concentration [Mass/volume] by Automated count 34.8 g/dL 32.0-36.0 [facility] Eryth[facility] distribution width [Ratio] by Automated count 16.1 % 11.5-14.5 H [facility] Platelets [#/volume] in Blood by Automated count 43 10*3/uL 150-400 L [facility] ConfirmedGIANT PLATELETS PRESENT Differential cell count method - Blood [facility] Neutrophils/100 leukocytes in Blood by Automated count 70 % [facility] Lymphocytes/100 leukocytes in Blood by Automated count 19 % [facility] Monocytes/100 leukocytes in Blood by Automated count 8 % [facility] Neutrophils [#/volume] in Blood by Automated count 3.29 10*3/uL 1.8-7 .0 [facility] Lymphocytes [#/volume] in Blood by Automated count 0.89 10*3/uL 1.2-4 .0 L [facility] Monocytes [#/volume] in Blood by Automated count 0.38 10*3/uL 0-0.8 [facility] Band form neutrophils/100 leukocytes in Blood by Manual count 3 % [facility] Band form neutrophils [#/volume] in Blood by Manual count 0.14 10*3 /uL 0-0.6 [facility] Macrocytes [Presence] in Blood by Light microscopy [facility] Anisocytosis [Presence] in Blood by Light microscopy [facility] Target cells [Presence] in Blood by Light [facility] ID Date Data Source [id number] 04/26/2020 04:35:01 PM [facility] Value Range Interpretation Code Description Data Beronica rce(s) Supporting Document(s) Lactate [Moles/volume] in Serum or Plasma 2.7 mmol/l 0.5-2.2 H [facility] ID Date Data Source [id number] 04/26/2020 12:29:13 PM [facility] Value Range Interpretation Code Description Data Beronica rce(s) Supporting Document(s) Glucose [Mass/volume] in Capillary blood by Glucometer 104 mg/dL 70- 140 [facility] ID Date Data Source [id number] 04/26/2020 12:03:10 PM [facility] Value Range Interpretation Code Description Data Beronica rce(s) Supporting Document(s) Prothrombin time (PT) 25.9 s 12.5-14.9 H [facility] INR in Platelet poor plasma by Coagulation assay 2.32 [facility] Routine intensity oral anticoagulation I NR is typically 2.0-3.0. Target INR must be clinically individualized. ID Date Data Source [id number] 04/26/2020 11:33:51 AM [facility] Value Range Interpretation Code Description Data Beronica rce(s) Supporting Document(s) Ammonia [Moles/volume] in Plasma 15 umol/L 16-60 L [facility] Icteric ID Date Data Source [id number] 04/26/2020 11:30:31 AM [facility] Value Range Interpretation Code Description Data Beronica rce(s) Supporting Document(s) Lactate [Moles/volume] in Serum or Plasma 3.6 mmol/l 0.5-2.2 H [facility] ID Date Data Source [id number] 04/26/2020 11:26:50 AM [facility] Value Range Interpretation Code Description Data Beronica rce(s) Supporting Document(s) Color of Urine [facility] Clarity of Urine [facility] Specific gravity of Urine by Refractometry automated 1.012 1.003 -1.030 [facility] pH of Urine by Automated test strip 6.0 5.0-8.0 [facility] Protein [Mass/volume] in Urine by Automated test strip Neg [facility] Glucose [Mass/volume] in Urine by Automated test strip Neg [facility] Ketones [Mass/volume] in Urine by Automated test strip Neg [facility] Bilirubin.total [Presence] in Urine by Automated test strip Negative [facility] False-positive results may occur with ce rtain food additives or medications. Hemoglobin [Presence] in Urine by Automated test strip Neg ative A [facility] Leukocyte esterase [Presence] in Urine by Automated test strip Negative [facility] Nitrite [Presence] in Urine by Automated test strip Negati ve [facility] Leukocytes [#/area] in Urine sediment by Automated count 5 /HPF 0 -5 [facility] Erythrocytes [#/area] in Urine sediment by Automated count 0-3 [facility] Bacteria [#/area] in Urine sediment by Automated count Non e A [facility] ID Date Data Source [id number] [facility] Code Description Data Beronica rce(s) Supporting Document(s) Potassium [Moles/volume] in Urine 27.7 mmol/L [facility] ID Date Data Source [id number] 04/26/2020 09:46:29 AM [facility] Value Range Interpretation Code Description Data Beronica rce(s) Supporting Document(s) Sodium [Moles/volume] in Urine 30 mmol/L [facility] ID Date Data Source [id number] 04/26/2020 11:53:12 AM [facility] Value Range Interpretation Code Description Data Beronica rce(s) Supporting Document(s) Osmolality of Urine 227 mosm/kg 300-1000 L [facility] ID Date Data Source [id number] 04/26/2020 08:38:10 AM [facility] Value Range Interpretation Code Description Data Beronica rce(s) Supporting Document(s) Glucose [Mass/volume] in Capillary blood by Glucometer 90 mg/dL 70- 140 [facility] ID Date Data Source [id number] 04/26/2020 08:10:25 AM [facility] Value Range Interpretation Code Description Data Beronica rce(s) Supporting Document(s) Leukocytes [#/volume] in Blood by Automated count 4.7 10*3/uL 4-10 [facility] Erythrocytes [#/volume] in Blood by Automated count 3.10 10*6/uL 4.6- 6.1 L [facility] Hemoglobin [Mass/volume] in Blood 11.3 g/dL 13.5-18 L [facility] Hematocrit [Volume Fraction] of Blood by Automated count 32.0 % 4 1-53 L [facility] Erythrocyte mean corpuscular volume [Entitic volume] b y Automated count 103.2 fL 80-96 H [facility] Erythrocyte mean corpuscular hemoglobin [Entitic mass] by Automated count 36.4 pg 27-33 H [facility] Erythrocyte mean corpuscular hemoglobin concentration [Mass/volume] by Automated count 35.2 g/dL 32.0-36.0 [facility] E[facility] distribution width [Ratio] by Automated count 16.0 % 11.5-14.5 H [facility] Platelets [#/volume] in Blood by Automated count 45 10*3/uL 150-400 L [facility] Differential cell count method - Blood [facility] Neutrophils/100 leukocytes in Blood by Automated count 63 % [facility] Lymphocytes/100 leukocytes in Blood by Automated count 26 % [facility] Monocytes/100 leukocytes in Blood by Automated count 9 % [facility] Eosinophils/100 leukocytes in Blood by Automated count 1 % [facility] Basophils/100 leukocytes in Blood by Automated count 1 % [facility] Neutrophils [#/volume] in Blood by Automated count 2.97 10*3/uL 1.8-7 .0 [facility] Lymphocytes [#/volume] in Blood by Automated count 1.23 10*3/uL 1.2-4 .0 [facility] Monocytes [#/volume] in Blood by Automated count 0.44 10*3/uL 0-0.8 [facility] Eosinophils [#/volume] in Blood by Automated count 0.02 10*3/uL 0-0.5 [facility] Basophils [#/volume] in Blood by Automated count 0.03 10*3/uL 0-0.2 [facility] Nucleated erythrocytes/100 leukocytes [Ratio] in Blood by Automated count 0 /100{WBCs} 0-0 [facility] ID Date Data Source [id number] 04/26/2020 08:38:01 AM [facility] Name Value Range Interpretation Code Description Data Beronica rce(s) Supporting Document(s) Albumin [Mass/volume] in Serum or Plasma by Bromocresol green (BCG) dye binding method 2.6 g/dL 3.5-5.2 [facility] Bil[facility].total [Mass/volume] in Serum or Plasma 14.1 mg/dL <1.2 H [facility] Bilirubin.direct [Mass/volume] in Serum or Plasma 9.8 mg/dL <0.3 H [facility] Alkaline phosphatase [Enzymatic activity/volume] in Serum or Plasma 193 U/L 40-129 H [facility] Aspartate aminotransferase [Enzymatic activity/volume] in Serum or Plasma 349 U/L <40 H [facility] Alanine aminotransferase [Enzymatic activity/volume] in Seru m or Plasma 72 U/L <41 H [facility] Protein [Mass/volume] in Serum or Plasma 7.3 g/dL 6.4-8.3 [facility] ID Date Data Source [id number] 04/26/2020 08:38:01 [facility] Name Value Range Interpretation Code Description Data Beronica rce(s) Supporting Document(s) Bicarbonate [Moles/volume] in Serum 26 mmol/L 22-29 [facility] Chloride [Moles/volume] in Serum or Plasma 92 mmol/L 98-107 L [facility] Creatinine [Mass/volume] in Serum or Plasma 0.55 mg/dL 0.70-1.20 L [facility] Icteric Glucose [Mass/volume] in Serum or Plasma 88 mg/dL 70-140 [facility] Potassium [Moles/volume] in Serum or Plasma 4.2 mmol/L 3.4-5.1 [facility] Sodium [Moles/volume] in Serum or Plasma 129 mmol/L 136-145 L [facility] Urea nitrogen [Mass/volume] in Serum or Plasma 2 mg/dL 6-20 L [facility] Anion gap 3 in Serum or Plasma 11 mmol/L 8-15 [facility] Osmolality of Serum or Plasma by calculation 264 mosm/kg 275-300 L [facility] Creatinine/Urea nitrogen [Mass Ratio] in Serum or Plasma 4 [facility] Calcium [Mass/volume] in Serum or Plasma 7.9 mg/dL 8.6-10.0 L [facility] Glomerular filtration rate/1.73 sq M pre dicted among non-blacks [Volume Rate/Area] in Serum or Plasma by Creatinine-based formula (MDRD) >6 0 [facility] Glomerular filtration rate/1.73 sq M pre dicted among blacks [Volume Rate/Area] in Serum or Plasma by Creatinine-based formula (MDRD) >60 [facility] ID Date Data Source [id number] 04/26/2020 08:38:01 AM EDT [facility] Name Value Range Interpretation Code Description Data Beronica rce(s) Supporting Document(s) Magnesium [Mass/volume] in Serum or Plasma 1.5 mg/dL 1.6-2.6 L [facility] ID Date Data Source [id number] 04/26/2020 07:25:58 AM EDT [facility] Name Value Range Interpretation Code Description Data Beronica rce(s) Supporting Document(s) [facility] KMHHUx6mZeMVUvZts7IwRkDeGJPuSG7qhua6T6D8aSFqT6IprKYeu9ipG4HyL8ObLUSmUSCXAO6JdWAv jb2 [file] FasQor/shoe packer/shoe packer/jsYfhfzqE3HggDjFx9NRp/MOHyPU7JMv4AAnpGyy7Zm0NTyZXa+6txtvG73/S5mH4 sxu8WQA50a/qjbDyFq2mnRlzTXF0JBPeD+WQKl8tpe 9C+optical goods [file] opyuljbX8U8pbpf0nlo9eei2GibpqZwsWbcnk9Q2+b nx6o0CAAyXBO+ebHAIJr9lxt9XVyXfwVfxnjtmp+ZDrl+mzRJyb3OtGiwZBu6cw8f2E304hVc6pBCy9g Iw0IrSsQMUOQcxhj6IQgCaI2wrBSXtqWAehuLP3E/6aT2xWivPXbIZ89EDweDqPf0Mip/iZT8v+83C2O /8bz84i2EQPbg7cdz8z353K8gR44MtkIHvYKwyxqME RxNxMPmMk3jIAafwJI8ygNW70lvgE4HAOm+1o3Hdzgrr3lpcTcAlA3HpkHshLowfnYswcrZwM4yJIemj uRpdRsoL7hW2AwQ0aTR87g4WrjhwZHanjlxho6haTZtkmKJpIV3Difs0tWirSSuwhoFNRfS8axY74kw8 6N3eeR+5qme6TZ31pzmvfsk8IiUN11TbOrayvH/bi9 7tV+8jatVeITlwibRX1YHw3RU4RE1woof+Md1VgsS8pOJkPS2X+ae7TMdfnmY/26/ewTzJnug9IcTU7I s8vHnCxATs+9844fPyhv/tf/4n59stty9vem2ieE/D/NTLM+u9BoKMXh+z72mSC56vP8W+SuX+TfZTKe fphn/aivoenSaHcihr89+/clL1y1q+xx+in6CXWp3f bA3v5Hkq6sxm71sJ8b+dCoFb7riM7ek1xGcSSzQp8Nqj81l1huTFbAVy3LzfbsRbOWMKajr5L7X/Igcj oolUU2dmuAdSOTQhG9qoNjOPOns/9KgmG2x/5xDVJuAGRcPXwh1t1Jm49x+RESORT HOUSEKEEPER+GjI2FOcEO4tMZHphbh [file] Aj91QCl96mVGG3tjg1HJ69I/+1s3W1/dv+k41d/RW11q14h098af1ujp4X19c3166/6meZP69Rrozxfs DzqedDzpeNHxovtuuu9+j59sA9/tsOhL2XEODu3dwM bA9CUQE/45eza7amqmbywisDuzsNBcgVKJl3mImvp+1d+IWtZ4d72FDl0e+VCvp79bRx3lCB2ngCvt6E 6D3nfQ+l8401OtW+v5Q96owHzm2T7xy00u5K3sQn2evy/w91d/d+vv0RIubzcRA/52liJXkawuIswwa7 c9Guy5vfxhTocxnMndfaTrOYCEC1dQ0UdzzQQgf4/K cGu71Mix9162sqRYILyjlRAOSOrowIf4apE332k0Zn37Ri869L5fxIxriKgRtHe5TW04/sULu/XV6uPl 39+bju/nDMDV1U+/67S+un/T8fndt/UV/l50/Bxqr8yT+7a+al/Dztw5tYqsZ3GyjIYrHGcNF27RLmk2 qo/vh/7+yoN//dFufYW/Hp7bsEzZ9XkJEd9ynUyopB Fxp+XAl4MOBo2BVl2oodRE/VpWsugF43u3ph4S+gp/f/MHuy4bCEa+r5+Pvrp/r++7xPq+Xzm52kp3Eg ihev754/jqY+ur+qb7fhh6VwqhU18FM/49O/zt8Ip69u629Vo3lw9UvS966iK7x2dexW7AYLE34u/93c fP+308v4ge//g2DS66PbU14tfac1yg2wME5na6F6u+ GuIrsk07RdggBk0/ci9253ib67vYr29n9104lbf4z+dbXzn+/voLGr/mIY87HK9Cx74+p6g/KuqPivqj gq09p00SvFo0An443knft/kd37QSCbf+4EvBgdPeHsdlcka0D/W/pK/4EsrFtowMOjiKo9g/qbJ79NKt Dwr0N35KMyfTjj1DF5kl/am2vL0sd8/Nuñez/PxQXtzPn [file] Edgardo+4YcR1Erux1nAX7gr++4O8js4DvqWW5UB586nFV/3fsSi+m5P+6X/zHB54s7VrT7s2fnPy2gxxlU7 pqiw3ogrn12oAQfzMHGmip68K644dN8E+0TKMj2Rub8x0zXdq+Y65hgtVZaEmh339A4/u0mhwwljR/7K 4AO6Q8Nmzll3y3XXUR8HQodavJt5s004fqz32P0fuG H8ozFhm9/91xCXra197/jlwbOcXDp/McRlDf4SqOcXE+j180N0bNIrxP8pnXFtnJB0yqvjrs89VKw3Bj zMWxsbp2i+QT0vIkPSlI0+TwKED2oIrN3VdwkmWsuzH7RC0i9AUauf3mzHKtoquV2l29uiReeIyVHy8A ilwOHULPJQNNdQUWXFyAywvBNY1kmCOX9QseBPYwpa xR2Z7p4HoZpuewvO3PdA6yuiDInPg0LGeGDh5+oIO7yVn0OcNLuIJtU+yLyxsCECxzAo9CxcdrOWcVQb DIRECTOR OF REGULATORY AFFAIRS+yJz7I/ZorBOzhr9Xe3dtnrQry9lZRhkVH3ZEjkOp567HlX8oW5l8+1mk+FiqI64pgURd17a06i+t [file] +W7uQ6129QkhF3/57TMOP9862iuuiYBviP7d+KN3e7 WraIzovbMo73/68k4Sc70//zqWD0y68Ryt/gvjZ3Bb62njewvnk9++/pfayqS2G80+/larsen/k/g1T832+O DE58c3uHzn0q/5jr47mbveP8p/9fbF53//D862ogJgG/z0p3neE68whx+/eX/T919+9/bhdx++/OrDL7 /64q/742g4vx5O59/+4V/++Marichuy/ff/Pb//t/7x9/q9/ +OG//9sf/jei5d51hv/+4Ye33//d2z/+zYvV9x//6m6IC7eaB5vwuW3Co7t/7zJ26Bz/gS3OsxEZzlR/ 9Kdf/Aqrt2o4ASz7/KffAR+vVYMHt+vX/xfgcXgecP/b9EnI1PUe3B77z9/LDEsRltyrnly3vuAh4Du0 /t5Q3/Eu9DR6c22/+Pj9v3z/l7+y0ixn7n0z92m3+P brD7/6r19+++G7L3/0rU+Gnv6/yeKsmj4dns76ahnl60f5Y10xqrluYfzhKfLl2b4TwdLitj/Df/zd21 /+8B/f/+r279NpT1xXua1vH//+88vnfXV71v9v9LwWj3/84T++/8v/+sO//RTh7wS534e/zJ3G4q+8+4 01l6zl9p38v94/+x///MNPb3/ftA3g3huRL/uHT7/4 h0//xG+9LwU+yO0SdeHEwu8EX5mHe6ec/nQxp1atiB3UE8/qxr79+xgml0f9b//+/t//y908ltd2yc2w D7//+SvJzHv/c3n7P3/5x7/9ya/v7/CbP/wa3y4Mpvp7G/5qw4DyEp4++c9/+om90MjGD+53/erP//SZ fIzusrSBMG62w+//6V9/+OM/gvxmp48qkeI4/uS3h3 Ejf/vv//ZhGE44o32/+fe/gkq07ko//NQzl5++3a1chhEJ78+++4zzyWuO+v//7TIJ8QzUuDquJ/7792 /y9ud/vwoDtYHjlQc8r7506q6fWiUc4st/+vTZ2/Ig4N6d8cRZXi2/7aZG80R2LiLyM7Kl6hKfg9/57d hmk948PB86uYt4ls6W9vLHBekwmiCdiKQpSD3JXY1q h7LsRsB3XLUep9BhBRatLYi9tPFcOFjyvkDas6NudykwQ0Ige1ZoCnNwGADcSoPqDsj4GKIjZeX6aBHi AsSjAICjO8IgBKDrFqB0NaXoBBHNTC2QQYIfjkKeLxRqHWJ+IiZoTR4gvuyzFWFus3ZaQWdoNIqsYIUc G6L2zTbnFNYcN3IcpN12SJZsN3WglyO1GQL4VPJvHu AvTGFzdCAxOSAwIFI+KkKbNN3hwtdqZCMrw2ZjZJzpXVQ6oO6jJTnKEERETPkYNBfyUtJ8w56hqhFJCB GcHUFvDI8NmmUyrFpzyeSrdFIzIWL9TiRlZOZ9QCMnOiI1DXNSUAIcVYDbCDPwMQQcM2TpcAlsZStMYX PCPAmNIRclYhUpg3F6WVHnddZCENGYAPbVWDSEV78P BYBtNOv1RZErIBZgX2XoxeEztODpPFVFGYyaSilrHRFtrE6grXbbJ1ShKWJ2x3DwNI5UW4MvWMTgMPLU AYO3x0GxQDNlurwpgqbsNgTzZZNjWHDtTEBhCZ2Qpb6isSOqgtUxJIZXFRvlBbznRR2hsOcdguhxY8Zl aWVzKSA+FhYvIR0dog7+LlGzWSBpNwk2EPZrSLknSO QzYPKiUUNgD7wpCWIxOyQcAVNgNvAqMF1Dw7KghQOhIz8alpJoXxaEaGKzJsheYXFeZZLwUFIyEvCZOZ InSVJfOZJcQDQ6SNYqYLMoAHggSEElLDQ9UjrjYCXcMPHrJM7rMxZnKNDwZcJbHgyjXOHpAXYdipMWDO IqBUX1ZDBgOvBsKTShZKArPOkvZJHtEWNtWCFeTVY3 TKB7OKXdQaOkCYGpIHVoZYYsLKKmEGFbvpQDGFQeAOTvEPN7HDSdVHReHDMlDLqfQRUgIPEjSFolWOWt RWGtEZ8zTrWwWRXqAVQgSIqiZTIxCDOcxdUVOZZiJVFrTLQwGGSoVMZdBYAwTAlrNFIxDRTdJCJlOIPw UVAwDY0uMnBuODYcRSS5RQZrLSHdYXGzbhLULDAgRL ApKIp2WXUqZLMiATRwNYulCZQdGEAuXUC2VFNvRQOlVD5vJbTyORYjQDU1KzIvHGHvZMQodtLCCTZcYD OcYHK3RlDlKGUlBALpNHxlOPZgADKiPJhsENIgXSHmYC2iUeJyJPVzYPPbPYkgSTCyNQEtpmLAOMWqFW DrFEHjYwNwJAOqTAPtDTuzNKMhWUMaQKU5MYNqBONg QN6oCxLaDXOcWFZ1AJayTJDgNBKqqvJLKKWfLVKsAAitADUmKGGfATZlSTonRNAwBGDoJZR5HDJiXIAk HS2oVyGiWDWiIAGhWRRhAgX7FiLvEzZNlKDvqByteql6IQhyU9k4FSRcHKhyIU7zbcDeDLNeHpciTv6x lNI9REAsTtgSQu6Ua3SfebP9lsBeNlQ0ZRH7XnJeNH6O ID Date Data Source [id number] 04/25/2020 08:50:41 PM EDT [facility] Name Value Range Interpretation Code Description Data Beronica rce(s) Supporting Document(s) Glucose [Mass/volume] in Capillary blood by Glucometer 131 mg/dL 70- 140 [facility] ID Date Data Source [id number] [facility] Name Value Range Interpretation Code Description Data Beronica rce(s) Supporting Document(s) Leukocytes [#/volume] in Blood by Automated count 3.9 10*3/uL 4-10 L [facility] Erythrocytes [#/volume] in Blood by Automated count 3.16 10*6/uL 4.6- 6.1 L [facility] Hemoglobin [Mass/volume] in Blood 11.3 g/dL 13.5-18 L [facility] Hematocrit [Volume Fraction] of Blood by Automated count 32.4 % 4 1-53 L [facility] Erythrocyte mean corpuscular volume [Entitic volume] b y Automated count 102.7 fL 80-96 H [facility] Erythrocyte mean corpuscular hemoglobin [Entitic mass] by Automated count 35.9 pg 27-33 H [facility] Erythrocyte mean corpuscular hemoglobin concentration [Mass/volume] by Automated count 34.9 g/dL 32.0-36.0 [facility] Erythrocyte distribution width [Ratio] by Automated count 16.1 % 11.5-14.5 H [facility] Platelets [#/volume] in Blood by Automated count 52 10*3/uL 150-400 L [facility] Differential cell count method - Blood [facility] Neutrophils/100 leukocytes in Blood by Automated count 71 % [facility] Lymphocytes/100 leukocytes in Blood by Automated count 22 % [facility] Monocytes/100 leukocytes in Blood by Automated count 7 % [facility] Eosinophils/100 leukocytes in Blood by Automated count 0 % [facility] Basophils/100 leukocytes in Blood by Automated count 0 % [facility] Neutrophils [#/volume] in Blood by Automated count 2.72 10*3/uL 1.8-7 .0 [facility] Lymphocytes [#/volume] in Blood by Automated count 0.86 10*3/uL 1.2-4 .0 L [facility] Monocytes [#/volume] in Blood by Automated count 0.28 10*3/uL 0-0.8 [facility] Eosinophils [#/volume] in Blood by Automated count 0.01 10*3/uL 0-0.5 [facility] Basophils [#/volume] in Blood by Automated count 0.02 10*3/uL 0-0.2 [facility] Nucleated erythrocytes/100 leukocytes [Ratio] in Blood by Automated count 0 /100{WBCs} 0-0 [facility] ID Date Data Source [id number] 04/25/2020 06:07:27 PM EDT [facility] Name Value Range Interpretation Code Description Data Beronica rce(s) Supporting Document(s) Albumin [Mass/volume] in Serum or Plasma by Bromocresol green (BCG) dye binding method 2.6 g/dL 3.5-5.2 L [facility] Bilirubin.total [Mass/volume] in Serum or Plasma 13.5 mg/dL <1.2 H [facility] Bilirubin.direct [Mass/volume] in Serum or Plasma 9.4 mg/dL <0.3 H [facility] Alkaline phosphatase [Enzymatic activity/volume] in Serum or Plasma 200 U/L 40-129 H [facility] Aspartate aminotransferase [Enzymatic activity/volume] in Serum or Plasma 375 U/L <40 H [facility] Alanine aminotransferase [Enzymatic activity/volume] in Seru m or Plasma 76 U/L <41 H [facility] Protein [Mass/volume] in Serum or Plasma 7.5 g/dL 6.4-8.3 [facility] ID Date Data Source [id number] 04/25/2020 06:07:27 PM [facility] Name Value Range Interpretation Code Description Data Beronica rce(s) Supporting Document(s) Bicarbonate [Moles/volume] in Serum 23 mmol/L 22-29 [facility] Chloride [Moles/volume] in Serum or Plasma 89 mmol/L 98-107 L [facility] Creatinine [Mass/volume] in Serum or Plasma 0.41 mg/dL 0.70-1.20 [facility] Icteric Glucose [Mass/volume] in Serum or Plasma 112 mg/dL 70-140 [facility] Potassium [Moles/volume] in Serum or Plasma 4.0 mmol/L 3.4-5.1 [facility] Sodium [Moles/volume] in Serum or Plasma 126 mmol/L 136-145 L [facility] Urea nitrogen [Mass/volume] in Serum or Plasma 2 mg/dL 6-20 [facility] Anion gap 3 in Serum or Plasma 14 mmol/L 8-15 [facility] Osmolality of Serum or Plasma by calculation 259 mosm/kg 275-300 L [facility] Creatinine/Urea nitrogen [Mass Ratio] in Serum or Plasma 5 [facility] Calcium [Mass/volume] in Serum or Plasma 7.7 mg/dL 8.6-10.0 L [facility] Glomerular filtration rate/1.73 sq M pre dicted among non-blacks [Volume Rate/Area] in Serum or Plasma by Creatinine-based formula (MDRD) >6 0 [facility] Glomerular filtration rate/1.73 sq M pre dicted among blacks [Volume Rate/Area] in Serum or Plasma by Creatinine-based formula (MDRD) >60 [facility] ID Date Data Source [id number] 04/25/2020 06:07:27 PM [facility] Name Value Range Interpretation Code Description Data Beronica rce(s) Supporting Document(s) Magnesium [Mass/volume] in Serum or Plasma 1.5 mg/dL 1.6-2.6 L [facility] ID Date Data Source [id number] 04/25/2020 06:00:25 PM [facility] Name Value Range Interpretation Code Description Data Beronica rce(s) Supporting Document(s) Lactate [Moles/volume] in Serum or Plasma 2.4 mmol/l 0.5-2.2 H [facility] ID Date Data Source [id number] 04/25/2020 05:17:39 PM [facility] Name Value Range Interpretation Code Description Data Beronica rce(s) Supporting Document(s) Glucose [Mass/volume] in Capillary blood by Glucometer 92 mg/dL 70- 140 [facility] ID Date Data Source [id number] 04/25/2020 12:14:37 PM [facility] Value Range Interpretation Code Description Data Beronica rce(s) Supporting Document(s) Glucose [Mass/volume] in Capillary blood by Glucometer 89 mg/dL 70- 140 [facility] ID Date Data Source [id number] 04/30/2020 12:14:10 PM [facility] Service Cmnt XXX-Imp : Specimen source n ot given.Microorganism XXX Cult : No growth 5 days Name Value Range Interpretation Code Description Data Beronica rce(s) Supporting Document(s) ID Date Data Source [id number] 04/25/2020 10:49:36 AM [facility] Value Range Interpretation Code Description Data Beronica rce(s) Supporting Document(s) Gamma glutamyl transferase [Enzymatic activity/volume] in Serum or Plasma 457 U/L 8-61 H [facility] ID Date Data Source [id number] 04/25/2020 08:24:33 AM [facility] Value Range Interpretation Code Description Data Beronica rce(s) Supporting Document(s) Glucose [Mass/volume] in Capillary blood by Glucometer 76 mg/dL 70- 140 [facility] ID Date Data Source [id number] 04/25/2020 07:25:[address] [facility] CT ABDOMEN PELVIS WITH CONTRAST [id number] AL RESULTInterpreted by:Tahmina Girard, MDPROCEDURE INFORMATION: Exam: CT Abdomen And Pelvis With [...] clinical indication); or iterative reconstruction. Contrast material: DRNI120; Contrast volume: 100 ml; Contrast route: INTRAVENOUS [...] Name Value Range Interpretation Code Description Data [facility] rce(s) Supporting Document(s) ID Date Data Source [id number] 04/25/2020 07:22:27 AM [facility] Name Value Range Interpretation Code Description Data [facility](s) Supporting Document(s) History and Physical [facility] TEKXQz9sZdWDKdSc03/MRRhjKOTep8PfLTxdPNi7VQkkPTWyX3RkBKU2eS8rTOU0CCfXZuZrLiApLKN0 [facility] FcSpnWJbUwNVXpXmaQGlBkAGokGyxvdPDzSN2EqTY9BGHnF12lCVQwSNCiK6ZqUNC6UTo+Ez0FASTrxX YeTN8UQepZ4N3Cj4lSPF5REd2ZTGYrdpiyEVF22ZMFokiLKNlPLSt8KjiBrOTRdrnUU//6gAAhqFvwZz PfuArS6Gt0W2S3w0up2Huvsp/vT7UV+o7jqOV/t/8M S7IDBseiv5Qiq707gc61N7wYtRIkqMvtC0X/uvr+B89OVO+Ho1VU6Ys0+gZBJAJwvrVIxA1Eb591Scb/ DV3WM8Gma8MyJRiKdICEMvp9tj7KapBvVsXdLx4LGM/LZWXw63zX914BHxXP4bKCAYc5/SNCwX4+TgEe 3AYJ2XNX3AduIOQsZAePb0K+BQMKagq+f5zBz0/Uu9 NpkS7R33rfyFo/XFCKxlAS6MpAah9XUJcZylegBgBb50egp5GSl1YbeXg7U3ykQjumvK1PsH1X5J0c9t zu+SdIbuLcIsyExao0zgVYoghRvuE+3ECEKTTAf4xOlXfcTgzUZas389gg6rtgjbm32DnpnzU4d2o8l/ 8EGcAzNGVAPZVzq3mUv4JLJXKIh1P/ULSk2Qo3ZWGI [file] ICAgICAgICAgICAgICAgICAgICAgICAgICAgICAgIC AgICAgICAgICAgICAgICAgICAgICAgICAgICAgICAgICAgICAgICAgICAgICANCiAgICAgICAgICAgIC AgICAgICAgICAgICAgICAgICAgICAgICAgICAgICAgICAgICAgICAgICAgICAgICAgICAgICAgICAgIC AgICAgICAgICAgICAgICAgICAgICAgICAgICANCiAg ICAgICAgICAgICAgICAgICAgICAgICAgICAgICAgICAgICAgICAgICAgICAgICAgICAgICAgICAgICAg ICAgICAgICAgICAgICAgICAgICAgICAgICAgICAgICAgICAgICANCiAgICAgICAgICAgICAgICAgICAg ICAgICAgICAgICAgICAgICAgICAgICAgICAgICAgIC AgICAgICAgICAgICAgICAgICAgICAgICAgICAgICAgICAgICAgICAgICAgICAgICANCiAgICAgICAgIC AgICAgICAgICAgICAgICAgICAgICAgICAgICAgICAgICAgICAgICAgICAgICAgICAgICAgICAgICAgIC AgICAgICAgICAgICAgICAgICAgICAgICAgICAgICAN CiAgICAgICAgICAgICAgICAgICAgICAgICAgICAgICAgICAgICAgICAgICAgICAgICAgICAgICAgICAg ICAgICAgICAgICAgICAgICAgICAgICAgICAgICAgICAgICAgICAgICANCiAgICAgICAgICAgICAgICAg ICAgICAgICAgICAgICAgICAgICAgICAgICAgICAgIC AgICAgICAgICAgICAgICAgICAgICAgICAgICAgICAgICAgICAgICAgICAgICAgICAgICANCiAgICAgIC AgICAgICAgICAgICAgICAgICAgICAgICAgICAgICAgICAgICAgICAgICAgICAgICAgICAgICAgICAgIC AgICAgICAgICAgICAgICAgICAgICAgICAgICAgICAg ICANCiAgICAgICAgICAgICAgICAgICAgICAgICAgICAgICAgICAgICAgICAgICAgICAgICAgICAgICAg ICAgICAgICAgICAgICAgICAgICAgICAgICAgICAgICAgICAgICAgICAgICANCiAgICAgICAgICAgICAg ICAgICAgICAgICAgICAgICAgICAgICAgICAgICAgIC AgICAgICAgICAgICAgICAgICAgICAgICAgICAgICAgICAgICAgICAgICAgICAgICAgICAgICANCjw/eH YjD9bsfOTfbaE1Z1hoOm2JPs6TQG1xx1UhBCYsGQjhyxYsPriXEfTrPNRdEccGZvt8MNigCZ1MzHXfP7 XkF5DcXQdsGR5VATAsWIQgfZGyCXTrVMFuCaV9XSIc THwtOL9NiAKdIUftFSDkTOOsMyDuFGPeHNEcDXCyLRQpIOALYRWfWWBlNlYnYESqKMJeAL4CJDCxI383 dsPqDn6LTl6JSwZbTQ6xrn0TMeXoLRDyTlpCTih5SVljOG3AtICimOByTnTtAXORTqJrG9hor5OjEpTs LMUDIJfzIJ1Ik7DupOBrCZi+Oz8NXJ9vc6LvSQcfHv QfAD8ryi2FFDoEBvKgG0NdsGbiSCpxEOBurBTScWUtKNpnRBepkBLiuVGrNM2AREJ7CSzrBG2zKDLyPM ZwBuN5HFTIGW5TICZwFWVxcLZbRAKvHNNQFD7SCDncRVQ0KVOwcoAxeRIpVAqcKG9AUFZbxdXfMdNuQO BSDQo+Sz5DYI2ij9UwCErlCHFjTU5zmf5ROEyZUdCq G9B6dZDaP6L5SJqqHf3ZQCYaVGRrVaOhYOBMILhuIG6MPA9mxrE1HO9PnTLxTYMuNWVctIFnEAs7J82w sSOeVAhpRO8FMBL+Claudia+Ds0IKYArAOMrKFZtDpGnBYZLKnUmE0OkS9LAd0SoT8BwLH75tGaannDkBGuz DN5LLO3rYFBaVJHFDQ1UfIKcdP5ubtLpFoAuALDOBv NyB59tyUYoIYYnJRZePPYtXg6ZXLMvX3BdvzGkcExixfZoMZWsWBCKNE3LNIraibOqsCTiwEfrJT94mS mvRH6HVy7XJjTlJW8gva9JdXIzCf2OLZXfGQ0IOUUcCTLzVNQbMCL7DTGvUqWxMNmfJFEiSWCyNSN7DD JwWZJqON2QFcSuBEAePuC8OPLpOJWoWSQjgo0EEXLk YYGtUtFhJdOaYKBkHNVuTPesEKHyJAAhRKE0FTFcSDPfYZ7AOuXyYHFtFJRrAmscHNRsDMQera6FUNVy EMEnFYZsSJMwSAPmNWUdRSeyQORcZIN3Zum4KRDvIERqCS1NZqFfPHZfVUj2HBXjSSZhWPHraz2HKRKe MDAxMDYxNyAwMDAwMCBuDQowMDAwMDEwODIxIDAwMD KjQY2DNrDsXHJlQNLbUUaeBJZwZENhtc9TDQVjQAHeHWN4WZXxRCTvZXZcFBpiWFLmCPO3UZWcAIPkIL JhNR3LIwOuJEEfLEjxFdqgLRZyPAGlii9MRHAjVMVbWFs2QrWxLROpYUFhUKhmQTUcRSI7XQZnNRTpPC GfJZ9ALpMsUWYgDvFkFiJdWPNrYCLqad8KHYDyZJLu EGUuZHObTHJcXWFkBCqkCMOrNQBcWMQvYGKtLOUsVN2YZuRfKQThUjS7AxDvYPKrXIGnji0IQQKyVHXy NPO1DPYaXKHiQQXjQQckMUIgHSUjYNFwCAAzBNQmRE6ZMfMsUZDaEqNyUjqtEYZjIFInbi9ZVDCmMFPx TwY4FAIqBLYwHDXvMAdcTISkZZVoWgG3RITiYPYvXA 1LTfSdWNDwPwZbOCZxLQMsTJBlhk6YCLGpRMUvJOD8GHQjNOKnDQWvRAnfUSLqWFY9ZNtfKFVeBRVwEO 2BFoQbAFBnFyEpODZdWHRmHYEgsv7NYDZcEATuKJP7HJAwLEMlFOXqGYpfFPJdHTN4LSu5SKKfDPSiEK 6ZZgPjPOTjNszxNTtfRHMvRTBfws8YQYQkVGXgKzYc SVNaVIVqUDQpJIqvMDPqQTA4ACA1GMNmOKQiQC0PJbXpTUwqORBENya1PGtsM5a0EHZbRP0ZR5Uab5Od HqRoYAKCBKdyTT6ptgMsMMBaNq3QS8vWEpzlXZNxGshqUumvY7Y9ZwSqOWUzKcK6SfI0AxPhJWbvVf0w PEFhFBThXLTtIKU4QxvqLAU0ZWTsWnopRGrhCUArNm CbZrEvGX7SZj8BOcI3UWT6qIKpSq8WNqk8XNEFTjMyIV9OGRd= ID Date Data Source [id number] 04/25/2020 06:39:34 AM EDT [facility] XR CHEST FRONTAL ONLY [id number] RESULTI nterpreted by:Tahmina Girard MDPROCEDURE INFORMATION: Exam: XR Chest, 1 View Exam [...] rce(s) Supporting Document(s) ID Date Data Source [id number] 04/25/2020 09:32:15 AM [facility] Value Range Interpretation Code Description Data Beronica rce(s) Supporting Document(s) Hepatitis A virus IgM Ab [Presence] in Serum or Plasma by Im munoassay Non Reactive [facility] No acute infection, susceptible to infec tion. Hepatitis B virus core IgM Ab [Presence] in Serum or Plasma by Immunoassay [facility] Reactive [facility] IgM antibodies to HBc were not detected, does not exclude the possibility of exposure to HBV. Hepatitis C virus Ab [Presence] in Serum or Plasma by Immuno assay Non Reactive [facility] No serological evidence of active infect ion. If recent exposure is suspected, test for HCV RNA. Hepatitis B virus surface Ag [Presence] in Serum or Plasma b y Immunoassay Non Reactive [facility] No active or previous infection. Suscept ible to infection. ID Date Data Source [id number] 04/25/2020 07:04:32 AM [facility] Name Value Range Interpretation Code Description Data Beronica rce(s) Supporting Document(s) Fibrin D-dimer FEU [Mass/volume] in Platelet poor plas ma by Immunoassay 12.78 ug/mL{FEU} <0.50 H [facility] Confirmed ID Date Data Source [id number] 04/25/2020 07:04:32 AM [facility] Value Range Interpretation Code Description Data Beronica rce(s) Supporting Document(s) Fibrinogen [Mass/volume] in Platelet poor plasma by Coagulat ion assay 245 mg/dl 190-450 [facility] ID Date Data Source [id number] 04/25/2020 07:04:32 AM [facility] Value Range Interpretation Code Description Data Beronica rce(s) Supporting Document(s) aPTT in Platelet poor plasma by Coagulation assay 62.5 s 24.0-33. 0 H [facility] ID Date Data Source [id number] 04/30/2020 12:14:10 PM [facility] Service Cmnt XXX-Imp : RT ACMicroorganis m XXX Cult : No growth 5 days Name Value Range Interpretation Code Description Data Beronica rce(s) Supporting Document(s) ID Date Data Source [id number] 04/30/2020 12:14:10 PM [facility] Service Cmnt XXX-Imp : LT HANDMicroorgan ism XXX Cult : No growth 5 days Name Value Range Interpretation Code Description Data Beronica rce(s) Supporting Document(s) ID Date Data Source [id number] 04/25/2020 04:45:07 AM [facility] Value Range Interpretation Code Description Data Beronica rce(s) Supporting Document(s) Prothrombin time (PT) 22.1 s 12.5-14.9 H [facility] INR in Platelet poor plasma by Coagulation assay 1.90 [facility] Routine intensity oral anticoagulation I NR is typically 2.0-3.0. Target INR must be clinically individualized. ID Date Data Source [id number] 04/25/2020 04:52:33 AM [facility] Value Range Interpretation Code Description Data Beronica rce(s) Supporting Document(s) Lipase [Enzymatic activity/volume] in Serum or Plasma 83 U/L 13-6 0 H [facility] ID Date Data Source [id number] 04/25/2020 04:52:33 AM [facility] Value Range Interpretation Code Description Data Beornica rce(s) Supporting Document(s) Albumin [Mass/volume] in Serum or Plasma by Bromocresol green (BCG) dye binding method 2.9 g/dL 3.5-5.[address] [facility] al Bilirubin.total [Mass/volume] in Serum or Plasma 13.5 mg/dL <1.2 H [facility] Calcium [Mass/volume] in Serum or Plasma 7.9 mg/dL 8.6-10.0 L [facility] Chloride [Moles/volume] in Serum or Plasma 93 mmol/L 98-107 L [facility] Creatinine [Mass/volume] in Serum or Plasma 0.34 mg/dL 0.70-1.20 L [facility] Icteric Glucose [Mass/volume] in Serum or Plasma 85 mg/dL 70-140 [facility] Alkaline phosphatase [Enzymatic activity/volume] in Serum or Plasma 215 U/L 40-129 H [facility] Potassium [Moles/volume] in Serum or Plasma 3.3 mmol/L 3.4-5.1 L [facility] Hemolyzed Protein [Mass/volume] in Serum or Plasma 8.2 g/dL 6.4-8.3 [facility] Sodium [Moles/volume] in Serum or Plasma 133 mmol/L 136-145 L [facility] Aspartate aminotransferase [Enzymatic activity/volume] in Serum or Plasma 436 U/L <40 H [facility] Hemolyzed Urea nitrogen [Mass/volume] in Serum or Plasma 2 mg/dL 6-20 L [facility] Osmolality of Serum or Plasma by calculation 272 mosm/kg 275-300 L [facility] Creatinine/Urea nitrogen [Mass Ratio] in Serum or Plasma 7 [facility] Bicarbonate [Moles/volume] in Serum 26 mmol/L 22-29 [facility] Alanine aminotransferase [Enzymatic activity/volume] in Seru m or Plasma 85 U/L <41 H [facility] Anion gap 3 in Serum or Plasma 14 mmol/L 8-15 [facility] Glomerular filtration rate/1.73 sq M pre dicted among non-blacks [Volume Rate/Area] in Serum or Plasma by Creatinine-based formula (MDRD) >6 0 [facility] Glomerular filtration rate/1.73 sq M pre dicted among blacks [Volume Rate/Area] in Serum or Plasma by Creatinine-based formula (MDRD) >60 [facility] ID Date Data Source [id number] 04/25/2020 04:52:33 AM EDT [facility] Name Value Range Interpretation Code Description Data Beronica rce(s) Supporting Document(s) Phosphate [Mass/volume] in Serum or Plasma 2.6 mg/dL 2.5-4.5 [facility] ID Date Data Source [id number] 04/25/2020 04:52:33 AM [facility] Name Value Range Interpretation Code Description Data Beronica rce(s) Supporting Document(s) Troponin T.cardiac [Mass/volume] in Serum or Plasma <0.01 [facility] ID Date Data Source [id number] 04/25/2020 06:28:05 AM [facility] Name Value Range Interpretation Code Description Data Beronica rce(s) Supporting Document(s) Leukocytes [#/volume] in Blood by Automated count 3.9 10*3/uL 4-10 L [facility] Erythrocytes [#/volume] in Blood by Automated count 3.21 10*6/uL 4.6- 6.1 L [facility] Hemoglobin [Mass/volume] in Blood 11.9 g/dL 13.5-18 L [facility] Hematocrit [Volume Fraction] of Blood by Automated count 32.8 % 4 1-53 L [facility] Erythrocyte mean corpuscular volume [Entitic volume] b y Automated count 102.1 fL 80-96 H [facility] Erythrocyte mean corpuscular hemoglobin [Entitic mass] by Automated count 37.0 pg 27-33 H [facility] Erythrocyte mean corpuscular hemoglobin concentration [Mass/volume] by Automated count 36.2 g/dL 32.0-[facility].0 [facility] distribution width [Ratio] by Automated count 16.0 % 11.5-14.5 H [facility] Platelets [#/volume] in Blood by Automated count 63 10*3/uL 150-400 L [facility] Differential cell count method - Blood [facility] Neutrophils/100 leukocytes in Blood by Automated count 66 % [facility] Lymphocytes/100 leukocytes in Blood by Automated count 23 % [facility] Monocytes/100 leukocytes in Blood by Automated count 5 % [facility] Eosinophils/100 leukocytes in Blood by Automated count 1 % [facility] Basophils/100 leukocytes in Blood by Automated count 2 % [facility] Neutrophils [#/volume] in Blood by Automated count 2.57 10*3/uL 1.8-7 .0 [facility] Lymphocytes [#/volume] in Blood by Automated count 0.90 10*3/uL 1.2-4 .0 L [facility] Monocytes [#/volume] in Blood by Automated count 0.20 10*3/uL 0-0.8 [facility] Eosinophils [#/volume] in Blood by Automated count 0.04 10*3/uL 0-0.5 [facility] Basophils [#/volume] in Blood by Automated count 0.08 10*3/uL 0-0.2 [facility] Band form neutrophils/100 leukocytes in Blood by Manual count 3 % [facility] Band form neutrophils [#/volume] in Blood by Manual count 0.12 10*3 /uL 0-0.6 [facility] Macrocytes [Presence] in Blood by Light microscopy [facility] Target cells [Presence] in Blood by Light microscopy [facility] ID Date Data Source [id number] 04/25/2020 06:37:45 AM [facility] Value Range Interpretation Code Description Data Beronica rce(s) Supporting Document(s) Ferritin [Mass/volume] in Serum or Plasma 2328 ng/ml 30-400 H [facility] Confirmed ID Date Data Source [id number] 04/25/2020 06:37:45 AM [facility] Value Range Interpretation Code Description Data Beronica rce(s) Supporting Document(s) Magnesium [Mass/volume] in Serum or Plasma 1.1 mg/dL 1.6-2.6 L [facility] ID Date Data Source [id number] 04/25/2020 09:32:25 AM [facility] Value Range Interpretation Code Description Data Beronica rce(s) Supporting Document(s) Cobalamin (Vitamin B12) [Mass/volume] in Serum or Plasma 2 11-946 H [facility] ID Date Data Source [id number] 04/25/2020 09:32:25 AM [facility] Value Range Interpretation Code Description Data Beronica rce(s) Supporting Document(s) Iron [Mass/volume] in Serum or Plasma 114 ug/dl 59-158 [facility] Transferrin [Mass/volume] in Serum or Plasma 89 mg/dL 200-360 L [facility] Iron binding capacity [Mass/volume] in Serum or Plasma 124 ug/dl 228 -428 L [facility] Iron saturation [Mass Fraction] in Serum or Plasma 96.0 % 20-55 H [facility] ID Date Data Source [id number] 04/25/2020 09:12:34 AM EDT [facility] Name Value Range Interpretation Code Description Data Beronica rce(s) Supporting Document(s) Folate [Mass/volume] in Serum or Plasma 5.94 ng/mL >4.77 [facility] ID Date Data Source [id number] 04/25/2020 05:43:02 AM [facility] Name Value Range Interpretation Code Description Data Beronica rce(s) Supporting Document(s) Color of Urine [facility] Clarity of Urine [facility] Specific gravity of Urine by Refractometry automated 1.010 1.003 -1.030 [facility] pH of Urine by Automated test strip 6.0 5.0-8.0 [facility] Protein [Mass/volume] in Urine by Automated test strip Neg [facility] Glucose [Mass/volume] in Urine by Automated test strip Neg [facility] Ketones [Mass/volume] in Urine by Automated test strip 5 mg/dL Neg [facility] Bilirubin.total [Presence] in Urine by Automated test strip Negative [facility] False-positive results may occur with ce rtain food additives or medications. Hemoglobin [Presence] in Urine by Automated test strip Neg [facility] Leukocyte esterase [Presence] in Urine by Automated test strip Negative [facility] Nitrite [Presence] in Urine by Automated test strip Negati [facility] Leukocytes [#/area] in Urine sediment by Automated count 0 -5 [facility] Erythrocytes [#/area] in Urine sediment by Automated count 1 /HPF 0-3 [facility] Service comment [facility] Hyaline casts [#/area] in Urine sediment by Microscopy low p ower field 1 /LPF None [facility] ID Date Data Source [id number] 04/25/2020 04:45:32 AM [facility] Value Range Interpretation Code Description Data Beronica rce(s) Supporting Document(s) Lactate [Moles/volume] in Serum or Plasma 4.2 mmol/l 0.5-2.2 [facility] Results called to and read back by jewell cole [id number] RN @ [id number] 9.5.20 [id number] ID Date Data Source [id number] 04/25/2020 05:50:35 AM [facility] Service Cmnt XXX-Imp : NoneMicroorganism XXX Cult : 2019 nCoV Real-Time RT-PCR: NOT DETECTEDTest performed using [employer] Respiratory Panel. This test is only for use under Food and Drug Administration's Emergency Use Authorization.Additional information is available on the following FDA websites for health care providers and patients. https://www.fda.gov/media/459532/download , https://www.fda.gov/[place] tin/597685/downloadPolymerase chain reaction is NEGATIVE for Influenza A H1, H3 and 2009 H1 viruses, Influenza B virus, Respiratory syncytial virus, Human metapneumovirus, Parainfluenza virus 1,2,3 and 4, Adenovirus, Rhinovirus/ Enterovirus, Coronavirus HKU1, NL63, OC43 and 229E, Bordetella pertussis, B. parapertussis, Mycoplasma pneumoniae and Chlamydia pneumoniae. Name Value Range Interpretation Code Description Data Beronica rce(s) Supporting Document(s) ID Date Data Source [id number] 04/25/2020 03:59:00 AM EDT [facility] Service Cmnt XXX-Imp : NoneMicroorganism XXX Cult : 2019 nCoV Real-Time RT-PCR: NOT DETECTEDTest performed using [employer] Respiratory Panel. This test is only for use under Food and Drug Administration's Emergency Use Authorization.Additional information is available on the following FDA websites for health care providers and patients. https://www.fda.gov/media/148164/download , https://www.fda.gov/[place] tin/267866/downloadPolymerase chain reaction is NEGATIVE for Influenza A H1, H3 and 2009 H1 viruses, Influenza B virus, Respiratory syncytial virus, Human metapneumovirus, Parainfluenza virus 1,2,3 and 4, Adenovirus, Rhinovirus/ Enterovirus, Coronavirus HKU1, NL63, OC43 and 229E, Bordetella pertussis, B. parapertussis, Mycoplasma pneumoniae and Chlamydia pneumoniae. Name Value Range Interpretation Code Description Data Beronica rce(s) Supporting Document(s) Microorganism identified in Unspecified specimen by [facility] This lab was ordered by [facility] and reported by [facility]. ID Date Data Source [id number] 11/04/2019 12:00:00 AM EDT eCW1 ([facility]) Name Value Range Interpretation Code Description Data Beronica rce(s) Supporting Document(s) Microalbumin/Creatinine [Mass Ratio] in Urine 74.6 CREATININE, URINE eCW1 ([facility]) Albumin/Creatinine [Mass Ratio] in Urine 53.3 MALB URINE SIEMENS eCW1 ([facility]) Microalbumin/Creatinine [Ratio] in Urine 71.4 0.0-30.0 MEJIA/CREAT RATIO eCW1 ([facility]) ID Date Data Source [id number] 11/04/2019 12:00:00 AM EDT eCW1 ([facility]) Name Value Range Interpretation Code Description Data Beronica rce(s) Supporting Document(s) Hemoglobin A1c/Hemoglobin.total in Blood 6.4 HEMOGLOBIN A1c eCW1 ([facility]) Procedure Social History Code Duration Value Status Description Data Source(s ) Smoking 09/23/2020 12:00:00 AM EST Former Smoker completed Former Smoker eCW1 ([facility]) Smoking 08/10/2020 12:00:00 AM EST Former Smoker completed Former Smoker eCW1 ([facility]) Smoking 08/10/2020 12:00:00 AM EST Former Smoker completed Former Smoker eCW1 ([facility]) Smoking 08/10/2020 12:00:00 AM EST Former Smoker completed Former Smoker eCW1 ([facility]) Smoking 07/27/2020 12:00:00 AM EST Former Smoker completed Former Smoker eCW1 ([facility]) Alcohol intake 07/08/2020 12:00:00 AM EST Current drinker of al cohol (finding) completed Current drinker of alcohol (finding) [facility] Tobacco use and exposure 07/08/2020 12:00:00 AM EST Never used co mpleted Never used [facility] Cigarette pack-years 07/08/2020 12:00:00 AM EST UNK completed [facility] Cigarettes smoked current (pack per day) - Reported 07/08/20 12:00:00 AM EST UNK completed [facility] Smoking 07/08/2020 12:00:00 AM EST Light tobacco smoker comple rosa Light tobacco smoker [facility] Smoking 06/08/2020 12:00:00 AM EDT Former Smoker completed Former Smoker eCW1 ([facility]) Smoking 06/08/2020 12:00:00 AM EDT Former Smoker completed Former Smoker eCW1 ([facility]) Smoking 06/08/2020 12:00:00 AM EDT Former Smoker completed Former Smoker eCW1 ([facility]) Smoking 04/30/2020 12:00:00 PM EDT Ex-smoker (finding) completed Former Smoker NETSMART ([facility]) Alcohol intake 04/26/2020 12:00:00 AM EDT Current drinker of al cohol (finding) completed Current drinker of alcohol (finding) [facility] Smoking 02/07/2020 12:00:00 AM EDT Former Smoker completed Former Smoker eCW1 ([facility]) Smoking 02/07/2020 12:00:00 AM EDT Former Smoker completed Former Smoker eCW1 ([facility]) Smoking 02/07/2020 12:00:00 AM EDT Former Smoker completed Former Smoker eCW1 ([facility]) Smoking 02/07/2020 12:00:00 AM EDT Former Smoker completed Former Smoker eCW1 ([facility]) Vital Signs ID Date Data Source UNK Name Value Range Interpretation Code Description Data Source(s) Diastolic blood pressure 80 mm[Hg] 80 mm[Hg] eCW1 ([facility]) Systolic blood pressure 126 mm[Hg] 126 mm[Hg] e CW1 ([facility]) Body temperature 97.6 [degF] 97.6 [degF] eCW1 ( [facility]) Respiratory rate 18 /min 18 /min eCW1 ([facility]) Heart rate 118 /min 118 /min eCW1 ([facility]) Body mass index (BMI) [Ratio] 23.25 kg/m2 23.25 kg/m2 W1 ([facility]) Body height 75 [in_i] 75 [in_i] eCW1 ([facility]) Body weight 186 [lb_av] 186 [lb_av] eCW1 ([facility]) Body surface area Derived from formula 2.09 m2 2.09 m2 MEDMAURILIO ([facility]) Body weight 82.272 kg 82.272 kg [facility] ([facility]) Driver 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 190 [lb_av] 190 [lb_av] MEDEN T ([facility]) Body mass index (BMI) [Ratio] 23.3 kg/m2 23.3 k g/m2 [facility] ([facility]) Body weight 181.38 [lb_av] 181.38 [lb_av] MEDEN T ([facility]) Body height 74 [in_i] 74 [in_i] [facility] ([facility]) 6'2" Diastolic blood pressure 74 mm[Hg] 74 mm[Hg] [facility] ([facility]) Systolic blood pressure 109 mm[Hg] 109 mm[Hg] [facility] ([facility]) Body surface area Derived from formula 2.15 m2 2.15 m2 [facility] ([facility]) Body weight 88.622 kg 88.622 kg [facility] ([facility]) Driver body weight 190 [lb_av] 190 [lb_av] MEDEN T ([facility]) Body mass index (BMI) [Ratio] 25.1 kg/m2 25.1 k g/m2 [facility] ([facility]) Body weight 195.38 [lb_av] 195.38 [lb_av] MEDEN T ([facility]) Body height 74 [in_i] 74 [in_i] [facility] ([facility]) 6'2" Diastolic blood pressure 69 mm[Hg] 69 mm[Hg] [facility] ([facility]) Systolic blood pressure 102 mm[Hg] 102 mm[Hg] [facility] Body surface area Derived from formula 2.16 m2 2.16 m2 [facility] ([facility]) Body weight 89.870 kg 89.870 kg [facility] ([facility]) Driver body weight 190 [lb_av] 190 [lb_av] MEDEN T ([facility]) Body mass index (BMI) [Ratio] 25.4 kg/m2 25.4 k g/m2 MEDENT ([facility]) Body weight 198.12 [lb_av] 198.12 [lb_av] MEDEN T ([facility]) Body height 74 [in_i] 74 [in_i] [facility] ([facility]) 6'2" Heart rate 98 /min 98 /min [facility] ([facility]) Diastolic blood pressure 65 mm[Hg] 65 mm[Hg] MEDENT ([facility]) Systolic blood pressure 96 mm[Hg] 96 mm[Hg] M EDENT ([facility]) Diastolic blood pressure 84 mm[Hg] 84 mm[Hg] eCW1 ([facility]) Systolic blood pressure 118 mm[Hg] 118 mm[Hg] e CW1 ([facility]) Body temperature 97.7 [degF] 97.7 [degF] eCW1 ( [facility]) Respiratory rate 19 /min 19 /min eCW1 ([facility]) Heart rate 101 /min 101 /min eCW1 ([facility]) Body mass index (BMI) [Ratio] 25.50 kg/m2 25.50 kg/m2 W1 ([facility]) Body height 75 [in_i] 75 [in_i] eCW1 ([facility]) Body weight 204 [lb_av] 204 [lb_av] eCW1 ([facility]) Driver body weight 190 [lb_av] 190 [lb_av] MEDEN T ([facility]) Body mass index (BMI) [Ratio] 26.7 kg/m2 26.7 k g/m2 MEDENT ([facility]) Body weight 208.00 [lb_av] 208.00 [lb_av] MEDEN T ([facility]) Body height 74 [in_i] 74 [in_i] [facility] ([facility]) 6'2" Diastolic blood pressure 68 mm[Hg] 68 mm[Hg] MEDENT ([facility]) Systolic blood pressure 100 mm[Hg] 100 mm[Hg] M EDENT ([facility], ) Body weight 94.349 kg 94.349 kg [facility] ([facility], ) Diastolic blood pressure 70 mm[Hg] 70 mm[Hg] eCW1 ([facility]) Systolic blood pressure 124 mm[Hg] 124 mm[Hg] e CW1 ([facility]) Body temperature 97.8 [degF] 97.8 [degF] eCW1 ( [facility]) Respiratory rate 18 /min 18 /min eCW1 ([facility]) Heart rate 80 /min 80 /min eCW1 ([facility]) Body mass index (BMI) [Ratio] 28.87 kg/m2 28.87 kg/m2 eCW1 ([facility]) Body height 75 [in_i] 75 [in_i] eCW1 ([facility]) Body weight 231 [lb_av] 231 [lb_av] eCW1 ([facility]) Diastolic blood pressure 86 mm[Hg] 86 mm[Hg] eCW1 ([facility]) Systolic blood pressure 122 mm[Hg] 122 mm[Hg] e CW1 ([facility]) Body temperature 99.0 [degF] 99.0 [degF] eCW1 ( [facility]) Respiratory rate 18 /min 18 /min eCW1 ([facility]) Heart rate 95 /min 95 /min eCW1 ([facility]) Body mass index (BMI) [Ratio] 29.00 kg/m2 29.00 kg/m2 W1 ([facility]) Body height 75 [in_us] 75 [in_us] eCW1 ([facility]) Body weight Measured 232.06 [lb_av] 232.06 [lb_ av] eCW1 ([facility]) Body mass index (BMI) [Ratio] 30.49 kg/m2 30.49 kg/m2 W1 ([facility]) Body height 75 [in_us] 75 [in_us] eCW1 ([facility]) Body weight Measured 244 [lb_av] 244 [lb_av] eC W1 ([facility]) Diastolic blood pressure 90 mm[Hg] 90 mm[Hg] eCW1 ([facility]) Systolic blood pressure 124 mm[Hg] 124 mm[Hg] e CW1 ([facility]) Body temperature 97.8 [degF] 97.8 [degF] eCW1 ( [facility]) Respiratory rate 20 /min 20 /min eCW1 ([facility]) Heart rate 96 /min 96 /min eCW1 ([facility]) Body mass index (BMI) [Ratio] 30.49 kg/m2 30.49 kg/m2 eCW1 ([facility]) Body height 75 [in_us] 75 [in_us] eCW1 ([facility]) Body weight Measured 244 [lb_av] 244 [lb_av] eC W1 ([facility]) ID Date Data Source [id number] 05/19/2020 09:54:53 AM EDT [facility] Name Value Range Interpretation Code Description Data Source(s) WEIGHT RECORDED 218 lb 218 lb [facility] WEIGHT RECORDED 177.6 lb 177.6 lb [facility] WEIGHT RECORDED 212.8 lb 212.8 lb [facility] Body height Measured 75 in 75 in [facility] TRANSFER FROM [facility] Patient Treatment Plan of Care Planned Activity Planned Date Details Description Data Source (s) Abdominal Binder/Elastic Large - 08/27/2020 12:00:00 AM EST eCW1 ([facility]) Abdominal Binder/Elastic Large - 08/27/2020 12:00:00 AM EST eCW1 ([facility]) Abdominal Binder/Elastic Large - 08/27/2020 12:00:00 AM EST eCW1 ([facility]) Amitriptyline Hydrochloride 25 MG Oral Tablet 08/10/2020 12:00:00 A M EST eCW1 ([facility]) Amitriptyline Hydrochloride 25 MG Oral Tablet 08/10/2020 12:00:00 A M EST eCW1 ([facility]) Amitriptyline Hydrochloride 25 MG Oral Tablet 08/10/2020 12:00:00 A M EST eCW1 ([facility]) Furosemide 40 MG Oral Tablet 07/27/2020 12:00:00 AM EST eCW1 ([facility]) Spironolactone 100 MG Oral Tablet 07/27/2020 12:00:00 AM EST eCW1 ([facility]) Ondansetron 4 MG Oral Tablet 07/27/2020 12:00:00 AM EST eCW1 ([facility]) Amitriptyline Hydrochloride 10 MG Oral Tablet 06/08/2020 12:00:00 A M EDT eCW1 ([facility]) Amitriptyline Hydrochloride 10 MG Oral Tablet 06/08/2020 12:00:00 A M EDT eCW1 ([facility]) Amitriptyline Hydrochloride 10 MG Oral Tablet 06/08/2020 12:00:00 A M EDT eCW1 ([facility]) Vitamin K 1 5 MG Oral Tablet 05/28/2020 12:00:00 AM EDT eCW1 ([facility]) Vitamin K 1 5 MG Oral Tablet 05/28/2020 12:00:00 AM EDT eCW1 ([facility]) Hydrocortisone 10 MG Oral Tablet 05/12/2020 12:00:00 AM [facility] Hydrocortisone 10 MG Oral Tablet 05/12/2020 12:00:00 AM [facility] Melatonin 3 MG Oral Tablet 05/11/2020 10:00:00 PM [facility] Promethazine Hydrochloride 25 MG/ML Injectable Solutio n 05/11/2020 12:10:26 PM [facility] Meclizine Hydrochloride 12.5 MG Oral Tablet 05/11/2020 12:10:20 PM [facility] Thiamine 100 MG Oral Tablet 05/11/2020 12:00:00 AM [facility] Hydrocortisone 5 MG Oral Tablet 05/11/2020 12:00:00 AM [facility] Hydrocortisone 10 MG Oral Tablet 05/11/2020 12:00:00 AM [facility] Folic Acid 1 MG Oral Tablet 05/11/2020 12:00:00 AM [facility] Calcium Carbonate 1250 MG / Cholecalciferol 200 UNT Or al Tablet 05/11/2020 12:00:00 AM [facility] Aluminum Hydroxide 40 MG/ML / Magnesium Hydroxide 40 MG/ML / Simethicone 4 MG/ML Oral Suspension 05/11/2020 12:00:00 AM [facility] Ondansetron 4 MG Oral Tablet 05/11/2020 12:00:00 AM [facility] Meclizine Hydrochloride 12.5 MG Oral Tablet 05/11/2020 12:00:00 AM [facility] Meclizine Hydrochloride 12.5 MG Oral Tablet 05/11/2020 12:00:00 AM [facility] Hydrocortisone 5 MG Oral Tablet 05/11/2020 12:00:00 AM [facility] Hydrocortisone 10 MG Oral Tablet 05/11/2020 12:00:00 AM [facility] Aluminum Hydroxide 40 MG/ML / Magnesium Hydroxide 40 MG/ML / Simethicone 4 MG/ML Oral Suspension 05/11[facility] Oral Tablet 05/11/2020 12:00:00 AM [facility] Hydrocortisone 5 MG Oral Tablet 05/11/2020 12:00:00 AM [facility] Oxycodone Hydrochloride 5 MG Oral Tablet 05/09/2020 01:13:10 PM [facility] Acetaminophen 325 MG / Hydrocodone Bitartrate 5 MG Ora l Tablet 05/06/2020 12:00:00 AM [facility] Thiamine 100 MG Oral Tablet 05/06/2020 12:00:00 AM [facility] Ondansetron 4 MG Oral Tablet 05/06/2020 12:00:00 AM [facility] Tab-A-Franki/Beta Carotene Oral Tablet 05/06/2020 12:00:00 AM [facility] Meclizine Hydrochloride 12.5 MG Oral Tablet 05/06/2020 12:00:00 AM [facility] Folic Acid 1 MG Oral Tablet 05/06/2020 12:00:00 AM [facility] Calcium Carbonate 1250 MG / Cholecalciferol 200 UNT Or al Tablet 05/06/2020 12:00:00 AM [facility] Dextromethorphan Hydrobromide 2 MG/ML / Guaifenesin 20 MG/ML Oral Suspension 04/28/2020 07:00:00 PM EDT [facility] sodium chloride (preservative free) 0.9 % flush 10 mL 04/27/2020 02:17:31 PM EDT [facility] [facility] dextrose 50 % IV solution 25 mL 04/25/2020 03:04:32 AM EDT [facility] Glucagon 1 MG Injection 04/25/2020 03:04:32 AM [facility] Glucose 0.417 MG/MG Oral Gel 04/25/2020 03:04:32 AM [facility] Meclizine Hydrochloride 25 MG Chewable Tablet 02/07/2020 12:00:00 A M EDT eCW1 ([facility]) Naltrexone hydrochloride 50 MG Oral Tablet 02/07/2020 12:00:00 AM E DT eCW1 ([facility]) doxycycline hyclate 50 MG Oral Capsule 01/01/2020 12:00:00 AM EDT eCW1 ([facility]) doxycycline hyclate 50 MG Oral Capsule 01/01/2020 12:00:00 AM EDT eCW1 ([facility]) Metformin hydrochloride 500 MG Oral Tablet 11/11/2019 12:00:00 AM E DT eCW1 ([facility]) Clindamycin 10 MG/ML Topical Lotion [Cleocin-T] 10/14/2019 12:00:00 AM EST eCW1 ([facility]) adapalene 1 MG/ML Topical Lotion [Differin] 10/14/2019 12:00:00 AM EST eCW1 ([facility]) doxycycline hyclate 100 MG Oral Capsule [facility] atorvastatin 20 MG Oral Tablet [facility] Metformin hydrochloride 500 MG Oral Tablet [facility]
[2020-10-14] MEDS ORDERED: ONDA-83 PO (13:34)
[2020-10-14] MEDS ORDERED: NAPR-849 PO (13:34)
[2020-10-14] MEDS ORDERED: DOXY1CAP60 PO (13:34)
[2020-10-14] MEDS ORDERED: FURO40TA2 PO (13:34)
[2020-10-14] MEDS ORDERED: SPIR100T3 PO (13:34)
[2020-10-14 14:47] LABS: BASO % 0.7 % (0.0-1.0); EOS % 0.7 % (0.0-3.0); HEMATOCRIT 37.1 % (42.0-52.0); HEMOGLOBIN 12.3 g/dl (13.5-17.5); LYMPH # 1.4 10^3/uL (1.5-5.0); LYMPH % 31.3 % (24.0-44.0); MEAN CORPUSCULAR HEMOGLOBIN 30.8 pg (27.0-33.0); MEAN CORPUSCULAR HGB CONC 33.2 g/dl (32.0-36.5); MONO # 0.4 10^3/uL (0.0-0.8); MONO % 8.8 % (2.0-8.0); NEUTROPHILS # 2.5 10^3/uL (1.5-8.5); NEUTROPHILS % 58.3 % (36.0-66.0); PLATELET COUNT, AUTOMATED 135 10^3/uL (150-450); RED BLOOD COUNT 3.99 10^6/uL (4.30-6.10); WHITE BLOOD COUNT 4.3 10^3/uL (4.0-10.0)
[2020-10-14 15:08] LABS: ALBUMIN 3.2 GM/DL (3.2-5.2); ALT/SGPT 39 U/L (12-78); BILIRUBIN,TOTAL 0.9 MG/DL (0.2-1.0); BLOOD UREA NITROGEN 13 MG/DL (7-18); CALCIUM LEVEL 8.9 MG/DL (8.5-10.1); CARBON DIOXIDE LEVEL 27 MEQ/L (21-32); CHLORIDE LEVEL 104 MEQ/L (98-107); CREATININE FOR GFR 0.76 MG/DL (0.70-1.30); GLOMERULAR FILTRATION RATE > 60.0 (>56); GLUCOSE, FASTING 89 MG/DL (70-100); POTASSIUM SERUM 3.7 MEQ/L (3.5-5.1); SODIUM LEVEL 140 MEQ/L (136-145); TOTAL PROTEIN 7.9 GM/DL (6.4-8.2)
[2020-10-14 15:10] LABS: ALBUMIN 3.4 GM/DL (3.2-5.2); ALT/SGPT 39 U/L (12-78); BILIRUBIN,DIRECT 0.5 MG/DL (0.0-0.2); BILIRUBIN,TOTAL 0.9 MG/DL (0.2-1.0); CK-MB VALUE MASS 1.9 NG/ML (<3.6); CPK CREATINE PHOSPHOKINASE 138 U/L (39-308); ETHYL ALCOHOL (ETHANOL) 0.279 % (0.000-0.010); MB/CK RELATIVE INDEX 1.38 (< OR =4); TOTAL PROTEIN 7.5 GM/DL (6.4-8.2); TROPONIN I < 0.02 NG/ML (< 0.10)
[2020-10-14] MEDS ORDERED: NS 1,000 ML IV ONE (15:30)
[2020-10-14 16:55] VITALS: BP 155/84
--- NOTE | 2020-10-15 09:31 | ECGEPIP ---
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
== END 2020-10-14 17:14 | disposition home or self-care (01) ==
LOC: MERGE 13:23 → M ED 13:23
DX: E86.0 Dehydration (principal); Z63.4 Disappearance and death of family member; Z87.19 Personal history of other diseases of the digestive system; G90.09 Other idiopathic peripheral autonomic neuropathy; F10.20 Alcohol dependence, uncomplicated; Z79.899 Other long term (current) drug therapy

== ENCOUNTER 2020-10-28 13:47 | Emergency (ER) | payer OTHER ==
[~2020-10-28] VITALS: Ht 190.5 cm; Wt 90.9 kg
[~2020-10-28 13:47] MED LIST changes: +DOXY1CAP60 PO; +NAPR-849 PO
[2020-10-28] MEDS ORDERED: NALT50TA4 PO (14:26)
[2020-10-28] MEDS ORDERED: NS 1,000 ML IV ONE (14:40)
[2020-10-28] MEDS ORDERED: MECLIZINE 25 MG TABLET PO ONE (14:40)
[2020-10-28 14:45] LABS: ALBUMIN 2.9 GM/DL (3.2-5.2); ALT/SGPT 28 U/L (12-78); BILIRUBIN,TOTAL 0.9 MG/DL (0.2-1.0); BLOOD UREA NITROGEN 8 MG/DL (7-18); CALCIUM LEVEL 8.1 MG/DL (8.5-10.1); CARBON DIOXIDE LEVEL 26 MEQ/L (21-32); CHLORIDE LEVEL 110 MEQ/L (98-107); CREATININE FOR GFR 0.63 MG/DL (0.70-1.30); GLOMERULAR FILTRATION RATE > 60.0 (>56); GLUCOSE, FASTING 113 MG/DL (70-100); POTASSIUM SERUM 3.6 MEQ/L (3.5-5.1); SODIUM LEVEL 142 MEQ/L (136-145); TOTAL PROTEIN 7.1 GM/DL (6.4-8.2)
--- NOTE | 2020-10-28 15:04 | REP ---
INDICATION: dizzy COMPARISON: 04/24/2020 TECHNIQUE: Axial noncontrast images from the skull base to the thoracic inlet with coronal reformations. This CT examination was performed using the following dose reduction techniques: Automated exposure control, adjustment of mA and/or kv according to the patient's size, and use of iterative reconstruction technique. FINDINGS: Age-related atrophy and microvascular ischemic changes are appreciated. The ventricles and sulci are symmetric. Max-white differentiation is maintained. There is no evidence for acute intracranial hemorrhage, mass/mass effect, pathology or infarction. No extra-axial fluid collection. Calvarium is intact. Partial opacification of the left ethmoid and maxillary sinuses noted and similar to 04/24/2020. IMPRESSION: Age related atrophy and microvascular ischemic changes. No acute intracranial hemorrhage, infarction, or mass/mass effect. Chronic sinus disease. <Electronically signed by Mukund Ba > 10/28/20 1500
[2020-10-28 15:29] LABS: ALBUMIN 2.9 GM/DL (3.2-5.2); BILIRUBIN,DIRECT 0.5 MG/DL (0.0-0.2); BILIRUBIN,TOTAL 0.9 MG/DL (0.2-1.0); ETHYL ALCOHOL (ETHANOL) 0.172 % (0.000-0.010); TOTAL PROTEIN 6.7 GM/DL (6.4-8.2)
[2020-10-28 15:33] LABS: BASO % 0.5 % (0.0-1.0); EOS % 0.3 % (0.0-3.0); HEMATOCRIT 34.9 % (42.0-52.0); HEMOGLOBIN 11.7 g/dl (13.5-17.5); LYMPH # 0.6 10^3/uL (1.5-5.0); LYMPH % 16.3 % (24.0-44.0); MEAN CORPUSCULAR HEMOGLOBIN 31.9 pg (27.0-33.0); MEAN CORPUSCULAR HGB CONC 33.5 g/dl (32.0-36.5); MEAN CORPUSCULAR VOLUME 95.1 fl (80.0-96.0); MONO # 0.4 10^3/uL (0.0-0.8); MONO % 10.2 % (2.0-8.0); NEUTROPHILS # 2.9 10^3/uL (1.5-8.5); NEUTROPHILS % 72.4 % (36.0-66.0); RED BLOOD COUNT 3.67 10^6/uL (4.30-6.10); WHITE BLOOD COUNT 3.9 10^3/uL (4.0-10.0)
[2020-10-28 16:31] LABS: PLATELET COUNT, AUTOMATED 82 10^3/uL (150-450)
[2020-10-28] MEDS ORDERED: MECL1TAB31 PO (18:08)
[2020-10-28] MEDS ORDERED: PANTOPRAZOLE 40MG TAB (PROTONIX) PO ONE (18:30)
[2020-10-28 18:56] VITALS: BP 140/92
--- NOTE | 2020-10-29 03:23 | ECGEPIP ---
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
== END 2020-10-28 19:11 | disposition home or self-care (01) ==
LOC: M ED 13:47 → EDBD 13:47 → M ED 19:11
DX: F10.129 Alcohol abuse with intoxication, unspecified (principal); H83.09 Labyrinthitis, unspecified ear; I10 Essential (primary) hypertension; Z86.19 Personal history of other infectious and parasitic diseases; F17.200 Nicotine dependence, unspecified, uncomplicated; Z79.899 Other long term (current) drug therapy

== ENCOUNTER 2020-11-12 18:49 | Emergency (ER) | payer OTHER ==
[~2020-11-12] VITALS: Ht 190.5 cm; Wt 87.3 kg
[~2020-11-12 18:49] MED LIST changes: +MECL1TAB31 PO; +NALT50TA4 PO
[2020-11-12] MEDS ORDERED: DOXY50CA PO (19:29)
[2020-11-12 20:14] LABS: VENOUS BASE EXCESS -4.5 (-2.0-2.0); VENOUS HCO3 20.5 MEQ/L (23.0-27.0); VENOUS O2 SATURATION 69.2 % (60.0-80.0); VENOUS PARTIAL PRESSURE CO2 37.7 mmHg (38.0-50.0); VENOUS PARTIAL PRESSURE O2 42.4 mmHg (30.0-50.0); VENOUS PH 7.353 UNITS (7.330-7.430); VENOUS STANDARD HCO3 20.1 MEQ/L; VENOUS TOTAL CO2 21.6 MEQ/L (24.0-28.0)
[2020-11-12 20:16] LABS: BASO % 0.5 % (0.0-1.0); HEMATOCRIT 37.7 % (42.0-52.0); HEMOGLOBIN 12.6 g/dl (13.5-17.5); LYMPH # 0.5 10^3/uL (1.5-5.0); LYMPH % 12.9 % (24.0-44.0); MEAN CORPUSCULAR HGB CONC 33.4 g/dl (32.0-36.5); MEAN CORPUSCULAR VOLUME 92.9 fl (80.0-96.0); MONO # 0.3 10^3/uL (0.0-0.8); MONO % 7.2 % (2.0-8.0); NEUTROPHILS # 3.3 10^3/uL (1.5-8.5); NEUTROPHILS % 78.9 % (36.0-66.0); RED BLOOD COUNT 4.06 10^6/uL (4.30-6.10); WHITE BLOOD COUNT 4.2 10^3/uL (4.0-10.0)
[2020-11-12 20:17] LABS: PLATELET COUNT, AUTOMATED 70 10^3/uL (150-450)
[2020-11-12 20:19] LABS: INR 1.77
[2020-11-12 20:20] LABS: PARTIAL THROMBOPLASTIN TIME 50.6 SECONDS (24.2-38.5)
[2020-11-12 20:43] LABS: ALBUMIN 3.2 GM/DL (3.2-5.2); ALT/SGPT 30 U/L (12-78); BILIRUBIN,DIRECT 1.2 MG/DL (0.0-0.2); BILIRUBIN,TOTAL 2.4 MG/DL (0.2-1.0); BLOOD UREA NITROGEN 9 MG/DL (7-18); CARBON DIOXIDE LEVEL 23 MEQ/L (21-32); CHLORIDE LEVEL 99 MEQ/L (98-107); CK-MB VALUE MASS 3.3 NG/ML (<3.6); CPK CREATINE PHOSPHOKINASE 203 U/L (39-308); CREATININE FOR GFR 0.78 MG/DL (0.70-1.30); ETHYL ALCOHOL (ETHANOL) 0.126 % (0.000-0.010); GLOMERULAR FILTRATION RATE > 60.0 (>56); GLUCOSE, FASTING 90 MG/DL (70-100); MB/CK RELATIVE INDEX 1.63 (< OR =4); POTASSIUM SERUM 3.6 MEQ/L (3.5-5.1); SODIUM LEVEL 133 MEQ/L (136-145); THYROID STIMULATING HORMONE 0.926 uIU/ML (0.358-3.740); TOTAL PROTEIN 7.5 GM/DL (6.4-8.2); TROPONIN I < 0.02 NG/ML (< 0.10)
--- NOTE | 2020-11-12 21:01 | REPVR ---
PROCEDURE INFORMATION: Exam: XR Chest Exam date and time: 11/12/2020 8:16 PM Age: 49 years old Clinical indication: Other: Syncope/near syncope; Additional info: Syncope/near-syncope TECHNIQUE: Imaging protocol: XR of the chest Views: 1 view. COMPARISON: CR Ribs uni W-PA CHEST ONLY 01/10/2020 2:21 PM FINDINGS: Lungs: Decreased lung volumes. No consolidation. Pleural spaces: Unremarkable. No pleural effusion. No pneumothorax. Heart/Mediastinum: Unremarkable. No cardiomegaly. Bones/joints: Unremarkable. IMPRESSION: No acute cardiopulmonary process. Electronically signed by: Dean Bell On 11/12/2020 21:01:21 PM
--- NOTE | 2020-11-12 21:04 | REPVR ---
PROCEDURE INFORMATION: Exam: CT Head Without Contrast Exam date and time: 11/12/2020 8:18 PM Age: 49 years old Clinical indication: Syncope and collapse TECHNIQUE: Imaging protocol: Computed tomography of the head without contrast. Radiation optimization: All CT scans at this facility use at least one of these dose optimization techniques: automated exposure control; mA and/or kV adjustment per patient size (includes targeted exams where dose is matched to clinical indication); or iterative reconstruction. COMPARISON: CT Head without contrast 10/28/2020 2:44 PM FINDINGS: Brain: Mild volume loss. No acute intracranial hemorrhage, midline shift or intracranial mass effect. No cerebral edema. Cerebral ventricles: No hydrocephalus. Bones/joints: Unremarkable. No acute fracture. Paranasal sinuses: Opacification of the visualized superior left maxillary sinus. Minimal scattered additional paranasal sinus disease. Mastoid air cells: Visualized mastoid air cells are well aerated. Soft tissues: Unremarkable. IMPRESSION: No acute intracranial abnormality. Electronically signed by: Dean Bell On 11/12/2020 21:04:16 PM
[2020-11-12] MEDS ORDERED: NS 2,620 ML in IV 1 EA IV ONE (21:30)
[2020-11-12 22:36] LABS: AMPHETAMINES LEVEL URINE NEGATIVE (NEGATIVE); BARBITURATES URINE NEGATIVE (NEGATIVE); BENZODIAZEPINES URINE NEGATIVE (NEGATIVE); CANNABINOIDS URINE NEGATIVE (NEGATIVE); COCAINE METABOLITE URINE NEGATIVE (NEGATIVE); METHADONE URINE NEGATIVE (NEGATIVE); OPIATES URINE NEGATIVE (NEGATIVE); PHENCYCLIDINE URINE NEGATIVE (NEGATIVE)
[2020-11-13] MEDS ORDERED: LORazepam 2 MG/ML VIAL IV STA (00:06)
--- NOTE | 2020-11-13 02:08 | ECGEPIP ---
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
[2020-11-13] MEDS ORDERED: OXAZEPAM 15 MG CAP PO ONE (03:00)
[2020-11-13] MEDS ORDERED: OXAZ30CA2 PO (03:16)
[2020-11-13 04:25] VITALS: BP 144/85
== END 2020-11-13 04:52 | disposition home or self-care (01) ==
LOC: EDBD 18:49 → M ED 18:49
DX: I95.1 Orthostatic hypotension (principal); E80.6 Other disorders of bilirubin metabolism; F10.20 Alcohol dependence, uncomplicated; R18.8 Other ascites; F41.1 Generalized anxiety disorder; F32.9 Major depressive disorder, single episode, unspecified; F12.10 Cannabis abuse, uncomplicated; Z79.899 Other long term (current) drug therapy
CPT/HCPCS: 70450; 71045; 80048; 80076; 80307; 82077; 82140; 82550; 82553; 82803; 83605; 84443; 85025; 85049; 85055; 85610; 85730; 93005; 93041; 96360; 96361; 96374; 99285; J2060